=== PATIENT | female | born 1940 | race Hispanic/Latino ===

== ENCOUNTER 2016-11-12 12:09 | Inpatient (IN) | payer MEDICARE, BC ==
--- NOTE | 2016-11-12 12:35 | ED PDOC ---
HPI: SOB/CHF/COPD Time Seen by Provider: 11/12/16 12:15 Chief Complaint (Nursing): Shortness Of Breath Chief Complaint (Provider): shortness of breath History Per: Patient History/Exam Limitations: no limitations Onset/Duration Of Symptoms: Days Additional Complaint(s): Beverly Copeland is a 76 year old female, with a previous medical history of CAD , COPD and diabetes, who presents to the ED with complaints of shortness of breath on exertion associated with easy fatigue worsening over the past few days. Patient denies any coughin, leg pain/swelling, palpitation or chest pain. PMD: Liz Vazquez MD Past Medical History Reviewed: Historical Data, Nursing Documentation, Vital Signs Vital Signs: Last Vital Signs Temp 98.4 F 11/12/16 12:12 Pulse 114 H 11/12/16 12:12 Resp 18 11/12/16 12:12 BP 113/74 11/12/16 12:12 Pulse Ox 98 11/12/16 12:37 - Medical History PMH: CAD, COPD, Diabetes, HTN - Surgical History Surgical History: CABG, Coronary Stent - Family History Family History: States: Unknown Family Hx - Home Medications Home Medications: Ambulatory Orders Medication Instructions Recorded Moxifloxacin Hydrochloride [Avelox] 400 mg PO DAILY #7 tab 11/11/14 - Allergies Allergies/Adverse Reactions: Allergies Allergy/AdvReac Type Severity Reaction Status Date / Time No Known Allergies Allergy Verified 11/11/14 10:33 Review of Systems ROS Statement: Except As Marked, All Systems Reviewed And Found Negative Cardiovascular: Negative for: Chest Pain, Palpitations Respiratory: Positive for: SOB with Exertion. Negative for: Cough Musculoskeletal: Negative for: Leg Pain Physical Exam - Reviewed Nursing Documentation Reviewed: Yes Vital Signs Reviewed: Yes - Physical Exam Appears: Positive for: Well, Non-toxic, No Acute Distress Head Exam: Positive for: ATRAUMATIC, NORMAL INSPECTION, NORMOCEPHALIC Skin: Positive for: Normal Color, Warm, DRY Eye Exam: Positive for: EOMI, Normal appearance, PERRL ENT: Positive for: Normal ENT Inspection Neck: Positive for: Normal, Painless ROM Cardiovascular/Chest: Positive for: Irregularly Irregular Respiratory: Positive for: Rales (bases bilaterally ). Negative for: Accessory Muscle Use, Crackles, Rhonchi, Wheezing, Respiratory Distress Gastrointestinal/Abdominal: Positive for: Normal Exam, Bowel Sounds, Soft Back: Positive for: Normal Inspection Extremity: Positive for: Normal ROM Neurologic/Psych: Positive for: Alert, Oriented - ECG O2 Sat by Pulse Oximetry: 98 (RA) Pulse Ox Interpretation: Normal Medical Decision Making Medical Decision Making: Initial Plan: * PT * Troponin I * labs * PROBNP * EKG * urine dipstick * reevaluation Scribe Attestation: Documented by Cherry Rosen, acting as a scribe for Serge Ashley MD. Provider Scribe Attestation: All medical record entries made by the Scribe were at my direction and personally dictated by me. I have reviewed the chart and agree that the record accurately reflects my personal performance of the history, physical exam, medical decision making, and the department course for this patient. I have also personally directed, reviewed, and agree with the discharge instructions and disposition. Disposition - Clinical Impression Clinical Impression: Atrial fibrillation - Patient ED Disposition Is Patient to be Admitted: Yes - Disposition Disposition Time: 12:53 Condition: FAIR Forms: [employer]zuk[employer] (Telugu) - Pt Status Changed To: Hospital Disposition Of: Inpatient - Admit Certification Admit to Inpatient:: After my assessment, the patient will require hospitalization for at least two midnights. This is because of the severity of symptoms shown, intensity of services needed, and/or the medical risk in this patient being treated as an outpatient. - POA Present On Arrival: None
[2016-11-12 13:00] LABS: BASO % 0.7 % (0.0-2.0); EOS # 0.1 K/uL (0.0-0.7); EOS % 1.5 % (0.0-4.0); HEMOGLOBIN 8.3 g/dL (12.0-16.0); LYMPH # 0.7 K/uL (1.0-4.3); LYMPH % 19.7 % (20.0-40.0); MEAN CELL VOLUME 70.7 fl (81.0-99.0); MEAN CORPUSCULAR HEMOGLOBIN 22.9 pg (27.0-31.0); MEAN CORPUSCULAR HGB CONC 32.4 g/dL (33.0-37.0); MEAN PLATELET VOLUME 9.9 fl (7.2-11.7); MONO # 0.4 K/uL (0.0-0.8); MONO % 12.7 % (0.0-10.0); NEUT # 2.3 K/uL (1.8-7.0); NEUT % 65.4 % (50.0-75.0); NRBC % 0.1 % (0.0-0.0); RBC 3.61 Mil/uL (3.80-5.20); RED CELL DISTRIBUTION WIDTH 17.7 % (11.5-14.5); WHITE BLOOD COUNT 3.5 K/uL (4.8-10.8)
[2016-11-12 13:20] LABS: INR 1.1 (0.9-1.2); PROTHROMBIN TIME 12.4 Seconds (9.8-13.1)
--- NOTE | 2016-11-12 13:21 | CP.PCM.HP ---
History of Present Illness - History of Present Illness History of Present Illness: this 76-year-old female, has come to the emergency room complaining of extreme fatigability and shortness of breath on minimal exertion. She has been a hypertensive and diabetic for more than 20 years and required coronary bypass graft surgery in April 2001. The patient has had chronic exogenous obesity and severe lower back pain. She has taken oral anti-and diabetes as well as oral antihypertensives and an aspirin as well as thyroid replacement. The patient denies any episode of chest pain or pedal edema. She denies any palpitations. On arrival in the emergency room she was found to be in atrial fibrillation with a heart rate of 100 bpm. She was also found to be pale. The patient denies any Elva or murray rectal bleeding. She has no history of peptic ulcer disease. Physical examination shows a pleasant middle aged slightly overweight female quite alert awake and oriented. She was afebrile with a pulse rate of 108 bpm irregularly irregular. Her blood pressure was 124/74 mmHg Her pedal pulses were well felt and there were no carotid bruits. A scar of sternotomy was evident. Her extremities were warm there was no central or peripheral cyanosis or clubbing or icterus. She had mild degree of pallor. The apex was not palpable the first and second heart sounds were normal there was no murmur or gallop there were no rales. Her abdomen was soft liver and spleen are not palpable. A rectal examination was deferred. Her electro-cardiogram showed atrial fibrillation and otherwise normal pattern. Review off her echocardiogram from June 2015 showed preserved left ventricular systolic function. Her labs showed a hemoglobin of 8.3 g with microcytic and hypochromic picture The impression at this time was newly discovered atrial fibrillation in a patient with known coronary artery disease with status post coronary bypass graft surgery. Diabetes and hypertension with a history of hypothyroidism. Microcytic hypochromic anemia suggestive of possible blood loss and iron deficiency possibly related to aspirin use. The patient will be hospitalized and workup will be carried out to evaluate her for the cause of iron deficiency. Stool for ocular blood has been requested a GI evaluation will be requested. Thyroid profile has been requested particularly in light of the fact that she has had atrial fibrillation and significant weight loss. Present on Admission - Present on Admission Any Indicators Present on Admission: No Past Patient History - Past Social History Smoking Status: Never Smoked - CARDIAC Hx Hypertension: Yes - PULMONARY Hx Chronic Obstructive Pulmonary Disease (COPD): Yes - PSYCHIATRIC Hx Substance Use: No - SURGICAL HISTORY Hx Coronary Artery Bypass Graft: Yes Hx Coronary Stent: Yes - ANESTHESIA Hx Anesthesia: Yes Hx Anesthesia Reactions: No Meds Allergies/Adverse Reactions: Allergies Allergy/AdvReac Type Severity Reaction Status Date / Time No Known Allergies Allergy Verified 11/11/14 10:33 Results - Vital Signs Recent Vital Signs: Last Vital Signs Temp 98.4 F 11/12/16 12:12 Pulse 114 H 11/12/16 12:12 Resp 18 11/12/16 12:12 BP 113/74 11/12/16 12:12 Pulse Ox 98 11/12/16 12:53 - Labs Result Diagrams: 11/12/16 12:50 Labs: Laboratory Results - last 24 hr 11/12/16 12:50 WBC 3.5 L D RBC 3.61 L Hgb 8.3 L Hct 25.5 L MCV 70.7 L D MCH 22.9 L MCHC 32.4 L RDW 17.7 H Plt Count 135 MPV 9.9 Neut % (Auto) 65.4 Lymph % (Auto) 19.7 L [place] % (Auto) 12.7 H Eos % (Auto) 1.5 Baso % (Auto) 0.7 Neut # 2.3 Lymph # 0.7 L [place] # 0.4 Eos # 0.1 Baso # 0.0
[2016-11-12 14:01] LABS: ALB/GLOB RATIO 1.6 (1.0-2.1); ALT/SGPT 34 U/L (9-52); AST/SGOT 29 U/L (14-36); BLOOD UREA NITROGEN 12 mg/dl (7-17); CALCIUM 9.5 mg/dL (8.4-10.2); GFR AFRICAN-AMERICAN 53; GFR NON-AFRICAN AMERICAN 44
[2016-11-12 14:12] LABS: B-TYPE NATRIURETIC PEPTIDE 1490 pg/ml (0-900)
[2016-11-12 14:16] LABS: T4 9.86 ug/dl (5.5-11.0)
[2016-11-12] MEDS ORDERED: Potassium Chloride 20 mEq ER Tab PO ONE ×2 (14:20→14:29)
[2016-11-12 14:30] LABS: T3 0.697 nmol/L (1.49-2.60)
[2016-11-13 08:26] LABS: BLOOD UREA NITROGEN 10 mg/dl (7-17); CALCIUM 9.2 mg/dL (8.4-10.2); GFR AFRICAN-AMERICAN > 60; GFR NON-AFRICAN AMERICAN 54
[2016-11-13 08:46] LABS: MEAN CELL VOLUME 70.2 fl (81.0-99.0); MEAN CORPUSCULAR HEMOGLOBIN 23.4 pg (27.0-31.0); MEAN CORPUSCULAR HGB CONC 33.3 g/dL (33.0-37.0); RBC 3.43 Mil/uL (3.80-5.20); RED CELL DISTRIBUTION WIDTH 17.5 % (11.5-14.5); WHITE BLOOD COUNT 3.8 K/uL (4.8-10.8)
[2016-11-13] MEDS ORDERED: LOSARTAN PO SCH (09:00)
[2016-11-13] MEDS ORDERED: HYDROCHLOROTHIAZIDE PO SCH (09:00)
[2016-11-13] MEDS ORDERED: HCTZ/Losartan 12.5/50 Tab PO SCH (09:00)
[2016-11-13] MEDS: HCTZ/Losartan 12.5/50 Tab PO SCH (09:08)
[2016-11-13] MEDS ORDERED: Potassium Chloride 20 mEq ER Tab PO ONE (12:15)
--- NOTE | 2016-11-13 12:25 | CP.PCM.PN ---
Subjective - Date & Time of Evaluation Date of Evaluation: 11/13/16 Time of Evaluation: 11:50 - Subjective Subjective: Generally feeling okay Walks to BR and back without any difficulty Telemetry shows HR of 100-120 BPM (A Fib) BP 126/70 mm Hg Had a run of nonsustained VT of 10 mo at 120 BPM (K+ was 3.4 mEq/L) Labs show Hb 8 Gms ( Microcytic, hypochromic) Labs 0n 6/20 showed Hb 12.5 gms (Normocytic) Now WBC and PLTLETs are reduced too Stool OB (Neg first samle) Await iron studies and Retic count Serum B12 requested metoprolol for rate control and Echo tomorrow Objective - Vital Signs/Intake and Output Vital Signs (last 24 hours): Temp Pulse Resp BP Pulse Ox 98.3 F 117 H 18 124/74 96 11/13/16 10:00 11/13/16 10:00 11/13/16 10:00 11/13/16 10:00 11/13/16 10:00 - Medications Medications: Current Medications Amlodipine Besylate (Norvasc) 5 mg PO DAILY [facility] Last Admin: 11/13/16 09:04 Dose: 5 mg Atorvastatin Calcium (Lipitor) 10 mg PO HS [facility] Last Admin: 11/12/16 21:58 Dose: 10 mg Glyburide (Micronase) 5 mg PO DAILY [facility] Last Admin: 11/13/16 09:03 Dose: 5 mg HCTZ/Losartan Potassium (Hyzaar 12.5 Mg-50 Mg) 2 tab PO DAILY [facility] Last Admin: 11/13/16 09:08 Dose: 2 tab Metoprolol Tartrate (Lopressor) 25 mg PO Q12 [facility] Pioglitazone HCl (Actos) 30 mg PO DAILY [facility] Last Admin: 11/13/16 09:03 Dose: 30 mg Sitagliptin Phosphate (Januvia) 100 mg PO DAILY [facility] Last Admin: 11/13/16 09:04 Dose: 100 mg - Labs Labs: 11/13/16 07:00 11/13/16 07:00 PT 12.4 Seconds (9.8-13.1) 11/12/16 12:50 INR 1.1 (0.9-1.2) 11/12/16 12:50
[2016-11-13 12:42] LABS: IRON 29 ug/dL (37-170)
[2016-11-13 12:46] LABS: % IRON SATURATION 10 % (20-55); TOTAL IRON BINDING CAPACITY 284 ug/dL (250-450)
--- NOTE | 2016-11-13 13:17 | CARD ---
APPROVED REPORT EKG Measurement Heart [id number] <Conclusion> Atrial fibrillation Nonspecific ST abnormality Abnormal ECG
--- NOTE | 2016-11-14 07:46 | CP.PCM.PN ---
Subjective - Date & Time of Evaluation Date of Evaluation: 11/14/16 Time of Evaluation: 07:40 - Subjective Subjective: Has no symptoms, ( Pt mostly room confined) HR 80-100 BPM (A Fib) BP 126/74 mm Hg No rales, no gallop JVP flat Low Fe with low Fe saturation and Microcytosis point to Fe deficiency S B12 level normal Elevated Retic count points to normal marrow response One stool sample was -ve for traces of blood (addl samples requested) GI consult requested Objective - Vital Signs/Intake and Output Vital Signs (last 24 hours): Temp Pulse Resp BP Pulse Ox 98.6 F 96 H 18 107/69 94 L 11/14/16 04:52 11/14/16 04:52 11/14/16 04:52 11/14/16 04:52 11/14/16 04:52 - Medications Medications: Current Medications Amlodipine Besylate (Norvasc) 5 mg PO DAILY [facility] Last Admin: 11/13/16 09:04 Dose: 5 mg Atorvastatin Calcium (Lipitor) 10 mg PO HS [facility] Last Admin: 11/13/16 21:25 Dose: 10 mg Glyburide (Micronase) 5 mg PO DAILY [facility] Last Admin: 11/13/16 09:03 Dose: 5 mg HCTZ/Losartan Potassium (Hyzaar 12.5 Mg-50 Mg) 2 tab PO DAILY [facility] Last Admin: 11/13/16 09:08 Dose: 2 tab Metoprolol Tartrate (Lopressor) 25 mg PO Q12 [facility] Last Admin: 11/13/16 21:25 Dose: 25 mg Pioglitazone HCl (Actos) 30 mg PO DAILY [facility] Last Admin: 11/13/16 09:03 Dose: 30 mg Sitagliptin Phosphate (Januvia) 100 mg PO DAILY [facility] Last Admin: 11/13/16 09:04 Dose: 100 mg - Labs Labs: 11/13/16 07:00 11/13/16 07:00 PT 12.4 Seconds (9.8-13.1) 11/12/16 12:50 INR 1.1 (0.9-1.2) 11/12/16 12:50
[2016-11-14] MEDS: HCTZ/Losartan 12.5/50 Tab PO SCH (09:36)
[2016-11-14] MEDS ORDERED: Chlorhexidine Gluconate 1 APPL/PKT TP ONE (11:12)
--- NOTE | 2016-11-14 11:14 | CP.PCM.CON ---
History of Present Illness - History of Present Illness History of Present Illness: Patient is known to me from the outpatient setting. She is a former cigarette smoker with a diagnosis of COPD, and she also has JENNIFER for which a nCPAP has been prescribed. She has multiple other comorbidities which are all managed medically.She has undergone CABG in the remote past and recently has been complaining of increased SIFUENTES. She was referred to the emergency room where she was found to have new onset atrial fibrillation, but was also found to have a hemoglobin <8.5Gm. She had a CBC done one month prior which was normal at that time. She denies any abdominal pain, nausea, vomiting, melena or hematochezia. She does admit to early satiety which is a new finding. Her CXR does not show any consolidations or effusions at this time. She is presently awaiting further GI evaluation into her microcytic/hypochromic anemia. Past Patient History - Past Social History Smoking Status: Never Smoked - CARDIAC Hx Cardiac Disorders: Yes - PULMONARY Hx Chronic Obstructive Pulmonary Disease (COPD): Yes - HEMATOLOGICAL/ONCOLOGICAL Hx AIDS: No Hx Human Immunodeficiency Virus (HIV): No - MUSCULOSKELETAL/RHEUMATOLOGICAL Hx Falls: No - PSYCHIATRIC Hx Substance Use: No - SURGICAL HISTORY Hx Coronary Artery Bypass Graft: Yes Hx Coronary Stent: Yes - ANESTHESIA Hx Anesthesia: Yes Hx Anesthesia Reactions: No Meds Allergies/Adverse Reactions: Allergies Allergy/AdvReac Type Severity Reaction Status Date / Time No Known Allergies Allergy Verified 11/11/14 10:33 - Medications Medications: Current Medications Amlodipine Besylate (Norvasc) 5 mg PO DAILY [facility] Last Admin: 11/14/16 09:35 Dose: 5 mg Atorvastatin Calcium (Lipitor) 10 mg PO HS [facility] Last Admin: 11/13/16 21:25 Dose: 10 mg Glyburide (Micronase) 5 mg PO DAILY [facility] Last Admin: 11/14/16 09:35 Dose: 5 mg HCTZ/Losartan Potassium (Hyzaar 12.5 Mg-50 Mg) 2 tab PO DAILY [facility] Last Admin: 11/14/16 09:36 Dose: 2 tab Metoprolol Tartrate (Lopressor) 25 mg PO Q12 [facility] Last Admin: 11/14/16 09:35 Dose: 25 mg Pioglitazone HCl (Actos) 30 mg PO DAILY [facility] Last Admin: 11/14/16 09:35 Dose: 30 mg Sitagliptin Phosphate (Januvia) 100 mg PO DAILY [facility] Last Admin: 11/14/16 09:36 Dose: 100 mg Results - Vital Signs Recent Vital Signs: Last Vital Signs Temp 98.2 F 11/14/16 10:00 Pulse 98 H 11/14/16 10:00 Resp 18 11/14/16 10:00 BP 112/72 11/14/16 10:00 Pulse Ox 97 11/14/16 10:00 - Labs Result Diagrams: 11/13/16 07:00 11/13/16 07:00 Labs: Laboratory Results - last 24 hr 11/13/16 11/13/16 11/13/16 11:51 12:00 12:00 Retic Count Cancelled POC Glucose (mg/dL) 181 H Iron 29 L TIBC 284 % Saturation 10 L Vitamin B12 Stool Occult Blood 11/13/16 11/13/16 11/13/16 12:00 15:46 15:51 Retic Count 2.4 H POC Glucose (mg/dL) 170 H Iron TIBC % Saturation Vitamin B12 772 Stool Occult Blood 11/13/16 11/13/16 11/14/16 17:12 21:00 05:11 Retic Count POC Glucose (mg/dL) 111 H 82 Iron TIBC % Saturation Vitamin B12 Stool Occult Blood Negative Assessment & Plan (1) Anemia Status: Acute Priority: High (2) 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
--- NOTE | 2016-11-14 12:46 | CP.PCM.CON ---
<Kaye Linn - Last Filed: 11/14/16 14:32> History of Present Illness - History of Present Illness History of Present Illness: GI Fellow PGY4 Consult Note This is a 76yF with a pmhx HTN, DM, CAD s/p CABG, COPD, JENNIFER on CPAP, HLD pw co weakness and SOB for a 3 weeks. Pt was found to have iron deficiency microcytic anemia in the ER and was also in A.Fib. Pt is on aspirin 325mg daily for many years and denies any Ibuprofen, Advil or Aleve use. Pt denies any prior hx of GI bleed. Pt had a normal Hgb one month prior and Hgb now is 8.0. No reported melena, hematochezia, hemetemesis. Pt report that over the last year she has had 14pound unintentional weight loss due to indigestion, heartburn, early satiety and at times episodes of vomiting but denies any abdominal or epigastric pain. Pt never had an EGD but has had routine colonoscopy last one was done last year at [facility], per pt only hemorrhoids and benign polyps. ROS: A 12pt ROS was obtained and was negative except as above PmHX: As stated in HPI PsHx: CABG 2001, Colonoscopy FHx: Negative for colon cancer SHx: Negative for alcohol or illicit drugs, former tobacco use Past Patient History - Past Social History Smoking Status: Never Smoked - CARDIAC Hx Cardiac Disorders: Yes - PULMONARY Hx Chronic Obstructive Pulmonary Disease (COPD): Yes - HEMATOLOGICAL/ONCOLOGICAL Hx AIDS: No Hx Human Immunodeficiency Virus (HIV): No - MUSCULOSKELETAL/RHEUMATOLOGICAL Hx Falls: No - PSYCHIATRIC Hx Substance Use: No - SURGICAL HISTORY Hx Coronary Artery Bypass Graft: Yes Hx Coronary Stent: Yes - ANESTHESIA Hx Anesthesia: Yes Hx Anesthesia Reactions: No Meds Allergies/Adverse Reactions: Allergies Allergy/AdvReac Type Severity Reaction Status Date / Time No Known Allergies Allergy Verified 11/11/14 10:33 - Medications Medications: Current Medications Amlodipine Besylate (Norvasc) 5 mg PO DAILY [facility] Last Admin: 11/14/16 09:35 Dose: 5 mg Atorvastatin Calcium (Lipitor) 10 mg PO HS [facility] Last Admin: 11/13/16 21:25 Dose: 10 mg Bisacodyl (Dulcolax) 10 mg PO ONCE ONE Stop: 11/14/16 19:01 Glyburide (Micronase) 5 mg PO DAILY [facility] Last Admin: 11/14/16 09:35 Dose: 5 mg HCTZ/Losartan Potassium (Hyzaar 12.5 Mg-50 Mg) 2 tab PO DAILY [facility] Last Admin: 11/14/16 09:36 Dose: 2 tab Metoprolol Tartrate (Lopressor) 25 mg PO Q12 [facility] Last Admin: 11/14/16 09:35 Dose: 25 mg Pioglitazone HCl (Actos) 30 mg PO DAILY [facility] Last Admin: 11/14/16 09:35 Dose: 30 mg Polyethylene Glycol/Electrolytes (Golytely) 4,000 ml PO ONCE ONE Stop: 11/14/16 13:01 Last Admin: 11/14/16 12:22 Dose: 4,000 ml Sitagliptin Phosphate (Januvia) 100 mg PO DAILY [facility] Last Admin: 11/14/16 09:36 Dose: 100 mg Physical Exam - Constitutional Appears: Well, Non-toxic, No Acute Distress - Head Exam Head Exam: ATRAUMATIC, NORMAL INSPECTION, NORMOCEPHALIC - Eye Exam Eye Exam: EOMI, Normal appearance, PERRL Pupil Exam: PERRL - ENT Exam ENT Exam: Mucous Membranes Moist, Normal Exam - Neck Exam Neck exam: Positive for: Full Rom, Normal Inspection - Respiratory Exam Respiratory Exam: Clear to Auscultation Bilateral, NORMAL BREATHING PATTERN - Cardiovascular Exam Cardiovascular Exam: Irregular Rhythm, +S1, +S2 - GI/Abdominal Exam GI & Abdominal Exam: Normal Bowel Sounds, Soft. absent: Organomegaly, Tenderness - Rectal Exam Additional comments: Brown stool - Back Exam Back exam: NORMAL INSPECTION - Neurological Exam Neurological exam: Alert, Oriented x3 - Psychiatric Exam Psychiatric exam: Normal Affect, Normal Mood - Skin Skin Exam: Dry, Intact, Pallor, Warm Results - Vital Signs Recent Vital Signs: Last Vital Signs Temp 97.9 F 11/14/16 12:00 Pulse 87 11/14/16 12:00 Resp 18 11/14/16 12:00 BP 101/60 11/14/16 12:00 Pulse Ox 97 11/14/16 12:00 - Labs Result Diagrams: 11/13/16 07:00 11/13/16 07:00 Labs: Laboratory Results - last 24 hr 11/13/16 11/13/16 11/13/16 12:00 15:46 15:51 POC Glucose (mg/dL) 170 H Iron 29 L TIBC 284 % Saturation 10 L Vitamin B12 772 Stool Occult Blood 11/13/16 11/13/16 11/14/16 17:12 21:00 05:11 POC Glucose (mg/dL) 111 H 82 Iron TIBC % Saturation Vitamin B12 Stool Occult Blood Negative 11/14/16 11:26 POC Glucose (mg/dL) 150 H Iron TIBC % Saturation Vitamin B12 Stool Occult Blood Assessment & Plan - Assessment and Plan (Free Text) Assessment: This is a 76yF pw co of weakness and SOB and was found to be in AFib and anemic with Hgb 8.3 on admission. 1. Microcytic Iron Deficiency Anemia r/o GI bleed 2. New onset Afib 3. HTN 4. CAD s/p CABG 5. COPD 6. JENNIFER Plan: -Anemia, Hgb 8.0, no active bleeding, on rectal exam light brown stool no melena or hematochezia, hemodynamically stable -Plan for EGD/Colonoscopy tomorrow, consent signed and in chart -Ordered clear liquid diet today, NPO after midnight -Golytely and Dulcolax today -Continue to hold aspirin or OAC at this time -Afib rate controlled on po metoprolol -Will continue to follow pt closely <Leilani Cobb MD - Last Filed: 11/14/16 19:36> Meds - Medications Medications: Current Medications Amlodipine Besylate (Norvasc) 5 mg PO DAILY [facility] Last Admin: 11/14/16 09:35 Dose: 5 mg Atorvastatin Calcium (Lipitor) 10 mg PO HS [facility] Last Admin: 11/13/16 21:25 Dose: 10 mg Glyburide (Micronase) 5 mg PO DAILY [facility] Last Admin: 11/14/16 09:35 Dose: 5 mg HCTZ/Losartan Potassium (Hyzaar 12.5 Mg-50 Mg) 2 tab PO DAILY [facility] Last Admin: 11/14/16 09:36 Dose: 2 tab Metoprolol Tartrate (Lopressor) 25 mg PO Q12 [facility] Last Admin: 11/14/16 09:35 Dose: 25 mg Pioglitazone HCl (Actos) 30 mg PO DAILY [facility] Last Admin: 11/14/16 09:35 Dose: 30 mg Sitagliptin Phosphate (Januvia) 100 mg PO DAILY [facility] Last Admin: 11/14/16 09:36 Dose: 100 mg Results - Vital Signs Recent Vital Signs: Last Vital Signs Temp 97.6 F 11/14/16 15:38 Pulse 95 H 11/14/16 15:38 Resp 20 11/14/16 15:38 BP 109/67 11/14/16 15:38 Pulse Ox 98 11/14/16 15:38 - Labs Result Diagrams: 11/13/16 07:00 11/13/16 07:00 Labs: Laboratory Results - last 24 hr 11/12/16 11/13/16 11/13/16 13:34 17:12 20:11 POC Glucose (mg/dL) Ferritin 107.0 Stool Occult Blood Negative Negative 11/13/16 11/14/16 11/14/16 21:00 05:11 11:26 POC Glucose (mg/dL) 111 H 82 150 H Ferritin Stool Occult Blood 11/14/16 16:12 POC Glucose (mg/dL) 106 Ferritin Stool Occult Blood Attending/Attestation - Attestation I have personally seen and examined this patient.: Yes I have fully participated in the care of the patient.: Yes I have reviewed all pertinent clinical information: Yes Notes (Text): 11/14/16 19:32 Patient seen with GI fellow on rounds. This is a 76 yr old F presenting with weakness and SOB and was found to be in AFib and new ponset iron deficiency microcytic anemia. History of CABG on high dose ASA daily. Denies dark stools, epigastric pain, rectal bleeding. Also states lost 14 lbs over course of last year and has early satiety. Will schedule bi directional luminal exam as inpatient due to above reasons and rule out malignancy and or ulcer. Clear liquid diet and start prep for EGD/ Colonoscopy in am. risks, benefits and alternatives explained to the patient. A fib is rate controlled. NPO past midnight
[2016-11-14] MEDS ORDERED: Peg-Electrolyte Oral Soln 4L (Golytely) PO ONE (13:00)
[2016-11-14] MEDS ORDERED: Bisacodyl 5mg EC Tab PO ONE ×3 (14:11→21:00)
--- NOTE | 2016-11-14 14:55 | CARD ---
APPROVED REPORT EKG Measurement Heart [id number] <Conclusion> Atrial fibrillation with rapid ventricular response Possible anterior infarct, age undetermined Abnormal ECG
--- NOTE | 2016-11-14 19:54 | CARD ---
APPROVED REPORT EXAM: Two-dimensional and M-mode echocardiogram with Doppler and color Doppler. Other Information Quality : GoodRhythm : Atrial Flutter INDICATION Atrial Fibrillation 2D DIMENSIONS IVSd0.91 (0.7-1.1cm)LVDd4.23 (3.9-5.9cm) LVOT Diameter1.72 (1.8-2.4cm)PWd0.61 (0.7-1.1cm) IVSs1.07 (0.8-1.2cm)LVDs3.39 (2.5-4.0cm) FS (%) 19.7 %PWs1.08 (0.8-1.2cm) M-Mode DIMENSIONS Left Atrium (MM)5.03 (2.5-4.0cm)IVSd0.79 (0.7-1.1cm) Aortic Root3.15 (2.2-3.7cm)LVDd5.44 (4.0-5.6cm) Aortic Cusp Exc.2.00 (1.5-2.0cm)PWd0.85 (0.7-1.1cm) IVSs0.82 cmFS (%) 20 % LVDs4.35 (2.0-3.8cm)PWs1.29 cm Mitral Valve E/A ratio0.0 TDI E/Lateral E'0.0E/Medial E'0.0 Pulmonary Valve PV Peak Ybaqowag88.1cm/s Tricuspid Valve TR Peak [id number]/sRAP [id number] Peak Gr.32mmHg [id number] LEFT VENTRICLE The left ventricle is normal size. There is normal left ventricular wall thickness. The left ventricular function is low normal. The left ventricular ejection fraction is 50% There is normal LV segmental wall motion. Not reported due to atrial fibrillation No left ventricle thrombus noted on this study. There is no ventricular septal defect visualized. There is no left ventricular aneurysm. There is no mass noted in the left ventricle. RIGHT VENTRICLE The right ventricle is normal size. There is normal right ventricular wall thickness. The right ventricular systolic function is normal. ATRIA The left atrium is severely dilated. The right atrium is moderately dilated. The interatrial septum is intact with no evidence for an atrial septal defect. AORTIC VALVE The aortic valve is moderately sclerotic. No aortic regurgitation is present. There is no aortic valvular stenosis. There is no aortic valvular vegetation. MITRAL VALVE Mitral annular calcification is moderate. There is no evidence of mitral valve prolapse. There is no mitral valve stenosis. Mitral regurgitation is mild to moderate. TRICUSPID VALVE The tricuspid valve is normal in structure and function. There is severe tricuspid regurgitation. Right ventricular systolic pressure is estimated at 40-50 mmHg. There is no tricuspid valve prolapse or vegetation. There is no tricuspid valve stenosis. PULMONIC VALVE The pulmonary valve is normal in structure and function. There is no pulmonic valvular regurgitation. There is no pulmonic valvular stenosis. GREAT VESSELS The aortic root is normal in size. The ascending aorta is normal in size. The IVC is normal in size and collapses >50% with inspiration. PERICARDIAL EFFUSION The pericardium appears normal. There is no pleural effusion. <Conclusion> Low Normal LV systolic function LVEF 50% Aortic Valve Sclerosis Mitral Annular Calcification Bi-atrial enlargement Mild to Moderate Mitral Regurgitation Severe Tricuspid Regurgitation with normal PAP
[2016-11-15 06:33] LABS: BASO % 1.2 % (0.0-2.0); EOS # 0.1 K/uL (0.0-0.7); EOS % 1.9 % (0.0-4.0); HEMOGLOBIN 8.1 g/dL (12.0-16.0); LYMPH # 0.8 K/uL (1.0-4.3); LYMPH % 19.9 % (20.0-40.0); MEAN CELL VOLUME 69.7 fl (81.0-99.0); MEAN CORPUSCULAR HGB CONC 32.9 g/dL (33.0-37.0); MEAN PLATELET VOLUME 9.4 fl (7.2-11.7); MONO # 0.5 K/uL (0.0-0.8); MONO % 12.3 % (0.0-10.0); NEUT # 2.5 K/uL (1.8-7.0); NEUT % 64.7 % (50.0-75.0); NRBC % 0.4 % (0.0-0.0); RBC 3.51 Mil/uL (3.80-5.20); RED CELL DISTRIBUTION WIDTH 17.3 % (11.5-14.5); WHITE BLOOD COUNT 3.8 K/uL (4.8-10.8)
[2016-11-15 06:40] LABS: ALB/GLOB RATIO 1.5 (1.0-2.1); ALBUMIN 3.6 g/dL (3.5-5.0); CALCIUM 8.9 mg/dL (8.4-10.2)
[2016-11-15 06:53] LABS: INR 1.1 (0.9-1.2); PROTHROMBIN TIME 12.3 Seconds (9.8-13.1)
--- NOTE | 2016-11-15 09:24 | CP.PCM.PN ---
Subjective - Date & Time of Evaluation Date of Evaluation: 11/15/16 Time of Evaluation: 09:15 - Subjective Subjective: Generally feeling okay ( Pt has been mostly room bound) HR 70-80 BPM BP 120/70 mm Hg Reviewed Echo images LV wall motion seems normal MR + TR +++ (On echo od 06/2015 , minor TR) PA syst pressure higher with IVC more dilated than in 06/2015. Will discuss with Dr. Vazquez Marked jump in Creatinin with bowel prep Will start hydration Objective - Vital Signs/Intake and Output Vital Signs (last 24 hours): Temp Pulse Resp BP Pulse Ox 98.3 F 96 H 18 100/62 96 11/15/16 08:00 11/15/16 08:00 11/15/16 08:00 11/15/16 08:00 11/15/16 08:00 - Medications Medications: Current Medications Amlodipine Besylate (Norvasc) 5 mg PO DAILY [facility] Last Admin: 11/14/16 09:35 Dose: 5 mg Atorvastatin Calcium (Lipitor) 10 mg PO HS [facility] Last Admin: 11/14/16 21:10 Dose: 10 mg Glyburide (Micronase) 5 mg PO DAILY [facility] Last Admin: 11/14/16 09:35 Dose: 5 mg HCTZ/Losartan Potassium (Hyzaar 12.5 Mg-50 Mg) 2 tab PO DAILY [facility] Last Admin: 11/14/16 09:36 Dose: 2 tab Metoprolol Tartrate (Lopressor) 25 mg PO Q12 [facility] Last Admin: 11/14/16 21:10 Dose: 25 mg Pioglitazone HCl (Actos) 30 mg PO DAILY [facility] Last Admin: 11/14/16 09:35 Dose: 30 mg Sitagliptin Phosphate (Januvia) 100 mg PO DAILY [facility] Last Admin: 11/14/16 09:36 Dose: 100 mg - Labs Labs: 11/15/16 05:15 11/15/16 05:15 PT 12.3 Seconds (9.8-13.1) 11/15/16 05:15 INR 1.1 (0.9-1.2) 11/15/16 05:15
[2016-11-15] MEDS: Sodium Chloride 0.9% 1,000 ML IV SCH (10:07)
[2016-11-15] MEDS: HCTZ/Losartan 12.5/50 Tab PO SCH (10:09)
--- NOTE | 2016-11-15 11:17 | CP.PCM.PN ---
Subjective - Date & Time of Evaluation Date of Evaluation: 11/15/16 Time of Evaluation: 11:14 - Subjective Subjective: Awaiting endoscopyPrepped overnight w/o any evidence of blood in BM's. Echocardiogram shows +++ tricuspid regurgitation with a borderline high eRVSP. I will request HR CT chest and VQ lung scan after initial problem of anemia has been rectified. She is comfortable at rest awaiting today's procedure. I will discuss with Dr Nunes. Objective - Vital Signs/Intake and Output Vital Signs (last 24 hours): Temp Pulse Resp BP Pulse Ox 98.3 F 102 H 18 118/68 96 11/15/16 08:00 11/15/16 10:08 11/15/16 08:00 11/15/16 10:08 11/15/16 08:00 Intake and Output: 11/14/16 11/15/16 23:59 11:59 Intake Total 1000 Balance 1000 - Medications Medications: Current Medications Amlodipine Besylate (Norvasc) 5 mg PO DAILY [facility] Last Admin: 11/15/16 10:08 Dose: 5 mg Atorvastatin Calcium (Lipitor) 10 mg PO HS [facility] Last Admin: 11/14/16 21:10 Dose: 10 mg Glyburide (Micronase) 5 mg PO DAILY [facility] Last Admin: 11/15/16 09:54 Dose: Not Given HCTZ/Losartan Potassium (Hyzaar 12.5 Mg-50 Mg) 2 tab PO DAILY [facility] Last Admin: 11/15/16 10:09 Dose: 2 tab Sodium Chloride (Sodium Chloride 0.9%) 1,000 mls @ 75 mls/hr IV .[id number] [facility] Stop: 11/16/16 09:26 Last Admin: 11/15/16 10:07 Dose: 75 mls/hr Metoprolol Tartrate (Lopressor) 25 mg PO Q12 [facility] Last Admin: 11/15/16 10:08 Dose: 25 mg Pioglitazone HCl (Actos) 30 mg PO DAILY [facility] Last Admin: 11/15/16 09:55 Dose: Not Given Sitagliptin Phosphate (Januvia) 100 mg PO DAILY [facility] Last Admin: 11/15/16 09:54 Dose: Not Given - Labs Labs: 11/15/16 05:15 11/15/16 05:15 PT 12.3 Seconds (9.8-13.1) 11/15/16 05:15 INR 1.1 (0.9-1.2) 11/15/16 05:15 Assessment and Plan (1) Anemia Status: Acute (2) 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 (3) Atrial fibrillation Status: Acute
[2016-11-15] MEDS ORDERED: Sodium Chloride 0.9% 1,000 ML IV ONE (13:53)
[2016-11-15] MEDS ORDERED: Propofol 10 mg/ml Inj (20 ML) ONE (13:55)
[2016-11-15] MEDS ORDERED: ePHEDrine 50 mg/ml Inj ONE (14:23)
[2016-11-16] MEDS: Sodium Chloride 0.9% 1,000 ML IV SCH (06:23)
[2016-11-16 06:35] LABS: HEMOGLOBIN 7.4 g/dL (12.0-16.0); MEAN CELL VOLUME 70.5 fl (81.0-99.0); MEAN CORPUSCULAR HEMOGLOBIN 22.6 pg (27.0-31.0); MEAN CORPUSCULAR HGB CONC 32.1 g/dL (33.0-37.0); RBC 3.28 Mil/uL (3.80-5.20); RED CELL DISTRIBUTION WIDTH 17.8 % (11.5-14.5); WHITE BLOOD COUNT 3.7 K/uL (4.8-10.8)
[2016-11-16 06:49] LABS: ALB/GLOB RATIO 1.5 (1.0-2.1); ALBUMIN 3.3 g/dL (3.5-5.0); CALCIUM 8.2 mg/dL (8.4-10.2)
[2016-11-16] MEDS: HCTZ/Losartan 12.5/50 Tab PO SCH (08:27)
[2016-11-16] MEDS ORDERED: Sodium Chloride 0.9% 1,000 ML IV SCH (09:24)
--- NOTE | 2016-11-16 09:39 | CP.PCM.PN ---
Subjective - Date & Time of Evaluation Date of Evaluation: 11/16/16 Time of Evaluation: 09:00 - Subjective Subjective: Has no new symptoms Endoscopy and colonoscopy findings were innocent No source of bleeding found A Fib at 80-90 BPM BP 126/70 mm Hg No signs of CHF Azotemia following bowel prep still persists after 24 hrs of IV hydration at 75ml/hr Will continue IV hydration at 50 ml/hr for another day (Pt advised to drink extrsa fluids) HB 7.5 gms (? after hydration) Mild degree of thrombocytopenia and leucocytopenia has been present since admission Hematologic eval requested today Have discussed Severe TR seen on echo not seen on echo of 06/[address] angio of chest will have to wait till azotemia resolves Objective - Vital Signs/Intake and Output Vital Signs (last 24 hours): Temp Pulse Resp BP Pulse Ox 98.0 F 92 H 18 119/68 97 11/16/16 08:00 11/16/16 08:28 11/16/16 08:00 11/16/16 08:28 11/16/16 08:00 - Medications Medications: Current Medications Amlodipine Besylate (Norvasc) 5 mg PO DAILY [facility] Last Admin: 11/16/16 08:28 Dose: 5 mg Atorvastatin Calcium (Lipitor) 10 mg PO HS [facility] Last Admin: 11/15/16 21:05 Dose: 10 mg Glyburide (Micronase) 5 mg PO DAILY [facility] Last Admin: 11/16/16 08:26 Dose: 5 mg HCTZ/Losartan Potassium (Hyzaar 12.5 Mg-50 Mg) 2 tab PO DAILY [facility] Last Admin: 11/16/16 08:27 Dose: 2 tab Metoprolol Tartrate (Lopressor) 25 mg PO Q12 [facility] Last Admin: 11/16/16 08:26 Dose: 25 mg Pioglitazone HCl (Actos) 30 mg PO DAILY [facility] Last Admin: 11/16/16 08:27 Dose: 30 mg Sitagliptin Phosphate (Januvia) 100 mg PO DAILY [facility] Last Admin: 11/16/16 08:27 Dose: 100 mg - Labs Labs: 11/16/16 05:20 11/16/16 05:20 PT 12.3 Seconds (9.8-13.1) 11/15/16 05:15 INR 1.1 (0.9-1.2) 11/15/16 05:15
--- NOTE | 2016-11-16 11:13 | CP.PCM.PN ---
<Kaye Linn - Last Filed: 11/16/16 13:06> Subjective - Date & Time of Evaluation Date of Evaluation: 11/16/16 Time of Evaluation: 10:00 - Subjective Subjective: GI Fellow PGY4 Progress Note Pt seen and evaluated at bedside, she reports feeling a little better since admission. No issues overnight, tolerated EGD/colonoscopy well. Pt continues to deny any signs of rectal bleeding, no hematochezia, melena, or hemtemesis. Discussed with pt the results of EGD/colonoscopy with no source of bleeding, no ulcers or angiodysplasia found on luminal exam. Recommended PPI use for gastritis and okay to resume Aspirin per our perspective. Pt denies CP, SOB or palpitations at this time. ROS: A 12pt ROS was obtained and was negative except as above. Objective - Vital Signs/Intake and Output Vital Signs (last 24 hours): Temp Pulse Resp BP Pulse Ox 98.0 F 92 H 18 119/68 97 11/16/16 08:00 11/16/16 08:28 11/16/16 08:00 11/16/16 08:28 11/16/16 08:00 - Medications Medications: Current Medications Amlodipine Besylate (Norvasc) 5 mg PO DAILY [facility] Last Admin: 11/16/16 08:28 Dose: 5 mg Atorvastatin Calcium (Lipitor) 10 mg PO HS [facility] Last Admin: 11/15/16 21:05 Dose: 10 mg Glyburide (Micronase) 5 mg PO DAILY [facility] Last Admin: 11/16/16 08:26 Dose: 5 mg HCTZ/Losartan Potassium (Hyzaar 12.5 Mg-50 Mg) 2 tab PO DAILY [facility] Last Admin: 11/16/16 08:27 Dose: 2 tab Metoprolol Tartrate (Lopressor) 25 mg PO Q12 [facility] Last Admin: 11/16/16 08:26 Dose: 25 mg Pantoprazole Sodium (Protonix Ec Tab) 40 mg PO DAILY [facility] Pioglitazone HCl (Actos) 30 mg PO DAILY [facility] Last Admin: 11/16/16 08:27 Dose: 30 mg Sitagliptin Phosphate (Januvia) 100 mg PO DAILY [facility] Last Admin: 11/16/16 08:27 Dose: 100 mg - Labs Labs: 11/16/16 05:20 11/16/16 05:20 PT 12.3 Seconds (9.8-13.1) 11/15/16 05:15 INR 1.1 (0.9-1.2) 11/15/16 05:15 - Constitutional Appears: No Acute Distress, Younger Than Stated Age - Head Exam Head Exam: ATRAUMATIC, NORMAL INSPECTION, NORMOCEPHALIC - Eye Exam Eye Exam: EOMI, Normal appearance, PERRL Pupil Exam: PERRL - ENT Exam ENT Exam: Mucous Membranes Moist, Normal Exam - Neck Exam Neck Exam: Full ROM, Normal Inspection - Respiratory Exam Respiratory Exam: Clear to Ausculation Bilateral, NORMAL BREATHING PATTERN - Cardiovascular Exam Cardiovascular Exam: Irregular Rhythm, +S1, +S2 - GI/Abdominal Exam GI & Abdominal Exam: Soft, Normal Bowel Sounds. absent: Distended, Tenderness, Organomegaly - Rectal Exam Rectal Exam: Deferred - Extremities Exam Extremities Exam: Full ROM, Normal Inspection - Back Exam Back Exam: NORMAL INSPECTION - Neurological Exam Neurological Exam: Alert, Awake, Oriented x3 - Psychiatric Exam Psychiatric exam: Normal Affect, Normal Mood - Skin Skin Exam: Dry, Intact, Pallor, Pallor, Warm Assessment and Plan - Assessment and Plan (Free Text) Assessment: This is a 76yF pw co of weakness and SOB and was found to be in AFib and anemic with Hgb 8.3 on admission. 1. Microcytic Iron Deficiency Anemia 2. NICOLE 3. Gastritis 4. New onset Afib 5. HTN 6. CAD s/p CABG 7. COPD 8. JENNIFER Plan: -Anemia, Hgb 7.2, no active bleeding, hemodynamically stable -s/p EGD/Colonoscopy: no endoscopic evidence of bleeding, okay to resume Aspirin -Gastritis, start Protonix 40mg po daily, pathology results pending to r/o Hpylori -Recommend Hematology consult for anemia <Leilani Cobb MD - Last Filed: 11/16/16 14:01> Objective - Vital Signs/Intake and Output Vital Signs (last 24 hours): Temp Pulse Resp BP Pulse Ox 97.9 F 96 H 18 116/68 100 11/16/16 12:00 11/16/16 12:00 11/16/16 12:00 11/16/16 12:00 11/16/16 12:00 - Medications Medications: Current Medications Amlodipine Besylate (Norvasc) 5 mg PO DAILY [facility] Last Admin: 11/16/16 08:28 Dose: 5 mg Atorvastatin Calcium (Lipitor) 10 mg PO HS [facility] Last Admin: 11/15/16 21:05 Dose: 10 mg Glyburide (Micronase) 5 mg PO DAILY [facility] Last Admin: 11/16/16 08:26 Dose: 5 mg HCTZ/Losartan Potassium (Hyzaar 12.5 Mg-50 Mg) 2 tab PO DAILY [facility] Last Admin: 11/16/16 08:27 Dose: 2 tab Metoprolol Tartrate (Lopressor) 25 mg PO Q12 [facility] Last Admin: 11/16/16 08:26 Dose: 25 mg Pantoprazole Sodium (Protonix Ec Tab) 40 mg PO DAILY [facility] Pioglitazone HCl (Actos) 30 mg PO DAILY [facility] Last Admin: 11/16/16 08:27 Dose: 30 mg Sitagliptin Phosphate (Januvia) 100 mg PO DAILY [facility] Last Admin: 11/16/16 08:27 Dose: 100 mg - Labs Labs: 11/16/16 05:20 11/16/16 05:20 PT 12.3 Seconds (9.8-13.1) 11/15/16 05:15 INR 1.1 (0.9-1.2) 11/15/16 05:15 Attending/Attestation - Attestation I have personally seen and examined this patient.: Yes I have fully participated in the care of the patient.: Yes I have reviewed all pertinent clinical information, including history, physical exam and plan: Yes Notes (Text): 11/16/16 13:55 Patient seen and examined with GI fellow at bedside. This is a 76 yr old F admitted with symptomatic anemia and new found A fib rate controlled. GI consult was initiated for anemia and weight loss. s/p EGd that showed superficial ulcerations in antrum and pre pyllorus and erosive gastritis. Scope was traversed to thrid portion of duodenum without any findings of AVM, bleeding ulcers or diuelefuoy lesions. Colonoscopy had excellent prep and exam till terminal ileum failed to show any mass lesions or ulcertaions or diverticulosis. Also with new NICLOE likely due to dehydration from from prep. Continue IVf as cardiac status permitting. Hematology consult to follow. May restart ASA if needed. Follow up gastric biopsy results. Will consider outpatient capsule study if hematology work up is negative. Occult blood negative test. Discussed with Dr Trey Nunes. Thank you for letting us participate in the care of your patient
--- NOTE | 2016-11-16 11:16 | CP.PCM.PN ---
Subjective - Date & Time of Evaluation Date of Evaluation: 11/16/16 Time of Evaluation: 11:13 - Subjective Subjective: Discussed with Dr Nunes regarding worsened valvular regurgitation. Endoscopy reports from yesterday reviewed. Will request HRCT chest and VQ lung scan as part of workup for increased PA pressures. Labs added will include ANUPAMA, SACE and ESR. Objective - Vital Signs/Intake and Output Vital Signs (last 24 hours): Temp Pulse Resp BP Pulse Ox 98.0 F 92 H 18 119/68 97 11/16/16 08:00 11/16/16 08:28 11/16/16 08:00 11/16/16 08:28 11/16/16 08:00 Intake and Output: 11/15/16 11/16/16 23:59 11:59 Intake Total 875 Balance 875 - Medications Medications: Current Medications Amlodipine Besylate (Norvasc) 5 mg PO DAILY [facility] Last Admin: 11/16/16 08:28 Dose: 5 mg Atorvastatin Calcium (Lipitor) 10 mg PO HS [facility] Last Admin: 11/15/16 21:05 Dose: 10 mg Glyburide (Micronase) 5 mg PO DAILY [facility] Last Admin: 11/16/16 08:26 Dose: 5 mg HCTZ/Losartan Potassium (Hyzaar 12.5 Mg-50 Mg) 2 tab PO DAILY [facility] Last Admin: 11/16/16 08:27 Dose: 2 tab Metoprolol Tartrate (Lopressor) 25 mg PO Q12 [facility] Last Admin: 11/16/16 08:26 Dose: 25 mg Pantoprazole Sodium (Protonix Ec Tab) 40 mg PO DAILY [facility] Pioglitazone HCl (Actos) 30 mg PO DAILY [facility] Last Admin: 11/16/16 08:27 Dose: 30 mg Sitagliptin Phosphate (Januvia) 100 mg PO DAILY [facility] Last Admin: 11/16/16 08:27 Dose: 100 mg - Labs Labs: 11/16/16 05:20 11/16/16 05:20 PT 12.3 Seconds (9.8-13.1) 11/15/16 05:15 INR 1.1 (0.9-1.2) 11/15/16 05:15 Assessment and Plan (1) Anemia Status: Acute (2) 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 (3) Atrial fibrillation Status: Acute
--- NOTE | 2016-11-16 12:22 | CP.PCM.CON ---
History of Present Illness - History of Present Illness History of Present Illness: This is a 76 yrs old female who had a h/o obesity, DM , Htn, CAD with CABG done several years ago, She has been on aspirin since. She was admitted for anmia the hgb 12.5 gms 1 month ago was now 8.2gms. She gives no h/o bleeding from any site. She has lost about 14 lbs over the last 5 months, unintentionally. She had a good appetite but was not eating iron rich foods, The only discomfort she complains about is in the left flank area, but no severe pain. She does not give a h/o ever being told that sh was anemic, but her brother is anemic. She is not aware of whether her parents had anemia or not. She is [place]. She had an endoscopy and colonoscopy done but no bleeding was seen, In the hospital she has consistantly had low hgb of 7.5 to 8.5 with MCV of 70., platelets of 112-135 and WBC from 3.5 - 3.8. Chemistry showed a slightly elevated BUN and creatinine, She also had new onset A Fib on admission She was a smoker 1PPD for almost 20 yrs, but then stopped. Drinks very occasionally Past Patient History - Past Social History Smoking Status: Never Smoked - CARDIAC Hx Cardiac Disorders: Yes - PULMONARY Hx Chronic Obstructive Pulmonary Disease (COPD): Yes - HEMATOLOGICAL/ONCOLOGICAL Hx AIDS: No Hx Human Immunodeficiency Virus (HIV): No - MUSCULOSKELETAL/RHEUMATOLOGICAL Hx Falls: No - PSYCHIATRIC Hx Substance Use: No - SURGICAL HISTORY Hx Coronary Artery Bypass Graft: Yes Hx Coronary Stent: Yes - ANESTHESIA Hx Anesthesia: Yes Hx Anesthesia Reactions: No Meds Allergies/Adverse Reactions: Allergies Allergy/AdvReac Type Severity Reaction Status Date / Time No Known Allergies Allergy Verified 11/11/14 10:33 - Medications Medications: Current Medications Amlodipine Besylate (Norvasc) 5 mg PO DAILY [facility] Last Admin: 11/16/16 08:28 Dose: 5 mg Atorvastatin Calcium (Lipitor) 10 mg PO HS [facility] Last Admin: 11/15/16 21:05 Dose: 10 mg Glyburide (Micronase) 5 mg PO DAILY [facility] Last Admin: 11/16/16 08:26 Dose: 5 mg HCTZ/Losartan Potassium (Hyzaar 12.5 Mg-50 Mg) 2 tab PO DAILY [facility] Last Admin: 11/16/16 08:27 Dose: 2 tab Metoprolol Tartrate (Lopressor) 25 mg PO Q12 [facility] Last Admin: 11/16/16 08:26 Dose: 25 mg Pantoprazole Sodium (Protonix Ec Tab) 40 mg PO DAILY [facility] Pioglitazone HCl (Actos) 30 mg PO DAILY [facility] Last Admin: 11/16/16 08:27 Dose: 30 mg Sitagliptin Phosphate (Januvia) 100 mg PO DAILY [facility] Last Admin: 11/16/16 08:27 Dose: 100 mg Physical Exam - Additional Findings Additional findings: Physical exam; Alert, well oriented in no acute distress neck; Supple, no adenopathy Cheat; Clear, scattered rales in the bases, Heart irregular rhytm, 96/min Abd; Some tenderness in the left flank area, but otherwise normal. Results - Vital Signs Recent Vital Signs: Last Vital Signs Temp 98.0 F 11/16/16 08:00 Pulse 92 H 11/16/16 08:28 Resp 18 11/16/16 08:00 BP 119/68 11/16/16 08:28 Pulse Ox 97 11/16/16 08:00 - Labs Result Diagrams: 11/16/16 05:20 11/16/16 05:20 Labs: Laboratory Results - last 24 hr 11/15/16 11/15/16 11/16/16 15:39 21:16 05:20 WBC RBC Hgb Hct MCV MCH MCHC RDW Plt Count Sodium 131 L Potassium 3.7 Chloride 97 L Carbon Dioxide 22 Anion Gap 16 BUN 31 H Creatinine 3.5 H Est GFR ( Amer) 15 Est GFR (Non-Af Amer) 13 POC Glucose (mg/dL) 147 H 170 H Random Glucose 106 H Calcium 8.2 L Total Bilirubin 1.1 AST 26 ALT 43 Alkaline Phosphatase 55 Total Protein 5.5 L Albumin 3.3 L Globulin 2.2 Albumin/Globulin Ratio 1.5 11/16/16 11/16/16 05:20 06:26 WBC 3.7 L RBC 3.28 L Hgb 7.4 L Hct 23.1 L MCV 70.5 L MCH 22.6 L MCHC 32.1 L RDW 17.8 H Plt Count 112 L Sodium Potassium Chloride Carbon Dioxide Anion Gap BUN Creatinine Est GFR ( Amer) Est GFR (Non-Af Amer) POC Glucose (mg/dL) 122 H Random Glucose Calcium Total Bilirubin AST ALT Alkaline Phosphatase Total Protein Albumin Globulin Albumin/Globulin Ratio Assessment & Plan - Assessment and Plan (Free Text) Assessment: Impression; Microcytic, hypochronic anemia , in a patient with no h/o bleeding. ? occult malignancy ? hemoglobinopahty HTN, Acute renal insufficiency. Plan: Plan;;; , Ct scan of the abdomen and pelvis to r/o malignancy, will order a hgb electrophoresis, SPE, immunofixation. Will also ck the ferritin done 2 days ago. If this is not conclusive, then i will do a bone marrow tomorrow. - Date & Time Date: 11/16/16 Time: 12:57
[2016-11-16] MEDS ORDERED: Iohexol 240 (50 ml) PO STA (12:23)
--- NOTE | 2016-11-16 17:49 | CT ---
CT chest without IV contrast Indication: Pulmonary hypertension Technique: Contiguous axial images were obtained through the chest without intravenous contrast enhancement. Sagittal and coronal reconstructions were generated and reviewed. This CT exam was performed using 1 or more of the falling dose reduction techniques: Automated exposure control, adjustment of the MAA and/or kV according to patient size, and/or use of iterative reconstruction technique. Radiation dose (DLP): 560.10 MGy-cm. Comparison: CT chest without contrast performed 12/29/14 chest x-ray performed 11/10/16 Findings: Visualized portions of the inferior thyroid gland appear unremarkable. The unenhanced mediastinal and hilar vascular structures appear unremarkable. Median sternotomy wires. Borderline cardiomegaly. Dense coronary artery calcifications. Sub cm prevascular and mediastinal lymph nodes, nonspecific. Left axillary lymph node measures approximately 10 mm in short axis. Minimal streaky atelectasis involving the right middle lobe and lingula. Small region of bronchiectasis within the right middle lobe. No focal consolidation. No pleural effusion. No pneumothorax. No suspicious pulmonary nodules measuring greater than 5 mm. Small hiatal hernia. Limited visualization of the noncontrast upper abdomen appears grossly unremarkable. Degenerative changes of the spine. Impression: Minimal streaky atelectasis involving the right middle lobe and lingula. Small region of bronchiectasis within the right middle lobe. Median sternotomy wires. Borderline cardiomegaly. Dense coronary artery calcifications. Additional findings as above.
--- NOTE | 2016-11-16 20:19 | CT ---
EXAM: CT Abdomen and Pelvis Without Intravenous Contrast CLINICAL HISTORY: 76 years old, female; Signs and symptoms; Other: Anemia TECHNIQUE: Axial computed tomography images of the abdomen and pelvis without intravenous contrast. This CT exam was performed using one or more of the following dose reduction techniques: automated exposure control, adjustment of the mA and/or kV according to patient size, and/or use of iterative reconstruction technique. Oral contrast was administered. Coronal and sagittal reformatted images were created and reviewed. EXAM DATE/TIME: 11/16/2016 4:45 PM COMPARISON: No relevant prior studies available. FINDINGS: LOWER THORAX: Small hiatal hernia. ABDOMEN: LIVER: No acute abnormality of the liver identified. No liver lesions are seen. GALLBLADDER AND BILE DUCTS: Subtle findings suspicious for either mild gallbladder wall thickening versus a small amount of pericholecystic fluid. There is a subtle rim of low density in the fat abutting the gallbladder. Gallbladder does not appear significantly dilated. No radioopaque gallstones are seen. PANCREAS: No CT evidence of acute pancreatitis. SPLEEN: Splenomegaly, with the spleen measuring 16 cm in length. No evidence of focal splenic lesions. ADRENALS: No acute abnormality of the adrenal glands identified. KIDNEYS AND URETERS: Bilateral perinephric stranding, a nonspecific finding. No renal stones, hydronephrosis, or hydroureter seen. STOMACH AND BOWEL: No acute abnormality of the stomach, small bowel or colon identified. No evidence of bowel obstruction. APPENDIX: Appendix is seen, and is within normal limits in appearance. PELVIS: BLADDER: No acute abnormality of the bladder identified. REPRODUCTIVE:No acute abnormality of the reproductive organs is seen. No acute abnormality of the uterus identified. No evidence of large adnexal masses. ABDOMEN and PELVIS: INTRAPERITONEAL SPACE: Minimal fluid in the posterior pelvis, in the presacral region. No evidence of free intraperitoneal air. RETROPERITONEAL SPACE: No evidence of retroperitoneal hemorrhage. BONES/JOINTS: Marked degenerative disc disease at L4-5 and L5-S1. No acute fractures or other acute bony abnormality visualized. SOFT TISSUES: No acute abnormality of the visualized soft tissues is seen. VASCULATURE: Atherosclerotic calcification. No evidence of abdominal aortic aneurysm. LYMPH NODES: No evidence of pathologic lymphadenopathy.. IMPRESSION: - Subtle findings suspicious for mild gallbladder wall thickening versus a small amount of pericholecystic fluid. Right upper quadrant ultrasound would be helpful for further evaluation, unless otherwise clinically indicated. - Minimal pelvic free fluid. - Splenomegaly. - No other significant abnormality identified. - See above for remaining findings.
[2016-11-17 07:02] LABS: HEMOGLOBIN 7.9 g/dL (12.0-16.0); MEAN CELL VOLUME 71.4 fl (81.0-99.0); MEAN CORPUSCULAR HGB CONC 32.3 g/dL (33.0-37.0); RBC 3.41 Mil/uL (3.80-5.20); RED CELL DISTRIBUTION WIDTH 17.5 % (11.5-14.5); WHITE BLOOD COUNT 3.8 K/uL (4.8-10.8)
[2016-11-17 07:23] LABS: ALB/GLOB RATIO 1.5 (1.0-2.1); ALBUMIN 3.5 g/dL (3.5-5.0)
[2016-11-17] MEDS ORDERED: Potassium Chloride 20 mEq ER Tab PO ONE (07:40)
[2016-11-17] MEDS: Pantoprazole 40 mg EC Tab PO SCH (08:03)
[2016-11-17] MEDS: HCTZ/Losartan 12.5/50 Tab PO SCH (08:10)
--- NOTE | 2016-11-17 08:51 | CP.PCM.PN ---
Subjective - Date & Time of Evaluation Date of Evaluation: 11/17/16 Time of Evaluation: 08:35 - Subjective Subjective: Sitting OOB, appears comfortable Pale A Fib at 70-80 BPM BP 136/80 mm Hg JVP flat, no rales, no gallop Today: Hb 7.9 gms BUN/ Creatinin 30/3.1 Mg (Azotemia begining to resolve) K+ mild hypoK+ (replacement ordered) CT chest and abd unremarkable Will need a V/Q scan to R/O PE (New finding of severe TR and dilated IVC on echo) Bone marrow aspiration this AM Objective - Vital Signs/Intake and Output Vital Signs (last 24 hours): Temp Pulse Resp BP Pulse Ox 98.1 F 108 H 18 113/68 97 11/17/16 08:10 11/17/16 08:10 11/17/16 08:10 11/17/16 08:10 11/17/16 08:10 - Medications Medications: Current Medications Amlodipine Besylate (Norvasc) 5 mg PO DAILY [facility] Last Admin: 11/17/16 08:04 Dose: 5 mg Atorvastatin Calcium (Lipitor) 10 mg PO HS [facility] Last Admin: 11/16/16 21:12 Dose: 10 mg Glyburide (Micronase) 5 mg PO DAILY [facility] Last Admin: 11/17/16 08:13 Dose: Not Given HCTZ/Losartan Potassium (Hyzaar 12.5 Mg-50 Mg) 2 tab PO DAILY [facility] Last Admin: 11/17/16 08:10 Dose: 2 tab Metoprolol Tartrate (Lopressor) 25 mg PO Q12 [facility] Last Admin: 11/17/16 08:05 Dose: 25 mg Pantoprazole Sodium (Protonix Ec Tab) 40 mg PO DAILY [facility] Last Admin: 11/17/16 08:03 Dose: 40 mg Pioglitazone HCl (Actos) 30 mg PO DAILY [facility] Last Admin: 11/17/16 08:12 Dose: Not Given Sitagliptin Phosphate (Januvia) 100 mg PO DAILY [facility] Last Admin: 11/17/16 08:13 Dose: Not Given - Labs Labs: 11/17/16 05:30 11/17/16 05:30 PT 12.3 Seconds (9.8-13.1) 11/15/16 05:15 INR 1.1 (0.9-1.2) 11/15/16 05:15
[2016-11-17] MEDS ORDERED: Lidocaine 2% Inj (20ml) SC ONE (09:06)
--- NOTE | 2016-11-17 09:25 | CP.PCM.PN ---
Subjective - Date & Time of Evaluation Date of Evaluation: 11/17/16 Time of Evaluation: 09:23 - Subjective Subjective: Pt's ferritin was 106, and the CT scans were normal as well I think she needs a bone marrow test, which i will be doing toay Objective - Vital Signs/Intake and Output Vital Signs (last 24 hours): Temp Pulse Resp BP Pulse Ox 98.1 F 108 H 18 113/68 97 11/17/16 08:10 11/17/16 08:10 11/17/16 08:10 11/17/16 08:10 11/17/16 08:10 - Medications Medications: Current Medications Amlodipine Besylate (Norvasc) 5 mg PO DAILY [facility] Last Admin: 11/17/16 08:04 Dose: 5 mg Atorvastatin Calcium (Lipitor) 10 mg PO HS [facility] Last Admin: 11/16/16 21:12 Dose: 10 mg Glyburide (Micronase) 5 mg PO DAILY [facility] Last Admin: 11/17/16 08:13 Dose: Not Given HCTZ/Losartan Potassium (Hyzaar 12.5 Mg-50 Mg) 2 tab PO DAILY [facility] Last Admin: 11/17/16 08:10 Dose: 2 tab Metoprolol Tartrate (Lopressor) 25 mg PO Q12 [facility] Last Admin: 11/17/16 08:05 Dose: 25 mg Pantoprazole Sodium (Protonix Ec Tab) 40 mg PO DAILY [facility] Last Admin: 11/17/16 08:03 Dose: 40 mg Pioglitazone HCl (Actos) 30 mg PO DAILY [facility] Last Admin: 11/17/16 08:12 Dose: Not Given Sitagliptin Phosphate (Januvia) 100 mg PO DAILY [facility] Last Admin: 11/17/16 08:13 Dose: Not Given - Labs Labs: 11/17/16 05:30 11/17/16 05:30 PT 12.3 Seconds (9.8-13.1) 11/15/16 05:15 INR 1.1 (0.9-1.2) 11/15/16 05:15
--- NOTE | 2016-11-17 15:34 | CP.PCM.PN ---
Subjective - Date & Time of Evaluation Date of Evaluation: 11/17/16 Time of Evaluation: 15:32 - Subjective Subjective: Bone marrow done from the sternum under local anesthesia. Pt tolerated the procedure well, result to follow. Objective - Vital Signs/Intake and Output Vital Signs (last 24 hours): Temp Pulse Resp BP Pulse Ox 98.6 F 106 H 18 106/67 99 11/17/16 12:05 11/17/16 12:05 11/17/16 12:05 11/17/16 12:05 11/17/16 12:05 - Medications Medications: Current Medications Amlodipine Besylate (Norvasc) 5 mg PO DAILY [facility] Last Admin: 11/17/16 08:04 Dose: 5 mg Atorvastatin Calcium (Lipitor) 10 mg PO HS [facility] Last Admin: 11/16/16 21:12 Dose: 10 mg Glyburide (Micronase) 5 mg PO DAILY [facility] Last Admin: 11/17/16 08:13 Dose: Not Given HCTZ/Losartan Potassium (Hyzaar 12.5 Mg-50 Mg) 2 tab PO DAILY [facility] Last Admin: 11/17/16 08:10 Dose: 2 tab Metoprolol Tartrate (Lopressor) 25 mg PO Q12 [facility] Last Admin: 11/17/16 08:05 Dose: 25 mg Pantoprazole Sodium (Protonix Ec Tab) 40 mg PO DAILY [facility] Last Admin: 11/17/16 08:03 Dose: 40 mg Pioglitazone HCl (Actos) 30 mg PO DAILY [facility] Last Admin: 11/17/16 08:12 Dose: Not Given Sitagliptin Phosphate (Januvia) 100 mg PO DAILY [facility] Last Admin: 11/17/16 08:13 Dose: Not Given - Labs Labs: 11/17/16 05:30 11/17/16 05:30 PT 12.3 Seconds (9.8-13.1) 11/15/16 05:15 INR 1.1 (0.9-1.2) 11/15/16 05:15
--- NOTE | 2016-11-17 15:40 | NM ---
COMPARISON: Chest CT 11/16/2016. TECHNIQUE: 45.0 mCi technetium 99-m DTPA aerosol. 5.0 mCI technetium 99-m MAA tagged red blood cells administered intravenously. FINDINGS: VENTILATION COMPONENT: Mildly inhomogeneous uptake is appreciated. An element of COPD is not completely excluded but is not clearly evident in the prior chest CT 11/16/2016 either. This is a nonspecific pattern. PERFUSION COMPONENT: No definite probe perfusion mismatches are encountered. IMPRESSION: Lowprobability ventilation perfusion scan for pulmonary embolism.
[2016-11-18 06:03] LABS: HEMOGLOBIN 7.9 g/dL (12.0-16.0); MEAN CELL VOLUME 71.5 fl (81.0-99.0); MEAN CORPUSCULAR HEMOGLOBIN 22.6 pg (27.0-31.0); MEAN CORPUSCULAR HGB CONC 31.6 g/dL (33.0-37.0); RBC 3.49 Mil/uL (3.80-5.20); RED CELL DISTRIBUTION WIDTH 17.9 % (11.5-14.5)
[2016-11-18 06:16] LABS: ALB/GLOB RATIO 1.5 (1.0-2.1); ALBUMIN 3.4 g/dL (3.5-5.0); CALCIUM 8.3 mg/dL (8.4-10.2)
--- NOTE | 2016-11-18 07:41 | CP.PCM.PN ---
Subjective - Date & Time of Evaluation Date of Evaluation: 11/17/16 Time of Evaluation: 10:00 - Subjective Subjective: Appears comfortable, seated in bedside chair. Seen by Hematology, bone marrow being done today. Vital signs and labs are steady. Plan for VQ lung scan later today. Patient has sleep apnea, but has not been using her nCPAP for a long time now. The resultant nocturnal hypoxemia may be a major factor in the development of her pulmonary hypertension. Tis has been discussed with her today at length. She may need a repeat sleep study and CPAP titration after discharge. Objective - Vital Signs/Intake and Output Vital Signs (last 24 hours): Temp Pulse Resp BP Pulse Ox 98.4 F 82 19 117/72 99 11/18/16 04:44 11/18/16 04:44 11/18/16 04:44 11/18/16 04:44 11/18/16 04:44 - Medications Medications: Current Medications Amlodipine Besylate (Norvasc) 5 mg PO DAILY [facility] Last Admin: 11/17/16 08:04 Dose: 5 mg Atorvastatin Calcium (Lipitor) 10 mg PO HS [facility] Last Admin: 11/17/16 21:33 Dose: 10 mg Glyburide (Micronase) 5 mg PO DAILY [facility] Last Admin: 11/17/16 08:13 Dose: Not Given HCTZ/Losartan Potassium (Hyzaar 12.5 Mg-50 Mg) 2 tab PO DAILY [facility] Last Admin: 11/17/16 08:10 Dose: 2 tab Metoprolol Tartrate (Lopressor) 25 mg PO Q12 [facility] Last Admin: 11/17/16 21:32 Dose: 25 mg Pantoprazole Sodium (Protonix Ec Tab) 40 mg PO DAILY [facility] Last Admin: 11/17/16 08:03 Dose: 40 mg Pioglitazone HCl (Actos) 30 mg PO DAILY [facility] Last Admin: 11/17/16 08:12 Dose: Not Given Sitagliptin Phosphate (Januvia) 100 mg PO DAILY [facility] Last Admin: 11/17/16 08:13 Dose: Not Given - Labs Labs: 11/18/16 05:20 11/18/16 05:20 PT 12.3 Seconds (9.8-13.1) 11/15/16 05:15 INR 1.1 (0.9-1.2) 11/15/16 05:15 Assessment and Plan (1) Anemia Status: Acute (2) 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 (3) Atrial fibrillation Status: Acute
[2016-11-18] MEDS: HCTZ/Losartan 12.5/50 Tab PO SCH (08:35)
[2016-11-18] MEDS: Pantoprazole 40 mg EC Tab PO SCH (08:36)
--- NOTE | 2016-11-18 08:47 | CP.PCM.PN ---
Subjective - Date & Time of Evaluation Date of Evaluation: 11/18/16 Time of Evaluation: 08:37 - Subjective Subjective: Pt had the bone marrow aspiration yesterday. No side effects from the same. 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 There was no increase in blasts, no shift to the left. The specimen has been sent out for flow cytimetry and cytogenetics. Objective - Vital Signs/Intake and Output Vital Signs (last 24 hours): Temp Pulse Resp BP Pulse Ox 98.5 F 93 H 18 115/62 98 11/18/16 08:09 11/18/16 08:34 11/18/16 08:09 11/18/16 08:34 11/18/16 08:09 - Medications Medications: Current Medications Amlodipine Besylate (Norvasc) 5 mg PO DAILY [facility] Last Admin: 11/18/16 08:34 Dose: 5 mg Atorvastatin Calcium (Lipitor) 10 mg PO HS [facility] Last Admin: 11/17/16 21:33 Dose: 10 mg Glyburide (Micronase) 5 mg PO DAILY [facility] Last Admin: 11/18/16 08:35 Dose: 5 mg HCTZ/Losartan Potassium (Hyzaar 12.5 Mg-50 Mg) 2 tab PO DAILY [facility] Last Admin: 11/18/16 08:35 Dose: 2 tab Metoprolol Tartrate (Lopressor) 25 mg PO Q12 [facility] Last Admin: 11/18/16 08:34 Dose: 25 mg Pantoprazole Sodium (Protonix Ec Tab) 40 mg PO DAILY [facility] Last Admin: 11/18/16 08:36 Dose: 40 mg Pioglitazone HCl (Actos) 30 mg PO DAILY [facility] Last Admin: 11/18/16 08:33 Dose: 30 mg Sitagliptin Phosphate (Januvia) 100 mg PO DAILY [facility] Last Admin: 11/18/16 08:35 Dose: 100 mg - Labs Labs: 11/18/16 05:20 11/18/16 05:20 PT 12.3 Seconds (9.8-13.1) 11/15/16 05:15 INR 1.1 (0.9-1.2) 11/15/16 05:15 Assessment and Plan - Assessment and Plan (Free Text) Plan: Will give venofer daily for 3 days.
--- NOTE | 2016-11-18 09:32 | CP.PCM.PN ---
Subjective - Date & Time of Evaluation Date of Evaluation: 11/18/16 Time of Evaluation: 09:10 - Subjective Subjective: Sitting OOB, generally feels okay Has been room confined most of her stay Telemetry shows A Fib at 100-110 BPM BP 126/70 mm Hg No signs of CHF Heme evaluation points to Fe deficiency Pt to get IV iron Unaddressed JENNIFER likely cause of pulm hypertension and the severe TR No obvious source of bleeding/ active bleeding detected, hence will consider oral anticoagulation (for A Fib) GFR is depressed following bowel prep Now slowly improving Once creatinin clearance is greater than 15 (today 12.5) will initiate Xarelto Objective - Vital Signs/Intake and Output Vital Signs (last 24 hours): Temp Pulse Resp BP Pulse Ox 98.5 F 93 H 18 115/62 98 11/18/16 08:09 11/18/16 08:34 11/18/16 08:09 11/18/16 08:34 11/18/16 08:09 - Medications Medications: Current Medications Amlodipine Besylate (Norvasc) 5 mg PO DAILY [facility] Last Admin: 11/18/16 08:34 Dose: 5 mg Atorvastatin Calcium (Lipitor) 10 mg PO HS [facility] Last Admin: 11/17/16 21:33 Dose: 10 mg Glyburide (Micronase) 5 mg PO DAILY [facility] Last Admin: 11/18/16 08:35 Dose: 5 mg HCTZ/Losartan Potassium (Hyzaar 12.5 Mg-50 Mg) 2 tab PO DAILY [facility] Last Admin: 11/18/16 08:35 Dose: 2 tab Iron Sucrose 200 mg/ Sodium (Chloride) 110 mls @ 0 mls/hr IVPB DAILY [facility] PRN Reason: As Directed Stop: 11/20/16 09:01 Metoprolol Tartrate (Lopressor) 50 mg PO Q12 [facility] Pantoprazole Sodium (Protonix Ec Tab) 40 mg PO DAILY [facility] Last Admin: 11/18/16 08:36 Dose: 40 mg Pioglitazone HCl (Actos) 30 mg PO DAILY [facility] Last Admin: 11/18/16 08:33 Dose: 30 mg Sitagliptin Phosphate (Januvia) 100 mg PO DAILY [facility] Last Admin: 11/18/16 08:35 Dose: 100 mg - Labs Labs: 11/18/16 05:20 11/18/16 05:20 PT 12.3 Seconds (9.8-13.1) 11/15/16 05:15 INR 1.1 (0.9-1.2) 11/15/16 05:15
[2016-11-19 05:06] VITALS: O2SAT 96
[2016-11-19] MEDS: HCTZ/Losartan 12.5/50 Tab PO SCH (07:59)
[2016-11-19] MEDS: Pantoprazole 40 mg EC Tab PO SCH (08:00)
[2016-11-19 08:17] VITALS: BP 120/70; PULSE 113; RESP 18; TEMP 98
[2016-11-19 08:24] LABS: ALB/GLOB RATIO 1.4 (1.0-2.1); ALBUMIN 3.4 g/dL (3.5-5.0); CALCIUM 8.3 mg/dL (8.4-10.2)
--- NOTE | 2016-11-19 10:27 | CP.PCM.DIS ---
Provider - Provider Date of Admission: 11/12/16 12:51 Attending physician: Russell Nunes MD Time Spent in preparation of Discharge (in minutes): 30 Hospital Course - Lab Results Lab Results: Most Recent Lab Values WBC 4.0 K/uL (4.8-10.8) L 11/18/16 05:20 RBC 3.49 Mil/uL (3.80-5.20) L 11/18/16 05:20 Hgb 7.9 g/dL (12.0-16.0) L 11/18/16 05:20 Hct 25.0 % (34.0-47.0) L 11/18/16 05:20 MCV 71.5 fl (81.0-99.0) L 11/18/16 05:20 MCH 22.6 pg (27.0-31.0) L 11/18/16 05:20 MCHC 31.6 g/dL (33.0-37.0) L 11/18/16 05:20 RDW 17.9 % (11.5-14.5) H 11/18/16 05:20 Plt Count 107 K/uL (130-400) L 11/18/16 05:20 MPV 9.4 fl (7.2-11.7) 11/15/16 05:15 Neut % (Auto) 64.7 % (50.0-75.0) 11/15/16 05:15 Lymph % (Auto) 19.9 % (20.0-40.0) L 11/15/16 05:15 [place] % (Auto) 12.3 % (0.0-10.0) H 11/15/16 05:15 Eos % (Auto) 1.9 % (0.0-4.0) 11/15/16 05:15 Baso % (Auto) 1.2 % (0.0-2.0) 11/15/16 05:15 Neut # 2.5 K/uL (1.8-7.0) 11/15/16 05:15 Lymph # 0.8 K/uL (1.0-4.3) L 11/15/16 05:15 [place] # 0.5 K/uL (0.0-0.8) 11/15/16 05:15 Eos # 0.1 K/uL (0.0-0.7) 11/15/16 05:15 Baso # 0.0 K/uL (0.0-0.2) 11/15/16 05:15 Retic Count 2.4 % (0.5-1.5) H 11/13/16 12:00 PT 12.3 Seconds (9.8-13.1) 11/15/16 05:15 INR 1.1 (0.9-1.2) 11/15/16 05:15 Sodium 132 mmol/l (132-148) 11/19/16 06:00 Potassium 3.6 MMOL/L (3.6-5.0) 11/19/16 06:00 Chloride 98 mmol/L (98-107) 11/19/16 06:00 Carbon Dioxide 25 mmol/L (22-30) 11/19/16 06:00 Anion Gap 13 (10-20) 11/19/16 06:00 BUN 32 mg/dl (7-17) H 11/19/16 06:00 Creatinine 2.3 mg/dL (0.7-1.2) H 11/19/16 06:00 Est GFR ( Amer) 25 11/19/16 06:00 Est GFR (Non-Af Amer) 21 11/19/16 06:00 POC Glucose (mg/dL) 72 mg/dL (65-110) 11/19/16 05:44 Random Glucose 93 mg/dL (65-105) 11/19/16 06:00 Calcium 8.3 mg/dL (8.4-10.2) L 11/19/16 06:00 Iron 29 ug/dL (37-170) L 11/13/16 12:00 TIBC 284 ug/dL (250-450) 11/13/16 12:00 % Saturation 10 % (20-55) L 11/13/16 12:00 Ferritin 107.0 ng/mL 11/12/16 13:34 Total Bilirubin 1.0 mg/dl (0.2-1.3) 11/19/16 06:00 AST 25 U/L (14-36) 11/19/16 06:00 ALT 29 U/L (9-52) 11/19/16 06:00 Alkaline Phosphatase 62 U/L (38-126) 11/19/16 06:00 Troponin I < 0.0120 ng/mL (0.00-0.120) 11/13/16 07:00 NT-Pro-B Natriuret Pep 1490 pg/ml (0-900) H 11/12/16 13:34 Total Protein 5.8 G/DL (6.3-8.2) L 11/19/16 06:00 Albumin 3.4 g/dL (3.5-5.0) L 11/19/16 06:00 Globulin 2.4 gm/dL (2.2-3.9) 11/19/16 06:00 Albumin/Globulin Ratio 1.4 (1.0-2.1) 11/19/16 06:00 Angiotensin Convert Enz 48 U/L (9-67) 11/16/16 12:30 Vitamin B12 772 pg/mL (239-931) 11/13/16 15:46 Thyroxine (T4) 9.86 ug/dl (5.5-11.0) 11/12/16 13:34 Total T3 0.697 nmol/L (1.49-2.60) L 11/12/16 13:34 TSH 3rd Generation 0.49 mIU/ML (0.46-4.68) 11/12/16 13:34 Stool Occult Blood Negative (NEGATIVE) 11/13/16 20:11 - Hospital Course Hospital Course: This 76-year-old female, came to the hospital complaining of profound shortness of breath and fatigue and was found to have atrial fibrillation and severe anemia. She had a long history of diabetes mellitus and had undergone coronary bypass graft surgery in 1999 to April. She was known to have chronic obstructive airway disease and was being treated by a pulmonary physician as well. She has had a history of low back pain and osteoarthritic pains in both knees. In the emergency room she was found to have atrial fibrillation with moderately fast heart rates at 110 to 20 bpm. There was no evidence of congestive cardiac failure. Her hemoglobin was 8.3 g and her hematocrit was 25.5%. This was a microcytic hypochromic anemia. Her reticulocyte count was 2.1% and her iron studies showed evidence of iron deficiency. An echocardiogram showed preserved left ventricular systolic function with severe tricuspid regurgitation and elevated pulmonary artery systolic pressure. Her stool for occult blood was negative. At admission her BUNs and creatinine were 10 and 1 mg percent respectively a GI consultation was requested and the patient underwent an endoscopy and colonoscopy neither of which revealed any lesion responsible for bleeding. The patient subsequently underwent hematological evaluation including a bone marrow examination. Severe iron deficiency was documented. No abnormal cells were detected on bone marrow examination. Accordingly the patient was given intravenous iron infusion of 200 mg a day for 2 days. During ball preparation for colonoscopy the patient developed severe hydration and her BUNs and creatinine went up to 31 and 3.5 mg percent respectively. The patient was aggressively hydrated and by the time of her discharge her BUNs was 32 mg percent and creatinine was 2.3 mg percent. Her GFR which had dropped down to 13 mL per minute had risen to 21 mL per minute. Her hemoglobin at the time of discharge was 7.9 g with a leukocyte count of 4000 and platelet count of 107 thousand. Further questioning of the patient revealed that she was not using her CPAP machine at home for obstructive sleep apnea which was diagnosed a few years back. This was responsible for elevated pulmonary artery systolic pressure and severe tricuspid regurgitation detected on echocardiogram. The patient will be allowed to return home and come in as an outpatient for additional iron infusion. A repeat sleep study would be arranged as an outpatient and the patient promises to start using CPAP machine. Faithfully. She will have her CBC and complete metabolic profile drawn to monitor her blood count and her gradual return to normal renal function. Her final diagnosis was iron deficiency anemia with diabetes mellitus hypertension dyslipidemia stable coronary artery disease with status post coronary bypass graft surgery. Obstructive hypoxia sleep apnea with chronic hypoxia with elevated pulmonary artery systolic pressure. Discharge Exam - Head Exam Head Exam: ATRAUMATIC, NORMAL INSPECTION, NORMOCEPHALIC Discharge Plan - Follow Up Plan Condition: FAIR Disposition: HOME/ ROUTINE
--- NOTE | 2016-11-19 10:46 | CP.PCM.PN ---
Subjective - Date & Time of Evaluation Date of Evaluation: 11/19/16 Time of Evaluation: 10:40 - Subjective Subjective: With a creatinin level of 2.3 mg her Creatinin clearance is 22 ml/min Will start pt on Xarelto 15 mg daily. Pros and cons of this drug explained at length. Objective - Vital Signs/Intake and Output Vital Signs (last 24 hours): Temp Pulse Resp BP Pulse Ox 98.0 F 113 H 18 120/70 96 11/19/16 08:00 11/19/16 09:00 11/19/16 08:00 11/19/16 08:00 11/19/16 08:00 - Medications Medications: Current Medications Amlodipine Besylate (Norvasc) 5 mg PO DAILY [facility] Last Admin: 11/19/16 08:00 Dose: 5 mg Atorvastatin Calcium (Lipitor) 10 mg PO HS [facility] Last Admin: 11/18/16 21:38 Dose: 10 mg Glyburide (Micronase) 5 mg PO DAILY [facility] Last Admin: 11/19/16 08:03 Dose: 5 mg HCTZ/Losartan Potassium (Hyzaar 12.5 Mg-50 Mg) 2 tab PO DAILY [facility] Last Admin: 11/19/16 07:59 Dose: 2 tab Iron Sucrose 200 mg/ Sodium (Chloride) 110 mls @ 0 mls/hr IVPB DAILY [facility] PRN Reason: As Directed Stop: 11/20/16 09:01 Last Admin: 11/19/16 08:01 Dose: 100 mls/hr Metoprolol Tartrate (Lopressor) 50 mg PO Q12 [facility] Last Admin: 11/19/16 07:59 Dose: 50 mg Pantoprazole Sodium (Protonix Ec Tab) 40 mg PO DAILY [facility] Last Admin: 11/19/16 08:00 Dose: 40 mg Pioglitazone HCl (Actos) 30 mg PO DAILY [facility] Last Admin: 11/19/16 10:04 Dose: 30 mg Sitagliptin Phosphate (Januvia) 100 mg PO DAILY [facility] Last Admin: 11/19/16 07:59 Dose: 100 mg - Labs Labs: 11/18/16 05:20 11/19/16 06:00 PT 12.3 Seconds (9.8-13.1) 11/15/16 05:15 INR 1.1 (0.9-1.2) 11/15/16 05:15
--- NOTE | 2016-11-19 11:20 | CP.PCM.PN ---
Subjective - Date & Time of Evaluation Date of Evaluation: 11/19/16 Time of Evaluation: 11:12 - Subjective Subjective: Pt is anxious to go home. The flow cytometry from the bone marrow showed no evidence for abnormal myeloid maturation or increased blasts. no evidence of T cell lymphoproliferative disorder, There is a a small (1%) monoclonal B cell population with non specific immonophenotype. Awaitin results of cytogenetics. Have given pt 2 doses of venofer. Will schedule her as as outpatient for 3 doses of venofer in the infusion center. If this does not help, will give procrit Objective - Vital Signs/Intake and Output Vital Signs (last 24 hours): Temp Pulse Resp BP Pulse Ox 98.0 F 113 H 18 120/70 96 11/19/16 08:00 11/19/16 09:00 11/19/16 08:00 11/19/16 08:00 11/19/16 08:00 - Medications Medications: Current Medications Amlodipine Besylate (Norvasc) 5 mg PO DAILY [facility] Last Admin: 11/19/16 08:00 Dose: 5 mg Atorvastatin Calcium (Lipitor) 10 mg PO HS [facility] Last Admin: 11/18/16 21:38 Dose: 10 mg Glyburide (Micronase) 5 mg PO DAILY [facility] Last Admin: 11/19/16 08:03 Dose: 5 mg HCTZ/Losartan Potassium (Hyzaar 12.5 Mg-50 Mg) 2 tab PO DAILY [facility] Last Admin: 11/19/16 07:59 Dose: 2 tab Iron Sucrose 200 mg/ Sodium (Chloride) 110 mls @ 0 mls/hr IVPB DAILY [facility] PRN Reason: As Directed Stop: 11/20/16 09:01 Last Admin: 11/19/16 08:01 Dose: 100 mls/hr Metoprolol Tartrate (Lopressor) 50 mg PO Q12 [facility] Last Admin: 11/19/16 07:59 Dose: 50 mg Pantoprazole Sodium (Protonix Ec Tab) 40 mg PO DAILY [facility] Last Admin: 11/19/16 08:00 Dose: 40 mg Pioglitazone HCl (Actos) 30 mg PO DAILY [facility] Last Admin: 11/19/16 10:04 Dose: 30 mg Sitagliptin Phosphate (Januvia) 100 mg PO DAILY [facility] Last Admin: 11/19/16 07:59 Dose: 100 mg - Labs Labs: 11/18/16 05:20 11/19/16 06:00 PT 12.3 Seconds (9.8-13.1) 11/15/16 05:15 INR 1.1 (0.9-1.2) 11/15/16 05:15
== END 2016-11-19 11:42 | disposition home or self-care (01) | DRG 812 ==
LOC: H.ER 12:09 → H.TEL 12:51
PROVIDERS: ADMIT Internal Medicine Cardiovascular Disease; ATTEND Internal Medicine Cardiovascular Disease
PROC: 0DB68ZX Excision of Stomach, Via Natural or Artificial Opening Endoscopic, Diagnostic (ICD-10-PCS; principal; 2016-11-15 15:00)
PROC: 0DJD8ZZ Inspection of Lower Intestinal Tract, Via Natural or Artificial Opening Endoscopic (ICD-10-PCS; 2016-11-15 15:00)
PROC: 07DQ3ZX Extraction of Sternum Bone Marrow, Percutaneous Approach, Diagnostic (ICD-10-PCS; 2016-11-17)
DX: D50.9 Iron deficiency anemia, unspecified (principal); N17.9 Acute kidney failure, unspecified; I47.2 Ventricular tachycardia; D69.6 Thrombocytopenia, unspecified; I27.2 Other secondary pulmonary hypertension; I07.1 Rheumatic tricuspid insufficiency; J44.9 Chronic obstructive pulmonary disease, unspecified; E86.0 Dehydration; I48.91 Unspecified atrial fibrillation; I10 Essential (primary) hypertension; E03.9 Hypothyroidism, unspecified; E11.9 Type 2 diabetes mellitus without complications; E66.9 Obesity, unspecified; G47.33 Obstructive sleep apnea (adult) (pediatric); I25.10 Atherosclerotic heart disease of native coronary artery without angina pectoris; Z95.1 Presence of aortocoronary bypass graft; Z95.5 Presence of coronary angioplasty implant and graft; Z68.35 Body mass index [BMI] 35.0-35.9, adult; K29.00 Acute gastritis without bleeding; K44.9 Diaphragmatic hernia without obstruction or gangrene; E78.5 Hyperlipidemia, unspecified; K64.8 Other hemorrhoids; D72.819 Decreased white blood cell count, unspecified; Z79.82 Long term (current) use of aspirin; M17.0 Bilateral primary osteoarthritis of knee; R09.02 Hypoxemia

== ENCOUNTER 2016-12-16 07:53 | Day surgery (SDC) | payer MEDICARE, BC ==
[2016-12-16 08:34] VITALS: BMI 35.9
[2016-12-16] MEDS ORDERED: Midazolam 2 MG/2 ML VIAL ONE (09:29)
[2016-12-16] MEDS ORDERED: Propofol 10 mg/ml Inj (20 ML) ONE (09:29)
[2016-12-16] MEDS ORDERED: ceFAZolin 1 GM in Sodium Chloride 0.9% 100 ML IVPB ONE (09:34)
[2016-12-16] MEDS ORDERED: Lidocaine 1% w Epi 1:100,000 Inj ONE (09:55)
[2016-12-16] MEDS ORDERED: Lidocaine 1% Inj (20ml) ONE (09:55)
--- NOTE | 2016-12-16 11:10 | CP.SDSHP ---
Same Day Surgery H & P - History Proposed Procedure: Port placement Pre-Op Diagnosis: Myelodysplastic syndrome - Allergies Allergies: Allergies No Known Allergies Allergy (Verified 11/11/14 10:33) - Physical Exam Vital Signs: Vital Signs 12/16/16 12/16/16 12/16/16 08:34 08:39 10:05 Temperature 97.7 F 98.0 F Pulse Rate 102 H 102 H 113 H Respiratory 20 20 Rate Blood Pressure 146/74 149/96 H O2 Sat by Pulse 98 100 Oximetry Mental Status: Alert & Oriented x3 Neuro: WNL Heart: WNL Lungs: WNL GI: WNL - Impression Impression: Pt referred for port placement. Informed consent obtained and risk of bleeding, infection, wound dehiscence explained to the patient. Pt. Evaluated Today:Candidate for Anesthesia & Procedure: Yes (ASA 2 Malampati 3) - Date & Time Date: 12/16/16 Time: 10:30 Short Stay Discharge - Short Stay Discharge Admitting Diagnosis/Reason for Visit: MYELODYSPLASTIC SYNDROME Referrals: FAMILY PROVIDER,NO [Primary Care Provider] -
--- NOTE | 2016-12-16 11:11 | PCM.SURG1 ---
Surgeon's Initial Post Op Note - Surgeon's Notes Surgeon: Jasson Dupree MD Steak Tenderizer Machine: NONE Type of Anesthesia: IV Sedation Pre-Operative Diagnosis: Myelodysplastic syndrome Operative Findings: Patent right IJV Post-Operative Diagnosis: Myelodysplastic syndrome Operation Performed: IJV accessed with US guidance. Single lumen port placed via the right IJV. Specimen/Specimens Removed: None Estimated Blood Loss: EBL {In ML}: 5 Blood Products Given: N/A Drains Used: No Drains Post-Op Condition: Fair Date of Surgery/Procedure: 12/16/16 Time of Surgery/Procedure: 11:00
[2016-12-16] MEDS ORDERED: HYDROmorphone 0.5 mg/0.5 ml ISec IVP PRN (11:12)
[2016-12-16] MEDS ORDERED: Lactated Ringer's 1,000 ML IV SCH (11:12)
[2016-12-16 11:28] VITALS: RESP 18
--- NOTE | 2016-12-16 12:13 | VASCULAR ---
PROCEDURE: Date of procedure: 12/16/2016 Procedure: 1. Placement of a right IJ port catheter with ultrasound and fluoroscopic guidance, CPT 30846 2. Catheter tip confirmation with spot radiograph in the superior vena cava. Medications: The patient was sedated anesthesiologist along with monitoring, Ancef 1 gm, Lidocaine 1% w Epinephrine Fluoro time: 25.5 seconds Radiation: 3.21 mGy HISTORY: Myelodysplastic syndrome TECHNIQUE: Following informed consent the procedure time-out, patient was placed supine on the interventional table and the right neck and chest were prepped and draped in the usual sterile fashion. Ultrasound showed a compressible right internal jugular vein. After the patient was sedated by the anesthesiologist, the skin anesthetized with 1% lidocaine with epinephrine. Under direct ultrasound guidance, the right internal jugular vein was accessed with micropuncture technique. A guidewire was then advanced under fluoroscopic guidance into the superior vena cava. An image documenting ultrasound guidance for vascular access was permanently saved. The subcutaneous tissue of patient right chest was infiltrated with 1 percent lidocaine with epinephrine. A dermatotomy was made with a 15. Scalpel. The port pocket was then created with blunt dissection using a Lakeisha clamp. The port pocket was flushed. A port catheter was then tunneled under the skin and out the venotomy site. The port catheter was flushed, advanced through a peel-away sheath, adjusted for length, and attached to the port. The port was placed in the port pocket and was secured with 2-0 sutures. The port was flushed and locked with heparin. The port pocket was then closed with absorbable 4-0 Vicryl sutures. The port pocket and the venotomy site were reprepped with ChloraPrep. Steri-Strips were then applied to the port incision also venotomy site. A sterile dressing was then applied. Final spot radiograph showed the right IJ port catheter with tip of the port catheter in the superior vena cava. A port is functional and ready for use. IMPRESSION: Placement of right IJ port catheter. The tip of the port is in the superior vena cava.
[2016-12-16 12:36] VITALS: TEMP 97.8
[2016-12-16 13:22] VITALS: BP 130/61; PULSE 90; O2SAT 98
== END 2016-12-16 13:52 | disposition home or self-care (01) ==
LOC: H.OPSURG 07:53
PROVIDERS: ATTEND Specialist
DX: D46.9 Myelodysplastic syndrome, unspecified (principal); I25.10 Atherosclerotic heart disease of native coronary artery without angina pectoris; J44.9 Chronic obstructive pulmonary disease, unspecified; E11.9 Type 2 diabetes mellitus without complications; I10 Essential (primary) hypertension; D64.9 Anemia, unspecified
CPT/HCPCS: 36561; 76937; 77001; 82948; C1751; C1769; J0690; J2250; J2704; J3010; J7120

== ENCOUNTER 2017-04-18 13:47 | Inpatient (IN) | payer MEDICARE, BC ==
[2017-04-18 13:47] VITALS: BMI 32.5
--- NOTE | 2017-04-18 14:25 | ED PDOC ---
HPI: General Adult Time Seen by Provider: 04/18/17 13:55 Chief Complaint (Nursing): Fever History Per: Patient (Referred by PMD, s/p chemo, has been coughing with yellow sputum x 2 days. Mild SOB. Subjective fever. Started on PO Avelox with no improvement.) Past Medical History Vital Signs: Last Vital Signs Temp 97.6 F 04/18/17 13:52 Pulse 104 H 04/18/17 13:52 Resp 18 04/18/17 13:52 BP 122/64 04/18/17 13:52 Pulse Ox 100 04/18/17 14:25 - Medical History PMH: Anemia, Atrial Fibrillation, CAD, COPD, Diabetes, Gastritis, HTN, Hypercholesterolemia, Hypothyroidism, Malignancy, Pneumonia Denies: HIV - Surgical History Surgical History: CABG, Coronary Stent - Family History Family History: States: Unknown Family Hx - Home Medications Home Medications: Ambulatory Orders Medication Instructions Recorded Aspirin [Aspirin EC] 81 mg PO DAILY 11/12/16 Atorvastatin [Lipitor] 10 mg PO HS 11/12/16 Losartan/Hydrochlorothiazide 1 tab PO DAILY 11/12/16 [Losartan-Hctz 100-25 mg Tab] Pioglitazone [Actos] 30 mg PO DAILY 11/12/16 SITagliptin [Januvia] 100 mg PO DAILY 11/12/16 amLODIPine [Norvasc] 5 mg PO DAILY 11/12/16 glyBURIDE [Micronase] 5 mg PO DAILY 11/12/16 Rivaroxaban [Xarelto] 1 tab PO DAILY 11/21/16 Metoprolol Tartrate [Lopressor] 50 mg PO BID 12/16/16 Potassium Chloride [K-Dur 20] 20 meq PO DAILY 01/09/17 Moxifloxacin [Avelox Tab] 400 mg PO DAILY 04/18/17 - Allergies Allergies/Adverse Reactions: Allergies Allergy/AdvReac Type Severity Reaction Status Date / Time No Known Allergies Allergy Verified 04/11/17 15:14 Review of Systems ROS Statement: Except As Marked, All Systems Reviewed And Found Negative Constitutional: Positive for: Fever Respiratory: Positive for: Cough, Shortness of Breath, Sputum Physical Exam - Reviewed Nursing Documentation Reviewed: Yes Vital Signs Reviewed: Yes - Physical Exam Appears: Positive for: Non-toxic, No Acute Distress Head Exam: Positive for: ATRAUMATIC, NORMAL INSPECTION, NORMOCEPHALIC Skin: Positive for: Normal Color, Warm Eye Exam: Positive for: EOMI, Normal appearance, PERRL ENT: Positive for: Normal ENT Inspection Neck: Positive for: Normal, Painless ROM Cardiovascular/Chest: Positive for: Regular Rate, Rhythm Respiratory: Positive for: Rhonchi. Negative for: Wheezing, Respiratory Distress Gastrointestinal/Abdominal: Positive for: Normal Exam, Bowel Sounds, Soft Back: Positive for: Normal Inspection Extremity: Positive for: Normal ROM Neurologic/Psych: Positive for: Alert, Oriented - ECG O2 Sat by Pulse Oximetry: 100 Disposition - Clinical Impression Clinical Impression: MDS (myelodysplastic syndrome), Pneumonia - Patient ED Disposition Is Patient to be Admitted: Yes - Disposition Disposition Time: 14:39 Condition: FAIR Forms: [employer] (Bangl[place]hi) - Pt Status Changed To: Hospital Disposition Of: Observation - POA Present On Arrival: None
[2017-04-18] MEDS ORDERED: Vancomycin 1 g Inj ONE (14:55)
[2017-04-18 15:29] LABS: VENOUS BLOOD GAS BASE EXCESS 2.5 mmol/L (0.0-2.0); VENOUS BLOOD GAS PCO2 45 mmHg (40-60); VENOUS BLOOD GAS PO2 29 mm/Hg (30-55)
[2017-04-18] MEDS ORDERED: Moxifloxacin IV 400mg/250ml NS 400 MG/250 ML BAG IVPB SCH (15:30)
--- NOTE | 2017-04-18 15:33 | CP.PCM.HP ---
<Luis Wells - Last Filed: 04/18/17 15:24> History of Present Illness - History of Present Illness History of Present Illness: 76 y/o female patient currently on chemotherapy with PMHx of anemia, Atrial Fibrillation, CAD, COPD, Diabetes, Gastritis, HTN, Hypercholesterolemia, Hypothyroidism, MDS, Pneumonia seen and evaluated at bedside in ED for possible pneumonia. Patient states that she has been having fever for the past couple of day and has been coughing nonstop. Patient reports that she has been producing sputum as well. Patient reports that she follows up with Dr. Nunes and is receiving chemotherapy for MDS with Dr. Bajwa. Patient states that she was seen by Dr. Bajwa today who advised her to go to the ED today. Patient denies of any recent N/V/C/SOB/CP/diarrhea/headache. Denies of any other complains at this time. PMHx: MDS, Anemia, Atrial Fibrillation, CAD, COPD, Diabetes, Gastritis, HTN, Hypercholesterolemia, Hypothyroidism, Pneumonia PSHx: ABG, Coronary Stent Allergies: N.K.D.A Medication: Reviewed SHx: denies of smoking (former smoker), EtOH use or illicit drug usage, lives alone FHx: denies Present on Admission - Present on Admission Any Indicators Present on Admission: Yes Review of Systems - Constitutional Constitutional: As Per HPI Past Patient History - Past Social History Smoking Status: Former Smoker - CARDIAC Hx Atrial Fibrillation: Yes Hx Hypercholesterolemia: Yes Hx Hypertension: Yes - PULMONARY Hx Chronic Obstructive Pulmonary Disease (COPD): Yes Hx Pneumonia: Yes - HEENT Other/Comment: Right ear -deaf - ENDOCRINE/METABOLIC Hx Hypothyroidism: Yes - HEMATOLOGICAL/ONCOLOGICAL Hx Anemia: Yes Hx Human Immunodeficiency Virus (HIV): No - MUSCULOSKELETAL/RHEUMATOLOGICAL Hx Back Pain: Yes (epidural) Hx Falls: No - GASTROINTESTINAL Hx Gastritis: Yes - PSYCHIATRIC Hx Emotional Abuse: No Hx Physical Abuse: No Hx Substance Use: No - SURGICAL HISTORY Hx Coronary Artery Bypass Graft: Yes Hx Coronary Stent: Yes - ANESTHESIA Hx Anesthesia: Yes Hx Anesthesia Reactions: No Hx Malignant Hyperthermia: No Meds Allergies/Adverse Reactions: Allergies Allergy/AdvReac Type Severity Reaction Status Date / Time No Known Allergies Allergy Verified 04/11/17 15:14 Physical Exam - Constitutional Appears: Well, Non-toxic, No Acute Distress - Head Exam Head Exam: ATRAUMATIC - Eye Exam Eye Exam: Normal appearance - ENT Exam ENT Exam: Mucous Membranes Moist, Normal Exam - Neck Exam Neck exam: Positive for: Normal Inspection - Respiratory Exam Respiratory Exam: Rhonchi, Wheezes, NORMAL BREATHING PATTERN Additional comments: Ronchi noted in right upper lobe. Patient has hard time completing sentences during a conversation - Cardiovascular Exam Cardiovascular Exam: REGULAR RHYTHM, +S1, +S2 - GI/Abdominal Exam GI & Abdominal Exam: Normal Bowel Sounds, Soft - Rectal Exam Rectal Exam: Deferred - Extremities Exam Extremities exam: Positive for: full ROM, normal inspection. Negative for: calf tenderness - Back Exam Back exam: FULL ROM, NORMAL INSPECTION - Neurological Exam Neurological exam: Alert, Oriented x3 - Psychiatric Exam Psychiatric exam: Normal Affect, Normal Mood - Skin Skin Exam: Intact, Normal Color, Warm Results - Vital Signs Recent Vital Signs: Last Vital Signs Temp 97.6 F 04/18/17 13:52 Pulse 104 H 04/18/17 13:52 Resp 18 04/18/17 13:52 BP 122/64 04/18/17 13:52 Pulse Ox 100 04/18/17 14:39 Assessment & Plan - Assessment and Plan (Free Text) Assessment: 76 y/o female patient with PMHx of MDS, Anemia, Atrial Fibrillation, CAD, COPD, Diabetes, Gastritis, HTN, Hypercholesterolemia, Hypothyroidism and Pneumonia seen and evaluated for possible acute pneumonia Plan: 1). Pneumonia - Pneumonia severity index: 5 - No new labs taken at the time of the ED visit - unable to assess patient for sepsis criteria - CXR: Negative; no acute findings. Positive on clinical exam - CT Scan w/o contrast ordered to specify location: -Pending - Sputum culture: -Pending - ID consult - Pulmonology consult - Promethazine/Codine 5 ml q6 - control cough - Duoneb q8 - Moxifloxacin 400 mg IV qd - Vancomycin 1 gm IV q12 - Zosyn 2.25 IV q6 2). HTN - Metoprolol 50 mg BID - Amlodipine 5mg qd - HCTZ 25 mg qd - Losartan/HCTZ qd 3). Hypercholesterolemia - Atorvastatin 10 mg 4). Atrial Fibrillation - Rivaroxaban 15 mg 5). Diabetes - Sliding scale - Sitagliptin 100 mg qd - Actose and glyburide held - please restart on discharge - Diabetic diet 6). Gastritis - Femotidine 20 mg BID 7). DVT prophylaxis - Ambulating - SCD - Patient is already on rivaroxaban - Date & Time Date: 04/18/17 Time: 15:37 <Mark Wolf - Last Filed: 04/18/17 18:50> History of Present Illness - History of Present Illness History of Present Illness: CC: cough x since monday (3 days) HPI/ROS addendum: Fever, cough plus sputum, bouts of cough, dry cough spells as well, was told by ID doc to come to ED she resisted her daughters attempts and physicians attempts to come to hospital until after new years. started on abx avelox x 1 day no improvement finally decided to come in today Present on Admission - Present on Admission Any Indicators Present on Admission: No History of DVT/PE: No History of Uncontrolled Diabetes: Yes Urinary Catheter: No Decubitus Ulcer Present: No Review of Systems - Review of Systems All systems: reviewed and no additional remarkable complaints except Past Patient History - Past Social History Smoking Status: Heavy Smoker > 10 Cigarettes Daily Physical Exam - Respiratory Exam Respiratory Exam: absent: Accessory Muscle Use, Clear to Auscultation Bilateral , Respiratory Distress - GI/Abdominal Exam GI & Abdominal Exam: absent: Organomegaly, Rebound, Tenderness - Extremities Exam Extremities exam: Positive for: pedal edema Results - Vital Signs Recent Vital Signs: Last Vital Signs Temp 96.7 F L 04/18/17 17:22 Pulse 94 H 04/18/17 18:36 Resp 14 04/18/17 17:34 BP 120/66 04/18/17 18:36 Pulse Ox 96 04/18/17 17:22 - Labs Result Diagrams: 04/18/17 16:40 04/18/17 16:40 Labs: Laboratory Results - last 24 hr 04/18/17 04/18/17 04/18/17 15:24 16:40 16:40 WBC 7.3 RBC 3.53 L Hgb 9.0 L Hct 28.6 L MCV 80.9 L MCH 25.6 L MCHC 31.6 L RDW 18.5 H Plt Count 191 MPV 9.1 Neut % (Auto) 81.6 H Lymph % (Auto) 7.7 L Meagher % (Auto) 6.5 Eos % (Auto) 3.3 Baso % (Auto) 0.9 Neut # 5.9 Lymph # 0.6 L Meagher # 0.5 Eos # 0.2 Baso # 0.1 pO2 29 L VBG pH 7.40 VBG pCO2 45 VBG HCO3 25.7 VBG Total CO2 29.3 H VBG O2 Sat (Calc) 57.2 VBG Base Excess 2.5 H VBG Potassium 4.2 Sodium 127.0 L 130 L Chloride 94.0 L 94 L Glucose 116 H Lactate 1.1 FiO2 21.0 Potassium 4.2 Carbon Dioxide 26 Anion Gap 14 BUN 32 H Creatinine 2.4 H Est GFR ( Amer) 24 Est GFR (Non-Af Amer) 20 POC Glucose (mg/dL) Random Glucose 88 Calcium 8.8 Venous Blood Potassium 4.2 04/18/17 16:40 WBC RBC Hgb Hct MCV MCH MCHC RDW Plt Count MPV Neut % (Auto) Lymph % (Auto) Meagher % (Auto) Eos % (Auto) Baso % (Auto) Neut # Lymph # Meagher # Eos # Baso # pO2 VBG pH VBG pCO2 VBG HCO3 VBG Total CO2 VBG O2 Sat (Calc) VBG Base Excess VBG Potassium Sodium Chloride Glucose Lactate FiO2 Potassium Carbon Dioxide Anion Gap BUN Creatinine Est GFR ( Amer) Est GFR (Non-Af Amer) POC Glucose (mg/dL) 79 Random Glucose Calcium Venous Blood Potassium Assessment & Plan - Assessment and Plan (Free Text) Plan: no labs when patient was seen at request of ED for admission labs ordered by our team spoke with daughter at bedside spoke with ID attending re abx coverage High PSI and high risk for sepsis/shock due to being on chemo will hold HCTZ adn Losartan as patient also has new dx of Acute renal failure on iv fluids
[2017-04-18] MEDS ORDERED: Promethazine/Cod 6.25mg-10mg/5ml Syr UD PO PRN (15:41)
[2017-04-18] MEDS: Insulin Lispro (humaLOG) 100 Units/ml Inj SC SCH (16:42)
--- NOTE | 2017-04-18 16:54 | CT ---
PROCEDURE: CT Chest without contrast HISTORY: possible Pneumonia COMPARISON: . Two-view chest TECHNIQUE: Contiguous axial images were obtained through the chest without intravenous contrast enhancement. Sagittal and coronal reconstructions were performed. Radiation dose (DLP): 597.45 mGy-cm. This CT exam was performed using one or more of the following dose reduction techniques: Automated exposure control, adjustment of the mA and/or kV according to patient size, and/or use of iterative reconstruction technique. FINDINGS: LUNGS: Anterior segment infiltrate right middle lobe. Subsegmental infiltrate anterior segment right upper lobe. Focal infiltrates basilar segment left lower lobe. Patchy infiltrates in the lingula and left upper lobe. Underlying manifestations of COPD including hyperinflation. Parabronchial thickening/lower airway disease consistent with pneumonitis/ bronchitis MEDIASTINUM: Unremarkable thoracic aorta. No aneurysm. Cardiomegaly. No evidence of acute, significant cardiovascular disease. Venous access catheter in stable, satisfactory position. Main pulmonary artery unremarkable. No vascular congestion. Multiple small hilar mediastinal lymph nodes none larger than 1.5 cm. PLEURA: Trace bilateral pleural effusions. BONES: No fracture. No destructive lesion. UPPER ABDOMEN: Grossly unremarkable. OTHER FINDINGS: None. IMPRESSION: Multifocal infiltrates likely infectious/ inflammatory. Underlying manifestations of COPD. Trace bilateral pleural effusions.
[2017-04-18 16:56] LABS: BASO # 0.1 K/uL (0.0-0.2); BASO % 0.9 % (0.0-2.0); EOS # 0.2 K/uL (0.0-0.7); EOS % 3.3 % (0.0-4.0); LYMPH # 0.6 K/uL (1.0-4.3); LYMPH % 7.7 % (20.0-40.0); MEAN CELL VOLUME 80.9 fl (81.0-99.0); MEAN CORPUSCULAR HEMOGLOBIN 25.6 pg (27.0-31.0); MEAN CORPUSCULAR HGB CONC 31.6 g/dL (33.0-37.0); MEAN PLATELET VOLUME 9.1 fl (7.2-11.7); MONO # 0.5 K/uL (0.0-0.8); MONO % 6.5 % (0.0-10.0); NEUT # 5.9 K/uL (1.8-7.0); NEUT % 81.6 % (50.0-75.0); RBC 3.53 Mil/uL (3.80-5.20); RED CELL DISTRIBUTION WIDTH 18.5 % (11.5-14.5); WHITE BLOOD COUNT 7.3 K/uL (4.8-10.8)
[2017-04-18 17:14] LABS: CALCIUM 8.8 mg/dL (8.4-10.2)
[2017-04-18] MEDS ORDERED: Albuterol-Ipratrop 3 mg / 0.5 (3 ml) UD INH STA (19:34)
[2017-04-18] MEDS: Sodium Chloride 0.9% 1,000 ML IV SCH (20:19)
[2017-04-18] MEDS: Albuterol-Ipratrop 3 mg / 0.5 (3 ml) UD INH SCH (23:25)
[2017-04-19] MEDS: Sodium Chloride 0.9% 1,000 ML IV SCH ×2 (00:15→09:21)
[2017-04-19 07:07] LABS: BASO # 0.1 K/uL (0.0-0.2); BASO % 1.2 % (0.0-2.0); EOS # 0.5 K/uL (0.0-0.7); EOS % 6.8 % (0.0-4.0); HEMOGLOBIN 10.2 g/dL (12.0-16.0); LYMPH # 0.4 K/uL (1.0-4.3); LYMPH % 5.7 % (20.0-40.0); MEAN CELL VOLUME 81.9 fl (81.0-99.0); MEAN CORPUSCULAR HEMOGLOBIN 26.6 pg (27.0-31.0); MEAN CORPUSCULAR HGB CONC 32.5 g/dL (33.0-37.0); MEAN PLATELET VOLUME 9.1 fl (7.2-11.7); MONO # 0.4 K/uL (0.0-0.8); MONO % 5.7 % (0.0-10.0); NEUT # 5.6 K/uL (1.8-7.0); NEUT % 80.6 % (50.0-75.0); NRBC % 0.1 % (0.0-0.0); RBC 3.82 Mil/uL (3.80-5.20); RED CELL DISTRIBUTION WIDTH 18.9 % (11.5-14.5)
[2017-04-19] MEDS: Insulin Lispro (humaLOG) 100 Units/ml Inj SC SCH ×3 (07:10→16:55)
[2017-04-19 07:19] LABS: ALB/GLOB RATIO 1.4 (1.0-2.1); ALBUMIN 3.2 g/dL (3.5-5.0); CALCIUM 8.7 mg/dL (8.4-10.2)
[2017-04-19] MEDS: Albuterol-Ipratrop 3 mg / 0.5 (3 ml) UD INH SCH ×6 (07:53→23:46)
--- NOTE | 2017-04-19 08:29 | CP.PCM.PN ---
<RussellDaniellemoarleen - Last Filed: 04/19/17 11:22> Subjective - Date & Time of Evaluation Date of Evaluation: 04/19/17 Time of Evaluation: 08:26 - Subjective Subjective: 76 y/o female patient currently on chemotherapy with PMHx of anemia, atrial fibrillation, CAD, COPD, Diabetes, Gastritis, HTN, Hypercholesterolemia, Hypothyroidism, MDS, Pneumonia seen and evaluated at bedside for pneumonia and acute renal failure. Patient reports of having diarrhea after her admission to the hospital. Denies of any overnight F/N/V/C/SOB/CP/headache. Reports that the breathing is a lot better and coughing has almost fully resolved. Denies of any other complains at this time. Objective - Vital Signs/Intake and Output Vital Signs (last 24 hours): Temp Pulse Resp BP Pulse Ox 97.9 F 87 17 118/66 97 04/19/17 00:19 04/19/17 00:19 04/19/17 00:19 04/19/17 00:19 04/19/17 00:19 - Medications Medications: Current Medications Acetaminophen (Tylenol 325mg Tab) 650 mg PO Q6 PRN PRN Reason: Fever >100.4 F Albuterol/Ipratropium (Duoneb 3 Mg/0.5 Mg (3 Ml) Ud) 3 ml INH RQ8 [facility] Last Admin: 04/19/17 07:53 Dose: 3 ml Amlodipine Besylate (Norvasc) 5 mg PO DAILY [facility] Aspirin (Ecotrin) 81 mg PO DAILY [facility] Atorvastatin Calcium (Lipitor) 10 mg PO HS [facility] Last Admin: 04/18/17 22:26 Dose: 10 mg Famotidine (Pepcid) 20 mg PO BID [facility] Last Admin: 04/18/17 18:36 Dose: 20 mg Vancomycin HCl 1 gm/ Sodium (Chloride) 250 mls @ 166.667 mls/hr IVPB Q12 [facility] PRN Reason: Protocol Last Admin: 04/18/17 20:38 Dose: Not Given Piperacillin Sod/Tazobactam (Sod 2.25 gm/ Sodium Chloride) 100 mls @ 100 mls/ hr IVPB Q8 [facility] PRN Reason: Protocol Last Admin: 04/19/17 01:43 Dose: 100 mls/hr Sodium Chloride (Sodium Chloride 0.9%) 1,000 mls @ 125 mls/hr IV .Q8H [facility] Last Admin: 04/19/17 00:15 Dose: Not Given Insulin Human Lispro (Humalog) 0 units SC AC [facility] PRN Reason: Protocol Last Admin: 04/19/17 07:10 Dose: Not Given Metoprolol Tartrate (Lopressor) 50 mg PO BID [facility] Last Admin: 04/18/17 18:36 Dose: 50 mg Moxifloxacin HCl (Avelox) 400 mg PO DAILY [facility] Ondansetron HCl (Zofran Inj) 4 mg IVP Q6 PRN PRN Reason: Nausea/Vomiting Oseltamivir Phosphate (Tamiflu Cap) 75 mg PO BID [facility] PRN Reason: Protocol Last Admin: 04/18/17 21:59 Dose: 75 mg Potassium Chloride (K-Dur 20 Meq Er Tab) 20 meq PO DAILY [facility] Promethazine HCl/Codeine (Phenergan/Codeine Oral Syrup) 5 ml PO Q6 PRN PRN Reason: Cough Rivaroxaban (Xarelto) 15 mg PO QD5 [facility] PRN Reason: Protocol Last Admin: 04/18/17 22:00 Dose: 15 mg Sitagliptin Phosphate (Januvia) 100 mg PO DAILY [facility] - Labs Labs: 04/19/17 06:00 04/19/17 06:00 - Constitutional Appears: Well, Non-toxic, No Acute Distress - Head Exam Head Exam: ATRAUMATIC - Eye Exam Eye Exam: Normal appearance - ENT Exam ENT Exam: Mucous Membranes Moist, Normal Exam - Neck Exam Neck Exam: Full ROM - Respiratory Exam Respiratory Exam: Rhonchi, Wheezes, NORMAL BREATHING PATTERN Additional comments: Mild ronchi auscultated in right upper lobe during examination - Cardiovascular Exam Cardiovascular Exam: REGULAR RHYTHM, +S1, +S2 - GI/Abdominal Exam GI & Abdominal Exam: Soft, Normal Bowel Sounds - Rectal Exam Rectal Exam: Deferred - Extremities Exam Extremities Exam: Full ROM, Normal Inspection, Pedal Edema (+1 pitting edema noted on the distal medial aspect of the leg b/l). absent: Calf Tenderness - Back Exam Back Exam: Full ROM, NORMAL INSPECTION. absent: CVA tenderness (R), vertebral tenderness - Neurological Exam Neurological Exam: Alert, Awake, Oriented x3 - Psychiatric Exam Psychiatric exam: Normal Affect, Normal Mood - Skin Skin Exam: Intact, Normal Color, Warm Assessment and Plan - Assessment and Plan (Free Text) Assessment: 76 y/o female patient with PMHx of MDS, Anemia, Atrial Fibrillation, CAD, COPD, Diabetes, Gastritis, HTN, Hypercholesterolemia, Hypothyroidism and Pneumonia seen and evaluated for acute pneumonia and acute renal failure Plan: 1). Pneumonia - Pneumonia severity index: 5 - CXR: Negative; no acute findings. Positive on clinical exam - CT Scan w/o contrast ordered to specify location: - Multifocal infiltrates likely infectious/inflammatory. Trace of bilateral plural effusions. Underlying COPD manifestations - Sputum culture: -Pending - ID consult - Pulmonology consult - Promethazine/Codine 5 ml q6 - control cough - Duoneb q4 - changed from q8 - Moxifloxacin 400 mg IV qd - Vancomycin 1 gm IV q12 - Zosyn 2.25 IV q6 2). Acute Renal Failure - Nephrology consult 3). HTN - Metoprolol 50 mg BID - Amlodipine 5mg qd - HCTZ 25 mg qd - Held - Losartan/HCTZ qd - Held 4). Hypercholesterolemia - Atorvastatin 10 mg 5). Atrial Fibrillation - Rivaroxaban 15 mg 6). Diabetes - Sliding scale - Sitagliptin 100 mg qd - Actose and glyburide held - please restart on discharge - Diabetic diet 7). Gastritis - Femotidine 20 mg BID 8). DVT prophylaxis - Ambulating - SCD - Patient is already on rivaroxaban <Mark Wolf - Last Filed: 04/19/17 17:24> Objective - Vital Signs/Intake and Output Vital Signs (last 24 hours): Temp Pulse Resp BP Pulse Ox 98.2 F 88 20 106/60 100 04/19/17 16:22 04/19/17 16:22 04/19/17 16:22 04/19/17 16:22 04/19/17 16:22 - Medications Medications: Current Medications Acetaminophen (Tylenol 325mg Tab) 650 mg PO Q6 PRN PRN Reason: Fever >100.4 F Albuterol/Ipratropium (Duoneb 3 Mg/0.5 Mg (3 Ml) Ud) 3 ml INH RQ4 [facility] Last Admin: 04/19/17 11:34 Dose: 3 ml Amlodipine Besylate (Norvasc) 5 mg PO DAILY [facility] Last Admin: 04/19/17 09:13 Dose: 5 mg Aspirin (Ecotrin) 81 mg PO DAILY [facility] Last Admin: 04/19/17 09:12 Dose: 81 mg Atorvastatin Calcium (Lipitor) 10 mg PO HS [facility] Last Admin: 04/18/17 22:26 Dose: 10 mg Famotidine (Pepcid) 20 mg PO BID [facility] Last Admin: 04/19/17 16:23 Dose: 20 mg Furosemide (Lasix) 20 mg PO DAILY [facility] Last Admin: 04/19/17 11:55 Dose: 20 mg Piperacillin Sod/Tazobactam (Sod 2.25 gm/ Sodium Chloride) 100 mls @ 100 mls/ hr IVPB Q8 [facility] PRN Reason: Protocol Last Admin: 04/19/17 16:21 Dose: 100 mls/hr Azithromycin 500 mg/ Sodium (Chloride) 250 mls @ 250 mls/hr IVPB DAILY@1630 [facility] PRN Reason: Protocol Insulin Human Lispro (Humalog) 0 units SC AC [facility] PRN Reason: Protocol Last Admin: 04/19/17 16:55 Dose: Not Given Metoprolol Tartrate (Lopressor) 50 mg PO BID [facility] Last Admin: 04/19/17 16:23 Dose: 50 mg Ondansetron HCl (Zofran Inj) 4 mg IVP Q6 PRN PRN Reason: Nausea/Vomiting Potassium Chloride (K-Dur 20 Meq Er Tab) 20 meq PO DAILY [facility] Last Admin: 04/19/17 09:11 Dose: 20 meq Promethazine HCl/Codeine (Phenergan/Codeine Oral Syrup) 5 ml PO Q6 PRN PRN Reason: Cough Rivaroxaban (Xarelto) 15 mg PO QD5 [facility] PRN Reason: Protocol Last Admin: 04/19/17 16:24 Dose: 15 mg Sitagliptin Phosphate (Januvia) 100 mg PO DAILY [facility] Last Admin: 04/19/17 09:11 Dose: 100 mg - Labs Labs: 04/19/17 06:00 04/19/17 06:00 Attending/Attestation - Attestation I have personally seen and examined this patient.: Yes I have fully participated in the care of the patient.: Yes I have reviewed all pertinent clinical information, including history, physical exam and plan: Yes Notes (Text): feels better cough improved exam shows continued wheezing switched nebx to q4 spoke with pulm recommended iv steroids no further diarrhea
--- NOTE | 2017-04-19 08:53 | CON ---
DATE: INFECTIOUS DISEASE CONSULT HISTORY OF PRESENT ILLNESS: Patient is a 76-year-old female who has myelodysplastic syndrome and also history of anemia, atrial fibrillation, CAD, COPD, diabetes, gastritis, hypertension, hypercholesterolemia and hyperthyroidism. Patient had received chemotherapy on Monday, and this weekend she felt shortness of breath, cough and might have been having a fever although she is not sure. She states ,however that she hsd chills. She called me on Monday. I advised her to go to the ER, but she did not want to go at that time so I started her on Avelox. Patient came to the ER after receiving chemotherapy today for her MDS( chest x-ray was there) and she was sent there for further evaluation based on those results.From there admission was advised. is is her covering oncologist, and she sees Bernardino Nunes regularly. PHYSICAL EXAMINATION: GENERAL: The patient is alert, cooperative, and oriented to time and place, but is noted to have some distress because of shortness of breath. HEENT: Within normal limits. NECK: Supple. LUNGS: She has rhonchi in the right upper lobe and also on the left lower lobe. Basically she has congestion bilaterally with some scattered wheezing. HEART: Regular sinus rhythm. ABDOMEN: Soft, positive bowel sound. EXTREMITIES: no cc but has significant pedal edema LABORATORY DATA: Her CT scan shows multifocal infiltrates, likely infectious inflammatory etiology. Creatinine is 2.4, she had been down to 1, and in previous history, she had had a creatinine of 3. GFR is 20. Sodium 130, potassium 4.2, chloride 94, BUN 32. CBC: WBC is 7.3, hemoglobin 9.0, platelet count 191, neutrophils are 81.6%, bands 1%. ASSESSMENT: At this point, her diagnosis is myelodysplastic syndrome, for which she is receiving chemotherapy, atrial fibrillation, coronary artery disease, and the admitting diagnosis is pneumonia. PLAN: We will treat her intravenously with Zosyn and Avelox,Vancomycin has been d/lulu. I have also added Tamiflu as influenza A and B was not done, and pending those results, we will discontinue it if not necessary. Patient is to be followed by Dr. Bajwa who is her primary physician at this time. Dr. Vazquez will see pulmonary johnson. Hospitalist has ordered nephrology consult after review of todays and recent renal function tests. Mycoplasma /Legonella/Cold Agglutinins/Influenza A&B ordered Paresh Suggs MD [facility]
[2017-04-19] MEDS ORDERED: Patient's Own Med (Losartan/Hydrochlorothiazide [Losartan-Hctz 100-25 Mg Tab] 1 TAB) PO SCH (09:00)
[2017-04-19] MEDS: Potassium Chloride 20 mEq ER Tab PO SCH (09:11)
--- NOTE | 2017-04-19 09:37 | CP.PCM.CON ---
History of Present Illness - History of Present Illness History of Present Illness: Covering Dr. Nunes 76 year old female with a history of Afib, COPD, DM, MDS on hypomethylating agent treatment with Dr. Ellen Nunes, admitted with pneumonia. The patient was seen by me in outpatient chemo and had indicated she had fevers over the weekend of 101 F with productive cough for green sputum. She contacted. Dr. Suggs who prescribed oral moxifloxacin with improvement in her symptoms. Due to her persistant symptoms, she underwent a CXR and eventual CT chest which revealed multifocal infiltrates. She is currently receiving antibiotics and notes to improvement in her breathing and cough. Past medical history: Afib, COPD, DM, MDS Past surgical history: Portacath Family history: Denies Social history: former 2ppd x 15 years Allergies: NKA Review of systems: All remaining review of systems including HEENT, cardiovascular, respiratory, gastrointestinal, genitourinary, musculoskeletal, dermatologic, neurologic, and psychiatric are negative unless mentioned in the HPI. Past Patient History - Past Medical History & Family History Past Medical History?: Yes - Past Social History Smoking Status: Heavy Smoker > 10 Cigarettes Daily - CARDIAC Hx Atrial Fibrillation: Yes Hx Hypercholesterolemia: Yes Hx Hypertension: Yes - PULMONARY Hx Chronic Obstructive Pulmonary Disease (COPD): Yes Hx Pneumonia: Yes - HEENT Other/Comment: Right ear -deaf - ENDOCRINE/METABOLIC Hx Diabetes Mellitus Type 2: Yes Hx Hypothyroidism: Yes - HEMATOLOGICAL/ONCOLOGICAL Hx Anemia: Yes Hx Human Immunodeficiency Virus (HIV): No - MUSCULOSKELETAL/RHEUMATOLOGICAL Hx Back Pain: Yes (epidural) Hx Falls: No - GASTROINTESTINAL Hx Gastritis: Yes - PSYCHIATRIC Hx Emotional Abuse: No Hx Physical Abuse: No Hx Substance Use: No - SURGICAL HISTORY Hx Coronary Artery Bypass Graft: Yes Hx Coronary Stent: Yes - ANESTHESIA Hx Anesthesia: Yes Hx Anesthesia Reactions: No Hx Malignant Hyperthermia: No Meds Allergies/Adverse Reactions: Allergies Allergy/AdvReac Type Severity Reaction Status Date / Time No Known Allergies Allergy Verified 04/11/17 15:14 - Medications Medications: Current Medications Acetaminophen (Tylenol 325mg Tab) 650 mg PO Q6 PRN PRN Reason: Fever >100.4 F Albuterol/Ipratropium (Duoneb 3 Mg/0.5 Mg (3 Ml) Ud) 3 ml INH RQ8 [facility] Last Admin: 04/19/17 07:53 Dose: 3 ml Amlodipine Besylate (Norvasc) 5 mg PO DAILY [facility] Last Admin: 04/19/17 09:13 Dose: 5 mg Aspirin (Ecotrin) 81 mg PO DAILY [facility] Last Admin: 04/19/17 09:12 Dose: 81 mg Atorvastatin Calcium (Lipitor) 10 mg PO HS [facility] Last Admin: 04/18/17 22:26 Dose: 10 mg Famotidine (Pepcid) 20 mg PO BID [facility] Last Admin: 04/19/17 09:11 Dose: 20 mg Vancomycin HCl 1 gm/ Sodium (Chloride) 250 mls @ 166.667 mls/hr IVPB Q12 [facility] PRN Reason: Protocol Last Admin: 04/18/17 20:38 Dose: Not Given Piperacillin Sod/Tazobactam (Sod 2.25 gm/ Sodium Chloride) 100 mls @ 100 mls/ hr IVPB Q8 [facility] PRN Reason: Protocol Last Admin: 04/19/17 09:17 Dose: 100 mls/hr Sodium Chloride (Sodium Chloride 0.9%) 1,000 mls @ 125 mls/hr IV .Q8H [facility] Last Admin: 04/19/17 09:21 Dose: 125 mls/hr Insulin Human Lispro (Humalog) 0 units SC AC [facility] PRN Reason: Protocol Last Admin: 04/19/17 07:10 Dose: Not Given Metoprolol Tartrate (Lopressor) 50 mg PO BID [facility] Last Admin: 04/19/17 09:12 Dose: 50 mg Moxifloxacin HCl (Avelox) 400 mg PO DAILY [facility] Last Admin: 04/19/17 09:12 Dose: 400 mg Ondansetron HCl (Zofran Inj) 4 mg IVP Q6 PRN PRN Reason: Nausea/Vomiting Oseltamivir Phosphate (Tamiflu Cap) 75 mg PO BID [facility] PRN Reason: Protocol Last Admin: 04/19/17 09:14 Dose: 75 mg Potassium Chloride (K-Dur 20 Meq Er Tab) 20 meq PO DAILY [facility] Last Admin: 04/19/17 09:11 Dose: 20 meq Promethazine HCl/Codeine (Phenergan/Codeine Oral Syrup) 5 ml PO Q6 PRN PRN Reason: Cough Rivaroxaban (Xarelto) 15 mg PO QD5 [facility] PRN Reason: Protocol Last Admin: 04/18/17 22:00 Dose: 15 mg Sitagliptin Phosphate (Januvia) 100 mg PO DAILY [facility] Last Admin: 04/19/17 09:11 Dose: 100 mg Physical Exam - Head Exam Head Exam: ATRAUMATIC - Eye Exam Eye Exam: Normal appearance - ENT Exam ENT Exam: Mucous Membranes Dry - Respiratory Exam Respiratory Exam: NORMAL BREATHING PATTERN - Cardiovascular Exam Cardiovascular Exam: +S1, +S2 - GI/Abdominal Exam GI & Abdominal Exam: Normal Bowel Sounds - Extremities Exam Extremities exam: Positive for: pedal edema Results - Vital Signs Recent Vital Signs: Last Vital Signs Temp 98 F 04/19/17 08:28 Pulse 100 H 04/19/17 08:28 Resp 20 04/19/17 08:28 BP 105/67 04/19/17 08:28 Pulse Ox 99 04/19/17 08:28 - Labs Result Diagrams: 04/19/17 06:00 04/19/17 06:00 Labs: Laboratory Results - last 24 hr 04/18/17 04/18/17 04/18/17 15:24 16:40 16:40 WBC 7.3 RBC 3.53 L Hgb 9.0 L Hct 28.6 L MCV 80.9 L MCH 25.6 L MCHC 31.6 L RDW 18.5 H Plt Count 191 MPV 9.1 Neut % (Auto) 81.6 H Lymph % (Auto) 7.7 L [place] % (Auto) 6.5 Eos % (Auto) 3.3 Baso % (Auto) 0.9 Neut # 5.9 Lymph # 0.6 L [place] # 0.5 Eos # 0.2 Baso # 0.1 pO2 29 L VBG pH 7.40 VBG pCO2 45 VBG HCO3 25.7 VBG Total CO2 29.3 H VBG O2 Sat (Calc) 57.2 VBG Base Excess 2.5 H VBG Potassium 4.2 Sodium 127.0 L 130 L Chloride 94.0 L 94 L Glucose 116 H Lactate 1.1 FiO2 21.0 Potassium 4.2 Carbon Dioxide 26 Anion Gap 14 BUN 32 H Creatinine 2.4 H Est GFR ( Amer) 24 Est GFR (Non-Af Amer) 20 POC Glucose (mg/dL) Random Glucose 88 Calcium 8.8 Total Bilirubin AST ALT Alkaline Phosphatase Total Protein Albumin Globulin Albumin/Globulin Ratio Procalcitonin Venous Blood Potassium 4.2 Influenza Typ A,B (EIA) 04/18/17 04/18/17 04/18/17 16:40 16:40 19:23 WBC RBC Hgb Hct MCV MCH MCHC RDW Plt Count MPV Neut % (Auto) Lymph % (Auto) [place] % (Auto) Eos % (Auto) Baso % (Auto) Neut # Lymph # [place] # Eos # Baso # pO2 VBG pH VBG pCO2 VBG HCO3 VBG Total CO2 VBG O2 Sat (Calc) VBG Base Excess VBG Potassium Sodium Chloride Glucose Lactate FiO2 Potassium Carbon Dioxide Anion Gap BUN Creatinine Est GFR ( Amer) Est GFR (Non-Af Amer) POC Glucose (mg/dL) 79 Random Glucose Calcium Total Bilirubin AST ALT Alkaline Phosphatase Total Protein Albumin Globulin Albumin/Globulin Ratio Procalcitonin 0.78 H Venous Blood Potassium Influenza Typ A,B (EIA) Negative for flu a/b 04/18/17 04/19/17 04/19/17 23:22 06:00 06:00 WBC 7.0 RBC 3.82 Hgb 10.2 L Hct 31.3 L MCV 81.9 MCH 26.6 L MCHC 32.5 L RDW 18.9 H Plt Count 203 MPV 9.1 Neut % (Auto) 80.6 H Lymph % (Auto) 5.7 L [place] % (Auto) 5.7 Eos % (Auto) 6.8 H Baso % (Auto) 1.2 Neut # 5.6 Lymph # 0.4 L [place] # 0.4 Eos # 0.5 Baso # 0.1 pO2 VBG pH VBG pCO2 VBG HCO3 VBG Total CO2 VBG O2 Sat (Calc) VBG Base Excess VBG Potassium Sodium 132 Chloride 98 Glucose Lactate FiO2 Potassium 4.4 Carbon Dioxide 22 Anion Gap 16 BUN 32 H Creatinine 2.4 H Est GFR ( Amer) 24 Est GFR (Non-Af Amer) 20 POC Glucose (mg/dL) 67 Random Glucose 104 Calcium 8.7 Total Bilirubin 0.7 AST 27 ALT 44 Alkaline Phosphatase 117 Total Protein 5.6 L Albumin 3.2 L Globulin 2.4 Albumin/Globulin Ratio 1.4 Procalcitonin Venous Blood Potassium Influenza Typ A,B (EIA) 04/19/17 06:11 WBC RBC Hgb Hct MCV MCH MCHC RDW Plt Count MPV Neut % (Auto) Lymph % (Auto) [place] % (Auto) Eos % (Auto) Baso % (Auto) Neut # Lymph # [place] # Eos # Baso # pO2 VBG pH VBG pCO2 VBG HCO3 VBG Total CO2 VBG O2 Sat (Calc) VBG Base Excess VBG Potassium Sodium Chloride Glucose Lactate FiO2 Potassium Carbon Dioxide Anion Gap BUN Creatinine Est GFR ( Amer) Est GFR (Non-Af Amer) POC Glucose (mg/dL) 112 H Random Glucose Calcium Total Bilirubin AST ALT Alkaline Phosphatase Total Protein Albumin Globulin Albumin/Globulin Ratio Procalcitonin Venous Blood Potassium Influenza Typ A,B (EIA) Assessment & Plan (1) Anemia Assessment and Plan: secondary to MDS and anemia of CKD Status: Acute Priority: High (2) MDS (myelodysplastic syndrome) Assessment and Plan: cont outpatient azacytadine with Dr. Nunes Thank you for this interesting consult. Status: Acute
--- NOTE | 2017-04-19 09:57 | CP.PCM.CON ---
History of Present Illness - History of Present Illness History of Present Illness: This 76 year old female is known to me from the outpatient setting. She was at the infusion center receiving treatment for MDS. She had a significant congested cough w/o fever, but an unusually high WBC level for her.A chest x- ray was requested which showed increased BV markings and possible scattered patchy early infiltrates. She was referred to the emergency room for evaluation where a CT chest showed multifocal patchy infiltrates in both lungs. Past Patient History - Past Medical History & Family History Past Medical History?: Yes - Past Social History Smoking Status: Heavy Smoker > 10 Cigarettes Daily - CARDIAC Hx Atrial Fibrillation: Yes Hx Hypercholesterolemia: Yes Hx Hypertension: Yes - PULMONARY Hx Chronic Obstructive Pulmonary Disease (COPD): Yes Hx Pneumonia: Yes - HEENT Other/Comment: Right ear -deaf - ENDOCRINE/METABOLIC Hx Diabetes Mellitus Type 2: Yes Hx Hypothyroidism: Yes - HEMATOLOGICAL/ONCOLOGICAL Hx Anemia: Yes Hx Human Immunodeficiency Virus (HIV): No - MUSCULOSKELETAL/RHEUMATOLOGICAL Hx Back Pain: Yes (epidural) Hx Falls: No - GASTROINTESTINAL Hx Gastritis: Yes - PSYCHIATRIC Hx Emotional Abuse: No Hx Physical Abuse: No Hx Substance Use: No - SURGICAL HISTORY Hx Coronary Artery Bypass Graft: Yes Hx Coronary Stent: Yes - ANESTHESIA Hx Anesthesia: Yes Hx Anesthesia Reactions: No Hx Malignant Hyperthermia: No Meds Allergies/Adverse Reactions: Allergies Allergy/AdvReac Type Severity Reaction Status Date / Time No Known Allergies Allergy Verified 04/11/17 15:14 - Medications Medications: Current Medications Acetaminophen (Tylenol 325mg Tab) 650 mg PO Q6 PRN PRN Reason: Fever >100.4 F Albuterol/Ipratropium (Duoneb 3 Mg/0.5 Mg (3 Ml) Ud) 3 ml INH RQ8 [facility] Last Admin: 04/19/17 07:53 Dose: 3 ml Amlodipine Besylate (Norvasc) 5 mg PO DAILY [facility] Last Admin: 04/19/17 09:13 Dose: 5 mg Aspirin (Ecotrin) 81 mg PO DAILY [facility] Last Admin: 04/19/17 09:12 Dose: 81 mg Atorvastatin Calcium (Lipitor) 10 mg PO HS [facility] Last Admin: 04/18/17 22:26 Dose: 10 mg Famotidine (Pepcid) 20 mg PO BID [facility] Last Admin: 04/19/17 09:11 Dose: 20 mg Vancomycin HCl 1 gm/ Sodium (Chloride) 250 mls @ 166.667 mls/hr IVPB Q12 [facility] PRN Reason: Protocol Last Admin: 04/18/17 20:38 Dose: Not Given Piperacillin Sod/Tazobactam (Sod 2.25 gm/ Sodium Chloride) 100 mls @ 100 mls/ hr IVPB Q8 [facility] PRN Reason: Protocol Last Admin: 04/19/17 09:17 Dose: 100 mls/hr Sodium Chloride (Sodium Chloride 0.9%) 1,000 mls @ 125 mls/hr IV .Q8H [facility] Last Admin: 04/19/17 09:21 Dose: 125 mls/hr Insulin Human Lispro (Humalog) 0 units SC AC [facility] PRN Reason: Protocol Last Admin: 04/19/17 07:10 Dose: Not Given Metoprolol Tartrate (Lopressor) 50 mg PO BID [facility] Last Admin: 04/19/17 09:12 Dose: 50 mg Moxifloxacin HCl (Avelox) 400 mg PO DAILY [facility] Last Admin: 04/19/17 09:12 Dose: 400 mg Ondansetron HCl (Zofran Inj) 4 mg IVP Q6 PRN PRN Reason: Nausea/Vomiting Oseltamivir Phosphate (Tamiflu Cap) 75 mg PO BID [facility] PRN Reason: Protocol Last Admin: 04/19/17 09:14 Dose: 75 mg Potassium Chloride (K-Dur 20 Meq Er Tab) 20 meq PO DAILY [facility] Last Admin: 04/19/17 09:11 Dose: 20 meq Promethazine HCl/Codeine (Phenergan/Codeine Oral Syrup) 5 ml PO Q6 PRN PRN Reason: Cough Rivaroxaban (Xarelto) 15 mg PO QD5 [facility] PRN Reason: Protocol Last Admin: 04/18/17 22:00 Dose: 15 mg Sitagliptin Phosphate (Januvia) 100 mg PO DAILY [facility] Last Admin: 04/19/17 09:11 Dose: 100 mg Results - Vital Signs Recent Vital Signs: Last Vital Signs Temp 98 F 04/19/17 08:28 Pulse 100 H 04/19/17 08:28 Resp 20 04/19/17 08:28 BP 105/67 04/19/17 08:28 Pulse Ox 99 04/19/17 08:28 - Labs Result Diagrams: 04/19/17 06:00 04/19/17 06:00 Labs: Laboratory Results - last 24 hr 01/02/18 01/02/18 01/02/18 15:24 16:40 16:40 WBC 7.3 RBC 3.53 L Hgb 9.0 L Hct 28.6 L MCV 80.9 L MCH 25.6 L MCHC 31.6 L RDW 18.5 H Plt Count 191 MPV 9.1 Neut % (Auto) 81.6 H Lymph % (Auto) 7.7 L [place] % (Auto) 6.5 Eos % (Auto) 3.3 Baso % (Auto) 0.9 Neut # 5.9 Lymph # 0.6 L [place] # 0.5 Eos # 0.2 Baso # 0.1 pO2 29 L VBG pH 7.40 VBG pCO2 45 VBG HCO3 25.7 VBG Total CO2 29.3 H VBG O2 Sat (Calc) 57.2 VBG Base Excess 2.5 H VBG Potassium 4.2 Sodium 127.0 L 130 L Chloride 94.0 L 94 L Glucose 116 H Lactate 1.1 FiO2 21.0 Potassium 4.2 Carbon Dioxide 26 Anion Gap 14 BUN 32 H Creatinine 2.4 H Est GFR ( Amer) 24 Est GFR (Non-Af Amer) 20 POC Glucose (mg/dL) Random Glucose 88 Calcium 8.8 Total Bilirubin AST ALT Alkaline Phosphatase Total Protein Albumin Globulin Albumin/Globulin Ratio Procalcitonin Venous Blood Potassium 4.2 Influenza Typ A,B (EIA) 04/18/17 04/18/17 04/18/17 16:40 16:40 19:23 WBC RBC Hgb Hct MCV MCH MCHC RDW Plt Count MPV Neut % (Auto) Lymph % (Auto) [place] % (Auto) Eos % (Auto) Baso % (Auto) Neut # Lymph # [place] # Eos # Baso # pO2 VBG pH VBG pCO2 VBG HCO3 VBG Total CO2 VBG O2 Sat (Calc) VBG Base Excess VBG Potassium Sodium Chloride Glucose Lactate FiO2 Potassium Carbon Dioxide Anion Gap BUN Creatinine Est GFR ( Amer) Est GFR (Non-Af Amer) POC Glucose (mg/dL) 79 Random Glucose Calcium Total Bilirubin AST ALT Alkaline Phosphatase Total Protein Albumin Globulin Albumin/Globulin Ratio Procalcitonin 0.78 H Venous Blood Potassium Influenza Typ A,B (EIA) Negative for flu a/b 04/18/17 04/19/17 04/19/17 23:22 06:00 06:00 WBC 7.0 RBC 3.82 Hgb 10.2 L Hct 31.3 L MCV 81.9 MCH 26.6 L MCHC 32.5 L RDW 18.9 H Plt Count 203 MPV 9.1 Neut % (Auto) 80.6 H Lymph % (Auto) 5.7 L [place] % (Auto) 5.7 Eos % (Auto) 6.8 H Baso % (Auto) 1.2 Neut # 5.6 Lymph # 0.4 L [place] # 0.4 Eos # 0.5 Baso # 0.1 pO2 VBG pH VBG pCO2 VBG HCO3 VBG Total CO2 VBG O2 Sat (Calc) VBG Base Excess VBG Potassium Sodium 132 Chloride 98 Glucose Lactate FiO2 Potassium 4.4 Carbon Dioxide 22 Anion Gap 16 BUN 32 H Creatinine 2.4 H Est GFR ( Amer) 24 Est GFR (Non-Af Amer) 20 POC Glucose (mg/dL) 67 Random Glucose 104 Calcium 8.7 Total Bilirubin 0.7 AST 27 ALT 44 Alkaline Phosphatase 117 Total Protein 5.6 L Albumin 3.2 L Globulin 2.4 Albumin/Globulin Ratio 1.4 Procalcitonin Venous Blood Potassium Influenza Typ A,B (EIA) 04/19/17 06:11 WBC RBC Hgb Hct MCV MCH MCHC RDW Plt Count MPV Neut % (Auto) Lymph % (Auto) [place] % (Auto) Eos % (Auto) Baso % (Auto) Neut # Lymph # [place] # Eos # Baso # pO2 VBG pH VBG pCO2 VBG HCO3 VBG Total CO2 VBG O2 Sat (Calc) VBG Base Excess VBG Potassium Sodium Chloride Glucose Lactate FiO2 Potassium Carbon Dioxide Anion Gap BUN Creatinine Est GFR ( Amer) Est GFR (Non-Af Amer) POC Glucose (mg/dL) 112 H Random Glucose Calcium Total Bilirubin AST ALT Alkaline Phosphatase Total Protein Albumin Globulin Albumin/Globulin Ratio Procalcitonin Venous Blood Potassium Influenza Typ A,B (EIA) Assessment & Plan (1) Bronchopneumonia Status: Acute Priority: High (2) Atrial fibrillation Status: Acute Priority: High (3) 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 Priority: High - Date & Time Date: 04/19/17 Time: 09:57
--- NOTE | 2017-04-19 10:31 | CP.PCM.CON ---
History of Present Illness - History of Present Illness History of Present Illness: Patient is a 76 years of age was called to see for abnormal kidney function. Patient admitted ruling out pneumonia and also she was complaining of diarrhea fever. She was started on IV antibiotics. Including vancomycin 1 Gm every 12 hours. Patient has history of malignancy and she is receiving chemotherapy and she has just recently received chemotherapy apparently. Patient is not aware about kidney problem History of diabetes hypertension And have past medical history PMH: Anemia, Atrial Fibrillation, CAD, COPD, Diabetes, Gastritis, HTN, Hypercholesterolemia, Hypothyroidism, Malignancy, Pneumonia Denies: HIV Review of system as noted below Review of Systems - Constitutional Constitutional: Chills, Malaise - EENT Eyes: As Per HPI Nose/Mouth/Throat: absent: Epistaxis, Nasal Discharge - Breasts Breasts: As Per HPI - Cardiovascular Cardiovascular: Dyspnea, Leg Edema, Pedal Edema. absent: Chest Pain, Orthopnea , Syncope - Respiratory Respiratory: Cough, Dyspnea - Gastrointestinal Gastrointestinal: Diarrhea. absent: Abdominal Pain - Genitourinary Genitourinary: Nocturia - Musculoskeletal Musculoskeletal: Back Pain, Muscle Weakness - Integumentary Integumentary: As Per HPI. absent: Alopecia - Neurological Neurological: absent: Confusion, Syncope - Psychiatric Psychiatric: absent: Confusion Past Patient History - Past Medical History & Family History Past Medical History?: Yes - Past Social History Smoking Status: Heavy Smoker > 10 Cigarettes Daily - CARDIAC Hx Atrial Fibrillation: Yes Hx Hypercholesterolemia: Yes Hx Hypertension: Yes - PULMONARY Hx Chronic Obstructive Pulmonary Disease (COPD): Yes Hx Pneumonia: Yes - HEENT Other/Comment: Right ear -deaf - ENDOCRINE/METABOLIC Hx Diabetes Mellitus Type 2: Yes Hx Hypothyroidism: Yes - HEMATOLOGICAL/ONCOLOGICAL Hx Anemia: Yes Hx Human Immunodeficiency Virus (HIV): No - MUSCULOSKELETAL/RHEUMATOLOGICAL Hx Back Pain: Yes (epidural) Hx Falls: No - GASTROINTESTINAL Hx Gastritis: Yes - PSYCHIATRIC Hx Emotional Abuse: No Hx Physical Abuse: No Hx Substance Use: No - SURGICAL HISTORY Hx Coronary Artery Bypass Graft: Yes Hx Coronary Stent: Yes - ANESTHESIA Hx Anesthesia: Yes Hx Anesthesia Reactions: No Hx Malignant Hyperthermia: No Meds Allergies/Adverse Reactions: Allergies Allergy/AdvReac Type Severity Reaction Status Date / Time No Known Allergies Allergy Verified 04/11/17 15:14 - Medications Medications: Current Medications Acetaminophen (Tylenol 325mg Tab) 650 mg PO Q6 PRN PRN Reason: Fever >100.4 F Albuterol/Ipratropium (Duoneb 3 Mg/0.5 Mg (3 Ml) Ud) 3 ml INH RQ4 [facility] Amlodipine Besylate (Norvasc) 5 mg PO DAILY [facility] Last Admin: 04/19/17 09:13 Dose: 5 mg Aspirin (Ecotrin) 81 mg PO DAILY [facility] Last Admin: 04/19/17 09:12 Dose: 81 mg Atorvastatin Calcium (Lipitor) 10 mg PO HS [facility] Last Admin: 04/18/17 22:26 Dose: 10 mg Famotidine (Pepcid) 20 mg PO BID [facility] Last Admin: 04/19/17 09:11 Dose: 20 mg Piperacillin Sod/Tazobactam (Sod 2.25 gm/ Sodium Chloride) 100 mls @ 100 mls/ hr IVPB Q8 [facility] PRN Reason: Protocol Last Admin: 04/19/17 09:17 Dose: 100 mls/hr Sodium Chloride (Sodium Chloride 0.9%) 1,000 mls @ 125 mls/hr IV .Q8H [facility] Last Admin: 04/19/17 09:21 Dose: 125 mls/hr Insulin Human Lispro (Humalog) 0 units SC AC [facility] PRN Reason: Protocol Last Admin: 04/19/17 07:10 Dose: Not Given Metoprolol Tartrate (Lopressor) 50 mg PO BID [facility] Last Admin: 04/19/17 09:12 Dose: 50 mg Moxifloxacin HCl (Avelox) 400 mg PO DAILY [facility] Last Admin: 04/19/17 09:12 Dose: 400 mg Ondansetron HCl (Zofran Inj) 4 mg IVP Q6 PRN PRN Reason: Nausea/Vomiting Potassium Chloride (K-Dur 20 Meq Er Tab) 20 meq PO DAILY [facility] Last Admin: 04/19/17 09:11 Dose: 20 meq Promethazine HCl/Codeine (Phenergan/Codeine Oral Syrup) 5 ml PO Q6 PRN PRN Reason: Cough Rivaroxaban (Xarelto) 15 mg PO QD5 [facility] PRN Reason: Protocol Last Admin: 04/18/17 22:00 Dose: 15 mg Sitagliptin Phosphate (Januvia) 100 mg PO DAILY [facility] Last Admin: 04/19/17 09:11 Dose: 100 mg Physical Exam - Constitutional Appears: No Acute Distress - Eye Exam Eye Exam: Conjunctival injection - ENT Exam ENT Exam: Mucous Membranes Moist - Neck Exam Neck exam: Negative for: Lymphadenopathy - Respiratory Exam Respiratory Exam: Rhonchi. absent: Chest Wall Tenderness - Cardiovascular Exam Cardiovascular Exam: Irregular Rhythm. absent: REGULAR RHYTHM, JVD, Rubs - GI/Abdominal Exam GI & Abdominal Exam: Normal Bowel Sounds. absent: Guarding - Extremities Exam Extremities exam: Negative for: calf tenderness - Back Exam Back exam: absent: CVA tenderness (L), CVA tenderness (R) - Neurological Exam Neurological exam: Alert - Psychiatric Exam Psychiatric exam: Normal Affect - Skin Skin Exam: Pallor Results - Vital Signs Recent Vital Signs: Last Vital Signs Temp 98 F 04/19/17 08:28 Pulse 100 H 04/19/17 08:28 Resp 20 04/19/17 08:28 BP 105/67 04/19/17 08:28 Pulse Ox 99 04/19/17 08:28 - Labs Result Diagrams: 04/19/17 06:00 04/19/17 06:00 Labs: Laboratory Results - last 24 hr 04/18/17 04/18/17 04/18/17 15:24 16:40 16:40 WBC 7.3 RBC 3.53 L Hgb 9.0 L Hct 28.6 L MCV 80.9 L MCH 25.6 L MCHC 31.6 L RDW 18.5 H Plt Count 191 MPV 9.1 Neut % (Auto) 81.6 H Lymph % (Auto) 7.7 L Robeson % (Auto) 6.5 Eos % (Auto) 3.3 Baso % (Auto) 0.9 Neut # 5.9 Lymph # 0.6 L Robeson # 0.5 Eos # 0.2 Baso # 0.1 pO2 29 L VBG pH 7.40 VBG pCO2 45 VBG HCO3 25.7 VBG Total CO2 29.3 H VBG O2 Sat (Calc) 57.2 VBG Base Excess 2.5 H VBG Potassium 4.2 Sodium 127.0 L 130 L Chloride 94.0 L 94 L Glucose 116 H Lactate 1.1 FiO2 21.0 Potassium 4.2 Carbon Dioxide 26 Anion Gap 14 BUN 32 H Creatinine 2.4 H Est GFR ( Amer) 24 Est GFR (Non-Af Amer) 20 POC Glucose (mg/dL) Random Glucose 88 Calcium 8.8 Total Bilirubin AST ALT Alkaline Phosphatase Total Protein Albumin Globulin Albumin/Globulin Ratio Procalcitonin Venous Blood Potassium 4.2 Influenza Typ A,B (EIA) 04/18/17 04/18/17 04/18/17 16:40 16:40 19:23 WBC RBC Hgb Hct MCV MCH MCHC RDW Plt Count MPV Neut % (Auto) Lymph % (Auto) Robeson % (Auto) Eos % (Auto) Baso % (Auto) Neut # Lymph # Robeson # Eos # Baso # pO2 VBG pH VBG pCO2 VBG HCO3 VBG Total CO2 VBG O2 Sat (Calc) VBG Base Excess VBG Potassium Sodium Chloride Glucose Lactate FiO2 Potassium Carbon Dioxide Anion Gap BUN Creatinine Est GFR ( Amer) Est GFR (Non-Af Amer) POC Glucose (mg/dL) 79 Random Glucose Calcium Total Bilirubin AST ALT Alkaline Phosphatase Total Protein Albumin Globulin Albumin/Globulin Ratio Procalcitonin 0.78 H Venous Blood Potassium Influenza Typ A,B (EIA) Negative for flu a/b 04/18/17 04/19/17 04/19/17 23:22 06:00 06:00 WBC 7.0 RBC 3.82 Hgb 10.2 L Hct 31.3 L MCV 81.9 MCH 26.6 L MCHC 32.5 L RDW 18.9 H Plt Count 203 MPV 9.1 Neut % (Auto) 80.6 H Lymph % (Auto) 5.7 L Robeson % (Auto) 5.7 Eos % (Auto) 6.8 H Baso % (Auto) 1.2 Neut # 5.6 Lymph # 0.4 L Robeson # 0.4 Eos # 0.5 Baso # 0.1 pO2 VBG pH VBG pCO2 VBG HCO3 VBG Total CO2 VBG O2 Sat (Calc) VBG Base Excess VBG Potassium Sodium 132 Chloride 98 Glucose Lactate FiO2 Potassium 4.4 Carbon Dioxide 22 Anion Gap 16 BUN 32 H Creatinine 2.4 H Est GFR ( Amer) 24 Est GFR (Non-Af Amer) 20 POC Glucose (mg/dL) 67 Random Glucose 104 Calcium 8.7 Total Bilirubin 0.7 AST 27 ALT 44 Alkaline Phosphatase 117 Total Protein 5.6 L Albumin 3.2 L Globulin 2.4 Albumin/Globulin Ratio 1.4 Procalcitonin Venous Blood Potassium Influenza Typ A,B (EIA) 04/19/17 06:11 WBC RBC Hgb Hct MCV MCH MCHC RDW Plt Count MPV Neut % (Auto) Lymph % (Auto) Robeson % (Auto) Eos % (Auto) Baso % (Auto) Neut # Lymph # Robeson # Eos # Baso # pO2 VBG pH VBG pCO2 VBG HCO3 VBG Total CO2 VBG O2 Sat (Calc) VBG Base Excess VBG Potassium Sodium Chloride Glucose Lactate FiO2 Potassium Carbon Dioxide Anion Gap BUN Creatinine Est GFR ( Amer) Est GFR (Non-Af Amer) POC Glucose (mg/dL) 112 H Random Glucose Calcium Total Bilirubin AST ALT Alkaline Phosphatase Total Protein Albumin Globulin Albumin/Globulin Ratio Procalcitonin Venous Blood Potassium Influenza Typ A,B (EIA) Assessment & Plan (1) Acute kidney injury Assessment and Plan: Rule out acute kidney injury. I reviewed the blood test since November of last year with serum creatinine was as high as 3.3 then serum creatinine came down by the Center battery was 1.0 and serum creatinine has noted over 2.4 Most likely the etiology of acute kidney injury multifactorial perhaps from the infection rule out sepsis Therefore my recommendation for now to stop the vancomycin until we get the vancomycin level. again give vancomycin if need to be with adjusted dose for acute renal failure and serum creatinine level Another problem patient is diabetic and with MDS syndrome Also patient has massive leg edema at least 2+ pitting edema therefore I suggested discontinue all intravenous fluid and we will give small dose of Lasix monitor blood pressure. Finally patient is hyponatremic serum sodium around 130, rule out SIADH however we will monitor the electrolytes we will get spot urine for sodium osmolality and creatinine and to be kept on fluid restriction. Thank you Status: Acute (2) MDS (myelodysplastic syndrome) Status: Acute (3) Pneumonia Status: Acute
[2017-04-19 14:35] LABS: SQUAMOUS EPITHIAL 3 /hpf (0-5); URINE BACTERIA RARE (<OCC); URINE BILIRUBIN NEGATIVE (NEGATIVE); URINE BLOOD NEGATIVE (NEGATIVE); URINE CLARITY SLIGHTY-CLOUDY (Clear); URINE COLOR YELLOW (YELLOW); URINE GLUCOSE (UA) NEG (Normal); URINE LEUKOCYTE ESTERASE TRACE Leu/uL (Negative); URINE NITRATE NEGATIVE (NEGATIVE); URINE PROTEIN NEGATIVE (NEGATIVE); URINE UROBILINOGEN 0.2-1.0 mg/dL (0.2-1.0)
[2017-04-19 15:00] LABS: CREATININE, RANDOM URINE 83.9 mg/dL
--- NOTE | 2017-04-19 16:47 | CP.PCM.PN ---
Subjective - Date & Time of Evaluation Date of Evaluation: 04/19/16 Time of Evaluation: 16:37 - Subjective Subjective: I D NOTE AFEBRILE RECEIVING RESPIRATORY RX WHEN VISITED STATES SHE IS LESS SOB ,NO CHILLS,AND COUGHING LESS. AVELOX WAS BEING GIVEN PO NO IV AVAILABLE,AND I HAVE DC/ED AND STARTED AZITHTHROMYCIN LUNGS :SONE IMPROVEMENT INFLUENZA A & B :NEGATIVE CONTINUE ZOSYN Objective - Vital Signs/Intake and Output Vital Signs (last 24 hours): Temp Pulse Resp BP Pulse Ox 98.2 F 88 20 106/60 100 04/19/17 16:22 04/19/17 16:22 04/19/17 16:22 04/19/17 16:22 04/19/17 16:22 - Medications Medications: Current Medications Acetaminophen (Tylenol 325mg Tab) 650 mg PO Q6 PRN PRN Reason: Fever >100.4 F Albuterol/Ipratropium (Duoneb 3 Mg/0.5 Mg (3 Ml) Ud) 3 ml INH RQ4 [facility] Last Admin: 04/19/17 11:34 Dose: 3 ml Amlodipine Besylate (Norvasc) 5 mg PO DAILY [facility] Last Admin: 04/19/17 09:13 Dose: 5 mg Aspirin (Ecotrin) 81 mg PO DAILY [facility] Last Admin: 04/19/17 09:12 Dose: 81 mg Atorvastatin Calcium (Lipitor) 10 mg PO HS [facility] Last Admin: 04/18/17 22:26 Dose: 10 mg Famotidine (Pepcid) 20 mg PO BID [facility] Last Admin: 04/19/17 16:23 Dose: 20 mg Furosemide (Lasix) 20 mg PO DAILY [facility] Last Admin: 04/19/17 11:55 Dose: 20 mg Piperacillin Sod/Tazobactam (Sod 2.25 gm/ Sodium Chloride) 100 mls @ 100 mls/ hr IVPB Q8 [facility] PRN Reason: Protocol Last Admin: 04/19/17 16:21 Dose: 100 mls/hr Azithromycin 500 mg/ Sodium (Chloride) 250 mls @ 250 mls/hr IVPB DAILY@1630 [facility] PRN Reason: Protocol Insulin Human Lispro (Humalog) 0 units SC AC [facility] PRN Reason: Protocol Last Admin: 04/19/17 12:04 Dose: Not Given Metoprolol Tartrate (Lopressor) 50 mg PO BID [facility] Last Admin: 04/19/17 16:23 Dose: 50 mg Ondansetron HCl (Zofran Inj) 4 mg IVP Q6 PRN PRN Reason: Nausea/Vomiting Potassium Chloride (K-Dur 20 Meq Er Tab) 20 meq PO DAILY [facility] Last Admin: 04/19/17 09:11 Dose: 20 meq Promethazine HCl/Codeine (Phenergan/Codeine Oral Syrup) 5 ml PO Q6 PRN PRN Reason: Cough Rivaroxaban (Xarelto) 15 mg PO QD5 [facility] PRN Reason: Protocol Last Admin: 04/19/17 16:24 Dose: 15 mg Sitagliptin Phosphate (Januvia) 100 mg PO DAILY [facility] Last Admin: 04/19/17 09:11 Dose: 100 mg - Labs Labs: 04/19/17 06:00 04/19/17 06:00
[2017-04-19] MEDS: Azithromycin 500 MG in Sodium Chloride 0.9% 250 ML IVPB SCH (17:30)
[2017-04-20] MEDS: Albuterol-Ipratrop 3 mg / 0.5 (3 ml) UD INH SCH ×6 (05:18→23:07)
--- NOTE | 2017-04-20 07:53 | CP.PCM.PN ---
Subjective - Date & Time of Evaluation Date of Evaluation: 04/20/17 Time of Evaluation: 07:52 - Subjective Subjective: Patient feeling much better and on nausea no vomiting Reported that she is eating Vital signs stable Objective - Vital Signs/Intake and Output Vital Signs (last 24 hours): Temp Pulse Resp BP Pulse Ox 97.3 F L 92 H 18 119/78 97 04/19/17 23:55 04/19/17 23:55 04/19/17 23:55 04/19/17 23:55 04/19/17 23:55 - Medications Medications: Current Medications Acetaminophen (Tylenol 325mg Tab) 650 mg PO Q6 PRN PRN Reason: Fever >100.4 F Albuterol/Ipratropium (Duoneb 3 Mg/0.5 Mg (3 Ml) Ud) 3 ml INH RQ4 [facility] Last Admin: 04/20/17 07:51 Dose: 3 ml Amlodipine Besylate (Norvasc) 5 mg PO DAILY [facility] Last Admin: 04/19/17 09:13 Dose: 5 mg Aspirin (Ecotrin) 81 mg PO DAILY [facility] Last Admin: 04/19/17 09:12 Dose: 81 mg Atorvastatin Calcium (Lipitor) 10 mg PO HS [facility] Last Admin: 04/19/17 21:24 Dose: 10 mg Famotidine (Pepcid) 20 mg PO BID [facility] Last Admin: 04/19/17 16:23 Dose: 20 mg Furosemide (Lasix) 20 mg PO DAILY [facility] Last Admin: 04/19/17 11:55 Dose: 20 mg Piperacillin Sod/Tazobactam (Sod 2.25 gm/ Sodium Chloride) 100 mls @ 100 mls/ hr IVPB Q8 [facility] PRN Reason: Protocol Last Admin: 04/20/17 00:12 Dose: 100 mls/hr Azithromycin 500 mg/ Sodium (Chloride) 250 mls @ 250 mls/hr IVPB DAILY@1630 [facility] PRN Reason: Protocol Last Admin: 04/19/17 17:30 Dose: 250 mls/hr Insulin Human Lispro (Humalog) 0 units SC AC [facility] PRN Reason: Protocol Last Admin: 04/19/17 16:55 Dose: Not Given Metoprolol Tartrate (Lopressor) 50 mg PO BID [facility] Last Admin: 04/19/17 16:23 Dose: 50 mg Ondansetron HCl (Zofran Inj) 4 mg IVP Q6 PRN PRN Reason: Nausea/Vomiting Potassium Chloride (K-Dur 20 Meq Er Tab) 20 meq PO DAILY [facility] Last Admin: 04/19/17 09:11 Dose: 20 meq Promethazine HCl/Codeine (Phenergan/Codeine Oral Syrup) 5 ml PO Q6 PRN PRN Reason: Cough Rivaroxaban (Xarelto) 15 mg PO QD5 [facility] PRN Reason: Protocol Last Admin: 04/19/17 16:24 Dose: 15 mg Sitagliptin Phosphate (Januvia) 100 mg PO DAILY [facility] Last Admin: 04/19/17 09:11 Dose: 100 mg - Labs Labs: 04/19/17 06:00 04/19/17 06:00 - Constitutional Appears: No Acute Distress - ENT Exam ENT Exam: Mucous Membranes Moist - Respiratory Exam Respiratory Exam: NORMAL BREATHING PATTERN. absent: Rales - Cardiovascular Exam Cardiovascular Exam: absent: JVD, Rubs - GI/Abdominal Exam GI & Abdominal Exam: Soft, Normal Bowel Sounds - Extremities Exam Extremities Exam: absent: Calf Tenderness - Back Exam Back Exam: absent: CVA tenderness (L), CVA tenderness (R) - Neurological Exam Neurological Exam: Alert - Psychiatric Exam Psychiatric exam: Normal Affect - Skin Skin Exam: absent: Cyanosis Assessment and Plan (1) Acute kidney injury Assessment & Plan: Most likely acute kidney injury related to multifactorial related to perhaps infection sepsis pneumonia? Serum vancomycin random level 8.0 Urine osmolality and urine sodium noted to be consistent with SIADH Although we have to check TSH and cortisol level before making final diagnosis Hyponatremia improving Suggest to continue fluid restriction somewhat Antibiotics as noted by the ID Continue monitoring kidney function and electrolyte. Status: Acute (2) MDS (myelodysplastic syndrome) Status: Acute (3) Pneumonia Status: Acute
[2017-04-20] MEDS: Potassium Chloride 20 mEq ER Tab PO SCH (08:14)
[2017-04-20] MEDS: Insulin Lispro (humaLOG) 100 Units/ml Inj SC SCH ×4 (08:15→16:06)
--- NOTE | 2017-04-20 09:23 | CP.PCM.PN ---
Subjective - Date & Time of Evaluation Date of Evaluation: 04/20/17 Time of Evaluation: 09:20 - Subjective Subjective: 76 y/o female patient currently on chemotherapy with PMHx of anemia, atrial fibrillation, CAD, COPD, Diabetes, Gastritis, HTN, Hypercholesterolemia, Hypothyroidism, MDS, Pneumonia seen and evaluated at bedside for pneumonia and acute renal failure. Patient states that her coughing has improved a lot since the admission. Patient also reports that the breathing has also been improved. Patient states that her diarrhea has also pretty much resolved. Denies of any acute overnight events. Denies of F/N/V/C/SOB/CP/headache. Denies of any other new complains at this time. Objective - Vital Signs/Intake and Output Vital Signs (last 24 hours): Temp Pulse Resp BP Pulse Ox 96.5 F L 92 H 20 119/78 96 04/20/17 08:05 04/20/17 08:14 04/20/17 08:05 04/20/17 08:16 04/20/17 08:05 - Medications Medications: Current Medications Acetaminophen (Tylenol 325mg Tab) 650 mg PO Q6 PRN PRN Reason: Fever >100.4 F Albuterol/Ipratropium (Duoneb 3 Mg/0.5 Mg (3 Ml) Ud) 3 ml INH RQ4 [facility] Last Admin: 04/20/17 07:51 Dose: 3 ml Amlodipine Besylate (Norvasc) 5 mg PO DAILY [facility] Last Admin: 04/20/17 08:14 Dose: 5 mg Aspirin (Ecotrin) 81 mg PO DAILY [facility] Last Admin: 04/20/17 08:14 Dose: 81 mg Atorvastatin Calcium (Lipitor) 10 mg PO HS [facility] Last Admin: 04/19/17 21:24 Dose: 10 mg Famotidine (Pepcid) 20 mg PO BID [facility] Last Admin: 04/20/17 08:14 Dose: 20 mg Furosemide (Lasix) 20 mg PO DAILY [facility] Last Admin: 04/20/17 08:16 Dose: 20 mg Piperacillin Sod/Tazobactam (Sod 2.25 gm/ Sodium Chloride) 100 mls @ 100 mls/ hr IVPB Q8 [facility] PRN Reason: Protocol Last Admin: 04/20/17 08:13 Dose: 100 mls/hr Azithromycin 500 mg/ Sodium (Chloride) 250 mls @ 250 mls/hr IVPB DAILY@1630 [facility] PRN Reason: Protocol Last Admin: 04/19/17 17:30 Dose: 250 mls/hr Insulin Human Lispro (Humalog) 0 units SC AC [facility] PRN Reason: Protocol Last Admin: 04/20/17 08:18 Dose: Not Given Metoprolol Tartrate (Lopressor) 50 mg PO BID [facility] Last Admin: 04/20/17 08:14 Dose: 50 mg Ondansetron HCl (Zofran Inj) 4 mg IVP Q6 PRN PRN Reason: Nausea/Vomiting Potassium Chloride (K-Dur 20 Meq Er Tab) 20 meq PO DAILY [facility] Last Admin: 04/20/17 08:14 Dose: 20 meq Promethazine HCl/Codeine (Phenergan/Codeine Oral Syrup) 5 ml PO Q6 PRN PRN Reason: Cough Rivaroxaban (Xarelto) 15 mg PO QD5 [facility] PRN Reason: Protocol Last Admin: 04/19/17 16:24 Dose: 15 mg Sitagliptin Phosphate (Januvia) 100 mg PO DAILY [facility] Last Admin: 04/20/17 08:14 Dose: 100 mg - Labs Labs: 04/19/17 06:00 04/19/17 06:00 - Constitutional Appears: Well, Non-toxic, No Acute Distress - Head Exam Head Exam: ATRAUMATIC - Eye Exam Eye Exam: Normal appearance - ENT Exam ENT Exam: Mucous Membranes Moist, Normal Exam - Neck Exam Neck Exam: Full ROM, Normal Inspection - Respiratory Exam Respiratory Exam: Rhonchi (during end inspiration, minimal ronchi heard in the right upper lobe - improved from yesterday), NORMAL BREATHING PATTERN - Cardiovascular Exam Cardiovascular Exam: REGULAR RHYTHM, +S1, +S2 - GI/Abdominal Exam GI & Abdominal Exam: Soft, Normal Bowel Sounds - Rectal Exam Rectal Exam: Deferred - Extremities Exam Extremities Exam: Full ROM, Normal Inspection, Pedal Edema (+1 pitting edema noted on the distal medial leg bilaterally). absent: Calf Tenderness - Back Exam Back Exam: Full ROM, NORMAL INSPECTION. absent: vertebral tenderness - Neurological Exam Neurological Exam: Alert, Awake, Oriented x3 - Psychiatric Exam Psychiatric exam: Normal Affect, Normal Mood - Skin Skin Exam: Intact, Normal Color, Warm Assessment and Plan - Assessment and Plan (Free Text) Assessment: 76 y/o female patient with PMHx of MDS, Anemia, chronic Atrial Fibrillation, CAD , COPD, Diabetes, Gastritis, HTN, Hypercholesterolemia, Hypothyroidism and Pneumonia seen and evaluated for acute community acquired pneumonia and acute renal failure Plan: 1). Community acquired pneumonia secondary to immunodeficiency - Pneumonia severity index: 5 - CXR: Negative; no acute findings. Positive on clinical exam - CT Scan w/o contrast ordered to specify location: - Multifocal infiltrates likely infectious/inflammatory. Trace of bilateral plural effusions. Underlying COPD manifestations - Sputum culture: -Pending - ID consult - recommendations appreciated - D/C Avelox and started Azithromycin, continue Zosyn - Pulmonology consult - Promethazine/Codine 5 ml q6 - control cough - Duoneb q4 - changed from q8 - Vancomycin 1 gm IV q12 - D/C - Zosyn 2.25 IV q6 2). Acute Renal Failure - Nephrology consult - recommendations appreciated - Most likely acute kidney injury related to multifactorial - D/C vancomycin - Limit fluids - r/o SIADH - Hyponatremia improving - Continue monitoring kidney function and electrolyte - Renal ultrasound - unremarkable renal US examination 3). MDS - Heme/onc consult - recommendations appreciated - Anemia secondary to MDS - cont outpatient azacytadine with Dr. Nunes 4). HTN - Amlodipine 5mg qd - Furosemide 20 mg qd - HCTZ 25 mg qd - Held - Losartan/HCTZ qd - Held 5). Hypercholesterolemia - Atorvastatin 10 mg 6). Chronic Atrial Fibrillation - Metoprolol 50 mg BID - Rivaroxaban 15 mg 7). Diabetes - Sliding scale - Sitagliptin 100 mg qd - Actose and glyburide held - please restart on discharge - Diabetic diet 8). Gastritis - Femotidine 20 mg BID 9). DVT prophylaxis - Ambulating - SCD - Patient is already on rivaroxaban
--- NOTE | 2017-04-20 10:40 | CARD ---
APPROVED REPORT EKG Measurement Heart [id number] <Conclusion> Atrial fibrillation with premature ventricular or aberrantly conducted complexes Low voltage QRS Inferior infarct, age undetermined Cannot rule out Anterior infarct, age undetermined Abnormal ECG
--- NOTE | 2017-04-20 11:22 | PQF GENQUE ---
This form is a permanent part of the medical record 04/20/17 Dr. Andrade, Please clarify the type of atrial fibrillation if known. Documentation of a history of Atrial Fibrillation. EKG: Atrial fibrillation ( additional findings). Medication includes: Metoprolol and Xarelto. Clarification of your documentation is requested to better reflect the severity of illness and intensity of treatment of your patient. Indicators present [] Specify: [] [] Specify: [] [] Specify: [] [] Specify: [] Location in the medical record that reflects the above clinical findings: [] Treatment Provided: [] PHYSICIAN'S RESPONSE Patient has Chronic Afib , rate controlled Based on your medical judgment of the clinical indicators outlined above please clarify the following: [] Practitioner response [] If unable to determine, please check the box, sign and date. Present On Admission (POA) Indicator: [] Present at the time of admission [] Not present at the time of admission [] Clinically Undetermined In responding to this query, please exercise your independent professional judgment. The fact that a question is asked does not imply that any particular answer is desired or expected. Thank you for your clarification on this documentation. If you have any questions please call:[phone] * Thank you, Ludivina Bower RN CD[facility]
--- NOTE | 2017-04-20 12:28 | US ---
PROCEDURE: Ultrasound of the Kidneys HISTORY: r/o CKD COMPARISON: None available. TECHNIQUE: Sonogram of the kidneys. FINDINGS: RIGHT KIDNEY: Measures: 9.2 cm. Normal in size, contour and echogenicity. No stone, solid mass lesion or hydronephrosis visualized. LEFT KIDNEY: Measures: 10.3 cm. Normal in size, contour and echogenicity. No stone, solid mass lesion or hydronephrosis visualized. OTHER FINDINGS: Incidentally noted trace fluid in right subhepatic space (Ennis's pouch). Incidentally noted splenomegaly. The spleen measures 15.2 cm in greatest dimension. There is no focal mass seen. IMPRESSION: Unremarkable renal ultrasound examination. Incidentally noted splenomegaly.
[2017-04-20 13:26] LABS: CALCIUM 8.3 mg/dL (8.4-10.2)
[2017-04-20] MEDS: Azithromycin 500 MG in Sodium Chloride 0.9% 250 ML IVPB SCH (16:08)
[2017-04-21] MEDS: Albuterol-Ipratrop 3 mg / 0.5 (3 ml) UD INH SCH ×5 (04:51→19:36)
[2017-04-21 05:43] LABS: HEMOGLOBIN 8.7 g/dL (12.0-16.0); MEAN CELL VOLUME 83.1 fl (81.0-99.0); MEAN CORPUSCULAR HEMOGLOBIN 25.9 pg (27.0-31.0); MEAN CORPUSCULAR HGB CONC 31.1 g/dL (33.0-37.0); RBC 3.37 Mil/uL (3.80-5.20); RED CELL DISTRIBUTION WIDTH 18.5 % (11.5-14.5); WHITE BLOOD COUNT 5.2 K/uL (4.8-10.8)
[2017-04-21 06:07] LABS: CALCIUM 8.6 mg/dL (8.4-10.2)
--- NOTE | 2017-04-21 09:04 | CP.PCM.PN ---
Subjective - Date & Time of Evaluation Date of Evaluation: 04/21/17 Time of Evaluation: 08:50 - Subjective Subjective: Covering Dr. Nunes Feeling better Objective - Vital Signs/Intake and Output Vital Signs (last 24 hours): Temp Pulse Resp BP Pulse Ox 97.3 F L 102 H 20 122/77 96 04/21/17 08:54 04/21/17 08:54 04/21/17 08:54 04/21/17 08:54 04/21/17 08:54 - Medications Medications: Current Medications Acetaminophen (Tylenol 325mg Tab) 650 mg PO Q6 PRN PRN Reason: Fever >100.4 F Albuterol/Ipratropium (Duoneb 3 Mg/0.5 Mg (3 Ml) Ud) 3 ml INH RQ4 [facility] Last Admin: 04/21/17 07:20 Dose: 3 ml Amlodipine Besylate (Norvasc) 5 mg PO DAILY [facility] Last Admin: 04/20/17 08:14 Dose: 5 mg Aspirin (Ecotrin) 81 mg PO DAILY [facility] Last Admin: 04/20/17 08:14 Dose: 81 mg Atorvastatin Calcium (Lipitor) 10 mg PO HS [facility] Last Admin: 04/20/17 21:21 Dose: 10 mg Famotidine (Pepcid) 20 mg PO BID [facility] Last Admin: 04/20/17 16:06 Dose: 20 mg Furosemide (Lasix) 20 mg PO DAILY [facility] Last Admin: 04/20/17 08:16 Dose: 20 mg Piperacillin Sod/Tazobactam (Sod 2.25 gm/ Sodium Chloride) 100 mls @ 100 mls/ hr IVPB Q8 [facility] PRN Reason: Protocol Last Admin: 04/21/17 00:44 Dose: 100 mls/hr Azithromycin 500 mg/ Sodium (Chloride) 250 mls @ 250 mls/hr IVPB DAILY@1630 [facility] PRN Reason: Protocol Last Admin: 04/20/17 16:08 Dose: 250 mls/hr Insulin Human Lispro (Humalog) 0 units SC AC [facility] PRN Reason: Protocol Last Admin: 04/20/17 16:06 Dose: Not Given Metoprolol Tartrate (Lopressor) 50 mg PO BID [facility] Last Admin: 04/20/17 16:06 Dose: 50 mg Ondansetron HCl (Zofran Inj) 4 mg IVP Q6 PRN PRN Reason: Nausea/Vomiting Potassium Chloride (K-Dur 20 Meq Er Tab) 20 meq PO DAILY [facility] Last Admin: 04/20/17 08:14 Dose: 20 meq Promethazine HCl/Codeine (Phenergan/Codeine Oral Syrup) 5 ml PO Q6 PRN PRN Reason: Cough Last Admin: 04/20/17 17:21 Dose: 5 ml Rivaroxaban (Xarelto) 15 mg PO QD5 [facility] PRN Reason: Protocol Last Admin: 04/20/17 16:06 Dose: 15 mg Sitagliptin Phosphate (Januvia) 100 mg PO DAILY [facility] Last Admin: 04/20/17 08:14 Dose: 100 mg - Labs Labs: 04/21/17 05:05 04/21/17 05:05 - Head Exam Head Exam: ATRAUMATIC - Eye Exam Eye Exam: Normal appearance - ENT Exam ENT Exam: Mucous Membranes Dry - Respiratory Exam Respiratory Exam: NORMAL BREATHING PATTERN - Cardiovascular Exam Cardiovascular Exam: +S1, +S2 - GI/Abdominal Exam GI & Abdominal Exam: Normal Bowel Sounds Assessment and Plan (1) Anemia Assessment & Plan: secondary to MDS element of CKD Status: Acute (2) MDS (myelodysplastic syndrome) Assessment & Plan: outpatient treatment with Dr. Nunes Status: Acute
--- NOTE | 2017-04-21 09:25 | CP.PCM.PN ---
<RussellDaniellemoarleen - Last Filed: 04/21/17 15:39> Subjective - Date & Time of Evaluation Date of Evaluation: 04/21/17 Time of Evaluation: 09:20 - Subjective Subjective: 76 y/o female patient currently on chemotherapy with PMHx of anemia, atrial fibrillation, CAD, COPD, Diabetes, Gastritis, HTN, Hypercholesterolemia, Hypothyroidism, MDS, Pneumonia seen and evaluated at bedside for pneumonia and acute renal failure. Patient denies of any acute overnight events. Patient reports that her coughing has almost resolved and breathing has gotten a lot better. Denies of any new onset of diarrhea. Patient is very anxious to go home. Denies of any recent F/N/V/C/SOB/CP/headache. Denies of any new complains at this time. Objective - Vital Signs/Intake and Output Vital Signs (last 24 hours): Temp Pulse Resp BP Pulse Ox 97.3 F L 102 H 20 122/77 96 04/21/17 08:54 04/21/17 08:54 04/21/17 08:54 04/21/17 08:54 04/21/17 08:54 - Medications Medications: Current Medications Acetaminophen (Tylenol 325mg Tab) 650 mg PO Q6 PRN PRN Reason: Fever >100.4 F Albuterol/Ipratropium (Duoneb 3 Mg/0.5 Mg (3 Ml) Ud) 3 ml INH RQ4 [facility] Last Admin: 04/21/17 07:20 Dose: 3 ml Amlodipine Besylate (Norvasc) 5 mg PO DAILY [facility] Last Admin: 04/20/17 08:14 Dose: 5 mg Aspirin (Ecotrin) 81 mg PO DAILY [facility] Last Admin: 04/20/17 08:14 Dose: 81 mg Atorvastatin Calcium (Lipitor) 10 mg PO HS [facility] Last Admin: 04/20/17 21:21 Dose: 10 mg Famotidine (Pepcid) 20 mg PO BID [facility] Last Admin: 04/20/17 16:06 Dose: 20 mg Furosemide (Lasix) 20 mg PO DAILY [facility] Last Admin: 04/20/17 08:16 Dose: 20 mg Piperacillin Sod/Tazobactam (Sod 2.25 gm/ Sodium Chloride) 100 mls @ 100 mls/ hr IVPB Q8 [facility] PRN Reason: Protocol Last Admin: 04/21/17 00:44 Dose: 100 mls/hr Azithromycin 500 mg/ Sodium (Chloride) 250 mls @ 250 mls/hr IVPB DAILY@1630 [facility] PRN Reason: Protocol Last Admin: 04/20/17 16:08 Dose: 250 mls/hr Insulin Human Lispro (Humalog) 0 units SC AC [facility] PRN Reason: Protocol Last Admin: 04/20/17 16:06 Dose: Not Given Metoprolol Tartrate (Lopressor) 50 mg PO BID [facility] Last Admin: 04/20/17 16:06 Dose: 50 mg Ondansetron HCl (Zofran Inj) 4 mg IVP Q6 PRN PRN Reason: Nausea/Vomiting Potassium Chloride (K-Dur 20 Meq Er Tab) 20 meq PO DAILY [facility] Last Admin: 04/20/17 08:14 Dose: 20 meq Promethazine HCl/Codeine (Phenergan/Codeine Oral Syrup) 5 ml PO Q6 PRN PRN Reason: Cough Last Admin: 04/20/17 17:21 Dose: 5 ml Rivaroxaban (Xarelto) 15 mg PO QD5 [facility] PRN Reason: Protocol Last Admin: 04/20/17 16:06 Dose: 15 mg Sitagliptin Phosphate (Januvia) 100 mg PO DAILY [facility] Last Admin: 04/20/17 08:14 Dose: 100 mg - Labs Labs: 04/21/17 05:05 04/21/17 05:05 - Constitutional Appears: Well, Non-toxic, No Acute Distress - Head Exam Head Exam: ATRAUMATIC - Eye Exam Eye Exam: Normal appearance - ENT Exam ENT Exam: Mucous Membranes Moist, Normal Exam - Neck Exam Neck Exam: Full ROM, Normal Inspection - Respiratory Exam Respiratory Exam: Rales (Occasional rales noted during expiration ), NORMAL BREATHING PATTERN - Cardiovascular Exam Cardiovascular Exam: REGULAR RHYTHM, +S1, +S2 - GI/Abdominal Exam GI & Abdominal Exam: Soft, Normal Bowel Sounds - Rectal Exam Rectal Exam: Deferred - Extremities Exam Extremities Exam: Full ROM, Normal Capillary Refill, Normal Inspection, Pedal Edema (+2 pitting edema noted on bilateral distal leg). absent: Calf Tenderness , Joint Swelling, Tenderness - Back Exam Back Exam: Full ROM, NORMAL INSPECTION. absent: tenderness - Neurological Exam Neurological Exam: Alert, Awake, Oriented x3 - Psychiatric Exam Psychiatric exam: Normal Affect, Normal Mood - Skin Skin Exam: Intact, Normal Color, Warm Assessment and Plan - Assessment and Plan (Free Text) Assessment: 76 y/o female patient with PMHx of MDS, Anemia, chronic Atrial Fibrillation, CAD , COPD, Diabetes, Gastritis, HTN, Hypercholesterolemia, Hypothyroidism and Pneumonia seen and evaluated for acute community acquired pneumonia and acute renal failure Plan: 1). Community acquired pneumonia due to immunodeficiency secondary to chemotherapy for MDS - Pneumonia severity index: 5 - CXR: Negative; no acute findings. Positive on clinical exam - CT Scan w/o contrast ordered to specify location: - Multifocal infiltrates likely infectious/inflammatory. Trace of bilateral plural effusions. Underlying COPD manifestations - Afebrile, WBC @ 5.2 today - Sputum culture: -Normal oral monserrat (Final) - ID consult - recommendations appreciated - D/C Avelox and started Azithromycin, continue Zosyn - Pulmonology consult - Promethazine/Codine 5 ml q6 - control cough - Duoneb q4 - changed from q8 - Vancomycin 1 gm IV q12 - D/C - Zosyn 2.25 IV q6 2). Acute Renal Failure - Nephrology consult - recommendations appreciated - Most likely acute kidney injury related to multifactorial - D/C vancomycin - Limit fluids - r/o SIADH - Follow up cortisol levels, TSH - Hyponatremia improving - Continue monitoring kidney function and electrolyte - Renal ultrasound - unremarkable renal US examination 3). MDS - Heme/onc consult - recommendations appreciated - Anemia secondary to MDS - cont outpatient azacytadine with Dr. Nunes - Last chemotherapy in March 4). Anemia - secondary to MDS - stable 5). HTN - Amlodipine 5mg qd - Furosemide 20 mg qd - HCTZ 25 mg qd - Held - Losartan/HCTZ qd - Held 6). Hypercholesterolemia - Atorvastatin 10 mg 7). Chronic Atrial Fibrillation - Metoprolol 50 mg BID - Rivaroxaban 15 mg 8). Diabetes - Sliding scale - Sitagliptin 100 mg qd - Actose and glyburide held - please restart on discharge - Diabetic diet 9). Gastritis - Femotidine 20 mg BID 10). DVT prophylaxis - Ambulating - SCD - Patient is already on rivaroxaban <Malu Berrios - Last Filed: 04/21/17 17:19> Objective - Vital Signs/Intake and Output Vital Signs (last 24 hours): Temp Pulse Resp BP Pulse Ox 98 F 100 H 20 121/71 96 04/21/17 17:01 04/21/17 17:15 04/21/17 17:01 04/21/17 17:15 04/21/17 17:01 - Medications Medications: Current Medications Acetaminophen (Tylenol 325mg Tab) 650 mg PO Q6 PRN PRN Reason: Fever >100.4 F Albuterol/Ipratropium (Duoneb 3 Mg/0.5 Mg (3 Ml) Ud) 3 ml INH RQID [facility] Last Admin: 04/21/17 15:40 Dose: 3 ml Amlodipine Besylate (Norvasc) 5 mg PO DAILY [facility] Last Admin: 04/21/17 09:28 Dose: 5 mg Aspirin (Ecotrin) 81 mg PO DAILY [facility] Last Admin: 04/21/17 09:25 Dose: 81 mg Atorvastatin Calcium (Lipitor) 10 mg PO HS [facility] Last Admin: 04/20/17 21:21 Dose: 10 mg Famotidine (Pepcid) 20 mg PO BID [facility] Last Admin: 04/21/17 17:16 Dose: 20 mg Furosemide (Lasix) 20 mg PO DAILY [facility] Last Admin: 04/21/17 09:27 Dose: 20 mg Piperacillin Sod/Tazobactam (Sod 2.25 gm/ Sodium Chloride) 100 mls @ 100 mls/ hr IVPB Q8 [facility] PRN Reason: Protocol Last Admin: 04/21/17 09:56 Dose: 100 mls/hr Azithromycin 500 mg/ Sodium (Chloride) 250 mls @ 250 mls/hr IVPB DAILY@1630 [facility] PRN Reason: Protocol Last Admin: 04/21/17 17:16 Dose: 250 mls/hr Insulin Human Lispro (Humalog) 0 units SC AC [facility] PRN Reason: Protocol Last Admin: 04/21/17 17:14 Dose: 2 units Metoprolol Tartrate (Lopressor) 50 mg PO BID [facility] Last Admin: 04/21/17 17:15 Dose: 50 mg Ondansetron HCl (Zofran Inj) 4 mg IVP Q6 PRN PRN Reason: Nausea/Vomiting Potassium Chloride (K-Dur 20 Meq Er Tab) 20 meq PO DAILY [facility] Last Admin: 04/21/17 09:27 Dose: 20 meq Promethazine HCl/Codeine (Phenergan/Codeine Oral Syrup) 5 ml PO Q6 PRN PRN Reason: Cough Last Admin: 04/20/17 17:21 Dose: 5 ml Rivaroxaban (Xarelto) 15 mg PO QD5 [facility] PRN Reason: Protocol Last Admin: 04/21/17 17:16 Dose: 15 mg Sitagliptin Phosphate (Januvia) 100 mg PO DAILY [facility] Last Admin: 04/21/17 09:26 Dose: 100 mg - Labs Labs: 04/21/17 05:05 04/21/17 05:05 Attending/Attestation - Attestation I have personally seen and examined this patient.: Yes I have fully participated in the care of the patient.: Yes I have reviewed all pertinent clinical information, including history, physical exam and plan: Yes
[2017-04-21] MEDS: Insulin Lispro (humaLOG) 100 Units/ml Inj SC SCH ×3 (09:26→17:14)
[2017-04-21] MEDS: Potassium Chloride 20 mEq ER Tab PO SCH (09:27)
--- NOTE | 2017-04-21 13:00 | CP.PCM.PN ---
Subjective - Date & Time of Evaluation Date of Evaluation: 04/21/17 Time of Evaluation: 12:57 - Subjective Subjective: Patient awake and conscious Feeling much better No chest pain no shortness of breath Appetite okay Objective - Vital Signs/Intake and Output Vital Signs (last 24 hours): Temp Pulse Resp BP Pulse Ox 97.3 F L 102 H 20 122/77 96 04/21/17 08:54 04/21/17 09:28 04/21/17 08:54 04/21/17 09:28 04/21/17 08:54 - Medications Medications: Current Medications Acetaminophen (Tylenol 325mg Tab) 650 mg PO Q6 PRN PRN Reason: Fever >100.4 F Albuterol/Ipratropium (Duoneb 3 Mg/0.5 Mg (3 Ml) Ud) 3 ml INH RQ4 [facility] Last Admin: 04/21/17 11:05 Dose: 3 ml Amlodipine Besylate (Norvasc) 5 mg PO DAILY [facility] Last Admin: 04/21/17 09:28 Dose: 5 mg Aspirin (Ecotrin) 81 mg PO DAILY [facility] Last Admin: 04/21/17 09:25 Dose: 81 mg Atorvastatin Calcium (Lipitor) 10 mg PO HS [facility] Last Admin: 04/20/17 21:21 Dose: 10 mg Famotidine (Pepcid) 20 mg PO BID [facility] Last Admin: 04/21/17 09:29 Dose: 20 mg Furosemide (Lasix) 20 mg PO DAILY [facility] Last Admin: 04/21/17 09:27 Dose: 20 mg Piperacillin Sod/Tazobactam (Sod 2.25 gm/ Sodium Chloride) 100 mls @ 100 mls/ hr IVPB Q8 [facility] PRN Reason: Protocol Last Admin: 04/21/17 09:56 Dose: 100 mls/hr Azithromycin 500 mg/ Sodium (Chloride) 250 mls @ 250 mls/hr IVPB DAILY@1630 [facility] PRN Reason: Protocol Last Admin: 04/20/17 16:08 Dose: 250 mls/hr Insulin Human Lispro (Humalog) 0 units SC AC [facility] PRN Reason: Protocol Last Admin: 04/21/17 09:26 Dose: 2 units Metoprolol Tartrate (Lopressor) 50 mg PO BID [facility] Last Admin: 04/21/17 09:28 Dose: 50 mg Ondansetron HCl (Zofran Inj) 4 mg IVP Q6 PRN PRN Reason: Nausea/Vomiting Potassium Chloride (K-Dur 20 Meq Er Tab) 20 meq PO DAILY [facility] Last Admin: 04/21/17 09:27 Dose: 20 meq Promethazine HCl/Codeine (Phenergan/Codeine Oral Syrup) 5 ml PO Q6 PRN PRN Reason: Cough Last Admin: 04/20/17 17:21 Dose: 5 ml Rivaroxaban (Xarelto) 15 mg PO QD5 [facility] PRN Reason: Protocol Last Admin: 04/20/17 16:06 Dose: 15 mg Sitagliptin Phosphate (Januvia) 100 mg PO DAILY [facility] Last Admin: 04/21/17 09:26 Dose: 100 mg - Labs Labs: 04/21/17 05:05 04/21/17 05:05 - Constitutional Appears: No Acute Distress - ENT Exam ENT Exam: Mucous Membranes Moist - Respiratory Exam Respiratory Exam: NORMAL BREATHING PATTERN. absent: Chest Wall Tenderness - GI/Abdominal Exam GI & Abdominal Exam: Soft, Normal Bowel Sounds - Extremities Exam Extremities Exam: absent: Calf Tenderness - Back Exam Back Exam: absent: CVA tenderness (L), CVA tenderness (R) - Neurological Exam Neurological Exam: Alert - Psychiatric Exam Psychiatric exam: Normal Affect - Skin Skin Exam: absent: Cyanosis Assessment and Plan (1) Acute kidney injury Assessment & Plan: Acute kidney injury is slightly improving serum creatinine coming down slowly Continue to monitor Serum sodium also in the range of 133 A serum sodium continued to drop to less than 130 or less we will give Samsca. Continue monitoring The rest of the problem as noted with malignancy history and history of chemotherapy myeloproliferative disorder Pneumonia patient receiving antibiotics Status: Acute (2) MDS (myelodysplastic syndrome) Status: Acute (3) Pneumonia Status: Acute
--- NOTE | 2017-04-21 14:49 | CP.PCM.PN ---
Subjective - Date & Time of Evaluation Date of Evaluation: 04/21/17 Time of Evaluation: 14:44 - Subjective Subjective: Continues to improve clinically. Remains afebrile. Sputum culture reported normal monserrat. WBC down to 5.2 and hgb 8.7 with platelets 161. Nephrology note appreciated. Still has ++ dependant edema of both ankles. No fever or chills. Breath sounds are present bilaterally. Few scattered dry rales in LL's w/o wheezes or bronchial breath sounds. Atypical pneumonia-improving on current regimen. Renal function improving. Procalcitonin was elevated on admission. Continue present medical regimen. Objective - Vital Signs/Intake and Output Vital Signs (last 24 hours): Temp Pulse Resp BP Pulse Ox 97.3 F L 102 H 20 122/77 96 04/21/17 08:54 04/21/17 09:28 04/21/17 08:54 04/21/17 09:28 04/21/17 08:54 - Medications Medications: Current Medications Acetaminophen (Tylenol 325mg Tab) 650 mg PO Q6 PRN PRN Reason: Fever >100.4 F Albuterol/Ipratropium (Duoneb 3 Mg/0.5 Mg (3 Ml) Ud) 3 ml INH RQ4 [facility] Last Admin: 04/21/17 11:05 Dose: 3 ml Amlodipine Besylate (Norvasc) 5 mg PO DAILY [facility] Last Admin: 04/21/17 09:28 Dose: 5 mg Aspirin (Ecotrin) 81 mg PO DAILY [facility] Last Admin: 04/21/17 09:25 Dose: 81 mg Atorvastatin Calcium (Lipitor) 10 mg PO HS [facility] Last Admin: 04/20/17 21:21 Dose: 10 mg Famotidine (Pepcid) 20 mg PO BID [facility] Last Admin: 04/21/17 09:29 Dose: 20 mg Furosemide (Lasix) 20 mg PO DAILY [facility] Last Admin: 04/21/17 09:27 Dose: 20 mg Piperacillin Sod/Tazobactam (Sod 2.25 gm/ Sodium Chloride) 100 mls @ 100 mls/ hr IVPB Q8 [facility] PRN Reason: Protocol Last Admin: 04/21/17 09:56 Dose: 100 mls/hr Azithromycin 500 mg/ Sodium (Chloride) 250 mls @ 250 mls/hr IVPB DAILY@1630 [facility] PRN Reason: Protocol Last Admin: 04/20/17 16:08 Dose: 250 mls/hr Insulin Human Lispro (Humalog) 0 units SC AC [facility] PRN Reason: Protocol Last Admin: 04/21/17 09:26 Dose: 2 units Metoprolol Tartrate (Lopressor) 50 mg PO BID [facility] Last Admin: 04/21/17 09:28 Dose: 50 mg Ondansetron HCl (Zofran Inj) 4 mg IVP Q6 PRN PRN Reason: Nausea/Vomiting Potassium Chloride (K-Dur 20 Meq Er Tab) 20 meq PO DAILY [facility] Last Admin: 04/21/17 09:27 Dose: 20 meq Promethazine HCl/Codeine (Phenergan/Codeine Oral Syrup) 5 ml PO Q6 PRN PRN Reason: Cough Last Admin: 04/20/17 17:21 Dose: 5 ml Rivaroxaban (Xarelto) 15 mg PO QD5 [facility] PRN Reason: Protocol Last Admin: 04/20/17 16:06 Dose: 15 mg Sitagliptin Phosphate (Januvia) 100 mg PO DAILY [facility] Last Admin: 04/21/17 09:26 Dose: 100 mg - Labs Labs: 04/21/17 05:05 04/21/17 05:05 Assessment and Plan (1) Bronchopneumonia Status: Acute (2) Atrial fibrillation Status: Acute (3) 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
--- NOTE | 2017-04-21 15:56 | CP.PCM.PN ---
Subjective - Date & Time of Evaluation Date of Evaluation: 04/21/16 Time of Evaluation: 15:55 - Subjective Subjective: I D NOTE IMPROVING NOW HAS MILD NON PRODUCTIVE COUGH. AFEBRILE RENAL FUNCTION IMPROVING CONTINUE IV ANTIBIOTICS OVER WEEKEND Objective - Vital Signs/Intake and Output Vital Signs (last 24 hours): Temp Pulse Resp BP Pulse Ox 97.3 F L 102 H 20 122/77 96 04/21/17 08:54 04/21/17 09:28 04/21/17 08:54 04/21/17 09:28 04/21/17 08:54 - Medications Medications: Current Medications Acetaminophen (Tylenol 325mg Tab) 650 mg PO Q6 PRN PRN Reason: Fever >100.4 F Albuterol/Ipratropium (Duoneb 3 Mg/0.5 Mg (3 Ml) Ud) 3 ml INH RQID [facility] Last Admin: 04/21/17 15:40 Dose: 3 ml Amlodipine Besylate (Norvasc) 5 mg PO DAILY [facility] Last Admin: 04/21/17 09:28 Dose: 5 mg Aspirin (Ecotrin) 81 mg PO DAILY [facility] Last Admin: 04/21/17 09:25 Dose: 81 mg Atorvastatin Calcium (Lipitor) 10 mg PO HS [facility] Last Admin: 04/20/17 21:21 Dose: 10 mg Famotidine (Pepcid) 20 mg PO BID [facility] Last Admin: 04/21/17 09:29 Dose: 20 mg Furosemide (Lasix) 20 mg PO DAILY [facility] Last Admin: 04/21/17 09:27 Dose: 20 mg Piperacillin Sod/Tazobactam (Sod 2.25 gm/ Sodium Chloride) 100 mls @ 100 mls/ hr IVPB Q8 [facility] PRN Reason: Protocol Last Admin: 04/21/17 09:56 Dose: 100 mls/hr Azithromycin 500 mg/ Sodium (Chloride) 250 mls @ 250 mls/hr IVPB DAILY@1630 [facility] PRN Reason: Protocol Last Admin: 04/20/17 16:08 Dose: 250 mls/hr Insulin Human Lispro (Humalog) 0 units SC AC [facility] PRN Reason: Protocol Last Admin: 04/21/17 09:26 Dose: 2 units Metoprolol Tartrate (Lopressor) 50 mg PO BID [facility] Last Admin: 04/21/17 09:28 Dose: 50 mg Ondansetron HCl (Zofran Inj) 4 mg IVP Q6 PRN PRN Reason: Nausea/Vomiting Potassium Chloride (K-Dur 20 Meq Er Tab) 20 meq PO DAILY [facility] Last Admin: 04/21/17 09:27 Dose: 20 meq Promethazine HCl/Codeine (Phenergan/Codeine Oral Syrup) 5 ml PO Q6 PRN PRN Reason: Cough Last Admin: 04/20/17 17:21 Dose: 5 ml Rivaroxaban (Xarelto) 15 mg PO QD5 [facility] PRN Reason: Protocol Last Admin: 04/20/17 16:06 Dose: 15 mg Sitagliptin Phosphate (Januvia) 100 mg PO DAILY [facility] Last Admin: 04/21/17 09:26 Dose: 100 mg - Labs Labs: 04/21/17 05:05 04/21/17 05:05
[2017-04-21] MEDS: Azithromycin 500 MG in Sodium Chloride 0.9% 250 ML IVPB SCH (17:16)
[2017-04-22 07:48] LABS: HEMOGLOBIN 9.4 g/dL (12.0-16.0); MEAN CELL VOLUME 81.7 fl (81.0-99.0); MEAN CORPUSCULAR HEMOGLOBIN 26.6 pg (27.0-31.0); MEAN CORPUSCULAR HGB CONC 32.5 g/dL (33.0-37.0); RBC 3.54 Mil/uL (3.80-5.20); RED CELL DISTRIBUTION WIDTH 18.6 % (11.5-14.5); WHITE BLOOD COUNT 5.2 K/uL (4.8-10.8)
[2017-04-22 08:01] LABS: CALCIUM 8.7 mg/dL (8.4-10.2)
[2017-04-22] MEDS: Albuterol-Ipratrop 3 mg / 0.5 (3 ml) UD INH SCH ×4 (08:20→19:23)
[2017-04-22] MEDS: Insulin Lispro (humaLOG) 100 Units/ml Inj SC SCH ×3 (08:39→16:50)
[2017-04-22] MEDS: Potassium Chloride 20 mEq ER Tab PO SCH (08:39)
--- NOTE | 2017-04-22 13:55 | CP.PCM.PN ---
Subjective - Date & Time of Evaluation Date of Evaluation: 04/22/17 Time of Evaluation: 12:00 - Subjective Subjective: No fever cough better denies CP no SOB no abd pain no signs of bleeding Objective - Vital Signs/Intake and Output Vital Signs (last 24 hours): Temp Pulse Resp BP Pulse Ox 97.6 F 113 H 20 124/84 95 04/22/17 08:16 04/22/17 08:40 04/22/17 08:16 04/22/17 08:41 04/22/17 08:16 - Medications Medications: Current Medications Acetaminophen (Tylenol 325mg Tab) 650 mg PO Q6 PRN PRN Reason: Fever >100.4 F Albuterol/Ipratropium (Duoneb 3 Mg/0.5 Mg (3 Ml) Ud) 3 ml INH RQID [facility] Last Admin: 04/22/17 11:20 Dose: 3 ml Amlodipine Besylate (Norvasc) 5 mg PO DAILY [facility] Last Admin: 04/22/17 08:38 Dose: 5 mg Aspirin (Ecotrin) 81 mg PO DAILY [facility] Last Admin: 04/22/17 08:40 Dose: 81 mg Atorvastatin Calcium (Lipitor) 10 mg PO HS [facility] Last Admin: 04/21/17 22:10 Dose: 10 mg Famotidine (Pepcid) 20 mg PO BID [facility] Last Admin: 04/22/17 08:41 Dose: 20 mg Furosemide (Lasix) 20 mg PO DAILY [facility] Last Admin: 04/22/17 08:41 Dose: 20 mg Piperacillin Sod/Tazobactam (Sod 2.25 gm/ Sodium Chloride) 100 mls @ 100 mls/ hr IVPB Q8 [facility] PRN Reason: Protocol Last Admin: 04/22/17 08:42 Dose: 100 mls/hr Azithromycin 500 mg/ Sodium (Chloride) 250 mls @ 250 mls/hr IVPB DAILY@1630 [facility] PRN Reason: Protocol Last Admin: 04/21/17 17:16 Dose: 250 mls/hr Insulin Human Lispro (Humalog) 0 units SC AC [facility] PRN Reason: Protocol Last Admin: 04/22/17 12:40 Dose: 3 units Metoprolol Tartrate (Lopressor) 50 mg PO BID [facility] Last Admin: 04/22/17 08:40 Dose: 50 mg Ondansetron HCl (Zofran Inj) 4 mg IVP Q6 PRN PRN Reason: Nausea/Vomiting Potassium Chloride (K-Dur 20 Meq Er Tab) 20 meq PO DAILY [facility] Last Admin: 04/22/17 08:39 Dose: 20 meq Promethazine HCl/Codeine (Phenergan/Codeine Oral Syrup) 5 ml PO Q6 PRN PRN Reason: Cough Last Admin: 04/20/17 17:21 Dose: 5 ml Rivaroxaban (Xarelto) 15 mg PO QD5 [facility] PRN Reason: Protocol Last Admin: 04/21/17 17:16 Dose: 15 mg Sitagliptin Phosphate (Januvia) 100 mg PO DAILY [facility] Last Admin: 04/22/17 08:41 Dose: 100 mg - Labs Labs: 04/22/17 05:30 04/22/17 05:30 - Constitutional Appears: Non-toxic, No Acute Distress - Head Exam Head Exam: NORMAL INSPECTION, NORMOCEPHALIC - Eye Exam Eye Exam: Normal appearance, PERRL Pupil Exam: NORMAL ACCOMODATION - ENT Exam ENT Exam: Mucous Membranes Moist, Normal External Ear Exam - Neck Exam Neck Exam: Full ROM. absent: Meningismus - Respiratory Exam Respiratory Exam: Rales, Rhonchi, NORMAL BREATHING PATTERN. absent: Respiratory Distress - Cardiovascular Exam Cardiovascular Exam: Irregular Rhythm, +S1, +S2 - GI/Abdominal Exam GI & Abdominal Exam: Soft, Normal Bowel Sounds. absent: Tenderness - Extremities Exam Extremities Exam: Full ROM, Normal Capillary Refill. absent: Calf Tenderness - Back Exam Back Exam: Full ROM. absent: CVA tenderness (L), CVA tenderness (R) - Neurological Exam Neurological Exam: Alert, Awake, CN II-XII Intact Neuro motor strength exam: Left Upper Extremity: 5, Right Upper Extremity: 5, Left Lower Extremity: 5, Right Lower Extremity: 5 - Psychiatric Exam Psychiatric exam: Normal Affect, Normal Mood - Skin Skin Exam: Dry, Normal Color, Warm Assessment and Plan - Assessment and Plan (Free Text) Assessment: 76 y/o female patient with PMHx of MDS on Chemotherapy , chronic Atrial Fibrillation, CAD, COPD, Diabetes, Gastritis, HTN, Hypercholesterolemia, Hypothyroidism, came in upon the advice of Dr Bajwa ( covering for Dr Luz Nunes ). Pt has been having fever and cough . CT of the Chest : multifocal Pneumonia. 1). Pneumonia multifocal likely bacterial in an immunodeficient pt secondary to chemotherapy for MDS - CXR: Negative; no acute findings. Positive on clinical exam - CT Scan w/o contrast ordered to specify location: - Multifocal infiltrates likely infectious/inflammatory. Trace of bilateral plural effusions. Underlying COPD manifestations - Afebrile, WBC @ 5.2 today - Sputum culture: -Normal oral monserrat (Final) - ID consult - recommendations appreciated - D/C Avelox and started Azithromycin, continue Zosyn - Pulmonology consulted: Dr Vazquez - Promethazine/Codine 5 ml q6 - control cough - Duoneb q4 - changed from q8 - Pt received a dose on IV vanco 2). Acute Renal Failure on CKD Stage III - Nephrology consulted - recommendations appreciated - Most likely acute kidney injury related to meds - D/C vancomycin - Hyponatremia improving - Continue monitoring kidney function and electrolyte - Renal ultrasound - unremarkable renal US examination 3). 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 Nunes - Last chemotherapy in March ( every 5 wks sched ) 4). Anemia - secondary to MDS - stable 5). HTN - Amlodipine 5mg qd - Furosemide 20 mg qd 6). Hypercholesterolemia - Atorvastatin 10 mg 7). Chronic Atrial Fibrillation - Metoprolol 50 mg BID - Rivaroxaban 15 mg 8). Diabetes type II - Sliding scale - Sitagliptin 100 mg qd -glyburide held - restart on discharge - d/c Actos - Diabetic diet 9). Gastritis - Femotidine 20 mg BID 10). DVT prophylaxis - Ambulating - SCD - Patient is already on rivaroxaban
--- NOTE | 2017-04-22 17:16 | CP.PCM.PN ---
Subjective - Date & Time of Evaluation Date of Evaluation: 04/22/17 Time of Evaluation: 17:10 - Subjective Subjective: Follow up Nephrology Consultation Note Assessment: Stable Acute Kidney Injury (N17.9)improving Hyponatremia: improved MDS, Anemia, Atrial Fibrillation, CAD, COPD, Diabetes, Gastritis, HTN, Hypercholesterolemia, Hypothyroidism, severe TR Plan No acute need for renal replacement therapy at this time. renal fxn improving Hypertension control with meds as ordered. Patient not on ACEI/ARB due to recent NICOLE Monitor Input/Output, daily weights and renal function with basic metabolic panel continue with lasix but as bid Dose meds/antibiotics for reduced GFR. Avoid fleets enema/magnesium based laxatives. Avoid nephrotoxins/NSAIDs/ iodinated contrast (unless needed emergently) Glycemic control Further work up for as per primary team Thanks for allowing me to participate in care of your patient. Will follow patient with you. Please call if any Qs Dr Ryland Trevizo Office: [phone] Subjective: Noted events overnight. Patients feels okay. Denies chest pain, palpitation, improved shortness of breath, c/o leg swelling. All other negative Physical Examination: General Appearance: Comfortable, in no acute respiratory distress, co-operative . Vitals reviewed and noted as below Head; Atraumatic, normocephalic ENT: no ulcers no thrush. Tongue is midline. Oropharynx: no rash or ulcers. EYES: Pupils are equal, round and reactive to light accommodation. Eye muscles and extraocular movement intact. Sclera is anicteric. Neck; supple no lymphadenopathy, no thyromegaly or bruit Lungs: Normal respiratory rate/effort. Breath sounds bilateral equal and clear except few basal crackle Heart: Normal rate. s1s2 normal. No rub or gallop. Extremities: 2+ edema. No varicose veins Neurological: Patient is alert, awake and oriented to person, place and time. No focal deficit. Strength bilateral appropriate and equal Skin: Warm and dry. Normal turgor. No rash. Palpitation: Normal elasticity for age Abdomen: Abdomen is soft. Bowel sounds +. There is no abdominal tenderness, no guarding/rigidity no organomegaly Psych: normal insight and normal affect/mood MSK: no joint tenderness or swelling. Digits and nails normal, no deformity : kidney or bladder not palpable Labs/imaging reviewed. Past medical history, past surgical history, family history, social history, allergy reviewed and noted as below Family hx: no hx of CKD. Rest non-contributory renal sono: WNL Urine Na 36 and urine Osmol 338 PTH 40 prot/cr: 238 Objective - Vital Signs/Intake and Output Vital Signs (last 24 hours): Temp Pulse Resp BP Pulse Ox 97.9 F 67 20 114/75 97 04/22/17 16:20 04/22/17 16:51 04/22/17 16:20 04/22/17 16:51 04/22/17 16:20 - Medications Medications: Current Medications Acetaminophen (Tylenol 325mg Tab) 650 mg PO Q6 PRN PRN Reason: Fever >100.4 F Albuterol/Ipratropium (Duoneb 3 Mg/0.5 Mg (3 Ml) Ud) 3 ml INH RQID [facility] Last Admin: 04/22/17 15:45 Dose: 3 ml Amlodipine Besylate (Norvasc) 5 mg PO DAILY [facility] Last Admin: 04/22/17 08:38 Dose: 5 mg Aspirin (Ecotrin) 81 mg PO DAILY [facility] Last Admin: 04/22/17 08:40 Dose: 81 mg Atorvastatin Calcium (Lipitor) 10 mg PO HS [facility] Last Admin: 04/21/17 22:10 Dose: 10 mg Famotidine (Pepcid) 20 mg PO BID [facility] Last Admin: 04/22/17 16:51 Dose: 20 mg Furosemide (Lasix) 20 mg PO DAILY [facility] Last Admin: 04/22/17 08:41 Dose: 20 mg Piperacillin Sod/Tazobactam (Sod 2.25 gm/ Sodium Chloride) 100 mls @ 100 mls/ hr IVPB Q8 [facility] PRN Reason: Protocol Last Admin: 04/22/17 16:56 Dose: 100 mls/hr Azithromycin 500 mg/ Sodium (Chloride) 250 mls @ 250 mls/hr IVPB DAILY@1630 [facility] PRN Reason: Protocol Last Admin: 04/21/17 17:16 Dose: 250 mls/hr Insulin Human Lispro (Humalog) 0 units SC AC [facility] PRN Reason: Protocol Last Admin: 04/22/17 16:50 Dose: Not Given Metoprolol Tartrate (Lopressor) 50 mg PO BID [facility] Last Admin: 04/22/17 16:51 Dose: 50 mg Ondansetron HCl (Zofran Inj) 4 mg IVP Q6 PRN PRN Reason: Nausea/Vomiting Potassium Chloride (K-Dur 20 Meq Er Tab) 20 meq PO DAILY [facility] Last Admin: 04/22/17 08:39 Dose: 20 meq Promethazine HCl/Codeine (Phenergan/Codeine Oral Syrup) 5 ml PO Q6 PRN PRN Reason: Cough Last Admin: 04/20/17 17:21 Dose: 5 ml Rivaroxaban (Xarelto) 15 mg PO QD5 [facility] PRN Reason: Protocol Last Admin: 04/22/17 16:51 Dose: 15 mg Sitagliptin Phosphate (Januvia) 100 mg PO DAILY [facility] Last Admin: 04/22/17 08:41 Dose: 100 mg - Labs Labs: 04/22/17 05:30 04/22/17 05:30
[2017-04-22] MEDS: Azithromycin 500 MG in Sodium Chloride 0.9% 250 ML IVPB SCH (17:49)
--- NOTE | 2017-04-22 20:13 | CP.PCM.PN ---
Subjective - Date & Time of Evaluation Date of Evaluation: 04/22/17 Time of Evaluation: 16:00 - Subjective Subjective: Covering Dr. Nunes Feeling better Objective - Vital Signs/Intake and Output Vital Signs (last 24 hours): Temp Pulse Resp BP Pulse Ox 97.9 F 67 20 114/75 97 04/22/17 16:20 04/22/17 16:51 04/22/17 16:20 04/22/17 16:51 04/22/17 16:20 - Medications Medications: Current Medications Acetaminophen (Tylenol 325mg Tab) 650 mg PO Q6 PRN PRN Reason: Fever >100.4 F Albuterol/Ipratropium (Duoneb 3 Mg/0.5 Mg (3 Ml) Ud) 3 ml INH RQID [facility] Last Admin: 04/22/17 19:23 Dose: 3 ml Amlodipine Besylate (Norvasc) 5 mg PO DAILY [facility] Last Admin: 04/22/17 08:38 Dose: 5 mg Aspirin (Ecotrin) 81 mg PO DAILY [facility] Last Admin: 04/22/17 08:40 Dose: 81 mg Atorvastatin Calcium (Lipitor) 10 mg PO HS [facility] Last Admin: 04/21/17 22:10 Dose: 10 mg Famotidine (Pepcid) 20 mg PO BID [facility] Last Admin: 04/22/17 16:51 Dose: 20 mg Furosemide (Lasix) 20 mg PO BID [facility] Piperacillin Sod/Tazobactam (Sod 2.25 gm/ Sodium Chloride) 100 mls @ 100 mls/ hr IVPB Q8 [facility] PRN Reason: Protocol Last Admin: 04/22/17 16:56 Dose: 100 mls/hr Azithromycin 500 mg/ Sodium (Chloride) 250 mls @ 250 mls/hr IVPB DAILY@1630 [facility] PRN Reason: Protocol Last Admin: 04/22/17 17:49 Dose: 250 mls/hr Insulin Human Lispro (Humalog) 0 units SC [facility] PRN Reason: Protocol Last Admin: 04/22/17 16:50 Dose: Not Given Metoprolol Tartrate (Lopressor) 50 mg PO BID [facility] Last Admin: 04/22/17 16:51 Dose: 50 mg Ondansetron HCl (Zofran Inj) 4 mg IVP Q6 PRN PRN Reason: Nausea/Vomiting Potassium Chloride (K-Dur 20 Meq Er Tab) 20 meq PO DAILY [facility] Last Admin: 04/22/17 08:39 Dose: 20 meq Rivaroxaban (Xarelto) 15 mg PO QD5 [facility] PRN Reason: Protocol Last Admin: 04/22/17 16:51 Dose: 15 mg Sitagliptin Phosphate (Januvia) 100 mg PO DAILY [facility] Last Admin: 04/22/17 08:41 Dose: 100 mg - Labs Labs: 04/22/17 05:30 04/22/17 05:30 - Head Exam Head Exam: ATRAUMATIC - ENT Exam ENT Exam: Mucous Membranes Dry - Respiratory Exam Respiratory Exam: NORMAL BREATHING PATTERN - Cardiovascular Exam Cardiovascular Exam: +S1, +S2 - GI/Abdominal Exam GI & Abdominal Exam: Normal Bowel Sounds Assessment and Plan (1) Anemia Assessment & Plan: H/H fairly stable Status: Acute (2) MDS (myelodysplastic syndrome) Assessment & Plan: outpatient treatment with Dr. Nunes Status: Acute
[2017-04-23 06:42] LABS: HEMOGLOBIN 9.2 g/dL (12.0-16.0); MEAN CELL VOLUME 82.1 fl (81.0-99.0); MEAN CORPUSCULAR HEMOGLOBIN 26.4 pg (27.0-31.0); MEAN CORPUSCULAR HGB CONC 32.1 g/dL (33.0-37.0); RBC 3.47 Mil/uL (3.80-5.20); RED CELL DISTRIBUTION WIDTH 18.6 % (11.5-14.5)
[2017-04-23 06:53] LABS: CALCIUM 8.6 mg/dL (8.4-10.2)
[2017-04-23] MEDS: Insulin Lispro (humaLOG) 100 Units/ml Inj SC SCH ×3 (07:30→16:41)
[2017-04-23] MEDS: Albuterol-Ipratrop 3 mg / 0.5 (3 ml) UD INH SCH ×4 (08:27→19:43)
[2017-04-23] MEDS: Potassium Chloride 20 mEq ER Tab PO SCH (08:46)
--- NOTE | 2017-04-23 11:22 | CP.PCM.PN ---
Subjective - Date & Time of Evaluation Date of Evaluation: 04/23/17 Time of Evaluation: 10:30 - Subjective Subjective: Patient seen and evaluated bedside.Feeling better. tachycardic, Bp stable, afebrile, saturating 96 % in RA With minimal dry coughing spells. No acute issues overnight Objective - Vital Signs/Intake and Output Vital Signs (last 24 hours): Temp Pulse Resp BP Pulse Ox 98.4 F 113 H 20 139/72 95 04/23/17 08:00 04/23/17 08:47 04/23/17 08:00 04/23/17 08:47 04/23/17 08:00 - Medications Medications: Current Medications Acetaminophen (Tylenol 325mg Tab) 650 mg PO Q6 PRN PRN Reason: Fever >100.4 F Albuterol/Ipratropium (Duoneb 3 Mg/0.5 Mg (3 Ml) Ud) 3 ml INH RQID [facility] Last Admin: 04/23/17 08:27 Dose: 3 ml Amlodipine Besylate (Norvasc) 5 mg PO DAILY [facility] Last Admin: 04/23/17 08:45 Dose: 5 mg Aspirin (Ecotrin) 81 mg PO DAILY [facility] Last Admin: 04/23/17 08:46 Dose: 81 mg Atorvastatin Calcium (Lipitor) 10 mg PO HS [facility] Last Admin: 04/22/17 21:05 Dose: 10 mg Famotidine (Pepcid) 20 mg PO BID [facility] Last Admin: 04/23/17 08:46 Dose: 20 mg Furosemide (Lasix) 20 mg PO BID [facility] Last Admin: 04/23/17 08:47 Dose: 20 mg Piperacillin Sod/Tazobactam (Sod 2.25 gm/ Sodium Chloride) 100 mls @ 100 mls/ hr IVPB Q8 [facility] PRN Reason: Protocol Last Admin: 04/23/17 08:44 Dose: 100 mls/hr Azithromycin 500 mg/ Sodium (Chloride) 250 mls @ 250 mls/hr IVPB DAILY@1630 [facility] PRN Reason: Protocol Last Admin: 04/22/17 17:49 Dose: 250 mls/hr Insulin Human Lispro (Humalog) 0 units SC AC [facility] PRN Reason: Protocol Last Admin: 04/23/17 07:30 Dose: Not Given Metoprolol Tartrate (Lopressor) 50 mg PO BID [facility] Last Admin: 04/23/17 08:47 Dose: 50 mg Ondansetron HCl (Zofran Inj) 4 mg IVP Q6 PRN PRN Reason: Nausea/Vomiting Potassium Chloride (K-Dur 20 Meq Er Tab) 20 meq PO DAILY [facility] Last Admin: 04/23/17 08:46 Dose: 20 meq Rivaroxaban (Xarelto) 15 mg PO QD5 [facility] PRN Reason: Protocol Last Admin: 04/22/17 16:51 Dose: 15 mg Sitagliptin Phosphate (Januvia) 100 mg PO DAILY [facility] Last Admin: 04/23/17 08:45 Dose: 100 mg - Labs Labs: 04/23/17 06:35 04/23/17 06:35 - Constitutional Appears: Non-toxic, No Acute Distress - Head Exam Head Exam: ATRAUMATIC, NORMAL INSPECTION, NORMOCEPHALIC - Eye Exam Eye Exam: EOMI, Normal appearance, PERRL Pupil Exam: NORMAL ACCOMODATION - ENT Exam ENT Exam: Mucous Membranes Moist, Normal Exam - Neck Exam Neck Exam: Normal Inspection - Respiratory Exam Respiratory Exam: Rales, Respiratory Distress, NORMAL BREATHING PATTERN. absent : Rhonchi, Wheezes - Cardiovascular Exam Cardiovascular Exam: Tachycardia, Irregular Rhythm, +S1, +S2. absent: JVD - GI/Abdominal Exam GI & Abdominal Exam: Soft, Normal Bowel Sounds. absent: Distended, Guarding, Tenderness, Rebound - Rectal Exam Rectal Exam: Deferred - Extremities Exam Extremities Exam: Normal Capillary Refill, Normal Inspection, Pedal Edema (2 +) - Back Exam Back Exam: NORMAL INSPECTION - Neurological Exam Neurological Exam: Alert, Awake, CN II-XII Intact, Oriented x3 - Psychiatric Exam Psychiatric exam: Normal Affect, Normal Mood - Skin Skin Exam: Dry, Pallor, Warm Assessment and Plan - Assessment and Plan (Free Text) Assessment: 76 y/o female patient with PMHx of MDS on Chemotherapy , chronic Atrial Fibrillation, CAD, COPD, Diabetes, Gastritis, HTN, Hypercholesterolemia, Hypothyroidism, came in upon the advice of Dr Bajwa ( covering for Dr Luz Nunes ). Pt has been having fever and cough . CT of the Chest : multifocal Pneumonia.Patient admitted to med/surg . ID, pulmonary consulted and she was started on Rocephin and zithromax.Clinically improving . 1.Pneumonia multifocal likely bacterial in an immunodeficient pt secondary to chemotherapy for MDS clinically improving CT chest showed :Multifocal infiltrates likely infectious/inflammatory. Trace of bilateral plural effusions. Underlying COPD manifestations Sputum culture:Normal oral monserrat ID consult appreciated. recommended continuation of IV zosyn and zithromax IV Pulmonology consulted: Dr Vazquez Continue Promethazine/Codine 5 ml q6 for cough suppression Duoneb q4 RTC 2. Acute Renal Failure on CKD Stage III Nephrology consult appreciated Most likely acute kidney injury related to meds discontinued vancomycin, discontinued Losartan/HCTZ Hyponatremia improved Continue monitoring kidney function and electrolyte Renal ultrasound showed unremarkable renal US examination 3. 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 Nunes Last chemotherapy in March ( every 5 wks sched ) 4. 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 HTN controlled on Amlodipine 5mg qd and Furosemide 20 mg bid, metoprolol NO ACEI / ARB due to NICOLE 6. Hypercholesterolemia on Atorvastatin 10 mg 7. Chronic Atrial Fibrillation rate controlled - Metoprolol 50 mg BID - Rivaroxaban 15 mg 8. Diabetes type II Sliding scale Sitagliptin 100 mg qd glyburide held - restart on discharge if kidney fxn improves d/c Actos Diabetic diet 9. Gastritis Famotidine 20 mg BID 10. DVT prophylaxis Ambulating SCD Patient is already on rivaroxaban
--- NOTE | 2017-04-23 16:18 | CP.PCM.PN ---
Subjective - Date & Time of Evaluation Date of Evaluation: 04/23/17 Time of Evaluation: 16:18 - Subjective Subjective: Follow up Nephrology Consultation Note Assessment: Stable Acute Kidney Injury (N17.9)improving Hyponatremia: improved MDS, Anemia, Atrial Fibrillation, CAD, COPD, Diabetes, Gastritis, HTN, Hypercholesterolemia, Hypothyroidism, severe TR Plan No acute need for renal replacement therapy at this time. renal fxn improving Hypertension control with meds as ordered. Patient not on ACEI/ARB due to recent NICOLE. avoid HCTZ Monitor Input/Output, daily weights and renal function with basic metabolic panel continue with lasix but as bid. may increase dose further as needed Dose meds/antibiotics for improved GFR. Avoid fleets enema/magnesium based laxatives. Avoid nephrotoxins/NSAIDs/ iodinated contrast (unless needed emergently) Glycemic control Further work up for as per primary team Thanks for allowing me to participate in care of your patient. Will follow patient with you. Please call if any Qs Dr Ryland Trevizo Office: [phone] Subjective: Noted events overnight. Patients feels okay. Denies chest pain, palpitation, improved shortness of breath, c/o leg swelling. All other negative Physical Examination: General Appearance: Comfortable, in no acute respiratory distress, co-operative . Vitals reviewed and noted as below Head; Atraumatic, normocephalic ENT: no ulcers no thrush. Tongue is midline. Oropharynx: no rash or ulcers. EYES: Pupils are equal, round and reactive to light accommodation. Eye muscles and extraocular movement intact. Sclera is anicteric. Neck; supple no lymphadenopathy, no thyromegaly or bruit Lungs: Normal respiratory rate/effort. Breath sounds bilateral equal and clear except few basal crackle Heart: Normal rate. s1s2 normal. No rub or gallop. Extremities: 2+ edema. No varicose veins Neurological: Patient is alert, awake and oriented to person, place and time. No focal deficit. Strength bilateral appropriate and equal Skin: Warm and dry. Normal turgor. No rash. Palpitation: Normal elasticity for age Abdomen: Abdomen is soft. Bowel sounds +. There is no abdominal tenderness, no guarding/rigidity no organomegaly Psych: normal insight and normal affect/mood MSK: no joint tenderness or swelling. Digits and nails normal, no deformity : kidney or bladder not palpable Labs/imaging reviewed. Past medical history, past surgical history, family history, social history, allergy reviewed and noted as below Family hx: no hx of CKD. Rest non-contributory renal sono: WNL Urine Na 36 and urine Osmol 338 PTH 40 prot/cr: 238 Objective - Vital Signs/Intake and Output Vital Signs (last 24 hours): Temp Pulse Resp BP Pulse Ox 98.4 F 113 H 20 139/72 95 04/23/17 08:00 04/23/17 08:47 04/23/17 08:00 04/23/17 08:47 04/23/17 08:00 - Medications Medications: Current Medications Acetaminophen (Tylenol 325mg Tab) 650 mg PO Q6 PRN PRN Reason: Fever >100.4 F Albuterol/Ipratropium (Duoneb 3 Mg/0.5 Mg (3 Ml) Ud) 3 ml INH RQID [facility] Last Admin: 04/23/17 15:57 Dose: 3 ml Amlodipine Besylate (Norvasc) 5 mg PO DAILY [facility] Last Admin: 04/23/17 08:45 Dose: 5 mg Aspirin (Ecotrin) 81 mg PO DAILY [facility] Last Admin: 04/23/17 08:46 Dose: 81 mg Atorvastatin Calcium (Lipitor) 10 mg PO HS [facility] Last Admin: 04/22/17 21:05 Dose: 10 mg Famotidine (Pepcid) 20 mg PO BID [facility] Last Admin: 04/23/17 08:46 Dose: 20 mg Furosemide (Lasix) 20 mg PO BID [facility] Last Admin: 04/23/17 08:47 Dose: 20 mg Piperacillin Sod/Tazobactam (Sod 2.25 gm/ Sodium Chloride) 100 mls @ 100 mls/ hr IVPB Q8 [facility] PRN Reason: Protocol Last Admin: 04/23/17 08:44 Dose: 100 mls/hr Azithromycin 500 mg/ Sodium (Chloride) 250 mls @ 250 mls/hr IVPB DAILY@1630 [facility] PRN Reason: Protocol Last Admin: 04/22/17 17:49 Dose: 250 mls/hr Insulin Human Lispro (Humalog) 0 units SC AC [facility] PRN Reason: Protocol Last Admin: 04/23/17 12:50 Dose: 2 units Metoprolol Tartrate (Lopressor) 50 mg PO BID [facility] Last Admin: 04/23/17 08:47 Dose: 50 mg Ondansetron HCl (Zofran Inj) 4 mg IVP Q6 PRN PRN Reason: Nausea/Vomiting Potassium Chloride (K-Dur 20 Meq Er Tab) 20 meq PO DAILY [facility] Last Admin: 04/23/17 08:46 Dose: 20 meq Rivaroxaban (Xarelto) 15 mg PO QD5 [facility] PRN Reason: Protocol Last Admin: 04/22/17 16:51 Dose: 15 mg Sitagliptin Phosphate (Januvia) 100 mg PO DAILY [facility] Last Admin: 04/23/17 08:45 Dose: 100 mg - Labs Labs: 04/23/17 06:35 04/23/17 06:35
[2017-04-23] MEDS: Azithromycin 500 MG in Sodium Chloride 0.9% 250 ML IVPB SCH (16:39)
--- NOTE | 2017-04-23 17:39 | CP.PCM.PN ---
Subjective - Date & Time of Evaluation Date of Evaluation: 04/23/16 Time of Evaluation: 17:35 - Subjective Subjective: I D NOTE LIKELy DISCHARGE IN AM ,BUT WILL ORDER REPEAT CT SCAN AFEBRILE COUGH IMPROVED BUT STILL PRESENT STATES NO SOB PERIPHERAL EDEMA PERSISTS CONSIDER EVALUATION OF CARDIAC MEDS BY Objective - Vital Signs/Intake and Output Vital Signs (last 24 hours): Temp Pulse Resp BP Pulse Ox 97.3 F L 97 H 20 143/83 93 L 04/23/17 16:19 04/23/17 16:38 04/23/17 16:19 04/23/17 16:40 04/23/17 16:19 - Medications Medications: Current Medications Acetaminophen (Tylenol 325mg Tab) 650 mg PO Q6 PRN PRN Reason: Fever >100.4 F Albuterol/Ipratropium (Duoneb 3 Mg/0.5 Mg (3 Ml) Ud) 3 ml INH RQID [facility] Last Admin: 04/23/17 15:57 Dose: 3 ml Amlodipine Besylate (Norvasc) 5 mg PO DAILY [facility] Last Admin: 04/23/17 08:45 Dose: 5 mg Aspirin (Ecotrin) 81 mg PO DAILY [facility] Last Admin: 04/23/17 08:46 Dose: 81 mg Atorvastatin Calcium (Lipitor) 10 mg PO HS [facility] Last Admin: 04/22/17 21:05 Dose: 10 mg Famotidine (Pepcid) 20 mg PO BID [facility] Last Admin: 04/23/17 16:38 Dose: 20 mg Furosemide (Lasix) 20 mg PO BID [facility] Last Admin: 04/23/17 16:40 Dose: 20 mg Piperacillin Sod/Tazobactam (Sod 2.25 gm/ Sodium Chloride) 100 mls @ 100 mls/ hr IVPB Q8 [facility] PRN Reason: Protocol Last Admin: 04/23/17 16:39 Dose: 100 mls/hr Azithromycin 500 mg/ Sodium (Chloride) 250 mls @ 250 mls/hr IVPB DAILY@1630 [facility] PRN Reason: Protocol Last Admin: 04/23/17 16:39 Dose: 250 mls/hr Insulin Human Lispro (Humalog) 0 units SC AC [facility] PRN Reason: Protocol Last Admin: 04/23/17 16:41 Dose: 2 units Metoprolol Tartrate (Lopressor) 50 mg PO BID [facility] Last Admin: 04/23/17 16:38 Dose: 50 mg Ondansetron HCl (Zofran Inj) 4 mg IVP Q6 PRN PRN Reason: Nausea/Vomiting Potassium Chloride (K-Dur 20 Meq Er Tab) 20 meq PO DAILY [facility] Last Admin: 04/23/17 08:46 Dose: 20 meq Rivaroxaban (Xarelto) 15 mg PO QD5 [facility] PRN Reason: Protocol Last Admin: 04/23/17 16:38 Dose: 15 mg Sitagliptin Phosphate (Januvia) 100 mg PO DAILY [facility] Last Admin: 04/23/17 08:45 Dose: 100 mg - Labs Labs: 04/23/17 06:35 04/23/17 06:35
[2017-04-24 06:22] LABS: HEMOGLOBIN 9.4 g/dL (12.0-16.0); MEAN CELL VOLUME 82.5 fl (81.0-99.0); MEAN CORPUSCULAR HEMOGLOBIN 26.2 pg (27.0-31.0); MEAN CORPUSCULAR HGB CONC 31.7 g/dL (33.0-37.0); RBC 3.59 Mil/uL (3.80-5.20); WHITE BLOOD COUNT 5.2 K/uL (4.8-10.8)
[2017-04-24 06:37] LABS: CALCIUM 8.6 mg/dL (8.4-10.2)
[2017-04-24] MEDS: Insulin Lispro (humaLOG) 100 Units/ml Inj SC SCH ×2 (07:30→12:37)
[2017-04-24] MEDS: Albuterol-Ipratrop 3 mg / 0.5 (3 ml) UD INH SCH ×2 (07:34→11:18)
[2017-04-24 07:46] VITALS: BP 151/95; PULSE 100; RESP 20; TEMP 97.1; O2SAT 97
[2017-04-24] MEDS: Potassium Chloride 20 mEq ER Tab PO SCH (09:00)
--- NOTE | 2017-04-24 09:16 | CP.PCM.PN ---
Subjective - Date & Time of Evaluation Date of Evaluation: 04/24/17 Time of Evaluation: 09:11 - Subjective Subjective: Patient sitting up in the chair feeling good No nausea or vomiting Appetite okay Objective - Vital Signs/Intake and Output Vital Signs (last 24 hours): Temp Pulse Resp BP Pulse Ox 97.1 F L 100 H 20 151/95 H 97 04/24/17 07:45 04/24/17 09:02 04/24/17 07:45 04/24/17 09:02 04/24/17 07:45 - Medications Medications: Current Medications Acetaminophen (Tylenol 325mg Tab) 650 mg PO Q6 PRN PRN Reason: Fever >100.4 F Albuterol/Ipratropium (Duoneb 3 Mg/0.5 Mg (3 Ml) Ud) 3 ml INH RQID [facility] Last Admin: 04/24/17 07:34 Dose: 3 ml Amlodipine Besylate (Norvasc) 5 mg PO DAILY [facility] Last Admin: 04/24/17 09:01 Dose: 5 mg Aspirin (Ecotrin) 81 mg PO DAILY [facility] Last Admin: 04/24/17 08:59 Dose: 81 mg Atorvastatin Calcium (Lipitor) 10 mg PO HS [facility] Last Admin: 04/23/17 21:34 Dose: 10 mg Famotidine (Pepcid) 20 mg PO BID [facility] Last Admin: 04/24/17 09:01 Dose: 20 mg Furosemide (Lasix) 20 mg PO BID [facility] Last Admin: 04/24/17 09:00 Dose: 20 mg Piperacillin Sod/Tazobactam (Sod 2.25 gm/ Sodium Chloride) 100 mls @ 100 mls/ hr IVPB Q8 [facility] PRN Reason: Protocol Last Admin: 04/24/17 09:03 Dose: 100 mls/hr Azithromycin 500 mg/ Sodium (Chloride) 250 mls @ 250 mls/hr IVPB DAILY@1630 [facility] PRN Reason: Protocol Last Admin: 04/23/17 16:39 Dose: 250 mls/hr Insulin Human Lispro (Humalog) 0 units SC AC [facility] PRN Reason: Protocol Last Admin: 04/24/17 07:30 Dose: Not Given Metoprolol Tartrate (Lopressor) 50 mg PO BID [facility] Last Admin: 04/24/17 09:02 Dose: 50 mg Ondansetron HCl (Zofran Inj) 4 mg IVP Q6 PRN PRN Reason: Nausea/Vomiting Potassium Chloride (K-Dur 20 Meq Er Tab) 20 meq PO DAILY [facility] Last Admin: 04/24/17 09:00 Dose: 20 meq Rivaroxaban (Xarelto) 15 mg PO QD5 [facility] PRN Reason: Protocol Last Admin: 04/23/17 16:38 Dose: 15 mg Sitagliptin Phosphate (Januvia) 100 mg PO DAILY [facility] Last Admin: 04/24/17 09:01 Dose: 100 mg - Labs Labs: 04/24/17 05:40 04/24/17 05:40 - Constitutional Appears: No Acute Distress - ENT Exam ENT Exam: Mucous Membranes Moist - Respiratory Exam Respiratory Exam: absent: Chest Wall Tenderness - Cardiovascular Exam Cardiovascular Exam: absent: JVD, Rubs - GI/Abdominal Exam GI & Abdominal Exam: Soft, Normal Bowel Sounds - Extremities Exam Extremities Exam: absent: Calf Tenderness - Back Exam Back Exam: absent: CVA tenderness (L), CVA tenderness (R) - Neurological Exam Neurological Exam: Alert - Skin Skin Exam: absent: Cyanosis Assessment and Plan (1) Acute kidney injury Assessment & Plan: Acute kidney injury patient is recovering serum creatinine came down to normal level at this point Hyponatremia serum sodium in the range of 135 which has been stable fluid restriction MDS, Anemia, Atrial Fibrillation, CAD, COPD, Diabetes, Gastritis, HTN, Hypercholesterolemia, Hypothyroidism, severe TR Status: Acute (2) MDS (myelodysplastic syndrome) Status: Acute (3) Pneumonia Status: Acute
--- NOTE | 2017-04-24 10:05 | CP.PCM.DIS ---
Provider - Provider Date of Admission: 04/19/17 11:40 Attending physician: Mark Wolf MD Primary care physician: Paresh Suggs MD Time Spent in preparation of Discharge (in minutes): 20 Diagnosis - Discharge Diagnosis (1) Pneumonia Status: Resolved (2) Bronchopneumonia Status: Resolved Priority: High (3) Acute kidney injury Status: Resolved Hospital Course - Lab Results Lab Results: Micro Results 04/18/17 19:00 Blood Blood Culture - Final NO GROWTH AFTER 5 DAYS 04/18/17 19:00 Blood Gram Stain - Final TEST NOT PERFORMED 04/19/17 10:01 Sputum Gram Stain - Final 04/19/17 10:01 Sputum Sputum Culture - Final NORMAL ORAL MONSERRAT Most Recent Lab Values WBC 5.2 K/uL (4.8-10.8) 04/24/17 05:40 RBC 3.59 Mil/uL (3.80-5.20) L 04/24/17 05:40 Hgb 9.4 g/dL (12.0-16.0) L 04/24/17 05:40 Hct 29.7 % (34.0-47.0) L 04/24/17 05:40 MCV 82.5 fl (81.0-99.0) 04/24/17 05:40 MCH 26.2 pg (27.0-31.0) L 04/24/17 05:40 MCHC 31.7 g/dL (33.0-37.0) L 04/24/17 05:40 RDW 19.0 % (11.5-14.5) H 04/24/17 05:40 Plt Count 153 K/uL (130-400) 04/24/17 05:40 MPV 9.1 fl (7.2-11.7) 04/19/17 06:00 Neut % (Auto) 80.6 % (50.0-75.0) H 04/19/17 06:00 Lymph % (Auto) 5.7 % (20.0-40.0) L 04/19/17 06:00 [place] % (Auto) 5.7 % (0.0-10.0) 04/19/17 06:00 Eos % (Auto) 6.8 % (0.0-4.0) H 04/19/17 06:00 Baso % (Auto) 1.2 % (0.0-2.0) 04/19/17 06:00 Neut # 5.6 K/uL (1.8-7.0) 04/19/17 06:00 Lymph # 0.4 K/uL (1.0-4.3) L 04/19/17 06:00 [place] # 0.4 K/uL (0.0-0.8) 04/19/17 06:00 Eos # 0.5 K/uL (0.0-0.7) 04/19/17 06:00 Baso # 0.1 K/uL (0.0-0.2) 04/19/17 06:00 pO2 29 mm/Hg (30-55) L 04/18/17 15:24 VBG pH 7.40 (7.32-7.43) 04/18/17 15:24 VBG pCO2 45 mmHg (40-60) 04/18/17 15:24 VBG HCO3 25.7 mmol/L 04/18/17 15:24 VBG Total CO2 29.3 mmol/L (22-28) H 04/18/17 15:24 VBG O2 Sat (Calc) 57.2 % (40-65) 04/18/17 15:24 VBG Base Excess 2.5 mmol/L (0.0-2.0) H 04/18/17 15:24 VBG Potassium 4.2 mmol/L (3.6-5.2) 04/18/17 15:24 Sodium 127.0 mmol/L (132-148) L 04/18/17 15:24 Chloride 94.0 mmol/L (98-107) L 04/18/17 15:24 Glucose 116 mg/dL (65-105) H 04/18/17 15:24 Lactate 1.1 mmol/L (0.7-2.1) 04/18/17 15:24 FiO2 21.0 % 04/18/17 15:24 Sodium 135 mmol/l (132-148) 04/24/17 05:40 Potassium 3.6 MMOL/L (3.6-5.0) 04/24/17 05:40 Chloride 98 mmol/L (98-107) 04/24/17 05:40 Carbon Dioxide 28 mmol/L (22-30) 04/24/17 05:40 Anion Gap 13 (10-20) 04/24/17 05:40 BUN 14 mg/dl (7-17) 04/24/17 05:40 Creatinine 1.2 mg/dl (0.7-1.2) 04/24/17 05:40 Est GFR ( Amer) 53 04/24/17 05:40 Est GFR (Non-Af Amer) 44 04/24/17 05:40 POC Glucose (mg/dL) 139 mg/dL (65-110) H 04/24/17 05:14 Random Glucose 140 mg/dL (65-105) H 04/24/17 05:40 Calcium 8.6 mg/dL (8.4-10.2) 04/24/17 05:40 Phosphorus 4.7 mg/dl (2.5-4.5) H 04/19/17 11:19 Total Bilirubin 0.7 mg/dl (0.2-1.3) 04/19/17 06:00 AST 27 U/L (14-36) 04/19/17 06:00 ALT 44 U/L (9-52) 04/19/17 06:00 Alkaline Phosphatase 117 U/L (38-126) 04/19/17 06:00 Total Protein 5.6 G/DL (6.3-8.2) L 04/19/17 06:00 Albumin 3.2 g/dL (3.5-5.0) L 04/19/17 06:00 Globulin 2.4 gm/dL (2.2-3.9) 04/19/17 06:00 Albumin/Globulin Ratio 1.4 (1.0-2.1) 04/19/17 06:00 Procalcitonin 0.78 NG/ML (0.19-0.49) H 04/18/17 16:40 PTH Intact Whole Molec 40 pg/mL (14-64) 04/19/17 12:40 Venous Blood Potassium 4.2 mmol/L (3.6-5.2) 04/18/17 15:24 Urine Color Yellow (YELLOW) 04/19/17 14:15 Urine Clarity Slighty-cloudy (Clear) 04/19/17 14:15 Urine pH 6.0 (5.0-8.0) 04/19/17 14:15 Ur Specific [place] 1.008 (1.003-1.030) 04/19/17 14:15 Urine Protein Negative mg/dL (NEGATIVE) 04/19/17 14:15 Urine Glucose (UA) Neg mg/dL (Normal) 04/19/17 14:15 Urine Ketones Negative mg/dL (NEGATIVE) 04/19/17 14:15 Urine Blood Negative (NEGATIVE) 04/19/17 14:15 Urine Nitrate Negative (NEGATIVE) 04/19/17 14:15 Urine Bilirubin Negative (NEGATIVE) 04/19/17 14:15 Urine Urobilinogen 0.2-1.0 mg/dL (0.2-1.0) 04/19/17 14:15 Ur Leukocyte Esterase Trace Shi/uL (Negative) 04/19/17 14:15 Urine RBC (Auto) 2 /hpf (0-3) 04/19/17 14:15 Urine Microscopic WBC 11 /hpf (0-5) H 04/19/17 14:15 Ur Squamous Epith Cells 3 /hpf (0-5) 04/19/17 14:15 Urine Bacteria Rare (<OCC) 04/19/17 14:15 Urine Osmolality 338 mosm/kg (300-1000) 04/19/17 14:15 Ur Random Creatinine 83.9 mg/dL 04/19/17 14:15 U Random Total Protein 20.0 mg/dL (0.0-12.0) H 04/19/17 14:15 Ur Random Sodium 36 mmol/L 04/19/17 14:15 Random Vancomycin 8.8 ug/mL 04/19/17 11:19 Cold Agglutinins Negative (NEGATIVE) 04/19/17 06:00 C. difficile Ag & Toxin Negative (NEGATIVE) 04/18/17 06:27 Influenza Typ A,B (EIA) Negative for flu a/b (NEGATIVE) 04/18/17 19:23 Ur L.pneumophila Ag Negative (NEGATIVE) 04/18/17 10:01 Mycoplasma pneumon IgG 1.09 (<=0.90) H 04/18/17 06:00 Mycoplasma pneumon IgM 27 U/mL (<770) 04/18/17 06:00 - Hospital Course Hospital Course: 77 y/o female patient currently on chemotherapy with PMHx of anemia, atrial fibrillation, CAD, COPD, Diabetes, Gastritis, HTN, Hypercholesterolemia, Hypothyroidism, MDS, pneumonia was admitted to the hospital for pneumonia and acute renal failure. During the hospital stay, patient was seen by infectious disease, nephrology, hematology and pulmonology. Patient received azithromycin and zosyn while in the hospital. Patient's renal function was improved during the hospital stay. Patient is feeling well overall and her coughing, breathing, and diarrhea has improved. Patient has been afebrile and has no acute leukocytosis. Patient is stable to be discharged home at this time. Patient will be discharged home with Augmentin and Zithromax PO for 7 days. 1.Pneumonia multifocal likely bacterial in an immunodeficient pt secondary to chemotherapy for MDS Resolved CT chest showed upon arrival: Multifocal infiltrates likely infectious/ inflammatory. Trace of bilateral plural effusions. Underlying COPD manifestations Sputum culture: Normal oral monserrat ID consult appreciated. Received IV zosyn and zithromax IV (6 days) Pulmonology consulted: Dr Vazquez Received Promethazine/Codine 5 ml q6 for cough suppression Duoneb q4 RTC Outpatient: Augmentin and Zithromax for 7 days 2. Acute Renal Failure on CKD Stage III Renal function improved Nephrology consult appreciated Most likely acute kidney injury related to meds discontinued vancomycin, discontinued Losartan/HCTZ Hyponatremia improved Renal ultrasound showed unremarkable renal US examination 3. MDS Heme/onc consult appreciated Anemia secondary to MDS cont outpatient Azacytadine with Dr. Nunes Last chemotherapy in March (Every 5 weeks scheduled) 4. 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 HTN controlled Amlodipine - held due to fluid retention Furosemide 20 mg bid, metoprolol increased to 100 mg NO ACEI / ARB due to NICOLE 6. Hypercholesterolemia on Atorvastatin 10 mg 7. Chronic Atrial Fibrillation rate controlled - Metoprolol 100 mg BID - Rivaroxaban 15 mg 8. Diabetes type II Sliding scale while in hospital Sitagliptin 100 mg qd glyburide d/c Actos Diabetic diet 9. Gastritis Famotidine 20 mg BID - Date & Time of H&P Date of H&P: 04/24/17 Time of H&P: 09:55 Discharge Exam - Head Exam Head Exam: ATRAUMATIC, NORMAL INSPECTION, NORMOCEPHALIC - Eye Exam Eye Exam: Normal appearance - ENT Exam ENT Exam: Normal Exam - Respiratory Exam Respiratory Exam: Clear to PA & Lateral, NORMAL BREATHING PATTERN, UNREMARKABLE - Cardiovascular Exam Cardiovascular Exam: REGULAR RHYTHM, +S1, +S2 - GI/Abdominal Exam GI & Abdominal Exam: Normal Bowel Sounds, Soft, Unremarkable - Rectal Exam Rectal Exam: Deferred - Extremities Exam Extremities exam: full ROM, normal inspection - Back Exam Back exam: FULL ROM, NORMAL INSPECTION - Neurological Exam Neurological exam: Alert, Oriented x3 - Psychiatric Exam Psychiatric exam: Normal Affect, Normal Mood - Skin Skin Exam: Intact, Normal Color, Warm Discharge Plan - Discharge Medications Prescriptions: Amoxicillin/Clavulanate [Augmentin 500 MG-125 MG] 1 tab PO BID #14 tab Azithromycin [Zithromax] 250 mg PO DAILY #7 tab Furosemide [Lasix] 20 mg PO BID 30 Days #60 tab Metoprolol Tartrate [Lopressor] 100 mg PO BID #60 tablet - Follow Up Plan Condition: GOOD Disposition: HOME/ ROUTINE Instructions: Myelodysplastic Syndromes (DC), Community Acquired Pneumonia (DC) Additional Instructions: follow up with on monday04/26/17 at 1230pm. Referrals: Houston Vazquez MD [Staff Provider] - Paresh Suggs MD [Primary Care Provider] -
--- NOTE | 2017-04-24 10:53 | CT ---
PROCEDURE: CT Chest without contrast HISTORY: Pneumonia COMPARISON: Chest CT without contrast 04/18/2017. TECHNIQUE: Contiguous axial images were obtained through the chest without intravenous contrast enhancement. Sagittal and coronal reconstructions were performed. Radiation dose (DLP): 490.13 mGy-cm. This CT exam was performed using one or more of the following dose reduction techniques: Automated exposure control, adjustment of the mA and/or kV according to patient size, and/or use of iterative reconstruction technique. FINDINGS: LUNGS: Limited ground-glass opacity and infiltrate are appreciated at the bladder apices and mid bilateral lower lobes which are slightly increased in the interval bilaterally with likely compressive atelectasis increased slightly at the bases. No central air rate lesion is appreciated in the interval. Mild peribronchial thickening remains bilaterally. MEDIASTINUM: Thoracic aorta and main pulmonary artery remain normal caliber. [id number] mediastinal lymphadenopathy is not simply changed including a 2.0 x 1.3 cm inferior pretracheal lymph node. Cardiomegaly stable with MediPort again seen terminating at the right atrium. Extensive coronary artery calcifications are reiterated as well as sternotomy wires. PLEURA: Mild bilateral pleural effusions are slightly greater the right than left sides. No pericardial effusion. This is a mild interval progression in evaluation of the pleura. No pneumothorax in the interval. BONES: No fracture. No destructive lesion. UPPER ABDOMEN: Mild splenomegaly noted. OTHER FINDINGS: None. IMPRESSION: 1. Mild increase in multifocal limited infiltrates affecting the bilateral upper and lower lobe somewhat. 2. Mild bilateral pleural effusions are identified increase from trace volume previously, greater the right than left with related compressive atelectasis at the bilateral lower lobes. 3. Stable cardiomegaly and mild to moderate mediastinal lymphadenopathy. 4. Mild bronchitis pattern again appreciable. 5. Incidental splenomegaly, mild.
--- NOTE | 2017-04-24 11:07 | CP.PCM.PN ---
Subjective - Date & Time of Evaluation Date of Evaluation: 04/24/17 Time of Evaluation: 11:06 Objective - Vital Signs/Intake and Output Vital Signs (last 24 hours): Temp Pulse Resp BP Pulse Ox 97.1 F L 100 H 20 151/95 H 97 04/24/17 07:45 04/24/17 09:02 04/24/17 07:45 04/24/17 09:02 04/24/17 07:45 - Medications Medications: Current Medications Acetaminophen (Tylenol 325mg Tab) 650 mg PO Q6 PRN PRN Reason: Fever >100.4 F Albuterol/Ipratropium (Duoneb 3 Mg/0.5 Mg (3 Ml) Ud) 3 ml INH RQID [facility] Last Admin: 04/24/17 07:34 Dose: 3 ml Amlodipine Besylate (Norvasc) 5 mg PO DAILY [facility] Last Admin: 04/24/17 09:01 Dose: 5 mg Aspirin (Ecotrin) 81 mg PO DAILY [facility] Last Admin: 04/24/17 08:59 Dose: 81 mg Atorvastatin Calcium (Lipitor) 10 mg PO HS [facility] Last Admin: 04/23/17 21:34 Dose: 10 mg Famotidine (Pepcid) 20 mg PO BID [facility] Last Admin: 04/24/17 09:01 Dose: 20 mg Furosemide (Lasix) 20 mg PO BID [facility] Last Admin: 04/24/17 09:00 Dose: 20 mg Piperacillin Sod/Tazobactam (Sod 2.25 gm/ Sodium Chloride) 100 mls @ 100 mls/ hr IVPB Q8 [facility] PRN Reason: Protocol Last Admin: 04/24/17 09:03 Dose: 100 mls/hr Azithromycin 500 mg/ Sodium (Chloride) 250 mls @ 250 mls/hr IVPB DAILY@1630 [facility] PRN Reason: Protocol Last Admin: 04/23/17 16:39 Dose: 250 mls/hr Insulin Human Lispro (Humalog) 0 units SC AC [facility] PRN Reason: Protocol Last Admin: 04/24/17 07:30 Dose: Not Given Metoprolol Tartrate (Lopressor) 50 mg PO BID [facility] Last Admin: 04/24/17 09:02 Dose: 50 mg Ondansetron HCl (Zofran Inj) 4 mg IVP Q6 PRN PRN Reason: Nausea/Vomiting Potassium Chloride (K-Dur 20 Meq Er Tab) 20 meq PO DAILY [facility] Last Admin: 04/24/17 09:00 Dose: 20 meq Rivaroxaban (Xarelto) 15 mg PO QD5 [facility] PRN Reason: Protocol Last Admin: 04/23/17 16:38 Dose: 15 mg Sitagliptin Phosphate (Januvia) 100 mg PO DAILY [facility] Last Admin: 04/24/17 09:01 Dose: 100 mg - Labs Labs: 04/24/17 05:40 04/24/17 05:40 Assessment and Plan (1) Bronchopneumonia Status: Resolved (2) Atrial fibrillation Status: Acute (3) 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
== END 2017-04-24 13:30 | disposition home or self-care (01) | DRG 194 ==
LOC: H.ER 13:47 → H.ERHOLD 14:35 → H.MEDSURG1 17:22 → OBSVTOIN 04-19 11:40 → H.MEDSURG1 04-23 21:53
PROVIDERS: ADMIT Internal Medicine; ATTEND Internal Medicine
DX: J18.0 Bronchopneumonia, unspecified organism (principal); J44.0 Chronic obstructive pulmonary disease with (acute) lower respiratory infection; N17.9 Acute kidney failure, unspecified; D84.9 Immunodeficiency, unspecified; E11.22 Type 2 diabetes mellitus with diabetic chronic kidney disease; N18.3 Chronic kidney disease, stage 3 (moderate); E87.1 Hypo-osmolality and hyponatremia; I48.2 Chronic atrial fibrillation; D46.9 Myelodysplastic syndrome, unspecified; D63.1 Anemia in chronic kidney disease; E05.90 Thyrotoxicosis, unspecified without thyrotoxic crisis or storm; K29.70 Gastritis, unspecified, without bleeding; T45.1X5A Adverse effect of antineoplastic and immunosuppressive drugs, initial encounter; Z79.82 Long term (current) use of aspirin; Z79.899 Other long term (current) drug therapy; Z87.01 Personal history of pneumonia (recurrent); Z87.891 Personal history of nicotine dependence; Z95.1 Presence of aortocoronary bypass graft; Z95.5 Presence of coronary angioplasty implant and graft; Z79.84 Long term (current) use of oral hypoglycemic drugs; M54.9 Dorsalgia, unspecified; R00.0 Tachycardia, unspecified; R19.7 Diarrhea, unspecified; R60.0 Localized edema; E03.9 Hypothyroidism, unspecified; E78.00 Pure hypercholesterolemia, unspecified; G47.33 Obstructive sleep apnea (adult) (pediatric); H91.91 Unspecified hearing loss, right ear; I12.9 Hypertensive chronic kidney disease with stage 1 through stage 4 chronic kidney disease, or unspecified chronic kidney disease; I25.10 Atherosclerotic heart disease of native coronary artery without angina pectoris

== ENCOUNTER 2017-05-30 11:48 | Inpatient (IN) | payer MEDICARE, BC ==
[2017-05-30] MEDS ORDERED: Phenylephrine 0.5% Nasal Spray NAS STA (12:12)
[2017-05-30] MEDS ORDERED: Tdap Vaccine 0.5 ml Vial (10-64 yrs) IM ONE ×2 (12:12→12:29)
--- NOTE | 2017-05-30 12:15 | ED PDOC ---
HPI: General Adult Time Seen by Provider: 05/30/17 12:13 Chief Complaint (Nursing): Trauma Chief Complaint (Provider): head injury History Per: Patient (77 y/o female h/o Myelodysplastic disorder on Xarelta here for evaluation of trip and fall with head injury. Denies any LOC. Nosebleed noted. Unsure of tetanus status.) Past Medical History Reviewed: Historical Data, Nursing Documentation, Vital Signs Vital Signs: Last Vital Signs Temp 96.5 F L 05/30/17 11:51 Pulse 105 H 05/30/17 11:51 Resp 18 05/30/17 11:51 BP 164/94 H 05/30/17 11:51 Pulse Ox 97 05/30/17 11:51 - Medical History PMH: Anemia, Atrial Fibrillation, CAD, COPD, Diabetes, Gastritis, HTN, Hypercholesterolemia, Hypothyroidism, Malignancy, Pneumonia Denies: HIV - Surgical History Surgical History: CABG, Coronary Stent - Family History Family History: States: Unknown Family Hx - Home Medications Home Medications: Ambulatory Orders Medication Instructions Recorded SITagliptin [Januvia] 100 mg PO DAILY 11/12/16 glyBURIDE [Micronase] 5 mg PO DAILY 11/12/16 Potassium Chloride [K-Dur 20 mEq 20 meq PO DAILY 01/09/17 ER Tab] Aspirin [Ecotrin] 81 mg PO DAILY tabec 04/24/17 Atorvastatin [Lipitor] 10 mg PO HS tab 04/24/17 Furosemide [Lasix] 20 mg PO BID 30 Days #60 tab 04/24/17 Metoprolol Tartrate [Lopressor] 100 mg PO BID #60 tablet 04/24/17 Rivaroxaban [Xarelto] 15 mg PO DAILY 05/08/17 - Allergies Allergies/Adverse Reactions: Allergies Allergy/AdvReac Type Severity Reaction Status Date / Time No Known Allergies Allergy Verified 05/30/17 11:54 Review of Systems ROS Statement: Except As Marked, All Systems Reviewed And Found Negative Physical Exam - Reviewed Nursing Documentation Reviewed: Yes Vital Signs Reviewed: Yes - Physical Exam Appears: Positive for: Well, Non-toxic, No Acute Distress Head Exam: Positive for: ATRAUMATIC, NORMAL INSPECTION, NORMOCEPHALIC Skin: Positive for: Normal Color, Warm, DRY Eye Exam: Positive for: EOMI, Normal appearance, PERRL ENT: Positive for: Other (nasal congestion noted. Epistaxis bilaterally.). Negative for: Normal ENT Inspection Neck: Positive for: Normal, Painless ROM Cardiovascular/Chest: Positive for: Regular Rate, Rhythm Respiratory: Positive for: CNT, Normal Breath Sounds Gastrointestinal/Abdominal: Positive for: Normal Exam, Bowel Sounds, Soft Back: Positive for: Normal Inspection Extremity: Positive for: Normal ROM Neurologic/Psych: Positive for: Alert, Oriented - ECG O2 Sat by Pulse Oximetry: 97 - Progress ED Course And Treament: Tdap 0.5 ml IM x [address] soaked [address] in bilateral nares. Disposition - Disposition
[2017-05-30] MEDS ORDERED: Phenylephrine 0.5% Nasal Spray NAS ONE (12:29)
--- NOTE | 2017-05-30 13:15 | CT ---
PROCEDURE: CT HEAD WITHOUT CONTRAST. HISTORY: head injury COMPARISON: None available. TECHNIQUE: Axial computed tomography images were obtained through the head/brain without intravenous contrast. Radiation dose: Total exam DLP = 763.2 mGy-cm. This CT exam was performed using one or more of the following dose reduction techniques: Automated exposure control, adjustment of the mA and/or kV according to patient size, and/or use of iterative reconstruction technique. FINDINGS: HEMORRHAGE: No intracranial hemorrhage. Small amount of partially imaged hemorrhage within the nasopharynx. BRAIN: No mass effect or edema. Mild atrophy. Mild chronic periventricular white matter microvascular ischemic changes. VENTRICLES: Unremarkable. No hydrocephalus. CALVARIUM: Unremarkable. PARANASAL SINUSES: Unremarkable as visualized. No significant inflammatory changes. MASTOID AIR CELLS: Unremarkable as visualized. No inflammatory changes. OTHER FINDINGS: None. IMPRESSION: No acute intracranial pathology.
--- NOTE | 2017-05-30 13:18 | CT ---
PROCEDURE: CT ORBITS WITHOUT CONTRAST. HISTORY: r/o fx COMPARISON: None available. TECHNIQUE: Axial CT images of the orbits were obtained. Coronal and sagittal reformats were generated. Radiation dose: Total exam DLP = 711.7 mGy-cm. This CT exam was performed using one or more of the following dose reduction techniques: Automated exposure control, adjustment of the mA and/or kV according to patient size, and/or use of iterative reconstruction technique. FINDINGS: RIGHT ORBIT: RIGHT BONY ORBIT: Normal. RIGHT INTRAORBITAL STRUCTURES: Globe: Normal. Extraocular muscles: Normal. Post septal space: Normal. Optic Nerve: Normal. Lacrimal Apparatus: Normal. RIGHT PRESEPTAL SOFT TISSUES: Normal. LEFT ORBIT: LEFT BONY ORBIT: Normal. LEFT INTRAORBITAL STRUCTURES: Globe: Normal. Extraocular muscles: Normal. Post septal space: Normal Optic Nerve: Normal. . Lacrimal Apparatus: Normal. LEFT PRESEPTAL SOFT TISSUES: Normal. OTHER: Bilateral displaced nasal bone fractures with choanal and nasopharyngeal hemorrhage. IMPRESSION: Bilateral displaced nasal bone fractures with choanal and nasopharyngeal hemorrhage.
--- NOTE | 2017-05-30 13:21 | CT ---
PROCEDURE: CT Cervical Spine without contrast HISTORY: Trauma/fall COMPARISON: None available. TECHNIQUE: Axial computed tomography images were obtained of the cervical spine without the use of intravenous contrast. Coronal and sagittal reformatted images were created and reviewed. Radiation dose: Total exam DLP = 416.2 mGy-cm. This CT exam was performed using one or more of the following dose reduction techniques: Automated exposure control, adjustment of the mA and/or kV according to patient size, and/or use of iterative reconstruction technique. FINDINGS: VERTEBRAE: No fracture. Normal alignment. No destructive bony lesion. DISCS/SPINAL CANAL/NEURAL FORAMINA: Multilevel disc space narrowing with reversal of normal cervical lordosis centered at C4-5. Multilevel disc osteophyte complexes resulting in mild spinal canal stenosis at C4-5 and C5-6. PARASPINAL SOFT TISSUES: Unremarkable. OTHER FINDINGS: Partially imaged right internal jugular access chest port and sternotomy. IMPRESSION: No acute fracture. Multilevel degenerative changes.
[2017-05-30] MEDS ORDERED: Thrombin Topical 5,000 Int Units Spray Kit TOP ONE (14:40)
[2017-05-30 14:43] LABS: BASO % 1.6 % (0.0-2.0); EOS # 0.1 K/uL (0.0-0.7); EOS % 6.8 % (0.0-4.0); HEMOGLOBIN 10.9 g/dL (12.0-16.0); LYMPH # 0.7 K/uL (1.0-4.3); LYMPH % 31.9 % (20.0-40.0); MEAN CELL VOLUME 82.2 fl (81.0-99.0); MEAN CORPUSCULAR HEMOGLOBIN 25.7 pg (27.0-31.0); MEAN CORPUSCULAR HGB CONC 31.3 g/dL (33.0-37.0); MEAN PLATELET VOLUME 8.7 fl (7.2-11.7); MONO # 0.3 K/uL (0.0-0.8); MONO % 15.9 % (0.0-10.0); NEUT # 0.9 K/uL (1.8-7.0); NEUT % 43.8 % (50.0-75.0); NRBC % 0.1 % (0.0-0.0); RBC 4.23 Mil/uL (3.80-5.20); RED CELL DISTRIBUTION WIDTH 17.2 % (11.5-14.5); WHITE BLOOD COUNT 2.1 K/uL (4.8-10.8)
[2017-05-30 15:05] LABS: ALB/GLOB RATIO 1.6 (1.0-2.1); ALBUMIN 3.7 g/dL (3.5-5.0); ALT/SGPT 33 U/L (9-52); AST/SGOT 18 U/L (14-36); BLOOD UREA NITROGEN 21 mg/dl (7-17); CALCIUM 9.2 mg/dL (8.4-10.2); GFR AFRICAN-AMERICAN > 60; GFR NON-AFRICAN AMERICAN 54; INR 1.4 (0.9-1.2); PARTIAL THROMBOPLASTIN TIME 44.7 Seconds (25.6-37.1); PROTHROMBIN TIME 15.1 Seconds (9.8-13.1)
--- NOTE | 2017-05-30 19:38 | CP.PCM.HP ---
History of Present Illness - History of Present Illness History of Present Illness: 76 yo ,f, PMhx/o MDS currently on chemotherapy, Anemia, Atrial Fibrillation, CAD (CABG triple bypass), COPD, Diabetes, Gastritis, HTN, Hypercholesterolemia, Hypothyroidism is brought to Ed by ambulance for evaluation of a fall. Patient reports she was walking from the garage to the building today in the morning 11 Am and she tripped on the sidewalk and fell down, landing over her face. She reports b/l nasal bleeding resulted from fall. She denies symptoms prior the fall and denies subsequent confusion, weakness, slurred speech, chest pain, SOB. Patient was sent to Ed by ambulance. On my evaluation patient sitting with b/l nasal packing, able to talk, no Sob, noted, VS stable. PMD: Dr Trey Nunes PMHx: MDS, Anemia, Atrial Fibrillation, CAD, COPD, Diabetes, Gastritis, HTN, Hypercholesterolemia, Hypothyroidism, Pneumonia PSHx: ABG, Coronary Stent Allergies: N.K.D.A Medication: Reviewed SHx: denies of smoking (former smoker), EtOH use or illicit drug usage, lives alone FHx: denies Ed Course VS: BP: 164/94 O2sat: 97 HR: 105 Labs: CBC 2.1>10.9<126 CMP: Bun/Cr 21/1.0 GFR: 54 PT 15.1 INR: 1.4 Imaging: Head CT: no intracranial hemorrhage Cervical Spine CT: No acute fracture. Multilevel degenerative changes. Orbit /Facial CT: B/l displaced nasal bone fractures with choanal and nasopharyngeal hemorrhage. Meds: Thrombin 5000 units Present on Admission - Present on Admission Any Indicators Present on Admission: No History of DVT/PE: No History of Uncontrolled Diabetes: No Urinary Catheter: No Review of Systems - Constitutional Constitutional: As Per HPI - EENT Eyes: absent: Blurred Vision Nose/Mouth/Throat: Epistaxis, Nasal Trauma - Cardiovascular Cardiovascular: As Per HPI. absent: Chest Pain - Respiratory Respiratory: As Per HPI. absent: Dyspnea, Wheezing - Gastrointestinal Gastrointestinal: As Per HPI Past Patient History - Past Medical History & Family History Past Medical History?: Yes - Past Social History Smoking Status: Heavy Smoker > 10 Cigarettes Daily - CARDIAC Hx Atrial Fibrillation: Yes Hx Hypercholesterolemia: Yes Hx Hypertension: Yes - PULMONARY Hx Chronic Obstructive Pulmonary Disease (COPD): Yes Hx Pneumonia: Yes - HEENT Other/Comment: Right ear -deaf - ENDOCRINE/METABOLIC Hx Hypothyroidism: Yes - HEMATOLOGICAL/ONCOLOGICAL Hx Anemia: Yes Hx Human Immunodeficiency Virus (HIV): No - MUSCULOSKELETAL/RHEUMATOLOGICAL Hx Back Pain: Yes (epidural) Hx Falls: No - GASTROINTESTINAL Hx Gastritis: Yes - PSYCHIATRIC Hx Emotional Abuse: No Hx Physical Abuse: No Hx Substance Use: No - SURGICAL HISTORY Hx Coronary Artery Bypass Graft: Yes Hx Coronary Stent: Yes - ANESTHESIA Hx Anesthesia: Yes Hx Anesthesia Reactions: No Hx Malignant Hyperthermia: No Meds Allergies/Adverse Reactions: Allergies Allergy/AdvReac Type Severity Reaction Status Date / Time No Known Allergies Allergy Verified 05/30/17 11:54 Results - Vital Signs Recent Vital Signs: Last Vital Signs Temp 97.6 F 05/30/17 19:36 Pulse 93 H 05/30/17 19:36 Resp 20 05/30/17 19:36 BP 153/75 H 05/30/17 19:36 Pulse Ox 98 05/30/17 19:36 - Labs Result Diagrams: 05/30/17 14:26 05/30/17 14:26 Labs: Laboratory Results - last 24 hr 05/30/17 05/30/17 05/30/17 14:26 14:26 14:26 WBC 2.1 L RBC 4.23 Hgb 10.9 L Hct 34.8 MCV 82.2 MCH 25.7 L MCHC 31.3 L RDW 17.2 H Plt Count 126 L MPV 8.7 Neut % (Auto) 43.8 L Lymph % (Auto) 31.9 [place] % (Auto) 15.9 H Eos % (Auto) 6.8 H Baso % (Auto) 1.6 Neut # (Auto) 0.9 L Lymph # (Auto) 0.7 L [place] # (Auto) 0.3 Eos # (Auto) 0.1 Baso # (Auto) 0.0 PT 15.1 H INR 1.4 H APTT 44.7 H Sodium 135 Potassium 3.5 L Chloride 97 L Carbon Dioxide 27 Anion Gap 15 BUN 21 H Creatinine 1.0 Est GFR ( Amer) > 60 Est GFR (Non-Af Amer) 54 Random Glucose 146 H Calcium 9.2 Total Bilirubin 1.0 AST 18 ALT 33 Alkaline Phosphatase 66 Total Protein 5.9 L Albumin 3.7 Globulin 2.2 Albumin/Globulin Ratio 1.6 Assessment & Plan - Assessment and Plan (Free Text) Plan: 76 yo ,f, PMhx/o MDS currently on chemotherapy, Anemia, Atrial Fibrillation, CAD (CABG triple bypass), COPD, Diabetes, Gastritis, HTN, Hypercholesterolemia, Hypothyroidism admitted for observation Med/surg for facial trauma and traumatic epistaxis. Assessment/Plan 1) Facial Trauma with secondary traumatic epistaxis -secondary to fall - Orbit/Facial CT: B/l displaced nasal bone fractures with choanal and nasopharyngeal hemorrhage. -B/L nasal ballon packing. No active bleeding - Head CT: no intracranial hemorrhage -Cervical Spine CT: No acute fracture. Multilevel degenerative changes -ENT consult appreciated: will come to remove packing 2) Epistaxis traumatic bilateral -secondary to facial trauma --Orbit/Facial CT: B/l displaced nasal bone fractures with choanal and nasopharyngeal hemorrhage. -B/L nasal ballon packing -ENT consult appreciated: will come to remove packing -prophylactic Abx treatment Augmentin 875mg BID: Immunosuppressed pt with MDS -s/p Thrombin 5000 units given in ED -Head elevation, aspiration precaution. 3) Pancytopenia -secondary to MDS -on chemotherapy treatment by portacath -Hem-Onc consult Dr Nunes on board -f/u cbc 4) Atrial Fibrillation -Hold Xarelto -News Assignment Editor Consult suggested -c/w metoprolol 5) CAD -(CABG triple bypass) -c/w metoprolol -hold aspirin for active bleeding 6) DM -c/w home medications -diabetic diet -SSI -f/u Hg A1c 7) Hypothyroidism -c/w synthroid -Last TSH 14.7 T3 0.9 -f/u TSH, ft4, ft3 8) HTN -c/w Lopressor -c/w Lasix 9) HLD -c/w Lipitor 10 mg daily 10) CKD stage 4 -Bun/CR 21/1.0 GFR: 54 11) DVT Prophylaxis -SCD -Hold xarelto, hold aspirin.
[2017-05-30] MEDS ORDERED: Glucagon Recombinant 1 mg Inj IM PRN (19:49)
[2017-05-30] MEDS ORDERED: Dextrose 50% SYRINGE Inj (50 ml) IV PRN (19:49)
[2017-05-30] MEDS ORDERED: Amoxicillin-Clav 875-125 mg Tab PO ONE (21:29)
[2017-05-30] MEDS: Amoxicillin-Clav 875-125 mg Tab PO SCH (21:32)
[2017-05-30] MEDS: Insulin Lispro (humaLOG) 100 Units/ml Inj SC SCH (22:33)
[2017-05-30] MEDS: Levothyroxine 25 MCG TAB PO SCH (22:34)
[2017-05-31 06:44] LABS: BASO % 2.4 % (0.0-2.0); EOS # 0.1 K/uL (0.0-0.7); EOS % 6.4 % (0.0-4.0); HEMOGLOBIN 10.2 g/dL (12.0-16.0); LYMPH # 0.6 K/uL (1.0-4.3); LYMPH % 40.1 % (20.0-40.0); MEAN CELL VOLUME 80.5 fl (81.0-99.0); MEAN CORPUSCULAR HEMOGLOBIN 26.5 pg (27.0-31.0); MEAN PLATELET VOLUME 8.7 fl (7.2-11.7); MONO # 0.3 K/uL (0.0-0.8); MONO % 18.4 % (0.0-10.0); NEUT # 0.5 K/uL (1.8-7.0); NEUT % 32.7 % (50.0-75.0); NRBC % 0.4 % (0.0-0.0); RBC 3.86 Mil/uL (3.80-5.20); RED CELL DISTRIBUTION WIDTH 16.8 % (11.5-14.5)
[2017-05-31 06:47] LABS: ALB/GLOB RATIO 1.5 (1.0-2.1); ALBUMIN 3.2 g/dL (3.5-5.0); ALT/SGPT 31 U/L (9-52); AST/SGOT 13 U/L (14-36); BLOOD UREA NITROGEN 20 mg/dl (7-17); CALCIUM 9.3 mg/dL (8.4-10.2); GFR AFRICAN-AMERICAN > 60; GFR NON-AFRICAN AMERICAN 54
[2017-05-31 07:49] LABS: WHITE BLOOD COUNT 1.6 K/uL (4.8-10.8)
--- NOTE | 2017-05-31 07:49 | CP.PCM.PN ---
Subjective - Date & Time of Evaluation Date of Evaluation: 05/31/17 Time of Evaluation: 07:30 - Subjective Subjective: The patient was seen and examined this morning bedside. There are no acute events overnight, NAD. The patient is laying in bed comfortably. The patient denies facial pain and has not requested pain medication. The patient has no other complaints. The patient denies headaches, dizziness, chest pain, SOB, abdominal pain, nausea, vomiting, diarrhea, dysuria, or fever. Objective - Vital Signs/Intake and Output Vital Signs (last 24 hours): Temp Pulse Resp BP Pulse Ox 97.6 F 98 H 18 123/69 96 05/31/17 00:10 05/31/17 00:10 05/31/17 00:10 05/31/17 00:10 05/31/17 00:10 - Medications Medications: Current Medications Acetaminophen (Tylenol 325mg Tab) 650 mg PO Q6 PRN PRN Reason: Pain, Mild (1-3) Acetaminophen (Tylenol 325mg Tab) 650 mg PO Q6 PRN PRN Reason: Fever >100.4 F Amoxicillin/Clavulanate Potassium (Augmentin 875 Mg-125 Mg Tab) 1 tab PO Q12 [facility] PRN Reason: Protocol Stop: 05/31/17 09:00 Last Admin: 05/30/17 21:32 Dose: Not Given Amoxicillin/Clavulanate Potassium (Augmentin 875 Mg-125 Mg Tab) 1 tab PO Q12 [facility] PRN Reason: Protocol Atorvastatin Calcium (Lipitor) 10 mg PO HS [facility] Last Admin: 05/30/17 22:34 Dose: 10 mg Dextrose (Dextrose 50% Inj) 0 ml IV STAT PRN; Protocol PRN Reason: Hypoglycemia Protocol Dextrose (Glutose 15) 0 gm PO ONCE PRN; Protocol PRN Reason: Hypoglycemia Protocol Furosemide (Lasix) 20 mg PO BID [facility] Glucagon (Glucagen Diagnostic Kit) 0 mg IM STAT PRN; Protocol PRN Reason: Hypoglycemia Protocol Glyburide (Micronase) 5 mg PO DAILY [facility] Insulin Human Lispro (Humalog) 0 units SC ACHS [facility] PRN Reason: Protocol Last Admin: 05/30/17 22:33 Dose: Not Given Levothyroxine Sodium (Synthroid) 25 mcg PO HS [facility] Last Admin: 05/30/17 22:34 Dose: 25 mcg Metoprolol Tartrate (Lopressor) 100 mg PO BID [facility] Potassium Chloride (K-Dur 20 Meq Er Tab) 20 meq PO DAILY [facility] Sitagliptin Phosphate (Januvia) 100 mg PO DAILY [facility] - Labs Labs: 05/30/17 14:26 05/31/17 05:40 PT 15.1 Seconds (9.8-13.1) H 05/30/17 14:26 INR 1.4 (0.9-1.2) H 05/30/17 14:26 APTT 44.7 Seconds (25.6-37.1) H 05/30/17 14:26 - Constitutional Appears: No Acute Distress - Head Exam Head Exam: NORMAL INSPECTION, NORMOCEPHALIC - Eye Exam Eye Exam: EOMI, Periorbital tenderness, PERRL Additional comments: bilateral periorbital contusion, no miller sign - ENT Exam ENT Exam: Mucous Membranes Moist Additional comments: bilateral nasal bone fracture, bilateral nares packed, tender - Neck Exam Neck Exam: Full ROM. absent: Tenderness - Respiratory Exam Respiratory Exam: Clear to Ausculation Bilateral, NORMAL BREATHING PATTERN. absent: Decreased Breath Sounds, Rales, Rhonchi, Wheezes, Respiratory Distress - Cardiovascular Exam Cardiovascular Exam: Irregular Rhythm. absent: Murmur - GI/Abdominal Exam GI & Abdominal Exam: Soft, Normal Bowel Sounds. absent: Distended, Tenderness - Extremities Exam Extremities Exam: Normal Inspection. absent: Calf Tenderness, Pedal Edema, Tenderness - Neurological Exam Neurological Exam: Alert, Awake, Oriented x3 - Skin Skin Exam: Dry, Intact, Normal Color, Warm Assessment and Plan - Assessment and Plan (Free Text) Assessment: 76 y/o woman w/ pmh of MDS currently on chemotherapy, Anemia, Atrial Fibrillation, CAD(CABG triple bypass), COPD, Diabetes, Gastritis, HTN, Hypercholesterolemia, and Hypothyroidism admitted for facial trauma and traumatic epistaxis. Plan: Facial Trauma with secondary traumatic epistaxis - 2/2 fall - Orbit/Facial CT: B/l displaced nasal bone fractures with choanal and nasopharyngeal hemorrhage. - B/L nasal balloon packing. No active bleeding - Head CT: no intracranial hemorrhage - Cervical Spine CT: No acute fracture. Multilevel degenerative changes - ENT consult appreciated: will come to remove packing - denies pain and has not requested pain medication Epistaxis traumatic bilateral - secondary to facial trauma - Orbit/Facial CT: B/l displaced nasal bone fractures with choanal and nasopharyngeal hemorrhage. - B/L nasal balloon packing - ENT consult appreciated: will come to remove packing - prophylactic Abx treatment Augmentin 875mg BID: Immunosuppressed patient with MDS - s/p Thrombin 5000 units given in ED - Head elevation, aspiration precaution. 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 Jacobo Nunes - c/w metoprolol CAD - hx of CABG triple bypass - c/w metoprolol - hold aspirin for active bleeding DM - c/w home medications - diabetic diet - SSI - f/u Hg A1c Hypothyroidism - c/w synthroid - Last TSH 14.7 T3 0.9 - f/u TSH, ft4, ft3 HTN - c/w Lopressor - c/w Lasix HLD - c/w Lipitor 10 mg daily CKD stage 4 - BUN/CR 21/1.0 GFR: 54 Prophylactic measures - DVT: SCD for now - Hold xarelto, hold aspirin.
[2017-05-31] MEDS: Amoxicillin-Clav 875-125 mg Tab PO SCH ×4 (09:30→23:27)
[2017-05-31] MEDS: Insulin Lispro (humaLOG) 100 Units/ml Inj SC SCH ×4 (09:32→22:28)
[2017-05-31] MEDS: Potassium Chloride 20 mEq ER Tab PO SCH (09:33)
--- NOTE | 2017-05-31 10:31 | CP.PCM.CON ---
History of Present Illness - History of Present Illness History of Present Illness: This is a 77 yrs old female whom we had seen in the infusion center in the morning, ad her hgb was 11.2gms and no procrit was needed, She was discharged but in font of her house she tripped and fell on her face and fractured her tiana. She is on xarelto for her A Fib, and had a fair amount of bleeding until the nose was packed.She is not bleeding now, but will see how she does is when the pack is removed. If no bleeding, could consider sending her home. She has a past h/o MDS, HTN,CHF, A Fib, and copd Past Patient History - Past Medical History & Family History Past Medical History?: Yes - Past Social History Smoking Status: Heavy Smoker > 10 Cigarettes Daily - CARDIAC Hx Atrial Fibrillation: Yes Hx Hypercholesterolemia: Yes Hx Hypertension: Yes - PULMONARY Hx Chronic Obstructive Pulmonary Disease (COPD): Yes Hx Pneumonia: Yes - HEENT Other/Comment: Right ear -deaf - RENAL Hx Chronic Kidney Disease: No - ENDOCRINE/METABOLIC Hx Hypothyroidism: Yes - HEMATOLOGICAL/ONCOLOGICAL Hx Anemia: Yes Hx Human Immunodeficiency Virus (HIV): No - INTEGUMENTARY Hx Dermatological Problems: No - MUSCULOSKELETAL/RHEUMATOLOGICAL Hx Back Pain: Yes (epidural) Hx Falls: No - GASTROINTESTINAL Hx Gastritis: Yes - GENITOURINARY/GYNECOLOGICAL Hx Genitourinary Disorders: No - PSYCHIATRIC Hx Emotional Abuse: No Hx Physical Abuse: No Hx Substance Use: No - SURGICAL HISTORY Hx Coronary Artery Bypass Graft: Yes Hx Coronary Stent: Yes - ANESTHESIA Hx Anesthesia: Yes Hx Anesthesia Reactions: No Hx Malignant Hyperthermia: No Meds Allergies/Adverse Reactions: Allergies Allergy/AdvReac Type Severity Reaction Status Date / Time No Known Allergies Allergy Verified 05/30/17 11:54 - Medications Medications: Current Medications Acetaminophen (Tylenol 325mg Tab) 650 mg PO Q6 PRN PRN Reason: Pain, Mild (1-3) Acetaminophen (Tylenol 325mg Tab) 650 mg PO Q6 PRN PRN Reason: Fever >100.4 F Amoxicillin/Clavulanate Potassium (Augmentin 875 Mg-125 Mg Tab) 1 tab PO Q12 [facility] PRN Reason: Protocol Last Admin: 05/31/17 09:31 Dose: Not Given Atorvastatin Calcium (Lipitor) 10 mg PO HS [facility] Last Admin: 05/30/17 22:34 Dose: 10 mg Cholecalciferol (Vitamin D) 1,000 intlu PO DAILY [facility] Dextrose (Dextrose 50% Inj) 0 ml IV STAT PRN; Protocol PRN Reason: Hypoglycemia Protocol Dextrose (Glutose 15) 0 gm PO ONCE PRN; Protocol PRN Reason: Hypoglycemia Protocol Furosemide (Lasix) 20 mg PO BID [facility] Last Admin: 05/31/17 09:33 Dose: 20 mg Glipizide (Glucotrol) 5 mg PO ACB [facility] Glucagon (Glucagen Diagnostic Kit) 0 mg IM STAT PRN; Protocol PRN Reason: Hypoglycemia Protocol Insulin Human Lispro (Humalog) 0 units SC ACHS [facility] PRN Reason: Protocol Last Admin: 05/31/17 09:32 Dose: Not Given Levothyroxine Sodium (Synthroid) 25 mcg PO HS [facility] Last Admin: 05/30/17 22:34 Dose: 25 mcg Metoprolol Tartrate (Lopressor) 100 mg PO BID [facility] Last Admin: 05/31/17 09:32 Dose: 100 mg Potassium Chloride (K-Dur 20 Meq Er Tab) 20 meq PO DAILY [facility] Last Admin: 05/31/17 09:33 Dose: 20 meq Sitagliptin Phosphate (Januvia) 100 mg PO DAILY [facility] Last Admin: 05/31/17 09:32 Dose: 100 mg Physical Exam - Additional Findings Additional findings: Physical exam; Alert, well oriented, Ecchymosis around both eyes neck; supple, no adenopathy Chest; Clear, no rales or rhonchi Heart; RSR, no murmur Abd; Soft, no mass, no h/s megaly Results - Vital Signs Recent Vital Signs: Last Vital Signs Temp 97.9 F 05/31/17 08:26 Pulse 100 H 05/31/17 09:32 Resp 20 05/31/17 08:26 BP 143/69 05/31/17 09:33 Pulse Ox 96 05/31/17 08:26 - Labs Result Diagrams: 05/31/17 05:40 05/31/17 05:40 Labs: Laboratory Results - last 24 hr 05/30/17 05/30/17 05/30/17 14:26 14:26 14:26 WBC 2.1 L RBC 4.23 Hgb 10.9 L Hct 34.8 MCV 82.2 MCH 25.7 L MCHC 31.3 L RDW 17.2 H Plt Count 126 L MPV 8.7 Neut % (Auto) 43.8 L Lymph % (Auto) 31.9 [place] % (Auto) 15.9 H Eos % (Auto) 6.8 H Baso % (Auto) 1.6 Neut # (Auto) 0.9 L Lymph # (Auto) 0.7 L [place] # (Auto) 0.3 Eos # (Auto) 0.1 Baso # (Auto) 0.0 PT 15.1 H INR 1.4 H APTT 44.7 H Sodium 135 Potassium 3.5 L Chloride 97 L Carbon Dioxide 27 Anion Gap 15 BUN 21 H Creatinine 1.0 Est GFR ( Amer) > 60 Est GFR (Non-Af Amer) 54 POC Glucose (mg/dL) Random Glucose 146 H Calcium 9.2 Total Bilirubin 1.0 AST 18 ALT 33 Alkaline Phosphatase 66 Total Protein 5.9 L Albumin 3.7 Globulin 2.2 Albumin/Globulin Ratio 1.6 Free T4 TSH 3rd Generation 05/30/17 05/30/17 05/31/17 20:08 22:14 05:23 WBC RBC Hgb Hct MCV MCH MCHC RDW Plt Count MPV Neut % (Auto) Lymph % (Auto) [place] % (Auto) Eos % (Auto) Baso % (Auto) Neut # (Auto) Lymph # (Auto) [place] # (Auto) Eos # (Auto) Baso # (Auto) PT INR APTT Sodium Potassium Chloride Carbon Dioxide Anion Gap BUN Creatinine Est GFR ( Amer) Est GFR (Non-Af Amer) POC Glucose (mg/dL) 149 H 124 H 89 Random Glucose Calcium Total Bilirubin AST ALT Alkaline Phosphatase Total Protein Albumin Globulin Albumin/Globulin Ratio Free T4 TSH 3rd Generation 05/31/17 05/31/17 05/31/17 05:40 05:40 05:40 WBC 1.6 L* RBC 3.86 Hgb 10.2 L Hct 31.0 L MCV 80.5 L MCH 26.5 L MCHC 33.0 RDW 16.8 H Plt Count 127 L MPV 8.7 Neut % (Auto) 32.7 L Lymph % (Auto) 40.1 H [place] % (Auto) 18.4 H Eos % (Auto) 6.4 H Baso % (Auto) 2.4 H Neut # (Auto) 0.5 L Lymph # (Auto) 0.6 L [place] # (Auto) 0.3 Eos # (Auto) 0.1 Baso # (Auto) 0.0 PT INR APTT Sodium 136 Potassium 3.7 Chloride 96 L Carbon Dioxide 30 Anion Gap 14 BUN 20 H Creatinine 1.0 Est GFR ( Amer) > 60 Est GFR (Non-Af Amer) 54 POC Glucose (mg/dL) Random Glucose 93 Calcium 9.3 Total Bilirubin 1.1 AST 13 L D ALT 31 Alkaline Phosphatase 60 Total Protein 5.3 L Albumin 3.2 L Globulin 2.1 L Albumin/Globulin Ratio 1.5 Free T4 1.22 TSH 3rd Generation 3.34 Assessment & Plan - Assessment and Plan (Free Text) Assessment: Impression; Anemia,MDS, Nasal fracture after a fall. Plan: Plan;if pt ssdoes not bleed when te nasal pack is removed, may be discharged - Date & Time Date: 05/31/17 Time: 10:40
[2017-05-31 11:44] LABS: INR 1.1 (0.9-1.2); PROTHROMBIN TIME 12.2 Seconds (9.8-13.1)
[2017-05-31 11:45] LABS: PARTIAL THROMBOPLASTIN TIME 39.6 Seconds (25.6-37.1)
[2017-05-31] MEDS: Cholecalciferol 1,000 INTLU TAB PO SCH (12:35)
--- NOTE | 2017-05-31 13:28 | CON ---
DATE: 05/31/2017 REASON FOR CONSULTATION: Epistaxis and nasal fracture. REQUESTING PHYSICIAN: April Panda MD HISTORY OF PRESENT ILLNESS: This is a 77-year-old female who is status post trauma to the nose yesterday. The patient presented to the ER visit and she has bilateral of epistaxis, constant and moderate in intensity, which resolved with bilateral nasal packing. The patient has no longer breathing. PAST MEDICAL HISTORY: As noted in the chart by me. MEDICATIONS: As noted in the chart by me. ALLERGIES: NO KNOWN DRUG ALLERGIES. PHYSICAL EXAMINATION: HEAD: Atraumatic and normocephalic. FACE: Bruising in the periorbital area and across the bridge of the nose. Good facial movements bilaterally. CONSTITUTIONAL: Well-fed and well-nourished. COMMUNICATION: Communicates well and appropriately. EXTERNAL NOSE AND EARS: No masses. No lesions. There is no bruising across the bridge of the nose. INTERNAL NOSE: Packs noted on both sides. Cannot examined inside of the nose. No bleeding. ORAL CAVITY AND OROPHARYNX: No bloody postnasal drip. No masses. No lesions. No erythema. No edema. LIPS AND GUMS: No masses. No lesions. No erythema. No edema. NECK: Supple. THYROID: No thyromegaly. No goiter. LYMPH NODES: No lymphadenopathy of the neck. ASSESSMENT: 1. Nasal fracture. 2. Epistaxis. PLAN: Continue nasal packing antibiotic. Nasal packs will be removed tomorrow. Bhavin Padilla MD
[2017-05-31 19:09] LABS: SQUAMOUS EPITHIAL < 1 /hpf (0-5); URINE BACTERIA RARE (<OCC); URINE BILIRUBIN NEGATIVE (NEGATIVE); URINE BLOOD NEGATIVE (NEGATIVE); URINE CLARITY CLEAR (Clear); URINE COLOR YELLOW (YELLOW); URINE GLUCOSE (UA) NEG (Normal); URINE LEUKOCYTE ESTERASE NEG Leu/uL (Negative); URINE NITRATE NEGATIVE (NEGATIVE); URINE PROTEIN NEGATIVE (NEGATIVE); URINE UROBILINOGEN 0.2-1.0 mg/dL (0.2-1.0)
[2017-05-31 19:29] LABS: BARBITURATES, UR NEGATIVE (NEGATIVE); BENZODIAZEPINES, UR NEGATIVE (NEGATIVE); OPIATES, UR NEGATIVE (NEGATIVE); PHENCYCLIDINE, UR NEGATIVE (NEGATIVE)
[2017-05-31] MEDS: Levothyroxine 25 MCG TAB PO SCH (22:28)
--- NOTE | 2017-06-01 08:16 | CP.PCM.PN ---
Subjective - Date & Time of Evaluation Date of Evaluation: 06/01/17 - Subjective Subjective: P5t is afebrile in no distress. She slept al night. No fresh bleeding seen. Will give her 1 more dose of granix. CBC is stable, except for WBC which is low. I ordered granix to get her ANC above 100. She will be seen by ENT today, and packing removed. Will follow her in the infusion center on . Objective - Vital Signs/Intake and Output Vital Signs (last 24 hours): Temp Pulse Resp BP Pulse Ox 98.5 F 92 H 20 134/73 97 06/01/17 08:10 06/01/17 08:10 06/01/17 08:10 06/01/17 08:10 06/01/17 08:10 - Medications Medications: Current Medications Acetaminophen (Tylenol 325mg Tab) 650 mg PO Q6 PRN PRN Reason: Pain, Mild (1-3) Acetaminophen (Tylenol 325mg Tab) 650 mg PO Q6 PRN PRN Reason: Fever >100.4 F Amoxicillin/Clavulanate Potassium (Augmentin 875 Mg-125 Mg Tab) 1 tab PO Q12 [facility] PRN Reason: Protocol Last Admin: 05/31/17 23:27 Dose: 1 tab Atorvastatin Calcium (Lipitor) 10 mg PO HS [facility] Last Admin: 05/31/17 22:28 Dose: 10 mg Cholecalciferol (Vitamin D) 1,000 intlu PO DAILY [facility] Last Admin: 05/31/17 12:35 Dose: 1,000 intlu Dextrose (Dextrose 50% Inj) 0 ml IV STAT PRN; Protocol PRN Reason: Hypoglycemia Protocol Dextrose (Glutose 15) 0 gm PO ONCE PRN; Protocol PRN Reason: Hypoglycemia Protocol Furosemide (Lasix) 20 mg PO BID [facility] Last Admin: 05/31/17 17:25 Dose: 20 mg Glipizide (Glucotrol) 5 mg PO ACB [facility] Last Admin: 05/31/17 11:09 Dose: 5 mg Glucagon (Glucagen Diagnostic Kit) 0 mg IM STAT PRN; Protocol PRN Reason: Hypoglycemia Protocol Insulin Human Lispro (Humalog) 0 units SC ACHS [facility] PRN Reason: Protocol Last Admin: 05/31/17 22:28 Dose: Not Given Levothyroxine Sodium (Synthroid) 25 mcg PO HS [facility] Last Admin: 05/31/17 22:28 Dose: 25 mcg Metoprolol Tartrate (Lopressor) 100 mg PO BID [facility] Last Admin: 05/31/17 17:25 Dose: 100 mg Potassium Chloride (K-Dur 20 Meq Er Tab) 20 meq PO DAILY [facility] Last Admin: 05/31/17 09:33 Dose: 20 meq Sitagliptin Phosphate (Januvia) 100 mg PO DAILY [facility] Last Admin: 05/31/17 09:32 Dose: 100 mg - Labs Labs: 05/31/17 05:40 05/31/17 05:40 PT 12.2 Seconds (9.8-13.1) 05/31/17 11:19 INR 1.1 (0.9-1.2) 05/31/17 11:19 APTT 39.6 Seconds (25.6-37.1) H D 05/31/17 11:19
[2017-06-01] MEDS: Potassium Chloride 20 mEq ER Tab PO SCH (09:00)
[2017-06-01] MEDS: Amoxicillin-Clav 875-125 mg Tab PO SCH ×2 (09:00→21:59)
[2017-06-01] MEDS: Cholecalciferol 1,000 INTLU TAB PO SCH (09:00)
[2017-06-01] MEDS: Insulin Lispro (humaLOG) 100 Units/ml Inj SC SCH ×4 (09:01→22:00)
--- NOTE | 2017-06-01 09:38 | CP.PCM.CON ---
History of Present Illness - History of Present Illness History of Present Illness: This 77-year- old female has been under my care since 1993 when I saw her for hypertension. Patient has a strong family history of hypertension and diabetes. The patient eventually the blood diabetes as well and in 2001 required coronary bypass graft surgery because of repeated anginal episodes and the finding off left main coronary artery stenosis patient subsequently required multiple coronary stents in 2007 followed by a repeat study and stenting and angioplasty in 2009. Her left internal mammary artery to LAD and the saphenous vein graft to circumflex where open. Patient has subsequently required knee replacement which she successfully underwent number of years back. The patient developed myelodysplastic syndrome in mid 2016 and has subsequently been on chemotherapy. The patient developed atrial fibrillation and developed congestive cardiac failure as a consequence. She has been on metoprolol and furosemide for management and briefly required an admission of digoxin to control her heart rate and congestive cardiac failure. Eventually she developed bradycardia and severe anorexia requiring discontinuation of digoxin. The patient has been placed on Xarelto because of chronic atrial fibrillation. She is also on aspirin because of severe coronary artery disease. The patient was brought to the emergency room after an accidental fall at home with severe facial injuries. Prior to the fall her blood counts had stabilized after multiple rounds of chemotherapy which resulted in depressed bone marrow area from hemodynamic point of few her heart rate was well controlled and the patient was fairly free of volume overload, in the form of pedal edema or orthopnea. Because of her excessive weight and lung related issues the patient continues to experience significant effort intolerance. The patient has been using a broncho-dilator for more than 40 years. Physical examination shows a elderly female alert of a core end and afebrile with largely, otic areas all over her face. There is bilateral nasal packing in place. Her heart rate was 110 bpm irregularly irregular with a blood pressure of 134/70 mmHg. Her jugular venous pressure was not elevated and there was no pedal edema but the patient had been mostly bedbound for more than 24 hours after being hospitalized. Her extremities were warm and the nailbeds were pink. There was no central or peripheral cyanosis. Her respiratory rate was 16-18 breaths per minute. The apex was not palpable. Scar of sternotomy was evident. The first and second heart sounds were normal. There were no rales. There was no gallop. Abdomen was soft. Her electric cart a gram showed atrial fibrillation at moderate heart rates with poor R-wave progression from V2 to V3. There were no murray Q waves detected on electro-cardiogram. An echocardiogram from October last year showed borderline left ventricular contractility with dilated left and right atria. Her pulmonary artery systolic pressure was 42 mmHg. Her lab data was noted. Impression: Accidental fall with severe facial injuries. Epistaxis secondary to nasal injuries. Stable coronary artery disease with status post coronary bypass graft surgery and multiple coronary stents. Congestive cardiac failure which is left ventricular and systolic and chronic. Atrial fibrillation, hypertension, diabetes mellitus, exogenous obesity, hypothyroidism, bronchospastic disease. Myelodysplastic syndrome. The patient is stable at this juncture, and cardiovascular point of few. I have reviewed her medications and labs. She may be allowed to return home when okayed by her admitting physician and ENT surgeon. Past Patient History - Past Medical History & Family History Past Medical History?: Yes - Past Social History Smoking Status: Heavy Smoker > 10 Cigarettes Daily - CARDIAC Hx Hypercholesterolemia: Yes Hx Hypertension: Yes - PULMONARY Hx Chronic Obstructive Pulmonary Disease (COPD): Yes Hx Pneumonia: Yes - HEENT Other/Comment: Right ear -deaf - RENAL Hx Chronic Kidney Disease: No - ENDOCRINE/METABOLIC Hx Hypothyroidism: Yes - HEMATOLOGICAL/ONCOLOGICAL Hx Anemia: Yes Hx Human Immunodeficiency Virus (HIV): No - INTEGUMENTARY Hx Dermatological Problems: No - MUSCULOSKELETAL/RHEUMATOLOGICAL Hx Back Pain: Yes (epidural) Hx Falls: No - GASTROINTESTINAL Hx Gastritis: Yes - GENITOURINARY/GYNECOLOGICAL Hx Genitourinary Disorders: No - PSYCHIATRIC Hx Emotional Abuse: No Hx Physical Abuse: No Hx Substance Use: No - SURGICAL HISTORY Hx Coronary Artery Bypass Graft: Yes Hx Coronary Stent: Yes - ANESTHESIA Hx Anesthesia: Yes Hx Anesthesia Reactions: No Hx Malignant Hyperthermia: No Meds Allergies/Adverse Reactions: Allergies Allergy/AdvReac Type Severity Reaction Status Date / Time No Known Allergies Allergy Verified 05/30/17 11:54 - Medications Medications: Current Medications Acetaminophen (Tylenol 325mg Tab) 650 mg PO Q6 PRN PRN Reason: Pain, Mild (1-3) Acetaminophen (Tylenol 325mg Tab) 650 mg PO Q6 PRN PRN Reason: Fever >100.4 F Amoxicillin/Clavulanate Potassium (Augmentin 875 Mg-125 Mg Tab) 1 tab PO Q12 [facility] PRN Reason: Protocol Last Admin: 06/01/17 09:00 Dose: 1 tab Atorvastatin Calcium (Lipitor) 10 mg PO HS [facility] Last Admin: 05/31/17 22:28 Dose: 10 mg Cholecalciferol (Vitamin D) 1,000 intlu PO DAILY [facility] Last Admin: 06/01/17 09:00 Dose: 1,000 intlu Dextrose (Dextrose 50% Inj) 0 ml IV STAT PRN; Protocol PRN Reason: Hypoglycemia Protocol Dextrose (Glutose 15) 0 gm PO ONCE PRN; Protocol PRN Reason: Hypoglycemia Protocol Furosemide (Lasix) 20 mg PO BID [facility] Last Admin: 06/01/17 09:00 Dose: 20 mg Glipizide (Glucotrol) 5 mg PO ACB [facility] Last Admin: 06/01/17 09:03 Dose: 5 mg Glucagon (Glucagen Diagnostic Kit) 0 mg IM STAT PRN; Protocol PRN Reason: Hypoglycemia Protocol Insulin Human Lispro (Humalog) 0 units SC ACHS [facility] PRN Reason: Protocol Last Admin: 06/01/17 09:01 Dose: Not Given Levothyroxine Sodium (Synthroid) 25 mcg PO HS [facility] Last Admin: 05/31/17 22:28 Dose: 25 mcg Metoprolol Tartrate (Lopressor) 100 mg PO BID [facility] Last Admin: 06/01/17 08:59 Dose: 100 mg Potassium Chloride (K-Dur 20 Meq Er Tab) 20 meq PO DAILY [facility] Last Admin: 06/01/17 09:00 Dose: 20 meq Sitagliptin Phosphate (Januvia) 100 mg PO DAILY [facility] Last Admin: 06/01/17 08:59 Dose: 100 mg Results - Vital Signs Recent Vital Signs: Last Vital Signs Temp 98.5 F 06/01/17 08:10 Pulse 92 H 06/01/17 08:59 Resp 20 06/01/17 08:10 BP 134/73 06/01/17 09:00 Pulse Ox 97 06/01/17 08:10 - Labs Result Diagrams: 05/31/17 05:40 05/31/17 05:40 Labs: Laboratory Results - last 24 hr 05/31/17 05/31/17 05/31/17 05:40 05:40 11:01 PT INR APTT POC Glucose (mg/dL) 152 H Hemoglobin A1c 5.8 Free T3 pg/mL 2.69 L Urine Color Urine Clarity Urine pH Ur Specific [place] Urine Protein Urine Glucose (UA) Urine Ketones Urine Blood Urine Nitrate Urine Bilirubin Urine Urobilinogen Ur Leukocyte Esterase Urine RBC (Auto) Urine Microscopic WBC Ur Squamous Epith Cells Urine Bacteria Urine Opiates Screen Urine Methadone Screen Ur Barbiturates Screen Ur Phencyclidine Scrn Ur Amphetamines Screen U Benzodiazepines Scrn U Oth Cocaine Metabols U Cannabinoids Screen 05/31/17 05/31/17 05/31/17 11:19 15:39 18:59 PT 12.2 INR 1.1 APTT 39.6 H D POC Glucose (mg/dL) 128 H Hemoglobin A1c Free T3 pg/mL Urine Color Yellow Urine Clarity Clear Urine pH 7.0 Ur Specific [place] 1.009 Urine Protein Negative Urine Glucose (UA) Neg Urine Ketones Negative Urine Blood Negative Urine Nitrate Negative Urine Bilirubin Negative Urine Urobilinogen 0.2-1.0 Ur Leukocyte Esterase Neg Urine RBC (Auto) 2 Urine Microscopic WBC 6 H Ur Squamous Epith Cells < 1 Urine Bacteria Rare Urine Opiates Screen Urine Methadone Screen Ur Barbiturates Screen Ur Phencyclidine Scrn Ur Amphetamines Screen U Benzodiazepines Scrn U Oth Cocaine Metabols U Cannabinoids Screen 05/31/17 05/31/17 06/01/17 18:59 21:17 05:38 PT INR APTT POC Glucose (mg/dL) 114 H 115 H Hemoglobin A1c Free T3 pg/mL Urine Color Urine Clarity Urine pH Ur Specific [place] Urine Protein Urine Glucose (UA) Urine Ketones Urine Blood Urine Nitrate Urine Bilirubin Urine Urobilinogen Ur Leukocyte Esterase Urine RBC (Auto) Urine Microscopic WBC Ur Squamous Epith Cells Urine Bacteria Urine Opiates Screen Negative Urine Methadone Screen Negative Ur Barbiturates Screen Negative Ur Phencyclidine Scrn Negative Ur Amphetamines Screen Negative U Benzodiazepines Scrn Negative U Oth Cocaine Metabols Negative U Cannabinoids Screen Negative
--- NOTE | 2017-06-01 10:31 | CP.PCM.PN ---
Subjective - Date & Time of Evaluation Date of Evaluation: 06/01/17 Time of Evaluation: 10:28 - Subjective Subjective: see below Objective - Vital Signs/Intake and Output Vital Signs (last 24 hours): Temp Pulse Resp BP Pulse Ox 98.5 F 92 H 20 134/73 97 06/01/17 08:10 06/01/17 08:59 06/01/17 08:10 06/01/17 09:00 06/01/17 08:10 - Medications Medications: Current Medications Acetaminophen (Tylenol 325mg Tab) 650 mg PO Q6 PRN PRN Reason: Pain, Mild (1-3) Acetaminophen (Tylenol 325mg Tab) 650 mg PO Q6 PRN PRN Reason: Fever >100.4 F Amoxicillin/Clavulanate Potassium (Augmentin 875 Mg-125 Mg Tab) 1 tab PO Q12 [facility] PRN Reason: Protocol Last Admin: 06/01/17 09:00 Dose: 1 tab Atorvastatin Calcium (Lipitor) 10 mg PO HS [facility] Last Admin: 05/31/17 22:28 Dose: 10 mg Cholecalciferol (Vitamin D) 1,000 intlu PO DAILY [facility] Last Admin: 06/01/17 09:00 Dose: 1,000 intlu Dextrose (Dextrose 50% Inj) 0 ml IV STAT PRN; Protocol PRN Reason: Hypoglycemia Protocol Dextrose (Glutose 15) 0 gm PO ONCE PRN; Protocol PRN Reason: Hypoglycemia Protocol Furosemide (Lasix) 20 mg PO BID [facility] Last Admin: 06/01/17 09:00 Dose: 20 mg Glucagon (Glucagen Diagnostic Kit) 0 mg IM STAT PRN; Protocol PRN Reason: Hypoglycemia Protocol Insulin Human Lispro (Humalog) 0 units SC [facility] PRN Reason: Protocol Last Admin: 06/01/17 09:01 Dose: Not Given Levothyroxine Sodium (Synthroid) 25 mcg PO HS [facility] Last Admin: 05/31/17 22:28 Dose: 25 mcg Metoprolol Tartrate (Lopressor) 100 mg PO BID [facility] Last Admin: 06/01/17 08:59 Dose: 100 mg Potassium Chloride (K-Dur 20 Meq Er Tab) 20 meq PO DAILY [facility] Last Admin: 06/01/17 09:00 Dose: 20 meq Sitagliptin Phosphate (Januvia) 100 mg PO DAILY [facility] Last Admin: 06/01/17 08:59 Dose: 100 mg - Labs Labs: 05/31/17 05:40 05/31/17 05:40 PT 12.2 Seconds (9.8-13.1) 05/31/17 11:19 INR 1.1 (0.9-1.2) 05/31/17 11:19 APTT 39.6 Seconds (25.6-37.1) H D 05/31/17 11:19 Assessment and Plan - Assessment and Plan (Free Text) Assessment: 77 y/o female s/p fall with nasal bone fx and b/l epistaxis. She was seen by Dr. Padilla yesterday; he is away until Monday and i am covering. She is on Xarelto for Afib; it is on hold since admission. She was packed Monday. No bleeding since admission. Exam patient resting comfortable; ecchymosis b/l infraorbital area and nasal dorsum ( also with swelling) b/l Rhinorockets in place; no bleeding some air removed from both packs oc/op clear, no blood in oropharynx Impression epistaxis nasal fx Recommend Xarelto on hold continue abx while pack in place i will remove packs tomorrow afternoon, after which patient should be able to go home epistaxis precautions d/w patient HOB elevation
--- NOTE | 2017-06-01 10:48 | CARD ---
APPROVED REPORT EKG Measurement Heart [id number] <Conclusion> Atrial fibrillation with rapid ventricular response Nonspecific ST abnormality Abnormal ECG
[2017-06-01 11:12] LABS: HEMOGLOBIN 10.9 g/dL (12.0-16.0); MEAN CORPUSCULAR HEMOGLOBIN 26.1 pg (27.0-31.0); MEAN CORPUSCULAR HGB CONC 32.6 g/dL (33.0-37.0); RBC 4.19 Mil/uL (3.80-5.20); RED CELL DISTRIBUTION WIDTH 17.1 % (11.5-14.5); WHITE BLOOD COUNT 3.1 K/uL (4.8-10.8)
--- NOTE | 2017-06-01 12:05 | CP.PCM.PN ---
Subjective - Date & Time of Evaluation Date of Evaluation: 06/01/17 Time of Evaluation: 07:00 - Subjective Subjective: The patient was seen and examined this morning bedside. There are no acute events overnight, NAD. The patient is laying in bed comfortably. The patient denies facial pain and has not requested pain medication. The patient has no other complaints. The patient denies headaches, dizziness, chest pain, SOB, abdominal pain, nausea, vomiting, diarrhea, dysuria, or fever. Objective - Vital Signs/Intake and Output Vital Signs (last 24 hours): Temp Pulse Resp BP Pulse Ox 98.5 F 92 H 20 134/73 97 06/01/17 08:10 06/01/17 08:59 06/01/17 08:10 06/01/17 09:00 06/01/17 08:10 - Medications Medications: Current Medications Acetaminophen (Tylenol 325mg Tab) 650 mg PO Q6 PRN PRN Reason: Pain, Mild (1-3) Acetaminophen (Tylenol 325mg Tab) 650 mg PO Q6 PRN PRN Reason: Fever >100.4 F Amoxicillin/Clavulanate Potassium (Augmentin 875 Mg-125 Mg Tab) 1 tab PO Q12 [facility] PRN Reason: Protocol Last Admin: 06/01/17 09:00 Dose: 1 tab Atorvastatin Calcium (Lipitor) 10 mg PO HS [facility] Last Admin: 05/31/17 22:28 Dose: 10 mg Cholecalciferol (Vitamin D) 1,000 intlu PO DAILY [facility] Last Admin: 06/01/17 09:00 Dose: 1,000 intlu Dextrose (Dextrose 50% Inj) 0 ml IV STAT PRN; Protocol PRN Reason: Hypoglycemia Protocol Dextrose (Glutose 15) 0 gm PO ONCE PRN; Protocol PRN Reason: Hypoglycemia Protocol Furosemide (Lasix) 20 mg PO BID [facility] Last Admin: 06/01/17 09:00 Dose: 20 mg Glucagon (Glucagen Diagnostic Kit) 0 mg IM STAT PRN; Protocol PRN Reason: Hypoglycemia Protocol Insulin Human Lispro (Humalog) 0 units SC ACHS [facility] PRN Reason: Protocol Last Admin: 06/01/17 09:01 Dose: Not Given Levothyroxine Sodium (Synthroid) 25 mcg PO HS [facility] Last Admin: 05/31/17 22:28 Dose: 25 mcg Metoprolol Tartrate (Lopressor) 100 mg PO BID [facility] Last Admin: 06/01/17 08:59 Dose: 100 mg Potassium Chloride (K-Dur 20 Meq Er Tab) 20 meq PO DAILY [facility] Last Admin: 06/01/17 09:00 Dose: 20 meq Sitagliptin Phosphate (Januvia) 100 mg PO DAILY [facility] Last Admin: 06/01/17 08:59 Dose: 100 mg - Labs Labs: 06/01/17 10:58 05/31/17 05:40 PT 12.2 Seconds (9.8-13.1) 05/31/17 11:19 INR 1.1 (0.9-1.2) 05/31/17 11:19 APTT 39.6 Seconds (25.6-37.1) H D 05/31/17 11:19 - Constitutional Appears: No Acute Distress - Head Exam Head Exam: ATRAUMATIC, NORMAL INSPECTION, NORMOCEPHALIC - Eye Exam Eye Exam: Normal appearance Additional comments: bilateral periorbital contusion, no miller sign - ENT Exam ENT Exam: Mucous Membranes Moist Additional comments: bilateral nasal bone fracture, bilateral nares packed, tender - Neck Exam Neck Exam: Full ROM. absent: Tenderness - Respiratory Exam Respiratory Exam: Clear to Ausculation Bilateral, NORMAL BREATHING PATTERN. absent: Decreased Breath Sounds, Rales, Rhonchi, Wheezes, Respiratory Distress - Cardiovascular Exam Cardiovascular Exam: Irregular Rhythm. absent: Murmur - GI/Abdominal Exam GI & Abdominal Exam: Soft, Normal Bowel Sounds. absent: Distended, Tenderness - Extremities Exam Extremities Exam: Normal Inspection. absent: Calf Tenderness, Pedal Edema, Tenderness - Neurological Exam Neurological Exam: Alert, Awake, Normal Gait, Oriented x3 - Skin Skin Exam: Dry, Intact, Normal Color, Warm Assessment and Plan - Assessment and Plan (Free Text) Assessment: 76 y/o woman w/ pmh of MDS currently on chemotherapy, Anemia, Atrial Fibrillation, CAD(CABG triple bypass), COPD, Diabetes, Gastritis, HTN, Hypercholesterolemia, and Hypothyroidism admitted for facial trauma and traumatic epistaxis. Plan: Facial Trauma with secondary traumatic epistaxis - 2/2 fall - Orbit/Facial CT: B/l displaced nasal bone fractures with choanal and nasopharyngeal hemorrhage. - B/L nasal balloon (rhinorockets) packing. No active bleeding - Head CT: no intracranial hemorrhage - Cervical Spine CT: No acute fracture. Multilevel degenerative changes - ENT consult appreciated - Seen by ENT this morning: some air removed from balloon packing, nasal balloon packing will be removed tomorrow - Xarelto to be held at this time - denies pain and has not requested pain medication Epistaxis traumatic bilateral - secondary to facial trauma - Orbit/Facial CT: B/l displaced nasal bone fractures with choanal and nasopharyngeal hemorrhage. - B/L nasal balloon packing - ENT consult appreciated: will come to remove packing - prophylactic Abx treatment Augmentin 875mg BID: Immunosuppressed patient with MDS - s/p Thrombin 5000 units given in ED - Head elevation, aspiration precaution. Pancytopenia - secondary to MDS - on chemotherapy treatment by portacath - Hem-Onc consulted, Dr Ellen Nunes, recommendations appreciated - cbc: 3.1>10.9/33.5<134 - f/u CBC Atrial Fibrillation - Hold Xarelto - Agricultural Services Director consult, consulted, Dr. Jacobo Nunes - c/w metoprolol CAD - hx of CABG triple bypass - c/w metoprolol - hold aspirin for active bleeding DM - c/w home medications - diabetic diet - SSI - HgbA1c: 5.8 Hypothyroidism - c/w synthroid - Last TSH 14.7 T3 0.9 - f/u TSH, ft4, ft3 HTN - c/w Lopressor - c/w Lasix HLD - c/w Lipitor 10 mg daily CKD stage 4 - BUN/CR 21/1.0 GFR: 54 Prophylactic measures - DVT: SCD for now - Hold xarelto, hold aspirin.
[2017-06-01] MEDS: Levothyroxine 25 MCG TAB PO SCH (21:16)
[2017-06-02 06:40] LABS: HEMOGLOBIN 10.6 g/dL (12.0-16.0); MEAN CELL VOLUME 80.7 fl (81.0-99.0); MEAN CORPUSCULAR HEMOGLOBIN 25.8 pg (27.0-31.0); RBC 4.1 Mil/uL (3.80-5.20); RED CELL DISTRIBUTION WIDTH 16.2 % (11.5-14.5); WHITE BLOOD COUNT 3.4 K/uL (4.8-10.8)
[2017-06-02 06:55] LABS: BLOOD UREA NITROGEN 14 mg/dl (7-17); CALCIUM 9.1 mg/dL (8.4-10.2); GFR AFRICAN-AMERICAN > 60; GFR NON-AFRICAN AMERICAN > 60
[2017-06-02] MEDS: Insulin Lispro (humaLOG) 100 Units/ml Inj SC SCH ×2 (07:24→12:39)
[2017-06-02 08:24] VITALS: RESP 20; TEMP 98; O2SAT 96
--- NOTE | 2017-06-02 08:43 | CP.PCM.PN ---
Subjective - Date & Time of Evaluation Date of Evaluation: 06/02/17 Time of Evaluation: 08:40 - Subjective Subjective: Pt still looks bruised but she has no complaints of fresh bleeding, discomfort or pain. Her CBC has been stable except for the WBC which is 3.4, with a ANC of 1004. Will give one more dose of granix before pt goes home. Objective - Vital Signs/Intake and Output Vital Signs (last 24 hours): Temp Pulse Resp BP Pulse Ox 98 F 80 20 120/78 96 06/02/17 08:24 06/02/17 08:24 06/02/17 08:24 06/02/17 08:24 06/02/17 08:24 - Medications Medications: Current Medications Acetaminophen (Tylenol 325mg Tab) 650 mg PO Q6 PRN PRN Reason: Pain, Mild (1-3) Acetaminophen (Tylenol 325mg Tab) 650 mg PO Q6 PRN PRN Reason: Fever >100.4 F Amoxicillin/Clavulanate Potassium (Augmentin 875 Mg-125 Mg Tab) 1 tab PO Q12 [facility] PRN Reason: Protocol Last Admin: 06/01/17 21:59 Dose: 1 tab Atorvastatin Calcium (Lipitor) 10 mg PO HS [facility] Last Admin: 06/01/17 21:16 Dose: 10 mg Cholecalciferol (Vitamin D) 1,000 intlu PO DAILY [facility] Last Admin: 06/01/17 09:00 Dose: 1,000 intlu Dextrose (Dextrose 50% Inj) 0 ml IV STAT PRN; Protocol PRN Reason: Hypoglycemia Protocol Dextrose (Glutose 15) 0 gm PO ONCE PRN; Protocol PRN Reason: Hypoglycemia Protocol Furosemide (Lasix) 20 mg PO DAILY [facility] Glucagon (Glucagen Diagnostic Kit) 0 mg IM STAT PRN; Protocol PRN Reason: Hypoglycemia Protocol Insulin Human Lispro (Humalog) 0 units SC ACHS [facility] PRN Reason: Protocol Last Admin: 06/02/17 07:24 Dose: Not Given Levothyroxine Sodium (Synthroid) 25 mcg PO HS [facility] Last Admin: 06/01/17 21:16 Dose: 25 mcg Metoprolol Tartrate (Lopressor) 100 mg PO BID [facility] Last Admin: 06/01/17 16:33 Dose: 100 mg Potassium Chloride (K-Dur 20 Meq Er Tab) 20 meq PO DAILY [facility] Last Admin: 06/01/17 09:00 Dose: 20 meq Sitagliptin Phosphate (Januvia) 100 mg PO DAILY [facility] Last Admin: 06/01/17 08:59 Dose: 100 mg - Labs Labs: 06/02/17 06:00 06/02/17 06:00 PT 12.2 Seconds (9.8-13.1) 05/31/17 11:19 INR 1.1 (0.9-1.2) 05/31/17 11:19 APTT 39.6 Seconds (25.6-37.1) H D 05/31/17 11:19
[2017-06-02] MEDS: Potassium Chloride 20 mEq ER Tab PO SCH (10:17)
[2017-06-02] MEDS: Amoxicillin-Clav 875-125 mg Tab PO SCH (10:17)
[2017-06-02] MEDS: Cholecalciferol 1,000 INTLU TAB PO SCH (10:18)
[2017-06-02 10:19] VITALS: BP 125/71; PULSE 100
--- NOTE | 2017-06-02 14:32 | CP.PCM.PN ---
Subjective - Date & Time of Evaluation Date of Evaluation: 06/02/17 Time of Evaluation: 14:31 - Subjective Subjective: see below Objective - Vital Signs/Intake and Output Vital Signs (last 24 hours): Temp Pulse Resp BP Pulse Ox 98 F 100 H 20 125/71 96 06/02/17 08:24 06/02/17 10:18 06/02/17 08:24 06/02/17 10:18 06/02/17 08:24 - Medications Medications: Current Medications Acetaminophen (Tylenol 325mg Tab) 650 mg PO Q6 PRN PRN Reason: Pain, Mild (1-3) Acetaminophen (Tylenol 325mg Tab) 650 mg PO Q6 PRN PRN Reason: Fever >100.4 F Amoxicillin/Clavulanate Potassium (Augmentin 875 Mg-125 Mg Tab) 1 tab PO Q12 [facility] PRN Reason: Protocol Last Admin: 06/02/17 10:17 Dose: 1 tab Atorvastatin Calcium (Lipitor) 10 mg PO HS [facility] Last Admin: 06/01/17 21:16 Dose: 10 mg Cholecalciferol (Vitamin D) 1,000 intlu PO DAILY [facility] Last Admin: 06/02/17 10:18 Dose: 1,000 intlu Dextrose (Dextrose 50% Inj) 0 ml IV STAT PRN; Protocol PRN Reason: Hypoglycemia Protocol Dextrose (Glutose 15) 0 gm PO ONCE PRN; Protocol PRN Reason: Hypoglycemia Protocol Furosemide (Lasix) 20 mg PO DAILY [facility] Last Admin: 06/02/17 10:18 Dose: 20 mg Glucagon (Glucagen Diagnostic Kit) 0 mg IM STAT PRN; Protocol PRN Reason: Hypoglycemia Protocol Insulin Human Lispro (Humalog) 0 units SC [facility] PRN Reason: Protocol Last Admin: 06/02/17 12:39 Dose: 1 unit Levothyroxine Sodium (Synthroid) 25 mcg PO HS [facility] Last Admin: 06/01/17 21:16 Dose: 25 mcg Metoprolol Tartrate (Lopressor) 100 mg PO BID [facility] Last Admin: 06/02/17 10:18 Dose: 100 mg Potassium Chloride (K-Dur 20 Meq Er Tab) 20 meq PO DAILY [facility] Last Admin: 06/02/17 10:17 Dose: 20 meq Sitagliptin Phosphate (Januvia) 100 mg PO DAILY [facility] Last Admin: 06/02/17 10:17 Dose: 100 mg - Labs Labs: 06/02/17 06:00 06/02/17 06:00 PT 12.2 Seconds (9.8-13.1) 05/31/17 11:19 INR 1.1 (0.9-1.2) 05/31/17 11:19 APTT 39.6 Seconds (25.6-37.1) H D 05/31/17 11:19 Assessment and Plan - Assessment and Plan (Free Text) Assessment: no bleeding exam awake, alert, comfortable packs removed uneventfully Procedure: nasal endoscopy CPT 29505. indication: epistaxis, nasal fracture The procedure was explained to the patient, who agreed to proceed with the procedure. With the patient in the sitting position, the nasal cavities were sprayed with topical Lidocaine 4% anesthetic. After waiting an appropriate amount of time for the anesthetic to take effect, a 4mm endoscope was introduced independently into the left and right nasal cavities and advanced back to the nasopharynx on each side. Three passes were carried out on the left and right sides, visualizing: the floor of the nasal cavity, inferior turbinate and inferior meatus; the middle turbinate and middle meatus; and the sphenoethmoid recess and nasopharynx. The scope was then removed. There were no complications. The patient tolerated the procedure well. Findings: no mucopus in either nasal cavity, middle meatus or sphenoethmoid recess. no polyps. no significant edema. the nasopharynx is clear, and the Eustachian tube orifices are patent. There are minor abrasions on the anterior septum b/l. there is no active bleeding. Impression epistaxis nasal fx epistaxis precautions again reviewed with patient Afrin x3 days only amoxicillin for 3 more days cool compresses to the face recommend she f/u with me or Dr. Padilla next week if, after facial swelling resolves, she notices a nasal deformity so that we can discuss option of possible intervention hold xarelto 7d total if ok with Dr. Nunes (she would resume Monday night) plan d/w housestaff at bedside
--- NOTE | 2017-06-02 16:03 | CP.PCM.DIS ---
Provider - Provider Date of Admission: 05/31/17 13:51 Attending physician: April Panda MD Time Spent in preparation of Discharge (in minutes): 15 Diagnosis - Discharge Diagnosis (1) Epistaxis Status: Acute (2) Nasal bone fracture Status: Acute Hospital Course - Lab Results Lab Results: Most Recent Lab Values WBC 3.4 K/uL (4.8-10.8) L 06/02/17 06:00 RBC 4.10 Mil/uL (3.80-5.20) 06/02/17 06:00 Hgb 10.6 g/dL (12.0-16.0) L 06/02/17 06:00 Hct 33.1 % (34.0-47.0) L 06/02/17 06:00 MCV 80.7 fl (81.0-99.0) L 06/02/17 06:00 MCH 25.8 pg (27.0-31.0) L 06/02/17 06:00 MCHC 32.0 g/dL (33.0-37.0) L 06/02/17 06:00 RDW 16.2 % (11.5-14.5) H 06/02/17 06:00 Plt Count 130 K/uL (130-400) 06/02/17 06:00 MPV 8.7 fl (7.2-11.7) 05/31/17 05:40 Neut % (Auto) 32.7 % (50.0-75.0) L 05/31/17 05:40 Lymph % (Auto) 40.1 % (20.0-40.0) H 05/31/17 05:40 [place] % (Auto) 18.4 % (0.0-10.0) H 05/31/17 05:40 Eos % (Auto) 6.4 % (0.0-4.0) H 05/31/17 05:40 Baso % (Auto) 2.4 % (0.0-2.0) H 05/31/17 05:40 Neut # (Auto) 0.5 K/uL (1.8-7.0) L 05/31/17 05:40 Lymph # (Auto) 0.6 K/uL (1.0-4.3) L 05/31/17 05:40 [place] # (Auto) 0.3 K/uL (0.0-0.8) 05/31/17 05:40 Eos # (Auto) 0.1 K/uL (0.0-0.7) 05/31/17 05:40 Baso # (Auto) 0.0 K/uL (0.0-0.2) 05/31/17 05:40 PT 12.2 Seconds (9.8-13.1) 05/31/17 11:19 INR 1.1 (0.9-1.2) 05/31/17 11:19 APTT 39.6 Seconds (25.6-37.1) H D 05/31/17 11:19 Sodium 131 mmol/l (132-148) L 06/02/17 06:00 Potassium 3.7 MMOL/L (3.6-5.0) 06/02/17 06:00 Chloride 93 mmol/L (98-107) L 06/02/17 06:00 Carbon Dioxide 27 mmol/L (22-30) 06/02/17 06:00 Anion Gap 15 (10-20) 06/02/17 06:00 BUN 14 mg/dl (7-17) 06/02/17 06:00 Creatinine 0.9 mg/dl (0.7-1.2) 06/02/17 06:00 Est GFR ( Amer) > 60 06/02/17 06:00 Est GFR (Non-Af Amer) > 60 06/02/17 06:00 POC Glucose (mg/dL) 182 mg/dL (65-110) H 06/02/17 10:52 Random Glucose 107 mg/dL (65-105) H 06/02/17 06:00 Hemoglobin A1c 5.8 % (4.2-6.5) 05/31/17 05:40 Calcium 9.1 mg/dL (8.4-10.2) 06/02/17 06:00 Total Bilirubin 1.1 mg/dl (0.2-1.3) 05/31/17 05:40 AST 13 U/L (14-36) L D 05/31/17 05:40 ALT 31 U/L (9-52) 05/31/17 05:40 Alkaline Phosphatase 60 U/L (38-126) 05/31/17 05:40 Total Protein 5.3 G/DL (6.3-8.2) L 05/31/17 05:40 Albumin 3.2 g/dL (3.5-5.0) L 05/31/17 05:40 Globulin 2.1 gm/dL (2.2-3.9) L 05/31/17 05:40 Albumin/Globulin Ratio 1.5 (1.0-2.1) 05/31/17 05:40 Free T4 1.22 ng/dL (0.78-2.19) 05/31/17 05:40 Free T3 pg/mL 2.69 pg/mL (2.77-5.27) L 05/31/17 05:40 TSH 3rd Generation 3.34 mIU/ML (0.46-4.68) 05/31/17 05:40 Urine Color Yellow (YELLOW) 05/31/17 18:59 Urine Clarity Clear (Clear) 05/31/17 18:59 Urine pH 7.0 (5.0-8.0) 05/31/17 18:59 Ur Specific [place] 1.009 (1.003-1.030) 05/31/17 18:59 Urine Protein Negative mg/dL (NEGATIVE) 05/31/17 18:59 Urine Glucose (UA) Neg mg/dL (Normal) 05/31/17 18:59 Urine Ketones Negative mg/dL (NEGATIVE) 05/31/17 18:59 Urine Blood Negative (NEGATIVE) 05/31/17 18:59 Urine Nitrate Negative (NEGATIVE) 05/31/17 18:59 Urine Bilirubin Negative (NEGATIVE) 05/31/17 18:59 Urine Urobilinogen 0.2-1.0 mg/dL (0.2-1.0) 05/31/17 18:59 Ur Leukocyte Esterase Neg Shi/uL (Negative) 05/31/17 18:59 Urine RBC (Auto) 2 /hpf (0-3) 05/31/17 18:59 Urine Microscopic WBC 6 /hpf (0-5) H 05/31/17 18:59 Ur Squamous Epith Cells < 1 /hpf (0-5) 05/31/17 18:59 Urine Bacteria Rare (<OCC) 05/31/17 18:59 Urine Opiates Screen Negative (NEGATIVE) 05/31/17 18:59 Urine Methadone Screen Negative (NEGATIVE) 05/31/17 18:59 Ur Barbiturates Screen Negative (NEGATIVE) 18 18:59 Ur Phencyclidine Scrn Negative (NEGATIVE) 18 18:59 Ur Amphetamines Screen Negative (NEGATIVE) 18 18:59 U Benzodiazepines Scrn Negative (NEGATIVE) 18 18:59 U Oth Cocaine Metabols Negative (NEGATIVE) 18 18:59 U Cannabinoids Screen Negative (NEGATIVE) 05/31/17 18:59 - Hospital Course Hospital Course: The patient is a 76 y/o woman w/ pmh of MDS currently on chemotherapy, Anemia, Atrial Fibrillation, CAD(CABG triple bypass), COPD, Diabetes, Gastritis, HTN, Hypercholesterolemia, and Hypothyroidism admitted for facial trauma and traumatic epistaxis. The patient on admission had elevated BP, tachycardic, CBC WNL, CMP showed elevated BUN, head CT showed no intracranial bleed, cervical spine CT showed no fracture, Facial CT showed bilateral nasal bone fracture. Patient is on xarelto for atrial fibrillation for which patient was given thrombin. The patient's nose was packed w/ nasal balloon packings bilaterally. The patient was also started on augmentin. The patient denies pain and was seen by PMD, heme/onc, and ENT. The nasal packing was removed and epistaxis resolved showing adequate hemostasis of the naso-pharynx. The patient has been seen, examined, and deemed medically fit for discharge home. The patient is to follow up w/ PMD Dr. Jacobo Nunes, heme/onc Dr. Ellen Nunes, and ENT Dr. Padilla or Dr. Nagel. The patient will be discharged w/ amoxicillin 500 mg PO TID for 3 days. Discharge Exam - Head Exam Head Exam: ATRAUMATIC, NORMAL INSPECTION, NORMOCEPHALIC - Eye Exam Eye Exam: Normal appearance Additional comments: bilateral periorbital contusion, no miller sign - ENT Exam ENT Exam: Mucous Membranes Moist - Neck Exam Neck exam: Full Rom - Respiratory Exam Respiratory Exam: Clear to PA & Lateral, UNREMARKABLE. absent: Decreased Breath Sounds, Rales, Rhonchi, Wheezes, Respiratory Distress - Cardiovascular Exam Cardiovascular Exam: REGULAR RHYTHM. absent: Tachycardia - GI/Abdominal Exam GI & Abdominal Exam: Normal Bowel Sounds, Soft. absent: Distended, Tenderness - Extremities Exam Extremities exam: normal inspection - Neurological Exam Neurological exam: Alert, Normal Gait, Oriented x3 - Skin Skin Exam: Dry, Intact, Normal Color, Warm Discharge Plan - Discharge Medications Prescriptions: Amoxicillin 500 mg PO TID 3 Days #9 tablet - Follow Up Plan Condition: STABLE Disposition: HOME/ ROUTINE Instructions: Preventing Falls, Nosebleeds (DC) Additional Instructions: hold Xarelto for [address] verify with Dr. Nunes to resume. Referrals: Russell Nunes MD [Staff Provider] - Bhavin Padilla MD [Staff Provider] - Eddie Nagel MD [Staff Provider] - Raul Nunes MD [Staff Provider] -
== END 2017-06-02 15:30 | disposition home or self-care (01) | DRG 155 ==
LOC: H.ER 11:48 → H.ERHOLD 16:28 → H.MEDSURG1 21:39 → OBSVTOIN 05-31 13:51
PROVIDERS: ADMIT Family Medicine Geriatric Medicine; ATTEND Family Medicine Geriatric Medicine
PROC: 2Y41X5Z Packing of Nasal Region using Packing Material (ICD-10-PCS; principal; 2017-05-31)
DX: S02.2XXA Fracture of nasal bones, initial encounter for closed fracture (principal); D61.818 Other pancytopenia; N18.4 Chronic kidney disease, stage 4 (severe); E11.22 Type 2 diabetes mellitus with diabetic chronic kidney disease; I48.2 Chronic atrial fibrillation; I13.0 Hypertensive heart and chronic kidney disease with heart failure and stage 1 through stage 4 chronic kidney disease, or unspecified chronic kidney disease; I50.22 Chronic systolic (congestive) heart failure; W01.0XXA Fall on same level from slipping, tripping and stumbling without subsequent striking against object, initial encounter; D46.9 Myelodysplastic syndrome, unspecified; E03.9 Hypothyroidism, unspecified; K29.70 Gastritis, unspecified, without bleeding; Z79.01 Long term (current) use of anticoagulants; Y92.480 Sidewalk as the place of occurrence of the external cause; Y92.009 Unspecified place in unspecified non-institutional (private) residence as the place of occurrence of the external cause; Y93.01 Activity, walking, marching and hiking; Z79.82 Long term (current) use of aspirin; Z79.899 Other long term (current) drug therapy; Z82.49 Family history of ischemic heart disease and other diseases of the circulatory system; Z83.3 Family history of diabetes mellitus; E66.09 Other obesity due to excess calories; E78.00 Pure hypercholesterolemia, unspecified; E78.5 Hyperlipidemia, unspecified; H91.91 Unspecified hearing loss, right ear; I25.10 Atherosclerotic heart disease of native coronary artery without angina pectoris; J44.9 Chronic obstructive pulmonary disease, unspecified; Z87.01 Personal history of pneumonia (recurrent); Z87.891 Personal history of nicotine dependence; Z95.1 Presence of aortocoronary bypass graft; Z95.5 Presence of coronary angioplasty implant and graft; R04.0 Epistaxis; Z96.659 Presence of unspecified artificial knee joint; Z79.84 Long term (current) use of oral hypoglycemic drugs; R00.1 Bradycardia, unspecified; R63.0 Anorexia

== ENCOUNTER 2017-10-09 08:08 | Inpatient (IN) | payer MEDICARE, BC ==
[2017-10-09 08:11] VITALS: BMI 27.9
--- NOTE | 2017-10-09 08:38 | ED PDOC ---
HPI: General Adult Time Seen by Provider: 10/09/17 08:12 Chief Complaint (Nursing): Weakness/Neurological Deficit Chief Complaint (Provider): Weakness/Neurological Deficit History Per: Patient History/Exam Limitations: no limitations Onset/Duration Of Symptoms: Worse Since (x3 days) Current Symptoms Are (Timing): Still Present Additional Complaint(s): 77 year old female with medical history of myelodysplastic syndrome, referred to the emergency department by PMD for an evaluation of generalized weakness associated with dyspnea on exertion, worsen over the last 3 days. Patient denies any cough, chest pain, abdominal pain, bloody or melenic stools. PMD: Russell Nunes MD Past Medical History Reviewed: Historical Data, Nursing Documentation, Vital Signs Vital Signs: Last Vital Signs Temp 97.4 F L 10/09/17 08:11 Pulse 81 10/09/17 10:55 Resp 16 10/09/17 10:55 BP 131/65 10/09/17 10:55 Pulse Ox 97 10/09/17 10:32 - Medical History PMH: Anemia, Atrial Fibrillation, CAD, COPD, Diabetes, Gastritis, HTN, Hypercholesterolemia, Hypothyroidism, Malignancy, Pneumonia Denies: HIV, Chronic Kidney Disease - Surgical History Surgical History: CABG, Coronary Stent - Family History Family History: States: Unknown Family Hx - Home Medications Home Medications: Ambulatory Orders Medication Instructions Recorded SITagliptin [Januvia] 100 mg PO DAILY 11/12/16 glyBURIDE [Micronase] 5 mg PO DAILY 11/12/16 Potassium Chloride [K-Dur 20 mEq 20 meq PO DAILY 01/09/17 ER Tab] Aspirin [Ecotrin] 81 mg PO DAILY tabec 04/24/17 Atorvastatin [Lipitor] 10 mg PO HS tab 04/24/17 Rivaroxaban [Xarelto] 15 mg PO QPM 05/08/17 Levothyroxine [Synthroid] 50 mcg PO DAILY 05/30/17 Furosemide [Lasix] 20 mg PO DAILY 07/17/17 Cholecalciferol [Vitamin D 1000 IU] 1 tab PO DAILY 10/09/17 Cu/Se/Vit A/Vit C/Vit E/Zinc 1 tab PO DAILY 10/09/17 [Ocuvite] Metoprolol Tartrate [Lopressor] 50 mg PO Q12 10/09/17 Multivitamin with Minerals [Hair, 1 tab PO DAILY 10/09/17 Skin and Nails] Vitamin B Complex [Super B-50 1 cap PO DAILY 10/09/17 Complex] - Allergies Allergies/Adverse Reactions: Allergies Allergy/AdvReac Type Severity Reaction Status Date / Time No Known Allergies Allergy Verified 10/09/17 08:24 Review of Systems ROS Statement: Except As Marked, All Systems Reviewed And Found Negative Constitutional: Positive for: Weakness (general) Cardiovascular: Negative for: Chest Pain Respiratory: Positive for: SOB with Exertion. Negative for: Cough Gastrointestinal: Negative for: Abdominal Pain, Melena, Hematochezia Physical Exam - Reviewed Nursing Documentation Reviewed: Yes Vital Signs Reviewed: Yes - Physical Exam Appears: Positive for: No Acute Distress Skin: Positive for: Pallor. Negative for: Normal Color Eye Exam: Positive for: Other (conjunctival pallor). Negative for: Normal appearance Cardiovascular/Chest: Positive for: Regular Rate, Rhythm Respiratory: Positive for: Normal Breath Sounds. Negative for: Respiratory Distress Gastrointestinal/Abdominal: Positive for: Normal Exam, Soft. Negative for: Tenderness Extremity: Positive for: Pedal Edema (1-2+ bilaterally) Neurologic/Psych: Positive for: Alert (x3), Oriented. Negative for: Motor/ Sensory Deficits - Laboratory Results Result Diagrams: 10/09/17 09:26 10/09/17 09:26 - ECG O2 Sat by Pulse Oximetry: 97 (RA) Pulse Ox Interpretation: Normal Medical Decision Making Medical Decision Making: Initial Impression: General weakness Initial Plan: * Type and screen * EKG * CMP * Urine dipstick * CBC * CXR Time: 0840 --POC glucose: 99 Time: 1005 --CXR FINDINGS: LUNGS: Right MediPort catheter unchanged in position with sternotomy wires are reiterated as well as mediastinal surgical clips. No interval infiltrate identified bilaterally. PLEURA: No significant pleural effusion identified. No pneumothorax apparent. CARDIOVASCULAR: Stable mild cardiomegaly. No pulmonary vascular congestion. OSSEOUS STRUCTURES: No significant abnormalities. VISUALIZED UPPER ABDOMEN: Normal. OTHER FINDINGS: None. IMPRESSION: No interval acute pulmonary disease. Stable mild cardiomegaly without pulmonary vascular congestion. Scribe Attestation: Documented by Laura Oneil, acting as a scribe for Serge Ashley MD. Provider Scribe Attestation: All medical record entries made by the Scribe were at my direction and personally dictated by me. I have reviewed the chart and agree that the record accurately reflects my personal performance of the history, physical exam, medical decision making, and the department course for this patient. I have also personally directed, reviewed, and agree with the discharge instructions and disposition. Disposition - Clinical Impression Clinical Impression: Myelodysplastic syndrome, Acute weakness - Patient ED Disposition Is Patient to be Admitted: Yes - Disposition Disposition Time: 11:09 Condition: FAIR - Pt Status Changed To: Hospital Disposition Of: Inpatient - Admit Certification Admit to Inpatient:: After my assessment, the patient will require hospitalization for at least two midnights. This is because of the severity of symptoms shown, intensity of services needed, and/or the medical risk in this patient being treated as an outpatient. - POA Present On Arrival: None
[2017-10-09 09:54] LABS: BASO % 1.1 % (0.0-2.0); EOS % 1.1 % (0.0-4.0); LYMPH # 0.8 K/uL (1.0-4.3); LYMPH % 20.5 % (20.0-40.0); MEAN CELL VOLUME 81.9 fl (81.0-99.0); MEAN CORPUSCULAR HEMOGLOBIN 25.6 pg (27.0-31.0); MEAN CORPUSCULAR HGB CONC 31.3 g/dL (33.0-37.0); MEAN PLATELET VOLUME 10.1 fl (7.2-11.7); MONO # 0.7 K/uL (0.0-0.8); MONO % 17.4 % (0.0-10.0); NEUT # 2.4 K/uL (1.8-7.0); NEUT % 59.9 % (50.0-75.0); RBC 3.91 Mil/uL (3.80-5.20); RED CELL DISTRIBUTION WIDTH 22.2 % (11.5-14.5)
--- NOTE | 2017-10-09 09:59 | CP.PCM.HP ---
History of Present Illness - History of Present Illness History of Present Illness: This 77-year-old female is well-known to me.. She has a history of hypertension. Diabetes mellitus and required coronary bypass graft surgery in April 2001 and subsequently required PCI in February 2008 and again in June 2009. She has had chronic atrial fibrillation for which she has been on oral anticoagulation. She developed myelodysplastic syndrome in November of last year and has subsequently been on chemotherapy for the same. The patient has developed profound anorexia and has lost 50 pounds over last 8 months. She complains of profound weakness and cannot walk without being assisted. There has been a fall for which she was hospitalized in April of this year. The patient had a severe episode of epistaxis and was hospitalized again in May of this year. The patient is an ex-smoker and had some degree of dyspnea on exertion. There has been a history of issues with lower back pain. She denies any palpitation or orthopnea. She does admit to significant fatigue and shortness of breath on minimal exertion at this point. Physical examination shows an elderly lady who appears much older than her stated age. She has a pasty complexion. There is no jaundice there is no cyanosis or clubbing. Her heart rate was 78 bpm irregularly irregular. Her blood pressure was 128/70 mmHg. Her jugular venous pressure was not elevated and there was minimal pitting edema over both lower extremities. Her pedal pulses were feeble but distinct of present. There were no carotid bruits. A scar of sternotomy was evident. the apex was not palpable. The first and second heart sounds were normal. There was a brief apical systolic murmur. There was no gallop rhythm there were no rales. Her abdomen was soft and nontender. Her liver and spleen could not be felt. There was no mass detected. Her rectal examination was deferred. Impression: abrupt weight loss with profound weakness in a patient with known myelodysplastic syndrome. Stable coronary artery disease with status post coronary bypass graft surgery and stenting off left main and left circumflex in 2009. Hypertension diabetes mellitus chronic atrial fibrillation. Chronic kidney disease stage 2-3. The patient is hospitalized for workup and management. She will be evaluated by her pulmonary physician and will undergo a CT of the abdomen and pelvis and thorax with oral contrast, to start her workup. , Present on Admission - Present on Admission Any Indicators Present on Admission: No Past Patient History - Past Medical History & Family History Past Medical History?: Yes - Past Social History Smoking Status: Heavy Smoker > 10 Cigarettes Daily - CARDIAC Hx Atrial Fibrillation: Yes Hx Hypercholesterolemia: Yes Hx Hypertension: Yes - PULMONARY Hx Chronic Obstructive Pulmonary Disease (COPD): Yes Hx Pneumonia: Yes - HEENT Other/Comment: Right ear -deaf - RENAL Hx Chronic Kidney Disease: No - ENDOCRINE/METABOLIC Hx Hypothyroidism: Yes - HEMATOLOGICAL/ONCOLOGICAL Hx Anemia: Yes Hx Human Immunodeficiency Virus (HIV): No - INTEGUMENTARY Hx Dermatological Problems: No - MUSCULOSKELETAL/RHEUMATOLOGICAL Hx Musculoskeletal Disorders: Yes Hx Back Pain: Yes (epidural) Hx Falls: No - GASTROINTESTINAL Hx Gastritis: Yes - GENITOURINARY/GYNECOLOGICAL Hx Genitourinary Disorders: No - PSYCHIATRIC Hx Psychophysiologic Disorder: No Hx Emotional Abuse: No Hx Physical Abuse: No Hx Substance Use: No - SURGICAL HISTORY Hx Coronary Artery Bypass Graft: Yes Hx Coronary Stent: Yes - ANESTHESIA Hx Anesthesia: Yes Hx Anesthesia Reactions: No Hx Malignant Hyperthermia: No Meds Allergies/Adverse Reactions: Allergies Allergy/AdvReac Type Severity Reaction Status Date / Time No Known Allergies Allergy Verified 10/09/17 08:24 Results - Vital Signs Recent Vital Signs: Last Vital Signs Temp 97.4 F L 10/09/17 08:11 Pulse 94 H 10/09/17 08:11 Resp 17 10/09/17 08:11 BP 148/82 10/09/17 08:11 Pulse Ox 97 10/09/17 09:02 - Labs Labs: Laboratory Results - last 24 hr 10/09/17 08:25 POC Glucose (mg/dL) 99
[2017-10-09 10:07] LABS: ALB/GLOB RATIO 1.2 (1.0-2.1); ALBUMIN 3.1 g/dL (3.5-5.0); CALCIUM 10.5 mg/dL (8.4-10.2)
--- NOTE | 2017-10-09 10:07 | RAD ---
HISTORY: Weakness COMPARISON: Chest radiographs 08/07/2017. TECHNIQUE: Chest PA and lateral FINDINGS: LUNGS: Right MediPort catheter unchanged in position with sternotomy wires are reiterated as well as mediastinal surgical clips. No interval infiltrate identified bilaterally. PLEURA: No significant pleural effusion identified. No pneumothorax apparent. CARDIOVASCULAR: Stable mild cardiomegaly. No pulmonary vascular congestion. OSSEOUS STRUCTURES: No significant abnormalities. VISUALIZED UPPER ABDOMEN: Normal. OTHER FINDINGS: None. IMPRESSION: No interval acute pulmonary disease. Stable mild cardiomegaly without pulmonary vascular congestion.
[2017-10-09] MEDS: Sodium Chloride 0.9% 1,000 ML IV SCH (10:11)
--- NOTE | 2017-10-09 10:58 | CARD ---
APPROVED REPORT EKG Measurement Heart [id number] <Conclusion> Atrial fibrillation RSR' or QR pattern in V1 suggests right ventricular conduction delay Cannot rule out Anterior infarct, age undetermined Abnormal ECG
--- NOTE | 2017-10-09 11:30 | CP.PCM.CON ---
Past Patient History - Past Medical History & Family History Past Medical History?: Yes - Past Social History Smoking Status: Heavy Smoker > 10 Cigarettes Daily - CARDIAC Hx Atrial Fibrillation: Yes Hx Hypercholesterolemia: Yes Hx Hypertension: Yes - PULMONARY Hx Chronic Obstructive Pulmonary Disease (COPD): Yes Hx Pneumonia: Yes - HEENT Other/Comment: Right ear -deaf - RENAL Hx Chronic Kidney Disease: No - ENDOCRINE/METABOLIC Hx Hypothyroidism: Yes - HEMATOLOGICAL/ONCOLOGICAL Hx Anemia: Yes Hx Human Immunodeficiency Virus (HIV): No - INTEGUMENTARY Hx Dermatological Problems: No - MUSCULOSKELETAL/RHEUMATOLOGICAL Hx Musculoskeletal Disorders: Yes - GASTROINTESTINAL Hx Gastritis: Yes - GENITOURINARY/GYNECOLOGICAL Hx Genitourinary Disorders: No - PSYCHIATRIC Hx Psychophysiologic Disorder: No - SURGICAL HISTORY Hx Coronary Artery Bypass Graft: Yes Hx Coronary Stent: Yes - ANESTHESIA Hx Anesthesia: Yes Hx Anesthesia Reactions: No Hx Malignant Hyperthermia: No Meds Allergies/Adverse Reactions: Allergies Allergy/AdvReac Type Severity Reaction Status Date / Time No Known Allergies Allergy Verified 10/09/17 08:24 - Medications Medications: Current Medications Atorvastatin Calcium (Lipitor) 10 mg PO DAILY [facility] Sodium Chloride (Sodium Chloride 0.9%) 1,000 mls @ 50 mls/hr IV .Q20H [facility] Stop: 10/10/17 10:03 Last Admin: 10/09/17 10:11 Dose: 50 mls/hr Levothyroxine Sodium (Synthroid) 50 mcg PO DAILY@0630 [facility] Metoprolol Tartrate (Lopressor) 50 mg PO Q12 [facility] Rivaroxaban (Xarelto) 15 mg PO QD5 [facility] PRN Reason: Protocol Sitagliptin Phosphate (Januvia) 100 mg PO DAILY [facility] Results - Vital Signs Recent Vital Signs: Last Vital Signs Temp 97.4 F L 10/09/17 08:11 Pulse 81 10/09/17 10:55 Resp 16 10/09/17 10:55 BP 131/65 10/09/17 10:55 Pulse Ox 97 10/09/17 11:10 - Labs Result Diagrams: 10/09/17 09:26 10/09/17 09:26 Labs: Laboratory Results - last 24 hr 10/09/17 10/09/17 10/09/17 08:25 09:26 09:26 WBC 4.0 L RBC 3.91 Hgb 10.0 L Hct 32.0 L MCV 81.9 MCH 25.6 L MCHC 31.3 L RDW 22.2 H Plt Count 126 L MPV 10.1 Neut % (Auto) 59.9 Lymph % (Auto) 20.5 [place] % (Auto) 17.4 H Eos % (Auto) 1.1 Baso % (Auto) 1.1 Neut # (Auto) 2.4 Lymph # (Auto) 0.8 L [place] # (Auto) 0.7 Eos # (Auto) 0.0 Baso # (Auto) 0.0 Sodium 126 L Potassium 4.9 Chloride 92 L Carbon Dioxide 28 Anion Gap 11 BUN 23 H Creatinine 1.3 H Est GFR ( Amer) 48 Est GFR (Non-Af Amer) 40 POC Glucose (mg/dL) 99 Random Glucose 74 Calcium 10.5 H Total Bilirubin 1.9 H AST 73 H D ALT 34 Alkaline Phosphatase 77 Total Protein 5.8 L Albumin 3.1 L Globulin 2.7 Albumin/Globulin Ratio 1.2 TSH 3rd Generation 1.02 10/09/17 11:22 WBC RBC Hgb Hct MCV MCH MCHC RDW Plt Count MPV Neut % (Auto) Lymph % (Auto) [place] % (Auto) Eos % (Auto) Baso % (Auto) Neut # (Auto) Lymph # (Auto) [place] # (Auto) Eos # (Auto) Baso # (Auto) Sodium Potassium Chloride Carbon Dioxide Anion Gap BUN Creatinine Est GFR ( Amer) Est GFR (Non-Af Amer) POC Glucose (mg/dL) 55 L Random Glucose Calcium Total Bilirubin AST ALT Alkaline Phosphatase Total Protein Albumin Globulin Albumin/Globulin Ratio TSH 3rd Generation Assessment & Plan (1) Pulmonary hypertension Status: Chronic Priority: High - Date & Time Date: 10/09/17 Time: 11:30
[2017-10-09] MEDS ORDERED: Iohexol 240 (50 ml) PO ONE (12:53)
[2017-10-09] MEDS ORDERED: Sodium Chloride 0.9% 100 ML ONE (16:51)
[2017-10-09] MEDS ORDERED: Iodixanol 320 MG/ML 100 ML BOTTLE IV ONE (16:51)
--- NOTE | 2017-10-09 18:59 | CT ---
PROCEDURE: CT Chest, Abdomen and Pelvis with intravenous contrast HISTORY: Generalized weakness, weight loss and anorexia COMPARISON: 11/16/2016 CT abdomen and pelvis 04/23/2017 CT thorax TECHNIQUE: IV dose administered: 95 cc Visipaque 320 Radiation dose: Total exam DLP = 502.02 mGy-cm. This CT exam was performed using one or more of the following dose reduction techniques: Automated exposure control, adjustment of the mA and/or kV according to patient size, and/or use of iterative reconstruction technique. FINDINGS: CT CHEST WITH CONTRAST: LUNGS: Clear. No nodule, mass or consolidation. MEDIASTINUM: Unremarkable. Normal caliber aorta and pulmonary arterial trunk. No aortic dissection. Normal size heart. LYMPH NODES: Small mediastinal and hilar lymph nodes again identified, unchanged compared to the prior study. No supraclavicular upper axillary adenopathy identified. PLEURA: Unremarkable. No pneumothorax. No pleural fluid. BONES: Unremarkable. OTHER FINDINGS: None. CT ABDOMEN AND PELVIS: LIVER: Hepatic steatosis. No focal masses. No intrahepatic bile duct dilatation or perihepatic ascites. GALLBLADDER AND BILE DUCTS: Unremarkable. PANCREAS: Unremarkable. No gross lesion or ductal dilatation. SPLEEN: Massive splenomegaly. Orthogonal measurements 15.2 x 8 x 18.8 cm. Abnormal contrast-enhancing characteristics spleen including areas of diminished perfusion with masslike appearance to several areas as well as geographic areas suggestive of splenic infarction. On the prior unenhanced study the spleen measured 6.9 x 12.9 x 16.5 cm. ADRENALS: Unremarkable. No mass. KIDNEYS AND URETERS: Unremarkable. No hydronephrosis. No solid mass. VASCULATURE: Unremarkable. No aortic aneurysm. BOWEL: Unremarkable. No obstruction. No gross mural thickening. APPENDIX: Normal appendix. PERITONEUM: Unremarkable. No free fluid. No free air. LYMPH NODES: Unremarkable. No enlarged lymph nodes. BLADDER: Unremarkable. REPRODUCTIVE: Unremarkable. BONES: No acute fracture. OTHER FINDINGS: None. IMPRESSION: No acute/ significant findings in the thorax. Splenomegaly. The overall size of the spleen is increase compared to the prior study. Splenic abnormalities in part may be due to vascular phase but concern about both splenic infarction and splenic masses is raised. Additional benign and/or incidental findings described above.
[2017-10-10] MEDS: Levothyroxine 50 MCG TAB PO SCH (05:29)
[2017-10-10] MEDS: Sodium Chloride 0.9% 1,000 ML IV SCH (05:57)
[2017-10-10 06:58] LABS: ALB/GLOB RATIO 1.3 (1.0-2.1); ALBUMIN 2.5 g/dL (3.5-5.0); CALCIUM 10.3 mg/dL (8.4-10.2)
--- NOTE | 2017-10-10 09:12 | CP.PCM.PN ---
Subjective - Date & Time of Evaluation Date of Evaluation: 10/10/17 Time of Evaluation: 08:10 - Subjective Subjective: Sitting OOB, had a comfortable noght HR 68 BPM, reg BP 128/68 Hg Mild pedal oedema (Hypoalb) JVP flat, no rales Serum Na+ level has risen to 127 mEq/L from 126 mEq/L BUN/Creatinin stable CT shows Massive splenomegaly Will have Onc see her (was scheduled for chemo today) Will give 3% Saline to resolve hyponatremia Will hold Xarelto for poss Spleen biopsy Discussed with Dr. Vazquez Objective - Vital Signs/Intake and Output Vital Signs (last 24 hours): Temp Pulse Resp BP Pulse Ox 97.9 F 108 H 20 123/75 97 10/10/17 08:01 10/10/17 08:01 10/10/17 08:01 10/10/17 08:01 10/10/17 08:01 - Medications Medications: Current Medications Atorvastatin Calcium (Lipitor) 10 mg PO DAILY [facility] Sodium Chloride (Sodium Chloride 0.9%) 1,000 mls @ 50 mls/hr IV .Q20H [facility] Stop: 10/10/17 10:03 Last Admin: 10/10/17 05:57 Dose: Not Given Levothyroxine Sodium (Synthroid) 50 mcg PO DAILY@0630 [facility] Last Admin: 10/10/17 05:29 Dose: 50 mcg Metoprolol Tartrate (Lopressor) 50 mg PO Q12 [facility] Last Admin: 10/09/17 22:19 Dose: 50 mg Rivaroxaban (Xarelto) 15 mg PO QD5 [facility] PRN Reason: Protocol Last Admin: 10/09/17 19:50 Dose: 15 mg Sitagliptin Phosphate (Januvia) 100 mg PO DAILY [facility] - Labs Labs: 10/09/17 09:26 10/10/17 06:20
[2017-10-10] MEDS ORDERED: Sodium Chloride 3% 500 ML IV SCH (09:15)
--- NOTE | 2017-10-10 11:19 | CP.PCM.PN ---
Subjective - Date & Time of Evaluation Date of Evaluation: 10/10/17 Time of Evaluation: 11:17 - Subjective Subjective: Discussed earlier this morning with cardiology. CT C/A/P reviewed. No new chest findings. Massive splenomegaly found. Discussed also with oncology. Patient appears more comfortable this morning. Objective - Vital Signs/Intake and Output Vital Signs (last 24 hours): Temp Pulse Resp BP Pulse Ox 97.9 F 108 H 20 123/75 97 10/10/17 08:01 10/10/17 09:14 10/10/17 08:01 10/10/17 09:14 10/10/17 08:01 - Medications Medications: Current Medications Atorvastatin Calcium (Lipitor) 10 mg PO DAILY [facility] Last Admin: 10/10/17 09:14 Dose: 10 mg Sodium Chloride (Hypertonic Saline 3%) 500 mls @ 10 mls/hr IV .Q24H [facility] Stop: 10/11/17 09:14 Levothyroxine Sodium (Synthroid) 50 mcg PO DAILY@0630 [facility] Last Admin: 10/10/17 05:29 Dose: 50 mcg Metoprolol Tartrate (Lopressor) 50 mg PO Q12 [facility] Last Admin: 10/10/17 09:14 Dose: 50 mg Sitagliptin Phosphate (Januvia) 100 mg PO DAILY [facility] Last Admin: 10/10/17 09:13 Dose: 100 mg - Labs Labs: 10/09/17 09:26 10/10/17 06:20 Assessment and Plan (1) Pulmonary hypertension Status: Chronic
--- NOTE | 2017-10-10 11:46 | CP.PCM.PN ---
Subjective - Date & Time of Evaluation Date of Evaluation: 10/10/17 Time of Evaluation: 11:33 - Subjective Subjective: This is a 77 yrs old female who was admitted in feb 2017 with pancytoopenia. 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 Recently she has been feeling very tired and looks washed out. She has also lost about 20 lbs since her first chemo. She was admitted to evaluate her wt loss and weakness. A CT scan of the chest and abdomen showed a massive spleen and it showed some ? Her cbc is normal. masses in the spleen. The liver looks a little fatty. No other adenopathy. She has a past h/o DM, htn, chronic CHF, atrial fibrillation. NON smoker.Drinks socially. Objective - Vital Signs/Intake and Output Vital Signs (last 24 hours): Temp Pulse Resp BP Pulse Ox 97.9 F 108 H 20 123/75 97 10/10/17 08:01 10/10/17 09:14 10/10/17 08:01 10/10/17 09:14 10/10/17 08:01 - Medications Medications: Current Medications Atorvastatin Calcium (Lipitor) 10 mg PO DAILY [facility] Last Admin: 10/10/17 09:14 Dose: 10 mg Sodium Chloride (Hypertonic Saline 3%) 500 mls @ 10 mls/hr IV .Q24H [facility] Stop: 10/11/17 09:14 Levothyroxine Sodium (Synthroid) 50 mcg PO DAILY@0630 [facility] Last Admin: 10/10/17 05:29 Dose: 50 mcg Metoprolol Tartrate (Lopressor) 50 mg PO Q12 [facility] Last Admin: 10/10/17 09:14 Dose: 50 mg Sitagliptin Phosphate (Januvia) 100 mg PO DAILY [facility] Last Admin: 10/10/17 09:13 Dose: 100 mg - Labs Labs: 10/09/17 09:26 10/10/17 06:20 - Additional Findings Additional findings: Physical exam' Alert, well oriented in no acute distress, vry pale Neck; Supple, no adenopathy Cheat; clear, no rales or rhonchi heart; RSR, no murmur Abd; soft, no mass, no hepatomegaly, spleen 5cm below left costal margin Assessment and Plan - Assessment and Plan (Free Text) Assessment: IMP; MDS Splenomegaly with scattered masses ? cmml,?splenic lymphoma Plan: Plan; pt needs a splenic biopsy.Spoke to Dr Selby in IR. He would like an ultrasound to be done, to facilitate the biopsy. Will hold the xarelto for 4 days prior to the biopsy. Because of the upcoming weekend and the the 18 of october, biopsy will be done on October 19.
--- NOTE | 2017-10-10 16:30 | US ---
HISTORY: Splenomegaly COMPARISON: Comparison made with CT scan chest abdomen pelvis dated 10/09/2017. Comparison also made with renal ultrasound dated 04/20/2017. TECHNIQUE: Sonographic evaluation of the abdomen. FINDINGS: LIVER: Measures approximately 17 cm. Smooth contour and normal echogenicity of the liver parenchyma. No mass. No intrahepatic bile duct dilatation. GALLBLADDER: Gallbladder is contracted with thick-walled appearance. Presumed multiple echogenic small calculi/gravel and probably some associated sludge. Gallbladder wall thickening may in part be due to nonfasting state however chronic inflammation of the gallbladder wall should be considered COMMON BILE DUCT: Measures 4.0 mm. No stones. No dilatation. PANCREAS: Unremarkable as visualized. No mass. No ductal dilatation. RIGHT KIDNEY: Measures 9.0 x 4.4 x 4.7cm. Normal echogenicity. No calculus, mass, or hydronephrosis. Small right-sided renal cyst visible on CT scan 10/09/2017 is not well delineated on this study. LEFT KIDNEY: Measures 9.5 x 4.3 x 3.4cm. Normal echogenicity. No calculus, mass, or hydronephrosis. SPLEEN: The spleen is markedly enlarged measuring over 20 cm in greatest dimension. No obvious masses or collections seen on images presented. AORTA: Not well delineated. IVC: Not well delineated. OTHER FINDINGS: Small approximately 2.7 x 7.8 mm peripancreatic lymph node IMPRESSION: Marked splenomegaly measuring over 20 cm in greatest dimension. Gallbladder is contracted with thick-walled appearance. Presumed multiple echogenic small calculi/gravel and probably some associated sludge. Gallbladder wall thickening may in part be due to nonfasting state however chronic inflammation of the gallbladder wall should be considered Small approximately 2.7 x 7.8 mm peripancreatic lymph node
[2017-10-11] MEDS: Levothyroxine 50 MCG TAB PO SCH (05:45)
[2017-10-11 09:11] LABS: ALB/GLOB RATIO 1.2 (1.0-2.1); ALBUMIN 2.9 g/dL (3.5-5.0); CALCIUM 10.2 mg/dL (8.4-10.2)
--- NOTE | 2017-10-11 10:48 | CP.PCM.PN ---
Subjective - Date & Time of Evaluation Date of Evaluation: 10/11/17 Time of Evaluation: 09:00 - Subjective Subjective: Still feels weak+++ Serum Na+ 129 mEq/L (after 3% saline drip at 10ml./hr) BP 130/70 mm Hg JVP flat, no rales Will give IV 3 % saline for another day Echo to eval LV function (?? need for technician terminal and repeater Furosemide) Speenic biopsy as out pt. Objective - Vital Signs/Intake and Output Vital Signs (last 24 hours): Temp Pulse Resp BP Pulse Ox 97.6 F 85 20 125/75 99 10/11/17 08:06 10/11/17 08:33 10/11/17 08:06 10/11/17 08:33 10/11/17 08:06 - Medications Medications: Current Medications Atorvastatin Calcium (Lipitor) 10 mg PO DAILY [facility] Last Admin: 10/11/17 08:32 Dose: 10 mg Levothyroxine Sodium (Synthroid) 50 mcg PO DAILY@0630 [facility] Last Admin: 10/11/17 05:45 Dose: 50 mcg Metoprolol Tartrate (Lopressor) 50 mg PO Q12 [facility] Last Admin: 10/11/17 08:33 Dose: 50 mg Sitagliptin Phosphate (Januvia) 100 mg PO DAILY [facility] Last Admin: 10/11/17 08:32 Dose: 100 mg - Labs Labs: 10/09/17 09:26 10/11/17 08:49
[2017-10-11] MEDS ORDERED: Sodium Chloride 3% 500 ML IV SCH (11:00)
--- NOTE | 2017-10-11 15:21 | CP.PCM.PN ---
Subjective - Date & Time of Evaluation Date of Evaluation: 10/11/17 Time of Evaluation: 15:14 - Subjective Subjective: Pt is feeling a little better. She is going to have a splenic biopsy on october 18. She will stop the xarelto after Monday. further treatment plan to depend on the result of te biopsy Objective - Vital Signs/Intake and Output Vital Signs (last 24 hours): Temp Pulse Resp BP Pulse Ox 97.6 F 85 20 125/75 99 10/11/17 08:06 10/11/17 08:33 10/11/17 08:06 10/11/17 08:33 10/11/17 08:06 - Medications Medications: Current Medications Atorvastatin Calcium (Lipitor) 10 mg PO DAILY [facility] Last Admin: 10/11/17 08:32 Dose: 10 mg Sodium Chloride (Hypertonic Saline 3%) 500 mls @ 15 mls/hr IV .Q24H [facility] Stop: 10/12/17 10:49 Last Admin: 10/11/17 14:02 Dose: 15 mls/hr Levothyroxine Sodium (Synthroid) 50 mcg PO DAILY@0630 [facility] Last Admin: 10/11/17 05:45 Dose: 50 mcg Metoprolol Tartrate (Lopressor) 50 mg PO Q12 [facility] Last Admin: 10/11/17 08:33 Dose: 50 mg Sitagliptin Phosphate (Januvia) 100 mg PO DAILY [facility] Last Admin: 10/11/17 08:32 Dose: 100 mg - Labs Labs: 10/09/17 09:26 10/11/17 08:49
--- NOTE | 2017-10-11 15:39 | CARD ---
APPROVED REPORT EXAM: Two-dimensional and M-mode echocardiogram with Doppler and color Doppler. Other Information Quality : GoodRhythm : INDICATION Congestive Heart Failure 2D DIMENSIONS IVSd1.16 (0.7-1.1cm)LVDd4.31 (3.9-5.9cm) LVOT Diameter1.59 (1.8-2.4cm)PWd1.06 (0.7-1.1cm) IVSs1.27 (0.8-1.2cm)LVDs3.32 (2.5-4.0cm) FS (%) 22.8 %PWs1.33 (0.8-1.2cm) M-Mode DIMENSIONS Left Atrium (MM)4.69 (2.5-4.0cm)IVSd0.98 (0.7-1.1cm) Aortic Root3.23 (2.2-3.7cm)LVDd4.80 (4.0-5.6cm) Aortic Cusp Exc.1.68 (1.5-2.0cm)PWd0.87 (0.7-1.1cm) IVSs1.01 cmFS (%) 27 % LVDs3.50 (2.0-3.8cm)PWs1.07 cm Mitral Valve MV E Zzozxiil397.1cm/sMV DECEL [id number] A Rjoziysp82.4cm/s MV OCI62gjM/A ratio2.9MVA (PHT)5.38cm2 TDI Lateral E' Peak V10.27cm/sMedial E' Peak V6.93cm/sE/Lateral E'13.6 E/Medial E'20.2 Pulmonary Valve PV Peak Pgpwjmgx142.1cm/s Tricuspid Valve TR Peak Rrpxpkam520fi/sRAP LUMRPNTY35umLzQQ Peak Gr.36mmHg [id number] LEFT VENTRICLE The left ventricle is normal size. The left ventricular function is normal. The left ventricular ejection fraction is within the normal range. The Ejection Fraction is 50-55%. There is normal LV segmental wall motion. The left ventricular diastolic function is normal. RIGHT VENTRICLE The right ventricle is normal size. The right ventricular systolic function is normal. ATRIA The left atrium size is normal. The right atrium size is normal. AORTIC VALVE The aortic valve is normal in structure. No aortic regurgitation is present. There is no aortic valvular stenosis. MITRAL VALVE The mitral valve is normal in structure. There is no mitral valve stenosis. Mitral regurgitation is mild to moderate. TRICUSPID VALVE The tricuspid valve is normal in structure. There is moderate tricuspid regurgitation. PULMONIC VALVE The pulmonary valve is normal in structure. There is no pulmonic valvular regurgitation. GREAT VESSELS The aortic root is normal in size. The IVC is normal in size and collapses >50% with inspiration. PERICARDIAL EFFUSION The pericardium appears normal. <Conclusion> The left ventricle is normal size. The left ventricular function is normal. The left ventricular ejection fraction is within the normal range. The Ejection Fraction is 50-55%. Mitral regurgitation is mild to moderate. There is moderate tricuspid regurgitation.
[2017-10-12] MEDS: Levothyroxine 50 MCG TAB PO SCH (05:44)
[2017-10-12 07:06] LABS: ALB/GLOB RATIO 1.2 (1.0-2.1); ALBUMIN 2.5 g/dL (3.5-5.0); CALCIUM 10.6 mg/dL (8.4-10.2)
[2017-10-12 07:59] VITALS: BP 127/73; PULSE 85; RESP 20; TEMP 97.6; O2SAT 97
--- NOTE | 2017-10-12 09:13 | CP.PCM.PN ---
Subjective - Date & Time of Evaluation Date of Evaluation: 10/12/17 Time of Evaluation: 09:09 - Subjective Subjective: Pt is feeling better, anxious to go home. Her CBC is good , but the splenomegaly has to be addressed.. Because of the xarelto she cannot have the biopsy now, so she will be discharged and have a biopsy on October 20 In the meanwhile she will have a PRT scan mu Objective - Vital Signs/Intake and Output Vital Signs (last 24 hours): Temp Pulse Resp BP Pulse Ox 97.6 F 85 20 127/73 97 10/12/17 07:58 10/12/17 07:58 10/12/17 07:58 10/12/17 07:58 10/12/17 07:58 - Medications Medications: Current Medications Atorvastatin Calcium (Lipitor) 10 mg PO DAILY [facility] Last Admin: 10/12/17 08:57 Dose: 10 mg Sodium Chloride (Hypertonic Saline 3%) 500 mls @ 15 mls/hr IV .Q24H [facility] Stop: 10/12/17 10:49 Last Admin: 10/11/17 14:02 Dose: 15 mls/hr Levothyroxine Sodium (Synthroid) 50 mcg PO DAILY@0630 [facility] Last Admin: 10/12/17 05:44 Dose: 50 mcg Metoprolol Tartrate (Lopressor) 50 mg PO Q12 [facility] Last Admin: 10/12/17 08:57 Dose: 50 mg Sitagliptin Phosphate (Januvia) 100 mg PO DAILY [facility] Last Admin: 10/12/17 08:57 Dose: 100 mg - Labs Labs: 10/09/17 09:26 10/12/17 06:10
--- NOTE | 2017-10-12 10:35 | CP.PCM.DIS ---
Provider - Provider Date of Admission: 10/09/17 09:35 Attending physician: Russell Nunes MD Time Spent in preparation of Discharge (in minutes): 40 Hospital Course - Lab Results Lab Results: Most Recent Lab Values WBC 4.0 K/uL (4.8-10.8) L 10/09/17 09:26 RBC 3.91 Mil/uL (3.80-5.20) 10/09/17 09:26 Hgb 10.0 g/dL (12.0-16.0) L 10/09/17 09: Hct 32.0 % (34.0-47.0) L 10/09/17 09: MCV 81.9 fl (81.0-99.0) 10/09/17 09: MCH 25.6 pg (27.0-31.0) L 10/09/17 09: MCHC 31.3 g/dL (33.0-37.0) L 10/09/17 09: RDW 22.2 % (11.5-14.5) H 10/09/17 09: Plt Count 126 K/uL (130-400) L 10/09/17 09: MPV 10.1 fl (7.2-11.7) 10/09/17 09: Neut % (Auto) 59.9 % (50.0-75.0) 10/09/17 09: Lymph % (Auto) 20.5 % (20.0-40.0) 10/09/17 09: Gulf % (Auto) 17.4 % (0.0-10.0) H 10/09/17 09: Eos % (Auto) 1.1 % (0.0-4.0) 10/09/17 09: Baso % (Auto) 1.1 % (0.0-2.0) 10/09/17 09: Neut # (Auto) 2.4 K/uL (1.8-7.0) 10/09/17 09: Lymph # (Auto) 0.8 K/uL (1.0-4.3) L 10/09/17 09:26 Gulf # (Auto) 0.7 K/uL (0.0-0.8) 10/09/17 09:26 Eos # (Auto) 0.0 K/uL (0.0-0.7) 10/09/17 09:26 Baso # (Auto) 0.0 K/uL (0.0-0.2) 10/09/17 09:26 Sodium 129 mmol/l (132-148) L 10/12/17 06:10 Potassium 3.9 MMOL/L (3.6-5.0) 10/12/17 06:10 Chloride 99 mmol/L (98-107) 10/12/17 06:10 Carbon Dioxide 21 mmol/L (22-30) L 10/12/17 06:10 Anion Gap 13 (10-20) 10/12/17 06:10 BUN 23 mg/dl (7-17) H 10/12/17 06:10 Creatinine 1.2 mg/dl (0.7-1.2) 10/12/17 06:10 Est GFR ( Amer) 53 10/12/17 06:10 Est GFR (Non-Af Amer) 44 10/12/17 06:10 POC Glucose (mg/dL) 176 mg/dL (65-110) H 10/12/17 04:56 Random Glucose 158 mg/dL (65-105) H 10/12/17 06:10 Calcium 10.6 mg/dL (8.4-10.2) H 10/12/17 06:10 Total Bilirubin 1.2 mg/dl (0.2-1.3) 10/12/17 06:10 AST 24 U/L (14-36) 10/12/17 06:10 ALT 37 U/L (9-52) 10/12/17 06:10 Alkaline Phosphatase 76 U/L (38-126) 10/12/17 06:10 Total Protein 4.7 G/DL (6.3-8.2) L 10/12/17 06:10 Albumin 2.5 g/dL (3.5-5.0) L 10/12/17 06:10 Globulin 2.1 gm/dL (2.2-3.9) L 10/12/17 06:10 Albumin/Globulin Ratio 1.2 (1.0-2.1) 10/12/17 06:10 TSH 3rd Generation 1.02 mIU/ML (0.46-4.68) 10/09/17 09:26 - Hospital Course Hospital Course: this 77-year-old female was hospitalized on September complaining of profound weakness and having lost approximately 50 pounds over the course of previous year. She has a long history of diabetes mellitus, hypertension and dyslipidemia and required coronary bypass graft surgery in 2001 followed by coronary stenting in 2007 and again in 2009. She has never suffered a myocardial infarction and never manifested overt congestive cardiac failure. The patient had developed myelodysplastic syndrome in November of last year and has been undergoing chemotherapy for it. The patient has been taking thyroid replacement for hypothyroidism on a regular basis. She is an ex-smoker who has been seeing a pulmonary physician because of pulmonary insufficiency. The patient at this stage was complaining of profound anorexia and generalized weakness. On the day of admission the patient indicated that she had eaten a cookie for breakfast and by the time she arrived on the floor was profoundly hypoglycemic perspiration and her Accu-Chek measurement was 55 mg percent. The patient was urgently given sugar-containing drinks and promptly recovered. Physical examination again revealed an extremely a mesh gated CT looking female much older than her stated age. She was alert awake and coherent afebrile. Her heart rate was 70 bpm regular and her blood pressure was 120/70 mmHg. Her jugular venous pressure was not elevated there was minimal pitting edema over both lower extremity probably related to her hypoalbuminimic status.a scar of sternotomy was evident her apex was not palpable the first and second heart sounds were normal. Her spleen was enlarged and nontender.her electro- Cardiogram showed atrial fibrillation at moderate heart rates with poor R-wave progression from V1 to V3. Her lab data at admission showed a WBC count of 4000 with a platelet count of 126,000 and her hemoglobin was 10 g with a hematocrit of 32%. Her serum sodium was 126 mg/L with a serum potassium of 4.9 mg/L her BUN /creatinine were 23 and 1.3 mg percent respectively her AST and ALTs were essentially normal her total protein was 5.8 g. The patient underwent a CT scan of her pelvis abdomen and chest with oral and intravenous contrast. Massive splenomegaly measuring 20 cm at its longest dimention was detected. the patient was started on intravenous hypertonic saline and her serum sodium level which was 126 mg/L at admission increased 229 mg/L. Her BUN/creatinine of 23 and 1.3 at admission were 23 and 1.2 mg percent at discharge. Because of poor oral intake and a severe hypoglycemic event her glyburide was discontinued and the patient was sent home taking only Januvia. A heme on consultation was requested after the finding off massive splenomegaly. A splenic biopsy was arranged as an outpatient after her oral anticoagulation was withheld. Also a PET scan was arranged as an outpatient. The patient clinically improved. An echocardiogram done in the hospital before discharge showed a preserved left ventricular systolic function with adequate regional wall motion. Her pulmonary artery systolic pressure was in the range of 53 mmHg probably related to her prior history of smoking. Given adequate left ventricular systolic function and the fact that the patient had arrived hyponatremic ( which could be responsible for anorexia and profound weakness) the patient was kept off of furosemide. She was finally sent home taking thyroid replacement along with 100 mg of Januvia 81 mg of aspirin along with metoprolol as well as atorvastatin the patient was continued to take Rivaroxaban as an oral anticoagulation for atrial fibrillation.. An appointment has been made for splenic biopsy next week. Also a PET scan has been arranged. The patient was allowed to return home and instructed to see me within 2 weeks. Her final diagnosis was myelodysplastic syndrome with severe splenomegaly with hyponatremia. Hypertension diabetes and dyslipidemia with stable coronary artery disease and status post coronary bypass graft surgery and coronary stenting 2. Chronic atrial fibrillation. her diabetic medication activities are explained to her. She will return to see me in 2 weeks. Discharge Plan - Follow Up Plan Condition: FAIR Disposition: HOME/ ROUTINE Instructions: Generalized Weakness (DC) Referrals: Houston Vazquez MD [Family Provider] -
[2017-10-12 10:51] LABS: INR 1.1 (0.9-1.2); PROTHROMBIN TIME 11.9 Seconds (9.8-13.1)
== END 2017-10-12 13:30 | disposition home or self-care (01) | DRG 641 ==
LOC: H.ER 08:08 → H.ERHOLD 09:35 → H.MEDSURG1 11:36
PROVIDERS: ADMIT Internal Medicine Cardiovascular Disease; ATTEND Internal Medicine Cardiovascular Disease
DX: E87.1 Hypo-osmolality and hyponatremia (principal); D46.9 Myelodysplastic syndrome, unspecified; R16.1 Splenomegaly, not elsewhere classified; E11.649 Type 2 diabetes mellitus with hypoglycemia without coma; I27.20 Pulmonary hypertension, unspecified; I48.2 Chronic atrial fibrillation; I25.10 Atherosclerotic heart disease of native coronary artery without angina pectoris; E03.9 Hypothyroidism, unspecified; E78.5 Hyperlipidemia, unspecified; E78.00 Pure hypercholesterolemia, unspecified; J44.9 Chronic obstructive pulmonary disease, unspecified; I12.9 Hypertensive chronic kidney disease with stage 1 through stage 4 chronic kidney disease, or unspecified chronic kidney disease; E11.22 Type 2 diabetes mellitus with diabetic chronic kidney disease; N18.3 Chronic kidney disease, stage 3 (moderate); H91.91 Unspecified hearing loss, right ear; K29.70 Gastritis, unspecified, without bleeding; F17.210 Nicotine dependence, cigarettes, uncomplicated; Z95.1 Presence of aortocoronary bypass graft; Z95.5 Presence of coronary angioplasty implant and graft; Z85.72 Personal history of non-Hodgkin lymphomas; Z92.21 Personal history of antineoplastic chemotherapy; Z87.01 Personal history of pneumonia (recurrent); Z79.84 Long term (current) use of oral hypoglycemic drugs; Z79.01 Long term (current) use of anticoagulants; Z79.82 Long term (current) use of aspirin

== ENCOUNTER 2017-10-19 10:46 | Day surgery (SDC) | payer MEDICARE, BC ==
[2017-10-19 11:26] VITALS: BMI 27.7
[2017-10-19] MEDS ORDERED: Absorbable Gelatin Sponge Size 12-7 ONE (13:22)
[2017-10-19] MEDS ORDERED: Lidocaine 1% Inj (20ml) ONE (13:22)
--- NOTE | 2017-10-19 13:47 | CP.SDSHP ---
Same Day Surgery H & P - History Proposed Procedure: CT guided splenic mass biopsy Pre-Op Diagnosis: Splenic mass - Allergies Allergies: Allergies No Known Allergies Allergy (Verified 10/19/17 11:23) - Physical Exam Vital Signs: Vital Signs 10/19/17 10/19/17 12:00 13:22 Temperature 98.1 F 96.8 F L Pulse Rate 81 90 Respiratory 18 20 Rate Blood Pressure 135/61 158/72 H O2 Sat by Pulse 96 100 Oximetry Mental Status: Alert & Oriented x3 Neuro: WNL Heart: WNL Lungs: WNL - Impression Impression: Pt splenomegally and CT showing multiple splenic lesions. Pt is refered for biopsy. Informed consent and risk of bleed discussed with patient. Pt. Evaluated Today:Candidate for Anesthesia & Procedure: Yes (ASA 3 Malampati 3) - Date & Time Date: 10/19/17 Time: 13:05 Short Stay Discharge - Short Stay Discharge Admitting Diagnosis/Reason for Visit: MASSIVE SPLENOMEGALY Disposition: HOME/ ROUTINE Referrals: Houston Vazquez MD [Primary Care Provider] -
--- NOTE | 2017-10-19 13:48 | PCM.SURG1 ---
Surgeon's Initial Post Op Note - Surgeon's Notes Surgeon: Jasson Selby MD Dye Operator: NONE Type of Anesthesia: IV Sedation, Local Pre-Operative Diagnosis: Splenic masses Operative Findings: CT showed enlarged spleen. Post-Operative Diagnosis: Splenic masses Operation Performed: CT guided core biopsy of spleen. Biopsy tract embolized with gelfoam. Specimen/Specimens Removed: 18 gauge core x 6 Estimated Blood Loss: EBL {In ML}: 3 Drains Used: No Drains Post-Op Condition: Good Date of Surgery/Procedure: 10/19/17 Time of Surgery/Procedure: 13:40
[2017-10-19] MEDS ORDERED: Lactated Ringer's 1,000 ML IV ONE (14:35)
[2017-10-19 16:15] VITALS: BP 137/73; PULSE 98; RESP 18; TEMP 97.8; O2SAT 98
== END 2017-10-19 16:55 | disposition home or self-care (01) ==
LOC: H.OPSURG 10:46
PROVIDERS: ATTEND Specialist
DX: R16.1 Splenomegaly, not elsewhere classified (principal); I48.91 Unspecified atrial fibrillation; J44.9 Chronic obstructive pulmonary disease, unspecified; E78.5 Hyperlipidemia, unspecified; E11.22 Type 2 diabetes mellitus with diabetic chronic kidney disease; I12.9 Hypertensive chronic kidney disease with stage 1 through stage 4 chronic kidney disease, or unspecified chronic kidney disease; N18.3 Chronic kidney disease, stage 3 (moderate)
CPT/HCPCS: 49180; 82948; 88305; J3010; J7120

== ENCOUNTER 2017-11-06 08:10 | Inpatient (IN) | payer MEDICARE, BC ==
[2017-11-06 08:24] VITALS: BMI 28.7
[2017-11-06] MEDS ORDERED: Dexamethasone 10 MG in Sodium Chloride 0.9% 50 ML IVPB ONE (09:02)
[2017-11-06] MEDS ORDERED: DiphenhydrAMINE 50 mg/ml Inj IVP SCH (09:15)
[2017-11-06] MEDS ORDERED: Lidocaine/Prilocaine CREAM 5GM TP SCH (09:15)
[2017-11-06] MEDS ORDERED: Acetaminophen 650mg/20.3ml solution UD PO SCH (09:15)
--- NOTE | 2017-11-06 09:49 | CP.PCM.HP ---
<Sara Anna - Last Filed: 11/06/17 15:50> History of Present Illness - History of Present Illness History of Present Illness: 77 yr old f with medical history including A fib, CAD (CABG triple bypass), COPD , hypercholesterolemia, hypothyroidism, HTN, DM type 2, CHF who was diagnosed with MDS in 2016 presents today for Chemotherapy treatment via Dr. Nunes. She reports suffering from weakness the past few months without any other associated symptoms. She was sent to get a CT scan of her abdomen which demonstrated splenomegaly and nodules. 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 Patient is here today for careful watch during her chemotherapy session, to acquire adequate hydration to prevent tumor lysis syndrome. She denies F/C/N/V/D and pain. She reports she has residual cough from a previous illness a few weeks ago and states that it is productive only of clear sputum. Surgical history: Bilateral Knee replacement. Present on Admission - Present on Admission Any Indicators Present on Admission: No History of DVT/PE: No History of Uncontrolled Diabetes: No Urinary Catheter: No Decubitus Ulcer Present: No Review of Systems - EENT Additional comments: Cough- productive of clear sputum. - Respiratory Respiratory: Cough (productive of clear sputum. Few week duration. ) Past Patient History - Past Medical History & Family History Past Medical History?: Yes - Past Social History Smoking Status: Former Smoker - CARDIAC Hx Cardiac Disorders: Yes Hx Hypercholesterolemia: Yes Hx Hypertension: Yes Other/Comment: Triple bypass 16 years ago - PULMONARY Hx Respiratory Disorders: Yes Hx Chronic Obstructive Pulmonary Disease (COPD): Yes Hx Pneumonia: Yes - HEENT Hx HEENT Problems: Yes Other/Comment: Right ear -deaf - RENAL Hx Chronic Kidney Disease: No - ENDOCRINE/METABOLIC Hx Endocrine Disorders: Yes Hx Diabetes Mellitus Type 2: Yes Hx Hypothyroidism: Yes - HEMATOLOGICAL/ONCOLOGICAL Hx Blood Disorders: Yes Hx AIDS: No Hx Anemia: Yes Hx Blood Transfusions: Yes Hx Blood Transfusion Reaction: No Hx Chemotherapy: Yes (azacitidine started 02/13/2017) Hx Human Immunodeficiency Virus (HIV): No Other/Comment: MDS-MYELODYSPLASTIC SYNDROME - INTEGUMENTARY Hx Dermatological Problems: No - MUSCULOSKELETAL/RHEUMATOLOGICAL Hx Falls: Yes - GASTROINTESTINAL Hx Gastrointestinal Disorders: Yes Hx Gastritis: Yes Hx Hemorrhoids: Yes - GENITOURINARY/GYNECOLOGICAL Hx Genitourinary Disorders: No - PSYCHIATRIC Hx Emotional Abuse: No Hx Physical Abuse: No - SURGICAL HISTORY Hx Surgeries: Yes Hx Angiogram: Yes Hx Coronary Artery Bypass Graft: Yes Hx Coronary Stent: Yes Hx Joint Replacement: Yes (BILATERAL KNEE) Hx Orthopedic Surgery: Yes (b/l knee replacement) Other/Comment: Double knee replacement 6 years ago. Portacath placement - ANESTHESIA Hx Anesthesia: Yes Hx Anesthesia Reactions: No Hx Malignant Hyperthermia: No Meds Allergies/Adverse Reactions: Allergies Allergy/AdvReac Type Severity Reaction Status Date / Time No Known Allergies Allergy Verified 10/19/17 11:23 Physical Exam - Constitutional Appears: Non-toxic, Older Than Stated Age (Skin color: appears pale. ) - Head Exam Head Exam: NORMAL INSPECTION - Eye Exam Eye Exam: Normal appearance (+ opacity in left eye. ) - ENT Exam ENT Exam: Mucous Membranes Moist - Neck Exam Neck exam: Positive for: Normal Inspection. Negative for: Lymphadenopathy, Tenderness, Thyromegaly - Respiratory Exam Respiratory Exam: Clear to Auscultation Bilateral, Prolonged Expiratory Phase, Wheezes (expiratory wheeze. ). absent: Decreased Breath Sounds, Rales, Rhonchi , Respiratory Distress, Stridor - Cardiovascular Exam Cardiovascular Exam: Tachycardia, Irregular Rhythm, +S1, +S2. absent: Clicks, Diastolic murmur, Gallop, Rubs, Systolic Murmur - GI/Abdominal Exam GI & Abdominal Exam: Distended, Normal Bowel Sounds, Organomegaly (+ splenomegaly), Soft. absent: Bruit, Firm, Guarding, Pulsatile Mass, Rebound, Rigid, Tenderness - Extremities Exam Extremities exam: Positive for: normal capillary refill, pedal edema (+ 3 dependent edema bilateral lower extremities; chronic erythema noted on bilateral lower extremities. ), pedal pulses present. Negative for: calf tenderness, joint swelling, tenderness - Neurological Exam Neurological exam: Alert, Oriented x3 - Psychiatric Exam Psychiatric exam: Normal Affect, Normal Mood - Skin Skin Exam: Dry, Intact, Normal Color, Warm Results - Vital Signs Recent Vital Signs: Last Vital Signs Temp 98.7 F 11/06/17 09:07 Pulse 109 H 11/06/17 09:47 Resp 20 11/06/17 09:07 BP 146/63 11/06/17 09:47 Pulse Ox 96 11/06/17 09:07 - Labs Result Diagrams: 11/06/17 08:50 11/06/17 11:05 Assessment & Plan (1) B-cell lymphoma Status: Acute (2) MDS (myelodysplastic syndrome) Status: Acute (3) COPD (chronic obstructive pulmonary disease) Status: Acute (4) Atrial fibrillation Status: Acute Priority: High (5) Anemia Status: Acute Priority: High (6) Hypothyroid Status: Acute (7) DVT prophylaxis Status: Acute - Assessment and Plan (Free Text) Assessment: 77 yr old f with medical history including HTN, DM type 2, CHF who was diagnosed with MDS in 2016 presents today for Chemotherapy treatment via Dr. Nunes. Patient denies any current complaints. Plan: 1. 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 -Chemotherapy over two day duration. -Dr. Nunes following. - Gentle hydration due to CHF and to prevent tumor lysis syndrome. 2. MDS: - Chemotherapy over two day duration. - Dr. Nunes is following. 3. Atrial Fibrillation - EKG ordered. -Continue rate control and anticoagulation: Metoprolol 50mg po BID ; Xarelto 15mg HS 4. COPD -Chest Xray ordered because of cough -Current regimen: - Dr. Vazquez following. 5. Hypothyroidism: - continue levothyroxine 50mcg po daily -TSH ordered. 6. DVT prophylaxis: - Continue Xarelto. - Date & Time Date: 11/06/17 Time: 09:00 <Malu Berrios - Last Filed: 11/06/17 16:03> Results - Vital Signs Recent Vital Signs: Last Vital Signs Temp 97.8 F 11/06/17 15:46 Pulse 110 H 11/06/17 15:46 Resp 18 11/06/17 15:46 BP 153/72 H 11/06/17 15:46 Pulse Ox 96 11/06/17 15:46 - Labs Result Diagrams: 11/06/17 08:50 11/06/17 11:05 Labs: Laboratory Results - last 24 hr 11/06/17 11/06/17 11/06/17 08:50 09:58 10:36 WBC 4.2 L RBC 2.89 L Hgb 7.6 L D Hct 23.2 L MCV 80.3 L MCH 26.2 L MCHC 32.6 L RDW 18.6 H Plt Count 106 L D MPV 9.5 Neut % (Auto) 69.3 Lymph % (Auto) 14.0 L [place] % (Auto) 13.6 H Eos % (Auto) 2.2 Baso % (Auto) 0.9 Neut # (Auto) 2.9 Lymph # (Auto) 0.6 L [place] # (Auto) 0.6 Eos # (Auto) 0.1 Baso # (Auto) 0.0 PT 15.2 H INR 1.4 H APTT 34.6 Sodium Potassium Chloride Carbon Dioxide Anion Gap BUN Creatinine Est GFR ( Amer) Est GFR (Non-Af Amer) POC Glucose (mg/dL) 279 H Random Glucose Uric Acid Calcium Total Bilirubin AST ALT Alkaline Phosphatase Lactate Dehydrogenase Total Protein Albumin Globulin Albumin/Globulin Ratio TSH 3rd Generation Crossmatch BBK History Checked 11/06/17 11/06/17 11/06/17 11:00 11:05 12:10 WBC RBC Hgb Hct MCV MCH MCHC RDW Plt Count MPV Neut % (Auto) Lymph % (Auto) [place] % (Auto) Eos % (Auto) Baso % (Auto) Neut # (Auto) Lymph # (Auto) [place] # (Auto) Eos # (Auto) Baso # (Auto) PT INR APTT Sodium 124 L Potassium 3.3 L Chloride 89 L Carbon Dioxide 25 Anion Gap 13 BUN 14 Creatinine 1.2 Est GFR ( Amer) 53 Est GFR (Non-Af Amer) 44 POC Glucose (mg/dL) 224 H Random Glucose 249 H Uric Acid 4.8 Calcium 9.2 Total Bilirubin 1.0 AST 17 ALT 29 Alkaline Phosphatase 98 Lactate Dehydrogenase 337 Total Protein 4.7 L Albumin 2.8 L Globulin 2.0 L Albumin/Globulin Ratio 1.4 TSH 3rd Generation Crossmatch BBK History Checked 11/06/17 11/06/17 11/06/17 12:32 14:55 15:36 WBC RBC Hgb Hct MCV MCH MCHC RDW Plt Count MPV Neut % (Auto) Lymph % (Auto) [place] % (Auto) Eos % (Auto) Baso % (Auto) Neut # (Auto) Lymph # (Auto) [place] # (Auto) Eos # (Auto) Baso # (Auto) PT INR APTT Sodium Potassium Chloride Carbon Dioxide Anion Gap BUN Creatinine Est GFR ( Amer) Est GFR (Non-Af Amer) POC Glucose (mg/dL) 296 H Random Glucose Uric Acid Calcium Total Bilirubin AST ALT Alkaline Phosphatase Lactate Dehydrogenase Total Protein Albumin Globulin Albumin/Globulin Ratio TSH 3rd Generation 6.23 H Crossmatch See Detail BBK History Checked Patient has bt Attending/Attestation - Attestation I have personally seen and examined this patient.: Yes I have fully participated in the care of the patient.: Yes I have reviewed all pertinent clinical information: Yes Notes (Text): Additional Note: ( Correction) Atrial Fibrillation, with Chronic - rate not adequately controlled - cont Metoprolol, -cont Xarelto COPD , exacerbation - pt has wheezing , rhonchi -Pt is on IV Steroids - Started on Atrovent by Dr Vazquez -Pulm consulted
[2017-11-06] MEDS: Sodium Chloride 0.9% 500 ML IV SCH ×3 (10:27→17:39)
[2017-11-06] MEDS ORDERED: DiphenhydrAMINE 50 mg/ml Inj ONE ×2 (10:40→14:18)
--- NOTE | 2017-11-06 10:43 | CP.PCM.PN ---
Subjective - Date & Time of Evaluation Date of Evaluation: 11/06/17 Time of Evaluation: 10:23 - Subjective Subjective: This is a 77 yrs old female who was diagnosed to have a MDS around January 2017 , and was given azacitidine 5 days in a row q 28 days. Shr responded extremely well to the vidaza, and all her counts improved to almost normal levels. However over the last 4 months she was often sick and would need her treatments to be postponed. She got very weak, and a ct scan showed a large spleen with some nodules. She had a biopsy of one of these nodules and was found found to have a B. cell lymphoma. She will need a fair amount of hydration during the chemo to prevent tumor lysis . Because of her h/o chronic CHF the hydration will have to done very slowly, and the chemo given over 2 days. She has a past history of Cronic CHF, HTN, DM type 2, Objective - Vital Signs/Intake and Output Vital Signs (last 24 hours): Temp Pulse Resp BP Pulse Ox 98.7 F 109 H 20 146/63 96 11/06/17 09:07 11/06/17 09:47 11/06/17 09:07 11/06/17 09:47 11/06/17 09:07 - Medications Medications: Current Medications Acetaminophen (Tylenol 650mg/20.3ml Solution Ud) 650 mg PO ONCE RUIZ Stop: 11/06/17 17:00 Dexamethasone (Decadron Inj) 10 mg IVP ONCE RUIZ Stop: 11/06/17 17:00 Diphenhydramine HCl (Benadryl) 25 mg IVP ONCE RUIZ Stop: 11/06/17 17:00 Famotidine (Pepcid) 20 mg IVP STAT RUIZ Stop: 11/06/17 17:00 Sodium Chloride (Sodium Chloride 0.9%) 500 mls @ 100 mls/hr IV .Q5H RUIZ Ondansetron HCl 16 mg/ Sodium (Chloride) 58 mls @ 116 mls/hr IVPB ONCE RUIZ Stop: 11/06/17 17:00 Rituximab 630 mg/ Sodium (Chloride) 313 mls @ 0 mls/hr IV ONCE ONE PRN Reason: As Directed Stop: 11/06/17 09:05 Insulin Human Lispro (Humalog) 0 units SC ACHS RUIZ PRN Reason: Protocol Lidocaine/Prilocaine (Lidocaine/Prilocaine 2.5%-2.5%) 1 applic TP ONCE RUIZ Stop: 11/06/17 17:00 - Additional Findings Additional findings: Physical exam; Alert,well orientd in no acute disttess neck; Supple, no adenopathy Chest; Clear, no rales or rhonchi Heart; RSR, No murmur, Abd; Soft, spleen 15cm, EXT; 3+ pedal edema. below the left costal margin. Assessment and Plan - Assessment and Plan (Free Text) Assessment: impression; B cell lymphoma.Most probably marginal zone lymphoma. Plan: Plan; Pt is to receive rituxan,cytoxan, and vinvristine. Since the response is fast, she can develop a tumor lysis syndrome , so she needs hydration. Because of her h/o CHF she needs these fluids to be given slowly. I am holding her adriamycin because,of her cardiac history, and the rest will be given over 2 days
[2017-11-06 10:57] LABS: INR 1.4 (0.9-1.2); PARTIAL THROMBOPLASTIN TIME 34.6 Seconds (25.6-37.1); PROTHROMBIN TIME 15.2 Seconds (9.8-13.1)
--- NOTE | 2017-11-06 11:02 | CP.PCM.CON ---
Past Patient History - Past Medical History & Family History Past Medical History?: Yes - Past Social History Smoking Status: Former Smoker - CARDIAC Hx Cardiac Disorders: Yes Hx Hypercholesterolemia: Yes Hx Hypertension: Yes Other/Comment: Triple bypass 16 years ago - PULMONARY Hx Respiratory Disorders: Yes Hx Chronic Obstructive Pulmonary Disease (COPD): Yes Hx Pneumonia: Yes - HEENT Hx HEENT Problems: Yes Other/Comment: Right ear -deaf - RENAL Hx Chronic Kidney Disease: No - ENDOCRINE/METABOLIC Hx Endocrine Disorders: Yes Hx Diabetes Mellitus Type 2: Yes Hx Hypothyroidism: Yes - HEMATOLOGICAL/ONCOLOGICAL Hx Blood Disorders: Yes Hx AIDS: No Hx Anemia: Yes Hx Blood Transfusions: Yes Hx Blood Transfusion Reaction: No Hx Chemotherapy: Yes (azacitidine started 02/13/2017) Hx Human Immunodeficiency Virus (HIV): No Other/Comment: MDS-MYELODYSPLASTIC SYNDROME - INTEGUMENTARY Hx Dermatological Problems: No - MUSCULOSKELETAL/RHEUMATOLOGICAL Hx Falls: Yes - GASTROINTESTINAL Hx Gastrointestinal Disorders: Yes Hx Gastritis: Yes Hx Hemorrhoids: Yes - GENITOURINARY/GYNECOLOGICAL Hx Genitourinary Disorders: No - PSYCHIATRIC Hx Emotional Abuse: No Hx Physical Abuse: No - SURGICAL HISTORY Hx Surgeries: Yes Hx Angiogram: Yes Hx Coronary Artery Bypass Graft: Yes Hx Coronary Stent: Yes Hx Joint Replacement: Yes (BILATERAL KNEE) Hx Orthopedic Surgery: Yes (b/l knee replacement) Other/Comment: Double knee replacement 6 years ago. Portacath placement - ANESTHESIA Hx Anesthesia: Yes Hx Anesthesia Reactions: No Hx Malignant Hyperthermia: No Meds Allergies/Adverse Reactions: Allergies Allergy/AdvReac Type Severity Reaction Status Date / Time No Known Allergies Allergy Verified 10/19/17 11:23 - Medications Medications: Current Medications Acetaminophen (Tylenol 325mg Tab) 650 mg PO ONCE RUIZ Stop: 11/06/17 17:00 Dexamethasone (Decadron Inj) 10 mg IVP ONCE RUIZ Stop: 11/06/17 17:00 Diphenhydramine HCl (Benadryl) 25 mg IVP ONCE RUIZ Stop: 11/06/17 17:00 Famotidine (Pepcid) 20 mg IVP STAT RUIZ Stop: 11/06/17 17:00 Sodium Chloride (Sodium Chloride 0.9%) 500 mls @ 100 mls/hr IV .Q5H RUIZ Last Admin: 11/06/17 10:27 Dose: 100 mls/hr Ondansetron HCl 16 mg/ Sodium (Chloride) 58 mls @ 116 mls/hr IVPB ONCE RUIZ Stop: 11/06/17 17:00 Last Admin: 11/06/17 10:29 Dose: 116 mls/hr Rituximab 630 mg/ Sodium (Chloride) 313 mls @ 26.083 mls/hr IV ONCE RUIZ PRN Reason: As Directed Stop: 11/06/17 17:50 Insulin Human Lispro (Humalog) 0 units SC ACHS RUIZ PRN Reason: Protocol Lidocaine/Prilocaine (Lidocaine/Prilocaine 2.5%-2.5%) 1 applic TP ONCE RUIZ Stop: 11/06/17 17:00 Prednisone (Prednisone Tab) 20 mg PO QID [facility] Prednisone (Prednisone Tab) 5 mg PO DAILY [facility] Stop: 11/10/17 09:01 Results - Vital Signs Recent Vital Signs: Last Vital Signs Temp 98.7 F 11/06/17 09:07 Pulse 109 H 11/06/17 09:47 Resp 20 11/06/17 09:07 BP 146/63 11/06/17 09:47 Pulse Ox 96 11/06/17 09:07 - Labs Labs: Laboratory Results - last 24 hr 11/06/17 10:36 PT 15.2 H INR 1.4 H APTT 34.6 Assessment & Plan - Date & Time Date: 11/06/17 Time: 11:01
[2017-11-06 11:18] LABS: BASO % 0.9 % (0.0-2.0); EOS # 0.1 K/uL (0.0-0.7); EOS % 2.2 % (0.0-4.0); HEMOGLOBIN 7.6 g/dL (12.0-16.0); LYMPH # 0.6 K/uL (1.0-4.3); MEAN CELL VOLUME 80.3 fl (81.0-99.0); MEAN CORPUSCULAR HEMOGLOBIN 26.2 pg (27.0-31.0); MEAN CORPUSCULAR HGB CONC 32.6 g/dL (33.0-37.0); MEAN PLATELET VOLUME 9.5 fl (7.2-11.7); MONO # 0.6 K/uL (0.0-0.8); MONO % 13.6 % (0.0-10.0); NEUT # 2.9 K/uL (1.8-7.0); NEUT % 69.3 % (50.0-75.0); RBC 2.89 Mil/uL (3.80-5.20); RED CELL DISTRIBUTION WIDTH 18.6 % (11.5-14.5); WHITE BLOOD COUNT 4.2 K/uL (4.8-10.8)
[2017-11-06 11:28] LABS: URIC ACID 4.8 mg/Dl (2.2-7.5)
[2017-11-06 11:52] LABS: ALB/GLOB RATIO 1.4 (1.0-2.1); ALBUMIN 2.8 g/dL (3.5-5.0); CALCIUM 9.2 mg/dL (8.4-10.2)
[2017-11-06] MEDS: Insulin Lispro (humaLOG) 100 Units/ml Inj SC SCH ×3 (12:26→22:00)
--- NOTE | 2017-11-06 13:24 | RAD ---
Date of service: 11/06/2017 HISTORY: Cough. COMPARISON: 10/09/2017 FINDINGS: LUNGS: No active pulmonary disease. PLEURA: No significant pleural effusion identified, no pneumothorax apparent. CARDIOVASCULAR: No radiographic findings to suggest acute or significant cardiovascular disease. Venous access catheter in stable, satisfactory position. OSSEOUS STRUCTURES: No significant abnormalities. VISUALIZED UPPER ABDOMEN: Normal. OTHER FINDINGS: None. IMPRESSION: No active disease. No significant interval change compared to the prior examination(s).
[2017-11-06] MEDS ORDERED: methylPREDNISolone 125 MG in Sodium Chloride 0.9% 50 ML IVPB STA (14:14)
[2017-11-06] MEDS ORDERED: DiphenhydrAMINE 50 mg/ml Inj IVP STA ×2 (14:15→14:27)
[2017-11-06] MEDS: Ipratropium 0.02% Inhal Soln (0.5 mg/2.5 ml) UD IH SCH ×3 (14:30→19:02)
[2017-11-06] MEDS ORDERED: Potassium Chloride 20 mEq ER Tab PO ONE (18:35)
[2017-11-06 21:38] LABS: HEPATITIS C ANTIBODY NEGATIVE (NEGATIVE)
[2017-11-07] MEDS: Levothyroxine 50 MCG TAB PO SCH (06:09)
[2017-11-07] MEDS: Insulin Lispro (humaLOG) 100 Units/ml Inj SC SCH ×3 (06:37→21:48)
[2017-11-07] MEDS: Ipratropium 0.02% Inhal Soln (0.5 mg/2.5 ml) UD IH SCH ×4 (07:17→19:12)
[2017-11-07] MEDS ORDERED: APREPITANT 125 MG CAP PO SCH (08:07)
[2017-11-07] MEDS ORDERED: Dexamethasone 10 MG in Sodium Chloride 0.9% 50 ML IVPB ONE (08:07)
[2017-11-07] MEDS: Cholecalciferol 1,000 INTLU TAB PO SCH (08:27)
[2017-11-07] MEDS: Multivitamin With Minerals Tab PO SCH (08:27)
[2017-11-07] MEDS ORDERED: DiphenhydrAMINE 50 mg/ml Inj IVP SCH (08:45)
--- NOTE | 2017-11-07 08:56 | CP.PCM.PN ---
<Sara Anna - Last Filed: 11/07/17 11:30> Subjective - Date & Time of Evaluation Date of Evaluation: 11/07/17 Time of Evaluation: 09:00 - Subjective Subjective: Patient seen and examined at bedside with Dr. Berrios. She is sitting comfortably and enjoying her breakfast. She reports that for the first time in a while she has excellent appetite and was able to stomach some eggs this morning. Pt is going for a Duplex bilateral lower extremity today to r/o DVT since the patient has +3 pitting edema. She denies F/C/N/V/D headaches, vision changes, chest pain , shortness of breath, and leg pain. Patient had reaction to Rituximab: chills. She was given Benadryl and steroids and felt better. Objective - Vital Signs/Intake and Output Vital Signs (last 24 hours): Temp Pulse Resp BP Pulse Ox 97.3 F L 98 H 18 165/84 H 96 11/07/17 05:10 11/07/17 08:34 11/07/17 05:10 11/07/17 08:34 11/07/17 00:00 Intake and Output: 11/07/17 11/07/17 06:59 18:59 Intake Total 475 50 Balance 475 50 - Medications Medications: Current Medications Aspirin (Ecotrin) 81 mg PO DAILY [facility] Last Admin: 11/07/17 08:27 Dose: 81 mg Atorvastatin Calcium (Lipitor) 10 mg PO [facility] Cholecalciferol (Vitamin D) 1,000 intlu PO DAILY [facility] Last Admin: 11/07/17 08:27 Dose: 1,000 intlu Dexamethasone (Decadron Inj) 10 mg IVP ONCE [facility] Stop: 11/07/17 17:00 Diphenhydramine HCl (Benadryl) 25 mg IVP ONCE [facility] Stop: 11/07/17 17:00 Home Med (Cu/Se/Vit A/Vit C/Vit E/Zinc [Ocuvite]) 1 tab PO DAILY [facility] Sodium Chloride (Sodium Chloride 0.9%) 500 mls @ 50 mls/hr IV .Q10H [facility] Last Admin: 11/06/17 17:39 Dose: Not Given Ondansetron HCl 16 mg/ Sodium (Chloride) 58 mls @ 116 mls/hr IVPB ONCE [facility] Stop: 11/07/17 17:00 Sodium Chloride (Sodium Chloride 0.9%) 500 mls @ 60 mls/hr IV .Q8H20M [facility] Cyclophosphamide 1,265 mg/ (Sodium Chloride) 250 mls @ 0 mls/hr IV ONCE ONE PRN Reason: As Directed Stop: 11/07/17 08:13 Vincristine Sulfate 2 mg/ (Sodium Chloride) 52 mls @ 0 mls/hr IV ONCE ONE PRN Reason: As Directed Stop: 11/07/17 08:15 Insulin Human Lispro (Humalog) 0 units SC ACHS [facility] PRN Reason: Protocol Last Admin: 11/07/17 06:37 Dose: 4 units Ipratropium [place] (Atrovent) 0.5 mg IH RQID [facility] Last Admin: 11/07/17 07:17 Dose: 0.5 mg Levothyroxine Sodium (Synthroid) 50 mcg PO DAILY@0630 [facility] Last Admin: 11/07/17 06:09 Dose: 50 mcg Metoprolol Tartrate (Lopressor) 50 mg PO Q12 [facility] Last Admin: 11/07/17 08:34 Dose: 50 mg Multivitamins/Minerals (Therapeutic-M Tab) 1 tab PO DAILY [facility] Last Admin: 11/07/17 08:27 Dose: 1 tab Prednisone (Prednisone Tab) 20 mg PO QID [facility] Last Admin: 11/07/17 08:27 Dose: 20 mg Prednisone (Prednisone Tab) 5 mg PO DAILY [facility] Stop: 11/10/17 09:01 Last Admin: 11/07/17 08:30 Dose: 5 mg Rivaroxaban (Xarelto) 15 mg PO QPM [facility] PRN Reason: Protocol Last Admin: 11/06/17 17:49 Dose: 15 mg - Labs Labs: 11/06/17 08:50 11/06/17 11:05 PT 15.2 Seconds (9.8-13.1) H 11/06/17 10:36 INR 1.4 (0.9-1.2) H 11/06/17 10:36 APTT 34.6 Seconds (25.6-37.1) 11/06/17 10:36 - Constitutional Appears: Non-toxic, No Acute Distress, Older Than Stated Age, Chronically Ill - Head Exam Head Exam: NORMAL INSPECTION - Eye Exam Eye Exam: Normal appearance. absent: Periorbital tenderness - ENT Exam ENT Exam: Mucous Membranes Moist, Normal Oropharynx - Neck Exam Neck Exam: Normal Inspection. absent: Lymphadenopathy, Tenderness, Thyromegaly - Respiratory Exam Respiratory Exam: Rales. absent: Chest Wall Tenderness, Rhonchi, Wheezes, Respiratory Distress, Stridor - Cardiovascular Exam Cardiovascular Exam: Tachycardia, Irregular Rhythm, +S1, +S2. absent: Clicks, Diastolic murmur, Gallop, Rubs, Murmur - GI/Abdominal Exam GI & Abdominal Exam: Distended, Soft, Normal Bowel Sounds, Organomegaly (+ splenomegaly). absent: Firm, Guarding, Rigid, Tenderness, Pulsatile Mass, Rebound - Extremities Exam Extremities Exam: Pedal Edema (+ 3 bilateral pitting edema. ). absent: Calf Tenderness, Joint Swelling, Tenderness - Back Exam Back Exam: NORMAL INSPECTION - Neurological Exam Neurological Exam: Alert, Awake, Oriented x3 - Psychiatric Exam Psychiatric exam: Normal Affect, Normal Mood - Skin Skin Exam: Dry, Intact, Pallor, Warm Assessment and Plan (1) B-cell lymphoma Status: Acute (2) MDS (myelodysplastic syndrome) Status: Acute (3) Anemia Status: Acute (4) Pancytopenia Status: Acute (5) Chronic a-fib Status: Acute (6) COPD exacerbation Status: Acute (7) Hyponatremia Status: Acute (8) Hypokalemia Status: Acute (9) Hypothyroid Status: Acute (10) DVT prophylaxis Status: Acute - Assessment and Plan (Free Text) Assessment: 77 yr old f with medical history including HTN, DM type 2, CHF who was diagnosed with MDS in 2016 presented or Chemotherapy treatment (2 day duration) via Dr. Nunes. Patient denies any current complaints. Plan: 1. 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 - Chemotherapy over two day duration, this is day two 11/07/17. - Dr. Nunes following. - Gentle hydration due to CHF and to prevent tumor lysis syndrome. 2. MDS: - Chemotherapy over two day duration, this is day two 11/07/17. - Dr. Nunes is following. 3. Anemia: - patient was transfused 2 units of pRBC 11/06/17. - H/H 11/07/17: 4. Pancytopenia secondary to MDS -continue to monitor - transfuse prn - Hematology following. 5. Chronic Atrial Fibrillation -Continue rate control: Metoprolol 50mg po BID -Continue anticoagulation: Xarelto 15mg HS 6. COPD exacerbation -Chest Xray: negative for active disease. -Current regimen: Atrovent QID as per pulm consult. -Pt on steroids: Prednisone 5 mg D and Prednisone 20mg QID. - Pulmonology following. 7. Hyponatremia - possibly secondary to hypothyroidism (TSH: 6.23), Pseudohyponatremia (glucose level yesterday was 279), or SIADH - Patient on NS via IV. 8. Hypothyroidism: -continue levothyroxine 50mcg po daily -TSH: 6.23 9. DVT prophylaxis: - Duplex of bilateral lower extremities: negative for DVT. - Continue Xarelto. <Malu Berrios - Last Filed: 11/07/17 16:56> Objective - Vital Signs/Intake and Output Vital Signs (last 24 hours): Temp Pulse Resp BP Pulse Ox 97 F L 93 H 20 137/84 97 11/07/17 16:22 11/07/17 16:22 11/07/17 16:22 11/07/17 16:22 11/07/17 16:22 Intake and Output: 11/07/17 11/07/17 06:59 18:59 Intake Total 475 50 Balance 475 50 - Medications Medications: Current Medications Allopurinol (Zyloprim) 300 mg PO DAILY [facility] Aspirin (Ecotrin) 81 mg PO DAILY [facility] Last Admin: 11/07/17 08:27 Dose: 81 mg Atorvastatin Calcium (Lipitor) 10 mg PO HS [facility] Cholecalciferol (Vitamin D) 1,000 intlu PO DAILY [facility] Last Admin: 11/07/17 08:27 Dose: 1,000 intlu Dexamethasone (Decadron Inj) 10 mg IVP ONCE [facility] Stop: 11/07/17 17:00 Last Admin: 11/07/17 10:28 Dose: 10 mg Diphenhydramine HCl (Benadryl) 25 mg IVP ONCE [facility] Stop: 11/07/17 17:00 Last Admin: 11/07/17 10:28 Dose: 25 mg Home Med (Cu/Se/Vit A/Vit C/Vit E/Zinc [Ocuvite]) 1 tab PO DAILY [facility] Sodium Chloride (Sodium Chloride 0.9%) 500 mls @ 50 mls/hr IV .Q10H [facility] Last Admin: 11/06/17 17:39 Dose: Not Given Ondansetron HCl 16 mg/ Sodium (Chloride) 58 mls @ 116 mls/hr IVPB ONCE [facility] Stop: 11/07/17 17:00 Last Admin: 11/07/17 09:55 Dose: 116 mls/hr Sodium Chloride (Sodium Chloride 0.9%) 500 mls @ 60 mls/hr IV .Q8H20M [facility] Last Admin: 11/07/17 09:55 Dose: 60 mls/hr Cyclophosphamide 1,265 mg/ (Sodium Chloride) 250 mls @ 166.667 mls/hr IV ONCE [facility] PRN Reason: As Directed Stop: 11/07/17 18:00 Last Admin: 11/07/17 12:16 Dose: 166.667 mls/hr Vincristine Sulfate 2 mg/ (Sodium Chloride) 52 mls @ 208 mls/hr IV ONCE [facility] PRN Reason: As Directed Stop: 11/07/17 18:00 Last Admin: 11/07/17 16:20 Dose: 208 mls/hr Insulin Detemir (Levemir) 10 units SC HS [facility] Insulin Human Lispro (Humalog) 0 units SC ACHS [facility] PRN Reason: Protocol Ipratropium [place] (Atrovent) 0.5 mg IH RQID [facility] Last Admin: 11/07/17 15:33 Dose: 0.5 mg Levothyroxine Sodium (Synthroid) 50 mcg PO DAILY@0630 [facility] Last Admin: 11/07/17 06:09 Dose: 50 mcg Metoprolol Tartrate (Lopressor) 50 mg PO Q12 [facility] Last Admin: 11/07/17 08:34 Dose: 50 mg Multivitamins/Minerals (Therapeutic-M Tab) 1 tab PO DAILY [facility] Last Admin: 11/07/17 08:27 Dose: 1 tab Prednisone (Prednisone Tab) 20 mg PO QID [facility] Last Admin: 11/07/17 08:27 Dose: 20 mg Prednisone (Prednisone Tab) 5 mg PO DAILY [facility] Stop: 11/10/17 09:01 Last Admin: 11/07/17 08:30 Dose: 5 mg Rivaroxaban (Xarelto) 15 mg PO QPM [facility] PRN Reason: Protocol Last Admin: 11/06/17 17:49 Dose: 15 mg - Labs Labs: 11/07/17 12:55 11/07/17 10:20 PT 15.2 Seconds (9.8-13.1) H 11/06/17 10:36 INR 1.4 (0.9-1.2) H 11/06/17 10:36 APTT 34.6 Seconds (25.6-37.1) 11/06/17 10:36 Attending/Attestation - Attestation I have personally seen and examined this patient.: Yes I have fully participated in the care of the patient.: Yes I have reviewed all pertinent clinical information, including history, physical exam and plan: Yes Notes (Text): Thrombocytopenia - Platelet decreased to 20 today - d/c Xarelto for now Uncontrolled DM type II with Hyperglycemia sec to Steroids -start Levemir 10 units q hs - increase Lispro coverage to moderate protocol
[2017-11-07] MEDS ORDERED: Patient's Own Med (Cu/Se/Vit A/Vit C/Vit E/Zinc [Ocuvite] 1 TAB) PO SCH (09:00)
[2017-11-07] MEDS ORDERED: SODIUM CHLORIDE 0.45% IV SCH (09:15)
[2017-11-07] MEDS ORDERED: CYCLOPHOSPHAMIDE IV SCH (09:15)
--- NOTE | 2017-11-07 09:39 | US ---
Date of service: 11/07/2017 PROCEDURE: Bilateral lower extremity venous duplex Doppler. HISTORY: leg swelling COMPARISON: None available. TECHNIQUE: Bilateral common femoral, superficial femoral, popliteal and posterior tibial veins were evaluated. Flow was assessed with color Doppler, compressibility, assessment of phasic flow and augmentation response. FINDINGS: COMMON FEMORAL VEIN: Right CFV: Unremarkable. Left CFV: Unremarkable. SUPERFICIAL FEMORAL VEIN: Right SFV: Unremarkable. Left SFV: Unremarkable. POPLITEAL VEIN: Right Popliteal: Unremarkable. Left Popliteal: Unremarkable. POSTERIOR TIBIAL VEIN: Right PTV: Unremarkable. Left PTV: Unremarkable. OTHER FINDINGS: Diffuse bilateral lower extremity edema. IMPRESSION: No evidence of deep venous thrombosis. Communication of results: Study completed 09:06. I provided the referring physician with verbal results at 09:36
--- NOTE | 2017-11-07 09:46 | CP.PCM.PN ---
Subjective - Date & Time of Evaluation Date of Evaluation: 11/07/17 Time of Evaluation: 09:38 - Subjective Subjective: Pt is feeling better after the 1st day of chemo and 2 units of blood. . She had a slight reaction to the Rituximab with some chills, but stopped after the benadryl and steroids were given. She was fairly well hydrated, and is on the allopurinol. Today she will get her cytoan, oncovin and prednisone. Objective - Vital Signs/Intake and Output Vital Signs (last 24 hours): Temp Pulse Resp BP Pulse Ox 97.9 F 98 H 20 165/84 H 96 11/07/17 08:57 11/07/17 08:57 11/07/17 08:57 11/07/17 08:57 11/07/17 00:00 Intake and Output: 11/07/17 11/07/17 06:59 18:59 Intake Total 475 50 Balance 475 50 - Medications Medications: Current Medications Aspirin (Ecotrin) 81 mg PO DAILY [facility] Last Admin: 11/07/17 08:27 Dose: 81 mg Atorvastatin Calcium (Lipitor) 10 mg PO HS [facility] Cholecalciferol (Vitamin D) 1,000 intlu PO DAILY [facility] Last Admin: 11/07/17 08:27 Dose: 1,000 intlu Dexamethasone (Decadron Inj) 10 mg IVP ONCE [facility] Stop: 11/07/17 17:00 Diphenhydramine HCl (Benadryl) 25 mg IVP ONCE [facility] Stop: 11/07/17 17:00 Home Med (Cu/Se/Vit A/Vit C/Vit E/Zinc [Ocuvite]) 1 tab PO DAILY [facility] Sodium Chloride (Sodium Chloride 0.9%) 500 mls @ 50 mls/hr IV .Q10H [facility] Last Admin: 11/06/17 17:39 Dose: Not Given Ondansetron HCl 16 mg/ Sodium (Chloride) 58 mls @ 116 mls/hr IVPB ONCE [facility] Stop: 11/07/17 17:00 Sodium Chloride (Sodium Chloride 0.9%) 500 mls @ 60 mls/hr IV .Q8H20M [facility] Cyclophosphamide 1,265 mg/ (Sodium Chloride) 250 mls @ 166.667 mls/hr IV ONCE [facility] PRN Reason: As Directed Stop: 11/07/17 18:00 Vincristine Sulfate 2 mg/ (Sodium Chloride) 52 mls @ 208 mls/hr IV ONCE [facility] PRN Reason: As Directed Stop: 11/07/17 18:00 Insulin Human Lispro (Humalog) 0 units SC ACHS [facility] PRN Reason: Protocol Last Admin: 11/07/17 06:37 Dose: 4 units Ipratropium [place] (Atrovent) 0.5 mg IH RQID [facility] Last Admin: 11/07/17 07:17 Dose: 0.5 mg Levothyroxine Sodium (Synthroid) 50 mcg PO DAILY@0630 [facility] Last Admin: 11/07/17 06:09 Dose: 50 mcg Metoprolol Tartrate (Lopressor) 50 mg PO Q12 [facility] Last Admin: 11/07/17 08:34 Dose: 50 mg Multivitamins/Minerals (Therapeutic-M Tab) 1 tab PO DAILY [facility] Last Admin: 11/07/17 08:27 Dose: 1 tab Prednisone (Prednisone Tab) 20 mg PO QID [facility] Last Admin: 11/07/17 08:27 Dose: 20 mg Prednisone (Prednisone Tab) 5 mg PO DAILY [facility] Stop: 11/10/17 09:01 Last Admin: 11/07/17 08:30 Dose: 5 mg Rivaroxaban (Xarelto) 15 mg PO QPM [facility] PRN Reason: Protocol Last Admin: 11/06/17 17:49 Dose: 15 mg - Labs Labs: 11/06/17 08:50 11/06/17 11:05 PT 15.2 Seconds (9.8-13.1) H 11/06/17 10:36 INR 1.4 (0.9-1.2) H 11/06/17 10:36 APTT 34.6 Seconds (25.6-37.1) 11/06/17 10:36
--- NOTE | 2017-11-07 09:49 | CARD ---
APPROVED REPORT Date of service: 11/06/2017 EKG Measurement Heart [id number] <Conclusion> Atrial fibrillation with rapid ventricular response Abnormal ECG
[2017-11-07] MEDS: Sodium Chloride 0.9% 500 ML IV SCH ×3 (09:55→19:06)
--- NOTE | 2017-11-07 11:25 | CP.PCM.PN ---
Subjective - Date & Time of Evaluation Date of Evaluation: 11/07/17 Time of Evaluation: 11:25 Objective - Vital Signs/Intake and Output Vital Signs (last 24 hours): Temp Pulse Resp BP Pulse Ox 97.9 F 98 H 20 165/84 H 96 11/07/17 08:57 11/07/17 08:57 11/07/17 08:57 11/07/17 09:46 11/07/17 00:00 Intake and Output: 11/06/17 11/07/17 23:59 11:59 Intake Total 977 525 Balance 977 525 - Medications Medications: Current Medications Allopurinol (Zyloprim) 300 mg PO DAILY [facility] Aspirin (Ecotrin) 81 mg PO DAILY [facility] Last Admin: 11/07/17 08:27 Dose: 81 mg Atorvastatin Calcium (Lipitor) 10 mg PO HS [facility] Cholecalciferol (Vitamin D) 1,000 intlu PO DAILY [facility] Last Admin: 11/07/17 08:27 Dose: 1,000 intlu Dexamethasone (Decadron Inj) 10 mg IVP ONCE [facility] Stop: 11/07/17 17:00 Last Admin: 11/07/17 10:28 Dose: 10 mg Diphenhydramine HCl (Benadryl) 25 mg IVP ONCE [facility] Stop: 11/07/17 17:00 Last Admin: 11/07/17 10:28 Dose: 25 mg Home Med (Cu/Se/Vit A/Vit C/Vit E/Zinc [Ocuvite]) 1 tab PO DAILY [facility] Sodium Chloride (Sodium Chloride 0.9%) 500 mls @ 50 mls/hr IV .Q10H [facility] Last Admin: 11/06/17 17:39 Dose: Not Given Ondansetron HCl 16 mg/ Sodium (Chloride) 58 mls @ 116 mls/hr IVPB ONCE [facility] Stop: 11/07/17 17:00 Last Admin: 11/07/17 09:55 Dose: 116 mls/hr Sodium Chloride (Sodium Chloride 0.9%) 500 mls @ 60 mls/hr IV .Q8H20M [facility] Last Admin: 11/07/17 09:55 Dose: 60 mls/hr Cyclophosphamide 1,265 mg/ (Sodium Chloride) 250 mls @ 166.667 mls/hr IV ONCE [facility] PRN Reason: As Directed Stop: 11/07/17 18:00 Vincristine Sulfate 2 mg/ (Sodium Chloride) 52 mls @ 208 mls/hr IV ONCE [facility] PRN Reason: As Directed Stop: 11/07/17 18:00 Insulin Human Lispro (Humalog) 0 units SC ACHS [facility] PRN Reason: Protocol Last Admin: 11/07/17 06:37 Dose: 4 units Ipratropium [place] (Atrovent) 0.5 mg IH RQID [facility] Last Admin: 11/07/17 11:17 Dose: 0.5 mg Levothyroxine Sodium (Synthroid) 50 mcg PO DAILY@0630 [facility] Last Admin: 11/07/17 06:09 Dose: 50 mcg Metoprolol Tartrate (Lopressor) 50 mg PO Q12 [facility] Last Admin: 11/07/17 08:34 Dose: 50 mg Multivitamins/Minerals (Therapeutic-M Tab) 1 tab PO DAILY [facility] Last Admin: 11/07/17 08:27 Dose: 1 tab Prednisone (Prednisone Tab) 20 mg PO QID [facility] Last Admin: 11/07/17 08:27 Dose: 20 mg Prednisone (Prednisone Tab) 5 mg PO DAILY [facility] Stop: 11/10/17 09:01 Last Admin: 11/07/17 08:30 Dose: 5 mg Rivaroxaban (Xarelto) 15 mg PO QPM [facility] PRN Reason: Protocol Last Admin: 11/06/17 17:49 Dose: 15 mg - Labs Labs: 11/06/17 08:50 11/06/17 11:05 PT 15.2 Seconds (9.8-13.1) H 11/06/17 10:36 INR 1.4 (0.9-1.2) H 11/06/17 10:36 APTT 34.6 Seconds (25.6-37.1) 11/06/17 10:36
[2017-11-07 11:26] LABS: BASO % 0.2 % (0.0-2.0); EOS % 0.5 % (0.0-4.0); HEMOGLOBIN 10.7 g/dL (12.0-16.0); LYMPH # 0.3 K/uL (1.0-4.3); LYMPH % 5.6 % (20.0-40.0); MEAN CELL VOLUME 80.7 fl (81.0-99.0); MEAN CORPUSCULAR HEMOGLOBIN 26.9 pg (27.0-31.0); MEAN CORPUSCULAR HGB CONC 33.3 g/dL (33.0-37.0); MEAN PLATELET VOLUME 9.7 fl (7.2-11.7); MONO # 0.2 K/uL (0.0-0.8); MONO % 3.6 % (0.0-10.0); NEUT # 5.3 K/uL (1.8-7.0); NEUT % 90.1 % (50.0-75.0); RBC 3.98 Mil/uL (3.80-5.20); RED CELL DISTRIBUTION WIDTH 18.5 % (11.5-14.5); WHITE BLOOD COUNT 5.9 K/uL (4.8-10.8)
[2017-11-07 11:44] LABS: PLATELET COUNT 30 K/uL (130-400)
[2017-11-07 12:10] LABS: ALB/GLOB RATIO 1.4 (1.0-2.1); ALBUMIN 2.9 g/dL (3.5-5.0); CALCIUM 8.9 mg/dL (8.4-10.2); LYMPHOCYTE 8 % (20-50); MONOCYTE 6 % (0-10); NEUTROPHIL 86 % (42-75); PLATELET ESTIMATE DECREASED (NORMAL); TOTAL CELLS COUNTED 100
[2017-11-07 12:11] LABS: ANISOCYTOSIS SLIGHT
[2017-11-07 12:26] LABS: HYPOCHROMIC SLIGHT; OVALOCYTES SLIGHT; SCHISTOCYTES SLIGHT; TEARDROP CELLS SLIGHT
[2017-11-07] MEDS ORDERED: Magnesium Sulfate 1 GM in Dextrose 5% In Water 100 ML IVPB ONE (13:00)
[2017-11-07 13:25] LABS: HEMOGLOBIN 11.2 g/dL (12.0-16.0); MEAN CELL VOLUME 80.6 fl (81.0-99.0); MEAN CORPUSCULAR HEMOGLOBIN 26.7 pg (27.0-31.0); MEAN CORPUSCULAR HGB CONC 33.1 g/dL (33.0-37.0); RBC 4.2 Mil/uL (3.80-5.20); RED CELL DISTRIBUTION WIDTH 18.6 % (11.5-14.5); WHITE BLOOD COUNT 8.4 K/uL (4.8-10.8)
[2017-11-07] MEDS ORDERED: Insulin Detemir 100 Units/ml Inj SC STA (16:48)
[2017-11-07] MEDS ORDERED: Insulin Detemir 100 Units/ml Inj SC SCH (22:00)
[2017-11-08] MEDS: Sodium Chloride 0.9% 500 ML IV SCH ×3 (00:30→09:19)
[2017-11-08] MEDS: Levothyroxine 50 MCG TAB PO SCH (05:43)
[2017-11-08] MEDS: Ipratropium 0.02% Inhal Soln (0.5 mg/2.5 ml) UD IH SCH ×2 (07:23→11:35)
[2017-11-08] MEDS: Insulin Lispro (humaLOG) 100 Units/ml Inj SC SCH ×2 (08:00→12:03)
[2017-11-08 08:10] LABS: EOS % 0.3 % (0.0-4.0); LYMPH # 0.3 K/uL (1.0-4.3); LYMPH % 3.7 % (20.0-40.0); MEAN CELL VOLUME 79.8 fl (81.0-99.0); MEAN CORPUSCULAR HEMOGLOBIN 27.3 pg (27.0-31.0); MEAN CORPUSCULAR HGB CONC 34.2 g/dL (33.0-37.0); MEAN PLATELET VOLUME 9.2 fl (7.2-11.7); MONO # 0.2 K/uL (0.0-0.8); MONO % 2.1 % (0.0-10.0); NEUT # 7.4 K/uL (1.8-7.0); NEUT % 93.9 % (50.0-75.0); PLATELET COUNT 69 K/uL (130-400); RBC 4.02 Mil/uL (3.80-5.20); WHITE BLOOD COUNT 7.9 K/uL (4.8-10.8)
[2017-11-08 08:11] VITALS: BP 153/95; PULSE 110; RESP 20; TEMP 97.3; O2SAT 98
[2017-11-08 08:25] LABS: ALB/GLOB RATIO 1.3 (1.0-2.1); ALBUMIN 2.9 g/dL (3.5-5.0); CALCIUM 8.8 mg/dL (8.4-10.2)
[2017-11-08] MEDS ORDERED: Insulin Detemir 100 Units/ml Inj SC ONE (09:00)
[2017-11-08] MEDS ORDERED: Magnesium Sulfate 1 GM in Dextrose 5% In Water 100 ML IVPB ONE (09:00)
[2017-11-08] MEDS: Multivitamin With Minerals Tab PO SCH (09:02)
[2017-11-08] MEDS: Cholecalciferol 1,000 INTLU TAB PO SCH (09:02)
[2017-11-08] MEDS ORDERED: Magnesium Sulfate 1 gm in D5W 1 GM/100 ML BAG IVPB ONE (09:30)
[2017-11-08 11:09] LABS: PLATELET COUNT MANUAL 62 K/uL (130-400)
--- NOTE | 2017-11-08 11:13 | CP.PCM.CON ---
History of Present Illness - History of Present Illness History of Present Illness: this patient over 77 years of age female I was called to see her for hyponatremia. Patient reported that the she has a previously hyponatremia before. And patient was diagnosed to have what appears to be lymphoma as noted in the history and physical examination: medical history including A fib, CAD (CABG triple bypass), COPD, hypercholesterolemia, hypothyroidism, HTN, DM type 2, CHF who was diagnosed with MDS in 2016 presents today for Chemotherapy treatment via Dr. Nunes. She reports suffering from weakness the past few months without any other associated symptoms. She was sent to get a CT scan of her abdomen which demonstrated splenomegaly and nodules. 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 past surgical history patient has CABG about 15 years ago and also she has bilateral knees replacement Social history not contributory Review of Systems - Constitutional Constitutional: Anorexia. absent: Chills - EENT Nose/Mouth/Throat: absent: Epistaxis, Sore Throat - Cardiovascular Cardiovascular: Edema. absent: Chest Pain, Dyspnea - Respiratory Respiratory: Cough, Dyspnea on Exertion - Gastrointestinal Gastrointestinal: absent: Abdominal Pain - Neurological Neurological: absent: Abnormal Movements, Confusion, Lack of Coordination - Endocrine Endocrine: Fatigue - Hematologic/Lymphatic Hematologic: absent: Easy Bleeding Past Patient History - Past Medical History & Family History Past Medical History?: Yes - Past Social History Smoking Status: Former Smoker - CARDIAC Hx Cardiac Disorders: Yes Hx Hypercholesterolemia: Yes Hx Hypertension: Yes Other/Comment: Triple bypass 16 years ago - PULMONARY Hx Respiratory Disorders: Yes Hx Chronic Obstructive Pulmonary Disease (COPD): Yes Hx Pneumonia: Yes - HEENT Hx HEENT Problems: Yes Other/Comment: Right ear -deaf - RENAL Hx Chronic Kidney Disease: No - ENDOCRINE/METABOLIC Hx Endocrine Disorders: Yes Hx Diabetes Mellitus Type 2: Yes Hx Hypothyroidism: Yes - HEMATOLOGICAL/ONCOLOGICAL Hx Blood Disorders: Yes Hx AIDS: No Hx Anemia: Yes Hx Blood Transfusions: Yes Hx Blood Transfusion Reaction: No Hx Chemotherapy: Yes (azacitidine started 02/13/2017) Hx Human Immunodeficiency Virus (HIV): No Other/Comment: MDS-MYELODYSPLASTIC SYNDROME - INTEGUMENTARY Hx Dermatological Problems: No - MUSCULOSKELETAL/RHEUMATOLOGICAL Hx Falls: Yes - GASTROINTESTINAL Hx Gastrointestinal Disorders: Yes Hx Gastritis: Yes Hx Hemorrhoids: Yes - GENITOURINARY/GYNECOLOGICAL Hx Genitourinary Disorders: No - PSYCHIATRIC Hx Emotional Abuse: No Hx Physical Abuse: No - SURGICAL HISTORY Hx Surgeries: Yes Hx Angiogram: Yes Hx Coronary Artery Bypass Graft: Yes Hx Coronary Stent: Yes Hx Joint Replacement: Yes (BILATERAL KNEE) Hx Orthopedic Surgery: Yes (b/l knee replacement) Other/Comment: Double knee replacement 6 years ago. Portacath placement - ANESTHESIA Hx Anesthesia: Yes Hx Anesthesia Reactions: No Hx Malignant Hyperthermia: No Meds Allergies/Adverse Reactions: Allergies Allergy/AdvReac Type Severity Reaction Status Date / Time No Known Allergies Allergy Verified 10/19/17 11:23 - Medications Medications: Current Medications Allopurinol (Zyloprim) 300 mg PO DAILY [facility] Last Admin: 11/08/17 09:02 Dose: 300 mg Aspirin (Ecotrin) 81 mg PO DAILY [facility] Last Admin: 11/08/17 09:02 Dose: 81 mg Atorvastatin Calcium (Lipitor) 10 mg PO HS [facility] Last Admin: 11/07/17 21:43 Dose: 10 mg Cholecalciferol (Vitamin D) 1,000 intlu PO DAILY [facility] Last Admin: 11/08/17 09:02 Dose: 1,000 intlu Furosemide (Lasix) 20 mg IVP DAILY [facility] Last Admin: 11/08/17 09:08 Dose: 20 mg Sodium Chloride (Sodium Chloride 0.9%) 500 mls @ 50 mls/hr IV .Q10H [facility] Last Admin: 11/08/17 09:03 Dose: 50 mls/hr Sodium Chloride (Sodium Chloride 0.9%) 500 mls @ 60 mls/hr IV .Q8H20M [facility] Last Admin: 11/08/17 09:19 Dose: 60 mls/hr Insulin Detemir (Levemir) 15 units SC HS [facility] Insulin Human Lispro (Humalog) 0 units SC ACHS [facility] PRN Reason: Protocol Last Admin: 11/08/17 08:00 Dose: 10 units Ipratropium [place] (Atrovent) 0.5 mg IH RQID [facility] Last Admin: 11/08/17 07:23 Dose: 0.5 mg Levothyroxine Sodium (Synthroid) 50 mcg PO DAILY@0630 [facility] Last Admin: 11/08/17 05:43 Dose: 50 mcg Metoprolol Tartrate (Lopressor) 50 mg PO Q12 [facility] Last Admin: 11/08/17 09:08 Dose: 50 mg Multivitamins/Minerals (Therapeutic-M Tab) 1 tab PO DAILY [facility] Last Admin: 11/08/17 09:02 Dose: 1 tab Prednisone (Prednisone Tab) 20 mg PO QID [facility] Last Admin: 11/08/17 09:02 Dose: 20 mg Prednisone (Prednisone Tab) 5 mg PO DAILY [facility] Stop: 11/10/17 09:01 Last Admin: 11/08/17 09:01 Dose: 5 mg Physical Exam - Constitutional Appears: No Acute Distress - ENT Exam ENT Exam: Mucous Membranes Moist - Respiratory Exam Respiratory Exam: Rales, NORMAL BREATHING PATTERN. absent: Chest Wall Tenderness - Cardiovascular Exam Cardiovascular Exam: Irregular Rhythm. absent: Gallop, Rubs - GI/Abdominal Exam GI & Abdominal Exam: Normal Bowel Sounds. absent: Guarding - Extremities Exam Extremities exam: Positive for: pedal edema. Negative for: calf tenderness - Back Exam Back exam: absent: CVA tenderness (L), CVA tenderness (R) - Neurological Exam Neurological exam: Alert - Psychiatric Exam Psychiatric exam: Normal Affect Results - Vital Signs Recent Vital Signs: Last Vital Signs Temp 97.3 F L 11/08/17 08:10 Pulse 110 H 11/08/17 09:08 Resp 20 11/08/17 08:10 BP 153/95 H 11/08/17 09:08 Pulse Ox 98 11/08/17 08:10 - Labs Result Diagrams: 11/08/17 07:24 11/08/17 07:24 Labs: Laboratory Results - last 24 hr 11/06/17 11/06/17 11/07/17 11:00 11:00 10:20 WBC 5.9 RBC 3.98 Hgb 10.7 L D Hct 32.1 L MCV 80.7 L MCH 26.9 L MCHC 33.3 RDW 18.5 H Plt Count 30 L* D Manual Plt Count MPV 9.7 Neut % (Auto) 90.1 H Lymph % (Auto) 5.6 L [place] % (Auto) 3.6 Eos % (Auto) 0.5 Baso % (Auto) 0.2 Neut # (Auto) 5.3 Lymph # (Auto) 0.3 L [place] # (Auto) 0.2 Eos # (Auto) 0.0 Baso # (Auto) 0.0 Neutrophils % (Manual) 86 H Lymphocytes % (Manual) 8 L Monocytes % (Manual) 6 Platelet Estimate Decreased L Hypochromasia (manual) Slight Anisocytosis (manual) Slight Tear Drop Cells Slight Ovalocytes Slight Schistocytes Slight Sodium Potassium Chloride Carbon Dioxide Anion Gap BUN Creatinine Est GFR ( Amer) Est GFR (Non-Af Amer) POC Glucose (mg/dL) Random Glucose Uric Acid Calcium Phosphorus Magnesium Total Bilirubin AST ALT Alkaline Phosphatase Total Protein Albumin Globulin Albumin/Globulin Ratio Urine Osmolality Hep Bs Antibody, Quant <5 L Hepatitis C Antibody Non reactive Hep C Ab Signal/Cutoff 0.00 11/07/17 11/07/17 11/07/17 10:20 11:36 11:39 WBC RBC Hgb Hct MCV MCH MCHC RDW Plt Count Manual Plt Count MPV Neut % (Auto) Lymph % (Auto) [place] % (Auto) Eos % (Auto) Baso % (Auto) Neut # (Auto) Lymph # (Auto) [place] # (Auto) Eos # (Auto) Baso # (Auto) Neutrophils % (Manual) Lymphocytes % (Manual) Monocytes % (Manual) Platelet Estimate Hypochromasia (manual) Anisocytosis (manual) Tear Drop Cells Ovalocytes Schistocytes Sodium 124 L Potassium 4.5 Chloride 93 L Carbon Dioxide 20 L Anion Gap 16 BUN 25 H Creatinine 1.3 H Est GFR ( Amer) 48 Est GFR (Non-Af Amer) 40 POC Glucose (mg/dL) 350 H Random Glucose 373 H Uric Acid Calcium 8.9 Phosphorus Magnesium Total Bilirubin 2.7 H AST 22 ALT 39 Alkaline Phosphatase 104 Total Protein 5.0 L Albumin 2.9 L Globulin 2.1 L Albumin/Globulin Ratio 1.4 Urine Osmolality 296 L Hep Bs Antibody, Quant Hepatitis C Antibody Hep C Ab Signal/Cutoff 11/07/17 11/07/17 11/07/17 11:48 12:55 15:44 WBC 8.4 RBC 4.20 Hgb 11.2 L Hct 33.8 L MCV 80.6 L MCH 26.7 L MCHC 33.1 RDW 18.6 H Plt Count 34 L Manual Plt Count 20 L* MPV Neut % (Auto) Lymph % (Auto) [place] % (Auto) Eos % (Auto) Baso % (Auto) Neut # (Auto) Lymph # (Auto) [place] # (Auto) Eos # (Auto) Baso # (Auto) Neutrophils % (Manual) Lymphocytes % (Manual) Monocytes % (Manual) Platelet Estimate Hypochromasia (manual) Anisocytosis (manual) Tear Drop Cells Ovalocytes Schistocytes Sodium Potassium Chloride Carbon Dioxide Anion Gap BUN Creatinine Est GFR ( Amer) Est GFR (Non-Af Amer) POC Glucose (mg/dL) 447 H* Random Glucose Uric Acid Calcium Phosphorus 3.6 Magnesium 1.0 L* Total Bilirubin AST ALT Alkaline Phosphatase Total Protein Albumin Globulin Albumin/Globulin Ratio Urine Osmolality Hep Bs Antibody, Quant Hepatitis C Antibody Hep C Ab Signal/Cutoff 11/07/17 11/08/17 11/08/17 21:36 06:13 07:24 WBC 7.9 RBC 4.02 Hgb 11.0 L Hct 32.1 L MCV 79.8 L MCH 27.3 MCHC 34.2 RDW 19.0 H Plt Count 69 L D Manual Plt Count 62 L MPV 9.2 Neut % (Auto) 93.9 H Lymph % (Auto) 3.7 L [place] % (Auto) 2.1 Eos % (Auto) 0.3 Baso % (Auto) 0.0 Neut # (Auto) 7.4 H Lymph # (Auto) 0.3 L [place] # (Auto) 0.2 Eos # (Auto) 0.0 Baso # (Auto) 0.0 Neutrophils % (Manual) Lymphocytes % (Manual) Monocytes % (Manual) Platelet Estimate Hypochromasia (manual) Anisocytosis (manual) Tear Drop Cells Ovalocytes Schistocytes Sodium Potassium Chloride Carbon Dioxide Anion Gap BUN Creatinine Est GFR ( Amer) Est GFR (Non-Af Amer) POC Glucose (mg/dL) 468 H* 448 H* Random Glucose Uric Acid Calcium Phosphorus Magnesium Total Bilirubin AST ALT Alkaline Phosphatase Total Protein Albumin Globulin Albumin/Globulin Ratio Urine Osmolality Hep Bs Antibody, Quant Hepatitis C Antibody Hep C Ab Signal/Cutoff 11/08/17 07:24 WBC RBC Hgb Hct MCV MCH MCHC RDW Plt Count Manual Plt Count MPV Neut % (Auto) Lymph % (Auto) [place] % (Auto) Eos % (Auto) Baso % (Auto) Neut # (Auto) Lymph # (Auto) [place] # (Auto) Eos # (Auto) Baso # (Auto) Neutrophils % (Manual) Lymphocytes % (Manual) Monocytes % (Manual) Platelet Estimate Hypochromasia (manual) Anisocytosis (manual) Tear Drop Cells Ovalocytes Schistocytes Sodium 120 L* Potassium 4.7 Chloride 91 L Carbon Dioxide 18 L Anion Gap 16 BUN 36 H Creatinine 1.5 H Est GFR ( Amer) 41 Est GFR (Non-Af Amer) 34 POC Glucose (mg/dL) Random Glucose 434 H* Uric Acid 6.0 Calcium 8.8 Phosphorus 3.7 Magnesium 1.4 L Total Bilirubin 1.4 H AST 17 ALT 37 Alkaline Phosphatase 92 Total Protein 5.1 L Albumin 2.9 L Globulin 2.2 Albumin/Globulin Ratio 1.3 Urine Osmolality Hep Bs Antibody, Quant Hepatitis C Antibody Hep C Ab Signal/Cutoff Assessment & Plan (1) B-cell lymphoma Status: Acute (2) COPD (chronic obstructive pulmonary disease) Status: Acute (3) Chronic a-fib Status: Acute (4) Hyponatremia Assessment and Plan: hyponatremia and and hypervolemia serum sodium around 120 rule out SIADH also she appeared to have acute kidney injury etiology not clear whether related to recent chemotherapy perhaps. Diabetes mellitus And addition to the diagnosis of lymphoma with status post chemotherapy My recommendation Samsca 30 mg stat Spot urine for sodium osmolality and creatinine DC sodium chloride for now Watch serum sodium not to go up more than 10 mEq for the next 24 hours Status: Acute
[2017-11-08 11:59] LABS: ANISOCYTOSIS SLIGHT; BANDS 9 % (0-2); LYMPHOCYTE 6 % (20-50); MONOCYTE 2 % (0-10); NEUTROPHIL 83 % (42-75); PLATELET ESTIMATE DECREASED (NORMAL); TOTAL CELLS COUNTED 100
[2017-11-08 12:00] LABS: HYPOCHROMIC SLIGHT; LARGE PLATELETS PRESENT; OVALOCYTES SLIGHT; SCHISTOCYTES SLIGHT; TEARDROP CELLS SLIGHT; TOXIC GRANULATION PRESENT
[2017-11-08] MEDS ORDERED: Tolvaptan 15 MG TAB PO ONE (12:00)
--- NOTE | 2017-11-08 12:12 | CP.PCM.DIS ---
<Sara Anna - Last Filed: 11/08/17 15:00> Provider - Provider Date of Admission: 11/06/17 08:42 Attending physician: Malu Berrios MD Primary care physician: Houston Vazquez MD Consults: Dr. Manju Allen. Time Spent in preparation of Discharge (in minutes): 20 Diagnosis - Discharge Diagnosis (1) B-cell lymphoma Status: Acute Comment: Chemotherapy over two day duration completed. Dr. Nunes will continue to follow. Patient will be returning to infusion center tomorrow. (2) MDS (myelodysplastic syndrome) Status: Acute Comment: Chemotherapy completed over two day course. Dr. Nunes will continue to follow. (3) Anemia Status: Acute Priority: High Comment: Patient's H/H : 32.1. Pt was transfused two units of pRBC's during her hospital stay. (4) Pancytopenia Status: Acute Comment: Dr. Nunes will continue to follow. Patient is returning to Transfusion center tomorrow, will repeat CBC tomorrow am. (5) Chronic a-fib Status: Acute Comment: Continue current management Metoprolol 50mg po BID. Xarelto discontinued due to thrombocytopenia. (6) COPD exacerbation Status: Acute Comment: Combivent ordered for patient use prn. (7) Hyponatremia Status: Acute Comment: Dr. Castorena ordered Tolvaptan, given to patient. Sodium ob repeat BMP: 130.9 (8) Hypokalemia Status: Acute Comment: Resolved. (9) Hypothyroid Status: Acute Comment: Continue home medication: Levothyroxine 50mcg daily. (10) DVT prophylaxis Status: Acute Comment: Patient was on xarelto. D/c'ed for home. Hospital Course - Lab Results Lab Results: Most Recent Lab Values WBC 7.9 K/uL (4.8-10.8) 11/08/17 07:24 RBC 4.02 Mil/uL (3.80-5.20) 11/08/17 07:24 Hgb 11.0 g/dL (12.0-16.0) L 11/08/17 07:24 Hct 32.1 % (34.0-47.0) L 11/08/17 07:24 MCV 79.8 fl (81.0-99.0) L 11/08/17 07:24 MCH 27.3 pg (27.0-31.0) 11/08/17 07:24 MCHC 34.2 g/dL (33.0-37.0) 11/08/17 07:24 RDW 19.0 % (11.5-14.5) H 11/08/17 07:24 Plt Count 69 K/uL (130-400) L D 11/08/17 07:24 Manual Plt Count 62 K/uL (130-400) L 11/08/17 07:24 MPV 9.2 fl (7.2-11.7) 11/08/17 07:24 Neut % (Auto) 93.9 % (50.0-75.0) H 11/08/17 07:24 Lymph % (Auto) 3.7 % (20.0-40.0) L 11/08/17 07:24 [place] % (Auto) 2.1 % (0.0-10.0) 11/08/17 07:24 Eos % (Auto) 0.3 % (0.0-4.0) 11/08/17 07:24 Baso % (Auto) 0.0 % (0.0-2.0) 11/08/17 07: Neut # (Auto) 7.4 K/uL (1.8-7.0) H 11/08/17 07:24 Lymph # (Auto) 0.3 K/uL (1.0-4.3) L 11/08/17 07:24 [place] # (Auto) 0.2 K/uL (0.0-0.8) 11/08/17 07:24 Eos # (Auto) 0.0 K/uL (0.0-0.7) 11/08/17 07:24 Baso # (Auto) 0.0 K/uL (0.0-0.2) 11/08/17 07:24 Neutrophils % (Manual) 83 % (42-75) H 11/08/17 07:24 Band Neutrophils % 9 % (0-2) H 11/08/17 07:24 Lymphocytes % (Manual) 6 % (20-50) L 11/08/17 07:24 Monocytes % (Manual) 2 % (0-10) 11/08/17 07:24 Toxic Granulation Present 11/08/17 07:24 Platelet Estimate Decreased (NORMAL) L 11/08/17 07:24 Large Platelets Present 11/08/17 07:24 Hypochromasia (manual) Slight 11/08/17 07:24 Anisocytosis (manual) Slight 11/08/17 07:24 Tear Drop Cells Slight 11/08/17 07:24 Ovalocytes Slight 11/08/17 07:24 Schistocytes Slight 11/08/17 07:24 PT 15.2 Seconds (9.8-13.1) H 11/06/17 10:36 INR 1.4 (0.9-1.2) H 11/06/17 10:36 APTT 34.6 Seconds (25.6-37.1) 11/06/17 10:36 Sodium 120 mmol/l (132-148) L* 11/08/17 07:24 Potassium 4.7 MMOL/L (3.6-5.0) 11/08/17 07:24 Chloride 91 mmol/L (98-107) L 11/08/17 07:24 Carbon Dioxide 18 mmol/L (22-30) L 11/08/17 07:24 Anion Gap 16 (10-20) 11/08/17 07:24 BUN 36 mg/dl (7-17) H 11/08/17 07:24 Creatinine 1.5 mg/dl (0.7-1.2) H 11/08/17 07:24 Est GFR ( Amer) 41 11/08/17 07:24 Est GFR (Non-Af Amer) 34 11/08/17 07:24 POC Glucose (mg/dL) 487 mg/dL (65-110) H* 11/08/17 11:09 Random Glucose 434 mg/dL (65-105) H* 11/08/17 07:24 Serum Osmolality 280 mosm/kg (272-300) 11/06/17 18:50 Uric Acid 6.0 mg/Dl (2.2-7.5) 11/08/17 07:24 Calcium 8.8 mg/dL (8.4-10.2) 11/08/17 07:24 Phosphorus 3.7 mg/dl (2.5-4.5) 11/08/17 07:24 Magnesium 1.4 MG/DL (1.6-2.3) L 11/08/17 07:24 Total Bilirubin 1.4 mg/dl (0.2-1.3) H 11/08/17 07:24 AST 17 U/L (14-36) 11/08/17 07:24 ALT 37 U/L (9-52) 11/08/17 07:24 Alkaline Phosphatase 92 U/L (38-126) 11/08/17 07:24 Lactate Dehydrogenase 337 U/L (313-618) 11/06/17 11:00 Total Protein 5.1 G/DL (6.3-8.2) L 11/08/17 07:24 Albumin 2.9 g/dL (3.5-5.0) L 11/08/17 07:24 Globulin 2.2 gm/dL (2.2-3.9) 11/08/17 07:24 Albumin/Globulin Ratio 1.3 (1.0-2.1) 11/08/17 07:24 TSH 3rd Generation 6.23 mIU/ML (0.46-4.68) H 11/06/17 12:32 Urine Osmolality 296 mosm/kg (300-1000) L 11/07/17 11:36 Hep Bs Antibody Negative (NEGATIVE) 11/06/17 11:00 Hep Bs Antibody, Quant <5 mIU/mL (>or=10) L 11/06/17 11:00 Hep B Core IgM Ab Negative (NEGATIVE) 11/06/17 11:00 Hepatitis C Antibody Non reactive (Non Reactive) 11/06/17 11:00 Hep C Ab Signal/Cutoff 0.00 Ratio (<1.0) 11/06/17 11:00 Blood Type A POSITIVE 11/06/17 14:55 Antibody Screen Negative 11/06/17 14:55 Crossmatch See Detail 11/06/17 14:55 BBK History Checked Patient has bt 11/06/17 14:55 - Hospital Course Hospital Course: 77 yr old f with medical history including HTN, DM type 2, CHF who was diagnosed with MDS in 2016 presented or Chemotherapy treatment (2 day duration) via Dr. Nunes. Over her hospital stay the patient suffered from a reaction to Rituxamab which resolved with Prednisone and Benadryl. Patient had no complaints otherwise in the hospital. She is being discharged today but will be returning to the transfusion center tomorrow morning where a CBC will be drawn in the morning. Discharge Exam - Head Exam Head Exam: NORMAL INSPECTION - Eye Exam Eye Exam: Normal appearance - ENT Exam ENT Exam: Mucous Membranes Moist, Normal Oropharynx - Respiratory Exam Respiratory Exam: Prolonged Expiratory Phase, NORMAL BREATHING PATTERN. absent : Chest Wall Tenderness, Decreased Breath Sounds, Rales, Rhonchi, Wheezes, Stridor - Cardiovascular Exam Cardiovascular Exam: Irregular Rhythm, +S1, +S2. absent: Clicks, Diastolic murmur, Gallop, Rubs, Systolic Murmur - GI/Abdominal Exam GI & Abdominal Exam: Distended, Normal Bowel Sounds, Organomegaly (+ splenmegaly ), Soft. absent: Firm, Guarding, Rebound, Rigid, Tenderness - Extremities Exam Extremities exam: pedal edema (+3 pitting edema bilateral extremities. ) - Back Exam Back exam: NORMAL INSPECTION. absent: paraspinal tenderness - Neurological Exam Neurological exam: Alert, Normal Gait, Oriented x3 - Psychiatric Exam Psychiatric exam: Normal Affect, Normal Mood - Skin Skin Exam: Dry, Intact, Normal Color, Warm Discharge Plan - Discharge Medications Prescriptions: Albuterol/Ipratropium [Combivent Respimat] 2 puff IH Q6 PRN #1 puff PRN Reason: Wheezing Allopurinol [Zyloprim] 100 mg PO DAILY #30 tab - Follow Up Plan Condition: GOOD Disposition: HOME/ ROUTINE Instructions: Chemotherapy, Neutropenia, Nausea and Vomiting With Cancer Treatment, Cyclophosphamide, Rituximab, Vincristine Additional Instructions: follow up with primary MD pratt keep appt with DR Luz Nunes at the Infusion center tomorrow rpt labs in am Referrals: Houston Vazquez MD [Primary Care Provider] - Raul Nunes MD [Staff Provider] - <Malu Berrios - Last Filed: 11/08/17 17:29> Provider - Provider Date of Admission: 11/06/17 08:42 Attending physician: Malu Berrios MD Primary care physician: Houston Vazquez MD Hospital Course - Lab Results Lab Results: Most Recent Lab Values WBC 7.9 K/uL (4.8-10.8) 11/08/17 07:24 RBC 4.02 Mil/uL (3.80-5.20) 11/08/17 07:24 Hgb 11.0 g/dL (12.0-16.0) L 11/08/17 07:24 Hct 32.1 % (34.0-47.0) L 11/08/17 07:24 MCV 79.8 fl (81.0-99.0) L 11/08/17 07:24 MCH 27.3 pg (27.0-31.0) 11/08/17 07:24 MCHC 34.2 g/dL (33.0-37.0) 11/08/17 07:24 RDW 19.0 % (11.5-14.5) H 11/08/17 07:24 Plt Count 69 K/uL (130-400) L D 11/08/17 07:24 Manual Plt Count 62 K/uL (130-400) L 11/08/17 07:24 MPV 9.2 fl (7.2-11.7) 11/08/17 07:24 Neut % (Auto) 93.9 % (50.0-75.0) H 11/08/17 07:24 Lymph % (Auto) 3.7 % (20.0-40.0) L 11/08/17 07:24 [place] % (Auto) 2.1 % (0.0-10.0) 11/08/17 07:24 Eos % (Auto) 0.3 % (0.0-4.0) 11/08/17 07:24 Baso % (Auto) 0.0 % (0.0-2.0) 11/08/17 07:24 Neut # (Auto) 7.4 K/uL (1.8-7.0) H 11/08/17 07:24 Lymph # (Auto) 0.3 K/uL (1.0-4.3) L 11/08/17 07:24 [place] # (Auto) 0.2 K/uL (0.0-0.8) 11/08/17 07:24 Eos # (Auto) 0.0 K/uL (0.0-0.7) 11/08/17 07:24 Baso # (Auto) 0.0 K/uL (0.0-0.2) 11/08/17 07:24 Neutrophils % (Manual) 83 % (42-75) H 11/08/17 07:24 Band Neutrophils % 9 % (0-2) H 11/08/17 07:24 Lymphocytes % (Manual) 6 % (20-50) L 11/08/17 07:24 Monocytes % (Manual) 2 % (0-10) 11/08/17 07:24 Toxic Granulation Present 11/08/17 07:24 Platelet Estimate Decreased (NORMAL) L 11/08/17 07:24 Large Platelets Present 11/08/17 07:24 Hypochromasia (manual) Slight 11/08/17 07:24 Anisocytosis (manual) Slight 11/08/17 07:24 Tear Drop Cells Slight 11/08/17 07:24 Ovalocytes Slight 11/08/17 07:24 Schistocytes Slight 11/08/17 07:24 PT 15.2 Seconds (9.8-13.1) H 11/06/17 10:36 INR 1.4 (0.9-1.2) H 11/06/17 10:36 APTT 34.6 Seconds (25.6-37.1) 11/06/17 10:36 Sodium 125 mmol/l (132-148) L 11/08/17 14:02 Potassium 4.2 MMOL/L (3.6-5.0) 11/08/17 14:02 Chloride 92 mmol/L (98-107) L 11/08/17 14:02 Carbon Dioxide 20 mmol/L (22-30) L 11/08/17 14:02 Anion Gap 17 (10-20) 11/08/17 14:02 BUN 40 mg/dl (7-17) H 11/08/17 14:02 Creatinine 1.6 mg/dl (0.7-1.2) H 11/08/17 14:02 Est GFR ( Amer) 38 11/08/17 14:02 Est GFR (Non-Af Amer) 31 11/08/17 14:02 POC Glucose (mg/dL) 487 mg/dL (65-110) H* 11/08/17 11:09 Random Glucose 467 mg/dL (65-105) H* 11/08/17 14:02 Serum Osmolality 280 mosm/kg (272-300) 11/06/17 18:50 Uric Acid 6.0 mg/Dl (2.2-7.5) 11/08/17 07:24 Calcium 8.7 mg/dL (8.4-10.2) 11/08/17 14:02 Phosphorus 3.7 mg/dl (2.5-4.5) 11/08/17 07:24 Magnesium 1.4 MG/DL (1.6-2.3) L 11/08/17 07:24 Total Bilirubin 1.4 mg/dl (0.2-1.3) H 11/08/17 07:24 AST 17 U/L (14-36) 11/08/17 07:24 ALT 37 U/L (9-52) 11/08/17 07:24 Alkaline Phosphatase 92 U/L (38-126) 11/08/17 07:24 Lactate Dehydrogenase 337 U/L (313-618) 11/06/17 11:00 Total Protein 5.1 G/DL (6.3-8.2) L 11/08/17 07:24 Albumin 2.9 g/dL (3.5-5.0) L 11/08/17 07:24 Globulin 2.2 gm/dL (2.2-3.9) 11/08/17 07:24 Albumin/Globulin Ratio 1.3 (1.0-2.1) 11/08/17 07:24 TSH 3rd Generation 6.23 mIU/ML (0.46-4.68) H 11/06/17 12:32 Urine Osmolality 296 mosm/kg (300-1000) L 11/07/17 11:36 Ur Random Creatinine 13.6 mg/dL 11/08/17 13:39 Ur Random Sodium 75 mmol/L 11/08/17 13:39 Hep Bs Antibody Negative (NEGATIVE) 11/06/17 11:00 Hep Bs Antibody, Quant <5 mIU/mL (>or=10) L 11/06/17 11:00 Hep B Core IgM Ab Negative (NEGATIVE) 11/06/17 11:00 Hepatitis C Antibody Non reactive (Non Reactive) 11/06/17 11:00 Hep C Ab Signal/Cutoff 0.00 Ratio (<1.0) 11/06/17 11:00 Blood Type A POSITIVE 11/06/17 14:55 Antibody Screen Negative 11/06/17 14:55 Crossmatch See Detail 11/06/17 14:55 BBK History Checked Patient has bt 11/06/17 14:55 Attending/Attestation - Attestation I have personally seen and examined this patient.: Yes I have fully participated in the care of the patient.: Yes I have reviewed all pertinent clinical information, including history, physical exam and plan: Yes Notes (Text): 1. 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 - Chemotherapy over two day duration - Dr. Nunes Onco - Gentle hydration due to CHF and to prevent tumor lysis syndrome. - Pt was also placed on Allopurinol -pt completed Chemotherapy and tolerated it - pt has an appt with Dr Luz Nunes tomorrow am 2. MDS: - Dr. Nunes is following. 3. Anemia chronic sec to MDS, and chemotherapy - patient was transfused 2 units of pRBC 11/06/17. - H/H 11/07/17: 4. Pancytopenia secondary to MDS -continue to monitor - transfuse prn - Hematology following. 5. Chronic Atrial Fibrillation -Continue rate control: Metoprolol 50mg po BID -d/c anticoagulation: Xarelto due to low platelet - cont ASA as discussed with Dr Luz Nunes 6. COPD exacerbation -Chest Xray: negative for active disease. -Current regimen: Atrovent QID as per pulm consult. -Ptreceived steroids, Duoneb - Pulmonology following. 7. Hyponatremia prob sec to SIADH, decrease Solute intake and possibly secondary to hypothyroidism (TSH: 6.23) and Pseudohyponatremia from Hyperglycemia - Patient received Tolvaptan - Nephrology consulted- Dr Allen - Sodium improved to 130 (corrected with glucose level) - pt refused to stay in the hospital for Sodium monitoring and treatment , insisted on going home despite explanation of risks leaving and benefits of staying. - rpt labs in am BMP when pt comes to [facility] in am 8. Hypothyroidism: -continue levothyroxine 50mcg po daily -TSH: 6.23 9. DM type II with Hyper glycemia worsened by Steroids - accucheck with coverage - started Levemir while in hosp - cont home meds - pt now off steroids DVT prophylaxis: - Duplex of bilateral lower extremities: negative for DVT. - pt was on Xarelto - will d/c bec of low platelet post chemotx
[2017-11-08 14:22] LABS: CALCIUM 8.7 mg/dL (8.4-10.2)
[2017-11-08 14:59] LABS: CREATININE, RANDOM URINE 13.6 mg/dL
[2017-11-08] MEDS ORDERED: Insulin Detemir 100 Units/ml Inj SC SCH (22:00)
== END 2017-11-08 15:00 | disposition home or self-care (01) | DRG 847 ==
LOC: H.MEDSURG1 08:42
PROVIDERS: ADMIT Internal Medicine; ATTEND Internal Medicine
PROC: 3E03305 Introduction of Other Antineoplastic into Peripheral Vein, Percutaneous Approach (ICD-10-PCS; 2017-11-06)
PROC: 30233N1 Transfusion of Nonautologous Red Blood Cells into Peripheral Vein, Percutaneous Approach (ICD-10-PCS; principal; 2017-11-07)
PROC: 6A551Z2 Pheresis of Platelets, Multiple (ICD-10-PCS; 2017-11-07)
DX: Z51.11 Encounter for antineoplastic chemotherapy (principal); D61.818 Other pancytopenia; J44.1 Chronic obstructive pulmonary disease with (acute) exacerbation; C85.13 Unspecified B-cell lymphoma, intra-abdominal lymph nodes; N17.9 Acute kidney failure, unspecified; E22.2 Syndrome of inappropriate secretion of antidiuretic hormone; I25.10 Atherosclerotic heart disease of native coronary artery without angina pectoris; Z95.1 Presence of aortocoronary bypass graft; Z96.653 Presence of artificial knee joint, bilateral; Z95.5 Presence of coronary angioplasty implant and graft; I48.2 Chronic atrial fibrillation; Z87.891 Personal history of nicotine dependence; E78.00 Pure hypercholesterolemia, unspecified; E03.9 Hypothyroidism, unspecified; H91.91 Unspecified hearing loss, right ear; D46.9 Myelodysplastic syndrome, unspecified; R16.1 Splenomegaly, not elsewhere classified; E83.42 Hypomagnesemia; E87.6 Hypokalemia; E11.65 Type 2 diabetes mellitus with hyperglycemia; T38.0X5A Adverse effect of glucocorticoids and synthetic analogues, initial encounter; I11.0 Hypertensive heart disease with heart failure; I50.9 Heart failure, unspecified; D64.81 Anemia due to antineoplastic chemotherapy; T45.1X5A Adverse effect of antineoplastic and immunosuppressive drugs, initial encounter; R68.83 Chills (without fever)

== ENCOUNTER 2017-11-13 11:41 | Inpatient (IN) | payer MEDICARE, BC ==
[2017-11-13] MEDS ORDERED: Piperacillin/Tazobact 3.375 GM in Sodium Chloride 0.9% 100 ML IVPB STA (12:05)
--- NOTE | 2017-11-13 12:13 | ED PDOC ---
HPI: General Adult Time Seen by Provider: 11/13/17 11:58 Chief Complaint (Nursing): Abnormal Labs History Per: Patient Onset/Duration Of Symptoms: Unknown Current Symptoms Are (Timing): Still Present Severity: Moderate Additional Complaint(s): Transferred from infusion center after WBC count noted to be 0.6. Pt c/o mild SOB but denies chest pain palpitations or cough. Denies fever or chills. Receiving chemo for B cell lymphoma and MDS. Received Granix in infusion center Past Medical History Vital Signs: Last Vital Signs Temp 98.6 F 11/13/17 11:51 Pulse 108 H 11/13/17 11:51 Resp 23 11/13/17 11:51 BP 169/89 H 11/13/17 11:51 Pulse Ox 98 11/13/17 11:51 - Medical History PMH: Anemia, Atrial Fibrillation, CAD, COPD, Diabetes, Gastritis, HTN, Hypercholesterolemia, Hypothyroidism, Malignancy, Pneumonia Denies: HIV, Chronic Kidney Disease - Surgical History Surgical History: CABG, Coronary Stent - Family History Family History: States: Unknown Family Hx - Home Medications Home Medications: Ambulatory Orders Medication Instructions Recorded Aspirin [Ecotrin] 81 mg PO DAILY tabec 04/24/17 Cholecalciferol [Vitamin D 1000 IU] 1 tab PO DAILY 10/09/17 Cu/Se/Vit A/Vit C/Vit E/Zinc 1 tab PO DAILY 10/09/17 [Ocuvite] Multivitamin with Minerals [Hair, 1 tab PO DAILY 10/09/17 Skin and Nails] Vitamin B Complex [Super B-50 1 cap PO DAILY 10/09/17 Complex] Atorvastatin [Lipitor] 10 mg PO DAILY tab 10/12/17 Metoprolol Tartrate [Lopressor] 50 mg PO Q12 tab 10/12/17 SITagliptin [Januvia] 100 mg PO DAILY tab 10/12/17 Albuterol/Ipratropium [Combivent 2 puff IH Q6 PRN #1 puff 11/08/17 Respimat] Allopurinol [Zyloprim] 100 mg PO DAILY #30 tab 11/08/17 Furosemide [Lasix] 20 mg PO BID 11/13/17 Levothyroxine [Synthroid] 50 mcg PO DAILY 11/13/17 Potassium Chloride [Klor-Con M20] 20 meq PO DAILY 07/30/18 Rivaroxaban [Xarelto] 15 mg PO QPM 11/13/17 glyBURIDE [Micronase] 5 mg PO DAILY 11/13/17 - Allergies Allergies/Adverse Reactions: Allergies Allergy/AdvReac Type Severity Reaction Status Date / Time No Known Allergies Allergy Verified 10/19/17 11:23 Review of Systems ROS Statement: Except As Marked, All Systems Reviewed And Found Negative Constitutional: Negative for: Fever Cardiovascular: Negative for: Chest Pain, Palpitations Respiratory: Positive for: Shortness of Breath Physical Exam - Reviewed Nursing Documentation Reviewed: Yes Vital Signs Reviewed: Yes - Physical Exam Appears: Positive for: Non-toxic, No Acute Distress Head Exam: Positive for: ATRAUMATIC, NORMAL INSPECTION, NORMOCEPHALIC Skin: Positive for: Normal Color, Warm, DRY Eye Exam: Positive for: EOMI, Normal appearance, PERRL ENT: Positive for: Normal ENT Inspection Neck: Positive for: Normal, Painless ROM Cardiovascular/Chest: Positive for: Tachycardia, Irregularly Irregular Respiratory: Positive for: Rhonchi. Negative for: Wheezing, Respiratory Distress Gastrointestinal/Abdominal: Positive for: Normal Exam, Soft Back: Positive for: Normal Inspection Extremity: Positive for: Normal ROM Neurologic/Psych: Positive for: Alert, Oriented - ECG O2 Sat by Pulse Oximetry: 98 Disposition - Clinical Impression Clinical Impression: B-cell lymphoma, MDS (myelodysplastic syndrome), Neutropenia, Atrial fibrillation, Bronchopneumonia - Patient ED Disposition Is Patient to be Admitted: Yes - Disposition Referrals: Houston Vazquez MD [Primary Care Provider] - Disposition Time: 12:15 Condition: GUARDED - Pt Status Changed To: Hospital Disposition Of: Inpatient - Admit Certification Admit to Inpatient:: After my assessment, the patient will require hospitalization for at least two midnights. This is because of the severity of symptoms shown, intensity of services needed, and/or the medical risk in this patient being treated as an outpatient. - POA Present On Arrival: None
[2017-11-13] MEDS ORDERED: Piperacillin/Tazobact 3.375 gm Inj IVPB ONE (12:19)
[2017-11-13] MEDS ORDERED: Vancomycin 1 g Inj ONE (12:20)
--- NOTE | 2017-11-13 12:39 | CP.PCM.HP ---
History of Present Illness - History of Present Illness History of Present Illness: CC: sent from infusion center for low white count 77 yr old f with medical history including A fib, CAD (CABG triple bypass), COPD , hypercholesterolemia, hypothyroidism, HTN, DM type 2, CHF, B Cell lymphoma who was diagnosed with MDS in 2016 presents today from infusion center per Dr. Luz Nunes for WBC 0.6. Pt also presents with constant moderate dyspnea, ameliorated with breathing tx, associated with fatigue and weakness. Patient appears ill, fatigued. CXR showed LLL infiltrate. Patient EKG AFIB with rate 135 , Lopressor given. Vanc and Zosyn also initiated. LA 0.8. Admit to Tele to monitor Afib, Sepsis 2/2 LLL pna, neutropenia. Monitor closely. ROS: per HPI all other systems reviewed and neg PMSH: A fib, CAD (CABG triple bypass), COPD, hypercholesterolemia, hypothyroidism, HTN, DM type 2, CHF, B Cell lymphoma who was diagnosed with MDS in 2016, b/l knee replacements FH: denies SH: no Tobacco/ETOH/IVDU NKDA Present on Admission - Present on Admission Any Indicators Present on Admission: No Past Patient History - Infectious Disease Hx of Infectious Diseases: None - Past Medical History & Family History Past Medical History?: Yes - Past Social History Smoking Status: Former Smoker - CARDIAC Hx Atrial Fibrillation: Yes Hx Hypercholesterolemia: Yes Hx Hypertension: Yes - PULMONARY Hx Chronic Obstructive Pulmonary Disease (COPD): Yes Hx Pneumonia: Yes - HEENT Hx HEENT Problems: Yes Other/Comment: Right ear -deaf - RENAL Hx Chronic Kidney Disease: No - ENDOCRINE/METABOLIC Hx Hypothyroidism: Yes - HEMATOLOGICAL/ONCOLOGICAL Hx Anemia: Yes Hx Human Immunodeficiency Virus (HIV): No - INTEGUMENTARY Hx Dermatological Problems: No - MUSCULOSKELETAL/RHEUMATOLOGICAL Hx Falls: Yes - GASTROINTESTINAL Hx Gastritis: Yes - GENITOURINARY/GYNECOLOGICAL Hx Genitourinary Disorders: No - PSYCHIATRIC Hx Emotional Abuse: No Hx Physical Abuse: No Hx Substance Use: No - SURGICAL HISTORY Hx Coronary Artery Bypass Graft: Yes Hx Coronary Stent: Yes - ANESTHESIA Hx Anesthesia: Yes Hx Anesthesia Reactions: No Hx Malignant Hyperthermia: No Meds Allergies/Adverse Reactions: Allergies Allergy/AdvReac Type Severity Reaction Status Date / Time No Known Allergies Allergy Verified 10/19/17 11:23 Physical Exam - Constitutional Additional comments: patient appears ill, pale, cooperative - Head Exam Head Exam: ATRAUMATIC, NORMOCEPHALIC - Eye Exam Eye Exam: EOMI, Normal appearance, PERRL Pupil Exam: NORMAL ACCOMODATION - ENT Exam ENT Exam: Mucous Membranes Dry, Normal Oropharynx - Neck Exam Neck exam: Positive for: Normal Inspection. Negative for: Tenderness - Respiratory Exam Respiratory Exam: Rales, NORMAL BREATHING PATTERN - Cardiovascular Exam Cardiovascular Exam: RRR, +S1, +S2 - GI/Abdominal Exam GI & Abdominal Exam: Normal Bowel Sounds, Soft. absent: Organomegaly, Tenderness - Extremities Exam Extremities exam: Positive for: normal capillary refill, pedal pulses present - Back Exam Back exam: NORMAL INSPECTION. absent: rash noted, tenderness - Neurological Exam Neurological exam: Alert, Oriented x3 - Psychiatric Exam Psychiatric exam: Normal Affect, Normal Mood - Skin Skin Exam: Dry, Warm Results - Vital Signs Recent Vital Signs: Last Vital Signs Temp 98.6 F 11/13/17 11:51 Pulse 129 H 11/13/17 12:22 Resp 23 11/13/17 11:51 BP 171/91 H 11/13/17 12:22 Pulse Ox 98 11/13/17 12:18 Assessment & Plan - Assessment and Plan (Free Text) Plan: 77 yr old f with medical history including A fib, CAD (CABG triple bypass), COPD , hypercholesterolemia, hypothyroidism, HTN, DM type 2, CHF, B Cell lymphoma who was diagnosed with MDS in 2016 presents today from infusion center per Dr. Luz Nunes for WBC 0.6. Pt also presents with constant moderate dyspnea, ameliorated A fib, CAD (CABG triple bypass), COPD, hypercholesterolemia, hypothyroidism, HTN, DM type 2, CHF, B Cell lymphoma who was diagnosed with MDS in 2016 with breathing tx, associated with fatigue and weakness. Patient appears ill, fatigued. CXR showed LLL infiltrate. Patient EKG AFIB with rate 135 , Lopressor given. Vanc and Zosyn also initiated. Admit to Tele to monitor Afib , Sepsis 2/2 LLL pna, neutropenia. Monitor closely. Sepsis 2/2 LLL Pna with Neutropenia afebrile, neutropenia, tachycardia, LA 0.8 Vanc/Zosyn started in ED duobnebs for dyspnea and crackles Dr. Vazquez pulmonology consult appreciated B-cell lymphoma Status: Acute Comment: Chemotherapy over two day duration completed a few days ago Dr. Nunes will continue to follow. MDS (myelodysplastic syndrome) Status: Acute Comment: Chemotherapy, Dr. Nunes will continue to follow. Anemia Status: Acute Priority: High Comment: Patient's H/H : 8.7//, monitor Pancytopenia Status: Acute Comment: Dr. Nunes will continue to follow Chronic a-fib Status: Acute Comment: Continue current management Metoprolol 50mg po BID. Xarelto discontinued due to thrombocytopenia COPD exacerbation Status: Acute Comment: Duonebs ordered PRN Hyponatremia Status: Acute Comment: Na 126, will gently hydrate with NS, BUN elevated as well Hypokalemia Status: Acute Comment: Replete PRN Hypothyroid Status: Acute Comment: Continue home medication: Levothyroxine 50mcg daily. DVT prophylaxis Status: Acute Comment: Patient was on xarelto, d/c 2/2 thrombocytopenia
[2017-11-13 12:42] LABS: VENOUS BLOOD GAS BASE EXCESS 0.8 mmol/L (0.0-2.0); VENOUS BLOOD GAS PCO2 39 mmHg (40-60); VENOUS BLOOD GAS PO2 36 mm/Hg (30-55); VENOUS BLOOD PH 7.42 (7.32-7.43)
[2017-11-13] MEDS ORDERED: Patient's Own Med (Albuterol/Ipratropium [Combivent Respimat] 2 PUFF) IH PRN (12:43)
[2017-11-13] MEDS ORDERED: Albuterol-Ipratrop 3 mg / 0.5 (3 ml) UD INH STA (12:47)
[2017-11-13] MEDS ORDERED: Albuterol-Ipratrop 3 mg / 0.5 (3 ml) UD INH PRN (12:47)
[2017-11-13] MEDS ORDERED: Albuterol-Ipratrop 3 mg / 0.5 (3 ml) UD ONE ×4 (13:42→20:25)
[2017-11-13] MEDS: Sodium Chloride 0.9% 1,000 ML IV SCH (13:52)
[2017-11-13] MEDS: Piperacillin/Tazobact 3.375 GM in Sodium Chloride 0.9% 100 ML IVPB SCH (16:17)
[2017-11-13] MEDS ORDERED: Metoprolol 1 mg/ml Inj IVP STA ×2 (16:18→22:01)
[2017-11-13] MEDS ORDERED: Metoprolol 1 mg/ml Inj IVP ONE (16:21)
[2017-11-13] MEDS: Albuterol-Ipratrop 3 mg / 0.5 (3 ml) UD INH SCH ×2 (16:22→20:25)
[2017-11-13] MEDS: Insulin Lispro (humaLOG) 100 Units/ml Inj SC SCH (16:27)
--- NOTE | 2017-11-13 16:29 | CARD ---
APPROVED REPORT Date of service: 11/13/2017 EKG Measurement Heart [id number] <Conclusion> Atrial fibrillation with rapid ventricular response Left axis deviation Nonspecific T wave abnormality Abnormal ECG
[2017-11-13] MEDS ORDERED: Insulin Regular 100 units/ml ONE ×3 (16:30→22:59)
[2017-11-13] MEDS ORDERED: Insulin Regular 100 units/ml SC ONE (20:12)
[2017-11-14] MEDS: Insulin Lispro (humaLOG) 100 Units/ml Inj SC SCH ×5 (00:20→22:21)
[2017-11-14] MEDS: Piperacillin/Tazobact 3.375 GM in Sodium Chloride 0.9% 100 ML IVPB SCH ×5 (00:26→22:17)
[2017-11-14] MEDS ORDERED: Chlorhexidine Gluconate 1 APPL/PKT TP ONE (00:34)
[2017-11-14 01:08] LABS: HEMOGLOBIN 7.6 g/dL (12.0-16.0); MEAN CELL VOLUME 79.9 fl (81.0-99.0); MEAN CORPUSCULAR HEMOGLOBIN 26.3 pg (27.0-31.0); MEAN CORPUSCULAR HGB CONC 32.9 g/dL (33.0-37.0); RBC 2.89 Mil/uL (3.80-5.20); RED CELL DISTRIBUTION WIDTH 18.3 % (11.5-14.5)
[2017-11-14 01:15] LABS: WHITE BLOOD COUNT 0.2 K/uL (4.8-10.8)
[2017-11-14 01:17] LABS: CALCIUM 8.6 mg/dL (8.4-10.2)
[2017-11-14] MEDS: Levothyroxine 50 MCG TAB PO SCH ×2 (05:39→06:48)
[2017-11-14] MEDS ORDERED: Potassium Chloride 20 mEq ER Tab PO ONE (07:32)
--- NOTE | 2017-11-14 07:34 | CP.PCM.PN ---
Subjective - Date & Time of Evaluation Date of Evaluation: 11/14/17 Time of Evaluation: 07:34 - Subjective Subjective: she feels better today very tired yesterday still very tired but improved Objective - Vital Signs/Intake and Output Vital Signs (last 24 hours): Temp Pulse Resp BP Pulse Ox 98.2 F 144 H 123 H 113/60 100 11/14/17 06:00 11/14/17 06:47 11/14/17 06:00 11/14/17 06:47 11/14/17 06:00 Intake and Output: 11/14/17 11/14/17 06:59 18:59 Intake Total 700 Balance 700 - Medications Medications: Current Medications Acetaminophen (Tylenol 650 Mg Supp) 650 mg [place] Q6 PRN PRN Reason: Fever >100.4 F Last Admin: 11/14/17 00:35 Dose: 650 mg Albuterol/Ipratropium (Duoneb 3 Mg/0.5 Mg (3 Ml) Ud) 3 ml INH RQ4 PRN PRN Reason: Shortness of Breath Albuterol/Ipratropium (Duoneb 3 Mg/0.5 Mg (3 Ml) Ud) 3 ml INH RQID RUIZ Last Admin: 11/13/17 20:25 Dose: 3 ml Allopurinol (Zyloprim) 100 mg PO DAILY [facility] Atorvastatin Calcium (Lipitor) 10 mg PO DAILY [facility] Cholecalciferol (Vitamin D) 1,000 intlu PO DAILY [facility] Docusate Sodium (Colace) 100 mg PO BID PRN PRN Reason: Constipation Vancomycin HCl 1 gm/ Sodium (Chloride) 250 mls @ 166.667 mls/hr IVPB Q12H [facility]UI[facility] PRN Reason: Protocol Last Admin: 11/14/17 01:48 Dose: 166.667 mls/hr Piperacillin Sod/Tazobactam (Sod 3.375 gm/ Sodium Chloride) 100 mls @ 100 mls/ hr IVPB Q6 RUIZ PRN Reason: Protocol Last Admin: 11/14/17 05:49 Dose: 100 mls/hr Sodium Chloride (Sodium Chloride 0.9%) 1,000 mls @ 75 mls/hr IV .[id number] [facility] Last Admin: 11/13/17 13:52 Dose: 75 mls/hr Ceftaroline Fosamil 400 mg/ (Sodium Chloride) 100 mls @ 100 mls/hr IVPB Q12H [facility] PRN Reason: Protocol Last Admin: 11/14/17 02:50 Dose: 100 mls/hr Ibuprofen (Motrin Tab) 400 mg PO Q6 PRN PRN Reason: Fever >100.4 F Insulin Human Lispro (Humalog) 0 units SC ACHS [facility] PRN Reason: Protocol Last Admin: 11/14/17 00:20 Dose: Not Given Levothyroxine Sodium (Synthroid) 50 mcg PO DAILY@0630 [facility] Last Admin: 11/14/17 06:48 Dose: 50 mcg Metoprolol Tartrate (Lopressor) 50 mg PO Q12 [facility] Last Admin: 11/14/17 06:47 Dose: 50 mg Multivitamins/Minerals (Therapeutic-M Tab) 1 tab PO DAILY [facility] Ondansetron HCl (Zofran Inj) 4 mg IVP Q6 PRN PRN Reason: Nausea/Vomiting Last Admin: 11/13/17 17:15 Dose: 4 mg Potassium Chloride (K-Dur 20 Meq Er Tab) 40 meq PO ONCE ONE Stop: 11/14/17 07:33 Sitagliptin Phosphate (Januvia) 100 mg PO DAILY [facility] Trimethoprim/Sulfamethoxazole (Bactrim Ds Tab) 1 tab PO BID [facility] PRN Reason: Protocol - Labs Labs: 11/14/17 01:05 11/14/17 01:05 - Constitutional Appears: Well, No Acute Distress - Head Exam Head Exam: ATRAUMATIC - Eye Exam Eye Exam: Normal appearance Pupil Exam: NORMAL ACCOMODATION - ENT Exam Additional comments: bite? hoyt on lips not healing ulcer - Respiratory Exam Respiratory Exam: Rhonchi, NORMAL BREATHING PATTERN. absent: Accessory Muscle Use, Rales, Wheezes - Cardiovascular Exam Cardiovascular Exam: Irregular Rhythm, +S1, +S2. absent: REGULAR RHYTHM - GI/Abdominal Exam GI & Abdominal Exam: Normal Bowel Sounds. absent: Soft, Tenderness, Organomegaly - Neurological Exam Neurological Exam: Alert, Awake, Oriented x3 - Skin Skin Exam: Pallor Assessment and Plan - Assessment and Plan (Free Text) Assessment: 77 yr old f with medical history including A fib, CAD (CABG triple bypass), COPD , hypercholesterolemia, hypothyroidism, HTN, DM type 2, CHF, B Cell lymphoma who was diagnosed with MDS in 2016 presents today from infusion center per Dr. Luz Nunes for WBC 0.6. Pt also presents with constant moderate dyspnea, ameliorated A fib, CAD (CABG triple bypass), COPD, hypercholesterolemia, hypothyroidism, HTN, DM type 2, CHF, B Cell lymphoma who was diagnosed with MDS in 2016 with breathing tx, associated with fatigue and weakness. Patient appears ill, fatigued. CXR showed LLL infiltrate. Patient EKG AFIB with rate 135 , Lopressor given. Vanc and Zosyn also initiated. Admit to Tele to monitor Afib , Sepsis 2/2 LLL pna, neutropenia. Monitor closely. Sepsis 2/2 LLL Pna with Neutropenia afebrile, neutropenia, tachycardia, LA 0.8 Vanc/Zosyn started in ED césar for dyspnea and crackles Dr. Vazquez pulmonology consult appreciated B-cell lymphoma Status: Acute Comment: Chemotherapy over two day duration completed a few days ago Dr. Nunes will continue to follow. MDS (myelodysplastic syndrome) Status: Acute Comment: Chemotherapy, Dr. Nunes will continue to follow. Anemia Status: Acute Priority: High Comment: Patient's H/H : 8.7//, monitor await instruction re TRANSFUSION from Dr. Nunes Pancytopenia Status: Acute Comment: Dr. Nunes will continue to follow Chronic a-fib Status: Acute Comment: Continue current management Metoprolol 50mg po BID. Xarelto discontinued due to thrombocytopenia COPD exacerbation Status: Acute Comment: Duonebs ordered PRN Hyponatremia Status: Acute Comment: Na 126, will gently hydrate with NS, BUN elevated as well Hypokalemia Status: Acute Comment: Replete PRN Hypothyroid Status: Acute Comment: Continue home medication: Levothyroxine 50mcg daily. DVT prophylaxis Status: Acute Comment: Patient was on xarelto, d/c 2/2 thrombocytopenia
[2017-11-14] MEDS: Albuterol-Ipratrop 3 mg / 0.5 (3 ml) UD INH SCH ×2 (08:13→11:40)
[2017-11-14] MEDS: Tmp-Smz 800 mg-160 mg DS Tab PO SCH ×2 (08:40→16:53)
--- NOTE | 2017-11-14 08:42 | RAD ---
Date of service: 11/14/2017 HISTORY: pneumonia COMPARISON: 11/13/2017. FINDINGS: The right MediPort terminates in the right atrium. There is mild cardiomegaly. Status post CABG. LUNGS: The lungs are well inflated and there is mild pulmonary venous congestion. There is redemonstration of airspace disease in the left lower lobe. PLEURA: No significant pleural effusion identified, no pneumothorax apparent. CARDIOVASCULAR: Normal. OSSEOUS STRUCTURES: No significant abnormalities. VISUALIZED UPPER ABDOMEN: Normal. OTHER FINDINGS: None. IMPRESSION: Airspace disease in the left lower lobe may represent atelectasis or pneumonia. Follow-up is advised. No change in mild cardiomegaly and pulmonary venous congestion.
--- NOTE | 2017-11-14 08:49 | CP.PCM.CON ---
History of Present Illness - History of Present Illness History of Present Illness: This 77 year old female with B cell lymphoma presented to the infusion center with dyspnea, fatigue and neutropenia. A chest x-ray revealed a LLL retrocardiac patchy density. She was sent to the emergency room where she was noted to be tachycardic and tachypneic as well as lethargic. Admission was advised and she became more lethargic resulting in ICU admission for close monitoring and the possibility of intubation. She did spike a febrile pattern overnight, but appears mor comfortable and alert this morning receiving Zosyn, Vancomycin and Ceftaroline IV. She is a former cigarette smoker who suffers from COPD as well as JENNIFER, CAD with CABG in 2000 and PCI in 2007 and 2010, DM, hypertension and hyperlipidemia. Review of Systems - Constitutional Constitutional: Anorexia, Fatigue - EENT Ears: Decreased Hearing - Respiratory Respiratory: Dyspnea Past Patient History - Infectious Disease Hx of Infectious Diseases: None - Past Medical History & Family History Past Medical History?: Yes Pertinent Family History: CAD, diabetes - Past Social History Smoking Status: Former Smoker Chewing Tobacco Use: No Cigar Use: No Alcohol: None Drugs: Denies - CARDIAC Hx Atrial Fibrillation: Yes Hx Congestive Heart Failure: Yes Hx Hypercholesterolemia: Yes Hx Hypertension: Yes Hx Peripheral Edema: Yes - PULMONARY Hx Chronic Obstructive Pulmonary Disease (COPD): Yes Hx Pneumonia: Yes Hx Sleep Apnea: Yes - NEUROLOGICAL Hx Neurological Disorder: No - HEENT Hx HEENT Problems: Yes (Hearing loss in the right ear.) - RENAL Hx Chronic Kidney Disease: No - ENDOCRINE/METABOLIC Hx Diabetes Mellitus Type 2: Yes Hx Hypothyroidism: Yes Other/Comment: gastritis - HEMATOLOGICAL/ONCOLOGICAL Hx Anemia: Yes Hx Blood Transfusions: Yes Hx Cancer: Yes (b cell lymphoma) Hx Chemotherapy: Yes - INTEGUMENTARY Hx Dermatological Problems: No - MUSCULOSKELETAL/RHEUMATOLOGICAL Hx Falls: Yes - GASTROINTESTINAL Hx Gastritis: Yes - GENITOURINARY/GYNECOLOGICAL Hx Genitourinary Disorders: No - PSYCHIATRIC Hx Psychophysiologic Disorder: No Hx Substance Use: No - SURGICAL HISTORY Hx Coronary Artery Bypass Graft: Yes (2000) Hx Coronary Stent: Yes (PCI 2007 and 2010) Other/Comment: meg knee replacement - ANESTHESIA Hx Anesthesia: Yes Hx Anesthesia Reactions: No Hx Malignant Hyperthermia: No Meds Allergies/Adverse Reactions: Allergies Allergy/AdvReac Type Severity Reaction Status Date / Time No Known Allergies Allergy Verified 10/19/17 11:23 - Medications Medications: Current Medications Acetaminophen (Tylenol 650 Mg Supp) 650 mg [place] Q6 PRN PRN Reason: Fever >100.4 F Last Admin: 11/14/17 00:35 Dose: 650 mg Albuterol/Ipratropium (Duoneb 3 Mg/0.5 Mg (3 Ml) Ud) 3 ml INH RQ4 PRN PRN Reason: Shortness of Breath Albuterol/Ipratropium (Duoneb 3 Mg/0.5 Mg (3 Ml) Ud) 3 ml INH RQID [facility] Last Admin: 11/14/17 08:13 Dose: 3 ml Allopurinol (Zyloprim) 100 mg PO DAILY [facility] Atorvastatin Calcium (Lipitor) 10 mg PO DAILY [facility] Cholecalciferol (Vitamin D) 1,000 intlu PO DAILY [facility] Docusate Sodium (Colace) 100 mg PO BID PRN PRN Reason: Constipation Vancomycin HCl 1 gm/ Sodium (Chloride) 250 mls @ 166.667 mls/hr IVPB Q12H [facility] PRN Reason: Protocol Last Admin: 11/14/17 01:48 Dose: 166.667 mls/hr Piperacillin Sod/Tazobactam (Sod 3.375 gm/ Sodium Chloride) 100 mls @ 100 mls/ hr IVPB Q6 [facility] PRN Reason: Protocol Last Admin: 11/14/17 05:49 Dose: 100 mls/hr Sodium Chloride (Sodium Chloride 0.9%) 1,000 mls @ 75 mls/hr IV .[id number] [facility] Last Admin: 11/13/17 13:52 Dose: 75 mls/hr Ceftaroline Fosamil 400 mg/ (Sodium Chloride) 100 mls @ 100 mls/hr IVPB Q12H [facility] PRN Reason: Protocol Last Admin: 11/14/17 02:50 Dose: 100 mls/hr Ibuprofen (Motrin Tab) 400 mg PO Q6 PRN PRN Reason: Fever >100.4 F Insulin Human Lispro (Humalog) 0 units SC ACHS [facility] PRN Reason: Protocol Last Admin: 11/14/17 08:41 Dose: Not Given Levothyroxine Sodium (Synthroid) 50 mcg PO DAILY@0630 [facility] Last Admin: 11/14/17 06:48 Dose: 50 mcg Metoprolol Tartrate (Lopressor) 50 mg PO Q12 [facility] Last Admin: 11/14/17 06:47 Dose: 50 mg Multivitamins/Minerals (Therapeutic-M Tab) 1 tab PO DAILY [facility] Ondansetron HCl (Zofran Inj) 4 mg IVP Q6 PRN PRN Reason: Nausea/Vomiting Last Admin: 11/13/17 17:15 Dose: 4 mg Sitagliptin Phosphate (Januvia) 100 mg PO DAILY [facility] Trimethoprim/Sulfamethoxazole (Bactrim Ds Tab) 1 tab PO BID [facility] PRN Reason: Protocol Last Admin: 11/14/17 08:40 Dose: 1 tab Physical Exam - Additional Findings Additional findings: Awake and alert, oriented X 3. SpO2 100% with nasal oxygen at 2 LPM. Afebrile, A fib on monitor, normotensive. Answers questions appropriately, follows simple commands. ++ dependant edema w/o cyanosis. Pharynx is pink and moist w/o exudate. Neck is supple and trachea midline, no visible JVD. No dullness on chest percussion anteriorly. No subcut emphysema on palpation. Breath sounds are present equally in both lungs w/o audible wheezing. Medium rales are heard posteriorly in the lower lobes of both lungs. No audible bronchial breath sounds or egophony. heart sounds are somewhat distant, irregular rhythm. Abdomen is soft with good bowel sounds. Results - Vital Signs Recent Vital Signs: Last Vital Signs Temp 98.0 F 11/14/17 08:00 Pulse 100 H 11/14/17 08:00 Resp 25 H 11/14/17 08:00 BP 124/70 11/14/17 08:00 Pulse Ox 100 11/14/17 08:00 - Labs Result Diagrams: 11/14/17 01:05 11/14/17 01:05 Labs: Laboratory Results - last 24 hr 11/13/17 11/13/17 11/13/17 12:30 13:50 16:17 WBC RBC Hgb Hct MCV MCH MCHC RDW Plt Count pO2 36 VBG pH 7.42 VBG pCO2 39 L VBG HCO3 24.8 VBG Total CO2 26.5 VBG O2 Sat (Calc) 77.1 H VBG Base Excess 0.8 VBG Potassium 3.1 L Sodium 127.0 L Chloride 94.0 L Glucose 403 H* D Lactate 0.8 FiO2 21.0 Crit Value Called To Machelle porter Crit Value Called By 23 Crit Value Read Back Y Blood Gas Notified Time 1240 Potassium Carbon Dioxide Anion Gap BUN Creatinine Est GFR ( Amer) Est GFR (Non-Af Amer) POC Glucose (mg/dL) 365 H 360 H Random Glucose Calcium Venous Blood Potassium 3.1 L 11/13/17 11/13/17 11/14/17 19:45 22:21 00:19 WBC RBC Hgb Hct MCV MCH MCHC RDW Plt Count pO2 VBG pH VBG pCO2 VBG HCO3 VBG Total CO2 VBG O2 Sat (Calc) VBG Base Excess VBG Potassium Sodium Chloride Glucose Lactate FiO2 Crit Value Called To Crit Value Called By Crit Value Read Back Blood Gas Notified Time Potassium Carbon Dioxide Anion Gap BUN Creatinine Est GFR ( Amer) Est GFR (Non-Af Amer) POC Glucose (mg/dL) 425 H* 281 H 214 H Random Glucose Calcium Venous Blood Potassium 11/14/17 11/14/17 11/14/17 01:05 01:05 05:45 WBC 0.2 L* D RBC 2.89 L Hgb 7.6 L Hct 23.1 L MCV 79.9 L MCH 26.3 L MCHC 32.9 L RDW 18.3 H Plt Count 46 L pO2 VBG pH VBG pCO2 VBG HCO3 VBG Total CO2 VBG O2 Sat (Calc) VBG Base Excess VBG Potassium Sodium 130 L Chloride 97 L Glucose Lactate FiO2 Crit Value Called To Crit Value Called By Crit Value Read Back Blood Gas Notified Time Potassium 3.4 L Carbon Dioxide 22 Anion Gap 14 BUN 20 H Creatinine 1.1 Est GFR ( Amer) 58 Est GFR (Non-Af Amer) 48 POC Glucose (mg/dL) 133 H Random Glucose 190 H Calcium 8.6 Venous Blood Potassium Assessment & Plan (1) Pneumonia Status: Acute Priority: High Comment: Left lower lobe patchy infiltrate. (2) Pancytopenia Status: Acute Priority: High Comment: Secondary to chemotherapy for lymphoma. (3) B-cell lymphoma Status: Chronic Priority: High Comment: Recently diagnosed. Presently on chemotherapy. (4) COPD (chronic obstructive pulmonary disease) Status: Chronic Priority: High Comment: Stable on present therapy. - Date & Time Date: 11/14/17 Time: 08:52
[2017-11-14] MEDS ORDERED: Patient's Own Med (Vitamin B Complex [Super B-50 Complex] 1 CAP) PO SCH (09:00)
[2017-11-14 09:18] LABS: MEAN CELL VOLUME 79.5 fl (81.0-99.0); MEAN CORPUSCULAR HEMOGLOBIN 26.7 pg (27.0-31.0); MEAN CORPUSCULAR HGB CONC 33.6 g/dL (33.0-37.0); RBC 2.99 Mil/uL (3.80-5.20); RED CELL DISTRIBUTION WIDTH 17.8 % (11.5-14.5)
[2017-11-14 09:23] LABS: WHITE BLOOD COUNT 0.2 K/uL (4.8-10.8)
[2017-11-14 09:39] LABS: ALB/GLOB RATIO 1.3 (1.0-2.1); ALBUMIN 2.6 g/dL (3.5-5.0); CALCIUM 8.3 mg/dL (8.4-10.2)
[2017-11-14] MEDS: Sodium Chloride 0.9% 1,000 ML IV SCH (10:01)
[2017-11-14] MEDS: Cholecalciferol 1,000 INTLU TAB PO SCH (11:37)
[2017-11-14] MEDS: Multivitamin With Minerals Tab PO SCH (11:37)
--- NOTE | 2017-11-14 12:10 | CP.PCM.PN ---
Subjective - Date & Time of Evaluation Date of Evaluation: 11/14/17 Time of Evaluation: 12:10 - Subjective Subjective: I D NOTE PATIENT EXAMINED ,CHART REVIEWED FULL CONSULT DICTATED Objective - Vital Signs/Intake and Output Vital Signs (last 24 hours): Temp Pulse Resp BP Pulse Ox 98.0 F 112 H 26 H 117/58 L 100 11/14/17 08:00 11/14/17 10:00 11/14/17 10:00 11/14/17 10:00 11/14/17 10:00 Intake and Output: 11/14/17 11/14/17 06:59 18:59 Intake Total 700 300 Balance 700 300 - Medications Medications: Current Medications Acetaminophen (Tylenol 650 Mg Supp) 650 mg GA Q6 PRN PRN Reason: Fever >100.4 F Last Admin: 11/14/17 00:35 Dose: 650 mg Albuterol/Ipratropium (Duoneb 3 Mg/0.5 Mg (3 Ml) Ud) 3 ml INH RQ4 PRN PRN Reason: Shortness of Breath Albuterol/Ipratropium (Duoneb 3 Mg/0.5 Mg (3 Ml) Ud) 3 ml INH RQID [facility] Last Admin: 11/14/17 11:40 Dose: 3 ml Allopurinol (Zyloprim) 100 mg PO DAILY [facility] Last Admin: 11/14/17 11:37 Dose: 100 mg Atorvastatin Calcium (Lipitor) 10 mg PO DAILY [facility] Last Admin: 11/14/17 11:37 Dose: 10 mg Cholecalciferol (Vitamin D) 1,000 intlu PO DAILY [facility] Last Admin: 11/14/17 11:37 Dose: 1,000 intlu Docusate Sodium (Colace) 100 mg PO BID PRN PRN Reason: Constipation Emollient Ointment (Vaseline Oint) 1 pkt TOP BID [facility] Vancomycin HCl 1 gm/ Sodium (Chloride) 250 mls @ 166.667 mls/hr IVPB Q12H [facility] PRN Reason: Protocol Last Admin: 11/14/17 01:48 Dose: 166.667 mls/hr Piperacillin Sod/Tazobactam (Sod 3.375 gm/ Sodium Chloride) 100 mls @ 100 mls/ hr IVPB Q6 [facility] PRN Reason: Protocol Last Admin: 11/14/17 05:49 Dose: 100 mls/hr Sodium Chloride (Sodium Chloride 0.9%) 1,000 mls @ 75 mls/hr IV .[id number] [facility] Last Admin: 11/14/17 10:01 Dose: 75 mls/hr Ceftaroline Fosamil 400 mg/ (Sodium Chloride) 100 mls @ 100 mls/hr IVPB Q12H [facility] PRN Reason: Protocol Last Admin: 11/14/17 02:50 Dose: 100 mls/hr Ibuprofen (Motrin Tab) 400 mg PO Q6 PRN PRN Reason: Fever >100.4 F Insulin Human Lispro (Humalog) 0 units SC ACHS [facility] PRN Reason: Protocol Last Admin: 11/14/17 11:40 Dose: 2 u Levothyroxine Sodium (Synthroid) 50 mcg PO DAILY@0630 [facility] Last Admin: 11/14/17 06:48 Dose: 50 mcg Metoprolol Tartrate (Lopressor) 50 mg PO Q12 [facility] Last Admin: 11/14/17 11:38 Dose: Not Given Multivitamins/Minerals (Therapeutic-M Tab) 1 tab PO DAILY [facility] Last Admin: 11/14/17 11:37 Dose: 1 tab Ondansetron HCl (Zofran Inj) 4 mg IVP Q6 PRN PRN Reason: Nausea/Vomiting Last Admin: 11/13/17 17:15 Dose: 4 mg Sitagliptin Phosphate (Januvia) 100 mg PO DAILY [facility] Last Admin: 11/14/17 11:36 Dose: 100 mg Trimethoprim/Sulfamethoxazole (Bactrim Ds Tab) 1 tab PO BID [facility] PRN Reason: Protocol Last Admin: 11/14/17 08:40 Dose: 1 tab - Labs Labs: 11/14/17 08:50 11/14/17 08:50
[2017-11-14] MEDS: Petrolatum UD PAK TOP SCH (16:54)
[2017-11-14 19:57] LABS: SQUAMOUS EPITHIAL 2 /hpf (0-5); URINE BACTERIA FEW (<OCC); URINE BILIRUBIN NEGATIVE (NEGATIVE); URINE BLOOD SMALL (NEGATIVE); URINE CLARITY TURBID (Clear); URINE COLOR AMBER (YELLOW); URINE GLUCOSE (UA) 150 mg/dL (Normal); URINE LEUKOCYTE ESTERASE SMALL Leu/uL (Negative); URINE PROTEIN 100 mg/dL (NEGATIVE)
--- NOTE | 2017-11-14 23:43 | CON ---
Copied To: Praesh Suggs MD Attending MD: Paresh Suggs MD DATE: 11/14/2017 INFECTIOUS DISEASE CONSULT LOCATION: ICU. HISTORY OF PRESENT ILLNESS: She is a 77-year-old female with B-cell lymphoma, who received her chemotherapy on Monday and of last week. She also had hyponatremia at that time and received treatment at that time She was discharged on Monday and went home for the weekend and returned to the hospital for a followup [facility] when was noted to have dyspnea, fatigue, and severe neutropenia. Chest x-ray revealed a left lower lobe density, probable pneumonia, was sent to the emergency room. I visited that night and she was noted to be tachycardic and extremely lethargic and was evaluated for the ICU where she came up in the early a.m. She needed monitoring at that time for the possibility of intubation. Also had a temp of 101 and her white count which was originally 0.6, had gone down to 0.2. She was on Zosyn and vancomycin at the time and was subsequently placed on Teflaro in an adjusted renal dose as she has had past history of renal insufficiency. She was also placed her on Bactrim p.o. This a.m. she improved dramatically to where she was alert, had called daughter on the telephone, and was eating breakfast. She has a past medical history of coronary artery disease and had a CABG in 2000 and PCI in 2007 and 2010, history of diabetes, hypertension, and hyperlipidemia. PHYSICAL EXAMINATION: GENERAL: The patient presently is alert, cooperative, and oriented. HEENT: Conjunctivae are pale. Skin is pale but improved since last night. NECK: Supple. LUNGS: Rales heard in the left lower lobe and in the right lower lobe. Her inspiration is within normal limits. HEART: Regular sinus rhythm. ABDOMEN: Positive bowel sounds. EXTREMITIES: She has significant dependant edema, but no cyanosis. LABORATORY DATA: White count again is 0.2, hemoglobin is 8, platelet count is 50, she was in the 20s last week. Creatinine is 1.2. GFR is 44. Cultures are pending. At the present time, we will have to discuss with We well continue the present total course of antibiotic therapy, which is vancomycin, Zosyn, and Teflaro. Hopefully, we can pull back on the antibiotics tomorrow, but at the moment we will hesitate to change. I also placed her on p.o. Bactrim for prophylaxis. Paresh Suggs MD JOANNA
[2017-11-15] MEDS: Piperacillin/Tazobact 3.375 GM in Sodium Chloride 0.9% 100 ML IVPB SCH ×2 (04:00→09:09)
[2017-11-15] MEDS: Insulin Lispro (humaLOG) 100 Units/ml Inj SC SCH ×4 (07:25→21:56)
[2017-11-15] MEDS: Levothyroxine 50 MCG TAB PO SCH (07:25)
[2017-11-15] MEDS: Albuterol-Ipratrop 3 mg / 0.5 (3 ml) UD INH SCH ×3 (07:54→20:14)
[2017-11-15] MEDS ORDERED: Epoetin Alfa 40000 UNIT/ml Inj SC SCH (08:45)
[2017-11-15] MEDS: Tmp-Smz 800 mg-160 mg DS Tab PO SCH ×2 (08:52→16:57)
[2017-11-15] MEDS: Multivitamin With Minerals Tab PO SCH (08:53)
[2017-11-15] MEDS: Petrolatum UD PAK TOP SCH ×2 (08:53→16:58)
[2017-11-15] MEDS: Cholecalciferol 1,000 INTLU TAB PO SCH (08:54)
--- NOTE | 2017-11-15 09:02 | CP.PCM.CON ---
History of Present Illness - History of Present Illness History of Present Illness: This is a 77 yrs old female who was found to have MDS 1yr ago. She responded well with the chemotherapy (azacitidine). Her blood counts corrected for about 7 -8 monthsbut then she started getting weaker and was very pale , short of breath and was almost unable to walk. A ct scan done showed a massive splenomegaly with nodules . These were biopsied and found to be a B cell lymphoma. For the first dose she was given RCOP. and she got very neutropenic and developed a pneumonia left lower lobe.. She was started on antibiotics and is doing well. She is also on granix., to bring her wbc count from 0.6 to 47.0. Past Patient History - Infectious Disease Hx of Infectious Diseases: None - Past Medical History & Family History Past Medical History?: Yes - Past Social History Smoking Status: Former Smoker Chewing Tobacco Use: No Cigar Use: No Alcohol: None Drugs: Denies - CARDIAC Hx Congestive Heart Failure: Yes Hx Hypercholesterolemia: Yes Hx Hypertension: Yes - PULMONARY Hx Chronic Obstructive Pulmonary Disease (COPD): Yes - NEUROLOGICAL Hx Neurological Disorder: No - HEENT Hx HEENT Problems: Yes (Hearing loss in the right ear.) - RENAL Hx Chronic Kidney Disease: No - ENDOCRINE/METABOLIC Hx Diabetes Mellitus Type 2: Yes Hx Hypothyroidism: Yes - HEMATOLOGICAL/ONCOLOGICAL Hx Anemia: Yes Hx Blood Transfusions: Yes Hx Cancer: Yes (b cell lymphoma) Hx Chemotherapy: Yes - INTEGUMENTARY Hx Dermatological Problems: No - MUSCULOSKELETAL/RHEUMATOLOGICAL Hx Falls: Yes - GASTROINTESTINAL Hx Gastritis: Yes - GENITOURINARY/GYNECOLOGICAL Hx Genitourinary Disorders: No - PSYCHIATRIC Hx Psychophysiologic Disorder: No Hx Substance Use: No - SURGICAL HISTORY Hx Coronary Artery Bypass Graft: Yes (2000) Hx Coronary Stent: Yes (PCI 2007 and 2010) Other/Comment: meg knee replacement - ANESTHESIA Hx Anesthesia: Yes Hx Anesthesia Reactions: No Hx Malignant Hyperthermia: No Meds Allergies/Adverse Reactions: Allergies Allergy/AdvReac Type Severity Reaction Status Date / Time No Known Allergies Allergy Verified 10/19/17 11:23 - Medications Medications: Current Medications Acetaminophen (Tylenol 650 Mg Supp) 650 mg [place] Q6 PRN PRN Reason: Fever >100.4 F Last Admin: 11/14/17 00:35 Dose: 650 mg Albuterol/Ipratropium (Duoneb 3 Mg/0.5 Mg (3 Ml) Ud) 3 ml INH RQ4 PRN PRN Reason: Shortness of Breath Albuterol/Ipratropium (Duoneb 3 Mg/0.5 Mg (3 Ml) Ud) 3 ml INH RQID [facility] Last Admin: 11/15/17 07:54 Dose: 3 ml Allopurinol (Zyloprim) 100 mg PO DAILY [facility] Last Admin: 11/14/17 11:37 Dose: 100 mg Atorvastatin Calcium (Lipitor) 10 mg PO DAILY [facility] Last Admin: 11/14/17 11:37 Dose: 10 mg Cholecalciferol (Vitamin D) 1,000 intlu PO DAILY [facility] Last Admin: 11/14/17 11:37 Dose: 1,000 intlu Docusate Sodium (Colace) 100 mg PO BID PRN PRN Reason: Constipation Emollient Ointment (Vaseline Oint) 1 pkt TOP BID [facility] Last Admin: 11/14/17 16:54 Dose: 1 pkt Epoetin Rolo (Procrit) 40,000 unit SC ONCE [facility] Vancomycin HCl 1 gm/ Sodium (Chloride) 250 mls @ 166.667 mls/hr IVPB Q12H [facility] PRN Reason: Protocol Last Admin: 11/15/17 01:30 Dose: 166.667 mls/hr Piperacillin Sod/Tazobactam (Sod 3.375 gm/ Sodium Chloride) 100 mls @ 100 mls/ hr IVPB Q6 [facility] PRN Reason: Protocol Last Admin: 11/15/17 04:00 Dose: 100 mls/hr Ceftaroline Fosamil 400 mg/ (Sodium Chloride) 100 mls @ 100 mls/hr IVPB Q12H [facility] PRN Reason: Protocol Last Admin: 11/15/17 01:31 Dose: 100 mls/hr Ibuprofen (Motrin Tab) 400 mg PO Q6 PRN PRN Reason: Fever >100.4 F Insulin Human Lispro (Humalog) 0 units SC ACHS [facility] PRN Reason: Protocol Last Admin: 11/15/17 07:25 Dose: 2 u Levothyroxine Sodium (Synthroid) 50 mcg PO DAILY@0630 [facility] Last Admin: 11/15/17 07:25 Dose: 50 mcg Metoprolol Tartrate (Lopressor) 50 mg PO Q12 [facility] Last Admin: 11/14/17 20:07 Dose: 50 mg Multivitamins/Minerals (Therapeutic-M Tab) 1 tab PO DAILY [facility] Last Admin: 11/14/17 11:37 Dose: 1 tab Ondansetron HCl (Zofran Inj) 4 mg IVP Q6 PRN PRN Reason: Nausea/Vomiting Last Admin: 11/13/17 17:15 Dose: 4 mg Sitagliptin Phosphate (Januvia) 100 mg PO DAILY [facility] Last Admin: 11/14/17 11:36 Dose: 100 mg Trimethoprim/Sulfamethoxazole (Bactrim Ds Tab) 1 tab PO BID [facility] PRN Reason: Protocol Last Admin: 11/14/17 16:53 Dose: 1 tab Results - Vital Signs Recent Vital Signs: Last Vital Signs Temp 98.5 F 11/15/17 08:00 Pulse 120 H 11/15/17 08:00 Resp 25 H 11/15/17 08:00 BP 119/72 11/15/17 08:00 Pulse Ox 100 11/15/17 08:00 - Labs Result Diagrams: 11/14/17 08:50 11/14/17 08:50 Labs: Laboratory Results - last 24 hr 11/14/17 11/14/17 11/14/17 08:50 08:50 11:28 WBC 0.2 L* RBC 2.99 L Hgb 8.0 L Hct 23.7 L MCV 79.5 L MCH 26.7 L MCHC 33.6 RDW 17.8 H Plt Count 50 L Sodium 129 L Potassium 3.5 L Chloride 98 Carbon Dioxide 23 Anion Gap 12 BUN 19 H Creatinine 1.2 Est GFR ( Amer) 53 Est GFR (Non-Af Amer) 44 POC Glucose (mg/dL) 213 H Random Glucose 157 H Calcium 8.3 L Total Bilirubin 1.5 H AST 12 L ALT 27 Alkaline Phosphatase 62 Total Protein 4.5 L Albumin 2.6 L Globulin 1.9 L Albumin/Globulin Ratio 1.3 Urine Color Urine Clarity Urine pH Ur Specific [place] Urine Protein Urine Glucose (UA) Urine Ketones Urine Blood Urine Nitrate Urine Bilirubin Urine Urobilinogen Ur Leukocyte Esterase Urine RBC (Auto) Urine Microscopic WBC Ur Squamous Epith Cells Urine Bacteria 11/14/17 11/14/17 11/14/17 16:56 19:40 22:18 WBC RBC Hgb Hct MCV MCH MCHC RDW Plt Count Sodium Potassium Chloride Carbon Dioxide Anion Gap BUN Creatinine Est GFR ( Amer) Est GFR (Non-Af Amer) POC Glucose (mg/dL) 217 H 217 H Random Glucose Calcium Total Bilirubin AST ALT Alkaline Phosphatase Total Protein Albumin Globulin Albumin/Globulin Ratio Urine Color [place] Urine Clarity Turbid Urine pH 6.0 Ur Specific [place] 1.021 Urine Protein 100 Urine Glucose (UA) 150 Urine Ketones Negative Urine Blood Small Urine Nitrate Negative Urine Bilirubin Negative Urine Urobilinogen 2.0 H Ur Leukocyte Esterase Small Urine RBC (Auto) 6 H Urine Microscopic WBC 7 H Ur Squamous Epith Cells 2 Urine Bacteria Few H 11/15/17 06:41 WBC RBC Hgb Hct MCV MCH MCHC RDW Plt Count Sodium Potassium Chloride Carbon Dioxide Anion Gap BUN Creatinine Est GFR ( Amer) Est GFR (Non-Af Amer) POC Glucose (mg/dL) 210 H Random Glucose Calcium Total Bilirubin AST ALT Alkaline Phosphatase Total Protein Albumin Globulin Albumin/Globulin Ratio Urine Color Urine Clarity Urine pH Ur Specific [place] Urine Protein Urine Glucose (UA) Urine Ketones Urine Blood Urine Nitrate Urine Bilirubin Urine Urobilinogen Ur Leukocyte Esterase Urine RBC (Auto) Urine Microscopic WBC Ur Squamous Epith Cells Urine Bacteria
--- NOTE | 2017-11-15 09:03 | CP.PCM.PN ---
Subjective - Date & Time of Evaluation Date of Evaluation: 11/15/17 Time of Evaluation: 09:03 - Subjective Subjective: The patient was seen on rounds in the intensive care unit this morning. Her case was discussed with cardiology as well as oncology. She does appear to be more comfortable and awake this morning. She has remained afebrile on her current medical regimen. Leukopenia of 0.2 with platelet count of 50,000. Culture results have not returned as of yet. On examination medium rales are heard posteriorly in the lower lobes of both lungs, more so right than left. No bronchial breathing or egophony. Scattered sonorous and sibilant rhonchi are heard bilaterally. No wheezing. Dependent edema is diminishing but still present. We'll discuss further with infectious disease. Medication adjustments have been made because of excessive adrenergic aerosol therapy possibly resulting in rapid ventricular rate. Objective - Vital Signs/Intake and Output Vital Signs (last 24 hours): Temp Pulse Resp BP Pulse Ox 98.5 F 127 H 25 H 119/72 100 11/15/17 08:00 11/15/17 08:54 11/15/17 08:00 11/15/17 08:54 11/15/17 08:00 Intake and Output: 11/14/17 11/15/17 23:59 11:59 Intake Total 1120 284 Output Total 200 Balance 1120 84 - Medications Medications: Current Medications Acetaminophen (Tylenol 650 Mg Supp) 650 mg [place] Q6 PRN PRN Reason: Fever >100.4 F Last Admin: 11/14/17 00:35 Dose: 650 mg Albuterol/Ipratropium (Duoneb 3 Mg/0.5 Mg (3 Ml) Ud) 3 ml INH RQ4 PRN PRN Reason: Shortness of Breath Albuterol/Ipratropium (Duoneb 3 Mg/0.5 Mg (3 Ml) Ud) 3 ml INH RQID [facility] Last Admin: 11/15/17 07:54 Dose: 3 ml Allopurinol (Zyloprim) 100 mg PO DAILY [facility] Last Admin: 11/15/17 08:53 Dose: 100 mg Atorvastatin Calcium (Lipitor) 10 mg PO DAILY [facility] Last Admin: 11/15/17 08:53 Dose: 10 mg Cholecalciferol (Vitamin D) 1,000 intlu PO DAILY [facility] Last Admin: 11/15/17 08:54 Dose: 1,000 intlu Docusate Sodium (Colace) 100 mg PO BID PRN PRN Reason: Constipation Emollient Ointment (Vaseline Oint) 1 pkt TOP BID [facility] Last Admin: 11/15/17 08:53 Dose: 1 pkt Epoetin Rolo (Procrit) 40,000 unit SC ONCE [facility] Vancomycin HCl 1 gm/ Sodium (Chloride) 250 mls @ 166.667 mls/hr IVPB Q12H [facility] PRN Reason: Protocol Last Admin: 11/15/17 01:30 Dose: 166.667 mls/hr Piperacillin Sod/Tazobactam (Sod 3.375 gm/ Sodium Chloride) 100 mls @ 100 mls/ hr IVPB Q6 [facility] PRN Reason: Protocol Last Admin: 11/15/17 04:00 Dose: 100 mls/hr Ceftaroline Fosamil 400 mg/ (Sodium Chloride) 100 mls @ 100 mls/hr IVPB Q12H [facility] PRN Reason: Protocol Last Admin: 11/15/17 01:31 Dose: 100 mls/hr Ibuprofen (Motrin Tab) 400 mg PO Q6 PRN PRN Reason: Fever >100.4 F Insulin Human Lispro (Humalog) 0 units SC ACHS [facility] PRN Reason: Protocol Last Admin: 11/15/17 07:25 Dose: 2 u Levothyroxine Sodium (Synthroid) 50 mcg PO DAILY@0630 [facility] Last Admin: 11/15/17 07:25 Dose: 50 mcg Metoprolol Tartrate (Lopressor) 50 mg PO Q12 [facility] Last Admin: 11/15/17 08:54 Dose: 50 mg Multivitamins/Minerals (Therapeutic-M Tab) 1 tab PO DAILY [facility] Last Admin: 11/15/17 08:53 Dose: 1 tab Ondansetron HCl (Zofran Inj) 4 mg IVP Q6 PRN PRN Reason: Nausea/Vomiting Last Admin: 11/13/17 17:15 Dose: 4 mg Sitagliptin Phosphate (Januvia) 100 mg PO DAILY [facility] Last Admin: 11/15/17 08:53 Dose: 100 mg Trimethoprim/Sulfamethoxazole (Bactrim Ds Tab) 1 tab PO BID [facility] PRN Reason: Protocol Last Admin: 11/15/17 08:52 Dose: 1 tab - Labs Labs: 11/14/17 08:50 11/14/17 08:50 Assessment and Plan (1) Pneumonia Status: Acute (2) Pancytopenia Status: Acute (3) B-cell lymphoma Status: Chronic (4) COPD (chronic obstructive pulmonary disease) Status: Chronic
[2017-11-15 10:01] LABS: BASO % 0.7 % (0.0-2.0); EOS % 6.2 % (0.0-4.0); HEMOGLOBIN 7.9 g/dL (12.0-16.0); LYMPH # 0.1 K/uL (1.0-4.3); LYMPH % 24.9 % (20.0-40.0); MEAN CELL VOLUME 80.9 fl (81.0-99.0); MEAN CORPUSCULAR HEMOGLOBIN 26.1 pg (27.0-31.0); MEAN CORPUSCULAR HGB CONC 32.2 g/dL (33.0-37.0); MEAN PLATELET VOLUME 10.2 fl (7.2-11.7); MONO # 0.1 K/uL (0.0-0.8); MONO % 26.2 % (0.0-10.0); NEUT # 0.2 K/uL (1.8-7.0); RBC 3.03 Mil/uL (3.80-5.20); RED CELL DISTRIBUTION WIDTH 18.2 % (11.5-14.5)
[2017-11-15 10:08] LABS: WHITE BLOOD COUNT 0.5 K/uL (4.8-10.8)
--- NOTE | 2017-11-15 10:56 | CP.PCM.CON ---
History of Present Illness - History of Present Illness History of Present Illness: This 77-year-old female is well known to me over the last 15 years. She is a long-standing hypertensive diabetic with a history of chronic table coronary artery disease who had required coronary bypass graft surgery more than 13 years back. She has developed atrial fibrillation and has been on an oral anticoagulation for the same. She developed myelodysplastic syndrome approximately one year back and was found to have lymphoma couple of weeks back. She was recently started on chemotherapy and developed neutropenia and needed urgent hospitalization in intensive care unit with isolation intravenous anti-biotics. The patient at this juncture is responding well to this therapy. This consultation was requested for persistent tachycardia. Physical examination shows a middle aged female who is alert awake coherent and afebrile at this juncture. Her heart rate was 115 bpm and irregular. Her blood pressure was 126/74 mmHg. Her jugular venous pressure was not elevated and there was no edema over lower extremities. The pedal pulses were feeble but distinct of present. Extremities were warm and nailbeds were slightly pale. There was no central or peripheral cyanosis. There was no clubbing. Her apex was not palpable. The first and second heart sounds were normal. A very brief systolic murmur was audible in the aortic area with preserved second heart sound. There were no rales. Her abdomen was mildly distended with an enlarged spleen. There were no tender areas. Thyroid was not enlarged. There was no carotid bruit. Her electro-cardiogram shows atrial fibrillation but no Q waves. A recently done echocardiogram shows preserved left ventricular systolic function with mild to moderate mitral regurgitation. Her lab data was noted. Impression: Stable coronary artery disease with status post coronary bypass graft surgery. Hypertension diabetes mellitus chronic atrial fibrillation. Myelodysplastic syndrome with lymphoma. Neutropenia secondary to chemotherapy. The patient at this juncture is hemodynamically stable she has received intravenous fluids I will add a small dose of beta blockade to control her heart rate. I will follow the patient with you thank you Past Patient History - Infectious Disease Hx of Infectious Diseases: None - Past Medical History & Family History Past Medical History?: Yes - Past Social History Smoking Status: Former Smoker Chewing Tobacco Use: No Cigar Use: No Alcohol: None Drugs: Denies - CARDIAC Hx Congestive Heart Failure: Yes Hx Hypercholesterolemia: Yes Hx Hypertension: Yes - PULMONARY Hx Chronic Obstructive Pulmonary Disease (COPD): Yes - NEUROLOGICAL Hx Neurological Disorder: No - HEENT Hx HEENT Problems: Yes (Hearing loss in the right ear.) - RENAL Hx Chronic Kidney Disease: No - ENDOCRINE/METABOLIC Hx Diabetes Mellitus Type 2: Yes Hx Hypothyroidism: Yes - HEMATOLOGICAL/ONCOLOGICAL Hx Anemia: Yes Hx Blood Transfusions: Yes Hx Cancer: Yes (b cell lymphoma) Hx Chemotherapy: Yes - INTEGUMENTARY Hx Dermatological Problems: No - MUSCULOSKELETAL/RHEUMATOLOGICAL Hx Falls: Yes - GASTROINTESTINAL Hx Gastritis: Yes - GENITOURINARY/GYNECOLOGICAL Hx Genitourinary Disorders: No - PSYCHIATRIC Hx Psychophysiologic Disorder: No Hx Substance Use: No - SURGICAL HISTORY Hx Coronary Artery Bypass Graft: Yes (2000) Hx Coronary Stent: Yes (PCI 2007 and 2010) Other/Comment: meg knee replacement - ANESTHESIA Hx Anesthesia: Yes Hx Anesthesia Reactions: No Hx Malignant Hyperthermia: No Meds Allergies/Adverse Reactions: Allergies Allergy/AdvReac Type Severity Reaction Status Date / Time No Known Allergies Allergy Verified 10/19/17 11:23 - Medications Medications: Current Medications Acetaminophen (Tylenol 650 Mg Supp) 650 mg [place] Q6 PRN PRN Reason: Fever >100.4 F Last Admin: 11/14/17 00:35 Dose: 650 mg Albuterol/Ipratropium (Duoneb 3 Mg/0.5 Mg (3 Ml) Ud) 3 ml INH RQ4 PRN PRN Reason: Shortness of Breath Albuterol/Ipratropium (Duoneb 3 Mg/0.5 Mg (3 Ml) Ud) 3 ml INH RQID [facility] Last Admin: 11/15/17 07:54 Dose: 3 ml Allopurinol (Zyloprim) 100 mg PO DAILY [facility] Last Admin: 11/15/17 08:53 Dose: 100 mg Atorvastatin Calcium (Lipitor) 10 mg PO DAILY [facility] Last Admin: 11/15/17 08:53 Dose: 10 mg Cholecalciferol (Vitamin D) 1,000 intlu PO DAILY [facility] Last Admin: 11/15/17 08:54 Dose: 1,000 intlu Docusate Sodium (Colace) 100 mg PO BID PRN PRN Reason: Constipation Emollient Ointment (Vaseline Oint) 1 pkt TOP BID [facility] Last Admin: 11/15/17 08:53 Dose: 1 pkt Epoetin Rolo (Procrit) 40,000 unit SC ONCE [facility] Vancomycin HCl 1 gm/ Sodium (Chloride) 250 mls @ 166.667 mls/hr IVPB Q12H [facility] PRN Reason: Protocol Last Admin: 11/15/17 01:30 Dose: 166.667 mls/hr Piperacillin Sod/Tazobactam (Sod 3.375 gm/ Sodium Chloride) 100 mls @ 100 mls/ hr IVPB Q6 [facility] PRN Reason: Protocol Last Admin: 11/15/17 09:09 Dose: 100 mls/hr Ceftaroline Fosamil 400 mg/ (Sodium Chloride) 100 mls @ 100 mls/hr IVPB Q12H [facility] PRN Reason: Protocol Last Admin: 11/15/17 01:31 Dose: 100 mls/hr Ibuprofen (Motrin Tab) 400 mg PO Q6 PRN PRN Reason: Fever >100.4 F Insulin Human Lispro (Humalog) 0 units SC ACHS [facility] PRN Reason: Protocol Last Admin: 11/15/17 07:25 Dose: 2 u Levothyroxine Sodium (Synthroid) 50 mcg PO DAILY@0630 [facility] Last Admin: 11/15/17 07:25 Dose: 50 mcg Metoprolol Tartrate (Lopressor) 50 mg PO Q12 [facility] Last Admin: 11/15/17 08:54 Dose: 50 mg Multivitamins/Minerals (Therapeutic-M Tab) 1 tab PO DAILY [facility] Last Admin: 11/15/17 08:53 Dose: 1 tab Ondansetron HCl (Zofran Inj) 4 mg IVP Q6 PRN PRN Reason: Nausea/Vomiting Last Admin: 11/13/17 17:15 Dose: 4 mg Sitagliptin Phosphate (Januvia) 100 mg PO DAILY [facility] Last Admin: 11/15/17 08:53 Dose: 100 mg Trimethoprim/Sulfamethoxazole (Bactrim Ds Tab) 1 tab PO BID [facility] PRN Reason: Protocol Last Admin: 11/15/17 08:52 Dose: 1 tab Results - Vital Signs Recent Vital Signs: Last Vital Signs Temp 98.5 F 11/15/17 08:00 Pulse 127 H 11/15/17 08:54 Resp 25 H 11/15/17 08:00 BP 119/72 11/15/17 08:54 Pulse Ox 100 11/15/17 08:00 - Labs Result Diagrams: 11/15/17 09:15 11/14/17 08:50 Labs: Laboratory Results - last 24 hr 11/14/17 11/14/17 11/14/17 11:28 16:56 19:40 WBC RBC Hgb Hct MCV MCH MCHC RDW Plt Count MPV Neut % (Auto) Lymph % (Auto) [place] % (Auto) Eos % (Auto) Baso % (Auto) Neut # (Auto) Lymph # (Auto) [place] # (Auto) Eos # (Auto) Baso # (Auto) POC Glucose (mg/dL) 213 H 217 H Urine Color [place] Urine Clarity Turbid Urine pH 6.0 Ur Specific [place] 1.021 Urine Protein 100 Urine Glucose (UA) 150 Urine Ketones Negative Urine Blood Small Urine Nitrate Negative Urine Bilirubin Negative Urine Urobilinogen 2.0 H Ur Leukocyte Esterase Small Urine RBC (Auto) 6 H Urine Microscopic WBC 7 H Ur Squamous Epith Cells 2 Urine Bacteria Few H Blood Type Antibody Screen Crossmatch BBK History Checked 11/14/17 11/15/17 11/15/17 22:18 06:41 09:15 WBC 0.5 L* D RBC 3.03 L Hgb 7.9 L Hct 24.5 L MCV 80.9 L MCH 26.1 L MCHC 32.2 L RDW 18.2 H Plt Count 53 L MPV 10.2 Neut % (Auto) 42.0 L Lymph % (Auto) 24.9 [place] % (Auto) 26.2 H Eos % (Auto) 6.2 H Baso % (Auto) 0.7 Neut # (Auto) 0.2 L Lymph # (Auto) 0.1 L [place] # (Auto) 0.1 Eos # (Auto) 0.0 Baso # (Auto) 0.0 POC Glucose (mg/dL) 217 H 210 H Urine Color Urine Clarity Urine pH Ur Specific [place] Urine Protein Urine Glucose (UA) Urine Ketones Urine Blood Urine Nitrate Urine Bilirubin Urine Urobilinogen Ur Leukocyte Esterase Urine RBC (Auto) Urine Microscopic WBC Ur Squamous Epith Cells Urine Bacteria Blood Type Antibody Screen Crossmatch BBK History Checked 11/15/17 09:15 WBC RBC Hgb Hct MCV MCH MCHC RDW Plt Count MPV Neut % (Auto) Lymph % (Auto) [place] % (Auto) Eos % (Auto) Baso % (Auto) Neut # (Auto) Lymph # (Auto) [place] # (Auto) Eos # (Auto) Baso # (Auto) POC Glucose (mg/dL) Urine Color Urine Clarity Urine pH Ur Specific [place] Urine Protein Urine Glucose (UA) Urine Ketones Urine Blood Urine Nitrate Urine Bilirubin Urine Urobilinogen Ur Leukocyte Esterase Urine RBC (Auto) Urine Microscopic WBC Ur Squamous Epith Cells Urine Bacteria Blood Type A POSITIVE Antibody Screen Negative Crossmatch See Detail BBK History Checked Patient has bt
--- NOTE | 2017-11-15 12:40 | CP.PCM.PN ---
Subjective - Date & Time of Evaluation Date of Evaluation: 11/15/17 Time of Evaluation: 12:40 - Subjective Subjective: I D NOTE WBC:O.5 CREATININE HAS INCREASED HAVE ADJUSTED DOSE OF VANCOMYCIN AND DISCONTINUED ZOSYN CONTINUE TEFLARO,START CLINDAMYCIN FOR ANAROBIC ,STAPH,AND CAN GIVE SOME PCP COVERAGE ZITHROMAX 600MG 2 TABS WEEKLY FOR MAC /ATYPICAL PNEUMONIA PROPHLAXSIS LUNGS:STILL HAS SOME RALES AT BASES BILATERALLY BUT IMPROVED SINCE YESTERDAY HAS DRY COUGH WILL RECEIVE 2 UNITS PRBC Objective - Vital Signs/Intake and Output Vital Signs (last 24 hours): Temp Pulse Resp BP Pulse Ox 97.4 F L 108 H 31 H 113/61 100 11/15/17 12:00 11/15/17 12:00 11/15/17 12:00 11/15/17 12:00 11/15/17 12:00 Intake and Output: 11/15/17 11/15/17 06:59 18:59 Intake Total 500 114 Output Total 200 Balance 300 114 - Medications Medications: Current Medications Acetaminophen (Tylenol 650 Mg Supp) 650 mg [place] Q6 PRN PRN Reason: Fever >100.4 F Last Admin: 11/14/17 00:35 Dose: 650 mg Albuterol/Ipratropium (Duoneb 3 Mg/0.5 Mg (3 Ml) Ud) 3 ml INH RTID [facility] Allopurinol (Zyloprim) 100 mg PO DAILY [facility] Last Admin: 11/15/17 08:53 Dose: 100 mg Atorvastatin Calcium (Lipitor) 10 mg PO DAILY [facility] Last Admin: 11/15/17 08:53 Dose: 10 mg Cholecalciferol (Vitamin D) 1,000 intlu PO DAILY [facility] Last Admin: 11/15/17 08:54 Dose: 1,000 intlu Docusate Sodium (Colace) 100 mg PO BID PRN PRN Reason: Constipation Emollient Ointment (Vaseline Oint) 1 pkt TOP BID [facility] Last Admin: 11/15/17 08:53 Dose: 1 pkt Epoetin Rolo (Procrit) 40,000 unit SC ONCE [facility] Ceftaroline Fosamil 400 mg/ (Sodium Chloride) 100 mls @ 100 mls/hr IVPB Q12H [facility] PRN Reason: Protocol Last Admin: 11/15/17 01:31 Dose: 100 mls/hr Vancomycin HCl 500 mg/ Sodium (Chloride) 100 mls @ 100 mls/hr IVPB Q12 [facility] PRN Reason: Protocol Ibuprofen (Motrin Tab) 400 mg PO Q6 PRN PRN Reason: Fever >100.4 F Insulin Human Lispro (Humalog) 0 units SC ACHS [facility] PRN Reason: Protocol Last Admin: 11/15/17 12:36 Dose: 1 u Levothyroxine Sodium (Synthroid) 50 mcg PO DAILY@0630 [facility] Last Admin: 11/15/17 07:25 Dose: 50 mcg Metoprolol Tartrate (Lopressor) 50 mg PO Q12 [facility] Last Admin: 11/15/17 08:54 Dose: 50 mg Multivitamins/Minerals (Therapeutic-M Tab) 1 tab PO DAILY [facility] Last Admin: 11/15/17 08:53 Dose: 1 tab Ondansetron HCl (Zofran Inj) 4 mg IVP Q6 PRN PRN Reason: Nausea/Vomiting Last Admin: 11/13/17 17:15 Dose: 4 mg Sitagliptin Phosphate (Januvia) 100 mg PO DAILY [facility] Last Admin: 11/15/17 08:53 Dose: 100 mg Trimethoprim/Sulfamethoxazole (Bactrim Ds Tab) 1 tab PO BID [facility] PRN Reason: Protocol Last Admin: 11/15/17 08:52 Dose: 1 tab - Labs Labs: 11/15/17 09:15 11/14/17 08:50
--- NOTE | 2017-11-15 12:46 | CP.PCM.PN ---
Subjective - Date & Time of Evaluation Date of Evaluation: 11/15/17 Time of Evaluation: 12:00 - Subjective Subjective: No fever no SOB occ cough no CP no bleeding denies abd pain sl pedal edema Objective - Vital Signs/Intake and Output Vital Signs (last 24 hours): Temp Pulse Resp BP Pulse Ox 97.4 F L 108 H 31 H 113/61 100 11/15/17 12:00 11/15/17 12:00 11/15/17 12:00 11/15/17 12:00 11/15/17 12:00 Intake and Output: 11/15/17 11/15/17 06:59 18:59 Intake Total 500 114 Output Total 200 Balance 300 114 - Medications Medications: Current Medications Acetaminophen (Tylenol 650 Mg Supp) 650 mg [place] Q6 PRN PRN Reason: Fever >100.4 F Last Admin: 11/14/17 00:35 Dose: 650 mg Albuterol/Ipratropium (Duoneb 3 Mg/0.5 Mg (3 Ml) Ud) 3 ml INH RTID [facility] Allopurinol (Zyloprim) 100 mg PO DAILY [facility] Last Admin: 11/15/17 08:53 Dose: 100 mg Atorvastatin Calcium (Lipitor) 10 mg PO DAILY [facility] Last Admin: 11/15/17 08:53 Dose: 10 mg Cholecalciferol (Vitamin D) 1,000 intlu PO DAILY [facility] Last Admin: 11/15/17 08:54 Dose: 1,000 intlu Docusate Sodium (Colace) 100 mg PO BID PRN PRN Reason: Constipation Emollient Ointment (Vaseline Oint) 1 pkt TOP BID [facility] Last Admin: 11/15/17 08:53 Dose: 1 pkt Epoetin Rolo (Procrit) 40,000 unit SC ONCE [facility] Ceftaroline Fosamil 400 mg/ (Sodium Chloride) 100 mls @ 100 mls/hr IVPB Q12H [facility] PRN Reason: Protocol Last Admin: 11/15/17 01:31 Dose: 100 mls/hr Vancomycin HCl 500 mg/ Sodium (Chloride) 100 mls @ 100 mls/hr IVPB Q12 [facility] PRN Reason: Protocol Ibuprofen (Motrin Tab) 400 mg PO Q6 PRN PRN Reason: Fever >100.4 F Insulin Human Lispro (Humalog) 0 units SC ACHS [facility] PRN Reason: Protocol Last Admin: 11/15/17 12:36 Dose: 1 u Levothyroxine Sodium (Synthroid) 50 mcg PO DAILY@0630 [facility] Last Admin: 11/15/17 07:25 Dose: 50 mcg Metoprolol Tartrate (Lopressor) 50 mg PO Q12 [facility] Last Admin: 11/15/17 08:54 Dose: 50 mg Multivitamins/Minerals (Therapeutic-M Tab) 1 tab PO DAILY [facility] Last Admin: 11/15/17 08:53 Dose: 1 tab Ondansetron HCl (Zofran Inj) 4 mg IVP Q6 PRN PRN Reason: Nausea/Vomiting Last Admin: 11/13/17 17:15 Dose: 4 mg Sitagliptin Phosphate (Januvia) 100 mg PO DAILY [facility] Last Admin: 11/15/17 08:53 Dose: 100 mg Trimethoprim/Sulfamethoxazole (Bactrim Ds Tab) 1 tab PO BID [facility] PRN Reason: Protocol Last Admin: 11/15/17 08:52 Dose: 1 tab - Labs Labs: 11/15/17 09:15 11/14/17 08:50 - Constitutional Appears: Non-toxic, No Acute Distress, Chronically Ill - Head Exam Head Exam: NORMAL INSPECTION, NORMOCEPHALIC - Eye Exam Eye Exam: EOMI, Normal appearance Pupil Exam: NORMAL ACCOMODATION - ENT Exam ENT Exam: Mucous Membranes Moist, Normal External Ear Exam - Neck Exam Neck Exam: Full ROM. absent: Meningismus - Respiratory Exam Respiratory Exam: Rales, Rhonchi, NORMAL BREATHING PATTERN. absent: Wheezes, Respiratory Distress - Cardiovascular Exam Cardiovascular Exam: Irregular Rhythm, +S1, +S2 - GI/Abdominal Exam GI & Abdominal Exam: Soft, Normal Bowel Sounds. absent: Tenderness - Extremities Exam Extremities Exam: Pedal Edema. absent: Calf Tenderness - Back Exam Back Exam: absent: CVA tenderness (L), CVA tenderness (R) - Neurological Exam Neurological Exam: Alert, Awake, Oriented x3 - Psychiatric Exam Psychiatric exam: Flat Affect, Normal Mood - Skin Skin Exam: Dry, Pallor, Warm Assessment and Plan - Assessment and Plan (Free Text) Assessment: 77 yr old f with medical history including A fib, CAD (CABG triple bypass), COPD , hypercholesterolemia, hypothyroidism, HTN, DM type 2, CHF, MDS, B Cell lymphoma presented from Infusion center per Dr. Luz Nunes for WBC 0.6. Pt also presents with constant moderate dyspnea, associated with fatigue and weakness. Patient appears ill, fatigued. CXR showed LLL infiltrate. Patient EKG AFIB with rate 135, Lopressor given. Vanc and Zosyn also initiated. 1. Sepsis 2/2 LLL Pna with Neutropenia afebrile, neutropenia, tachycardia, LA 0.8 Dr Suggs consulted cont Ken/Dinh lindsey for dyspnea and crackles Dr. Vazquez pulmonology consult appreciated 2.B-cell lymphoma Status: Acute Chemotherapy over two day duration completed a few days ago Dr. Nunes will continue to follow. 3. MDS (myelodysplastic syndrome) Status: Acute Chemotherapy, Dr. Nunes will continue to follow. 4. Pancytopenia sec to Chemotherapy Status: Acute Dr. Nunes will continue to follow Transfuse 2 units PTBC today Pt signed consent for transfusion 5. Chronic a-fib Continue current management Metoprolol 50mg po BID. Xarelto discontinued due to thrombocytopenia 6. COPD chronic Duonebs ordered PRN 7. Hyponatremia Status: Acute Na 126, will gently hydrate with NS, BUN elevated as well 8.Hypokalemia Replete PRN 9.Hypothyroid Continue home medication: Levothyroxine 50mcg daily. DVT prophylaxis Status: Acute Comment: Patient was on xarelto, d/c 2/2 thrombocytopenia, no anticoag
--- NOTE | 2017-11-15 16:16 | PQF ---
PROVIDER RESPONSE TEXT: Right Buttock Pressure Ulcer Stage II ( POA) REVIEWER QUERY TEXT: Pressure Ulcer Type Pressure ulcer is documented in the Medical Record by nursing Please specify the location, present on admission status and stage if you concur or other etiology . Location and laterality of pressure ulcer(s): POA status of each pressure ulcer: -- Not present on admission -- Present on admission -- Other -- Clinically unable to determine -- Unknown Stage of each pressure ulcer (National Pressure Ulcer Advisory Panel definitions): -- Stage I: Intact skin with non-blanchable redness of a localized area -- Stage II: Partial thickness skin loss involving dermis with a shallow open ulcer or an open serum -filled blister -- Stage III: Full thickness skin loss involving damage or necrosis of subcutaneous tissue -- Stage IV: Full thickness skin loss with exposed bone, tendon or muscle -- Unstageable: Full thickness tissue loss in which the base of the ulcer is covered by slough and/o r eschar in the wound bed The patient's Clinical Indicators include: Nursing admission data base has the following documentation: Pressure Ulcer Present : Yes Right Buttocks 0.5 cm x 0.5 cm. Partial thickness loss of dermis presenting as a shallow open ulcer. 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 Query created by: Ludivina Bower on 11/14/2017 9:33 AM Electronically signed by: Malu Berrios MD 11/15/2017 4:14 PM
[2017-11-15] MEDS ORDERED: Magnesium Sulfate 4 gm/100 ml 4 GM/100 ML BAG IVPB ONE (16:23)
[2017-11-15] MEDS ORDERED: Magnesium Sulfate 2 gm/50 ml 2 GM/50 ML BAG IVPB ONE (16:25)
[2017-11-15 18:46] LABS: ALB/GLOB RATIO 1.1 (1.0-2.1); ALBUMIN 2.4 g/dL (3.5-5.0); CALCIUM 7.3 mg/dL (8.4-10.2)
[2017-11-15] MEDS: Clindamycin 600mg/50ml NS 600 MG/50 ML BAG IVPB SCH (20:01)
[2017-11-16 06:21] LABS: BASO % 0.2 % (0.0-2.0); EOS # 0.1 K/uL (0.0-0.7); EOS % 2.2 % (0.0-4.0); HEMOGLOBIN 9.8 g/dL (12.0-16.0); LYMPH # 0.2 K/uL (1.0-4.3); MEAN CELL VOLUME 79.8 fl (81.0-99.0); MEAN CORPUSCULAR HEMOGLOBIN 27.1 pg (27.0-31.0); MEAN CORPUSCULAR HGB CONC 33.9 g/dL (33.0-37.0); MEAN PLATELET VOLUME 10.4 fl (7.2-11.7); MONO # 0.2 K/uL (0.0-0.8); MONO % 5.4 % (0.0-10.0); NEUT # 2.4 K/uL (1.8-7.0); NEUT % 85.2 % (50.0-75.0); NRBC % 0.7 % (0.0-0.0); RBC 3.63 Mil/uL (3.80-5.20); RED CELL DISTRIBUTION WIDTH 17.5 % (11.5-14.5); WHITE BLOOD COUNT 2.8 K/uL (4.8-10.8)
[2017-11-16] MEDS: Levothyroxine 50 MCG TAB PO SCH (06:42)
[2017-11-16] MEDS: Insulin Lispro (humaLOG) 100 Units/ml Inj SC SCH ×4 (06:42→21:32)
[2017-11-16 07:16] LABS: ALB/GLOB RATIO 1.3 (1.0-2.1); ALBUMIN 2.6 g/dL (3.5-5.0); CALCIUM 8.4 mg/dL (8.4-10.2)
[2017-11-16] MEDS: Albuterol-Ipratrop 3 mg / 0.5 (3 ml) UD INH SCH (07:56)
--- NOTE | 2017-11-16 08:38 | RAD ---
Date of service: 11/16/2017 HISTORY: pneumonia COMPARISON: Portable chest 11/14/2017. FINDINGS: A right MediPort is unchanged in position. LUNGS: Diminished airspace disease seen at the medial bases bilaterally. Improved aeration is noted throughout. PLEURA: No significant pleural effusion identified, no pneumothorax apparent. CARDIOVASCULAR: No definite pulmonary vascular congestion. Cardiomegaly appears stable. OSSEOUS STRUCTURES: Sternotomy wires reiterated. VISUALIZED UPPER ABDOMEN: Normal. OTHER FINDINGS: None. IMPRESSION: Diminished risk disease at the medial bases bilaterally with improved aeration throughout. No definite pulmonary vascular congestion. Stable cardiomegaly.
[2017-11-16] MEDS: Tmp-Smz 800 mg-160 mg DS Tab PO SCH (08:45)
[2017-11-16] MEDS: Multivitamin With Minerals Tab PO SCH (08:46)
[2017-11-16] MEDS: Petrolatum UD PAK TOP SCH ×2 (08:46→17:23)
[2017-11-16] MEDS: Cholecalciferol 1,000 INTLU TAB PO SCH (08:46)
--- NOTE | 2017-11-16 09:01 | CP.PCM.PN ---
Subjective - Date & Time of Evaluation Date of Evaluation: 11/16/17 Time of Evaluation: 08:59 - Subjective Subjective: Pt is feeling much better, her appetite is better, and she feels she has more energy. Her WBC count has gone up to 2.8 with an ANC of 2400. she is still on 4 antibiotics Will continue the granix until the WBc goes above 8.00. Objective - Vital Signs/Intake and Output Vital Signs (last 24 hours): Temp Pulse Resp BP Pulse Ox 98.9 F 113 H 24 121/78 100 11/16/17 08:00 11/16/17 08:46 11/16/17 08:00 11/16/17 08:00 11/16/17 08:00 Intake and Output: 11/16/17 11/16/17 06:59 18:59 Intake Total 390 Output Total 200 Balance 190 - Medications Medications: Current Medications Acetaminophen (Tylenol 650 Mg Supp) 650 mg [place] Q6 PRN PRN Reason: Fever >100.4 F Last Admin: 11/14/17 00:35 Dose: 650 mg Albuterol/Ipratropium (Duoneb 3 Mg/0.5 Mg (3 Ml) Ud) 3 ml INH RTID [facility] Last Admin: 11/16/17 07:56 Dose: 3 ml Allopurinol (Zyloprim) 100 mg PO DAILY [facility] Last Admin: 11/16/17 08:47 Dose: 100 mg Atorvastatin Calcium (Lipitor) 10 mg PO DAILY [facility] Last Admin: 11/16/17 08:46 Dose: 10 mg Azithromycin (Zithromax) 600 mg PO QWK [facility] PRN Reason: Protocol Cholecalciferol (Vitamin D) 1,000 intlu PO DAILY [facility] Last Admin: 11/16/17 08:46 Dose: 1,000 intlu Docusate Sodium (Colace) 100 mg PO BID PRN PRN Reason: Constipation Emollient Ointment (Vaseline Oint) 1 pkt TOP BID [facility] Last Admin: 11/16/17 08:46 Dose: 1 pkt Epoetin Rolo (Procrit) 40,000 unit SC ONCE [facility] Ceftaroline Fosamil 400 mg/ (Sodium Chloride) 100 mls @ 100 mls/hr IVPB Q12H [facility] PRN Reason: Protocol Last Admin: 11/16/17 01:47 Dose: 100 mls/hr Clindamycin Phosphate (Cleocin In Normal Saline) 600 mg in 50 mls @ 50 mls/hr IVPB Q12 [facility] PRN Reason: Protocol Last Admin: 11/15/17 20:01 Dose: 50 mls/hr Ibuprofen (Motrin Tab) 400 mg PO Q6 PRN PRN Reason: Fever >100.4 F Insulin Human Lispro (Humalog) 0 units SC ACHS [facility] PRN Reason: Protocol Last Admin: 11/16/17 06:42 Dose: 1 u Levothyroxine Sodium (Synthroid) 50 mcg PO DAILY@0630 [facility] Last Admin: 11/16/17 06:42 Dose: 50 mcg Metoprolol Tartrate (Lopressor) 50 mg PO Q12 [facility] Last Admin: 11/16/17 08:46 Dose: 50 mg Multivitamins/Minerals (Therapeutic-M Tab) 1 tab PO DAILY [facility] Last Admin: 11/16/17 08:46 Dose: 1 tab Ondansetron HCl (Zofran Inj) 4 mg IVP Q6 PRN PRN Reason: Nausea/Vomiting Last Admin: 11/13/17 17:15 Dose: 4 mg Sitagliptin Phosphate (Januvia) 100 mg PO DAILY [facility] Last Admin: 11/16/17 08:45 Dose: 100 mg Trimethoprim/Sulfamethoxazole (Bactrim Ds Tab) 1 tab PO BID [facility] PRN Reason: Protocol Last Admin: 11/16/17 08:45 Dose: 1 tab - Labs Labs: 11/16/17 04:30 11/16/17 04:30
--- NOTE | 2017-11-16 09:18 | CP.PCM.PN ---
Subjective - Date & Time of Evaluation Date of Evaluation: 11/16/17 Time of Evaluation: 09:00 - Subjective Subjective: Leucopenia resolving Tachycardia has largely resolved after albuterol was reduced/D.Bhupendra Afebrile. hemodynamically stable Not a good candidate for Beta blockade Will hold off any intervention (adding Digoxin) for rate control Discussed with Dr. Estrada Objective - Vital Signs/Intake and Output Vital Signs (last 24 hours): Temp Pulse Resp BP Pulse Ox 98.9 F 113 H 24 121/78 100 11/16/17 08:00 11/16/17 08:46 11/16/17 08:00 11/16/17 08:00 11/16/17 08:00 Intake and Output: 11/16/17 11/16/17 06:59 18:59 Intake Total 390 Output Total 200 Balance 190 - Medications Medications: Current Medications Acetaminophen (Tylenol 650 Mg Supp) 650 mg [place] Q6 PRN PRN Reason: Fever >100.4 F Last Admin: 11/14/17 00:35 Dose: 650 mg Allopurinol (Zyloprim) 100 mg PO DAILY [facility] Last Admin: 11/16/17 08:47 Dose: 100 mg Atorvastatin Calcium (Lipitor) 10 mg PO DAILY [facility] Last Admin: 11/16/17 08:46 Dose: 10 mg Azithromycin (Zithromax) 600 mg PO QWK [facility] PRN Reason: Protocol Cholecalciferol (Vitamin D) 1,000 intlu PO DAILY [facility] Last Admin: 11/16/17 08:46 Dose: 1,000 intlu Docusate Sodium (Colace) 100 mg PO BID PRN PRN Reason: Constipation Emollient Ointment (Vaseline Oint) 1 pkt TOP BID [facility] Last Admin: 11/16/17 08:46 Dose: 1 pkt Epoetin Rolo (Procrit) 40,000 unit SC ONCE [facility] Ceftaroline Fosamil 400 mg/ (Sodium Chloride) 100 mls @ 100 mls/hr IVPB Q12H [facility] PRN Reason: Protocol Last Admin: 11/16/17 01:47 Dose: 100 mls/hr Clindamycin Phosphate (Cleocin In Normal Saline) 600 mg in 50 mls @ 50 mls/hr IVPB Q12 [facility] PRN Reason: Protocol Last Admin: 11/15/17 20:01 Dose: 50 mls/hr Ibuprofen (Motrin Tab) 400 mg PO Q6 PRN PRN Reason: Fever >100.4 F Insulin Human Lispro (Humalog) 0 units SC ACHS [facility] PRN Reason: Protocol Last Admin: 11/16/17 06:42 Dose: 1 u Ipratropium [place] (Atrovent) 0.5 mg IH RQID [facility] Levalbuterol HCl (Xopenex) 0.63 mg INH RQ4 PRN PRN Reason: Shortness of Breath Levothyroxine Sodium (Synthroid) 50 mcg PO DAILY@0630 [facility] Last Admin: 11/16/17 06:42 Dose: 50 mcg Metoprolol Tartrate (Lopressor) 50 mg PO Q12 [facility] Last Admin: 11/16/17 08:46 Dose: 50 mg Multivitamins/Minerals (Therapeutic-M Tab) 1 tab PO DAILY [facility] Last Admin: 11/16/17 08:46 Dose: 1 tab Ondansetron HCl (Zofran Inj) 4 mg IVP Q6 PRN PRN Reason: Nausea/Vomiting Last Admin: 11/13/17 17:15 Dose: 4 mg Sitagliptin Phosphate (Januvia) 100 mg PO DAILY [facility] Last Admin: 11/16/17 08:45 Dose: 100 mg Trimethoprim/Sulfamethoxazole (Bactrim Ds Tab) 1 tab PO BID [facility] PRN Reason: Protocol Last Admin: 11/16/17 08:45 Dose: 1 tab - Labs Labs: 11/16/17 04:30 11/16/17 04:30
--- NOTE | 2017-11-16 09:19 | CP.PCM.PN ---
Subjective - Date & Time of Evaluation Date of Evaluation: 11/16/17 Time of Evaluation: 09:09 - Subjective Subjective: Awake, alert, eating breakfast. Labs reviewed with improvement in all parameters. Chest x-ray this morning shows improvement in the retrocardiac densities, but the left pat-diaphragm is not sharp suggesting some pleural effusion has accumulated. Her heart rate remains slightly tachy consistently. Discussed with cardiology and I will D/C albuteroL and use ipratropium alone. Levalbuterol, low dose, will be in reserve FOR prn use only. On exam there are still some rhonchi present in the lower lobes (R>L). Occasional medium rales in the lower lobes as well. No bronchial breaqth sounds. Late expiratory wheezes are present in the lower lobes of both lungs as well. Will adjust respiratory regimen as noted above. Continue all other medications as per ICU, Heme and ID. Objective - Vital Signs/Intake and Output Vital Signs (last 24 hours): Temp Pulse Resp BP Pulse Ox 98.9 F 113 H 24 121/78 100 11/16/17 08:00 11/16/17 08:46 11/16/17 08:00 11/16/17 08:00 11/16/17 08:00 Intake and Output: 11/15/17 11/16/17 23:59 11:59 Intake Total 1060 390 Output Total 200 200 Balance 860 190 - Medications Medications: Current Medications Acetaminophen (Tylenol 650 Mg Supp) 650 mg [place] Q6 PRN PRN Reason: Fever >100.4 F Last Admin: 11/14/17 00:35 Dose: 650 mg Allopurinol (Zyloprim) 100 mg PO DAILY [facility] Last Admin: 11/16/17 08:47 Dose: 100 mg Atorvastatin Calcium (Lipitor) 10 mg PO DAILY [facility] Last Admin: 11/16/17 08:46 Dose: 10 mg Azithromycin (Zithromax) 600 mg PO QWK [facility] PRN Reason: Protocol Cholecalciferol (Vitamin D) 1,000 intlu PO DAILY [facility] Last Admin: 11/16/17 08:46 Dose: 1,000 intlu Docusate Sodium (Colace) 100 mg PO BID PRN PRN Reason: Constipation Emollient Ointment (Vaseline Oint) 1 pkt TOP BID [facility] Last Admin: 11/16/17 08:46 Dose: 1 pkt Epoetin Rolo (Procrit) 40,000 unit SC ONCE [facility] Ceftaroline Fosamil 400 mg/ (Sodium Chloride) 100 mls @ 100 mls/hr IVPB Q12H [facility] PRN Reason: Protocol Last Admin: 11/16/17 01:47 Dose: 100 mls/hr Clindamycin Phosphate (Cleocin In Normal Saline) 600 mg in 50 mls @ 50 mls/hr IVPB Q12 [facility] PRN Reason: Protocol Last Admin: 11/15/17 20:01 Dose: 50 mls/hr Ibuprofen (Motrin Tab) 400 mg PO Q6 PRN PRN Reason: Fever >100.4 F Insulin Human Lispro (Humalog) 0 units SC ACHS [facility] PRN Reason: Protocol Last Admin: 11/16/17 06:42 Dose: 1 u Ipratropium [place] (Atrovent) 0.5 mg IH RQID [facility] Levalbuterol HCl (Xopenex) 0.63 mg INH RQ4 PRN PRN Reason: Shortness of Breath Levothyroxine Sodium (Synthroid) 50 mcg PO DAILY@0630 [facility] Last Admin: 11/16/17 06:42 Dose: 50 mcg Metoprolol Tartrate (Lopressor) 50 mg PO Q12 [facility] Last Admin: 11/16/17 08:46 Dose: 50 mg Multivitamins/Minerals (Therapeutic-M Tab) 1 tab PO DAILY [facility] Last Admin: 11/16/17 08:46 Dose: 1 tab Ondansetron HCl (Zofran Inj) 4 mg IVP Q6 PRN PRN Reason: Nausea/Vomiting Last Admin: 11/13/17 17:15 Dose: 4 mg Sitagliptin Phosphate (Januvia) 100 mg PO DAILY [facility] Last Admin: 11/16/17 08:45 Dose: 100 mg Trimethoprim/Sulfamethoxazole (Bactrim Ds Tab) 1 tab PO BID [facility] PRN Reason: Protocol Last Admin: 11/16/17 08:45 Dose: 1 tab - Labs Labs: 11/16/17 04:30 11/16/17 04:30 Assessment and Plan (1) Pneumonia Status: Acute (2) Pancytopenia Status: Acute (3) B-cell lymphoma Status: Chronic (4) COPD (chronic obstructive pulmonary disease) Status: Chronic
[2017-11-16] MEDS: Clindamycin 600mg/50ml NS 600 MG/50 ML BAG IVPB SCH ×2 (09:30→21:31)
[2017-11-16] MEDS: Ipratropium 0.02% Inhal Soln (0.5 mg/2.5 ml) UD IH SCH ×3 (11:43→19:01)
--- NOTE | 2017-11-16 13:38 | CP.PCM.PN ---
Subjective - Date & Time of Evaluation Date of Evaluation: 11/16/17 Time of Evaluation: 13:00 - Subjective Subjective: Pt has no fever still with cough no SOB, sl wheeze WBC Ct better today - reverse isolation d/c denies CP no abd pain Objective - Vital Signs/Intake and Output Vital Signs (last 24 hours): Temp Pulse Resp BP Pulse Ox 98.0 F 110 H 29 H 119/69 99 11/16/17 12:00 11/16/17 12:00 11/16/17 12:00 11/16/17 12:00 11/16/17 12:00 Intake and Output: 11/16/17 11/16/17 06:59 18:59 Intake Total 390 694 Output Total 200 Balance 190 694 - Medications Medications: Current Medications Acetaminophen (Tylenol 650 Mg Supp) 650 mg [place] Q6 PRN PRN Reason: Fever >100.4 F Last Admin: 11/14/17 00:35 Dose: 650 mg Allopurinol (Zyloprim) 100 mg PO DAILY [facility] Last Admin: 11/16/17 08:47 Dose: 100 mg Atorvastatin Calcium (Lipitor) 10 mg PO DAILY [facility] Last Admin: 11/16/17 08:46 Dose: 10 mg Azithromycin (Zithromax) 600 mg PO QWK [facility] PRN Reason: Protocol Cholecalciferol (Vitamin D) 1,000 intlu PO DAILY [facility] Last Admin: 11/16/17 08:46 Dose: 1,000 intlu Docusate Sodium (Colace) 100 mg PO BID PRN PRN Reason: Constipation Emollient Ointment (Vaseline Oint) 1 pkt TOP BID [facility] Last Admin: 11/16/17 08:46 Dose: 1 pkt Epoetin Rolo (Procrit) 40,000 unit SC ONCE [facility] Clindamycin Phosphate (Cleocin In Normal Saline) 600 mg in 50 mls @ 50 mls/hr IVPB Q12 [facility] PRN Reason: Protocol Last Admin: 11/16/17 09:30 Dose: 50 mls/hr Ceftaroline Fosamil 300 mg/ (Sodium Chloride) 100 mls @ 100 mls/hr IVPB Q12 [facility] PRN Reason: Protocol Last Admin: 11/16/17 11:53 Dose: 100 mls/hr Ibuprofen (Motrin Tab) 400 mg PO Q6 PRN PRN Reason: Fever >100.4 F Insulin Human Lispro (Humalog) 0 units SC ACHS [facility] PRN Reason: Protocol Last Admin: 11/16/17 11:52 Dose: 1 u Ipratropium [place] (Atrovent) 0.5 mg IH RQID [facility] Last Admin: 11/16/17 11:43 Dose: 0.5 mg Levalbuterol HCl (Xopenex) 0.63 mg INH RQ4 PRN PRN Reason: Shortness of Breath Levothyroxine Sodium (Synthroid) 50 mcg PO DAILY@0630 [facility] Last Admin: 11/16/17 06:42 Dose: 50 mcg Metoprolol Tartrate (Lopressor) 50 mg PO Q12 [facility] Last Admin: 11/16/17 08:46 Dose: 50 mg Multivitamins/Minerals (Therapeutic-M Tab) 1 tab PO DAILY [facility] Last Admin: 11/16/17 08:46 Dose: 1 tab Ondansetron HCl (Zofran Inj) 4 mg IVP Q6 PRN PRN Reason: Nausea/Vomiting Last Admin: 11/13/17 17:15 Dose: 4 mg Sitagliptin Phosphate (Januvia) 100 mg PO DAILY [facility] Last Admin: 11/16/17 08:45 Dose: 100 mg Trimethoprim/Sulfamethoxazole (Bactrim Ds Tab) 1 tab PO DAILY [facility] PRN Reason: Protocol - Labs Labs: 11/16/17 04:30 11/16/17 04:30 - Constitutional Appears: Non-toxic, No Acute Distress, Chronically Ill - Head Exam Head Exam: NORMAL INSPECTION, NORMOCEPHALIC - Eye Exam Eye Exam: EOMI, Normal appearance Pupil Exam: NORMAL ACCOMODATION - ENT Exam ENT Exam: Mucous Membranes Moist, Normal External Ear Exam - Neck Exam Neck Exam: Full ROM. absent: Meningismus - Respiratory Exam Respiratory Exam: Rales, Rhonchi, NORMAL BREATHING PATTERN. absent: Wheezes, Respiratory Distress - Cardiovascular Exam Cardiovascular Exam: Irregular Rhythm, +S1, +S2 - GI/Abdominal Exam GI & Abdominal Exam: Soft, Normal Bowel Sounds. absent: Tenderness - Extremities Exam Extremities Exam: Pedal Edema. absent: Calf Tenderness - Back Exam Back Exam: absent: CVA tenderness (L), CVA tenderness (R) - Neurological Exam Neurological Exam: Alert, Awake, Oriented x3 - Psychiatric Exam Psychiatric exam: Flat Affect, Normal Mood - Skin Skin Exam: Dry, Pallor, Warm Assessment and Plan - Assessment and Plan (Free Text) Assessment: 77 yr old f with medical history including A fib, CAD (CABG triple bypass), COPD , hypercholesterolemia, hypothyroidism, HTN, DM type 2, CHF, MDS, B Cell lymphoma presented from Infusion center per Dr. Luz Nunes for WBC 0.6. Pt also presents with constant moderate dyspnea, associated with fatigue and weakness. Patient appears ill, fatigued. CXR showed LLL infiltrate. EKG AFIB with rate 135, Lopressor given. Vancomycin and Zosyn also initiated. 1. Sepsis 2/2 LLL Pna with Neutrop[address] Dr Suggs consulted - discussed case- rec to cont Teflaro and Bactrim however change to renal dose d/c Vancvomycin and started Clindamycin IV Dr. Vazquez pulmonology consult appreciated 2.B-cell lymphoma Status: Acute Chemotherapy over two day duration completed a few days ago Dr. Nunes will continue to follow. 3. MDS (myelodysplastic syndrome) Status: Acute Chemotherapy, Dr. Nunes will continue to follow. 4. Pancytopenia sec to Chemotherapy Status: Acute WBC ct better - reverse isolation d/c Dr. Nunes will continue to follow Transfused 2 units PRBC 11/15 5. Chronic a-fib Continue current management Metoprolol 50mg po BID. Xarelto discontinued due to thrombocytopenia 6. COPD chronic Duonebs ordered PRN 7. Hyponatremia Status: Acute Na 128, will gently hydrate with NS, BUN elevated as well 8.Hypokalemia Replete PRN 9.Hypothyroid Continue home medication: Levothyroxine 50mcg daily. DVT prophylaxis Status: Acute Comment: Patient was on xarelto, d/c 2/2 thrombocytopenia, no anticoag
[2017-11-16] MEDS: Levalbuterol 0.63 MG/3 ML Inhal Soln UD INH PRN ×2 (15:54→19:01)
--- NOTE | 2017-11-16 22:55 | CP.PCM.PN ---
Subjective - Date & Time of Evaluation Date of Evaluation: 11/16/17 Time of Evaluation: 22:59 - Subjective Subjective: I D NOTE WBC:2.5 AFEBRILE IS ON CLINDAMYCIN /TEFLARO BACTRIM(ADJUSTED DOSE)/ZITHROMAX FOR PROPHYLAXIS VANCOMYCIN WAS DISCONTINUED ON 11/15/17 Objective - Vital Signs/Intake and Output Vital Signs (last 24 hours): Temp Pulse Resp BP Pulse Ox 97.1 F L 109 H 22 125/69 100 11/16/17 20:00 11/16/17 21:32 11/16/17 20:00 11/16/17 21:32 11/16/17 20:00 Intake and Output: 11/16/17 11/17/17 18:59 06:59 Intake Total 1034 Balance 1034 - Medications Medications: Current Medications Acetaminophen (Tylenol 650 Mg Supp) 650 mg [place] Q6 PRN PRN Reason: Fever >100.4 F Last Admin: 11/14/17 00:35 Dose: 650 mg Allopurinol (Zyloprim) 100 mg PO DAILY [facility] Last Admin: 11/16/17 08:47 Dose: 100 mg Atorvastatin Calcium (Lipitor) 10 mg PO DAILY [facility] Last Admin: 11/16/17 08:46 Dose: 10 mg Azithromycin (Zithromax) 600 mg PO QWK [facility] PRN Reason: Protocol Cholecalciferol (Vitamin D) 1,000 intlu PO DAILY [facility] Last Admin: 11/16/17 08:46 Dose: 1,000 intlu Docusate Sodium (Colace) 100 mg PO BID PRN PRN Reason: Constipation Emollient Ointment (Vaseline Oint) 1 pkt TOP BID [facility] Last Admin: 11/16/17 17:23 Dose: 1 pkt Epoetin Rolo (Procrit) 40,000 unit SC ONCE [facility] Clindamycin Phosphate (Cleocin In Normal Saline) 600 mg in 50 mls @ 50 mls/hr IVPB Q12 [facility] PRN Reason: Protocol Last Admin: 11/16/17 21:31 Dose: 50 mls/hr Ceftaroline Fosamil 300 mg/ (Sodium Chloride) 100 mls @ 100 mls/hr IVPB Q12 [facility] PRN Reason: Protocol Last Admin: 11/16/17 21:51 Dose: 100 mls/hr Ibuprofen (Motrin Tab) 400 mg PO Q6 PRN PRN Reason: Fever >100.4 F Insulin Human Lispro (Humalog) 0 units SC ACHS [facility] PRN Reason: Protocol Last Admin: 11/16/17 21:32 Dose: Not Given Ipratropium [place] (Atrovent) 0.5 mg IH RQID [facility] Last Admin: 11/16/17 19:01 Dose: 0.5 mg Levalbuterol HCl (Xopenex) 0.63 mg INH RQ4 PRN PRN Reason: Shortness of Breath Last Admin: 11/16/17 19:01 Dose: 0.63 mg Levothyroxine Sodium (Synthroid) 50 mcg PO DAILY@0630 [facility] Last Admin: 11/16/17 06:42 Dose: 50 mcg Metoprolol Tartrate (Lopressor) 50 mg PO Q12 [facility] Last Admin: 11/16/17 21:32 Dose: 50 mg Multivitamins/Minerals (Therapeutic-M Tab) 1 tab PO DAILY [facility] Last Admin: 11/16/17 08:46 Dose: 1 tab Ondansetron HCl (Zofran Inj) 4 mg IVP Q6 PRN PRN Reason: Nausea/Vomiting Last Admin: 11/13/17 17:15 Dose: 4 mg Sitagliptin Phosphate (Januvia) 100 mg PO DAILY [facility] Last Admin: 11/16/17 08:45 Dose: 100 mg Trimethoprim/Sulfamethoxazole (Bactrim Ds Tab) 1 tab PO DAILY [facility] PRN Reason: Protocol - Labs Labs: 11/16/17 04:30 11/16/17 04:30
[2017-11-17] MEDS: Levothyroxine 50 MCG TAB PO SCH (06:26)
[2017-11-17 06:54] LABS: ALB/GLOB RATIO 1.4 (1.0-2.1); ALBUMIN 2.6 g/dL (3.5-5.0); CALCIUM 8.7 mg/dL (8.4-10.2)
[2017-11-17 07:12] LABS: BASO % 0.1 % (0.0-2.0); EOS # 0.1 K/uL (0.0-0.7); HEMOGLOBIN 9.7 g/dL (12.0-16.0); LYMPH # 0.2 K/uL (1.0-4.3); LYMPH % 1.9 % (20.0-40.0); MEAN CELL VOLUME 80.9 fl (81.0-99.0); MEAN CORPUSCULAR HEMOGLOBIN 26.8 pg (27.0-31.0); MEAN CORPUSCULAR HGB CONC 33.1 g/dL (33.0-37.0); MEAN PLATELET VOLUME 10.3 fl (7.2-11.7); MONO # 0.1 K/uL (0.0-0.8); MONO % 0.6 % (0.0-10.0); NEUT # 12.1 K/uL (1.8-7.0); NEUT % 96.4 % (50.0-75.0); NRBC % 0.1 % (0.0-0.0); PLATELET COUNT 82 K/uL (130-400); RBC 3.62 Mil/uL (3.80-5.20); RED CELL DISTRIBUTION WIDTH 17.8 % (11.5-14.5); WHITE BLOOD COUNT 12.6 K/uL (4.8-10.8)
[2017-11-17] MEDS: Ipratropium 0.02% Inhal Soln (0.5 mg/2.5 ml) UD IH SCH ×4 (07:18→19:35)
[2017-11-17] MEDS ORDERED: Tmp-Smz 800 mg-160 mg DS Tab PO SCH (09:00)
--- NOTE | 2017-11-17 09:01 | CP.PCM.PN ---
Subjective - Date & Time of Evaluation Date of Evaluation: 11/17/17 Time of Evaluation: 08:54 - Subjective Subjective: Pt is feeling a little better since her WBC has gone up to 12.6, and platelets 82K and the c/s are all negative. She is on azithromycin, ceftaraline, clindamycin and bactrim. All her counts are normal, but her bun ad creatinine are slowly going up. ? secondary to the antibiotics. She still has a little tachycardia, but no atrial fibrillation. Objective - Vital Signs/Intake and Output Vital Signs (last 24 hours): Temp Pulse Resp BP Pulse Ox 97.6 F 109 H 20 141/78 97 11/17/17 08:22 11/17/17 08:22 11/17/17 08:22 11/17/17 08:22 11/17/17 08:22 Intake and Output: 11/17/17 11/17/17 06:59 18:59 Intake Total 290 Balance 290 - Medications Medications: Current Medications Acetaminophen (Tylenol 650 Mg Supp) 650 mg IN Q6 PRN PRN Reason: Fever >100.4 F Last Admin: 11/14/17 00:35 Dose: 650 mg Allopurinol (Zyloprim) 100 mg PO DAILY [facility] Last Admin: 11/16/17 08:47 Dose: 100 mg Atorvastatin Calcium (Lipitor) 10 mg PO DAILY [facility] Last Admin: 11/16/17 08:46 Dose: 10 mg Azithromycin (Zithromax) 600 mg PO QWK [facility] PRN Reason: Protocol Cholecalciferol (Vitamin D) 1,000 intlu PO DAILY [facility] Last Admin: 11/16/17 08:46 Dose: 1,000 intlu Docusate Sodium (Colace) 100 mg PO BID PRN PRN Reason: Constipation Emollient Ointment (Vaseline Oint) 1 pkt TOP BID [facility] Last Admin: 11/16/17 17:23 Dose: 1 pkt Epoetin Rolo (Procrit) 40,000 unit SC ONCE [facility] Clindamycin Phosphate (Cleocin In Normal Saline) 600 mg in 50 mls @ 50 mls/hr IVPB Q12 [facility] PRN Reason: Protocol Last Admin: 11/16/17 21:31 Dose: 50 mls/hr Ceftaroline Fosamil 300 mg/ (Sodium Chloride) 100 mls @ 100 mls/hr IVPB Q12 [facility] PRN Reason: Protocol Last Admin: 11/16/17 21:51 Dose: 100 mls/hr Ibuprofen (Motrin Tab) 400 mg PO Q6 PRN PRN Reason: Fever >100.4 F Insulin Human Lispro (Humalog) 0 units SC ACHS [facility] PRN Reason: Protocol Last Admin: 11/16/17 21:32 Dose: Not Given Ipratropium [place] (Atrovent) 0.5 mg IH RQID [facility] Last Admin: 11/17/17 07:18 Dose: 0.5 mg Levalbuterol HCl (Xopenex) 0.63 mg INH RQ4 PRN PRN Reason: Shortness of Breath Last Admin: 11/16/17 19:01 Dose: 0.63 mg Levothyroxine Sodium (Synthroid) 50 mcg PO DAILY@0630 [facility] Last Admin: 11/17/17 06:26 Dose: 50 mcg Metoprolol Tartrate (Lopressor) 50 mg PO Q12 [facility] Last Admin: 11/16/17 21:32 Dose: 50 mg Multivitamins/Minerals (Therapeutic-M Tab) 1 tab PO DAILY [facility] Last Admin: 11/16/17 08:46 Dose: 1 tab Ondansetron HCl (Zofran Inj) 4 mg IVP Q6 PRN PRN Reason: Nausea/Vomiting Last Admin: 11/13/17 17:15 Dose: 4 mg Sitagliptin Phosphate (Januvia) 100 mg PO DAILY [facility] Last Admin: 11/16/17 08:45 Dose: 100 mg Trimethoprim/Sulfamethoxazole (Bactrim Ds Tab) 1 tab PO DAILY [facility] PRN Reason: Protocol - Labs Labs: 11/17/17 06:21 11/17/17 06:21
--- NOTE | 2017-11-17 09:39 | CP.PCM.PN ---
Subjective - Date & Time of Evaluation Date of Evaluation: 11/17/17 Time of Evaluation: 09:15 - Subjective Subjective: I D NOTE RENAL STATUS HAS WORSENED CREATININE,HAS HAPPENED BEFORE, TO SEE WBC IS 12.5, WILL D/C BACTRIM (ALREADY ON ADJUSTED DOSE) AND ZITHROMAX,CLINDAMYCIN. TEFLARO AT 200MG Q12 STAT RANDOM VANCOMYCIN LEVEL DISCUSSED c MONICA and PAUL) Objective - Vital Signs/Intake and Output Vital Signs (last 24 hours): Temp Pulse Resp BP Pulse Ox 97.6 F 109 H 20 141/78 97 11/17/17 08:22 11/17/17 08:22 11/17/17 08:22 11/17/17 08:22 11/17/17 08:22 Intake and Output: 11/17/17 11/17/17 06:59 18:59 Intake Total 290 Balance 290 - Medications Medications: Current Medications Acetaminophen (Tylenol 650 Mg Supp) 650 mg SC Q6 PRN PRN Reason: Fever >100.4 F Last Admin: 11/14/17 00:35 Dose: 650 mg Allopurinol (Zyloprim) 100 mg PO DAILY [facility] Last Admin: 11/16/17 08:47 Dose: 100 mg Atorvastatin Calcium (Lipitor) 10 mg PO DAILY [facility] Last Admin: 11/16/17 08:46 Dose: 10 mg Cholecalciferol (Vitamin D) 1,000 intlu PO DAILY [facility] Last Admin: 11/16/17 08:46 Dose: 1,000 intlu Docusate Sodium (Colace) 100 mg PO BID PRN PRN Reason: Constipation Emollient Ointment (Vaseline Oint) 1 pkt TOP BID [facility] Last Admin: 11/16/17 17:23 Dose: 1 pkt Epoetin Rolo (Procrit) 40,000 unit SC ONCE [facility] Clindamycin Phosphate (Cleocin In Normal Saline) 600 mg in 50 mls @ 50 mls/hr IVPB Q12 [facility] PRN Reason: Protocol Last Admin: 11/16/17 21:31 Dose: 50 mls/hr Ceftaroline Fosamil 200 mg/ (Sodium Chloride) 100 mls @ 100 mls/hr IVPB Q12 [facility] PRN Reason: Protocol Ibuprofen (Motrin Tab) 400 mg PO Q6 PRN PRN Reason: Fever >100.4 F Insulin Human Lispro (Humalog) 0 units SC ACHS [facility] PRN Reason: Protocol Last Admin: 11/16/17 21:32 Dose: Not Given Ipratropium [place] (Atrovent) 0.5 mg IH RQID [facility] Last Admin: 11/17/17 07:18 Dose: 0.5 mg Levalbuterol HCl (Xopenex) 0.63 mg INH RQ4 PRN PRN Reason: Shortness of Breath Last Admin: 11/16/17 19:01 Dose: 0.63 mg Levothyroxine Sodium (Synthroid) 50 mcg PO DAILY@0630 [facility] Last Admin: 11/17/17 06:26 Dose: 50 mcg Metoprolol Tartrate (Lopressor) 50 mg PO Q12 [facility] Last Admin: 11/16/17 21:32 Dose: 50 mg Multivitamins/Minerals (Therapeutic-M Tab) 1 tab PO DAILY [facility] Last Admin: 11/16/17 08:46 Dose: 1 tab Ondansetron HCl (Zofran Inj) 4 mg IVP Q6 PRN PRN Reason: Nausea/Vomiting Last Admin: 11/13/17 17:15 Dose: 4 mg Sitagliptin Phosphate (Januvia) 100 mg PO DAILY [facility] Last Admin: 11/16/17 08:45 Dose: 100 mg - Labs Labs: 11/17/17 06:21 11/17/17 06:21
[2017-11-17 10:09] LABS: BANDS 4 % (0-2); LYMPHOCYTE 3 % (20-50); MONOCYTE 3 % (0-10); NEUTROPHIL 90 % (42-75); PLATELET ESTIMATE DECREASED (NORMAL); TOTAL CELLS COUNTED 100
[2017-11-17 10:11] LABS: ANISOCYTOSIS MODERATE; BURR CELLS SLIGHT; HYPOCHROMIC SLIGHT; LARGE PLATELETS PRESENT; POIKILOCYTOSIS SLIGHT; SPHEROCYTES SLIGHT; TEARDROP CELLS SLIGHT
[2017-11-17] MEDS: Insulin Lispro (humaLOG) 100 Units/ml Inj SC SCH ×4 (10:20→22:00)
[2017-11-17] MEDS: Cholecalciferol 1,000 INTLU TAB PO SCH (10:22)
[2017-11-17] MEDS: Multivitamin With Minerals Tab PO SCH (10:22)
[2017-11-17] MEDS: Petrolatum UD PAK TOP SCH ×2 (10:23→16:30)
--- NOTE | 2017-11-17 10:32 | CP.PCM.PN ---
Subjective - Date & Time of Evaluation Date of Evaluation: 11/17/17 Time of Evaluation: 10:00 - Subjective Subjective: Out of ICU on Med/surg floor marked improvement in blood count No chills or fever Anorexia+ and vomitted this AM (?? Bactrim) Mild persistent tachycardia at 120 BPM (A Fib) BP 130/70 mm Hg No signs of CHF Rising Creatinin (1.7 mg now, was 1.0mg 4 days back) ?? due to recent exposure to Vancomycin (It was D/Bhupendra) Spoke with Dr. Suggs re reducing antibiotics Discussed with Dr. Vazquez about raising Metoprolol to control HR Pt to get OOB and use bed side commode. Objective - Vital Signs/Intake and Output Vital Signs (last 24 hours): Temp Pulse Resp BP Pulse Ox 97.6 F 109 H 20 114/78 97 11/17/17 08:22 11/17/17 10:22 11/17/17 08:22 11/17/17 10:22 11/17/17 08:22 Intake and Output: 11/17/17 11/17/17 06:59 18:59 Intake Total 290 Balance 290 - Medications Medications: Current Medications Acetaminophen (Tylenol 650 Mg Supp) 650 mg [place] Q6 PRN PRN Reason: Fever >100.4 F Last Admin: 11/14/17 00:35 Dose: 650 mg Allopurinol (Zyloprim) 100 mg PO DAILY [facility] Last Admin: 11/17/17 10:23 Dose: 100 mg Atorvastatin Calcium (Lipitor) 10 mg PO DAILY [facility] Last Admin: 11/17/17 10:22 Dose: 10 mg Cholecalciferol (Vitamin D) 1,000 intlu PO DAILY [facility] Last Admin: 11/17/17 10:22 Dose: 1,000 intlu Docusate Sodium (Colace) 100 mg PO BID PRN PRN Reason: Constipation Emollient Ointment (Vaseline Oint) 1 pkt TOP BID [facility] Last Admin: 11/17/17 10:23 Dose: 1 pkt Epoetin Rolo (Procrit) 40,000 unit SC ONCE [facility] Clindamycin Phosphate (Cleocin In Normal Saline) 600 mg in 50 mls @ 50 mls/hr IVPB Q12 [facility] PRN Reason: Protocol Last Admin: 11/16/17 21:31 Dose: 50 mls/hr Ceftaroline Fosamil 200 mg/ (Sodium Chloride) 100 mls @ 100 mls/hr IVPB Q12 [facility] PRN Reason: Protocol Ibuprofen (Motrin Tab) 400 mg PO Q6 PRN PRN Reason: Fever >100.4 F Insulin Human Lispro (Humalog) 0 units SC ACHS [facility] PRN Reason: Protocol Last Admin: 11/17/17 10:20 Dose: 2 u Ipratropium [place] (Atrovent) 0.5 mg IH RQID [facility] Last Admin: 11/17/17 07:18 Dose: 0.5 mg Levalbuterol HCl (Xopenex) 0.63 mg INH RQ4 PRN PRN Reason: Shortness of Breath Last Admin: 11/16/17 19:01 Dose: 0.63 mg Levothyroxine Sodium (Synthroid) 50 mcg PO DAILY@0630 [facility] Last Admin: 11/17/17 06:26 Dose: 50 mcg Metoprolol Tartrate (Lopressor) 75 mg PO Q12 [facility] Multivitamins/Minerals (Therapeutic-M Tab) 1 tab PO DAILY [facility] Last Admin: 11/17/17 10:22 Dose: 1 tab Ondansetron HCl (Zofran Inj) 4 mg IVP Q6 PRN PRN Reason: Nausea/Vomiting Last Admin: 11/13/17 17:15 Dose: 4 mg Sitagliptin Phosphate (Januvia) 100 mg PO DAILY [facility] Last Admin: 11/17/17 10:21 Dose: 100 mg - Labs Labs: 11/17/17 06:21 11/17/17 06:21
--- NOTE | 2017-11-17 11:24 | CP.PCM.CON ---
History of Present Illness - History of Present Illness History of Present Illness: 77 yr old f with medical history including A fib, CAD (CABG triple bypass), COPD , hypercholesterolemia, hypothyroidism, HTN, DM type 2, CHF, B Cell lymphoma who was diagnosed with MDS in 2016 I was called to see this patient for abnormal kidney function. She was admitted to intensive care unit with pancytopenia and patient was treated with antibiotics including vancomycin which has been discontinued and it was noted that BUN/creatinine and rising and develop hyponatremia. Patient was here recently and she was diagnosed with SIADH hyponatremic and she was given Samsca at that time to correct the hyponatremia medical history including A fib, CAD (CABG triple bypass), COPD, hypercholesterolemia, hypothyroidism, HTN, DM type 2, CHF, B Cell lymphoma who was diagnosed with MDS in 2016 Review of Systems - Constitutional Constitutional: Anorexia, Weight Loss, Weakness. absent: Chills - Cardiovascular Cardiovascular: Edema, Leg Edema. absent: Chest Pain - Respiratory Respiratory: absent: Dyspnea, Hemoptysis - Gastrointestinal Gastrointestinal: absent: Abdominal Pain, Coffee Ground Emesis - Genitourinary Genitourinary: Nocturia - Musculoskeletal Musculoskeletal: Muscle Weakness - Neurological Neurological: absent: Confusion, Focal Weakness, Headaches - Psychiatric Psychiatric: As Per HPI - Endocrine Endocrine: Fatigue - Hematologic/Lymphatic Hematologic: Easy Bruising Past Patient History - Infectious Disease Hx of Infectious Diseases: None - Past Medical History & Family History Past Medical History?: Yes - Past Social History Smoking Status: Former Smoker Chewing Tobacco Use: No Cigar Use: No Alcohol: None Drugs: Denies - CARDIAC Hx Congestive Heart Failure: Yes Hx Hypercholesterolemia: Yes Hx Hypertension: Yes - PULMONARY Hx Chronic Obstructive Pulmonary Disease (COPD): Yes - NEUROLOGICAL Hx Neurological Disorder: No - HEENT Hx HEENT Problems: Yes (Hearing loss in the right ear.) - RENAL Hx Chronic Kidney Disease: No - ENDOCRINE/METABOLIC Hx Diabetes Mellitus Type 2: Yes Hx Hypothyroidism: Yes - HEMATOLOGICAL/ONCOLOGICAL Hx Anemia: Yes Hx Blood Transfusions: Yes Hx Cancer: Yes (b cell lymphoma) Hx Chemotherapy: Yes - INTEGUMENTARY Hx Dermatological Problems: No - MUSCULOSKELETAL/RHEUMATOLOGICAL Hx Falls: Yes - GASTROINTESTINAL Hx Gastritis: Yes - GENITOURINARY/GYNECOLOGICAL Hx Genitourinary Disorders: No - PSYCHIATRIC Hx Psychophysiologic Disorder: No Hx Substance Use: No - SURGICAL HISTORY Hx Coronary Artery Bypass Graft: Yes (2000) Hx Coronary Stent: Yes (PCI 2007 and 2010) Other/Comment: meg knee replacement - ANESTHESIA Hx Anesthesia: Yes Hx Anesthesia Reactions: No Hx Malignant Hyperthermia: No Meds Allergies/Adverse Reactions: Allergies Allergy/AdvReac Type Severity Reaction Status Date / Time No Known Allergies Allergy Verified 10/19/17 11:23 - Medications Medications: Current Medications Acetaminophen (Tylenol 650 Mg Supp) 650 mg [place] Q6 PRN PRN Reason: Fever >100.4 F Last Admin: 11/14/17 00:35 Dose: 650 mg Allopurinol (Zyloprim) 100 mg PO DAILY [facility] Last Admin: 11/17/17 10:23 Dose: 100 mg Atorvastatin Calcium (Lipitor) 10 mg PO DAILY [facility] Last Admin: 11/17/17 10:22 Dose: 10 mg Cholecalciferol (Vitamin D) 1,000 intlu PO DAILY [facility] Last Admin: 11/17/17 10:22 Dose: 1,000 intlu Docusate Sodium (Colace) 100 mg PO BID PRN PRN Reason: Constipation Emollient Ointment (Vaseline Oint) 1 pkt TOP BID [facility] Last Admin: 11/17/17 10:23 Dose: 1 pkt Epoetin Rolo (Procrit) 40,000 unit SC ONCE [facility] Clindamycin Phosphate (Cleocin In Normal Saline) 600 mg in 50 mls @ 50 mls/hr IVPB Q12 [facility] PRN Reason: Protocol Last Admin: 11/16/17 21:31 Dose: 50 mls/hr Ceftaroline Fosamil 200 mg/ (Sodium Chloride) 100 mls @ 100 mls/hr IVPB Q12 [facility] PRN Reason: Protocol Insulin Human Lispro (Humalog) 0 units SC ACHS [facility] PRN Reason: Protocol Last Admin: 11/17/17 10:20 Dose: 2 u Ipratropium [place] (Atrovent) 0.5 mg IH RQID [facility] Last Admin: 11/17/17 11:17 Dose: 0.5 mg Levalbuterol HCl (Xopenex) 0.63 mg INH RQ4 PRN PRN Reason: Shortness of Breath Last Admin: 11/16/17 19:01 Dose: 0.63 mg Levothyroxine Sodium (Synthroid) 50 mcg PO DAILY@0630 [facility] Last Admin: 11/17/17 06:26 Dose: 50 mcg Metoprolol Tartrate (Lopressor) 75 mg PO Q12 [facility] Multivitamins/Minerals (Therapeutic-M Tab) 1 tab PO DAILY [facility] Last Admin: 11/17/17 10:22 Dose: 1 tab Ondansetron HCl (Zofran Inj) 4 mg IVP Q6 PRN PRN Reason: Nausea/Vomiting Last Admin: 11/13/17 17:15 Dose: 4 mg Sitagliptin Phosphate (Januvia) 100 mg PO DAILY [facility] Last Admin: 11/17/17 10:21 Dose: 100 mg Physical Exam - Constitutional Appears: No Acute Distress - Eye Exam Eye Exam: Conjunctival injection - ENT Exam ENT Exam: Mucous Membranes Moist - Neck Exam Neck exam: Negative for: Lymphadenopathy - Respiratory Exam Respiratory Exam: NORMAL BREATHING PATTERN. absent: Chest Wall Tenderness - Cardiovascular Exam Cardiovascular Exam: absent: Gallop, JVD, Rubs - GI/Abdominal Exam GI & Abdominal Exam: Normal Bowel Sounds - Extremities Exam Extremities exam: Negative for: calf tenderness - Back Exam Back exam: absent: CVA tenderness (L), CVA tenderness (R) - Neurological Exam Neurological exam: Alert - Psychiatric Exam Psychiatric exam: Normal Affect Results - Vital Signs Recent Vital Signs: Last Vital Signs Temp 97.6 F 11/17/17 08:22 Pulse 109 H 11/17/17 10:22 Resp 20 11/17/17 08:22 BP 114/78 11/17/17 10:22 Pulse Ox 97 11/17/17 08:22 - Labs Result Diagrams: 11/17/17 06:21 11/17/17 06:21 Labs: Laboratory Results - last 24 hr 11/13/17 11/16/17 11/16/17 07:00 11:50 16:46 WBC RBC Hgb Hct MCV MCH MCHC RDW Plt Count MPV Neut % (Auto) Lymph % (Auto) [place] % (Auto) Eos % (Auto) Baso % (Auto) Neut # (Auto) Lymph # (Auto) [place] # (Auto) Eos # (Auto) Baso # (Auto) Neutrophils % (Manual) Band Neutrophils % Lymphocytes % (Manual) Monocytes % (Manual) Platelet Estimate Large Platelets Hypochromasia (manual) Poikilocytosis (manual Anisocytosis (manual) Macrocytosis (manual) Spherocytes Tear Drop Cells Sarah Cells Sodium Potassium Chloride Carbon Dioxide Anion Gap BUN Creatinine Est GFR ( Amer) Est GFR (Non-Af Amer) POC Glucose (mg/dL) 195 H 207 H Random Glucose Calcium Magnesium Total Bilirubin AST ALT Alkaline Phosphatase Total Protein Albumin Globulin Albumin/Globulin Ratio Procalcitonin 3.82 H Random Vancomycin 11/16/17 11/17/17 11/17/17 21:05 05:25 06:21 WBC RBC Hgb Hct MCV MCH MCHC RDW Plt Count MPV Neut % (Auto) Lymph % (Auto) [place] % (Auto) Eos % (Auto) Baso % (Auto) Neut # (Auto) Lymph # (Auto) [place] # (Auto) Eos # (Auto) Baso # (Auto) Neutrophils % (Manual) Band Neutrophils % Lymphocytes % (Manual) Monocytes % (Manual) Platelet Estimate Large Platelets Hypochromasia (manual) Poikilocytosis (manual Anisocytosis (manual) Macrocytosis (manual) Spherocytes Tear Drop Cells Sarah Cells Sodium Potassium Chloride Carbon Dioxide Anion Gap BUN Creatinine Est GFR ( Amer) Est GFR (Non-Af Amer) POC Glucose (mg/dL) 183 H 207 H Random Glucose Calcium Magnesium Total Bilirubin AST ALT Alkaline Phosphatase Total Protein Albumin Globulin Albumin/Globulin Ratio Procalcitonin Random Vancomycin 14.3 11/17/17 11/17/17 06:21 06:21 WBC 12.6 H D RBC 3.62 L Hgb 9.7 L Hct 29.3 L MCV 80.9 L MCH 26.8 L MCHC 33.1 RDW 17.8 H Plt Count 82 L MPV 10.3 Neut % (Auto) 96.4 H Lymph % (Auto) 1.9 L [place] % (Auto) 0.6 Eos % (Auto) 1.0 Baso % (Auto) 0.1 Neut # (Auto) 12.1 H Lymph # (Auto) 0.2 L [place] # (Auto) 0.1 Eos # (Auto) 0.1 Baso # (Auto) 0.0 Neutrophils % (Manual) 90 H Band Neutrophils % 4 H Lymphocytes % (Manual) 3 L Monocytes % (Manual) 3 Platelet Estimate Decreased L Large Platelets Present Hypochromasia (manual) Slight Poikilocytosis (manual Slight Anisocytosis (manual) Moderate Macrocytosis (manual) Slight Spherocytes Slight Tear Drop Cells Slight Sarah Cells Slight Sodium 127 L Potassium 4.1 Chloride 97 L Carbon Dioxide 21 L Anion Gap 13 BUN 23 H Creatinine 1.7 H Est GFR ( Amer) 35 Est GFR (Non-Af Amer) 29 POC Glucose (mg/dL) Random Glucose 189 H Calcium 8.7 Magnesium 1.4 L Total Bilirubin 1.1 AST 17 ALT 39 Alkaline Phosphatase 90 Total Protein 4.6 L Albumin 2.6 L Globulin 2.0 L Albumin/Globulin Ratio 1.4 Procalcitonin Random Vancomycin Assessment & Plan (1) Atrial fibrillation Status: Acute Priority: High (2) Bronchopneumonia Status: Acute Priority: High (3) MDS (myelodysplastic syndrome) Status: Acute (4) Neutropenia Status: Acute (5) B-cell lymphoma Status: Chronic Priority: High (6) Anemia Status: Acute Priority: High (7) Hyponatremia Status: Acute (8) Acute kidney injury Assessment and Plan: #1 patient appears to have acute kidney injury perhaps related to multifactorial including sepsis and patient was also on vancomycin as well .#2 hyponatremia hypervolemic which is previously diagnosed to be SIADH perhaps in addition to the rest the medical problem that as noted with leukopenia possible pneumonia and sepsis recommendation Stat spot urine for sodium osmolality and creatinine. Samsca 15 mg stat dose based on the previous diagnosis hypervolemia hyponatremia ,monitor serum sodium and should not be rise more about 10 mEq for the next 24 hours therefore repeat BMP at 8 PM and tomorrow morning DC vancomycin Adjust antibiotics as per renal dose DC ibuprofen Status: Acute
[2017-11-17] MEDS ORDERED: Tolvaptan 15 MG TAB PO ONE (11:32)
--- NOTE | 2017-11-17 12:20 | CP.PCM.PN ---
Subjective - Date & Time of Evaluation Date of Evaluation: 11/17/17 Time of Evaluation: 12:00 - Subjective Subjective: Pt is afebrile Her WBC ct is up - Neutropenic precautions d/c complains of lip ulcer denies CP no SOB sl cough pedal edema better no abd pain Objective - Vital Signs/Intake and Output Vital Signs (last 24 hours): Temp Pulse Resp BP Pulse Ox 97.6 F 109 H 20 114/78 97 11/17/17 08:22 11/17/17 10:22 11/17/17 08:22 11/17/17 10:22 11/17/17 08:22 Intake and Output: 11/17/17 11/17/17 06:59 18:59 Intake Total 290 Balance 290 - Medications Medications: Current Medications Acetaminophen (Tylenol 650 Mg Supp) 650 mg [place] Q6 PRN PRN Reason: Fever >100.4 F Last Admin: 11/14/17 00:35 Dose: 650 mg Allopurinol (Zyloprim) 100 mg PO DAILY [facility] Last Admin: 11/17/17 10:23 Dose: 100 mg Atorvastatin Calcium (Lipitor) 10 mg PO DAILY [facility] Last Admin: 11/17/17 10:22 Dose: 10 mg Cholecalciferol (Vitamin D) 1,000 intlu PO DAILY [facility] Last Admin: 11/17/17 10:22 Dose: 1,000 intlu Docusate Sodium (Colace) 100 mg PO BID PRN PRN Reason: Constipation Emollient Ointment (Vaseline Oint) 1 pkt TOP BID [facility] Last Admin: 11/17/17 10:23 Dose: 1 pkt Epoetin [place] (Procrit) 40,000 unit SC ONCE [facility] Clindamycin Phosphate (Cleocin In Normal Saline) 600 mg in 50 mls @ 50 mls/hr IVPB Q12 [facility] PRN Reason: Protocol Last Admin: 11/16/17 21:31 Dose: 50 mls/hr Ceftaroline Fosamil 200 mg/ (Sodium Chloride) 100 mls @ 100 mls/hr IVPB Q12 [facility] PRN Reason: Protocol Insulin Human Lispro (Humalog) 0 units SC ACHS [facility] PRN Reason: Protocol Last Admin: 11/17/17 10:20 Dose: 2 u Ipratropium [place] (Atrovent) 0.5 mg IH RQID [facility] Last Admin: 11/17/17 11:17 Dose: 0.5 mg Levalbuterol HCl (Xopenex) 0.63 mg INH RQ4 PRN PRN Reason: Shortness of Breath Last Admin: 11/16/17 19:01 Dose: 0.63 mg Levothyroxine Sodium (Synthroid) 50 mcg PO DAILY@0630 [facility] Last Admin: 11/17/17 06:26 Dose: 50 mcg Metoprolol Tartrate (Lopressor) 75 mg PO Q12 [facility] Multivitamins/Minerals (Therapeutic-M Tab) 1 tab PO DAILY [facility] Last Admin: 11/17/17 10:22 Dose: 1 tab Ondansetron HCl (Zofran Inj) 4 mg IVP Q6 PRN PRN Reason: Nausea/Vomiting Last Admin: 11/13/17 17:15 Dose: 4 mg Sitagliptin Phosphate (Januvia) 100 mg PO DAILY [facility] Last Admin: 11/17/17 10:21 Dose: 100 mg - Labs Labs: 11/17/17 06:21 11/17/17 06:21 - Constitutional Appears: Non-toxic, No Acute Distress, Chronically Ill - Head Exam Head Exam: NORMAL INSPECTION, NORMOCEPHALIC - Eye Exam Eye Exam: EOMI, Normal appearance Pupil Exam: NORMAL ACCOMODATION - ENT Exam ENT Exam: Mucous Membranes Moist, Normal External Ear Exam lip ulcers - Neck Exam Neck Exam: Full ROM. absent: Meningismus - Respiratory Exam Respiratory Exam: Rales, Rhonchi, NORMAL BREATHING PATTERN. absent: Wheezes, Respiratory Distress - Cardiovascular Exam Cardiovascular Exam: Irregular Rhythm, +S1, +S2 - GI/Abdominal Exam GI & Abdominal Exam: Soft, Normal Bowel Sounds. absent: Tenderness - Extremities Exam Extremities Exam: Pedal Edema. absent: Calf Tenderness LE skin dry - Back Exam Back Exam: absent: CVA tenderness (L), CVA tenderness (R) - Neurological Exam Neurological Exam: Alert, Awake, Oriented x3 - Psychiatric Exam Psychiatric exam: Flat Affect, Normal Mood - Skin Skin Exam: Dry, Pallor, Warm Assessment and Plan - Assessment and Plan (Free Text) Assessment: 77 yr old f with medical history including A fib, CAD (CABG triple bypass), COPD , hypercholesterolemia, hypothyroidism, HTN, DM type 2, CHF, MDS, B Cell lymphoma presented from Infusion center per Dr. Luz Nunes for WBC 0.6. Pt also presents with constant moderate dyspnea, associated with fatigue and weakness. Patient appears ill, fatigued. CXR showed LLL infiltrate. EKG AFIB with rate 135, Lopressor given. Vancomycin and Zosyn also initiated. 1. Sepsis 2/2 LLL Pneumonia likely bacterial in a Neutropenic pt Dr Suggs consulted - discussed case- rec to cont Teflaro and Bactrim however change to renal dose d/c Vancomycin and started Clindamycin IV Dr. Vazquez pulmonology consult following pt closely 2. B-cell lymphoma Status: Acute Chemotherapy over two day duration completed a few days ago Dr. Nunes will continue to follow. 3. MDS (myelodysplastic syndrome) Status: Acute Chemotherapy, Dr. Nunes will continue to follow. 4. Pancytopenia sec to Chemotherapy Status: Acute WBC ct now high- reverse isolation d/c Dr. Nunes will continue to follow Transfused 2 units PRBC 11/15 5. Chronic a-fib Continue current management Metoprolol 50mg po BID. Xarelto discontinued due to thrombocytopenia 6. COPD chronic Duonebs ordered PRN 7. Hyponatremia Status: Acute Na 127, will gently hydrate with NS Dr Allen consulted 8.Hypokalemia Replete PRN 9.Hypothyroid Continue home medication: Levothyroxine 50mcg daily. 10. CKD adjust med dose renally Nephrology consult- Dr Allen 11. Physical Deconditioning PT/OT consult 12. Aphthous Ulcers , mouth sec to chemotherapy start Magic mouthwash DVT prophylaxis Status: Acute Comment: Patient was on xarelto, d/c 2/2 thrombocytopenia, no anticoag
[2017-11-17] MEDS: Clindamycin 600mg/50ml NS 600 MG/50 ML BAG IVPB SCH (12:29)
--- NOTE | 2017-11-17 13:15 | CP.PCM.PN ---
<KendrasantosAnette - Last Filed: 11/17/17 19:11> Subjective - Subjective Subjective: Patient was seen and examined at bedside this morning with the residents. Awake , alert, sitting in chair at bedside, Labs reviewed with improvement in all parameters patients pnemonia has improved on admission radiographically no signs of CHF . She states she vomitted this morning, she remains a febrile, remains slightly tachy consistently (109). There has been a slight decline in her renal function BUN is 23/1.7, GFR 29 plan is to renal dose her Tefflaro. Vanc trough is 14.3. On exam the patient is breathing well states she has a minor cough, she has B/L dependent edema, Dry rales at the bases in the lower lobes as well. No bronchial breath sounds, no wheezing, no egophony. Underlying chronic lung disease stable Renal dosed her Tefflaro to 200mg Levalbuterol, low dose, will be in reserve FOR prn use only. Objective - Vital Signs/Intake and Output Vital Signs (last 24 hours): Temp Pulse Resp BP Pulse Ox 97.5 F L 100 H 20 126/82 98 11/17/17 16:25 11/17/17 16:25 11/17/17 16:25 11/17/17 16:25 11/17/17 16:25 - Medications Medications: Current Medications Acetaminophen (Tylenol 650 Mg Supp) 650 mg [place] Q6 PRN PRN Reason: Fever >100.4 F Last Admin: 11/14/17 00:35 Dose: 650 mg Allopurinol (Zyloprim) 100 mg PO DAILY [facility] Last Admin: 11/17/17 10:23 Dose: 100 mg Atorvastatin Calcium (Lipitor) 10 mg PO DAILY [facility] Last Admin: 11/17/17 10:22 Dose: 10 mg Cholecalciferol (Vitamin D) 1,000 intlu PO DAILY [facility] Last Admin: 11/17/17 10:22 Dose: 1,000 intlu Docusate Sodium (Colace) 100 mg PO BID PRN PRN Reason: Constipation Emollient Ointment (Vaseline Oint) 1 pkt TOP BID [facility] Last Admin: 11/17/17 16:30 Dose: 1 pkt Epoetin Rolo (Procrit) 40,000 unit SC ONCE [facility] Ceftaroline Fosamil 200 mg/ (Sodium Chloride) 100 mls @ 100 mls/hr IVPB Q12 [facility] PRN Reason: Protocol Insulin Human Lispro (Humalog) 0 units SC ACHS [facility] PRN Reason: Protocol Last Admin: 11/17/17 16:28 Dose: 1 u Ipratropium [place] (Atrovent) 0.5 mg IH RQID [facility] Last Admin: 11/17/17 15:45 Dose: 0.5 mg Levalbuterol HCl (Xopenex) 0.63 mg INH RQ4 PRN PRN Reason: Shortness of Breath Last Admin: 11/17/17 15:45 Dose: 0.63 mg Levothyroxine Sodium (Synthroid) 50 mcg PO DAILY@0630 [facility] Last Admin: 11/17/17 06:26 Dose: 50 mcg Metoprolol Tartrate (Lopressor) 75 mg PO Q12 [facility] Multivitamins/Minerals (Therapeutic-M Tab) 1 tab PO DAILY [facility] Last Admin: 11/17/17 10:22 Dose: 1 tab Ondansetron HCl (Zofran Inj) 4 mg IVP Q6 PRN PRN Reason: Nausea/Vomiting Last Admin: 11/13/17 17:15 Dose: 4 mg Saliva Substitute (First Magic Mouthwash) 15 ml PO QID [facility] Last Admin: 11/17/17 16:27 Dose: 15 ml Sitagliptin Phosphate (Januvia) 100 mg PO DAILY [facility] Last Admin: 11/17/17 10:21 Dose: 100 mg - Labs Labs: 11/17/17 06:21 11/17/17 06:21 <Houston Vazquez - Last Filed: 11/18/17 08:34> Subjective - Date & Time of Evaluation Date of Evaluation: 11/17/17 Time of Evaluation: 13:15 - Subjective Subjective: The patient was seen and examined together with the residents on rounds this morning. Interim events were reviewed and discussed. Physical findings were reviewed and discussed as well. Plan of care was formulated and agreed upon. Case was also discussed with infectious disease. I am in agreement with the entry made by the resident in the EMR. Objective - Vital Signs/Intake and Output Vital Signs (last 24 hours): Temp Pulse Resp BP Pulse Ox 97.6 F 109 H 20 114/78 97 11/17/17 08:22 11/17/17 10:22 11/17/17 08:22 11/17/17 10:22 11/17/17 08:22 Intake and Output: 11/17/17 11/17/17 11:59 23:59 Intake Total 20 Balance 20 - Medications Medications: Current Medications Acetaminophen (Tylenol 650 Mg Supp) 650 mg [place] Q6 PRN PRN Reason: Fever >100.4 F Last Admin: 11/14/17 00:35 Dose: 650 mg Allopurinol (Zyloprim) 100 mg PO DAILY [facility] Last Admin: 11/17/17 10:23 Dose: 100 mg Atorvastatin Calcium (Lipitor) 10 mg PO DAILY [facility] Last Admin: 11/17/17 10:22 Dose: 10 mg Cholecalciferol (Vitamin D) 1,000 intlu PO DAILY [facility] Last Admin: 11/17/17 10:22 Dose: 1,000 intlu Docusate Sodium (Colace) 100 mg PO BID PRN PRN Reason: Constipation Emollient Ointment (Vaseline Oint) 1 pkt TOP BID [facility] Last Admin: 11/17/17 10:23 Dose: 1 pkt Epoetin Rolo (Procrit) 40,000 unit SC ONCE [facility] Clindamycin Phosphate (Cleocin In Normal Saline) 600 mg in 50 mls @ 50 mls/hr IVPB Q12 [facility] PRN Reason: Protocol Last Admin: 11/17/17 12:29 Dose: 50 mls/hr Ceftaroline Fosamil 200 mg/ (Sodium Chloride) 100 mls @ 100 mls/hr IVPB Q12 [facility] PRN Reason: Protocol Insulin Human Lispro (Humalog) 0 units SC ACHS [facility] PRN Reason: Protocol Last Admin: 11/17/17 12:30 Dose: 1 u Ipratropium [place] (Atrovent) 0.5 mg IH RQID [facility] Last Admin: 11/17/17 11:17 Dose: 0.5 mg Levalbuterol HCl (Xopenex) 0.63 mg INH RQ4 PRN PRN Reason: Shortness of Breath Last Admin: 11/16/17 19:01 Dose: 0.63 mg Levothyroxine Sodium (Synthroid) 50 mcg PO DAILY@0630 [facility] Last Admin: 11/17/17 06:26 Dose: 50 mcg Metoprolol Tartrate (Lopressor) 75 mg PO Q12 [facility] Multivitamins/Minerals (Therapeutic-M Tab) 1 tab PO DAILY [facility] Last Admin: 11/17/17 10:22 Dose: 1 tab Ondansetron HCl (Zofran Inj) 4 mg IVP Q6 PRN PRN Reason: Nausea/Vomiting Last Admin: 11/13/17 17:15 Dose: 4 mg Sitagliptin Phosphate (Januvia) 100 mg PO DAILY [facility] Last Admin: 11/17/17 10:21 Dose: 100 mg - Labs Labs: 11/17/17 06:21 11/17/17 06:21 Assessment and Plan (1) Pneumonia Status: Acute (2) Pancytopenia Status: Acute (3) B-cell lymphoma Status: Chronic (4) COPD (chronic obstructive pulmonary disease) Status: Chronic
--- NOTE | 2017-11-17 15:05 | PQF ---
PROVIDER RESPONSE TEXT: Bacterial Pneumonia, organism to be determined REVIEWER QUERY TEXT: Pneumonia Specificity Pneumonia is documented in the Medical Record. Please specify the type of pneumonia and the causative organism (includes probable or suspected) if known Such as: Type: -- Aspiration pneumonia (please also specify the aspirate) --Bacterial (please document suspected or probable organism) --Bronchopneumonia (please document suspected or probable organism) -- Interstitial pneumonia -- Organizing pneumonia / BOOP -- Pneumonia with influenza, chastity flu, or H1N1 flu -- RSV -- Tuberculosis, pulmonary -- Viral -- Other, please specify The patient's Clinical Indicators include: Female with B cell lymphoma presented to the infusion center with dyspnea, fatigue and neutropenia. CXR: Airspace disease in the left lower lobe may represent atelectasis or pneumonia. WBC 0.2 . Temp max 101.2. Medications: Clindamycin, Teflaro, ( Bactrim and Zithromax d/c 11/17/17) Query created by: Ludivina Bower on 11/17/2017 9:32 AM PROVIDER RESPONSE TEXT: CHF chronic, systolic and diastolic dysfunction REVIEWER QUERY TEXT: CHF Acuity and Type Congestive Heart Failure is documented in the Medical Record. Please document the type and acuity (in cludes probable or suspected) Such as: Type: -- Systolic -- Diastolic -- Combined -- Other, please specify Acuity: -- Acute -- Chronic -- Acute on chronic -- Other, please specify Also please document the underlying cause of the CHF (includes probable or suspected) The patient's Clinical Indicators include: PMH: CHF : Yes OLD ECHO 10/11/17: LV normal size. LV normal function. EF 50-55%. MR is mild to moderate, moderate TR Medication at home : Lasix and discontinued as inpatient. Query created by: Ludivina Bower on 11/17/2017 9:40 AM Electronically signed by: Malu Berrios MD 11/17/2017 3:01 PM
[2017-11-17] MEDS: Levalbuterol 0.63 MG/3 ML Inhal Soln UD INH PRN (15:45)
[2017-11-17] MEDS: Mag&Al/Simet/Diphen/Lido 237 ML KIT PO SCH ×3 (16:27→21:19)
[2017-11-17 21:45] LABS: CALCIUM 8.8 mg/dL (8.4-10.2)
[2017-11-18] MEDS: Levothyroxine 50 MCG TAB PO SCH (06:47)
[2017-11-18 06:57] LABS: BASO # 0.1 K/uL (0.0-0.2); BASO % 0.2 % (0.0-2.0); EOS # 0.1 K/uL (0.0-0.7); EOS % 0.6 % (0.0-4.0); HEMOGLOBIN 9.5 g/dL (12.0-16.0); LYMPH # 0.4 K/uL (1.0-4.3); LYMPH % 1.8 % (20.0-40.0); MEAN CELL VOLUME 81.5 fl (81.0-99.0); MEAN CORPUSCULAR HEMOGLOBIN 26.9 pg (27.0-31.0); MEAN PLATELET VOLUME 9.4 fl (7.2-11.7); MONO # 0.3 K/uL (0.0-0.8); MONO % 1.3 % (0.0-10.0); NEUT # 20.1 K/uL (1.8-7.0); NEUT % 96.1 % (50.0-75.0); NRBC % 0.2 % (0.0-0.0); PLATELET COUNT 83 K/uL (130-400); RBC 3.52 Mil/uL (3.80-5.20); WHITE BLOOD COUNT 20.9 K/uL (4.8-10.8)
[2017-11-18 07:04] LABS: ALB/GLOB RATIO 1.3 (1.0-2.1); ALBUMIN 2.5 g/dL (3.5-5.0); CALCIUM 8.8 mg/dL (8.4-10.2)
[2017-11-18] MEDS: Ipratropium 0.02% Inhal Soln (0.5 mg/2.5 ml) UD IH SCH ×4 (07:19→19:54)
[2017-11-18] MEDS: Insulin Lispro (humaLOG) 100 Units/ml Inj SC SCH ×4 (10:08→22:00)
[2017-11-18] MEDS: Mag&Al/Simet/Diphen/Lido 237 ML KIT PO SCH ×5 (10:09→21:17)
[2017-11-18] MEDS: Multivitamin With Minerals Tab PO SCH (10:13)
[2017-11-18] MEDS: Cholecalciferol 1,000 INTLU TAB PO SCH (10:14)
[2017-11-18] MEDS: Petrolatum UD PAK TOP SCH ×2 (10:14→17:26)
--- NOTE | 2017-11-18 11:17 | CP.PCM.PN ---
Subjective - Date & Time of Evaluation Date of Evaluation: 11/18/17 Time of Evaluation: 11:14 - Subjective Subjective: Pt has been doing much better. Sat up for her meals yestarday even though the appetiite is still poor. Sh4e is afebrile, HR 102/min, and po2 94% on room air. The wbc is 20.9, , hgb 9.5gms, and platelets are 83K. Will encourage physical therapy for ambulation. Objective - Vital Signs/Intake and Output Vital Signs (last 24 hours): Temp Pulse Resp BP Pulse Ox 97.4 F L 101 H 19 102/68 96 11/18/17 07:49 11/18/17 10:11 11/18/17 07:49 11/18/17 10:11 11/18/17 07:49 - Medications Medications: Current Medications Acetaminophen (Tylenol 650 Mg Supp) 650 mg [place] Q6 PRN PRN Reason: Fever >100.4 F Last Admin: 11/14/17 00:35 Dose: 650 mg Allopurinol (Zyloprim) 100 mg PO DAILY [facility] Last Admin: 11/18/17 10:14 Dose: 100 mg Atorvastatin Calcium (Lipitor) 10 mg PO DAILY [facility] Last Admin: 11/18/17 10:11 Dose: 10 mg Cholecalciferol (Vitamin D) 1,000 intlu PO DAILY [facility] Last Admin: 11/18/17 10:14 Dose: 1,000 intlu Docusate Sodium (Colace) 100 mg PO BID PRN PRN Reason: Constipation Emollient Ointment (Vaseline Oint) 1 pkt TOP BID [facility] Last Admin: 11/18/17 10:14 Dose: 1 pkt Epoetin Rolo (Procrit) 40,000 unit SC ONCE [facility] Ceftaroline Fosamil 200 mg/ (Sodium Chloride) 100 mls @ 100 mls/hr IVPB Q12 [facility] PRN Reason: Protocol Last Admin: 11/18/17 10:13 Dose: 100 mls/hr Insulin Human Lispro (Humalog) 0 units SC ACHS [facility] PRN Reason: Protocol Last Admin: 11/18/17 10:08 Dose: 1 u Ipratropium [place] (Atrovent) 0.5 mg IH RQID [facility] Last Admin: 11/18/17 11:06 Dose: 0.5 mg Levalbuterol HCl (Xopenex) 0.63 mg INH RQ4 PRN PRN Reason: Shortness of Breath Last Admin: 11/17/17 15:45 Dose: 0.63 mg Levothyroxine Sodium (Synthroid) 50 mcg PO DAILY@0630 [facility] Last Admin: 11/18/17 06:47 Dose: 50 mcg Metoprolol Tartrate (Lopressor) 75 mg PO Q12 [facility] Last Admin: 11/18/17 10:11 Dose: 75 mg Multivitamins/Minerals (Therapeutic-M Tab) 1 tab PO DAILY [facility] Last Admin: 11/18/17 10:13 Dose: 1 tab Ondansetron HCl (Zofran Inj) 4 mg IVP Q6 PRN PRN Reason: Nausea/Vomiting Last Admin: 11/13/17 17:15 Dose: 4 mg Saliva Substitute (First Magic Mouthwash) 15 ml PO QID [facility] Last Admin: 11/18/17 10:27 Dose: Not Given Sitagliptin Phosphate (Januvia) 100 mg PO DAILY [facility] Last Admin: 11/18/17 10:10 Dose: 100 mg - Labs Labs: 11/18/17 05:30 11/18/17 05:30
--- NOTE | 2017-11-18 12:06 | CP.PCM.PN ---
Subjective - Date & Time of Evaluation Date of Evaluation: 11/18/17 Time of Evaluation: 12:06 Objective - Vital Signs/Intake and Output Vital Signs (last 24 hours): Temp Pulse Resp BP Pulse Ox 97.4 F L 101 H 19 102/68 96 11/18/17 07:49 11/18/17 10:11 11/18/17 07:49 11/18/17 10:11 11/18/17 07:49 - Medications Medications: Current Medications Acetaminophen (Tylenol 650 Mg Supp) 650 mg [place] Q6 PRN PRN Reason: Fever >100.4 F Last Admin: 11/14/17 00:35 Dose: 650 mg Allopurinol (Zyloprim) 100 mg PO DAILY [facility] Last Admin: 11/18/17 10:14 Dose: 100 mg Atorvastatin Calcium (Lipitor) 10 mg PO DAILY [facility] Last Admin: 11/18/17 10:11 Dose: 10 mg Cholecalciferol (Vitamin D) 1,000 intlu PO DAILY [facility] Last Admin: 11/18/17 10:14 Dose: 1,000 intlu Docusate Sodium (Colace) 100 mg PO BID PRN PRN Reason: Constipation Emollient Ointment (Vaseline Oint) 1 pkt TOP BID [facility] Last Admin: 11/18/17 10:14 Dose: 1 pkt Epoetin Rolo (Procrit) 40,000 unit SC ONCE [facility] Ceftaroline Fosamil 200 mg/ (Sodium Chloride) 100 mls @ 100 mls/hr IVPB Q12 [facility] PRN Reason: Protocol Last Admin: 11/18/17 10:13 Dose: 100 mls/hr Insulin Human Lispro (Humalog) 0 units SC ACHS [facility] PRN Reason: Protocol Last Admin: 11/18/17 10:08 Dose: 1 u Ipratropium [place] (Atrovent) 0.5 mg IH RQID [facility] Last Admin: 11/18/17 11:06 Dose: 0.5 mg Levalbuterol HCl (Xopenex) 0.63 mg INH RQ4 PRN PRN Reason: Shortness of Breath Last Admin: 11/17/17 15:45 Dose: 0.63 mg Levothyroxine Sodium (Synthroid) 50 mcg PO DAILY@0630 [facility] Last Admin: 11/18/17 06:47 Dose: 50 mcg Metoprolol Tartrate (Lopressor) 75 mg PO Q12 [facility] Last Admin: 11/18/17 10:11 Dose: 75 mg Multivitamins/Minerals (Therapeutic-M Tab) 1 tab PO DAILY [facility] Last Admin: 11/18/17 10:13 Dose: 1 tab Ondansetron HCl (Zofran Inj) 4 mg IVP Q6 PRN PRN Reason: Nausea/Vomiting Last Admin: 11/13/17 17:15 Dose: 4 mg Saliva Substitute (First Magic Mouthwash) 15 ml PO QID [facility] Last Admin: 11/18/17 10:27 Dose: Not Given Sitagliptin Phosphate (Januvia) 100 mg PO DAILY [facility] Last Admin: 11/18/17 10:10 Dose: 100 mg - Labs Labs: 11/18/17 05:30 11/18/17 05:30 Assessment and Plan (1) Pneumonia Status: Acute (2) Pancytopenia Status: Acute (3) B-cell lymphoma Status: Chronic (4) COPD (chronic obstructive pulmonary disease) Status: Chronic
--- NOTE | 2017-11-18 12:09 | CP.PCM.PN ---
Objective - Vital Signs/Intake and Output Vital Signs (last 24 hours): Temp Pulse Resp BP Pulse Ox 97.4 F L 101 H 19 102/68 96 11/18/17 07:49 11/18/17 10:11 11/18/17 07:49 11/18/17 10:11 11/18/17 07:49 - Medications Medications: Current Medications Acetaminophen (Tylenol 650 Mg Supp) 650 mg [place] Q6 PRN PRN Reason: Fever >100.4 F Last Admin: 11/14/17 00:35 Dose: 650 mg Allopurinol (Zyloprim) 100 mg PO DAILY [facility] Last Admin: 11/18/17 10:14 Dose: 100 mg Atorvastatin Calcium (Lipitor) 10 mg PO DAILY [facility] Last Admin: 11/18/17 10:11 Dose: 10 mg Cholecalciferol (Vitamin D) 1,000 intlu PO DAILY [facility] Last Admin: 11/18/17 10:14 Dose: 1,000 intlu Docusate Sodium (Colace) 100 mg PO BID PRN PRN Reason: Constipation Emollient Ointment (Vaseline Oint) 1 pkt TOP BID [facility] Last Admin: 11/18/17 10:14 Dose: 1 pkt Epoetin Rolo (Procrit) 40,000 unit SC ONCE [facility] Ceftaroline Fosamil 200 mg/ (Sodium Chloride) 100 mls @ 100 mls/hr IVPB Q12 [facility] PRN Reason: Protocol Last Admin: 11/18/17 10:13 Dose: 100 mls/hr Insulin Human Lispro (Humalog) 0 units SC ACHS [facility] PRN Reason: Protocol Last Admin: 11/18/17 10:08 Dose: 1 u Ipratropium [place] (Atrovent) 0.5 mg IH RQID [facility] Last Admin: 11/18/17 11:06 Dose: 0.5 mg Levalbuterol HCl (Xopenex) 0.63 mg INH RQ4 PRN PRN Reason: Shortness of Breath Last Admin: 11/17/17 15:45 Dose: 0.63 mg Levothyroxine Sodium (Synthroid) 50 mcg PO DAILY@0630 [facility] Last Admin: 11/18/17 06:47 Dose: 50 mcg Metoprolol Tartrate (Lopressor) 75 mg PO Q12 [facility] Last Admin: 11/18/17 10:11 Dose: 75 mg Multivitamins/Minerals (Therapeutic-M Tab) 1 tab PO DAILY [facility] Last Admin: 11/18/17 10:13 Dose: 1 tab Ondansetron HCl (Zofran Inj) 4 mg IVP Q6 PRN PRN Reason: Nausea/Vomiting Last Admin: 11/13/17 17:15 Dose: 4 mg Saliva Substitute (First Magic Mouthwash) 15 ml PO QID [facility] Last Admin: 11/18/17 10:27 Dose: Not Given Sitagliptin Phosphate (Januvia) 100 mg PO DAILY [facility] Last Admin: 11/18/17 10:10 Dose: 100 mg - Labs Labs: 11/18/17 05:30 11/18/17 05:30
--- NOTE | 2017-11-18 12:15 | CP.PCM.PN ---
Subjective - Date & Time of Evaluation Date of Evaluation: 11/18/17 Time of Evaluation: 10:45 - Subjective Subjective: Clinically remains unchanged, reluctant to sit OOB Afebrile with rising leucocyte count following granix HR 100 BPM, (a fib) No signs of CHF S Vanco level was 13Ug/Ml > 48 hrs following the last dose yesterday (which may explain the azotemia) BUN/Creatinin unchanged over last 24 hrs S Na+ level still 127mEq/L (a dose of Tolvaptan 15 mg was given yesterday) At this point clinically stable Objective - Vital Signs/Intake and Output Vital Signs (last 24 hours): Temp Pulse Resp BP Pulse Ox 97.4 F L 101 H 19 102/68 96 11/18/17 07:49 11/18/17 10:11 11/18/17 07:49 11/18/17 10:11 11/18/17 07:49 - Medications Medications: Current Medications Acetaminophen (Tylenol 650 Mg Supp) 650 mg [place] Q6 PRN PRN Reason: Fever >100.4 F Last Admin: 11/14/17 00:35 Dose: 650 mg Allopurinol (Zyloprim) 100 mg PO DAILY [facility] Last Admin: 11/18/17 10:14 Dose: 100 mg Atorvastatin Calcium (Lipitor) 10 mg PO DAILY [facility] Last Admin: 11/18/17 10:11 Dose: 10 mg Cholecalciferol (Vitamin D) 1,000 intlu PO DAILY [facility] Last Admin: 11/18/17 10:14 Dose: 1,000 intlu Docusate Sodium (Colace) 100 mg PO BID PRN PRN Reason: Constipation Emollient Ointment (Vaseline Oint) 1 pkt TOP BID [facility] Last Admin: 11/18/17 10:14 Dose: 1 pkt Epoetin Rolo (Procrit) 40,000 unit SC ONCE [facility] Ceftaroline Fosamil 200 mg/ (Sodium Chloride) 100 mls @ 100 mls/hr IVPB Q12 [facility] PRN Reason: Protocol Last Admin: 11/18/17 10:13 Dose: 100 mls/hr Insulin Human Lispro (Humalog) 0 units SC ACHS [facility] PRN Reason: Protocol Last Admin: 11/18/17 10:08 Dose: 1 u Ipratropium [place] (Atrovent) 0.5 mg IH RQID [facility] Last Admin: 11/18/17 11:06 Dose: 0.5 mg Levalbuterol HCl (Xopenex) 0.63 mg INH RQ4 PRN PRN Reason: Shortness of Breath Last Admin: 11/17/17 15:45 Dose: 0.63 mg Levothyroxine Sodium (Synthroid) 50 mcg PO DAILY@0630 [facility] Last Admin: 11/18/17 06:47 Dose: 50 mcg Metoprolol Tartrate (Lopressor) 75 mg PO Q12 [facility] Last Admin: 11/18/17 10:11 Dose: 75 mg Multivitamins/Minerals (Therapeutic-M Tab) 1 tab PO DAILY [facility] Last Admin: 11/18/17 10:13 Dose: 1 tab Ondansetron HCl (Zofran Inj) 4 mg IVP Q6 PRN PRN Reason: Nausea/Vomiting Last Admin: 11/13/17 17:15 Dose: 4 mg Saliva Substitute (First Magic Mouthwash) 15 ml PO QID [facility] Last Admin: 11/18/17 10:27 Dose: Not Given Sitagliptin Phosphate (Januvia) 100 mg PO DAILY [facility] Last Admin: 11/18/17 10:10 Dose: 100 mg - Labs Labs: 11/18/17 05:30 11/18/17 05:30
[2017-11-18 12:40] LABS: BANDS 2 % (0-2); EOSINOPHIL 1 % (0-7); LYMPHOCYTE 1 % (20-50); MONOCYTE 10 % (0-10); NEUTROPHIL 84 % (42-75); PROMYELOCYTE 1 % (0-0); REACTIVE LYMPHOCYTES 1 % (0-0); TOTAL CELLS COUNTED 100
[2017-11-18 12:41] LABS: ANISOCYTOSIS SLIGHT; HYPOCHROMIC SLIGHT; OVALOCYTES SLIGHT; PLATELET ESTIMATE DECREASED (NORMAL); SCHISTOCYTES SLIGHT; TEARDROP CELLS SLIGHT; TOXIC GRANULATION PRESENT
[2017-11-18 12:42] LABS: LARGE PLATELETS PRESENT
--- NOTE | 2017-11-18 13:25 | CP.PCM.PN ---
Subjective - Date & Time of Evaluation Date of Evaluation: 11/18/17 Time of Evaluation: 12:30 - Subjective Subjective: No fever cough better WBC ct now 20K complains of lip sore + pedal edema but better denies CP no SOB Objective - Vital Signs/Intake and Output Vital Signs (last 24 hours): Temp Pulse Resp BP Pulse Ox 97.4 F L 101 H 19 102/68 96 11/18/17 07:49 11/18/17 10:11 11/18/17 07:49 11/18/17 10:11 11/18/17 07:49 - Medications Medications: Current Medications Acetaminophen (Tylenol 650 Mg Supp) 650 mg [place] Q6 PRN PRN Reason: Fever >100.4 F Last Admin: 11/14/17 00:35 Dose: 650 mg Allopurinol (Zyloprim) 100 mg PO DAILY [facility] Last Admin: 11/18/17 10:14 Dose: 100 mg Atorvastatin Calcium (Lipitor) 10 mg PO DAILY [facility] Last Admin: 11/18/17 10:11 Dose: 10 mg Cholecalciferol (Vitamin D) 1,000 intlu PO DAILY [facility] Last Admin: 11/18/17 10:14 Dose: 1,000 intlu Docusate Sodium (Colace) 100 mg PO BID PRN PRN Reason: Constipation Emollient Ointment (Vaseline Oint) 1 pkt TOP BID [facility] Last Admin: 11/18/17 10:14 Dose: 1 pkt Epoetin Rolo (Procrit) 40,000 unit SC ONCE [facility] Ceftaroline Fosamil 200 mg/ (Sodium Chloride) 100 mls @ 100 mls/hr IVPB Q12 [facility] PRN Reason: Protocol Last Admin: 11/18/17 10:13 Dose: 100 mls/hr Insulin Human Lispro (Humalog) 0 units SC ACHS [facility] PRN Reason: Protocol Last Admin: 11/18/17 12:23 Dose: 2 u Ipratropium [place] (Atrovent) 0.5 mg IH RQID [facility] Last Admin: 11/18/17 11:06 Dose: 0.5 mg Levalbuterol HCl (Xopenex) 0.63 mg INH RQ4 PRN PRN Reason: Shortness of Breath Last Admin: 11/17/17 15:45 Dose: 0.63 mg Levothyroxine Sodium (Synthroid) 50 mcg PO DAILY@0630 [facility] Last Admin: 11/18/17 06:47 Dose: 50 mcg Metoprolol Tartrate (Lopressor) 75 mg PO Q12 [facility] Last Admin: 11/18/17 10:11 Dose: 75 mg Multivitamins/Minerals (Therapeutic-M Tab) 1 tab PO DAILY [facility] Last Admin: 11/18/17 10:13 Dose: 1 tab Ondansetron HCl (Zofran Inj) 4 mg IVP Q6 PRN PRN Reason: Nausea/Vomiting Last Admin: 11/13/17 17:15 Dose: 4 mg Saliva Substitute (First Magic Mouthwash) 15 ml PO QID [facility] Last Admin: 11/18/17 10:27 Dose: Not Given Sitagliptin Phosphate (Januvia) 100 mg PO DAILY [facility] Last Admin: 11/18/17 10:10 Dose: 100 mg - Labs Labs: 11/18/17 05:30 11/18/17 05:30 - Constitutional Appears: Non-toxic, No Acute Distress, Chronically Ill - Head Exam Head Exam: NORMAL INSPECTION, NORMOCEPHALIC - Eye Exam Eye Exam: EOMI, Normal appearance Pupil Exam: NORMAL ACCOMODATION - ENT Exam ENT Exam: Mucous Membranes Moist, Normal External Ear Exam lip ulcers - Neck Exam Neck Exam: Full ROM. absent: Meningismus - Respiratory Exam Respiratory Exam: Rales, Rhonchi, NORMAL BREATHING PATTERN. absent: Wheezes, Respiratory Distress - Cardiovascular Exam Cardiovascular Exam: Irregular Rhythm, +S1, +S2 - GI/Abdominal Exam GI & Abdominal Exam: Soft, Normal Bowel Sounds. absent: Tenderness - Extremities Exam Extremities Exam: Pedal Edema. absent: Calf Tenderness LE skin dry - Back Exam Back Exam: absent: CVA tenderness (L), CVA tenderness (R) - Neurological Exam Neurological Exam: Alert, Awake, Oriented x3 - Psychiatric Exam Psychiatric exam: Flat Affect, Normal Mood - Skin Skin Exam: Dry, Pallor, Warm Assessment and Plan - Assessment and Plan (Free Text) Assessment: 77 yr old f with medical history including A fib, CAD (CABG triple bypass), COPD , hypercholesterolemia, hypothyroidism, HTN, DM type 2, CHF, MDS, B Cell lymphoma presented from Infusion center per Dr. Luz Nunes for WBC 0.6. Pt also presents with constant moderate dyspnea, associated with fatigue and weakness. CXR showed LLL infiltrate. EKG AFIB with rate 135, Lopressor given. Vancomycin and Zosyn also initiated. 1. Sepsis 2/2 LLL Pneumonia likely bacterial in a Neutropenic pt Dr Suggs consulted - discussed case- rec to cont Teflaro and Bactrim however change to renal dose d/c Vancomycin and started Clindamycin IV Dr. Vazquez pulmonology consult following pt closely 2. B-cell lymphoma Status: Acute Chemotherapy over two day duration completed a few days ago Dr. Nunes will continue to follow. 3. MDS (myelodysplastic syndrome) Status: Acute Chemotherapy, Dr. Nunes will continue to follow. 4. Pancytopenia sec to Chemotherapy Status: Acute WBC ct now high- reverse isolation d/c Pt received Granix so WBC now 20K Dr. Nunes will continue to follow Transfused 2 units PRBC 11/15 5. Chronic a-fib Continue current management Metoprolol 50mg po BID. Xarelto discontinued due to thrombocytopenia 6. COPD chronic Duonebs ordered PRN 7. Hyponatremia Status: Acute Dr Allen consulted Na 127- received Tolvaptan yesterday 8.Hypokalemia Replete PRN 9.Hypothyroid Continue home medication: Levothyroxine 50mcg daily. 10. CKD adjust med dose renally Nephrology consult- Dr Allen 11. Physical Deconditioning PT/OT consult 12. Aphthous Ulcers , mouth sec to chemotherapy started Magic mouthwash DVT prophylaxis Status: Acute Comment: Patient was on xarelto, d/c 2/2 thrombocytopenia, no anticoag
--- NOTE | 2017-11-18 15:54 | CP.PCM.PN ---
Subjective - Date & Time of Evaluation Date of Evaluation: 11/18/17 Time of Evaluation: 15:50 - Subjective Subjective: I D NOTE WBC:25 RENAL FUNCTION UNCHANGED FROM YESTERDAY PATIENT IS SOB WAS SEATED IN CHAIR LUNGS:RALES AT BASES Objective - Vital Signs/Intake and Output Vital Signs (last 24 hours): Temp Pulse Resp BP Pulse Ox 97.4 F L 101 H 19 102/68 96 11/18/17 07:49 11/18/17 10:11 11/18/17 07:49 11/18/17 10:11 11/18/17 07:49 - Medications Medications: Current Medications Acetaminophen (Tylenol 650 Mg Supp) 650 mg [place] Q6 PRN PRN Reason: Fever >100.4 F Last Admin: 11/14/17 00:35 Dose: 650 mg Allopurinol (Zyloprim) 100 mg PO DAILY [facility] Last Admin: 11/18/17 10:14 Dose: 100 mg Atorvastatin Calcium (Lipitor) 10 mg PO DAILY [facility] Last Admin: 11/18/17 10:11 Dose: 10 mg Cholecalciferol (Vitamin D) 1,000 intlu PO DAILY [facility] Last Admin: 11/18/17 10:14 Dose: 1,000 intlu Docusate Sodium (Colace) 100 mg PO BID PRN PRN Reason: Constipation Emollient Ointment (Vaseline Oint) 1 pkt TOP BID [facility] Last Admin: 11/18/17 10:14 Dose: 1 pkt Epoetin Rolo (Procrit) 40,000 unit SC ONCE [facility] Ceftaroline Fosamil 200 mg/ (Sodium Chloride) 100 mls @ 100 mls/hr IVPB Q12 [facility] PRN Reason: Protocol Last Admin: 11/18/17 10:13 Dose: 100 mls/hr Insulin Human Lispro (Humalog) 0 units SC ACHS [facility] PRN Reason: Protocol Last Admin: 11/18/17 12:23 Dose: 2 u Ipratropium [place] (Atrovent) 0.5 mg IH RQID [facility] Last Admin: 11/18/17 11:06 Dose: 0.5 mg Levalbuterol HCl (Xopenex) 0.63 mg INH RQ4 PRN PRN Reason: Shortness of Breath Last Admin: 11/17/17 15:45 Dose: 0.63 mg Levothyroxine Sodium (Synthroid) 50 mcg PO DAILY@0630 [facility] Last Admin: 11/18/17 06:47 Dose: 50 mcg Metoprolol Tartrate (Lopressor) 75 mg PO Q12 [facility] Last Admin: 11/18/17 10:11 Dose: 75 mg Multivitamins/Minerals (Therapeutic-M Tab) 1 tab PO DAILY [facility] Last Admin: 11/18/17 10:13 Dose: 1 tab Ondansetron HCl (Zofran Inj) 4 mg IVP Q6 PRN PRN Reason: Nausea/Vomiting Last Admin: 11/13/17 17:15 Dose: 4 mg Saliva Substitute (First Magic Mouthwash) 15 ml PO QID [facility] Last Admin: 11/18/17 14:39 Dose: Not Given Sitagliptin Phosphate (Januvia) 100 mg PO DAILY [facility] Last Admin: 11/18/17 10:10 Dose: 100 mg - Labs Labs: 11/18/17 05:30 11/18/17 05:30
--- NOTE | 2017-11-18 16:25 | CP.PCM.PN ---
Subjective - Date & Time of Evaluation Date of Evaluation: 11/18/17 Time of Evaluation: 16:19 - Subjective Subjective: RENAL seen and examined denies n/v pe: vs asbelow gen: nad sclera: anicteric op clear neck supple cv: +S1+s2 lungs: Cta b/l abd: soft ext: 1 + edema neuro: follows commands psych: nml affect skin no rash imp: hyponatremia / arf/ lymphoma / sepsis / anemia plan: monitor na- ordered u na, osmol. will see if c/w siadh prior to giving another dose of tolvaptain anemia per onc aliyah likely sepsis related atn dose meds for reduce egfr Objective - Vital Signs/Intake and Output Vital Signs (last 24 hours): Temp Pulse Resp BP Pulse Ox 97.6 F 100 H 20 122/77 95 11/18/17 16:10 11/18/17 16:10 11/18/17 16:10 11/18/17 16:10 11/18/17 16:10 - Medications Medications: Current Medications Acetaminophen (Tylenol 650 Mg Supp) 650 mg [place] Q6 PRN PRN Reason: Fever >100.4 F Last Admin: 11/14/17 00:35 Dose: 650 mg Allopurinol (Zyloprim) 100 mg PO DAILY [facility] Last Admin: 11/18/17 10:14 Dose: 100 mg Atorvastatin Calcium (Lipitor) 10 mg PO DAILY [facility] Last Admin: 11/18/17 10:11 Dose: 10 mg Cholecalciferol (Vitamin D) 1,000 intlu PO DAILY [facility] Last Admin: 11/18/17 10:14 Dose: 1,000 intlu Docusate Sodium (Colace) 100 mg PO BID PRN PRN Reason: Constipation Emollient Ointment (Vaseline Oint) 1 pkt TOP BID [facility] Last Admin: 11/18/17 10:14 Dose: 1 pkt Epoetin Rolo (Procrit) 40,000 unit SC ONCE [facility] Ceftaroline Fosamil 200 mg/ (Sodium Chloride) 100 mls @ 100 mls/hr IVPB Q12 [facility] PRN Reason: Protocol Last Admin: 11/18/17 10:13 Dose: 100 mls/hr Insulin Human Lispro (Humalog) 0 units SC ACHS [facility] PRN Reason: Protocol Last Admin: 11/18/17 12:23 Dose: 2 u Ipratropium [place] (Atrovent) 0.5 mg IH RQID [facility] Last Admin: 11/18/17 11:06 Dose: 0.5 mg Levalbuterol HCl (Xopenex) 0.63 mg INH RQ4 PRN PRN Reason: Shortness of Breath Last Admin: 11/17/17 15:45 Dose: 0.63 mg Levothyroxine Sodium (Synthroid) 50 mcg PO DAILY@0630 [facility] Last Admin: 11/18/17 06:47 Dose: 50 mcg Metoprolol Tartrate (Lopressor) 75 mg PO Q12 [facility] Last Admin: 11/18/17 10:11 Dose: 75 mg Multivitamins/Minerals (Therapeutic-M Tab) 1 tab PO DAILY [facility] Last Admin: 11/18/17 10:13 Dose: 1 tab Ondansetron HCl (Zofran Inj) 4 mg IVP Q6 PRN PRN Reason: Nausea/Vomiting Last Admin: 11/13/17 17:15 Dose: 4 mg Saliva Substitute (First Magic Mouthwash) 15 ml PO QID [facility] Last Admin: 11/18/17 14:39 Dose: Not Given Sitagliptin Phosphate (Januvia) 100 mg PO DAILY [facility] Last Admin: 11/18/17 10:10 Dose: 100 mg - Labs Labs: 11/18/17 05:30 11/18/17 05:30
[2017-11-18] MEDS ORDERED: Magnesium Sulfate 1 GM in Dextrose 5% In Water 100 ML IVPB ONE (17:09)
[2017-11-18] MEDS ORDERED: guaiFENesin DM 200 mg-20 mg/10 ml UD PO ONE (18:44)
[2017-11-18 20:13] LABS: OSMOLALITY,URINE 316 mosm/kg (300-1000)
[2017-11-19] MEDS: Levothyroxine 50 MCG TAB PO SCH (06:53)
[2017-11-19 07:46] LABS: BASO % 0.1 % (0.0-2.0); EOS # 0.1 K/uL (0.0-0.7); EOS % 0.3 % (0.0-4.0); HEMOGLOBIN 9.4 g/dL (12.0-16.0); LYMPH # 0.6 K/uL (1.0-4.3); MEAN CELL VOLUME 82.1 fl (81.0-99.0); MEAN CORPUSCULAR HEMOGLOBIN 26.4 pg (27.0-31.0); MEAN CORPUSCULAR HGB CONC 32.1 g/dL (33.0-37.0); MEAN PLATELET VOLUME 9.8 fl (7.2-11.7); MONO # 0.3 K/uL (0.0-0.8); NEUT # 26.6 K/uL (1.8-7.0); NEUT % 96.6 % (50.0-75.0); NRBC % 0.1 % (0.0-0.0); PLATELET COUNT 87 K/uL (130-400); RBC 3.57 Mil/uL (3.80-5.20); RED CELL DISTRIBUTION WIDTH 18.7 % (11.5-14.5); WHITE BLOOD COUNT 27.6 K/uL (4.8-10.8)
[2017-11-19 08:12] LABS: ALB/GLOB RATIO 1.4 (1.0-2.1); ALBUMIN 2.6 g/dL (3.5-5.0); CALCIUM 8.8 mg/dL (8.4-10.2)
[2017-11-19] MEDS: Ipratropium 0.02% Inhal Soln (0.5 mg/2.5 ml) UD IH SCH ×4 (08:12→19:06)
[2017-11-19] MEDS: Levalbuterol 0.63 MG/3 ML Inhal Soln UD INH PRN (08:12)
--- NOTE | 2017-11-19 08:26 | RAD ---
Date of service: 11/18/2017 HISTORY: SOB COMPARISON: No prior. FINDINGS: LUNGS: Bilateral interstitial infiltrates PLEURA: No significant pleural effusion identified, no pneumothorax apparent. CARDIOVASCULAR: Cardiomegaly. OSSEOUS STRUCTURES: No significant abnormalities. VISUALIZED UPPER ABDOMEN: Normal. OTHER FINDINGS: Status post median sternotomy. Right Portacath IMPRESSION: Bilateral interstitial changes. Cardiomegaly.
[2017-11-19] MEDS: Insulin Lispro (humaLOG) 100 Units/ml Inj SC SCH ×4 (09:58→22:48)
[2017-11-19] MEDS: Cholecalciferol 1,000 INTLU TAB PO SCH (10:01)
[2017-11-19] MEDS: Multivitamin With Minerals Tab PO SCH (10:01)
[2017-11-19] MEDS: Petrolatum UD PAK TOP SCH ×2 (10:01→17:26)
[2017-11-19] MEDS: Mag&Al/Simet/Diphen/Lido 237 ML KIT PO SCH ×4 (10:02→21:35)
--- NOTE | 2017-11-19 11:22 | CP.PCM.PN ---
Subjective - Date & Time of Evaluation Date of Evaluation: 11/19/17 Time of Evaluation: 10:00 - Subjective Subjective: Patient seen and examined this morning OOBTC. WBC increased to 27.6 after Granix Denies any sob, cp today. Eating well. No other new complaints today. Objective - Vital Signs/Intake and Output Vital Signs (last 24 hours): Temp Pulse Resp BP Pulse Ox 97.6 F 102 H 18 131/75 96 11/19/17 07:42 11/19/17 10:00 11/19/17 07:42 11/19/17 10:00 11/19/17 07:42 Intake and Output: 11/19/17 11/19/17 06:59 18:59 Intake Total 660 Output Total 200 Balance 460 - Medications Medications: Current Medications Acetaminophen (Tylenol 650 Mg Supp) 650 mg [place] Q6 PRN PRN Reason: Fever >100.4 F Last Admin: 11/14/17 00:35 Dose: 650 mg Allopurinol (Zyloprim) 100 mg PO DAILY [facility] Last Admin: 11/19/17 10:01 Dose: 100 mg Atorvastatin Calcium (Lipitor) 10 mg PO DAILY [facility] Last Admin: 11/19/17 10:00 Dose: 10 mg Cholecalciferol (Vitamin D) 1,000 intlu PO DAILY [facility] Last Admin: 11/19/17 10:01 Dose: 1,000 intlu Docusate Sodium (Colace) 100 mg PO BID PRN PRN Reason: Constipation Emollient Ointment (Vaseline Oint) 1 pkt TOP BID [facility] Last Admin: 11/19/17 10:01 Dose: 1 pkt Epoetin Rolo (Procrit) 40,000 unit SC ONCE [facility] Ceftaroline Fosamil 200 mg/ (Sodium Chloride) 100 mls @ 100 mls/hr IVPB Q12 [facility] PRN Reason: Protocol Last Admin: 11/18/17 21:16 Dose: 100 mls/hr Insulin Human Lispro (Humalog) 0 units SC ACHS [facility] PRN Reason: Protocol Last Admin: 11/19/17 09:58 Dose: 1 u Ipratropium [place] (Atrovent) 0.5 mg IH RQID [facility] Last Admin: 11/19/17 08:12 Dose: 0.5 mg Levalbuterol HCl (Xopenex) 0.63 mg INH RQ4 PRN PRN Reason: Shortness of Breath Last Admin: 11/19/17 08:12 Dose: 0.63 mg Levothyroxine Sodium (Synthroid) 50 mcg PO DAILY@0630 [facility] Last Admin: 11/19/17 06:53 Dose: 50 mcg Metoprolol Tartrate (Lopressor) 75 mg PO Q12 [facility] Last Admin: 11/19/17 10:00 Dose: 75 mg Multivitamins/Minerals (Therapeutic-M Tab) 1 tab PO DAILY [facility] Last Admin: 11/19/17 10:01 Dose: 1 tab Ondansetron HCl (Zofran Inj) 4 mg IVP Q6 PRN PRN Reason: Nausea/Vomiting Last Admin: 11/13/17 17:15 Dose: 4 mg Saliva Substitute (First Magic Mouthwash) 15 ml PO QID [facility] Last Admin: 11/19/17 10:02 Dose: 15 ml Sitagliptin Phosphate (Januvia) 100 mg PO DAILY [facility] Last Admin: 11/19/17 10:00 Dose: 100 mg - Labs Labs: 11/19/17 07:30 11/19/17 07:30 - Additional Findings Additional findings: Physical exam: Constitutional- cooperative, awake, alert, chronically ill patient Head- NCAT, PERRL Eye- PERRL, EOMI ENT- normal exam, MMM. Neck- normal inspection, supple, no JVD Respiratory- CTAB, no wheezes rales rhonchi Cardiovascular- irregular rhythm, borderline tachycardia, +S1, +S2 no MRG GI/Abdominal- normal bowel sounds, soft, no mass, no hsm Skin- warm, dry Extremities Exam- normal capillary refill, normal inspection Neurological Exam- alert, awake, oriented Psych- normal mood, normal affect Assessment and Plan - Assessment and Plan (Free Text) Plan: 77 yr old f with medical history including A fib, CAD (CABG triple bypass), COPD , hypercholesterolemia, hypothyroidism, HTN, DM type 2, CHF, MDS, B Cell lymphoma presented from Infusion center per Dr. Luz Nunes for WBC 0.6. Pt also presents with constant moderate dyspnea, associated with fatigue and weakness. CXR showed LLL infiltrate. EKG AFIB with rate 135, Lopressor given. Vancomycin and Zosyn initially given but now patient switched to Teflaro. 1. Sepsis 2/2 LLL Pneumonia likely bacterial in a Neutropenic pt Now with Leukocytosis, WBC 27.6, Neutrophils 26.6 Dr Suggs consulted - discussed case- Continue Teflaro 200 mg IVPB q [address] Vazquez pulmonology consult following pt closely 2. B-cell lymphoma Status: Acute Chemotherapy over two day duration completed a few days ago Dr. Nunes will continue to follow. 3. MDS (myelodysplastic syndrome) Status: Acute Chemotherapy, Dr. Nunes will continue to follow. 4. Pancytopenia sec to Chemotherapy Status: Acute WBC ct now high- reverse isolation d/c Pt received Granix so WBC now 20K Dr. Nunes will continue to follow Transfused 2 units PRBC 11/15 5. Chronic a-fib Continue current management Metoprolol 50mg po BID. Xarelto discontinued due to thrombocytopenia 6. COPD chronic Duonebs ordered PRN 7. Hyponatremia, slowly improving Status: Acute Dr Allen consulted Na 127-> 129 today- received Tolvaptan 8.Hypokalemia Replete PRN 9. Hypomagnesemia repleting today IV 9.Hypothyroid Continue home medication: Levothyroxine 50mcg daily. 10. CKD adjust med dose renally Nephrology consult- Dr Allen Stable 11. Physical Deconditioning PT/OT consult 12. Aphthous Ulcers , mouth sec to chemotherapy started Magic mouthwash DVT prophylaxis Status: Acute Comment: Patient was on xarelto, d/c 2/2 thrombocytopenia, no anticoag SCDs
[2017-11-19] MEDS ORDERED: Magnesium Sulfate 2 gm/50 ml 2 GM/50 ML BAG IVPB ONE (11:30)
--- NOTE | 2017-11-19 12:15 | CP.PCM.PN ---
Subjective - Date & Time of Evaluation Date of Evaluation: 11/19/17 Time of Evaluation: 12:15 - Subjective Subjective: I D NOTE RANDOM VANCOMYCIN LEVEL IS 9.5 GFR:34,CREATININE IS 1.5 AFFEBRILE WBC:27.5(ON GRANIX) CXR:BILATERAL INTERSTITIAL MARKINGS Objective - Vital Signs/Intake and Output Vital Signs (last 24 hours): Temp Pulse Resp BP Pulse Ox 97.6 F 102 H 18 131/75 96 11/19/17 07:42 11/19/17 10:00 11/19/17 07:42 11/19/17 10:00 11/19/17 07:42 Intake and Output: 11/19/17 11/19/17 06:59 18:59 Intake Total 660 Output Total 200 Balance 460 - Medications Medications: Current Medications Acetaminophen (Tylenol 650 Mg Supp) 650 mg [place] Q6 PRN PRN Reason: Fever >100.4 F Last Admin: 11/14/17 00:35 Dose: 650 mg Allopurinol (Zyloprim) 100 mg PO DAILY [facility] Last Admin: 11/19/17 10:01 Dose: 100 mg Atorvastatin Calcium (Lipitor) 10 mg PO DAILY [facility] Last Admin: 11/19/17 10:00 Dose: 10 mg Cholecalciferol (Vitamin D) 1,000 intlu PO DAILY [facility] Last Admin: 11/19/17 10:01 Dose: 1,000 intlu Docusate Sodium (Colace) 100 mg PO BID PRN PRN Reason: Constipation Emollient Ointment (Vaseline Oint) 1 pkt TOP BID [facility] Last Admin: 11/19/17 10:01 Dose: 1 pkt Epoetin [place] (Procrit) 40,000 unit SC ONCE [facility] Ceftaroline Fosamil 200 mg/ (Sodium Chloride) 100 mls @ 100 mls/hr IVPB Q12 [facility] PRN Reason: Protocol Last Admin: 11/19/17 11:24 Dose: 100 mls/hr Magnesium Sulfate (Magnesium Sulfate 2 Gm/50 Ml Water) 2 gm in 50 mls @ 50 mls/ hr IVPB ONCE ONE PRN Reason: 2 GM/HR Stop: 11/19/17 12:29 Insulin Human Lispro (Humalog) 0 units SC ACHS [facility] PRN Reason: Protocol Last Admin: 11/19/17 09:58 Dose: 1 u Ipratropium [place] (Atrovent) 0.5 mg IH RQID [facility] Last Admin: 11/19/17 12:06 Dose: 0.5 mg Levalbuterol HCl (Xopenex) 0.63 mg INH RQ4 PRN PRN Reason: Shortness of Breath Last Admin: 11/19/17 08:12 Dose: 0.63 mg Levothyroxine Sodium (Synthroid) 50 mcg PO DAILY@0630 [facility] Last Admin: 11/19/17 06:53 Dose: 50 mcg Metoprolol Tartrate (Lopressor) 75 mg PO Q12 [facility] Last Admin: 11/19/17 10:00 Dose: 75 mg Multivitamins/Minerals (Therapeutic-M Tab) 1 tab PO DAILY [facility] Last Admin: 11/19/17 10:01 Dose: 1 tab Ondansetron HCl (Zofran Inj) 4 mg IVP Q6 PRN PRN Reason: Nausea/Vomiting Last Admin: 11/13/17 17:15 Dose: 4 mg Saliva Substitute (First Magic Mouthwash) 15 ml PO QID [facility] Last Admin: 11/19/17 10:02 Dose: 15 ml Sitagliptin Phosphate (Januvia) 100 mg PO DAILY [facility] Last Admin: 11/19/17 10:00 Dose: 100 mg - Labs Labs: 11/19/17 07:30 11/19/17 07:30
[2017-11-19 12:23] LABS: ANISOCYTOSIS SLIGHT; BANDS 6 % (0-2); LYMPHOCYTE 4 % (20-50); MONOCYTE 2 % (0-10); NEUTROPHIL 88 % (42-75); PLATELET ESTIMATE DECREASED (NORMAL); TOTAL CELLS COUNTED 100
[2017-11-19 12:24] LABS: HYPOCHROMIC SLIGHT
[2017-11-19 12:25] LABS: OVALOCYTES SLIGHT; SCHISTOCYTES SLIGHT; TEARDROP CELLS SLIGHT; TOXIC GRANULATION PRESENT
[2017-11-19] MEDS: Proshield Plus GEL TOP PRN (14:17)
[2017-11-20] MEDS: Levothyroxine 50 MCG TAB PO SCH (06:27)
[2017-11-20 06:56] LABS: HEMOGLOBIN 9.6 g/dL (12.0-16.0); MEAN CELL VOLUME 83.5 fl (81.0-99.0); MEAN CORPUSCULAR HEMOGLOBIN 26.7 pg (27.0-31.0); RBC 3.59 Mil/uL (3.80-5.20); RED CELL DISTRIBUTION WIDTH 18.7 % (11.5-14.5); WHITE BLOOD COUNT 27.7 K/uL (4.8-10.8)
[2017-11-20 07:13] LABS: ALB/GLOB RATIO 1.4 (1.0-2.1); ALBUMIN 2.6 g/dL (3.5-5.0); CALCIUM 8.9 mg/dL (8.4-10.2)
[2017-11-20] MEDS: Levalbuterol 0.63 MG/3 ML Inhal Soln UD INH PRN ×2 (07:48→11:52)
[2017-11-20] MEDS: Ipratropium 0.02% Inhal Soln (0.5 mg/2.5 ml) UD IH SCH ×4 (07:48→19:03)
[2017-11-20] MEDS: Lactobacillus Acidophilus 500 MU Cap PO SCH ×2 (09:12→16:08)
[2017-11-20] MEDS: Mag&Al/Simet/Diphen/Lido 237 ML KIT PO SCH ×5 (09:14→21:12)
[2017-11-20] MEDS: Insulin Lispro (humaLOG) 100 Units/ml Inj SC SCH ×4 (09:15→22:00)
[2017-11-20] MEDS: Multivitamin With Minerals Tab PO SCH (09:20)
[2017-11-20] MEDS: Petrolatum UD PAK TOP SCH ×2 (09:21→16:10)
[2017-11-20] MEDS: Cholecalciferol 1,000 INTLU TAB PO SCH (09:21)
--- NOTE | 2017-11-20 10:25 | CP.PCM.PN ---
Subjective - Date & Time of Evaluation Date of Evaluation: 11/20/17 Time of Evaluation: 09:45 - Subjective Subjective: Appears exhausted, pale Afebrile A Fib at 90 BPM BP 130/74 mm Hg Hb 9.6 gms (Stable) BUN/Creatinin begining to improve K+ normal Objective - Vital Signs/Intake and Output Vital Signs (last 24 hours): Temp Pulse Resp BP Pulse Ox 98.5 F 98 H 20 148/72 97 11/20/17 08:04 11/20/17 09:19 11/20/17 08:04 11/20/17 09:19 11/20/17 08:04 - Medications Medications: Current Medications Acetaminophen (Tylenol 650 Mg Supp) 650 mg [place] Q6 PRN PRN Reason: Fever >100.4 F Last Admin: 11/14/17 00:35 Dose: 650 mg Allopurinol (Zyloprim) 100 mg PO DAILY [facility] Last Admin: 11/20/17 09:21 Dose: 100 mg Atorvastatin Calcium (Lipitor) 10 mg PO DAILY [facility] Last Admin: 11/20/17 09:18 Dose: 10 mg Cholecalciferol (Vitamin D) 1,000 intlu PO DAILY [facility] Last Admin: 11/20/17 09:21 Dose: 1,000 intlu Dimethicone (Proshield Plus Skin Protectant) 1 applic TOP Q8 PRN PRN Reason: Rash Last Admin: 11/19/17 14:17 Dose: 1 applic Docusate Sodium (Colace) 100 mg PO BID PRN PRN Reason: Constipation Emollient Ointment (Vaseline Oint) 1 pkt TOP BID [facility] Last Admin: 11/20/17 09:21 Dose: 1 pkt Epoetin [place] (Procrit) 40,000 unit SC ONCE [facility] Ceftaroline Fosamil 200 mg/ (Sodium Chloride) 100 mls @ 100 mls/hr IVPB Q12 [facility] PRN Reason: Protocol Last Admin: 11/19/17 21:30 Dose: 100 mls/hr Insulin Human Lispro (Humalog) 0 units SC ACHS [facility] PRN Reason: Protocol Last Admin: 11/20/17 09:15 Dose: 1 u Ipratropium [place] (Atrovent) 0.5 mg IH RQID [facility] Last Admin: 11/20/17 07:48 Dose: 0.5 mg Lactobacillus Acidophilus (Bacid Acidophilus) 1 cap PO BID [facility] Last Admin: 11/20/17 09:12 Dose: 1 cap Levalbuterol HCl (Xopenex) 0.63 mg INH RQ4 PRN PRN Reason: Shortness of Breath Last Admin: 11/20/17 07:48 Dose: 0.63 mg Levothyroxine Sodium (Synthroid) 50 mcg PO DAILY@0630 [facility] Last Admin: 11/20/17 06:27 Dose: 50 mcg Metoprolol Tartrate (Lopressor) 75 mg PO Q12 [facility] Last Admin: 11/20/17 09:19 Dose: 75 mg Metronidazole (Flagyl) 500 mg PO Q8 [facility] PRN Reason: Protocol Multivitamins/Minerals (Therapeutic-M Tab) 1 tab PO DAILY [facility] Last Admin: 11/20/17 09:20 Dose: 1 tab Ondansetron HCl (Zofran Inj) 4 mg IVP Q6 PRN PRN Reason: Nausea/Vomiting Last Admin: 11/13/17 17:15 Dose: 4 mg Saliva Substitute (First Magic Mouthwash) 15 ml PO QID [facility] Last Admin: 11/20/17 09:34 Dose: Not Given Sitagliptin Phosphate (Januvia) 100 mg PO DAILY [facility] Last Admin: 11/20/17 09:17 Dose: 100 mg - Labs Labs: 11/20/17 05:41 11/20/17 05:41
--- NOTE | 2017-11-20 10:28 | CP.PCM.PN ---
Subjective - Date & Time of Evaluation Date of Evaluation: 11/20/17 Time of Evaluation: 10:24 - Subjective Subjective: Pt is feeling a little better. Her appetite is still poor, and she is still very weak, but is sitting up for longer periods of time. Her HR is down to 96, and she is afebrile. CBC is unchanged, She is still on antibiotics Will wait until she is off the antibiotics to start the chem0 Objective - Vital Signs/Intake and Output Vital Signs (last 24 hours): Temp Pulse Resp BP Pulse Ox 98.5 F 98 H 20 148/72 97 11/20/17 08:04 11/20/17 09:19 11/20/17 08:04 11/20/17 09:19 11/20/17 08:04 - Medications Medications: Current Medications Acetaminophen (Tylenol 650 Mg Supp) 650 mg [place] Q6 PRN PRN Reason: Fever >100.4 F Last Admin: 11/14/17 00:35 Dose: 650 mg Allopurinol (Zyloprim) 100 mg PO DAILY [facility] Last Admin: 11/20/17 09:21 Dose: 100 mg Atorvastatin Calcium (Lipitor) 10 mg PO DAILY [facility] Last Admin: 11/20/17 09:18 Dose: 10 mg Cholecalciferol (Vitamin D) 1,000 intlu PO DAILY [facility] Last Admin: 11/20/17 09:21 Dose: 1,000 intlu Dimethicone (Proshield Plus Skin Protectant) 1 applic TOP Q8 PRN PRN Reason: Rash Last Admin: 11/19/17 14:17 Dose: 1 applic Docusate Sodium (Colace) 100 mg PO BID PRN PRN Reason: Constipation Emollient Ointment (Vaseline Oint) 1 pkt TOP BID [facility] Last Admin: 11/20/17 09:21 Dose: 1 pkt Epoetin Rolo (Procrit) 40,000 unit SC ONCE [facility] Ceftaroline Fosamil 200 mg/ (Sodium Chloride) 100 mls @ 100 mls/hr IVPB Q12 [facility] PRN Reason: Protocol Last Admin: 11/19/17 21:30 Dose: 100 mls/hr Insulin Human Lispro (Humalog) 0 units SC ACHS [facility] PRN Reason: Protocol Last Admin: 11/20/17 09:15 Dose: 1 u Ipratropium [place] (Atrovent) 0.5 mg IH RQID [facility] Last Admin: 11/20/17 07:48 Dose: 0.5 mg Lactobacillus Acidophilus (Bacid Acidophilus) 1 cap PO BID [facility] Last Admin: 11/20/17 09:12 Dose: 1 cap Levalbuterol HCl (Xopenex) 0.63 mg INH RQ4 PRN PRN Reason: Shortness of Breath Last Admin: 11/20/17 07:48 Dose: 0.63 mg Levothyroxine Sodium (Synthroid) 50 mcg PO DAILY@0630 [facility] Last Admin: 11/20/17 06:27 Dose: 50 mcg Metoprolol Tartrate (Lopressor) 75 mg PO Q12 [facility] Last Admin: 11/20/17 09:19 Dose: 75 mg Metronidazole (Flagyl) 500 mg PO Q8 [facility] PRN Reason: Protocol Multivitamins/Minerals (Therapeutic-M Tab) 1 tab PO DAILY [facility] Last Admin: 11/20/17 09:20 Dose: 1 tab Ondansetron HCl (Zofran Inj) 4 mg IVP Q6 PRN PRN Reason: Nausea/Vomiting Last Admin: 11/13/17 17:15 Dose: 4 mg Saliva Substitute (First Magic Mouthwash) 15 ml PO QID [facility] Last Admin: 11/20/17 09:34 Dose: Not Given Sitagliptin Phosphate (Januvia) 100 mg PO DAILY [facility] Last Admin: 11/20/17 09:17 Dose: 100 mg - Labs Labs: 11/20/17 05:41 11/20/17 05:41
--- NOTE | 2017-11-20 10:29 | CP.PCM.PN ---
Subjective - Date & Time of Evaluation Date of Evaluation: 11/20/17 Time of Evaluation: 10:26 - Subjective Subjective: patient sitting up in bed. She is taken have breakfast Patient taken a lot of liquid surrounding her No nausea no vomiting Objective - Vital Signs/Intake and Output Vital Signs (last 24 hours): Temp Pulse Resp BP Pulse Ox 98.5 F 98 H 20 148/72 97 11/20/17 08:04 11/20/17 09:19 11/20/17 08:04 11/20/17 09:19 11/20/17 08:04 - Medications Medications: Current Medications Acetaminophen (Tylenol 650 Mg Supp) 650 mg [place] Q6 PRN PRN Reason: Fever >100.4 F Last Admin: 11/14/17 00:35 Dose: 650 mg Allopurinol (Zyloprim) 100 mg PO DAILY [facility] Last Admin: 11/20/17 09:21 Dose: 100 mg Atorvastatin Calcium (Lipitor) 10 mg PO DAILY [facility] Last Admin: 11/20/17 09:18 Dose: 10 mg Cholecalciferol (Vitamin D) 1,000 intlu PO DAILY [facility] Last Admin: 11/20/17 09:21 Dose: 1,000 intlu Dimethicone (Proshield Plus Skin Protectant) 1 applic TOP Q8 PRN PRN Reason: Rash Last Admin: 11/19/17 14:17 Dose: 1 applic Docusate Sodium (Colace) 100 mg PO BID PRN PRN Reason: Constipation Emollient Ointment (Vaseline Oint) 1 pkt TOP BID [facility] Last Admin: 11/20/17 09:21 Dose: 1 pkt Epoetin Rolo (Procrit) 40,000 unit SC ONCE [facility] Ceftaroline Fosamil 200 mg/ (Sodium Chloride) 100 mls @ 100 mls/hr IVPB Q12 [facility] PRN Reason: Protocol Last Admin: 11/19/17 21:30 Dose: 100 mls/hr Insulin Human Lispro (Humalog) 0 units SC ACHS [facility] PRN Reason: Protocol Last Admin: 11/20/17 09:15 Dose: 1 u Ipratropium [place] (Atrovent) 0.5 mg IH RQID [facility] Last Admin: 11/20/17 07:48 Dose: 0.5 mg Lactobacillus Acidophilus (Bacid Acidophilus) 1 cap PO BID [facility] Last Admin: 11/20/17 09:12 Dose: 1 cap Levalbuterol HCl (Xopenex) 0.63 mg INH RQ4 PRN PRN Reason: Shortness of Breath Last Admin: 11/20/17 07:48 Dose: 0.63 mg Levothyroxine Sodium (Synthroid) 50 mcg PO DAILY@0630 [facility] Last Admin: 11/20/17 06:27 Dose: 50 mcg Metoprolol Tartrate (Lopressor) 75 mg PO Q12 [facility] Last Admin: 11/20/17 09:19 Dose: 75 mg Metronidazole (Flagyl) 500 mg PO Q8 [facility] PRN Reason: Protocol Multivitamins/Minerals (Therapeutic-M Tab) 1 tab PO DAILY [facility] Last Admin: 11/20/17 09:20 Dose: 1 tab Ondansetron HCl (Zofran Inj) 4 mg IVP Q6 PRN PRN Reason: Nausea/Vomiting Last Admin: 11/13/17 17:15 Dose: 4 mg Saliva Substitute (First Magic Mouthwash) 15 ml PO QID [facility] Last Admin: 11/20/17 09:34 Dose: Not Given Sitagliptin Phosphate (Januvia) 100 mg PO DAILY [facility] Last Admin: 11/20/17 09:17 Dose: 100 mg - Labs Labs: 11/20/17 05:41 11/20/17 05:41 - Constitutional Appears: No Acute Distress - Eye Exam Eye Exam: Conjunctival injection - ENT Exam ENT Exam: Mucous Membranes Moist - Neck Exam Neck Exam: absent: Lymphadenopathy - Respiratory Exam Respiratory Exam: absent: Chest Wall Tenderness, NORMAL BREATHING PATTERN - Cardiovascular Exam Cardiovascular Exam: absent: Gallop, JVD, Rubs - GI/Abdominal Exam GI & Abdominal Exam: Soft, Normal Bowel Sounds - Extremities Exam Extremities Exam: absent: Calf Tenderness - Back Exam Back Exam: absent: CVA tenderness (L), CVA tenderness (R) - Neurological Exam Neurological Exam: Alert - Psychiatric Exam Psychiatric exam: Normal Affect - Skin Skin Exam: absent: Cyanosis Assessment and Plan (1) Atrial fibrillation Status: Acute (2) Bronchopneumonia Status: Acute (3) MDS (myelodysplastic syndrome) Status: Acute (4) Neutropenia Status: Acute (5) B-cell lymphoma Status: Chronic (6) Anemia Status: Acute (7) Hyponatremia Assessment & Plan: hypervolemia hyponatremia serum sodium is still in the range of 129 we will give additional doses of [place] malignancy lymphoma as noted by oncologist. And the rest of the diagnosis as noted medical history including A fib, CAD (CABG triple bypass), COPD, hypercholesterolemia, hypothyroidism, HTN, DM type 2, CHF, 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 (8) Acute kidney injury Status: Acute
--- NOTE | 2017-11-20 11:32 | CP.PCM.PN ---
Subjective - Date & Time of Evaluation Date of Evaluation: 11/20/17 Time of Evaluation: 10:50 - Subjective Subjective: Pt has no fever sl SOB feels weaker today had diarrhea no abd pain no N/V denies CP Objective - Vital Signs/Intake and Output Vital Signs (last 24 hours): Temp Pulse Resp BP Pulse Ox 98.5 F 98 H 20 148/72 97 11/20/17 08:04 11/20/17 09:19 11/20/17 08:04 11/20/17 09:19 11/20/17 08:04 - Medications Medications: Current Medications Acetaminophen (Tylenol 650 Mg Supp) 650 mg [place] Q6 PRN PRN Reason: Fever >100.4 F Last Admin: 11/14/17 00:35 Dose: 650 mg Allopurinol (Zyloprim) 100 mg PO DAILY [facility] Last Admin: 11/20/17 09:21 Dose: 100 mg Atorvastatin Calcium (Lipitor) 10 mg PO DAILY [facility] Last Admin: 11/20/17 09:18 Dose: 10 mg Cholecalciferol (Vitamin D) 1,000 intlu PO DAILY [facility] Last Admin: 11/20/17 09:21 Dose: 1,000 intlu Dimethicone (Proshield Plus Skin Protectant) 1 applic TOP Q8 PRN PRN Reason: Rash Last Admin: 11/19/17 14:17 Dose: 1 applic Docusate Sodium (Colace) 100 mg PO BID PRN PRN Reason: Constipation Emollient Ointment (Vaseline Oint) 1 pkt TOP BID [facility] Last Admin: 11/20/17 09:21 Dose: 1 pkt Epoetin Rolo (Procrit) 40,000 unit SC ONCE [facility] Ceftaroline Fosamil 200 mg/ (Sodium Chloride) 100 mls @ 100 mls/hr IVPB Q12 [facility] PRN Reason: Protocol Last Admin: 11/19/17 21:30 Dose: 100 mls/hr Insulin Human Lispro (Humalog) 0 units SC ACHS [facility] PRN Reason: Protocol Last Admin: 11/20/17 09:15 Dose: 1 u Ipratropium [place] (Atrovent) 0.5 mg IH RQID [facility] Last Admin: 11/20/17 07:48 Dose: 0.5 mg Lactobacillus Acidophilus (Bacid Acidophilus) 1 cap PO BID [facility] Last Admin: 11/20/17 09:12 Dose: 1 cap Levalbuterol HCl (Xopenex) 0.63 mg INH RQ4 PRN PRN Reason: Shortness of Breath Last Admin: 11/20/17 07:48 Dose: 0.63 mg Levothyroxine Sodium (Synthroid) 50 mcg PO DAILY@0630 [facility] Last Admin: 11/20/17 06:27 Dose: 50 mcg Metoprolol Tartrate (Lopressor) 75 mg PO Q12 [facility] Last Admin: 11/20/17 09:19 Dose: 75 mg Metronidazole (Flagyl) 500 mg PO Q8 [facility] PRN Reason: Protocol Multivitamins/Minerals (Therapeutic-M Tab) 1 tab PO DAILY [facility] Last Admin: 11/20/17 09:20 Dose: 1 tab Ondansetron HCl (Zofran Inj) 4 mg IVP Q6 PRN PRN Reason: Nausea/Vomiting Last Admin: 11/13/17 17:15 Dose: 4 mg Saliva Substitute (First Magic Mouthwash) 15 ml PO QID [facility] Last Admin: 11/20/17 09:34 Dose: Not Given Sitagliptin Phosphate (Januvia) 100 mg PO DAILY [facility] Last Admin: 11/20/17 09:17 Dose: 100 mg - Labs Labs: 11/20/17 05:41 11/20/17 05:41 - Constitutional Appears: Non-toxic, No Acute Distress, Chronically Ill - Head Exam Head Exam: NORMAL INSPECTION, NORMOCEPHALIC - Eye Exam Eye Exam: EOMI, Normal appearance Pupil Exam: NORMAL ACCOMODATION - ENT Exam ENT Exam: Mucous Membranes Moist, Normal External Ear Exam lip ulcers - Neck Exam Neck Exam: Full ROM. absent: Meningismus - Respiratory Exam Respiratory Exam: Rales, Rhonchi, NORMAL BREATHING PATTERN. Respiratory Distress slight wheezing - Cardiovascular Exam Cardiovascular Exam: Irregular Rhythm, +S1, +S2 - GI/Abdominal Exam GI & Abdominal Exam: Soft, Normal Bowel Sounds. absent: Tenderness - Extremities Exam Extremities Exam: Pedal Edema. absent: Calf Tenderness LE skin dry - Back Exam Back Exam: absent: CVA tenderness (L), CVA tenderness (R) - Neurological Exam Neurological Exam: Alert, Awake, Oriented x3 - Psychiatric Exam Psychiatric exam: Flat Affect, Normal Mood - Skin Skin Exam: Dry, Pallor, Warm Assessment and Plan - Assessment and Plan (Free Text) Assessment: 77 yr old f with medical history including A fib, CAD (CABG triple bypass), COPD , hypercholesterolemia, hypothyroidism, HTN, DM type 2, CHF, MDS, B Cell lymphoma presented from Infusion center per Dr. Luz Nunes for WBC 0.6. Pt also presents with constant moderate dyspnea, associated with fatigue and weakness. CXR showed LLL infiltrate. EKG AFIB with rate 135, Lopressor given. Vancomycin and Zosyn also initiated. 1. Sepsis 2/2 LLL Pneumonia likely bacterial in a Neutropenic pt Dr Suggs consulted - discussed case- rec to cont Teflaro however change to renal dose, d/c Vancomycin and Bactrim due to abn renl fx. Clindamycin IV also d/c Dr. Vazquez pulmonology consult following pt closely 2. B-cell lymphoma Status: Acute Chemotherapy over two day duration completed a few days ago Dr. Nunes will continue to follow. 3. MDS (myelodysplastic syndrome) Status: Acute Chemotherapy, Dr. Nunes will continue to follow. 4. Pancytopenia sec to Chemotherapy Status: Acute WBC ct now high- reverse isolation d/c Pt received Granix so WBC now 27K Dr. Nunes will continue to follow Transfused 2 units PRBC 11/15 5. Chronic a-fib Continue current management Metoprolol 50mg po BID. Xarelto discontinued due to thrombocytopenia 6. COPD chronic Duonebs ordered PRN 7. Hyponatremia Status: Acute Dr Allen consulted Na 129- received Tolvaptan 8.Hypokalemia Replete PRN 9.Hypothyroid Continue home medication: Levothyroxine 50mcg daily. 10. CKD adjust med dose renally Nephrology consult- Dr Allen 11. Physical Deconditioning PT/OT consult 12. Aphthous Ulcers , mouth sec to chemotherapy started Magic mouthwash 13. C diff Colitis - started pt on PO Flagyl DVT prophylaxis Status: Acute Comment: Patient was on xarelto, d/c 2/2 thrombocytopenia, no anticoag
[2017-11-20] MEDS ORDERED: Albuterol-Ipratrop 3 mg / 0.5 (3 ml) UD INH STA (16:42)
--- NOTE | 2017-11-20 17:51 | CP.PCM.PN ---
Subjective - Date & Time of Evaluation Date of Evaluation: 11/20/17 Time of Evaluation: 17:46 - Subjective Subjective: The patient was seen and examined on rounds earlier in the day with the residents. She claims to feel fatigued but otherwise improved. She does continue to have a congested cough which is productive of minimal amounts of sputum. There is no chest pain or shortness of breath at rest. Her vital signs have remained stable and she continues to oxygenate well. She continues to receive antibiotic therapy with CEFTAROLINE and METRONIDAZOLE. His chest x-ray performed on 11/18/2017 did show some increased interstitial markings which may be related to CHF but did not reveal any areas of consolidation or pleural effusion. On physical exam there are areas of medium rales posteriorly in the lower lobes , but no bronchial breathing or egophony. No audible wheezing was appreciated. The patient will be evaluated for physical therapy and activity out of bed to chair. Objective - Vital Signs/Intake and Output Vital Signs (last 24 hours): Temp Pulse Resp BP Pulse Ox 97.6 F 92 H 20 128/80 95 11/20/17 16:12 11/20/17 16:12 11/20/17 16:12 11/20/17 16:12 11/20/17 16:12 - Medications Medications: Current Medications Acetaminophen (Tylenol 650 Mg Supp) 650 mg [place] Q6 PRN PRN Reason: Fever >100.4 F Last Admin: 11/14/17 00:35 Dose: 650 mg Allopurinol (Zyloprim) 100 mg PO DAILY [facility] Last Admin: 11/20/17 09:21 Dose: 100 mg Atorvastatin Calcium (Lipitor) 10 mg PO DAILY [facility] Last Admin: 11/20/17 09:18 Dose: 10 mg Cholecalciferol (Vitamin D) 1,000 intlu PO DAILY [facility] Last Admin: 11/20/17 09:21 Dose: 1,000 intlu Dimethicone (Proshield Plus Skin Protectant) 1 applic TOP Q8 PRN PRN Reason: Rash Last Admin: 11/19/17 14:17 Dose: 1 applic Docusate Sodium (Colace) 100 mg PO BID PRN PRN Reason: Constipation Emollient Ointment (Vaseline Oint) 1 pkt TOP BID [facility] Last Admin: 11/20/17 16:10 Dose: 1 pkt Epoetin [place]olo (Procrit) 40,000 unit SC ONCE [facility] Ceftaroline Fosamil 200 mg/ (Sodium Chloride) 100 mls @ 100 mls/hr IVPB Q12 [facility] PRN Reason: Protocol Last Admin: 11/20/17 13:00 Dose: 100 mls/hr Insulin Human Lispro (Humalog) 0 units SC ACHS [facility] PRN Reason: Protocol Last Admin: 11/20/17 17:39 Dose: 1 u Ipratropium [place] (Atrovent) 0.5 mg IH RQID [facility] Last Admin: 11/20/17 15:29 Dose: 0.5 mg Lactobacillus Acidophilus (Bacid Acidophilus) 1 cap PO BID [facility] Last Admin: 11/20/17 16:08 Dose: 1 cap Levalbuterol HCl (Xopenex) 0.63 mg INH RQ4 PRN PRN Reason: Shortness of Breath Last Admin: 11/20/17 11:52 Dose: 0.63 mg Levothyroxine Sodium (Synthroid) 50 mcg PO DAILY@0630 [facility] Last Admin: 11/20/17 06:27 Dose: 50 mcg Metoprolol Tartrate (Lopressor) 75 mg PO Q12 [facility] Last Admin: 11/20/17 09:19 Dose: 75 mg Metronidazole (Flagyl) 500 mg PO Q8 [facility] PRN Reason: Protocol Last Admin: 11/20/17 16:09 Dose: 500 mg Multivitamins/Minerals (Therapeutic-M Tab) 1 tab PO DAILY [facility] Last Admin: 11/20/17 09:20 Dose: 1 tab Ondansetron HCl (Zofran Inj) 4 mg IVP Q6 PRN PRN Reason: Nausea/Vomiting Last Admin: 11/13/17 17:15 Dose: 4 mg Saliva Substitute (First Magic Mouthwash) 15 ml PO QID [facility] Last Admin: 11/20/17 16:17 Dose: Not Given Sitagliptin Phosphate (Januvia) 100 mg PO DAILY [facility] Last Admin: 11/20/17 09:17 Dose: 100 mg - Labs Labs: 11/20/17 05:41 11/20/17 05:41 Assessment and Plan (1) Pneumonia Status: Acute (2) Pancytopenia Status: Acute (3) B-cell lymphoma Status: Chronic (4) COPD (chronic obstructive pulmonary disease) Status: Chronic
--- NOTE | 2017-11-20 18:26 | CP.PCM.PN ---
Subjective - Date & Time of Evaluation Date of Evaluation: 11/20/17 Time of Evaluation: 18:25 - Subjective Subjective: I D NOTE PATIENT STILL FATIGUED AFEBRILE RENAL FUNCTION IMPROVING WBC:27 DISCUSSED CXR c PULMONARY HAE C.DIFF,METRONIDAZOLE STARTED Objective - Vital Signs/Intake and Output Vital Signs (last 24 hours): Temp Pulse Resp BP Pulse Ox 97.6 F 92 H 20 128/80 95 11/20/17 16:12 11/20/17 16:12 11/20/17 16:12 11/20/17 16:12 11/20/17 16:12 - Medications Medications: Current Medications Acetaminophen (Tylenol 650 Mg Supp) [address] Q6 PRN PRN Reason: Fever >100.4 F Last Admin: 11/14/17 00:35 Dose: 650 mg Allopurinol (Zyloprim) 100 mg PO DAILY [facility] Last Admin: 11/20/17 09:21 Dose: 100 mg Atorvastatin Calcium (Lipitor) 10 mg PO DAILY [facility] Last Admin: 11/20/17 09:18 Dose: 10 mg Cholecalciferol (Vitamin D) 1,000 intlu PO DAILY [facility] Last Admin: 11/20/17 09:21 Dose: 1,000 intlu Dimethicone (Proshield Plus Skin Protectant) 1 applic TOP Q8 PRN PRN Reason: Rash Last Admin: 11/19/17 14:17 Dose: 1 applic Docusate Sodium (Colace) 100 mg PO BID PRN PRN Reason: Constipation Emollient Ointment (Vaseline Oint) 1 pkt TOP BID [facility] Last Admin: 11/20/17 16:10 Dose: 1 pkt Epoetin [place] (Procrit) 40,000 unit SC ONCE [facility] Ceftaroline Fosamil 200 mg/ (Sodium Chloride) 100 mls @ 100 mls/hr IVPB Q12 [facility] PRN Reason: Protocol Last Admin: 11/20/17 13:00 Dose: 100 mls/hr Insulin Human Lispro (Humalog) 0 units SC ACHS [facility] PRN Reason: Protocol Last Admin: 11/20/17 17:39 Dose: 1 u Ipratropium [place] (Atrovent) 0.5 mg IH RQID [facility] Last Admin: 11/20/17 15:29 Dose: 0.5 mg Lactobacillus Acidophilus (Bacid Acidophilus) 1 cap PO BID [facility] Last Admin: 11/20/17 16:08 Dose: 1 cap Levalbuterol HCl (Xopenex) 0.63 mg INH RQ4 PRN PRN Reason: Shortness of Breath Last Admin: 11/20/17 11:52 Dose: 0.63 mg Levothyroxine Sodium (Synthroid) 50 mcg PO DAILY@0630 [facility] Last Admin: 11/20/17 06:27 Dose: 50 mcg Metoprolol Tartrate (Lopressor) 75 mg PO Q12 [facility] Last Admin: 11/20/17 09:19 Dose: 75 mg Metronidazole (Flagyl) 500 mg PO Q8 [facility] PRN Reason: Protocol Last Admin: 11/20/17 16:09 Dose: 500 mg Multivitamins/Minerals (Therapeutic-M Tab) 1 tab PO DAILY [facility] Last Admin: 11/20/17 09:20 Dose: 1 tab Ondansetron HCl (Zofran Inj) 4 mg IVP Q6 PRN PRN Reason: Nausea/Vomiting Last Admin: 11/13/17 17:15 Dose: 4 mg Saliva Substitute (First Magic Mouthwash) 15 ml PO QID [facility] Last Admin: 11/20/17 16:17 Dose: Not Given Sitagliptin Phosphate (Januvia) 100 mg PO DAILY [facility] Last Admin: 11/20/17 09:17 Dose: 100 mg - Labs Labs: 11/20/17 05:41 11/20/17 05:41
--- NOTE | 2017-11-20 18:31 | CARD ---
APPROVED REPORT Date of service: 11/20/2017 <Conclusion> Atrial fibrillation Left axis deviation Inferior infarct, age undetermined Cannot rule out Anterior infarct, age undetermined Abnormal ECG
[2017-11-21] MEDS: Levothyroxine 50 MCG TAB PO SCH (06:59)
[2017-11-21 07:07] LABS: BASO # 0.1 K/uL (0.0-0.2); BASO % 0.2 % (0.0-2.0); EOS # 0.2 K/uL (0.0-0.7); EOS % 0.9 % (0.0-4.0); HEMOGLOBIN 9.6 g/dL (12.0-16.0); LYMPH # 0.5 K/uL (1.0-4.3); LYMPH % 1.9 % (20.0-40.0); MEAN CELL VOLUME 82.4 fl (81.0-99.0); MEAN CORPUSCULAR HEMOGLOBIN 26.8 pg (27.0-31.0); MEAN CORPUSCULAR HGB CONC 32.5 g/dL (33.0-37.0); MEAN PLATELET VOLUME 9.9 fl (7.2-11.7); MONO % 0.1 % (0.0-10.0); NEUT # 24.2 K/uL (1.8-7.0); NEUT % 96.9 % (50.0-75.0); PLATELET COUNT 87 K/uL (130-400); RBC 3.57 Mil/uL (3.80-5.20); RED CELL DISTRIBUTION WIDTH 18.8 % (11.5-14.5); WHITE BLOOD COUNT 24.9 K/uL (4.8-10.8)
[2017-11-21] MEDS: Ipratropium 0.02% Inhal Soln (0.5 mg/2.5 ml) UD IH SCH ×4 (07:23→19:10)
[2017-11-21 07:24] LABS: ALB/GLOB RATIO 1.4 (1.0-2.1); ALBUMIN 2.7 g/dL (3.5-5.0)
[2017-11-21] MEDS ORDERED: Magnesium Sulfate 2 gm/50 ml 2 GM/50 ML BAG IVPB ONE (09:01)
[2017-11-21 09:22] LABS: ANISOCYTOSIS SLIGHT; BANDS 3 % (0-2); HYPOCHROMIC SLIGHT; LYMPHOCYTE 3 % (20-50); MONOCYTE 3 % (0-10); MYELOCYTE 2 % (0-0); NEUTROPHIL 89 % (42-75); NUCLEATED RED BLOOD CELL 1 % (0-0); PLATELET ESTIMATE DECREASED (NORMAL); TOTAL CELLS COUNTED 100
[2017-11-21] MEDS: Lactobacillus Acidophilus 500 MU Cap PO SCH ×2 (09:22→16:35)
[2017-11-21 09:23] LABS: OVALOCYTES SLIGHT; SCHISTOCYTES SLIGHT; TEARDROP CELLS SLIGHT; TOXIC GRANULATION PRESENT
[2017-11-21] MEDS: Proshield Plus GEL TOP PRN (09:23)
[2017-11-21] MEDS: Mag&Al/Simet/Diphen/Lido 237 ML KIT PO SCH ×2 (09:23→12:57)
[2017-11-21] MEDS: Multivitamin With Minerals Tab PO SCH (09:23)
[2017-11-21] MEDS: Cholecalciferol 1,000 INTLU TAB PO SCH (09:24)
[2017-11-21] MEDS: Petrolatum UD PAK TOP SCH ×2 (09:24→16:35)
[2017-11-21] MEDS: Insulin Lispro (humaLOG) 100 Units/ml Inj SC SCH ×4 (09:25→21:54)
[2017-11-21 10:10] VITALS: BMI 32.8
--- NOTE | 2017-11-21 10:24 | CP.PCM.PN ---
Subjective - Date & Time of Evaluation Date of Evaluation: 11/21/17 Time of Evaluation: 10:19 - Subjective Subjective: Pt ia afebrile in no acute distress. HR is between 94-98. CBC is stable.She is stil very weak and needs physical rtherapy for ambulation. She was due for chemotherapy for next week. Will wait for Dr Suggs's orders to see when she can get it Objective - Vital Signs/Intake and Output Vital Signs (last 24 hours): Temp Pulse Resp BP Pulse Ox 97.6 F 99 H 19 138/91 H 98 11/21/17 08:15 11/21/17 09:25 11/21/17 08:15 11/21/17 09:25 11/21/17 08:15 - Medications Medications: Current Medications Acetaminophen (Tylenol 650 Mg Supp) 650 mg [place] Q6 PRN PRN Reason: Fever >100.4 F Last Admin: 11/14/17 00:35 Dose: 650 mg Allopurinol (Zyloprim) 100 mg PO DAILY [facility] Last Admin: 11/21/17 09:24 Dose: 100 mg Atorvastatin Calcium (Lipitor) 10 mg PO DAILY [facility] Last Admin: 11/21/17 09:25 Dose: 10 mg Cholecalciferol (Vitamin D) 1,000 intlu PO DAILY [facility] Last Admin: 11/21/17 09:24 Dose: 1,000 intlu Dimethicone (Proshield Plus Skin Protectant) 1 applic TOP Q8 PRN PRN Reason: Rash Last Admin: 11/21/17 09:23 Dose: 1 applic Docusate Sodium (Colace) 100 mg PO BID PRN PRN Reason: Constipation Emollient Ointment (Vaseline Oint) 1 pkt TOP BID [facility] Last Admin: 11/21/17 09:24 Dose: 1 pkt Epoetin [place]olo (Procrit) 40,000 unit SC ONCE [facility] Ceftaroline Fosamil 200 mg/ (Sodium Chloride) 100 mls @ 100 mls/hr IVPB Q12 [facility] PRN Reason: Protocol Last Admin: 11/21/17 09:23 Dose: 100 mls/hr Insulin Human Lispro (Humalog) 0 units SC ACHS [facility] PRN Reason: Protocol Last Admin: 11/21/17 09:25 Dose: 1 u Ipratropium [place] (Atrovent) 0.5 mg IH RQID [facility] Last Admin: 11/21/17 07:23 Dose: 0.5 mg Lactobacillus Acidophilus (Bacid Acidophilus) 1 cap PO BID [facility] Last Admin: 11/21/17 09:22 Dose: 1 cap Levalbuterol HCl (Xopenex) 0.63 mg INH RQ4 PRN PRN Reason: Shortness of Breath Last Admin: 11/20/17 11:52 Dose: 0.63 mg Levothyroxine Sodium (Synthroid) 50 mcg PO DAILY@0630 [facility] Last Admin: 11/21/17 06:59 Dose: 50 mcg Metoprolol Tartrate (Lopressor) 75 mg PO Q12 [facility] Last Admin: 11/21/17 09:25 Dose: 75 mg Metronidazole (Flagyl) 500 mg PO Q8 [facility] PRN Reason: Protocol Last Admin: 11/21/17 09:24 Dose: 500 mg Multivitamins/Minerals (Therapeutic-M Tab) 1 tab PO DAILY [facility] Last Admin: 11/21/17 09:23 Dose: 1 tab Ondansetron HCl (Zofran Inj) 4 mg IVP Q6 PRN PRN Reason: Nausea/Vomiting Last Admin: 11/13/17 17:15 Dose: 4 mg Saliva Substitute (First Magic Mouthwash) 15 ml PO QID [facility] Last Admin: 11/21/17 09:23 Dose: Not Given Sitagliptin Phosphate (Januvia) 100 mg PO DAILY [facility] Last Admin: 11/21/17 09:24 Dose: 100 mg - Labs Labs: 11/21/17 06:04 11/21/17 06:04
--- NOTE | 2017-11-21 11:32 | CP.PCM.PN ---
Subjective - Date & Time of Evaluation Date of Evaluation: 11/21/17 Time of Evaluation: 11:18 - Subjective Subjective: sitting up in the chair. Patient appeared to have so much fluid sitting in front of her on the table Objective - Vital Signs/Intake and Output Vital Signs (last 24 hours): Temp Pulse Resp BP Pulse Ox 97.6 F 99 H 19 138/91 H 98 11/21/17 08:15 11/21/17 09:25 11/21/17 08:15 11/21/17 09:25 11/21/17 08:15 - Medications Medications: Current Medications Acetaminophen (Tylenol 650 Mg Supp) 650 mg [place] Q6 PRN PRN Reason: Fever >100.4 F Last Admin: 11/14/17 00:35 Dose: 650 mg Allopurinol (Zyloprim) 100 mg PO DAILY [facility] Last Admin: 11/21/17 09:24 Dose: 100 mg Atorvastatin Calcium (Lipitor) 10 mg PO DAILY [facility] Last Admin: 11/21/17 09:25 Dose: 10 mg Cholecalciferol (Vitamin D) 1,000 intlu PO DAILY [facility] Last Admin: 11/21/17 09:24 Dose: 1,000 intlu Dimethicone (Proshield Plus Skin Protectant) 1 applic TOP Q8 PRN PRN Reason: Rash Last Admin: 11/21/17 09:23 Dose: 1 applic Docusate Sodium (Colace) 100 mg PO BID PRN PRN Reason: Constipation Emollient Ointment (Vaseline Oint) 1 pkt TOP BID [facility] Last Admin: 11/21/17 09:24 Dose: 1 pkt Epoetin Rolo (Procrit) 40,000 unit SC ONCE [facility] Ceftaroline Fosamil 200 mg/ (Sodium Chloride) 100 mls @ 100 mls/hr IVPB Q12 [facility] PRN Reason: Protocol Last Admin: 11/21/17 09:23 Dose: 100 mls/hr Insulin Human Lispro (Humalog) 0 units SC ACHS [facility] PRN Reason: Protocol Last Admin: 11/21/17 09:25 Dose: 1 u Ipratropium [place] (Atrovent) 0.5 mg IH RQID [facility] Last Admin: 11/21/17 07:23 Dose: 0.5 mg Lactobacillus Acidophilus (Bacid Acidophilus) 1 cap PO BID [facility] Last Admin: 11/21/17 09:22 Dose: 1 cap Levalbuterol HCl (Xopenex) 0.63 mg INH RQ4 PRN PRN Reason: Shortness of Breath Last Admin: 11/20/17 11:52 Dose: 0.63 mg Levothyroxine Sodium (Synthroid) 50 mcg PO DAILY@0630 [facility] Last Admin: 11/21/17 06:59 Dose: 50 mcg Metoprolol Tartrate (Lopressor) 75 mg PO Q12 [facility] Last Admin: 11/21/17 09:25 Dose: 75 mg Metronidazole (Flagyl) 500 mg PO Q8 [facility] PRN Reason: Protocol Last Admin: 11/21/17 09:24 Dose: 500 mg Multivitamins/Minerals (Therapeutic-M Tab) 1 tab PO DAILY [facility] Last Admin: 11/21/17 09:23 Dose: 1 tab Ondansetron HCl (Zofran Inj) 4 mg IVP Q6 PRN PRN Reason: Nausea/Vomiting Last Admin: 11/13/17 17:15 Dose: 4 mg Saliva Substitute (First Magic Mouthwash) 15 ml PO QID [facility] Last Admin: 11/21/17 09:23 Dose: Not Given Sitagliptin Phosphate (Januvia) 100 mg PO DAILY [facility] Last Admin: 11/21/17 09:24 Dose: 100 mg - Labs Labs: 11/21/17 06:04 11/21/17 06:04 - Constitutional Appears: No Acute Distress - Eye Exam Eye Exam: Conjunctival injection - ENT Exam ENT Exam: Mucous Membranes Moist - Neck Exam Neck Exam: Lymphadenopathy - Respiratory Exam Respiratory Exam: NORMAL BREATHING PATTERN. absent: Chest Wall Tenderness - Cardiovascular Exam Cardiovascular Exam: absent: Gallop, JVD, Rubs - GI/Abdominal Exam GI & Abdominal Exam: Soft, Normal Bowel Sounds - Extremities Exam Extremities Exam: absent: Calf Tenderness - Back Exam Back Exam: absent: CVA tenderness (L), CVA tenderness (R) - Neurological Exam Neurological Exam: Alert - Skin Skin Exam: absent: Cyanosis Assessment and Plan (1) Atrial fibrillation Status: Acute (2) Bronchopneumonia Status: Acute (3) MDS (myelodysplastic syndrome) Status: Acute (4) Neutropenia Status: Acute (5) B-cell lymphoma Status: Chronic (6) Anemia Status: Acute (7) Hyponatremia Assessment & Plan: hyponatremia appeared to be improving serum sodium 131 Apparently patient was not given Samsca yesterday Patient need fluid restriction around her thousand cc Status: Acute (8) Acute kidney injury Status: Acute
[2017-11-21] MEDS: Levalbuterol 0.63 MG/3 ML Inhal Soln UD INH PRN ×2 (12:07→19:12)
--- NOTE | 2017-11-21 14:33 | PQF ---
PROVIDER RESPONSE TEXT: CKD stage III REVIEWER QUERY TEXT: Kidney Disease, Chronic CKD Stage Chronic Kidney Disease (CKD) is documented in the Medical Record. Please specify the disease stage ( includes probable or suspected) if known Such as: -- Chronic kidney disease Stage 1 -- Chronic kidney disease Stage 2 -- Chronic kidney disease Stage 3 -- Chronic kidney disease Stage 4 -- Chronic kidney disease Stage 5 -- Chronic kidney disease Stage 5, requiring dialysis -- End Stage Renal Disease -- Other, please specify Stages are defined by the [employer] as follows: CKD Stage I GFR >= 90 ml / min per 1.73 m2 and persistent albuminuria CKD Stage 2 GFR between 60 and 89 with persistent albuminuria CKD Stage 3 GFR between 30 and 59 CKD Stage 4 GFR between 15 and 29 CKD Stage 5 GFR between <15 or End Stage Renal Disease The patient's Clinical Indicators include: BUN 20-> 17 Creatinine 1.1, 1.2, 1.3, 1.6, 1.7, 1.3 GFR:48, 44, 31, 29, 36, 40 Query created by: Ludivina Bower on 11/21/2017 2:01 PM Electronically signed by: Malu Berrios MD 11/21/2017 2:30 PM
--- NOTE | 2017-11-21 15:03 | CP.PCM.PN ---
Subjective - Date & Time of Evaluation Date of Evaluation: 11/21/17 Time of Evaluation: 11:45 - Subjective Subjective: Pt looks very weak Accdg to RN - pt just worked with Physical therapy earlier poor PO intake Pt states she just feels tired denies CP has slight wheeze + cough no abd pain Had small amount of soft stool this am No fever Objective - Vital Signs/Intake and Output Vital Signs (last 24 hours): Temp Pulse Resp BP Pulse Ox 97.6 F 99 H 19 138/81 98 11/21/17 10:00 11/21/17 10:00 11/21/17 10:00 11/21/17 10:00 11/21/17 10:00 - Medications Medications: Current Medications Acetaminophen (Tylenol 650 Mg Supp) 650 mg [place] Q6 PRN PRN Reason: Fever >100.4 F Last Admin: 11/14/17 00:35 Dose: 650 mg Allopurinol (Zyloprim) 100 mg PO DAILY [facility] Last Admin: 11/21/17 09:24 Dose: 100 mg Atorvastatin Calcium (Lipitor) 10 mg PO DAILY [facility] Last Admin: 11/21/17 09:25 Dose: 10 mg Cholecalciferol (Vitamin D) 1,000 intlu PO DAILY [facility] Last Admin: 11/21/17 09:24 Dose: 1,000 intlu Dimethicone (Proshield Plus Skin Protectant) 1 applic TOP Q8 PRN PRN Reason: Rash Last Admin: 11/21/17 09:23 Dose: 1 applic Docusate Sodium (Colace) 100 mg PO BID PRN PRN Reason: Constipation Emollient Ointment (Vaseline Oint) 1 pkt TOP BID [facility] Last Admin: 11/21/17 09:24 Dose: 1 pkt Epoetin Rolo (Procrit) 40,000 unit SC ONCE [facility] Ceftaroline Fosamil 200 mg/ (Sodium Chloride) 100 mls @ 100 mls/hr IVPB Q12 [facility] PRN Reason: Protocol Last Admin: 11/21/17 09:23 Dose: 100 mls/hr Insulin Human Lispro (Humalog) 0 units SC ACHS [facility] PRN Reason: Protocol Last Admin: 11/21/17 12:57 Dose: 2 u Ipratropium [place] (Atrovent) 0.5 mg IH RQID [facility] Last Admin: 08/07/18 12:07 Dose: 0.5 mg Lactobacillus Acidophilus (Bacid Acidophilus) 1 cap PO BID [facility] Last Admin: 11/21/17 09:22 Dose: 1 cap Levalbuterol HCl (Xopenex) 0.63 mg INH RQ4 PRN PRN Reason: Shortness of Breath Last Admin: 11/21/17 12:07 Dose: 0.63 mg Levothyroxine Sodium (Synthroid) 50 mcg PO DAILY@0630 [facility] Last Admin: 11/21/17 06:59 Dose: 50 mcg Metoprolol Tartrate (Lopressor) 75 mg PO Q12 [facility] Last Admin: 11/21/17 09:25 Dose: 75 mg Metronidazole (Flagyl) 500 mg PO Q8 [facility] PRN Reason: Protocol Last Admin: 11/21/17 09:24 Dose: 500 mg Multivitamins/Minerals (Therapeutic-M Tab) 1 tab PO DAILY [facility] Last Admin: 11/21/17 09:23 Dose: 1 tab Ondansetron HCl (Zofran Inj) 4 mg IVP Q6 PRN PRN Reason: Nausea/Vomiting Last Admin: 11/13/17 17:15 Dose: 4 mg Saliva Substitute (First Magic Mouthwash) 15 ml PO QID [facility] Last Admin: 11/21/17 12:57 Dose: Not Given Sitagliptin Phosphate (Januvia) 100 mg PO DAILY [facility] Last Admin: 11/21/17 09:24 Dose: 100 mg - Labs Labs: 11/21/17 06:04 11/21/17 06:04 - Constitutional Appears: Non-toxic, No Acute Distress, Chronically Ill - Head Exam Head Exam: NORMAL INSPECTION, NORMOCEPHALIC - Eye Exam Eye Exam: EOMI, Normal appearance Pupil Exam: NORMAL ACCOMODATION - ENT Exam ENT Exam: Mucous Membranes Moist, Normal External Ear Exam lip ulcers now dry - Neck Exam Neck Exam: Full ROM. absent: Meningismus - Respiratory Exam Respiratory Exam: Rales, Rhonchi, NORMAL BREATHING PATTERN. Respiratory Distress slight wheezing - Cardiovascular Exam Cardiovascular Exam: Irregular Rhythm, +S1, +S2 - GI/Abdominal Exam GI & Abdominal Exam: Soft, Normal Bowel Sounds. absent: Tenderness - Extremities Exam Extremities Exam: Pedal Edema. absent: Calf Tenderness LE skin dry - Back Exam Back Exam: absent: CVA tenderness (L), CVA tenderness (R) - Neurological Exam Neurological Exam: Alert, Awake, Oriented x3 - Psychiatric Exam Psychiatric exam: Flat Affect, Normal Mood - Skin Skin Exam: Dry, Pallor, Warm Assessment and Plan - Assessment and Plan (Free Text) Assessment: 77 yr old f with medical history including A fib, CAD (CABG triple bypass), COPD , hypercholesterolemia, hypothyroidism, HTN, DM type 2, CHF, MDS, B Cell lymphoma presented from Infusion center per Dr. Luz Nunes for WBC 0.6. Pt also presents with constant moderate dyspnea, associated with fatigue and weakness. CXR showed LLL infiltrate. EKG AFIB with rate 135, Lopressor given. Vancomycin and Zosyn also initiated. 1. Sepsis 2/2 LLL Pneumonia likely bacterial in a Neutropenic pt Dr Suggs consulted - discussed case- rec to cont Teflaro however change to renal dose, d/c Vancomycin and Bactrim due to abn renl fx and d/c Clindamycin IV Dr. Vazquez pulmonology consult following pt closely pt still with cough, rpt CXR better afebrile 2. B-cell lymphoma Status: Acute Chemotherapy over two day duration completed a few days ago Dr. Nunes will continue to follow. 3. MDS (myelodysplastic syndrome) Status: Acute Chemotherapy, Dr. Nunes will continue to follow. 4. Pancytopenia sec to Chemotherapy Status: Acute improving WBC ct now high- reverse isolation d/c Pt received Granix so WBC now elevated Dr. Nunes will continue to follow Transfused 2 units PRBC 11/15 5. Chronic a-fib Continue current management - increased Metoprolol 75mg po BID. Xarelto discontinued due to thrombocytopenia 6. COPD chronic cont Atrovent and Xopenex pt has sl wheeze 7. Hyponatremia, improved Status: Acute Dr Allen consulted received Tolvaptan 8.Hypokalemia Replete PRN 9.Hypothyroid Continue home medication: Levothyroxine 50mcg daily. 10. CKD stage III adjust med dose renally Nephrology consult- Dr Allen 11. Physical Deconditioning PT/OT consulted- plan to d/c pt to TCU once she is more stable 12. Aphthous Ulcers , mouth sec to chemotherapy started Magic mouthwash 13. C diff Colitis - started pt on PO Flagyl DVT prophylaxis Status: Acute Comment: Patient was on xarelto, d/c 2/2 thrombocytopenia, no anticoag
--- NOTE | 2017-11-21 16:35 | CP.PCM.PN ---
Subjective - Date & Time of Evaluation Date of Evaluation: 11/21/17 Time of Evaluation: 16:35 - Subjective Subjective: I D NOTE AFEBRILE FATIGUED ,NOT EATING WELL ,EVEN NON HOSPITAL FOOD LABS HAVE IMPROVED NEEDS PHYSIORx continue iv teflaro Objective - Vital Signs/Intake and Output Vital Signs (last 24 hours): Temp Pulse Resp BP Pulse Ox 97.4 F L 85 20 144/88 100 11/21/17 16:13 11/21/17 16:13 11/21/17 16:13 11/21/17 16:13 11/21/17 16:13 - Medications Medications: Current Medications Acetaminophen (Tylenol 650 Mg Supp) 650 mg [place] Q6 PRN PRN Reason: Fever >100.4 F Last Admin: 11/14/17 00:35 Dose: 650 mg Allopurinol (Zyloprim) 100 mg PO DAILY [facility] Last Admin: 11/21/17 09:24 Dose: 100 mg Atorvastatin Calcium (Lipitor) 10 mg PO DAILY [facility] Last Admin: 11/21/17 09:25 Dose: 10 mg Cholecalciferol (Vitamin D) 1,000 intlu PO DAILY [facility] Last Admin: 11/21/17 09:24 Dose: 1,000 intlu Dimethicone (Proshield Plus Skin Protectant) 1 applic TOP Q8 PRN PRN Reason: Rash Last Admin: 11/21/17 09:23 Dose: 1 applic Docusate Sodium (Colace) 100 mg PO BID PRN PRN Reason: Constipation Emollient Ointment (Vaseline Oint) 1 pkt TOP BID [facility] Last Admin: 11/21/17 09:24 Dose: 1 pkt Epoetin Rolo (Procrit) 40,000 unit SC ONCE [facility] Ceftaroline Fosamil 200 mg/ (Sodium Chloride) 100 mls @ 100 mls/hr IVPB Q12 [facility] PRN Reason: Protocol Last Admin: 11/21/17 09:23 Dose: 100 mls/hr Insulin Human Lispro (Humalog) 0 units SC ACHS [facility] PRN Reason: Protocol Last Admin: 11/21/17 12:57 Dose: 2 u Ipratropium [place] (Atrovent) 0.5 mg IH RQID [facility] Last Admin: 11/21/17 15:44 Dose: 0.5 mg Lactobacillus Acidophilus (Bacid Acidophilus) 1 cap PO BID [facility] Last Admin: 11/21/17 09:22 Dose: 1 cap Levalbuterol HCl (Xopenex) 0.63 mg INH RQ4 PRN PRN Reason: Shortness of Breath Last Admin: 11/21/17 12:07 Dose: 0.63 mg Levothyroxine Sodium (Synthroid) 50 mcg PO DAILY@0630 [facility] Last Admin: 11/21/17 06:59 Dose: 50 mcg Metoprolol Tartrate (Lopressor) 75 mg PO Q12 [facility] Last Admin: 11/21/17 09:25 Dose: 75 mg Metronidazole (Flagyl) 500 mg PO Q8 [facility] PRN Reason: Protocol Last Admin: 11/21/17 09:24 Dose: 500 mg Multivitamins/Minerals (Therapeutic-M Tab) 1 tab PO DAILY [facility] Last Admin: 11/21/17 09:23 Dose: 1 tab Ondansetron HCl (Zofran Inj) 4 mg IVP Q6 PRN PRN Reason: Nausea/Vomiting Last Admin: 11/13/17 17:15 Dose: 4 mg Sitagliptin Phosphate (Januvia) 100 mg PO DAILY [facility] Last Admin: 11/21/17 09:24 Dose: 100 mg - Labs Labs: 11/21/17 06:04 11/21/17 06:04
--- NOTE | 2017-11-21 20:56 | CP.PCM.PN ---
Subjective - Date & Time of Evaluation Date of Evaluation: 11/21/17 Time of Evaluation: 20:51 - Subjective Subjective: Seen on rounds in the morning. Patient examined with the resident and the case was discussed. She is OOB in the chair, awake, but complains of fatigue. Her appetite has been poor, but her breathing is not labored. Dependant edema of the lower extremities has been increasing since she is OOB more. No central or peripheral cyanosis is noted. Breath sounds are diminished bilaterally with few scattered rhonchi. No wheezes. Case discussed with Heme/Onc as well. Will continue present regimen. Objective - Vital Signs/Intake and Output Vital Signs (last 24 hours): Temp Pulse Resp BP Pulse Ox 97.4 F L 85 20 144/88 100 11/21/17 16:13 11/21/17 16:13 11/21/17 16:13 11/21/17 16:13 11/21/17 16:13 - Medications Medications: Current Medications Acetaminophen (Tylenol 650 Mg Supp) 650 mg [place] Q6 PRN PRN Reason: Fever >100.4 F Last Admin: 11/14/17 00:35 Dose: 650 mg Allopurinol (Zyloprim) 100 mg PO DAILY [facility] Last Admin: 11/21/17 09:24 Dose: 100 mg Atorvastatin Calcium (Lipitor) 10 mg PO DAILY [facility] Last Admin: 11/21/17 09:25 Dose: 10 mg Cholecalciferol (Vitamin D) 1,000 intlu PO DAILY [facility] Last Admin: 11/21/17 09:24 Dose: 1,000 intlu Dimethicone (Proshield Plus Skin Protectant) 1 applic TOP Q8 PRN PRN Reason: Rash Last Admin: 11/21/17 09:23 Dose: 1 applic Docusate Sodium (Colace) 100 mg PO BID PRN PRN Reason: Constipation Emollient Ointment (Vaseline Oint) 1 pkt TOP BID [facility] Last Admin: 11/21/17 16:35 Dose: 1 pkt Epoetin Rolo (Procrit) 40,000 unit SC ONCE [facility] Ceftaroline Fosamil 200 mg/ (Sodium Chloride) 100 mls @ 100 mls/hr IVPB Q12 [facility] PRN Reason: Protocol Last Admin: 11/21/17 09:23 Dose: 100 mls/hr Insulin Human Lispro (Humalog) 0 units SC ACHS [facility] PRN Reason: Protocol Last Admin: 11/21/17 16:35 Dose: 1 u Ipratropium [place] (Atrovent) 0.5 mg IH RQID [facility] Last Admin: 11/21/17 19:10 Dose: 0.5 mg Lactobacillus Acidophilus (Bacid Acidophilus) 1 cap PO BID [facility] Last Admin: 11/21/17 16:35 Dose: 1 cap Levalbuterol HCl (Xopenex) 0.63 mg INH RQ4 PRN PRN Reason: Shortness of Breath Last Admin: 11/21/17 19:12 Dose: 0.63 mg Levothyroxine Sodium (Synthroid) 50 mcg PO DAILY@0630 [facility] Last Admin: 11/21/17 06:59 Dose: 50 mcg Metoprolol Tartrate (Lopressor) 75 mg PO Q12 [facility] Last Admin: 11/21/17 09:25 Dose: 75 mg Metronidazole (Flagyl) 500 mg PO Q8 [facility] PRN Reason: Protocol Last Admin: 11/21/17 16:34 Dose: 500 mg Multivitamins/Minerals (Therapeutic-M Tab) 1 tab PO DAILY [facility] Last Admin: 11/21/17 09:23 Dose: 1 tab Ondansetron HCl (Zofran Inj) 4 mg IVP Q6 PRN PRN Reason: Nausea/Vomiting Last Admin: 11/13/17 17:15 Dose: 4 mg Sitagliptin Phosphate (Januvia) 100 mg PO DAILY [facility] Last Admin: 11/21/17 09:24 Dose: 100 mg - Labs Labs: 11/21/17 06:04 11/21/17 06:04 Assessment and Plan (1) Pneumonia Status: Acute (2) Pancytopenia Status: Acute (3) B-cell lymphoma Status: Chronic (4) COPD (chronic obstructive pulmonary disease) Status: Chronic
[2017-11-22] MEDS: Levothyroxine 50 MCG TAB PO SCH (05:53)
[2017-11-22 06:29] LABS: HEMOGLOBIN 9.8 g/dL (12.0-16.0); MEAN CELL VOLUME 83.1 fl (81.0-99.0); MEAN CORPUSCULAR HEMOGLOBIN 26.8 pg (27.0-31.0); MEAN CORPUSCULAR HGB CONC 32.2 g/dL (33.0-37.0); RBC 3.67 Mil/uL (3.80-5.20); RED CELL DISTRIBUTION WIDTH 19.3 % (11.5-14.5); WHITE BLOOD COUNT 22.4 K/uL (4.8-10.8)
[2017-11-22 06:36] LABS: ALB/GLOB RATIO 1.5 (1.0-2.1); ALBUMIN 2.8 g/dL (3.5-5.0); CALCIUM 8.9 mg/dL (8.4-10.2)
[2017-11-22] MEDS: Ipratropium 0.02% Inhal Soln (0.5 mg/2.5 ml) UD IH SCH ×4 (07:35→20:22)
[2017-11-22] MEDS: Lactobacillus Acidophilus 500 MU Cap PO SCH ×2 (09:21→17:50)
[2017-11-22] MEDS: Insulin Lispro (humaLOG) 100 Units/ml Inj SC SCH ×4 (09:22→21:53)
[2017-11-22] MEDS: Multivitamin With Minerals Tab PO SCH (09:23)
[2017-11-22] MEDS: Proshield Plus GEL TOP PRN ×2 (09:25→17:49)
[2017-11-22] MEDS: Cholecalciferol 1,000 INTLU TAB PO SCH (09:25)
[2017-11-22] MEDS: Petrolatum UD PAK TOP SCH ×2 (09:25→17:49)
--- NOTE | 2017-11-22 09:28 | CP.PCM.PN ---
Subjective - Date & Time of Evaluation Date of Evaluation: 11/22/17 Time of Evaluation: 09:00 - Subjective Subjective: Clinically unchanged (reports pedal oedema upon sitting OOB) Still C/O utter exhaustion A Fib at 90-100 BPM BP 124/74 mm Hg JVP flat, no rales No gallop Mild pedal oedema (with wrinkling of skin!) Labs show marked hypoalbuminimia (due to malnutrition) now improving CBC noted Discussed with Dr. Vazquez, Pt should go to TCU Objective - Vital Signs/Intake and Output Vital Signs (last 24 hours): Temp Pulse Resp BP Pulse Ox 97.4 F L 98 H 18 141/79 96 11/22/17 08:04 11/22/17 08:04 11/22/17 08:04 11/22/17 08:04 11/22/17 08:04 - Medications Medications: Current Medications Acetaminophen (Tylenol 650 Mg Supp) 650 mg [place] Q6 PRN PRN Reason: Fever >100.4 F Last Admin: 11/14/17 00:35 Dose: 650 mg Allopurinol (Zyloprim) 100 mg PO DAILY [facility] Last Admin: 11/21/17 09:24 Dose: 100 mg Atorvastatin Calcium (Lipitor) 10 mg PO DAILY [facility] Last Admin: 11/21/17 09:25 Dose: 10 mg Cholecalciferol (Vitamin D) 1,000 intlu PO DAILY [facility] Last Admin: 11/21/17 09:24 Dose: 1,000 intlu Dimethicone (Proshield Plus Skin Protectant) 1 applic TOP Q8 PRN PRN Reason: Rash Last Admin: 11/21/17 09:23 Dose: 1 applic Docusate Sodium (Colace) 100 mg PO BID PRN PRN Reason: Constipation Emollient Ointment (Vaseline Oint) 1 pkt TOP BID [facility] Last Admin: 11/21/17 16:35 Dose: 1 pkt Epoetin Rolo (Procrit) 40,000 unit SC ONCE [facility] Ceftaroline Fosamil 200 mg/ (Sodium Chloride) 100 mls @ 100 mls/hr IVPB Q12 [facility] PRN Reason: Protocol Last Admin: 11/21/17 21:44 Dose: 100 mls/hr Insulin Human Lispro (Humalog) 0 units SC ACHS [facility] PRN Reason: Protocol Last Admin: 11/21/17 21:54 Dose: Not Given Ipratropium [place] (Atrovent) 0.5 mg IH RQID [facility] Last Admin: 11/22/17 07:35 Dose: 0.5 mg Lactobacillus Acidophilus (Bacid Acidophilus) 1 cap PO BID [facility] Last Admin: 11/21/17 16:35 Dose: 1 cap Levalbuterol HCl (Xopenex) 0.63 mg INH RQ4 PRN PRN Reason: Shortness of Breath Last Admin: 11/21/17 19:12 Dose: 0.63 mg Levothyroxine Sodium (Synthroid) 50 mcg PO DAILY@0630 [facility] Last Admin: 11/22/17 05:53 Dose: 50 mcg Metoprolol Tartrate (Lopressor) 75 mg PO Q12 [facility] Last Admin: 11/21/17 21:44 Dose: 75 mg Metronidazole (Flagyl) 500 mg PO Q8 [facility] PRN Reason: Protocol Last Admin: 11/22/17 01:11 Dose: 500 mg Multivitamins/Minerals (Therapeutic-M Tab) 1 tab PO DAILY [facility] Last Admin: 11/21/17 09:23 Dose: 1 tab Ondansetron HCl (Zofran Inj) 4 mg IVP Q6 PRN PRN Reason: Nausea/Vomiting Last Admin: 11/13/17 17:15 Dose: 4 mg Sitagliptin Phosphate (Januvia) 100 mg PO DAILY [facility] Last Admin: 11/21/17 09:24 Dose: 100 mg - Labs Labs: 11/22/17 05:20 11/22/17 05:20
[2017-11-22] MEDS ORDERED: Epoetin Alfa 40000 UNIT/ml Inj SC SCH (11:00)
[2017-11-22] MEDS ORDERED: Tolvaptan 15 MG TAB PO ONE (11:30)
--- NOTE | 2017-11-22 12:04 | CP.PCM.PN ---
Subjective - Date & Time of Evaluation Date of Evaluation: 11/22/17 Time of Evaluation: 09:00 - Subjective Subjective: Patient seen and examined with the resident during morning rounds. She is OOB in the chair, awake and fatigued Her appetite has been poor, drinking juices and fluids but reduced solid food intake. Denies any SOB at rest, but reports getting SOB with ambulation. Cough with yellowish sputum. Vitalsstable, HR 78, O2 sat 87% on nasal cannula. Dependant edema of the lower extremities. No central or peripheral cyanosis is noted. Breath sounds are diminished bilaterally with low pitched expiratory wheezing. No rales. Labs reviewed, Hypoalbuminemia discussed with Dr. Nunes. Will continue present regimen. Objective - Vital Signs/Intake and Output Vital Signs (last 24 hours): Temp Pulse Resp BP Pulse Ox 97.4 F L 98 H 18 141/79 96 11/22/17 08:04 11/22/17 08:04 11/22/17 08:04 11/22/17 08:04 11/22/17 08:04 - Medications Medications: Current Medications Acetaminophen (Tylenol 650 Mg Supp) 650 mg [place] Q6 PRN PRN Reason: Fever >100.4 F Last Admin: 11/14/17 00:35 Dose: 650 mg Allopurinol (Zyloprim) 100 mg PO DAILY [facility] Last Admin: 11/22/17 09:26 Dose: 100 mg Atorvastatin Calcium (Lipitor) 10 mg PO DAILY [facility] Last Admin: 11/22/17 09:23 Dose: 10 mg Cholecalciferol (Vitamin D) 1,000 intlu PO DAILY [facility] Last Admin: 11/22/17 09:25 Dose: 1,000 intlu Dimethicone (Proshield Plus Skin Protectant) 1 applic TOP Q8 PRN PRN Reason: Rash Last Admin: 11/22/17 09:25 Dose: 1 applic Docusate Sodium (Colace) 100 mg PO BID PRN PRN Reason: Constipation Emollient Ointment (Vaseline Oint) 1 pkt TOP BID [facility] Last Admin: 11/22/17 09:25 Dose: 1 pkt Epoetin Rolo (Procrit) 40,000 unit SC WED [facility] Ceftaroline Fosamil 200 mg/ (Sodium Chloride) 100 mls @ 100 mls/hr IVPB Q12 [facility] PRN Reason: Protocol Last Admin: 11/22/17 09:27 Dose: 100 mls/hr Insulin Human Lispro (Humalog) 0 units SC ACHS [facility] PRN Reason: Protocol Last Admin: 11/22/17 09:22 Dose: 1 units Ipratropium [place] (Atrovent) 0.5 mg IH RQID [facility] Last Admin: 11/22/17 11:12 Dose: 0.5 mg Lactobacillus Acidophilus (Bacid Acidophilus) 1 cap PO BID [facility] Last Admin: 11/22/17 09:21 Dose: 1 cap Levalbuterol HCl (Xopenex) 0.63 mg INH RQ4 PRN PRN Reason: Shortness of Breath Last Admin: 11/21/17 19:12 Dose: 0.63 mg Levothyroxine Sodium (Synthroid) 50 mcg PO DAILY@0630 [facility] Last Admin: 11/22/17 05:53 Dose: 50 mcg Metoprolol Tartrate (Lopressor) 75 mg PO Q12 [facility] Last Admin: 11/22/17 09:24 Dose: 75 mg Metronidazole (Flagyl) 500 mg PO Q8 [facility] PRN Reason: Protocol Last Admin: 11/22/17 09:22 Dose: 500 mg Multivitamins/Minerals (Therapeutic-M Tab) 1 tab PO DAILY [facility] Last Admin: 11/22/17 09:23 Dose: 1 tab Ondansetron HCl (Zofran Inj) 4 mg IVP Q6 PRN PRN Reason: Nausea/Vomiting Last Admin: 11/13/17 17:15 Dose: 4 mg Sitagliptin Phosphate (Januvia) 100 mg PO DAILY [facility] Last Admin: 11/22/17 09:23 Dose: 100 mg - Labs Labs: 11/22/17 05:20 11/22/17 05:20
--- NOTE | 2017-11-22 12:31 | CP.PCM.PN ---
Subjective - Date & Time of Evaluation Date of Evaluation: 11/22/17 Time of Evaluation: 12:30 - Subjective Subjective: patient is awake sitting up no nausea no vomiting Objective - Vital Signs/Intake and Output Vital Signs (last 24 hours): Temp Pulse Resp BP Pulse Ox 97.4 F L 98 H 18 141/79 96 11/22/17 08:04 11/22/17 08:04 11/22/17 08:04 11/22/17 08:04 11/22/17 08:04 - Medications Medications: Current Medications Acetaminophen (Tylenol 650 Mg Supp) 650 mg [place] Q6 PRN PRN Reason: Fever >100.4 F Last Admin: 11/14/17 00:35 Dose: 650 mg Allopurinol (Zyloprim) 100 mg PO DAILY [facility] Last Admin: 11/22/17 09:26 Dose: 100 mg Atorvastatin Calcium (Lipitor) 10 mg PO DAILY [facility] Last Admin: 11/22/17 09:23 Dose: 10 mg Cholecalciferol (Vitamin D) 1,000 intlu PO DAILY [facility] Last Admin: 11/22/17 09:25 Dose: 1,000 intlu Dimethicone (Proshield Plus Skin Protectant) 1 applic TOP Q8 PRN PRN Reason: Rash Last Admin: 11/22/17 09:25 Dose: 1 applic Docusate Sodium (Colace) 100 mg PO BID PRN PRN Reason: Constipation Emollient Ointment (Vaseline Oint) 1 pkt TOP BID [facility] Last Admin: 11/22/17 09:25 Dose: 1 pkt Epoetin Rolo (Procrit) 40,000 unit SC WED [facility] Ceftaroline Fosamil 200 mg/ (Sodium Chloride) 100 mls @ 100 mls/hr IVPB Q12 [facility] PRN Reason: Protocol Last Admin: 11/22/17 09:27 Dose: 100 mls/hr Insulin Human Lispro (Humalog) 0 units SC ACHS [facility] PRN Reason: Protocol Last Admin: 11/22/17 12:24 Dose: 2 units Ipratropium [place] (Atrovent) 0.5 mg IH RQID [facility] Last Admin: 11/22/17 11:12 Dose: 0.5 mg Lactobacillus Acidophilus (Bacid Acidophilus) 1 cap PO BID [facility] Last Admin: 11/22/17 09:21 Dose: 1 cap Levalbuterol HCl (Xopenex) 0.63 mg INH RQ4 PRN PRN Reason: Shortness of Breath Last Admin: 11/21/17 19:12 Dose: 0.63 mg Levothyroxine Sodium (Synthroid) 50 mcg PO DAILY@0630 [facility] Last Admin: 11/22/17 05:53 Dose: 50 mcg Metoprolol Tartrate (Lopressor) 75 mg PO Q12 [facility] Last Admin: 11/22/17 09:24 Dose: 75 mg Metronidazole (Flagyl) 500 mg PO Q8 [facility] PRN Reason: Protocol Last Admin: 11/22/17 09:22 Dose: 500 mg Multivitamins/Minerals (Therapeutic-M Tab) 1 tab PO DAILY [facility] Last Admin: 11/22/17 09:23 Dose: 1 tab Ondansetron HCl (Zofran Inj) 4 mg IVP Q6 PRN PRN Reason: Nausea/Vomiting Last Admin: 11/13/17 17:15 Dose: 4 mg Sitagliptin Phosphate (Januvia) 100 mg PO DAILY [facility] Last Admin: 11/22/17 09:23 Dose: 100 mg - Labs Labs: 11/22/17 05:20 11/22/17 05:20 - Constitutional Appears: No Acute Distress - ENT Exam ENT Exam: Mucous Membranes Moist - Respiratory Exam Respiratory Exam: NORMAL BREATHING PATTERN. absent: Chest Wall Tenderness - Cardiovascular Exam Cardiovascular Exam: absent: Gallop, JVD, Rubs - GI/Abdominal Exam GI & Abdominal Exam: Soft - Extremities Exam Extremities Exam: absent: Calf Tenderness - Back Exam Back Exam: absent: CVA tenderness (L), CVA tenderness (R) - Neurological Exam Neurological Exam: Alert - Psychiatric Exam Psychiatric exam: Normal Affect - Skin Skin Exam: absent: Cyanosis Assessment and Plan (1) Atrial fibrillation Status: Acute (2) Bronchopneumonia Status: Acute (3) MDS (myelodysplastic syndrome) Status: Acute (4) Neutropenia Status: Acute (5) B-cell lymphoma Status: Chronic (6) Anemia Status: Acute (7) Hyponatremia Assessment & Plan: hyponatremia hypervolemia serum sodium coming down to 129 again We will give Samsca 15 mg stat dose now monitor serum sodium not to go up more than about 10 mEq in the next 24 hours the rest of the medical problem as noted previously medical history including A fib, CAD (CABG triple bypass), COPD, hypercholesterolemia, hypothyroidism, HTN, DM type 2, CHF, 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 (8) Acute kidney injury Status: Acute
--- NOTE | 2017-11-22 15:23 | RAD ---
Date of service: 11/22/2017 HISTORY: Follow-up pneumonia. COMPARISON: Comparison made with prior study 11/18/2017 FINDINGS: No change right-sided IJ MediPort LUNGS: Previously suspected pulmonary vascular congestive changes improved. Persistent mild bilateral lower lobe opacities may represent infiltrates and/or atelectasis. Bilateral effusions are present PLEURA: As above. No pneumothorax apparent. CARDIOVASCULAR: Cardiomegaly. Sternotomy wires also again noted OSSEOUS STRUCTURES: No significant abnormalities. VISUALIZED UPPER ABDOMEN: Normal. OTHER FINDINGS: None. IMPRESSION: Previously suspected pulmonary vascular congestive changes improved. Persistent mild bilateral lower lobe opacities may represent infiltrates and/or atelectasis. Bilateral effusions are present
--- NOTE | 2017-11-22 16:37 | CP.PCM.PN ---
Subjective - Date & Time of Evaluation Date of Evaluation: 11/22/17 Time of Evaluation: 13:00 - Subjective Subjective: No fever feels sl better compared to yesterday however still very weak still with cough no CP no SOB No abd pain Diarrhea improved after Flagyl Objective - Vital Signs/Intake and Output Vital Signs (last 24 hours): Temp Pulse Resp BP Pulse Ox 97.9 F 73 20 127/82 95 11/22/17 16:34 11/22/17 16:34 11/22/17 16:34 11/22/17 16:34 11/22/17 16:34 - Medications Medications: Current Medications Acetaminophen (Tylenol 650 Mg Supp) 650 mg [place] Q6 PRN PRN Reason: Fever >100.4 F Last Admin: 11/14/17 00:35 Dose: 650 mg Allopurinol (Zyloprim) 100 mg PO DAILY [facility] Last Admin: 11/22/17 09:26 Dose: 100 mg Atorvastatin Calcium (Lipitor) 10 mg PO DAILY [facility] Last Admin: 11/22/17 09:23 Dose: 10 mg Cholecalciferol (Vitamin D) 1,000 intlu PO DAILY [facility] Last Admin: 11/22/17 09:25 Dose: 1,000 intlu Dimethicone (Proshield Plus Skin Protectant) 1 applic TOP Q8 PRN PRN Reason: Rash Last Admin: 11/22/17 09:25 Dose: 1 applic Docusate Sodium (Colace) 100 mg PO BID PRN PRN Reason: Constipation Emollient Ointment (Vaseline Oint) 1 pkt TOP BID [facility] Last Admin: 11/22/17 09:25 Dose: 1 pkt Epoetin Rolo (Procrit) 40,000 unit SC WED [facility] Last Admin: 11/22/17 12:27 Dose: 40,000 unit Ceftaroline Fosamil 200 mg/ (Sodium Chloride) 100 mls @ 100 mls/hr IVPB Q12 [facility] PRN Reason: Protocol Last Admin: 11/22/17 09:27 Dose: 100 mls/hr Insulin Human Lispro (Humalog) 0 units SC ACHS [facility] PRN Reason: Protocol Last Admin: 11/22/17 12:24 Dose: 2 units Ipratropium [place] (Atrovent) 0.5 mg IH RQID [facility] Last Admin: 11/22/17 11:12 Dose: 0.5 mg Lactobacillus Acidophilus (Bacid Acidophilus) 1 cap PO BID [facility] Last Admin: 11/22/17 09:21 Dose: 1 cap Levalbuterol HCl (Xopenex) 0.63 mg INH RQ4 PRN PRN Reason: Shortness of Breath Last Admin: 11/21/17 19:12 Dose: 0.63 mg Levothyroxine Sodium (Synthroid) 50 mcg PO DAILY@0630 [facility] Last Admin: 11/22/17 05:53 Dose: 50 mcg Metoprolol Tartrate (Lopressor) 75 mg PO Q12 [facility] Last Admin: 11/22/17 09:24 Dose: 75 mg Metronidazole (Flagyl) 500 mg PO Q8 [facility] PRN Reason: Protocol Last Admin: 11/22/17 09:22 Dose: 500 mg Multivitamins/Minerals (Therapeutic-M Tab) 1 tab PO DAILY [facility] Last Admin: 11/22/17 09:23 Dose: 1 tab Ondansetron HCl (Zofran Inj) 4 mg IVP Q6 PRN PRN Reason: Nausea/Vomiting Last Admin: 11/13/17 17:15 Dose: 4 mg Sitagliptin Phosphate (Januvia) 100 mg PO DAILY [facility] Last Admin: 11/22/17 09:23 Dose: 100 mg - Labs Labs: 11/22/17 05:20 11/22/17 05:20 - Constitutional Appears: Non-toxic, No Acute Distress, Chronically Ill - Head Exam Head Exam: NORMAL INSPECTION, NORMOCEPHALIC - Eye Exam Eye Exam: EOMI, Normal appearance Pupil Exam: NORMAL ACCOMMODATION - ENT Exam ENT Exam: Mucous Membranes Moist, Normal External Ear Exam lip ulcers now dry - Neck Exam Neck Exam: Full ROM. absent: Meningismus - Respiratory Exam Respiratory Exam: Rales, Rhonchi, NORMAL BREATHING PATTERN. Respiratory Distress slight wheezing - Cardiovascular Exam Cardiovascular Exam: Irregular Rhythm, +S1, +S2 - GI/Abdominal Exam GI & Abdominal Exam: Soft, Normal Bowel Sounds. absent: Tenderness - Extremities Exam Extremities Exam: Pedal Edema. absent: Calf Tenderness LE skin dry - Back Exam Back Exam: absent: CVA tenderness (L), CVA tenderness (R) - Neurological Exam Neurological Exam: Alert, Awake, Oriented x3 - Psychiatric Exam Psychiatric exam: Flat Affect, Normal Mood - Skin Skin Exam: Dry, Pallor, Warm Assessment and Plan - Assessment and Plan (Free Text) Assessment: 77 yr old female with medical history including A fib, CAD (CABG triple bypass) , COPD, hypercholesterolemia, hypothyroidism, HTN, DM type 2, CHF, MDS, B Cell lymphoma presented from Infusion center per Dr. Luz Nunes for WBC 0.6. Pt also presents with constant moderate dyspnea, associated with fatigue and weakness. CXR showed LLL infiltrate. EKG AFIB with rate 135, Lopressor given. IV antibiotics started. 1. Sepsis 2/2 LLL Pneumonia likely bacterial in a Neutropenic pt Dr Suggs consulted - discussed case- rec to cont Teflaro however change to renal dose, d/c Vancomycin and Bactrim due to abn renal fx and d/c Clindamycin IV -( Pt not to be given IV Vanco due to adverse rxn to kidneys) Dr. Vazquez pulmonology consult following pt closely pt still with cough however afebrile Rpt CXR Plan to d/c pt to TCU in am to continue IV antibiotics and for Physical therapy in am if CXR better and pt clinically better 2. B-cell lymphoma Status: Acute Chemotherapy over two day duration completed a few days ago Dr. Nunes will continue to follow. 3. MDS (myelodysplastic syndrome) Status: Acute Chemotherapy, Dr. Nunes will continue to follow. 4. Pancytopenia sec to Chemotherapy Status: Acute improving WBC ct now high- reverse isolation d/c Pt received Granix so WBC now elevated Dr. Nunes will continue to follow Transfused 2 units PRBC 11/15 5. Chronic a-fib Continue current management - increased Metoprolol 75mg po BID. Xarelto discontinued due to thrombocytopenia 6. COPD chronic cont Atrovent and Xopenex pt has sl wheeze 7. Hyponatremia, improving Status: Acute Dr Allen consulted received Tolvaptan- will be given another dose today accdg to Dr Allen 8.Hypokalemia Replete PRN 9.Hypothyroid Continue home medication: Levothyroxine 50mcg daily. 10. CKD stage III adjust med dose renally Nephrology consult- Dr Allen 11. Physical Deconditioning PT/OT consulted- plan to d/c pt to TCU once she is more stable 12. Aphthous Ulcers , mouth sec to chemotherapy started Magic mouthwash 13. C diff Colitis - started pt on PO Flagyl DVT prophylaxis Status: Acute Comment: Patient was on Xarelto, d/c 2/2 thrombocytopenia, no anticoag
[2017-11-22 22:05] LABS: CALCIUM 8.7 mg/dL (8.4-10.2)
[2017-11-23 06:30] LABS: BASO # 0.2 K/uL (0.0-0.2); BASO % 1.1 % (0.0-2.0); EOS % 0.3 % (0.0-4.0); HEMOGLOBIN 9.6 g/dL (12.0-16.0); LYMPH # 0.5 K/uL (1.0-4.3); MEAN CELL VOLUME 82.9 fl (81.0-99.0); MEAN CORPUSCULAR HEMOGLOBIN 27.4 pg (27.0-31.0); MEAN PLATELET VOLUME 9.8 fl (7.2-11.7); MONO # 0.7 K/uL (0.0-0.8); MONO % 4.2 % (0.0-10.0); NEUT # 15.3 K/uL (1.8-7.0); NEUT % 91.4 % (50.0-75.0); NRBC % 0.1 % (0.0-0.0); PLATELET COUNT 92 K/uL (130-400); RBC 3.49 Mil/uL (3.80-5.20); RED CELL DISTRIBUTION WIDTH 19.3 % (11.5-14.5); WHITE BLOOD COUNT 16.8 K/uL (4.8-10.8)
[2017-11-23] MEDS: Insulin Lispro (humaLOG) 100 Units/ml Inj SC SCH ×4 (06:33→21:52)
[2017-11-23] MEDS: Levothyroxine 50 MCG TAB PO SCH (06:33)
[2017-11-23 06:45] LABS: OSMOLALITY,URINE 517 mosm/kg (300-1000)
[2017-11-23 06:59] LABS: ALB/GLOB RATIO 1.5 (1.0-2.1); ALBUMIN 2.6 g/dL (3.5-5.0); CALCIUM 8.9 mg/dL (8.4-10.2)
[2017-11-23] MEDS: Ipratropium 0.02% Inhal Soln (0.5 mg/2.5 ml) UD IH SCH ×4 (07:33→19:03)
--- NOTE | 2017-11-23 09:09 | CP.PCM.PN ---
Subjective - Date & Time of Evaluation Date of Evaluation: 11/23/17 Time of Evaluation: 09:08 - Subjective Subjective: patient M bed no significant changes reported She appeared to be chronically debilitated Objective - Vital Signs/Intake and Output Vital Signs (last 24 hours): Temp Pulse Resp BP Pulse Ox 97.7 F 97 H 19 129/75 95 11/23/17 01:00 11/23/17 01:00 11/23/17 01:00 11/23/17 01:00 11/23/17 01:00 - Medications Medications: Current Medications Acetaminophen (Tylenol 650 Mg Supp) 650 mg [place] Q6 PRN PRN Reason: Fever >100.4 F Last Admin: 11/14/17 00:35 Dose: 650 mg Allopurinol (Zyloprim) 100 mg PO DAILY [facility] Last Admin: 11/22/17 09:26 Dose: 100 mg Atorvastatin Calcium (Lipitor) 10 mg PO DAILY [facility] Last Admin: 11/22/17 09:23 Dose: 10 mg Cholecalciferol (Vitamin D) 1,000 intlu PO DAILY [facility] Last Admin: 11/22/17 09:25 Dose: 1,000 intlu Dimethicone (Proshield Plus Skin Protectant) 1 applic TOP Q8 PRN PRN Reason: Rash Last Admin: 11/22/17 17:49 Dose: 1 applic Docusate Sodium (Colace) 100 mg PO BID PRN PRN Reason: Constipation Emollient Ointment (Vaseline Oint) 1 pkt TOP BID [facility] Last Admin: 11/22/17 17:49 Dose: 1 pkt Epoetin Rolo (Procrit) 40,000 unit SC WED [facility] Last Admin: 11/22/17 12:27 Dose: 40,000 unit Ceftaroline Fosamil 200 mg/ (Sodium Chloride) 100 mls @ 100 mls/hr IVPB Q12 [facility] PRN Reason: Protocol Last Admin: 11/22/17 21:32 Dose: 100 mls/hr Insulin Human Lispro (Humalog) 0 units SC ACHS [facility] PRN Reason: Protocol Last Admin: 11/23/17 06:33 Dose: 2 units Ipratropium [place] (Atrovent) 0.5 mg IH RQID [facility] Last Admin: 11/23/17 07:33 Dose: 0.5 mg Lactobacillus Acidophilus (Bacid Acidophilus) 1 cap PO BID [facility] Last Admin: 11/22/17 17:50 Dose: 1 cap Levalbuterol HCl (Xopenex) 0.63 mg INH RQ4 PRN PRN Reason: Shortness of Breath Last Admin: 11/21/17 19:12 Dose: 0.63 mg Levothyroxine Sodium (Synthroid) 50 mcg PO DAILY@0630 [facility] Last Admin: 11/23/17 06:33 Dose: 50 mcg Metoprolol Tartrate (Lopressor) 75 mg PO Q12 [facility] Last Admin: 11/22/17 21:47 Dose: 75 mg Metronidazole (Flagyl) 500 mg PO Q8 [facility] PRN Reason: Protocol Last Admin: 11/23/17 01:35 Dose: 500 mg Multivitamins/Minerals (Therapeutic-M Tab) 1 tab PO DAILY [facility] Last Admin: 11/22/17 09:23 Dose: 1 tab Ondansetron HCl (Zofran Inj) 4 mg IVP Q6 PRN PRN Reason: Nausea/Vomiting Last Admin: 11/13/17 17:15 Dose: 4 mg Sitagliptin Phosphate (Januvia) 100 mg PO DAILY [facility] Last Admin: 11/22/17 09:23 Dose: 100 mg Tolvaptan (Samsca) 15 mg PO ONCE ONE Stop: 11/23/17 09:06 - Labs Labs: 11/23/17 05:20 11/23/17 05:20 - Constitutional Appears: No Acute Distress - ENT Exam ENT Exam: Mucous Membranes Moist - Neck Exam Neck Exam: absent: Lymphadenopathy - Respiratory Exam Respiratory Exam: absent: Chest Wall Tenderness - Extremities Exam Extremities Exam: absent: Calf Tenderness - Back Exam Back Exam: absent: CVA tenderness (L), CVA tenderness (R) - Skin Skin Exam: absent: Cyanosis Assessment and Plan (1) Atrial fibrillation Status: Acute (2) Bronchopneumonia Status: Acute (3) MDS (myelodysplastic syndrome) Status: Acute (4) Neutropenia Status: Acute (5) B-cell lymphoma Status: Chronic (6) Anemia Status: Acute (7) Hyponatremia Assessment & Plan: hyponatremia hypervolemia serum sodium came up only 2. from 129-131 indicating poor response We will give additional Samsca 15 mg stat dose now monitor serum sodium not to go up more than about 10 mEq in the next 24 hours the rest of the medical problem as noted previously medical history including A fib, CAD (CABG triple bypass), COPD, hypercholesterolemia, hypothyroidism, HTN, DM type 2, CHF, 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 (8) Acute kidney injury Status: Acute
[2017-11-23] MEDS ORDERED: Tolvaptan 15 MG TAB PO ONE (09:15)
--- NOTE | 2017-11-23 10:11 | CP.PCM.PN ---
Subjective - Date & Time of Evaluation Date of Evaluation: 11/23/17 Time of Evaluation: 09:30 - Subjective Subjective: Afebrile, sitting OOB, appears exhausted Appetite poor (Labs show low alb level, indicating poor nutrition) BP 136/80 mm Hg A Fib at 90 BPM No signs of CHF Awaits transfer to TCU Objective - Vital Signs/Intake and Output Vital Signs (last 24 hours): Temp Pulse Resp BP Pulse Ox 97.6 F 93 H 19 141/81 99 11/23/17 09:07 11/23/17 09:07 11/23/17 09:07 11/23/17 09:07 11/23/17 09:07 - Medications Medications: Current Medications Acetaminophen (Tylenol 650 Mg Supp) 650 mg [place] Q6 PRN PRN Reason: Fever >100.4 F Last Admin: 11/14/17 00:35 Dose: 650 mg Allopurinol (Zyloprim) 100 mg PO DAILY [facility] Last Admin: 11/22/17 09:26 Dose: 100 mg Atorvastatin Calcium (Lipitor) 10 mg PO DAILY [facility] Last Admin: 11/22/17 09:23 Dose: 10 mg Cholecalciferol (Vitamin D) 1,000 intlu PO DAILY [facility] Last Admin: 11/22/17 09:25 Dose: 1,000 intlu Dimethicone (Proshield Plus Skin Protectant) 1 applic TOP Q8 PRN PRN Reason: Rash Last Admin: 11/22/17 17:49 Dose: 1 applic Docusate Sodium (Colace) 100 mg PO BID PRN PRN Reason: Constipation Emollient Ointment (Vaseline Oint) 1 pkt TOP BID [facility] Last Admin: 11/22/17 17:49 Dose: 1 pkt Epoetin Rolo (Procrit) 40,000 unit SC WED [facility] Last Admin: 11/22/17 12:27 Dose: 40,000 unit Ceftaroline Fosamil 200 mg/ (Sodium Chloride) 100 mls @ 100 mls/hr IVPB Q12 [facility] PRN Reason: Protocol Last Admin: 11/22/17 21:32 Dose: 100 mls/hr Insulin Human Lispro (Humalog) 0 units SC ACHS [facility] PRN Reason: Protocol Last Admin: 11/23/17 06:33 Dose: 2 units Ipratropium [place] (Atrovent) 0.5 mg IH RQID [facility] Last Admin: 11/23/17 07:33 Dose: 0.5 mg Lactobacillus Acidophilus (Bacid Acidophilus) 1 cap PO BID [facility] Last Admin: 11/22/17 17:50 Dose: 1 cap Levalbuterol HCl (Xopenex) 0.63 mg INH RQ4 PRN PRN Reason: Shortness of Breath Last Admin: 11/21/17 19:12 Dose: 0.63 mg Levothyroxine Sodium (Synthroid) 50 mcg PO DAILY@0630 [facility] Last Admin: 11/23/17 06:33 Dose: 50 mcg Metoprolol Tartrate (Lopressor) 75 mg PO Q12 [facility] Last Admin: 11/22/17 21:47 Dose: 75 mg Metronidazole (Flagyl) 500 mg PO Q8 [facility] PRN Reason: Protocol Last Admin: 11/23/17 01:35 Dose: 500 mg Multivitamins/Minerals (Therapeutic-M Tab) 1 tab PO DAILY [facility] Last Admin: 11/22/17 09:23 Dose: 1 tab Ondansetron HCl (Zofran Inj) 4 mg IVP Q6 PRN PRN Reason: Nausea/Vomiting Last Admin: 11/13/17 17:15 Dose: 4 mg Sitagliptin Phosphate (Januvia) 100 mg PO DAILY [facility] Last Admin: 11/22/17 09:23 Dose: 100 mg - Labs Labs: 11/23/17 05:20 11/23/17 05:20
[2017-11-23] MEDS: Proshield Plus GEL TOP PRN (10:18)
[2017-11-23] MEDS: Petrolatum UD PAK TOP SCH (10:20)
[2017-11-23] MEDS: Multivitamin With Minerals Tab PO SCH (10:20)
[2017-11-23] MEDS: Cholecalciferol 1,000 INTLU TAB PO SCH (10:20)
[2017-11-23] MEDS: Lactobacillus Acidophilus 500 MU Cap PO SCH ×2 (10:28→16:45)
[2017-11-23 10:53] LABS: ANISOCYTOSIS SLIGHT; BANDS 2 % (0-2); LYMPHOCYTE 6 % (20-50); MONOCYTE 6 % (0-10); NEUTROPHIL 86 % (42-75); PLATELET ESTIMATE DECREASED (NORMAL); TOTAL CELLS COUNTED 100
[2017-11-23 10:55] LABS: HYPOCHROMIC SLIGHT; LARGE PLATELETS PRESENT; OVALOCYTES SLIGHT; SCHISTOCYTES SLIGHT
--- NOTE | 2017-11-23 12:45 | CP.PCM.PN ---
Subjective - Date & Time of Evaluation Date of Evaluation: 11/23/17 Time of Evaluation: 09:00 - Subjective Subjective: Patient is doing well sitting up in chair this morning has minor caloric intake , denies SOB at rest, her O2 Sat is 99% on NC . Patient states she has a cough with brownish sputum. Some minor C. Diff Antigen diarrhea improved on Flagyl. Patient was out of bed yesterday and stood with PT yest. She still has B/L LE edema on 1L restricted fluids, cardiology following. Vitals stable BP 141/81, HR 93, afebrile. WBC count trending down 16.8, Hg 9.6, Hypoalbuminemia discussed with Dr. Nunes, poor nutrition On physical exam patient has dependent edema of the B/L LE improving, Occasional dry rale heard posteriorly, low pitched expiratory wheezing, Breath sounds are diminished B/L. No central or peripheral cyanosis is noted. Plan is for patient to go to TCU, continue Teflaro at a renal dose, continue Atrovent and Xoponex, continue PT today, Samsca was given for hyponatremia (Na is up to 131), Chemo next week Objective - Vital Signs/Intake and Output Vital Signs (last 24 hours): Temp Pulse Resp BP Pulse Ox 97.6 F 93 H 19 141/81 99 11/23/17 09:07 11/23/17 10:17 11/23/17 09:07 11/23/17 10:17 11/23/17 09:07 - Medications Medications: Current Medications Acetaminophen (Tylenol 650 Mg Supp) 650 mg [place] Q6 PRN PRN Reason: Fever >100.4 F Last Admin: 11/14/17 00:35 Dose: 650 mg Allopurinol (Zyloprim) 100 mg PO DAILY [facility] Last Admin: 11/23/17 10:21 Dose: 100 mg Atorvastatin Calcium (Lipitor) 10 mg PO DAILY [facility] Last Admin: 11/23/17 10:17 Dose: 10 mg Cholecalciferol (Vitamin D) 1,000 intlu PO DAILY [facility] Last Admin: 11/23/17 10:20 Dose: 1,000 intlu Dimethicone (Proshield Plus Skin Protectant) 1 applic TOP Q8 PRN PRN Reason: Rash Last Admin: 11/23/17 10:18 Dose: 1 applic Docusate Sodium (Colace) 100 mg PO BID PRN PRN Reason: Constipation Emollient Ointment (Vaseline Oint) 1 pkt TOP BID [facility] Last Admin: 11/23/17 10:20 Dose: 1 pkt Epoetin Rolo (Procrit) 40,000 unit SC WED [facility] Last Admin: 11/22/17 12:27 Dose: 40,000 unit Ceftaroline Fosamil 200 mg/ (Sodium Chloride) 100 mls @ 100 mls/hr IVPB Q12 [facility] PRN Reason: Protocol Last Admin: 11/23/17 10:19 Dose: 100 mls/hr Insulin Human Lispro (Humalog) 0 units SC ACHS [facility] PRN Reason: Protocol Last Admin: 11/23/17 06:33 Dose: 2 units Ipratropium [place] (Atrovent) 0.5 mg IH RQID [facility] Last Admin: 11/23/17 11:53 Dose: 0.5 mg Lactobacillus Acidophilus (Bacid Acidophilus) 1 cap PO BID [facility] Last Admin: 11/23/17 10:28 Dose: 1 cap Levalbuterol HCl (Xopenex) 0.63 mg INH RQ4 PRN PRN Reason: Shortness of Breath Last Admin: 11/21/17 19:12 Dose: 0.63 mg Levothyroxine Sodium (Synthroid) 50 mcg PO DAILY@0630 [facility] Last Admin: 11/23/17 06:33 Dose: 50 mcg Metoprolol Tartrate (Lopressor) 75 mg PO Q12 [facility] Last Admin: 11/23/17 10:17 Dose: 75 mg Metronidazole (Flagyl) 500 mg PO Q8 [facility] PRN Reason: Protocol Last Admin: 11/23/17 10:16 Dose: 500 mg Multivitamins/Minerals (Therapeutic-M Tab) 1 tab PO DAILY [facility] Last Admin: 11/23/17 10:20 Dose: 1 tab Ondansetron HCl (Zofran Inj) 4 mg IVP Q6 PRN PRN Reason: Nausea/Vomiting Last Admin: 11/13/17 17:15 Dose: 4 mg Sitagliptin Phosphate (Januvia) 100 mg PO DAILY [facility] Last Admin: 11/23/17 10:17 Dose: 100 mg - Labs Labs: 11/23/17 05:20 11/23/17 05:20
--- NOTE | 2017-11-23 13:10 | CP.PCM.PN ---
Subjective - Date & Time of Evaluation Date of Evaluation: 11/23/17 Time of Evaluation: 13:08 - Subjective Subjective: pt sitting in chair comfortably no complaints at this time hd stable nad for discharge to TCU Objective - Vital Signs/Intake and Output Vital Signs (last 24 hours): Temp Pulse Resp BP Pulse Ox 97.6 F 93 H 19 141/81 99 11/23/17 09:07 11/23/17 10:17 11/23/17 09:07 11/23/17 10:17 11/23/17 09:07 Intake and Output: Vitals Reviewed GEN: thin, cachectic HEENT: NCAT, PERRL, EOMI HEART: RRR, +S1S2, NO MRG LUNG: CTAB, NO WRR ABD: soft, NT, ND, No HSM, No masses EXT: normal pedal pulses, normal capillary refill NEURO: awake, alert SKIN: warm, dry PSYCH: normal mood, normal affect - Medications Medications: Current Medications Acetaminophen (Tylenol 650 Mg Supp) 650 mg [place] Q6 PRN PRN Reason: Fever >100.4 F Last Admin: 11/14/17 00:35 Dose: 650 mg Allopurinol (Zyloprim) 100 mg PO DAILY [facility] Last Admin: 11/23/17 10:21 Dose: 100 mg Atorvastatin Calcium (Lipitor) 10 mg PO DAILY [facility] Last Admin: 11/23/17 10:17 Dose: 10 mg Cholecalciferol (Vitamin D) 1,000 intlu PO DAILY [facility] Last Admin: 11/23/17 10:20 Dose: 1,000 intlu Dimethicone (Proshield Plus Skin Protectant) 1 applic TOP Q8 PRN PRN Reason: Rash Last Admin: 11/23/17 10:18 Dose: 1 applic Docusate Sodium (Colace) 100 mg PO BID PRN PRN Reason: Constipation Emollient Ointment (Vaseline Oint) 1 pkt TOP BID [facility] Last Admin: 11/23/17 10:20 Dose: 1 pkt Epoetin Rolo (Procrit) 40,000 unit SC WED [facility] Last Admin: 11/22/17 12:27 Dose: 40,000 unit Ceftaroline Fosamil 200 mg/ (Sodium Chloride) 100 mls @ 100 mls/hr IVPB Q12 [facility] PRN Reason: Protocol Last Admin: 11/23/17 10:19 Dose: 100 mls/hr Insulin Human Lispro (Humalog) 0 units SC ACHS [facility] PRN Reason: Protocol Last Admin: 11/23/17 06:33 Dose: 2 units Ipratropium [place] (Atrovent) 0.5 mg IH RQID [facility] Last Admin: 11/23/17 11:53 Dose: 0.5 mg Lactobacillus Acidophilus (Bacid Acidophilus) 1 cap PO BID [facility] Last Admin: 11/23/17 10:28 Dose: 1 cap Levalbuterol HCl (Xopenex) 0.63 mg INH RQ4 PRN PRN Reason: Shortness of Breath Last Admin: 11/21/17 19:12 Dose: 0.63 mg Levothyroxine Sodium (Synthroid) 50 mcg PO DAILY@0630 [facility] Last Admin: 11/23/17 06:33 Dose: 50 mcg Metoprolol Tartrate (Lopressor) 75 mg PO Q12 [facility] Last Admin: 11/23/17 10:17 Dose: 75 mg Metronidazole (Flagyl) 500 mg PO Q8 [facility] PRN Reason: Protocol Last Admin: 11/23/17 10:16 Dose: 500 mg Multivitamins/Minerals (Therapeutic-M Tab) 1 tab PO DAILY [facility] Last Admin: 11/23/17 10:20 Dose: 1 tab Ondansetron HCl (Zofran Inj) 4 mg IVP Q6 PRN PRN Reason: Nausea/Vomiting Last Admin: 11/13/17 17:15 Dose: 4 mg Sitagliptin Phosphate (Januvia) 100 mg PO DAILY [facility] Last Admin: 11/23/17 10:17 Dose: 100 mg - Labs Labs: 11/23/17 05:20 11/23/17 05:20 Assessment and Plan - Assessment and Plan (Free Text) Plan: 77 yr old female with medical history including A fib, CAD (CABG triple bypass) , COPD, hypercholesterolemia, hypothyroidism, HTN, DM type 2, CHF, MDS, B Cell lymphoma presented from Infusion center per Dr. Luz Nunes for WBC 0.6. Pt also presents with constant moderate dyspnea, associated with fatigue and weakness. CXR showed LLL infiltrate. EKG AFIB with rate 135, Lopressor given. IV antibiotics started. 1. Sepsis 2/2 LLL Pneumonia likely bacterial in a Neutropenic pt Dr Suggs consulted - discussed case- rec to cont Teflaro however change to renal dose, d/c Vancomycin and Bactrim due to abn renal fx and d/c Clindamycin IV -( Pt not to be given IV Vanco due to adverse rxn to kidneys) Dr. Vazquez pulmonology consult following pt closely pt still with cough however afebrile Rpt CXR Plan to d/c pt to TCU in am to continue IV antibiotics and for Physical therapy in am if CXR better and pt clinically better 2. B-cell lymphoma Status: Acute Chemotherapy over two day duration completed a few days ago Dr. Nunes will continue to follow. 3. MDS (myelodysplastic syndrome) Status: Acute Chemotherapy, Dr. Nunes will continue to follow. 4. Pancytopenia sec to Chemotherapy Status: Acute improving WBC ct now high- reverse isolation d/c Pt received Granix so WBC now elevated Dr. Nunes will continue to follow Transfused 2 units PRBC 11/15 5. Chronic a-fib Continue current management - increased Metoprolol 75mg po BID. Xarelto discontinued due to thrombocytopenia 6. COPD chronic cont Atrovent and Xopenex pt has sl wheeze 7. Hyponatremia, improving Status: Acute Dr Allen consulted received Tolvaptan- will be given another dose today accdg to Dr Allen 8.Hypokalemia Replete PRN 9.Hypothyroid Continue home medication: Levothyroxine 50mcg daily. 10. CKD stage III adjust med dose renally Nephrology consult- Dr Allen 11. Physical Deconditioning PT/OT consulted- plan to d/c pt to TCU once she is more stable 12. Aphthous Ulcers , mouth sec to chemotherapy started Magic mouthwash 13. C diff Colitis - started pt on PO Flagyl DVT prophylaxis Status: Acute Comment: Patient was on Xarelto, d/c 2/2 thrombocytopenia, no anticoag
--- NOTE | 2017-11-23 14:14 | CP.PCM.PN ---
Subjective - Date & Time of Evaluation Date of Evaluation: 11/23/17 Time of Evaluation: 14:09 - Subjective Subjective: Pt's general condition is unchanged.She claims she feels better, but is very fatiged. She has had a [place] [employer] police officer consult today for the hypoalbulinemia. She will be mtransafused to TCU for reconditioning and rehab, She is next 2wednday pending for chemotherapy on monday pending clearance from ID and [facility] Objective - Vital Signs/Intake and Output Vital Signs (last 24 hours): Temp Pulse Resp BP Pulse Ox 97.6 F 93 H 19 141/81 99 11/23/17 09:07 11/23/17 10:17 11/23/17 09:07 11/23/17 10:17 11/23/17 09:07 - Medications Medications: Current Medications Acetaminophen (Tylenol 650 Mg Supp) 650 mg [place] Q6 PRN PRN Reason: Fever >100.4 F Last Admin: 11/14/17 00:35 Dose: 650 mg Acyclovir (Zovirax 5% Oint) 1 applic EXT TID [facility] Allopurinol (Zyloprim) 100 mg PO DAILY [facility] Last Admin: 11/23/17 10:21 Dose: 100 mg Atorvastatin Calcium (Lipitor) 10 mg PO DAILY [facility] Last Admin: 11/23/17 10:17 Dose: 10 mg Cholecalciferol (Vitamin D) 1,000 intlu PO DAILY [facility] Last Admin: 11/23/17 10:20 Dose: 1,000 intlu Dimethicone (Proshield Plus Skin Protectant) 1 applic TOP Q8 PRN PRN Reason: Rash Last Admin: 11/23/17 10:18 Dose: 1 applic Docusate Sodium (Colace) 100 mg PO BID PRN PRN Reason: Constipation Emollient Ointment (Vaseline Oint) 1 pkt TOP BID [facility] Last Admin: 11/23/17 10:20 Dose: 1 pkt Epoetin Rolo (Procrit) 40,000 unit SC WED [facility] Last Admin: 11/22/17 12:27 Dose: 40,000 unit Ceftaroline Fosamil 200 mg/ (Sodium Chloride) 100 mls @ 100 mls/hr IVPB Q12 [facility] PRN Reason: Protocol Last Admin: 11/23/17 10:19 Dose: 100 mls/hr Insulin Human Lispro (Humalog) 0 units SC ACHS [facility] PRN Reason: Protocol Last Admin: 11/23/17 13:20 Dose: 2 units Ipratropium [place] (Atrovent) 0.5 mg IH RQID [facility] Last Admin: 11/23/17 11:53 Dose: 0.5 mg Lactobacillus Acidophilus (Bacid Acidophilus) 1 cap PO BID [facility] Last Admin: 11/23/17 10:28 Dose: 1 cap Levalbuterol HCl (Xopenex) 0.63 mg INH RQ4 PRN PRN Reason: Shortness of Breath Last Admin: 11/21/17 19:12 Dose: 0.63 mg Levothyroxine Sodium (Synthroid) 50 mcg PO DAILY@0630 [facility] Last Admin: 11/23/17 06:33 Dose: 50 mcg Metoprolol Tartrate (Lopressor) 75 mg PO Q12 [facility] Last Admin: 11/23/17 10:17 Dose: 75 mg Metronidazole (Flagyl) 500 mg PO Q8 [facility] PRN Reason: Protocol Last Admin: 11/23/17 10:16 Dose: 500 mg Multivitamins/Minerals (Therapeutic-M Tab) 1 tab PO DAILY [facility] Last Admin: 11/23/17 10:20 Dose: 1 tab Ondansetron HCl (Zofran Inj) 4 mg IVP Q6 PRN PRN Reason: Nausea/Vomiting Last Admin: 11/13/17 17:15 Dose: 4 mg Sitagliptin Phosphate (Januvia) 100 mg PO DAILY [facility] Last Admin: 11/23/17 10:17 Dose: 100 mg - Labs Labs: 11/23/17 05:20 11/23/17 05:20
[2017-11-23] MEDS: Acyclovir 5% OINT 15 APPLIC/15 GM EXT SCH (16:43)
[2017-11-24] MEDS: Levothyroxine 50 MCG TAB PO SCH (06:24)
[2017-11-24 07:35] LABS: MEAN CORPUSCULAR HEMOGLOBIN 27.3 pg (27.0-31.0); MEAN CORPUSCULAR HGB CONC 32.5 g/dL (33.0-37.0); RBC 3.66 Mil/uL (3.80-5.20); RED CELL DISTRIBUTION WIDTH 20.4 % (11.5-14.5); WHITE BLOOD COUNT 15.8 K/uL (4.8-10.8)
[2017-11-24] MEDS: Ipratropium 0.02% Inhal Soln (0.5 mg/2.5 ml) UD IH SCH ×4 (07:36→19:10)
[2017-11-24 08:06] LABS: ALB/GLOB RATIO 1.4 (1.0-2.1); ALBUMIN 2.6 g/dL (3.5-5.0); CALCIUM 8.8 mg/dL (8.4-10.2)
[2017-11-24] MEDS: Insulin Lispro (humaLOG) 100 Units/ml Inj SC SCH ×4 (08:39→22:38)
[2017-11-24] MEDS: Cholecalciferol 1,000 INTLU TAB PO SCH (10:22)
[2017-11-24] MEDS: Multivitamin With Minerals Tab PO SCH (10:22)
[2017-11-24] MEDS ORDERED: Sodium Chloride 3% for Inhalation 4 ML VIAL.NEB IH PRN ×2 (10:23→10:28)
[2017-11-24] MEDS: Petrolatum UD PAK TOP SCH ×2 (10:25→16:48)
[2017-11-24] MEDS: Acyclovir 5% OINT 15 APPLIC/15 GM EXT SCH ×3 (10:27→16:47)
[2017-11-24] MEDS: Lactobacillus Acidophilus 500 MU Cap PO SCH ×2 (10:34→16:34)
--- NOTE | 2017-11-24 11:06 | CP.PCM.PN ---
Subjective - Date & Time of Evaluation Date of Evaluation: 11/24/17 Time of Evaluation: 10:00 - Subjective Subjective: Still awaiting a bed in TCU Afebrile A Fib at 80 BPM, BP 144/70 mm Gf No evidence of vol over load JVP flat, no rales Labs noted. Objective - Vital Signs/Intake and Output Vital Signs (last 24 hours): Temp Pulse Resp BP Pulse Ox 97.7 F 96 H 18 129/69 97 11/24/17 08:24 11/24/17 10:21 11/24/17 08:24 11/24/17 10:21 11/24/17 08:24 - Medications Medications: Current Medications Acetaminophen (Tylenol 650 Mg Supp) 650 mg [place] Q6 PRN PRN Reason: Fever >100.4 F Last Admin: 11/14/17 00:35 Dose: 650 mg Acyclovir (Zovirax 5% Oint) 1 applic EXT TID [facility] Last Admin: 11/24/17 10:27 Dose: 1 applic Allopurinol (Zyloprim) 100 mg PO DAILY [facility] Last Admin: 11/24/17 10:22 Dose: 100 mg Atorvastatin Calcium (Lipitor) 10 mg PO DAILY [facility] Last Admin: 11/24/17 10:34 Dose: 10 mg Cholecalciferol (Vitamin D) 1,000 intlu PO DAILY [facility] Last Admin: 11/24/17 10:22 Dose: 1,000 intlu Dimethicone (Proshield Plus Skin Protectant) 1 applic TOP Q8 PRN PRN Reason: Rash Last Admin: 11/23/17 10:18 Dose: 1 applic Docusate Sodium (Colace) 100 mg PO BID PRN PRN Reason: Constipation Last Admin: 11/24/17 10:22 Dose: 100 mg Emollient Ointment (Vaseline Oint) 1 pkt TOP BID [facility] Last Admin: 11/24/17 10:25 Dose: 1 pkt Epoetin Rolo (Procrit) 40,000 unit SC WED [facility] Last Admin: 11/22/17 12:27 Dose: 40,000 unit Ceftaroline Fosamil 200 mg/ (Sodium Chloride) 100 mls @ 100 mls/hr IVPB Q12 [facility] PRN Reason: Protocol Last Admin: 11/23/17 21:41 Dose: 100 mls/hr Moxifloxacin HCl (Avelox Iv 400mg/250ml Ns) 400 mg in 250 mls @ 250 mls/hr IVPB DAILY [facility] PRN Reason: Protocol Insulin Human Lispro (Humalog) 0 units SC ACHS [facility] PRN Reason: Protocol Last Admin: 11/23/17 21:52 Dose: Not Given Ipratropium [place] (Atrovent) 0.5 mg IH RQID [facility] Last Admin: 11/24/17 07:36 Dose: 0.5 mg Lactobacillus Acidophilus (Bacid Acidophilus) 1 cap PO BID [facility] Last Admin: 11/24/17 10:34 Dose: 1 cap Levalbuterol HCl (Xopenex) 0.63 mg INH RQ4 PRN PRN Reason: Shortness of Breath Last Admin: 11/21/17 19:12 Dose: 0.63 mg Levothyroxine Sodium (Synthroid) 50 mcg PO DAILY@0630 [facility] Last Admin: 11/24/17 06:24 Dose: 50 mcg Metoprolol Tartrate (Lopressor) 75 mg PO Q12 [facility] Last Admin: 11/24/17 10:21 Dose: 75 mg Metronidazole (Flagyl) 500 mg PO Q8 [facility] PRN Reason: Protocol Last Admin: 11/24/17 10:21 Dose: 500 mg Multivitamins/Minerals (Therapeutic-M Tab) 1 tab PO DAILY [facility] Last Admin: 11/24/17 10:22 Dose: 1 tab Ondansetron HCl (Zofran Inj) 4 mg IVP Q6 PRN PRN Reason: Nausea/Vomiting Last Admin: 11/13/17 17:15 Dose: 4 mg Sitagliptin Phosphate (Januvia) 100 mg PO DAILY [facility] Last Admin: 11/24/17 10:21 Dose: 100 mg - Labs Labs: 11/24/17 06:30 11/24/17 06:30
--- NOTE | 2017-11-24 12:18 | CP.PCM.PN ---
Subjective - Date & Time of Evaluation Date of Evaluation: 11/24/17 Time of Evaluation: 12:16 - Subjective Subjective: patient is in bed and consciousness Objective - Vital Signs/Intake and Output Vital Signs (last 24 hours): Temp Pulse Resp BP Pulse Ox 97.7 F 96 H 18 129/69 97 11/24/17 08:24 11/24/17 10:21 11/24/17 08:24 11/24/17 10:21 11/24/17 08:24 - Medications Medications: Current Medications Acetaminophen (Tylenol 650 Mg Supp) 650 mg [place] Q6 PRN PRN Reason: Fever >100.4 F Last Admin: 11/14/17 00:35 Dose: 650 mg Acyclovir (Zovirax 5% Oint) 1 applic EXT TID [facility] Last Admin: 11/24/17 10:27 Dose: 1 applic Allopurinol (Zyloprim) 100 mg PO DAILY [facility] Last Admin: 11/24/17 10:22 Dose: 100 mg Atorvastatin Calcium (Lipitor) 10 mg PO DAILY [facility] Last Admin: 11/24/17 10:34 Dose: 10 mg Cholecalciferol (Vitamin D) 1,000 intlu PO DAILY [facility] Last Admin: 11/24/17 10:22 Dose: 1,000 intlu Dimethicone (Proshield Plus Skin Protectant) 1 applic TOP Q8 PRN PRN Reason: Rash Last Admin: 11/23/17 10:18 Dose: 1 applic Docusate Sodium (Colace) 100 mg PO BID PRN PRN Reason: Constipation Last Admin: 11/24/17 10:22 Dose: 100 mg Emollient Ointment (Vaseline Oint) 1 pkt TOP BID [facility] Last Admin: 11/24/17 10:25 Dose: 1 pkt Epoetin Rolo (Procrit) 40,000 unit SC WED [facility] Last Admin: 11/22/17 12:27 Dose: 40,000 unit Ceftaroline Fosamil 200 mg/ (Sodium Chloride) 100 mls @ 100 mls/hr IVPB Q12 [facility] PRN Reason: Protocol Last Admin: 11/24/17 11:35 Dose: 100 mls/hr Moxifloxacin HCl (Avelox Iv 400mg/250ml Ns) 400 mg in 250 mls @ 250 mls/hr IVPB DAILY [facility] PRN Reason: Protocol Insulin Human Lispro (Humalog) 0 units SC ACHS [facility] PRN Reason: Protocol Last Admin: 11/24/17 11:40 Dose: 2 units Ipratropium [place] (Atrovent) 0.5 mg IH RQID [facility] Last Admin: 11/24/17 11:20 Dose: 0.5 mg Lactobacillus Acidophilus (Bacid Acidophilus) 1 cap PO BID [facility] Last Admin: 11/24/17 10:34 Dose: 1 cap Levalbuterol HCl (Xopenex) 0.63 mg INH RQ4 PRN PRN Reason: Shortness of Breath Last Admin: 11/21/17 19:12 Dose: 0.63 mg Levothyroxine Sodium (Synthroid) 50 mcg PO DAILY@0630 [facility] Last Admin: 11/24/17 06:24 Dose: 50 mcg Metoprolol Tartrate (Lopressor) 75 mg PO Q12 [facility] Last Admin: 11/24/17 10:21 Dose: 75 mg Metronidazole (Flagyl) 500 mg PO Q8 [facility] PRN Reason: Protocol Last Admin: 11/24/17 10:21 Dose: 500 mg Multivitamins/Minerals (Therapeutic-M Tab) 1 tab PO DAILY [facility] Last Admin: 11/24/17 10:22 Dose: 1 tab Ondansetron HCl (Zofran Inj) 4 mg IVP Q6 PRN PRN Reason: Nausea/Vomiting Last Admin: 11/13/17 17:15 Dose: 4 mg Sitagliptin Phosphate (Januvia) 100 mg PO DAILY [facility] Last Admin: 11/24/17 10:21 Dose: 100 mg - Labs Labs: 11/24/17 06:30 11/24/17 06:30 - Constitutional Appears: No Acute Distress - Eye Exam Eye Exam: Conjunctival injection - ENT Exam ENT Exam: Mucous Membranes Moist - Neck Exam Neck Exam: absent: Lymphadenopathy - Cardiovascular Exam Cardiovascular Exam: absent: Gallop, JVD, Rubs - GI/Abdominal Exam GI & Abdominal Exam: Soft. absent: Guarding - Extremities Exam Extremities Exam: absent: Calf Tenderness - Back Exam Back Exam: absent: CVA tenderness (L), CVA tenderness (R) - Neurological Exam Neurological Exam: Alert - Psychiatric Exam Psychiatric exam: Normal Affect - Skin Skin Exam: absent: Cyanosis Assessment and Plan (1) Atrial fibrillation Status: Acute (2) Bronchopneumonia Status: Acute (3) MDS (myelodysplastic syndrome) Status: Acute (4) Neutropenia Status: Acute (5) B-cell lymphoma Status: Chronic (6) Anemia Status: Acute (7) Hyponatremia Assessment & Plan: hyponatremia patient is not responding to [place] 15 mg we will give 30 mg serum sodium is still 129 The rest of the medical problem as noted previously medical history including A fib, CAD (CABG triple bypass), COPD, hypercholesterolemia, hypothyroidism, HTN, DM type 2, CHF, 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 Status: Acute (8) Acute kidney injury Status: Acute
--- NOTE | 2017-11-24 13:49 | CP.PCM.PN ---
Subjective - Date & Time of Evaluation Date of Evaluation: 11/24/17 Time of Evaluation: 13:45 - Subjective Subjective: The patient was seen on rounds this morning along with the residents. She was seated up in the chair and appeared in relatively good spirits. She has been fatigued, but today she appeared slightly more robust. She claims her appetite has improved slightly. She was noted to be expectorating thick purulent greenish sputum this morning. A sputum sample container was left at her bedside for culture. Her case was discussed with infectious disease and moxifloxacin will be added to the regimen in case of Pseudomonas nosocomial process. A chest x-ray was performed 2 days prior which did not show any areas of consolidation. On examination sonorous rhonchi were heard bilaterally in dependent areas of the lower lobes. There was no audible wheezing or bronchial breath sounds. Few medium rales are present in the lower lobes as well. Heart sounds are distant and the rhythm is regular. Dependent edema is once again increasing posteriorly to the mid thigh. Re-eval by infectious disease later today. Hopefully improved appetite will result in more positive clinical outcome. Will add levalbuterol 0.63 mg 4 times a day with ipratropium. Objective - Vital Signs/Intake and Output Vital Signs (last 24 hours): Temp Pulse Resp BP Pulse Ox 97.7 F 96 H 18 129/69 97 11/24/17 08:24 11/24/17 10:21 11/24/17 08:24 11/24/17 10:21 11/24/17 08:24 - Medications Medications: Current Medications Acetaminophen (Tylenol 650 Mg Supp) 650 mg [place] Q6 PRN PRN Reason: Fever >100.4 F Last Admin: 11/14/17 00:35 Dose: 650 mg Acyclovir (Zovirax 5% Oint) 1 applic EXT TID [facility] Last Admin: 11/24/17 10:27 Dose: 1 applic Allopurinol (Zyloprim) 100 mg PO DAILY [facility] Last Admin: 11/24/17 10:22 Dose: 100 mg Atorvastatin Calcium (Lipitor) 10 mg PO DAILY [facility] Last Admin: 11/24/17 10:34 Dose: 10 mg Cholecalciferol (Vitamin D) 1,000 intlu PO DAILY [facility] Last Admin: 11/24/17 10:22 Dose: 1,000 intlu Dimethicone (Proshield Plus Skin Protectant) 1 applic TOP Q8 PRN PRN Reason: Rash Last Admin: 11/23/17 10:18 Dose: 1 applic Docusate Sodium (Colace) 100 mg PO BID PRN PRN Reason: Constipation Last Admin: 11/24/17 10:22 Dose: 100 mg Emollient Ointment (Vaseline Oint) 1 pkt TOP BID [facility] Last Admin: 11/24/17 10:25 Dose: 1 pkt Epoetin Rolo (Procrit) 40,000 unit SC WED [facility] Last Admin: 11/22/17 12:27 Dose: 40,000 unit Ceftaroline Fosamil 200 mg/ (Sodium Chloride) 100 mls @ 100 mls/hr IVPB Q12 [facility] PRN Reason: Protocol Last Admin: 11/24/17 11:35 Dose: 100 mls/hr Moxifloxacin HCl (Avelox Iv 400mg/250ml Ns) 400 mg in 250 mls @ 250 mls/hr IVPB DAILY [facility] PRN Reason: Protocol Insulin Human Lispro (Humalog) 0 units SC ACHS [facility] PRN Reason: Protocol Last Admin: 11/24/17 11:40 Dose: 2 units Ipratropium [place] (Atrovent) 0.5 mg IH RQID [facility] Last Admin: 11/24/17 11:20 Dose: 0.5 mg Lactobacillus Acidophilus (Bacid Acidophilus) 1 cap PO BID [facility] Last Admin: 11/24/17 10:34 Dose: 1 cap Levalbuterol HCl (Xopenex) 0.63 mg INH RQ4 PRN PRN Reason: Shortness of Breath Last Admin: 11/21/17 19:12 Dose: 0.63 mg Levothyroxine Sodium (Synthroid) 50 mcg PO DAILY@0630 [facility] Last Admin: 11/24/17 06:24 Dose: 50 mcg Metoprolol Tartrate (Lopressor) 75 mg PO Q12 [facility] Last Admin: 11/24/17 10:21 Dose: 75 mg Metronidazole (Flagyl) 500 mg PO Q8 [facility] PRN Reason: Protocol Last Admin: 11/24/17 10:21 Dose: 500 mg Multivitamins/Minerals (Therapeutic-M Tab) 1 tab PO DAILY [facility] Last Admin: 11/24/17 10:22 Dose: 1 tab Ondansetron HCl (Zofran Inj) 4 mg IVP Q6 PRN PRN Reason: Nausea/Vomiting Last Admin: 11/13/17 17:15 Dose: 4 mg Sitagliptin Phosphate (Januvia) 100 mg PO DAILY [facility] Last Admin: 11/24/17 10:21 Dose: 100 mg - Labs Labs: 11/24/17 06:30 11/24/17 06:30 Assessment and Plan (1) Pneumonia Status: Acute (2) Pancytopenia Status: Acute (3) B-cell lymphoma Status: Chronic (4) COPD (chronic obstructive pulmonary disease) Status: Chronic
[2017-11-24] MEDS: Levalbuterol 0.63 MG/3 ML Inhal Soln UD INH SCH ×2 (15:47→19:10)
[2017-11-24] MEDS: Moxifloxacin IV 400mg/250ml NS 400 MG/250 ML BAG IVPB SCH (16:28)
--- NOTE | 2017-11-24 16:46 | CP.PCM.PN ---
Subjective - Date & Time of Evaluation Date of Evaluation: 11/24/17 Time of Evaluation: 16:43 - Subjective Subjective: i d note patient being transferred to TCU NOT EATING WELL AVELOX ADDED WILL ADJUST DOSE OF TEFLARO Objective - Vital Signs/Intake and Output Vital Signs (last 24 hours): Temp Pulse Resp BP Pulse Ox 97.7 F 96 H 18 129/69 97 11/24/17 08:24 11/24/17 10:21 11/24/17 08:24 11/24/17 10:21 11/24/17 08:24 - Medications Medications: Current Medications Acetaminophen (Tylenol 650 Mg Supp) [address] Q6 PRN PRN Reason: Fever >100.4 F Last Admin: 11/14/17 00:35 Dose: 650 mg Acyclovir (Zovirax 5% Oint) 1 applic EXT TID [facility] Last Admin: 11/24/17 14:16 Dose: 1 applic Allopurinol (Zyloprim) 100 mg PO DAILY [facility] Last Admin: 11/24/17 10:22 Dose: 100 mg Atorvastatin Calcium (Lipitor) 10 mg PO DAILY [facility] Last Admin: 11/24/17 10:34 Dose: 10 mg Cholecalciferol (Vitamin D) 1,000 intlu PO DAILY [facility] Last Admin: 11/24/17 10:22 Dose: 1,000 intlu Dimethicone (Proshield Plus Skin Protectant) 1 applic TOP Q8 PRN PRN Reason: Rash Last Admin: 11/23/17 10:18 Dose: 1 applic Docusate Sodium (Colace) 100 mg PO BID PRN PRN Reason: Constipation Last Admin: 11/24/17 10:22 Dose: 100 mg Emollient Ointment (Vaseline Oint) 1 pkt TOP BID [facility] Last Admin: 11/24/17 10:25 Dose: 1 pkt Epoetin [place]olo (Procrit) 40,000 unit SC WED [facility] Last Admin: 11/22/17 12:27 Dose: 40,000 unit Ceftaroline Fosamil 200 mg/ (Sodium Chloride) 100 mls @ 100 mls/hr IVPB Q12 [facility] PRN Reason: Protocol Last Admin: 11/24/17 11:35 Dose: 100 mls/hr Moxifloxacin HCl (Avelox Iv 400mg/250ml Ns) 400 mg in 250 mls @ 250 mls/hr IVPB DAILY [facility] PRN Reason: Protocol Last Admin: 11/24/17 16:28 Dose: 250 mls/hr Insulin Human Lispro (Humalog) 0 units SC ACHS [facility] PRN Reason: Protocol Last Admin: 11/24/17 16:36 Dose: 2 units Ipratropium [place] (Atrovent) 0.5 mg IH RQID [facility] Last Admin: 11/24/17 15:47 Dose: 0.5 mg Lactobacillus Acidophilus (Bacid Acidophilus) 1 cap PO BID [facility] Last Admin: 11/24/17 16:34 Dose: 1 cap Levalbuterol HCl (Xopenex) 0.63 mg INH RQ4 PRN PRN Reason: Shortness of Breath Last Admin: 11/21/17 19:12 Dose: 0.63 mg Levalbuterol HCl (Xopenex) 0.63 mg INH RQID [facility] Last Admin: 11/24/17 15:47 Dose: 0.63 mg Levothyroxine Sodium (Synthroid) 50 mcg PO DAILY@0630 [facility] Last Admin: 11/24/17 06:24 Dose: 50 mcg Metoprolol Tartrate (Lopressor) 75 mg PO Q12 [facility] Last Admin: 11/24/17 10:21 Dose: 75 mg Metronidazole (Flagyl) 500 mg PO Q8 [facility] PRN Reason: Protocol Last Admin: 11/24/17 16:35 Dose: 500 mg Multivitamins/Minerals (Therapeutic-M Tab) 1 tab PO DAILY [facility] Last Admin: 11/24/17 10:22 Dose: 1 tab Ondansetron HCl (Zofran Inj) 4 mg IVP Q6 PRN PRN Reason: Nausea/Vomiting Last Admin: 11/24/17 14:12 Dose: 4 mg Sitagliptin Phosphate (Januvia) 100 mg PO DAILY [facility] Last Admin: 11/24/17 10:21 Dose: 100 mg - Labs Labs: 11/24/17 06:30 11/24/17 06:30
[2017-11-24 16:51] VITALS: RESP 20
[2017-11-24] MEDS ORDERED: Magnesium Sulfate 2 gm/50 ml 2 GM/50 ML BAG IVPB ONE (17:38)
--- NOTE | 2017-11-24 17:42 | CP.PCM.PN ---
Subjective - Date & Time of Evaluation Date of Evaluation: 11/24/17 Time of Evaluation: 12:00 - Subjective Subjective: No fever poor appetite feels weak no SOB + cough , productive no CP no abd pain soft stool 2x this morning Objective - Vital Signs/Intake and Output Vital Signs (last 24 hours): Temp Pulse Resp BP Pulse Ox 97.5 F L 105 H 20 123/80 95 11/24/17 16:50 11/24/17 16:50 11/24/17 16:50 11/24/17 16:50 11/24/17 16:50 - Medications Medications: Current Medications Acetaminophen (Tylenol 650 Mg Supp) 650 mg [place] Q6 PRN PRN Reason: Fever >100.4 F Last Admin: 11/14/17 00:35 Dose: 650 mg Acyclovir (Zovirax 5% Oint) 1 applic EXT TID [facility] Last Admin: 11/24/17 16:47 Dose: 1 applic Allopurinol (Zyloprim) 100 mg PO DAILY [facility] Last Admin: 11/24/17 10:22 Dose: 100 mg Atorvastatin Calcium (Lipitor) 10 mg PO DAILY [facility] Last Admin: 11/24/17 10:34 Dose: 10 mg Cholecalciferol (Vitamin D) 1,000 intlu PO DAILY [facility] Last Admin: 11/24/17 10:22 Dose: 1,000 intlu Dimethicone (Proshield Plus Skin Protectant) 1 applic TOP Q8 PRN PRN Reason: Rash Last Admin: 11/23/17 10:18 Dose: 1 applic Docusate Sodium (Colace) 100 mg PO BID PRN PRN Reason: Constipation Last Admin: 11/24/17 10:22 Dose: 100 mg Emollient Ointment (Vaseline Oint) 1 pkt TOP BID [facility] Last Admin: 11/24/17 16:48 Dose: 1 pkt Epoetin Rolo (Procrit) 40,000 unit SC WED [facility] Last Admin: 11/22/17 12:27 Dose: 40,000 unit Moxifloxacin HCl (Avelox Iv 400mg/250ml Ns) 400 mg in 250 mls @ 250 mls/hr IVPB DAILY RUIZ PRN Reason: Protocol Last Admin: 11/24/17 16:28 Dose: 250 mls/hr Ceftaroline Fosamil 300 mg/ (Sodium Chloride) 100 mls @ 100 mls/hr IVPB Q12 RUIZ PRN Reason: Protocol Magnesium Sulfate 2 gm/ Sodium (Chloride) 104 mls @ 104 mls/hr IVPB ONCE ONE PRN Reason: 2 GM/HR Stop: 11/24/17 18:37 Insulin Detemir (Levemir) 6 units SC HS [facility] Insulin Human Lispro (Humalog) 0 units SC ACHS RUIZ PRN Reason: Protocol Last Admin: 11/24/17 16:36 Dose: 2 units Ipratropium [place] (Atrovent) 0.5 mg IH RQID [facility] Last Admin: 11/24/17 15:47 Dose: 0.5 mg Lactobacillus Acidophilus (Bacid Acidophilus) 1 cap PO BID [facility] Last Admin: 11/24/17 16:34 Dose: 1 cap Levalbuterol HCl (Xopenex) 0.63 mg INH RQ4 PRN PRN Reason: Shortness of Breath Last Admin: 11/21/17 19:12 Dose: 0.63 mg Levalbuterol HCl (Xopenex) 0.63 mg INH RQID [facility] Last Admin: 11/24/17 15:47 Dose: 0.63 mg Levothyroxine Sodium (Synthroid) 50 mcg PO DAILY@0630 [facility] Last Admin: 11/24/17 06:24 Dose: 50 mcg Metoprolol Tartrate (Lopressor) 75 mg PO Q12 [facility] Last Admin: 11/24/17 10:21 Dose: 75 mg Metronidazole (Flagyl) 500 mg PO Q8 [facility] PRN Reason: Protocol Last Admin: 11/24/17 16:35 Dose: 500 mg Multivitamins/Minerals (Therapeutic-M Tab) 1 tab PO DAILY [facility] Last Admin: 11/24/17 10:22 Dose: 1 tab Ondansetron HCl (Zofran Inj) 4 mg IVP Q6 PRN PRN Reason: Nausea/Vomiting Last Admin: 11/24/17 14:12 Dose: 4 mg Sitagliptin Phosphate (Januvia) 100 mg PO DAILY [facility] Last Admin: 11/24/17 10:21 Dose: 100 mg - Labs Labs: 11/24/17 06:30 11/24/17 06:30 - Constitutional Appears: Non-toxic, No Acute Distress, Chronically Ill - Head Exam Head Exam: NORMAL INSPECTION, NORMOCEPHALIC - Eye Exam Eye Exam: EOMI, Normal appearance Pupil Exam: NORMAL ACCOMMODATION - ENT Exam ENT Exam: Mucous Membranes Moist, Normal External Ear Exam lip ulcers now dry - Neck Exam Neck Exam: Full ROM. absent: Meningismus - Respiratory Exam Respiratory Exam: + Rales, Rhonchi, NORMAL BREATHING PATTERN. - Cardiovascular Exam Cardiovascular Exam: Irregular Rhythm, +S1, +S2 - GI/Abdominal Exam GI & Abdominal Exam: Soft, Normal Bowel Sounds. absent: Tenderness - Extremities Exam Extremities Exam: Pedal Edema. absent: Calf Tenderness LE skin dry - Back Exam Back Exam: absent: CVA tenderness (L), CVA tenderness (R) - Neurological Exam Neurological Exam: Alert, Awake, Oriented x3 - Psychiatric Exam Psychiatric exam: Flat Affect, Normal Mood - Skin Skin Exam: Dry, Pallor, Warm Assessment and Plan - Assessment and Plan (Free Text) Assessment: 77 yr old female with medical history including A fib, CAD (CABG triple bypass) , COPD, hypercholesterolemia, hypothyroidism, HTN, DM type 2, CHF, MDS, B Cell lymphoma presented from Infusion center per Dr. Luz Nunes for WBC 0.6. Pt also presents with constant moderate dyspnea, associated with fatigue and weakness. CXR showed LLL infiltrate. EKG AFIB with rate 135, Lopressor given. IV antibiotics started. 1. Sepsis 2/2 LLL Pneumonia likely bacterial in a Neutropenic pt Dr Suggs consulted - discussed case- rec to cont Teflaro ( renal dose) PT was on Vancomycin and Bactrim however d/c due to abn renal fx and also d/ c Clindamycin IV -( Note : Pt not to be given IV Vanco due to adverse rxn to her kidneys) Dr. Vazquez pulmonology consulted following pt closely- rec to start IV Avelox ( sputum today was brownish) pt still with cough however afebrile Plan to d/c pt to TCU in am to continue IV antibiotics and for Physical therapy if pt clinically better 2. B-cell lymphoma Status: Acute Chemotherapy over two day duration completed a few days ago Dr. Nunes will continue to follow. 3. MDS (myelodysplastic syndrome) Status: Acute Chemotherapy, Dr. Nunes will continue to follow. 4. Pancytopenia sec to Chemotherapy Status: Acute improving WBC ct now high- reverse isolation d/c Pt received Granix so WBC now elevated Dr. Nunes will continue to follow Transfused 2 units PRBC 11/15 5. Chronic a-fib Continue current management - increased Metoprolol 75mg po BID. Xarelto discontinued due to thrombocytopenia 6. COPD chronic cont Atrovent and Xopenex pt has sl wheeze 7. Hyponatremia Status: Acute Dr Allen consulted Sodium still low received Tolvaptan- will be given another dose today accdg to Dr Allen ( 30mg) 8.Hypokalemia Replete PRN 9.Hypothyroid Continue home medication: Levothyroxine 50mcg daily. 10. CKD stage III adjust med dose renally Nephrology consult- Dr Allen 11. Physical Deconditioning PT/OT consulted- plan to d/c pt to TCU once she is more stable 12. Aphthous Ulcers , mouth sec to chemotherapy started Magic mouthwash 13. C diff Colitis - started pt on PO Flagyl DVT prophylaxis Status: Acute Comment: Patient was on Xarelto, d/c 2/2 thrombocytopenia, no anticoag
[2017-11-24] MEDS ORDERED: Insulin Detemir 100 Units/ml Inj SC SCH (22:00)
[2017-11-25] MEDS: Levothyroxine 50 MCG TAB PO SCH (06:41)
[2017-11-25 07:18] LABS: BASO # 0.1 K/uL (0.0-0.2); BASO % 0.8 % (0.0-2.0); EOS % 0.3 % (0.0-4.0); HEMOGLOBIN 9.9 g/dL (12.0-16.0); LYMPH # 0.3 K/uL (1.0-4.3); LYMPH % 2.1 % (20.0-40.0); MEAN CELL VOLUME 84.4 fl (81.0-99.0); MEAN CORPUSCULAR HEMOGLOBIN 27.3 pg (27.0-31.0); MEAN CORPUSCULAR HGB CONC 32.4 g/dL (33.0-37.0); MEAN PLATELET VOLUME 10.2 fl (7.2-11.7); MONO # 0.6 K/uL (0.0-0.8); MONO % 4.4 % (0.0-10.0); NEUT # 13.4 K/uL (1.8-7.0); NEUT % 92.4 % (50.0-75.0); NRBC % 0.3 % (0.0-0.0); PLATELET COUNT 105 K/uL (130-400); RBC 3.62 Mil/uL (3.80-5.20); RED CELL DISTRIBUTION WIDTH 20.1 % (11.5-14.5); WHITE BLOOD COUNT 14.6 K/uL (4.8-10.8)
[2017-11-25] MEDS: Ipratropium 0.02% Inhal Soln (0.5 mg/2.5 ml) UD IH SCH (07:38)
[2017-11-25] MEDS: Levalbuterol 0.63 MG/3 ML Inhal Soln UD INH SCH (07:38)
[2017-11-25 07:42] LABS: CALCIUM 8.9 mg/dL (8.4-10.2)
[2017-11-25] MEDS: Insulin Lispro (humaLOG) 100 Units/ml Inj SC SCH ×2 (08:29→08:36)
[2017-11-25 08:31] VITALS: BP 126/78; PULSE 102; TEMP 98.1; O2SAT 100
[2017-11-25] MEDS: Moxifloxacin IV 400mg/250ml NS 400 MG/250 ML BAG IVPB SCH (08:31)
[2017-11-25] MEDS: Cholecalciferol 1,000 INTLU TAB PO SCH (08:37)
[2017-11-25] MEDS: Petrolatum UD PAK TOP SCH ×2 (08:37→08:38)
[2017-11-25] MEDS: Multivitamin With Minerals Tab PO SCH (08:37)
[2017-11-25] MEDS: Proshield Plus GEL TOP PRN (08:38)
[2017-11-25] MEDS: Acyclovir 5% OINT 15 APPLIC/15 GM EXT SCH (08:38)
[2017-11-25] MEDS: Lactobacillus Acidophilus 500 MU Cap PO SCH (08:41)
[2017-11-25 09:04] LABS: BANDS 4 % (0-2); BASOPHIL 1 % (0-2); EOSINOPHIL 1 % (0-7); LYMPHOCYTE 2 % (20-50); MONOCYTE 4 % (0-10); NEUTROPHIL 88 % (42-75); PLATELET ESTIMATE SLIGHTLY DECREASED (NORMAL); TOTAL CELLS COUNTED 100
[2017-11-25 09:05] LABS: HYPOCHROMIC SLIGHT; OVALOCYTES SLIGHT; TOXIC GRANULATION PRESENT
[2017-11-25 09:07] LABS: LARGE PLATELETS PRESENT; SCHISTOCYTES SLIGHT
[2017-11-25 09:08] LABS: ANISOCYTOSIS MODERATE; POIKILOCYTOSIS SLIGHT
--- NOTE | 2017-11-25 10:58 | CP.PCM.DIS ---
Provider - Provider Date of Admission: 11/13/17 12:15 Attending physician: Peyton Silva DO Primary care physician: Houston Vazquez MD Consults: Pulm: Dr Vazquez ID : DR alves Hematology : DR Luz Nunes Nephrology : Dr Allen Time Spent in preparation of Discharge (in minutes): 30 Diagnosis - Discharge Diagnosis (1) Pneumonia Status: Acute Priority: High (2) Pancytopenia Status: Acute Priority: High (3) Acute kidney injury Status: Acute (4) Atrial fibrillation Status: Chronic Priority: High (5) Hypothyroid Status: Chronic (6) MDS (myelodysplastic syndrome) Status: Chronic (7) B-cell lymphoma Status: Chronic Priority: High (8) COPD (chronic obstructive pulmonary disease) Status: Chronic Priority: High Hospital Course - Lab Results Lab Results: Micro Results 11/17/17 08:07 Naris MRSA Culture (Admit) - Final MRSA NOT DETECTED 11/13/17 13:50 Blood Blood Culture - Final NO GROWTH AFTER 5 DAYS 11/13/17 13:50 Blood Gram Stain - Final TEST NOT PERFORMED 11/14/17 19:40 Urine,Catheterized Urine Culture - Final No Growth (<1,000 CFU/ML) 11/13/17 00:30 Naris MRSA Culture (Admit) - Final MRSA NOT DETECTED Most Recent Lab Values WBC 14.6 K/uL (4.8-10.8) H 11/25/17 05:30 RBC 3.62 Mil/uL (3.80-5.20) L 11/25/17 05:30 Hgb 9.9 g/dL (12.0-16.0) L 11/25/17 05:30 Hct 30.6 % (34.0-47.0) L 11/25/17 05:30 MCV 84.4 fl (81.0-99.0) 11/25/17 05:30 MCH 27.3 pg (27.0-31.0) 11/25/17 05:30 MCHC 32.4 g/dL (33.0-37.0) L 11/25/17 05:30 RDW 20.1 % (11.5-14.5) H 11/25/17 05:30 Plt Count 105 K/uL (130-400) L 11/25/17 05:30 MPV 10.2 fl (7.2-11.7) 11/25/17 05:30 Neut % (Auto) 92.4 % (50.0-75.0) H 11/25/17 05:30 Lymph % (Auto) 2.1 % (20.0-40.0) L 11/25/17 05:30 [place] % (Auto) 4.4 % (0.0-10.0) 11/25/17 05:30 Eos % (Auto) 0.3 % (0.0-4.0) 11/25/17 05:30 Baso % (Auto) 0.8 % (0.0-2.0) 11/25/17 05:30 Neut # (Auto) 13.4 K/uL (1.8-7.0) H 11/25/17 05:30 Lymph # (Auto) 0.3 K/uL (1.0-4.3) L 11/25/17 05:30 [place] # (Auto) 0.6 K/uL (0.0-0.8) 11/25/17 05:30 Eos # (Auto) 0.0 K/uL (0.0-0.7) 11/25/17 05:30 Baso # (Auto) 0.1 K/uL (0.0-0.2) 11/25/17 05:30 Neutrophils % (Manual) 88 % (42-75) H 11/25/17 05:30 Band Neutrophils % 4 % (0-2) H 11/25/17 05:30 Lymphocytes % (Manual) 2 % (20-50) L 11/25/17 05:30 Reactive Lymphs % 1 % (0-0) H 11/18/17 05:30 Monocytes % (Manual) 4 % (0-10) 11/25/17 05:30 Eosinophils % (Manual) 1 % (0-7) 11/25/17 05:30 Basophils % (Manual) 1 % (0-2) 11/25/17 05:30 Myelocytes % 2 % (0-0) H 11/21/17 06:04 Promyelocytes % 1 % (0-0) H 11/18/17 05:30 Nucleated RBC % 1 % (0-0) H 11/21/17 06:04 Toxic Granulation Present 11/25/17 05:30 Platelet Estimate Slightly decreased (NORMAL) L 11/25/17 05:30 Large Platelets Present 11/25/17 05:30 Hypochromasia (manual) Slight 11/25/17 05:30 Poikilocytosis (manual Slight 11/25/17 05:30 Anisocytosis (manual) Moderate 11/25/17 05:30 Macrocytosis (manual) Slight 11/17/17 06:21 Spherocytes Slight 11/17/17 06:21 Tear Drop Cells Slight 11/21/17 06:04 Ovalocytes Slight 11/25/17 05:30 [place] Cells Slight 11/17/17 06:21 Schistocytes Slight 11/25/17 05:30 pO2 36 mm/Hg (30-55) 11/13/17 12:30 VBG pH 7.42 (7.32-7.43) 11/13/17 12:30 VBG pCO2 39 mmHg (40-60) L 11/13/17 12:30 VBG HCO3 24.8 mmol/L 11/13/17 12:30 VBG Total CO2 26.5 mmol/L (22-28) 11/13/17 12:30 VBG O2 Sat (Calc) 77.1 % (40-65) H 11/13/17 12:30 VBG Base Excess 0.8 mmol/L (0.0-2.0) 11/13/17 12:30 VBG Potassium 3.1 mmol/L (3.6-5.2) L 11/13/17 12:30 Sodium 127.0 mmol/L (132-148) L 11/13/17 12:30 Chloride 94.0 mmol/L (98-107) L 11/13/17 12:30 Glucose 403 mg/dL (65-105) H* D 11/13/17 12:30 Lactate 0.8 mmol/L (0.7-2.1) 11/13/17 12:30 FiO2 21.0 % 11/13/17 12:30 Crit Value Called To Machelle porter 11/13/17 12:30 Crit Value Called By 23 11/13/17 12:30 Crit Value Read Back Y 11/13/17 12:30 Blood Gas Notified Time 1240 11/13/17 12:30 Sodium 132 mmol/l (132-148) 11/25/17 05:30 Potassium 4.2 MMOL/L (3.6-5.0) 11/25/17 05:30 Chloride 100 mmol/L (98-107) 11/25/17 05:30 Carbon Dioxide 24 mmol/L (22-30) 11/25/17 05:30 Anion Gap 12 (10-20) 11/25/17 05:30 BUN 14 mg/dl (7-17) 11/25/17 05:30 Creatinine 1.2 mg/dl (0.7-1.2) 11/25/17 05:30 Est GFR ( Amer) 53 11/25/17 05:30 Est GFR (Non-Af Amer) 44 11/25/17 05:30 POC Glucose (mg/dL) 203 mg/dL (65-110) H 11/24/17 16:10 Random Glucose 158 mg/dL (65-105) H 11/25/17 05:30 Serum Osmolality 277 mosm/kg (272-300) 11/18/17 16:33 Calcium 8.9 mg/dL (8.4-10.2) 11/25/17 05:30 Phosphorus 3.3 mg/dl (2.5-4.5) 11/24/17 06:30 Magnesium 1.7 MG/DL (1.6-2.3) 11/25/17 05:30 Total Bilirubin 0.8 mg/dl (0.2-1.3) 11/24/17 06:30 AST 46 U/L (14-36) H 11/24/17 06:30 ALT 76 U/L (9-52) H 11/24/17 06:30 Alkaline Phosphatase 147 U/L (38-126) H D 11/24/17 06:30 Total Protein 4.4 G/DL (6.3-8.2) L 11/24/17 06:30 Albumin 2.6 g/dL (3.5-5.0) L 11/24/17 06:30 Globulin 1.8 gm/dL (2.2-3.9) L 11/24/17 06:30 Albumin/Globulin Ratio 1.4 (1.0-2.1) 11/24/17 06:30 Procalcitonin 0.32 NG/ML (0.19-0.49) 11/23/17 05:20 Venous Blood Potassium 3.1 mmol/L (3.6-5.2) L 11/13/17 12:30 Urine Color [place] (YELLOW) 11/14/17 19:40 Urine Clarity Turbid (Clear) 11/14/17 19:40 Urine pH 6.0 (5.0-8.0) 11/14/17 19:40 Ur Specific [place] 1.021 (1.003-1.030) 11/14/17 19:40 Urine Protein 100 mg/dL (NEGATIVE) 11/14/17 19:40 Urine Glucose (UA) 150 mg/dL (Normal) 11/14/17 19:40 Urine Ketones Negative mg/dL (NEGATIVE) 11/14/17 19:40 Urine Blood Small (NEGATIVE) 11/14/17 19:40 Urine Nitrate Negative (NEGATIVE) 11/14/17 19:40 Urine Bilirubin Negative (NEGATIVE) 11/14/17 19:40 Urine Urobilinogen 2.0 mg/dL (0.2-1.0) H 11/14/17 19:40 Ur Leukocyte Esterase Small Shi/uL (Negative) 11/14/17 19:40 Urine RBC (Auto) 6 /hpf (0-3) H 11/14/17 19:40 Urine Microscopic WBC 7 /hpf (0-5) H 11/14/17 19:40 Ur Squamous Epith Cells 2 /hpf (0-5) 11/14/17 19:40 Urine Bacteria Few (<OCC) H 11/14/17 19:40 Urine Osmolality 517 mosm/kg (300-1000) 11/22/17 06:16 Ur Random Sodium 51 mmol/L 11/22/17 06:16 Vancomycin Trough 20.0 ug/mL (5.0-10.0) H 11/15/17 19:54 Random Vancomycin 9.5 ug/mL 11/18/17 13:23 Cold Agglutinins Negative (NEGATIVE) 11/16/17 04:30 C. difficile Ag & Toxin Positive antigen (NEGATIVE) 11/19/17 17:53 Blood Type A POSITIVE 11/15/17 09:15 Antibody Screen Negative 11/15/17 09:15 Crossmatch See Detail 11/15/17 09:15 BBK History Checked Patient has bt 11/15/17 09:15 - Hospital Course Hospital Course: 77 yr old female with PMHx of A fib, CAD (CABG triple bypass), COPD, hypercholesterolemia, hypothyroidism, HTN, DM type 2, CHF, MDS, B Cell lymphoma presented from Infusion center per Dr. Luz Nunes for WBC 0.6. Pt also presents with constant moderate dyspnea, associated with fatigue and weakness. CXR showed LLL infiltrate. IV antibiotics started. 1. Sepsis 2/2 LLL Pneumonia likely bacterial in a Neutropenic pt Dr Alves consulted - started Teflaro ( renal dose) Pt was on Vancomycin and Bactrim however d/c bec pt developed NICOLE. -( Note : Pt not to be given IV Vanco due to adverse rxn to her kidneys) Dr. Vazquez pulmonology consulted following pt closely- rec to start IV Avelox ( sputum brownish) pt still with cough however afebrile d/c pt to TCU in am to continue IV antibiotics and for Physical therapy 2. B-cell lymphoma Status: Acute Chemotherapy over two day duration completed a few days ago Dr. Nunes will continue to follow. Plan for the 2nd cycle of chemotherapy next wk ( Mon) 3. MDS (myelodysplastic syndrome) Status: Acute Dr. Nunes will continue to follow. 4. Pancytopenia sec to Chemotherapy Status: Acute improved WBC ct now high- reverse isolation d/c Pt received Granix Dr. Nunes will continue to follow Transfused 2 units PRBC 11/15 5. Chronic a-fib Continue current management - increased Metoprolol 75mg po BID. Xarelto discontinued due to thrombocytopenia 6. COPD chronic cont Atrovent and Xopenex 7. Hyponatremia Status: Acute Dr Allen consulted Sodium still low received Tolvaptan 8.Hypokalemia Replete PRN 9.Hypothyroid Continue home medication: Levothyroxine 50mcg daily. 10. CKD stage III adjust med dose renally Nephrology consult- Dr Allen 11. Physical Deconditioning PT/OT consulted- plan to d/c pt to TCU once she is more stable 12. Aphthous Ulcers , mouth sec to chemotherapy started Magic mouthwash 13. C diff Colitis - started pt on PO Flagyl DVT prophylaxis Status: Acute Comment: Patient was on Xarelto, d/c 2/2 thrombocytopenia, no anticoag Discharge Exam - Head Exam Head Exam: ATRAUMATIC, NORMAL INSPECTION, NORMOCEPHALIC - Eye Exam Eye Exam: EOMI, Normal appearance Pupil Exam: NORMAL ACCOMODATION - ENT Exam ENT Exam: Mucous Membranes Dry, Normal External Ear Exam Additional comments: lip : dry, lips sores - Neck Exam Neck exam: Full Rom - Respiratory Exam Respiratory Exam: Rales, Rhonchi, NORMAL BREATHING PATTERN. absent: Wheezes, Respiratory Distress - Cardiovascular Exam Cardiovascular Exam: REGULAR RHYTHM, +S1, +S2 - GI/Abdominal Exam GI & Abdominal Exam: Normal Bowel Sounds, Soft. absent: Tenderness - Extremities Exam Extremities exam: normal capillary refill, pedal edema - Back Exam Back exam: absent: CVA tenderness (L), CVA tenderness (R) - Neurological Exam Neurological exam: Alert, CN II-XII Intact, Oriented x3, Reflexes Normal - Psychiatric Exam Psychiatric exam: Flat Affect - Skin Skin Exam: Dry, Normal Color, Warm Discharge Plan - Discharge Medications Prescriptions: Ceftaroline [Teflaro] 300 mg IV Q12 #1 vial Moxifloxacin IV 400mg/250ml NS [Avelox IV 400mg/250ml NS] 400 mg IVPB DAILY #7 bag - Follow Up Plan Condition: IMPROVED Disposition: TRANSF TO SNF Instructions: Sepsis in Adults, Shortness of Breath (Dyspnea) (DC), Neutropenia (DC), Lymphoma (DC) Additional Instructions: d/c pt to TCU Referrals: Russell Nunes MD [Staff Provider] - Raul Nunes MD [Staff Provider] - Houston Vazquez MD [Primary Care Provider] - Paresh Alves MD [Medical Doctor] -
== END 2017-11-25 11:05 | DRG 871 ==
LOC: H.ER 11:41 → SUPCPDRO 11:41 → H.ERHOLD 12:15 → H.ICU/CCU 23:36 → H.MEDSURG1 11-17 03:56
PROVIDERS: ADMIT Student in an Organized Health Care Education/Training Program; ATTEND Student in an Organized Health Care Education/Training Program
PROC: 5A0955Z Assistance with Respiratory Ventilation, Greater than 96 Consecutive Hours (ICD-10-PCS; principal; 2017-11-13)
DX: A41.9 Sepsis, unspecified organism (principal); D61.810 Antineoplastic chemotherapy induced pancytopenia; N17.0 Acute kidney failure with tubular necrosis; J15.9 Unspecified bacterial pneumonia; J44.0 Chronic obstructive pulmonary disease with (acute) lower respiratory infection; J44.1 Chronic obstructive pulmonary disease with (acute) exacerbation; C85.17 Unspecified B-cell lymphoma, spleen; E22.2 Syndrome of inappropriate secretion of antidiuretic hormone; A04.72 Enterocolitis due to Clostridium difficile, not specified as recurrent; E46 Unspecified protein-calorie malnutrition; I13.0 Hypertensive heart and chronic kidney disease with heart failure and stage 1 through stage 4 chronic kidney disease, or unspecified chronic kidney disease; I50.42 Chronic combined systolic (congestive) and diastolic (congestive) heart failure; D46.9 Myelodysplastic syndrome, unspecified; I25.10 Atherosclerotic heart disease of native coronary artery without angina pectoris; Z95.1 Presence of aortocoronary bypass graft; Z95.5 Presence of coronary angioplasty implant and graft; K29.70 Gastritis, unspecified, without bleeding; E03.9 Hypothyroidism, unspecified; Z96.653 Presence of artificial knee joint, bilateral; Z87.891 Personal history of nicotine dependence; H91.91 Unspecified hearing loss, right ear; E78.00 Pure hypercholesterolemia, unspecified; I48.2 Chronic atrial fibrillation; E87.6 Hypokalemia; E78.5 Hyperlipidemia, unspecified; G47.33 Obstructive sleep apnea (adult) (pediatric); T45.1X5A Adverse effect of antineoplastic and immunosuppressive drugs, initial encounter; D70.1 Agranulocytosis secondary to cancer chemotherapy; K12.0 Recurrent oral aphthae; R53.81 Other malaise; E11.22 Type 2 diabetes mellitus with diabetic chronic kidney disease; N18.3 Chronic kidney disease, stage 3 (moderate); L89.312 Pressure ulcer of right buttock, stage 2

== ENCOUNTER 2017-11-25 10:22 | Inpatient (IN) | payer OTHER, BC ==
[2017-11-25 11:21] VITALS: BMI 33.0
[2017-11-25] MEDS ORDERED: Dextrose 50% SYRINGE Inj (50 ml) IV PRN (12:36)
[2017-11-25] MEDS ORDERED: Glucagon Recombinant 1 mg Inj IM PRN (12:36)
--- NOTE | 2017-11-25 13:00 | CP.PCM.CON ---
History of Present Illness - History of Present Illness History of Present Illness: Thiss 77 year old female has been discharged from acute medicine after being treated for pneumonia and pancytopenia. She has been recently diagnosed with B cell lymphoma and started on chemotherapy. On admission in the ER she was found to have a retrocardiac/LLL pneumonia and placed on multi-antibiotic coverage. She is malnourished and has a very poor appetite with hypoproteinemia and significant edema of both lower extremities. She is a former cigarette smoker with underlying COPD as well as CAD with prior CABG and PCI. Past Patient History - Infectious Disease Hx of Infectious Diseases: None - Past Medical History & Family History Past Medical History?: Yes - Past Social History Smoking Status: Former Smoker Chewing Tobacco Use: No Cigar Use: No Alcohol: Social Drugs: Denies - CARDIAC Hx Atrial Fibrillation: Yes Hx Congestive Heart Failure: Yes Hx Hypercholesterolemia: Yes Hx Hypertension: Yes Hx Peripheral Edema: Yes - PULMONARY Hx Chronic Obstructive Pulmonary Disease (COPD): Yes Hx Pneumonia: Yes Hx Sleep Apnea: Yes - NEUROLOGICAL Hx Neurological Disorder: No - HEENT Hx HEENT Problems: Yes (Hearing loss in the right ear.) - RENAL Hx Chronic Kidney Disease: No Other/Comment: NICOLE due to vanco(recent admission) - ENDOCRINE/METABOLIC Hx Diabetes Mellitus Type 2: Yes - HEMATOLOGICAL/ONCOLOGICAL Hx Anemia: Yes Hx Blood Transfusions: Yes Hx Cancer: Yes (b cell lymphoma) Hx Chemotherapy: Yes Other/Comment: myodysplastic syndrome - INTEGUMENTARY Hx Dermatological Problems: No - MUSCULOSKELETAL/RHEUMATOLOGICAL Hx Falls: Yes - GASTROINTESTINAL Hx Gastritis: Yes - GENITOURINARY/GYNECOLOGICAL Hx Genitourinary Disorders: No Hx Incontinence: Yes - PSYCHIATRIC Hx Psychophysiologic Disorder: No Hx Substance Use: No - SURGICAL HISTORY Hx Coronary Artery Bypass Graft: Yes (2000) Hx Coronary Stent: Yes (PCI 2007 and 2010) Other/Comment: meg knee replacement - ANESTHESIA Hx Anesthesia: Yes Hx Anesthesia Reactions: No Hx Malignant Hyperthermia: No Has any member of the family had a problem w/ anesthesia?: Yes Meds Allergies/Adverse Reactions: Allergies Allergy/AdvReac Type Severity Reaction Status Date / Time vancomycin AdvReac Intermediate NAUSEA Verified 11/25/17 11:20 - Medications Medications: Current Medications Acetaminophen (Tylenol 650 Mg Supp) 650 mg [place] Q6 PRN PRN Reason: Fever >100.4 F Acyclovir (Zovirax 5% Oint) 1 applic EXT TID [facility] Allopurinol (Zyloprim) 100 mg PO DAILY [facility] Atorvastatin Calcium (Lipitor) 10 mg PO DAILY [facility] Ceftaroline Fosamil (Teflaro) 300 mg IVPB Q12 [facility]Z PRN Reason: Protocol Cholecalciferol (Vitamin D) intlu PO DAILY [facility] Dextrose (Dextrose 50% Inj) 0 ml IV STAT PRN; Protocol PRN Reason: Hypoglycemia Protocol Dimethicone (Proshield Plus Skin Protectant) 1 applic TOP Q8 PRN PRN Reason: Rash Emollient Ointment (Vaseline Oint) 1 pkt TOP BID [facility] Epoetin Rolo (Procrit) 40,000 unit SC WED [facility] Glucagon (Glucagen Diagnostic Kit) 0 mg IM STAT PRN; Protocol PRN Reason: Hypoglycemia Protocol Home Med (Moxifloxacin Iv 400mg/250ml Ns [Avelox Iv 400mg/250ml Ns]) 400 mg IVPB DAILY [facility] Home Med (Multivitamin With Minerals [Hair, Skin And Nails]) 1 tab PO DAILY [facility] Insulin Detemir (Levemir) 6 units SC HS [facility] Insulin Human Lispro (Humalog) 0 units SC ACHS [facility] PRN Reason: Protocol Ipratropium [place] (Atrovent) 0.5 mg IH RQID [facility] Lactobacillus Acidophilus (Bacid Acidophilus) 1 cap PO BID [facility] Levalbuterol HCl (Xopenex) 0.63 mg INH RQ4 PRN PRN Reason: Shortness of Breath Levalbuterol HCl (Xopenex) 0.63 mg INH RQID [facility] Levothyroxine Sodium (Synthroid) 50 mcg PO DAILY [facility] Metoprolol Tartrate (Lopressor) 50 mg PO Q12 [facility] Metronidazole (Flagyl) 500 mg PO Q8 [facility] PRN Reason: Protocol Sitagliptin Phosphate (Januvia) 100 mg PO DAILY [facility] Physical Exam - Additional Findings Additional findings: Lying in bed, semi upright, appears comfortable at rest. No shortness of breath, no cyanosis, ++ dependant edema of LE up to mid-thigh posteriorly. Neck is supple, trachea is midline. Pharynx is pink and moist w/o exudate. No dullness on chest percussion, increased AP diameter of thorax. Breath sounds are significantly diminished bilaterally with prolonged E phase. No audible wheezes heard. Few dry to medium rales in lower lobes bilaterally. No bronchial breath sounds or egophony. Heart sounds are distant, rhythm irregular. Results - Labs Result Diagrams: 11/26/17 06:00 11/26/17 06:00 Assessment & Plan (1) Acute exacerbation of chronic obstructive bronchitis Status: Acute Priority: High - Assessment and Plan (Free Text) Plan: Continue empiric treatment for exacerbation of chronic bronchitis with grossly purulent sputum, awaiting sputum for culture. Patient has been unable to comply with sputum collection, but does state that the sputum is now more yellow in color. Had previously been a dark greenish- yellow purulent consistency on the medical floor. - Date & Time Date: 11/25/17 Time: 12:59
[2017-11-25] MEDS: Acyclovir 5% OINT 15 APPLIC/15 GM EXT SCH ×2 (13:57→17:53)
[2017-11-25] MEDS: Ipratropium 0.02% Inhal Soln (0.5 mg/2.5 ml) UD IH SCH ×2 (15:28→19:12)
[2017-11-25] MEDS: Levalbuterol 0.63 MG/3 ML Inhal Soln UD INH SCH ×2 (15:29→19:12)
[2017-11-25] MEDS: Lactobacillus Acidophilus 500 MU Cap PO SCH (17:50)
[2017-11-25] MEDS: Insulin Lispro (humaLOG) 100 Units/ml Inj SC SCH ×2 (17:52→22:36)
[2017-11-25] MEDS: Petrolatum UD PAK TOP SCH (17:53)
--- NOTE | 2017-11-25 17:54 | CP.PCM.PN ---
Subjective - Date & Time of Evaluation Date of Evaluation: 11/25/17 Time of Evaluation: 17:50 - Subjective Subjective: i d note afebrile wbc:14 creatinine :1.2 lungs:some rales at bases still not eating well but having Glucerna continue teflaro/avelox Objective - Vital Signs/Intake and Output Vital Signs (last 24 hours): Temp Pulse Resp BP Pulse Ox 97 H 20 99 11/25/17 13:16 11/25/17 11:36 11/25/17 13:16 - Medications Medications: Current Medications Acetaminophen (Tylenol 650 Mg Supp) 650 mg [place] Q6 PRN PRN Reason: Fever >100.4 F Acyclovir (Zovirax 5% Oint) 1 applic EXT TID [facility] Last Admin: 11/25/17 13:57 Dose: 1 applic Allopurinol (Zyloprim) 100 mg PO DAILY [facility] Atorvastatin Calcium (Lipitor) 10 mg PO DAILY [facility] Cholecalciferol (Vitamin D) 1,000 intlu PO DAILY [facility] Dextrose (Dextrose 50% Inj) 0 ml IV STAT PRN; Protocol PRN Reason: Hypoglycemia Protocol Dimethicone (Proshield Plus Skin Protectant) 1 applic TOP Q8 PRN PRN Reason: Rash Emollient Ointment (Vaseline Oint) 1 pkt TOP BID [facility] Epoetin Rolo (Procrit) 40,000 unit SC WED [facility] Glucagon (Glucagen Diagnostic Kit) 0 mg IM STAT PRN; Protocol PRN Reason: Hypoglycemia Protocol Moxifloxacin HCl (Avelox Iv 400mg/250ml Ns) 400 mg in 250 mls @ 250 mls/hr IVPB DAILY [facility] Ceftaroline Fosamil 300 mg/ (Sodium Chloride) 100 mls @ 100 mls/hr IVPB Q12 [facility] Insulin Detemir (Levemir) 6 units SC HS [facility] Insulin Human Lispro (Humalog) 0 units SC ACHS [facility] PRN Reason: Protocol Ipratropium [place] (Atrovent) 0.5 mg IH RQID [facility] Last Admin: 11/25/17 15:28 Dose: 0.5 mg Lactobacillus Acidophilus (Bacid Acidophilus) 1 cap PO BID RUIZ Levalbuterol HCl (Xopenex) 0.63 mg INH RQ4 PRN PRN Reason: Shortness of Breath Levalbuterol HCl (Xopenex) 0.63 mg INH RQID [facility] Last Admin: 11/25/17 15:29 Dose: 0.63 mg Levothyroxine Sodium (Synthroid) 50 mcg PO DAILY@0630 [facility] Metoprolol Tartrate (Lopressor) 50 mg PO Q12 RUIZ Metronidazole (Flagyl) 500 mg PO Q8 [facility] PRN Reason: Protocol Multivitamins/Minerals (Therapeutic-M Tab) 1 tab PO DAILY [facility] Sitagliptin Phosphate (Januvia) 100 mg PO DAILY RUIZ
[2017-11-25] MEDS ORDERED: Ceftaroline 400 mg Inj IVPB SCH (21:00)
[2017-11-25] MEDS: Insulin Detemir 100 Units/ml Inj SC SCH (22:37)
[2017-11-26] MEDS: Levothyroxine 50 MCG TAB PO SCH (05:54)
[2017-11-26] MEDS: Insulin Lispro (humaLOG) 100 Units/ml Inj SC SCH ×4 (06:37→21:39)
[2017-11-26] MEDS: Ipratropium 0.02% Inhal Soln (0.5 mg/2.5 ml) UD IH SCH ×4 (07:31→19:13)
[2017-11-26] MEDS: Levalbuterol 0.63 MG/3 ML Inhal Soln UD INH SCH ×4 (07:31→19:13)
[2017-11-26 07:39] LABS: HEMOGLOBIN 9.5 g/dL (12.0-16.0); MEAN CELL VOLUME 85.4 fl (81.0-99.0); MEAN CORPUSCULAR HEMOGLOBIN 27.8 pg (27.0-31.0); MEAN CORPUSCULAR HGB CONC 32.6 g/dL (33.0-37.0); RBC 3.42 Mil/uL (3.80-5.20); RED CELL DISTRIBUTION WIDTH 21.2 % (11.5-14.5); WHITE BLOOD COUNT 10.1 K/uL (4.8-10.8)
[2017-11-26 07:49] LABS: CALCIUM 8.3 mg/dL (8.4-10.2)
[2017-11-26] MEDS ORDERED: Patient's Own Med (Moxifloxacin Iv 400mg/250ml Ns [Avelox Iv 400mg/250ml Ns] 400 MG) IVPB SCH (09:00)
[2017-11-26] MEDS ORDERED: Moxifloxacin IV 400mg/250ml NS 400 MG/250 ML BAG IVPB SCH (09:00)
--- NOTE | 2017-11-26 09:14 | CP.PCM.HP ---
History of Present Illness - History of Present Illness History of Present Illness: Chief Complaint : transferred to TCU for physical therapy and to continue IV antibiotics for treatment of Pneumonia HPI: 77 yr old female with PMHx of A fib, CAD (CABG triple bypass), COPD, hypercholesterolemia, hypothyroidism, HTN, DM type 2, CHF, MDS, B Cell lymphoma s/p recent Chemotherapy, was admitted for Pancytopenia and Sepsis due to Pneumonia. Pt was started on IV antibiotics, IVF hydration and Infectious Disease specialist and Pulmonary were consulted . Pt placed on IV Teflaro and Avelox. Patient was also Pancytopenic on admission. Hematology was consulted . Pt received PRBC transfusion and Granix. Patients symptoms improved however , patient is very physical deconditioned. She trans transferred to TCU for Physicl therapy and to continue IV abx treatment or her Pneumonia. Pt also developed C diff Colitis and started on PO Flagyl. At present, pt is afebrile , still has cough but better , diarrhea resolved. Present on Admission - Present on Admission Any Indicators Present on Admission: No Review of Systems - Review of Systems All systems: reviewed and no additional remarkable complaints except - Constitutional Constitutional: Fatigue, Lethargy, Malaise. absent: Chills, Fever - EENT Eyes: absent: Blurred Vision, Change in Vision, Diplopia Ears: absent: Decreased Hearing, Ear Discharge, Ear Pain Nose/Mouth/Throat: absent: Epistaxis, Nasal Congestion, Nasal Obstruction - Cardiovascular Cardiovascular: absent: Chest Pain, Diaphoresis, Lightheadedness, Palpitations, Paroxysmal Nocturnal Dyspnea - Respiratory Respiratory: Cough, Dyspnea, Dyspnea on Exertion, Wheezing, Change in Mucous Color. absent: Hemoptysis - Gastrointestinal Gastrointestinal: absent: Abdominal Pain, Melena, Nausea, Vomiting - Genitourinary Genitourinary: absent: Difficulty Urinating, Dysuria, Hematuria - Musculoskeletal Musculoskeletal: Muscle Weakness. absent: Limited Range of Motion - Integumentary Integumentary: Dry Skin Additional comments: lip sores - Neurological Neurological: absent: Confusion, Disequilibrium, Headaches - Psychiatric Psychiatric: absent: Anxiety, Suicidal Ideation, Visual Hallucinations - Endocrine Endocrine: Polydipsia, Polyphagia, Polyuria - Hematologic/Lymphatic Hematologic: Easy Bruising. absent: Easy Bleeding Past Patient History - Infectious Disease Hx of Infectious Diseases: None - Tetanus Immunizations Tetanus Immunization: Unknown - Past Medical History & Family History Past Medical History?: Yes Past Family History: Reviewed and not pertinent - Past Social History Smoking Status: Former Smoker Chewing Tobacco Use: No Cigar Use: No Alcohol: None Drugs: Denies Home Situation {Lives}: With Family Domestic Violence: Negative - CARDIAC Hx Cardiac Disorders: Yes Hx Hypercholesterolemia: Yes Hx Hypertension: Yes - PULMONARY Hx Chronic Obstructive Pulmonary Disease (COPD): Yes - NEUROLOGICAL Hx Neurological Disorder: No - HEENT Hx HEENT Problems: Yes (Hearing loss in the right ear.) - RENAL Hx Chronic Kidney Disease: Yes Other/Comment: NICOLE due to vanco(recent admission) - ENDOCRINE/METABOLIC Hx Diabetes Mellitus Type 2: Yes - HEMATOLOGICAL/ONCOLOGICAL Hx Anemia: Yes Hx Blood Transfusions: Yes Hx Cancer: Yes (b cell lymphoma) Hx Chemotherapy: Yes Hx Lymphoma: Yes Other/Comment: myelodysplastic syndrome - INTEGUMENTARY Hx Dermatological Problems: No - MUSCULOSKELETAL/RHEUMATOLOGICAL Hx Falls: Yes - GASTROINTESTINAL Hx Gastritis: Yes - GENITOURINARY/GYNECOLOGICAL Hx Genitourinary Disorders: No Hx Incontinence: Yes - PSYCHIATRIC Hx Psychophysiologic Disorder: No Hx Substance Use: No - SURGICAL HISTORY Hx Coronary Artery Bypass Graft: Yes (2000) Hx Coronary Stent: Yes (PCI 2007 and 2010) Other/Comment: meg knee replacement - ANESTHESIA Hx Anesthesia: Yes Hx Anesthesia Reactions: No Hx Malignant Hyperthermia: No Has any member of the family had a problem w/ anesthesia?: Yes Meds Allergies/Adverse Reactions: Allergies Allergy/AdvReac Type Severity Reaction Status Date / Time vancomycin AdvReac Intermediate NAUSEA Verified 11/25/17 11:20 Physical Exam - Constitutional Appears: Non-toxic, No Acute Distress, Chronically Ill - Head Exam Head Exam: ATRAUMATIC - Eye Exam Eye Exam: EOMI, Normal appearance, PERRL Pupil Exam: NORMAL ACCOMODATION - ENT Exam ENT Exam: Mucous Membranes Dry, Normal External Ear Exam - Neck Exam Neck exam: Positive for: Full Rom. Negative for: Meningismus - Respiratory Exam Respiratory Exam: Rales, Rhonchi, Wheezes. absent: Respiratory Distress - Cardiovascular Exam Cardiovascular Exam: Irregular Rhythm, +S1, +S2 - GI/Abdominal Exam GI & Abdominal Exam: Normal Bowel Sounds, Soft. absent: Tenderness - Extremities Exam Extremities exam: Positive for: normal capillary refill, pedal pulses present. Negative for: calf tenderness - Back Exam Back exam: FULL ROM. absent: CVA tenderness (L), CVA tenderness (R) - Neurological Exam Neurological exam: Alert, CN II-XII Intact, Oriented x3, Reflexes Normal - Psychiatric Exam Psychiatric exam: Normal Affect, Normal Mood - Skin Skin Exam: Normal Color, Pallor, Warm Results - Vital Signs Recent Vital Signs: Last Vital Signs Temp Pulse 98 H 11/25/17 23:00 Resp 20 11/25/17 11:36 BP 121/69 11/25/17 23:00 Pulse Ox 99 11/25/17 13:16 - Labs Result Diagrams: 11/26/17 06:00 11/26/17 06:00 Labs: Laboratory Results - last 24 hr 11/26/17 11/26/17 06:00 06:00 WBC 10.1 RBC 3.42 L Hgb 9.5 L Hct 29.2 L MCV 85.4 MCH 27.8 MCHC 32.6 L RDW 21.2 H Plt Count 92 L Sodium 131 L Potassium 4.2 Chloride 101 Carbon Dioxide 20 L Anion Gap 14 BUN 14 Creatinine 1.1 Est GFR ( Amer) 58 Est GFR (Non-Af Amer) 48 Random Glucose 181 H Calcium 8.3 L Assessment & Plan - Assessment and Plan (Free Text) Assessment: 77 yr old female with PMHx of A fib, CAD (CABG triple bypass), COPD, hypercholesterolemia, hypothyroidism, HTN, DM type 2, CHF, MDS, B Cell lymphoma s/p Recent Chemotherapy , became Pancytopenic and developed Pneumonia. She is also severely physically deconditioned - admitted to TCU for for Physical 5therapy and completion of IV antibiotics for tx of Pneumonia. 1. Sepsis 2/2 LLL Bacterial Pneumonia , improving cont IV Teflaro and IV Avelox Pulm and ID consult 2. B-cell lymphoma / MDS (myelodysplastic syndrome) Plan for the 2nd cycle of chemotherapy next wk ( Mon) by Dr Luz sahu 3. Pancytopenia sec to Chemotherapy improved with PRBC transfusion and Granix 4. Chronic a-fib Continue current management -Metoprolol 75mg po BID. Xarelto on hold due to thrombocytopenia 5. COPD chronic cont Atrovent and Xopenex 6. Hyponatremia Na [address] Allen consult received Tolvaptan 7.Hypothyroid Continue home medication: Levothyroxine 50mcg daily. 8. CKD stage III 9. Physical Deconditioning PT/OT consult 10. C diff Colitis - cont PO Flagyl - diarrhea resolved DVT prophylaxis Comment: Patient was on Xarelto, d/c 2/2 thrombocytopenia, no anticoag SCD only for now Decision To Admit - Pt Status Changed To: Hospital Disposition Of: Inpatient - Admit Certification Admit to Inpatient:: After my assessment, the patient will require hospitalization for at least two midnights. This is because of the severity of symptoms shown, intensity of services needed, and/or the medical risk in this patient being treated as an outpatient. - . Bed Request Type: Transitional Care Unit Admitting Physician: Malu Berrios
[2017-11-26] MEDS: Proshield Plus GEL TOP PRN (09:40)
[2017-11-26] MEDS: Acyclovir 5% OINT 15 APPLIC/15 GM EXT SCH ×3 (09:41→16:28)
[2017-11-26] MEDS: Petrolatum UD PAK TOP SCH ×2 (09:42→16:28)
[2017-11-26] MEDS: Lactobacillus Acidophilus 500 MU Cap PO SCH ×2 (09:42→16:25)
[2017-11-26] MEDS: Cholecalciferol 1,000 INTLU TAB PO SCH (09:43)
[2017-11-26] MEDS: Multivitamin With Minerals Tab PO SCH (09:43)
[2017-11-26] MEDS ORDERED: Albuterol-Ipratrop 3 mg / 0.5 (3 ml) UD INH STA (10:38)
--- NOTE | 2017-11-26 12:59 | CP.PCM.PN ---
Subjective - Date & Time of Evaluation Date of Evaluation: 11/26/17 Time of Evaluation: 11:00 - Subjective Subjective: I D NOTE AFEBRILE WBC:10.1,HGB:9.5,PLATELETS:95 CREATININE:1.1,GFR:48 NO CHANGE IN ANTIBIOTIC COVERAGE HAD SIGNIFICANT CONGESTION THIS AM RESPIRATORY RX STARTED HAD SOME FOOD THIS PM ,SUBSEQUENTLY VOMITED. STARTED ON ZOFRAN AND PANTOPRAZOLE Objective - Vital Signs/Intake and Output Vital Signs (last 24 hours): Temp Pulse Resp BP Pulse Ox 98 H 20 128/76 99 11/26/17 09:42 11/25/17 11:36 11/26/17 09:42 11/25/17 13:16 - Medications Medications: Current Medications Acetaminophen (Tylenol 650 Mg Supp) 650 mg [place] Q6 PRN PRN Reason: Fever >100.4 F Acyclovir (Zovirax 5% Oint) 1 applic EXT TID [facility] Last Admin: 11/26/17 12:16 Dose: 1 applic Allopurinol (Zyloprim) 100 mg PO DAILY [facility] Last Admin: 11/26/17 09:43 Dose: 100 mg Atorvastatin Calcium (Lipitor) 10 mg PO DAILY [facility] Last Admin: 11/26/17 09:43 Dose: 10 mg Cholecalciferol (Vitamin D) 1,000 intlu PO DAILY [facility] Last Admin: 11/26/17 09:43 Dose: 1,000 intlu Dextrose (Dextrose 50% Inj) 0 ml IV STAT PRN; Protocol PRN Reason: Hypoglycemia Protocol Dimethicone (Proshield Plus Skin Protectant) 1 applic TOP Q8 PRN PRN Reason: Rash Last Admin: 11/26/17 09:40 Dose: 1 applic Emollient Ointment (Vaseline Oint) 1 pkt TOP BID [facility] Last Admin: 11/26/17 09:42 Dose: 1 pkt Epoetin Rolo (Procrit) 40,000 unit SC WED [facility] Glucagon (Glucagen Diagnostic Kit) 0 mg IM STAT PRN; Protocol PRN Reason: Hypoglycemia Protocol Moxifloxacin HCl (Avelox Iv 400mg/250ml Ns) 400 mg in 250 mls @ 250 mls/hr IVPB DAILY [facility] Last Admin: 11/26/17 11:01 Dose: 250 mls/hr Ceftaroline Fosamil 300 mg/ (Sodium Chloride) 100 mls @ 100 mls/hr IVPB Q12 [facility] Last Admin: 11/26/17 09:40 Dose: 100 mls/hr Insulin Detemir (Levemir) 6 units SC HS [facility] Last Admin: 11/25/17 22:37 Dose: Not Given Insulin Human Lispro (Humalog) 0 units SC ACHS RUIZ PRN Reason: Protocol Last Admin: 11/26/17 12:15 Dose: 2 u Ipratropium Edmonson (Atrovent) 0.5 mg IH RQID [facility] Last Admin: 11/26/17 11:01 Dose: 0.5 mg Lactobacillus Acidophilus (Bacid Acidophilus) 1 cap PO BID [facility] Last Admin: 11/26/17 09:42 Dose: 1 cap Levalbuterol HCl (Xopenex) 0.63 mg INH RQ4 PRN PRN Reason: Shortness of Breath Levalbuterol HCl (Xopenex) 0.63 mg INH RQID [facility] Last Admin: 11/26/17 11:01 Dose: 0.63 mg Levothyroxine Sodium (Synthroid) 50 mcg PO DAILY@0630 [facility] Last Admin: 11/26/17 05:54 Dose: 50 mcg Metoprolol Tartrate (Lopressor) 50 mg PO Q12 [facility] Last Admin: 11/26/17 09:42 Dose: 50 mg Metronidazole (Flagyl) 500 mg PO Q8 [facility] PRN Reason: Protocol Last Admin: 11/26/17 09:42 Dose: 500 mg Multivitamins/Minerals (Therapeutic-M Tab) 1 tab PO DAILY [facility] Last Admin: 11/26/17 09:43 Dose: 1 tab Sitagliptin Phosphate (Januvia) 100 mg PO DAILY [facility] Last Admin: 11/26/17 09:42 Dose: 100 mg - Labs Labs: 11/26/17 06:00 11/26/17 06:00
[2017-11-26] MEDS: Pantoprazole 40 mg EC Tab PO SCH (16:33)
[2017-11-26] MEDS: Insulin Detemir 100 Units/ml Inj SC SCH (21:39)
[2017-11-27] MEDS: Levothyroxine 50 MCG TAB PO SCH (05:44)
[2017-11-27] MEDS: Insulin Lispro (humaLOG) 100 Units/ml Inj SC SCH ×4 (06:31→21:55)
[2017-11-27] MEDS: Levalbuterol 0.63 MG/3 ML Inhal Soln UD INH SCH ×4 (07:37→19:09)
[2017-11-27] MEDS: Ipratropium 0.02% Inhal Soln (0.5 mg/2.5 ml) UD IH SCH ×4 (07:37→19:09)
[2017-11-27] MEDS: Acyclovir 5% OINT 15 APPLIC/15 GM EXT SCH ×3 (09:31→17:08)
[2017-11-27] MEDS: Pantoprazole 40 mg EC Tab PO SCH (09:31)
[2017-11-27] MEDS: Lactobacillus Acidophilus 500 MU Cap PO SCH ×2 (09:31→17:10)
[2017-11-27] MEDS: Multivitamin With Minerals Tab PO SCH (09:32)
[2017-11-27] MEDS: Cholecalciferol 1,000 INTLU TAB PO SCH (09:32)
[2017-11-27] MEDS: Proshield Plus GEL TOP PRN (09:33)
[2017-11-27] MEDS: Petrolatum UD PAK TOP SCH ×2 (09:34→17:10)
--- NOTE | 2017-11-27 11:02 | CP.PCM.CON ---
History of Present Illness - History of Present Illness History of Present Illness: 77 yr old f with medical history including A fib, CAD (CABG triple bypass), COPD , hypercholesterolemia, hypothyroidism, HTN, DM type 2, CHF, B Cell lymphoma who was diagnosed with MDS in 2016 patient transferred from the floor for further rehabilitation and medication. Patient developed acute kidney injury which has been improving and recoveg from that problem however she has persistent ponatremia which not responded very well to Samsca medical history including A fib, CAD (CABG triple bypass), COPD, hypercholesterolemia, hypothyroidism, HTN, DM type 2, CHF, B Cell lymphoma who was diagnosed with MDS in 2016 Review of Systems - Constitutional Constitutional: Anorexia - Cardiovascular Cardiovascular: Edema. absent: Acrocyanosis - Respiratory Respiratory: Dyspnea on Exertion - Gastrointestinal Gastrointestinal: absent: Abdominal Pain - Musculoskeletal Musculoskeletal: Abnormal Gait - Psychiatric Psychiatric: As Per HPI - Endocrine Endocrine: Fatigue - Hematologic/Lymphatic Hematologic: Easy Bleeding Past Patient History - Infectious Disease Hx of Infectious Diseases: None - Tetanus Immunizations Tetanus Immunization: Unknown - Past Medical History & Family History Past Medical History?: Yes Past Family History: Reviewed and not pertinent - Past Social History Smoking Status: Former Smoker Chewing Tobacco Use: No Cigar Use: No Alcohol: None Drugs: Denies Home Situation {Lives}: With Family Domestic Violence: Negative - CARDIAC Hx Cardiac Disorders: Yes Hx Hypercholesterolemia: Yes Hx Hypertension: Yes - PULMONARY Hx Chronic Obstructive Pulmonary Disease (COPD): Yes - NEUROLOGICAL Hx Neurological Disorder: No - HEENT Hx HEENT Problems: Yes (Hearing loss in the right ear.) - RENAL Hx Chronic Kidney Disease: Yes Other/Comment: NICOLE due to vanco(recent admission) - ENDOCRINE/METABOLIC Hx Diabetes Mellitus Type 2: Yes - HEMATOLOGICAL/ONCOLOGICAL Hx Anemia: Yes Hx Blood Transfusions: Yes Hx Cancer: Yes (b cell lymphoma) Hx Chemotherapy: Yes Other/Comment: myelodysplastic syndrome - INTEGUMENTARY Hx Dermatological Problems: No - MUSCULOSKELETAL/RHEUMATOLOGICAL Hx Falls: Yes - GASTROINTESTINAL Hx Gastritis: Yes - GENITOURINARY/GYNECOLOGICAL Hx Genitourinary Disorders: No Hx Incontinence: Yes - PSYCHIATRIC Hx Psychophysiologic Disorder: No Hx Substance Use: No - SURGICAL HISTORY Hx Coronary Artery Bypass Graft: Yes (2000) Hx Coronary Stent: Yes (PCI 2007 and 2010) Other/Comment: meg knee replacement - ANESTHESIA Hx Anesthesia: Yes Hx Anesthesia Reactions: No Hx Malignant Hyperthermia: No Has any member of the family had a problem w/ anesthesia?: Yes Meds Allergies/Adverse Reactions: Allergies Allergy/AdvReac Type Severity Reaction Status Date / Time vancomycin AdvReac Intermediate NAUSEA Verified 11/25/17 11:20 - Medications Medications: Current Medications Acetaminophen (Tylenol 650 Mg Supp) 650 mg [place] Q6 PRN PRN Reason: Fever >100.4 F Acyclovir (Zovirax 5% Oint) 1 applic EXT TID [facility] Last Admin: 11/27/17 09:31 Dose: 1 applic Allopurinol (Zyloprim) 100 mg PO DAILY [facility] Last Admin: 11/27/17 09:32 Dose: 100 mg Atorvastatin Calcium (Lipitor) 10 mg PO DAILY [facility] Last Admin: 11/27/17 09:32 Dose: 10 mg Cholecalciferol (Vitamin D) 1,000 intlu PO DAILY [facility] Last Admin: 11/27/17 09:32 Dose: 1,000 intlu Dextrose (Dextrose 50% Inj) 0 ml IV STAT PRN; Protocol PRN Reason: Hypoglycemia Protocol Dimethicone (Proshield Plus Skin Protectant) 1 applic TOP Q8 PRN PRN Reason: Rash Last Admin: 11/27/17 09:33 Dose: 1 applic Emollient Ointment (Vaseline Oint) 1 pkt TOP BID [facility] Last Admin: 11/27/17 09:34 Dose: 1 pkt Epoetin Rolo (Procrit) 40,000 unit SC WED [facility] Glucagon (Glucagen Diagnostic Kit) 0 mg IM STAT PRN; Protocol PRN Reason: Hypoglycemia Protocol Ceftaroline Fosamil 300 mg/ (Sodium Chloride) 100 mls @ 100 mls/hr IVPB Q12 [facility] Last Admin: 11/27/17 09:30 Dose: 100 mls/hr Moxifloxacin HCl (Avelox Iv 400mg/250ml Ns) 400 mg in 250 mls @ 250 mls/hr IVPB DAILY@1700 [facility] Insulin Detemir (Levemir) 6 units SC HS [facility] Last Admin: 11/26/17 21:39 Dose: 6 unit Insulin Human Lispro (Humalog) 0 units SC ACHS RUIZ PRN Reason: Protocol Last Admin: 11/27/17 06:31 Dose: 1 u Ipratropium Gerlach (Atrovent) 0.5 mg IH RQID [facility] Last Admin: 11/27/17 07:37 Dose: 0.5 mg Lactobacillus Acidophilus (Bacid Acidophilus) 1 cap PO BID [facility] Last Admin: 11/27/17 09:31 Dose: 1 cap Levalbuterol HCl (Xopenex) 0.63 mg INH RQ4 PRN PRN Reason: Shortness of Breath Levalbuterol HCl (Xopenex) 0.63 mg INH RQID [facility] Last Admin: 11/27/17 07:37 Dose: 0.63 mg Levothyroxine Sodium (Synthroid) 50 mcg PO DAILY@0630 [facility] Last Admin: 11/27/17 05:44 Dose: 50 mcg Metoprolol Tartrate (Lopressor) 50 mg PO Q12 [facility] Last Admin: 11/27/17 09:31 Dose: 50 mg Metronidazole (Flagyl) 500 mg PO Q8 [facility] PRN Reason: Protocol Last Admin: 11/27/17 09:31 Dose: 500 mg Multivitamins/Minerals (Therapeutic-M Tab) 1 tab PO DAILY [facility] Last Admin: 11/27/17 09:32 Dose: 1 tab Ondansetron HCl (Zofran Inj) 4 mg IVP Q4 PRN PRN Reason: Nausea/Vomiting Last Admin: 11/26/17 15:55 Dose: 4 mg Pantoprazole Sodium (Protonix Ec Tab) 40 mg PO DAILY [facility] Last Admin: 11/27/17 09:31 Dose: 40 mg Sitagliptin Phosphate (Januvia) 100 mg PO DAILY [facility] Last Admin: 11/27/17 09:31 Dose: 100 mg Physical Exam - Constitutional Appears: No Acute Distress - ENT Exam ENT Exam: Mucous Membranes Moist - Respiratory Exam Respiratory Exam: absent: Chest Wall Tenderness - Cardiovascular Exam Cardiovascular Exam: absent: Gallop, JVD, Rubs - GI/Abdominal Exam GI & Abdominal Exam: Normal Bowel Sounds. absent: Guarding - Extremities Exam Extremities exam: Negative for: calf tenderness - Back Exam Back exam: absent: CVA tenderness (L), CVA tenderness (R) - Neurological Exam Neurological exam: Alert - Psychiatric Exam Psychiatric exam: Normal Affect Results - Vital Signs Recent Vital Signs: Last Vital Signs Temp 97.0 F L 11/27/17 08:10 Pulse 102 H 11/27/17 09:31 Resp 18 11/27/17 08:10 BP 125/63 11/27/17 09:31 Pulse Ox 98 11/27/17 08:10 - Labs Result Diagrams: 11/26/17 06:00 11/26/17 06:00 Assessment & Plan (1) Hyponatremia Assessment and Plan: serum sodium keep dropping down with hyponatremia and not responding very well to Samsca We will give 30 mg and continue monitoring Again please check serum sodium not to rise more than 10 mEq in 24 hours Status: Acute
--- NOTE | 2017-11-27 13:20 | CP.PCM.PN ---
<Devyn Wells - Last Filed: 11/27/17 13:59> Subjective - Date & Time of Evaluation Date of Evaluation: 11/27/17 Time of Evaluation: 07:50 - Subjective Subjective: Patient evaluated and seen in TCU this morning during morning rounds. Patient lying in bed, Feels fatigued but no acute distress. Denies any SOB at rest. Still reports feeling weak and SOB with activity. Cough with sputum still present. Color of sputum improving gradually. Not able to do PT on consistent basis. Reports improvement in appetite. More so ever for liquid diet than solids. Vitals stable. BP 125/63, P 102, RR 18 and Spo2 98 on 2L nasal cannula. Pharynx is pink and moist w/o exudate. Few inspiratory medium rales present bilaterally, No audible wheezing. Breath sounds are significantly diminished bilaterally. S1, S2 present. HS distant and regular. Dependent edema posterior thigh (Right > left). Afebrile, Vitals stable, Clinically improving. Continue empiric Rx for bronchitis with ceftaroline and Moxifloxacin. Sputum culture pending. Leukocytosis improved(10.1), Sodium 131(Not responding well to Samsca) Continue with physical therapy. C/W other medications. Objective - Vital Signs/Intake and Output Vital Signs (last 24 hours): Temp Pulse Resp BP Pulse Ox 97.0 F L 102 H 18 125/63 98 11/27/17 08:10 11/27/17 09:31 11/27/17 08:10 11/27/17 09:31 11/27/17 08:10 - Medications Medications: Current Medications Acetaminophen (Tylenol 650 Mg Supp) 650 mg [place] Q6 PRN PRN Reason: Fever >100.4 F Acyclovir (Zovirax 5% Oint) 1 applic EXT TID [facility] Last Admin: 11/27/17 12:35 Dose: 1 applic Allopurinol (Zyloprim) 100 mg PO DAILY [facility] Last Admin: 11/27/17 09:32 Dose: 100 mg Atorvastatin Calcium (Lipitor) 10 mg PO DAILY [facility] Last Admin: 11/27/17 09:32 Dose: 10 mg Cholecalciferol (Vitamin D) 1,000 intlu PO DAILY [facility] Last Admin: 11/27/17 09:32 Dose: 1,000 intlu Dextrose (Dextrose 50% Inj) 0 ml IV STAT PRN; Protocol PRN Reason: Hypoglycemia Protocol Dimethicone (Proshield Plus Skin Protectant) 1 applic TOP Q8 PRN PRN Reason: Rash Last Admin: 11/27/17 09:33 Dose: 1 applic Emollient Ointment (Vaseline Oint) 1 pkt TOP BID [facility] Last Admin: 11/27/17 09:34 Dose: 1 pkt Epoetin Rolo (Procrit) 40,000 unit SC WED [facility] Glucagon (Glucagen Diagnostic Kit) 0 mg IM STAT PRN; Protocol PRN Reason: Hypoglycemia Protocol Ceftaroline Fosamil 300 mg/ (Sodium Chloride) 100 mls @ 100 mls/hr IVPB Q12 [facility] Last Admin: 11/27/17 09:30 Dose: 100 mls/hr Moxifloxacin HCl (Avelox Iv 400mg/250ml Ns) 400 mg in 250 mls @ 250 mls/hr IVPB DAILY@1700 [facility] Insulin Detemir (Levemir) 6 units SC HS [facility] Last Admin: 11/26/17 21:39 Dose: 6 unit Insulin Human Lispro (Humalog) 0 units SC ACHS [facility] PRN Reason: Protocol Last Admin: 11/27/17 12:16 Dose: 1 u Ipratropium [place] (Atrovent) 0.5 mg IH RQID [facility] Last Admin: 11/27/17 11:46 Dose: 0.5 mg Lactobacillus Acidophilus (Bacid Acidophilus) 1 cap PO BID [facility] Last Admin: 11/27/17 09:31 Dose: 1 cap Levalbuterol HCl (Xopenex) 0.63 mg INH RQ4 PRN PRN Reason: Shortness of Breath Levalbuterol HCl (Xopenex) 0.63 mg INH RQID [facility] Last Admin: 11/27/17 11:46 Dose: 0.63 mg Levothyroxine Sodium (Synthroid) 50 mcg PO DAILY@0630 [facility] Last Admin: 11/27/17 05:44 Dose: 50 mcg Metoprolol Tartrate (Lopressor) 50 mg PO Q12 [facility] Last Admin: 11/27/17 09:31 Dose: 50 mg Metronidazole (Flagyl) 500 mg PO Q8 [facility] PRN Reason: Protocol Last Admin: 11/27/17 09:31 Dose: 500 mg Multivitamins/Minerals (Therapeutic-M Tab) 1 tab PO DAILY [facility] Last Admin: 11/27/17 09:32 Dose: 1 tab Ondansetron HCl (Zofran Inj) 4 mg IVP Q4 PRN PRN Reason: Nausea/Vomiting Last Admin: 11/26/17 15:55 Dose: 4 mg Pantoprazole Sodium (Protonix Ec Tab) 40 mg PO DAILY [facility] Last Admin: 11/27/17 09:31 Dose: 40 mg Sitagliptin Phosphate (Januvia) 100 mg PO DAILY [facility] Last Admin: 11/27/17 09:31 Dose: 100 mg - Labs Labs: 11/26/17 06:00 11/26/17 06:00 <Houston Vazquez - Last Filed: 12/03/17 14:11> Subjective - Subjective Subjective: Seen and examined together with the residents on rounds. Physical findings and ancillary studies reviewed. Case was discussed and assessment/plan of care formulated. Entry made by the resident was reviewed and accurately reflects today's encounter. Objective - Vital Signs/Intake and Output Vital Signs (last 24 hours): Temp Pulse Resp BP Pulse Ox 97.2 F L 92 H 18 138/76 99 12/03/17 07:52 12/03/17 08:58 12/03/17 07:52 12/03/17 08:58 12/03/17 07:52 - Medications Medications: Current Medications Acetaminophen (Tylenol 650 Mg Supp) 650 mg [place] Q6 PRN PRN Reason: Fever >100.4 F Acyclovir (Zovirax 5% Oint) 1 applic EXT TID [facility] Last Admin: 12/03/17 12:30 Dose: 1 applic Allopurinol (Zyloprim) 100 mg PO DAILY [facility] Last Admin: 12/03/17 09:00 Dose: 100 mg Atorvastatin Calcium (Lipitor) 10 mg PO HS [facility] Last Admin: 11/28/17 21:33 Dose: 10 mg Benzonatate (Tessalon Perles) 200 mg PO TID PRN PRN Reason: Cough Last Admin: 12/03/17 03:33 Dose: 200 mg Cholecalciferol (Vitamin D) 1,000 intlu PO DAILY [facility] Last Admin: 12/03/17 08:59 Dose: 1,000 intlu Demeclocycline HCl (Declomycin) 300 mg PO BID [facility] PRN Reason: Protocol Stop: 12/04/17 23:59 Last Admin: 12/03/17 08:57 Dose: 300 mg Dextrose (Dextrose 50% Inj) 0 ml IV STAT PRN; Protocol PRN Reason: Hypoglycemia Protocol Dimethicone (Proshield Plus Skin Protectant) 1 applic TOP Q8 PRN PRN Reason: Rash Last Admin: 11/30/17 05:53 Dose: 1 applic Emollient Ointment (Vaseline Oint) 1 pkt TOP BID@0500,1700 [facility] Last Admin: 12/03/17 06:31 Dose: 1 pkt Epoetin Rolo (Procrit) 40,000 unit SC WED [facility] Last Admin: 11/29/17 10:43 Dose: 40,000 unit Furosemide (Lasix) 40 mg PO BID [facility] Last Admin: 12/03/17 08:58 Dose: 40 mg Glucagon (Glucagen Diagnostic Kit) 0 mg IM STAT PRN; Protocol PRN Reason: Hypoglycemia Protocol Guaifenesin (Robitussin) 200 mg PO Q6 PRN PRN Reason: Cough Last Admin: 11/30/17 11:19 Dose: 200 mg Piperacillin Sod/Tazobactam (Sod 2.25 gm/ Sodium Chloride) 100 mls @ 100 mls/ hr IVPB Q6 [facility] PRN Reason: Protocol Last Admin: 12/03/17 11:05 Dose: 100 mls/hr Cefepime HCl 1 gm/ Sodium (Chloride) 100 mls @ 100 mls/hr IVPB Q12 [facility] PRN Reason: Protocol Last Admin: 12/03/17 09:05 Dose: 100 mls/hr Insulin Detemir (Levemir) 6 units SC HS [facility] Last Admin: 12/02/17 21:21 Dose: 6 unit Insulin Human Lispro (Humalog) 0 units SC ACHS [facility] PRN Reason: Protocol Last Admin: 12/03/17 12:29 Dose: 1 u Ipratropium [place] (Atrovent) 0.5 mg IH RQID [facility] Last Admin: 12/03/17 11:44 Dose: 0.5 mg Lactobacillus Acidophilus (Bacid Acidophilus) 1 cap PO BID@1100,2100 [facility] Last Admin: 12/03/17 12:27 Dose: 1 cap Levalbuterol HCl (Xopenex) 0.63 mg INH RQ4 PRN PRN Reason: Shortness of Breath Last Admin: 11/29/17 23:24 Dose: 0.63 mg Levalbuterol HCl (Xopenex) 0.63 mg INH RQID [facility] Last Admin: 12/03/17 11:44 Dose: 0.63 mg Levothyroxine Sodium (Synthroid) 75 mcg PO DAILY@0630 [facility] Last Admin: 12/03/17 06:29 Dose: 75 mcg Magnesium Oxide (Mag-Ox) 400 mg PO BID [facility] Last Admin: 12/03/17 08:58 Dose: 400 mg Metoprolol Tartrate (Lopressor) 50 mg PO Q12 [facility] Last Admin: 12/03/17 08:58 Dose: 50 mg Multivitamins/Minerals (Therapeutic-M Tab) 1 tab PO DAILY [facility] Last Admin: 12/03/17 12:27 Dose: 1 tab Ondansetron HCl (Zofran Inj) 4 mg IVP Q4 PRN PRN Reason: Nausea/Vomiting Last Admin: 12/01/17 17:56 Dose: 4 mg Pantoprazole Sodium (Protonix Ec Tab) 40 mg PO DAILY [facility] Last Admin: 12/03/17 09:03 Dose: 40 mg Sitagliptin Phosphate (Januvia) 50 mg PO DAILY [facility] Last Admin: 12/03/17 08:57 Dose: 50 mg - Labs Labs: 12/01/17 06:20 12/02/17 05:30 Assessment and Plan (1) Acute exacerbation of chronic obstructive bronchitis Status: Acute
--- NOTE | 2017-11-27 14:55 | RAD ---
Date of service: 11/27/2017 PROCEDURE: CHEST RADIOGRAPH, 1 VIEW HISTORY: Follow-up COMPARISON: 11/22/2017. FINDINGS: The right MediPort terminates at the cavoatrial junction LUNGS: There is worsening airspace disease in both lower lobes. PLEURA: No pneumothorax. Worsening pleural effusions. CARDIOVASCULAR: The heart remains enlarged. Status post CABG. OSSEOUS STRUCTURES: No significant abnormalities. VISUALIZED UPPER ABDOMEN: Normal. OTHER FINDINGS: None. IMPRESSION: Worsening bilateral pleural effusions and lower lobe airspace disease which may represent atelectasis however superimposed pneumonia cannot be excluded.
[2017-11-27] MEDS: Moxifloxacin IV 400mg/250ml NS 400 MG/250 ML BAG IVPB SCH (17:07)
--- NOTE | 2017-11-27 19:41 | CP.PCM.PN ---
Subjective - Date & Time of Evaluation Date of Evaluation: 11/27/17 Time of Evaluation: 19:32 - Subjective Subjective: I D NOTE AFEBRILE CXR REVIEWED , TO EVALUATE HAVE DISCONTINUED TEFLARO STARTED ZOSYN Objective - Vital Signs/Intake and Output Vital Signs (last 24 hours): Temp Pulse Resp BP Pulse Ox 96.8 F L 111 H 20 115/89 100 11/27/17 15:46 11/27/17 15:46 11/27/17 15:46 11/27/17 15:46 11/27/17 15:46 - Medications Medications: Current Medications Acetaminophen (Tylenol 650 Mg Supp) 650 mg [place] Q6 PRN PRN Reason: Fever >100.4 F Acyclovir (Zovirax 5% Oint) 1 applic EXT TID [facility] Last Admin: 11/27/17 17:08 Dose: 1 applic Allopurinol (Zyloprim) 100 mg PO DAILY [facility] Last Admin: 11/27/17 09:32 Dose: 100 mg Atorvastatin Calcium (Lipitor) 10 mg PO DAILY [facility] Last Admin: 11/27/17 09:32 Dose: 10 mg Cholecalciferol (Vitamin D) 1,000 intlu PO DAILY [facility] Last Admin: 11/27/17 09:32 Dose: 1,000 intlu Dextrose (Dextrose 50% Inj) 0 ml IV STAT PRN; Protocol PRN Reason: Hypoglycemia Protocol Dimethicone (Proshield Plus Skin Protectant) 1 applic TOP Q8 PRN PRN Reason: Rash Last Admin: 11/27/17 09:33 Dose: 1 applic Emollient Ointment (Vaseline Oint) 1 pkt TOP BID [facility] Last Admin: 11/27/17 17:10 Dose: 1 pkt Epoetin Rolo (Procrit) 40,000 unit SC WED [facility] Glucagon (Glucagen Diagnostic Kit) 0 mg IM STAT PRN; Protocol PRN Reason: Hypoglycemia Protocol Moxifloxacin HCl (Avelox Iv 400mg/250ml Ns) 400 mg in 250 mls @ 250 mls/hr IVPB DAILY@1700 [facility] Last Admin: 11/27/17 17:07 Dose: 250 mls/hr Piperacillin Sod/Tazobactam (Sod 2.25 gm/ Sodium Chloride) 100 mls @ 100 mls/ hr IVPB Q6 [facility] PRN Reason: Protocol Insulin Detemir (Levemir) 6 units SC HS [facility] Last Admin: 11/26/17 21:39 Dose: 6 unit Insulin Human Lispro (Humalog) 0 units SC [facility] PRN Reason: Protocol Last Admin: 11/27/17 17:08 Dose: 2 u Ipratropium [place] (Atrovent) 0.5 mg IH RQID [facility] Last Admin: 11/27/17 19:09 Dose: 0.5 mg Lactobacillus Acidophilus (Bacid Acidophilus) 1 cap PO BID [facility] Last Admin: 11/27/17 17:10 Dose: 1 cap Levalbuterol HCl (Xopenex) 0.63 mg INH RQ4 PRN PRN Reason: Shortness of Breath Levalbuterol HCl (Xopenex) 0.63 mg INH RQID [facility] Last Admin: 11/27/17 19:09 Dose: 0.63 mg Levothyroxine Sodium (Synthroid) 50 mcg PO DAILY@0630 [facility] Last Admin: 11/27/17 05:44 Dose: 50 mcg Metoprolol Tartrate (Lopressor) 50 mg PO Q12 [facility] Last Admin: 11/27/17 09:31 Dose: 50 mg Metronidazole (Flagyl) 500 mg PO Q8 [facility] PRN Reason: Protocol Last Admin: 11/27/17 17:09 Dose: 500 mg Multivitamins/Minerals (Therapeutic-M Tab) 1 tab PO DAILY [facility] Last Admin: 11/27/17 09:32 Dose: 1 tab Ondansetron HCl (Zofran Inj) 4 mg IVP Q4 PRN PRN Reason: Nausea/Vomiting Last Admin: 11/26/17 15:55 Dose: 4 mg Pantoprazole Sodium (Protonix Ec Tab) 40 mg PO DAILY [facility] Last Admin: 11/27/17 09:31 Dose: 40 mg Sitagliptin Phosphate (Januvia) 100 mg PO DAILY [facility] Last Admin: 11/27/17 09:31 Dose: 100 mg - Labs Labs: 11/26/17 06:00 11/26/17 06:00
[2017-11-27 21:41] LABS: CALCIUM 8.1 mg/dL (8.4-10.2)
[2017-11-27] MEDS: Insulin Detemir 100 Units/ml Inj SC SCH (21:51)
[2017-11-28] MEDS: Levothyroxine 50 MCG TAB PO SCH (05:59)
[2017-11-28] MEDS: Levalbuterol 0.63 MG/3 ML Inhal Soln UD INH PRN ×2 (06:30→23:26)
[2017-11-28] MEDS: Insulin Lispro (humaLOG) 100 Units/ml Inj SC SCH ×4 (06:53→21:33)
[2017-11-28 06:54] LABS: CALCIUM 7.9 mg/dL (8.4-10.2)
[2017-11-28] MEDS: Ipratropium 0.02% Inhal Soln (0.5 mg/2.5 ml) UD IH SCH ×4 (07:26→19:46)
[2017-11-28] MEDS: Levalbuterol 0.63 MG/3 ML Inhal Soln UD INH SCH ×4 (07:27→19:47)
[2017-11-28] MEDS: Petrolatum UD PAK TOP SCH ×2 (08:18→16:30)
[2017-11-28] MEDS: Lactobacillus Acidophilus 500 MU Cap PO SCH ×2 (08:18→16:29)
[2017-11-28] MEDS: Acyclovir 5% OINT 15 APPLIC/15 GM EXT SCH ×3 (08:18→16:30)
[2017-11-28] MEDS: Pantoprazole 40 mg EC Tab PO SCH (08:20)
[2017-11-28] MEDS: Cholecalciferol 1,000 INTLU TAB PO SCH (08:20)
[2017-11-28] MEDS: Multivitamin With Minerals Tab PO SCH (08:20)
--- NOTE | 2017-11-28 11:25 | CP.PCM.PN ---
Subjective - Date & Time of Evaluation Date of Evaluation: 11/28/17 Time of Evaluation: 11:25 - Subjective Subjective: The patient was seen on rounds in the transitional care unit. She was lying in bed somewhat upright, mildly dyspneic at rest. Congested cough was noted, but was not productive. Dependent edema in both lower extremities continues to increase. No central or peripheral cyanosis noted. The pharynx is pink and mucous membranes moist. No exudate. The neck is supple and trachea midline. Dullness on percussion in both lower lobes posteriorly. Scattered sonorous rhonchi were appreciated in both lower lobes with medium rales. Some bronchial breathing and egophony was noted in the left lower lobe posteriorly. No audible wheezing. Heart sounds are distant and the rhythm is irregular. Apparent increasing fluid overload with bilateral pleural effusions. Electrolyte imbalance with hyponatremia. CPD stage III. B-cell lymphoma. COPD. CT thorax was requested to evaluate fluid and/or pneumonia. WILL discuss further with infectious disease regarding antibiotic therapy. Objective - Vital Signs/Intake and Output Vital Signs (last 24 hours): Temp Pulse Resp BP Pulse Ox 98.4 F 104 H 20 131/60 97 11/28/17 07:38 11/28/17 08:19 11/28/17 07:38 11/28/17 08:19 11/28/17 07:38 - Medications Medications: Current Medications Acetaminophen (Tylenol 650 Mg Supp) 650 mg [place] Q6 PRN PRN Reason: Fever >100.4 F Acyclovir (Zovirax 5% Oint) 1 applic EXT TID [facility] Last Admin: 11/28/17 08:18 Dose: 1 applic Allopurinol (Zyloprim) 100 mg PO DAILY [facility] Last Admin: 11/28/17 08:20 Dose: 100 mg Atorvastatin Calcium (Lipitor) 10 mg PO HS [facility] Cholecalciferol (Vitamin D) 1,000 intlu PO DAILY [facility] Last Admin: 11/28/17 08:20 Dose: 1,000 intlu Dextrose (Dextrose 50% Inj) 0 ml IV STAT PRN; Protocol PRN Reason: Hypoglycemia Protocol Dimethicone (Proshield Plus Skin Protectant) 1 applic TOP Q8 PRN PRN Reason: Rash Last Admin: 11/27/17 09:33 Dose: 1 applic Emollient Ointment (Vaseline Oint) 1 pkt TOP BID [facility] Last Admin: 11/28/17 08:18 Dose: 1 pkt Epoetin Rolo (Procrit) 40,000 unit SC WED [facility] Glucagon (Glucagen Diagnostic Kit) 0 mg IM STAT PRN; Protocol PRN Reason: Hypoglycemia Protocol Moxifloxacin HCl (Avelox Iv 400mg/250ml Ns) 400 mg in 250 mls @ 250 mls/hr IVPB DAILY@1700 [facility] Last Admin: 11/27/17 17:07 Dose: 250 mls/hr Piperacillin Sod/Tazobactam (Sod 2.25 gm/ Sodium Chloride) 100 mls @ 100 mls/ hr IVPB Q6 [facility] PRN Reason: Protocol Last Admin: 11/28/17 10:34 Dose: 100 mls/hr Insulin Detemir (Levemir) 6 units SC HS [facility] Last Admin: 11/27/17 21:51 Dose: 6 unit Insulin Human Lispro (Humalog) 0 units SC ACHS [facility] PRN Reason: Protocol Last Admin: 11/28/17 06:53 Dose: 2 u Ipratropium [place] (Atrovent) 0.5 mg IH RQID [facility] Last Admin: 11/28/17 11:17 Dose: Not Given Lactobacillus Acidophilus (Bacid Acidophilus) 1 cap PO BID [facility] Last Admin: 11/28/17 08:18 Dose: 1 cap Levalbuterol HCl (Xopenex) 0.63 mg INH RQ4 PRN PRN Reason: Shortness of Breath Last Admin: 11/28/17 06:30 Dose: 0.63 mg Levalbuterol HCl (Xopenex) 0.63 mg INH RQID [facility] Last Admin: 11/28/17 11:17 Dose: Not Given Levothyroxine Sodium (Synthroid) 50 mcg PO DAILY@0630 [facility] Last Admin: 11/28/17 05:59 Dose: 50 mcg Metoprolol Tartrate (Lopressor) 50 mg PO Q12 [facility] Last Admin: 11/28/17 08:19 Dose: 50 mg Metronidazole (Flagyl) 500 mg PO Q8 [facility] PRN Reason: Protocol Last Admin: 11/28/17 08:18 Dose: 500 mg Multivitamins/Minerals (Therapeutic-M Tab) 1 tab PO DAILY [facility] Last Admin: 11/28/17 08:20 Dose: 1 tab Ondansetron HCl (Zofran Inj) 4 mg IVP Q4 PRN PRN Reason: Nausea/Vomiting Last Admin: 11/28/17 02:29 Dose: 4 mg Pantoprazole Sodium (Protonix Ec Tab) 40 mg PO DAILY [facility] Last Admin: 11/28/17 08:20 Dose: 40 mg Sitagliptin Phosphate (Januvia) 100 mg PO DAILY [facility] Last Admin: 11/28/17 08:19 Dose: 100 mg - Labs Labs: 11/26/17 06:00 11/28/17 05:40 Assessment and Plan (1) Acute exacerbation of chronic obstructive bronchitis Status: Acute
--- NOTE | 2017-11-28 12:18 | CP.PCM.PN ---
Subjective - Date & Time of Evaluation Date of Evaluation: 11/28/17 Time of Evaluation: 12:16 - Subjective Subjective: patient sitting up in the chair awake no nausea no vomiting Objective - Vital Signs/Intake and Output Vital Signs (last 24 hours): Temp Pulse Resp BP Pulse Ox 98.4 F 104 H 20 131/60 97 11/28/17 07:38 11/28/17 08:19 11/28/17 07:38 11/28/17 08:19 11/28/17 07:38 - Medications Medications: Current Medications Acetaminophen (Tylenol 650 Mg Supp) 650 mg [place] Q6 PRN PRN Reason: Fever >100.4 F Acyclovir (Zovirax 5% Oint) 1 applic EXT TID [facility] Last Admin: 11/28/17 12:03 Dose: 1 applic Allopurinol (Zyloprim) 100 mg PO DAILY [facility] Last Admin: 11/28/17 08:20 Dose: 100 mg Atorvastatin Calcium (Lipitor) 10 mg PO [facility] Cholecalciferol (Vitamin D) 1,000 intlu PO DAILY [facility] Last Admin: 11/28/17 08:20 Dose: 1,000 intlu Dextrose (Dextrose 50% Inj) 0 ml IV STAT PRN; Protocol PRN Reason: Hypoglycemia Protocol Dimethicone (Proshield Plus Skin Protectant) 1 applic TOP Q8 PRN PRN Reason: Rash Last Admin: 11/27/17 09:33 Dose: 1 applic Emollient Ointment (Vaseline Oint) 1 pkt TOP BID [facility] Last Admin: 11/28/17 08:18 Dose: 1 pkt Epoetin Rolo (Procrit) 40,000 unit SC WED [facility] Glucagon (Glucagen Diagnostic Kit) 0 mg IM STAT PRN; Protocol PRN Reason: Hypoglycemia Protocol Moxifloxacin HCl (Avelox Iv 400mg/250ml Ns) 400 mg in 250 mls @ 250 mls/hr IVPB DAILY@1700 [facility] Last Admin: 11/27/17 17:07 Dose: 250 mls/hr Piperacillin Sod/Tazobactam (Sod 2.25 gm/ Sodium Chloride) 100 mls @ 100 mls/ hr IVPB Q6 [facility] PRN Reason: Protocol Last Admin: 11/28/17 10:34 Dose: 100 mls/hr Insulin Detemir (Levemir) 6 units SC [facility] Last Admin: 11/27/17 21:51 Dose: 6 unit Insulin Human Lispro (Humalog) 0 units SC ACHS [facility] PRN Reason: Protocol Last Admin: 11/28/17 12:02 Dose: 1 u Ipratropium [place] (Atrovent) 0.5 mg IH RQID [facility] Last Admin: 11/28/17 11:17 Dose: Not Given Lactobacillus Acidophilus (Bacid Acidophilus) 1 cap PO BID [facility] Last Admin: 11/28/17 08:18 Dose: 1 cap Levalbuterol HCl (Xopenex) 0.63 mg INH RQ4 PRN PRN Reason: Shortness of Breath Last Admin: 11/28/17 06:30 Dose: 0.63 mg Levalbuterol HCl (Xopenex) 0.63 mg INH RQID [facility] Last Admin: 11/28/17 11:17 Dose: Not Given Levothyroxine Sodium (Synthroid) 50 mcg PO DAILY@0630 [facility] Last Admin: 11/28/17 05:59 Dose: 50 mcg Metoprolol Tartrate (Lopressor) 50 mg PO Q12 [facility] Last Admin: 11/28/17 08:19 Dose: 50 mg Metronidazole (Flagyl) 500 mg PO Q8 [facility] PRN Reason: Protocol Last Admin: 11/28/17 08:18 Dose: 500 mg Multivitamins/Minerals (Therapeutic-M Tab) 1 tab PO DAILY [facility] Last Admin: 11/28/17 08:20 Dose: 1 tab Ondansetron HCl (Zofran Inj) 4 mg IVP Q4 PRN PRN Reason: Nausea/Vomiting Last Admin: 11/28/17 02:29 Dose: 4 mg Pantoprazole Sodium (Protonix Ec Tab) 40 mg PO DAILY [facility] Last Admin: 11/28/17 08:20 Dose: 40 mg Sitagliptin Phosphate (Januvia) 100 mg PO DAILY [facility] Last Admin: 11/28/17 08:19 Dose: 100 mg - Labs Labs: 11/26/17 06:00 11/28/17 05:40 - Constitutional Appears: No Acute Distress - ENT Exam ENT Exam: Mucous Membranes Moist - Respiratory Exam Respiratory Exam: NORMAL BREATHING PATTERN. absent: Chest Wall Tenderness - Cardiovascular Exam Cardiovascular Exam: absent: Rubs - GI/Abdominal Exam GI & Abdominal Exam: Soft, Normal Bowel Sounds - Extremities Exam Extremities Exam: absent: Calf Tenderness - Back Exam Back Exam: absent: CVA tenderness (L), CVA tenderness (R) - Neurological Exam Neurological Exam: Alert Assessment and Plan (1) Hyponatremia Assessment & Plan: hyponatremia. Patient is not responding to the medication Samsca very well therefore we will add Demeclocycline and to monitor liver function and keep fluid restriction and see what happens Status: Acute
--- NOTE | 2017-11-28 14:25 | CP.PCM.PN ---
Subjective - Date & Time of Evaluation Date of Evaluation: 11/28/17 Time of Evaluation: 14:00 - Subjective Subjective: Patient seen and examined. feeling not well , today, weak , tired with no energy . Dyspneic at rest with few coughing spells and minimal production. Afebrile Denies any nausea ore vomiting Hemodynamically stable Na 130 WBC 10 Hgb 9.5 Ca 7.9 Objective - Vital Signs/Intake and Output Vital Signs (last 24 hours): Temp Pulse Resp BP Pulse Ox 98.4 F 104 H 20 131/60 97 11/28/17 07:38 11/28/17 08:19 11/28/17 07:38 11/28/17 08:19 11/28/17 07:38 - Medications Medications: Current Medications Acetaminophen (Tylenol 650 Mg Supp) 650 mg [place] Q6 PRN PRN Reason: Fever >100.4 F Acyclovir (Zovirax 5% Oint) 1 applic EXT TID [facility] Last Admin: 11/28/17 12:03 Dose: 1 applic Allopurinol (Zyloprim) 100 mg PO DAILY [facility] Last Admin: 11/28/17 08:20 Dose: 100 mg Atorvastatin Calcium (Lipitor) 10 mg PO HS [facility] Cholecalciferol (Vitamin D) 1,000 intlu PO DAILY [facility] Last Admin: 11/28/17 08:20 Dose: 1,000 intlu Demeclocycline HCl (Declomycin) 300 mg PO BID [facility] PRN Reason: Protocol Stop: 12/04/17 23:59 Dextrose (Dextrose 50% Inj) 0 ml IV STAT PRN; Protocol PRN Reason: Hypoglycemia Protocol Dimethicone (Proshield Plus Skin Protectant) 1 applic TOP Q8 PRN PRN Reason: Rash Last Admin: 11/27/17 09:33 Dose: 1 applic Emollient Ointment (Vaseline Oint) 1 pkt TOP BID@0500,1700 [facility] Epoetin Rolo (Procrit) 40,000 unit SC WED [facility] Glucagon (Glucagen Diagnostic Kit) 0 mg IM STAT PRN; Protocol PRN Reason: Hypoglycemia Protocol Moxifloxacin HCl (Avelox Iv 400mg/250ml Ns) 400 mg in 250 mls @ 250 mls/hr IVPB DAILY@1700 [facility] Last Admin: 11/27/17 17:07 Dose: 250 mls/hr Piperacillin Sod/Tazobactam (Sod 2.25 gm/ Sodium Chloride) 100 mls @ 100 mls/ hr IVPB Q6 [facility] PRN Reason: Protocol Last Admin: 11/28/17 10:34 Dose: 100 mls/hr Insulin Detemir (Levemir) 6 units SC HS [facility] Last Admin: 11/27/17 21:51 Dose: 6 unit Insulin Human Lispro (Humalog) 0 units SC ACHS [facility] PRN Reason: Protocol Last Admin: 11/28/17 12:02 Dose: 1 u Ipratropium [place] (Atrovent) 0.5 mg IH RQID [facility] Last Admin: 11/28/17 11:17 Dose: Not Given Lactobacillus Acidophilus (Bacid Acidophilus) 1 cap PO BID [facility] Last Admin: 11/28/17 08:18 Dose: 1 cap Levalbuterol HCl (Xopenex) 0.63 mg INH RQ4 PRN PRN Reason: Shortness of Breath Last Admin: 11/28/17 06:30 Dose: 0.63 mg Levalbuterol HCl (Xopenex) 0.63 mg INH RQID [facility] Last Admin: 11/28/17 11:17 Dose: Not Given Levothyroxine Sodium (Synthroid) 50 mcg PO DAILY@0630 [facility] Last Admin: 11/28/17 05:59 Dose: 50 mcg Metoprolol Tartrate (Lopressor) 50 mg PO Q12 [facility] Last Admin: 11/28/17 08:19 Dose: 50 mg Metronidazole (Flagyl) 500 mg PO Q8 [facility] PRN Reason: Protocol Last Admin: 11/28/17 08:18 Dose: 500 mg Multivitamins/Minerals (Therapeutic-M Tab) 1 tab PO DAILY [facility] Last Admin: 11/28/17 08:20 Dose: 1 tab Ondansetron HCl (Zofran Inj) 4 mg IVP Q4 PRN PRN Reason: Nausea/Vomiting Last Admin: 11/28/17 02:29 Dose: 4 mg Pantoprazole Sodium (Protonix Ec Tab) 40 mg PO DAILY [facility] Last Admin: 11/28/17 08:20 Dose: 40 mg Sitagliptin Phosphate (Januvia) 100 mg PO DAILY [facility] Last Admin: 11/28/17 08:19 Dose: 100 mg - Labs Labs: 11/26/17 06:00 11/28/17 05:40 - Constitutional Appears: Chronically Ill, Other (weak , tired . mildly dyspneic ) - Head Exam Head Exam: ATRAUMATIC, NORMAL INSPECTION, NORMOCEPHALIC - ENT Exam ENT Exam: Mucous Membranes Dry Additional comments: upper and lower lips mouth sores - Neck Exam Neck Exam: Normal Inspection - Respiratory Exam Respiratory Exam: Decreased Breath Sounds (bibasilar ), Rales. absent: Accessory Muscle Use, Wheezes - Cardiovascular Exam Cardiovascular Exam: Irregular Rhythm. absent: JVD - GI/Abdominal Exam GI & Abdominal Exam: Soft, Normal Bowel Sounds. absent: Distended, Guarding, Rebound - Rectal Exam Rectal Exam: Deferred - Extremities Exam Extremities Exam: Pedal Edema (1 +bilaterally ) - Neurological Exam Neurological Exam: Alert, Awake, CN II-XII Intact - Psychiatric Exam Psychiatric exam: Flat Affect - Skin Skin Exam: Dry, Pallor, Warm Assessment and Plan - Assessment and Plan (Free Text) Assessment: 77 yr old female with PMHx of A fib, CAD (CABG triple bypass), COPD, hypercholesterolemia, hypothyroidism, HTN, DM type 2, CHF, MDS, B Cell lymphoma s/p recent Chemotherapy, was admitted for Pancytopenia and Sepsis due to Pneumonia. She was started on IV antibiotics, IVF hydration and Infectious Disease specialist and Pulmonary were consulted . She was placed on IV Teflaro and Avelox. Patient was also Pancytopenic on admission and Hematology was consulted .Patient received PRBC transfusion and Granix. Patients symptoms improved however , patient was very deconditioned and was transferred to TCU for Physical therapy and to continuation of IV antibiotics . Pt also developed C diff Colitis and was started on PO Flagyl. At present she is afebrile ,still has cough but better , diarrhea resolved, dyspneic. 1. Sepsis 2/2 LLL Bacterial Pneumonia , improving ID on consult teflaro changed to Zosyn IV . Continue Moxifloxacin CXR showed bilateral lower lobe infiltrates and effusion pulmonary consult appreciated Will check CT chest to better evaluate infiltrates 2. B-cell lymphoma / MDS (myelodysplastic syndrome) Plan for the 2nd cycle of chemotherapy this week ( Mon) by Dr Luz Nunes Monitor CBC 3. Pancytopenia sec to Chemotherapy improved with PRBC transfusion and Granix Plt 82 K Hgb 9.5 WBC 10 Hematology on consult 4. Chronic a-fib Continue current management ,Metoprolol 75mg po BID. Xarelto on hold due to thrombocytopenia 5. COPD chronic cont Atrovent and Xopenex pulmonary on consult Continue IV antibiotics Check Ct chest 6. Hyponatremia Na [address] Allen consult received Tolvaptan and started on Demeclocycline today repeat BMP in AM 7.Hypothyroid Continue home medication: Levothyroxine 50mcg daily. Check TSH, T3, T4 8. CKD stage III stable 9. Physical Deconditioning PT/OT consulted Continue as tolerated 10. C diff Colitis cont PO Flagyl diarrhea resolved 11.DM On januvia and levemir Accuchecks 12. Pseudohypocalcemia check albumin in AM 13.DVT prophylaxis Patient was on Xarelto but stopped due to thrombocytopenia SCD only for now
[2017-11-28] MEDS: Moxifloxacin IV 400mg/250ml NS 400 MG/250 ML BAG IVPB SCH (16:29)
--- NOTE | 2017-11-28 19:09 | CP.PCM.PN ---
Subjective - Date & Time of Evaluation Date of Evaluation: 11/28/17 Time of Evaluation: 19:00 - Subjective Subjective: i d note CTSCAN DISCUSSED c Pulmonary HAS GRAM NEG RODS IN SPUTUM,ID IS PENDING WILL CONTINUE PRESENT THERAPY AND RE EVALUATE TOMORROW. CHEMOTHERAPY HAS BEEN HELD STILL IS SOB,ON FLUID RESTRICTIONS NA COTINUES TO BE LOW HAS INCREASED PERIPHERAL EDEMA,DOES SHE NEFFD DIURETICS WILL HAVE CARDIOLOGY SEE (COSTOMIRIS COVERING FOR DAMLE) Objective - Vital Signs/Intake and Output Vital Signs (last 24 hours): Temp Pulse Resp BP Pulse Ox 98.8 F 99 H 20 102/65 97 11/28/17 15:45 11/28/17 15:45 11/28/17 15:45 11/28/17 15:45 11/28/17 15:45 - Medications Medications: Current Medications Acetaminophen (Tylenol 650 Mg Supp) 650 mg [place] Q6 PRN PRN Reason: Fever >100.4 F Acyclovir (Zovirax 5% Oint) 1 applic EXT TID [facility] Last Admin: 11/28/17 16:30 Dose: 1 applic Allopurinol (Zyloprim) 100 mg PO DAILY [facility] Last Admin: 11/28/17 08:20 Dose: 100 mg Atorvastatin Calcium (Lipitor) 10 mg PO HS [facility] Cholecalciferol (Vitamin D) 1,000 intlu PO DAILY [facility] Last Admin: 11/28/17 08:20 Dose: 1,000 intlu Demeclocycline HCl (Declomycin) 300 mg PO BID [facility] PRN Reason: Protocol Stop: 12/04/17 23:59 Last Admin: 11/28/17 16:29 Dose: 300 mg Dextrose (Dextrose 50% Inj) 0 ml IV STAT PRN; Protocol PRN Reason: Hypoglycemia Protocol Dimethicone (Proshield Plus Skin Protectant) 1 applic TOP Q8 PRN PRN Reason: Rash Last Admin: 11/27/17 09:33 Dose: 1 applic Emollient Ointment (Vaseline Oint) 1 pkt TOP BID@0500,1700 [facility] Last Admin: 11/28/17 16:30 Dose: 1 pkt Epoetin Rolo (Procrit) 40,000 unit SC WED [facility] Glucagon (Glucagen Diagnostic Kit) 0 mg IM STAT PRN; Protocol PRN Reason: Hypoglycemia Protocol Moxifloxacin HCl (Avelox Iv 400mg/250ml Ns) 400 mg in 250 mls @ 250 mls/hr IVPB DAILY@1700 [facility] Last Admin: 11/28/17 16:29 Dose: 250 mls/hr Piperacillin Sod/Tazobactam (Sod 2.25 gm/ Sodium Chloride) 100 mls @ 100 mls/ hr IVPB Q6 [facility] PRN Reason: Protocol Last Admin: 11/28/17 16:28 Dose: 100 mls/hr Insulin Detemir (Levemir) 6 units SC HS [facility] Last Admin: 11/27/17 21:51 Dose: 6 unit Insulin Human Lispro (Humalog) 0 units SC ACHS [facility] PRN Reason: Protocol Last Admin: 11/28/17 16:20 Dose: Not Given Ipratropium [place] (Atrovent) 0.5 mg IH RQID [facility] Last Admin: 11/28/17 15:41 Dose: 0.5 mg Lactobacillus Acidophilus (Bacid Acidophilus) 1 cap PO BID [facility] Last Admin: 11/28/17 16:29 Dose: 1 cap Levalbuterol HCl (Xopenex) 0.63 mg INH RQ4 PRN PRN Reason: Shortness of Breath Last Admin: 11/28/17 06:30 Dose: 0.63 mg Levalbuterol HCl (Xopenex) 0.63 mg INH RQID [facility] Last Admin: 11/28/17 15:41 Dose: 0.63 mg Levothyroxine Sodium (Synthroid) 50 mcg PO DAILY@0630 [facility] Last Admin: 11/28/17 05:59 Dose: 50 mcg Metoprolol Tartrate (Lopressor) 50 mg PO Q12 [facility] Last Admin: 11/28/17 08:19 Dose: 50 mg Metronidazole (Flagyl) 500 mg PO Q8 [facility] PRN Reason: Protocol Last Admin: 11/28/17 16:30 Dose: 500 mg Multivitamins/Minerals (Therapeutic-M Tab) 1 tab PO DAILY [facility] Last Admin: 11/28/17 08:20 Dose: 1 tab Ondansetron HCl (Zofran Inj) 4 mg IVP Q4 PRN PRN Reason: Nausea/Vomiting Last Admin: 11/28/17 02:29 Dose: 4 mg Pantoprazole Sodium (Protonix Ec Tab) 40 mg PO DAILY [facility] Last Admin: 11/28/17 08:20 Dose: 40 mg Sitagliptin Phosphate (Januvia) 100 mg PO DAILY [facility] Last Admin: 11/28/17 08:19 Dose: 100 mg - Labs Labs: 11/26/17 06:00 11/28/17 05:40
[2017-11-28] MEDS: Insulin Detemir 100 Units/ml Inj SC SCH (21:34)
--- NOTE | 2017-11-28 22:04 | CP.PCM.PN ---
Subjective - Date & Time of Evaluation Date of Evaluation: 11/28/17 Time of Evaluation: 20:00 - Subjective Subjective: Covering Dr. Nunes Has some shortness of breath, cough +edema MDS and Marginal zone lymphoma - Planned rituximab infusion has been held due to active infection; to be rescheduled for next week if clear of infection - no significant cytopenias to warrant growth factor/transfusion support Objective - Vital Signs/Intake and Output Vital Signs (last 24 hours): Temp Pulse Resp BP Pulse Ox 97.2 F L 105 H 20 115/61 98 11/28/17 20:07 11/28/17 21:33 11/28/17 20:07 11/28/17 21:33 11/28/17 20:07 - Medications Medications: Current Medications Acetaminophen (Tylenol 650 Mg Supp) 650 mg [place] Q6 PRN PRN Reason: Fever >100.4 F Acyclovir (Zovirax 5% Oint) 1 applic EXT TID [facility] Last Admin: 11/28/17 16:30 Dose: 1 applic Allopurinol (Zyloprim) 100 mg PO DAILY [facility] Last Admin: 11/28/17 08:20 Dose: 100 mg Atorvastatin Calcium (Lipitor) 10 mg PO HS [facility] Last Admin: 11/28/17 21:33 Dose: 10 mg Cholecalciferol (Vitamin D) 1,000 intlu PO DAILY [facility] Last Admin: 11/28/17 08:20 Dose: 1,000 intlu Demeclocycline HCl (Declomycin) 300 mg PO BID [facility] PRN Reason: Protocol Stop: 12/04/17 23:59 Last Admin: 11/28/17 16:29 Dose: 300 mg Dextrose (Dextrose 50% Inj) 0 ml IV STAT PRN; Protocol PRN Reason: Hypoglycemia Protocol Dimethicone (Proshield Plus Skin Protectant) 1 applic TOP Q8 PRN PRN Reason: Rash Last Admin: 11/27/17 09:33 Dose: 1 applic Emollient Ointment (Vaseline Oint) 1 pkt TOP BID@0500,1700 [facility] Last Admin: 11/28/17 16:30 Dose: 1 pkt Epoetin Rolo (Procrit) 40,000 unit SC WED [facility] Glucagon (Glucagen Diagnostic Kit) 0 mg IM STAT PRN; Protocol PRN Reason: Hypoglycemia Protocol Moxifloxacin HCl (Avelox Iv 400mg/250ml Ns) 400 mg in 250 mls @ 250 mls/hr IVPB DAILY@1700 [facility] Last Admin: 11/28/17 16:29 Dose: 250 mls/hr Piperacillin Sod/Tazobactam (Sod 2.25 gm/ Sodium Chloride) 100 mls @ 100 mls/ hr IVPB Q6 [facility] PRN Reason: Protocol Last Admin: 11/28/17 21:35 Dose: 100 mls/hr Insulin Detemir (Levemir) 6 units SC HS [facility] Last Admin: 11/28/17 21:34 Dose: 6 unit Insulin Human Lispro (Humalog) 0 units SC ACHS [facility] PRN Reason: Protocol Last Admin: 11/28/17 21:33 Dose: Not Given Ipratropium [place] (Atrovent) 0.5 mg IH RQID [facility] Last Admin: 11/28/17 19:46 Dose: 0.5 mg Lactobacillus Acidophilus (Bacid Acidophilus) 1 cap PO BID [facility] Last Admin: 11/28/17 16:29 Dose: 1 cap Levalbuterol HCl (Xopenex) 0.63 mg INH RQ4 PRN PRN Reason: Shortness of Breath Last Admin: 11/28/17 06:30 Dose: 0.63 mg Levalbuterol HCl (Xopenex) 0.63 mg INH RQID [facility] Last Admin: 11/28/17 19:47 Dose: 0.63 mg Levothyroxine Sodium (Synthroid) 50 mcg PO DAILY@0630 [facility] Last Admin: 11/28/17 05:59 Dose: 50 mcg Metoprolol Tartrate (Lopressor) 50 mg PO Q12 [facility] Last Admin: 11/28/17 21:33 Dose: 50 mg Metronidazole (Flagyl) 500 mg PO Q8 [facility] PRN Reason: Protocol Last Admin: 11/28/17 16:30 Dose: 500 mg Multivitamins/Minerals (Therapeutic-M Tab) 1 tab PO DAILY [facility] Last Admin: 11/28/17 08:20 Dose: 1 tab Ondansetron HCl (Zofran Inj) 4 mg IVP Q4 PRN PRN Reason: Nausea/Vomiting Last Admin: 11/28/17 02:29 Dose: 4 mg Pantoprazole Sodium (Protonix Ec Tab) 40 mg PO DAILY [facility] Last Admin: 11/28/17 08:20 Dose: 40 mg Sitagliptin Phosphate (Januvia) 100 mg PO DAILY [facility] Last Admin: 11/28/17 08:19 Dose: 100 mg - Labs Labs: 11/26/17 06:00 11/28/17 05:40 - Head Exam Head Exam: ATRAUMATIC - Eye Exam Eye Exam: Normal appearance - ENT Exam ENT Exam: Mucous Membranes Dry - Respiratory Exam Respiratory Exam: Decreased Breath Sounds - Cardiovascular Exam Cardiovascular Exam: +S1, +S2 - GI/Abdominal Exam GI & Abdominal Exam: Normal Bowel Sounds - Extremities Exam Extremities Exam: Pedal Edema Assessment and Plan (1) Marginal zone B-cell lymphoma Status: Acute (2) MDS (myelodysplastic syndrome) Status: Chronic
[2017-11-29] MEDS: Petrolatum UD PAK TOP SCH ×2 (04:37→17:13)
[2017-11-29] MEDS: guaiFENesin 200 mg/10 ml Syrup UD PO PRN ×2 (05:36→21:19)
[2017-11-29] MEDS: Levothyroxine 50 MCG TAB PO SCH (05:36)
[2017-11-29] MEDS: Insulin Lispro (humaLOG) 100 Units/ml Inj SC SCH ×4 (06:46→21:17)
[2017-11-29 06:50] LABS: HEMOGLOBIN 9.1 g/dL (12.0-16.0); MEAN CELL VOLUME 86.5 fl (81.0-99.0); MEAN CORPUSCULAR HEMOGLOBIN 28.2 pg (27.0-31.0); MEAN CORPUSCULAR HGB CONC 32.7 g/dL (33.0-37.0); RBC 3.22 Mil/uL (3.80-5.20); RED CELL DISTRIBUTION WIDTH 24.8 % (11.5-14.5); WHITE BLOOD COUNT 6.2 K/uL (4.8-10.8)
[2017-11-29 07:27] LABS: ALB/GLOB RATIO 1.2 (1.0-2.1); ALBUMIN 2.2 g/dL (3.5-5.0); CALCIUM 7.8 mg/dL (8.4-10.2)
[2017-11-29] MEDS: Ipratropium 0.02% Inhal Soln (0.5 mg/2.5 ml) UD IH SCH ×4 (07:31→19:04)
[2017-11-29] MEDS: Levalbuterol 0.63 MG/3 ML Inhal Soln UD INH SCH ×4 (07:31→19:04)
[2017-11-29] MEDS: Lactobacillus Acidophilus 500 MU Cap PO SCH ×2 (08:57→17:11)
[2017-11-29] MEDS: Pantoprazole 40 mg EC Tab PO SCH (08:58)
[2017-11-29] MEDS: Multivitamin With Minerals Tab PO SCH (08:58)
[2017-11-29] MEDS: Cholecalciferol 1,000 INTLU TAB PO SCH (08:58)
[2017-11-29] MEDS: Acyclovir 5% OINT 15 APPLIC/15 GM EXT SCH ×3 (08:59→17:12)
[2017-11-29] MEDS ORDERED: Epoetin Alfa 40000 UNIT/ml Inj SC SCH (09:00)
--- NOTE | 2017-11-29 10:07 | CP.PCM.PN ---
Subjective - Date & Time of Evaluation Date of Evaluation: 11/29/17 Time of Evaluation: 10:05 - Subjective Subjective: Patient awake in bed I'm not sure if she is doing fluid restriction and still seen a lot of fluid around the table Objective - Vital Signs/Intake and Output Vital Signs (last 24 hours): Temp Pulse Resp BP Pulse Ox 97.2 F L 102 H 20 108/66 100 11/29/17 08:07 11/29/17 08:58 11/29/17 08:07 11/29/17 08:58 11/29/17 08:07 - Medications Medications: Current Medications Acetaminophen (Tylenol 650 Mg Supp) 650 mg [place] Q6 PRN PRN Reason: Fever >100.4 F Acyclovir (Zovirax 5% Oint) 1 applic EXT TID [facility] Last Admin: 11/29/17 08:59 Dose: 1 applic Allopurinol (Zyloprim) 100 mg PO DAILY [facility] Last Admin: 11/29/17 08:58 Dose: 100 mg Atorvastatin Calcium (Lipitor) 10 mg PO HS [facility] Last Admin: 11/28/17 21:33 Dose: 10 mg Cholecalciferol (Vitamin D) 1,000 intlu PO DAILY [facility] Last Admin: 11/29/17 08:58 Dose: 1,000 intlu Demeclocycline HCl (Declomycin) 300 mg PO BID [facility] PRN Reason: Protocol Stop: 12/04/17 23:59 Last Admin: 11/29/17 08:57 Dose: 300 mg Dextrose (Dextrose 50% Inj) 0 ml IV STAT PRN; Protocol PRN Reason: Hypoglycemia Protocol Dimethicone (Proshield Plus Skin Protectant) 1 applic TOP Q8 PRN PRN Reason: Rash Last Admin: 11/27/17 09:33 Dose: 1 applic Emollient Ointment (Vaseline Oint) 1 pkt TOP BID@0500,1700 [facility] Last Admin: 11/29/17 04:37 Dose: 1 pkt Epoetin [place] (Procrit) 40,000 unit SC WED [facility] Glucagon (Glucagen Diagnostic Kit) 0 mg IM STAT PRN; Protocol PRN Reason: Hypoglycemia Protocol Guaifenesin (Robitussin) 200 mg PO Q6 PRN PRN Reason: Cough Last Admin: 11/29/17 05:36 Dose: 200 mg Moxifloxacin HCl (Avelox Iv 400mg/250ml Ns) 400 mg in 250 mls @ 250 mls/hr IVPB DAILY@1700 [facility] Last Admin: 11/28/17 16:29 Dose: 250 mls/hr Piperacillin Sod/Tazobactam (Sod 2.25 gm/ Sodium Chloride) 100 mls @ 100 mls/ hr IVPB Q6 [facility] PRN Reason: Protocol Last Admin: 11/29/17 04:37 Dose: 100 mls/hr Insulin Detemir (Levemir) 6 units SC HS [facility] Last Admin: 11/28/17 21:34 Dose: 6 unit Insulin Human Lispro (Humalog) 0 units SC ACHS [facility] PRN Reason: Protocol Last Admin: 11/29/17 06:46 Dose: Not Given Ipratropium [place] (Atrovent) 0.5 mg IH RQID [facility] Last Admin: 11/29/17 07:31 Dose: 0.5 mg Lactobacillus Acidophilus (Bacid Acidophilus) 1 cap PO BID [facility] Last Admin: 11/29/17 08:57 Dose: 1 cap Levalbuterol HCl (Xopenex) 0.63 mg INH RQ4 PRN PRN Reason: Shortness of Breath Last Admin: 11/28/17 23:26 Dose: 0.63 mg Levalbuterol HCl (Xopenex) 0.63 mg INH RQID [facility] Last Admin: 11/29/17 07:31 Dose: 0.63 mg Levothyroxine Sodium (Synthroid) 50 mcg PO DAILY@0630 [facility] Last Admin: 11/29/17 05:36 Dose: 50 mcg Metoprolol Tartrate (Lopressor) 50 mg PO Q12 [facility] Last Admin: 11/29/17 08:58 Dose: 50 mg Metronidazole (Flagyl) 500 mg PO Q8 [facility] PRN Reason: Protocol Last Admin: 11/29/17 08:57 Dose: 500 mg Multivitamins/Minerals (Therapeutic-M Tab) 1 tab PO DAILY [facility] Last Admin: 11/29/17 08:58 Dose: 1 tab Ondansetron HCl (Zofran Inj) 4 mg IVP Q4 PRN PRN Reason: Nausea/Vomiting Last Admin: 11/28/17 02:29 Dose: 4 mg Pantoprazole Sodium (Protonix Ec Tab) 40 mg PO DAILY [facility] Last Admin: 08/15/18 08:58 Dose: 40 mg Sitagliptin Phosphate (Januvia) 100 mg PO DAILY [facility] Last Admin: 11/29/17 08:58 Dose: 100 mg - Labs Labs: 11/29/17 06:00 11/29/17 06:00 - ENT Exam ENT Exam: Mucous Membranes Moist - Neck Exam Neck Exam: absent: Lymphadenopathy - Respiratory Exam Respiratory Exam: NORMAL BREATHING PATTERN. absent: Chest Wall Tenderness - Cardiovascular Exam Cardiovascular Exam: absent: Rubs - GI/Abdominal Exam GI & Abdominal Exam: absent: Soft, Normal Bowel Sounds - Extremities Exam Extremities Exam: absent: Calf Tenderness - Back Exam Back Exam: absent: CVA tenderness (L), CVA tenderness (R) - Psychiatric Exam Psychiatric exam: Normal Affect - Skin Skin Exam: absent: Cyanosis Assessment and Plan (1) Hyponatremia Assessment & Plan: Hyponatremia serum sodium holding around 130 Continue fluid restriction and we will continue monitoring Status: Acute
--- NOTE | 2017-11-29 12:32 | CP.PCM.PN ---
<Ashley Sigalaekah - Last Filed: 11/29/17 18:09> Subjective - Date & Time of Evaluation Date of Evaluation: 11/29/17 Time of Evaluation: 09:00 - Subjective Subjective: Patient doing well this morning feels better than yesterday, Patient feels a little short of breath, still has a cough no productive sputum. Urination and Bowel movements are good, Patient continues to have a decreased appetite.Patient on 3L NC On PE patient has B/L medium inspiratory crackles. Dependent edema in both lower extremities continues to increase. No audible wheezing. Apparent increasing fluid overload with bilateral pleural effusions even with restricted fluid intake. Electrolyte imbalance with hyponatremia, AST 64 and ALT 88 currently trending up , TSH 12 Continue Zosyn and Avelox, F/U CMP tomorrow for liver enzyme elevation, discontinued statin. Gave patient dose of Lasix 40mg IV, continue Lasix for 3 days PO. Chemo is still being held for 1 week until patients condition improves. Objective - Vital Signs/Intake and Output Vital Signs (last 24 hours): Temp Pulse Resp BP Pulse Ox 97.2 F L 102 H 20 108/66 100 11/29/17 08:07 11/29/17 08:58 11/29/17 08:07 11/29/17 08:58 11/29/17 08:07 - Medications Medications: Current Medications Acetaminophen (Tylenol 650 Mg Supp) 650 mg [place] Q6 PRN PRN Reason: Fever >100.4 F Acyclovir (Zovirax 5% Oint) 1 applic EXT TID [facility] Last Admin: 11/29/17 08:59 Dose: 1 applic Allopurinol (Zyloprim) 100 mg PO DAILY [facility] Last Admin: 11/29/17 08:58 Dose: 100 mg Atorvastatin Calcium (Lipitor) 10 mg PO HS [facility] Last Admin: 11/28/17 21:33 Dose: 10 mg Cholecalciferol (Vitamin D) 1,000 intlu PO DAILY [facility] Last Admin: 11/29/17 08:58 Dose: 1,000 intlu Demeclocycline HCl (Declomycin) 300 mg PO BID [facility] PRN Reason: Protocol Stop: 12/04/17 23:59 Last Admin: 11/29/17 08:57 Dose: 300 mg Dextrose (Dextrose 50% Inj) 0 ml IV STAT PRN; Protocol PRN Reason: Hypoglycemia Protocol Dimethicone (Proshield Plus Skin Protectant) 1 applic TOP Q8 PRN PRN Reason: Rash Last Admin: 11/27/17 09:33 Dose: 1 applic Emollient Ointment (Vaseline Oint) 1 pkt TOP BID@0500,1700 [facility] Last Admin: 11/29/17 04:37 Dose: 1 pkt Epoetin Rolo (Procrit) 40,000 unit SC WED [facility] Last Admin: 11/29/17 10:43 Dose: 40,000 unit Furosemide (Lasix) 40 mg PO DAILY [facility] Stop: 12/01/17 23:59 Glucagon (Glucagen Diagnostic Kit) 0 mg IM STAT PRN; Protocol PRN Reason: Hypoglycemia Protocol Guaifenesin (Robitussin) 200 mg PO Q6 PRN PRN Reason: Cough Last Admin: 11/29/17 05:36 Dose: 200 mg Piperacillin Sod/Tazobactam (Sod 2.25 gm/ Sodium Chloride) 100 mls @ 100 mls/ hr IVPB Q6 [facility] PRN Reason: Protocol Last Admin: 11/29/17 10:46 Dose: 100 mls/hr Meropenem 1 gm/ Sodium (Chloride) 100 mls @ 100 mls/hr IVPB ONCE ONE PRN Reason: Protocol Stop: 11/29/17 13:29 Insulin Detemir (Levemir) 6 units SC HS [facility] Last Admin: 11/28/17 21:34 Dose: 6 unit Insulin Human Lispro (Humalog) 0 units SC ACHS [facility] PRN Reason: Protocol Last Admin: 11/29/17 06:46 Dose: Not Given Ipratropium [place] (Atrovent) 0.5 mg IH RQID [facility] Last Admin: 11/29/17 11:12 Dose: 0.5 mg Lactobacillus Acidophilus (Bacid Acidophilus) 1 cap PO BID [facility] Last Admin: 11/29/17 08:57 Dose: 1 cap Levalbuterol HCl (Xopenex) 0.63 mg INH RQ4 PRN PRN Reason: Shortness of Breath Last Admin: 11/28/17 23:26 Dose: 0.63 mg Levalbuterol HCl (Xopenex) 0.63 mg INH RQID [facility] Last Admin: 11/29/17 11:12 Dose: 0.63 mg Levothyroxine Sodium (Synthroid) 75 mcg PO DAILY@0630 [facility] Metoprolol Tartrate (Lopressor) 50 mg PO Q12 [facility] Last Admin: 11/29/17 08:58 Dose: 50 mg Metronidazole (Flagyl) 500 mg PO Q8 [facility] PRN Reason: Protocol Last Admin: 11/29/17 08:57 Dose: 500 mg Multivitamins/Minerals (Therapeutic-M Tab) 1 tab PO DAILY [facility] Last Admin: 11/29/17 08:58 Dose: 1 tab Ondansetron HCl (Zofran Inj) 4 mg IVP Q4 PRN PRN Reason: Nausea/Vomiting Last Admin: 11/28/17 02:29 Dose: 4 mg Pantoprazole Sodium (Protonix Ec Tab) 40 mg PO DAILY [facility] Last Admin: 11/29/17 08:58 Dose: 40 mg Sitagliptin Phosphate (Januvia) 100 mg PO DAILY [facility] Last Admin: 11/29/17 08:58 Dose: 100 mg - Labs Labs: 11/29/17 06:00 11/29/17 06:00 <Houston Vazquez - Last Filed: 12/03/17 14:16> Subjective - Subjective Subjective: Seen and examined together with the residents on rounds. Physical findings and ancillary studies were reviewed. Case was discussed and assessment/plan of care was formulated. Entry made by the resident in the EMR was reviewed and accurately reflects today 's encounter. Objective - Vital Signs/Intake and Output Vital Signs (last 24 hours): Temp Pulse Resp BP Pulse Ox 97.2 F L 92 H 18 138/76 99 12/03/17 07:52 12/03/17 08:58 12/03/17 07:52 12/03/17 08:58 12/03/17 07:52 - Medications Medications: Current Medications Acetaminophen (Tylenol 650 Mg Supp) 650 mg [place] Q6 PRN PRN Reason: Fever >100.4 F Acyclovir (Zovirax 5% Oint) 1 applic EXT TID [facility] Last Admin: 12/03/17 12:30 Dose: 1 applic Allopurinol (Zyloprim) 100 mg PO DAILY [facility] Last Admin: 12/03/17 09:00 Dose: 100 mg Atorvastatin Calcium (Lipitor) 10 mg PO HS [facility] Last Admin: 11/28/17 21:33 Dose: 10 mg Benzonatate (Tessalon Perles) 200 mg PO TID PRN PRN Reason: Cough Last Admin: 12/03/17 03:33 Dose: 200 mg Cholecalciferol (Vitamin D) 1,000 intlu PO DAILY [facility] Last Admin: 12/03/17 08:59 Dose: 1,000 intlu Demeclocycline HCl (Declomycin) 300 mg PO BID [facility] PRN Reason: Protocol Stop: 12/04/17 23:59 Last Admin: 12/03/17 08:57 Dose: 300 mg Dextrose (Dextrose 50% Inj) 0 ml IV STAT PRN; Protocol PRN Reason: Hypoglycemia Protocol Dimethicone (Proshield Plus Skin Protectant) 1 applic TOP Q8 PRN PRN Reason: Rash Last Admin: 11/30/17 05:53 Dose: 1 applic Emollient Ointment (Vaseline Oint) 1 pkt TOP BID@0500,1700 [facility] Last Admin: 12/03/17 06:31 Dose: 1 pkt Epoetin Rolo (Procrit) 40,000 unit SC WED [facility] Last Admin: 11/29/17 10:43 Dose: 40,000 unit Furosemide (Lasix) 40 mg PO BID [facility] Last Admin: 12/03/17 08:58 Dose: 40 mg Glucagon (Glucagen Diagnostic Kit) 0 mg IM STAT PRN; Protocol PRN Reason: Hypoglycemia Protocol Guaifenesin (Robitussin) 200 mg PO Q6 PRN PRN Reason: Cough Last Admin: 11/30/17 11:19 Dose: 200 mg Piperacillin Sod/Tazobactam (Sod 2.25 gm/ Sodium Chloride) 100 mls @ 100 mls/ hr IVPB Q6 [facility] PRN Reason: Protocol Last Admin: 12/03/17 11:05 Dose: 100 mls/hr Cefepime HCl 1 gm/ Sodium (Chloride) 100 mls @ 100 mls/hr IVPB Q12 [facility] PRN Reason: Protocol Last Admin: 12/03/17 09:05 Dose: 100 mls/hr Insulin Detemir (Levemir) 6 units SC HS [facility] Last Admin: 12/02/17 21:21 Dose: 6 unit Insulin Human Lispro (Humalog) 0 units SC ACHS [facility] PRN Reason: Protocol Last Admin: 12/03/17 12:29 Dose: 1 u Ipratropium [place] (Atrovent) 0.5 mg IH RQID [facility] Last Admin: 12/03/17 11:44 Dose: 0.5 mg Lactobacillus Acidophilus (Bacid Acidophilus) 1 cap PO BID@1100,2100 [facility] Last Admin: 12/03/17 12:27 Dose: 1 cap Levalbuterol HCl (Xopenex) 0.63 mg INH RQ4 PRN PRN Reason: Shortness of Breath Last Admin: 11/29/17 23:24 Dose: 0.63 mg Levalbuterol HCl (Xopenex) 0.63 mg INH RQID [facility] Last Admin: 12/03/17 11:44 Dose: 0.63 mg Levothyroxine Sodium (Synthroid) 75 mcg PO DAILY@0630 [facility] Last Admin: 12/03/17 06:29 Dose: 75 mcg Magnesium Oxide (Mag-Ox) 400 mg PO BID [facility] Last Admin: 12/03/17 08:58 Dose: 400 mg Metoprolol Tartrate (Lopressor) 50 mg PO Q12 [facility] Last Admin: 12/03/17 08:58 Dose: 50 mg Multivitamins/Minerals (Therapeutic-M Tab) 1 tab PO DAILY [facility] Last Admin: 12/03/17 12:27 Dose: 1 tab Ondansetron HCl (Zofran Inj) 4 mg IVP Q4 PRN PRN Reason: Nausea/Vomiting Last Admin: 12/01/17 17:56 Dose: 4 mg Pantoprazole Sodium (Protonix Ec Tab) 40 mg PO DAILY [facility] Last Admin: 12/03/17 09:03 Dose: 40 mg Sitagliptin Phosphate (Januvia) 50 mg PO DAILY [facility] Last Admin: 12/03/17 08:57 Dose: 50 mg - Labs Labs: 12/01/17 06:20 12/02/17 05:30 Assessment and Plan (1) Acute exacerbation of chronic obstructive bronchitis Status: Acute
[2017-11-29] MEDS ORDERED: Meropenem 1 GM in Sodium Chloride 0.9% 100 ML IVPB ONE (12:45)
--- NOTE | 2017-11-29 16:48 | CP.PCM.PN ---
Subjective - Date & Time of Evaluation Date of Evaluation: 11/29/17 Time of Evaluation: 16:50 - Subjective Subjective: i d note C.DIFF IS NEG PLATELETS :57,WBC :6.2 ALT:88.CREATININE :1.3,GFR:40 BEING GIVEN LASIX GRAM NEG SEVERO IN SPUTUM IS pSEUDOMONAS ,AWAIT SENSITIVITY HAVE GIVEN I DOSE OF MEROPENEM D/SERVANDO AVELOX(LFTs) still coughing tessalon chino ordered Objective - Vital Signs/Intake and Output Vital Signs (last 24 hours): Temp Pulse Resp BP Pulse Ox 97.2 F L 102 H 20 108/66 100 11/29/17 08:07 11/29/17 08:58 11/29/17 08:07 11/29/17 12:47 11/29/17 08:07 - Medications Medications: Current Medications Acetaminophen (Tylenol 650 Mg Supp) 650 mg [place] Q6 PRN PRN Reason: Fever >100.4 F Acyclovir (Zovirax 5% Oint) 1 applic EXT TID [facility] Last Admin: 11/29/17 12:46 Dose: 1 applic Allopurinol (Zyloprim) 100 mg PO DAILY [facility] Last Admin: 11/29/17 08:58 Dose: 100 mg Atorvastatin Calcium (Lipitor) 10 mg PO HS [facility] Last Admin: 11/28/17 21:33 Dose: 10 mg Cholecalciferol (Vitamin D) 1,000 intlu PO DAILY [facility] Last Admin: 11/29/17 08:58 Dose: 1,000 intlu Demeclocycline HCl (Declomycin) 300 mg PO BID [facility] PRN Reason: Protocol Stop: 12/04/17 23:59 Last Admin: 11/29/17 08:57 Dose: 300 mg Dextrose (Dextrose 50% Inj) 0 ml IV STAT PRN; Protocol PRN Reason: Hypoglycemia Protocol Dimethicone (Proshield Plus Skin Protectant) 1 applic TOP Q8 PRN PRN Reason: Rash Last Admin: 11/27/17 09:33 Dose: 1 applic Emollient Ointment (Vaseline Oint) 1 pkt TOP BID@0500,1700 [facility] Last Admin: 11/29/17 04:37 Dose: 1 pkt Epoetin Rolo (Procrit) 40,000 unit SC WED [facility] Last Admin: 11/29/17 10:43 Dose: 40,000 unit Furosemide (Lasix) 40 mg PO DAILY [facility] Stop: 12/01/17 23:59 Glucagon (Glucagen Diagnostic Kit) 0 mg IM STAT PRN; Protocol PRN Reason: Hypoglycemia Protocol Guaifenesin (Robitussin) 200 mg PO Q6 PRN PRN Reason: Cough Last Admin: 11/29/17 05:36 Dose: 200 mg Piperacillin Sod/Tazobactam (Sod 2.25 gm/ Sodium Chloride) 100 mls @ 100 mls/ hr IVPB Q6 [facility] PRN Reason: Protocol Last Admin: 11/29/17 10:46 Dose: 100 mls/hr Insulin Detemir (Levemir) 6 units SC HS [facility] Last Admin: 11/28/17 21:34 Dose: 6 unit Insulin Human Lispro (Humalog) 0 units SC ACHS [facility] PRN Reason: Protocol Last Admin: 11/29/17 12:38 Dose: Not Given Ipratropium [place] (Atrovent) 0.5 mg IH RQID [facility] Last Admin: 11/29/17 15:20 Dose: 0.5 mg Lactobacillus Acidophilus (Bacid Acidophilus) 1 cap PO BID [facility] Last Admin: 11/29/17 08:57 Dose: 1 cap Levalbuterol HCl (Xopenex) 0.63 mg INH RQ4 PRN PRN Reason: Shortness of Breath Last Admin: 11/28/17 23:26 Dose: 0.63 mg Levalbuterol HCl (Xopenex) 0.63 mg INH RQID [facility] Last Admin: 11/29/17 15:20 Dose: 0.63 mg Levothyroxine Sodium (Synthroid) 75 mcg PO DAILY@0630 [facility] Metoprolol Tartrate (Lopressor) 50 mg PO Q12 [facility] Last Admin: 11/29/17 08:58 Dose: 50 mg Metronidazole (Flagyl) 500 mg PO Q8 [facility] PRN Reason: Protocol Last Admin: 11/29/17 08:57 Dose: 500 mg Multivitamins/Minerals (Therapeutic-M Tab) 1 tab PO DAILY [facility] Last Admin: 11/29/17 08:58 Dose: 1 tab Ondansetron HCl (Zofran Inj) 4 mg IVP Q4 PRN PRN Reason: Nausea/Vomiting Last Admin: 11/28/17 02:29 Dose: 4 mg Pantoprazole Sodium (Protonix Ec Tab) 40 mg PO DAILY [facility] Last Admin: 11/29/17 08:58 Dose: 40 mg Sitagliptin Phosphate (Januvia) 100 mg PO DAILY [facility] Last Admin: 11/29/17 08:58 Dose: 100 mg - Labs Labs: 11/29/17 06:00 11/29/17 06:00
--- NOTE | 2017-11-29 16:49 | CP.PCM.CON ---
History of Present Illness - History of Present Illness History of Present Illness: Called to evaluate pt with pedal edema and r/o CHF 77 y/o female with MDS ( Myodysplastic Syndrome )/ B cell lymphoma recently started on chemotherapy Pt claims that she has had pedal edema for years only resolves with lasix lasix started yesterday; edema is slightly less today Admitted with LLL Pneumonia sepsis neutropenia EKG: Atrial Fibrillation BNP: 9390 PMSH: A fib, CAD (CABG triple bypass), COPD, hypercholesterolemia, hypothyroidism, HTN, DM type 2, CHF, B Cell lymphoma who was diagnosed with MDS in 2016, b/l knee replacements Past Patient History - Infectious Disease Hx of Infectious Diseases: None - Tetanus Immunizations Tetanus Immunization: Unknown - Past Medical History & Family History Past Medical History?: Yes Past Family History: Reviewed and not pertinent - Past Social History Smoking Status: Former Smoker Chewing Tobacco Use: No Cigar Use: No Alcohol: None Drugs: Denies Home Situation {Lives}: With Family Domestic Violence: Negative - CARDIAC Hx Cardiac Disorders: Yes Hx Hypercholesterolemia: Yes Hx Hypertension: Yes - PULMONARY Hx Chronic Obstructive Pulmonary Disease (COPD): Yes - NEUROLOGICAL Hx Neurological Disorder: No - HEENT Hx HEENT Problems: Yes (Hearing loss in the right ear.) - RENAL Hx Chronic Kidney Disease: Yes Other/Comment: NICOLE due to vanco(recent admission) - ENDOCRINE/METABOLIC Hx Diabetes Mellitus Type 2: Yes - HEMATOLOGICAL/ONCOLOGICAL Hx Anemia: Yes Hx Blood Transfusions: Yes Hx Cancer: Yes (b cell lymphoma) Hx Chemotherapy: Yes Other/Comment: myelodysplastic syndrome - INTEGUMENTARY Hx Dermatological Problems: No - MUSCULOSKELETAL/RHEUMATOLOGICAL Hx Falls: Yes - GASTROINTESTINAL Hx Gastritis: Yes - GENITOURINARY/GYNECOLOGICAL Hx Genitourinary Disorders: No Hx Incontinence: Yes - PSYCHIATRIC Hx Psychophysiologic Disorder: No Hx Substance Use: No - SURGICAL HISTORY Hx Coronary Artery Bypass Graft: Yes (2000) Hx Coronary Stent: Yes (PCI 2007 and 2010) Other/Comment: meg knee replacement - ANESTHESIA Hx Anesthesia: Yes Hx Anesthesia Reactions: No Hx Malignant Hyperthermia: No Has any member of the family had a problem w/ anesthesia?: Yes Meds Allergies/Adverse Reactions: Allergies Allergy/AdvReac Type Severity Reaction Status Date / Time vancomycin AdvReac Intermediate NAUSEA Verified 11/25/17 11:20 - Medications Medications: Current Medications Acetaminophen (Tylenol 650 Mg Supp) 650 mg [place] Q6 PRN PRN Reason: Fever >100.4 F Acyclovir (Zovirax 5% Oint) 1 applic EXT TID [facility] Last Admin: 11/29/17 12:46 Dose: 1 applic Allopurinol (Zyloprim) 100 mg PO DAILY [facility] Last Admin: 11/29/17 08:58 Dose: 100 mg Atorvastatin Calcium (Lipitor) 10 mg PO HS [facility] Last Admin: 11/28/17 21:33 Dose: 10 mg Cholecalciferol (Vitamin D) 1,000 intlu PO DAILY [facility] Last Admin: 11/29/17 08:58 Dose: 1,000 intlu Demeclocycline HCl (Declomycin) 300 mg PO BID [facility] PRN Reason: Protocol Stop: 12/04/17 23:59 Last Admin: 11/29/17 08:57 Dose: 300 mg Dextrose (Dextrose 50% Inj) 0 ml IV STAT PRN; Protocol PRN Reason: Hypoglycemia Protocol Dimethicone (Proshield Plus Skin Protectant) 1 applic TOP Q8 PRN PRN Reason: Rash Last Admin: 11/27/17 09:33 Dose: 1 applic Emollient Ointment (Vaseline Oint) 1 pkt TOP BID@0500,1700 [facility] Last Admin: 11/29/17 04:37 Dose: 1 pkt Epoetin Rolo (Procrit) 40,000 unit SC WED [facility] Last Admin: 11/29/17 10:43 Dose: 40,000 unit Furosemide (Lasix) 40 mg PO DAILY [facility] Stop: 12/01/17 23:59 Glucagon (Glucagen Diagnostic Kit) 0 mg IM STAT PRN; Protocol PRN Reason: Hypoglycemia Protocol Guaifenesin (Robitussin) 200 mg PO Q6 PRN PRN Reason: Cough Last Admin: 11/29/17 05:36 Dose: 200 mg Piperacillin Sod/Tazobactam (Sod 2.25 gm/ Sodium Chloride) 100 mls @ 100 mls/ hr IVPB Q6 [facility] PRN Reason: Protocol Last Admin: 11/29/17 10:46 Dose: 100 mls/hr Insulin Detemir (Levemir) 6 units SC HS [facility] Last Admin: 11/28/17 21:34 Dose: 6 unit Insulin Human Lispro (Humalog) 0 units SC [facility] PRN Reason: Protocol Last Admin: 11/29/17 12:38 Dose: Not Given Ipratropium [place] (Atrovent) 0.5 mg IH RQID [facility] Last Admin: 11/29/17 15:20 Dose: 0.5 mg Lactobacillus Acidophilus (Bacid Acidophilus) 1 cap PO BID [facility] Last Admin: 11/29/17 08:57 Dose: 1 cap Levalbuterol HCl (Xopenex) 0.63 mg INH RQ4 PRN PRN Reason: Shortness of Breath Last Admin: 11/28/17 23:26 Dose: 0.63 mg Levalbuterol HCl (Xopenex) 0.63 mg INH RQID [facility] Last Admin: 11/29/17 15:20 Dose: 0.63 mg Levothyroxine Sodium (Synthroid) 75 mcg PO DAILY@0630 [facility] Metoprolol Tartrate (Lopressor) 50 mg PO Q12 [facility] Last Admin: 11/29/17 08:58 Dose: 50 mg Metronidazole (Flagyl) 500 mg PO Q8 [facility] PRN Reason: Protocol Last Admin: 11/29/17 08:57 Dose: 500 mg Multivitamins/Minerals (Therapeutic-M Tab) 1 tab PO DAILY [facility] Last Admin: 11/29/17 08:58 Dose: 1 tab Ondansetron HCl (Zofran Inj) 4 mg IVP Q4 PRN PRN Reason: Nausea/Vomiting Last Admin: 11/28/17 02:29 Dose: 4 mg Pantoprazole Sodium (Protonix Ec Tab) 40 mg PO DAILY [facility] Last Admin: 11/29/17 08:58 Dose: 40 mg Sitagliptin Phosphate (Januvia) 100 mg PO DAILY [facility] Last Admin: 11/29/17 08:58 Dose: 100 mg Physical Exam - Constitutional Appears: Well - Respiratory Exam Respiratory Exam: Decreased Breath Sounds - Cardiovascular Exam Cardiovascular Exam: Irregular Rhythm - Extremities Exam Extremities exam: Positive for: pedal edema Results - Vital Signs Recent Vital Signs: Last Vital Signs Temp 97.2 F L 11/29/17 08:07 Pulse 102 H 11/29/17 08:58 Resp 20 11/29/17 08:07 BP 108/66 11/29/17 12:47 Pulse Ox 100 11/29/17 08:07 - Labs Result Diagrams: 11/30/17 06:20 11/30/17 06:20 Labs: Laboratory Results - last 24 hr 11/28/17 11/28/17 11/29/17 13:09 20:48 05:56 WBC RBC Hgb Hct MCV MCH MCHC RDW Plt Count Sodium Potassium Chloride Carbon Dioxide Anion Gap BUN Creatinine Est GFR ( Amer) Est GFR (Non-Af Amer) POC Glucose (mg/dL) 163 H 129 H Random Glucose Calcium Phosphorus Magnesium Total Bilirubin AST ALT Alkaline Phosphatase Total Protein Albumin Globulin Albumin/Globulin Ratio TSH 3rd Generation C. difficile Ag & Toxin Negative 11/29/17 11/29/17 11/29/17 06:00 06:00 10:53 WBC 6.2 RBC 3.22 L Hgb 9.1 L Hct 27.9 L MCV 86.5 MCH 28.2 MCHC 32.7 L RDW 24.8 H Plt Count 57 L D Sodium 130 L Potassium 4.2 Chloride 102 Carbon Dioxide 19 L Anion Gap 13 BUN 17 Creatinine 1.3 H Est GFR ( Amer) 48 Est GFR (Non-Af Amer) 40 POC Glucose (mg/dL) 135 H Random Glucose 115 H Calcium 7.8 L Phosphorus 3.2 Magnesium 1.2 L Total Bilirubin 0.8 AST 64 H D ALT 88 H Alkaline Phosphatase 122 Total Protein 3.9 L Albumin 2.2 L Globulin 1.8 L Albumin/Globulin Ratio 1.2 TSH 3rd Generation 12.00 H C. difficile Ag & Toxin Assessment & Plan (1) Acute on chronic systolic congestive heart failure Assessment and Plan: Recommend continuing with lasix daily Status: Acute (2) Acute exacerbation of chronic obstructive bronchitis Status: Acute Priority: High (3) Marginal zone B-cell lymphoma Status: Acute (4) Atrial fibrillation Status: Chronic Priority: High (5) B-cell lymphoma Status: Chronic Priority: High (6) Pulmonary hypertension Status: Chronic Priority: High
[2017-11-29] MEDS: Insulin Detemir 100 Units/ml Inj SC SCH (21:18)
[2017-11-29] MEDS: Levalbuterol 0.63 MG/3 ML Inhal Soln UD INH PRN (23:24)
[2017-11-30] MEDS: Petrolatum UD PAK TOP SCH ×2 (04:27→17:08)
[2017-11-30] MEDS: Proshield Plus GEL TOP PRN (05:53)
[2017-11-30] MEDS: Levothyroxine 75 MCG TAB PO SCH (05:54)
[2017-11-30] MEDS: Insulin Lispro (humaLOG) 100 Units/ml Inj SC SCH ×4 (06:40→21:28)
[2017-11-30] MEDS: Levalbuterol 0.63 MG/3 ML Inhal Soln UD INH SCH ×4 (07:07→20:13)
[2017-11-30] MEDS: Ipratropium 0.02% Inhal Soln (0.5 mg/2.5 ml) UD IH SCH ×4 (07:07→20:13)
[2017-11-30 07:08] LABS: BASO # 0.1 K/uL (0.0-0.2); BASO % 1.2 % (0.0-2.0); EOS # 0.4 K/uL (0.0-0.7); EOS % 4.1 % (0.0-4.0); HEMOGLOBIN 9.3 g/dL (12.0-16.0); LYMPH # 0.2 K/uL (1.0-4.3); MEAN CELL VOLUME 86.1 fl (81.0-99.0); MEAN CORPUSCULAR HEMOGLOBIN 28.7 pg (27.0-31.0); MEAN CORPUSCULAR HGB CONC 33.4 g/dL (33.0-37.0); MEAN PLATELET VOLUME 10.7 fl (7.2-11.7); MONO # 0.6 K/uL (0.0-0.8); MONO % 6.5 % (0.0-10.0); NEUT # 7.7 K/uL (1.8-7.0); NEUT % 86.2 % (50.0-75.0); NRBC % 0.1 % (0.0-0.0); PLATELET COUNT 65 K/uL (130-400); RBC 3.25 Mil/uL (3.80-5.20); RED CELL DISTRIBUTION WIDTH 25.1 % (11.5-14.5)
[2017-11-30 07:37] LABS: ALB/GLOB RATIO 1.3 (1.0-2.1); ALBUMIN 2.4 g/dL (3.5-5.0); CALCIUM 7.9 mg/dL (8.4-10.2)
--- NOTE | 2017-11-30 07:48 | CARD ---
APPROVED REPORT Date of service: 11/29/2017 <Conclusion> Atrial fibrillation with rapid ventricular response with premature ventricular or aberrantly conducted complexes Left axis deviation Anterolateral infarct, age undetermined Abnormal ECG
[2017-11-30] MEDS: Lactobacillus Acidophilus 500 MU Cap PO SCH ×2 (09:35→17:07)
[2017-11-30] MEDS: Cholecalciferol 1,000 INTLU TAB PO SCH (09:36)
[2017-11-30] MEDS: Multivitamin With Minerals Tab PO SCH (09:36)
[2017-11-30] MEDS: Acyclovir 5% OINT 15 APPLIC/15 GM EXT SCH ×3 (09:36→17:08)
[2017-11-30] MEDS: Pantoprazole 40 mg EC Tab PO SCH (09:36)
[2017-11-30] MEDS ORDERED: Magnesium Oxide 400 mg Tab UD PO ONE (10:00)
--- NOTE | 2017-11-30 10:18 | CP.PCM.PN ---
Subjective - Date & Time of Evaluation Date of Evaluation: 11/30/17 Time of Evaluation: 10:18 - Subjective Subjective: patient awake and conscious not in acute distress Objective - Vital Signs/Intake and Output Vital Signs (last 24 hours): Temp Pulse Resp BP Pulse Ox 97.5 F L 101 H 20 99/60 L 100 11/30/17 08:06 11/30/17 09:56 11/30/17 08:06 11/30/17 09:56 11/30/17 08:06 - Medications Medications: Current Medications Acetaminophen (Tylenol 650 Mg Supp) 650 mg [place] Q6 PRN PRN Reason: Fever >100.4 F Acyclovir (Zovirax 5% Oint) 1 applic EXT TID [facility] Last Admin: 11/30/17 09:36 Dose: 1 applic Allopurinol (Zyloprim) 100 mg PO DAILY [facility] Last Admin: 11/30/17 09:37 Dose: 100 mg Atorvastatin Calcium (Lipitor) 10 mg PO HS [facility] Last Admin: 11/28/17 21:33 Dose: 10 mg Benzonatate (Tessalon Perles) 100 mg PO TID PRN PRN Reason: Cough Last Admin: 11/30/17 09:37 Dose: 100 mg Cholecalciferol (Vitamin D) 1,000 intlu PO DAILY [facility] Last Admin: 11/30/17 09:36 Dose: 1,000 intlu Demeclocycline HCl (Declomycin) 300 mg PO BID [facility] PRN Reason: Protocol Stop: 12/04/17 23:59 Last Admin: 11/30/17 09:35 Dose: 300 mg Dextrose (Dextrose 50% Inj) 0 ml IV STAT PRN; Protocol PRN Reason: Hypoglycemia Protocol Dimethicone (Proshield Plus Skin Protectant) 1 applic TOP Q8 PRN PRN Reason: Rash Last Admin: 11/30/17 05:53 Dose: 1 applic Emollient Ointment (Vaseline Oint) 1 pkt TOP BID@0500,1700 [facility] Last Admin: 11/30/17 04:27 Dose: 1 pkt Epoetin Rolo (Procrit) 40,000 unit SC WED [facility] Last Admin: 11/29/17 10:43 Dose: 40,000 unit Furosemide (Lasix) 40 mg PO DAILY [facility] Stop: 12/01/17 23:59 Last Admin: 11/30/17 09:54 Dose: 40 mg Glucagon (Glucagen Diagnostic Kit) 0 mg IM STAT PRN; Protocol PRN Reason: Hypoglycemia Protocol Guaifenesin (Robitussin) 200 mg PO Q6 PRN PRN Reason: Cough Last Admin: 11/29/17 21:19 Dose: 200 mg Piperacillin Sod/Tazobactam (Sod 2.25 gm/ Sodium Chloride) 100 mls @ 100 mls/ hr IVPB Q6 [facility] PRN Reason: Protocol Last Admin: 11/30/17 09:43 Dose: 100 mls/hr Insulin Detemir (Levemir) 6 units SC HS [facility] Last Admin: 11/29/17 21:18 Dose: 6 unit Insulin Human Lispro (Humalog) 0 units SC ACHS [facility] PRN Reason: Protocol Last Admin: 11/30/17 06:40 Dose: Not Given Ipratropium [place] (Atrovent) 0.5 mg IH RQID [facility] Last Admin: 11/30/17 07:07 Dose: 0.5 mg Lactobacillus Acidophilus (Bacid Acidophilus) 1 cap PO BID [facility] Last Admin: 11/30/17 09:35 Dose: 1 cap Levalbuterol HCl (Xopenex) 0.63 mg INH RQ4 PRN PRN Reason: Shortness of Breath Last Admin: 11/29/17 23:24 Dose: 0.63 mg Levalbuterol HCl (Xopenex) 0.63 mg INH RQID [facility] Last Admin: 11/30/17 07:07 Dose: 0.63 mg Levothyroxine Sodium (Synthroid) 75 mcg PO DAILY@0630 [facility] Last Admin: 11/30/17 05:54 Dose: 75 mcg Metoprolol Tartrate (Lopressor) 50 mg PO Q12 [facility] Last Admin: 11/30/17 09:56 Dose: Not Given Metronidazole (Flagyl) 500 mg PO Q8 [facility] PRN Reason: Protocol Last Admin: 11/30/17 09:36 Dose: 500 mg Multivitamins/Minerals (Therapeutic-M Tab) 1 tab PO DAILY [facility] Last Admin: 11/30/17 09:36 Dose: 1 tab Ondansetron HCl (Zofran Inj) 4 mg IVP Q4 PRN PRN Reason: Nausea/Vomiting Last Admin: 11/28/17 02:29 Dose: 4 mg Pantoprazole Sodium (Protonix Ec Tab) 40 mg PO DAILY [facility] Last Admin: 11/30/17 09:36 Dose: 40 mg Sitagliptin Phosphate (Januvia) 100 mg PO DAILY [facility] Last Admin: 11/30/17 09:36 Dose: 100 mg - Labs Labs: 11/30/17 06:20 11/30/17 06:20 - Constitutional Appears: No Acute Distress - ENT Exam ENT Exam: Mucous Membranes Moist - Neck Exam Neck Exam: absent: Lymphadenopathy - Respiratory Exam Respiratory Exam: NORMAL BREATHING PATTERN. absent: Chest Wall Tenderness - GI/Abdominal Exam GI & Abdominal Exam: Soft, Normal Bowel Sounds - Extremities Exam Extremities Exam: absent: Calf Tenderness - Back Exam Back Exam: absent: CVA tenderness (L), CVA tenderness (R) - Neurological Exam Neurological Exam: Alert - Psychiatric Exam Psychiatric exam: Normal Affect - Skin Skin Exam: absent: Cyanosis Assessment and Plan (1) Hyponatremia Assessment & Plan: hyponatremia related to SIADH we will repeat spot urine for sodium osmolality Serum sodium is still around 130 with poor response to Samsca Patient is receiving demeclocycline in the last 48 hours or so if no response to the Demeclocycline we will give give Samsca again and discontinue demeclocycline and continue fluid restriction patient need intermittent diuretics she is not complying with the fluid restriction medical history including A fib, CAD (CABG triple bypass), COPD, hypercholesterolemia, hypothyroidism, HTN, DM type 2, CHF, 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
[2017-11-30] MEDS: guaiFENesin 200 mg/10 ml Syrup UD PO PRN (11:19)
--- NOTE | 2017-11-30 11:28 | CP.PCM.PN ---
Subjective - Date & Time of Evaluation Date of Evaluation: 11/30/17 Time of Evaluation: 14:04 - Subjective Subjective: doing well feels weak however mild improved hd stable nad Objective - Vital Signs/Intake and Output Vital Signs (last 24 hours): Temp Pulse Resp BP Pulse Ox 97.5 F L 101 H 20 99/60 L 100 11/30/17 08:06 11/30/17 09:56 11/30/17 08:06 11/30/17 09:56 11/30/17 08:06 Intake and Output: Vitals Reviewed GEN: WDWN, alert, cooperative HEENT: NCAT, PERRL, EOMI HEART: RRR, +S1S2, NO MRG LUNG: CTAB, NO WRR ABD: soft, NT, ND, No HSM, No masses EXT: normal pedal pulses NEURO: awake, alert SKIN: warm, dry PSYCH: normal mood, normal affect - Medications Medications: Current Medications Acetaminophen (Tylenol 650 Mg Supp) 650 mg [place] Q6 PRN PRN Reason: Fever >100.4 F Acyclovir (Zovirax 5% Oint) 1 applic EXT TID [facility] Last Admin: 11/30/17 09:36 Dose: 1 applic Allopurinol (Zyloprim) 100 mg PO DAILY [facility] Last Admin: 11/30/17 09:37 Dose: 100 mg Atorvastatin Calcium (Lipitor) 10 mg PO HS [facility] Last Admin: 11/28/17 21:33 Dose: 10 mg Benzonatate (Tessalon Perles) 200 mg PO TID PRN PRN Reason: Cough Cholecalciferol (Vitamin D) 1,000 intlu PO DAILY [facility] Last Admin: 11/30/17 09:36 Dose: 1,000 intlu Demeclocycline HCl (Declomycin) 300 mg PO BID [facility] PRN Reason: Protocol Stop: 12/04/17 23:59 Last Admin: 11/30/17 09:35 Dose: 300 mg Dextrose (Dextrose 50% Inj) 0 ml IV STAT PRN; Protocol PRN Reason: Hypoglycemia Protocol Dimethicone (Proshield Plus Skin Protectant) 1 applic TOP Q8 PRN PRN Reason: Rash Last Admin: 11/30/17 05:53 Dose: 1 applic Emollient Ointment (Vaseline Oint) 1 pkt TOP BID@0500,1700 [facility] Last Admin: 11/30/17 04:27 Dose: 1 pkt Epoetin Rolo (Procrit) 40,000 unit SC WED [facility] Last Admin: 11/29/17 10:43 Dose: 40,000 unit Furosemide (Lasix) 40 mg PO DAILY [facility] Stop: 12/01/17 23:59 Last Admin: 11/30/17 09:54 Dose: 40 mg Glucagon (Glucagen Diagnostic Kit) 0 mg IM STAT PRN; Protocol PRN Reason: Hypoglycemia Protocol Guaifenesin (Robitussin) 200 mg PO Q6 PRN PRN Reason: Cough Last Admin: 11/30/17 11:19 Dose: 200 mg Piperacillin Sod/Tazobactam (Sod 2.25 gm/ Sodium Chloride) 100 mls @ 100 mls/ hr IVPB Q6 [facility] PRN Reason: Protocol Last Admin: 11/30/17 09:43 Dose: 100 mls/hr Cefepime HCl 1 gm/ Sodium (Chloride) 100 mls @ 100 mls/hr IVPB Q12 [facility] PRN Reason: Protocol Insulin Detemir (Levemir) 6 units SC HS [facility] Last Admin: 11/29/17 21:18 Dose: 6 unit Insulin Human Lispro (Humalog) 0 units SC ACHS [facility] PRN Reason: Protocol Last Admin: 11/30/17 06:40 Dose: Not Given Ipratropium [place] (Atrovent) 0.5 mg IH RQID [facility] Last Admin: 11/30/17 10:59 Dose: 0.5 mg Lactobacillus Acidophilus (Bacid Acidophilus) 1 cap PO BID [facility] Last Admin: 11/30/17 09:35 Dose: 1 cap Levalbuterol HCl (Xopenex) 0.63 mg INH RQ4 PRN PRN Reason: Shortness of Breath Last Admin: 11/29/17 23:24 Dose: 0.63 mg Levalbuterol HCl (Xopenex) 0.63 mg INH RQID [facility] Last Admin: 11/30/17 11:00 Dose: 0.63 mg Levothyroxine Sodium (Synthroid) 75 mcg PO DAILY@0630 [facility] Last Admin: 11/30/17 05:54 Dose: 75 mcg Metoprolol Tartrate (Lopressor) 50 mg PO Q12 [facility] Last Admin: 11/30/17 09:56 Dose: Not Given Metronidazole (Flagyl) 500 mg PO Q8 [facility] PRN Reason: Protocol Last Admin: 11/30/17 09:36 Dose: 500 mg Multivitamins/Minerals (Therapeutic-M Tab) 1 tab PO DAILY [facility] Last Admin: 11/30/17 09:36 Dose: 1 tab Ondansetron HCl (Zofran Inj) 4 mg IVP Q4 PRN PRN Reason: Nausea/Vomiting Last Admin: 11/28/17 02:29 Dose: 4 mg Pantoprazole Sodium (Protonix Ec Tab) 40 mg PO DAILY [facility] Last Admin: 11/30/17 09:36 Dose: 40 mg Sitagliptin Phosphate (Januvia) 100 mg PO DAILY [facility] Last Admin: 11/30/17 09:36 Dose: 100 mg - Labs Labs: 11/30/17 06:20 11/30/17 06:20 Assessment and Plan - Assessment and Plan (Free Text) Plan: 77 yr old female with PMHx of A fib, CAD (CABG triple bypass), COPD, hypercholesterolemia, hypothyroidism, HTN, DM type 2, CHF, MDS, B Cell lymphoma s/p recent Chemotherapy, was admitted for Pancytopenia and Sepsis due to Pneumonia. She was started on IV antibiotics, IVF hydration and Infectious Disease specialist and Pulmonary were consulted . She was placed on IV Teflaro and Avelox. Patient was also Pancytopenic on admission and Hematology was consulted .Patient received PRBC transfusion and Granix. Patients symptoms improved however , patient was very deconditioned and was transferred to TCU for Physical therapy and to continuation of IV antibiotics . Pt also developed C diff Colitis and was started on PO Flagyl. 1. Sepsis 2/2 LLL Bacterial Pneumonia , improving ID on consult teflaro changed to Zosyn IV . Continue Moxifloxacin CXR showed bilateral lower lobe infiltrates and effusion pulmonary consult appreciated Will check CT chest to better evaluate infiltrates 2. B-cell lymphoma / MDS (myelodysplastic syndrome) Plan for the 2nd cycle of chemotherapy this week ( Mon) by Dr Luz Nunes Monitor CBC 3. Pancytopenia sec to Chemotherapy improved with PRBC transfusion and Granix Plt 82 K Hgb 9.5 WBC 10 Hematology on consult 4. Chronic a-fib Continue current management ,Metoprolol 75mg po BID. Xarelto on hold due to thrombocytopenia 5. COPD chronic cont Atrovent and Xopenex pulmonary on consult Continue IV antibiotics Check Ct chest 6. Hyponatremia Na [address] Allen consult received Tolvaptan and started on Demeclocycline today repeat BMP in AM 7.Hypothyroid Continue home medication: Levothyroxine 50mcg daily. Check TSH, T3, T4 8. CKD stage III stable 9. Physical Deconditioning PT/OT consulted Continue as tolerated 10. C diff Colitis cont PO Flagyl diarrhea resolved 11.DM On januvia and levemir Accuchecks 12. Pseudohypocalcemia check albumin in AM 13.DVT prophylaxis Patient was on Xarelto but stopped due to thrombocytopenia SCD only for now
[2017-11-30 11:49] LABS: BANDS 4 % (0-2); BASOPHIL 1 % (0-2); EOSINOPHIL 2 % (0-7); LYMPHOCYTE 4 % (20-50); MONOCYTE 5 % (0-10); NEUTROPHIL 84 % (42-75); TOTAL CELLS COUNTED 100
[2017-11-30 11:50] LABS: PLATELET ESTIMATE DECREASED (NORMAL)
[2017-11-30 11:52] LABS: ANISOCYTOSIS MODERATE; GIANT PLATELETS PRESENT; HYPOCHROMIC SLIGHT; LARGE PLATELETS PRESENT; OVALOCYTES SLIGHT; POIKILOCYTOSIS SLIGHT; SCHISTOCYTES SLIGHT; SPHEROCYTES SLIGHT; TEARDROP CELLS SLIGHT
[2017-11-30 11:53] LABS: MICROCYTOSIS SLIGHT
[2017-11-30] MEDS: Cefepime 1 GM in Sodium Chloride 0.9% 100 ML IVPB SCH ×2 (12:42→21:26)
--- NOTE | 2017-11-30 16:45 | CP.PCM.PN ---
Subjective - Date & Time of Evaluation Date of Evaluation: 11/30/17 Time of Evaluation: 16:45 - Subjective Subjective: I D NOTE CULTURE:PSEUDOMONAS AERUGENOSA SENSITIVE TO MAXIPEME ,CIPRO,GENTAMICIN HAVE STARTED MAXIPEME1 GM [id number] Objective - Vital Signs/Intake and Output Vital Signs (last 24 hours): Temp Pulse Resp BP Pulse Ox 97.7 F 115 H 20 116/65 97 11/30/17 15:40 11/30/17 15:40 11/30/17 15:40 11/30/17 15:40 11/30/17 15:40 - Medications Medications: Current Medications Acetaminophen (Tylenol 650 Mg Supp) 650 mg [place] Q6 PRN PRN Reason: Fever >100.4 F Acyclovir (Zovirax 5% Oint) 1 applic EXT TID [facility] Last Admin: 11/30/17 14:35 Dose: 1 applic Allopurinol (Zyloprim) 100 mg PO DAILY [facility] Last Admin: 11/30/17 09:37 Dose: 100 mg Atorvastatin Calcium (Lipitor) 10 mg PO HS [facility] Last Admin: 11/28/17 21:33 Dose: 10 mg Benzonatate (Tessalon Perles) 200 mg PO TID PRN PRN Reason: Cough Cholecalciferol (Vitamin D) 1,000 intlu PO DAILY [facility] Last Admin: 11/30/17 09:36 Dose: 1,000 intlu Demeclocycline HCl (Declomycin) 300 mg PO BID [facility] PRN Reason: Protocol Stop: 12/04/17 23:59 Last Admin: 11/30/17 09:35 Dose: 300 mg Dextrose (Dextrose 50% Inj) 0 ml IV STAT PRN; Protocol PRN Reason: Hypoglycemia Protocol Dimethicone (Proshield Plus Skin Protectant) 1 applic TOP Q8 PRN PRN Reason: Rash Last Admin: 11/30/17 05:53 Dose: 1 applic Emollient Ointment (Vaseline Oint) 1 pkt TOP BID@0500,1700 [facility] Last Admin: 11/30/17 04:27 Dose: 1 pkt Epoetin Rolo (Procrit) 40,000 unit SC WED [facility] Last Admin: 11/29/17 10:43 Dose: 40,000 unit Furosemide (Lasix) 40 mg PO DAILY [facility] Stop: 12/01/17 23:59 Last Admin: 11/30/17 09:54 Dose: 40 mg Glucagon (Glucagen Diagnostic Kit) 0 mg IM STAT PRN; Protocol PRN Reason: Hypoglycemia Protocol Guaifenesin (Robitussin) 200 mg PO Q6 PRN PRN Reason: Cough Last Admin: 11/30/17 11:19 Dose: 200 mg Piperacillin Sod/Tazobactam (Sod 2.25 gm/ Sodium Chloride) 100 mls @ 100 mls/ hr IVPB Q6 [facility] PRN Reason: Protocol Last Admin: 11/30/17 09:43 Dose: 100 mls/hr Cefepime HCl 1 gm/ Sodium (Chloride) 100 mls @ 100 mls/hr IVPB Q12 [facility] PRN Reason: Protocol Last Admin: 11/30/17 12:42 Dose: 100 mls/hr Insulin Detemir (Levemir) 6 units SC HS [facility] Last Admin: 11/29/17 21:18 Dose: 6 unit Insulin Human Lispro (Humalog) 0 units SC ACHS [facility] PRN Reason: Protocol Last Admin: 11/30/17 12:15 Dose: Not Given Ipratropium [place] (Atrovent) 0.5 mg IH RQID [facility] Last Admin: 11/30/17 15:02 Dose: 0.5 mg Lactobacillus Acidophilus (Bacid Acidophilus) 1 cap PO BID [facility] Last Admin: 11/30/17 09:35 Dose: 1 cap Levalbuterol HCl (Xopenex) 0.63 mg INH RQ4 PRN PRN Reason: Shortness of Breath Last Admin: 11/29/17 23:24 Dose: 0.63 mg Levalbuterol HCl (Xopenex) 0.63 mg INH RQID [facility] Last Admin: 11/30/17 15:02 Dose: 0.63 mg Levothyroxine Sodium (Synthroid) 75 mcg PO DAILY@0630 [facility] Last Admin: 11/30/17 05:54 Dose: 75 mcg Metoprolol Tartrate (Lopressor) 50 mg PO Q12 [facility] Last Admin: 11/30/17 09:56 Dose: Not Given Metronidazole (Flagyl) 500 mg PO Q8 [facility] PRN Reason: Protocol Last Admin: 11/30/17 09:36 Dose: 500 mg Multivitamins/Minerals (Therapeutic-M Tab) 1 tab PO DAILY [facility] Last Admin: 11/30/17 09:36 Dose: 1 tab Ondansetron HCl (Zofran Inj) 4 mg IVP Q4 PRN PRN Reason: Nausea/Vomiting Last Admin: 11/28/17 02:29 Dose: 4 mg Pantoprazole Sodium (Protonix Ec Tab) 40 mg PO DAILY [facility] Last Admin: 11/30/17 09:36 Dose: 40 mg Sitagliptin Phosphate (Januvia) 100 mg PO DAILY [facility] Last Admin: 11/30/17 09:36 Dose: 100 mg - Labs Labs: 11/30/17 06:20 11/30/17 06:20
--- NOTE | 2017-11-30 20:54 | CP.PCM.PN ---
Subjective - Date & Time of Evaluation Date of Evaluation: 11/30/17 Time of Evaluation: 20:49 - Subjective Subjective: Seen on rounds earlier in the day. Appears fatigued, but improved from the day before. Claims to have eaten better this morning. Increased dose of levothyroxine started this morning. Sputum culture has returned Pseudomonas aeruginosa. Discussed with ID and antibiotics changed. CXR continues to show bilateral pleural effusions and vascular congestion. Dependant edema of LE's has improved slightly from the day before. Continue to monitor LFT's, lytes and renal function. Objective - Vital Signs/Intake and Output Vital Signs (last 24 hours): Temp Pulse Resp BP Pulse Ox 97.7 F 110 H 20 116/65 97 11/30/17 15:40 11/30/17 17:11 11/30/17 15:40 11/30/17 17:11 11/30/17 15:40 - Medications Medications: Current Medications Acetaminophen (Tylenol 650 Mg Supp) 650 mg [place] Q6 PRN PRN Reason: Fever >100.4 F Acyclovir (Zovirax 5% Oint) 1 applic EXT TID [facility] Last Admin: 11/30/17 17:08 Dose: 1 applic Allopurinol (Zyloprim) 100 mg PO DAILY [facility] Last Admin: 11/30/17 09:37 Dose: 100 mg Atorvastatin Calcium (Lipitor) 10 mg PO HS [facility] Last Admin: 11/28/17 21:33 Dose: 10 mg Benzonatate (Tessalon Perles) 200 mg PO TID PRN PRN Reason: Cough Last Admin: 11/30/17 17:10 Dose: 200 mg Cholecalciferol (Vitamin D) 1,000 intlu PO DAILY [facility] Last Admin: 11/30/17 09:36 Dose: 1,000 intlu Demeclocycline HCl (Declomycin) 300 mg PO BID [facility] PRN Reason: Protocol Stop: 12/04/17 23:59 Last Admin: 11/30/17 17:07 Dose: 300 mg Dextrose (Dextrose 50% Inj) 0 ml IV STAT PRN; Protocol PRN Reason: Hypoglycemia Protocol Dimethicone (Proshield Plus Skin Protectant) 1 applic TOP Q8 PRN PRN Reason: Rash Last Admin: 11/30/17 05:53 Dose: 1 applic Emollient Ointment (Vaseline Oint) 1 pkt TOP BID@0500,1700 [facility] Last Admin: 11/30/17 17:08 Dose: 1 pkt Epoetin Rolo (Procrit) 40,000 unit SC WED [facility] Last Admin: 11/29/17 10:43 Dose: 40,000 unit Furosemide (Lasix) 40 mg PO DAILY [facility] Stop: 12/01/17 23:59 Last Admin: 11/30/17 09:54 Dose: 40 mg Glucagon (Glucagen Diagnostic Kit) 0 mg IM STAT PRN; Protocol PRN Reason: Hypoglycemia Protocol Guaifenesin (Robitussin) 200 mg PO Q6 PRN PRN Reason: Cough Last Admin: 11/30/17 11:19 Dose: 200 mg Piperacillin Sod/Tazobactam (Sod 2.25 gm/ Sodium Chloride) 100 mls @ 100 mls/ hr IVPB Q6 [facility] PRN Reason: Protocol Last Admin: 11/30/17 17:01 Dose: 100 mls/hr Cefepime HCl 1 gm/ Sodium (Chloride) 100 mls @ 100 mls/hr IVPB Q12 [facility] PRN Reason: Protocol Last Admin: 11/30/17 12:42 Dose: 100 mls/hr Insulin Detemir (Levemir) 6 units SC HS [facility] Last Admin: 11/29/17 21:18 Dose: 6 unit Insulin Human Lispro (Humalog) 0 units SC ACHS [facility] PRN Reason: Protocol Last Admin: 11/30/17 17:03 Dose: 1 u Ipratropium [place] (Atrovent) 0.5 mg IH RQID [facility] Last Admin: 11/30/17 20:13 Dose: 0.5 mg Lactobacillus Acidophilus (Bacid Acidophilus) 1 cap PO BID [facility] Last Admin: 11/30/17 17:07 Dose: 1 cap Levalbuterol HCl (Xopenex) 0.63 mg INH RQ4 PRN PRN Reason: Shortness of Breath Last Admin: 11/29/17 23:24 Dose: 0.63 mg Levalbuterol HCl (Xopenex) 0.63 mg INH RQID [facility] Last Admin: 11/30/17 20:13 Dose: 0.63 mg Levothyroxine Sodium (Synthroid) 75 mcg PO DAILY@0630 [facility] Last Admin: 11/30/17 05:54 Dose: 75 mcg Metoprolol Tartrate (Lopressor) 50 mg PO Q12 [facility] Last Admin: 11/30/17 17:11 Dose: 50 mg Metronidazole (Flagyl) 500 mg PO Q8 [facility] PRN Reason: Protocol Last Admin: 11/30/17 17:08 Dose: 500 mg Multivitamins/Minerals (Therapeutic-M Tab) 1 tab PO DAILY [facility] Last Admin: 11/30/17 09:36 Dose: 1 tab Ondansetron HCl (Zofran Inj) 4 mg IVP Q4 PRN PRN Reason: Nausea/Vomiting Last Admin: 11/28/17 02:29 Dose: 4 mg Pantoprazole Sodium (Protonix Ec Tab) 40 mg PO DAILY [facility] Last Admin: 11/30/17 09:36 Dose: 40 mg Sitagliptin Phosphate (Januvia) 100 mg PO DAILY [facility] Last Admin: 11/30/17 09:36 Dose: 100 mg - Labs Labs: 11/30/17 06:20 11/30/17 06:20 Assessment and Plan (1) Acute exacerbation of chronic obstructive bronchitis Status: Acute
[2017-11-30] MEDS: Insulin Detemir 100 Units/ml Inj SC SCH (21:31)
[2017-12-01] MEDS: Petrolatum UD PAK TOP SCH ×2 (05:41→17:43)
[2017-12-01] MEDS: Levothyroxine 75 MCG TAB PO SCH (05:42)
[2017-12-01 06:42] LABS: CALCIUM 7.7 mg/dL (8.4-10.2)
[2017-12-01] MEDS: Insulin Lispro (humaLOG) 100 Units/ml Inj SC SCH ×4 (06:45→21:01)
[2017-12-01 06:59] LABS: BASO # 0.1 K/uL (0.0-0.2); BASO % 0.8 % (0.0-2.0); EOS # 0.3 K/uL (0.0-0.7); EOS % 4.5 % (0.0-4.0); LYMPH # 0.2 K/uL (1.0-4.3); LYMPH % 2.6 % (20.0-40.0); MEAN CELL VOLUME 86.6 fl (81.0-99.0); MEAN CORPUSCULAR HGB CONC 32.3 g/dL (33.0-37.0); MEAN PLATELET VOLUME 10.7 fl (7.2-11.7); MONO # 0.4 K/uL (0.0-0.8); MONO % 6.7 % (0.0-10.0); NEUT # 5.2 K/uL (1.8-7.0); NEUT % 85.4 % (50.0-75.0); NRBC % 0.1 % (0.0-0.0); RBC 3.21 Mil/uL (3.80-5.20); RED CELL DISTRIBUTION WIDTH 25.6 % (11.5-14.5); WHITE BLOOD COUNT 6.1 K/uL (4.8-10.8)
[2017-12-01] MEDS: Ipratropium 0.02% Inhal Soln (0.5 mg/2.5 ml) UD IH SCH ×4 (07:26→19:04)
[2017-12-01] MEDS: Levalbuterol 0.63 MG/3 ML Inhal Soln UD INH SCH ×4 (07:26→19:04)
[2017-12-01] MEDS: Lactobacillus Acidophilus 500 MU Cap PO SCH ×2 (09:03→17:42)
[2017-12-01] MEDS: Pantoprazole 40 mg EC Tab PO SCH (09:05)
[2017-12-01] MEDS: Multivitamin With Minerals Tab PO SCH (09:05)
[2017-12-01] MEDS: Acyclovir 5% OINT 15 APPLIC/15 GM EXT SCH ×3 (09:05→17:43)
[2017-12-01] MEDS: Cholecalciferol 1,000 INTLU TAB PO SCH (09:05)
[2017-12-01] MEDS: Cefepime 1 GM in Sodium Chloride 0.9% 100 ML IVPB SCH ×2 (09:06→21:40)
--- NOTE | 2017-12-01 10:18 | CP.PCM.PN ---
Subjective - Date & Time of Evaluation Date of Evaluation: 12/01/17 Time of Evaluation: 10:00 - Subjective Subjective: feels well mild SOB edema is resolving Objective - Vital Signs/Intake and Output Vital Signs (last 24 hours): Temp Pulse Resp BP Pulse Ox 97.2 F L 111 H 20 129/71 99 12/01/17 08:26 12/01/17 09:05 12/01/17 08:26 12/01/17 09:05 12/01/17 08:26 - Medications Medications: Current Medications Acetaminophen (Tylenol 650 Mg Supp) 650 mg [place] Q6 PRN PRN Reason: Fever >100.4 F Acyclovir (Zovirax 5% Oint) 1 applic EXT TID [facility] Last Admin: 12/01/17 09:05 Dose: 1 applic Allopurinol (Zyloprim) 100 mg PO DAILY [facility] Last Admin: 12/01/17 09:05 Dose: 100 mg Atorvastatin Calcium (Lipitor) 10 mg PO HS [facility] Last Admin: 11/28/17 21:33 Dose: 10 mg Benzonatate (Tessalon Perles) 200 mg PO TID PRN PRN Reason: Cough Last Admin: 11/30/17 17:10 Dose: 200 mg Cholecalciferol (Vitamin D) 1,000 intlu PO DAILY [facility] Last Admin: 12/01/17 09:05 Dose: 1,000 intlu Demeclocycline HCl (Declomycin) 300 mg PO BID [facility] PRN Reason: Protocol Stop: 12/04/17 23:59 Last Admin: 12/01/17 09:03 Dose: 300 mg Dextrose (Dextrose 50% Inj) 0 ml IV STAT PRN; Protocol PRN Reason: Hypoglycemia Protocol Dimethicone (Proshield Plus Skin Protectant) 1 applic TOP Q8 PRN PRN Reason: Rash Last Admin: 11/30/17 05:53 Dose: 1 applic Emollient Ointment (Vaseline Oint) 1 pkt TOP BID@0500,1700 [facility] Last Admin: 12/01/17 05:41 Dose: 1 pkt Epoetin Rolo (Procrit) 40,000 unit SC WED [facility] Last Admin: 11/29/17 10:43 Dose: 40,000 unit Furosemide (Lasix) 40 mg PO DAILY [facility] Stop: 12/01/17 23:59 Last Admin: 12/01/17 09:04 Dose: 40 mg Glucagon (Glucagen Diagnostic Kit) 0 mg IM STAT PRN; Protocol PRN Reason: Hypoglycemia Protocol Guaifenesin (Robitussin) 200 mg PO Q6 PRN PRN Reason: Cough Last Admin: 11/30/17 11:19 Dose: 200 mg Piperacillin Sod/Tazobactam (Sod 2.25 gm/ Sodium Chloride) 100 mls @ 100 mls/ hr IVPB Q6 [facility] PRN Reason: Protocol Last Admin: 12/01/17 04:37 Dose: 100 mls/hr Cefepime HCl 1 gm/ Sodium (Chloride) 100 mls @ 100 mls/hr IVPB Q12 [facility] PRN Reason: Protocol Last Admin: 12/01/17 09:06 Dose: 100 mls/hr Insulin Detemir (Levemir) 6 units SC HS [facility] Last Admin: 11/30/17 21:31 Dose: 6 unit Insulin Human Lispro (Humalog) 0 units SC ACHS [facility] PRN Reason: Protocol Last Admin: 12/01/17 06:45 Dose: Not Given Ipratropium [place] (Atrovent) 0.5 mg IH RQID [facility] Last Admin: 12/01/17 07:26 Dose: 0.5 mg Lactobacillus Acidophilus (Bacid Acidophilus) 1 cap PO BID [facility] Last Admin: 12/01/17 09:03 Dose: 1 cap Levalbuterol HCl (Xopenex) 0.63 mg INH RQ4 PRN PRN Reason: Shortness of Breath Last Admin: 11/29/17 23:24 Dose: 0.63 mg Levalbuterol HCl (Xopenex) 0.63 mg INH RQID [facility] Last Admin: 12/01/17 07:26 Dose: 0.63 mg Levothyroxine Sodium (Synthroid) 75 mcg PO DAILY@0630 [facility] Last Admin: 12/01/17 05:42 Dose: 75 mcg Metoprolol Tartrate (Lopressor) 50 mg PO Q12 [facility] Last Admin: 12/01/17 09:05 Dose: 50 mg Metronidazole (Flagyl) 500 mg PO Q8 RUIZ PRN Reason: Protocol Last Admin: 12/01/17 09:03 Dose: 500 mg Multivitamins/Minerals (Therapeutic-M Tab) 1 tab PO DAILY [facility] Last Admin: 12/01/17 09:05 Dose: 1 tab Ondansetron HCl (Zofran Inj) 4 mg IVP Q4 PRN PRN Reason: Nausea/Vomiting Last Admin: 11/28/17 02:29 Dose: 4 mg Pantoprazole Sodium (Protonix Ec Tab) 40 mg PO DAILY [facility] Last Admin: 12/01/17 09:05 Dose: 40 mg Sitagliptin Phosphate (Januvia) 100 mg PO DAILY [facility] Last Admin: 12/01/17 09:03 Dose: 100 mg - Labs Labs: 12/01/17 06:20 12/01/17 06:20 Assessment and Plan (1) Acute on chronic systolic congestive heart failure Status: Acute (2) Acute exacerbation of chronic obstructive bronchitis Status: Acute (3) Marginal zone B-cell lymphoma Status: Acute (4) Atrial fibrillation Status: Chronic (5) B-cell lymphoma Status: Chronic (6) Pulmonary hypertension Status: Chronic
--- NOTE | 2017-12-01 12:06 | CP.PCM.PN ---
<Nakita Amanda - Last Filed: 12/01/17 12:42> Subjective - Subjective Subjective: Patient was seen and examined at bedside this morning. Alert, Awake, and oriented x 3 Still coughing, but improving. Slept better last night. Appears fatigue, but stable. States that she is still having poor appetite, but was able to eat her breakfast this morning. As per Therapist's report , patient had improvements in endurance during PT session today. Congested cough was noted, but was not productive. Still dependant edema of LE's. Labs reviewed. Hyponatremia noted. Pt is on fluid restriction, but she is not adherent to it. Patient being followed by Nephrology. Continue to monitor lytes and renal function. On antibiotics as per ID. Apparent increasing fluid overload with bilateral pleural effusions. Electrolyte imbalance with hyponatremia. CPD stage III. B-cell lymphoma. COPD. Objective - Vital Signs/Intake and Output Vital Signs (last 24 hours): Temp Pulse Resp BP Pulse Ox 97.2 F L 111 H 20 129/71 99 12/01/17 08:26 12/01/17 09:05 12/01/17 08:26 12/01/17 09:05 12/01/17 08:26 - Medications Medications: Current Medications Acetaminophen (Tylenol 650 Mg Supp) 650 mg CO Q6 PRN PRN Reason: Fever >100.4 F Acyclovir (Zovirax 5% Oint) 1 applic EXT TID [facility] Last Admin: 12/01/17 12:40 Dose: 1 applic Allopurinol (Zyloprim) 100 mg PO DAILY [facility] Last Admin: 12/01/17 09:05 Dose: 100 mg Atorvastatin Calcium (Lipitor) 10 mg PO HS [facility] Last Admin: 11/28/17 21:33 Dose: 10 mg Benzonatate (Tessalon Perles) 200 mg PO TID PRN PRN Reason: Cough Last Admin: 12/01/17 10:14 Dose: 200 mg Cholecalciferol (Vitamin D) 1,000 intlu PO DAILY [facility] Last Admin: 12/01/17 09:05 Dose: 1,000 intlu Demeclocycline HCl (Declomycin) 300 mg PO BID [facility] PRN Reason: Protocol Stop: 12/04/17 23:59 Last Admin: 12/01/17 09:03 Dose: 300 mg Dextrose (Dextrose 50% Inj) 0 ml IV STAT PRN; Protocol PRN Reason: Hypoglycemia Protocol Dimethicone (Proshield Plus Skin Protectant) 1 applic TOP Q8 PRN PRN Reason: Rash Last Admin: 11/30/17 05:53 Dose: 1 applic Emollient Ointment (Vaseline Oint) 1 pkt TOP BID@0500,1700 [facility] Last Admin: 12/01/17 05:41 Dose: 1 pkt Epoetin Rolo (Procrit) 40,000 unit SC WED [facility] Last Admin: 11/29/17 10:43 Dose: 40,000 unit Furosemide (Lasix) 40 mg PO DAILY [facility] Stop: 12/01/17 23:59 Last Admin: 12/01/17 09:04 Dose: 40 mg Glucagon (Glucagen Diagnostic Kit) 0 mg IM STAT PRN; Protocol PRN Reason: Hypoglycemia Protocol Guaifenesin (Robitussin) 200 mg PO Q6 PRN PRN Reason: Cough Last Admin: 11/30/17 11:19 Dose: 200 mg Piperacillin Sod/Tazobactam (Sod 2.25 gm/ Sodium Chloride) 100 mls @ 100 mls/ hr IVPB Q6 [facility] PRN Reason: Protocol Last Admin: 12/01/17 10:16 Dose: 100 mls/hr Cefepime HCl 1 gm/ Sodium (Chloride) 100 mls @ 100 mls/hr IVPB Q12 [facility] PRN Reason: Protocol Last Admin: 12/01/17 09:06 Dose: 100 mls/hr Insulin Detemir (Levemir) 6 units SC HS [facility] Last Admin: 11/30/17 21:31 Dose: 6 unit Insulin Human Lispro (Humalog) 0 units SC ACHS [facility] PRN Reason: Protocol Last Admin: 12/01/17 12:41 Dose: 1 u Ipratropium [place] (Atrovent) 0.5 mg IH RQID [facility] Last Admin: 12/01/17 11:20 Dose: 0.5 mg Lactobacillus Acidophilus (Bacid Acidophilus) 1 cap PO BID [facility] Last Admin: 12/01/17 09:03 Dose: 1 cap Levalbuterol HCl (Xopenex) 0.63 mg INH RQ4 PRN PRN Reason: Shortness of Breath Last Admin: 11/29/17 23:24 Dose: 0.63 mg Levalbuterol HCl (Xopenex) 0.63 mg INH RQID [facility] Last Admin: 12/01/17 11:20 Dose: 0.63 mg Levothyroxine Sodium (Synthroid) 75 mcg PO DAILY@0630 [facility] Last Admin: 12/01/17 05:42 Dose: 75 mcg Metoprolol Tartrate (Lopressor) 50 mg PO Q12 [facility] Last Admin: 12/01/17 09:05 Dose: 50 mg Metronidazole (Flagyl) 500 mg PO Q8 [facility] PRN Reason: Protocol Last Admin: 12/01/17 09:03 Dose: 500 mg Multivitamins/Minerals (Therapeutic-M Tab) 1 tab PO DAILY [facility] Last Admin: 12/01/17 09:05 Dose: 1 tab Ondansetron HCl (Zofran Inj) 4 mg IVP Q4 PRN PRN Reason: Nausea/Vomiting Last Admin: 11/28/17 02:29 Dose: 4 mg Pantoprazole Sodium (Protonix Ec Tab) 40 mg PO DAILY [facility] Last Admin: 12/01/17 09:05 Dose: 40 mg Sitagliptin Phosphate (Januvia) 100 mg PO DAILY [facility] Last Admin: 12/01/17 09:03 Dose: 100 mg - Labs Labs: 12/01/17 06:20 12/01/17 06:20 - Constitutional Appears: Non-toxic, No Acute Distress - Eye Exam Eye Exam: Normal appearance - ENT Exam ENT Exam: Mucous Membranes Dry - Respiratory Exam Respiratory Exam: NORMAL BREATHING PATTERN Additional comments: Scattered sonorous rhonchi were appreciated in both lower lobes with medium rales. No audible wheezing. - Cardiovascular Exam Cardiovascular Exam: Irregular Rhythm Additional comments: No central or peripheral cyanosis noted. - Extremities Exam Additional comments: Dependent edema in both lower extremities Assessment and Plan - Assessment and Plan (Free Text) Plan: Continue with current treatment Follow up respiratory status Follow up oxygen saturation <Houston Vazquez - Last Filed: 12/01/17 13:27> Subjective - Date & Time of Evaluation Date of Evaluation: 12/01/17 Time of Evaluation: 12:06 - Subjective Subjective: Seen and examined together with the residents on rounds earlier today. Physical findings were discussed and any ancillary studies reviewed. The case was discussed and an assessment and plan of further care was formulated. The entry made by the resident in the EMR is an accurate description of today's encounter. Objective - Vital Signs/Intake and Output Vital Signs (last 24 hours): Temp Pulse Resp BP Pulse Ox 97.2 F L 111 H 20 129/71 99 12/01/17 08:26 12/01/17 09:05 12/01/17 08:26 12/01/17 09:05 12/01/17 08:26 - Medications Medications: Current Medications Acetaminophen (Tylenol 650 Mg Supp) 650 mg CO Q6 PRN PRN Reason: Fever >100.4 F Acyclovir (Zovirax 5% Oint) 1 applic EXT TID [facility] Last Admin: 12/01/17 09:05 Dose: 1 applic Allopurinol (Zyloprim) 100 mg PO DAILY [facility] Last Admin: 12/01/17 09:05 Dose: 100 mg Atorvastatin Calcium (Lipitor) 10 mg PO HS [facility] Last Admin: 11/28/17 21:33 Dose: 10 mg Benzonatate (Tessalon Perles) 200 mg PO TID PRN PRN Reason: Cough Last Admin: 12/01/17 10:14 Dose: 200 mg Cholecalciferol (Vitamin D) 1,000 intlu PO DAILY [facility] Last Admin: 12/01/17 09:05 Dose: 1,000 intlu Demeclocycline HCl (Declomycin) 300 mg PO BID [facility] PRN Reason: Protocol Stop: 12/04/17 23:59 Last Admin: 12/01/17 09:03 Dose: 300 mg Dextrose (Dextrose 50% Inj) 0 ml IV STAT PRN; Protocol PRN Reason: Hypoglycemia Protocol Dimethicone (Proshield Plus Skin Protectant) 1 applic TOP Q8 PRN PRN Reason: Rash Last Admin: 11/30/17 05:53 Dose: 1 applic Emollient Ointment (Vaseline Oint) 1 pkt TOP BID@0500,1700 [facility] Last Admin: 12/01/17 05:41 Dose: 1 pkt Epoetin Rolo (Procrit) 40,000 unit SC WED [facility] Last Admin: 11/29/17 10:43 Dose: 40,000 unit Furosemide (Lasix) 40 mg PO DAILY [facility] Stop: 12/01/17 23:59 Last Admin: 12/01/17 09:04 Dose: 40 mg Glucagon (Glucagen Diagnostic Kit) 0 mg IM STAT PRN; Protocol PRN Reason: Hypoglycemia Protocol Guaifenesin (Robitussin) 200 mg PO Q6 PRN PRN Reason: Cough Last Admin: 11/30/17 11:19 Dose: 200 mg Piperacillin Sod/Tazobactam (Sod 2.25 gm/ Sodium Chloride) 100 mls @ 100 mls/ hr IVPB Q6 [facility] PRN Reason: Protocol Last Admin: 12/01/17 10:16 Dose: 100 mls/hr Cefepime HCl 1 gm/ Sodium (Chloride) 100 mls @ 100 mls/hr IVPB Q12 [facility] PRN Reason: Protocol Last Admin: 12/01/17 09:06 Dose: 100 mls/hr Insulin Detemir (Levemir) 6 units SC HS [facility] Last Admin: 11/30/17 21:31 Dose: 6 unit Insulin Human Lispro (Humalog) 0 units SC ACHS [facility] PRN Reason: Protocol Last Admin: 12/01/17 06:45 Dose: Not Given Ipratropium [place] (Atrovent) 0.5 mg IH RQID [facility] Last Admin: 12/01/17 11:20 Dose: 0.5 mg Lactobacillus Acidophilus (Bacid Acidophilus) 1 cap PO BID [facility] Last Admin: 12/01/17 09:03 Dose: 1 cap Levalbuterol HCl (Xopenex) 0.63 mg INH RQ4 PRN PRN Reason: Shortness of Breath Last Admin: 11/29/17 23:24 Dose: 0.63 mg Levalbuterol HCl (Xopenex) 0.63 mg INH RQID [facility] Last Admin: 12/01/17 11:20 Dose: 0.63 mg Levothyroxine Sodium (Synthroid) 75 mcg PO DAILY@0630 [facility] Last Admin: 12/01/17 05:42 Dose: 75 mcg Metoprolol Tartrate (Lopressor) 50 mg PO Q12 [facility] Last Admin: 12/01/17 09:05 Dose: 50 mg Metronidazole (Flagyl) 500 mg PO Q8 [facility] PRN Reason: Protocol Last Admin: 12/01/17 09:03 Dose: 500 mg Multivitamins/Minerals (Therapeutic-M Tab) 1 tab PO DAILY [facility] Last Admin: 12/01/17 09:05 Dose: 1 tab Ondansetron HCl (Zofran Inj) 4 mg IVP Q4 PRN PRN Reason: Nausea/Vomiting Last Admin: 11/28/17 02:29 Dose: 4 mg Pantoprazole Sodium (Protonix Ec Tab) 40 mg PO DAILY [facility] Last Admin: 12/01/17 09:05 Dose: 40 mg Sitagliptin Phosphate (Januvia) 100 mg PO DAILY [facility] Last Admin: 12/01/17 09:03 Dose: 100 mg - Labs Labs: 12/01/17 06:20 12/01/17 06:20 Assessment and Plan (1) Acute exacerbation of chronic obstructive bronchitis Status: Acute
[2017-12-01] MEDS ORDERED: Magnesium Sulfate 1 GM in Dextrose 5% In Water 100 ML IVPB SCH (14:52)
[2017-12-01] MEDS ORDERED: Potassium Chloride 20 mEq ER Tab PO ONE (14:52)
--- NOTE | 2017-12-01 17:27 | CP.PCM.PN ---
Subjective - Date & Time of Evaluation Date of Evaluation: 12/01/17 Time of Evaluation: 17:21 - Subjective Subjective: Nephrology Consultation Note Assessment: Stable Hyponatremia likely due to CHF and some contribution by elevated ADH which is suggested by elevated urine Na and osmol Hypokalemia, hypomagnesemia hypothyroidism Acute Kidney Injury (N17.9) Diabetic chronic Kidney Disease (E11.22) Hypertensive Chronic Kidney Disease (I12.9) Chronic Kidney Disease (N18.3) Stage 3 Anemia thrombocytopenia, MDS Plan No acute need for renal replacement therapy at this time.7 Hypertension control with meds as ordered. Maintain hemodynamics stable. Avoid hypotension. Patient not on ACEI/ARB , consider to add once stable renal function Monitor Input/Output, daily weights and renal function with basic metabolic panel supplemented KDUR and Mag increased lasix to 40 mg bid. oral fluid restriction to 1000 mL/day. on demeclocycline januvia renally dosed to 50 mg/day Dose meds/antibiotics for reduced GFR. Avoid fleets enema/magnesium based laxatives. Avoid nephrotoxins/NSAIDs/ iodinated contrast (unless needed emergently) Glycemic control Further work up for as per primary team Thanks for allowing me to participate in care of your patient. Will follow patient with you. Please call if any Qs. d/w family as well Dr Ryland Trevizo Office: [phone] Subjective: Noted events overnight. Patients feels okay. Denies chest pain, palpitation, shortness of breath, c/o leg swelling. All other negative Physical Examination: General Appearance: Comfortable, in no acute respiratory distress, co-operative . Vitals reviewed and noted as below Head; Atraumatic, normocephalic ENT: no ulcers no thrush. Tongue is midline. Oropharynx: no rash or ulcers. EYES: Pupils are equal, round and reactive to light accommodation. Eye muscles and extraocular movement intact. Sclera is anicteric. Neck; supple no lymphadenopathy, no thyromegaly or bruit Lungs: Normal respiratory rate/effort. Breath sounds bilateral rales + Heart: Normal rate. s1s2 normal. No rub or gallop. Extremities: 2+ edema. No varicose veins Neurological: Patient is alert, awake and oriented to person, place and time. No focal deficit. Strength bilateral appropriate and equal Skin: Warm and dry. Normal turgor. No rash. Palpitation: Normal elasticity for age Abdomen: Abdomen is soft. Bowel sounds +. There is no abdominal tenderness, no guarding/rigidity no organomegaly Psych: limited insight and normal affect/mood MSK: no joint tenderness or swelling. Digits and nails normal, no deformity : kidney or bladder not palpable Labs/imaging reviewed. Past medical history, past surgical history, family history, social history, allergy reviewed and noted as below Family hx: no hx of CKD. Rest non-contributory Objective - Vital Signs/Intake and Output Vital Signs (last 24 hours): Temp Pulse Resp BP Pulse Ox 96.8 F L 96 H 20 108/70 99 12/01/17 15:33 12/01/17 15:33 12/01/17 15:33 12/01/17 15:33 12/01/17 15:33 - Medications Medications: Current Medications Acetaminophen (Tylenol 650 Mg Supp) 650 mg [place] Q6 PRN PRN Reason: Fever >100.4 F Acyclovir (Zovirax 5% Oint) 1 applic EXT TID [facility] Last Admin: 12/01/17 12:40 Dose: 1 applic Allopurinol (Zyloprim) 100 mg PO DAILY [facility] Last Admin: 12/01/17 09:05 Dose: 100 mg Atorvastatin Calcium (Lipitor) 10 mg PO HS [facility] Last Admin: 11/28/17 21:33 Dose: 10 mg Benzonatate (Tessalon Perles) 200 mg PO TID PRN PRN Reason: Cough Last Admin: 12/01/17 10:14 Dose: 200 mg Cholecalciferol (Vitamin D) 1,000 intlu PO DAILY [facility] Last Admin: 12/01/17 09:05 Dose: 1,000 intlu Demeclocycline HCl (Declomycin) 300 mg PO BID [facility] PRN Reason: Protocol Stop: 12/04/17 23:59 Last Admin: 12/01/17 09:03 Dose: 300 mg Dextrose (Dextrose 50% Inj) 0 ml IV STAT PRN; Protocol PRN Reason: Hypoglycemia Protocol Dimethicone (Proshield Plus Skin Protectant) 1 applic TOP Q8 PRN PRN Reason: Rash Last Admin: 11/30/17 05:53 Dose: 1 applic Emollient Ointment (Vaseline Oint) 1 pkt TOP BID@0500,1700 [facility] Last Admin: 12/01/17 05:41 Dose: 1 pkt Epoetin Rolo (Procrit) 40,000 unit SC WED [facility] Last Admin: 11/29/17 10:43 Dose: 40,000 unit Furosemide (Lasix) 40 mg PO BID [facility] Glucagon (Glucagen Diagnostic Kit) 0 mg IM STAT PRN; Protocol PRN Reason: Hypoglycemia Protocol Guaifenesin (Robitussin) 200 mg PO Q6 PRN PRN Reason: Cough Last Admin: 11/30/17 11:19 Dose: 200 mg Piperacillin Sod/Tazobactam (Sod 2.25 gm/ Sodium Chloride) 100 mls @ 100 mls/ hr IVPB Q6 [facility] PRN Reason: Protocol Last Admin: 12/01/17 16:45 Dose: 100 mls/hr Cefepime HCl 1 gm/ Sodium (Chloride) 100 mls @ 100 mls/hr IVPB Q12 [facility] PRN Reason: Protocol Last Admin: 12/01/17 09:06 Dose: 100 mls/hr Insulin Detemir (Levemir) 6 units SC HS [facility] Last Admin: 11/30/17 21:31 Dose: 6 unit Insulin Human Lispro (Humalog) 0 units SC ACHS [facility] PRN Reason: Protocol Last Admin: 12/01/17 12:41 Dose: 1 u Ipratropium [place] (Atrovent) 0.5 mg IH RQID [facility] Last Admin: 12/01/17 15:13 Dose: 0.5 mg Lactobacillus Acidophilus (Bacid Acidophilus) 1 cap PO BID [facility] Last Admin: 12/01/17 09:03 Dose: 1 cap Levalbuterol HCl (Xopenex) 0.63 mg INH RQ4 PRN PRN Reason: Shortness of Breath Last Admin: 11/29/17 23:24 Dose: 0.63 mg Levalbuterol HCl (Xopenex) 0.63 mg INH RQID [facility] Last Admin: 12/01/17 15:13 Dose: 0.63 mg Levothyroxine Sodium (Synthroid) 75 mcg PO DAILY@0630 [facility] Last Admin: 12/01/17 05:42 Dose: 75 mcg Magnesium Oxide (Mag-Ox) 400 mg PO BID [facility] Metoprolol Tartrate (Lopressor) 50 mg PO Q12 [facility] Last Admin: 12/01/17 09:05 Dose: 50 mg Metronidazole (Flagyl) 500 mg PO Q8 [facility] PRN Reason: Protocol Last Admin: 12/01/17 09:03 Dose: 500 mg Multivitamins/Minerals (Therapeutic-M Tab) 1 tab PO DAILY [facility] Last Admin: 12/01/17 09:05 Dose: 1 tab Ondansetron HCl (Zofran Inj) 4 mg IVP Q4 PRN PRN Reason: Nausea/Vomiting Last Admin: 11/28/17 02:29 Dose: 4 mg Pantoprazole Sodium (Protonix Ec Tab) 40 mg PO DAILY [facility] Last Admin: 12/01/17 09:05 Dose: 40 mg Sitagliptin Phosphate (Januvia) 50 mg PO DAILY [facility] - Labs Labs: 12/01/17 06:20 12/01/17 06:20
[2017-12-01] MEDS: Magnesium Oxide 400 mg Tab UD PO SCH (19:28)
[2017-12-01] MEDS: Magnesium Sulfate 1 GM in Dextrose 5% In Water 100 ML IVPB SCH ×2 (19:28→20:51)
[2017-12-01] MEDS: Insulin Detemir 100 Units/ml Inj SC SCH (21:02)
[2017-12-01 23:45] LABS: OSMOLALITY,URINE 313 mosm/kg (300-1000)
[2017-12-02] MEDS: Petrolatum UD PAK TOP SCH ×2 (05:00→16:49)
[2017-12-02] MEDS: Levothyroxine 75 MCG TAB PO SCH (05:47)
[2017-12-02] MEDS: Insulin Lispro (humaLOG) 100 Units/ml Inj SC SCH ×4 (07:01→21:23)
[2017-12-02] MEDS: Levalbuterol 0.63 MG/3 ML Inhal Soln UD INH SCH ×4 (07:14→19:15)
[2017-12-02] MEDS: Ipratropium 0.02% Inhal Soln (0.5 mg/2.5 ml) UD IH SCH ×4 (07:14→19:15)
[2017-12-02 07:26] LABS: CALCIUM 7.5 mg/dL (8.4-10.2)
[2017-12-02] MEDS: Cholecalciferol 1,000 INTLU TAB PO SCH (08:19)
[2017-12-02] MEDS: Magnesium Oxide 400 mg Tab UD PO SCH ×2 (08:19→16:50)
[2017-12-02] MEDS: Cefepime 1 GM in Sodium Chloride 0.9% 100 ML IVPB SCH ×2 (08:20→20:56)
[2017-12-02] MEDS: Multivitamin With Minerals Tab PO SCH (08:20)
[2017-12-02] MEDS: Acyclovir 5% OINT 15 APPLIC/15 GM EXT SCH ×3 (08:20→16:49)
[2017-12-02] MEDS: Pantoprazole 40 mg EC Tab PO SCH (08:22)
[2017-12-02] MEDS: Lactobacillus Acidophilus 500 MU Cap PO SCH ×2 (08:22→16:46)
--- NOTE | 2017-12-02 12:26 | CP.PCM.PN ---
Subjective - Date & Time of Evaluation Date of Evaluation: 12/02/17 Time of Evaluation: 12:23 - Subjective Subjective: Vital signs have remained stable, she continues to be afebrile. Less cough overnight, less chest congestion. Oxygenation has been okay on regular nasal canula at 2 LPM. Scattered rhonchi and expiratory wheezes bilaterally. No areas of bronchial breathing. Few scattered medium rales posteriorly. Heart sounds are distant, tachycardic around 100 BPM, irregular. Abdomen is soft and non-tender. Dependant edema ++, no cyanosis. Seems a little stronger/less fatigued, but still quite debilitated. Will request repeat PCXR to evaluate congestive changes seen before. Presently on cefepime and cough/sputum is decreased. Objective - Vital Signs/Intake and Output Vital Signs (last 24 hours): Temp Pulse Resp BP Pulse Ox 97.9 F 92 H 18 118/69 99 12/02/17 08:10 12/02/17 12:05 12/02/17 08:10 12/02/17 08:19 12/02/17 08:10 - Medications Medications: Current Medications Acetaminophen (Tylenol 650 Mg Supp) 650 mg [place] Q6 PRN PRN Reason: Fever >100.4 F Acyclovir (Zovirax 5% Oint) 1 applic EXT TID [facility] Last Admin: 12/02/17 08:20 Dose: 1 applic Allopurinol (Zyloprim) 100 mg PO DAILY [facility] Last Admin: 12/02/17 08:19 Dose: 100 mg Atorvastatin Calcium (Lipitor) 10 mg PO HS [facility] Last Admin: 11/28/17 21:33 Dose: 10 mg Benzonatate (Tessalon Perles) 200 mg PO TID PRN PRN Reason: Cough Last Admin: 12/01/17 10:14 Dose: 200 mg Cholecalciferol (Vitamin D) 1,000 intlu PO DAILY [facility] Last Admin: 12/02/17 08:19 Dose: 1,000 intlu Demeclocycline HCl (Declomycin) 300 mg PO BID [facility] PRN Reason: Protocol Stop: 12/04/17 23:59 Last Admin: 12/02/17 08:19 Dose: 300 mg Dextrose (Dextrose 50% Inj) 0 ml IV STAT PRN; Protocol PRN Reason: Hypoglycemia Protocol Dimethicone (Proshield Plus Skin Protectant) 1 applic TOP Q8 PRN PRN Reason: Rash Last Admin: 11/30/17 05:53 Dose: 1 applic Emollient Ointment (Vaseline Oint) 1 pkt TOP BID@0500,1700 [facility] Last Admin: 12/02/17 05:00 Dose: 1 pkt Epoetin Rolo (Procrit) 40,000 unit SC WED [facility] Last Admin: 11/29/17 10:43 Dose: 40,000 unit Furosemide (Lasix) 40 mg PO BID [facility] Glucagon (Glucagen Diagnostic Kit) 0 mg IM STAT PRN; Protocol PRN Reason: Hypoglycemia Protocol Guaifenesin (Robitussin) 200 mg PO Q6 PRN PRN Reason: Cough Last Admin: 11/30/17 11:19 Dose: 200 mg Piperacillin Sod/Tazobactam (Sod 2.25 gm/ Sodium Chloride) 100 mls @ 100 mls/ hr IVPB Q6 [facility] PRN Reason: Protocol Last Admin: 12/02/17 09:44 Dose: 100 mls/hr Cefepime HCl 1 gm/ Sodium (Chloride) 100 mls @ 100 mls/hr IVPB Q12 [facility] PRN Reason: Protocol Last Admin: 12/02/17 08:20 Dose: 100 mls/hr Insulin Detemir (Levemir) 6 units SC HS [facility] Last Admin: 12/01/17 21:02 Dose: 6 unit Insulin Human Lispro (Humalog) 0 units SC ACHS [facility] PRN Reason: Protocol Last Admin: 12/02/17 11:52 Dose: Not Given Ipratropium [place] (Atrovent) 0.5 mg IH RQID [facility] Last Admin: 12/02/17 11:16 Dose: 0.5 mg Lactobacillus Acidophilus (Bacid Acidophilus) 1 cap PO BID [facility] Last Admin: 12/02/17 08:22 Dose: 1 cap Levalbuterol HCl (Xopenex) 0.63 mg INH RQ4 PRN PRN Reason: Shortness of Breath Last Admin: 11/29/17 23:24 Dose: 0.63 mg Levalbuterol HCl (Xopenex) 0.63 mg INH RQID [facility] Last Admin: 12/02/17 11:16 Dose: 0.63 mg Levothyroxine Sodium (Synthroid) 75 mcg PO DAILY@0630 [facility] Last Admin: 12/02/17 05:47 Dose: 75 mcg Magnesium Oxide (Mag-Ox) 400 mg PO BID [facility] Last Admin: 12/02/17 08:19 Dose: 400 mg Metoprolol Tartrate (Lopressor) 50 mg PO Q12 [facility] Last Admin: 12/02/17 08:19 Dose: 50 mg Multivitamins/Minerals (Therapeutic-M Tab) 1 tab PO DAILY [facility] Last Admin: 12/02/17 08:20 Dose: 1 tab Ondansetron HCl (Zofran Inj) 4 mg IVP Q4 PRN PRN Reason: Nausea/Vomiting Last Admin: 12/01/17 17:56 Dose: 4 mg Pantoprazole Sodium (Protonix Ec Tab) 40 mg PO DAILY [facility] Last Admin: 12/02/17 08:22 Dose: 40 mg Sitagliptin Phosphate (Januvia) 50 mg PO DAILY [facility] Last Admin: 12/02/17 08:20 Dose: 50 mg - Labs Labs: 12/01/17 06:20 12/02/17 05:30 Assessment and Plan (1) Acute exacerbation of chronic obstructive bronchitis Status: Acute
[2017-12-02] MEDS ORDERED: Potassium Chloride 20 mEq ER Tab PO ONE (13:31)
--- NOTE | 2017-12-02 13:32 | CP.PCM.PN ---
Subjective - Date & Time of Evaluation Date of Evaluation: 12/02/17 Time of Evaluation: 13:31 - Subjective Subjective: Nephrology Consultation Note Assessment: Stable Hyponatremia likely due to CHF and some contribution by elevated ADH which is suggested by elevated urine Na and osmol Hypokalemia, hypomagnesemia hypothyroidism Acute Kidney Injury (N17.9) Diabetic chronic Kidney Disease (E11.22) Hypertensive Chronic Kidney Disease (I12.9) Chronic Kidney Disease (N18.3) Stage 3 Anemia thrombocytopenia, MDS Plan No acute need for renal replacement therapy at this time. BP stable Monitor Input/Output, daily weights and renal function with basic metabolic panel icontinue lasix 40 of po k ordered on demeclocycline januvia renally dosed to 50 mg/day Subjective: No complaints feels ok Physical Examination: General Appearance: Comfortable, in no acute respiratory distress, co-operative . Vitals reviewed and noted as below Head; Atraumatic, normocephalic ENT: no ulcers no thrush. Tongue is midline. Oropharynx: no rash or ulcers. EYES: Pupils are equal, round and reactive to light accommodation. Eye muscles and extraocular movement intact. Sclera is anicteric. Neck; supple no lymphadenopathy, no thyromegaly or bruit Lungs: Normal respiratory rate/effort. Breath sounds bilateral rales + Heart: Normal rate. s1s2 normal. No rub or gallop. Extremities: 2+ edema. No varicose veins Neurological: Patient is alert, awake and oriented to person, place and time. No focal deficit. Strength bilateral appropriate and equal Skin: Warm and dry. Normal turgor. No rash. Palpitation: Normal elasticity for age Abdomen: Abdomen is soft. Bowel sounds +. There is no abdominal tenderness, no guarding/rigidity no organomegaly Psych: limited insight and normal affect/mood MSK: no joint tenderness or swelling. Digits and nails normal, no deformity : kidney or bladder not palpable Labs/imaging reviewed. Past medical history, past surgical history, family history, social history, allergy reviewed and noted as below Family hx: no hx of CKD. Rest non-contributory Objective - Vital Signs/Intake and Output Vital Signs (last 24 hours): Temp Pulse Resp BP Pulse Ox 97.9 F 92 H 18 118/69 99 12/02/17 08:10 12/02/17 12:05 12/02/17 08:10 12/02/17 08:19 12/02/17 08:10 - Medications Medications: Current Medications Acetaminophen (Tylenol 650 Mg Supp) 650 mg [place] Q6 PRN PRN Reason: Fever >100.4 F Acyclovir (Zovirax 5% Oint) 1 applic EXT TID [facility] [place] Last Admin: 12/02/17 12:49 Dose: 1 applic Allopurinol (Zyloprim) 100 mg PO DAILY [facility] Last Admin: 12/02/17 08:19 Dose: 100 mg Atorvastatin Calcium (Lipitor) 10 mg PO HS [facility] [place] Last Admin: 11/28/17 21:33 Dose: 10 mg Benzonatate (Tessalon Perles) 200 mg PO TID PRN PRN Reason: Cough Last Admin: 12/01/17 10:14 Dose: 200 mg Cholecalciferol (Vitamin D) 1,000 intlu PO DAILY [facility] [place] Last Admin: 12/02/17 08:19 Dose: 1,000 intlu Demeclocycline HCl (Declomycin) 300 mg PO BID [facility] PRN Reason: Protocol Stop: 12/04/17 23:59 Last Admin: 12/02/17 08:19 Dose: 300 mg Dextrose (Dextrose 50% Inj) 0 ml IV STAT PRN; Protocol PRN Reason: Hypoglycemia Protocol Dimethicone (Proshield Plus Skin Protectant) 1 applic TOP Q8 PRN PRN Reason: Rash Last Admin: 11/30/17 05:53 Dose: 1 applic Emollient Ointment (Vaseline Oint) 1 pkt TOP BID@0500,1700 [facility] [place] Last Admin: 12/02/17 05:00 Dose: 1 pkt Epoetin Rolo (Procrit) 40,000 unit SC WED [facility] [place] Last Admin: 11/29/17 10:43 Dose: 40,000 unit Furosemide (Lasix) 40 mg PO BID [facility] [place] Glucagon (Glucagen Diagnostic Kit) 0 mg IM STAT PRN; Protocol PRN Reason: Hypoglycemia Protocol Guaifenesin (Robitussin) 200 mg PO Q6 PRN PRN Reason: Cough Last Admin: 11/30/17 11:19 Dose: 200 mg Piperacillin Sod/Tazobactam (Sod 2.25 gm/ Sodium Chloride) 100 mls @ 100 mls/ hr IVPB Q6 [facility] PRN Reason: Protocol Last Admin: 08/18/18 09:44 Dose: 100 mls/hr Cefepime HCl 1 gm/ Sodium (Chloride) 100 mls @ 100 mls/hr IVPB Q12 [facility] PRN Reason: Protocol Last Admin: 12/02/17 08:20 Dose: 100 mls/hr Insulin Detemir (Levemir) 6 units SC HS [facility] [place] Last Admin: 12/01/17 21:02 Dose: 6 unit Insulin Human Lispro (Humalog) 0 units SC ACHS [facility] PRN Reason: Protocol Last Admin: 12/02/17 11:52 Dose: Not Given Ipratropium [place] (Atrovent) 0.5 mg IH RQID [facility] [place] Last Admin: 12/02/17 11:16 Dose: 0.5 mg Lactobacillus Acidophilus (Bacid Acidophilus) 1 cap PO BID [facility] [place] Last Admin: 12/02/17 08:22 Dose: 1 cap Levalbuterol HCl (Xopenex) 0.63 mg INH RQ4 PRN PRN Reason: Shortness of Breath Last Admin: 11/29/17 23:24 Dose: 0.63 mg Levalbuterol HCl (Xopenex) 0.63 mg INH RQID [facility] [place] Last Admin: 12/02/17 11:16 Dose: 0.63 mg Levothyroxine Sodium (Synthroid) 75 mcg PO DAILY@0630 [facility] [place] Last Admin: 12/02/17 05:47 Dose: 75 mcg Magnesium Oxide (Mag-Ox) 400 mg PO BID [facility] [place] Last Admin: 12/02/17 08:19 Dose: 400 mg Metoprolol Tartrate (Lopressor) 50 mg PO Q12 [facility] [place] Last Admin: 12/02/17 08:19 Dose: 50 mg Multivitamins/Minerals (Therapeutic-M Tab) 1 tab PO DAILY [facility] [place] Last Admin: 12/02/17 08:20 Dose: 1 tab Ondansetron HCl (Zofran Inj) 4 mg IVP Q4 PRN PRN Reason: Nausea/Vomiting Last Admin: 12/01/17 17:56 Dose: 4 mg Pantoprazole Sodium (Protonix Ec Tab) 40 mg PO DAILY [facility] [place] Last Admin: 12/02/17 08:22 Dose: 40 mg Sitagliptin Phosphate (Januvia) 50 mg PO DAILY [facility] [place] Last Admin: 12/02/17 08:20 Dose: 50 mg - Labs Labs: 12/01/17 06:20 12/02/17 05:30
--- NOTE | 2017-12-02 16:50 | RAD ---
Date of service: 12/02/2017 HISTORY: pleural effusion COMPARISON: 11/27/2017 FINDINGS: LUNGS: Right basilar opacity. This may be due to pneumonia or dependent pleural fluid or pulmonary edema. PLEURA: Small bilateral pleural effusion. CARDIOVASCULAR: Cardiomegaly with congestive change. Findings suggestive of congestive heart failure. Right basilar opacity may indicate pneumonia or pulmonary edema. . Right central venous infusion port. Sternotomy wires. OSSEOUS STRUCTURES: No significant abnormalities. VISUALIZED UPPER ABDOMEN: Normal. OTHER FINDINGS: None. IMPRESSION: Cardiomegaly with congestive change and bilateral small pleural effusion. Right basilar opacity. Findings may reflect pneumonia as well as congestive heart failure or possibly mild pulmonary edema.
[2017-12-02] MEDS: Insulin Detemir 100 Units/ml Inj SC SCH (21:21)
[2017-12-03] MEDS: Levothyroxine 75 MCG TAB PO SCH (06:29)
[2017-12-03] MEDS: Petrolatum UD PAK TOP SCH ×2 (06:31→17:11)
[2017-12-03] MEDS: Insulin Lispro (humaLOG) 100 Units/ml Inj SC SCH ×3 (07:35→17:11)
[2017-12-03] MEDS: Ipratropium 0.02% Inhal Soln (0.5 mg/2.5 ml) UD IH SCH ×4 (08:17→19:17)
[2017-12-03] MEDS: Levalbuterol 0.63 MG/3 ML Inhal Soln UD INH SCH ×4 (08:17→19:17)
[2017-12-03] MEDS: Magnesium Oxide 400 mg Tab UD PO SCH ×2 (08:58→17:11)
[2017-12-03] MEDS: Acyclovir 5% OINT 15 APPLIC/15 GM EXT SCH ×3 (08:59→17:18)
[2017-12-03] MEDS: Cholecalciferol 1,000 INTLU TAB PO SCH (08:59)
[2017-12-03] MEDS: Pantoprazole 40 mg EC Tab PO SCH (09:03)
[2017-12-03] MEDS: Cefepime 1 GM in Sodium Chloride 0.9% 100 ML IVPB SCH ×2 (09:05→21:32)
[2017-12-03] MEDS: Lactobacillus Acidophilus 500 MU Cap PO SCH ×3 (12:27→21:33)
[2017-12-03] MEDS: Multivitamin With Minerals Tab PO SCH (12:27)
--- NOTE | 2017-12-03 16:34 | CP.PCM.PN ---
Subjective - Date & Time of Evaluation Date of Evaluation: 12/03/17 Time of Evaluation: 16:25 - Subjective Subjective: I D NOTE STILL FATIGUED ,COUGH IS LESS\ WBC:6.1,PLATELETS :62,CREATININE:1.3 LUNGS:EXPIRATORY WHEEZING,SOME RHONCHI BILATERALLY CONTINUE MEROPENEM AWAIT CXRADJUST DOSE OF ZOSYN Objective - Vital Signs/Intake and Output Vital Signs (last 24 hours): Temp Pulse Resp BP Pulse Ox 97.2 F L 92 H 18 138/76 99 12/03/17 07:52 12/03/17 08:58 12/03/17 07:52 12/03/17 08:58 12/03/17 07:52 - Medications Medications: Current Medications Acetaminophen (Tylenol 650 Mg Supp) 650 mg [place] Q6 PRN PRN Reason: Fever >100.4 F Acyclovir (Zovirax 5% Oint) 1 applic EXT TID [facility] Last Admin: 12/03/17 12:30 Dose: 1 applic Allopurinol (Zyloprim) 100 mg PO DAILY [facility] Last Admin: 12/03/17 09:00 Dose: 100 mg Atorvastatin Calcium (Lipitor) 10 mg PO HS [facility] Last Admin: 11/28/17 21:33 Dose: 10 mg Benzonatate (Tessalon Perles) 200 mg PO TID PRN PRN Reason: Cough Last Admin: 12/03/17 03:33 Dose: 200 mg Cholecalciferol (Vitamin D) 1,000 intlu PO DAILY [facility] Last Admin: 12/03/17 08:59 Dose: 1,000 intlu Demeclocycline HCl (Declomycin) 300 mg PO BID [facility] PRN Reason: Protocol Stop: 12/04/17 23:59 Last Admin: 12/03/17 08:57 Dose: 300 mg Dextrose (Dextrose 50% Inj) 0 ml IV STAT PRN; Protocol PRN Reason: Hypoglycemia Protocol Dimethicone (Proshield Plus Skin Protectant) 1 applic TOP Q8 PRN PRN Reason: Rash Last Admin: 11/30/17 05:53 Dose: 1 applic Emollient Ointment (Vaseline Oint) 1 pkt TOP BID@0500,1700 [facility] Last Admin: 12/03/17 06:31 Dose: 1 pkt Epoetin Rolo (Procrit) 40,000 unit SC WED [facility] Last Admin: 11/29/17 10:43 Dose: 40,000 unit Furosemide (Lasix) 40 mg PO BID [facility] Last Admin: 12/03/17 08:58 Dose: 40 mg Glucagon (Glucagen Diagnostic Kit) 0 mg IM STAT PRN; Protocol PRN Reason: Hypoglycemia Protocol Guaifenesin (Robitussin) 200 mg PO Q6 PRN PRN Reason: Cough Last Admin: 11/30/17 11:19 Dose: 200 mg Cefepime HCl 1 gm/ Sodium (Chloride) 100 mls @ 100 mls/hr IVPB Q12 [facility] PRN Reason: Protocol Last Admin: 12/03/17 09:05 Dose: 100 mls/hr Insulin Detemir (Levemir) 6 units SC HS [facility] Last Admin: 12/02/17 21:21 Dose: 6 unit Insulin Human Lispro (Humalog) 0 units SC ACHS [facility] PRN Reason: Protocol Last Admin: 12/03/17 12:29 Dose: 1 u Ipratropium [place] (Atrovent) 0.5 mg IH RQID [facility] Last Admin: 12/03/17 15:27 Dose: 0.5 mg Lactobacillus Acidophilus (Bacid Acidophilus) 1 cap PO BID@1100,2100 [facility] Last Admin: 12/03/17 12:27 Dose: 1 cap Levalbuterol HCl (Xopenex) 0.63 mg INH RQ4 PRN PRN Reason: Shortness of Breath Last Admin: 11/29/17 23:24 Dose: 0.63 mg Levalbuterol HCl (Xopenex) 0.63 mg INH RQID [facility] Last Admin: 12/03/17 15:27 Dose: 0.63 mg Levothyroxine Sodium (Synthroid) 75 mcg PO DAILY@0630 [facility] Last Admin: 12/03/17 06:29 Dose: 75 mcg Magnesium Oxide (Mag-Ox) 400 mg PO BID [facility] Last Admin: 12/03/17 08:58 Dose: 400 mg Metoprolol Tartrate (Lopressor) 50 mg PO Q12 [facility] Last Admin: 12/03/17 08:58 Dose: 50 mg Multivitamins/Minerals (Therapeutic-M Tab) 1 tab PO DAILY [facility] Last Admin: 12/03/17 12:27 Dose: 1 tab Ondansetron HCl (Zofran Inj) 4 mg IVP Q4 PRN PRN Reason: Nausea/Vomiting Last Admin: 12/01/17 17:56 Dose: 4 mg Pantoprazole Sodium (Protonix Ec Tab) 40 mg PO DAILY [facility] Last Admin: 12/03/17 09:03 Dose: 40 mg Sitagliptin Phosphate (Januvia) 50 mg PO DAILY [facility] Last Admin: 12/03/17 08:57 Dose: 50 mg - Labs Labs: 12/01/17 06:20 12/02/17 05:30
[2017-12-03] MEDS: Insulin Detemir 100 Units/ml Inj SC SCH (21:34)
[2017-12-03 22:00] VITALS: O2SAT 98
[2017-12-04] MEDS: Insulin Lispro (humaLOG) 100 Units/ml Inj SC SCH ×3 (04:28→11:17)
[2017-12-04] MEDS: Levothyroxine 75 MCG TAB PO SCH (06:05)
[2017-12-04] MEDS: Ipratropium 0.02% Inhal Soln (0.5 mg/2.5 ml) UD IH SCH ×2 (08:01→11:22)
[2017-12-04] MEDS: Levalbuterol 0.63 MG/3 ML Inhal Soln UD INH SCH ×2 (08:01→11:23)
[2017-12-04 08:30] VITALS: BP 119/65; PULSE 101; RESP 18; TEMP 98.2
[2017-12-04] MEDS: Cholecalciferol 1,000 INTLU TAB PO SCH (09:02)
[2017-12-04] MEDS: Magnesium Oxide 400 mg Tab UD PO SCH (09:02)
[2017-12-04] MEDS: Multivitamin With Minerals Tab PO SCH (09:02)
[2017-12-04] MEDS: Acyclovir 5% OINT 15 APPLIC/15 GM EXT SCH (09:02)
[2017-12-04] MEDS: Cefepime 1 GM in Sodium Chloride 0.9% 100 ML IVPB SCH (09:02)
[2017-12-04] MEDS: Pantoprazole 40 mg EC Tab PO SCH (09:02)
--- NOTE | 2017-12-04 10:36 | CP.PCM.PN ---
Subjective - Date & Time of Evaluation Date of Evaluation: 12/04/17 Time of Evaluation: 10:33 - Subjective Subjective: Markedly fatigued. Unable to participate with physical therapy. Dyspneic with activity. + dependant edema. +pleural effusions on CXR. Still on IV antibiotic. Will discharge to emergency room. Objective - Vital Signs/Intake and Output Vital Signs (last 24 hours): Temp Pulse Resp BP Pulse Ox 98.2 F 101 H 18 119/65 98 12/04/17 08:29 12/04/17 09:01 12/04/17 08:29 12/04/17 09:01 12/04/17 08:29 - Medications Medications: Current Medications Acetaminophen (Tylenol 650 Mg Supp) 650 mg SC Q6 PRN PRN Reason: Fever >100.4 F Acyclovir (Zovirax 5% Oint) 1 applic EXT TID [facility] Last Admin: 12/04/17 09:02 Dose: 1 applic Allopurinol (Zyloprim) 100 mg PO DAILY [facility] Last Admin: 12/04/17 09:02 Dose: 100 mg Atorvastatin Calcium (Lipitor) 10 mg PO HS [facility] Last Admin: 11/28/17 21:33 Dose: 10 mg Benzonatate (Tessalon Perles) 200 mg PO TID PRN PRN Reason: Cough Last Admin: 12/03/17 18:13 Dose: 200 mg Cholecalciferol (Vitamin D) 1,000 intlu PO DAILY [facility] Last Admin: 12/04/17 09:02 Dose: 1,000 intlu Dextrose (Dextrose 50% Inj) 0 ml IV STAT PRN; Protocol PRN Reason: Hypoglycemia Protocol Dimethicone (Proshield Plus Skin Protectant) 1 applic TOP Q8 PRN PRN Reason: Rash Last Admin: 11/30/17 05:53 Dose: 1 applic Emollient Ointment (Vaseline Oint) 1 pkt TOP BID@0500,1700 [facility] Last Admin: 12/03/17 17:11 Dose: 1 pkt Epoetin Rolo (Procrit) 40,000 unit SC WED [facility] Last Admin: 11/29/17 10:43 Dose: 40,000 unit Furosemide (Lasix) 40 mg PO BID [facility] Last Admin: 12/04/17 09:01 Dose: 40 mg Glucagon (Glucagen Diagnostic Kit) 0 mg IM STAT PRN; Protocol PRN Reason: Hypoglycemia Protocol Guaifenesin (Robitussin) 200 mg PO Q6 PRN PRN Reason: Cough Last Admin: 11/30/17 11:19 Dose: 200 mg Cefepime HCl 1 gm/ Sodium (Chloride) 100 mls @ 100 mls/hr IVPB Q12 [facility] PRN Reason: Protocol Last Admin: 12/04/17 09:02 Dose: 100 mls/hr Insulin Detemir (Levemir) 6 units SC [facility] Last Admin: 12/03/17 21:34 Dose: 6 unit Insulin Human Lispro (Humalog) 0 units SC [facility] PRN Reason: Protocol Last Admin: 12/04/17 08:05 Dose: Not Given Ipratropium [place] (Atrovent) 0.5 mg IH RQID [facility] Last Admin: 12/04/17 08:01 Dose: 0.5 mg Lactobacillus Acidophilus (Bacid Acidophilus) 1 cap PO BID@1100,2100 [facility] Last Admin: 12/03/17 21:33 Dose: 1 cap Levalbuterol HCl (Xopenex) 0.63 mg INH RQ4 PRN PRN Reason: Shortness of Breath Last Admin: 11/29/17 23:24 Dose: 0.63 mg Levalbuterol HCl (Xopenex) 0.63 mg INH RQID [facility] Last Admin: 12/04/17 08:01 Dose: 0.63 mg Levothyroxine Sodium (Synthroid) 75 mcg PO DAILY@0630 [facility] Last Admin: 12/04/17 06:05 Dose: 75 mcg Magnesium Oxide (Mag-Ox) 400 mg PO BID [facility] Last Admin: 12/04/17 09:02 Dose: 400 mg Metoprolol Tartrate (Lopressor) 50 mg PO Q12 [facility] Last Admin: 12/04/17 09:01 Dose: 50 mg Multivitamins/Minerals (Therapeutic-M Tab) 1 tab PO DAILY [facility] Last Admin: 12/04/17 09:02 Dose: 1 tab Ondansetron HCl (Zofran Inj) 4 mg IVP Q4 PRN PRN Reason: Nausea/Vomiting Last Admin: 12/01/17 17:56 Dose: 4 mg Pantoprazole Sodium (Protonix Ec Tab) 40 mg PO DAILY [facility] Last Admin: 12/04/17 09:02 Dose: 40 mg Sitagliptin Phosphate (Januvia) 50 mg PO DAILY [facility] Last Admin: 12/04/17 09:01 Dose: 50 mg - Labs Labs: 12/01/17 06:20 12/02/17 05:30 Assessment and Plan (1) Acute exacerbation of chronic obstructive bronchitis Status: Acute
--- NOTE | 2017-12-04 11:22 | CP.PCM.DIS ---
Provider - Provider Date of Admission: 11/25/17 11:21 Attending physician: Malu Berrios MD Primary care physician: Houston Vazquez MD Consults: Dr Taylor Bajwa Time Spent in preparation of Discharge (in minutes): 28 Diagnosis - Discharge Diagnosis (1) Pneumonia Status: Acute Priority: High Comment: continue Cefepime (2) B-cell lymphoma Status: Chronic Priority: High Comment: Dr Senior on hematology consult. Dr Morales covering (3) Pancytopenia Status: Acute Priority: High Comment: leukopenia resolved with Granix infusion (4) Atrial fibrillation Status: Chronic Priority: High Comment: rate slightly elevated. continue Metoprolol. Xarelto on hold because of thrombocytopenia (5) COPD (chronic obstructive pulmonary disease) Status: Chronic Priority: High Comment: continue Xopenex and Atrovent (6) Hyponatremia Status: Acute Comment: Dr Allen on consult (7) Chronic kidney disease (CKD) Status: Acute Comment: stable. Dr Allen on consult Hospital Course - Lab Results Lab Results: Most Recent Lab Values WBC 6.1 K/uL (4.8-10.8) 12/01/17 06:20 RBC 3.21 Mil/uL (3.80-5.20) L 12/01/17 06:20 Hgb 9.0 g/dL (12.0-16.0) L 12/01/17 06:20 Hct 27.8 % (34.0-47.0) L 12/01/17 06:20 MCV 86.6 fl (81.0-99.0) 12/01/17 06:20 MCH 28.0 pg (27.0-31.0) 12/01/17 06:20 MCHC 32.3 g/dL (33.0-37.0) L 12/01/17 06:20 RDW 25.6 % (11.5-14.5) H 12/01/17 06:20 Plt Count 62 K/uL (130-400) L 12/01/17 06:20 MPV 10.7 fl (7.2-11.7) 12/01/17 06:20 Neut % (Auto) 85.4 % (50.0-75.0) H 12/01/17 06:20 Lymph % (Auto) 2.6 % (20.0-40.0) L 12/01/17 06:20 Armstrong % (Auto) 6.7 % (0.0-10.0) 12/01/17 06:20 Eos % (Auto) 4.5 % (0.0-4.0) H 12/01/17 06:20 Baso % (Auto) 0.8 % (0.0-2.0) 12/01/17 06:20 Neut # (Auto) 5.2 K/uL (1.8-7.0) 12/01/17 06:20 Lymph # (Auto) 0.2 K/uL (1.0-4.3) L 12/01/17 06:20 Armstrong # (Auto) 0.4 K/uL (0.0-0.8) 12/01/17 06:20 Eos # (Auto) 0.3 K/uL (0.0-0.7) 12/01/17 06:20 Baso # (Auto) 0.1 K/uL (0.0-0.2) 12/01/17 06:20 Neutrophils % (Manual) 84 % (42-75) H 11/30/17 06:20 Band Neutrophils % 4 % (0-2) H 11/30/17 06:20 Lymphocytes % (Manual) 4 % (20-50) L 11/30/17 06:20 Monocytes % (Manual) 5 % (0-10) 11/30/17 06:20 Eosinophils % (Manual) 2 % (0-7) 11/30/17 06:20 Basophils % (Manual) 1 % (0-2) 11/30/17 06:20 Platelet Estimate Decreased (NORMAL) L 11/30/17 06:20 Large Platelets Present 11/30/17 06:20 Giant Platelets Present 11/30/17 06:20 Hypochromasia (manual) Slight 11/30/17 06:20 Poikilocytosis (manual Slight 11/30/17 06:20 Anisocytosis (manual) Moderate 11/30/17 06:20 Microcytosis (manual) Slight 11/30/17 06:20 Macrocytosis (manual) Slight 11/30/17 06:20 Spherocytes Slight 11/30/17 06:20 Tear Drop Cells Slight 11/30/17 06:20 Ovalocytes Slight 11/30/17 06:20 Schistocytes Slight 11/30/17 06:20 Sodium 129 mmol/l (132-148) L 12/02/17 05:30 Potassium 3.3 MMOL/L (3.6-5.0) L 12/02/17 05:30 Chloride 99 mmol/L (98-107) 12/02/17 05:30 Carbon Dioxide 22 mmol/L (22-30) 12/02/17 05:30 Anion Gap 11 (10-20) 12/02/17 05:30 BUN 19 mg/dl (7-17) H 12/02/17 05:30 Creatinine 1.3 mg/dl (0.7-1.2) H 12/02/17 05:30 Est GFR ( Amer) 48 12/02/17 05:30 Est GFR (Non-Af Amer) 40 12/02/17 05:30 POC Glucose (mg/dL) 191 mg/dL (65-110) H 12/02/17 21:22 Random Glucose 105 mg/dL (65-105) 12/02/17 05:30 Calcium 7.5 mg/dL (8.4-10.2) L 12/02/17 05:30 Phosphorus 3.2 mg/dl (2.5-4.5) 11/29/17 06:00 Magnesium 1.1 MG/DL (1.6-2.3) L 12/01/17 06:20 Total Bilirubin 0.8 mg/dl (0.2-1.3) 11/30/17 06:20 AST 65 U/L (14-36) H 11/30/17 06:20 ALT 86 U/L (9-52) H 11/30/17 06:20 Alkaline Phosphatase 141 U/L (38-126) H 11/30/17 06:20 NT-Pro-B Natriuret Pep 9390 pg/ml (0-900) H 11/30/17 06:20 Total Protein 4.1 G/DL (6.3-8.2) L 11/30/17 06:20 Albumin 2.4 g/dL (3.5-5.0) L 11/30/17 06:20 Globulin 1.8 gm/dL (2.2-3.9) L 11/30/17 06:20 Albumin/Globulin Ratio 1.3 (1.0-2.1) 11/30/17 06:20 TSH 3rd Generation 15.10 mIU/ML (0.46-4.68) H 11/30/17 06:20 Urine Osmolality 313 mosm/kg (300-1000) 12/01/17 23:31 Ur Random Sodium 92 mmol/L 12/01/17 23:31 C. difficile Ag & Toxin Negative (NEGATIVE) 11/28/17 13:09 - Hospital Course Hospital Course: 77 yo female with history of AFib, CAD, COPD, HLD, HTN, DM2, CHF and B cell Lymphoma admitted in TCU because of deconditioned status and continuation of IV antibiotics for pneumonia. After staying in the unit for 8 days, patient was unable to participate in therapy because of severe weakness and SOB during activity. Patient would need further management in a hospital setting. Discharge Exam - Head Exam Head Exam: ATRAUMATIC - Eye Exam Eye Exam: absent: Scleral icterus - ENT Exam ENT Exam: Mucous Membranes Moist - Respiratory Exam Respiratory Exam: Rhonchi, Wheezes. absent: Respiratory Distress - GI/Abdominal Exam GI & Abdominal Exam: Soft. absent: Tenderness - Rectal Exam Rectal Exam: Deferred - Extremities Exam Extremities exam: pedal edema - Back Exam Back exam: absent: tenderness - Neurological Exam Neurological exam: Alert, Oriented x3 - Psychiatric Exam Psychiatric exam: Normal Affect - Skin Skin Exam: Dry, Intact Discharge Plan - Follow Up Plan Condition: GOOD Disposition: Trans to Other Acute Care Hosp Instructions: Hyponatremia (DC) Referrals: Houston Vazquez MD [Primary Care Provider] -
== END 2017-12-04 11:26 | disposition short-term general hospital (02) | DRG 193 ==
LOC: H.TCU 11:21
PROVIDERS: ADMIT Internal Medicine; ATTEND Internal Medicine
PROC: F08Z1FZ Dressing Techniques Treatment using Assistive, Adaptive, Supportive or Protective Equipment (ICD-10-PCS; principal; 2017-11-25)
PROC: F08Z2FZ Grooming/Personal Hygiene Treatment using Assistive, Adaptive, Supportive or Protective Equipment (ICD-10-PCS; 2017-11-25)
PROC: F08Z0FZ Bathing/Showering Techniques Treatment using Assistive, Adaptive, Supportive or Protective Equipment (ICD-10-PCS; 2017-11-25)
PROC: F07Z9FZ Gait Training/Functional Ambulation Treatment using Assistive, Adaptive, Supportive or Protective Equipment (ICD-10-PCS; 2017-11-25)
PROC: F07Z8FZ Transfer Training Treatment using Assistive, Adaptive, Supportive or Protective Equipment (ICD-10-PCS; 2017-11-25)
PROC: F07Z5FZ Bed Mobility Treatment using Assistive, Adaptive, Supportive or Protective Equipment (ICD-10-PCS; 2017-11-25)
PROC: F07L6GZ Therapeutic Exercise Treatment of Musculoskeletal System - Lower Back / Lower Extremity using Aerobic Endurance and Conditioning Equipment (ICD-10-PCS; 2017-11-25)
PROC: F07 Physical Rehabilitation and Diagnostic Audiology, Rehabilitation, Motor Treatment (ICD-10-PCS; 2017-11-25)
DX: J15.9 Unspecified bacterial pneumonia (principal); D61.810 Antineoplastic chemotherapy induced pancytopenia; I50.23 Acute on chronic systolic (congestive) heart failure; J44.0 Chronic obstructive pulmonary disease with (acute) lower respiratory infection; I13.0 Hypertensive heart and chronic kidney disease with heart failure and stage 1 through stage 4 chronic kidney disease, or unspecified chronic kidney disease; E46 Unspecified protein-calorie malnutrition; J44.1 Chronic obstructive pulmonary disease with (acute) exacerbation; C83.00 Small cell B-cell lymphoma, unspecified site; E22.2 Syndrome of inappropriate secretion of antidiuretic hormone; N17.9 Acute kidney failure, unspecified; T45.1X5A Adverse effect of antineoplastic and immunosuppressive drugs, initial encounter; I48.2 Chronic atrial fibrillation; H91.91 Unspecified hearing loss, right ear; Z96.653 Presence of artificial knee joint, bilateral; I25.10 Atherosclerotic heart disease of native coronary artery without angina pectoris; Z95.1 Presence of aortocoronary bypass graft; Z95.5 Presence of coronary angioplasty implant and graft; E78.00 Pure hypercholesterolemia, unspecified; E03.9 Hypothyroidism, unspecified; Z87.891 Personal history of nicotine dependence; Z88.1 Allergy status to other antibiotic agents; E11.22 Type 2 diabetes mellitus with diabetic chronic kidney disease; N18.3 Chronic kidney disease, stage 3 (moderate); Z68.33 Body mass index [BMI] 33.0-33.9, adult; I27.20 Pulmonary hypertension, unspecified; D46.9 Myelodysplastic syndrome, unspecified; E87.6 Hypokalemia; E83.42 Hypomagnesemia; K29.70 Gastritis, unspecified, without bleeding; K13.79 Other lesions of oral mucosa

== ENCOUNTER 2018-01-10 07:51 | Inpatient (IN) | payer MEDICARE, BC ==
[2018-01-10 09:52] VITALS: BMI 27.0
[2018-01-10] MEDS ORDERED: Glucagon Recombinant 1 mg Inj IM PRN (10:13)
[2018-01-10] MEDS ORDERED: Dextrose 50% SYRINGE Inj (50 ml) IV PRN (10:13)
--- NOTE | 2018-01-10 10:22 | CP.PCM.HP ---
History of Present Illness - History of Present Illness History of Present Illness: Mrs. 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 Patient was discharged to [facility] last admission for physical therapy but she has not been able to participate with PT due to generalized weakness. At present denies any chest pian , SOB , cough , fever , chills, nausea , vomiting , urin khanh symptoms , changes in bowel movements. Complains of generalized weakness Allergies ; vancomycin PMH :HTN CAD CKD stage III, chronic anemia, B cell lymphoma, MDS, pancytopenia, Chronic Afib, COPD Medications: See med rec Surgery: bilateral knee replacement , PCI Family history ;None Social History ;ex smoker , denies ETOHJ or drug abuse , recently not ambulating due to weakness ROS :Feeling weak and tired , denies fever , chills, PMD : Dr Vazquez and Dr Luz Nunes Code status: Full code Surrogate decision maker :Daughter Leanna Present on Admission - Present on Admission Any Indicators Present on Admission: No Review of Systems - Constitutional Constitutional: Fatigue, Weakness Past Patient History - Infectious Disease Hx of Infectious Diseases: None - Tetanus Immunizations Tetanus Immunization: Unknown - Past Medical History & Family History Past Medical History?: Yes - Past Social History Smoking Status: Former Smoker Chewing Tobacco Use: No Cigar Use: No Alcohol: None Drugs: Denies - CARDIAC Hx Cardiac Disorders: Yes Hx Congestive Heart Failure: Yes Hx Hypercholesterolemia: Yes Hx Hypertension: Yes - PULMONARY Hx Chronic Obstructive Pulmonary Disease (COPD): Yes - NEUROLOGICAL Hx Neurological Disorder: No - HEENT Hx HEENT Problems: Yes (Hearing loss in the right ear.) Other/Comment: Use Eyeglasses - RENAL Hx Renal Failure: Yes - ENDOCRINE/METABOLIC Hx Diabetes Mellitus Type 2: Yes Hx Hypothyroidism: Yes - HEMATOLOGICAL/ONCOLOGICAL Hx Blood Disorders: Yes Hx Anemia: Yes - INTEGUMENTARY Hx Dermatological Problems: No - MUSCULOSKELETAL/RHEUMATOLOGICAL Hx Musculoskeletal Disorders: Yes Hx Falls: Yes - GASTROINTESTINAL Hx Gastrointestinal Disorders: Yes Hx Gastritis: Yes - GENITOURINARY/GYNECOLOGICAL Hx Genitourinary Disorders: Yes Hx Incontinence: Yes - PSYCHIATRIC Hx Psychophysiologic Disorder: No Hx Substance Use: No - SURGICAL HISTORY Hx Surgeries: Yes Hx Coronary Artery Bypass Graft: Yes (2000) Hx Coronary Stent: Yes (PCI 2007 and 2010) Hx Joint Replacement: Yes (bilateral knee replacement) - ANESTHESIA Hx Anesthesia: Yes Hx Anesthesia Reactions: No Hx Malignant Hyperthermia: No Meds Allergies/Adverse Reactions: Allergies Allergy/AdvReac Type Severity Reaction Status Date / Time vancomycin AdvReac Intermediate NAUSEA Verified 11/25/17 11:20 Physical Exam - Constitutional Appears: No Acute Distress, Chronically Ill - Head Exam Head Exam: ATRAUMATIC, NORMOCEPHALIC - Eye Exam Eye Exam: EOMI, PERRL Pupil Exam: NORMAL ACCOMODATION - ENT Exam ENT Exam: Mucous Membranes Dry, Normal Exam - Neck Exam Neck exam: Positive for: Normal Inspection - Respiratory Exam Respiratory Exam: Clear to Auscultation Bilateral, NORMAL BREATHING PATTERN. absent: Rales, Rhonchi, Wheezes - Cardiovascular Exam Cardiovascular Exam: REGULAR RHYTHM, RRR, +S1, +S2. absent: JVD - GI/Abdominal Exam GI & Abdominal Exam: Normal Bowel Sounds, Soft. absent: Distended, Guarding, Rebound, Tenderness - Rectal Exam Rectal Exam: Deferred - Extremities Exam Extremities exam: Positive for: pedal edema (1 + bilaterally ), pedal pulses present - Neurological Exam Neurological exam: Alert, CN II-XII Intact, Oriented x3 - Psychiatric Exam Psychiatric exam: Flat Affect - Skin Skin Exam: Dry, Normal Color, Pallor, Warm Results - Labs Result Diagrams: 01/10/18 11:00 01/10/18 11:00 Assessment & Plan - Assessment and Plan (Free Text) Assessment: Mrs Copeland is a 77-year-old woman with a past medical history of HTN, CAD s/p CABG, atrial fibrillation (not on anticoagulation due to thrombocytopenia), lymphoma, MDS s/p chemo with pancytopenia who is 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 1. B-cell lymphoma / MDS (myelodysplastic syndrome) admit patient for chemotherapy Order CBC , BMP Dr De Dios on hematology/oncology consult 2. Pancytopenia sec to Chemotherapy Check CBC 3. Chronic A-fib on Metoprolol 75mg PO BID. no anticoagulation due to thrombocytopenia 4. COPD chronic continue Atrovent and Xopenex pulmonary consult 5. Hyponatremia sec to SIADH 6. Hypothyroid Levothyroxine 50mcg daily 7. CKD stage III stable 8. Hypertension / CAD Resume home meds
[2018-01-10] MEDS ORDERED: Lidocaine/Prilocaine CREAM 5GM TP ONE ×2 (10:44→11:15)
[2018-01-10] MEDS ORDERED: AZACITIDINE SC ONE (11:04)
[2018-01-10] MEDS ORDERED: CHEMO SC ONE (11:04)
[2018-01-10] MEDS ORDERED: Dexamethasone 10 MG in Sodium Chloride 0.9% 50 ML IVPB ONE (11:45)
[2018-01-10 11:50] LABS: MEAN CELL VOLUME 91.2 fl (81.0-99.0); MEAN CORPUSCULAR HEMOGLOBIN 28.7 pg (27.0-31.0); MEAN CORPUSCULAR HGB CONC 31.5 g/dL (33.0-37.0); RBC 3.85 Mil/uL (3.80-5.20); RED CELL DISTRIBUTION WIDTH 21.3 % (11.5-14.5); WHITE BLOOD COUNT 11.9 K/uL (4.8-10.8)
[2018-01-10] MEDS: Sodium Chloride 0.9% 500 ML IV SCH ×2 (12:01→18:54)
[2018-01-10] MEDS ORDERED: RITUXIMAB IV ONE (12:30)
[2018-01-10] MEDS ORDERED: SODIUM CHLORIDE 0.9% IV ONE (12:30)
--- NOTE | 2018-01-10 12:31 | CP.PCM.CON ---
History of Present Illness - History of Present Illness History of Present Illness: This is a 77 yrs old female who has a past h/o CAD followed by CABG, DM. Afib, not on anticoagulant because she was thrombocytopeinic. She was diagnosed to have a MDS for which she was started on azacitidine and responded well. However she still had problems with her copd and CHF, Recently she became very weak, and had a large spleen with nodules. These were biopsied and showed a B very and cell lymphoma. 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 She was finally transferred to a rehab a she is doing better. She can stand but not walk. Her cbc is normal and much less shortness of breath. Past Patient History - Infectious Disease Hx of Infectious Diseases: None - Tetanus Immunizations Tetanus Immunization: Unknown - Past Medical History & Family History Past Medical History?: Yes - Past Social History Smoking Status: Light Smoker < 10 Cigarettes Daily - CARDIAC Hx Cardiac Disorders: Yes Hx Congestive Heart Failure: Yes Hx Hypercholesterolemia: Yes Hx Hypertension: Yes - PULMONARY Hx Chronic Obstructive Pulmonary Disease (COPD): Yes - NEUROLOGICAL Hx Neurological Disorder: No - HEENT Hx HEENT Problems: Yes (Hearing loss in the right ear.) Other/Comment: Use Eyeglasses - RENAL Hx Renal Failure: Yes - ENDOCRINE/METABOLIC Hx Diabetes Mellitus Type 2: Yes Hx Hypothyroidism: Yes - HEMATOLOGICAL/ONCOLOGICAL Hx Blood Disorders: Yes Hx Anemia: Yes - INTEGUMENTARY Hx Dermatological Problems: No - MUSCULOSKELETAL/RHEUMATOLOGICAL Hx Falls: Yes - GASTROINTESTINAL Hx Gastrointestinal Disorders: Yes Hx Gastritis: Yes - GENITOURINARY/GYNECOLOGICAL Hx Genitourinary Disorders: Yes Hx Incontinence: Yes - PSYCHIATRIC Hx Substance Use: No - SURGICAL HISTORY Hx Surgeries: Yes Hx Coronary Artery Bypass Graft: Yes (2000) Hx Coronary Stent: Yes (PCI 2007 and 2010) Hx Joint Replacement: Yes (bilateral knee replacement) - ANESTHESIA Hx Anesthesia: Yes Hx Anesthesia Reactions: No Hx Malignant Hyperthermia: No Meds Allergies/Adverse Reactions: Allergies Allergy/AdvReac Type Severity Reaction Status Date / Time vancomycin AdvReac Intermediate NAUSEA Verified 11/25/17 11:20 - Medications Medications: Current Medications Acetaminophen (Tylenol 325mg Tab) 650 mg PO Q6 PRN PRN Reason: Fever >100.4 F Dextrose (Dextrose 50% Inj) 0 ml IV STAT PRN; Protocol PRN Reason: Hypoglycemia Protocol Dextrose (Glutose 15) 0 gm PO ONCE PRN; Protocol PRN Reason: Hypoglycemia Protocol Docusate Sodium (Colace) 100 mg PO BID [facility] Glucagon (Glucagen Diagnostic Kit) 0 mg IM STAT PRN; Protocol PRN Reason: Hypoglycemia Protocol Sodium Chloride (Sodium Chloride 0.9%) 500 mls @ 70 mls/hr IV .Q7H9M [facility] Last Admin: 01/10/18 12:01 Dose: 70 mls/hr Rituximab 592 mg/ Sodium (Chloride) 309.2 mls @ 25.767 mls/hr IV ONCE ONE Stop: 01/11/18 00:29 Azacitidine 160 mg/ CHEMO IV 0 mls @ 0 mls/hr SC DAILY [facility] Stop: 01/14/18 13:01 Insulin Human Lispro (Humalog) 0 units SC ACHS [facility]; Protocol Ondansetron HCl (Zofran Inj) 4 mg IVP Q6 PRN PRN Reason: Nausea/Vomiting Pantoprazole Sodium (Protonix Ec Tab) 40 mg PO DAILY [facility] Physical Exam - Additional Findings Additional findings: PHYSIAL EXAM 'Alert, well orientd in no acute distress neck; supple, no adenopathy Chest; Clear, no rales or rhonchi heart; RSR, no murmur Abd; soft , no mass, no hepatomegaly ,spleen tip palpable. Results - Vital Signs Recent Vital Signs: Last Vital Signs Temp Pulse Resp BP Pulse Ox 2 L 01/10/18 11:18 - Labs Result Diagrams: 01/10/18 11:00 Labs: Laboratory Results - last 24 hr 01/10/18 11:00 WBC 11.9 H D RBC 3.85 Hgb 11.0 L Hct 35.1 MCV 91.2 MCH 28.7 MCHC 31.5 L RDW 21.3 H Plt Count 139 D Assessment & Plan - Assessment and Plan (Free Text) Assessment: Impresson; MDS,LYMPHOMA, DM, HTN, CAD, Afib, Plan: Plan; Will give rituxan today, then Azacitidine for 5 days. - Date & Time Date: 01/10/18 Time: 12:39
[2018-01-10] MEDS: Insulin Lispro (humaLOG) 100 Units/ml Inj SC SCH ×3 (12:36→22:20)
[2018-01-10] MEDS ORDERED: AZACITIDINE SC SCH (13:00)
[2018-01-10] MEDS ORDERED: CHEMO SC SCH (13:00)
[2018-01-10] MEDS ORDERED: Proshield Plus GEL TOP PRN (18:54)
[2018-01-10] MEDS ORDERED: BENZONATATE 200 MG PO PRN (18:54)
[2018-01-10] MEDS ORDERED: Sodium Chloride 3% for Inhalation 4 ML VIAL.NEB IH PRN (18:54)
[2018-01-10] MEDS: Ipratropium 0.02% Inhal Soln (0.5 mg/2.5 ml) UD IH SCH (20:34)
[2018-01-11] MEDS: Sodium Chloride 0.9% 500 ML IV SCH (01:18)
[2018-01-11] MEDS: Levothyroxine 75 MCG TAB PO SCH (05:50)
[2018-01-11 07:07] LABS: BASO % 0.3 % (0.0-2.0); HEMOGLOBIN 10.8 g/dL (12.0-16.0); LYMPH # 2.7 K/uL (1.0-4.3); LYMPH % 31.9 % (20.0-40.0); MEAN CELL VOLUME 92.5 fl (81.0-99.0); MEAN CORPUSCULAR HEMOGLOBIN 28.5 pg (27.0-31.0); MEAN CORPUSCULAR HGB CONC 30.8 g/dL (33.0-37.0); MEAN PLATELET VOLUME 9.4 fl (7.2-11.7); MONO # 0.4 K/uL (0.0-0.8); MONO % 4.9 % (0.0-10.0); NEUT # 5.3 K/uL (1.8-7.0); NEUT % 62.9 % (50.0-75.0); NRBC % 0.1 % (0.0-0.0); RBC 3.78 Mil/uL (3.80-5.20); RED CELL DISTRIBUTION WIDTH 21.1 % (11.5-14.5); WHITE BLOOD COUNT 8.5 K/uL (4.8-10.8)
[2018-01-11] MEDS: Ipratropium 0.02% Inhal Soln (0.5 mg/2.5 ml) UD IH SCH ×4 (07:56→19:24)
[2018-01-11] MEDS ORDERED: MULTIVITAMIN WITH MINERALS PO SCH (09:00)
[2018-01-11] MEDS: Digoxin 125 mcg (0.125 mg) Tab PO SCH (09:50)
[2018-01-11] MEDS: Magnesium Oxide 400 mg Tab UD PO SCH ×2 (09:53→17:36)
[2018-01-11] MEDS: Pantoprazole 40 mg EC Tab PO SCH (09:53)
[2018-01-11] MEDS: Multivitamin With Minerals Tab PO SCH (09:54)
[2018-01-11] MEDS: Petrolatum UD PAK TOP SCH ×2 (09:54→17:36)
[2018-01-11] MEDS: Cholecalciferol 1,000 INTLU TAB PO SCH (09:54)
[2018-01-11] MEDS: Insulin Lispro (humaLOG) 100 Units/ml Inj SC SCH ×4 (09:55→23:00)
--- NOTE | 2018-01-11 09:58 | CP.PCM.PN ---
Subjective - Date & Time of Evaluation Date of Evaluation: 01/11/18 Time of Evaluation: 09:54 - Subjective Subjective: Pt is feeling much better. The CBC and chemistries are normal, and pt tolerated the Rituxan well.She also received the Azacitidine yesterday. She will receive 4 more doses. Objective - Vital Signs/Intake and Output Vital Signs (last 24 hours): Temp Pulse Resp BP Pulse Ox 97.5 F L 72 20 177/63 H 96 01/11/18 08:52 01/11/18 08:52 01/11/18 08:52 01/11/18 08:52 01/10/18 23:54 - Medications Medications: Current Medications Acetaminophen (Tylenol 325mg Tab) 650 mg PO Q6 PRN PRN Reason: Fever >100.4 F Acetaminophen (Tylenol 650 Mg Supp) 650 mg NC Q6 PRN PRN Reason: Fever >100.4 F Atorvastatin Calcium (Lipitor) 10 mg PO HS [facility] Last Admin: 01/10/18 21:00 Dose: 10 mg Benzonatate (Tessalon Perles) 200 mg PO TID PRN PRN Reason: Cough Last Admin: 01/11/18 05:55 Dose: 200 mg Cholecalciferol (Vitamin D) 1,000 intlu PO DAILY [facility] Dextrose (Dextrose 50% Inj) 0 ml IV STAT PRN; Protocol PRN Reason: Hypoglycemia Protocol Dextrose (Glutose 15) 0 gm PO ONCE PRN; Protocol PRN Reason: Hypoglycemia Protocol Digoxin (Digoxin) 0.125 mg PO DAILY [facility] Dimethicone (Proshield Plus Skin Protectant) 1 applic TOP Q8 PRN PRN Reason: Rash Docusate Sodium (Colace) 100 mg PO BID [facility] Last Admin: 01/10/18 16:49 Dose: 100 mg Emollient Ointment (Vaseline Oint) 1 pkt TOP BID [facility] Epoetin Rolo (Procrit) 40,000 unit SC WED [facility] Glucagon (Glucagen Diagnostic Kit) 0 mg IM STAT PRN; Protocol PRN Reason: Hypoglycemia Protocol Sodium Chloride (Sodium Chloride 0.9%) 500 mls @ 70 mls/hr IV .Q7H9M [facility] Last Admin: 01/11/18 01:18 Dose: Not Given Azacitidine 160 mg/ CHEMO IV 0 mls @ 0 mls/hr SC DAILY [facility] Stop: 01/14/18 13:01 Last Admin: 01/10/18 14:10 Dose: 6.4 mls/hr Insulin Human Lispro (Humalog) 0 units SC ACHS [facility]; Protocol Last Admin: 01/10/18 22:20 Dose: Not Given Ipratropium [place] (Atrovent) 0.5 mg IH RQID [facility] Last Admin: 01/11/18 07:56 Dose: 0.5 mg Lactobacillus Acidophilus (Bacid Acidophilus) 1 cap PO BID [facility] Levalbuterol HCl (Xopenex) 0.63 mg INH RQ4 PRN PRN Reason: Shortness of Breath Levothyroxine Sodium (Synthroid) 75 mcg PO DAILY@0630 [facility] Last Admin: 01/11/18 05:50 Dose: 75 mcg Magnesium Oxide (Mag-Ox) 400 mg PO BID [facility] Metoprolol Tartrate (Lopressor) 50 mg PO Q12 [facility] Last Admin: 01/10/18 21:00 Dose: 50 mg Mirtazapine (Remeron) 7.5 mg PO HS [facility] Last Admin: 01/10/18 22:16 Dose: 7.5 mg Multivitamins/Minerals (Therapeutic-M Tab) 1 tab PO DAILY [facility] Ondansetron HCl (Zofran Inj) 4 mg IVP Q6 PRN PRN Reason: Nausea/Vomiting Pantoprazole Sodium (Protonix Ec Tab) 40 mg PO DAILY [facility] Tolvaptan (Samsca) 30 mg PO DAILY [facility] - Labs Labs: 01/11/18 06:51 01/11/18 06:51
[2018-01-11] MEDS: Lactobacillus Acidophilus 500 MU Cap PO SCH ×2 (10:10→17:38)
--- NOTE | 2018-01-11 10:39 | CP.PCM.CON ---
History of Present Illness - History of Present Illness History of Present Illness: Mrs. 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 patient was here few weeks ago when she was diagnosed SIADH she was treated with Samsca at that time and she continued to receive Samsca. And it was noted that serum sodium in the range of over 144 at the present Allergies ; vancomycin PMH :HTN CAD CKD stage III, chronic anemia, B cell lymphoma, MDS, pancytopenia, Chronic Afib, COPD Medications: See med rec Surgery: bilateral knee replacement , PCI Family history ;None Social History ;ex smoker , denies ETOHJ or drug abuse , recently not ambulating due to weakness ROS :Feeling weak and tired , denies fever , chills, Review of Systems - Constitutional Constitutional: Anorexia. absent: Chills - EENT Eyes: absent: Exophthalmos Nose/Mouth/Throat: absent: Epistaxis - Cardiovascular Cardiovascular: absent: Chest Pain, Dyspnea, Edema - Respiratory Respiratory: absent: Cough, Dyspnea - Gastrointestinal Gastrointestinal: absent: Abdominal Pain - Genitourinary Genitourinary: absent: Nocturia - Musculoskeletal Musculoskeletal: As Per HPI. absent: Back Pain, Numbness - Neurological Neurological: As Per HPI. absent: Confusion, Focal Weakness, Headaches - Endocrine Endocrine: Fatigue - Hematologic/Lymphatic Hematologic: absent: Easy Bleeding Past Patient History - Infectious Disease Hx of Infectious Diseases: None - Tetanus Immunizations Tetanus Immunization: Unknown - Past Medical History & Family History Past Medical History?: Yes - Past Social History Smoking Status: Former Smoker Chewing Tobacco Use: No Cigar Use: No Alcohol: None Drugs: Denies - CARDIAC Hx Cardiac Disorders: Yes Hx Congestive Heart Failure: Yes Hx Hypercholesterolemia: Yes Hx Hypertension: Yes - PULMONARY Hx Chronic Obstructive Pulmonary Disease (COPD): Yes - NEUROLOGICAL Hx Neurological Disorder: No - HEENT Hx HEENT Problems: Yes (Hearing loss in the right ear.) Other/Comment: Use Eyeglasses - RENAL Hx Renal Failure: Yes - ENDOCRINE/METABOLIC Hx Diabetes Mellitus Type 2: Yes Hx Hypothyroidism: Yes - HEMATOLOGICAL/ONCOLOGICAL Hx Blood Disorders: Yes Hx Anemia: Yes - INTEGUMENTARY Hx Dermatological Problems: No - MUSCULOSKELETAL/RHEUMATOLOGICAL Hx Musculoskeletal Disorders: Yes Hx Falls: Yes - GASTROINTESTINAL Hx Gastrointestinal Disorders: Yes Hx Gastritis: Yes - GENITOURINARY/GYNECOLOGICAL Hx Genitourinary Disorders: Yes Hx Incontinence: Yes - PSYCHIATRIC Hx Psychophysiologic Disorder: No Hx Substance Use: No - SURGICAL HISTORY Hx Surgeries: Yes Hx Coronary Artery Bypass Graft: Yes (2000) Hx Coronary Stent: Yes (PCI 2007 and 2010) Hx Joint Replacement: Yes (bilateral knee replacement) - ANESTHESIA Hx Anesthesia: Yes Hx Anesthesia Reactions: No Hx Malignant Hyperthermia: No Meds Allergies/Adverse Reactions: Allergies Allergy/AdvReac Type Severity Reaction Status Date / Time vancomycin AdvReac Intermediate NAUSEA Verified 11/25/17 11:20 - Medications Medications: Current Medications Acetaminophen (Tylenol 325mg Tab) 650 mg PO Q6 PRN PRN Reason: Fever >100.4 F Acetaminophen (Tylenol 650 Mg Supp) 650 mg MO Q6 PRN PRN Reason: Fever >100.4 F Atorvastatin Calcium (Lipitor) 10 mg PO HS [facility] Last Admin: 01/10/18 21:00 Dose: 10 mg Benzonatate (Tessalon Perles) 200 mg PO TID PRN PRN Reason: Cough Last Admin: 01/11/18 05:55 Dose: 200 mg Cholecalciferol (Vitamin D) 1,000 intlu PO DAILY [facility] Last Admin: 01/11/18 09:54 Dose: 1,000 intlu Dextrose (Dextrose 50% Inj) 0 ml IV STAT PRN; Protocol PRN Reason: Hypoglycemia Protocol Dextrose (Glutose 15) 0 gm PO ONCE PRN; Protocol PRN Reason: Hypoglycemia Protocol Digoxin (Digoxin) 0.125 mg PO DAILY [facility] Last Admin: 01/11/18 09:50 Dose: 0.125 mg Dimethicone (Proshield Plus Skin Protectant) 1 applic TOP Q8 PRN PRN Reason: Rash Docusate Sodium (Colace) 100 mg PO BID [facility] Last Admin: 01/11/18 09:50 Dose: 100 mg Emollient Ointment (Vaseline Oint) 1 pkt TOP BID [facility] Last Admin: 01/11/18 09:54 Dose: 1 pkt Epoetin Rolo (Procrit) 40,000 unit SC WED [facility] Glucagon (Glucagen Diagnostic Kit) 0 mg IM STAT PRN; Protocol PRN Reason: Hypoglycemia Protocol Sodium Chloride (Sodium Chloride 0.9%) 500 mls @ 70 mls/hr IV .Q7H9M [facility] Last Admin: 01/11/18 01:18 Dose: Not Given Azacitidine 160 mg/ CHEMO IV 0 mls @ 0 mls/hr SC DAILY [facility] Stop: 01/14/18 13:01 Last Admin: 01/10/18 14:10 Dose: 6.4 mls/hr Insulin Human Lispro (Humalog) 0 units SC ACHS [facility]; Protocol Last Admin: 01/11/18 09:55 Dose: 4 unit Ipratropium [place] (Atrovent) 0.5 mg IH RQID [facility] Last Admin: 01/11/18 07:56 Dose: 0.5 mg Lactobacillus Acidophilus (Bacid Acidophilus) 1 cap PO BID [facility] Last Admin: 01/11/18 10:10 Dose: 1 cap Levalbuterol HCl (Xopenex) 0.63 mg INH RQ4 PRN PRN Reason: Shortness of Breath Levothyroxine Sodium (Synthroid) 75 mcg PO DAILY@0630 [facility] Last Admin: 01/11/18 05:50 Dose: 75 mcg Magnesium Oxide (Mag-Ox) 400 mg PO BID [facility] Last Admin: 01/11/18 09:53 Dose: 400 mg Metoprolol Tartrate (Lopressor) 50 mg PO Q12 [facility] Last Admin: 01/11/18 09:51 Dose: 50 mg Mirtazapine (Remeron) 7.5 mg PO HS [facility] Last Admin: 01/10/18 22:16 Dose: 7.5 mg Multivitamins/Minerals (Therapeutic-M Tab) 1 tab PO DAILY [facility] Last Admin: 01/11/18 09:54 Dose: 1 tab Ondansetron HCl (Zofran Inj) 4 mg IVP Q6 PRN PRN Reason: Nausea/Vomiting Pantoprazole Sodium (Protonix Ec Tab) 40 mg PO DAILY [facility] Last Admin: 01/11/18 09:53 Dose: 40 mg Tolvaptan (Samsca) 30 mg PO DAILY [facility] Last Admin: 01/11/18 09:53 Dose: 30 mg Physical Exam - Constitutional Appears: No Acute Distress - Eye Exam Eye Exam: Conjunctival injection - ENT Exam ENT Exam: Mucous Membranes Moist - Respiratory Exam Respiratory Exam: NORMAL BREATHING PATTERN. absent: Chest Wall Tenderness, Rales - Cardiovascular Exam Cardiovascular Exam: absent: Gallop, JVD, Rubs - GI/Abdominal Exam GI & Abdominal Exam: Normal Bowel Sounds. absent: Guarding - Extremities Exam Extremities exam: Negative for: calf tenderness - Back Exam Back exam: absent: CVA tenderness (L), CVA tenderness (R) - Neurological Exam Neurological exam: Alert - Psychiatric Exam Psychiatric exam: Normal Affect Results - Vital Signs Recent Vital Signs: Last Vital Signs Temp 97.5 F L 01/11/18 08:52 Pulse 101 H 01/11/18 09:51 Resp 20 01/11/18 08:52 BP 177/63 H 01/11/18 09:51 Pulse Ox 96 01/10/18 23:54 - Labs Result Diagrams: 01/11/18 06:51 01/11/18 06:51 Labs: Laboratory Results - last 24 hr 01/10/18 01/10/18 01/10/18 11:00 11:00 12:19 WBC 11.9 H D RBC 3.85 Hgb 11.0 L Hct 35.1 MCV 91.2 MCH 28.7 MCHC 31.5 L RDW 21.3 H Plt Count 139 D MPV Neut % (Auto) Lymph % (Auto) [place] % (Auto) Eos % (Auto) Baso % (Auto) Neut # (Auto) Lymph # (Auto) [place] # (Auto) Eos # (Auto) Baso # (Auto) Sodium 146 Potassium 3.8 Chloride 108 H Carbon Dioxide 38 H Anion Gap 4 L BUN 43 H Creatinine 1.2 Est GFR ( Amer) 53 Est GFR (Non-Af Amer) 44 POC Glucose (mg/dL) 152 H Random Glucose 152 H Calcium 9.0 01/10/18 01/10/18 01/11/18 15:36 21:40 05:55 WBC RBC Hgb Hct MCV MCH MCHC RDW Plt Count MPV Neut % (Auto) Lymph % (Auto) [place] % (Auto) Eos % (Auto) Baso % (Auto) Neut # (Auto) Lymph # (Auto) [place] # (Auto) Eos # (Auto) Baso # (Auto) Sodium Potassium Chloride Carbon Dioxide Anion Gap BUN Creatinine Est GFR ( Amer) Est GFR (Non-Af Amer) POC Glucose (mg/dL) 195 H 187 H 200 H Random Glucose Calcium 09/27/18 09/27/18 06:51 06:51 WBC 8.5 RBC 3.78 L Hgb 10.8 L Hct 35.0 MCV 92.5 MCH 28.5 MCHC 30.8 L RDW 21.1 H Plt Count 140 MPV 9.4 Neut % (Auto) 62.9 Lymph % (Auto) 31.9 [place] % (Auto) 4.9 Eos % (Auto) 0.0 Baso % (Auto) 0.3 Neut # (Auto) 5.3 Lymph # (Auto) 2.7 [place] # (Auto) 0.4 Eos # (Auto) 0.0 Baso # (Auto) 0.0 Sodium 145 Potassium 4.2 Chloride 108 H Carbon Dioxide 34 H Anion Gap 7 L BUN 45 H Creatinine 1.1 Est GFR ( Amer) 58 Est GFR (Non-Af Amer) 48 POC Glucose (mg/dL) Random Glucose 198 H Calcium 9.0 Assessment & Plan (1) Acute on chronic systolic congestive heart failure Status: Acute (2) Hyponatremia Assessment and Plan: patient with a history of hyponatremia and SIADH syndrome in the past has been treated with Samsca 30 mg a day. Now serum sodium up to more than 144 therefore my recommendation to cut down Samsca to 15 mg Spot urine for sodium osmolality and creatinine Patient with history of chronic kidney disease stage III that has been stable and improving since the previous admission MDS syndrome, on chemotherapy Status: Acute (3) Chronic kidney disease (CKD) stage G3a/A1, moderately decreased glomerular filtration rate (GFR) between 45-59 mL/min/1.73 square meter and albuminuria creatinine ratio less than 30 mg/g Status: Acute
[2018-01-11] MEDS: AZACITIDINE SC SCH (12:00)
[2018-01-11] MEDS: CHEMO SC SCH (12:00)
--- NOTE | 2018-01-11 13:06 | CP.PCM.PN ---
Subjective - Date & Time of Evaluation Date of Evaluation: 01/11/18 Time of Evaluation: 10:00 - Subjective Subjective: Patient seen bedside . Appears weak , frail and tired with very soft voice .Hemodynamically stable No acute issues overnight Poor PO intake Objective - Vital Signs/Intake and Output Vital Signs (last 24 hours): Temp Pulse Resp BP Pulse Ox 97.5 F L 101 H 20 177/63 H 96 01/11/18 08:52 01/11/18 09:51 01/11/18 08:52 01/11/18 09:51 01/10/18 23:54 - Medications Medications: Current Medications Acetaminophen (Tylenol 325mg Tab) 650 mg PO Q6 PRN PRN Reason: Fever >100.4 F Acetaminophen (Tylenol 650 Mg Supp) 650 mg [place] Q6 PRN PRN Reason: Fever >100.4 F Atorvastatin Calcium (Lipitor) 10 mg PO HS [facility] Last Admin: 01/10/18 21:00 Dose: 10 mg Benzonatate (Tessalon Perles) 200 mg PO TID PRN PRN Reason: Cough Last Admin: 01/11/18 05:55 Dose: 200 mg Cholecalciferol (Vitamin D) 1,000 intlu PO DAILY [facility] Last Admin: 01/11/18 09:54 Dose: 1,000 intlu Dextrose (Dextrose 50% Inj) 0 ml IV STAT PRN; Protocol PRN Reason: Hypoglycemia Protocol Dextrose (Glutose 15) 0 gm PO ONCE PRN; Protocol PRN Reason: Hypoglycemia Protocol Digoxin (Digoxin) 0.125 mg PO DAILY [facility] Last Admin: 01/11/18 09:50 Dose: 0.125 mg Dimethicone (Proshield Plus Skin Protectant) 1 applic TOP Q8 PRN PRN Reason: Rash Docusate Sodium (Colace) 100 mg PO BID [facility] Last Admin: 01/11/18 09:50 Dose: 100 mg Emollient Ointment (Vaseline Oint) 1 pkt TOP BID [facility] Last Admin: 01/11/18 09:54 Dose: 1 pkt Epoetin Rolo (Procrit) 40,000 unit SC WED [facility] Glucagon (Glucagen Diagnostic Kit) 0 mg IM STAT PRN; Protocol PRN Reason: Hypoglycemia Protocol Sodium Chloride (Sodium Chloride 0.9%) 500 mls @ 70 mls/hr IV .Q7H9M [facility] Last Admin: 01/11/18 01:18 Dose: Not Given Azacitidine 160 mg/ CHEMO IV 0 mls @ 0 mls/hr SC DAILY [facility] Stop: 01/14/18 13:01 Last Admin: 01/11/18 12:00 Dose: 160 mls/hr Insulin Human Lispro (Humalog) 0 units SC ACHS [facility]; Protocol Last Admin: 01/11/18 09:55 Dose: 4 unit Ipratropium [place] (Atrovent) 0.5 mg IH RQID [facility] Last Admin: 01/11/18 11:27 Dose: 0.5 mg Lactobacillus Acidophilus (Bacid Acidophilus) 1 cap PO BID [facility] Last Admin: 01/11/18 10:10 Dose: 1 cap Levalbuterol HCl (Xopenex) 0.63 mg INH RQ4 PRN PRN Reason: Shortness of Breath Levothyroxine Sodium (Synthroid) 75 mcg PO DAILY@0630 [facility] Last Admin: 01/11/18 05:50 Dose: 75 mcg Magnesium Oxide (Mag-Ox) 400 mg PO BID [facility] Last Admin: 01/11/18 09:53 Dose: 400 mg Metoprolol Tartrate (Lopressor) 50 mg PO Q12 [facility] Last Admin: 01/11/18 09:51 Dose: 50 mg Mirtazapine (Remeron) 7.5 mg PO HS [facility] Last Admin: 01/10/18 22:16 Dose: 7.5 mg Multivitamins/Minerals (Therapeutic-M Tab) 1 tab PO DAILY [facility] Last Admin: 01/11/18 09:54 Dose: 1 tab Ondansetron HCl (Zofran Inj) 4 mg IVP Q6 PRN PRN Reason: Nausea/Vomiting Pantoprazole Sodium (Protonix Ec Tab) 40 mg PO DAILY [facility] Last Admin: 01/11/18 09:53 Dose: 40 mg Tolvaptan (Samsca) 15 mg PO DAILY [facility] - Labs Labs: 01/11/18 06:51 01/11/18 06:51 - Constitutional Appears: Chronically Ill, Other (frail ) - Head Exam Head Exam: ATRAUMATIC, NORMOCEPHALIC - Eye Exam Eye Exam: PERRL - ENT Exam ENT Exam: Mucous Membranes Dry - Neck Exam Neck Exam: Normal Inspection - Respiratory Exam Respiratory Exam: Rhonchi. absent: Wheezes, Respiratory Distress - Cardiovascular Exam Cardiovascular Exam: Irregular Rhythm, RRR, +S1, +S2. absent: JVD - GI/Abdominal Exam GI & Abdominal Exam: Soft, Normal Bowel Sounds. 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 1. B-cell lymphoma / MDS (myelodysplastic syndrome) admitted for chemotherapy Dr De Dios on hematology/oncology consult will monitor CBC closely since patient has history of pancytopenia post chemo 2. history of Pancytopenia sec to Chemotherapy monitor closely cbc 3. Chronic A-fib on Metoprolol 75mg PO BID. no anticoagulation due to thrombocytopenia 4. COPD chronic continue Atrovent and Xopenex pulmonary consult 5. 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 Consulted nephro and lowered dose of tovalptan from 30 to 15 mg daily 6. Hypothyroid Levothyroxine 50mcg daily 7. CKD stage III stable 8. Hypertension / CAD Resumed home meds controlled
[2018-01-12] MEDS: Levothyroxine 75 MCG TAB PO SCH (05:54)
[2018-01-12 06:44] LABS: HEMOGLOBIN 10.2 g/dL (12.0-16.0); MEAN CELL VOLUME 92.2 fl (81.0-99.0); MEAN CORPUSCULAR HEMOGLOBIN 28.6 pg (27.0-31.0); MEAN CORPUSCULAR HGB CONC 31.1 g/dL (33.0-37.0); RBC 3.57 Mil/uL (3.80-5.20); RED CELL DISTRIBUTION WIDTH 21.4 % (11.5-14.5); WHITE BLOOD COUNT 9.4 K/uL (4.8-10.8)
[2018-01-12 06:59] LABS: CALCIUM 8.9 mg/dL (8.4-10.2)
[2018-01-12] MEDS: Ipratropium 0.02% Inhal Soln (0.5 mg/2.5 ml) UD IH SCH ×4 (07:58→19:09)
--- NOTE | 2018-01-12 08:05 | CP.PCM.CON ---
History of Present Illness - History of Present Illness History of Present Illness: This 77-year-old female is well-known to me from prior hospitalizations as well as the outpatient setting. She suffers from a number of comorbid illnesses which includes chronic obstructive pulmonary disease as well as obstructive sleep apnea. She also suffers from chronic atrial fibrillation, hypertension, hyperlipidemia, diabetes, B-cell lymphoma. She is admitted to the hospital at the present time to receive further chemotherapy for her lymphoma and is followed by myself because of her underlying pulmonary disease. She has had significant hyponatremia with SIADH and has been treated with Samsca in the past and has also had significant amount of fluid overload. She has had bilateral pleural effusions as well as basal infiltrates which have been difficult to clear but on her last chest x-ray showed only residual small effusions in the bases. She has been in subacute rehabilitation at the present time and returns as mentioned above for chemotherapy. Past Patient History - Infectious Disease Hx of Infectious Diseases: None - Tetanus Immunizations Tetanus Immunization: Unknown - Past Medical History & Family History Past Medical History?: Yes - Past Social History Smoking Status: Former Smoker Chewing Tobacco Use: No Cigar Use: No Alcohol: None Drugs: Denies Home Situation {Lives}: Other (Subacute rehabilitation) - CARDIAC Hx Atrial Fibrillation: Yes Hx Congestive Heart Failure: Yes Hx Hypercholesterolemia: Yes Hx Hypertension: Yes Hx Peripheral Edema: Yes Other/Comment: CAD - PULMONARY Hx Chronic Obstructive Pulmonary Disease (COPD): Yes Hx Pneumonia: Yes Hx Sleep Apnea: Yes Other/Comment: Pleural effusion - NEUROLOGICAL Hx Neurological Disorder: No - HEENT Hx HEENT Problems: Yes (Hearing loss in the right ear.) Other/Comment: Use Eyeglasses - RENAL Hx Chronic Kidney Disease: Yes - ENDOCRINE/METABOLIC Hx Diabetes Mellitus Type 2: Yes Hx Hypothyroidism: Yes - HEMATOLOGICAL/ONCOLOGICAL Hx Anemia: Yes Hx Lymphoma: Yes Other/Comment: Myelodysplastic syndrome - INTEGUMENTARY Hx Dermatological Problems: No - MUSCULOSKELETAL/RHEUMATOLOGICAL Hx Back Pain: Yes Hx Degenerative Joint Disease: Yes Hx Falls: Yes Hx Herniated Disk: Yes - GASTROINTESTINAL Hx Gastritis: Yes - GENITOURINARY/GYNECOLOGICAL Hx Incontinence: Yes - PSYCHIATRIC Hx Psychophysiologic Disorder: No Hx Substance Use: No - SURGICAL HISTORY Hx Coronary Artery Bypass Graft: Yes (2000) Hx Coronary Stent: Yes (PCI 2007 and 2010) Hx Joint Replacement: Yes (bilateral knee replacement) - ANESTHESIA Hx Anesthesia: Yes Hx Anesthesia Reactions: No Hx Malignant Hyperthermia: No Meds Allergies/Adverse Reactions: Allergies Allergy/AdvReac Type Severity Reaction Status Date / Time vancomycin AdvReac Intermediate NAUSEA Verified 11/25/17 11:20 - Medications Medications: Current Medications Acetaminophen (Tylenol 325mg Tab) 650 mg PO Q6 PRN PRN Reason: Fever >100.4 F Acetaminophen (Tylenol 650 Mg Supp) 650 mg [place] Q6 PRN PRN Reason: Fever >100.4 F Atorvastatin Calcium (Lipitor) 10 mg PO HS [facility] Last Admin: 01/11/18 21:09 Dose: 10 mg Benzonatate (Tessalon Perles) 200 mg PO TID PRN PRN Reason: Cough Last Admin: 01/11/18 05:55 Dose: 200 mg Cholecalciferol (Vitamin D) 1,000 intlu PO DAILY [facility] Last Admin: 01/11/18 09:54 Dose: 1,000 intlu Dextrose (Dextrose 50% Inj) 0 ml IV STAT PRN; Protocol PRN Reason: Hypoglycemia Protocol Dextrose (Glutose 15) 0 gm PO ONCE PRN; Protocol PRN Reason: Hypoglycemia Protocol Digoxin (Digoxin) 0.125 mg PO DAILY [facility] Last Admin: 01/11/18 09:50 Dose: 0.125 mg Dimethicone (Proshield Plus Skin Protectant) 1 applic TOP Q8 PRN PRN Reason: Rash Docusate Sodium (Colace) 100 mg PO BID [facility] Last Admin: 01/11/18 17:37 Dose: 100 mg Emollient Ointment (Vaseline Oint) 1 pkt TOP BID [facility] Last Admin: 01/11/18 17:36 Dose: 1 pkt Epoetin Rolo (Procrit) 40,000 unit SC WED [facility] Glucagon (Glucagen Diagnostic Kit) 0 mg IM STAT PRN; Protocol PRN Reason: Hypoglycemia Protocol Sodium Chloride (Sodium Chloride 0.9%) 500 mls @ 70 mls/hr IV .Q7H9M [facility] Last Admin: 01/11/18 01:18 Dose: Not Given Azacitidine 160 mg/ CHEMO IV 0 mls @ 0 mls/hr SC DAILY [facility] Stop: 01/14/18 13:01 Last Admin: 01/11/18 12:00 Dose: 160 mls/hr Insulin Human Lispro (Humalog) 0 units SC [facility]; Protocol Last Admin: 01/11/18 23:00 Dose: Not Given Ipratropium [place] (Atrovent) 0.5 mg IH RQID [facility] Last Admin: 01/12/18 07:58 Dose: 0.5 mg Lactobacillus Acidophilus (Bacid Acidophilus) 1 cap PO BID [facility] Last Admin: 01/11/18 17:38 Dose: 1 cap Levalbuterol HCl (Xopenex) 0.63 mg INH RQ4 PRN PRN Reason: Shortness of Breath Levothyroxine Sodium (Synthroid) 75 mcg PO DAILY@0630 [facility] Last Admin: 01/12/18 05:54 Dose: 75 mcg Magnesium Oxide (Mag-Ox) 400 mg PO BID [facility] Last Admin: 01/11/18 17:36 Dose: 400 mg Metoprolol Tartrate (Lopressor) 50 mg PO Q12 [facility] Last Admin: 01/11/18 21:08 Dose: 50 mg Mirtazapine (Remeron) 7.5 mg PO HS [facility] Last Admin: 01/11/18 21:10 Dose: 7.5 mg Multivitamins/Minerals (Therapeutic-M Tab) 1 tab PO DAILY [facility] Last Admin: 01/11/18 09:54 Dose: 1 tab Ondansetron HCl (Zofran Inj) 4 mg IVP Q6 PRN PRN Reason: Nausea/Vomiting Pantoprazole Sodium (Protonix Ec Tab) 40 mg PO DAILY [facility] Last Admin: 01/11/18 09:53 Dose: 40 mg Tolvaptan (Samsca) 15 mg PO DAILY [facility] Physical Exam - Additional Findings Additional findings: Awake, alert, interactive and following commands, cooperative with examination. Voice is intermittently hoarse, but stronger than it had been on previous admission. Memory appears intact and speech is fluent. Pharynx is pink and the mucous membranes are moist. The neck is supple and trachea is midline. There is no dullness on percussion of the anterior thorax. No subcutaneous emphysema. LifePort is present in the right anterior chest wall. Breath sounds are somewhat diminished bilaterally but present equally. Scattered sonorous rhonchi are heard throughout both lungs in dependent zones. No audible wheezing is appreciated. Few scattered dry to medium rales are present in the lower lobes posteriorly. No bronchial breathing or egophony. The heart sounds are distant and the rhythm is irregularly irregular. Abdomen is soft and fleshy and nontender. Bowel sounds are present. Dependent edema is present equally in both lower extremities, but is diminished compared to last hospitalization. No cyanosis. No jaundice. No calf tenderness. Healed surgical scars both knees. Results - Vital Signs Recent Vital Signs: Last Vital Signs Temp 98.0 F 01/11/18 23:52 Pulse 80 01/11/18 23:52 Resp 19 01/11/18 23:52 BP 121/63 01/11/18 23:52 Pulse Ox 100 01/11/18 23:52 - Labs Result Diagrams: 01/12/18 05:30 01/12/18 05:30 Labs: Laboratory Results - last 24 hr 01/11/18 01/11/18 01/11/18 11:26 15:41 22:02 WBC RBC Hgb Hct MCV MCH MCHC RDW Plt Count Sodium Potassium Chloride Carbon Dioxide Anion Gap BUN Creatinine Est GFR ( Amer) Est GFR (Non-Af Amer) POC Glucose (mg/dL) 165 H 122 H 175 H Random Glucose Calcium 01/12/18 01/12/18 01/12/18 05:18 05:30 05:30 WBC 9.4 RBC 3.57 L Hgb 10.2 L Hct 32.9 L MCV 92.2 MCH 28.6 MCHC 31.1 L RDW 21.4 H Plt Count 105 L D Sodium 146 Potassium 3.9 Chloride 111 H Carbon Dioxide 34 H Anion Gap 5 L BUN 42 H Creatinine 1.2 Est GFR ( Amer) 53 Est GFR (Non-Af Amer) 44 POC Glucose (mg/dL) 139 H Random Glucose 138 H Calcium 8.9 Assessment & Plan (1) B-cell lymphoma Status: Chronic Priority: High (2) Chronic kidney disease (CKD) Status: Chronic Priority: High (3) 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 Albuterol will be reserved for when necessary use only in light of atrial fibrillation and prior history of RVR. - Date & Time Date: 01/11/18 Time: 10:30
--- NOTE | 2018-01-12 08:25 | CP.PCM.PN ---
Addendum entered and electronically signed by Cristian Andrade MD 01/12/18 16:34: Patient seen and examined bedside . All chart and clinical data reviewed .Case discussed with resident . Agree with assessment and plan. She appears weak, tired with soft hoarse voice , in no acute distress. Has chest congestion with non productive coughing spells Very poor PO intake received 3rd dose of chemo today WBC 9 Hgb 10 Plt 105 K Na 146 Will d/c tolvaptan Continue to monitor CBC and BMP started D5 /2 NS 2 80 cc/hr Follow up with oncology Original Note: Subjective - Date & Time of Evaluation Date of Evaluation: 01/12/18 Time of Evaluation: 08:25 - Subjective Subjective: Patient seen and examined at bedside. She is asleep but easily arousable, no acute distress. She reports no discomfort at this time. She just reports being exhausted. Denies chest pain, shortness of breath, and abdominal pain. Objective - Vital Signs/Intake and Output Vital Signs (last 24 hours): Temp Pulse Resp BP Pulse Ox 98.0 F 80 19 121/63 100 01/11/18 23:52 01/11/18 23:52 01/11/18 23:52 01/11/18 23:52 01/11/18 23:52 - Medications Medications: Current Medications Acetaminophen (Tylenol 325mg Tab) 650 mg PO Q6 PRN PRN Reason: Fever >100.4 F Acetaminophen (Tylenol 650 Mg Supp) 650 mg IN Q6 PRN PRN Reason: Fever >100.4 F Atorvastatin Calcium (Lipitor) 10 mg PO HS [facility] Last Admin: 01/11/18 21:09 Dose: 10 mg Benzonatate (Tessalon Perles) 200 mg PO TID PRN PRN Reason: Cough Last Admin: 01/11/18 05:55 Dose: 200 mg Cholecalciferol (Vitamin D) 1,000 intlu PO DAILY [facility] Last Admin: 01/11/18 09:54 Dose: 1,000 intlu Dextrose (Dextrose 50% Inj) 0 ml IV STAT PRN; Protocol PRN Reason: Hypoglycemia Protocol Dextrose (Glutose 15) 0 gm PO ONCE PRN; Protocol PRN Reason: Hypoglycemia Protocol Digoxin (Digoxin) 0.125 mg PO DAILY [facility] Last Admin: 01/11/18 09:50 Dose: 0.125 mg Dimethicone (Proshield Plus Skin Protectant) 1 applic TOP Q8 PRN PRN Reason: Rash Docusate Sodium (Colace) 100 mg PO BID [facility] Last Admin: 01/11/18 17:37 Dose: 100 mg Emollient Ointment (Vaseline Oint) 1 pkt TOP BID [facility] Last Admin: 01/11/18 17:36 Dose: 1 pkt Epoetin Rolo (Procrit) 40,000 unit SC WED [facility] Glucagon (Glucagen Diagnostic Kit) 0 mg IM STAT PRN; Protocol PRN Reason: Hypoglycemia Protocol Sodium Chloride (Sodium Chloride 0.9%) 500 mls @ 70 mls/hr IV .Q7H9M [facility] Last Admin: 01/11/18 01:18 Dose: Not Given Azacitidine 160 mg/ CHEMO IV 0 mls @ 0 mls/hr SC DAILY [facility] Stop: 01/14/18 13:01 Last Admin: 01/11/18 12:00 Dose: 160 mls/hr Insulin Human Lispro (Humalog) 0 units SC ACHS [facility]; Protocol Last Admin: 01/11/18 23:00 Dose: Not Given Ipratropium [place] (Atrovent) 0.5 mg IH RQID [facility] Last Admin: 01/12/18 07:58 Dose: 0.5 mg Lactobacillus Acidophilus (Bacid Acidophilus) 1 cap PO BID [facility] Last Admin: 01/11/18 17:38 Dose: 1 cap Levalbuterol HCl (Xopenex) 0.63 mg INH RQ4 PRN PRN Reason: Shortness of Breath Levothyroxine Sodium (Synthroid) 75 mcg PO DAILY@0630 [facility] Last Admin: 01/12/18 05:54 Dose: 75 mcg Magnesium Oxide (Mag-Ox) 400 mg PO BID [facility] Last Admin: 01/11/18 17:36 Dose: 400 mg Metoprolol Tartrate (Lopressor) 50 mg PO Q12 [facility] Last Admin: 01/11/18 21:08 Dose: 50 mg Mirtazapine (Remeron) 7.5 mg PO HS [facility] Last Admin: 01/11/18 21:10 Dose: 7.5 mg Multivitamins/Minerals (Therapeutic-M Tab) 1 tab PO DAILY [facility] Last Admin: 01/11/18 09:54 Dose: 1 tab Ondansetron HCl (Zofran Inj) 4 mg IVP Q6 PRN PRN Reason: Nausea/Vomiting Pantoprazole Sodium (Protonix Ec Tab) 40 mg PO DAILY [facility] Last Admin: 01/11/18 09:53 Dose: 40 mg Tolvaptan (Samsca) 15 mg PO DAILY [facility] - Labs Labs: 01/12/18 05:30 01/12/18 05:30 - Constitutional Appears: No Acute Distress, Older Than Stated Age, Chronically Ill - ENT Exam ENT Exam: Mucous Membranes Moist - Respiratory Exam Respiratory Exam: Decreased Breath Sounds, Rales, Rhonchi - Cardiovascular Exam Cardiovascular Exam: Irregular Rhythm, +S1, +S2 (distant heart sounds. ) - GI/Abdominal Exam GI & Abdominal Exam: Distended (protruding obese abdomen. ), Soft, Normal Bowel Sounds. absent: Firm, Guarding, Tenderness, Diminished Bowel Sounds, Rebound - Extremities Exam Extremities Exam: absent: Calf Tenderness (chronic bilateral lower extremity skin changes. +2 dorsalis pedis pulses palpable. ) - Neurological Exam Neurological Exam: absent: Awake (sleepy. ) - Psychiatric Exam Psychiatric exam: Normal Affect - Skin Skin Exam: Dry, Pallor, Warm Assessment and Plan - Assessment and Plan (Free Text) Assessment: 77-year-old woman with a past medical history of HTN, CAD s/p CABG, atrial fibrillation (not on anticoagulation due to thrombocytopenia), lymphoma, MDS s/p chemo with pancytopenia who is 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 Plan: 1. B-cell lymphoma / MDS (myelodysplastic syndrome) admitted for chemotherapy Dr De Dios on hematology/oncology consult will monitor CBC closely since patient has history of pancytopenia post chemo Patient receiving 3rd dose of Azacitidine today 2. history of Pancytopenia sec to Chemotherapy monitor closely cbc 3. Chronic A-fib on Metoprolol 75mg PO BID. no anticoagulation due to thrombocytopenia 4. COPD chronic continue Atrovent and Xopenex Pulmonary consult, Dr. Vazquez, appreciated: continue maintenance aerosol therapy using ipratropium bromide via nebulizer; reserve albuterol when necessary due to a-fib and prior history of RVR. 5. Hyponatremia-- has resolved sec to SIADH which is chronic Na 146 today . Trend tomorrow's BMP and if elevated possibly lower and lowered dose of tovalptan from 30 to 15 mg daily 6. Hypothyroid Levothyroxine 50mcg daily 7. CKD stage III stable 8. Hypertension / CAD Resumed home meds controlled
[2018-01-12] MEDS ORDERED: Tolvaptan 15 MG TAB PO SCH (09:00)
--- NOTE | 2018-01-12 09:05 | CP.PCM.PN ---
Subjective - Date & Time of Evaluation Date of Evaluation: 01/12/18 Time of Evaluation: 09:05 - Subjective Subjective: Pt is afebrile,in no acute distress. Vital signs are normal and the CBC is in the normal range as wellWill get the 3rd dose of Azacitidine today Objective - Vital Signs/Intake and Output Vital Signs (last 24 hours): Temp Pulse Resp BP Pulse Ox 97.5 F L 67 18 149/69 97 01/12/18 08:49 01/12/18 08:49 01/12/18 08:49 01/12/18 08:49 01/12/18 08:49 - Medications Medications: Current Medications Acetaminophen (Tylenol 325mg Tab) 650 mg PO Q6 PRN PRN Reason: Fever >100.4 F Acetaminophen (Tylenol 650 Mg Supp) 650 mg [place] Q6 PRN PRN Reason: Fever >100.4 F Atorvastatin Calcium (Lipitor) 10 mg PO HS [facility] Last Admin: 01/11/18 21:09 Dose: 10 mg Benzonatate (Tessalon Perles) 200 mg PO TID PRN PRN Reason: Cough Last Admin: 01/11/18 05:55 Dose: 200 mg Cholecalciferol (Vitamin D) 1,000 intlu PO DAILY [facility] Last Admin: 01/11/18 09:54 Dose: 1,000 intlu Dextrose (Dextrose 50% Inj) 0 ml IV STAT PRN; Protocol PRN Reason: Hypoglycemia Protocol Dextrose (Glutose 15) 0 gm PO ONCE PRN; Protocol PRN Reason: Hypoglycemia Protocol Digoxin (Digoxin) 0.125 mg PO DAILY [facility] Last Admin: 01/11/18 09:50 Dose: 0.125 mg Dimethicone (Proshield Plus Skin Protectant) 1 applic TOP Q8 PRN PRN Reason: Rash Docusate Sodium (Colace) 100 mg PO BID [facility] Last Admin: 01/11/18 17:37 Dose: 100 mg Emollient Ointment (Vaseline Oint) 1 pkt TOP BID [facility] Last Admin: 01/11/18 17:36 Dose: 1 pkt Epoetin Rolo (Procrit) 40,000 unit SC WED [facility] Glucagon (Glucagen Diagnostic Kit) 0 mg IM STAT PRN; Protocol PRN Reason: Hypoglycemia Protocol Sodium Chloride (Sodium Chloride 0.9%) 500 mls @ 70 mls/hr IV .Q7H9M [facility] Last Admin: 01/11/18 01:18 Dose: Not Given Azacitidine 160 mg/ CHEMO IV 0 mls @ 0 mls/hr SC DAILY [facility] Stop: 01/14/18 13:01 Last Admin: 01/11/18 12:00 Dose: 160 mls/hr Insulin Human Lispro (Humalog) 0 units SC ACHS [facility]; Protocol Last Admin: 01/11/18 23:00 Dose: Not Given Ipratropium [place] (Atrovent) 0.5 mg IH RQID [facility] Last Admin: 01/12/18 07:58 Dose: 0.5 mg Lactobacillus Acidophilus (Bacid Acidophilus) 1 cap PO BID [facility] Last Admin: 01/11/18 17:38 Dose: 1 cap Levalbuterol HCl (Xopenex) 0.63 mg INH RQ4 PRN PRN Reason: Shortness of Breath Levothyroxine Sodium (Synthroid) 75 mcg PO DAILY@0630 [facility] Last Admin: 01/12/18 05:54 Dose: 75 mcg Magnesium Oxide (Mag-Ox) 400 mg PO BID [facility] Last Admin: 01/11/18 17:36 Dose: 400 mg Metoprolol Tartrate (Lopressor) 50 mg PO Q12 [facility] Last Admin: 01/11/18 21:08 Dose: 50 mg Mirtazapine (Remeron) 7.5 mg PO HS [facility] Last Admin: 01/11/18 21:10 Dose: 7.5 mg Multivitamins/Minerals (Therapeutic-M Tab) 1 tab PO DAILY [facility] Last Admin: 01/11/18 09:54 Dose: 1 tab Ondansetron HCl (Zofran Inj) 4 mg IVP Q6 PRN PRN Reason: Nausea/Vomiting Pantoprazole Sodium (Protonix Ec Tab) 40 mg PO DAILY [facility] Last Admin: 01/11/18 09:53 Dose: 40 mg Tolvaptan (Samsca) 15 mg PO DAILY [facility] - Labs Labs: 01/12/18 05:30 01/12/18 05:30
[2018-01-12] MEDS: Insulin Lispro (humaLOG) 100 Units/ml Inj SC SCH ×4 (09:09→21:34)
[2018-01-12] MEDS: Lactobacillus Acidophilus 500 MU Cap PO SCH ×2 (09:20→16:31)
[2018-01-12] MEDS: Magnesium Oxide 400 mg Tab UD PO SCH ×2 (09:20→16:32)
[2018-01-12] MEDS: Cholecalciferol 1,000 INTLU TAB PO SCH (09:20)
[2018-01-12] MEDS: Digoxin 125 mcg (0.125 mg) Tab PO SCH (09:21)
[2018-01-12] MEDS: Pantoprazole 40 mg EC Tab PO SCH (09:21)
[2018-01-12] MEDS: Multivitamin With Minerals Tab PO SCH (09:21)
[2018-01-12] MEDS: Petrolatum UD PAK TOP SCH ×2 (09:22→16:32)
--- NOTE | 2018-01-12 10:25 | PQF ---
PROVIDER RESPONSE TEXT: This is not my diagnosis,it came up from medical record REVIEWER QUERY TEXT: Documentation Clarification Your help is requested in clarifying the following clinical documentation, if you can please further specify in the medical record and discharge summary. Consult of 01/11 has a diagnosis of Acute on Chronic Systolic CHF. Would you please clarify if this diagnosis is for the current admission or a prior admission Patient admitted for Chemotherapy. The patient's Clinical Indicators include: Consult of 01/11 has a diagnosis of Acute on Chronic Systolic CHF. Patient admitted for Chemotherapy. Would you please clarify if this is for the current admission or a history of this diagnosis. Query created by: Ludivina Bower on 01/12/2018 8:03 AM Electronically signed by: Jordan Allen MD 01/12/2018 10:23 AM
--- NOTE | 2018-01-12 10:43 | CP.PCM.PN ---
Subjective - Date & Time of Evaluation Date of Evaluation: 01/12/18 Time of Evaluation: 10:41 - Subjective Subjective: patient conscious and alert not in acute distress no vomiting Objective - Vital Signs/Intake and Output Vital Signs (last 24 hours): Temp Pulse Resp BP Pulse Ox 97.5 F L 67 18 149/69 97 01/12/18 08:49 01/12/18 09:22 01/12/18 08:49 01/12/18 09:22 01/12/18 08:49 - Medications Medications: Current Medications Acetaminophen (Tylenol 325mg Tab) 650 mg PO Q6 PRN PRN Reason: Fever >100.4 F Acetaminophen (Tylenol 650 Mg Supp) 650 mg [place] Q6 PRN PRN Reason: Fever >100.4 F Atorvastatin Calcium (Lipitor) 10 mg PO HS [facility] Last Admin: 01/11/18 21:09 Dose: 10 mg Benzonatate (Tessalon Perles) 200 mg PO TID PRN PRN Reason: Cough Last Admin: 01/11/18 05:55 Dose: 200 mg Cholecalciferol (Vitamin D) 1,000 intlu PO DAILY [facility] Last Admin: 01/12/18 09:20 Dose: 1,000 intlu Dextrose (Dextrose 50% Inj) 0 ml IV STAT PRN; Protocol PRN Reason: Hypoglycemia Protocol Dextrose (Glutose 15) 0 gm PO ONCE PRN; Protocol PRN Reason: Hypoglycemia Protocol Digoxin (Digoxin) 0.125 mg PO DAILY [facility] Last Admin: 01/12/18 09:21 Dose: 0.125 mg Dimethicone (Proshield Plus Skin Protectant) 1 applic TOP Q8 PRN PRN Reason: Rash Docusate Sodium (Colace) 100 mg PO BID [facility] Last Admin: 01/12/18 09:21 Dose: 100 mg Emollient Ointment (Vaseline Oint) 1 pkt TOP BID [facility] Last Admin: 01/12/18 09:22 Dose: 1 pkt Epoetin Rolo (Procrit) 40,000 unit SC WED [facility] Glucagon (Glucagen Diagnostic Kit) 0 mg IM STAT PRN; Protocol PRN Reason: Hypoglycemia Protocol Sodium Chloride (Sodium Chloride 0.9%) 500 mls @ 70 mls/hr IV .Q7H9M [facility] Last Admin: 01/11/18 01:18 Dose: Not Given Azacitidine 160 mg/ CHEMO IV 0 mls @ 0 mls/hr SC DAILY [facility] Stop: 01/14/18 13:01 Last Admin: 01/11/18 12:00 Dose: 160 mls/hr Insulin Human Lispro (Humalog) 0 units SC ACHS [facility]; Protocol Last Admin: 01/12/18 09:09 Dose: Not Given Ipratropium [place] (Atrovent) 0.5 mg IH RQID [facility] Last Admin: 01/12/18 07:58 Dose: 0.5 mg Lactobacillus Acidophilus (Bacid Acidophilus) 1 cap PO BID [facility] Last Admin: 01/12/18 09:20 Dose: 1 cap Levalbuterol HCl (Xopenex) 0.63 mg INH RQ4 PRN PRN Reason: Shortness of Breath Levothyroxine Sodium (Synthroid) 75 mcg PO DAILY@0630 [facility] Last Admin: 01/12/18 05:54 Dose: 75 mcg Magnesium Oxide (Mag-Ox) 400 mg PO BID [facility] Last Admin: 01/12/18 09:20 Dose: 400 mg Metoprolol Tartrate (Lopressor) 50 mg PO Q12 [facility] Last Admin: 01/12/18 09:22 Dose: 50 mg Mirtazapine (Remeron) 7.5 mg PO HS [facility] Last Admin: 01/11/18 21:10 Dose: 7.5 mg Multivitamins/Minerals (Therapeutic-M Tab) 1 tab PO DAILY [facility] Last Admin: 01/12/18 09:21 Dose: 1 tab Ondansetron HCl (Zofran Inj) 4 mg IVP Q6 PRN PRN Reason: Nausea/Vomiting Pantoprazole Sodium (Protonix Ec Tab) 40 mg PO DAILY [facility] Last Admin: 01/12/18 09:21 Dose: 40 mg Tolvaptan (Samsca) 15 mg PO DAILY [facility] Last Admin: 01/12/18 09:21 Dose: 15 mg - Labs Labs: 01/12/18 05:30 01/12/18 05:30 - Constitutional Appears: No Acute Distress - Eye Exam Eye Exam: Conjunctival injection - ENT Exam ENT Exam: Mucous Membranes Moist - Respiratory Exam Respiratory Exam: NORMAL BREATHING PATTERN. absent: Chest Wall Tenderness, Rhonchi - Cardiovascular Exam Cardiovascular Exam: absent: Gallop, JVD, Rubs - GI/Abdominal Exam GI & Abdominal Exam: Soft, Normal Bowel Sounds - Extremities Exam Extremities Exam: absent: Calf Tenderness - Back Exam Back Exam: absent: CVA tenderness (L), CVA tenderness (R) - Neurological Exam Neurological Exam: Alert - Skin Skin Exam: absent: Cyanosis Assessment and Plan (1) Chronic kidney disease (CKD) stage G3a/A1, moderately decreased glomerular filtration rate (GFR) between 45-59 mL/min/1.73 square meter and albuminuria creatinine ratio less than 30 mg/g Assessment & Plan: patient has history of hyponatremia related to SIADH from previous admissions for which she was on Samsca 30 mg daily as outpatient. Now serum sodium has gone up to 146 therefore DC Samsca for couple of days and reassessment the need for Samsca in few days MDS as per hematology oncology patient receiving chemotherapy CK D stage III has been stable Status: Acute
[2018-01-12] MEDS: AZACITIDINE SC SCH (11:09)
[2018-01-12] MEDS: CHEMO SC SCH (11:09)
--- NOTE | 2018-01-12 13:44 | CP.PCM.PN ---
Subjective - Date & Time of Evaluation Date of Evaluation: 01/12/18 Time of Evaluation: 13:44 - Subjective Subjective: he patient continues to bashir generalized weakness/lethargy and remains bedbound. She has received chemotherapy 3 doses. She does continue to have a nonproductive cough. Her voice is still intermittently hoarse, but is stronger as mentioned yesterday. Her dependent edema is al improved from previous admission, but not any different from yesterday. She remains afebrile and she is mildly hypertensive at times. Her oxygenation is satisfactory on nasal cannula 2 L/m. Her breath sounds are slightly diminished bilaterally but are present equally. Occasional rhonchi are heard in the dependent areas of both lungs without any wheezing and only rare dry to medium rales posteriorly in the lower lobes. Will add guaifenesin to the regimen every 12 hours because of the dry cough, and continue Tessalon on an as-needed basis. Objective - Vital Signs/Intake and Output Vital Signs (last 24 hours): Temp Pulse Resp BP Pulse Ox 97.5 F L 67 18 149/69 97 01/12/18 08:49 01/12/18 09:22 01/12/18 08:49 01/12/18 09:22 01/12/18 08:49 - Medications Medications: Current Medications Acetaminophen (Tylenol 325mg Tab) 650 mg PO Q6 PRN PRN Reason: Fever >100.4 F Acetaminophen (Tylenol 650 Mg Supp) 650 mg [place] Q6 PRN PRN Reason: Fever >100.4 F Atorvastatin Calcium (Lipitor) 10 mg PO HS [facility] Last Admin: 01/11/18 21:09 Dose: 10 mg Benzonatate (Tessalon Perles) 200 mg PO TID PRN PRN Reason: Cough Last Admin: 01/11/18 05:55 Dose: 200 mg Cholecalciferol (Vitamin D) 1,000 intlu PO DAILY [facility] Last Admin: 01/12/18 09:20 Dose: 1,000 intlu Dextrose (Dextrose 50% Inj) 0 ml IV STAT PRN; Protocol PRN Reason: Hypoglycemia Protocol Dextrose (Glutose 15) 0 gm PO ONCE PRN; Protocol PRN Reason: Hypoglycemia Protocol Digoxin (Digoxin) 0.125 mg PO DAILY [facility] Last Admin: 01/12/18 09:21 Dose: 0.125 mg Dimethicone (Proshield Plus Skin Protectant) 1 applic TOP Q8 PRN PRN Reason: Rash Docusate Sodium (Colace) 100 mg PO BID [facility] Last Admin: 01/12/18 09:21 Dose: 100 mg Emollient Ointment (Vaseline Oint) 1 pkt TOP BID [facility] Last Admin: 01/12/18 09:22 Dose: 1 pkt Epoetin Rolo (Procrit) 40,000 unit SC WED [facility] Glucagon (Glucagen Diagnostic Kit) 0 mg IM STAT PRN; Protocol PRN Reason: Hypoglycemia Protocol Guaifenesin (Mucinex [place]) 600 mg PO Q12 [facility] Sodium Chloride (Sodium Chloride 0.9%) 500 mls @ 70 mls/hr IV .Q7H9M [facility] Last Admin: 01/11/18 01:18 Dose: Not Given Azacitidine 160 mg/ CHEMO IV 0 mls @ 0 mls/hr SC DAILY [facility] Stop: 01/14/18 13:01 Last Admin: 01/12/18 11:09 Dose: 160 mls/hr Insulin Human Lispro (Humalog) 0 units SC ACHS [facility]; Protocol Last Admin: 01/12/18 12:02 Dose: Not Given Ipratropium [place] (Atrovent) 0.5 mg IH RQID [facility] Last Admin: 01/12/18 12:49 Dose: 0.5 mg Lactobacillus Acidophilus (Bacid Acidophilus) 1 cap PO BID [facility] Last Admin: 01/12/18 09:20 Dose: 1 cap Levalbuterol HCl (Xopenex) 0.63 mg INH RQ4 PRN PRN Reason: Shortness of Breath Levothyroxine Sodium (Synthroid) 75 mcg PO DAILY@0630 [facility] Last Admin: 01/12/18 05:54 Dose: 75 mcg Magnesium Oxide (Mag-Ox) 400 mg PO BID [facility] Last Admin: 01/12/18 09:20 Dose: 400 mg Metoprolol Tartrate (Lopressor) 50 mg PO Q12 [facility] Last Admin: 01/12/18 09:22 Dose: 50 mg Mirtazapine (Remeron) 7.5 mg PO HS [facility] Last Admin: 01/11/18 21:10 Dose: 7.5 mg Multivitamins/Minerals (Therapeutic-M Tab) 1 tab PO DAILY [facility] Last Admin: 01/12/18 09:21 Dose: 1 tab Ondansetron HCl (Zofran Inj) 4 mg IVP Q6 PRN PRN Reason: Nausea/Vomiting Pantoprazole Sodium (Protonix Ec Tab) 40 mg PO DAILY [facility] Last Admin: 01/12/18 09:21 Dose: 40 mg - Labs Labs: 01/12/18 05:30 01/12/18 05:30 Assessment and Plan (1) B-cell lymphoma Status: Chronic (2) Chronic kidney disease (CKD) Status: Chronic (3) 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
--- NOTE | 2018-01-12 14:33 | RAD ---
Date of service: 01/12/2018 HISTORY: cough COMPARISON: 12/22/2017 FINDINGS: LUNGS: Limited portable examination. Examination limited by oblique positioning. Patchy opacity at left lung base.. Possible pneumonia. Followup advised. PLEURA: Small to moderate right pleural effusion. No left pleural effusion appreciated. No pneumothorax. CARDIOVASCULAR: Right internal jugular central venous infusion port. Mild cardiomegaly. Mild congestive change. OSSEOUS STRUCTURES: No significant abnormalities. VISUALIZED UPPER ABDOMEN: Normal. OTHER FINDINGS: Sternotomy wires IMPRESSION: Left lower lobe patchy opacity. Followup advised to rule out pneumonia. Small to moderate right pleural effusion. Cardiomegaly mild congestive change.
[2018-01-12] MEDS: Dextrose 5%/0.45% NS 1,000 ML IV SCH (16:31)
[2018-01-12] MEDS: guaiFENesin 600 mg ER Tab PO SCH (21:27)
[2018-01-13] MEDS: Dextrose 5%/0.45% NS 1,000 ML IV SCH (05:30)
[2018-01-13] MEDS: Levothyroxine 75 MCG TAB PO SCH (05:45)
[2018-01-13] MEDS: Levalbuterol 0.63 MG/3 ML Inhal Soln UD INH PRN (06:01)
[2018-01-13 06:28] LABS: HEMOGLOBIN 10.6 g/dL (12.0-16.0); MEAN CELL VOLUME 93.4 fl (81.0-99.0); MEAN CORPUSCULAR HEMOGLOBIN 28.7 pg (27.0-31.0); MEAN CORPUSCULAR HGB CONC 30.7 g/dL (33.0-37.0); RBC 3.7 Mil/uL (3.80-5.20); RED CELL DISTRIBUTION WIDTH 20.7 % (11.5-14.5); WHITE BLOOD COUNT 9.5 K/uL (4.8-10.8)
[2018-01-13 06:41] LABS: CALCIUM 9.1 mg/dL (8.4-10.2)
[2018-01-13] MEDS: Insulin Lispro (humaLOG) 100 Units/ml Inj SC SCH ×4 (06:57→21:40)
--- NOTE | 2018-01-13 08:26 | CP.PCM.PN ---
Subjective - Date & Time of Evaluation Date of Evaluation: 01/13/18 Time of Evaluation: 08:16 - Subjective Subjective: Chest x-ray shows right pleural effusion (moderate), but I am less sure that there is patchy left basal infiltrates. Clinically there is little to support a diagnosis of left lower lobe pneumonia, but this can be followed closely. I would like to start some diuretic medication on Monday after her current chemo is finished. Initial attempt would be a lower dose of loop diuretic to start and adjust as required. Objective - Vital Signs/Intake and Output Vital Signs (last 24 hours): Temp Pulse Resp BP Pulse Ox 97.6 F 65 18 159/58 H 95 01/13/18 07:41 01/13/18 07:41 01/13/18 07:41 01/13/18 07:41 01/13/18 07:41 - Medications Medications: Current Medications Acetaminophen (Tylenol 325mg Tab) 650 mg PO Q6 PRN PRN Reason: Fever >100.4 F Acetaminophen (Tylenol 650 Mg Supp) 650 mg [place] Q6 PRN PRN Reason: Fever >100.4 F Atorvastatin Calcium (Lipitor) 10 mg PO HS [facility] Last Admin: 01/12/18 21:27 Dose: 10 mg Benzonatate (Tessalon Perles) 200 mg PO TID PRN PRN Reason: Cough Last Admin: 01/13/18 06:59 Dose: 200 mg Cholecalciferol (Vitamin D) 1,000 intlu PO DAILY [facility] Last Admin: 01/12/18 09:20 Dose: 1,000 intlu Dextrose (Dextrose 50% Inj) 0 ml IV STAT PRN; Protocol PRN Reason: Hypoglycemia Protocol Dextrose (Glutose 15) 0 gm PO ONCE PRN; Protocol PRN Reason: Hypoglycemia Protocol Digoxin (Digoxin) 0.125 mg PO DAILY [facility] Last Admin: 01/12/18 09:21 Dose: 0.125 mg Dimethicone (Proshield Plus Skin Protectant) 1 applic TOP Q8 PRN PRN Reason: Rash Docusate Sodium (Colace) 100 mg PO BID [facility] Last Admin: 01/12/18 16:31 Dose: Not Given Emollient Ointment (Vaseline Oint) 1 pkt TOP BID [facility] Last Admin: 01/12/18 16:32 Dose: 1 pkt Epoetin Rolo (Procrit) 40,000 unit SC WED [facility] Glucagon (Glucagen Diagnostic Kit) 0 mg IM STAT PRN; Protocol PRN Reason: Hypoglycemia Protocol Guaifenesin (Mucinex [place]) 600 mg PO Q12 [facility] Last Admin: 01/12/18 21:27 Dose: 600 mg Sodium Chloride (Sodium Chloride 0.9%) 500 mls @ 70 mls/hr IV .Q7H9M [facility] Last Admin: 01/11/18 01:18 Dose: Not Given Azacitidine 160 mg/ CHEMO IV 0 mls @ 0 mls/hr SC DAILY [facility] Stop: 01/14/18 13:01 Last Admin: 01/12/18 11:09 Dose: 160 mls/hr Dextrose/Sodium Chloride (Dextrose 5%/0.45% Ns 1000 Ml) 1,000 mls @ 80 mls/hr IV .[id number] [facility] Stop: 01/13/18 15:47 Last Admin: 01/13/18 05:30 Dose: 80 mls/hr Insulin Human Lispro (Humalog) 0 units SC ACHS [facility]; Protocol Last Admin: 01/13/18 06:57 Dose: 1 unit Ipratropium [place] (Atrovent) 0.5 mg IH RQID [facility] Last Admin: 01/12/18 19:09 Dose: 0.5 mg Lactobacillus Acidophilus (Bacid Acidophilus) 1 cap PO BID [facility] Last Admin: 01/12/18 16:31 Dose: Not Given Levalbuterol HCl (Xopenex) 0.63 mg INH RQ4 PRN PRN Reason: Shortness of Breath Last Admin: 01/13/18 06:01 Dose: 0.63 mg Levothyroxine Sodium (Synthroid) 75 mcg PO DAILY@0630 [facility] Last Admin: 01/13/18 05:45 Dose: 75 mcg Magnesium Oxide (Mag-Ox) 400 mg PO BID [facility] Last Admin: 01/12/18 16:32 Dose: Not Given Metoprolol Tartrate (Lopressor) 50 mg PO Q12 [facility] Last Admin: 01/12/18 21:25 Dose: 50 mg Mirtazapine (Remeron) 7.5 mg PO HS [facility] Last Admin: 01/12/18 21:26 Dose: 7.5 mg Multivitamins/Minerals (Therapeutic-M Tab) 1 tab PO DAILY [facility] Last Admin: 01/12/18 09:21 Dose: 1 tab Ondansetron HCl (Zofran Inj) 4 mg IVP Q6 PRN PRN Reason: Nausea/Vomiting Pantoprazole Sodium (Protonix Ec Tab) 40 mg PO DAILY [facility] Last Admin: 01/12/18 09:21 Dose: 40 mg - Labs Labs: 01/13/18 05:30 01/13/18 05:30 Assessment and Plan (1) B-cell lymphoma Status: Chronic (2) Chronic kidney disease (CKD) Status: Chronic (3) 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
[2018-01-13] MEDS: Ipratropium 0.02% Inhal Soln (0.5 mg/2.5 ml) UD IH SCH ×4 (08:40→19:41)
[2018-01-13] MEDS: Pantoprazole 40 mg EC Tab PO SCH (09:06)
[2018-01-13] MEDS: Lactobacillus Acidophilus 500 MU Cap PO SCH ×2 (09:06→16:03)
[2018-01-13] MEDS: Digoxin 125 mcg (0.125 mg) Tab PO SCH (09:06)
[2018-01-13] MEDS: guaiFENesin 600 mg ER Tab PO SCH ×2 (09:08→21:42)
[2018-01-13] MEDS: Multivitamin With Minerals Tab PO SCH (09:08)
[2018-01-13] MEDS: Cholecalciferol 1,000 INTLU TAB PO SCH (09:08)
[2018-01-13] MEDS: Petrolatum UD PAK TOP SCH ×2 (09:09→16:04)
[2018-01-13] MEDS: Magnesium Oxide 400 mg Tab UD PO SCH ×2 (09:09→16:04)
--- NOTE | 2018-01-13 10:28 | CP.PCM.PN ---
Subjective - Date & Time of Evaluation Date of Evaluation: 01/13/18 Time of Evaluation: 10:25 - Subjective Subjective: Nephrology Consultation Note Assessment: Stable mild NICOLE stable Hyponatremia likely due to CHF and some contribution by elevated ADH" resolved Hypokalemia, hypomagnesemia hypothyroidism Diabetic chronic Kidney Disease (E11.22) Hypertensive Chronic Kidney Disease (I12.9) Chronic Kidney Disease (N18.2) Stage 2 Anemia thrombocytopenia, MDS NHL Plan No acute need for renal replacement therapy at this time. Hypertension control with meds as ordered. Maintain hemodynamics stable. Avoid hypotension. Patient not on ACEI/ARB , added low dose losartan 25 mg/day Monitor Input/Output, daily weights and renal function with basic metabolic panel consider to start with lasix soon. d/c IVF today off tolvaptan for now continue with lytes supplements chemo as per heme/onc Dose meds/antibiotics for reduced GFR. Avoid nephrotoxins/NSAIDs/ iodinated contrast (unless needed emergently) Glycemic control Further work up for as per primary team Thanks for allowing me to participate in care of your patient. Will follow patient with you. Please call if any Qs. Dr Ryland Trevizo Office: [phone] Subjective: Noted events overnight. Patients feels okay. Denies chest pain, palpitation, improved shortness of breath, no leg swelling. All other negative Physical Examination: General Appearance: Comfortable, in no acute respiratory distress, co-operative . Vitals reviewed and noted as below Head; Atraumatic, normocephalic ENT: no ulcers no thrush. Tongue is midline. Oropharynx: no rash or ulcers. EYES: Pupils are equal, round and reactive to light accommodation. Eye muscles and extraocular movement intact. Sclera is anicteric. Neck; supple no lymphadenopathy, no thyromegaly or bruit Lungs: Normal respiratory rate/effort. Breath sounds bilateral decreased at bases with rales Heart: Normal rate. s1s2 normal. No rub or gallop. Extremities: no edema. No varicose veins. chronic venous stasis changes notes Neurological: Patient is alert, awake and oriented to person, place and time. No focal deficit. Strength bilateral appropriate and equal Skin: Warm and dry. Normal turgor. No rash. Palpitation: Normal elasticity for age Abdomen: Abdomen is soft. Bowel sounds +. There is no abdominal tenderness, no guarding/rigidity no organomegaly Psych: limited insight and normal affect/mood MSK: no joint tenderness or swelling. Digits and nails normal, no deformity : kidney or bladder not palpable Labs/imaging reviewed. Past medical history, past surgical history, family history, social history, allergy reviewed and noted as below Family hx: no hx of CKD. Rest non-contributory Objective - Vital Signs/Intake and Output Vital Signs (last 24 hours): Temp Pulse Resp BP Pulse Ox 97.6 F 65 18 159/58 H 95 01/13/18 07:41 01/13/18 09:12 01/13/18 07:41 01/13/18 09:12 01/13/18 07:41 - Medications Medications: Current Medications Acetaminophen (Tylenol 325mg Tab) 650 mg PO Q6 PRN PRN Reason: Fever >100.4 F Acetaminophen (Tylenol 650 Mg Supp) 650 mg [place] Q6 PRN PRN Reason: Fever >100.4 F Atorvastatin Calcium (Lipitor) 10 mg PO HS [facility] Last Admin: 01/12/18 21:27 Dose: 10 mg Benzonatate (Tessalon Perles) 200 mg PO TID PRN PRN Reason: Cough Last Admin: 01/13/18 06:59 Dose: 200 mg Cholecalciferol (Vitamin D) 1,000 intlu PO DAILY [facility] Last Admin: 01/13/18 09:08 Dose: 1,000 intlu Dextrose (Dextrose 50% Inj) 0 ml IV STAT PRN; Protocol PRN Reason: Hypoglycemia Protocol Dextrose (Glutose 15) 0 gm PO ONCE PRN; Protocol PRN Reason: Hypoglycemia Protocol Digoxin (Digoxin) 0.125 mg PO DAILY [facility] Last Admin: 01/13/18 09:06 Dose: 0.125 mg Dimethicone (Proshield Plus Skin Protectant) 1 applic TOP Q8 PRN PRN Reason: Rash Docusate Sodium (Colace) 100 mg PO BID [facility] Last Admin: 01/13/18 09:06 Dose: 100 mg Emollient Ointment (Vaseline Oint) 1 pkt TOP BID [facility] Last Admin: 01/13/18 09:09 Dose: 1 pkt Epoetin [place] (Procrit) 40,000 unit SC WED [facility] Glucagon (Glucagen Diagnostic Kit) 0 mg IM STAT PRN; Protocol PRN Reason: Hypoglycemia Protocol Granisetron HCl (Kytril) 1 mg PO ONCE ONE Stop: 01/13/18 11:01 Granisetron HCl (Kytril) 1 mg PO ONCE ONE Stop: 01/14/18 08:01 Guaifenesin (Mucinex [place]) 600 mg PO Q12 [facility] Last Admin: 01/13/18 09:08 Dose: 600 mg Sodium Chloride (Sodium Chloride 0.9%) 500 mls @ 70 mls/hr IV .Q7H9M [facility] Last Admin: 01/11/18 01:18 Dose: Not Given Azacitidine 160 mg/ CHEMO IV 0 mls @ 0 mls/hr SC DAILY [facility] Stop: 01/14/18 13:01 Last Admin: 01/12/18 11:09 Dose: 160 mls/hr Insulin Human Lispro (Humalog) 0 units SC ACHS [facility]; Protocol Last Admin: 01/13/18 06:57 Dose: 1 unit Ipratropium [place] (Atrovent) 0.5 mg IH RQID [facility] Last Admin: 01/13/18 08:40 Dose: 0.5 mg Lactobacillus Acidophilus (Bacid Acidophilus) 1 cap PO BID [facility] Last Admin: 01/13/18 09:06 Dose: 1 cap Levalbuterol HCl (Xopenex) 0.63 mg INH RQ4 PRN PRN Reason: Shortness of Breath Last Admin: 01/13/18 06:01 Dose: 0.63 mg Levothyroxine Sodium (Synthroid) 75 mcg PO DAILY@0630 [facility] Last Admin: 01/13/18 05:45 Dose: 75 mcg Magnesium Oxide (Mag-Ox) 400 mg PO BID [facility] Last Admin: 01/13/18 09:09 Dose: 400 mg Metoprolol Tartrate (Lopressor) 50 mg PO Q12 [facility] Last Admin: 01/13/18 09:12 Dose: 50 mg Mirtazapine (Remeron) 7.5 mg PO HS [facility] Last Admin: 01/12/18 21:26 Dose: 7.5 mg Multivitamins/Minerals (Therapeutic-M Tab) 1 tab PO DAILY [facility] Last Admin: 01/13/18 09:08 Dose: 1 tab Ondansetron HCl (Zofran Inj) 4 mg IVP Q6 PRN PRN Reason: Nausea/Vomiting Pantoprazole Sodium (Protonix Ec Tab) 40 mg PO DAILY [facility] Last Admin: 01/13/18 09:06 Dose: 40 mg - Labs Labs: 01/13/18 05:30 01/13/18 05:30
[2018-01-13] MEDS: AZACITIDINE SC SCH (11:00)
[2018-01-13] MEDS: CHEMO SC SCH (11:00)
--- NOTE | 2018-01-13 15:34 | CP.PCM.PN ---
Subjective - Date & Time of Evaluation Date of Evaluation: 01/13/18 Time of Evaluation: 14:00 - Subjective Subjective: Patient seen and examined bedside . Chronically ill female , frail lying in bed in NAD. Apperas very weak and tired , sleeping most of the time with poor PO intake and soft voice Denies any pain or discomfort Hemodynamically stable, afebrile Received 4th dose of chemo Platelet trending down to 83 K Objective - Vital Signs/Intake and Output Vital Signs (last 24 hours): Temp Pulse Resp BP Pulse Ox 97.6 F 70 18 164/70 H 95 01/13/18 07:41 01/13/18 12:02 01/13/18 07:41 01/13/18 12:02 01/13/18 07:41 - Medications Medications: Current Medications Acetaminophen (Tylenol 325mg Tab) 650 mg PO Q6 PRN PRN Reason: Fever >100.4 F Acetaminophen (Tylenol 650 Mg Supp) 650 mg [place] Q6 PRN PRN Reason: Fever >100.4 F Atorvastatin Calcium (Lipitor) 10 mg PO HS [facility] Last Admin: 01/12/18 21:27 Dose: 10 mg Benzonatate (Tessalon Perles) 200 mg PO TID PRN PRN Reason: Cough Last Admin: 01/13/18 06:59 Dose: 200 mg Cholecalciferol (Vitamin D) 1,000 intlu PO DAILY [facility] Last Admin: 01/13/18 09:08 Dose: 1,000 intlu Dextrose (Dextrose 50% Inj) 0 ml IV STAT PRN; Protocol PRN Reason: Hypoglycemia Protocol Dextrose (Glutose 15) 0 gm PO ONCE PRN; Protocol PRN Reason: Hypoglycemia Protocol Digoxin (Digoxin) 0.125 mg PO DAILY [facility] Last Admin: 01/13/18 09:06 Dose: 0.125 mg Dimethicone (Proshield Plus Skin Protectant) 1 applic TOP Q8 PRN PRN Reason: Rash Docusate Sodium (Colace) 100 mg PO BID [facility] Last Admin: 01/13/18 09:06 Dose: 100 mg Emollient Ointment (Vaseline Oint) 1 pkt TOP BID [facility] Last Admin: 01/13/18 09:09 Dose: 1 pkt Epoetin Rolo (Procrit) 40,000 unit SC WED [facility] Glucagon (Glucagen Diagnostic Kit) 0 mg IM STAT PRN; Protocol PRN Reason: Hypoglycemia Protocol Granisetron HCl (Kytril) 1 mg PO ONCE ONE Stop: 01/14/18 08:01 Guaifenesin (Mucinex La) 600 mg PO Q12 [facility] Last Admin: 01/13/18 09:08 Dose: 600 mg Sodium Chloride (Sodium Chloride 0.9%) 500 mls @ 70 mls/hr IV .Q7H9M [facility] Last Admin: 01/11/18 01:18 Dose: Not Given Azacitidine 160 mg/ CHEMO IV 0 mls @ 0 mls/hr SC DAILY [facility] Stop: 01/14/18 13:01 Last Admin: 01/13/18 11:00 Dose: 160 mls/hr Insulin Human Lispro (Humalog) 0 units SC ACHS [facility]; Protocol Last Admin: 01/13/18 12:01 Dose: 1 unit Ipratropium [place] (Atrovent) 0.5 mg IH RQID [facility] Last Admin: 01/13/18 11:41 Dose: 0.5 mg Lactobacillus Acidophilus (Bacid Acidophilus) 1 cap PO BID [facility] Last Admin: 01/13/18 09:06 Dose: 1 cap Levalbuterol HCl (Xopenex) 0.63 mg INH RQ4 PRN PRN Reason: Shortness of Breath Last Admin: 01/13/18 06:01 Dose: 0.63 mg Levothyroxine Sodium (Synthroid) 75 mcg PO DAILY@0630 [facility] Last Admin: 01/13/18 05:45 Dose: 75 mcg Losartan Potassium (Cozaar) 25 mg PO DAILY [facility] Last Admin: 01/13/18 12:02 Dose: 25 mg Magnesium Oxide (Mag-Ox) 400 mg PO BID [facility] Last Admin: 01/13/18 09:09 Dose: 400 mg Metoprolol Tartrate (Lopressor) 50 mg PO Q12 [facility] Last Admin: 01/13/18 09:12 Dose: 50 mg Mirtazapine (Remeron) 7.5 mg PO HS [facility] Last Admin: 01/12/18 21:26 Dose: 7.5 mg Multivitamins/Minerals (Therapeutic-M Tab) 1 tab PO DAILY [facility] Last Admin: 01/13/18 09:08 Dose: 1 tab Ondansetron HCl (Zofran Inj) 4 mg IVP Q6 PRN PRN Reason: Nausea/Vomiting Pantoprazole Sodium (Protonix Ec Tab) 40 mg PO DAILY [facility] Last Admin: 01/13/18 09:06 Dose: 40 mg - Labs Labs: 01/13/18 05:30 01/13/18 05:30 - Constitutional Appears: Chronically Ill, Other (frail ) - Head Exam Head Exam: ATRAUMATIC, NORMOCEPHALIC - Eye Exam Eye Exam: PERRL Pupil Exam: NORMAL ACCOMODATION - ENT Exam ENT Exam: Mucous Membranes Moist, Normal Exam - Neck Exam Neck Exam: Full ROM, Normal Inspection - Respiratory Exam Respiratory Exam: Clear to Ausculation Bilateral, Rales (bibasilar ), NORMAL BREATHING PATTERN. absent: Respiratory Distress - Cardiovascular Exam Cardiovascular Exam: Irregular Rhythm, RRR, +S1, +S2. absent: JVD - GI/Abdominal Exam GI & Abdominal Exam: Soft, Normal Bowel Sounds. absent: Distended, Guarding, Rebound - Rectal Exam Rectal Exam: Deferred - Extremities Exam Extremities Exam: Normal Inspection, Pedal Edema (1 +) - Back Exam Back Exam: NORMAL INSPECTION - Neurological Exam Neurological Exam: Alert, Awake, CN II-XII Intact - Psychiatric Exam Psychiatric exam: Flat Affect - Skin Skin Exam: Dry, Pallor, Warm Assessment and Plan - Assessment and Plan (Free Text) Assessment: 77-year-old woman with a past medical history of HTN, CAD s/p CABG, atrial fibrillation (not on anticoagulation due to thrombocytopenia), lymphoma, MDS on chemo with pancytopenia post chemotherapy , with hyponatremia secondary to SIADH and hypocalcemic has been admitted for chemotherapy infusion. Oncology on consult . Receiving Chemotherapy 1. B-cell lymphoma / MDS (myelodysplastic syndrome) admitted for chemotherapy Dr De Dios on hematology/oncology consult Today received 4th dose of Azacitidine Plt dropping to 83 K today . Continue CBC monitoring Granix given today 2. history of Pancytopenia sec to Chemotherapy monitor closely cbc 3. Chronic A-fib on Metoprolol 75mg PO BID. no anticoagulation due to thrombocytopenia 4. COPD chronic continue Atrovent and Xopenex pulmonary consult with Dr. Vazquez appreciated 5. 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 Nephro on consult Discontinued Tovalptan 6. Hypothyroid Levothyroxine 75 mcg daily 7. CKD stage III stable 8. Hypertension / CAD Resumed home meds controlled
[2018-01-14 07:25] LABS: CALCIUM 8.6 mg/dL (8.4-10.2)
[2018-01-14 07:34] LABS: RBC 3.61 Mil/uL (3.80-5.20); WHITE BLOOD COUNT 11.2 K/uL (4.8-10.8)
[2018-01-14 07:35] LABS: HEMOGLOBIN 10.2 g/dL (12.0-16.0); MEAN CORPUSCULAR HEMOGLOBIN 28.4 pg (27.0-31.0); MEAN CORPUSCULAR HGB CONC 30.8 g/dL (33.0-37.0); RED CELL DISTRIBUTION WIDTH 20.4 % (11.5-14.5)
[2018-01-14] MEDS: Ipratropium 0.02% Inhal Soln (0.5 mg/2.5 ml) UD IH SCH ×4 (07:45→19:34)
[2018-01-14] MEDS: Insulin Lispro (humaLOG) 100 Units/ml Inj SC SCH ×4 (07:46→22:36)
[2018-01-14] MEDS: AZACITIDINE SC SCH (08:26)
[2018-01-14] MEDS: CHEMO SC SCH (08:26)
[2018-01-14] MEDS: Digoxin 125 mcg (0.125 mg) Tab PO SCH (08:35)
[2018-01-14] MEDS: Lactobacillus Acidophilus 500 MU Cap PO SCH ×2 (08:38→16:13)
[2018-01-14] MEDS: Magnesium Oxide 400 mg Tab UD PO SCH ×2 (08:38→16:14)
[2018-01-14] MEDS: Multivitamin With Minerals Tab PO SCH (08:39)
[2018-01-14] MEDS: guaiFENesin 600 mg ER Tab PO SCH ×2 (08:39→21:01)
[2018-01-14] MEDS: Pantoprazole 40 mg EC Tab PO SCH (08:39)
[2018-01-14] MEDS: Cholecalciferol 1,000 INTLU TAB PO SCH (08:40)
[2018-01-14] MEDS: Petrolatum UD PAK TOP SCH ×2 (08:40→16:14)
[2018-01-14] MEDS: Levothyroxine 75 MCG TAB PO SCH (08:45)
--- NOTE | 2018-01-14 08:51 | CP.PCM.PN ---
Addendum entered by Malu Berrios MD 01/14/18 18:58: Surrogate Decision maker - daughter Leanna Original Note: <MyrnapinkycoraSara nascimento - Last Filed: 01/14/18 10:51> Subjective - Date & Time of Evaluation Date of Evaluation: 01/14/18 Time of Evaluation: 09:10 - Subjective Subjective: Patient seen and examined at bedside. She is in no acute distress but is very tired and can barely speak as she gets exhausted easily. Poor PO intake but denies any active complaints at this time. Objective - Vital Signs/Intake and Output Vital Signs (last 24 hours): Temp Pulse Resp BP Pulse Ox 97.8 F 62 18 183/65 H 100 01/14/18 08:21 01/14/18 08:21 01/14/18 08:21 01/14/18 08:21 01/14/18 08:21 - Medications Medications: Current Medications Acetaminophen (Tylenol 325mg Tab) 650 mg PO Q6 PRN PRN Reason: Fever >100.4 F Acetaminophen (Tylenol 650 Mg Supp) 650 mg [place] Q6 PRN PRN Reason: Fever >100.4 F Atorvastatin Calcium (Lipitor) 10 mg PO HS [facility] Last Admin: 01/13/18 21:42 Dose: 10 mg Benzonatate (Tessalon Perles) 200 mg PO TID PRN PRN Reason: Cough Last Admin: 01/13/18 16:03 Dose: 200 mg Cholecalciferol (Vitamin D) 1,000 intlu PO DAILY [facility] Last Admin: 01/14/18 08:40 Dose: 1,000 intlu Dextrose (Dextrose 50% Inj) 0 ml IV STAT PRN; Protocol PRN Reason: Hypoglycemia Protocol Dextrose (Glutose 15) 0 gm PO ONCE PRN; Protocol PRN Reason: Hypoglycemia Protocol Digoxin (Digoxin) 0.125 mg PO DAILY [facility] Last Admin: 01/14/18 08:35 Dose: 0.125 mg Dimethicone (Proshield Plus Skin Protectant) 1 applic TOP Q8 PRN PRN Reason: Rash Docusate Sodium (Colace) 100 mg PO BID [facility] Last Admin: 01/14/18 08:34 Dose: 100 mg Emollient Ointment (Vaseline Oint) 1 pkt TOP BID [facility] Last Admin: 01/14/18 08:40 Dose: 1 pkt Epoetin Rolo (Procrit) 40,000 unit SC WED [facility] Glucagon (Glucagen Diagnostic Kit) 0 mg IM STAT PRN; Protocol PRN Reason: Hypoglycemia Protocol Guaifenesin (Mucinex La) 600 mg PO Q12 [facility] Last Admin: 01/14/18 08:39 Dose: 600 mg Sodium Chloride (Sodium Chloride 0.9%) 500 mls @ 70 mls/hr IV .Q7H9M [facility] Last Admin: 01/11/18 01:18 Dose: Not Given Azacitidine 160 mg/ CHEMO IV 0 mls @ 0 mls/hr SC DAILY [facility] Stop: 01/14/18 13:01 Last Admin: 01/14/18 08:26 Dose: 160 mls/hr Insulin Human Lispro (Humalog) 0 units SC ACHS [facility]; Protocol Last Admin: 01/14/18 07:46 Dose: Not Given Ipratropium [place] (Atrovent) 0.5 mg IH RQID [facility] Last Admin: 01/14/18 07:45 Dose: 0.5 mg Lactobacillus Acidophilus (Bacid Acidophilus) 1 cap PO BID [facility] Last Admin: 01/14/18 08:38 Dose: 1 cap Levalbuterol HCl (Xopenex) 0.63 mg INH RQ4 PRN PRN Reason: Shortness of Breath Last Admin: 01/13/18 06:01 Dose: 0.63 mg Levothyroxine Sodium (Synthroid) 75 mcg PO DAILY@0630 [facility] Last Admin: 01/14/18 08:45 Dose: 75 mcg Losartan Potassium (Cozaar) 25 mg PO DAILY [facility] Last Admin: 01/14/18 08:35 Dose: 25 mg Magnesium Oxide (Mag-Ox) 400 mg PO BID [facility] Last Admin: 01/14/18 08:38 Dose: 400 mg Metoprolol Tartrate (Lopressor) 50 mg PO Q12 [facility] Last Admin: 01/14/18 08:44 Dose: 50 mg Mirtazapine (Remeron) 7.5 mg PO HS [facility] Last Admin: 01/13/18 21:42 Dose: 7.5 mg Multivitamins/Minerals (Therapeutic-M Tab) 1 tab PO DAILY [facility] Last Admin: 01/14/18 08:39 Dose: 1 tab Ondansetron HCl (Zofran Inj) 4 mg IVP Q6 PRN PRN Reason: Nausea/Vomiting Pantoprazole Sodium (Protonix Ec Tab) 40 mg PO DAILY [facility] Last Admin: 01/14/18 08:39 Dose: 40 mg - Labs Labs: 01/14/18 05:30 01/14/18 05:30 - Constitutional Appears: No Acute Distress, Older Than Stated Age, Chronically Ill - ENT Exam ENT Exam: Mucous Membranes Moist - Cardiovascular Exam Cardiovascular Exam: Irregular Rhythm, +S1, +S2. absent: JVD, Rubs, +S4 - GI/Abdominal Exam GI & Abdominal Exam: Distended, Soft, Normal Bowel Sounds. absent: Firm, Guarding, Tenderness - Rectal Exam Rectal Exam: Deferred - Extremities Exam Extremities Exam: Normal Capillary Refill (+2 dorsalis pedis bilaterally. ), Pedal Edema. absent: Calf Tenderness, Joint Swelling, Tenderness (chronic bilateral skin changes. ) - Skin Skin Exam: Dry, Intact, Normal Color, Warm Assessment and Plan - Assessment and Plan (Free Text) Assessment: 77-year-old woman with a past medical history of HTN, CAD s/p CABG, atrial fibrillation (not on anticoagulation due to thrombocytopenia), lymphoma, MDS on chemo with pancytopenia post chemotherapy , with hyponatremia secondary to SIADH and hypocalcemic has been admitted for chemotherapy infusion. Plan: 1. B-cell lymphoma / MDS (myelodysplastic syndrome) admitted for chemotherapy Dr De Dios on hematology/oncology consult Received 4th dose of Azacitidine yesterday, 01/13. Plt dropping to 74 K today . Continue CBC monitoring Granix given today 2. history of Pancytopenia sec to Chemotherapy monitor closely cbc 3. Chronic A-fib on Metoprolol 75mg PO BID. no anticoagulation due to thrombocytopenia 4. COPD chronic continue Atrovent and Xopenex pulmonary consult with Dr. Vazquez appreciated 5. 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 Nephro on consult Discontinued Tovalptan 6. Hypothyroid Levothyroxine 75 mcg daily 7. CKD stage III stable 8. Hypertension / CAD Resumed home meds controlled <Malu Berrios - Last Filed: 01/14/18 16:43> Objective - Vital Signs/Intake and Output Vital Signs (last 24 hours): Temp Pulse Resp BP Pulse Ox 98.6 F 68 18 165/61 H 100 01/14/18 15:57 01/14/18 15:57 01/14/18 15:57 01/14/18 15:57 01/14/18 15:57 - Medications Medications: Current Medications Acetaminophen (Tylenol 325mg Tab) 650 mg PO Q6 PRN PRN Reason: Fever >100.4 F Acetaminophen (Tylenol 650 Mg Supp) 650 mg [place] Q6 PRN PRN Reason: Fever >100.4 F Atorvastatin Calcium (Lipitor) 10 mg PO HS [facility] Last Admin: 01/13/18 21:42 Dose: 10 mg Benzonatate (Tessalon Perles) 200 mg PO TID PRN PRN Reason: Cough Last Admin: 01/13/18 16:03 Dose: 200 mg Cholecalciferol (Vitamin D) 1,000 intlu PO DAILY [facility] Last Admin: 01/14/18 08:40 Dose: 1,000 intlu Dextrose (Dextrose 50% Inj) 0 ml IV STAT PRN; Protocol PRN Reason: Hypoglycemia Protocol Dextrose (Glutose 15) 0 gm PO ONCE PRN; Protocol PRN Reason: Hypoglycemia Protocol Digoxin (Digoxin) 0.125 mg PO DAILY [facility] Last Admin: 01/14/18 08:35 Dose: 0.125 mg Dimethicone (Proshield Plus Skin Protectant) 1 applic TOP Q8 PRN PRN Reason: Rash Docusate Sodium (Colace) 100 mg PO BID [facility] Last Admin: 01/14/18 16:13 Dose: 100 mg Emollient Ointment (Vaseline Oint) 1 pkt TOP BID [facility] Last Admin: 01/14/18 16:14 Dose: 1 pkt Epoetin [place] (Procrit) 40,000 unit SC WED [facility] Glucagon (Glucagen Diagnostic Kit) 0 mg IM STAT PRN; Protocol PRN Reason: Hypoglycemia Protocol Guaifenesin (Mucinex [place]) 600 mg PO Q12 [facility] Last Admin: 01/14/18 08:39 Dose: 600 mg Sodium Chloride (Sodium Chloride 0.9%) 500 mls @ 70 mls/hr IV .Q7H9M [facility] Last Admin: 01/11/18 01:18 Dose: Not Given Insulin Human Lispro (Humalog) 0 units SC ACHS [facility]; Protocol Last Admin: 01/14/18 16:17 Dose: 2 unit Ipratropium [place] (Atrovent) 0.5 mg IH RQID [facility] Last Admin: 01/14/18 15:37 Dose: 0.5 mg Lactobacillus Acidophilus (Bacid Acidophilus) 1 cap PO BID [facility] Last Admin: 01/14/18 16:13 Dose: 1 cap Levalbuterol HCl (Xopenex) 0.63 mg INH RQ4 PRN PRN Reason: Shortness of Breath Last Admin: 01/14/18 11:35 Dose: 0.63 mg Levothyroxine Sodium (Synthroid) 75 mcg PO DAILY@0630 [facility] Last Admin: 01/14/18 08:45 Dose: 75 mcg Losartan Potassium (Cozaar) 50 mg PO DAILY [facility] Last Admin: 01/14/18 12:13 Dose: 50 mg Magnesium Oxide (Mag-Ox) 400 mg PO BID [facility] Last Admin: 01/14/18 16:14 Dose: 400 mg Metoprolol Tartrate (Lopressor) 50 mg PO Q12 [facility] Last Admin: 01/14/18 08:44 Dose: 50 mg Mirtazapine (Remeron) 7.5 mg PO HS [facility] Last Admin: 01/13/18 21:42 Dose: 7.5 mg Multivitamins/Minerals (Therapeutic-M Tab) 1 tab PO DAILY [facility] Last Admin: 01/14/18 08:39 Dose: 1 tab Ondansetron HCl (Zofran Inj) 4 mg IVP Q6 PRN PRN Reason: Nausea/Vomiting Pantoprazole Sodium (Protonix Ec Tab) 40 mg PO DAILY [facility] Last Admin: 01/14/18 08:39 Dose: 40 mg - Labs Labs: 01/14/18 05:30 01/14/18 05:30 Attending/Attestation - Attestation I have personally seen and examined this patient.: Yes I have fully participated in the care of the patient.: Yes I have reviewed all pertinent clinical information, including history, physical exam and plan: Yes
[2018-01-14] MEDS: Levalbuterol 0.63 MG/3 ML Inhal Soln UD INH PRN ×2 (11:35→19:34)
--- NOTE | 2018-01-14 12:10 | CP.PCM.PN ---
Subjective - Date & Time of Evaluation Date of Evaluation: 01/14/18 Time of Evaluation: 12:09 - Subjective Subjective: Nephrology Consultation Note Assessment: Stable mild NICOLE stable Hyponatremia likely due to CHF and some contribution by elevated ADH" resolved Hypokalemia, hypomagnesemia hypothyroidism Diabetic chronic Kidney Disease (E11.22) Hypertensive Chronic Kidney Disease (I12.9) Chronic Kidney Disease (N18.2) Stage 2 Anemia thrombocytopenia, MDS NHL Plan No acute need for renal replacement therapy at this time. Hypertension control with meds as ordered. Maintain hemodynamics stable. Avoid hypotension. Patient not on ACEI/ARB , Increased losartan 50 mg/day Monitor Input/Output, daily weights and renal function with basic metabolic driscoll el consider to start with lasix soon. off tolvaptan for now continue with lytes supplements chemo as per heme/onc Dose meds/antibiotics for reduced GFR. Avoid nephrotoxins/NSAIDs/ iodinated contrast (unless needed emergently) Glycemic control Further work up for as per primary team Thanks for allowing me to participate in care of your patient. Will follow patient with you. Please call if any Qs. Dr Ryland Trevizo Office: [phone] Subjective: Noted events overnight. Patients not much communicative. Physical Examination: General Appearance: Comfortable, in no acute respiratory distress, co-operative . Vitals reviewed and noted as below Head; Atraumatic, normocephalic ENT: no ulcers no thrush. Tongue is midline. Oropharynx: no rash or ulcers. EYES: Pupils are equal, round and reactive to light accommodation. Eye muscles and extraocular movement intact. Sclera is anicteric. Neck; supple no lymphadenopathy, no thyromegaly or bruit Lungs: Normal respiratory rate/effort. Breath sounds bilateral decreased at bases with rales Heart: Normal rate. s1s2 normal. No rub or gallop. Extremities: no edema. No varicose veins. chronic venous stasis changes notes Neurological: Patient is sleepy. No focal deficit. Strength bilateral appropriate and equal Skin: Warm and dry. Normal turgor. No rash. Palpitation: Normal elasticity for age Abdomen: Abdomen is soft. Bowel sounds +. There is no abdominal tenderness, no guarding/rigidity no organomegaly Psych: limited insight and normal affect/mood MSK: no joint tenderness or swelling. Digits and nails normal, no deformity : kidney or bladder not palpable Labs/imaging reviewed. Past medical history, past surgical history, family history, social history, allergy reviewed and noted as below Family hx: no hx of CKD. Rest non-contributory Objective - Vital Signs/Intake and Output Vital Signs (last 24 hours): Temp Pulse Resp BP Pulse Ox 97.8 F 62 18 183/65 H 100 01/14/18 08:21 01/14/18 08:21 01/14/18 08:21 01/14/18 08:21 01/14/18 08:21 - Medications Medications: Current Medications Acetaminophen (Tylenol 325mg Tab) 650 mg PO Q6 PRN PRN Reason: Fever >100.4 F Acetaminophen (Tylenol 650 Mg Supp) 650 mg [place] Q6 PRN PRN Reason: Fever >100.4 F Atorvastatin Calcium (Lipitor) 10 mg PO HS [facility] Last Admin: 01/13/18 21:42 Dose: 10 mg Benzonatate (Tessalon Perles) 200 mg PO TID PRN PRN Reason: Cough Last Admin: 01/13/18 16:03 Dose: 200 mg Cholecalciferol (Vitamin D) 1,000 intlu PO DAILY [facility] Last Admin: 01/14/18 08:40 Dose: 1,000 intlu Dextrose (Dextrose 50% Inj) 0 ml IV STAT PRN; Protocol PRN Reason: Hypoglycemia Protocol Dextrose (Glutose 15) 0 gm PO ONCE PRN; Protocol PRN Reason: Hypoglycemia Protocol Digoxin (Digoxin) 0.125 mg PO DAILY [facility] Last Admin: 01/14/18 08:35 Dose: 0.125 mg Dimethicone (Proshield Plus Skin Protectant) 1 applic TOP Q8 PRN PRN Reason: Rash Docusate Sodium (Colace) 100 mg PO BID [facility] Last Admin: 01/14/18 08:34 Dose: 100 mg Emollient Ointment (Vaseline Oint) 1 pkt TOP BID [facility] Last Admin: 01/14/18 08:40 Dose: 1 pkt Epoetin [place] (Procrit) 40,000 unit SC WED [facility] Glucagon (Glucagen Diagnostic Kit) 0 mg IM STAT PRN; Protocol PRN Reason: Hypoglycemia Protocol Guaifenesin (Mucinex [place]) 600 mg PO Q12 [facility] Last Admin: 01/14/18 08:39 Dose: 600 mg Sodium Chloride (Sodium Chloride 0.9%) 500 mls @ 70 mls/hr IV .Q7H9M [facility] Last Admin: 01/11/18 01:18 Dose: Not Given Azacitidine 160 mg/ CHEMO IV 0 mls @ 0 mls/hr SC DAILY [facility] Stop: 01/14/18 13:01 Last Admin: 01/14/18 08:26 Dose: 160 mls/hr Insulin Human Lispro (Humalog) 0 units SC ACHS [facility]; Protocol Last Admin: 01/14/18 11:20 Dose: Not Given Ipratropium [place] (Atrovent) 0.5 mg IH RQID [facility] Last Admin: 01/14/18 11:35 Dose: 0.5 mg Lactobacillus Acidophilus (Bacid Acidophilus) 1 cap PO BID [facility] Last Admin: 01/14/18 08:38 Dose: 1 cap Levalbuterol HCl (Xopenex) 0.63 mg INH RQ4 PRN PRN Reason: Shortness of Breath Last Admin: 01/14/18 11:35 Dose: 0.63 mg Levothyroxine Sodium (Synthroid) 75 mcg PO DAILY@0630 [facility] Last Admin: 01/14/18 08:45 Dose: 75 mcg Losartan Potassium (Cozaar) 50 mg PO DAILY [facility] Magnesium Oxide (Mag-Ox) 400 mg PO BID [facility] Last Admin: 01/14/18 08:38 Dose: 400 mg Metoprolol Tartrate (Lopressor) 50 mg PO Q12 [facility] Last Admin: 01/14/18 08:44 Dose: 50 mg Mirtazapine (Remeron) 7.5 mg PO HS [facility] Last Admin: 01/13/18 21:42 Dose: 7.5 mg Multivitamins/Minerals (Therapeutic-M Tab) 1 tab PO DAILY [facility] Last Admin: 01/14/18 08:39 Dose: 1 tab Ondansetron HCl (Zofran Inj) 4 mg IVP Q6 PRN PRN Reason: Nausea/Vomiting Pantoprazole Sodium (Protonix Ec Tab) 40 mg PO DAILY [facility] Last Admin: 01/14/18 08:39 Dose: 40 mg - Labs Labs: 01/14/18 05:30 01/14/18 05:30
[2018-01-15] MEDS: Levothyroxine 75 MCG TAB PO SCH (05:41)
[2018-01-15 06:14] LABS: BASO % 0.4 % (0.0-2.0); EOS # 0.1 K/uL (0.0-0.7); EOS % 0.6 % (0.0-4.0); HEMOGLOBIN 9.7 g/dL (12.0-16.0); LYMPH % 23.7 % (20.0-40.0); MEAN CELL VOLUME 92.9 fl (81.0-99.0); MEAN CORPUSCULAR HEMOGLOBIN 27.9 pg (27.0-31.0); MEAN PLATELET VOLUME 10.1 fl (7.2-11.7); MONO # 0.6 K/uL (0.0-0.8); NEUT # 8.8 K/uL (1.8-7.0); NEUT % 70.3 % (50.0-75.0); NRBC % 0.1 % (0.0-0.0); RBC 3.49 Mil/uL (3.80-5.20); RED CELL DISTRIBUTION WIDTH 20.1 % (11.5-14.5); WHITE BLOOD COUNT 12.5 K/uL (4.8-10.8)
[2018-01-15 06:50] LABS: ALB/GLOB RATIO 1.1 (1.0-2.1); ALBUMIN 1.9 g/dL (3.5-5.0); CALCIUM 8.8 mg/dL (8.4-10.2)
[2018-01-15] MEDS: Ipratropium 0.02% Inhal Soln (0.5 mg/2.5 ml) UD IH SCH ×2 (07:25→11:55)
[2018-01-15 08:14] VITALS: RESP 18; TEMP 97.6; O2SAT 97
--- NOTE | 2018-01-15 09:57 | CP.PCM.PN ---
Subjective - Date & Time of Evaluation Date of Evaluation: 01/15/18 Time of Evaluation: 09:57 - Subjective Subjective: Seen on morning rounds and the medical unit. She has completed her chemotherapy and plan is for discharge back to subacute rehabilitation. Electrolytes have remained within normal range and renal function is stable. Chest x-ray shows persistence of moderate right pleural effusion but otherwise appears unremarkable. Oxygenation remains stable and there is no apparent nocturnal desaturations recorded. She appears more awake and alert and remains oriented. Her voice, while stronger remains hoarse. The pharynx is pink and the mucous membranes are moist without exudate. The neck is supple and trachea is midline. No dullness to percussion of the anterior thorax. Breath sounds are diminished but present equally in both lungs with the exception of the right base posteriorly. No audible wheezing. Few scattered sonorous rhonchi are heard dependent zones. Occasional dry rales are present in the lower lobes. Heart sounds are distant and the rhythm is irregular. Abdomen is soft and nontender with normal bowel sounds. 1+ dependent edema of the buttocks and thighs, which is a significant improvement from previously. No cyanosis. Plan for discharge to subacute rehabilitation today. We'll continue to monitor right pleural effusion clinically and radiographically. Current medical regimen continues, including ipratropium via nebulizer 4 times daily with levalbuterol used on an as-needed basis only. Objective - Vital Signs/Intake and Output Vital Signs (last 24 hours): Temp Pulse Resp BP Pulse Ox 97.6 F 56 L 18 188/65 H 97 01/15/18 08:13 01/15/18 08:13 01/15/18 08:13 01/15/18 08:13 01/15/18 08:13 Intake and Output: 01/14/18 01/15/18 23:59 11:59 Output Total 400 Balance -400 - Medications Medications: Current Medications Acetaminophen (Tylenol 325mg Tab) 650 mg PO Q6 PRN PRN Reason: Fever >100.4 F Acetaminophen (Tylenol 650 Mg Supp) 650 mg NE Q6 PRN PRN Reason: Fever >100.4 F Atorvastatin Calcium (Lipitor) 10 mg PO HS [facility] Last Admin: 01/14/18 21:01 Dose: 10 mg Benzonatate (Tessalon Perles) 200 mg PO TID PRN PRN Reason: Cough Last Admin: 01/13/18 16:03 Dose: 200 mg Cholecalciferol (Vitamin D) 1,000 intlu PO DAILY [facility] Last Admin: 01/14/18 08:40 Dose: 1,000 intlu Dextrose (Dextrose 50% Inj) 0 ml IV STAT PRN; Protocol PRN Reason: Hypoglycemia Protocol Dextrose (Glutose 15) 0 gm PO ONCE PRN; Protocol PRN Reason: Hypoglycemia Protocol Digoxin (Digoxin) 0.125 mg PO DAILY [facility] Last Admin: 01/14/18 08:35 Dose: 0.125 mg Dimethicone (Proshield Plus Skin Protectant) 1 applic TOP Q8 PRN PRN Reason: Rash Docusate Sodium (Colace) 100 mg PO BID [facility] Last Admin: 01/14/18 16:13 Dose: 100 mg Emollient Ointment (Vaseline Oint) 1 pkt TOP BID [facility] Last Admin: 01/14/18 16:14 Dose: 1 pkt Epoetin Rolo (Procrit) 40,000 unit SC WED [facility] Glucagon (Glucagen Diagnostic Kit) 0 mg IM STAT PRN; Protocol PRN Reason: Hypoglycemia Protocol Guaifenesin (Mucinex La) 600 mg PO Q12 [facility] Last Admin: 01/14/18 21:01 Dose: 600 mg Sodium Chloride (Sodium Chloride 0.9%) 500 mls @ 70 mls/hr IV .Q7H9M [facility] Last Admin: 01/11/18 01:18 Dose: Not Given Insulin Human Lispro (Humalog) 0 units SC ACHS [facility]; Protocol Last Admin: 01/14/18 22:36 Dose: Not Given Ipratropium [place] (Atrovent) 0.5 mg IH RQID [facility] Last Admin: 01/15/18 07:25 Dose: 0.5 mg Lactobacillus Acidophilus (Bacid Acidophilus) 1 cap PO BID [facility] Last Admin: 01/14/18 16:13 Dose: 1 cap Levalbuterol HCl (Xopenex) 0.63 mg INH RQ4 PRN PRN Reason: Shortness of Breath Last Admin: 01/14/18 19:34 Dose: 0.63 mg Levothyroxine Sodium (Synthroid) 75 mcg PO DAILY@0630 [facility] Last Admin: 01/15/18 05:41 Dose: 75 mcg Losartan Potassium (Cozaar) 50 mg PO DAILY [facility] Last Admin: 01/14/18 12:13 Dose: 50 mg Magnesium Oxide (Mag-Ox) 400 mg PO BID [facility] Last Admin: 01/14/18 16:14 Dose: 400 mg Metoprolol Tartrate (Lopressor) 50 mg PO Q12 [facility] Last Admin: 01/14/18 21:01 Dose: 50 mg Mirtazapine (Remeron) 7.5 mg PO HS [facility] Last Admin: 01/14/18 21:01 Dose: 7.5 mg Multivitamins/Minerals (Therapeutic-M Tab) 1 tab PO DAILY [facility] Last Admin: 01/14/18 08:39 Dose: 1 tab Ondansetron HCl (Zofran Inj) 4 mg IVP Q6 PRN PRN Reason: Nausea/Vomiting Pantoprazole Sodium (Protonix Ec Tab) 40 mg PO DAILY [facility] Last Admin: 01/14/18 08:39 Dose: 40 mg - Labs Labs: 01/15/18 05:20 01/15/18 05:20 Assessment and Plan (1) B-cell lymphoma Status: Chronic (2) Chronic kidney disease (CKD) Status: Chronic (3) 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
--- NOTE | 2018-01-15 10:03 | CP.PCM.PN ---
Subjective - Date & Time of Evaluation Date of Evaluation: 01/15/18 Time of Evaluation: 09:45 - Subjective Subjective: Pt feels better. Still not very cooperative re physical therapy. CBC more or less normal. Platelets are still a little low. Vital signs are normal . She finished her chemo yesterday , and will be [facility] back to the [facility]. She will have a Blood test every Monday and Monday and return on February 05 for the next chemotherapy. Objective - Vital Signs/Intake and Output Vital Signs (last 24 hours): Temp Pulse Resp BP Pulse Ox 97.6 F 56 L 18 188/65 H 97 01/15/18 08:13 01/15/18 08:13 01/15/18 08:13 01/15/18 08:13 01/15/18 08:13 - Medications Medications: Current Medications Acetaminophen (Tylenol 325mg Tab) 650 mg PO Q6 PRN PRN Reason: Fever >100.4 F Acetaminophen (Tylenol 650 Mg Supp) 650 mg [place] Q6 PRN PRN Reason: Fever >100.4 F Atorvastatin Calcium (Lipitor) 10 mg PO HS [facility] Last Admin: 01/14/18 21:01 Dose: 10 mg Benzonatate (Tessalon Perles) 200 mg PO TID PRN PRN Reason: Cough Last Admin: 01/13/18 16:03 Dose: 200 mg Cholecalciferol (Vitamin D) 1,000 intlu PO DAILY [facility] Last Admin: 01/14/18 08:40 Dose: 1,000 intlu Dextrose (Dextrose 50% Inj) 0 ml IV STAT PRN; Protocol PRN Reason: Hypoglycemia Protocol Dextrose (Glutose 15) 0 gm PO ONCE PRN; Protocol PRN Reason: Hypoglycemia Protocol Digoxin (Digoxin) 0.125 mg PO DAILY [facility] Last Admin: 01/14/18 08:35 Dose: 0.125 mg Dimethicone (Proshield Plus Skin Protectant) 1 applic TOP Q8 PRN PRN Reason: Rash Docusate Sodium (Colace) 100 mg PO BID [facility] Last Admin: 01/14/18 16:13 Dose: 100 mg Emollient Ointment (Vaseline Oint) 1 pkt TOP BID [facility] Last Admin: 01/14/18 16:14 Dose: 1 pkt Epoetin Rolo (Procrit) 40,000 unit SC WED [facility] Glucagon (Glucagen Diagnostic Kit) 0 mg IM STAT PRN; Protocol PRN Reason: Hypoglycemia Protocol Guaifenesin (Mucinex La) 600 mg PO Q12 [facility] Last Admin: 01/14/18 21:01 Dose: 600 mg Sodium Chloride (Sodium Chloride 0.9%) 500 mls @ 70 mls/hr IV .Q7H9M [facility] Last Admin: 01/11/18 01:18 Dose: Not Given Insulin Human Lispro (Humalog) 0 units SC ACHS [facility]; Protocol Last Admin: 01/14/18 22:36 Dose: Not Given Ipratropium [place] (Atrovent) 0.5 mg IH RQID [facility] Last Admin: 01/15/18 07:25 Dose: 0.5 mg Lactobacillus Acidophilus (Bacid Acidophilus) 1 cap PO BID [facility] Last Admin: 01/14/18 16:13 Dose: 1 cap Levalbuterol HCl (Xopenex) 0.63 mg INH RQ4 PRN PRN Reason: Shortness of Breath Last Admin: 01/14/18 19:34 Dose: 0.63 mg Levothyroxine Sodium (Synthroid) 75 mcg PO DAILY@0630 [facility] Last Admin: 01/15/18 05:41 Dose: 75 mcg Losartan Potassium (Cozaar) 50 mg PO DAILY [facility] Last Admin: 01/14/18 12:13 Dose: 50 mg Magnesium Oxide (Mag-Ox) 400 mg PO BID [facility] Last Admin: 01/14/18 16:14 Dose: 400 mg Metoprolol Tartrate (Lopressor) 50 mg PO Q12 [facility] Last Admin: 01/14/18 21:01 Dose: 50 mg Mirtazapine (Remeron) 7.5 mg PO HS [facility] Last Admin: 01/14/18 21:01 Dose: 7.5 mg Multivitamins/Minerals (Therapeutic-M Tab) 1 tab PO DAILY [facility] Last Admin: 01/14/18 08:39 Dose: 1 tab Ondansetron HCl (Zofran Inj) 4 mg IVP Q6 PRN PRN Reason: Nausea/Vomiting Pantoprazole Sodium (Protonix Ec Tab) 40 mg PO DAILY [facility] Last Admin: 01/14/18 08:39 Dose: 40 mg - Labs Labs: 01/15/18 05:20 01/15/18 05:20
--- NOTE | 2018-01-15 10:19 | CP.PCM.PN ---
Subjective - Date & Time of Evaluation Date of Evaluation: 01/15/18 Time of Evaluation: 10:19 - Subjective Subjective: patient awake and conscious not in acute distress Objective - Vital Signs/Intake and Output Vital Signs (last 24 hours): Temp Pulse Resp BP Pulse Ox 97.6 F 56 L 18 188/65 H 97 01/15/18 08:13 01/15/18 08:13 01/15/18 08:13 01/15/18 08:13 01/15/18 08:13 - Medications Medications: Current Medications Acetaminophen (Tylenol 325mg Tab) 650 mg PO Q6 PRN PRN Reason: Fever >100.4 F Acetaminophen (Tylenol 650 Mg Supp) 650 mg [place] Q6 PRN PRN Reason: Fever >100.4 F Atorvastatin Calcium (Lipitor) 10 mg PO HS [facility] Last Admin: 01/14/18 21:01 Dose: 10 mg Benzonatate (Tessalon Perles) 200 mg PO TID PRN PRN Reason: Cough Last Admin: 01/13/18 16:03 Dose: 200 mg Cholecalciferol (Vitamin D) 1,000 intlu PO DAILY [facility] Last Admin: 01/14/18 08:40 Dose: 1,000 intlu Dextrose (Dextrose 50% Inj) 0 ml IV STAT PRN; Protocol PRN Reason: Hypoglycemia Protocol Dextrose (Glutose 15) 0 gm PO ONCE PRN; Protocol PRN Reason: Hypoglycemia Protocol Digoxin (Digoxin) 0.125 mg PO DAILY [facility] Last Admin: 01/14/18 08:35 Dose: 0.125 mg Dimethicone (Proshield Plus Skin Protectant) 1 applic TOP Q8 PRN PRN Reason: Rash Docusate Sodium (Colace) 100 mg PO BID [facility] Last Admin: 01/14/18 16:13 Dose: 100 mg Emollient Ointment (Vaseline Oint) 1 pkt TOP BID [facility] Last Admin: 01/14/18 16:14 Dose: 1 pkt Epoetin Rolo (Procrit) 40,000 unit SC WED [facility] Glucagon (Glucagen Diagnostic Kit) 0 mg IM STAT PRN; Protocol PRN Reason: Hypoglycemia Protocol Guaifenesin (Mucinex La) 600 mg PO Q12 [facility] Last Admin: 01/14/18 21:01 Dose: 600 mg Sodium Chloride (Sodium Chloride 0.9%) 500 mls @ 70 mls/hr IV .Q7H9M [facility] Last Admin: 01/11/18 01:18 Dose: Not Given Insulin Human Lispro (Humalog) 0 units SC ACHS [facility]; Protocol Last Admin: 01/14/18 22:36 Dose: Not Given Ipratropium [place] (Atrovent) 0.5 mg IH RQID [facility] Last Admin: 01/15/18 07:25 Dose: 0.5 mg Lactobacillus Acidophilus (Bacid Acidophilus) 1 cap PO BID [facility] Last Admin: 01/14/18 16:13 Dose: 1 cap Levalbuterol HCl (Xopenex) 0.63 mg INH RQ4 PRN PRN Reason: Shortness of Breath Last Admin: 01/14/18 19:34 Dose: 0.63 mg Levothyroxine Sodium (Synthroid) 75 mcg PO DAILY@0630 [facility] Last Admin: 01/15/18 05:41 Dose: 75 mcg Losartan Potassium (Cozaar) 50 mg PO DAILY [facility] Last Admin: 01/14/18 12:13 Dose: 50 mg Magnesium Oxide (Mag-Ox) 400 mg PO BID [facility] Last Admin: 01/14/18 16:14 Dose: 400 mg Metoprolol Tartrate (Lopressor) 50 mg PO Q12 [facility] Last Admin: 01/14/18 21:01 Dose: 50 mg Mirtazapine (Remeron) 7.5 mg PO HS [facility] Last Admin: 01/14/18 21:01 Dose: 7.5 mg Multivitamins/Minerals (Therapeutic-M Tab) 1 tab PO DAILY [facility] Last Admin: 01/14/18 08:39 Dose: 1 tab Ondansetron HCl (Zofran Inj) 4 mg IVP Q6 PRN PRN Reason: Nausea/Vomiting Pantoprazole Sodium (Protonix Ec Tab) 40 mg PO DAILY [facility] Last Admin: 01/14/18 08:39 Dose: 40 mg - Labs Labs: 01/15/18 05:20 01/15/18 05:20 - Constitutional Appears: No Acute Distress - Eye Exam Eye Exam: Conjunctival injection - ENT Exam ENT Exam: Mucous Membranes Moist - Respiratory Exam Respiratory Exam: NORMAL BREATHING PATTERN. absent: Chest Wall Tenderness, Rhonchi - Cardiovascular Exam Cardiovascular Exam: absent: Gallop, JVD, Rubs - GI/Abdominal Exam GI & Abdominal Exam: Soft, Normal Bowel Sounds - Extremities Exam Extremities Exam: absent: Calf Tenderness - Back Exam Back Exam: absent: CVA tenderness (L), CVA tenderness (R) - Neurological Exam Neurological Exam: Alert - Psychiatric Exam Psychiatric exam: Normal Affect - Skin Skin Exam: absent: Cyanosis Assessment and Plan (1) Chronic kidney disease, stage III (moderate) Assessment & Plan: chronic kidney disease stage III appears to be stable Serum sodium has been stable without Samsca Metabolic alkalosis has been improving the latest CO2 31 Myeloproliferative syndrome as per hematology on treatment The plan Continue monitoring No need for Samsca at the present Status: Acute
[2018-01-15] MEDS: Insulin Lispro (humaLOG) 100 Units/ml Inj SC SCH ×2 (10:21→13:25)
[2018-01-15] MEDS: Digoxin 125 mcg (0.125 mg) Tab PO SCH (10:22)
[2018-01-15 10:27] VITALS: PULSE 58; PULSE 59
[2018-01-15] MEDS: Pantoprazole 40 mg EC Tab PO SCH (10:30)
[2018-01-15] MEDS: Multivitamin With Minerals Tab PO SCH (10:30)
[2018-01-15] MEDS: Cholecalciferol 1,000 INTLU TAB PO SCH (10:30)
[2018-01-15] MEDS: guaiFENesin 600 mg ER Tab PO SCH (10:31)
[2018-01-15] MEDS: Magnesium Oxide 400 mg Tab UD PO SCH (10:31)
[2018-01-15] MEDS: Lactobacillus Acidophilus 500 MU Cap PO SCH (10:35)
--- NOTE | 2018-01-15 10:53 | CP.PCM.DIS ---
<Ly Verma - Last Filed: 01/15/18 17:19> Provider - Provider Date of Admission: 01/10/18 10:07 Attending physician: Cristian Andrade MD Time Spent in preparation of Discharge (in minutes): 45 Diagnosis - Discharge Diagnosis (1) Chronic kidney disease, stage III (moderate) Status: Chronic (2) Atrial fibrillation Status: Chronic Priority: High (3) B-cell lymphoma Status: Chronic Priority: High (4) Hypothyroid Status: Chronic (5) MDS (myelodysplastic syndrome) Status: Chronic (6) Pancytopenia Status: Chronic Priority: High (7) Hyponatremia Status: Resolved Hospital Course - Lab Results Lab Results: Most Recent Lab Values WBC 12.5 K/uL (4.8-10.8) H 01/15/18 05:20 RBC 3.49 Mil/uL (3.80-5.20) L 01/15/18 05:20 Hgb 9.7 g/dL (12.0-16.0) L 01/15/18 05:20 Hct 32.4 % (34.0-47.0) L 01/15/18 05:20 MCV 92.9 fl (81.0-99.0) 01/15/18 05:20 MCH 27.9 pg (27.0-31.0) 01/15/18 05:20 MCHC 30.0 g/dL (33.0-37.0) L 01/15/18 05:20 RDW 20.1 % (11.5-14.5) H 01/15/18 05:20 Plt Count 84 K/uL (130-400) L 01/15/18 05:20 MPV 10.1 fl (7.2-11.7) 01/15/18 05:20 Neut % (Auto) 70.3 % (50.0-75.0) 01/15/18 05:20 Lymph % (Auto) 23.7 % (20.0-40.0) 01/15/18 05:20 Hanson % (Auto) 5.0 % (0.0-10.0) 01/15/18 05:20 Eos % (Auto) 0.6 % (0.0-4.0) 01/15/18 05:20 Baso % (Auto) 0.4 % (0.0-2.0) 01/15/18 05:20 Neut # (Auto) 8.8 K/uL (1.8-7.0) H 01/15/18 05:20 Lymph # (Auto) 3.0 K/uL (1.0-4.3) 01/15/18 05:20 Hanson # (Auto) 0.6 K/uL (0.0-0.8) 01/15/18 05:20 Eos # (Auto) 0.1 K/uL (0.0-0.7) 01/15/18 05:20 Baso # (Auto) 0.0 K/uL (0.0-0.2) 01/15/18 05:20 Sodium 145 mmol/l (132-148) 01/15/18 05:20 Potassium 3.8 MMOL/L (3.6-5.0) 01/15/18 05:20 Chloride 111 mmol/L (98-107) H 01/15/18 05:20 Carbon Dioxide 31 mmol/L (22-30) H 01/15/18 05:20 Anion Gap 7 (10-20) L 01/15/18 05:20 BUN 36 mg/dl (7-17) H 01/15/18 05:20 Creatinine 1.2 mg/dl (0.7-1.2) 01/15/18 05:20 Est GFR ( Amer) 53 01/15/18 05:20 Est GFR (Non-Af Amer) 44 01/15/18 05:20 POC Glucose (mg/dL) 176 mg/dL (65-110) H 01/15/18 10:41 Random Glucose 139 mg/dL (65-105) H 01/15/18 05:20 Calcium 8.8 mg/dL (8.4-10.2) 01/15/18 05:20 Phosphorus 2.5 mg/dl (2.5-4.5) 01/15/18 05:20 Magnesium 1.7 MG/DL (1.6-2.3) 01/15/18 05:20 Total Bilirubin 0.6 mg/dl (0.2-1.3) 01/15/18 05:20 AST 28 U/L (14-36) 01/15/18 05:20 ALT 48 U/L (9-52) 01/15/18 05:20 Alkaline Phosphatase 197 U/L (38-126) H D 01/15/18 05:20 Total Protein 3.7 G/DL (6.3-8.2) L 01/15/18 05:20 Albumin 1.9 g/dL (3.5-5.0) L 01/15/18 05:20 Globulin 1.8 gm/dL (2.2-3.9) L 01/15/18 05:20 Albumin/Globulin Ratio 1.1 (1.0-2.1) 01/15/18 05:20 - Hospital Course Hospital Course: 77-year-old woman with a PMHX of HTN, CAD s/p CABG, atrial fibrillation (not on anticoagulation due to thrombocytopenia), hypocalcemia, hyponatremia secondary to SIADH, B-cell lymphoma, Myelodysplastic Syndrome on chemo with hx pancytopenia post chemotherapy was admitted for chemotherapy infusion. Patient was seen and examined this morning. She had no complaints. She denied fever, chills, headache, chest pain or shortness of breath. 1. B-cell Lymphoma / Myelodysplastic Syndrome - Chemotherapy was received, and patient cleared by Dr. Ellen Nunes for discharge back to [facility]. 2. Hx of Pancytopenia sec to Chemotherapy WBC- 12.5, Hgb- 9.7, Hct-32.4, Plt-84 3. Chronic A-fib -Will continue Metoprolol 75mg PO BID. No anticoagulation due to thrombocytopenia 4. COPD chronic -Will continue Atrovent via Nebulizer 4 times daily with Xopenex PRN as per Dr. Vazquez 5. 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 No need for Samsca as per Dr. Allen. 6. Hypothyroid -Will continue Levothyroxine 75 mcg daily 7. CKD stage III -Stable 8. Hypertension / CAD -Will resume home meds Discharge Exam - Head Exam Head Exam: ATRAUMATIC, NORMOCEPHALIC - Neck Exam Neck exam: Full Rom - Respiratory Exam Respiratory Exam: Decreased Breath Sounds, Clear to PA & Lateral - Cardiovascular Exam Cardiovascular Exam: Irregular Rhythm, +S1, +S2 - GI/Abdominal Exam GI & Abdominal Exam: Normal Bowel Sounds, Soft - Extremities Exam Additional comments: Dependent edema of the upper thighs; calves nontender - Neurological Exam Neurological exam: Oriented x3 - Skin Skin Exam: Dry, Intact Discharge Plan - Discharge Medications Prescriptions: hydrALAZINE [Apresoline] 10 mg PO TID #1 tab - Follow Up Plan Condition: GOOD Disposition: TRANSF TO SNF Instructions: Non-Hodgkin Lymphoma, Adult (DC), Hyponatremia (DC) Additional Instructions: for blood work mondays and CBC, fax results to infusion center [phone] return to infusion center 02/05/18 Referrals: Raul Nunes MD [Staff Provider] - <Malu Berrios - Last Filed: 01/15/18 17:57> Provider - Provider Date of Admission: 01/10/18 10:07 Attending physician: Cristian Andrade MD Hospital Course - Lab Results Lab Results: Most Recent Lab Values WBC 12.5 K/uL (4.8-10.8) H 01/15/18 05:20 RBC 3.49 Mil/uL (3.80-5.20) L 01/15/18 05:20 Hgb 9.7 g/dL (12.0-16.0) L 01/15/18 05:20 Hct 32.4 % (34.0-47.0) L 01/15/18 05:20 MCV 92.9 fl (81.0-99.0) 01/15/18 05:20 MCH 27.9 pg (27.0-31.0) 01/15/18 05:20 MCHC 30.0 g/dL (33.0-37.0) L 01/15/18 05:20 RDW 20.1 % (11.5-14.5) H 01/15/18 05:20 Plt Count 84 K/uL (130-400) L 01/15/18 05:20 MPV 10.1 fl (7.2-11.7) 01/15/18 05:20 Neut % (Auto) 70.3 % (50.0-75.0) 01/15/18 05:20 Lymph % (Auto) 23.7 % (20.0-40.0) 01/15/18 05:20 [place] % (Auto) 5.0 % (0.0-10.0) 01/15/18 05:20 Eos % (Auto) 0.6 % (0.0-4.0) 01/15/18 05:20 Baso % (Auto) 0.4 % (0.0-2.0) 01/15/18 05:20 Neut # (Auto) 8.8 K/uL (1.8-7.0) H 01/15/18 05:20 Lymph # (Auto) 3.0 K/uL (1.0-4.3) 01/15/18 05:20 [place] # (Auto) 0.6 K/uL (0.0-0.8) 01/15/18 05:20 Eos # (Auto) 0.1 K/uL (0.0-0.7) 01/15/18 05:20 Baso # (Auto) 0.0 K/uL (0.0-0.2) 01/15/18 05:20 Sodium 145 mmol/l (132-148) 01/15/18 05:20 Potassium 3.8 MMOL/L (3.6-5.0) 01/15/18 05:20 Chloride 111 mmol/L (98-107) H 01/15/18 05:20 Carbon Dioxide 31 mmol/L (22-30) H 01/15/18 05:20 Anion Gap 7 (10-20) L 01/15/18 05:20 BUN 36 mg/dl (7-17) H 01/15/18 05:20 Creatinine 1.2 mg/dl (0.7-1.2) 01/15/18 05:20 Est GFR ( Amer) 53 01/15/18 05:20 Est GFR (Non-Af Amer) 44 01/15/18 05:20 POC Glucose (mg/dL) 176 mg/dL (65-110) H 01/15/18 10:41 Random Glucose 139 mg/dL (65-105) H 01/15/18 05:20 Calcium 8.8 mg/dL (8.4-10.2) 01/15/18 05:20 Phosphorus 2.5 mg/dl (2.5-4.5) 01/15/18 05:20 Magnesium 1.7 MG/DL (1.6-2.3) 01/15/18 05:20 Total Bilirubin 0.6 mg/dl (0.2-1.3) 01/15/18 05:20 AST 28 U/L (14-36) 01/15/18 05:20 ALT 48 U/L (9-52) 01/15/18 05:20 Alkaline Phosphatase 197 U/L (38-126) H D 01/15/18 05:20 Total Protein 3.7 G/DL (6.3-8.2) L 01/15/18 05:20 Albumin 1.9 g/dL (3.5-5.0) L 01/15/18 05:20 Globulin 1.8 gm/dL (2.2-3.9) L 01/15/18 05:20 Albumin/Globulin Ratio 1.1 (1.0-2.1) 01/15/18 05:20 Attending/Attestation - Attestation I have personally seen and examined this patient.: Yes I have fully participated in the care of the patient.: Yes I have reviewed all pertinent clinical information, including history, physical exam and plan: Yes
[2018-01-15 13:22] VITALS: BP 166/63
[2018-01-15] MEDS: Petrolatum UD PAK TOP SCH (13:27)
[2018-01-17] MEDS ORDERED: Epoetin Alfa 40000 UNIT/ml Inj SC SCH (09:00)
== END 2018-01-15 14:25 | DRG 846 ==
LOC: H.MEDSURG1 10:07
PROVIDERS: ADMIT Hospitalist; ATTEND Hospitalist
DX: Z51.11 Encounter for antineoplastic chemotherapy (principal); L89.323 Pressure ulcer of left buttock, stage 3; D61.810 Antineoplastic chemotherapy induced pancytopenia; C85.10 Unspecified B-cell lymphoma, unspecified site; E22.2 Syndrome of inappropriate secretion of antidiuretic hormone; E87.3 Alkalosis; M35.1 Other overlap syndromes; N17.9 Acute kidney failure, unspecified; Z79.890 Hormone replacement therapy; Z87.891 Personal history of nicotine dependence; Z88.1 Allergy status to other antibiotic agents; Z92.21 Personal history of antineoplastic chemotherapy; Z95.1 Presence of aortocoronary bypass graft; Z95.5 Presence of coronary angioplasty implant and graft; Z96.653 Presence of artificial knee joint, bilateral; E83.42 Hypomagnesemia; E87.6 Hypokalemia; K29.70 Gastritis, unspecified, without bleeding; I12.9 Hypertensive chronic kidney disease with stage 1 through stage 4 chronic kidney disease, or unspecified chronic kidney disease; N18.3 Chronic kidney disease, stage 3 (moderate); R32 Unspecified urinary incontinence; R60.9 Edema, unspecified; T45.1X5D Adverse effect of antineoplastic and immunosuppressive drugs, subsequent encounter; R54 Age-related physical debility; D46.9 Myelodysplastic syndrome, unspecified; E03.9 Hypothyroidism, unspecified; E11.22 Type 2 diabetes mellitus with diabetic chronic kidney disease; E78.00 Pure hypercholesterolemia, unspecified; E83.51 Hypocalcemia; G47.33 Obstructive sleep apnea (adult) (pediatric); H91.91 Unspecified hearing loss, right ear; I25.10 Atherosclerotic heart disease of native coronary artery without angina pectoris; I48.2 Chronic atrial fibrillation

== ENCOUNTER 2018-02-05 10:54 | Inpatient (IN) | payer MEDICARE, BC ==
[2018-02-05] MEDS ORDERED: Levalbuterol 0.63 MG/3 ML Inhal Soln UD INH PRN (11:14)
[2018-02-05] MEDS ORDERED: Proshield Plus GEL TOP PRN (11:14)
[2018-02-05] MEDS ORDERED: Sodium Chloride 3% for Inhalation 4 ML VIAL.NEB IH PRN (11:14)
--- NOTE | 2018-02-05 11:14 | CP.PCM.HP ---
History of Present Illness - History of Present Illness History of Present Illness: Mrs. Copeland is a 77-year-old woman with a past medical history of HTN, CAD s/p CABG, atrial fibrillation (not on anticoagulation due to thrombocytopenia),B cell lymphoma, MDS s/p chemo with pancytopenia ,SIADH sent from [facility] for direct admitt for chemotherapy infusion. Patient was discharged to [facility] last admission for physical therapy but she has not been able to participate with PT very well due to generalized weakness. At present denies any chest pian , SOB ,fever ,chills, nausea , vomiting , urinary symptoms , changes in bowel movements. Complains of generalized weakness and hearing loss , cough no sputum production. Allergies ; vancomycin PMH :HTN CAD CKD stage III, chronic anemia, B cell lymphoma, MDS, pancytopenia, Chronic Afib, COPD Medications: See med rec Surgery: bilateral knee replacement , PCI Family history ;None Social History ;ex smoker , denies ETOH or drug abuse , recently not ambulating due to weakness ROS :Feeling weak and tired , denies fever , chills,has cough, nop sputum production , unable to hear PMD : Dr Vazquez and Dr Luz Nunes Code status: Full code Surrogate decision maker :Daughter Leanna Present on Admission - Present on Admission Any Indicators Present on Admission: No Review of Systems - Review of Systems All systems: reviewed and no additional remarkable complaints except Past Patient History - Infectious Disease Hx of Infectious Diseases: None - Tetanus Immunizations Tetanus Immunization: Unknown - Past Medical History & Family History Past Medical History?: Yes - Past Social History Smoking Status: Former Smoker Chewing Tobacco Use: No Alcohol: None Drugs: Denies Home Situation {Lives}: [facility] - CARDIAC Hx Atrial Fibrillation: Yes Hx Congestive Heart Failure: Yes Hx Hypercholesterolemia: Yes Hx Hypertension: Yes Hx Peripheral Edema: Yes Other/Comment: CAD - PULMONARY Hx Chronic Obstructive Pulmonary Disease (COPD): Yes Hx Pneumonia: Yes Hx Sleep Apnea: Yes Other/Comment: Pleural effusion - NEUROLOGICAL Hx Neurological Disorder: No - HEENT Hx HEENT Problems: Yes (Hearing loss in the right ear.) Other/Comment: Use Eyeglasses - RENAL Hx Chronic Kidney Disease: Yes - ENDOCRINE/METABOLIC Hx Diabetes Mellitus Type 2: Yes Hx Hypothyroidism: Yes - HEMATOLOGICAL/ONCOLOGICAL Hx Anemia: Yes Other/Comment: Myelodysplastic syndrome - INTEGUMENTARY Hx Dermatological Problems: No - MUSCULOSKELETAL/RHEUMATOLOGICAL Hx Back Pain: Yes Hx Degenerative Joint Disease: Yes Hx Falls: Yes Hx Herniated Disk: Yes - GASTROINTESTINAL Hx Gastritis: Yes - GENITOURINARY/GYNECOLOGICAL Hx Incontinence: Yes - PSYCHIATRIC Hx Psychophysiologic Disorder: No Hx Substance Use: No - SURGICAL HISTORY Hx Coronary Artery Bypass Graft: Yes (2000) Hx Coronary Stent: Yes (PCI 2007 and 2010) Hx Joint Replacement: Yes (bilateral knee replacement) - ANESTHESIA Hx Anesthesia: Yes Hx Anesthesia Reactions: No Hx Malignant Hyperthermia: No Meds Allergies/Adverse Reactions: Allergies Allergy/AdvReac Type Severity Reaction Status Date / Time vancomycin AdvReac Intermediate NAUSEA Verified 11/25/17 11:20 Physical Exam - Constitutional Appears: No Acute Distress, Chronically Ill, Other (weak , pale ) - Head Exam Head Exam: ATRAUMATIC, NORMOCEPHALIC - Eye Exam Eye Exam: EOMI, PERRL Pupil Exam: NORMAL ACCOMODATION - ENT Exam ENT Exam: Mucous Membranes Moist, Normal Exam - Neck Exam Neck exam: Positive for: Full Rom, Normal Inspection - Respiratory Exam Respiratory Exam: Clear to Auscultation Bilateral, NORMAL BREATHING PATTERN. absent: Rhonchi, Wheezes - Cardiovascular Exam Cardiovascular Exam: Irregular Rhythm, +S1, +S2. absent: JVD - GI/Abdominal Exam GI & Abdominal Exam: Normal Bowel Sounds, Soft. absent: Distended, Guarding, Rebound, Tenderness - Rectal Exam Rectal Exam: Deferred - Extremities Exam Extremities exam: Positive for: normal capillary refill, normal inspection. Negative for: calf tenderness, pedal edema - Back Exam Back exam: NORMAL INSPECTION - Neurological Exam Neurological exam: Alert, CN II-XII Intact, Oriented x3 - Psychiatric Exam Psychiatric exam: Normal Affect - Skin Skin Exam: Dry, Pallor, Warm Assessment & Plan - Assessment and Plan (Free Text) Assessment: Mrs Copeland is a 77-year-old woman with a past medical history of HTN, CAD s/p CABG, atrial fibrillation (not on anticoagulation due to thrombocytopenia), lymphoma, MDS s/p chemo with pancytopenia, SIADH being admitted for chemotherapy infusion. 1. B-cell lymphoma / MDS (myelodysplastic syndrome) admit patient for chemotherapy Order CBC , BMP Dr De Dios on hematology/oncology consult 2. Pancytopenia sec to Chemotherapy Check CBC 3. Chronic A-fib on Metoprolol 75mg PO BID. no anticoagulation due to thrombocytopenia 4. COPD chronic continue Atrovent and Xopenex pulmonary consult 5. Hyponatremia sec to SIADH kayli Check BMP 6. Hypothyroid on Levothyroxine 7. CKD stage III stable 8. Hypertension / CAD Resume home meds 9. Hearing loss unclear etiology possible medication induced or age related will need audiometry testing as outpatient
[2018-02-05] MEDS ORDERED: Dexamethasone 10 MG in Sodium Chloride 0.9% 50 ML IVPB ONE (11:25)
[2018-02-05] MEDS ORDERED: SODIUM CHLORIDE 0.9% IV ONE ×2 (11:29→14:30)
[2018-02-05] MEDS ORDERED: RITUXIMAB IV ONE ×2 (11:29→14:30)
[2018-02-05 11:43] VITALS: BMI 25.2
[2018-02-05 13:02] LABS: HEMOGLOBIN 8.9 g/dL (12.0-16.0); MEAN CELL VOLUME 88.7 fl (81.0-99.0); MEAN CORPUSCULAR HEMOGLOBIN 28.5 pg (27.0-31.0); MEAN CORPUSCULAR HGB CONC 32.1 g/dL (33.0-37.0); RBC 3.12 Mil/uL (3.80-5.20); RED CELL DISTRIBUTION WIDTH 18.6 % (11.5-14.5); WHITE BLOOD COUNT 8.4 K/uL (4.8-10.8)
[2018-02-05 13:15] LABS: BLOOD UREA NITROGEN 33 mg/dl (7-17); GFR NON-AFRICAN AMERICAN > 60
[2018-02-05] MEDS ORDERED: Lidocaine/Prilocaine CREAM 5GM TP ONE (13:45)
[2018-02-05] MEDS ORDERED: DiphenhydrAMINE 50 mg/ml Inj IVP ONE (13:45)
[2018-02-05] MEDS: Sodium Chloride 0.9% 500 ML IV SCH (14:48)
[2018-02-05] MEDS: Ipratropium 0.02% Inhal Soln (0.5 mg/2.5 ml) UD IH SCH ×3 (14:49→19:44)
[2018-02-05] MEDS: Magnesium Oxide 400 mg Tab UD PO SCH (16:21)
[2018-02-05] MEDS: Petrolatum UD PAK TOP SCH (16:23)
[2018-02-06] MEDS: Sodium Chloride 0.9% 500 ML IV SCH ×2 (02:22→10:56)
[2018-02-06] MEDS: Levothyroxine 75 MCG TAB PO SCH (06:33)
[2018-02-06] MEDS: Ipratropium 0.02% Inhal Soln (0.5 mg/2.5 ml) UD IH SCH ×4 (07:56→19:53)
[2018-02-06 08:07] LABS: BASO % 0.5 % (0.0-2.0); EOS % 0.2 % (0.0-4.0); HEMOGLOBIN 8.3 g/dL (12.0-16.0); LYMPH # 2.8 K/uL (1.0-4.3); LYMPH % 42.2 % (20.0-40.0); MEAN CELL VOLUME 87.7 fl (81.0-99.0); MEAN CORPUSCULAR HEMOGLOBIN 28.2 pg (27.0-31.0); MEAN CORPUSCULAR HGB CONC 32.2 g/dL (33.0-37.0); MEAN PLATELET VOLUME 8.8 fl (7.2-11.7); MONO # 0.2 K/uL (0.0-0.8); MONO % 3.4 % (0.0-10.0); NEUT # 3.6 K/uL (1.8-7.0); NEUT % 53.7 % (50.0-75.0); RBC 2.95 Mil/uL (3.80-5.20); RED CELL DISTRIBUTION WIDTH 18.3 % (11.5-14.5); WHITE BLOOD COUNT 6.7 K/uL (4.8-10.8)
[2018-02-06 08:17] LABS: BLOOD UREA NITROGEN 31 mg/dl (7-17); GFR NON-AFRICAN AMERICAN > 60
[2018-02-06] MEDS: Magnesium Oxide 400 mg Tab UD PO SCH ×2 (08:48→18:00)
[2018-02-06] MEDS: Cholecalciferol 1,000 INTLU TAB PO SCH (08:48)
[2018-02-06] MEDS: Pantoprazole 40 mg EC Tab PO SCH (08:49)
[2018-02-06] MEDS: Multivitamin With Minerals Tab PO SCH (08:49)
[2018-02-06] MEDS: Digoxin 125 mcg (0.125 mg) Tab PO SCH (08:50)
[2018-02-06] MEDS: Petrolatum UD PAK TOP SCH ×2 (09:00→18:00)
[2018-02-06] MEDS ORDERED: Pantoprazole 40 mg EC Tab PO SCH (09:00)
[2018-02-06] MEDS ORDERED: DiphenhydrAMINE 12.5 mg/5 ml LIQ UD (5 ml) PO SCH (09:30)
--- NOTE | 2018-02-06 10:01 | CP.PCM.PN ---
Objective - Vital Signs/Intake and Output Vital Signs (last 24 hours): Temp Pulse Resp BP Pulse Ox 97.3 F L 74 20 170/75 H 98 02/06/18 08:21 02/06/18 08:21 02/06/18 08:21 02/06/18 08:21 02/06/18 08:21 - Medications Medications: Current Medications Acetaminophen (Tylenol 325mg Tab) 650 mg PO Q6 PRN PRN Reason: Pain, Mild (1-3) Acetaminophen (Tylenol 325mg Tab) 650 mg PO Q6 PRN PRN Reason: Fever >100.4 F Atorvastatin Calcium (Lipitor) 10 mg PO HS [facility] Last Admin: 02/05/18 22:31 Dose: 10 mg Benzonatate (Tessalon Perles) 200 mg PO TID PRN PRN Reason: Cough Last Admin: 02/06/18 08:49 Dose: 200 mg Cholecalciferol (Vitamin D) 1,000 intlu PO DAILY [facility] Last Admin: 02/06/18 08:48 Dose: 1,000 intlu Digoxin (Digoxin) 0.125 mg PO DAILY [facility] Last Admin: 02/06/18 08:50 Dose: 0.125 mg Dimethicone (Proshield Plus Skin Protectant) 1 applic TOP Q8 PRN PRN Reason: Rash Diphenhydramine HCl (Benadryl) 12.5 mg PO ONCE [facility] Stop: 02/06/18 17:00 Docusate Sodium (Colace) 100 mg PO BID [facility] Last Admin: 02/06/18 08:49 Dose: Not Given Emollient Ointment (Vaseline Oint) 1 pkt TOP BID [facility] Last Admin: 02/05/18 16:23 Dose: 1 pkt Epoetin Rolo (Procrit) 40,000 unit SC WED [facility] Granisetron HCl (Kytril) 1 mg PO ONCE [facility] Stop: 02/06/18 18:00 Hydralazine HCl (Apresoline) 10 mg PO TID [facility] Last Admin: 02/06/18 08:50 Dose: 10 mg Sodium Chloride (Sodium Chloride 0.9%) 500 mls @ 50 mls/hr IV .Q10H [facility] Last Admin: 02/06/18 02:22 Dose: Not Given Azacitidine 150 mg/ Sodium (Chloride) 100 mls @ 200 mls/hr IV ONCE [facility] Stop: 02/06/18 18:00 Ipratropium [place] (Atrovent) 0.5 mg IH RQID [facility] Last Admin: 02/06/18 07:56 Dose: 0.5 mg Levalbuterol HCl (Xopenex) 0.63 mg INH RQ4 PRN PRN Reason: Shortness of Breath Levothyroxine Sodium (Synthroid) 75 mcg PO DAILY@0630 [facility] Last Admin: 02/06/18 06:33 Dose: 75 mcg Losartan Potassium (Cozaar) 50 mg PO DAILY [facility] Last Admin: 02/06/18 08:49 Dose: 50 mg Magnesium Oxide (Mag-Ox) 400 mg PO BID [facility] Last Admin: 02/06/18 08:48 Dose: 400 mg Metoprolol Tartrate (Lopressor) 50 mg PO Q12 [facility] Last Admin: 02/06/18 08:50 Dose: 50 mg Mirtazapine (Remeron) 7.5 mg PO HS [facility] Last Admin: 02/05/18 22:31 Dose: 7.5 mg Multivitamins/Minerals (Therapeutic-M Tab) 1 tab PO DAILY [facility] Last Admin: 02/06/18 08:49 Dose: 1 tab Nystatin (Nystop Topical Powder) 1 applic TOP TID [facility] Last Admin: 02/06/18 08:51 Dose: 1 applic Ondansetron HCl (Zofran Inj) 4 mg IVP Q6 PRN PRN Reason: Nausea/Vomiting Pantoprazole Sodium (Protonix Ec Tab) 40 mg PO DAILY [facility] Last Admin: 02/06/18 08:49 Dose: 40 mg - Labs Labs: 02/06/18 08:01 02/06/18 08:01
--- NOTE | 2018-02-06 10:39 | CP.PCM.CON ---
History of Present Illness - History of Present Illness History of Present Illness: This 77-year-old female is well-known to me from prior hospitalizations was admitted to Hospital for chemotherapy because of lymphoma. She has a long and complicated past medical history which includes chronic obstructive pulmonary disease as well as obstructive sleep apnea. Also suffers from chronic atrial fibrillation, hypertension, hyperlipidemia, and diabetes. She had been at an extended care facility since her last hospitalization and does have a complaint of significant hearing loss which occurred during the interim. She has noted that her voice has improved significantly during the same period of time. Past Patient History - Infectious Disease Hx of Infectious Diseases: None - Tetanus Immunizations Tetanus Immunization: Unknown - Past Medical History & Family History Past Medical History?: Yes - Past Social History Smoking Status: Former Smoker Chewing Tobacco Use: No Cigar Use: No Alcohol: None Drugs: Denies Home Situation {Lives}: Retirement - CARDIAC Hx Atrial Fibrillation: Yes Hx Congestive Heart Failure: Yes Hx Hypercholesterolemia: Yes Hx Hypertension: Yes Hx Peripheral Edema: Yes Other/Comment: CAD - PULMONARY Hx Chronic Obstructive Pulmonary Disease (COPD): Yes Hx Pneumonia: Yes Hx Sleep Apnea: Yes Other/Comment: Pleural effusion - NEUROLOGICAL Hx Neurological Disorder: No - HEENT Hx HEENT Problems: Yes (Hearing loss in the right ear.) Other/Comment: Use Eyeglasses - RENAL Hx Chronic Kidney Disease: Yes - ENDOCRINE/METABOLIC Hx Diabetes Mellitus Type 2: Yes Hx Hypothyroidism: Yes - HEMATOLOGICAL/ONCOLOGICAL Hx Anemia: Yes Other/Comment: Myelodysplastic syndrome - INTEGUMENTARY Hx Dermatological Problems: No - MUSCULOSKELETAL/RHEUMATOLOGICAL Hx Back Pain: Yes Hx Degenerative Joint Disease: Yes Hx Falls: Yes Hx Herniated Disk: Yes - GASTROINTESTINAL Hx Gastritis: Yes - GENITOURINARY/GYNECOLOGICAL Hx Incontinence: Yes - PSYCHIATRIC Hx Psychophysiologic Disorder: No Hx Substance Use: No - SURGICAL HISTORY Hx Coronary Artery Bypass Graft: Yes (2000) Hx Coronary Stent: Yes (PCI 2007 and 2010) Hx Joint Replacement: Yes (bilateral knee replacement) - ANESTHESIA Hx Anesthesia: Yes Hx Anesthesia Reactions: No Hx Malignant Hyperthermia: No Meds Allergies/Adverse Reactions: Allergies Allergy/AdvReac Type Severity Reaction Status Date / Time vancomycin AdvReac Intermediate NAUSEA Verified 11/25/17 11:20 - Medications Medications: Current Medications Acetaminophen (Tylenol 325mg Tab) 650 mg PO Q6 PRN PRN Reason: Pain, Mild (1-3) Acetaminophen (Tylenol 325mg Tab) 650 mg PO Q6 PRN PRN Reason: Fever >100.4 F Atorvastatin Calcium (Lipitor) 10 mg PO HS [facility] Last Admin: 02/05/18 22:31 Dose: 10 mg Benzonatate (Tessalon Perles) 200 mg PO TID PRN PRN Reason: Cough Last Admin: 02/06/18 08:49 Dose: 200 mg Cholecalciferol (Vitamin D) 1,000 intlu PO DAILY [facility] Last Admin: 02/06/18 08:48 Dose: 1,000 intlu Digoxin (Digoxin) 0.125 mg PO DAILY [facility] Last Admin: 02/06/18 08:50 Dose: 0.125 mg Dimethicone (Proshield Plus Skin Protectant) 1 applic TOP Q8 PRN PRN Reason: Rash Diphenhydramine HCl (Benadryl) 12.5 mg PO ONCE [facility] Stop: 02/06/18 17:00 Docusate Sodium (Colace) 100 mg PO BID [facility] Last Admin: 02/06/18 08:49 Dose: Not Given Emollient Ointment (Vaseline Oint) 1 pkt TOP BID [facility] Last Admin: 02/05/18 16:23 Dose: 1 pkt Epoetin Rolo (Procrit) 40,000 unit SC WED [facility] Granisetron HCl (Kytril) 1 mg PO ONCE [facility] Stop: 02/06/18 18:00 Hydralazine HCl (Apresoline) 10 mg PO TID [facility] Last Admin: 02/06/18 08:50 Dose: 10 mg Sodium Chloride (Sodium Chloride 0.9%) 500 mls @ 50 mls/hr IV .Q10H [facility] Last Admin: 02/06/18 02:22 Dose: Not Given Azacitidine 150 mg/ Sodium (Chloride) 100 mls @ 200 mls/hr IV ONCE [facility] Stop: 02/06/18 18:00 Ipratropium [place] (Atrovent) 0.5 mg IH RQID [facility] Last Admin: 02/06/18 07:56 Dose: 0.5 mg Levalbuterol HCl (Xopenex) 0.63 mg INH RQ4 PRN PRN Reason: Shortness of Breath Levothyroxine Sodium (Synthroid) 75 mcg PO DAILY@0630 [facility] Last Admin: 02/06/18 06:33 Dose: 75 mcg Losartan Potassium (Cozaar) 50 mg PO DAILY [facility] Last Admin: 02/06/18 08:49 Dose: 50 mg Magnesium Oxide (Mag-Ox) 400 mg PO BID [facility] Last Admin: 02/06/18 08:48 Dose: 400 mg Metoprolol Tartrate (Lopressor) 50 mg PO Q12 [facility] Last Admin: 02/06/18 08:50 Dose: 50 mg Mirtazapine (Remeron) 7.5 mg PO HS [facility] Last Admin: 02/05/18 22:31 Dose: 7.5 mg Multivitamins/Minerals (Therapeutic-M Tab) 1 tab PO DAILY [facility] Last Admin: 02/06/18 08:49 Dose: 1 tab Nystatin (Nystop Topical Powder) 1 applic TOP TID [facility] Last Admin: 02/06/18 08:51 Dose: 1 applic Ondansetron HCl (Zofran Inj) 4 mg IVP Q6 PRN PRN Reason: Nausea/Vomiting Pantoprazole Sodium (Protonix Ec Tab) 40 mg PO DAILY [facility] Last Admin: 02/06/18 08:49 Dose: 40 mg Physical Exam - Additional Findings Additional findings: Significant improvement is noted in the dependent edema which had been present in both lower extremities. Areas of hyperpigmentation are noted in both pretibial areas. No calf tenderness or palpable venous cords. No cyanosis. The pharynx is pink and the mucous membranes are moist without exudate. The neck is supple and trachea is midline. No neck vein distention noted. No dullness on percussion of the anterior thorax. No subcutaneous emphysema. LifePort is present in the right anterior chest wall. No cervical, supraclavicular or axillary lymphadenopathy palpable. Breath sounds are diminished bilaterally but present equally in both lungs. Occasional rhonchi are heard in dependent areas of the lower lobes bilaterally. No audible wheezing. Occasional scattered dry rales in the lower lobes. No bronchial breath sounds or egophony. Heart sounds are distant and the rhythm is irregular. The abdomen is soft and nontender with normal bowel sounds. Results - Vital Signs Recent Vital Signs: Last Vital Signs Temp 97.3 F L 02/06/18 08:21 Pulse 74 02/06/18 08:21 Resp 20 02/06/18 08:21 BP 170/75 H 02/06/18 08:21 Pulse Ox 98 02/06/18 08:21 - Labs Result Diagrams: 02/06/18 08:01 02/06/18 08:01 Labs: Laboratory Results - last 24 hr 02/05/18 02/05/18 02/05/18 11:36 12:50 12:50 WBC 8.4 RBC 3.12 L Hgb 8.9 L Hct 27.7 L MCV 88.7 D MCH 28.5 MCHC 32.1 L RDW 18.6 H Plt Count 125 L D MPV Neut % (Auto) Lymph % (Auto) Worth % (Auto) Eos % (Auto) Baso % (Auto) Neut # (Auto) Lymph # (Auto) Worth # (Auto) Eos # (Auto) Baso # (Auto) Sodium 133 Potassium 3.9 Chloride 100 Carbon Dioxide 33 H Anion Gap 4 L BUN 33 H Creatinine 0.7 Est GFR ( Amer) > 60 Est GFR (Non-Af Amer) > 60 POC Glucose (mg/dL) 160 H Random Glucose 205 H Calcium 8.0 L 02/05/18 02/05/18 02/06/18 16:23 21:23 06:19 WBC RBC Hgb Hct MCV MCH MCHC RDW Plt Count MPV Neut % (Auto) Lymph % (Auto) Worth % (Auto) Eos % (Auto) Baso % (Auto) Neut # (Auto) Lymph # (Auto) Worth # (Auto) Eos # (Auto) Baso # (Auto) Sodium Potassium Chloride Carbon Dioxide Anion Gap BUN Creatinine Est GFR ( Amer) Est GFR (Non-Af Amer) POC Glucose (mg/dL) 194 H 247 H 130 H Random Glucose Calcium 02/06/18 02/06/18 08:01 08:01 WBC 6.7 RBC 2.95 L Hgb 8.3 L Hct 25.8 L MCV 87.7 MCH 28.2 MCHC 32.2 L RDW 18.3 H Plt Count 112 L MPV 8.8 Neut % (Auto) 53.7 Lymph % (Auto) 42.2 H Worth % (Auto) 3.4 Eos % (Auto) 0.2 Baso % (Auto) 0.5 Neut # (Auto) 3.6 Lymph # (Auto) 2.8 Worth # (Auto) 0.2 Eos # (Auto) 0.0 Baso # (Auto) 0.0 Sodium 134 Potassium 3.9 Chloride 100 Carbon Dioxide 32 H Anion Gap 6 L BUN 31 H Creatinine 0.7 Est GFR ( Amer) > 60 Est GFR (Non-Af Amer) > 60 POC Glucose (mg/dL) Random Glucose 106 H Calcium 8.0 L Assessment & Plan (1) COPD (chronic obstructive pulmonary disease) Status: Chronic Priority: High Comment: Pulmonary status appears to be stable at the present time. Chest x-ray will be requested to evaluate more clearly. Current medical regimen will remain unchanged. (2) Hearing loss Status: Acute Comment: Will need further evaluation. (3) Marginal zone B-cell lymphoma Status: Chronic Comment: Presently hospitalized for chemotherapy. - Date & Time Date: 02/06/18 Time: 10:38
--- NOTE | 2018-02-06 11:49 | CP.PCM.PN ---
Subjective - Date & Time of Evaluation Date of Evaluation: 02/06/18 Time of Evaluation: 11:47 - Subjective Subjective: Pt tolerated the chemo well yesterday.She will now get the azacitadine daily for 4 days more.Vital signs are normal. Objective - Vital Signs/Intake and Output Vital Signs (last 24 hours): Temp Pulse Resp BP Pulse Ox 97.3 F L 74 20 170/75 H 98 02/06/18 08:21 02/06/18 08:21 02/06/18 08:21 02/06/18 08:21 02/06/18 08:21 - Medications Medications: Current Medications Acetaminophen (Tylenol 325mg Tab) 650 mg PO Q6 PRN PRN Reason: Pain, Mild (1-3) Acetaminophen (Tylenol 325mg Tab) 650 mg PO Q6 PRN PRN Reason: Fever >100.4 F Atorvastatin Calcium (Lipitor) 10 mg PO HS [facility] Last Admin: 02/05/18 22:31 Dose: 10 mg Benzonatate (Tessalon Perles) 200 mg PO TID PRN PRN Reason: Cough Last Admin: 02/06/18 08:49 Dose: 200 mg Cholecalciferol (Vitamin D) 1,000 intlu PO DAILY [facility] Last Admin: 02/06/18 08:48 Dose: 1,000 intlu Digoxin (Digoxin) 0.125 mg PO DAILY [facility] Last Admin: 02/06/18 08:50 Dose: 0.125 mg Dimethicone (Proshield Plus Skin Protectant) 1 applic TOP Q8 PRN PRN Reason: Rash Diphenhydramine HCl (Benadryl) 12.5 mg PO ONCE [facility] Stop: 02/06/18 17:00 Last Admin: 02/06/18 10:56 Dose: 12.5 mg Docusate Sodium (Colace) 100 mg PO BID [facility] Last Admin: 02/06/18 08:49 Dose: Not Given Emollient Ointment (Vaseline Oint) 1 pkt TOP BID [facility] Last Admin: 02/05/18 16:23 Dose: 1 pkt Epoetin [place] (Procrit) 40,000 unit SC WED [facility] Granisetron HCl (Kytril) 1 mg PO ONCE [facility] Stop: 02/06/18 18:00 Last Admin: 02/06/18 10:57 Dose: 1 mg Hydralazine HCl (Apresoline) 10 mg PO TID [facility] Last Admin: 02/06/18 08:50 Dose: 10 mg Sodium Chloride (Sodium Chloride 0.9%) 500 mls @ 50 mls/hr IV .Q10H [facility] Last Admin: 02/06/18 10:56 Dose: 50 mls/hr Azacitidine 150 mg/ Sodium (Chloride) 100 mls @ 200 mls/hr IV ONCE [facility] Stop: 02/06/18 18:00 Last Admin: 02/06/18 11:03 Dose: 200 mls/hr Ipratropium [place] (Atrovent) 0.5 mg IH RQID [facility] Last Admin: 02/06/18 11:46 Dose: 0.5 mg Levalbuterol HCl (Xopenex) 0.63 mg INH RQ4 PRN PRN Reason: Shortness of Breath Levothyroxine Sodium (Synthroid) 75 mcg PO DAILY@0630 [facility] Last Admin: 02/06/18 06:33 Dose: 75 mcg Losartan Potassium (Cozaar) 50 mg PO DAILY [facility] Last Admin: 02/06/18 08:49 Dose: 50 mg Magnesium Oxide (Mag-Ox) 400 mg PO BID [facility] Last Admin: 02/06/18 08:48 Dose: 400 mg Metoprolol Tartrate (Lopressor) 50 mg PO Q12 [facility] Last Admin: 02/06/18 08:50 Dose: 50 mg Mirtazapine (Remeron) 7.5 mg PO HS [facility] Last Admin: 02/05/18 22:31 Dose: 7.5 mg Multivitamins/Minerals (Therapeutic-M Tab) 1 tab PO DAILY [facility] Last Admin: 02/06/18 08:49 Dose: 1 tab Nystatin (Nystop Topical Powder) 1 applic TOP TID [facility] Last Admin: 02/06/18 08:51 Dose: 1 applic Ondansetron HCl (Zofran Inj) 4 mg IVP Q6 PRN PRN Reason: Nausea/Vomiting Pantoprazole Sodium (Protonix Ec Tab) 40 mg PO DAILY [facility] Last Admin: 02/06/18 08:49 Dose: 40 mg - Labs Labs: 02/06/18 08:01 02/06/18 08:01
--- NOTE | 2018-02-06 13:38 | RAD ---
Date of service: 02/06/2018 HISTORY: COPD COMPARISON: 01/12/2018 FINDINGS: LUNGS: Minimal bibasilar subsegmental atelectasis. No infiltrate. PLEURA: Possible small right pleural effusion. No left pleural effusion. No pneumothorax. CARDIOVASCULAR: Normal heart size. Sternotomy wires peer right central venous infusion port. OSSEOUS STRUCTURES: No significant abnormalities. VISUALIZED UPPER ABDOMEN: Normal. OTHER FINDINGS: None. IMPRESSION: Possible small right pleural effusion. Bibasilar subsegmental atelectasis.
--- NOTE | 2018-02-06 14:31 | CP.PCM.PN ---
Subjective - Date & Time of Evaluation Date of Evaluation: 02/06/18 Time of Evaluation: 13:00 - Subjective Subjective: Patient was seen and examined bedside .Chronically ill female, weak, lying in bed in No acute distress. Afebrile, pale. Tolerated chemo well yesterday. No acute issues overnight With hearing loss Objective - Vital Signs/Intake and Output Vital Signs (last 24 hours): Temp Pulse Resp BP Pulse Ox 97.3 F L 60 20 168/70 H 98 02/06/18 08:21 02/06/18 13:13 02/06/18 08:21 02/06/18 13:13 02/06/18 08:21 - Medications Medications: Current Medications Acetaminophen (Tylenol 325mg Tab) 650 mg PO Q6 PRN PRN Reason: Pain, Mild (1-3) Acetaminophen (Tylenol 325mg Tab) 650 mg PO Q6 PRN PRN Reason: Fever >100.4 F Atorvastatin Calcium (Lipitor) 10 mg PO HS [facility] Last Admin: 02/05/18 22:31 Dose: 10 mg Benzonatate (Tessalon Perles) 200 mg PO TID PRN PRN Reason: Cough Last Admin: 02/06/18 08:49 Dose: 200 mg Cholecalciferol (Vitamin D) 1,000 intlu PO DAILY [facility] Last Admin: 02/06/18 08:48 Dose: 1,000 intlu Digoxin (Digoxin) 0.125 mg PO DAILY [facility] Last Admin: 02/06/18 08:50 Dose: 0.125 mg Dimethicone (Proshield Plus Skin Protectant) 1 applic TOP Q8 PRN PRN Reason: Rash Diphenhydramine HCl (Benadryl) 12.5 mg PO ONCE [facility] Stop: 02/06/18 17:00 Last Admin: 02/06/18 10:56 Dose: 12.5 mg Docusate Sodium (Colace) 100 mg PO BID [facility] Last Admin: 02/06/18 08:49 Dose: Not Given Emollient Ointment (Vaseline Oint) 1 pkt TOP BID [facility] Last Admin: 02/06/18 09:00 Dose: Not Given Epoetin Rolo (Procrit) 40,000 unit SC WED [facility] Granisetron HCl (Kytril) 1 mg PO ONCE [facility] Stop: 02/06/18 18:00 Last Admin: 02/06/18 10:57 Dose: 1 mg Hydralazine HCl (Apresoline) 10 mg PO TID [facility] Last Admin: 02/06/18 13:13 Dose: 10 mg Sodium Chloride (Sodium Chloride 0.9%) 500 mls @ 50 mls/hr IV .Q10H [facility] Last Admin: 02/06/18 10:56 Dose: 50 mls/hr Azacitidine 150 mg/ Sodium (Chloride) 100 mls @ 200 mls/hr IV ONCE [facility] Stop: 02/06/18 18:00 Last Admin: 02/06/18 11:03 Dose: 200 mls/hr Ipratropium [place] (Atrovent) 0.5 mg IH RQID [facility] Last Admin: 02/06/18 11:46 Dose: 0.5 mg Levalbuterol HCl (Xopenex) 0.63 mg INH RQ4 PRN PRN Reason: Shortness of Breath Levothyroxine Sodium (Synthroid) 75 mcg PO DAILY@0630 [facility] Last Admin: 02/06/18 06:33 Dose: 75 mcg Losartan Potassium (Cozaar) 50 mg PO DAILY [facility] Last Admin: 02/06/18 08:49 Dose: 50 mg Magnesium Oxide (Mag-Ox) 400 mg PO BID [facility] Last Admin: 02/06/18 08:48 Dose: 400 mg Metoprolol Tartrate (Lopressor) 50 mg PO Q12 [facility] Last Admin: 02/06/18 08:50 Dose: 50 mg Mirtazapine (Remeron) 7.5 mg PO HS [facility] Last Admin: 02/05/18 22:31 Dose: 7.5 mg Multivitamins/Minerals (Therapeutic-M Tab) 1 tab PO DAILY [facility] Last Admin: 02/06/18 08:49 Dose: 1 tab Nystatin (Nystop Topical Powder) 1 applic TOP TID [facility] Last Admin: 02/06/18 08:51 Dose: 1 applic Ondansetron HCl (Zofran Inj) 4 mg IVP Q6 PRN PRN Reason: Nausea/Vomiting Pantoprazole Sodium (Protonix Ec Tab) 40 mg PO DAILY [facility] Last Admin: 02/06/18 08:49 Dose: 40 mg - Labs Labs: 02/06/18 08:01 02/06/18 08:01 - Constitutional Appears: Non-toxic, No Acute Distress, Chronically Ill - Head Exam Head Exam: ATRAUMATIC, NORMAL INSPECTION, NORMOCEPHALIC - Eye Exam Eye Exam: EOMI, Normal appearance, PERRL Pupil Exam: NORMAL ACCOMODATION - ENT Exam ENT Exam: Mucous Membranes Dry, Normal External Ear Exam (no cerumen ), TM's Normal Bilaterally - Neck Exam Neck Exam: Full ROM, Normal Inspection - Respiratory Exam Respiratory Exam: Clear to Ausculation Bilateral, NORMAL BREATHING PATTERN. absent: Rales, Rhonchi, Wheezes, Respiratory Distress - Cardiovascular Exam Cardiovascular Exam: REGULAR RHYTHM, +S1, +S2. absent: JVD - GI/Abdominal Exam GI & Abdominal Exam: Soft, Normal Bowel Sounds. absent: Distended, Guarding, Tenderness, Rebound - Rectal Exam Rectal Exam: Deferred - Extremities Exam Extremities Exam: Full ROM, Normal Inspection, Pedal Edema (1 +) - Neurological Exam Neurological Exam: Alert, Awake, CN II-XII Intact, Oriented x3 - Psychiatric Exam Psychiatric exam: Flat Affect, Normal Affect - Skin Skin Exam: Dry, Pallor, Warm Assessment and Plan - Assessment and Plan (Free Text) Assessment: 77-year-old woman with a past medical history of HTN, CAD s/p CABG, atrial fibrillation (not on anticoagulation due to thrombocytopenia), lymphoma, MDS s/p chemo with pancytopenia, SIADH admitted for chemotherapy infusion.At present doing well, pale and weak, tolerating chemo. 1. B-cell lymphoma / MDS (myelodysplastic syndrome) tolerating chemo well WBC 6.[address] De Dios on hematology/oncology consult following patient Granix given today 2. Pancytopenia sec to Chemotherapy WBC 6K Hgb 8.3 Repeat CBC in AMm Given Granix today 3. Chronic A-fib on Metoprolol 75mg PO BID. no anticoagulation due to thrombocytopenia 4. COPD chronic continue Atrovent and Xopenex pulmonary consult appreciated 5. Hyponatremia sec to SIADH stable 6. Hypothyroid on Levothyroxine 7. CKD stage III stable 8. Hypertension / CAD Resumed home meds controlled 9. Hearing loss unclear etiology possible medication induced or age related will need audiometry testing as outpatient
[2018-02-07] MEDS: Levothyroxine 75 MCG TAB PO SCH (06:43)
[2018-02-07 07:00] LABS: HEMOGLOBIN 7.5 g/dL (12.0-16.0); MEAN CELL VOLUME 87.7 fl (81.0-99.0); MEAN CORPUSCULAR HEMOGLOBIN 28.9 pg (27.0-31.0); RBC 2.61 Mil/uL (3.80-5.20); WHITE BLOOD COUNT 7.7 K/uL (4.8-10.8)
[2018-02-07 07:07] LABS: BLOOD UREA NITROGEN 25 mg/dl (7-17); CALCIUM 7.9 mg/dL (8.4-10.2); GFR NON-AFRICAN AMERICAN > 60
[2018-02-07] MEDS: Ipratropium 0.02% Inhal Soln (0.5 mg/2.5 ml) UD IH SCH ×4 (07:55→19:21)
[2018-02-07] MEDS: Digoxin 125 mcg (0.125 mg) Tab PO SCH (08:22)
[2018-02-07] MEDS: Multivitamin With Minerals Tab PO SCH (08:23)
[2018-02-07] MEDS: Magnesium Oxide 400 mg Tab UD PO SCH ×2 (08:23→17:30)
[2018-02-07] MEDS: Pantoprazole 40 mg EC Tab PO SCH (08:24)
[2018-02-07] MEDS: Petrolatum UD PAK TOP SCH ×2 (09:00→17:00)
[2018-02-07] MEDS ORDERED: Epoetin Alfa 40000 UNIT/ml Inj SC SCH (09:00)
[2018-02-07] MEDS: Cholecalciferol 1,000 INTLU TAB PO SCH (09:30)
--- NOTE | 2018-02-07 10:01 | CP.PCM.PN ---
Addendum entered and electronically signed by Cristian Andrade MD 02/07/18 15:20: Patient admitted with baseline anemia and thrombocytopenia this admission . She has history of developing severe pancytopenia with chemotherapy treatment and that is the reason why she is being hospitalized for close monitoring and management during chemo infusion. Addendum entered and electronically signed by Cristian Andrade MD 02/07/18 11:57: Patient seen and examined bedside .All chart and clinical data reviewed . Agree with resident assessment and plan. Chronically ill female lying in bed in NAD. Appears weak, tired pale Receiving 3rd infusion of azacitidin etoday Hgb 7.5 today will transfuse 2 units PRBC as per Hem/onc Continue current management Original Note: Subjective - Date & Time of Evaluation Date of Evaluation: 02/07/18 Time of Evaluation: 09:00 - Subjective Subjective: No acute overnight events. Pt feels well, after chemo 2 days ago, pt was transfused 2 units after hg dropped to 7.5. Pt has a cough which she states has been a chronic issue, with brown sputum. Denies fevers, chills, nausea, vomiting, chest pain, SOB, dysuria, diarrhea, constipation. Pt is hard of hearing. Objective - Vital Signs/Intake and Output Vital Signs (last 24 hours): Temp Pulse Resp BP Pulse Ox 98.5 F 66 20 148/55 L 100 02/07/18 08:35 02/07/18 08:35 02/07/18 08:35 02/07/18 08:35 02/07/18 08:35 - Medications Medications: Current Medications Acetaminophen (Tylenol 325mg Tab) 650 mg PO Q6 PRN PRN Reason: Pain, Mild (1-3) Acetaminophen (Tylenol 325mg Tab) 650 mg PO Q6 PRN PRN Reason: Fever >100.4 F Atorvastatin Calcium (Lipitor) 10 mg PO HS [facility] Last Admin: 02/06/18 22:08 Dose: 10 mg Benzonatate (Tessalon Perles) 200 mg PO TID PRN PRN Reason: Cough Last Admin: 02/07/18 08:23 Dose: 200 mg Cholecalciferol (Vitamin D) 1,000 intlu PO DAILY [facility] Last Admin: 02/06/18 08:48 Dose: 1,000 intlu Digoxin (Digoxin) 0.125 mg PO DAILY [facility] Last Admin: 02/07/18 08:22 Dose: 0.125 mg Dimethicone (Proshield Plus Skin Protectant) 1 applic TOP Q8 PRN PRN Reason: Rash Docusate Sodium (Colace) 100 mg PO BID [facility] Last Admin: 02/07/18 08:20 Dose: Not Given Emollient Ointment (Vaseline Oint) 1 pkt TOP BID [facility] Last Admin: 02/06/18 18:00 Dose: 1 pkt Epoetin Rolo (Procrit) 40,000 unit SC WED [facility] Last Admin: 02/07/18 08:26 Dose: 40,000 unit Granisetron HCl (Kytril) 1 mg PO ONCE [facility] Stop: 02/07/18 07:51 Hydralazine HCl (Apresoline) 10 mg PO TID [facility] Last Admin: 02/07/18 08:20 Dose: 10 mg Sodium Chloride (Sodium Chloride 0.9%) 500 mls @ 50 mls/hr IV .Q10H [facility] Last Admin: 02/06/18 10:56 Dose: 50 mls/hr Azacitidine 150 mg/ Sodium (Chloride) 100 mls @ 0 mls/hr IV ONCE ONE Stop: 02/07/18 07:54 Ipratropium [place] (Atrovent) 0.5 mg IH RQID [facility] Last Admin: 02/07/18 07:55 Dose: 0.5 mg Levalbuterol HCl (Xopenex) 0.63 mg INH RQ4 PRN PRN Reason: Shortness of Breath Levothyroxine Sodium (Synthroid) 75 mcg PO DAILY@0630 [facility] Last Admin: 02/07/18 06:43 Dose: 75 mcg Losartan Potassium (Cozaar) 50 mg PO DAILY [facility] Last Admin: 02/07/18 08:24 Dose: 50 mg Magnesium Oxide (Mag-Ox) 400 mg PO BID [facility] Last Admin: 02/07/18 08:23 Dose: 400 mg Metoprolol Tartrate (Lopressor) 50 mg PO Q12 [facility] Last Admin: 02/07/18 08:23 Dose: 50 mg Mirtazapine (Remeron) 7.5 mg PO HS [facility] Last Admin: 02/06/18 22:08 Dose: 7.5 mg Multivitamins/Minerals (Therapeutic-M Tab) 1 tab PO DAILY [facility] Last Admin: 02/07/18 08:23 Dose: 1 tab Nystatin (Nystop Topical Powder) 1 applic TOP TID [facility] Last Admin: 02/06/18 18:00 Dose: 1 applic Ondansetron HCl (Zofran Inj) 4 mg IVP Q6 PRN PRN Reason: Nausea/Vomiting Pantoprazole Sodium (Protonix Ec Tab) 40 mg PO DAILY [facility] Last Admin: 02/07/18 08:24 Dose: 40 mg - Labs Labs: 02/07/18 06:27 02/07/18 06:27 - Constitutional Appears: Non-toxic, No Acute Distress, Chronically Ill - Head Exam Head Exam: ATRAUMATIC, NORMAL INSPECTION, NORMOCEPHALIC - Eye Exam Eye Exam: EOMI, Normal appearance - ENT Exam ENT Exam: Mucous Membranes Moist - Respiratory Exam Respiratory Exam: Rales, Rhonchi (Coarse), Wheezes (Expiratory) - Cardiovascular Exam Cardiovascular Exam: RRR, +S1, +S2 - GI/Abdominal Exam GI & Abdominal Exam: Soft, Normal Bowel Sounds - Extremities Exam Extremities Exam: Normal Inspection - Neurological Exam Neurological Exam: Alert, Awake, Oriented x3 Assessment and Plan - Assessment and Plan (Free Text) Assessment: 77-year-old woman with a past medical history of HTN, CAD s/p CABG, atrial fibrillation (not on anticoagulation due to thrombocytopenia), lymphoma, MDS s/p chemo with pancytopenia, SIADH admitted for chemotherapy infusion.At present doing well, pale and weak, tolerating chemo. 1. B-cell lymphoma / MDS (myelodysplastic syndrome) Tolerating chemo WBC 7.7 HGb 7.[address] De Dios on hematology/oncology consult following patient Granix given yest F/u CBC in AM 2. Pancytopenia sec to Chemotherapy WBC 6K Hgb 8.3 Repeat CBC in AM Given Granix yest 3. Chronic A-fib on Metoprolol 75mg PO BID. no anticoagulation due to thrombocytopenia 4. COPD chronic continue Atrovent and Xopenex Tessala Perles Pulmonary consult appreciated- Dr. Vazquez 5. 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 Hypothyroid on Levothyroxine 7. CKD stage III stable 8. Hypertension / CAD Resumed home meds controlled 9. Hearing loss unclear etiology possible medication induced or age related will need audiometry testing as outpatient
--- NOTE | 2018-02-07 10:29 | CP.PCM.PN ---
Subjective - Date & Time of Evaluation Date of Evaluation: 02/07/18 Time of Evaluation: 10:29 Objective - Vital Signs/Intake and Output Vital Signs (last 24 hours): Temp Pulse Resp BP Pulse Ox 98.5 F 66 20 148/55 L 100 02/07/18 08:35 02/07/18 08:35 02/07/18 08:35 02/07/18 08:35 02/07/18 08:35 - Medications Medications: Current Medications Acetaminophen (Tylenol 325mg Tab) 650 mg PO Q6 PRN PRN Reason: Pain, Mild (1-3) Acetaminophen (Tylenol 325mg Tab) 650 mg PO Q6 PRN PRN Reason: Fever >100.4 F Atorvastatin Calcium (Lipitor) 10 mg PO HS [facility] Last Admin: 02/06/18 22:08 Dose: 10 mg Benzonatate (Tessalon Perles) 200 mg PO TID PRN PRN Reason: Cough Last Admin: 02/07/18 08:23 Dose: 200 mg Cholecalciferol (Vitamin D) 1,000 intlu PO DAILY [facility] Last Admin: 02/06/18 08:48 Dose: 1,000 intlu Digoxin (Digoxin) 0.125 mg PO DAILY [facility] Last Admin: 02/07/18 08:22 Dose: 0.125 mg Dimethicone (Proshield Plus Skin Protectant) 1 applic TOP Q8 PRN PRN Reason: Rash Docusate Sodium (Colace) 100 mg PO BID [facility] Last Admin: 02/07/18 08:20 Dose: Not Given Emollient Ointment (Vaseline Oint) 1 pkt TOP BID [facility] Last Admin: 02/06/18 18:00 Dose: 1 pkt Epoetin Rolo (Procrit) 40,000 unit SC WED [facility] Last Admin: 02/07/18 08:26 Dose: 40,000 unit Granisetron HCl (Kytril) 1 mg PO ONCE ONE Stop: 02/07/18 07:51 Hydralazine HCl (Apresoline) 10 mg PO TID [facility] Last Admin: 02/07/18 08:20 Dose: 10 mg Sodium Chloride (Sodium Chloride 0.9%) 500 mls @ 50 mls/hr IV .Q10H [facility] Last Admin: 02/06/18 10:56 Dose: 50 mls/hr Azacitidine 150 mg/ Sodium (Chloride) 100 mls @ 0 mls/hr IV ONCE ONE Stop: 02/07/18 07:54 Ipratropium [place] (Atrovent) 0.5 mg IH RQID [facility] Last Admin: 02/07/18 07:55 Dose: 0.5 mg Levalbuterol HCl (Xopenex) 0.63 mg INH RQ4 PRN PRN Reason: Shortness of Breath Levothyroxine Sodium (Synthroid) 75 mcg PO DAILY@0630 [facility] Last Admin: 02/07/18 06:43 Dose: 75 mcg Losartan Potassium (Cozaar) 50 mg PO DAILY [facility] Last Admin: 02/07/18 08:24 Dose: 50 mg Magnesium Oxide (Mag-Ox) 400 mg PO BID [facility] Last Admin: 02/07/18 08:23 Dose: 400 mg Metoprolol Tartrate (Lopressor) 50 mg PO Q12 [facility] Last Admin: 02/07/18 08:23 Dose: 50 mg Mirtazapine (Remeron) 7.5 mg PO HS [facility] Last Admin: 02/06/18 22:08 Dose: 7.5 mg Multivitamins/Minerals (Therapeutic-M Tab) 1 tab PO DAILY [facility] Last Admin: 02/07/18 08:23 Dose: 1 tab Nystatin (Nystop Topical Powder) 1 applic TOP TID [facility] Last Admin: 02/06/18 18:00 Dose: 1 applic Ondansetron HCl (Zofran Inj) 4 mg IVP Q6 PRN PRN Reason: Nausea/Vomiting Pantoprazole Sodium (Protonix Ec Tab) 40 mg PO DAILY [facility] Last Admin: 02/07/18 08:24 Dose: 40 mg - Labs Labs: 02/07/18 06:27 02/07/18 06:27 Assessment and Plan (1) COPD (chronic obstructive pulmonary disease) Status: Chronic (2) Hearing loss Status: Acute (3) Marginal zone B-cell lymphoma Status: Chronic
--- NOTE | 2018-02-07 11:45 | CP.PCM.PN ---
Subjective - Date & Time of Evaluation Date of Evaluation: 02/07/18 Time of Evaluation: 11:28 - Subjective Subjective: Pt looks much better, but still too weak to stand up. Her hgb today is 7.5gms. will transfuse 2 units of packed cells. She is also due for the azacitidine 3rd dose today. She needs 2 more doses. of the azacitidine. Objective - Vital Signs/Intake and Output Vital Signs (last 24 hours): Temp Pulse Resp BP Pulse Ox 98.5 F 66 20 148/55 L 100 02/07/18 08:35 02/07/18 08:35 02/07/18 08:35 02/07/18 08:35 02/07/18 08:35 - Medications Medications: Current Medications Acetaminophen (Tylenol 325mg Tab) 650 mg PO Q6 PRN PRN Reason: Pain, Mild (1-3) Acetaminophen (Tylenol 325mg Tab) 650 mg PO Q6 PRN PRN Reason: Fever >100.4 F Atorvastatin Calcium (Lipitor) 10 mg PO HS [facility] Last Admin: 02/06/18 22:08 Dose: 10 mg Benzonatate (Tessalon Perles) 200 mg PO TID PRN PRN Reason: Cough Last Admin: 02/07/18 08:23 Dose: 200 mg Cholecalciferol (Vitamin D) 1,000 intlu PO DAILY [facility] Last Admin: 02/06/18 08:48 Dose: 1,000 intlu Digoxin (Digoxin) 0.125 mg PO DAILY [facility] Last Admin: 02/07/18 08:22 Dose: 0.125 mg Dimethicone (Proshield Plus Skin Protectant) 1 applic TOP Q8 PRN PRN Reason: Rash Docusate Sodium (Colace) 100 mg PO BID [facility] Last Admin: 02/07/18 08:20 Dose: Not Given Emollient Ointment (Vaseline Oint) 1 pkt TOP BID [facility] Last Admin: 02/06/18 18:00 Dose: 1 pkt Epoetin Rolo (Procrit) 40,000 unit SC WED [facility] Last Admin: 02/07/18 08:26 Dose: 40,000 unit Hydralazine HCl (Apresoline) 10 mg PO TID [facility] Last Admin: 02/07/18 08:20 Dose: 10 mg Sodium Chloride (Sodium Chloride 0.9%) 500 mls @ 50 mls/hr IV .Q10H [facility] Last Admin: 02/06/18 10:56 Dose: 50 mls/hr Ipratropium [place] (Atrovent) 0.5 mg IH RQID [facility] Last Admin: 02/07/18 11:19 Dose: 0.5 mg Levalbuterol HCl (Xopenex) 0.63 mg INH RQ4 PRN PRN Reason: Shortness of Breath Levothyroxine Sodium (Synthroid) 75 mcg PO DAILY@0630 [facility] Last Admin: 02/07/18 06:43 Dose: 75 mcg Losartan Potassium (Cozaar) 50 mg PO DAILY [facility] Last Admin: 02/07/18 08:24 Dose: 50 mg Magnesium Oxide (Mag-Ox) 400 mg PO BID [facility] Last Admin: 02/07/18 08:23 Dose: 400 mg Metoprolol Tartrate (Lopressor) 50 mg PO Q12 [facility] Last Admin: 02/07/18 08:23 Dose: 50 mg Mirtazapine (Remeron) 7.5 mg PO HS [facility] Last Admin: 02/06/18 22:08 Dose: 7.5 mg Multivitamins/Minerals (Therapeutic-M Tab) 1 tab PO DAILY [facility] Last Admin: 02/07/18 08:23 Dose: 1 tab Nystatin (Nystop Topical Powder) 1 applic TOP TID [facility] Last Admin: 02/07/18 09:30 Dose: 1 applic Ondansetron HCl (Zofran Inj) 4 mg IVP Q6 PRN PRN Reason: Nausea/Vomiting Pantoprazole Sodium (Protonix Ec Tab) 40 mg PO DAILY [facility] Last Admin: 02/07/18 08:24 Dose: 40 mg - Labs Labs: 02/07/18 06:27 02/07/18 06:27
[2018-02-08] MEDS: Sodium Chloride 0.9% 500 ML IV SCH ×3 (01:45→21:51)
--- NOTE | 2018-02-08 07:07 | CP.PCM.PN ---
<KendrasantosAnette - Last Filed: 02/08/18 11:24> Subjective - Date & Time of Evaluation Date of Evaluation: 02/08/18 Time of Evaluation: 09:00 - Subjective Subjective: No acute overnight events. Pt is weak and lethargic this morning, Pt Hg now 11.3 up from 7.5 yesterday after 2 units transfused. Pt has a cough which she states has been a chronic issue, with brown sputum. Denies fevers, chills, nausea, vomiting, chest pain, SOB, dysuria, diarrhea, constipation. Pt is hard of hearing. Day 4 of Azacitidine. Objective - Vital Signs/Intake and Output Vital Signs (last 24 hours): Temp Pulse Resp BP Pulse Ox 98.1 F 74 18 164/67 H 96 02/08/18 00:15 02/08/18 00:15 02/08/18 00:15 02/08/18 00:15 02/08/18 00:15 Intake and Output: 02/08/18 02/08/18 06:59 18:59 Output Total 250 Balance -250 - Medications Medications: Current Medications Acetaminophen (Tylenol 325mg Tab) 650 mg PO Q6 PRN PRN Reason: Pain, Mild (1-3) Acetaminophen (Tylenol 325mg Tab) 650 mg PO Q6 PRN PRN Reason: Fever >100.4 F Atorvastatin Calcium (Lipitor) 10 mg PO HS [facility] Last Admin: 02/07/18 21:06 Dose: 10 mg Benzonatate (Tessalon Perles) 200 mg PO TID PRN PRN Reason: Cough Last Admin: 02/07/18 08:23 Dose: 200 mg Cholecalciferol (Vitamin D) 1,000 intlu PO DAILY [facility] Last Admin: 02/07/18 09:30 Dose: 1,000 intlu Digoxin (Digoxin) 0.125 mg PO DAILY [facility] Last Admin: 02/07/18 08:22 Dose: 0.125 mg Dimethicone (Proshield Plus Skin Protectant) 1 applic TOP Q8 PRN PRN Reason: Rash Docusate Sodium (Colace) 100 mg PO BID [facility] Last Admin: 02/07/18 16:56 Dose: Not Given Emollient Ointment (Vaseline Oint) 1 pkt TOP BID [facility] Last Admin: 02/07/18 17:00 Dose: Not Given Epoetin Rolo (Procrit) 40,000 unit SC WED [facility] Last Admin: 02/07/18 08:26 Dose: 40,000 unit Hydralazine HCl (Apresoline) 10 mg PO TID [facility] Last Admin: 02/07/18 16:55 Dose: 10 mg Sodium Chloride (Sodium Chloride 0.9%) 500 mls @ 50 mls/hr IV .Q10H [facility] Last Admin: 02/08/18 01:45 Dose: Not Given Ipratropium [place] (Atrovent) 0.5 mg IH RQID [facility] Last Admin: 02/07/18 19:21 Dose: 0.5 mg Levalbuterol HCl (Xopenex) 0.63 mg INH RQ4 PRN PRN Reason: Shortness of Breath Levothyroxine Sodium (Synthroid) 75 mcg PO DAILY@0630 [facility] Last Admin: 02/07/18 06:43 Dose: 75 mcg Losartan Potassium (Cozaar) 50 mg PO DAILY [facility] Last Admin: 02/07/18 08:24 Dose: 50 mg Magnesium Oxide (Mag-Ox) 400 mg PO BID [facility] Last Admin: 02/07/18 17:30 Dose: Not Given Metoprolol Tartrate (Lopressor) 50 mg PO Q12 [facility] Last Admin: 02/07/18 21:07 Dose: 50 mg Mirtazapine (Remeron) 7.5 mg PO HS [facility] Last Admin: 02/06/18 22:08 Dose: 7.5 mg Multivitamins/Minerals (Therapeutic-M Tab) 1 tab PO DAILY [facility] Last Admin: 02/07/18 08:23 Dose: 1 tab Nystatin (Nystop Topical Powder) 1 applic TOP TID [facility] Last Admin: 02/07/18 17:30 Dose: Not Given Ondansetron HCl (Zofran Inj) 4 mg IVP Q6 PRN PRN Reason: Nausea/Vomiting Pantoprazole Sodium (Protonix Ec Tab) 40 mg PO DAILY [facility] Last Admin: 02/07/18 08:24 Dose: 40 mg - Labs Labs: 02/07/18 06:27 02/07/18 06:27 - Constitutional Appears: Non-toxic, No Acute Distress, Chronically Ill - Head Exam Head Exam: ATRAUMATIC, NORMAL INSPECTION, NORMOCEPHALIC - Eye Exam Eye Exam: EOMI - ENT Exam ENT Exam: Mucous Membranes Dry - Respiratory Exam Respiratory Exam: Decreased Breath Sounds, Rales, Wheezes (B/L expiratory) - Cardiovascular Exam Cardiovascular Exam: RRR, +S1, +S2 - GI/Abdominal Exam GI & Abdominal Exam: Soft, Normal Bowel Sounds - Extremities Exam Extremities Exam: Normal Inspection - Neurological Exam Neurological Exam: Alert, Awake, Oriented x3 Assessment and Plan - Assessment and Plan (Free Text) Assessment: 77-year-old woman with a past medical history of HTN, CAD s/p CABG, atrial fibrillation (not on anticoagulation due to thrombocytopenia), lymphoma, MDS s/p chemo with pancytopenia, [facility] admitted for chemotherapy infusion.At present doing well, pale and weak, tolerating chemo. 1. B-cell lymphoma / MDS (myelodysplastic syndrome) Tolerating chemo WBC 7.5 HGb 11.3 Transf[address] De Dios on hematology/oncology consult following patient Granix given 2 days ago F/u CBC in AM Possible D/C tomorrow after day 5 of Azacitine 2. Pancytopenia sec to Chemotherapy WBC 7.5 Hgb 11.3 Repeat CBC in AM Given Granix 2 days ago 3. Chronic A-fib on Metoprolol 50mg Q12, Digoxin, hydrazaline, Cozaar no anticoagulation due to thrombocytopenia 4. COPD chronic continue Atrovent and Xopenex Tessala Perles Incentive [facility] Pul[facility] consult appreciated- Dr. Vazquez 5. 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 Hypothyroid on Levothyroxine 7. CKD stage III stable 8. Hypertension / CAD Resumed home meds controlled 9. Hearing loss unclear etiology possible medication induced or age related will need audiometry testing as outpatient <Mark Wolf - Last Filed: 02/08/18 17:25> Objective - Vital Signs/Intake and Output Vital Signs (last 24 hours): Temp Pulse Resp BP Pulse Ox 98.1 F 76 18 158/63 H 98 02/08/18 16:30 02/08/18 17:13 02/08/18 16:30 02/08/18 17:13 02/08/18 16:30 Intake and Output: 02/08/18 02/08/18 06:59 18:59 Output Total 250 Balance -250 - Medications Medications: Current Medications Acetaminophen (Tylenol 325mg Tab) 650 mg PO Q6 PRN PRN Reason: Pain, Mild (1-3) Acetaminophen (Tylenol 325mg Tab) 650 mg PO Q6 PRN PRN Reason: Fever >100.4 F Atorvastatin Calcium (Lipitor) 10 mg PO HS [facility] Last Admin: 02/07/18 21:06 Dose: 10 mg Benzonatate (Tessalon Perles) 200 mg PO TID PRN PRN Reason: Cough Last Admin: 02/08/18 17:15 Dose: 200 mg Cholecalciferol (Vitamin D) 1,000 intlu PO DAILY [facility] Last Admin: 02/08/18 09:00 Dose: 1,000 intlu Digoxin (Digoxin) 0.125 mg PO DAILY [facility] Last Admin: 02/08/18 09:05 Dose: 0.125 mg Dimethicone (Proshield Plus Skin Protectant) 1 applic TOP Q8 PRN PRN Reason: Rash Docusate Sodium (Colace) 100 mg PO BID [facility] Last Admin: 02/08/18 17:12 Dose: 100 mg Emollient Ointment (Vaseline Oint) 1 pkt TOP BID [facility] Last Admin: 02/08/18 17:14 Dose: Not Given Epoetin Rolo (Procrit) 40,000 unit SC WED [facility] Last Admin: 02/07/18 08:26 Dose: 40,000 unit Hydralazine HCl (Apresoline) 10 mg PO TID [facility] Last Admin: 02/08/18 17:13 Dose: 10 mg Sodium Chloride (Sodium Chloride 0.9%) 500 mls @ 50 mls/hr IV .Q10H [facility] Last Admin: 02/08/18 01:45 Dose: Not Given Ipratropium [place] (Atrovent) 0.5 mg IH RQID [facility] Last Admin: 02/08/18 15:05 Dose: 0.5 mg Levalbuterol HCl (Xopenex) 0.63 mg INH RQ8 [facility] Last Admin: 02/08/18 15:04 Dose: 0.63 mg Levothyroxine Sodium (Synthroid) 75 mcg PO DAILY@0630 [facility] Last Admin: 02/08/18 07:23 Dose: 75 mcg Losartan Potassium (Cozaar) 50 mg PO DAILY [facility] Last Admin: 02/08/18 09:00 Dose: 50 mg Magnesium Oxide (Mag-Ox) 400 mg PO BID [facility] Last Admin: 02/08/18 17:12 Dose: 400 mg Metoprolol Tartrate (Lopressor) 50 mg PO Q12 [facility] Last Admin: 02/08/18 13:07 Dose: 50 mg Mirtazapine (Remeron) 7.5 mg PO HS [facility] Last Admin: 02/07/18 22:00 Dose: 7.5 mg Multivitamins/Minerals (Therapeutic-M Tab) 1 tab PO DAILY [facility] Last Admin: 02/08/18 09:02 Dose: 1 tab Nystatin (Nystop Topical Powder) 1 applic TOP TID [facility] Last Admin: 02/08/18 17:14 Dose: 1 applic Ondansetron HCl (Zofran Inj) 4 mg IVP Q6 PRN PRN Reason: Nausea/Vomiting Pantoprazole Sodium (Protonix Ec Tab) 40 mg PO DAILY [facility] Last Admin: 02/08/18 09:00 Dose: 40 mg - Labs Labs: 02/08/18 09:19 02/08/18 09:19 Attending/Attestation - Attestation I have personally seen and examined this patient.: Yes I have fully participated in the care of the patient.: Yes I have reviewed all pertinent clinical information, including history, physical exam and plan: Yes Notes (Text): continue chemo
[2018-02-08] MEDS: Levothyroxine 75 MCG TAB PO SCH (07:23)
[2018-02-08] MEDS: Ipratropium 0.02% Inhal Soln (0.5 mg/2.5 ml) UD IH SCH ×4 (07:42→19:20)
--- NOTE | 2018-02-08 08:41 | CP.PCM.PN ---
Subjective - Date & Time of Evaluation Date of Evaluation: 02/08/18 Time of Evaluation: 08:39 - Subjective Subjective: Pt is doing better after the transfusion. No side effects from chemotherapy so far. Will get her 4th doase of azacitidine today. Last day tomorrow after whish she can be discharged Objective - Vital Signs/Intake and Output Vital Signs (last 24 hours): Temp Pulse Resp BP Pulse Ox 97.6 F 90 20 139/73 98 02/08/18 08:02 02/08/18 08:02 02/08/18 08:02 02/08/18 08:02 02/08/18 08:02 Intake and Output: 02/08/18 02/08/18 06:59 18:59 Output Total 250 Balance -250 - Medications Medications: Current Medications Acetaminophen (Tylenol 325mg Tab) 650 mg PO Q6 PRN PRN Reason: Pain, Mild (1-3) Acetaminophen (Tylenol 325mg Tab) 650 mg PO Q6 PRN PRN Reason: Fever >100.4 F Atorvastatin Calcium (Lipitor) 10 mg PO HS [facility] Last Admin: 02/07/18 21:06 Dose: 10 mg Benzonatate (Tessalon Perles) 200 mg PO TID PRN PRN Reason: Cough Last Admin: 02/07/18 08:23 Dose: 200 mg Cholecalciferol (Vitamin D) 1,000 intlu PO DAILY [facility] Last Admin: 02/07/18 09:30 Dose: 1,000 intlu Digoxin (Digoxin) 0.125 mg PO DAILY [facility] Last Admin: 02/07/18 08:22 Dose: 0.125 mg Dimethicone (Proshield Plus Skin Protectant) 1 applic TOP Q8 PRN PRN Reason: Rash Docusate Sodium (Colace) 100 mg PO BID [facility] Last Admin: 02/07/18 16:56 Dose: Not Given Emollient Ointment (Vaseline Oint) 1 pkt TOP BID [facility] Last Admin: 02/07/18 17:00 Dose: Not Given Epoetin Rolo (Procrit) 40,000 unit SC WED [facility] Last Admin: 02/07/18 08:26 Dose: 40,000 unit Granisetron HCl (Kytril) 1 mg PO ONCE ONE Stop: 02/08/18 08:34 Hydralazine HCl (Apresoline) 10 mg PO TID [facility] Last Admin: 02/07/18 16:55 Dose: 10 mg Sodium Chloride (Sodium Chloride 0.9%) 500 mls @ 50 mls/hr IV .Q10H [facility] Last Admin: 02/08/18 01:45 Dose: Not Given Azacitidine 150 mg/ Sodium (Chloride) 100 mls @ 0 mls/hr IV ONCE ONE Stop: 02/08/18 08:36 Ipratropium [place] (Atrovent) 0.5 mg IH RQID [facility] Last Admin: 02/08/18 07:42 Dose: Not Given Levalbuterol HCl (Xopenex) 0.63 mg INH RQ4 PRN PRN Reason: Shortness of Breath Levothyroxine Sodium (Synthroid) 75 mcg PO DAILY@0630 [facility] Last Admin: 02/08/18 07:23 Dose: 75 mcg Losartan Potassium (Cozaar) 50 mg PO DAILY [facility] Last Admin: 02/07/18 08:24 Dose: 50 mg Magnesium Oxide (Mag-Ox) 400 mg PO BID [facility] Last Admin: 02/07/18 17:30 Dose: Not Given Metoprolol Tartrate (Lopressor) 50 mg PO Q12 [facility] Last Admin: 02/07/18 21:07 Dose: 50 mg Mirtazapine (Remeron) 7.5 mg PO HS [facility] Last Admin: 02/07/18 22:00 Dose: 7.5 mg Multivitamins/Minerals (Therapeutic-M Tab) 1 tab PO DAILY [facility] Last Admin: 02/07/18 08:23 Dose: 1 tab Nystatin (Nystop Topical Powder) 1 applic TOP TID [facility] Last Admin: 02/07/18 17:30 Dose: Not Given Ondansetron HCl (Zofran Inj) 4 mg IVP Q6 PRN PRN Reason: Nausea/Vomiting Pantoprazole Sodium (Protonix Ec Tab) 40 mg PO DAILY [facility] Last Admin: 02/07/18 08:24 Dose: 40 mg - Labs Labs: 02/07/18 06:27 02/07/18 06:27
[2018-02-08] MEDS: Magnesium Oxide 400 mg Tab UD PO SCH ×2 (09:00→17:12)
[2018-02-08] MEDS: Cholecalciferol 1,000 INTLU TAB PO SCH (09:00)
[2018-02-08] MEDS: Pantoprazole 40 mg EC Tab PO SCH (09:00)
[2018-02-08] MEDS: Petrolatum UD PAK TOP SCH ×2 (09:00→17:14)
[2018-02-08] MEDS: Multivitamin With Minerals Tab PO SCH (09:02)
[2018-02-08] MEDS: Digoxin 125 mcg (0.125 mg) Tab PO SCH (09:05)
[2018-02-08 09:40] LABS: BASO # 0.1 K/uL (0.0-0.2); BASO % 0.8 % (0.0-2.0); EOS % 0.1 % (0.0-4.0); HEMOGLOBIN 11.3 g/dL (12.0-16.0); LYMPH # 2.6 K/uL (1.0-4.3); LYMPH % 35.2 % (20.0-40.0); MEAN CELL VOLUME 87.7 fl (81.0-99.0); MEAN CORPUSCULAR HEMOGLOBIN 28.9 pg (27.0-31.0); MEAN CORPUSCULAR HGB CONC 32.9 g/dL (33.0-37.0); MEAN PLATELET VOLUME 9.1 fl (7.2-11.7); MONO # 0.2 K/uL (0.0-0.8); MONO % 3.3 % (0.0-10.0); NEUT # 4.5 K/uL (1.8-7.0); NEUT % 60.6 % (50.0-75.0); RBC 3.9 Mil/uL (3.80-5.20); RED CELL DISTRIBUTION WIDTH 16.6 % (11.5-14.5); WHITE BLOOD COUNT 7.5 K/uL (4.8-10.8)
[2018-02-08 09:42] LABS: ALT/SGPT 37 U/L (9-52); AST/SGOT 27 U/L (14-36); BLOOD UREA NITROGEN 23 mg/dl (7-17); CALCIUM 7.9 mg/dL (8.4-10.2); GFR NON-AFRICAN AMERICAN > 60
[2018-02-08] MEDS: Levalbuterol 0.63 MG/3 ML Inhal Soln UD INH SCH ×2 (15:04→23:54)
[2018-02-09 06:36] LABS: BASO # 0.1 K/uL (0.0-0.2); BASO % 0.8 % (0.0-2.0); EOS % 0.2 % (0.0-4.0); HEMOGLOBIN 11.8 g/dL (12.0-16.0); LYMPH # 3.4 K/uL (1.0-4.3); MEAN CELL VOLUME 86.4 fl (81.0-99.0); MEAN CORPUSCULAR HEMOGLOBIN 29.1 pg (27.0-31.0); MEAN CORPUSCULAR HGB CONC 33.7 g/dL (33.0-37.0); MEAN PLATELET VOLUME 9.3 fl (7.2-11.7); MONO # 0.2 K/uL (0.0-0.8); MONO % 1.8 % (0.0-10.0); NEUT # 5.8 K/uL (1.8-7.0); NEUT % 61.2 % (50.0-75.0); NRBC % 0.1 % (0.0-0.0); RBC 4.05 Mil/uL (3.80-5.20); RED CELL DISTRIBUTION WIDTH 16.6 % (11.5-14.5); WHITE BLOOD COUNT 9.4 K/uL (4.8-10.8)
[2018-02-09 06:42] LABS: ALBUMIN 2.1 g/dL (3.5-5.0); ALT/SGPT 38 U/L (9-52); AST/SGOT 22 U/L (14-36); BLOOD UREA NITROGEN 21 mg/dl (7-17); CALCIUM 8.1 mg/dL (8.4-10.2); GFR NON-AFRICAN AMERICAN > 60
[2018-02-09] MEDS: Levalbuterol 0.63 MG/3 ML Inhal Soln UD INH SCH ×2 (07:32→15:18)
[2018-02-09] MEDS: Ipratropium 0.02% Inhal Soln (0.5 mg/2.5 ml) UD IH SCH ×3 (07:32→15:18)
--- NOTE | 2018-02-09 07:50 | CP.PCM.PN ---
Subjective - Date & Time of Evaluation Date of Evaluation: 02/09/18 Time of Evaluation: 07:46 - Subjective Subjective: Pt 's blood counts are much improved .the post transfusion hgb is 11.6gms. Platelets 93k, and WBC 7.4. Today is her last chemotherapy with Azacitadine. can be discharged after that. To return for the next chemo in 4 weeks., March 05 Objective - Vital Signs/Intake and Output Vital Signs (last 24 hours): Temp Pulse Resp BP Pulse Ox 98.9 F 75 18 155/62 H 97 02/08/18 23:45 02/08/18 23:45 02/08/18 23:45 02/08/18 23:45 02/08/18 23:45 - Medications Medications: Current Medications Acetaminophen (Tylenol 325mg Tab) 650 mg PO Q6 PRN PRN Reason: Pain, Mild (1-3) Acetaminophen (Tylenol 325mg Tab) 650 mg PO Q6 PRN PRN Reason: Fever >100.4 F Atorvastatin Calcium (Lipitor) 10 mg PO HS [facility] Last Admin: 02/08/18 21:27 Dose: 10 mg Benzonatate (Tessalon Perles) 200 mg PO TID PRN PRN Reason: Cough Last Admin: 02/09/18 01:44 Dose: 200 mg Cholecalciferol (Vitamin D) 1,000 intlu PO DAILY [facility] Last Admin: 02/08/18 09:00 Dose: 1,000 intlu Digoxin (Digoxin) 0.125 mg PO DAILY [facility] Last Admin: 02/08/18 09:05 Dose: 0.125 mg Dimethicone (Proshield Plus Skin Protectant) 1 applic TOP Q8 PRN PRN Reason: Rash Docusate Sodium (Colace) 100 mg PO BID [facility] Last Admin: 02/08/18 17:12 Dose: 100 mg Emollient Ointment (Vaseline Oint) 1 pkt TOP BID [facility] Last Admin: 02/08/18 17:14 Dose: Not Given Epoetin Rolo (Procrit) 40,000 unit SC WED [facility] Last Admin: 02/07/18 08:26 Dose: 40,000 unit Granisetron HCl (Kytril) 1 mg PO ONCE ONE Stop: 02/09/18 07:37 Hydralazine HCl (Apresoline) 10 mg PO TID [facility] Last Admin: 02/08/18 17:13 Dose: 10 mg Sodium Chloride (Sodium Chloride 0.9%) 500 mls @ 50 mls/hr IV .Q10H [facility] Last Admin: 02/08/18 21:51 Dose: Not Given Azacitidine 150 mg/ Sodium (Chloride) 100 mls @ 0 mls/hr IV ONCE ONE Stop: 02/09/18 07:38 Ipratropium [place] (Atrovent) 0.5 mg IH RQID [facility] Last Admin: 02/09/18 07:32 Dose: 0.5 mg Levalbuterol HCl (Xopenex) 0.63 mg INH RQ8 [facility] Last Admin: 02/09/18 07:32 Dose: 0.63 mg Levothyroxine Sodium (Synthroid) 75 mcg PO DAILY@0630 [facility] Last Admin: 02/08/18 07:23 Dose: 75 mcg Losartan Potassium (Cozaar) 50 mg PO DAILY [facility] Last Admin: 02/08/18 09:00 Dose: 50 mg Magnesium Oxide (Mag-Ox) 400 mg PO BID [facility] Last Admin: 02/08/18 17:12 Dose: 400 mg Metoprolol Tartrate (Lopressor) 50 mg PO Q12 [facility] Last Admin: 02/08/18 21:24 Dose: 50 mg Mirtazapine (Remeron) 7.5 mg PO HS [facility] Last Admin: 02/08/18 21:27 Dose: 7.5 mg Multivitamins/Minerals (Therapeutic-M Tab) 1 tab PO DAILY [facility] Last Admin: 02/08/18 09:02 Dose: 1 tab Nystatin (Nystop Topical Powder) 1 applic TOP TID [facility] Last Admin: 02/08/18 17:14 Dose: 1 applic Ondansetron HCl (Zofran Inj) 4 mg IVP Q6 PRN PRN Reason: Nausea/Vomiting Last Admin: 02/09/18 01:44 Dose: 4 mg Pantoprazole Sodium (Protonix Ec Tab) 40 mg PO DAILY [facility] Last Admin: 02/08/18 09:00 Dose: 40 mg - Labs Labs: 02/09/18 05:55 02/09/18 05:55
[2018-02-09] MEDS: Levothyroxine 75 MCG TAB PO SCH (08:01)
[2018-02-09 08:43] VITALS: O2SAT 99
--- NOTE | 2018-02-09 09:36 | CP.PCM.DIS ---
Addendum entered and electronically signed by Anette Sigala MD 02/09/18 16:05: Diagnosis (9) Stage 2 Pressure Ulcer -Present on admission Original Note: Provider - Provider Date of Admission: 02/05/18 11:01 Attending physician: Cristian Andraed MD Primary care physician: PMD-Dr Vazquez and Dr Luz Nunes Consults: Pulm-Dr Vazquez Heme Onc- Dr Luz Nunes Time Spent in preparation of Discharge (in minutes): 15 Diagnosis - Discharge Diagnosis (1) Marginal zone B-cell lymphoma Status: Chronic Comment: [facility], s/p chemo (2) MDS (myelodysplastic syndrome) Status: Chronic Comment: D[place]c [facility], s/p chemo (3) Pancytopenia Status: Chronic Priority: High Comment: Stable for D/C (4) Atrial fibrillation Status: Chronic Priority: High Comment: Continue home meds (5) COPD (chronic obstructive pulmonary disease) Status: Chronic Priority: High Comment: Continue home meds (6) Hypothyroid Status: Chronic Comment: continue home meds (7) Hearing loss Status: Acute Comment: Outpt Audiometry testing (8) HTN (hypertension) Status: Acute Comment: C/w home meds Hospital Course - Lab Results Lab Results: Most Recent Lab Values WBC 9.4 K/uL (4.8-10.8) 02/09/18 05:55 RBC 4.05 Mil/uL (3.80-5.20) 02/09/18 05:55 Hgb 11.8 g/dL (12.0-16.0) L 02/09/18 05:55 Hct 35.0 % (34.0-47.0) 02/09/18 05:55 MCV 86.4 fl (81.0-99.0) 02/09/18 05:55 MCH 29.1 pg (27.0-31.0) 02/09/18 05:55 MCHC 33.7 g/dL (33.0-37.0) 02/09/18 05:55 RDW 16.6 % (11.5-14.5) H 02/09/18 05:55 Plt Count 93 K/uL (130-400) L 02/09/18 05:55 MPV 9.3 fl (7.2-11.7) 02/09/18 05:55 Neut % (Auto) 61.2 % (50.0-75.0) 02/09/18 05:55 Lymph % (Auto) 36.0 % (20.0-40.0) 02/09/18 05:55 Carter % (Auto) 1.8 % (0.0-10.0) 02/09/18 05:55 Eos % (Auto) 0.2 % (0.0-4.0) 02/09/18 05:55 Baso % (Auto) 0.8 % (0.0-2.0) 02/09/18 05:55 Neut # (Auto) 5.8 K/uL (1.8-7.0) 02/09/18 05:55 Lymph # (Auto) 3.4 K/uL (1.0-4.3) 02/09/18 05:55 Carter # (Auto) 0.2 K/uL (0.0-0.8) 02/09/18 05:55 Eos # (Auto) 0.0 K/uL (0.0-0.7) 02/09/18 05:55 Baso # (Auto) 0.1 K/uL (0.0-0.2) 02/09/18 05:55 Sodium 132 mmol/l (132-148) 02/09/18 05:55 Potassium 4.1 MMOL/L (3.6-5.0) 02/09/18 05:55 Chloride 98 mmol/L (98-107) 02/09/18 05:55 Carbon Dioxide 26 mmol/L (22-30) 02/09/18 05:55 Anion Gap 12 (10-20) 02/09/18 05:55 BUN 21 mg/dl (7-17) H 02/09/18 05:55 Creatinine 0.8 mg/dl (0.7-1.2) 02/09/18 05:55 Est GFR ( Amer) > 60 02/09/18 05:55 Est GFR (Non-Af Amer) > 60 02/09/18 05:55 POC Glucose (mg/dL) 158 mg/dL (65-110) H 02/09/18 05:50 Random Glucose 140 mg/dL (65-105) H 02/09/18 05:55 Calcium 8.1 mg/dL (8.4-10.2) L 02/09/18 05:55 Total Bilirubin 0.6 mg/dl (0.2-1.3) 02/09/18 05:55 AST 22 U/L (14-36) 02/09/18 05:55 ALT 38 U/L (9-52) 02/09/18 05:55 Alkaline Phosphatase 173 U/L (38-126) H 02/09/18 05:55 Total Protein 4.1 G/DL (6.3-8.2) L 02/09/18 05:55 Albumin 2.1 g/dL (3.5-5.0) L 02/09/18 05:55 Globulin 2.1 gm/dL (2.2-3.9) L 02/09/18 05:55 Albumin/Globulin Ratio 1.0 (1.0-2.1) 02/09/18 05:55 Blood Type A POSITIVE 02/07/18 09:29 Antibody Screen Negative 02/07/18 09:29 Crossmatch See Detail 02/07/18 09:29 BBK History Checked Patient has bt 02/07/18 09:29 - Hospital Course Hospital Course: Pt is a 77-year-old woman with a past medical history of HTN, CAD s/p CABG, atrial fibrillation (not on anticoagulation due to thrombocytopenia), lymphoma, MDS s/p chemo with pancytopenia, [facility]AD[facility] admitted for 5 day chemotherapy infusion on 02/05, pt has a hx of becoming severely pancytopenic during chemotherapy. Hemeonc and pulm were on consult. Pt was transfused 2 units after HG dropped to 7.5 today hg is 11.8. Today pt doing well, pale and weak, tolerated chemo, pt is hemodynamically stable for discharge. - Date & Time of H&P Date of H&P: 02/05/18 Time of H&P: 11:13 Discharge Exam - Head Exam Head Exam: ATRAUMATIC, NORMAL INSPECTION, NORMOCEPHALIC - Eye Exam Eye Exam: EOMI, Normal appearance, PERRL - ENT Exam ENT Exam: Mucous Membranes Moist - Respiratory Exam Respiratory Exam: Decreased Breath Sounds, Rales, Rhonchi, Wheezes (expiratory), NORMAL BREATHING PATTERN - Cardiovascular Exam Cardiovascular Exam: RRR, +S1, +S2 - GI/Abdominal Exam GI & Abdominal Exam: Normal Bowel Sounds, Soft - Extremities Exam Extremities exam: normal inspection - Back Exam Additional comments: Stage 2 Decubitus Ulcer - Neurological Exam Neurological exam: Alert, Oriented x3 Discharge Plan - Follow Up Plan Condition: GOOD [facility] Patient education suggested?: Yes
[2018-02-09] MEDS: Magnesium Oxide 400 mg Tab UD PO SCH (11:09)
[2018-02-09] MEDS: Digoxin 125 mcg (0.125 mg) Tab PO SCH (11:09)
[2018-02-09] MEDS: Pantoprazole 40 mg EC Tab PO SCH (11:11)
[2018-02-09] MEDS: Multivitamin With Minerals Tab PO SCH (11:11)
[2018-02-09 11:12] VITALS: PULSE 77
[2018-02-09] MEDS: Petrolatum UD PAK TOP SCH (11:12)
[2018-02-09] MEDS: Cholecalciferol 1,000 INTLU TAB PO SCH (11:12)
--- NOTE | 2018-02-09 13:24 | CP.PCM.PN ---
Subjective - Date & Time of Evaluation Date of Evaluation: 02/09/18 Time of Evaluation: 13:21 - Subjective Subjective: Appears comfortable, asleep but easily arousable. Extremely hard of hearing, unchanged. Presently receiving her last dose of chemotherapy. Breathing comfortably without any use of accessory muscles. No dullness on percussion of the anterior thorax. Breath sounds are diminished but present equally in both lungs. Occasional sonorous rhonchi in dependent zones posteriorly. No audible wheezing. Occasional dry rales. Plan for return to [facility] facility this afternoon. Will require outpatient audiometry testing and possible hearing aids. Return for chemotherapy as per oncology. All medications will remain unchanged after discharge. Objective - Vital Signs/Intake and Output Vital Signs (last 24 hours): Temp Pulse Resp BP Pulse Ox 97.8 F 75 19 152/76 H 99 02/09/18 08:43 02/09/18 11:16 02/09/18 08:43 02/09/18 11:16 02/09/18 08:43 - Medications Medications: Current Medications Acetaminophen (Tylenol 325mg Tab) 650 mg PO Q6 PRN PRN Reason: Pain, Mild (1-3) Acetaminophen (Tylenol 325mg Tab) 650 mg PO Q6 PRN PRN Reason: Fever >100.4 F Atorvastatin Calcium (Lipitor) 10 mg PO HS [facility] Last Admin: 02/08/18 21:27 Dose: 10 mg Benzonatate (Tessalon Perles) 200 mg PO TID PRN PRN Reason: Cough Last Admin: 02/09/18 01:44 Dose: 200 mg Cholecalciferol (Vitamin D) 1,000 intlu PO DAILY [facility] Last Admin: 02/09/18 11:12 Dose: 1,000 intlu Digoxin (Digoxin) 0.125 mg PO DAILY [facility] Last Admin: 02/09/18 11:09 Dose: 0.125 mg Dimethicone (Proshield Plus Skin Protectant) 1 applic TOP Q8 PRN PRN Reason: Rash Docusate Sodium (Colace) 100 mg PO BID [facility] Last Admin: 02/09/18 11:08 Dose: 100 mg Emollient Ointment (Vaseline Oint) 1 pkt TOP BID [facility] Last Admin: 02/09/18 11:12 Dose: 1 pkt Epoetin Rolo (Procrit) 40,000 unit SC WED [facility] Last Admin: 02/07/18 08:26 Dose: 40,000 unit Hydralazine HCl (Apresoline) 10 mg PO TID [facility] Last Admin: 02/09/18 11:15 Dose: 10 mg Sodium Chloride (Sodium Chloride 0.9%) 500 mls @ 50 mls/hr IV .Q10H [facility] Last Admin: 02/08/18 21:51 Dose: Not Given Azacitidine 150 mg/ Sodium (Chloride) 100 mls @ 200 mls/hr IV ONCE RUIZ Stop: 02/09/18 17:00 Last Admin: 02/09/18 11:57 Dose: 200 mls/hr Ipratropium [place] (Atrovent) 0.5 mg IH RQID [facility] Last Admin: 02/09/18 11:47 Dose: 0.5 mg Levalbuterol HCl (Xopenex) 0.63 mg INH RQ8 [facility] Last Admin: 02/09/18 07:32 Dose: 0.63 mg Levothyroxine Sodium (Synthroid) 75 mcg PO DAILY@0630 [facility] Last Admin: 02/09/18 08:01 Dose: 75 mcg Losartan Potassium (Cozaar) 50 mg PO DAILY [facility] Last Admin: 02/09/18 11:16 Dose: 50 mg Magnesium Oxide (Mag-Ox) 400 mg PO BID [facility] Last Admin: 02/09/18 11:09 Dose: 400 mg Metoprolol Tartrate (Lopressor) 50 mg PO Q12 [facility] Last Admin: 02/09/18 11:16 Dose: 50 mg Mirtazapine (Remeron) 7.5 mg PO HS [facility] Last Admin: 02/08/18 21:27 Dose: 7.5 mg Multivitamins/Minerals (Therapeutic-M Tab) 1 tab PO DAILY [facility] Last Admin: 02/09/18 11:11 Dose: 1 tab Nystatin (Nystop Topical Powder) 1 applic TOP TID [facility] Last Admin: 02/09/18 11:10 Dose: 1 applic Ondansetron HCl (Zofran Inj) 4 mg IVP Q6 PRN PRN Reason: Nausea/Vomiting Last Admin: 02/09/18 01:44 Dose: 4 mg Pantoprazole Sodium (Protonix Ec Tab) 40 mg PO DAILY [facility] Last Admin: 02/09/18 11:11 Dose: 40 mg - Labs Labs: 02/09/18 05:55 02/09/18 05:55 Assessment and Plan (1) COPD (chronic obstructive pulmonary disease) Status: Chronic (2) Hearing loss Status: Acute (3) Marginal zone B-cell lymphoma Status: Chronic
[2018-02-09 16:00] VITALS: BP 158/80; PULSE 84; RESP 18; TEMP 98
--- NOTE | 2018-02-09 17:44 | PQF ---
PROVIDER RESPONSE TEXT: Patient has stage II sacral pressure ulcer present on admission REVIEWER QUERY TEXT: Pressure Ulcer Type The mandrel cleaner has documented that the patient has a stage II pressure ulcer of the sacrum Please specify the location, present on admission status and stage in your note if in agreement or other e xplanation Admitting RN: Pressure ulcer Present on admission Location and laterality of pressure ulcer(s): POA status of each pressure ulcer: -- Not present on admission -- Present on admission -- Other -- Clinically unable to determine -- Unknown Stage of each pressure ulcer (National Pressure Ulcer Advisory Panel definitions): -- Stage I: Intact skin with non-blanchable redness of a localized area -- Stage II: Partial thickness skin loss involving dermis with a shallow open ulcer or an open serum -filled blister -- Stage III: Full thickness skin loss involving damage or necrosis of subcutaneous tissue -- Stage IV: Full thickness skin loss with exposed bone, tendon or muscle -- Unstageable: Full thickness tissue loss in which the base of the ulcer is covered by slough and/o r eschar in the wound bed The patient's Clinical Indicators include: Admitting RN: Pressure ulcer Present on admission 02/07 Wound RN: Stage II pressure ulcer of the sacrum Query created by: Ludivina Bower on 02/09/2018 6:25 AM Electronically signed by: Cristian Andrade 02/09/2018 5:41 PM
== END 2018-02-09 16:20 | DRG 847 ==
LOC: H.MEDSURG1 11:01
PROVIDERS: ADMIT Hospitalist; ATTEND Hospitalist
PROC: 30233N1 Transfusion of Nonautologous Red Blood Cells into Peripheral Vein, Percutaneous Approach (ICD-10-PCS; principal; 2018-02-07)
PROC: 3E04305 Introduction of Other Antineoplastic into Central Vein, Percutaneous Approach (ICD-10-PCS; 2018-02-09)
DX: Z51.11 Encounter for antineoplastic chemotherapy (principal); C85.10 Unspecified B-cell lymphoma, unspecified site; E22.2 Syndrome of inappropriate secretion of antidiuretic hormone; J90 Pleural effusion, not elsewhere classified; I48.2 Chronic atrial fibrillation; D46.9 Myelodysplastic syndrome, unspecified; L89.152 Pressure ulcer of sacral region, stage 2; E03.9 Hypothyroidism, unspecified; E11.22 Type 2 diabetes mellitus with diabetic chronic kidney disease; E78.00 Pure hypercholesterolemia, unspecified; E78.5 Hyperlipidemia, unspecified; G47.33 Obstructive sleep apnea (adult) (pediatric); H91.91 Unspecified hearing loss, right ear; I12.9 Hypertensive chronic kidney disease with stage 1 through stage 4 chronic kidney disease, or unspecified chronic kidney disease; I25.10 Atherosclerotic heart disease of native coronary artery without angina pectoris; J44.9 Chronic obstructive pulmonary disease, unspecified; N18.3 Chronic kidney disease, stage 3 (moderate); Z87.01 Personal history of pneumonia (recurrent); Z87.891 Personal history of nicotine dependence; Z88.1 Allergy status to other antibiotic agents; Z95.1 Presence of aortocoronary bypass graft; Z95.5 Presence of coronary angioplasty implant and graft; Z96.653 Presence of artificial knee joint, bilateral; K29.70 Gastritis, unspecified, without bleeding; M19.90 Unspecified osteoarthritis, unspecified site; M54.9 Dorsalgia, unspecified; D64.9 Anemia, unspecified; D69.6 Thrombocytopenia, unspecified

== ENCOUNTER 2018-03-01 16:29 | Inpatient (IN) | payer MEDICARE, BC ==
[2018-03-01 16:31] VITALS: BMI 25.2
[2018-03-01 17:52] LABS: VENOUS BLOOD GAS BASE EXCESS -5.2 mmol/L (0.0-2.0); VENOUS BLOOD GAS PCO2 63 mmHg (40-60); VENOUS BLOOD GAS PO2 42 mm/Hg (30-55); VENOUS BLOOD PH 7.19 (7.32-7.43)
[2018-03-01 18:02] LABS: BASO # 0.1 K/uL (0.0-0.2); BASO % 0.5 % (0.0-2.0); HEMOGLOBIN 11.2 g/dL (12.0-16.0); LYMPH # 0.8 K/uL (1.0-4.3); LYMPH % 6.8 % (20.0-40.0); MEAN CELL VOLUME 90.2 fl (81.0-99.0); MEAN CORPUSCULAR HEMOGLOBIN 27.6 pg (27.0-31.0); MEAN CORPUSCULAR HGB CONC 30.6 g/dL (33.0-37.0); MEAN PLATELET VOLUME 10.8 fl (7.2-11.7); MONO # 0.1 K/uL (0.0-0.8); MONO % 1.1 % (0.0-10.0); NEUT # 10.3 K/uL (1.8-7.0); NEUT % 91.6 % (50.0-75.0); NRBC % 0.1 % (0.0-0.0); PLATELET COUNT 134 K/uL (130-400); RBC 4.05 Mil/uL (3.80-5.20); RED CELL DISTRIBUTION WIDTH 19.9 % (11.5-14.5); WHITE BLOOD COUNT 11.3 K/uL (4.8-10.8)
[2018-03-01 18:46] LABS: ALBUMIN 2.2 g/dL (3.5-5.0); CALCIUM 8.5 mg/dL (8.4-10.2)
--- NOTE | 2018-03-01 19:16 | ED PDOC ---
HPI: General Adult Time Seen by Provider: 03/01/18 16:51 Chief Complaint (Nursing): Cough, Cold, Congestion Chief Complaint (Provider): cough, SOB History Per: EMS History/Exam Limitations: clinical condition, physical impairment Current Symptoms Are (Timing): Still Present Recently: Hospitalized Additional Complaint(s): 77yo female with lymphoma presents from [facility] where she reportedly signed AMA after being admitted for pneumonia. Patient is hard of hearing, poor historian. History limited on arrival. Past Medical History Reviewed: Historical Data, Nursing Documentation, Vital Signs Vital Signs: Last Vital Signs Temp 98.2 F 03/01/18 16:33 Pulse 64 03/01/18 17:35 Resp 20 03/01/18 17:34 BP 145/74 03/01/18 16:33 Pulse Ox 96 03/01/18 16:33 - Medical History PMH: Anemia, Atrial Fibrillation, CAD, CHF, COPD, Diabetes, Gastritis, HTN, Hypercholesterolemia, Hypothyroidism, Malignancy, Peripheral Edema, Pneumonia, Chronic Kidney Disease, Sleep Apnea Denies: HIV - Surgical History Surgical History: CABG (2000), Coronary Stent (PCI 2007 and 2010) - Family History Family History: States: Unknown Family Hx - Living Arrangements Living Arrangements: Other - Social History Current smoker - smoking cessation education provided: No - Home Medications Home Medications: Ambulatory Orders Medication Instructions Recorded RX: Cholecalciferol [Vitamin D 1,000 unit PO DAILY 10/09/17 1000 IU] RX: Multivitamin with Minerals 1 tab PO DAILY 10/09/17 [Hair, Skin and Nails] RX: Metoprolol Tartrate [Lopressor] 50 mg PO Q12 tab 10/12/17 RX: Acetaminophen [Tylenol 650 mg 650 mg DE Q6 PRN sup 11/24/17 Supp] RX: Dimethicone [Proshield Plus 1 applic TOP Q8 PRN gel 11/24/17 Skin Protectant] RX: Epoetin Rolo [Procrit] 40,000 unit SC WED ml 11/24/17 RX: Ipratropium 0.02% [Atrovent] 0.5 mg IH RQID neb 11/24/17 RX: Lactobacillus Acidophilus 1 cap PO BID cap 11/24/17 [Bacid Acidophilus] RX: Levalbuterol [Xopenex] 0.63 mg INH RQ4 PRN neb 11/24/17 RX: Petrolatum [Vaseline Oint] 1 pkt TOP BID fp 11/24/17 RX: Atorvastatin [Lipitor] 10 mg PO HS 12/04/17 RX: Benzonatate 200 mg PO TID PRN 12/04/17 RX: Levothyroxine [Synthroid] 75 mcg PO DAILY@0630 12/04/17 RX: Magnesium Oxide [Magox 400] 400 mg PO BID 12/04/17 RX: Digoxin 0.125 mg PO DAILY tab 12/23/17 RX: Mirtazapine [Remeron] 7.5 mg PO HS tab 12/23/17 RX: Sodium Chloride for Inhalation 4 ml IH ONCE PRN vial.neb 12/23/17 [Sodium Chloride 3% for Inhalation] RX: Docusate [Colace] 100 mg PO BID cap 01/15/18 RX: Losartan [Cozaar] 50 mg PO DAILY tab 01/15/18 RX: Nystatin [Nystop Topical 1 applic TOP TID bottle 01/15/18 Powder] RX: Pantoprazole [Protonix EC Tab] 40 mg PO DAILY ect 01/15/18 RX: hydrALAZINE [Apresoline] 10 mg PO TID #1 tab 01/15/18 - Allergies Allergies/Adverse Reactions: Allergies Allergy/AdvReac Type Severity Reaction Status Date / Time vancomycin AdvReac Intermediate NAUSEA Verified 03/01/18 16:33 Review of Systems Review Of Systems: ROS cannot be obtained secondary to pt's inabilty to answer questions. (poor historian) Physical Exam - Reviewed Nursing Documentation Reviewed: Yes Vital Signs Reviewed: Yes - Physical Exam Appears: Positive for: Uncomfortable (mild resp distress but awake, hard of hearing) Head Exam: Positive for: ATRAUMATIC, NORMAL INSPECTION, NORMOCEPHALIC Skin: Positive for: Warm, Pallor Eye Exam: Positive for: EOMI, Normal appearance, PERRL ENT: Positive for: Normal ENT Inspection Neck: Positive for: Normal, Painless ROM Cardiovascular/Chest: Positive for: Regular Rate, Rhythm Respiratory: Positive for: Decreased Breath Sounds, Rhonchi, Respiratory Distress Pulses-Radial (L): 2+ Pulses-Radial (R): 2+ Gastrointestinal/Abdominal: Positive for: Soft. Negative for: Tenderness Back: Positive for: Other (advanced sacral decubiti with extensive erythema to groin and lower back/buttocks) Extremity: Positive for: Pedal Edema, Swelling Neurologic/Psych: Positive for: Alert, Other (confused but awake and alert, equal stength). Negative for: Motor/Sensory Deficits - Laboratory Results Result Diagrams: 03/07/18 04:20 03/07/18 04:20 - ECG O2 Sat by Pulse Oximetry: 96 Medical Decision Making Medical Decision Making: Dr Suggs (family member) paged to inform, obtain recent MAR/ antibiotic administration Labs reveal CO2 retention and resp acidosis, Vapotherm initiated w some improvement of effort lactate normal Mild leukocytosis Mild elev BUN/Anesthesiologist Assistant. cultures obtained d/w Dr Suggs recommends meropenum and admit hospitalist Disposition - Clinical Impression Clinical Impression: Pneumonia, Sacral decubitus ulcer, Respiratory failure - Patient ED Disposition Is Patient to be Admitted: Yes Counseled Patient/Family Regarding: Studies Performed, Diagnosis - Disposition Disposition Time: 19:05 Condition: FAIR - Pt Status Changed To: Hospital Disposition Of: Inpatient - Admit Certification Admit to Inpatient:: After my assessment, the patient will require hospitalization for at least two midnights. This is because of the severity of symptoms shown, intensity of services needed, and/or the medical risk in this patient being treated as an outpatient. - POA Present On Arrival: Cath Associated UTI, Pressure Ulcer
[2018-03-01 19:26] LABS: TROPONIN I 0.025 ng/mL (0.00-0.120)
[2018-03-01] MEDS ORDERED: Sodium Chloride 0.9% 1,000 ML IV STA (19:26)
[2018-03-01 19:33] LABS: BANDS 1 % (0-2); LYMPHOCYTE 5 % (20-50); METAMYELOCYTE 1 % (0-0); MONOCYTE 3 % (0-10); NEUTROPHIL 90 % (42-75); TOTAL CELLS COUNTED 100
[2018-03-01 19:36] LABS: SQUAMOUS EPITHIAL 1 /hpf (0-5); URINE BACTERIA RARE (<OCC); URINE BILIRUBIN NEGATIVE (NEGATIVE); URINE BLOOD MODERATE (NEGATIVE); URINE CLARITY CLOUDY (Clear); URINE COLOR AMBER (YELLOW); URINE GLUCOSE (UA) NEG (Normal); URINE LEUKOCYTE ESTERASE TRACE Leu/uL (Negative); URINE PROTEIN 30 mg/dL (NEGATIVE); URINE UROBILINOGEN 0.2-1.0 mg/dL (0.2-1.0)
[2018-03-01 19:37] LABS: PLATELET ESTIMATE NORMAL (NORMAL)
[2018-03-01 19:38] LABS: ANISOCYTOSIS SLIGHT; HYPOCHROMIC SLIGHT; OVALOCYTES SLIGHT
[2018-03-01 19:39] LABS: BURR CELLS SLIGHT; SCHISTOCYTES SLIGHT; TOXIC GRANULATION PRESENT
[2018-03-01] MEDS ORDERED: Levalbuterol 0.63 MG/3 ML Inhal Soln UD INH PRN (19:56)
[2018-03-01] MEDS ORDERED: BENZONATATE 200 MG PO PRN (19:56)
[2018-03-01] MEDS ORDERED: Ipratropium 0.02% Inhal Soln (0.5 mg/2.5 ml) UD IH ONE (20:38)
[2018-03-01] MEDS: Ipratropium 0.02% Inhal Soln (0.5 mg/2.5 ml) UD IH SCH (20:40)
--- NOTE | 2018-03-01 21:03 | CP.PCM.HP ---
<Harpreet Wells - Last Filed: 03/02/18 00:04> History of Present Illness - History of Present Illness History of Present Illness: 77 y/o F with a past medical history of HTN, CAD s/p CABG, atrial fibrillation (not on anticoagulation due to thrombocytopenia), B cell lymphoma, MDS s/p chemo with pancytopenia , SIADH admitted to [facility] for evaluation and treatment of b/l pneumonia and possible c.diff. - Patient was seen and examined with Dr. Browning. No family members at bedside. Patient seems confused, doesn't hear, poor historian and limited history on arrival. - History obtained from ER and medical records - Will speak with family members when they come or in the morning. Allergies ; vancomycin PMH :HTN CAD CKD stage III, chronic anemia, B cell lymphoma, MDS, pancytopenia, Chronic Afib, COPD Medications: See med rec Surgery: bilateral knee replacement , PCI Family history ;None Social History ;ex smoker , denies ETOH or drug abuse , recently not ambulating due to weakness ROS : unable to hear or answer PMD : Dr Vazquez and Dr Luz Nunes Code status: Full code ER course: VS: Afebrile, HR 64, RR 20, 145/74, Spo2 96 CBC: wbc 11.3 VBG: PH 7.19, co2 retention CMP: BUN/Cr 35/2.0 UA: Neg nit, trace leuk ER d/w Dr Suggs recommends meropenum and admit hospitalist Bcx S/p Meropenum IVF Present on Admission - Present on Admission Any Indicators Present on Admission: Yes Decubitus Ulcer Present: Yes Past Patient History - Infectious Disease Hx of Infectious Diseases: None - Tetanus Immunizations Tetanus Immunization: Unknown - Past Medical History & Family History Past Medical History?: Yes - Past Social History Smoking Status: Former Smoker - CARDIAC Hx Atrial Fibrillation: Yes Hx Congestive Heart Failure: Yes Hx Hypercholesterolemia: Yes Hx Hypertension: Yes Hx Peripheral Edema: Yes - PULMONARY Hx Chronic Obstructive Pulmonary Disease (COPD): Yes Hx Pneumonia: Yes Hx Sleep Apnea: Yes - NEUROLOGICAL Hx Neurological Disorder: No - HEENT Hx HEENT Problems: Yes (Hearing loss in the right ear.) Other/Comment: Use Eyeglasses - RENAL Hx Chronic Kidney Disease: Yes - ENDOCRINE/METABOLIC Hx Hypothyroidism: Yes - HEMATOLOGICAL/ONCOLOGICAL Hx Anemia: Yes Hx Human Immunodeficiency Virus (HIV): No - INTEGUMENTARY Hx Dermatological Problems: No - MUSCULOSKELETAL/RHEUMATOLOGICAL Hx Back Pain: Yes Hx Degenerative Joint Disease: Yes Hx Falls: Yes Hx Herniated Disk: Yes - GASTROINTESTINAL Hx Gastritis: Yes - GENITOURINARY/GYNECOLOGICAL Hx Incontinence: Yes - PSYCHIATRIC Hx Psychophysiologic Disorder: No Hx Substance Use: No - SURGICAL HISTORY Hx Coronary Artery Bypass Graft: Yes (2000) Hx Coronary Stent: Yes (PCI 2007 and 2010) - ANESTHESIA Hx Anesthesia: Yes Hx Anesthesia Reactions: No Hx Malignant Hyperthermia: No Meds Allergies/Adverse Reactions: Allergies Allergy/AdvReac Type Severity Reaction Status Date / Time vancomycin AdvReac Intermediate NAUSEA Verified 03/01/18 16:33 Physical Exam - Constitutional Appears: Other - Head Exam Head Exam: ATRAUMATIC, NORMAL INSPECTION - Eye Exam Eye Exam: Normal appearance, PERRL Pupil Exam: NORMAL ACCOMODATION - ENT Exam ENT Exam: Mucous Membranes Moist - Neck Exam Neck exam: Positive for: Normal Inspection - Respiratory Exam Respiratory Exam: Decreased Breath Sounds, Rhonchi, Respiratory Distress (mild). absent: Chest Wall Tenderness Additional comments: Rt Upper chest chemo port - Cardiovascular Exam Cardiovascular Exam: REGULAR RHYTHM, +S1, +S2 - GI/Abdominal Exam GI & Abdominal Exam: Normal Bowel Sounds, Soft. absent: Tenderness - Extremities Exam Extremities exam: Positive for: pedal edema (mild) - Back Exam Additional comments: advanced sacral decubiti with extensive erythema to groin and lower back/buttocks - Neurological Exam Neurological exam: Alert Additional comments: awake but confused Hard Hearing equal strength in b/l UEs/LEs - Psychiatric Exam Psychiatric exam: Normal Affect - Skin Skin Exam: Normal Color Results - Vital Signs Recent Vital Signs: Last Vital Signs Temp 98.2 F 03/01/18 16:33 Pulse 64 03/01/18 17:35 Resp 28 H 03/01/18 20:44 BP 145/74 03/01/18 16:33 Pulse Ox 96 03/01/18 19:27 - Labs Result Diagrams: 03/01/18 17:30 03/01/18 18:15 Labs: Laboratory Results - last 24 hr 03/01/18 03/01/18 03/01/18 17:30 17:45 18:15 WBC 11.3 H RBC 4.05 Hgb 11.2 L Hct 36.5 MCV 90.2 D MCH 27.6 MCHC 30.6 L RDW 19.9 H Plt Count 134 MPV 10.8 Neut % (Auto) 91.6 H Lymph % (Auto) 6.8 L Campbell % (Auto) 1.1 Eos % (Auto) 0.0 Baso % (Auto) 0.5 Neut # (Auto) 10.3 H Lymph # (Auto) 0.8 L Campbell # (Auto) 0.1 Eos # (Auto) 0.0 Baso # (Auto) 0.1 Neutrophils % (Manual) 90 H Band Neutrophils % 1 Lymphocytes % (Manual) 5 L Monocytes % (Manual) 3 Metamyelocytes % 1 H Toxic Granulation Present Platelet Estimate Normal Hypochromasia (manual) Slight Anisocytosis (manual) Slight Ovalocytes Slight Putney Cells Slight Schistocytes Slight pO2 42 VBG pH 7.19 L* VBG pCO2 63 H VBG HCO3 20.0 VBG Total CO2 26.0 VBG O2 Sat (Calc) 84.1 H VBG Base Excess -5.2 L VBG Potassium 3.8 Sodium 131.0 L 133 Chloride 100.0 103 Glucose 221 H Lactate 0.8 FiO2 21.0 Crit Value Called To Dr stepan flores Crit Value Called By Celia smith manufacturing sr engineer Crit Value Read Back Y Blood Gas Notified Time 1752 Potassium 3.9 Carbon Dioxide 22 Anion Gap 12 BUN 35 H Creatinine 2.0 H Est GFR ( Amer) 29 Est GFR (Non-Af Amer) 24 Random Glucose 212 H Calcium 8.5 Total Bilirubin 1.2 AST 15 ALT 39 Alkaline Phosphatase 139 H Troponin I 0.0250 Total Protein 4.2 L Albumin 2.2 L Globulin 2.1 L Albumin/Globulin Ratio 1.0 Venous Blood Potassium 3.8 Urine Color Urine Clarity Urine pH Ur Specific [place] Urine Protein Urine Glucose (UA) Urine Ketones Urine Blood Urine Nitrate Urine Bilirubin Urine Urobilinogen Ur Leukocyte Esterase Urine RBC (Auto) Urine Microscopic WBC Ur Squamous Epith Cells Urine Bacteria 03/01/18 18:58 WBC RBC Hgb Hct MCV MCH MCHC RDW Plt Count MPV Neut % (Auto) Lymph % (Auto) Campbell % (Auto) Eos % (Auto) Baso % (Auto) Neut # (Auto) Lymph # (Auto) Campbell # (Auto) Eos # (Auto) Baso # (Auto) Neutrophils % (Manual) Band Neutrophils % Lymphocytes % (Manual) Monocytes % (Manual) Metamyelocytes % Toxic Granulation Platelet Estimate Hypochromasia (manual) Anisocytosis (manual) Ovalocytes Putney Cells Schistocytes pO2 VBG pH VBG pCO2 VBG HCO3 VBG Total CO2 VBG O2 Sat (Calc) VBG Base Excess VBG Potassium Sodium Chloride Glucose Lactate FiO2 Crit Value Called To Crit Value Called By Crit Value Read Back Blood Gas Notified Time Potassium Carbon Dioxide Anion Gap BUN Creatinine Est GFR ( Amer) Est GFR (Non-Af Amer) Random Glucose Calcium Total Bilirubin AST ALT Alkaline Phosphatase Troponin I Total Protein Albumin Globulin Albumin/Globulin Ratio Venous Blood Potassium Urine Color Carola Urine Clarity Cloudy Urine pH 5.0 Ur Specific [place] 1.024 Urine Protein 30 Urine Glucose (UA) Neg Urine Ketones Negative Urine Blood Moderate Urine Nitrate Negative Urine Bilirubin Negative Urine Urobilinogen 0.2-1.0 Ur Leukocyte Esterase Trace Urine RBC (Auto) 17 H Urine Microscopic WBC 11 H Ur Squamous Epith Cells 1 Urine Bacteria Rare Assessment & Plan - Assessment and Plan (Free Text) Assessment: A/P: 77 y/o F with a past medical history of HTN, CAD s/p CABG, atrial fibrillation (not on anticoagulation due to thrombocytopenia), B cell lymphoma, MDS s/p chemo with pancytopenia , SIADH admitted to [facility] for evaluation and treatment of b/l pneumonia and possible c.diff. B/l Pneumonia - Afebrile, WBC 11 - Follow up official CXR - Consult ID, Dr. Suggs, follow up further recommendations - Pulmonary consult - Dr. Vazquez, follow up recommendations - Meropene, 1gm Q8H, day#0 Possible C.diff - Follow up [facility] C.diff - Vanco Allergy B-cell lymphoma / MDS (myelodysplastic syndrome) - On chemo - Dr De Dios on hematology/oncology consult, follow up recommendations History of pancytopenia sec to Chemotherapy - WBC 11.3 today, possibly due to active infection vs medications - C/w Procrit Chronic A-fib - on Metoprolol 50mg Q12, Digoxin, hydrazaline, Cozaar - no anticoagulation due to thrombocytopenia (Stable) COPD chronic - continue Atrovent and Xopenex - Tessala Perles - Incentive [place] - Pulmonary consult - Dr. Vazquez, follow up recommendations Hyponatremia, sec to SIADH - stable - F/u CMP in AM Hypothyroid - Chronic, controlled - On Levothyroxine 75mcg daily CKD stage III - stable Hypertension / CAD - Resumed home meds - controlled Hearing loss - unclear etiology - possible medication induced or age related - out pt follow up DVT PPX - SCD for now, Hx of thrombocytopenia <BrowningWilliam petitAndres D - Last Filed: 03/02/18 10:45> Results - Vital Signs Recent Vital Signs: Last Vital Signs Temp 97.6 F 03/02/18 07:50 Pulse 55 L 03/02/18 07:50 Resp 22 03/02/18 08:03 BP 149/65 03/02/18 07:50 Pulse Ox 100 03/02/18 07:50 - Labs Result Diagrams: 03/02/18 05:30 03/02/18 05:30 Labs: Laboratory Results - last 24 hr 03/01/18 03/01/18 03/01/18 17:15 17:30 17:45 WBC 11.3 H RBC 4.05 Hgb 11.2 L Hct 36.5 MCV 90.2 D MCH 27.6 MCHC 30.6 L RDW 19.9 H Plt Count 134 MPV 10.8 Neut % (Auto) 91.6 H Lymph % (Auto) 6.8 L Campbell % (Auto) 1.1 Eos % (Auto) 0.0 Baso % (Auto) 0.5 Neut # (Auto) 10.3 H Lymph # (Auto) 0.8 L Campbell # (Auto) 0.1 Eos # (Auto) 0.0 Baso # (Auto) 0.1 Neutrophils % (Manual) 90 H Band Neutrophils % 1 Lymphocytes % (Manual) 5 L Monocytes % (Manual) 3 Metamyelocytes % 1 H Toxic Granulation Present Platelet Estimate Normal Hypochromasia (manual) Slight Anisocytosis (manual) Slight Ovalocytes Slight Sarah Cells Slight Schistocytes Slight pO2 42 VBG pH 7.19 L* VBG pCO2 63 H VBG HCO3 20.0 VBG Total CO2 26.0 VBG O2 Sat (Calc) 84.1 H VBG Base Excess -5.2 L VBG Potassium 3.8 Sodium 131.0 L Chloride 100.0 Glucose 221 H Lactate 0.8 FiO2 21.0 Crit Value Called To Dr stepan flores Crit Value Called By Celia smith manufacturing sr engineer Crit Value Read Back Y Blood Gas Notified Time 1752 Potassium Carbon Dioxide Anion Gap BUN Creatinine Est GFR ( Amer) Est GFR (Non-Af Amer) POC Glucose (mg/dL) 190 H Random Glucose Calcium Magnesium Total Bilirubin AST ALT Alkaline Phosphatase Troponin I Total Protein Albumin Globulin Albumin/Globulin Ratio Venous Blood Potassium 3.8 Urine Color Urine Clarity Urine pH Ur Specific [place] Urine Protein Urine Glucose (UA) Urine Ketones Urine Blood Urine Nitrate Urine Bilirubin Urine Urobilinogen Ur Leukocyte Esterase Urine RBC (Auto) Urine Microscopic WBC Ur Squamous Epith Cells Urine Bacteria C. difficile Ag & Toxin 03/01/18 03/01/18 03/02/18 18:15 18:58 02:15 WBC RBC Hgb Hct MCV MCH MCHC RDW Plt Count MPV Neut % (Auto) Lymph % (Auto) Campbell % (Auto) Eos % (Auto) Baso % (Auto) Neut # (Auto) Lymph # (Auto) Campbell # (Auto) Eos # (Auto) Baso # (Auto) Neutrophils % (Manual) Band Neutrophils % Lymphocytes % (Manual) Monocytes % (Manual) Metamyelocytes % Toxic Granulation Platelet Estimate Hypochromasia (manual) Anisocytosis (manual) Ovalocytes Sarah Cells Schistocytes pO2 VBG pH VBG pCO2 VBG HCO3 VBG Total CO2 VBG O2 Sat (Calc) VBG Base Excess VBG Potassium Sodium 133 Chloride 103 Glucose Lactate FiO2 Crit Value Called To Crit Value Called By Crit Value Read Back Blood Gas Notified Time Potassium 3.9 Carbon Dioxide 22 Anion Gap 12 BUN 35 H Creatinine 2.0 H Est GFR ( Amer) 29 Est GFR (Non-Af Amer) 24 POC Glucose (mg/dL) Random Glucose 212 H Calcium 8.5 Magnesium Total Bilirubin 1.2 AST 15 ALT 39 Alkaline Phosphatase 139 H Troponin I 0.0250 Total Protein 4.2 L Albumin 2.2 L Globulin 2.1 L Albumin/Globulin Ratio 1.0 Venous Blood Potassium Urine Color Carola Urine Clarity Cloudy Urine pH 5.0 Ur Specific [place] 1.024 Urine Protein 30 Urine Glucose (UA) Neg Urine Ketones Negative Urine Blood Moderate Urine Nitrate Negative Urine Bilirubin Negative Urine Urobilinogen 0.2-1.0 Ur Leukocyte Esterase Trace Urine RBC (Auto) 17 H Urine Microscopic WBC 11 H Ur Squamous Epith Cells 1 Urine Bacteria Rare C. difficile Ag & Toxin Negative 03/02/18 03/02/18 03/02/18 05:30 05:30 05:30 WBC 13.8 H RBC 3.79 L Hgb 10.5 L Hct 34.0 MCV 89.8 MCH 27.7 MCHC 30.8 L RDW 20.1 H Plt Count 160 MPV 11.3 Neut % (Auto) 87.9 H Lymph % (Auto) 9.8 L Campbell % (Auto) 1.5 Eos % (Auto) 0.1 Baso % (Auto) 0.7 Neut # (Auto) 12.1 H Lymph # (Auto) 1.3 Campbell # (Auto) 0.2 Eos # (Auto) 0.0 Baso # (Auto) 0.1 Neutrophils % (Manual) Band Neutrophils % Lymphocytes % (Manual) Monocytes % (Manual) Metamyelocytes % Toxic Granulation Platelet Estimate Hypochromasia (manual) Anisocytosis (manual) Ovalocytes [place] Cells Schistocytes pO2 VBG pH VBG pCO2 VBG HCO3 VBG Total CO2 VBG O2 Sat (Calc) VBG Base Excess VBG Potassium Sodium 133 Chloride 107 Glucose Lactate FiO2 Crit Value Called To Crit Value Called By Crit Value Read Back Blood Gas Notified Time Potassium 3.7 Carbon Dioxide 21 L Anion Gap 9 L BUN 34 H Creatinine 2.0 H Est GFR ( Amer) 29 Est GFR (Non-Af Amer) 24 POC Glucose (mg/dL) Random Glucose 174 H Calcium 8.2 L Magnesium 1.2 L Total Bilirubin AST ALT Alkaline Phosphatase Troponin I Total Protein Albumin Globulin Albumin/Globulin Ratio Venous Blood Potassium Urine Color Urine Clarity Urine pH Ur Specific [place] Urine Protein Urine Glucose (UA) Urine Ketones Urine Blood Urine Nitrate Urine Bilirubin Urine Urobilinogen Ur Leukocyte Esterase Urine RBC (Auto) Urine Microscopic WBC Ur Squamous Epith Cells Urine Bacteria C. difficile Ag & Toxin Attending/Attestation - Attestation I have personally seen and examined this patient.: Yes I have fully participated in the care of the patient.: Yes I have reviewed all pertinent clinical information: Yes Notes (Text): 03/02/18 10:44 Patient seen and examined with resident. Case discussed and agreed with assessment and plan of management.
[2018-03-02] MEDS: Meropenem 1 GM in Sodium Chloride 0.9% 100 ML IVPB SCH ×2 (02:01→10:42)
[2018-03-02] MEDS: Proshield Plus GEL TOP PRN (04:10)
[2018-03-02 05:54] LABS: BASO # 0.1 K/uL (0.0-0.2); BASO % 0.7 % (0.0-2.0); EOS % 0.1 % (0.0-4.0); HEMOGLOBIN 10.5 g/dL (12.0-16.0); LYMPH # 1.3 K/uL (1.0-4.3); LYMPH % 9.8 % (20.0-40.0); MEAN CELL VOLUME 89.8 fl (81.0-99.0); MEAN CORPUSCULAR HEMOGLOBIN 27.7 pg (27.0-31.0); MEAN CORPUSCULAR HGB CONC 30.8 g/dL (33.0-37.0); MEAN PLATELET VOLUME 11.3 fl (7.2-11.7); MONO # 0.2 K/uL (0.0-0.8); MONO % 1.5 % (0.0-10.0); NEUT # 12.1 K/uL (1.8-7.0); NEUT % 87.9 % (50.0-75.0); NRBC % 0.1 % (0.0-0.0); RBC 3.79 Mil/uL (3.80-5.20); RED CELL DISTRIBUTION WIDTH 20.1 % (11.5-14.5); WHITE BLOOD COUNT 13.8 K/uL (4.8-10.8)
[2018-03-02 06:24] LABS: CALCIUM 8.2 mg/dL (8.4-10.2)
[2018-03-02] MEDS ORDERED: Levothyroxine 75 MCG TAB PO SCH (06:30)
[2018-03-02] MEDS ORDERED: Sodium Chloride 0.9% 1,000 ML IV SCH (07:00)
[2018-03-02] MEDS: Ipratropium 0.02% Inhal Soln (0.5 mg/2.5 ml) UD IH SCH ×4 (08:03→19:37)
[2018-03-02] MEDS ORDERED: Influenza Vaccine 60 MCG/0.5 ML SYR (3 yr & up) IM ONE (08:34)
--- NOTE | 2018-03-02 08:52 | CARD ---
APPROVED REPORT Date of service: 03/01/2018 EKG Measurement Heart [id number] <Conclusion> Atrial fibrillation Left axis deviation Inferior infarct, age undetermined Abnormal ECG
[2018-03-02] MEDS: Sodium Chloride 0.9% 1,000 ML IV SCH ×3 (08:55→21:39)
[2018-03-02] MEDS ORDERED: Digoxin 125 mcg (0.125 mg) Tab PO SCH (09:00)
[2018-03-02] MEDS ORDERED: Pantoprazole 40 mg EC Tab PO SCH (09:00)
--- NOTE | 2018-03-02 09:00 | CP.PCM.CON ---
History of Present Illness - History of Present Illness History of Present Illness: This 77 year old female is known to me from prior hospitalizations as well as the outpatient setting. She has a long-standing medical history of chronic atrial fibrillation as well as coronary artery disease, COPD, hyperlipidemia, hypertension, type 2 diabetes mellitus, congestive cardiac failure, MDS and recently B-cell lymphoma. She had been receiving chemotherapy at this institution and has been a resident of a long-term facility between treatments. She had recently been hospitalized at [facility] because of pneu monia, and at the family's request has been transferred to this institution for continued care. She has developed significant sacral decubiti which is a major concern of the family. She had been treated for pneumonia with pancytopenia at this institution in October of this year. Her surgical history includes bilateral knee replacements in the remote past as well as coronary artery bypass. Past Patient History - Infectious Disease Hx of Infectious Diseases: None - Tetanus Immunizations Tetanus Immunization: Unknown - Past Medical History & Family History Past Medical History?: Yes - Past Social History Smoking Status: Former Smoker Chewing Tobacco Use: No Cigar Use: No Alcohol: None Drugs: Denies Home Situation {Lives}: Long Term - CARDIAC Hx Atrial Fibrillation: Yes Hx Congestive Heart Failure: Yes Hx Hypercholesterolemia: Yes Hx Hypertension: Yes Hx Peripheral Edema: Yes - PULMONARY Hx Chronic Obstructive Pulmonary Disease (COPD): Yes Hx Pneumonia: Yes Hx Sleep Apnea: Yes - NEUROLOGICAL Hx Dementia: Yes - HEENT Hx Deafness: Yes (Right ) - RENAL Hx Chronic Kidney Disease: Yes - ENDOCRINE/METABOLIC Hx Diabetes Mellitus Type 2: Yes Hx Hypothyroidism: Yes - HEMATOLOGICAL/ONCOLOGICAL Hx Anemia: Yes Hx Human Immunodeficiency Virus (HIV): No - INTEGUMENTARY Other/Comment: sacral decubiti - MUSCULOSKELETAL/RHEUMATOLOGICAL Hx Back Pain: Yes Hx Degenerative Joint Disease: Yes Hx Falls: Yes Hx Herniated Disk: Yes - GASTROINTESTINAL Hx Gastritis: Yes - GENITOURINARY/GYNECOLOGICAL Hx Incontinence: Yes - PSYCHIATRIC Hx Psychophysiologic Disorder: No Hx Substance Use: No - SURGICAL HISTORY Hx Coronary Artery Bypass Graft: Yes (2000) Hx Coronary Stent: Yes (PCI 2007 and 2010) Hx Orthopedic Surgery: Yes (Bilateral Knee Resplacements) - ANESTHESIA Hx Anesthesia: Yes Hx Anesthesia Reactions: No Hx Malignant Hyperthermia: No Meds Allergies/Adverse Reactions: Allergies Allergy/AdvReac Type Severity Reaction Status Date / Time vancomycin AdvReac Intermediate NAUSEA Verified 03/01/18 16:33 - Medications Medications: Current Medications Acetaminophen (Tylenol 325mg Tab) 650 mg PO Q6 PRN PRN Reason: Fever >100.4 F Atorvastatin Calcium (Lipitor) 10 mg PO HS [facility] Last Admin: 03/01/18 22:21 Dose: 10 mg Benzonatate (Tessalon Perles) 200 mg PO TID PRN PRN Reason: Cough Cholecalciferol (Vitamin D) 1,000 intlu PO DAILY [facility] Digoxin (Digoxin) 0.125 mg PO DAILY [facility] Dimethicone (Proshield Plus Skin Protectant) 1 applic TOP Q8 PRN PRN Reason: Rash Last Admin: 03/02/18 04:10 Dose: 1 applic Emollient Ointment (Vaseline Oint) 1 pkt TOP BID [facility] Epoetin Rolo (Procrit) 40,000 unit SC WED [facility] Hydralazine HCl (Apresoline) 10 mg PO TID [facility] Meropenem 1 gm/ Sodium (Chloride) 100 mls @ 100 mls/hr IVPB Q8 [facility]; Protocol Last Admin: 03/02/18 02:01 Dose: 100 mls/hr Sodium Chloride (Sodium Chloride 0.9%) 1,000 mls @ 125 mls/hr IV .Q8H [facility] Stop: 03/03/18 06:48 Last Admin: 03/02/18 08:55 Dose: Not Given Ipratropium [place] (Atrovent) 0.5 mg IH RQID [facility] Last Admin: 03/02/18 08:03 Dose: 0.5 mg Lactobacillus Acidophilus (Bacid Acidophilus) 1 cap PO BID [facility] Levalbuterol HCl (Xopenex) 0.63 mg INH RQ4 PRN PRN Reason: Shortness of Breath Levothyroxine Sodium (Synthroid) 75 mcg PO DAILY@0630 [facility] Last Admin: 03/02/18 06:14 Dose: 75 mcg Losartan Potassium (Cozaar) 50 mg PO DAILY [facility] Metoprolol Tartrate (Lopressor) 50 mg PO Q12 [facility] Last Admin: 03/01/18 21:16 Dose: 50 mg Mirtazapine (Remeron) 7.5 mg PO HS [facility] Last Admin: 03/01/18 22:21 Dose: 7.5 mg Nystatin (Nystop Topical Powder) 1 applic TOP TID [facility] Pantoprazole Sodium (Protonix Ec Tab) 40 mg PO DAILY [facility] Physical Exam - Additional Findings Additional findings: Asleep initially but easily awakened. She did respond verbally upon awakening and appeared oriented, but quickly fell back to sleep. She appeared normocephalic/atraumatic. Conjunctivae were slightly pale, no scleral icterus. Nasal passages are patent bilaterally. The pharynx is pink and the mucous membranes are moist without exudate. The neck was supple and trachea was midline. No cervical or supraclavicular adenopathy palpable. No visible neck vein distention. No dullness on percussion of the anterior thorax. The subcutaneous emphysema. Breath sounds were diminished bilaterally with bronchial breathing noted posteriorly, more so left than right. No audible wheezing. Sonorous rhonchi in dependent zones of both lungs. Heart sounds are distant and the rhythm appeared regular, mildly bradycardic. Snyder the abdomen was soft and bowel sounds were present. Mild to moderate dependent edema was noted both lower extremities posteriorly. No cyanosis. Marked erythema on the inner thighs and groin. Results - Vital Signs Recent Vital Signs: Last Vital Signs Temp 97.6 F 03/02/18 07:50 Pulse 55 L 03/02/18 07:50 Resp 22 03/02/18 08:03 BP 149/65 03/02/18 07:50 Pulse Ox 100 03/02/18 07:50 - Labs Result Diagrams: 03/03/18 05:20 03/03/18 05:20 Labs: Laboratory Results - last 24 hr 03/01/18 03/01/18 03/01/18 17:30 17:45 18:15 WBC 11.3 H RBC 4.05 Hgb 11.2 L Hct 36.5 MCV 90.2 D MCH 27.6 MCHC 30.6 L RDW 19.9 H Plt Count 134 MPV 10.8 Neut % (Auto) 91.6 H Lymph % (Auto) 6.8 L [place] % (Auto) 1.1 Eos % (Auto) 0.0 Baso % (Auto) 0.5 Neut # (Auto) 10.3 H Lymph # (Auto) 0.8 L [place] # (Auto) 0.1 Eos # (Auto) 0.0 Baso # (Auto) 0.1 Neutrophils % (Manual) 90 H Band Neutrophils % 1 Lymphocytes % (Manual) 5 L Monocytes % (Manual) 3 Metamyelocytes % 1 H Toxic Granulation Present Platelet Estimate Normal Hypochromasia (manual) Slight Anisocytosis (manual) Slight Ovalocytes Slight [place] Cells Slight Schistocytes Slight pO2 42 VBG pH 7.19 L* VBG pCO2 63 H VBG HCO3 20.0 VBG Total CO2 26.0 VBG O2 Sat (Calc) 84.1 H VBG Base Excess -5.2 L VBG Potassium 3.8 Sodium 131.0 L 133 Chloride 100.0 103 Glucose 221 H Lactate 0.8 FiO2 21.0 Crit Value Called To Dr stepan flores Crit Value Called By Celia smith aluminum molder Crit Value Read Back Y Blood Gas Notified Time 1752 Potassium 3.9 Carbon Dioxide 22 Anion Gap 12 BUN 35 H Creatinine 2.0 H Est GFR ( Amer) 29 Est GFR (Non-Af Amer) 24 Random Glucose 212 H Calcium 8.5 Magnesium Total Bilirubin 1.2 AST 15 ALT 39 Alkaline Phosphatase 139 H Troponin I 0.0250 Total Protein 4.2 L Albumin 2.2 L Globulin 2.1 L Albumin/Globulin Ratio 1.0 Venous Blood Potassium 3.8 Urine Color Urine Clarity Urine pH Ur Specific [place] Urine Protein Urine Glucose (UA) Urine Ketones Urine Blood Urine Nitrate Urine Bilirubin Urine Urobilinogen Ur Leukocyte Esterase Urine RBC (Auto) Urine Microscopic WBC Ur Squamous Epith Cells Urine Bacteria C. difficile Ag & Toxin 03/01/18 03/02/18 03/02/18 18:58 02:15 05:30 WBC 13.8 H RBC 3.79 L Hgb 10.5 L Hct 34.0 MCV 89.8 MCH 27.7 MCHC 30.8 L RDW 20.1 H Plt Count 160 MPV 11.3 Neut % (Auto) 87.9 H Lymph % (Auto) 9.8 L [place] % (Auto) 1.5 Eos % (Auto) 0.1 Baso % (Auto) 0.7 Neut # (Auto) 12.1 H Lymph # (Auto) 1.3 [place] # (Auto) 0.2 Eos # (Auto) 0.0 Baso # (Auto) 0.1 Neutrophils % (Manual) Band Neutrophils % Lymphocytes % (Manual) Monocytes % (Manual) Metamyelocytes % Toxic Granulation Platelet Estimate Hypochromasia (manual) Anisocytosis (manual) Ovalocytes [place] Cells Schistocytes pO2 VBG pH VBG pCO2 VBG HCO3 VBG Total CO2 VBG O2 Sat (Calc) VBG Base Excess VBG Potassium Sodium Chloride Glucose Lactate FiO2 Crit Value Called To Crit Value Called By Crit Value Read Back Blood Gas Notified Time Potassium Carbon Dioxide Anion Gap BUN Creatinine Est GFR ( Amer) Est GFR (Non-Af Amer) Random Glucose Calcium Magnesium Total Bilirubin AST ALT Alkaline Phosphatase Troponin I Total Protein Albumin Globulin Albumin/Globulin Ratio Venous Blood Potassium Urine Color [place] Urine Clarity Cloudy Urine pH 5.0 Ur Specific [place] 1.024 Urine Protein 30 Urine Glucose (UA) Neg Urine Ketones Negative Urine Blood Moderate Urine Nitrate Negative Urine Bilirubin Negative Urine Urobilinogen 0.2-1.0 Ur Leukocyte Esterase Trace Urine RBC (Auto) 17 H Urine Microscopic WBC 11 H Ur Squamous Epith Cells 1 Urine Bacteria Rare C. difficile Ag & Toxin Negative 03/02/18 03/02/18 05:30 05:30 WBC RBC Hgb Hct MCV MCH MCHC RDW Plt Count MPV Neut % (Auto) Lymph % (Auto) [place] % (Auto) Eos % (Auto) Baso % (Auto) Neut # (Auto) Lymph # (Auto) [place] # (Auto) Eos # (Auto) Baso # (Auto) Neutrophils % (Manual) Band Neutrophils % Lymphocytes % (Manual) Monocytes % (Manual) Metamyelocytes % Toxic Granulation Platelet Estimate Hypochromasia (manual) Anisocytosis (manual) Ovalocytes Sarah Cells Schistocytes pO2 VBG pH VBG pCO2 VBG HCO3 VBG Total CO2 VBG O2 Sat (Calc) VBG Base Excess VBG Potassium Sodium 133 Chloride 107 Glucose Lactate FiO2 Crit Value Called To Crit Value Called By Crit Value Read Back Blood Gas Notified Time Potassium 3.7 Carbon Dioxide 21 L Anion Gap 9 L BUN 34 H Creatinine 2.0 H Est GFR ( Amer) 29 Est GFR (Non-Af Amer) 24 Random Glucose 174 H Calcium 8.2 L Magnesium 1.2 L Total Bilirubin AST ALT Alkaline Phosphatase Troponin I Total Protein Albumin Globulin Albumin/Globulin Ratio Venous Blood Potassium Urine Color Urine Clarity Urine pH Ur Specific [place] Urine Protein Urine Glucose (UA) Urine Ketones Urine Blood Urine Nitrate Urine Bilirubin Urine Urobilinogen Ur Leukocyte Esterase Urine RBC (Auto) Urine Microscopic WBC Ur Squamous Epith Cells Urine Bacteria C. difficile Ag & Toxin Assessment & Plan (1) Bronchopneumonia Status: Acute Priority: High (2) Sacral decubitus ulcer Status: Acute Priority: High Comment: Exact timeframe uncertain (3) Toxic metabolic encephalopathy Status: Acute Priority: High (4) B-cell lymphoma Status: Chronic Priority: High (5) COPD (chronic obstructive pulmonary disease) Status: Chronic Priority: High - Assessment and Plan (Free Text) Plan: Infectious disease consult requested. Continue current antibiotic therapy. Continue current aerosol therapy. Continue wound care therapy. - Date & Time Date: 03/02/18 Time: 09:00
--- NOTE | 2018-03-02 09:17 | CP.PCM.PN ---
<Canelo Ponce - Last Filed: 03/02/18 11:19> Subjective - Date & Time of Evaluation Date of Evaluation: 03/02/18 Time of Evaluation: 07:00 - Subjective Subjective: Patient is seen and examined at bedside. Unable to take any information from patient due to patient is confused, she is awake respond to touch but not to command. Nurse state patient still have diarrhea, she denies any acute episode overnight. She also state that she was trying to take off her nasal canula several time. Otherwise patient appeared comfortable with no acute distress. Objective - Vital Signs/Intake and Output Vital Signs (last 24 hours): Temp Pulse Resp BP Pulse Ox 97.6 F 55 L 22 149/65 100 03/02/18 07:50 03/02/18 07:50 03/02/18 08:03 03/02/18 07:50 03/02/18 07:50 - Medications Medications: Current Medications Acetaminophen (Tylenol 325mg Tab) 650 mg PO Q6 PRN PRN Reason: Fever >100.4 F Atorvastatin Calcium (Lipitor) 10 mg PO HS [facility] Last Admin: 03/01/18 22:21 Dose: 10 mg Benzonatate (Tessalon Perles) 200 mg PO TID PRN PRN Reason: Cough Cholecalciferol (Vitamin D) 1,000 intlu PO DAILY [facility] Digoxin (Digoxin) 0.125 mg PO DAILY [facility] Dimethicone (Proshield Plus Skin Protectant) 1 applic TOP Q8 PRN PRN Reason: Rash Last Admin: 03/02/18 04:10 Dose: 1 applic Emollient Ointment (Vaseline Oint) 1 pkt TOP BID [facility] Epoetin Rolo (Procrit) 40,000 unit SC WED [facility] Hydralazine HCl (Apresoline) 10 mg PO TID [facility] Meropenem 1 gm/ Sodium (Chloride) 100 mls @ 100 mls/hr IVPB Q8 [facility]; Protocol Last Admin: 03/02/18 02:01 Dose: 100 mls/hr Sodium Chloride (Sodium Chloride 0.9%) 1,000 mls @ 125 mls/hr IV .Q8H [facility] Stop: 03/03/18 06:48 Last Admin: 03/02/18 08:55 Dose: Not Given Ipratropium [place] (Atrovent) 0.5 mg IH RQID [facility] Last Admin: 03/02/18 08:03 Dose: 0.5 mg Lactobacillus Acidophilus (Bacid Acidophilus) 1 cap PO BID [facility] Levalbuterol HCl (Xopenex) 0.63 mg INH RQ4 PRN PRN Reason: Shortness of Breath Levothyroxine Sodium (Synthroid) 75 mcg PO DAILY@0630 [facility] Last Admin: 03/02/18 06:14 Dose: 75 mcg Losartan Potassium (Cozaar) 50 mg PO DAILY [facility] Metoprolol Tartrate (Lopressor) 50 mg PO Q12 [facility] Last Admin: 03/01/18 21:16 Dose: 50 mg Mirtazapine (Remeron) 7.5 mg PO HS [facility] Last Admin: 03/01/18 22:21 Dose: 7.5 mg Nystatin (Nystop Topical Powder) 1 applic TOP TID [facility] Pantoprazole Sodium (Protonix Ec Tab) 40 mg PO DAILY [facility] - Labs Labs: 03/02/18 05:30 03/02/18 05:30 - Constitutional Appears: Well, Non-toxic, No Acute Distress - Head Exam Head Exam: ATRAUMATIC, NORMAL INSPECTION, NORMOCEPHALIC - Eye Exam Eye Exam: EOMI, Normal appearance, PERRL Pupil Exam: NORMAL ACCOMODATION, PERRL - ENT Exam ENT Exam: Mucous Membranes Moist, Normal Exam - Neck Exam Neck Exam: Full ROM, Normal Inspection - Respiratory Exam Respiratory Exam: Clear to Ausculation Bilateral, NORMAL BREATHING PATTERN - Cardiovascular Exam Cardiovascular Exam: REGULAR RHYTHM - GI/Abdominal Exam GI & Abdominal Exam: Soft, Normal Bowel Sounds - Back Exam Additional comments: SACRAL ULCER STAGE 3 NOTED - Neurological Exam Neurological Exam: Altered, Awake. absent: Alert - Skin Skin Exam: Dry Assessment and Plan - Assessment and Plan (Free Text) Assessment: A 77 yo female with PMH of HTN, CAD s/p CABG, atrial fibrillation (not on anticoagulation due to thrombocytopenia), B cell lymphoma, MDS s/p chemo with pancytopenia , SIADH was admitted to [facility] for evaluation and treatment of bilateral pneumonia and possible c.diff. Left Pneumonia with RIGHT pleural effusion - Afebrile, WBC 13.8 - X-Ray: Increased lingula and left lower lobe airspace disease with mild right middle lobe similar opacity. Trace bilateral pleural effusion are not excluded. No Pulmonary vascular congestion noted. - F/U ID, Dr. Suggs recommendation -F/U Pulm Dr. Vazquez recommendation -Continue 1 L 9% NaCl at rate 125ml/h -Continue Meropene, 1gm Q8H, day#1 Sacral Ulcer -Wound care on case - Re-Positioning every 2 hour B-cell lymphoma / MDS (myelodysplastic syndrome) - On chemo - F/u Hematology/oncology consult Dr De Dios History of pancytopenia sec to Chemotherapy - WBC 11.3->13.8, Active infection vs medication -Continue with Procrit Chronic A-fib -Continue Metoprolol 50mg Q12, Digoxin, hydrazaline, Cozaar - no anticoagulation due to thrombocytopenia (Stable) COPD chronic - continue Atrovent and Xopenex - Tessala Perles - Incentive [place] - F/U Dr Vazquez recommendation Hyponatremia, sec to SIADH - stable -Na 133 Hypothyroid - Chronic, controlled - Continue Levothyroxine 75mcg daily CKD stage III - stable Hypertension / CAD - Resumed home meds - controlled Hearing loss - possible medication induced or age related - out pt follow up C.diff -Continue with Diarrhea but improved, no diarrhea. -C. Diff negative DVT PPX - SCD for now, Hx of thrombocytopenia <Peyton Silva - Last Filed: 03/03/18 09:57> Objective - Vital Signs/Intake and Output Vital Signs (last 24 hours): Temp Pulse Resp BP Pulse Ox 96.7 F L 89 16 99/36 L 100 03/03/18 08:00 03/03/18 09:47 03/03/18 08:00 03/03/18 09:47 03/03/18 08:00 Intake and Output: 03/03/18 03/03/18 06:59 18:59 Intake Total 2150 132 Balance 2150 132 - Medications Medications: Current Medications Acetaminophen (Tylenol 325mg Tab) 650 mg PO Q6 PRN PRN Reason: Fever >100.4 F Acetaminophen (Tylenol 325mg/10.15ml Ud) 975 mg PO Q8 PRN PRN Reason: Pain, moderate (4-7) Atorvastatin Calcium (Lipitor) 10 mg PO HS [facility] Last Admin: 03/02/18 21:38 Dose: 10 mg Benzonatate (Tessalon Perles) 200 mg PO TID PRN PRN Reason: Cough Cholecalciferol (Vitamin D) 1,000 intlu PO DAILY [facility] Last Admin: 03/02/18 10:43 Dose: 1,000 intlu Digoxin (Digoxin) 0.125 mg PO DAILY [facility] Last Admin: 03/02/18 10:51 Dose: Not Given Dimethicone (Proshield Plus Skin Protectant) 1 applic TOP Q8 PRN PRN Reason: Rash Last Admin: 03/03/18 09:53 Dose: 1 applic Emollient Ointment (Vaseline Oint) 1 pkt TOP BID [facility] Last Admin: 03/03/18 09:53 Dose: 1 pkt Epoetin Rolo (Procrit) 40,000 unit SC WED [facility] Hydralazine HCl (Apresoline) 10 mg PO TID [facility] Last Admin: 03/03/18 09:47 Dose: Not Given Clindamycin in NS (Clindamycin 300 Mg/50 Ml-Ns) 300 mg in 50 mls @ 50 mls/hr IVPB Q12 [facility]; Protocol Last Admin: 03/02/18 21:41 Dose: 50 mls/hr Meropenem 500 mg/ Sodium (Chloride) 100 mls @ 100 mls/hr IVPB Q12 [facility]; Protocol Last Admin: 03/02/18 21:41 Dose: 100 mls/hr Sodium Chloride (Sodium Chloride 0.9%) 1,000 mls @ 125 mls/hr IV .Q8H [facility] Stop: 03/04/18 07:17 Norepinephrine Bitartrate 4 mg (/ Dextrose) 254 mls @ 9.53 mls/hr IV .Q24H [facility]; Protocol Linezolid (Zyvox 600mg/300ml D5w) 600 mg in 300 mls @ 300 mls/hr IVPB Q12 [facility]; Protocol Ipratropium [place] (Atrovent) 0.5 mg IH RQID [facility] Last Admin: 03/03/18 07:44 Dose: 0.5 mg Lactobacillus Acidophilus (Bacid Acidophilus) 1 cap PO BID [facility] Last Admin: 03/02/18 17:48 Dose: Not Given Levalbuterol HCl (Xopenex) 0.63 mg INH RQ4 PRN PRN Reason: Shortness of Breath Levothyroxine Sodium (Synthroid) 40 mcg IVP DAILY@0630 [facility] Last Admin: 03/03/18 09:51 Dose: 40 mcg Losartan Potassium (Cozaar) 50 mg PO DAILY [facility] Mirtazapine (Remeron) 7.5 mg PO HS [facility] Last Admin: 03/02/18 21:38 Dose: 7.5 mg Nystatin (Nystop Topical Powder) 1 applic TOP TID [facility] Last Admin: 03/03/18 09:53 Dose: 1 appl Pantoprazole Sodium (Protonix Inj) 40 mg IVP DAILY [facility] - Labs Labs: 03/03/18 05:20 03/03/18 05:20 Attending/Attestation - Attestation I have personally seen and examined this patient.: Yes I have fully participated in the care of the patient.: Yes I have reviewed all pertinent clinical information, including history, physical exam and plan: Yes Notes (Text): 03/03/18 09:57 Seen, examined, and discussed with resident. Agree with findings and plan as above.
--- NOTE | 2018-03-02 09:44 | RAD ---
Date of service: 03/01/2018 HISTORY: SOB COMPARISON: Portable chest 02/06/2018. FINDINGS: LUNGS: Right MediPort unchanged in position terminating in right atrium. Heart border is silhouetted with increase patchy density suspicious for worsening infiltrate or atelectasis at the lingula and left lower lobe with left hemidiaphragm partially silhouetted. Similar changes present at the right middle lobe PLEURA: . trace bilateral pleural effusions are not excluded. No pneumothorax bilaterally. CARDIOVASCULAR: No aortic atherosclerotic calcification present. No definite interval change in cardiac silhouette. No pulmonary vascular congestion. OSSEOUS STRUCTURES: Sternotomy wires reiterated. VISUALIZED UPPER ABDOMEN: Normal. OTHER FINDINGS: None. IMPRESSION: Increased lingula and left lower lobe airspace disease with mild right middle lobe similar opacity. Trace bilateral pleural effusions are not excluded. No pulmonary vascular congestion.
[2018-03-02] MEDS: Petrolatum UD PAK TOP SCH ×2 (10:43→17:47)
[2018-03-02] MEDS: Cholecalciferol 1,000 INTLU TAB PO SCH (10:43)
[2018-03-02] MEDS: Lactobacillus Acidophilus 500 MU Cap PO SCH ×2 (10:51→17:48)
--- NOTE | 2018-03-02 11:39 | CP.PCM.CON ---
History of Present Illness - History of Present Illness History of Present Illness: This is a 77 yrs old female who was admitted for ?c diff and pneumonia. Pt has been diagnosed to have a MDS 1 yrs ago and was doing well on Azacitidine. She then had a massive [id number] and found to have nodules in the spleen. 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 She was started on rituximab and the azacitidine was continued as well. she did well with it. but is not very cooperative with physical therapy,and has had lung infiltrate for a long time. P/H; CAD,Afib, copd Past Patient History - Infectious Disease Hx of Infectious Diseases: None - Tetanus Immunizations Tetanus Immunization: Unknown - Past Medical History & Family History Past Medical History?: Yes - Past Social History Smoking Status: Former Smoker - CARDIAC Hx Atrial Fibrillation: Yes Hx Congestive Heart Failure: Yes Hx Hypercholesterolemia: Yes Hx Hypertension: Yes Hx Peripheral Edema: Yes - PULMONARY Hx Chronic Obstructive Pulmonary Disease (COPD): Yes Hx Pneumonia: Yes Hx Sleep Apnea: Yes - NEUROLOGICAL Hx Neurological Disorder: Yes Hx Dementia: Yes - HEENT Hx HEENT Problems: Yes (Hearing loss in the right ear.) Hx Deafness: Yes - RENAL Hx Chronic Kidney Disease: Yes - ENDOCRINE/METABOLIC Hx Diabetes Mellitus Type 2: Yes Hx Hypothyroidism: Yes - HEMATOLOGICAL/ONCOLOGICAL Hx AIDS: No Hx Anemia: Yes Hx Human Immunodeficiency Virus (HIV): No - INTEGUMENTARY Hx Dermatological Problems: Yes Other/Comment: sacral decubiti - MUSCULOSKELETAL/RHEUMATOLOGICAL Hx Back Pain: Yes Hx Degenerative Joint Disease: Yes Hx Falls: Yes Hx Herniated Disk: Yes - GASTROINTESTINAL Hx Gastritis: Yes - GENITOURINARY/GYNECOLOGICAL Hx Incontinence: Yes - PSYCHIATRIC Hx Psychophysiologic Disorder: No Hx Substance Use: No - SURGICAL HISTORY Hx Coronary Artery Bypass Graft: Yes (2000) Hx Coronary Stent: Yes (PCI 2007 and 2010) Hx Orthopedic Surgery: Yes (Bilateral Knee Resplacements) - ANESTHESIA Hx Anesthesia: Yes Hx Anesthesia Reactions: No Hx Malignant Hyperthermia: No Meds Allergies/Adverse Reactions: Allergies Allergy/AdvReac Type Severity Reaction Status Date / Time vancomycin AdvReac Intermediate NAUSEA Verified 03/01/18 16:33 - Medications Medications: Current Medications Acetaminophen (Tylenol 325mg Tab) 650 mg PO Q6 PRN PRN Reason: Fever >100.4 F Atorvastatin Calcium (Lipitor) 10 mg PO HS RUIZ Last Admin: 03/01/18 22:21 Dose: 10 mg Benzonatate (Tessalon Perles) 200 mg PO TID PRN PRN Reason: Cough Cholecalciferol (Vitamin D) 1,000 intlu PO DAILY [facility] Last Admin: 03/02/18 10:43 Dose: 1,000 intlu Digoxin (Digoxin) 0.125 mg PO DAILY [facility] Last Admin: 03/02/18 10:51 Dose: Not Given Dimethicone (Proshield Plus Skin Protectant) 1 applic TOP Q8 PRN PRN Reason: Rash Last Admin: 03/02/18 04:10 Dose: 1 applic Emollient Ointment (Vaseline Oint) 1 pkt TOP BID [facility] Last Admin: 03/02/18 10:43 Dose: 1 pkt Epoetin Rolo (Procrit) 40,000 unit SC WED [facility] Hydralazine HCl (Apresoline) 10 mg PO TID [facility] Last Admin: 03/02/18 10:44 Dose: 10 mg Meropenem 1 gm/ Sodium (Chloride) 100 mls @ 100 mls/hr IVPB Q8 [facility]UIZ; Protocol Last Admin: 03/02/18 10:42 Dose: 100 mls/hr Sodium Chloride (Sodium Chloride 0.9%) 1,000 mls @ 125 mls/hr IV .Q8H [facility] Stop: 03/03/18 06:48 Last Admin: 03/02/18 08:55 Dose: Not Given Ipratropium [place] (Atrovent) 0.5 mg IH RQID [facility] Last Admin: 03/02/18 08:03 Dose: 0.5 mg Lactobacillus Acidophilus (Bacid Acidophilus) 1 cap PO BID [facility] Last Admin: 03/02/18 10:51 Dose: 1 cap Levalbuterol HCl (Xopenex) 0.63 mg INH RQ4 PRN PRN Reason: Shortness of Breath Levothyroxine Sodium (Synthroid) 75 mcg PO DAILY@0630 [facility] Last Admin: 03/02/18 06:14 Dose: 75 mcg Losartan Potassium (Cozaar) 50 mg PO DAILY [facility] Last Admin: 03/02/18 10:44 Dose: 50 mg Metoprolol Tartrate (Lopressor) 50 mg PO Q12 [facility] Last Admin: 03/02/18 10:49 Dose: 50 mg Mirtazapine (Remeron) 7.5 mg PO HS [facility] Last Admin: 03/01/18 22:21 Dose: 7.5 mg Nystatin (Nystop Topical Powder) 1 applic TOP TID [facility] Last Admin: 03/02/18 10:42 Dose: 1 appl Pantoprazole Sodium (Protonix Ec Tab) 40 mg PO DAILY [facility] Last Admin: 03/02/18 10:42 Dose: 40 mg Physical Exam - Additional Findings Additional findings: Physical exam; Alert but does not hear well, slight short of breath neck; supple, no adenopathy Chest; clear, no ralews or rhonchi Heart; RSR, no murmur Abd; Soft, no mass, no hepatomegaly. spleen 1 cm below left costal margin Results - Vital Signs Recent Vital Signs: Last Vital Signs Temp 97.6 F 03/02/18 07:50 Pulse 62 03/02/18 10:49 Resp 22 03/02/18 08:03 BP 149/65 03/02/18 10:49 Pulse Ox 100 03/02/18 07:50 - Labs Result Diagrams: 03/02/18 05:30 03/02/18 05:30 Labs: Laboratory Results - last 24 hr 03/01/18 03/01/18 03/01/18 17:15 17:30 17:45 WBC 11.3 H RBC 4.05 Hgb 11.2 L Hct 36.5 MCV 90.2 D MCH 27.6 MCHC 30.6 L RDW 19.9 H Plt Count 134 MPV 10.8 Neut % (Auto) 91.6 H Lymph % (Auto) 6.8 L [place] % (Auto) 1.1 Eos % (Auto) 0.0 Baso % (Auto) 0.5 Neut # (Auto) 10.3 H Lymph # (Auto) 0.8 L [place] # (Auto) 0.1 Eos # (Auto) 0.0 Baso # (Auto) 0.1 Neutrophils % (Manual) 90 H Band Neutrophils % 1 Lymphocytes % (Manual) 5 L Monocytes % (Manual) 3 Metamyelocytes % 1 H Toxic Granulation Present Platelet Estimate Normal Hypochromasia (manual) Slight Anisocytosis (manual) Slight Ovalocytes Slight [place] Cells Slight Schistocytes Slight pO2 42 VBG pH 7.19 L* VBG pCO2 63 H VBG HCO3 20.0 VBG Total CO2 26.0 VBG O2 Sat (Calc) 84.1 H VBG Base Excess -5.2 L VBG Potassium 3.8 Sodium 131.0 L Chloride 100.0 Glucose 221 H Lactate 0.8 FiO2 21.0 Crit Value Called To Dr stepan flores Crit Value Called By Celia smith recreational counselor Crit Value Read Back Y Blood Gas Notified Time 1752 Potassium Carbon Dioxide Anion Gap BUN Creatinine Est GFR ( Amer) Est GFR (Non-Af Amer) POC Glucose (mg/dL) 190 H Random Glucose Calcium Magnesium Total Bilirubin AST ALT Alkaline Phosphatase Troponin I Total Protein Albumin Globulin Albumin/Globulin Ratio Venous Blood Potassium 3.8 Urine Color Urine Clarity Urine pH Ur Specific [place] Urine Protein Urine Glucose (UA) Urine Ketones Urine Blood Urine Nitrate Urine Bilirubin Urine Urobilinogen Ur Leukocyte Esterase Urine RBC (Auto) Urine Microscopic WBC Ur Squamous Epith Cells Urine Bacteria C. difficile Ag & Toxin 03/01/18 03/01/18 03/02/18 18:15 18:58 02:15 WBC RBC Hgb Hct MCV MCH MCHC RDW Plt Count MPV Neut % (Auto) Lymph % (Auto) [place] % (Auto) Eos % (Auto) Baso % (Auto) Neut # (Auto) Lymph # (Auto) [place] # (Auto) Eos # (Auto) Baso # (Auto) Neutrophils % (Manual) Band Neutrophils % Lymphocytes % (Manual) Monocytes % (Manual) Metamyelocytes % Toxic Granulation Platelet Estimate Hypochromasia (manual) Anisocytosis (manual) Ovalocytes Sarah Cells Schistocytes pO2 VBG pH VBG pCO2 VBG HCO3 VBG Total CO2 VBG O2 Sat (Calc) VBG Base Excess VBG Potassium Sodium 133 Chloride 103 Glucose Lactate FiO2 Crit Value Called To Crit Value Called By Crit Value Read Back Blood Gas Notified Time Potassium 3.9 Carbon Dioxide 22 Anion Gap 12 BUN 35 H Creatinine 2.0 H Est GFR ( Amer) 29 Est GFR (Non-Af Amer) 24 POC Glucose (mg/dL) Random Glucose 212 H Calcium 8.5 Magnesium Total Bilirubin 1.2 AST 15 ALT 39 Alkaline Phosphatase 139 H Troponin I 0.0250 Total Protein 4.2 L Albumin 2.2 L Globulin 2.1 L Albumin/Globulin Ratio 1.0 Venous Blood Potassium Urine Color [place] Urine Clarity Cloudy Urine pH 5.0 Ur Specific [place] 1.024 Urine Protein 30 Urine Glucose (UA) Neg Urine Ketones Negative Urine Blood Moderate Urine Nitrate Negative Urine Bilirubin Negative Urine Urobilinogen 0.2-1.0 Ur Leukocyte Esterase Trace Urine RBC (Auto) 17 H Urine Microscopic WBC 11 H Ur Squamous Epith Cells 1 Urine Bacteria Rare C. difficile Ag & Toxin Negative 03/02/18 03/02/18 03/02/18 05:30 05:30 05:30 WBC 13.8 H RBC 3.79 L Hgb 10.5 L Hct 34.0 MCV 89.8 MCH 27.7 MCHC 30.8 L RDW 20.1 H Plt Count 160 MPV 11.3 Neut % (Auto) 87.9 H Lymph % (Auto) 9.8 L [place] % (Auto) 1.5 Eos % (Auto) 0.1 Baso % (Auto) 0.7 Neut # (Auto) 12.1 H Lymph # (Auto) 1.3 [place] # (Auto) 0.2 Eos # (Auto) 0.0 Baso # (Auto) 0.1 Neutrophils % (Manual) Band Neutrophils % Lymphocytes % (Manual) Monocytes % (Manual) Metamyelocytes % Toxic Granulation Platelet Estimate Hypochromasia (manual) Anisocytosis (manual) Ovalocytes [place] Cells Schistocytes pO2 VBG pH VBG pCO2 VBG HCO3 VBG Total CO2 VBG O2 Sat (Calc) VBG Base Excess VBG Potassium Sodium 133 Chloride 107 Glucose Lactate FiO2 Crit Value Called To Crit Value Called By Crit Value Read Back Blood Gas Notified Time Potassium 3.7 Carbon Dioxide 21 L Anion Gap 9 L BUN 34 H Creatinine 2.0 H Est GFR ( Amer) 29 Est GFR (Non-Af Amer) 24 POC Glucose (mg/dL) Random Glucose 174 H Calcium 8.2 L Magnesium 1.2 L Total Bilirubin AST ALT Alkaline Phosphatase Troponin I Total Protein Albumin Globulin Albumin/Globulin Ratio Venous Blood Potassium Urine Color Urine Clarity Urine pH Ur Specific [place] Urine Protein Urine Glucose (UA) Urine Ketones Urine Blood Urine Nitrate Urine Bilirubin Urine Urobilinogen Ur Leukocyte Esterase Urine RBC (Auto) Urine Microscopic WBC Ur Squamous Epith Cells Urine Bacteria C. difficile Ag & Toxin 03/02/18 06:27 WBC RBC Hgb Hct MCV MCH MCHC RDW Plt Count MPV Neut % (Auto) Lymph % (Auto) [place] % (Auto) Eos % (Auto) Baso % (Auto) Neut # (Auto) Lymph # (Auto) [place] # (Auto) Eos # (Auto) Baso # (Auto) Neutrophils % (Manual) Band Neutrophils % Lymphocytes % (Manual) Monocytes % (Manual) Metamyelocytes % Toxic Granulation Platelet Estimate Hypochromasia (manual) Anisocytosis (manual) Ovalocytes Sarah Cells Schistocytes pO2 VBG pH VBG pCO2 VBG HCO3 VBG Total CO2 VBG O2 Sat (Calc) VBG Base Excess VBG Potassium Sodium Chloride Glucose Lactate FiO2 Crit Value Called To Crit Value Called By Crit Value Read Back Blood Gas Notified Time Potassium Carbon Dioxide Anion Gap BUN Creatinine Est GFR ( Amer) Est GFR (Non-Af Amer) POC Glucose (mg/dL) 182 H Random Glucose Calcium Magnesium Total Bilirubin AST ALT Alkaline Phosphatase Troponin I Total Protein Albumin Globulin Albumin/Globulin Ratio Venous Blood Potassium Urine Color Urine Clarity Urine pH Ur Specific [place] Urine Protein Urine Glucose (UA) Urine Ketones Urine Blood Urine Nitrate Urine Bilirubin Urine Urobilinogen Ur Leukocyte Esterase Urine RBC (Auto) Urine Microscopic WBC Ur Squamous Epith Cells Urine Bacteria C. difficile Ag & Toxin Assessment & Plan - Assessment and Plan (Free Text) Assessment: Impression MDS. LYmphoma, Pneumonia Plan: Plan; Will wait until pt is better before giving her the chemotherapy - Date & Time Date: 03/02/18 Time: 11:44
--- NOTE | 2018-03-02 12:58 | PQF ---
PROVIDER RESPONSE TEXT: Provider was unable to determine a response for this query. REVIEWER QUERY TEXT: Pneumonia Specificity Pneumonia is documented in the Medical Record. Please specify the type of pneumonia and the causative organism (includes probable or suspected) Such as: Type: -- Aspiration pneumonia (please also specify the aspirate) - [place] (please specify cause) - Please indicate if the aspiration is postprocedure -- Bacterial (please document suspected or probable organism) -- Bronchopneumonia (please document suspected or probable organism) -- Interstitial pneumonia -- Organizing pneumonia / BOOP -- Pneumonia with influenza, chastity flu, or H1N1 flu -- RSV -- Tuberculosis, pulmonary -- Viral -- Other, please specify ER: Labs reveal CO2 retention and resp acidosis, Vapotherm initiated w some improvement of effort Clinical Impression: Pneumonia, Sacral decubitus ulcer, Respiratory failure H and P includes:PE: awake but confused POA; Decubitus Ulcer: POA hx. of HTN, CAD s/p CABG, a- fib (not on anticoagulation due to thrombocytopenia), B cell lymphoma, M DS s/p chemo with pancytopenia , [facility]ADH admitted to [facility] for evaluation and treatment of b/l pneumonia and possible c.diff. B/l Pneumonia - Afebrile, WBC 11 - Follow up official CXR - Consult ID, Dr. Suggs, follow up further recommendations - Pulmonary consult - Dr. Vazquez, follow up recommendations - Meropene, 1gm Q8H, day#0 Possible C.diff - Follow up [facility] C.diff - [place] Allergy B-cell lymphoma / MDS - On chemo -hematology /oncology consult, COPD chronic - continue Atrovent and Xopenex - Tessala Perles - Incentive [place] - Pulm consult - Dr. 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
[2018-03-02] MEDS ORDERED: Oxycodone/Acetaminophen 5/325 mg Tab PO PRN (14:43)
[2018-03-02] MEDS ORDERED: Acetaminophen 160 mg/5 ml UD PO PRN (15:22)
[2018-03-02] MEDS: Meropenem 500 MG in Sodium Chloride 0.9% 100 ML IVPB SCH (21:41)
[2018-03-02] MEDS: Clindamycin in NS 300 MG/50 ML BAG IVPB SCH (21:41)
[2018-03-02] MEDS ORDERED: Acetaminophen 325 MG/10.15 ML PO PRN (21:45)
[2018-03-02] MEDS ORDERED: Midazolam 2 MG/2 ML VIAL ONE (22:23)
[2018-03-02] MEDS ORDERED: Etomidate 20 mg/10ml Inj IV ONE ×2 (22:28→22:41)
[2018-03-02] MEDS ORDERED: Midazolam 5 MG/ML IV ONE (22:42)
--- NOTE | 2018-03-02 22:46 | PCM.RRT ---
<Ly Verma - Last Filed: 03/03/18 00:30> [employer] Nurse Assessment - Ventilator Settings FIO2 (% Oxygen): 60 - Constitutional Appears: Chronically Ill - Head Head Exam: ATRAUMATIC - Eyes Eye Exam: Normal appearance - Respiratory Exam Respiratory Exam: Decreased Breath Sounds, Rhonchi, Respiratory Distress Additional comments: diaphragmatic breathing - Cardiovascular Exam Cardiovascular Exam: Irregular Rhythm, +S1, +S2 - GI/Abdominal Exam GI & Abdominal Exam: Soft. absent: Tenderness - Neurological Exam Neurological Exam: Awake - Extremities Exam Extremities Exam: Pedal Edema Plan - Assessment of Findings&Treatment Plan [employer] HOU[employer] MANAGER called: 10:22pm [employer] HOUSE MANAGER end time:10:38pm [employer] HOUSE MANAGER called by:RN Response time:10:23pm [employer]NIAL HOUSE MANAGER called on 77 y/o F because of respiratory distress & bradycardia. Patient has a hx of B cell lymphoma, MDS s/p chemotherapy with pancytopenia, HTN, CAD s/p CABG & atrial fibrillation and was admitted for treatment of b/l pneumonia. Initial vs: BP-86/43, 49 bpm, spo2-97%, RR-18 Interventions: Patient was intubated during [employer] MA[employer]GER etomidate 20mg IVP versed 5mg IVP 1 bolus of 500ml LR Labs drawn: cbc, cmp, lactate, abg, troponin End vs: 104/68, 55bpm, spo2-100%, RR-14 Patient was transferred to ICU for close monitoring. <Tulio Galindo - Last Filed: 03/03/18 02:38> Attending/Attestation - Attestation I have personally seen and examined this patient.: Yes I have fully participated in the care of the patient.: Yes I have reviewed all pertinent clinical information, including history, physical exam and plan: Yes Notes (Text): 03/03/18 02:34 I saw and examined this patient with Dr Verma. I Agree with the Assessment and plan outline above. Emergent Intubate for the patient Tulio Galindo MD
[2018-03-02 23:17] LABS: BASO # 0.1 K/uL (0.0-0.2); BASO % 0.8 % (0.0-2.0); EOS % 0.1 % (0.0-4.0); HEMOGLOBIN 9.4 g/dL (12.0-16.0); LYMPH # 1.6 K/uL (1.0-4.3); LYMPH % 12.3 % (20.0-40.0); MEAN CELL VOLUME 90.9 fl (81.0-99.0); MEAN CORPUSCULAR HEMOGLOBIN 27.4 pg (27.0-31.0); MEAN CORPUSCULAR HGB CONC 30.2 g/dL (33.0-37.0); MEAN PLATELET VOLUME 11.1 fl (7.2-11.7); MONO # 0.2 K/uL (0.0-0.8); MONO % 1.4 % (0.0-10.0); NEUT # 11.2 K/uL (1.8-7.0); NEUT % 85.4 % (50.0-75.0); NRBC % 0.2 % (0.0-0.0); RBC 3.44 Mil/uL (3.80-5.20); RED CELL DISTRIBUTION WIDTH 19.7 % (11.5-14.5); WHITE BLOOD COUNT 13.2 K/uL (4.8-10.8)
[2018-03-02 23:28] LABS: ALB/GLOB RATIO 0.9 (1.0-2.1); ALBUMIN 1.6 g/dL (3.5-5.0); CALCIUM 7.6 mg/dL (8.4-10.2)
[2018-03-02] MEDS ORDERED: Chlorhexidine Gluconate 1 APPL/PKT TP ONE (23:29)
--- NOTE | 2018-03-02 23:30 | PCM.PROC ---
Procedures Attestation:: I certify that I have explained the specified Operation(s) or Procedure(s), risks, benefits and reasonable alternatives to the Patient and/or other person responsible. The opportunity was given to ask questions and all questions answered - Intubation Time Out Performed: Yes Sedative: Etomidate Laryngoscope: Nolan ET Tube Size: 7.5 ET Tube Uncuffed: No ET Tube Secured Locarion: Lips ET Tube Placement Confirmation: Visualized Passing Through Cords, Breath Sounds Equal Bilaterally, No Breath Sounds Over Epigastrum, Confirmation w/Capnometry Patient Tolerated Procedure: No Complications Procedure Immediate Complications: None Additional comments: This patient was intubated because of impending respiratory arrest.
[2018-03-02 23:39] LABS: TROPONIN I 0.017 ng/mL (0.00-0.120)
[2018-03-02] MEDS ORDERED: DOPamine 400mg/250ml D5W 400 MG/250 ML BAG IV ONE (23:42)
--- NOTE | 2018-03-02 23:42 | CP.PCM.CON ---
History of Present Illness - History of Present Illness History of Present Illness: Pulmonolgoist: Dr Vazquez Hem/Oncologist: Dr Luz Pantoja Reason for Consult: Critical care management The Patient was seen and examined in the Telemetry Unit HPI: The hx was obtained from the nurse and after review of the medical records as the patient is intubated and sedated. She is a 77 years old female with hx of DM II, CKD, MDS and chronic A Fib. She was admitted to the [facility] on 03/01/18 with diagnosis of Pneumonia, having diarrhea and being confused. With the A Fib she has been receiving Atenolol and Digoxin. Code Micah was called tonight, but on arrival the patient was found to have pulses, But was in respiratory distress. The Code was cancelled. The EKG Strip for this time showed two episodes of Sinus Pauses, 8.64 seconds and 6.64 seconds. Decision was made for emergent Orotracheal Intubation. PMH: HTN; CAD: CKD stage III; Chronic Anemia; MDS; Marginal Zone B Cell Lymphoma; COPD; Chronic A Fib not on Anticoagulant because of frequent Thrombocytopenia ; Hypothyroidism; CHF; Gastritis; Sleep Apnea PSH: CABG 2010; PCI 2007; Bilateral Knee replacement SH: Former Smoker; No Alcohol; No illegal drug use FH: None noted in records Allergies: Vancomycin Medication: Reviewed Surrogate: daughter: Leanna Copeland [phone] Review of Systems - Review of Systems Systems not reviewed;Unavailable: Intubated Review of Systems: Review of systems limited because the patient is confused, lethargic and later intubated. Past Patient History - Infectious Disease Hx of Infectious Diseases: None - Tetanus Immunizations Tetanus Immunization: Unknown - Past Medical History & Family History Past Medical History?: Yes - Past Social History Smoking Status: Former Smoker Chewing Tobacco Use: No Cigar Use: No Alcohol: None Drugs: Denies - CARDIAC Hx Atrial Fibrillation: Yes Hx Congestive Heart Failure: Yes Hx Hypercholesterolemia: Yes Hx Hypertension: Yes Hx Peripheral Edema: Yes - PULMONARY Hx Chronic Obstructive Pulmonary Disease (COPD): Yes Hx Pneumonia: Yes Hx Sleep Apnea: Yes - NEUROLOGICAL Hx Neurological Disorder: Yes Hx Dementia: Yes - HEENT Hx HEENT Problems: Yes (Hearing loss in the right ear.) Hx Deafness: Yes - RENAL Hx Chronic Kidney Disease: Yes - ENDOCRINE/METABOLIC Hx Diabetes Mellitus Type 2: Yes Hx Hypothyroidism: Yes - HEMATOLOGICAL/ONCOLOGICAL Hx AIDS: No Hx Anemia: Yes Hx Human Immunodeficiency Virus (HIV): No - INTEGUMENTARY Hx Dermatological Problems: Yes Other/Comment: sacral decubiti - MUSCULOSKELETAL/RHEUMATOLOGICAL Hx Back Pain: Yes Hx Degenerative Joint Disease: Yes Hx Falls: Yes Hx Herniated Disk: Yes - GASTROINTESTINAL Hx Gastritis: Yes - GENITOURINARY/GYNECOLOGICAL Hx Incontinence: Yes - PSYCHIATRIC Hx Psychophysiologic Disorder: No Hx Substance Use: No - SURGICAL HISTORY Hx Coronary Artery Bypass Graft: Yes (2000) Hx Coronary Stent: Yes (PCI 2007 and 2010) Hx Orthopedic Surgery: Yes (Bilateral Knee Resplacements) - ANESTHESIA Hx Anesthesia: Yes Hx Anesthesia Reactions: No Hx Malignant Hyperthermia: No Meds Allergies/Adverse Reactions: Allergies Allergy/AdvReac Type Severity Reaction Status Date / Time vancomycin AdvReac Intermediate NAUSEA Verified 03/01/18 16:33 - Medications Medications: Current Medications Acetaminophen (Tylenol 325mg Tab) 650 mg PO Q6 PRN PRN Reason: Fever >100.4 F Acetaminophen (Tylenol 325mg/10.15ml Ud) 975 mg PO Q8 PRN PRN Reason: Pain, moderate (4-7) Atorvastatin Calcium (Lipitor) 10 mg PO HS [facility] Last Admin: 03/02/18 21:38 Dose: 10 mg Benzonatate (Tessalon Perles) 200 mg PO TID PRN PRN Reason: Cough Cholecalciferol (Vitamin D) 1,000 intlu PO DAILY [facility] Last Admin: 03/02/18 10:43 Dose: 1,000 intlu Digoxin (Digoxin) 0.125 mg PO DAILY [facility] Last Admin: 03/02/18 10:51 Dose: Not Given Dimethicone (Proshield Plus Skin Protectant) 1 applic TOP Q8 PRN PRN Reason: Rash Last Admin: 03/02/18 04:10 Dose: 1 applic Emollient Ointment (Vaseline Oint) 1 pkt TOP BID [facility] Last Admin: 03/02/18 17:47 Dose: 1 pkt Epoetin Rolo (Procrit) 40,000 unit SC WED [facility] Hydralazine HCl (Apresoline) 10 mg PO TID [facility] Last Admin: 03/02/18 17:38 Dose: Not Given Clindamycin in NS (Clindamycin 300 Mg/50 Ml-Ns) 300 mg in 50 mls @ 50 mls/hr IVPB Q12 [facility]; Protocol Last Admin: 03/02/18 21:41 Dose: 50 mls/hr Meropenem 500 mg/ Sodium (Chloride) 100 mls @ 100 mls/hr IVPB Q12 [facility]; Protocol Last Admin: 03/02/18 21:41 Dose: 100 mls/hr Sodium Chloride (Sodium Chloride 0.9%) 1,000 mls @ 60 mls/hr IV .[id number] [facility] Stop: 03/03/18 06:48 Last Admin: 03/02/18 21:39 Dose: 60 mls/hr Ipratropium [place] (Atrovent) 0.5 mg IH RQID [facility] Last Admin: 03/02/18 19:37 Dose: 0.5 mg Lactobacillus Acidophilus (Bacid Acidophilus) 1 cap PO BID [facility] Last Admin: 03/02/18 17:48 Dose: Not Given Levalbuterol HCl (Xopenex) 0.63 mg INH RQ4 PRN PRN Reason: Shortness of Breath Levothyroxine Sodium (Synthroid) 40 mcg IVP DAILY@0630 [facility] Losartan Potassium (Cozaar) 50 mg PO DAILY [facility] Mirtazapine (Remeron) 7.5 mg PO HS [facility] Last Admin: 03/02/18 21:38 Dose: 7.5 mg Nystatin (Nystop Topical Powder) 1 applic TOP TID [facility] Last Admin: 03/02/18 17:46 Dose: 1 appl Pantoprazole Sodium (Protonix Inj) 40 mg IVP DAILY [facility] Physical Exam - Constitutional Additional comments: In Respiratory Distress with agonal breathing. - Head Exam Head Exam: ATRAUMATIC, NORMAL INSPECTION, NORMOCEPHALIC - Eye Exam Pupil Exam: NORMAL ACCOMODATION - ENT Exam ENT Exam: Mucous Membranes Dry, Normal Exam, Normal External Ear Exam - Neck Exam Neck exam: Positive for: Full Rom, Normal Inspection. Negative for: Lymp hadenopathy - Respiratory Exam Respiratory Exam: absent: Rhonchi, Wheezes Additional comments: Decreased breath sounds at the bases. - Cardiovascular Exam Cardiovascular Exam: Irregular Rhythm, +S1, +S2. absent: Gallop - GI/Abdominal Exam Additional comments: Abdomen ful. soft, decreased bowel sounds. - Rectal Exam Rectal Exam: Deferred - Extremities Exam Extremities exam: Positive for: pedal edema - Back Exam Back exam: absent: CVA tenderness (L), CVA tenderness (R) - Neurological Exam Additional comments: Lethargic, confused, pulling off the cardiac leads and tubes. Moving both upper extremities. - Psychiatric Exam Additional comments: Lethargic. - Skin Skin Exam: Dry, Normal Color Results - Vital Signs Recent Vital Signs: Last Vital Signs Temp 98.9 F 03/02/18 20:13 Pulse 62 03/02/18 23:15 Resp 14 03/02/18 23:15 BP 133/43 L 03/02/18 23:15 Pulse Ox 100 03/02/18 23:15 - Labs Result Diagrams: 03/02/18 23:11 03/02/18 23:11 Labs: Laboratory Results - last 24 hr 03/01/18 03/02/18 03/02/18 17:15 02:15 05:30 WBC 13.8 H RBC 3.79 L Hgb 10.5 L Hct 34.0 MCV 89.8 MCH 27.7 MCHC 30.8 L RDW 20.1 H Plt Count 160 MPV 11.3 Neut % (Auto) 87.9 H Lymph % (Auto) 9.8 L [place] % (Auto) 1.5 Eos % (Auto) 0.1 Baso % (Auto) 0.7 Neut # (Auto) 12.1 H Lymph # (Auto) 1.3 [place] # (Auto) 0.2 Eos # (Auto) 0.0 Baso # (Auto) 0.1 Sodium Potassium Chloride Carbon Dioxide Anion Gap BUN Creatinine Est GFR ( Amer) Est GFR (Non-Af Amer) POC Glucose (mg/dL) 190 H Random Glucose Lactic Acid Calcium Magnesium Total Bilirubin AST ALT Alkaline Phosphatase Troponin I Total Protein Albumin Globulin Albumin/Globulin Ratio Procalcitonin C. difficile Ag & Toxin Negative 03/02/18 03/02/18 03/02/18 05:30 05:30 05:30 WBC RBC Hgb Hct MCV MCH MCHC RDW Plt Count MPV Neut % (Auto) Lymph % (Auto) [place] % (Auto) Eos % (Auto) Baso % (Auto) Neut # (Auto) Lymph # (Auto) [place] # (Auto) Eos # (Auto) Baso # (Auto) Sodium 133 Potassium 3.7 Chloride 107 Carbon Dioxide 21 L Anion Gap 9 L BUN 34 H Creatinine 2.0 H Est GFR ( Amer) 29 Est GFR (Non-Af Amer) 24 POC Glucose (mg/dL) Random Glucose 174 H Lactic Acid Calcium 8.2 L Magnesium 1.2 L Total Bilirubin AST ALT Alkaline Phosphatase Troponin I Total Protein Albumin Globulin Albumin/Globulin Ratio Procalcitonin 0.44 C. difficile Ag & Toxin 03/02/18 03/02/18 03/02/18 06:27 10:54 16:29 WBC RBC Hgb Hct MCV MCH MCHC RDW Plt Count MPV Neut % (Auto) Lymph % (Auto) [place] % (Auto) Eos % (Auto) Baso % (Auto) Neut # (Auto) Lymph # (Auto) [place] # (Auto) Eos # (Auto) Baso # (Auto) Sodium Potassium Chloride Carbon Dioxide Anion Gap BUN Creatinine Est GFR ( Amer) Est GFR (Non-Af Amer) POC Glucose (mg/dL) 182 H 160 H 168 H Random Glucose Lactic Acid Calcium Magnesium Total Bilirubin AST ALT Alkaline Phosphatase Troponin I Total Protein Albumin Globulin Albumin/Globulin Ratio Procalcitonin C. difficile Ag & Toxin 03/02/18 03/02/18 03/02/18 21:49 23:11 23:11 WBC 13.2 H RBC 3.44 L Hgb 9.4 L Hct 31.3 L MCV 90.9 MCH 27.4 MCHC 30.2 L RDW 19.7 H Plt Count 158 MPV 11.1 Neut % (Auto) 85.4 H Lymph % (Auto) 12.3 L [place] % (Auto) 1.4 Eos % (Auto) 0.1 Baso % (Auto) 0.8 Neut # (Auto) 11.2 H Lymph # (Auto) 1.6 [place] # (Auto) 0.2 Eos # (Auto) 0.0 Baso # (Auto) 0.1 Sodium 135 Potassium 3.6 Chloride 109 H Carbon Dioxide 21 L Anion Gap 9 L BUN 33 H Creatinine 2.3 H Est GFR ( Amer) 25 Est GFR (Non-Af Amer) 21 POC Glucose (mg/dL) 143 H Random Glucose 138 H Lactic Acid Calcium 7.6 L Magnesium Total Bilirubin 0.8 AST 16 ALT 37 Alkaline Phosphatase 112 Troponin I 0.0170 Total Protein 3.5 L Albumin 1.6 L D Globulin 1.9 L Albumin/Globulin Ratio 0.9 L Procalcitonin C. difficile Ag & Toxin 03/02/18 23:11 WBC RBC Hgb Hct MCV MCH MCHC RDW Plt Count MPV Neut % (Auto) Lymph % (Auto) [place] % (Auto) Eos % (Auto) Baso % (Auto) Neut # (Auto) Lymph # (Auto) [place] # (Auto) Eos # (Auto) Baso # (Auto) Sodium Potassium Chloride Carbon Dioxide Anion Gap BUN Creatinine Est GFR ( Amer) Est GFR (Non-Af Amer) POC Glucose (mg/dL) Random Glucose Lactic Acid 1.1 Calcium Magnesium Total Bilirubin AST ALT Alkaline Phosphatase Troponin I Total Protein Albumin Globulin Albumin/Globulin Ratio Procalcitonin C. difficile Ag & Toxin - EKG Data EKG comments: Atrial Fibrillation with [id number]/min. No sign of ischemia - Imaging and Cardiology Chest x-ray Status: Image reviewed by me Additional comment: Post intubtion CXR: ET above crina Wires of Thoracotomy Prasad cath at upper right chest wall with tip in right atrium Left basal infiltrate Bibasal pleural effusion Assessment & Plan - Assessment and Plan (Free Text) Plan: 77 years old female with hx of DM II, CKD, MDS and chronic A Fib. She was admitted to the [facility] on 03/01/18 with diagnosis of Pneumonia, having diarrhea and being confused. With the A Fib she has been receiving Atenolol and Digoxin. Code Blue was called tonight, but on arrival the patient was found to have pulses, But was in respiratory distress. The Code was cancelled. The EKG Strip for this time showed two episodes of Sinus Pauses, 8.64 seconds and 6.64 seconds. Decision was made for emergent Orotracheal Intubation. #. Impending Respiratory arrest with metabolic acidosis - Dr Vazquez on Pulmonary Consult - Orothrachial Intubation- Vent settings AC 12, TV 500, FiO2 of reduced to 60, No PEEP because of low Blood Pressure #. A Fib with Bradycardia and Sinus Pauses. Probably due to the Medication - Hold Digoxin - Hold Metoprolol - Atropin given for Bradycardia of 30s and 40s - External Pacing on standby for if the Atropin is ineffective - If Sinus pauses continues, the patient will need a Permanent pacemaker #. Hypotension due to bradycardia and Medication - 500mls Bolos of Normal Saline given - Add Dopamine for Hypotension and to normalize Heart rate #. Pneumonia - Continue Meropenem/ Clindamycin #. Acute on chronic Kidney disease - IV Fluids - follow Rnal labs #. Hypothyroidism - Levothyroxin #. DVT prophylaxis with SCD #.Code Status: Full - Date & Time Date: 03/02/18 Time: 23:42
[2018-03-03] MEDS: Sodium Chloride 0.9% 1,000 ML IV SCH ×3 (00:02→17:34)
[2018-03-03 00:18] LABS: ABG ALLEN TEST YES; ARTERIAL BLOOD GAS HCO3 18.5 mmol/L (21-28); ARTERIAL BLOOD GAS HEMOGLOBIN 8.8 g/dL (11.7-17.4); ARTERIAL BLOOD GAS O2 CAPACITY 12.9 mL/dL (16-24); ARTERIAL BLOOD GAS O2 SAT 100.7 % (95-98); ARTERIAL BLOOD GAS PCO2 38 mm/Hg (35-45); ARTERIAL BLOOD GAS PH 7.28 (7.35-7.45); ARTERIAL BLOOD GAS PO2 355 mm/Hg (80-100); ARTERIAL BLOOD GAS TCO2 19.1 mmol/L (22-28)
[2018-03-03 05:50] LABS: ABG ALLEN TEST YES; ARTERIAL BLOOD GAS HCO3 18.1 mmol/L (21-28); ARTERIAL BLOOD GAS O2 CAPACITY 15.2 mL/dL (16-24); ARTERIAL BLOOD GAS O2 CONTENT 15.2 ML/dL (15-23); ARTERIAL BLOOD GAS O2 SAT 100.1 % (95-98); ARTERIAL BLOOD GAS PCO2 44 mm/Hg (35-45); ARTERIAL BLOOD GAS PH 7.23 (7.35-7.45); ARTERIAL BLOOD GAS PO2 122 mm/Hg (80-100); ARTERIAL BLOOD GAS TCO2 19.8 mmol/L (22-28)
[2018-03-03 06:14] LABS: BASO # 0.1 K/uL (0.0-0.2); BASO % 0.4 % (0.0-2.0); EOS % 0.1 % (0.0-4.0); HEMOGLOBIN 10.5 g/dL (12.0-16.0); LYMPH # 1.1 K/uL (1.0-4.3); LYMPH % 6.7 % (20.0-40.0); MEAN CELL VOLUME 89.9 fl (81.0-99.0); MEAN CORPUSCULAR HEMOGLOBIN 27.9 pg (27.0-31.0); MEAN PLATELET VOLUME 11.1 fl (7.2-11.7); MONO # 0.5 K/uL (0.0-0.8); MONO % 3.3 % (0.0-10.0); NEUT # 14.4 K/uL (1.8-7.0); NEUT % 89.5 % (50.0-75.0); NRBC % 0.1 % (0.0-0.0); RBC 3.78 Mil/uL (3.80-5.20); RED CELL DISTRIBUTION WIDTH 19.3 % (11.5-14.5); WHITE BLOOD COUNT 16.1 K/uL (4.8-10.8)
[2018-03-03 06:17] LABS: CALCIUM 8.1 mg/dL (8.4-10.2)
[2018-03-03] MEDS: Ipratropium 0.02% Inhal Soln (0.5 mg/2.5 ml) UD IH SCH ×4 (07:44→19:28)
--- NOTE | 2018-03-03 08:10 | CP.PCM.CON ---
History of Present Illness - History of Present Illness History of Present Illness: This 77-year-old female is hospitalized for bilateral pneumonia. She was at another institution and was transferred here. She has been in the correction following treatment for sepsis in November. She has a long medical history that consists of coronary artery disease requiring coronary bypass graft surgery in year 1999 followed by multiple coronary stenting in 2008 and 2009. She is a long-standing hypertensive and diabetic who has had atrial fibrillation which was being managed with a beta kristie and digoxin. Oral anticoagulation was discontinued after development of thrombocytopenia. Patient had developed myelodysplastic syndrome approximately a year and a half back and recently developed lymphoma requiring chemotherapy. The patient had developed sepsis following chemotherapy in November and had a prolonged hospitalization. The patient has never developed congestive cardiac failure. She has a long history of COPD and has required broncho-dilators. Last night the patient developed bradycardia and hypotension and labored respiration requiring endotracheal intubation and at this point she is intubated on ventilatory support and sedated. On 60% FiO2 she has a O2 saturation of 100%. She also is on a small dose of dopamine at 4 g per KG per minute and has scanty urine output over last 2 hours. 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 Her blood pressure was 120/74 mmHg while on a dopamine drip at 4 g per KG per minute. Her extremities were warm and nailbeds were pink. There was no central or peripheral cyanosis. The apex was not palpable the first and second heart sounds were normal. There was no murmur or gallop. There were scattered rales. Abdomen was soft no organomegaly was detected. Her electro-cardiogram shows atrial fibrillation with small QRS morphology and what appears like QS waves in 3 and aVF though review off her electrocardiogram of November shows no evidence of an inferior wall myocardial infarction. Review off her echocardiogram couple of months back also shows preserved left ventricular systolic function. Her labs were reviewed. She has moderate degree of leukocytosis and her platelet count has improved. Her BUN/creatinine show moderate azotemia her sodium and potassium levels were normal. There was severe hypoalbuminemia. Impression: Bilateral pneumonia with possible septic shock. Stable coronary artery disease. History of atrial fibrillation (the patient at this juncture displays atrial flutter) diabetes hypertension and chronic kidney disease stage III, history of myelodysplastic syndrome with lymphoma. The patient at this juncture is hemodynamically stable and supported by a very small dose of dopamine. She displays adequate peripheral perfusion. She is being treated for sepsis with appropriate anti-biotics. Given her clinical circumstances her prognosis appears guarded. Past Patient History - Infectious Disease Hx of Infectious Diseases: None - Tetanus Immunizations Tetanus Immunization: Unknown - Past Medical History & Family History Past Medical History?: Yes - Past Social History Smoking Status: Former Smoker Chewing Tobacco Use: No Cigar Use: No Alcohol: None Drugs: Denies - CARDIAC Hx Atrial Fibrillation: Yes Hx Congestive Heart Failure: Yes Hx Hypercholesterolemia: Yes Hx Hypertension: Yes Hx Peripheral Edema: Yes - PULMONARY Hx Chronic Obstructive Pulmonary Disease (COPD): Yes Hx Pneumonia: Yes Hx Sleep Apnea: Yes - NEUROLOGICAL Hx Neurological Disorder: Yes Hx Dementia: Yes - HEENT Hx HEENT Problems: Yes (Hearing loss in the right ear.) Hx Deafness: Yes - RENAL Hx Chronic Kidney Disease: Yes - ENDOCRINE/METABOLIC Hx Diabetes Mellitus Type 2: Yes Hx Hypothyroidism: Yes - HEMATOLOGICAL/ONCOLOGICAL Hx AIDS: No Hx Anemia: Yes Hx Human Immunodeficiency Virus (HIV): No - INTEGUMENTARY Hx Dermatological Problems: Yes Other/Comment: sacral decubiti - MUSCULOSKELETAL/RHEUMATOLOGICAL Hx Back Pain: Yes Hx Degenerative Joint Disease: Yes Hx Falls: Yes Hx Herniated Disk: Yes - GASTROINTESTINAL Hx Gastritis: Yes - GENITOURINARY/GYNECOLOGICAL Hx Incontinence: Yes - PSYCHIATRIC Hx Psychophysiologic Disorder: No Hx Substance Use: No - SURGICAL HISTORY Hx Coronary Artery Bypass Graft: Yes (2000) Hx Coronary Stent: Yes (PCI 2007 and 2010) Hx Orthopedic Surgery: Yes (Bilateral Knee Resplacements) - ANESTHESIA Hx Anesthesia: Yes Hx Anesthesia Reactions: No Hx Malignant Hyperthermia: No Meds Allergies/Adverse Reactions: Allergies Allergy/AdvReac Type Severity Reaction Status Date / Time vancomycin AdvReac Intermediate NAUSEA Verified 03/01/18 16:33 - Medications Medications: Current Medications Acetaminophen (Tylenol 325mg Tab) 650 mg PO Q6 PRN PRN Reason: Fever >100.4 F Acetaminophen (Tylenol 325mg/10.15ml Ud) 975 mg PO Q8 PRN PRN Reason: Pain, moderate (4-7) Atorvastatin Calcium (Lipitor) 10 mg PO HS RUIZ Last Admin: 03/02/18 21:38 Dose: 10 mg Benzonatate (Tessalon Perles) 200 mg PO TID PRN PRN Reason: Cough Cholecalciferol (Vitamin D) 1,000 intlu PO DAILY [facility] Last Admin: 03/02/18 10:43 Dose: 1,000 intlu Digoxin (Digoxin) 0.125 mg PO DAILY [facility] Last Admin: 03/02/18 10:51 Dose: Not Given Dimethicone (Proshield Plus Skin Protectant) 1 applic TOP Q8 PRN PRN Reason: Rash Last Admin: 03/02/18 04:10 Dose: 1 applic Emollient Ointment (Vaseline Oint) 1 pkt TOP BID [facility] Last Admin: 03/02/18 17:47 Dose: 1 pkt Epoetin Rolo (Procrit) 40,000 unit SC WED [facility] Hydralazine HCl (Apresoline) 10 mg PO TID [facility] Clindamycin in NS (Clindamycin 300 Mg/50 Ml-Ns) 300 mg in 50 mls @ 50 mls/hr IVPB Q12 [facility]; Protocol Last Admin: 03/02/18 21:41 Dose: 50 mls/hr Meropenem 500 mg/ Sodium (Chloride) 100 mls @ 100 mls/hr IVPB Q12 [facility]; Protocol Last Admin: 03/02/18 21:41 Dose: 100 mls/hr Dopamine HCl/Dextrose (Dopamine 400mg/250ml D5w) 400 mg in 250 mls @ 4.082 mls/hr IV .Q24H ONE; Protocol Stop: 03/03/18 23:41 Last Titration: 03/03/18 02:15 Dose: 6 mcg/kg/min, 12.247 mls/hr Sodium Chloride (Sodium Chloride 0.9%) 1,000 mls @ 125 mls/hr IV .Q8H [facility] Stop: 03/04/18 07:17 Ipratropium [place] (Atrovent) 0.5 mg IH RQID [facility] Last Admin: 03/03/18 07:44 Dose: 0.5 mg Lactobacillus Acidophilus (Bacid Acidophilus) 1 cap PO BID [facility] Last Admin: 03/02/18 17:48 Dose: Not Given Levalbuterol HCl (Xopenex) 0.63 mg INH RQ4 PRN PRN Reason: Shortness of Breath Levothyroxine Sodium (Synthroid) 40 mcg IVP DAILY@0630 [facility] Losartan Potassium (Cozaar) 50 mg PO DAILY [facility] Mirtazapine (Remeron) 7.5 mg PO HS RUIZ Last Admin: 03/02/18 21:38 Dose: 7.5 mg Nystatin (Nystop Topical Powder) 1 applic TOP TID RUIZ Last Admin: 03/02/18 17:46 Dose: 1 appl Pantoprazole Sodium (Protonix Inj) 40 mg IVP DAILY [facility] Results - Vital Signs Recent Vital Signs: Last Vital Signs Temp 96.6 F L 03/03/18 06:00 Pulse 109 H 03/03/18 06:00 Resp 13 03/03/18 06:00 BP 122/59 L 03/03/18 06:00 Pulse Ox 100 03/03/18 06:00 - Labs Result Diagrams: 03/03/18 05:20 03/03/18 05:20 Labs: Laboratory Results - last 24 hr 03/01/18 03/02/18 03/02/18 17:15 05:30 06:27 WBC RBC Hgb Hct MCV MCH MCHC RDW Plt Count MPV Neut % (Auto) Lymph % (Auto) [place] % (Auto) Eos % (Auto) Baso % (Auto) Neut # (Auto) Lymph # (Auto) [place] # (Auto) Eos # (Auto) Baso # (Auto) pCO2 pO2 HCO3 ABG pH ABG Total CO2 ABG O2 Saturation ABG O2 Content ABG Base Excess ABG Hemoglobin ABG Carboxyhemoglobin POC ABG HHb (Measured) ABG Methemoglobin ABG O2 Capacity [place] Test A-a O2 Difference Hgb O2 Saturation Vent Mode Mechanical Rate FiO2 Tidal Volume PEEP Sodium Potassium Chloride Carbon Dioxide Anion Gap BUN Creatinine Est GFR ( Amer) Est GFR (Non-Af Amer) POC Glucose (mg/dL) 190 H 182 H Random Glucose Lactic Acid Calcium Total Bilirubin AST ALT Alkaline Phosphatase Troponin I Total Protein Albumin Globulin Albumin/Globulin Ratio Procalcitonin 0.44 03/02/18 03/02/18 03/02/18 10:54 16:29 21:49 WBC RBC Hgb Hct MCV MCH MCHC RDW Plt Count MPV Neut % (Auto) Lymph % (Auto) [place] % (Auto) Eos % (Auto) Baso % (Auto) Neut # (Auto) Lymph # (Auto) [place] # (Auto) Eos # (Auto) Baso # (Auto) pCO2 pO2 HCO3 ABG pH ABG Total CO2 ABG O2 Saturation ABG O2 Content ABG Base Excess ABG Hemoglobin ABG Carboxyhemoglobin POC ABG HHb (Measured) ABG Methemoglobin ABG O2 Capacity [place] Test A-a O2 Difference Hgb O2 Saturation Vent Mode Mechanical Rate FiO2 Tidal Volume PEEP Sodium Potassium Chloride Carbon Dioxide Anion Gap BUN Creatinine Est GFR ( Amer) Est GFR (Non-Af Amer) POC Glucose (mg/dL) 160 H 168 H 143 H Random Glucose Lactic Acid Calcium Total Bilirubin AST ALT Alkaline Phosphatase Troponin I Total Protein Albumin Globulin Albumin/Globulin Ratio Procalcitonin 03/02/18 03/02/18 03/02/18 23:11 23:11 23:11 WBC 13.2 H RBC 3.44 L Hgb 9.4 L Hct 31.3 L MCV 90.9 MCH 27.4 MCHC 30.2 L RDW 19.7 H Plt Count 158 MPV 11.1 Neut % (Auto) 85.4 H Lymph % (Auto) 12.3 L [place] % (Auto) 1.4 Eos % (Auto) 0.1 Baso % (Auto) 0.8 Neut # (Auto) 11.2 H Lymph # (Auto) 1.6 [place] # (Auto) 0.2 Eos # (Auto) 0.0 Baso # (Auto) 0.1 pCO2 pO2 HCO3 ABG pH ABG Total CO2 ABG O2 Saturation ABG O2 Content ABG Base Excess ABG Hemoglobin ABG Carboxyhemoglobin POC ABG HHb (Measured) ABG Methemoglobin ABG O2 Capacity [place] Test A-a O2 Difference Hgb O2 Saturation Vent Mode Mechanical Rate FiO2 Tidal Volume PEEP Sodium 135 Potassium 3.6 Chloride 109 H Carbon Dioxide 21 L Anion Gap 9 L BUN 33 H Creatinine 2.3 H Est GFR ( Amer) 25 Est GFR (Non-Af Amer) 21 POC Glucose (mg/dL) Random Glucose 138 H Lactic Acid 1.1 Calcium 7.6 L Total Bilirubin 0.8 AST 16 ALT 37 Alkaline Phosphatase 112 Troponin I 0.0170 Total Protein 3.5 L Albumin 1.6 L D Globulin 1.9 L Albumin/Globulin Ratio 0.9 L Procalcitonin 03/02/18 03/03/18 03/03/18 23:27 05:20 05:20 WBC 16.1 H RBC 3.78 L Hgb 10.5 L Hct 34.0 MCV 89.9 MCH 27.9 MCHC 31.0 L RDW 19.3 H Plt Count 172 MPV 11.1 Neut % (Auto) 89.5 H Lymph % (Auto) 6.7 L [place] % (Auto) 3.3 Eos % (Auto) 0.1 Baso % (Auto) 0.4 Neut # (Auto) 14.4 H Lymph # (Auto) 1.1 [place] # (Auto) 0.5 Eos # (Auto) 0.0 Baso # (Auto) 0.1 pCO2 38 pO2 355 H HCO3 18.5 L ABG pH 7.28 L ABG Total CO2 19.1 L ABG O2 Saturation 100.7 H ABG O2 Content 13.0 L ABG Base Excess -8.2 L ABG Hemoglobin 8.8 L ABG Carboxyhemoglobin 1.7 H POC ABG HHb (Measured) -0.7 L ABG Methemoglobin 2.1 ABG O2 Capacity 12.9 L [place] Test Yes A-a O2 Difference 311.0 Hgb O2 Saturation 96.8 Vent Mode A/c Mechanical Rate 12 FiO2 100.0 Tidal Volume 500 PEEP 0 Sodium 135 Potassium 3.7 Chloride 110 H Carbon Dioxide 20 L Anion Gap 9 L BUN 33 H Creatinine 2.2 H Est GFR ( Amer) 26 Est GFR (Non-Af Amer) 22 POC Glucose (mg/dL) Random Glucose 122 H Lactic Acid Calcium 8.1 L Total Bilirubin AST ALT Alkaline Phosphatase Troponin I Total Protein Albumin Globulin Albumin/Globulin Ratio Procalcitonin 03/03/18 03/03/18 05:42 05:45 WBC RBC Hgb Hct MCV MCH MCHC RDW Plt Count MPV Neut % (Auto) Lymph % (Auto) [place] % (Auto) Eos % (Auto) Baso % (Auto) Neut # (Auto) Lymph # (Auto) [place] # (Auto) Eos # (Auto) Baso # (Auto) pCO2 44 pO2 122 H HCO3 18.1 L ABG pH 7.23 L ABG Total CO2 19.8 L ABG O2 Saturation 100.1 H ABG O2 Content 15.2 ABG Base Excess -8.8 L ABG Hemoglobin 11.0 L ABG Carboxyhemoglobin 2.2 H POC ABG HHb (Measured) -0.1 L ABG Methemoglobin 1.3 ABG O2 Capacity 15.2 L [place] Test Yes A-a O2 Difference 251.0 Hgb O2 Saturation 96.6 Vent Mode A/c Mechanical Rate 12 FiO2 60.0 Tidal Volume 500 PEEP Sodium Potassium Chloride Carbon Dioxide Anion Gap BUN Creatinine Est GFR ( Amer) Est GFR (Non-Af Amer) POC Glucose (mg/dL) 128 H Random Glucose Lactic Acid Calcium Total Bilirubin AST ALT Alkaline Phosphatase Troponin I Total Protein Albumin Globulin Albumin/Globulin Ratio Procalcitonin
[2018-03-03] MEDS ORDERED: Sodium Chloride 0.9% 500 ML IV ONE (08:40)
--- NOTE | 2018-03-03 09:04 | RAD ---
Date of service: 03/03/2018 HISTORY: daily confirmation of ET tube COMPARISON: Portable chest 03/02/2018. FINDINGS: LUNGS: Right MediPort unchanged in position as well as endotracheal tube. Nasogastric tube now placed terminating in left upper quadrant abdomen. Marginally improved aeration is appreciated at the left perihilar and lingular distribution with limited residual noted. Right middle lobe patchy opacity is increased slightly. PLEURA: Small pleural effusion identified. None is seen at the right. No pneumothorax bilaterally. CARDIOVASCULAR: Cardiac silhouette appears stable. No definite pulmonary vascular congestion. No aortic atherosclerotic calcifications identified. OSSEOUS STRUCTURES: Sternotomy wires reiterated. VISUALIZED UPPER ABDOMEN: Normal. OTHER FINDINGS: None. IMPRESSION: Limited further improvement in left perihilar/lingula infiltrate with mild increase in right middle lobe airspace disease. Small pleural effusion identified. None is seen the right. No pneumothorax related. Interval nasogastric tube deployment terminating at left upper quadrant abdomen.
--- NOTE | 2018-03-03 09:19 | RAD ---
Date of service: 03/02/2018 HISTORY: intubation COMPARISON: Portable chest 03/01/2018. FINDINGS: LUNGS: Right MediPort unchanged in position. Endotracheal tube now placed terminating approximately 1.5 cm above the isaiah. Significant reduction in left perihilar/ lingular infiltrate. Borderline right perihilar/medial basilar airspace disease in the interval. PLEURA: No significant pleural effusion identified, no pneumothorax apparent. CARDIOVASCULAR: No aortic atherosclerotic calcification present. Cardiac silhouette stable. Borderline pulmonary vascular congestion. OSSEOUS STRUCTURES: No significant abnormalities. VISUALIZED UPPER ABDOMEN: Normal. OTHER FINDINGS: None. IMPRESSION: Interval improvement in left perihilar/lingular infiltrate with moderate residual. Borderline right medial basilar airspace disease now identified. Borderline pulmonary vascular congestion. ET tube terminates above the isaiah as discussed above.
--- NOTE | 2018-03-03 09:45 | CP.PCM.CON ---
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 Her bradycardia was attributed to B-Stanley and digoxin with her CKD. She also has lymphoma, MDS, CKD-4, and was started on chemoRx, on 02/07/18. Has h/o afib.anticiagulation were DCed in recent past due to thrombocytopenia. Pt is now has A fib-fluttes with VR around 100 and at time is tachycardic. As per cardiology, her bradycardia was due to meds and no other intervention other than DCing BB and Dig is needed. Review of Systems - Review of Systems Systems not reviewed;Unavailable: Unstable Vital Signs - Constitutional Constitutional: As Per HPI - EENT Eyes: As Per HPI - Breasts Breasts: As Per HPI - Cardiovascular Cardiovascular: Irregular Heart Rhythm, Slow Heart Rate - Respiratory Respiratory: As Per HPI - Gastrointestinal Gastrointestinal: As Per HPI - Genitourinary Genitourinary: As Per HPI - Reproductive: Female Reproductive:Female: As Per HPI Past Patient History - Infectious Disease Hx of Infectious Diseases: None - Tetanus Immunizations Tetanus Immunization: Unknown - Past Medical History & Family History Past Medical History?: Yes - Past Social History Smoking Status: Former Smoker Chewing Tobacco Use: No Cigar Use: No Alcohol: None Drugs: Denies Home Situation {Lives}: Longterm - CARDIAC Hx Atrial Fibrillation: Yes Hx Congestive Heart Failure: Yes Hx Hypercholesterolemia: Yes Hx Hypertension: Yes Hx Peripheral Edema: Yes - PULMONARY Hx Chronic Obstructive Pulmonary Disease (COPD): Yes Hx Pneumonia: Yes Hx Sleep Apnea: Yes - NEUROLOGICAL Hx Dementia: Yes - HEENT Hx Deafness: Yes (Right ) - RENAL Hx Chronic Kidney Disease: Yes - ENDOCRINE/METABOLIC Hx Diabetes Mellitus Type 2: Yes Hx Hypothyroidism: Yes - HEMATOLOGICAL/ONCOLOGICAL Hx Anemia: Yes Hx Human Immunodeficiency Virus (HIV): No - INTEGUMENTARY Other/Comment: sacral decubiti - MUSCULOSKELETAL/RHEUMATOLOGICAL Hx Back Pain: Yes Hx Degenerative Joint Disease: Yes Hx Falls: Yes Hx Herniated Disk: Yes - GASTROINTESTINAL Hx Gastritis: Yes - GENITOURINARY/GYNECOLOGICAL Hx Incontinence: Yes - PSYCHIATRIC Hx Psychophysiologic Disorder: No Hx Substance Use: No - SURGICAL HISTORY Hx Coronary Artery Bypass Graft: Yes (2000) Hx Coronary Stent: Yes (PCI 2007 and 2010) Hx Orthopedic Surgery: Yes (Bilateral Knee Resplacements) - ANESTHESIA Hx Anesthesia: Yes Hx Anesthesia Reactions: No Hx Malignant Hyperthermia: No Meds Allergies/Adverse Reactions: Allergies Allergy/AdvReac Type Severity Reaction Status Date / Time vancomycin AdvReac Intermediate NAUSEA Verified 03/01/18 16:33 - Medications Medications: Current Medications Acetaminophen (Tylenol 325mg Tab) 650 mg PO Q6 PRN PRN Reason: Fever >100.4 F Acetaminophen (Tylenol 325mg/10.15ml Ud) 975 mg PO Q8 PRN PRN Reason: Pain, moderate (4-7) Atorvastatin Calcium (Lipitor) 10 mg PO HS [facility] Last Admin: 03/02/18 21:38 Dose: 10 mg Benzonatate (Tessalon Perles) 200 mg PO TID PRN PRN Reason: Cough Cholecalciferol (Vitamin D) 1,000 intlu PO DAILY [facility] Last Admin: 03/02/18 10:43 Dose: 1,000 intlu Digoxin (Digoxin) 0.125 mg PO DAILY [facility] Last Admin: 03/02/18 10:51 Dose: Not Given Dimethicone (Proshield Plus Skin Protectant) 1 applic TOP Q8 PRN PRN Reason: Rash Last Admin: 03/02/18 04:10 Dose: 1 applic Emollient Ointment (Vaseline Oint) 1 pkt TOP BID [facility] Last Admin: 03/02/18 17:47 Dose: 1 pkt Epoetin Rolo (Procrit) 40,000 unit SC WED [facility] Hydralazine HCl (Apresoline) 10 mg PO TID [facility] Clindamycin in NS (Clindamycin 300 Mg/50 Ml-Ns) 300 mg in 50 mls @ 50 mls/hr IVPB Q12 [facility]; Protocol Last Admin: 03/02/18 21:41 Dose: 50 mls/hr Meropenem 500 mg/ Sodium (Chloride) 100 mls @ 100 mls/hr IVPB Q12 [facility]; Protocol Last Admin: 03/02/18 21:41 Dose: 100 mls/hr Sodium Chloride (Sodium Chloride 0.9%) 1,000 mls @ 125 mls/hr IV .Q8H [facility] Stop: 03/04/18 07:17 Norepinephrine Bitartrate 4 mg (/ Dextrose) 254 mls @ 9.53 mls/hr IV .Q24H [facility]; Protocol Sodium Chloride (Sodium Chloride 0.9%) 500 mls @ 500 mls/hr IV .Q1H ONE Stop: 03/03/18 09:39 Ipratropium [place] (Atrovent) 0.5 mg IH RQID [facility] Last Admin: 03/03/18 07:44 Dose: 0.5 mg Lactobacillus Acidophilus (Bacid Acidophilus) 1 cap PO BID [facility] Last Admin: 03/02/18 17:48 Dose: Not Given Levalbuterol HCl (Xopenex) 0.63 mg INH RQ4 PRN PRN Reason: Shortness of Breath Levothyroxine Sodium (Synthroid) 40 mcg IVP DAILY@0630 [facility] Losartan Potassium (Cozaar) 50 mg PO DAILY [facility] Mirtazapine (Remeron) 7.5 mg PO HS [facility] Last Admin: 03/02/18 21:38 Dose: 7.5 mg Nystatin (Nystop Topical Powder) 1 applic TOP TID [facility] Last Admin: 03/02/18 17:46 Dose: 1 appl Pantoprazole Sodium (Protonix Inj) 40 mg IVP DAILY [facility] Physical Exam - Head Exam Head Exam: ATRAUMATIC - Eye Exam Pupil Exam: NORMAL ACCOMODATION - ENT Exam ENT Exam: Mucous Membranes Moist - Respiratory Exam Respiratory Exam: Rales - Cardiovascular Exam Cardiovascular Exam: Bradycardia - Rectal Exam Rectal Exam: Deferred Results - Vital Signs Recent Vital Signs: Last Vital Signs Temp 96.7 F L 03/03/18 08:00 Pulse 109 H 03/03/18 08:00 Resp 16 03/03/18 08:00 BP 122/69 03/03/18 08:00 Pulse Ox 100 03/03/18 08:00 - Labs Result Diagrams: 03/03/18 05:20 03/03/18 05:20 Labs: Laboratory Results - last 24 hr 03/01/18 03/02/18 03/02/18 17:15 05:30 06:27 WBC RBC Hgb Hct MCV MCH MCHC RDW Plt Count MPV Neut % (Auto) Lymph % (Auto) Eddy % (Auto) Eos % (Auto) Baso % (Auto) Neut # (Auto) Lymph # (Auto) Eddy # (Auto) Eos # (Auto) Baso # (Auto) pCO2 pO2 HCO3 ABG pH ABG Total CO2 ABG O2 Saturation ABG O2 Content ABG Base Excess ABG Hemoglobin ABG Carboxyhemoglobin POC ABG HHb (Measured) ABG Methemoglobin ABG O2 Capacity [place] Test A-a O2 Difference Hgb O2 Saturation Vent Mode Mechanical Rate FiO2 Tidal Volume PEEP Sodium Potassium Chloride Carbon Dioxide Anion Gap BUN Creatinine Est GFR ( Amer) Est GFR (Non-Af Amer) POC Glucose (mg/dL) 190 H 182 H Random Glucose Lactic Acid Calcium Total Bilirubin AST ALT Alkaline Phosphatase Troponin I Total Protein Albumin Globulin Albumin/Globulin Ratio Procalcitonin 0.44 03/02/18 03/02/18 03/02/18 10:54 16:29 21:49 WBC RBC Hgb Hct MCV MCH MCHC RDW Plt Count MPV Neut % (Auto) Lymph % (Auto) Eddy % (Auto) Eos % (Auto) Baso % (Auto) Neut # (Auto) Lymph # (Auto) Eddy # (Auto) Eos # (Auto) Baso # (Auto) pCO2 pO2 HCO3 ABG pH ABG Total CO2 ABG O2 Saturation ABG O2 Content ABG Base Excess ABG Hemoglobin ABG Carboxyhemoglobin POC ABG HHb (Measured) ABG Methemoglobin ABG O2 Capacity [place] Test A-a O2 Difference Hgb O2 Saturation Vent Mode Mechanical Rate FiO2 Tidal Volume PEEP Sodium Potassium Chloride Carbon Dioxide Anion Gap BUN Creatinine Est GFR ( Amer) Est GFR (Non-Af Amer) POC Glucose (mg/dL) 160 H 168 H 143 H Random Glucose Lactic Acid Calcium Total Bilirubin AST ALT Alkaline Phosphatase Troponin I Total Protein Albumin Globulin Albumin/Globulin Ratio Procalcitonin 03/02/18 03/02/18 03/02/18 23:11 23:11 23:11 WBC 13.2 H RBC 3.44 L Hgb 9.4 L Hct 31.3 L MCV 90.9 MCH 27.4 MCHC 30.2 L RDW 19.7 H Plt Count 158 MPV 11.1 Neut % (Auto) 85.4 H Lymph % (Auto) 12.3 L Eddy % (Auto) 1.4 Eos % (Auto) 0.1 Baso % (Auto) 0.8 Neut # (Auto) 11.2 H Lymph # (Auto) 1.6 Eddy # (Auto) 0.2 Eos # (Auto) 0.0 Baso # (Auto) 0.1 pCO2 pO2 HCO3 ABG pH ABG Total CO2 ABG O2 Saturation ABG O2 Content ABG Base Excess ABG Hemoglobin ABG Carboxyhemoglobin POC ABG HHb (Measured) ABG Methemoglobin ABG O2 Capacity [place] Test A-a O2 Difference Hgb O2 Saturation Vent Mode Mechanical Rate FiO2 Tidal Volume PEEP Sodium 135 Potassium 3.6 Chloride 109 H Carbon Dioxide 21 L Anion Gap 9 L BUN 33 H Creatinine 2.3 H Est GFR ( Amer) 25 Est GFR (Non-Af Amer) 21 POC Glucose (mg/dL) Random Glucose 138 H Lactic Acid 1.1 Calcium 7.6 L Total Bilirubin 0.8 AST 16 ALT 37 Alkaline Phosphatase 112 Troponin I 0.0170 Total Protein 3.5 L Albumin 1.6 L D Globulin 1.9 L Albumin/Globulin Ratio 0.9 L Procalcitonin 03/02/18 03/03/18 03/03/18 23:27 05:20 05:20 WBC 16.1 H RBC 3.78 L Hgb 10.5 L Hct 34.0 MCV 89.9 MCH 27.9 MCHC 31.0 L RDW 19.3 H Plt Count 172 MPV 11.1 Neut % (Auto) 89.5 H Lymph % (Auto) 6.7 L Eddy % (Auto) 3.3 Eos % (Auto) 0.1 Baso % (Auto) 0.4 Neut # (Auto) 14.4 H Lymph # (Auto) 1.1 Eddy # (Auto) 0.5 Eos # (Auto) 0.0 Baso # (Auto) 0.1 pCO2 38 pO2 355 H HCO3 18.5 L ABG pH 7.28 L ABG Total CO2 19.1 L ABG O2 Saturation 100.7 H ABG O2 Content 13.0 L ABG Base Excess -8.2 L ABG Hemoglobin 8.8 L ABG Carboxyhemoglobin 1.7 H POC ABG HHb (Measured) -0.7 L ABG Methemoglobin 2.1 ABG O2 Capacity 12.9 L [place] Test Yes A-a O2 Difference 311.0 Hgb O2 Saturation 96.8 Vent Mode A/c Mechanical Rate 12 FiO2 100.0 Tidal Volume 500 PEEP 0 Sodium 135 Potassium 3.7 Chloride 110 H Carbon Dioxide 20 L Anion Gap 9 L BUN 33 H Creatinine 2.2 H Est GFR ( Amer) 26 Est GFR (Non-Af Amer) 22 POC Glucose (mg/dL) Random Glucose 122 H Lactic Acid Calcium 8.1 L Total Bilirubin AST ALT Alkaline Phosphatase Troponin I Total Protein Albumin Globulin Albumin/Globulin Ratio Procalcitonin 03/03/18 03/03/18 05:42 05:45 WBC RBC Hgb Hct MCV MCH MCHC RDW Plt Count MPV Neut % (Auto) Lymph % (Auto) Eddy % (Auto) Eos % (Auto) Baso % (Auto) Neut # (Auto) Lymph # (Auto) Eddy # (Auto) Eos # (Auto) Baso # (Auto) pCO2 44 pO2 122 H HCO3 18.1 L ABG pH 7.23 L ABG Total CO2 19.8 L ABG O2 Saturation 100.1 H ABG O2 Content 15.2 ABG Base Excess -8.8 L ABG Hemoglobin 11.0 L ABG Carboxyhemoglobin 2.2 H POC ABG HHb (Measured) -0.1 L ABG Methemoglobin 1.3 ABG O2 Capacity 15.2 L [place] Test Yes A-a O2 Difference 251.0 Hgb O2 Saturation 96.6 Vent Mode A/c Mechanical Rate 12 FiO2 60.0 Tidal Volume 500 PEEP Sodium Potassium Chloride Carbon Dioxide Anion Gap BUN Creatinine Est GFR ( Amer) Est GFR (Non-Af Amer) POC Glucose (mg/dL) 128 H Random Glucose Lactic Acid Calcium Total Bilirubin AST ALT Alkaline Phosphatase Troponin I Total Protein Albumin Globulin Albumin/Globulin Ratio Procalcitonin Assessment & Plan - Assessment and Plan (Free Text) Assessment: Bradycardia Arrhythmia : a fib NICOLE CKD-3 Lymphoma Septic shock PNA Lymphoma h/o CAD Plan: On Vent, continue AC 12/m, Fio: reduce to 50%, IVF bolus NS 500 cc and then 125 cc/h Blood culture Urine culture Broad spectrum Abx: with empirical coverage for gram negative including Pseudomonas, and MRSA DC dopamin start Levophed to Keep MP> 65 IV pepcid Labs, ABG and CXR filn reviewed, d/w shoe trimmer Dr Nunes and Hospitalist, Dr Silva.
[2018-03-03] MEDS: Levothyroxine 100 mcg (0.1 mg) Inj IVP SCH (09:51)
[2018-03-03] MEDS: Proshield Plus GEL TOP PRN (09:53)
[2018-03-03] MEDS: Petrolatum UD PAK TOP SCH ×2 (09:53→16:55)
[2018-03-03] MEDS: Meropenem 500 MG in Sodium Chloride 0.9% 100 ML IVPB SCH ×2 (09:58→20:24)
[2018-03-03] MEDS: Clindamycin in NS 300 MG/50 ML BAG IVPB SCH (09:59)
--- NOTE | 2018-03-03 10:06 | CP.PCM.PN ---
<Syd Ochoa - Last Filed: 03/03/18 17:13> Subjective - Date & Time of Evaluation Date of Evaluation: 03/03/18 Time of Evaluation: 08:15 - Subjective Subjective: Overnight events noted-- Pt had 2 short lived episodes of Asystole, Code Blue called but reversed as she had pulse. Was also noted to be in respiratory distress, acidotic on ABG, intubated and placed on Mechanical Ventilation. Pt's BP was low,unresponsive to fluid challenge, placed on Dopamine drip. This morning, pt's HR was elevated in 120's so she Dopamine was discontinued and she was placed on Levophed drip. Objective - Vital Signs/Intake and Output Vital Signs (last 24 hours): Temp Pulse Resp BP Pulse Ox 96.7 F L 89 16 99/36 L 100 03/03/18 08:00 03/03/18 09:47 03/03/18 08:00 03/03/18 09:47 03/03/18 08:00 Intake and Output: 03/03/18 03/03/18 06:59 18:59 Intake Total 2150 132 Balance 2150 132 - Medications Medications: Current Medications Acetaminophen (Tylenol 325mg Tab) 650 mg PO Q6 PRN PRN Reason: Fever >100.4 F Acetaminophen (Tylenol 325mg/10.15ml Ud) 975 mg PO Q8 PRN PRN Reason: Pain, moderate (4-7) Atorvastatin Calcium (Lipitor) 10 mg PO HS [facility] Last Admin: 03/02/18 21:38 Dose: 10 mg Benzonatate (Tessalon Perles) 200 mg PO TID PRN PRN Reason: Cough Cholecalciferol (Vitamin D) 1,000 intlu PO DAILY [facility] Last Admin: 03/02/18 10:43 Dose: 1,000 intlu Digoxin (Digoxin) 0.125 mg PO DAILY [facility] Last Admin: 03/02/18 10:51 Dose: Not Given Dimethicone (Proshield Plus Skin Protectant) 1 applic TOP Q8 PRN PRN Reason: Rash Last Admin: 03/03/18 09:53 Dose: 1 applic Emollient Ointment (Vaseline Oint) 1 pkt TOP BID [facility] Last Admin: 03/03/18 09:53 Dose: 1 pkt Epoetin Rolo (Procrit) 40,000 unit SC WED [facility] Hydralazine HCl (Apresoline) 10 mg PO TID [facility] Last Admin: 03/03/18 09:47 Dose: Not Given Clindamycin in NS (Clindamycin 300 Mg/50 Ml-Ns) 300 mg in 50 mls @ 50 mls/hr IVPB Q12 [facility]; Protocol Last Admin: 03/03/18 09:59 Dose: 50 mls/hr Meropenem 500 mg/ Sodium (Chloride) 100 mls @ 100 mls/hr IVPB Q12 [facility]; Protocol Last Admin: 03/03/18 09:58 Dose: 100 mls/hr Sodium Chloride (Sodium Chloride 0.9%) 1,000 mls @ 125 mls/hr IV .Q8H [facility] Stop: 03/04/18 07:17 Norepinephrine Bitartrate 4 mg (/ Dextrose) 254 mls @ 9.53 mls/hr IV .Q24H [facility]; Protocol Linezolid (Zyvox 600mg/300ml D5w) 600 mg in 300 mls @ 300 mls/hr IVPB Q12 [facility]; Protocol Ipratropium [place] (Atrovent) 0.5 mg IH RQID [facility] Last Admin: 03/03/18 07:44 Dose: 0.5 mg Lactobacillus Acidophilus (Bacid Acidophilus) 1 cap PO BID [facility] Last Admin: 03/02/18 17:48 Dose: Not Given Levalbuterol HCl (Xopenex) 0.63 mg INH RQ4 PRN PRN Reason: Shortness of Breath Levothyroxine Sodium (Synthroid) 40 mcg IVP DAILY@0630 [facility] Last Admin: 03/03/18 09:51 Dose: 40 mcg Losartan Potassium (Cozaar) 50 mg PO DAILY [facility] Mirtazapine (Remeron) 7.5 mg PO HS [facility] Last Admin: 03/02/18 21:38 Dose: 7.5 mg Nystatin (Nystop Topical Powder) 1 applic TOP TID [facility] Last Admin: 03/03/18 09:53 Dose: 1 appl Pantoprazole Sodium (Protonix Inj) 40 mg IVP DAILY [facility] - Labs Labs: 03/03/18 05:20 03/03/18 05:20 - Constitutional Appears: No Acute Distress - Head Exam Head Exam: NORMAL INSPECTION - Eye Exam Eye Exam: Normal appearance Pupil Exam: PERRL - ENT Exam ENT Exam: Mucous Membranes Moist - Respiratory Exam Respiratory Exam: Decreased Breath Sounds, Rales. absent: Accessory Muscle Use, Wheezes - Cardiovascular Exam Cardiovascular Exam: Tachycardia - GI/Abdominal Exam GI & Abdominal Exam: Soft, Normal Bowel Sounds. absent: Tenderness - Extremities Exam Extremities Exam: Normal Capillary Refill. absent: Pedal Edema - Neurological Exam Neurological Exam: absent: Alert - Skin Skin Exam: Normal Color Assessment and Plan - Assessment and Plan (Free Text) Assessment: A 77 yo female with PMH of HTN, CAD s/p CABG, atrial fibrillation (not on anticoagulation due to thrombocytopenia), B cell lymphoma, MDS s/p chemo with pancytopenia , SIADH was admitted to [facility] for evaluation and treatment of bilateral pneumonia and possible c.diff. Pt went into respiratory failure and was placed on mechanical ventilation on 03/02. Placed on Dopamine drip due to unstable blood pressures, changed to Levophed this morning due to tachycardia. Respiratory Failure -Orotracheal intubation on MV, FIO2 55 BP low -Levophed drip, titrate as needed Left Pneumonia with RIGHT pleural effusion - Afebrile, WBC 13.8 - X-Ray: Increased lingula and left lower lobe airspace disease with mild right middle lobe similar opacity. Trace bilateral pleural effusion are not excluded. No Pulmonary vascular congestion noted. - F/U ID, Dr. Suggs recommendation -F/U Pulm Dr. Vazquez recommendation -Continue 1 L 9% NaCl at rate 125ml/h -Continue Meropenem, 1gm Q8H, day#1 -Continue lindaycin -Linozeled started Sacral Ulcer -Wound care on case - Re-Positioning every 2 hour B-cell lymphoma / MDS (myelodysplastic syndrome) - On chemo - F/u Hematology/oncology consult Dr De Dios History of pancytopenia sec to Chemotherapy - WBC 11.3->13.8, Active infection vs medication -Continue with Procrit Chronic A-fib -Continue Metoprolol 50mg Q12, Digoxin, hydrazaline, Cozaar - no anticoagulation due to thrombocytopenia (Stable) COPD chronic - continue Atrovent and Xopenex - Tessala Perles - Incentive Novice - F/U Dr Vazquez recommendation Hyponatremia, sec to SIADH - stable -Na 136 Hypothyroid - Chronic, controlled - Continue Levothyroxine 75mcg daily CKD stage III - stable Hypertension / CAD - Resumed home meds - controlled Hearing loss - possible medication induced or age related - out pt follow up C.diff -Continue with Diarrhea but improved, no diarrhea. -C. Diff negative DVT PPX - SCD for now, Hx of thrombocytopenia <Peyton Silva - Last Filed: 03/06/18 17:21> Objective - Vital Signs/Intake and Output Vital Signs (last 24 hours): Temp Pulse Resp BP Pulse Ox 98.1 F 107 H 19 122/63 100 03/06/18 16:00 03/06/18 16:00 03/06/18 16:00 03/06/18 16:12 03/06/18 16:00 Intake and Output: 03/06/18 03/06/18 06:59 18:59 Intake Total 1720 998 Output Total 100 65 Balance 1620 933 - Medications Medications: Current Medications Acetaminophen (Tylenol 325mg Tab) 650 mg PO Q6 PRN PRN Reason: Fever >100.4 F Acetaminophen (Tylenol 325mg/10.15ml Ud) 975 mg PO Q8 PRN PRN Reason: Pain, moderate (4-7) Albumin Human (Albumin Human 5% (12.5 Gm/250 Ml)) 12.5 gm IV Q10H [facility] Stop: 03/06/18 22:16 Last Admin: 03/06/18 13:32 Dose: 12.5 gm Ascorbic Acid (Vitamin C 500 Mg Tab) 500 mg PO BID [facility] Last Admin: 03/06/18 16:18 Dose: 500 mg Atorvastatin Calcium (Lipitor) 10 mg PO HS [facility] Last Admin: 03/05/18 21:13 Dose: 10 mg Cholecalciferol (Vitamin D) 1,000 intlu PO DAILY [facility] Last Admin: 03/06/18 09:42 Dose: 1,000 intlu Dextrose (Dextrose 50% Inj) 0 ml IV STAT PRN; Protocol PRN Reason: Hypoglycemia Protocol Dextrose (Glutose 15) 0 gm PO ONCE PRN; Protocol PRN Reason: Hypoglycemia Protocol Digoxin (Digoxin) 0.125 mg PO DAILY [facility] Last Admin: 03/02/18 10:51 Dose: Not Given Dimethicone (Proshield Plus Skin Protectant) 1 applic TOP Q8 PRN PRN Reason: Rash Last Admin: 03/03/18 09:53 Dose: 1 applic Emollient Ointment (Vaseline Oint) 1 pkt TOP BID [facility] Last Admin: 03/06/18 16:18 Dose: 1 pkt Epoetin Rolo (Procrit) 40,000 unit SC WED [facility] Furosemide (Lasix) 60 mg IV Q12H [facility] Last Admin: 03/06/18 16:12 Dose: 60 mg Glucagon (Glucagen Diagnostic Kit) 0 mg IM STAT PRN; Protocol PRN Reason: Hypoglycemia Protocol Heparin Sodium (Porcine) (Heparin) 5,000 units SC Q8 [facility]; Protocol Last Admin: 03/06/18 16:13 Dose: 5,000 units Hydrocortisone Sodium Succinate (Solu-Cortef) 50 mg IV Q12H [facility] Last Admin: 03/06/18 09:36 Dose: 50 mg Ceftaroline Fosamil 300 mg/ (Sodium Chloride) 100 mls @ 100 mls/hr IVPB Q12 [facility]; Protocol Last Admin: 03/06/18 09:43 Dose: 100 mls/hr Linezolid (Zyvox 600mg/300ml D5w) 600 mg in 300 mls @ 300 mls/hr IVPB Q12 [facility]; Protocol Last Admin: 03/06/18 10:00 Dose: 300 mls/hr Fluconazole (Diflucan Iv 100 Mg/50 Ml Ns) 50 mls @ 50 mls/hr IVPB DAILY [facility]; Protocol Last Admin: 03/06/18 09:29 Dose: 50 mls/hr Insulin Detemir (Levemir) 8 units SC HS [facility] Insulin Human Regular (Humulin R) 0 units SC ACCU-CHECK [facility]; Protocol Last Admin: 03/06/18 16:16 Dose: 4 unit Ipratropium [place] (Atrovent) 0.5 mg IH RQID [facility] Last Admin: 03/06/18 15:27 Dose: 0.5 mg Lactobacillus Acidophilus (Bacid Acidophilus) 1 cap PO BID [facility] Last Admin: 03/06/18 16:13 Dose: 1 cap Levalbuterol HCl (Xopenex) 0.63 mg INH RQID [facility] Last Admin: 03/06/18 15:27 Dose: 0.63 mg Levothyroxine Sodium (Synthroid) 40 mcg IVP DAILY@0630 [facility] Last Admin: 03/06/18 05:47 Dose: 40 mcg Lorazepam (Ativan) 2 mg IVP Q3 PRN PRN Reason: Agitation Last Admin: 03/04/18 06:42 Dose: 2 mg Mirtazapine (Remeron) 7.5 mg PO HS [facility] Last Admin: 03/05/18 21:17 Dose: 7.5 mg Nystatin (Nystop Topical Powder) 1 applic TOP TID [facility] Last Admin: 03/06/18 16:18 Dose: 1 appl Pantoprazole Sodium (Protonix Inj) 40 mg IVP DAILY [facility] Last Admin: 03/06/18 09:35 Dose: 40 mg Thiamine HCl (Vitamin B1 Inj) 100 mg IM DAILY [facility] Last Admin: 03/06/18 09:39 Dose: 100 mg - Labs Labs: 03/06/18 04:30 03/06/18 04:30 PT 11.2 Seconds (9.8-13.1) 03/06/18 04:30 INR 1.0 03/06/18 04:30 APTT 41.3 Seconds (25.6-37.1) H 03/06/18 04:30 Attending/Attestation - Attestation I have personally seen and examined this patient.: Yes I have fully participated in the care of the patient.: Yes I have reviewed all pertinent clinical information, including history, physical exam and plan: Yes Notes (Text): 03/06/18 17:21 Seen examined and discussed with resident. Agree with findings and plan as above.
--- NOTE | 2018-03-03 10:38 | CP.PCM.PN ---
Subjective - Date & Time of Evaluation Date of Evaluation: 03/03/18 Time of Evaluation: 10:25 - Subjective Subjective: Interim events reviewed. Seen on rounds in ICU, orally intubated and mechanically ventilated. Discussed case with nursing at bedside. Chest x-ray reviewed, labs reviewed. Hypothermic and hypotensive, well oxygenated. RR 12/12 BPM. PAP 26cm (after decrease in Vt to .45), plateau 21cm, MAP 6cm. Pressor support needed to maintain BP, being switched to levophed because of tachycardia. BP presently 92/40mmHg. EtCO2 17. Opens eyes, does not follow commands. Neck is supple and trachea midline. No dullness to percussion of the anterior chest wall. No subcutaneous emphysema palpated. No cyanosis, extremities are warm to touch. Trace to + dependant edema. No cyanosis. Breath sounds are present equally in both lungs. Anteriorly BS are clear, posteriorly bronchial sounds on left. More rhonchi than bronchial; sounds on the right posteriorly. No audible wheezing heard in either lung. Suctioned small amount of very thick brownish/blood tinged secretions. Sputum sent to [place] for culture. VT reduced to .45, FiO2 reduced to .55, rate unchanged. Continue present antibiotic regimen for now. Pressor support as needed (received 500ml fluid bolus recently). Add solucortef (low dose), thiamine and vitamin C for suspected septic shock. Objective - Vital Signs/Intake and Output Vital Signs (last 24 hours): Temp Pulse Resp BP Pulse Ox 96.7 F L 89 16 99/36 L 100 03/03/18 08:00 03/03/18 09:47 03/03/18 08:00 03/03/18 09:47 03/03/18 08:00 Intake and Output: 03/02/18 03/03/18 23:59 11:59 Intake Total 1000 1282 Balance 1000 1282 - Medications Medications: Current Medications Acetaminophen (Tylenol 325mg Tab) 650 mg PO Q6 PRN PRN Reason: Fever >100.4 F Acetaminophen (Tylenol 325mg/10.15ml Ud) 975 mg PO Q8 PRN PRN Reason: Pain, moderate (4-7) Atorvastatin Calcium (Lipitor) 10 mg PO HS [facility] Last Admin: 03/02/18 21:38 Dose: 10 mg Benzonatate (Tessalon Perles) 200 mg PO TID PRN PRN Reason: Cough Cholecalciferol (Vitamin D) 1,000 intlu PO DAILY [facility] Last Admin: 03/02/18 10:43 Dose: 1,000 intlu Digoxin (Digoxin) 0.125 mg PO DAILY [facility] Last Admin: 03/02/18 10:51 Dose: Not Given Dimethicone (Proshield Plus Skin Protectant) 1 applic TOP Q8 PRN PRN Reason: Rash Last Admin: 03/03/18 09:53 Dose: 1 applic Emollient Ointment (Vaseline Oint) 1 pkt TOP BID [facility] Last Admin: 03/03/18 09:53 Dose: 1 pkt Epoetin Rolo (Procrit) 40,000 unit SC WED [facility] Hydralazine HCl (Apresoline) 10 mg PO TID [facility] Last Admin: 03/03/18 09:47 Dose: Not Given Clindamycin in NS (Clindamycin 300 Mg/50 Ml-Ns) 300 mg in 50 mls @ 50 mls/hr IVPB Q12 [facility]; Protocol Last Admin: 03/03/18 09:59 Dose: 50 mls/hr Meropenem 500 mg/ Sodium (Chloride) 100 mls @ 100 mls/hr IVPB Q12 [facility]; Protocol Last Admin: 03/03/18 09:58 Dose: 100 mls/hr Sodium Chloride (Sodium Chloride 0.9%) 1,000 mls @ 125 mls/hr IV .Q8H [facility] Stop: 03/04/18 07:17 Norepinephrine Bitartrate 4 mg (/ Dextrose) 254 mls @ 9.53 mls/hr IV .Q24H [facility]; Protocol Linezolid (Zyvox 600mg/300ml D5w) 600 mg in 300 mls @ 300 mls/hr IVPB Q12 [facility]; Protocol Ipratropium [place] (Atrovent) 0.5 mg IH RQID [facility] Last Admin: 03/03/18 07:44 Dose: 0.5 mg Lactobacillus Acidophilus (Bacid Acidophilus) 1 cap PO BID [facility] Last Admin: 03/02/18 17:48 Dose: Not Given Levalbuterol HCl (Xopenex) 0.63 mg INH RQID [facility] Levothyroxine Sodium (Synthroid) 40 mcg IVP DAILY@0630 [facility] Last Admin: 03/03/18 09:51 Dose: 40 mcg Losartan Potassium (Cozaar) 50 mg PO DAILY [facility] Mirtazapine (Remeron) 7.5 mg PO HS [facility] Last Admin: 03/02/18 21:38 Dose: 7.5 mg Nystatin (Nystop Topical Powder) 1 applic TOP TID [facility] Last Admin: 03/03/18 09:53 Dose: 1 appl Pantoprazole Sodium (Protonix Inj) 40 mg IVP DAILY [facility] Last Admin: 03/03/18 10:14 Dose: 40 mg - Labs Labs: 03/03/18 05:20 03/03/18 05:20 Assessment and Plan (1) Bronchopneumonia Status: Acute (2) Sacral decubitus ulcer Status: Acute (3) Toxic metabolic encephalopathy Status: Acute (4) B-cell lymphoma Status: Chronic (5) COPD (chronic obstructive pulmonary disease) Status: Chronic
[2018-03-03] MEDS: Cholecalciferol 1,000 INTLU TAB PO SCH (10:43)
[2018-03-03] MEDS: Lactobacillus Acidophilus 500 MU Cap PO SCH ×2 (10:46→16:58)
[2018-03-03] MEDS ORDERED: Hydrocortisone- 50 MG in Sodium Chloride 0.9% 100 ML IV SCH (11:00)
[2018-03-03] MEDS: Levalbuterol 0.63 MG/3 ML Inhal Soln UD INH SCH ×3 (11:11→19:28)
[2018-03-03] MEDS: Linezolid 600 mg in D5W 300 ml 600 MG/300 ML BAG IVPB SCH ×2 (11:33→20:24)
[2018-03-03] MEDS: Thiamine 100 mg/ml Inj IM SCH (11:37)
--- NOTE | 2018-03-03 13:48 | CARD ---
APPROVED REPORT Date of service: 03/03/2018 EKG Measurement Heart [id number] <Conclusion> Normal sinus rhythm Left axis deviation Low voltage QRS Possible Inferior infarct, age undetermined Possible Anterolateral infarct, age undetermined Abnormal ECG
[2018-03-03 15:17] LABS: CALCIUM 7.6 mg/dL (8.4-10.2)
--- NOTE | 2018-03-03 15:32 | CP.PCM.PN ---
Subjective - Date & Time of Evaluation Date of Evaluation: 03/03/18 Time of Evaluation: 15:20 - Subjective Subjective: I D NOTE PATIENT WAS PLACED ON RESPIRATOR DURING OVERNIGHT WAS SEVERELY BRADYCARDIC WBC IS NOW 16,WOUND CARE TOOK CULTURES YESTERDAY AND SO FAR WE HAVE GRAM (+) COCCI & GRAN (-) rods BUT NO IDENTIFICATION OR SENSITIVITY. ALSO ON LEVOPHED (5 MICS). MINIMALLY RESPONSIVE PLAN:PER ANTIBIOTICS :ZYVOX/TEFLARO/MEROPENEM WE AWAIT CULTURE RESULTS Objective - Vital Signs/Intake and Output Vital Signs (last 24 hours): Temp Pulse Resp BP Pulse Ox 98.4 F 86 15 93/65 L 100 03/03/18 12:00 03/03/18 15:00 03/03/18 15:00 03/03/18 15:00 03/03/18 15:00 Intake and Output: 03/03/18 03/03/18 06:59 18:59 Intake Total 2150 1544 Balance 2150 1544 - Medications Medications: Current Medications Acetaminophen (Tylenol 325mg Tab) 650 mg PO Q6 PRN PRN Reason: Fever >100.4 F Acetaminophen (Tylenol 325mg/10.15ml Ud) 975 mg PO Q8 PRN PRN Reason: Pain, moderate (4-7) Ascorbic Acid (Vitamin C Liq) 500 mg PO BID [facility] Atorvastatin Calcium (Lipitor) 10 mg PO HS [facility] Last Admin: 03/02/18 21:38 Dose: 10 mg Benzonatate (Tessalon Perles) 200 mg PO TID PRN PRN Reason: Cough Cholecalciferol (Vitamin D) 1,000 intlu PO DAILY [facility] Last Admin: 03/03/18 10:43 Dose: 1,000 intlu Digoxin (Digoxin) 0.125 mg PO DAILY [facility] Last Admin: 03/02/18 10:51 Dose: Not Given Dimethicone (Proshield Plus Skin Protectant) 1 applic TOP Q8 PRN PRN Reason: Rash Last Admin: 03/03/18 09:53 Dose: 1 applic Emollient Ointment (Vaseline Oint) 1 pkt TOP BID [facility] Last Admin: 03/03/18 09:53 Dose: 1 pkt Epoetin Rolo (Procrit) 40,000 unit SC WED [facility] Hydralazine HCl (Apresoline) 10 mg PO TID [facility] Last Admin: 03/03/18 09:47 Dose: Not Given Hydrocortisone Sodium Succinate (Solu-Cortef) 50 mg IV Q8H [facility] Last Admin: 03/03/18 11:40 Dose: 50 mg Meropenem 500 mg/ Sodium (Chloride) 100 mls @ 100 mls/hr IVPB Q12 [facility]; Protocol Last Admin: 03/03/18 09:58 Dose: 100 mls/hr Sodium Chloride (Sodium Chloride 0.9%) 1,000 mls @ 125 mls/hr IV .Q8H [facility] Stop: 03/04/18 07:17 Last Admin: 03/03/18 07:30 Dose: 125 mls/hr Norepinephrine Bitartrate 4 mg (/ Dextrose) 254 mls @ 9.53 mls/hr IV .Q24H [facility]; Protocol Last Titration: 03/03/18 11:43 Dose: 5 mcg/min, 19.05 mls/hr Linezolid (Zyvox 600mg/300ml D5w) 600 mg in 300 mls @ 300 mls/hr IVPB Q12 [facility]; Protocol Last Admin: 03/03/18 11:33 Dose: 300 mls/hr Ceftaroline Fosamil 300 mg/ (Sodium Chloride) 100 mls @ 100 mls/hr IVPB Q12 [facility]; Protocol Ipratropium [place] (Atrovent) 0.5 mg IH RQID [facility] Last Admin: 03/03/18 11:11 Dose: 0.5 mg Lactobacillus Acidophilus (Bacid Acidophilus) 1 cap PO BID [facility] Last Admin: 03/03/18 10:46 Dose: 1 cap Levalbuterol HCl (Xopenex) 0.63 mg INH RQID [facility] Last Admin: 03/03/18 11:11 Dose: 0.63 mg Levothyroxine Sodium (Synthroid) 40 mcg IVP DAILY@0630 [facility] Last Admin: 03/03/18 09:51 Dose: 40 mcg Losartan Potassium (Cozaar) 50 mg PO DAILY [facility] Mirtazapine (Remeron) 7.5 mg PO HS [facility] Last Admin: 03/02/18 21:38 Dose: 7.5 mg Nystatin (Nystop Topical Powder) 1 applic TOP TID [facility] Last Admin: 03/03/18 09:53 Dose: 1 appl Pantoprazole Sodium (Protonix Inj) 40 mg IVP DAILY [facility] Last Admin: 03/03/18 10:14 Dose: 40 mg Thiamine HCl (Vitamin B1 Inj) 100 mg IM DAILY [facility] Last Admin: 03/03/18 11:37 Dose: 100 mg - Labs Labs: 03/03/18 05:20 03/03/18 14:47
[2018-03-03] MEDS: Ascorbic Acid 500 mg/5 ml Liq(50 ml) PO SCH ×2 (16:55→17:01)
--- NOTE | 2018-03-03 23:58 | CON ---
DATE: 03/03/2018 INFECTIOUS DISEASE CONSULTATION HISTORY OF PRESENT ILLNESS: The patient is a 77-year-old female who was just transferred from [facility]. The patient is has history significant for chronic atrial fib, coronary artery disease, COPD, hypertension, type 2 diabetes mellitus, congestive heart failure, myelodysplastic syndrome, and B-cell lymphoma. She has been receiving chemotherapy at [facility] for both of the co-malignancies. She also was transferred to [facility] between treatments. While at the [facility] recently, she was transferred to [facility] because of pneumonia and at the family's request was transferred back here for continued care. While at the facility, she had developed multiple sacral decubiti and the family initiatied transfer. Her surgical history includes bilateral knee replacements coronary artery bypass surgery. The patient presently is intubated, minimally responsive. She apparently had UTI and pneumonia while at [facility]. I have no culture results from to review. PHYSICAL EXAMINATION: HEENT: The patient intubated, but essentially within normal limits. NECK: Essentially supple. ABDOMEN: Soft, with positive bowel sounds. HEART: Bradycardic on the monitor. LUNGS: The patient has rales in both bases and rhonchi at right base. EXTREMITIES: No CCE. She has multiple decubitus on the sacral area on the back which were attended by wound management. LABORATORY DATA: Micro so far just shows negative rods and gram-positive cocci. She has a creatinine of 2.2 and GFR of 22. Her albumin is 1.6, globulin 1.9, albumin to globulin ratio is 0.9. Random glucoses are 108, 138 and 122 noted. C. difficile is negative as that she had an issue with that over at [facility]. Urinalysis shows rbc's 17 and wbc's 11. Chest x-ray has left tayler-intralingular infiltrate with mild increase in right middle lobe airspace disease, small pleural effusion is noted. IMPRESSION: She has respiratory failure, bradycardia, sepsis, etiology being possibly pneumonia versus decubitus versus methicillin-resistant Staphylococcus aureus urinary tract infection. At present moment, I have decided to cover her with Zyvox 600 mg intravenous piggyback every 12 hours for the possibility of methicillin-resistant Staphylococcus aureus, Teflaro 300 mg intravenous piggyback every 12 hours also, and meropenem 500 mg intravenous piggyback every 12 hours. Awaiting culture results before we can you know streamline or alter the treatment. The patient is also with history of myelodysplastic syndrome, B-cell lymphoma, hypertension, congestive heart failure, coronary artery disease, chronic obstructive pulmonary disease, and diabetes. Paresh Suggs MD JOANNA
[2018-03-04] MEDS: Levothyroxine 100 mcg (0.1 mg) Inj IVP SCH (05:30)
[2018-03-04 05:31] LABS: BASO # 0.1 K/uL (0.0-0.2); BASO % 0.5 % (0.0-2.0); HEMOGLOBIN 9.1 g/dL (12.0-16.0); LYMPH # 1.3 K/uL (1.0-4.3); LYMPH % 9.1 % (20.0-40.0); MEAN CELL VOLUME 89.2 fl (81.0-99.0); MEAN CORPUSCULAR HEMOGLOBIN 27.4 pg (27.0-31.0); MEAN CORPUSCULAR HGB CONC 30.8 g/dL (33.0-37.0); MONO # 0.1 K/uL (0.0-0.8); NEUT # 12.3 K/uL (1.8-7.0); NEUT % 89.4 % (50.0-75.0); NRBC % 0.1 % (0.0-0.0); RBC 3.32 Mil/uL (3.80-5.20); RED CELL DISTRIBUTION WIDTH 19.1 % (11.5-14.5); WHITE BLOOD COUNT 13.8 K/uL (4.8-10.8)
[2018-03-04] MEDS: Sodium Chloride 0.9% 1,000 ML IV SCH (05:33)
[2018-03-04 05:38] LABS: ABG ALLEN TEST YES; ARTERIAL BLOOD GAS HCO3 17.2 mmol/L (21-28); ARTERIAL BLOOD GAS HEMOGLOBIN 9.8 g/dL (11.7-17.4); ARTERIAL BLOOD GAS O2 CAPACITY 13.7 mL/dL (16-24); ARTERIAL BLOOD GAS O2 CONTENT 13.7 ML/dL (15-23); ARTERIAL BLOOD GAS O2 SAT 100.2 % (95-98); ARTERIAL BLOOD GAS PCO2 35 mm/Hg (35-45); ARTERIAL BLOOD GAS PH 7.27 (7.35-7.45); ARTERIAL BLOOD GAS PO2 157 mm/Hg (80-100); ARTERIAL BLOOD GAS TCO2 17.2 mmol/L (22-28)
[2018-03-04 05:53] LABS: CALCIUM 7.1 mg/dL (8.4-10.2)
[2018-03-04] MEDS ORDERED: Magnesium Sulfate 2 gm/50 ml 2 GM/50 ML BAG IVPB ONE ×2 (05:53→09:00)
[2018-03-04] MEDS: Levalbuterol 0.63 MG/3 ML Inhal Soln UD INH SCH ×4 (07:23→19:18)
[2018-03-04] MEDS: Ipratropium 0.02% Inhal Soln (0.5 mg/2.5 ml) UD IH SCH ×4 (07:23→19:18)
--- NOTE | 2018-03-04 08:04 | CP.CCUPN ---
CCU Subjective - Physician Review Events Since Last Encounter (Free Text): 03/04/18 08:01 Sedated , intubated, no more bradycardia but BP has been low but slightly improvement with IVF bolus and drip, able to taper off Levophed last night but will start again as BP is lower now and has been getting IVF, which will be reduced, pt has been oliguric, even with IVF boluses. No deterioration in blood work, K is low and also magnesium, will replace. Will start tube feeding. CCU Objective - Vital Signs / Intake & Output Vital Signs (Last 4 hours): Vital Signs Pulse Resp BP Pulse Ox 03/04/18 07:00 93 H 14 119/54 L 100 03/04/18 06:00 91 H 14 121/63 100 03/04/18 05:30 92 H 14 110/37 L 100 03/04/18 05:00 89 14 146/59 L 100 03/04/18 04:30 88 14 117/52 L 100 Intake and Output (Last 8hrs): Intake & Output 03/03/18 03/04/18 03/04/18 22:59 06:59 14:59 Intake Total 1284 1450 Output Total 30 35 Balance 1254 1415 Weight 164 lb Intake: IV 1084 1150 Intake, Piggyback 200 300 Output: Urine 30 35 Urethral ([place]) 30 35 - Physical Exam Narrative Physical Exam (Free Text): 03/04/18 08:04 P/E Neck: No JVD Lungs: Rt basal crackles Abdomen : soft, non-tender Ext: no edema Heart: No gallop. - Medications Active Medications: Active Medications Generic Name Dose Route Start Last Admin Trade Name Freq PRN Reason Stop Dose Admin Acetaminophen 650 mg 03/02/18 04:23 Tylenol 325mg Tab PO Q6 PRN Fever >100.4 F Acetaminophen 975 mg 03/02/18 21:45 Tylenol 325mg/10.15ml Ud PO Q8 PRN Pain, moderate (4-7) Ascorbic Acid 500 mg 03/03/18 10:45 03/03/18 17:01 Vitamin C Liq PO Not Given BID [facility] Atorvastatin Calcium 10 mg 03/01/18 22:00 03/03/18 21:27 Lipitor PO 10 mg HS [facility] Administration Benzonatate 200 mg 03/01/18 20:33 Tessalon Perles PO TID PRN Cough Cholecalciferol 1,000 intlu 03/02/18 09:00 03/03/18 10:43 Vitamin D PO 1,000 intlu DAILY [facility] Administration Digoxin 0.125 mg 03/02/18 09:00 03/02/18 10:51 Digoxin PO Not Given DAILY [facility] Dimethicone 1 applic 03/01/18 19:56 03/03/18 09:53 Proshield Plus Skin Protectant TOP 1 applic Q8 PRN Administration Rash Emollient Ointment 1 pkt 03/02/18 09:00 03/03/18 16:55 Vaseline Oint TOP 1 pkt BID [facility] Administration Epoetin Rolo 40,000 unit 03/07/18 09:00 Procrit SC WED [facility] Hydralazine HCl 10 mg 03/03/18 01:06 03/03/18 09:47 Apresoline PO Not Given TID [facility] Hydrocortisone Sodium Succinate 50 mg 03/03/18 10:45 03/04/18 01:45 Solu-Cortef IV 50 mg Q8H [facility] Administration Meropenem 500 mg/ Sodium 100 mls @ 100 mls/hr 03/02/18 21:00 03/03/18 20:24 Chloride IVPB 100 mls/hr Q12 [facility] Administration Protocol Norepinephrine Bitartrate 4 mg 254 mls @ 9.53 mls/hr 03/03/18 08:45 03/04/18 01:46 / Dextrose IV 2.5 mcg/min .Q24H [facility] 9.53 mls/hr Administration Protocol 2.5 MCG/MIN Linezolid 600 mg in 300 mls @ 300 mls/hr 03/03/18 09:45 03/03/18 20:24 Zyvox 600mg/300ml D5w IVPB 300 mls/hr Q12 [facility] Administration Protocol Ceftaroline Fosamil 300 mg/ 100 mls @ 100 mls/hr 03/03/18 21:00 03/03/18 20:24 Sodium Chloride IVPB 100 mls/hr Q12 [facility] Administration Protocol Ipratropium [place] 0.5 mg 03/01/18 20:00 03/04/18 07:23 Atrovent IH 0.5 mg RQID [facility] Administration Lactobacillus Acidophilus 1 cap 03/02/18 09:00 03/03/18 16:58 Bacid Acidophilus PO 1 cap BID [facility] Administration Levalbuterol HCl 0.63 mg 03/03/18 12:00 03/04/18 07:23 Xopenex INH 0.63 mg RQID [facility] Administration Levothyroxine Sodium 40 mcg 03/03/18 06:30 03/04/18 05:30 Synthroid IVP 40 mcg DAILY@0630 [facility] Administration Lorazepam 2 mg 03/03/18 19:59 03/04/18 06:42 Ativan IVP 2 mg Q3 PRN Administration Agitation Losartan Potassium 50 mg 03/02/18 23:19 Cozaar PO DAILY [facility] Mirtazapine 7.5 mg 03/01/18 22:00 03/03/18 21:27 Remeron PO 7.5 mg HS [facility] Administration Nystatin 1 applic 03/02/18 17:00 03/03/18 17:00 Nystop Topical Powder TOP 1 appl TID [facility] Administration Pantoprazole Sodium 40 mg 03/03/18 09:00 03/03/18 10:14 Protonix Inj IVP 40 mg DAILY [facility] Administration Thiamine HCl 100 mg 03/03/18 10:45 03/03/18 11:37 Vitamin B1 Inj IM 100 mg DAILY [facility] Administration - Patient Studies Lab Studies: Microbiology Studies 03/03/18 14:06 Gram Stain - Final Trachasp 03/01/18 17:30 Blood Culture - Preliminary Blood-Venous NO GROWTH AFTER 48 HOURS 03/02/18 18:54 Gram Stain - Final Sacral Wound Culture - Preliminary Gram Negative [place] Gram Positive Cocci Lab Studies 03/04/18 03/04/18 03/04/18 Range/Units 05:32 04:29 04:29 WBC (4.8-10.8) K/uL RBC (3.80-5.20) Mil/uL Hgb (12.0-16.0) g/dL Hct (34.0-47.0) % MCV (81.0-99.0) fl MCH (27.0-31.0) pg MCHC (33.0-37.0) g/dL RDW (11.5-14.5) % Plt Count (130-400) K/uL MPV (7.2-11.7) fl Neut % (Auto) (50.0-75.0) % Lymph % (Auto) (20.0-40.0) % Worth % (Auto) (0.0-10.0) % Eos % (Auto) (0.0-4.0) % Baso % (Auto) (0.0-2.0) % Neut # (Auto) (1.8-7.0) K/uL Lymph # (Auto) (1.0-4.3) K/uL Worth # (Auto) (0.0-0.8) K/uL Eos # (Auto) (0.0-0.7) K/uL Baso # (Auto) (0.0-0.2) K/uL pCO2 35 (35-45) mm/Hg pO2 157 H (80-100) mm/Hg HCO3 17.2 L (21-28) mmol/L ABG pH 7.27 L (7.35-7.45) ABG Total CO2 17.2 L (22-28) mmol/L ABG O2 Saturation 100.2 H (95-98) % ABG O2 Content 13.7 L (15-23) ML/dL ABG Base Excess -9.9 L (-2.0-3.0) mmol/L ABG Hemoglobin 9.8 L (11.7-17.4) g/dL ABG Carboxyhemoglobin 1.8 H (0.5-1.5) % POC ABG HHb (Measured) -0.2 L (0.0-5.0) % ABG Methemoglobin 1.3 (0.0-3.0) % ABG O2 Capacity 13.7 L (16-24) mL/dL [place] Test Yes A-a O2 Difference 191.0 mm/Hg Hgb O2 Saturation 97.1 (95.0-98.0) % Vent Mode A/c Mechanical Rate 12 FiO2 55.0 % Tidal Volume 450 Sodium 132 (132-148) mmol/l Potassium 3.4 L (3.6-5.0) MMOL/L Chloride 110 H (98-107) mmol/L Carbon Dioxide 17 L (22-30) mmol/L Anion Gap 8 L (10-20) BUN 31 H (7-17) mg/dl Creatinine 2.2 H (0.7-1.2) mg/dl Est GFR ( Amer) 26 Est GFR (Non-Af Amer) 22 POC Glucose (mg/dL) (65-110) mg/dL Random Glucose 154 H (65-105) mg/dL Calcium 7.1 L (8.4-10.2) mg/dL Phosphorus 4.0 (2.5-4.5) mg/dl Magnesium 1.0 L* (1.6-2.3) MG/DL Influenza Typ A,B (EIA) Negative for flu a/b (NEGATIVE) 03/04/18 03/03/18 03/03/18 Range/Units 04:29 21:06 16:41 WBC 13.8 H (4.8-10.8) K/uL RBC 3.32 L (3.80-5.20) Mil/uL Hgb 9.1 L (12.0-16.0) g/dL Hct 29.6 L (34.0-47.0) % MCV 89.2 (81.0-99.0) fl MCH 27.4 (27.0-31.0) pg MCHC 30.8 L (33.0-37.0) g/dL RDW 19.1 H (11.5-14.5) % Plt Count 142 (130-400) K/uL MPV 11.0 (7.2-11.7) fl Neut % (Auto) 89.4 H (50.0-75.0) % Lymph % (Auto) 9.1 L (20.0-40.0) % Worth % (Auto) 1.0 (0.0-10.0) % Eos % (Auto) 0.0 (0.0-4.0) % Baso % (Auto) 0.5 (0.0-2.0) % Neut # (Auto) 12.3 H (1.8-7.0) K/uL Lymph # (Auto) 1.3 (1.0-4.3) K/uL Worth # (Auto) 0.1 (0.0-0.8) K/uL Eos # (Auto) 0.0 (0.0-0.7) K/uL Baso # (Auto) 0.1 (0.0-0.2) K/uL pCO2 (35-45) mm/Hg pO2 (80-100) mm/Hg HCO3 (21-28) mmol/L ABG pH (7.35-7.45) ABG Total CO2 (22-28) mmol/L ABG O2 Saturation (95-98) % ABG O2 Content (15-23) ML/dL ABG Base Excess (-2.0-3.0) mmol/L ABG Hemoglobin (11.7-17.4) g/dL ABG Carboxyhemoglobin (0.5-1.5) % POC ABG HHb (Measured) (0.0-5.0) % ABG Methemoglobin (0.0-3.0) % ABG O2 Capacity (16-24) mL/dL [place] Test A-a O2 Difference mm/Hg Hgb O2 Saturation (95.0-98.0) % Vent Mode Mechanical Rate FiO2 % Tidal Volume Sodium (132-148) mmol/l Potassium (3.6-5.0) MMOL/L Chloride (98-107) mmol/L Carbon Dioxide (22-30) mmol/L Anion Gap (10-20) BUN (7-17) mg/dl Creatinine (0.7-1.2) mg/dl Est GFR ( Amer) Est GFR (Non-Af Amer) POC Glucose (mg/dL) 129 H 89 (65-110) mg/dL Random Glucose (65-105) mg/dL Calcium (8.4-10.2) mg/dL Phosphorus (2.5-4.5) mg/dl Magnesium (1.6-2.3) MG/DL Influenza Typ A,B (EIA) (NEGATIVE) 03/03/18 03/03/18 Range/Units 15:01 14:47 WBC (4.8-10.8) K/uL RBC (3.80-5.20) Mil/uL Hgb (12.0-16.0) g/dL Hct (34.0-47.0) % MCV (81.0-99.0) fl MCH (27.0-31.0) pg MCHC (33.0-37.0) g/dL RDW (11.5-14.5) % Plt Count (130-400) K/uL MPV (7.2-11.7) fl Neut % (Auto) (50.0-75.0) % Lymph % (Auto) (20.0-40.0) % Worth % (Auto) (0.0-10.0) % Eos % (Auto) (0.0-4.0) % Baso % (Auto) (0.0-2.0) % Neut # (Auto) (1.8-7.0) K/uL Lymph # (Auto) (1.0-4.3) K/uL [place] # (Auto) (0.0-0.8) K/uL Eos # (Auto) (0.0-0.7) K/uL Baso # (Auto) (0.0-0.2) K/uL pCO2 (35-45) mm/Hg pO2 (80-100) mm/Hg HCO3 (21-28) mmol/L ABG pH (7.35-7.45) ABG Total CO2 (22-28) mmol/L ABG O2 Saturation (95-98) % ABG O2 Content (15-23) ML/dL ABG Base Excess (-2.0-3.0) mmol/L ABG Hemoglobin (11.7-17.4) g/dL ABG Carboxyhemoglobin (0.5-1.5) % POC ABG HHb (Measured) (0.0-5.0) % ABG Methemoglobin (0.0-3.0) % ABG O2 Capacity (16-24) mL/dL [place] Test A-a O2 Difference mm/Hg Hgb O2 Saturation (95.0-98.0) % Vent Mode Mechanical Rate FiO2 % Tidal Volume Sodium 136 (132-148) mmol/l Potassium 3.7 (3.6-5.0) MMOL/L Chloride 111 H (98-107) mmol/L Carbon Dioxide 18 L (22-30) mmol/L Anion Gap 11 (10-20) BUN 32 H (7-17) mg/dl Creatinine 2.2 H (0.7-1.2) mg/dl Est GFR ( Amer) 26 Est GFR (Non-Af Amer) 22 POC Glucose (mg/dL) 125 H (65-110) mg/dL Random Glucose 108 H (65-105) mg/dL Calcium 7.6 L (8.4-10.2) mg/dL Phosphorus (2.5-4.5) mg/dl Magnesium (1.6-2.3) MG/DL Influenza Typ A,B (EIA) (NEGATIVE) Laboratory Results - last 24 hr 03/03/18 03/03/18 03/03/18 14:47 15:01 16:41 WBC RBC Hgb Hct MCV MCH MCHC RDW Plt Count MPV Neut % (Auto) Lymph % (Auto) Worth % (Auto) Eos % (Auto) Baso % (Auto) Neut # (Auto) Lymph # (Auto) Worth # (Auto) Eos # (Auto) Baso # (Auto) pCO2 pO2 HCO3 ABG pH ABG Total CO2 ABG O2 Saturation ABG O2 Content ABG Base Excess ABG Hemoglobin ABG Carboxyhemoglobin POC ABG HHb (Measured) ABG Methemoglobin ABG O2 Capacity [place] Test A-a O2 Difference Hgb O2 Saturation Vent Mode Mechanical Rate FiO2 Tidal Volume Sodium 136 Potassium 3.7 Chloride 111 H Carbon Dioxide 18 L Anion Gap 11 BUN 32 H Creatinine 2.2 H Est GFR ( Amer) 26 Est GFR (Non-Af Amer) 22 POC Glucose (mg/dL) 125 H 89 Random Glucose 108 H Calcium 7.6 L Phosphorus Magnesium Influenza Typ A,B (EIA) 03/03/18 03/04/18 03/04/18 21:06 04:29 04:29 WBC 13.8 H RBC 3.32 L Hgb 9.1 L Hct 29.6 L MCV 89.2 MCH 27.4 MCHC 30.8 L RDW 19.1 H Plt Count 142 MPV 11.0 Neut % (Auto) 89.4 H Lymph % (Auto) 9.1 L [place] % (Auto) 1.0 Eos % (Auto) 0.0 Baso % (Auto) 0.5 Neut # (Auto) 12.3 H Lymph # (Auto) 1.3 Worth # (Auto) 0.1 Eos # (Auto) 0.0 Baso # (Auto) 0.1 pCO2 pO2 HCO3 ABG pH ABG Total CO2 ABG O2 Saturation ABG O2 Content ABG Base Excess ABG Hemoglobin ABG Carboxyhemoglobin POC ABG HHb (Measured) ABG Methemoglobin ABG O2 Capacity [place] Test A-a O2 Difference Hgb O2 Saturation Vent Mode Mechanical Rate FiO2 Tidal Volume Sodium 132 Potassium 3.4 L Chloride 110 H Carbon Dioxide 17 L Anion Gap 8 L BUN 31 H Creatinine 2.2 H Est GFR ( Amer) 26 Est GFR (Non-Af Amer) 22 POC Glucose (mg/dL) 129 H Random Glucose 154 H Calcium 7.1 L Phosphorus 4.0 Magnesium 1.0 L* Influenza Typ A,B (EIA) 03/04/18 03/04/18 04:29 05:32 WBC RBC Hgb Hct MCV MCH MCHC RDW Plt Count MPV Neut % (Auto) Lymph % (Auto) [place] % (Auto) Eos % (Auto) Baso % (Auto) Neut # (Auto) Lymph # (Auto) [place] # (Auto) Eos # (Auto) Baso # (Auto) pCO2 35 pO2 157 H HCO3 17.2 L ABG pH 7.27 L ABG Total CO2 17.2 L ABG O2 Saturation 100.2 H ABG O2 Content 13.7 L ABG Base Excess -9.9 L ABG Hemoglobin 9.8 L ABG Carboxyhemoglobin 1.8 H POC ABG HHb (Measured) -0.2 L ABG Methemoglobin 1.3 ABG O2 Capacity 13.7 L [place] Test Yes A-a O2 Difference 191.0 Hgb O2 Saturation 97.1 Vent Mode A/c Mechanical Rate 12 FiO2 55.0 Tidal Volume 450 Sodium Potassium Chloride Carbon Dioxide Anion Gap BUN Creatinine Est GFR ( Amer) Est GFR (Non-Af Amer) POC Glucose (mg/dL) Random Glucose Calcium Phosphorus Magnesium Influenza Typ A,B (EIA) Negative for flu a/b Fingerstick Blood Sugar Results: 129 Critical Care Progress Note - Nutrition Nutrition: Nutrition Category Date Time Status NPO Diet [DIET] Diets 03/03/18 Breakfast Active Assessment/Plan - Assessment and Plan (Free Text) Assessment: Respiratory Failure - due to PNA, bradycardia and was unable to breath , Orotracheal intubation on MV, Septic shock -Levophed drip, titrate as needed, off at the moment, will restart, will lower IVF,as pt is slightly volume overloaded. Left Pneumonia with RIGHT pleural effusion - Afebrile, WBC 13.8 - X-Ray: some pulm congestion this AM , was not there yesterday, will lower IVF and will start tube feeding . - F/U ID, Dr. Suggs recommendation -F/U Pulm Dr. Vazquez recommendation -Continue Meropenem, 1gm Q8H, day#1 -Continue clindaycin -Linozeled started B-cell lymphoma / MDS (myelodysplastic syndrome) - On chemo - F/u Hematology/oncology consult Dr De Dios Chronic A-fib - Off Metoprolol, Digoxin, hydrazaline, and Cozaar due to low BP and bradycardia - no anticoagulation due to thrombocytopenia (Stable) COPD chronic - continue Atrovent and Xopenex - Tessala Perles - Incentive Shoaib - F/U Dr Vazquez recommendation NICOLE and CKD stage IV - Low urine output due to low BP and sepsis, well hydrated now will monitor DVT PPX - SCD for now, Hx of thrombocytopenia
[2018-03-04] MEDS: Meropenem 500 MG in Sodium Chloride 0.9% 100 ML IVPB SCH (08:06)
--- NOTE | 2018-03-04 08:24 | RAD ---
Date of service: 03/04/2018 HISTORY: pneumonia COMPARISON: Portable chest 03/03/2018. FINDINGS: LUNGS: Right MediPort, endotracheal and nasogastric tubes do not appear significantly changed in position. Bilateral hemidiaphragms are at least partially silhouetted indicating likely bilateral basilar atelectasis with persistent medial right middle lobe and lingular airspace disease evident. Limited left perihilar patchy density remains as well. PLEURA: Small left pleural effusion unchanged. Limited interval right pleural effusion is not excluded. No pneumothorax bilaterally. CARDIOVASCULAR: No aortic atherosclerotic calcification present. Cardiac silhouette appears stable. Borderline pulmonary vascular congestion. OSSEOUS STRUCTURES: Sternotomy wires noted. VISUALIZED UPPER ABDOMEN: Normal. OTHER FINDINGS: None. IMPRESSION: Normal change in lingular and middle lobe airspace disease with bibasilar atelectasis likely developing. Limited left pleural effusion stable. Small right pleural effusion not excluded. Borderline pulmonary vascular congestion.
[2018-03-04] MEDS: Lactobacillus Acidophilus 500 MU Cap PO SCH ×2 (08:51→17:08)
[2018-03-04] MEDS: Petrolatum UD PAK TOP SCH ×2 (08:55→17:10)
[2018-03-04] MEDS: Thiamine 100 mg/ml Inj IM SCH (08:56)
[2018-03-04] MEDS: Ascorbic Acid 500 mg/5 ml Liq(50 ml) PO SCH ×2 (08:57→17:11)
[2018-03-04] MEDS: Cholecalciferol 1,000 INTLU TAB PO SCH (08:58)
[2018-03-04] MEDS: Linezolid 600 mg in D5W 300 ml 600 MG/300 ML BAG IVPB SCH (09:00)
--- NOTE | 2018-03-04 09:27 | CP.PCM.PN ---
<Ran Dennison - Last Filed: 03/04/18 11:24> Subjective - Date & Time of Evaluation Date of Evaluation: 03/04/18 Time of Evaluation: 10:44 - Subjective Subjective: Patient seen and examined at bedside this morning. Patient was agitated overnight and tried to self extubate. Patient given ativan. Remains on vent, settings rate 16/tidal volume 450/FiO2 55/peep 5. Levophed was DC'ed due to BP stabilizing; however, BP starting to decrease again and thus considering to restart Levophed again. Patient to start tube feeding. Objective - Vital Signs/Intake and Output Vital Signs (last 24 hours): Temp Pulse Resp BP Pulse Ox 98.9 F 93 H 14 119/54 L 100 03/04/18 04:00 03/04/18 07:00 03/04/18 07:00 03/04/18 07:00 03/04/18 07:00 Intake and Output: 03/04/18 03/04/18 06:59 18:59 Intake Total 2150 Output Total 35 Balance 2115 - Medications Medications: Current Medications Acetaminophen (Tylenol 325mg Tab) 650 mg PO Q6 PRN PRN Reason: Fever >100.4 F Acetaminophen (Tylenol 325mg/10.15ml Ud) 975 mg PO Q8 PRN PRN Reason: Pain, moderate (4-7) Ascorbic Acid (Vitamin C Liq) 500 mg PO BID [facility] Last Admin: 03/04/18 08:57 Dose: 500 mg Atorvastatin Calcium (Lipitor) 10 mg PO HS [facility] Last Admin: 03/03/18 21:27 Dose: 10 mg Benzonatate (Tessalon Perles) 200 mg PO TID PRN PRN Reason: Cough Cholecalciferol (Vitamin D) 1,000 intlu PO DAILY [facility] Last Admin: 03/04/18 08:58 Dose: 1,000 intlu Digoxin (Digoxin) 0.125 mg PO DAILY [facility] Last Admin: 03/02/18 10:51 Dose: Not Given Dimethicone (Proshield Plus Skin Protectant) 1 applic TOP Q8 PRN PRN Reason: Rash Last Admin: 03/03/18 09:53 Dose: 1 applic Emollient Ointment (Vaseline Oint) 1 pkt TOP BID [facility] Last Admin: 03/04/18 08:55 Dose: 1 pkt Epoetin Rolo (Procrit) 40,000 unit SC WED [facility] Hydralazine HCl (Apresoline) 10 mg PO TID [facility] Last Admin: 03/03/18 09:47 Dose: Not Given Hydrocortisone Sodium Succinate (Solu-Cortef) 50 mg IV Q8H [facility] Last Admin: 03/04/18 01:45 Dose: 50 mg Meropenem 500 mg/ Sodium (Chloride) 100 mls @ 100 mls/hr IVPB Q12 [facility]; Protocol Last Admin: 03/04/18 08:06 Dose: 100 mls/hr Norepinephrine Bitartrate 4 mg (/ Dextrose) 254 mls @ 9.53 mls/hr IV .Q24H [facility]; Protocol Last Admin: 03/04/18 01:46 Dose: 2.5 mcg/min, 9.53 mls/hr Linezolid (Zyvox 600mg/300ml D5w) 600 mg in 300 mls @ 300 mls/hr IVPB Q12 [facility]; Protocol Last Admin: 03/04/18 09:00 Dose: 300 mls/hr Ceftaroline Fosamil 300 mg/ (Sodium Chloride) 100 mls @ 100 mls/hr IVPB Q12 [facility]; Protocol Last Admin: 03/03/18 20:24 Dose: 100 mls/hr Magnesium Sulfate (Magnesium Sulfate 2 Gm/50 Ml Water) 2 gm in 50 mls @ 50 mls/hr IVPB ONCE ONE Stop: 03/04/18 09:59 Last Admin: 03/04/18 09:16 Dose: 50 mls/hr Ipratropium [place] (Atrovent) 0.5 mg IH RQID [facility] Last Admin: 03/04/18 07:23 Dose: 0.5 mg Lactobacillus Acidophilus (Bacid Acidophilus) 1 cap PO BID [facility] Last Admin: 03/04/18 08:51 Dose: 1 cap Levalbuterol HCl (Xopenex) 0.63 mg INH RQID [facility] Last Admin: 03/04/18 07:23 Dose: 0.63 mg Levothyroxine Sodium (Synthroid) 40 mcg IVP DAILY@0630 [facility] Last Admin: 03/04/18 05:30 Dose: 40 mcg Lorazepam (Ativan) 2 mg IVP Q3 PRN PRN Reason: Agitation Last Admin: 03/04/18 06:42 Dose: 2 mg Losartan Potassium (Cozaar) 50 mg PO DAILY [facility] Mirtazapine (Remeron) 7.5 mg PO HS [facility] Last Admin: 03/03/18 21:27 Dose: 7.5 mg Nystatin (Nystop Topical Powder) 1 applic TOP TID [facility] Last Admin: 03/04/18 08:08 Dose: 1 appl Pantoprazole Sodium (Protonix Inj) 40 mg IVP DAILY [facility] Last Admin: 03/04/18 08:09 Dose: 40 mg Thiamine HCl (Vitamin B1 Inj) 100 mg IM DAILY [facility] Last Admin: 03/04/18 08:56 Dose: 100 mg - Labs Labs: 03/04/18 04:29 03/04/18 04:29 - Constitutional Appears: No Acute Distress - Head Exam Head Exam: NORMAL INSPECTION - Eye Exam Eye Exam: Normal appearance - ENT Exam ENT Exam: Mucous Membranes Moist - Respiratory Exam Respiratory Exam: Decreased Breath Sounds, Rales, Rhonchi. absent: Wheezes, Respiratory Distress - Cardiovascular Exam Cardiovascular Exam: REGULAR RHYTHM. absent: Tachycardia - GI/Abdominal Exam GI & Abdominal Exam: Soft, Normal Bowel Sounds. absent: Distended, Tenderness - Extremities Exam Extremities Exam: Normal Capillary Refill. absent: Pedal Edema - Neurological Exam Neurological Exam: Altered. absent: Oriented x3 - Skin Skin Exam: Normal Color Assessment and Plan - Assessment and Plan (Free Text) Assessment: 77 y/o woman w/ pmh of HTN, CAD s/p CABG, atrial fibrillation (not on anticoagulation due to thrombocytopenia), B cell lymphoma, MDS s/p chemo with pancytopenia , SIADH was admitted to [facility] for evaluation and treatment of bilateral pneumonia and possible c.diff. Pt went into respiratory failure and was placed on mechanical ventilation on 03/02. Levophed DC'ed but considering to restart again due to decreasing BP. Plan: Respiratory Failure - Orotracheal intubation on MV - settings: PRVC AC mode; rate 16/tidal volume 450/FiO2 55/peep 5 Hypotension - Levophed DC'ed yesterday due to stabilizing BP - starting to decrease again - consider restarting levophed Hypomagnesia - Mg 1.0 - given Magnesium Sulfate 2 gm IV x2 - f/u repeat BMP Left Pneumonia with RIGHT pleural effusion - Afebrile, WBC 13.8 - X-Ray: normal change in lingular and middle lobe airspace disease w/ bibasilar atelectasis likely developing. Limited left pleural effusion stable. Small right pleural effusion not excluded. Borderline pulmonary vascular congestion - ID, Dr. Suggs, recommendations appreciated - Pulm Dr. Vazquez, recommendations appreciated - DC'ed 1 L 9% NaCl at rate 125ml/h - DC'ed Linozeled started - C/w Meropenem, 1 gm IV Q8H day #3 - C/w ceftaroline 300 mg IV Q12H day #2 Sacral Ulcer - Wound care on case - Re-Positioning every 2 hour B-cell lymphoma / MDS (myelodysplastic syndrome) - On chemo - F/u Hematology/oncology consult Dr De Dios History of pancytopenia sec to Chemotherapy - WBC 11.3->13.8, Active infection vs medication - Continue with Procrit Chronic A-fib - Continue Metoprolol 50mg Q12, Digoxin, hydrazaline, Cozaar - no anticoagulation due to thrombocytopenia (Stable) COPD chronic - c/w solumedrol 50 mg IV Q8H - c/w Atrovent and Xopenex - Tessala Perles - Incentive Shoaib - F/U Dr Vazquez recommendation Hyponatremia, sec to SIADH - stable - Na 132 Hypothyroid - Chronic, controlled - C/W Levothyroxine 75mcg daily CKD stage III - stable Hypertension / CAD - Resumed home meds - controlled Hearing loss - possible medication induced or age related - out pt follow up C.diff -Continue with Diarrhea but improved, no diarrhea. -C. Diff negative DVT PPX - SCD for now, Hx of thrombocytopenia <Malu Berrios - Last Filed: 03/04/18 15:43> Objective - Vital Signs/Intake and Output Vital Signs (last 24 hours): Temp Pulse Resp BP Pulse Ox 97.6 F 82 16 116/57 L 100 03/04/18 14:00 03/04/18 14:00 03/04/18 14:00 03/04/18 14:00 03/04/18 14:00 Intake and Output: 03/04/18 03/04/18 06:59 18:59 Intake Total 2150 765 Output Total 35 25 Balance 2115 740 - Medications Medications: Current Medications Acetaminophen (Tylenol 325mg Tab) 650 mg PO Q6 PRN PRN Reason: Fever >100.4 F Acetaminophen (Tylenol 325mg/10.15ml Ud) 975 mg PO Q8 PRN PRN Reason: Pain, moderate (4-7) Ascorbic Acid (Vitamin C Liq) 500 mg PO BID [facility] Last Admin: 03/04/18 08:57 Dose: 500 mg Atorvastatin Calcium (Lipitor) 10 mg PO HS [facility] Last Admin: 03/03/18 21:27 Dose: 10 mg Benzonatate (Tessalon Perles) 200 mg PO TID PRN PRN Reason: Cough Cholecalciferol (Vitamin D) 1,000 intlu PO DAILY [facility] Last Admin: 03/04/18 08:58 Dose: 1,000 intlu Digoxin (Digoxin) 0.125 mg PO DAILY [facility] Last Admin: 03/02/18 10:51 Dose: Not Given Dimethicone (Proshield Plus Skin Protectant) 1 applic TOP Q8 PRN PRN Reason: Rash Last Admin: 03/03/18 09:53 Dose: 1 applic Emollient Ointment (Vaseline Oint) 1 pkt TOP BID [facility] Last Admin: 03/04/18 08:55 Dose: 1 pkt Epoetin Rolo (Procrit) 40,000 unit SC WED [facility] Hydrocortisone Sodium Succinate (Solu-Cortef) 50 mg IV Q8H [facility] Last Admin: 03/04/18 11:15 Dose: 50 mg Ceftaroline Fosamil 300 mg/ (Sodium Chloride) 100 mls @ 100 mls/hr IVPB Q12 [facility]; Protocol Last Admin: 03/04/18 10:30 Dose: 100 mls/hr Gentamicin Sulfate/Sodium Chloride (Gentamicin 60mg/50ml Ns) 60 mg in 50 mls @ 49.261 mls/hr IVPB Q24H [facility]; Protocol Ipratropium [place] (Atrovent) 0.5 mg IH RQID [facility] Last Admin: 03/04/18 15:32 Dose: 0.5 mg Lactobacillus Acidophilus (Bacid Acidophilus) 1 cap PO BID [facility] Last Admin: 03/04/18 08:51 Dose: 1 cap Levalbuterol HCl (Xopenex) 0.63 mg INH RQID [facility] Last Admin: 03/04/18 15:32 Dose: 0.63 mg Levothyroxine Sodium (Synthroid) 40 mcg IVP DAILY@0630 [facility] Last Admin: 03/04/18 05:30 Dose: 40 mcg Lorazepam (Ativan) 2 mg IVP Q3 PRN PRN Reason: Agitation Last Admin: 03/04/18 06:42 Dose: 2 mg Mirtazapine (Remeron) 7.5 mg PO HS [facility] Last Admin: 03/03/18 21:27 Dose: 7.5 mg Nystatin (Nystop Topical Powder) 1 applic TOP TID [facility] Last Admin: 03/04/18 13:11 Dose: 1 appl Pantoprazole Sodium (Protonix Inj) 40 mg IVP DAILY [facility] Last Admin: 03/04/18 08:09 Dose: 40 mg Thiamine HCl (Vitamin B1 Inj) 100 mg IM DAILY [facility] Last Admin: 03/04/18 08:56 Dose: 100 mg - Labs Labs: 03/04/18 04:29 03/04/18 12:40 Attending/Attestation - Attestation I have personally seen and examined this patient.: Yes I have fully participated in the care of the patient.: Yes I have reviewed all pertinent clinical information, including history, physical exam and plan: Yes Notes (Text): Sepsis ( POA) sec to Pneumonia Acute Respiratory Failure with Hypoxia sec to Pneumonia - Pt intubated on Mech Vent , now off pressors - cont IV Genta and Teflaro Full Code Surrogate Decision maker - daughter Leanna
[2018-03-04 13:02] LABS: CALCIUM 7.5 mg/dL (8.4-10.2)
--- NOTE | 2018-03-04 15:24 | CP.PCM.PN ---
Subjective - Date & Time of Evaluation Date of Evaluation: 03/04/18 Time of Evaluation: 15:00 - Subjective Subjective: I D NOTE PATIENT ON PRESSORS AGAIN ,HAD BEEN OFF FOR FEW HOURS MINIMALLY RESPONSIVE CULTURES FROM DECUBITI: KLEBSIELLA THAT IS MDR/ESBL(+) & VRE HAVE DISCONTINUED MEROPENEM AND STARTED GENTAMICIN PRESENT RX:TEFLARO/ZYVOX/GENTAMICIN Objective - Vital Signs/Intake and Output Vital Signs (last 24 hours): Temp Pulse Resp BP Pulse Ox 97.0 F L 79 16 135/61 100 03/04/18 08:00 03/04/18 13:00 03/04/18 13:00 03/04/18 13:00 03/04/18 13:00 Intake and Output: 03/04/18 03/04/18 06:59 18:59 Intake Total 2150 630 Output Total 35 10 Balance 2115 620 - Medications Medications: Current Medications Acetaminophen (Tylenol 325mg Tab) 650 mg PO Q6 PRN PRN Reason: Fever >100.4 F Acetaminophen (Tylenol 325mg/10.15ml Ud) 975 mg PO Q8 PRN PRN Reason: Pain, moderate (4-7) Ascorbic Acid (Vitamin C Liq) 500 mg PO BID [facility] Last Admin: 03/04/18 08:57 Dose: 500 mg Atorvastatin Calcium (Lipitor) 10 mg PO HS [facility] Last Admin: 03/03/18 21:27 Dose: 10 mg Benzonatate (Tessalon Perles) 200 mg PO TID PRN PRN Reason: Cough Cholecalciferol (Vitamin D) 1,000 intlu PO DAILY [facility] Last Admin: 03/04/18 08:58 Dose: 1,000 intlu Digoxin (Digoxin) 0.125 mg PO DAILY [facility] Last Admin: 03/02/18 10:51 Dose: Not Given Dimethicone (Proshield Plus Skin Protectant) 1 applic TOP Q8 PRN PRN Reason: Rash Last Admin: 03/03/18 09:53 Dose: 1 applic Emollient Ointment (Vaseline Oint) 1 pkt TOP BID [facility] Last Admin: 03/04/18 08:55 Dose: 1 pkt Epoetin Rolo (Procrit) 40,000 unit SC WED [facility] Hydrocortisone Sodium Succinate (Solu-Cortef) 50 mg IV Q8H [facility] Last Admin: 03/04/18 11:15 Dose: 50 mg Ceftaroline Fosamil 300 mg/ (Sodium Chloride) 100 mls @ 100 mls/hr IVPB Q12 [facility]; Protocol Last Admin: 03/04/18 10:30 Dose: 100 mls/hr Gentamicin Sulfate 60 mg/ (Sodium Chloride) 101.5 mls @ 100 mls/hr IVPB Q24H [facility]; Protocol Ipratropium [place] (Atrovent) 0.5 mg IH RQID [facility] Last Admin: 03/04/18 10:59 Dose: 0.5 mg Lactobacillus Acidophilus (Bacid Acidophilus) 1 cap PO BID [facility] Last Admin: 03/04/18 08:51 Dose: 1 cap Levalbuterol HCl (Xopenex) 0.63 mg INH RQID [facility] Last Admin: 03/04/18 10:59 Dose: 0.63 mg Levothyroxine Sodium (Synthroid) 40 mcg IVP DAILY@0630 [facility] [place] Last Admin: 03/04/18 05:30 Dose: 40 mcg Lorazepam (Ativan) 2 mg IVP Q3 PRN PRN Reason: Agitation Last Admin: 03/04/18 06:42 Dose: 2 mg Mirtazapine (Remeron) 7.5 mg PO HS [facility] [place] Last Admin: 03/03/18 21:27 Dose: 7.5 mg Nystatin (Nystop Topical Powder) 1 applic TOP TID [facility] [place] Last Admin: 03/04/18 13:11 Dose: 1 appl Pantoprazole Sodium (Protonix Inj) 40 mg IVP DAILY [facility] [place] Last Admin: 03/04/18 08:09 Dose: 40 mg Thiamine HCl (Vitamin B1 Inj) 100 mg IM DAILY [facility] [place] Last Admin: 03/04/18 08:56 Dose: 100 mg - Labs Labs: 03/04/18 04:29 03/04/18 12:40
[2018-03-04] MEDS: Gentamicin 60mg/50ml NS 60 MG/50 ML BAG IVPB SCH (16:00)
[2018-03-05] MEDS: Sodium Chloride 0.9% 1,000 ML IV SCH ×3 (02:31→22:45)
[2018-03-05 05:34] LABS: ABG ALLEN TEST YES; ARTERIAL BLOOD GAS HCO3 16.8 mmol/L (21-28); ARTERIAL BLOOD GAS HEMOGLOBIN 10.6 g/dL (11.7-17.4); ARTERIAL BLOOD GAS O2 CAPACITY 14.7 mL/dL (16-24); ARTERIAL BLOOD GAS O2 CONTENT 14.7 ML/dL (15-23); ARTERIAL BLOOD GAS PCO2 29 mm/Hg (35-45); ARTERIAL BLOOD GAS PH 7.31 (7.35-7.45); ARTERIAL BLOOD GAS PO2 156 mm/Hg (80-100); ARTERIAL BLOOD GAS TCO2 15.5 mmol/L (22-28)
[2018-03-05 06:12] LABS: HEMOGLOBIN 10.6 g/dL (12.0-16.0); MEAN CELL VOLUME 89.8 fl (81.0-99.0); MEAN CORPUSCULAR HEMOGLOBIN 27.4 pg (27.0-31.0); MEAN CORPUSCULAR HGB CONC 30.5 g/dL (33.0-37.0); RBC 3.87 Mil/uL (3.80-5.20); RED CELL DISTRIBUTION WIDTH 19.4 % (11.5-14.5); WHITE BLOOD COUNT 27.1 K/uL (4.8-10.8)
[2018-03-05] MEDS: Levothyroxine 100 mcg (0.1 mg) Inj IVP SCH (06:13)
[2018-03-05 06:28] LABS: CALCIUM 7.8 mg/dL (8.4-10.2)
--- NOTE | 2018-03-05 07:41 | RAD ---
Date of service: 03/05/2018 HISTORY: intubated COMPARISON: Portable chest 03/04/2018. FINDINGS: LUNGS: Endotracheal and nasogastric tubes do not appear significantly changed in position with right MediPort also stable. Post CABG changes again reiterated. Bilateral basilar atelectasis or infiltrate is unchanged. PLEURA: Trace bilateral pleural effusions not excluded. No pneumothorax bilaterally. CARDIOVASCULAR: No aortic atherosclerotic calcification present. Stable cardiac silhouette. Borderline pulmonary vascular congestion remains. OSSEOUS STRUCTURES: No significant abnormalities. VISUALIZED UPPER ABDOMEN: Normal. OTHER FINDINGS: None. IMPRESSION: No signal change in borderline pulmonary congestion, trace bilateral pleural effusions and bilateral basilar airspace disease.
[2018-03-05] MEDS: Ipratropium 0.02% Inhal Soln (0.5 mg/2.5 ml) UD IH SCH ×4 (07:49→19:11)
[2018-03-05] MEDS ORDERED: Potassium Chloride 20 mEq/15 ml LIQ UD PO ONE (08:00)
--- NOTE | 2018-03-05 08:15 | CP.PCM.PN ---
<Syd Ochoa - Last Filed: 03/05/18 14:53> Subjective - Date & Time of Evaluation Date of Evaluation: 03/05/18 Time of Evaluation: 09:00 - Subjective Subjective: Patient seen and examined at bedside this morning. On vent with tube feeding. Eyes open to verbal. Does not follow commands. Pressor running at 5mcg hr. Objective - Vital Signs/Intake and Output Vital Signs (last 24 hours): Temp Pulse Resp BP Pulse Ox 98.7 F 96 H 14 131/58 L 100 03/05/18 04:00 03/05/18 06:24 03/05/18 06:24 03/05/18 06:24 03/05/18 06:24 Intake and Output: 03/05/18 03/05/18 06:59 18:59 Intake Total 1292 90 Output Total 100 30 Balance 1192 60 - Medications Medications: Current Medications Acetaminophen (Tylenol 325mg Tab) 650 mg PO Q6 PRN PRN Reason: Fever >100.4 F Acetaminophen (Tylenol 325mg/10.15ml Ud) 975 mg PO Q8 PRN PRN Reason: Pain, moderate (4-7) Ascorbic Acid (Vitamin C Liq) 500 mg PO BID [facility] Last Admin: 03/04/18 17:11 Dose: 500 mg Atorvastatin Calcium (Lipitor) 10 mg PO HS [facility] Last Admin: 03/04/18 21:54 Dose: 10 mg Benzonatate (Tessalon Perles) 200 mg PO TID PRN PRN Reason: Cough Cholecalciferol (Vitamin D) 1,000 intlu PO DAILY [facility] Last Admin: 03/04/18 08:58 Dose: 1,000 intlu Digoxin (Digoxin) 0.125 mg PO DAILY [facility] Last Admin: 03/02/18 10:51 Dose: Not Given Dimethicone (Proshield Plus Skin Protectant) 1 applic TOP Q8 PRN PRN Reason: Rash Last Admin: 03/03/18 09:53 Dose: 1 applic Emollient Ointment (Vaseline Oint) 1 pkt TOP BID [facility] Last Admin: 03/04/18 17:10 Dose: 1 pkt Epoetin Rolo (Procrit) 40,000 unit SC WED [facility] Hydrocortisone Sodium Succinate (Solu-Cortef) 50 mg IV Q8H [facility] Last Admin: 03/05/18 01:56 Dose: 50 mg Ceftaroline Fosamil 300 mg/ (Sodium Chloride) 100 mls @ 100 mls/hr IVPB Q12 [facility]; Protocol Last Admin: 03/04/18 21:56 Dose: 100 mls/hr Gentamicin Sulfate/Sodium Chloride (Gentamicin 60mg/50ml Ns) 60 mg in 50 mls @ 49.261 mls/hr IVPB Q24H [facility]; Protocol Last Admin: 03/04/18 16:00 Dose: 49.261 mls/hr Norepinephrine Bitartrate 4 mg (/ Dextrose) 254 mls @ 19.05 mls/hr IV .[id number] [facility]; Protocol Last Admin: 03/04/18 23:21 Dose: 5 mcg/min, 19.05 mls/hr Sodium Chloride (Sodium Chloride 0.9%) 1,000 mls @ 50 mls/hr IV .Q20H [facility] Stop: 03/06/18 02:24 Last Admin: 03/05/18 02:31 Dose: 50 mls/hr Ipratropium [place] (Atrovent) 0.5 mg IH RQID [facility] Last Admin: 03/05/18 07:49 Dose: 0.5 mg Lactobacillus Acidophilus (Bacid Acidophilus) 1 cap PO BID [facility] Last Admin: 03/04/18 17:08 Dose: 1 cap Levalbuterol HCl (Xopenex) 0.63 mg INH RQID [facility] Last Admin: 03/04/18 19:18 Dose: 0.63 mg Levothyroxine Sodium (Synthroid) 40 mcg IVP DAILY@0630 [facility] Last Admin: 03/05/18 06:13 Dose: 40 mcg Lorazepam (Ativan) 2 mg IVP Q3 PRN PRN Reason: Agitation Last Admin: 03/04/18 06:42 Dose: 2 mg Mirtazapine (Remeron) 7.5 mg PO HS [facility] Last Admin: 03/04/18 21:54 Dose: 7.5 mg Nystatin (Nystop Topical Powder) 1 applic TOP TID [facility] Last Admin: 03/04/18 17:10 Dose: 1 appl Pantoprazole Sodium (Protonix Inj) 40 mg IVP DAILY [facility] Last Admin: 03/04/18 08:09 Dose: 40 mg Thiamine HCl (Vitamin B1 Inj) 100 mg IM DAILY [facility] Last Admin: 03/04/18 08:56 Dose: 100 mg - Labs Labs: 03/05/18 06:08 03/05/18 06:08 - Constitutional Appears: No Acute Distress - Head Exam Head Exam: NORMAL INSPECTION - Eye Exam Eye Exam: EOMI (No gaze preference). absent: Nystagmus, Scleral icterus Pupil Exam: PERRL - ENT Exam ENT Exam: Mucous Membranes Moist - Neck Exam Neck Exam: absent: Meningismus Additional comments: No JVD - Respiratory Exam Respiratory Exam: Decreased Breath Sounds, Rhonchi. absent: Accessory Muscle U se, Rales, Wheezes - Cardiovascular Exam Cardiovascular Exam: Tachycardia, +S1, +S2 - GI/Abdominal Exam GI & Abdominal Exam: Distended, Soft, Normal Bowel Sounds. absent: Tenderness - Extremities Exam Extremities Exam: Normal Capillary Refill. absent: Tenderness Additional comments: + [place] - Neurological Exam Neurological Exam: Altered (arousable, somnelent). absent: Oriented x3 - Psychiatric Exam Psychiatric exam: absent: Agitated - Skin Skin Exam: Normal Color Assessment and Plan - Assessment and Plan (Free Text) Assessment: 77 y/o woman w/ pmh of HTN, CAD s/p CABG, atrial fibrillation (not on anticoagulation due to thrombocytopenia), B cell lymphoma, MDS s/p chemo with pancytopenia , SIADH was admitted to [facility] for evaluation and treatment of bilateral pneumonia and possible c.diff. Pt went into respiratory failure and was placed on mechanical ventilation on 03/02. Currently on Levophed for BP stabilization. Plan: Respiratory Failure - Orotracheal intubation on MV - Settings: PRVC AC mode; rate 16/tidal volume 450/FiO2 55/peep 5 - Pulmonology, Dr. Vazquez, recommendations appreciated Hypotension -On Lephophed - Stable in 120's systolic - Will attempt to wean pressor today - Bolused 250cc NS today - Likely intravascular depletion from sepsis Sepsis - Afebrile, Tachycardic in 90's, Leukocytosis 27 (increased from 13.5); Lactic Acid 0.8 - X-Ray: normal change in lingular and middle lobe airspace disease w/ bibasilar atelectasis likely developing. Limited left pleural effusion stable. Small right pleural effusion not excluded. Borderline pulmonary vascular congestion. (R.Lobe infilrate on my read) - Wound CX (Sacral Decubitus Ulcer): Growing MDR Klebsiella Pneu (Sensitive to Gentamycin) & Vanco Resistant Enterococcus Faecium (sensitive to Zyvox) - Trach Asp Cx: Yeast species - S/P Meropenem 1gm IV Q8 x 1 day - C/W Ceftaroline 3000mg q12 (Day 3) - C/W Gentamycin 60mg/50cc q24hr (Day 2) - Started Zyvox 600mg in D5W today (Day 1) and Flucanazole 100mg daily (Day 1) - C/w Hydrocortison, Vitamin C, and Thiamine - ID Dr. Pelletier on board Decubitus ulcer - Wound care on case - Re-Positioning every 2 hour Hypomagnesia - Mg 1.9 after 2gm IV of Mg given yesterday - 1gm IV Mg given today - F/U BMP Hyperglycemia - No hx of DM - Likely secondary to IV Steroids. Hydrocortisone changed to q12 B-cell lymphoma / MDS (myelodysplastic syndrome) - On chemo - F/u Hematology/oncology consult Dr De iDos History of pancytopenia sec to Chemotherapy - WBC 11.3->13.8, Active infection vs medication - Continue with Procrit Chronic A-fib - Continue Metoprolol 50mg Q12, Digoxin, hydrazaline, Cozaar - no anticoagulation due to thrombocytopenia (Stable) COPD chronic - c/w solumedrol 50 mg IV Q8H - c/w Atrovent and Xopenex - Tessala Perles - Incentive Shoaib Hyponatremia, sec to SIADH - stable - Na 135 Hypothyroid - Chronic, controlled - C/W Levothyroxine 75mcg daily CKD stage III - stable Hypertension / CAD - Resumed home meds - controlled Hearing loss - possible medication induced or age related - out pt follow up C.diff -Continue with Diarrhea but improved, no diarrhea. -C. Diff negative DVT PPX - SCD for now, Hx of thrombocytopenia <Malu Berrios - Last Filed: 03/05/18 17:25> Objective - Vital Signs/Intake and Output Vital Signs (last 24 hours): Temp Pulse Resp BP Pulse Ox 97.7 F 102 H 11 L 110/52 L 100 03/05/18 16:00 03/05/18 16:00 03/05/18 16:00 03/05/18 16:00 03/05/18 16:00 Intake and Output: 03/05/18 03/05/18 06:59 18:59 Intake Total 1292 1664 Output Total 100 110 Balance 1192 1554 - Medications Medications: Current Medications Acetaminophen (Tylenol 325mg Tab) 650 mg PO Q6 PRN PRN Reason: Fever >100.4 F Acetaminophen (Tylenol 325mg/10.15ml Ud) 975 mg PO Q8 PRN PRN Reason: Pain, moderate (4-7) Ascorbic Acid (Vitamin C 500 Mg Tab) 500 mg PO BID [facility] Last Admin: 03/05/18 16:08 Dose: 500 mg Atorvastatin Calcium (Lipitor) 10 mg PO HS [facility] Last Admin: 03/04/18 21:54 Dose: 10 mg Benzonatate (Tessalon Perles) 200 mg PO TID PRN PRN Reason: Cough Cholecalciferol (Vitamin D) 1,000 intlu PO DAILY [facility] Last Admin: 03/05/18 10:51 Dose: 1,000 intlu Dextrose (Dextrose 50% Inj) 0 ml IV STAT PRN; Protocol PRN Reason: Hypoglycemia Protocol Dextrose (Glutose 15) 0 gm PO ONCE PRN; Protocol PRN Reason: Hypoglycemia Protocol Digoxin (Digoxin) 0.125 mg PO DAILY [facility] Last Admin: 03/02/18 10:51 Dose: Not Given Dimethicone (Proshield Plus Skin Protectant) 1 applic TOP Q8 PRN PRN Reason: Rash Last Admin: 03/03/18 09:53 Dose: 1 applic Emollient Ointment (Vaseline Oint) 1 pkt TOP BID [facility] Last Admin: 03/05/18 16:07 Dose: 1 pkt Epoetin Rolo (Procrit) 40,000 unit SC WED [facility] Glucagon (Glucagen Diagnostic Kit) 0 mg IM STAT PRN; Protocol PRN Reason: Hypoglycemia Protocol Heparin Sodium (Porcine) (Heparin) 5,000 units SC Q8 [facility]; Protocol Last Admin: 03/05/18 16:05 Dose: 5,000 units Hydrocortisone Sodium Succinate (Solu-Cortef) 50 mg IV Q12H [facility] Last Admin: 03/05/18 10:45 Dose: 50 mg Ceftaroline Fosamil 300 mg/ (Sodium Chloride) 100 mls @ 100 mls/hr IVPB Q12 [facility]; Protocol Last Admin: 03/05/18 10:50 Dose: 100 mls/hr Gentamicin Sulfate/Sodium Chloride (Gentamicin 60mg/50ml Ns) 60 mg in 50 mls @ 49.261 mls/hr IVPB Q24H [facility]; Protocol Last Admin: 03/05/18 15:56 Dose: 49.261 mls/hr Norepinephrine Bitartrate 4 mg (/ Dextrose) 254 mls @ 19.05 mls/hr IV .[id number] [facility]; Protocol Last Titration: 03/05/18 15:57 Dose: Infused Sodium Chloride (Sodium Chloride 0.9%) 1,000 mls @ 50 mls/hr IV .Q20H [facility] Stop: 03/06/18 02:24 Last Admin: 03/05/18 02:31 Dose: 50 mls/hr Linezolid (Zyvox 600mg/300ml D5w) 600 mg in 300 mls @ 300 mls/hr IVPB Q12 [facility]; Protocol Fluconazole (Diflucan Iv 100 Mg/50 Ml Ns) 50 mls @ 50 mls/hr IVPB DAILY [facility]; Protocol Last Admin: 03/05/18 15:56 Dose: 50 mls/hr Insulin Human Regular (Humulin R) 0 units SC ACCU-CHECK [facility]; Protocol Last Admin: 03/05/18 16:01 Dose: 6 unit Ipratropium [place] (Atrovent) 0.5 mg IH RQID [facility] Last Admin: 03/05/18 15:14 Dose: 0.5 mg Lactobacillus Acidophilus (Bacid Acidophilus) 1 cap PO BID [facility] Last Admin: 03/05/18 16:05 Dose: 1 cap Levalbuterol HCl (Xopenex) 0.63 mg INH RQID [facility] Last Admin: 03/05/18 15:14 Dose: 0.63 mg Levothyroxine Sodium (Synthroid) 40 mcg IVP DAILY@0630 [facility] Last Admin: 03/05/18 06:13 Dose: 40 mcg Lorazepam (Ativan) 2 mg IVP Q3 PRN PRN Reason: Agitation Last Admin: 03/04/18 06:42 Dose: 2 mg Mirtazapine (Remeron) 7.5 mg PO HS [facility] Last Admin: 03/04/18 21:54 Dose: 7.5 mg Nystatin (Nystop Topical Powder) 1 applic TOP TID [facility] Last Admin: 03/05/18 16:06 Dose: 1 appl Pantoprazole Sodium (Protonix Inj) 40 mg IVP DAILY [facility] Last Admin: 03/05/18 10:45 Dose: 40 mg Thiamine HCl (Vitamin B1 Inj) 100 mg IM DAILY [facility] Last Admin: 03/05/18 10:51 Dose: 100 mg - Labs Labs: 03/05/18 06:08 03/05/18 06:08 Attending/Attestation - Attestation I have personally seen and examined this patient.: Yes I have fully participated in the care of the patient.: Yes I have reviewed all pertinent clinical information, including history, physical exam and plan: Yes Notes (Text): Sepsis and Resp Failure due to Pneumonia ( ESBL Klebsiella/ VRE/Yeast) - pt is hypotensive on Levophed , remains intubated on Vent - discussed with Dr Trey Nunes , pt has no CHF , ok to hydrate , will bolus pt with NS and gradually wean off pressors - Trach Aspirate c/s : yeast - Diflucan added -cont Teflaro, Zyvox, Genta ( for VRE and Kleb ESBL), discussed case with Dr Suggs - Correction of resident's note - pt is NOT on metoprolol, Hydralazine nor Cozaar) DM type II previous diet controlled Glucose elevated likely due to Hydrocortisone accucheck start low dose Levemir Tube feed changed tp Suplena 03/05/18 17:25
--- NOTE | 2018-03-05 09:06 | CP.PCM.PN ---
Subjective - Date & Time of Evaluation Date of Evaluation: 03/05/18 Time of Evaluation: 09:02 - Subjective Subjective: Seen on morning rounds in ICU. Orally intubated and mechanically ventilated. Remains on pressors. Had briefly been off, but BP dropped again despite fluid bolus. Discussed with infectious disease-MDR organisms recovered from sacral decubitus. Results of sputum cultures are still pending. Antibiotic regimen has been re-arranged accordingly. Chest x-ray suggesting bilateral basal atelectasis and probable effusions with vascular congestion. Renal function remains fairly stable, oliguric. Have tried adding vitamin c, thiamine and hydrocortisone as well w/o improvement. Suctioned small volume of small secretions this morning. No dullness on percussion of the anterior chest wall. No subcut emphysema. Moves all 4 extremities, all extremities are warm to touch, pink color. There is no visible cyanosis, + dependant edema of dependant trunk and thighs. Opens eyes and moves head and extremities but does not follow commands. Neck is supple and trachea midline. Breath sounds are present equally in both lungs. No audible wheezing, only scattered rhonchi in dependant zones. Minimal bronchial character of breath sounds in the left lower lobe. No bronchial breath sounds in the right lower lobe. Heart sounds are distant. Abdomen is soft, bowel sounds are hypo. Remains in septic shock despite all measures. Sources likely are lungs and decubitus ulcer. Increased WBC are IN PART steroid related. Not a candidate for vent weaning at this time. O2 supplement has been reduced to 50%. Continue IVF's and pressors as needed. Renal function thus far has been stable, but output has been low over weekend. Objective - Vital Signs/Intake and Output Vital Signs (last 24 hours): Temp Pulse Resp BP Pulse Ox 97.9 F 96 H 16 138/66 100 03/05/18 08:00 03/05/18 08:00 03/05/18 08:00 03/05/18 08:00 03/05/18 08:00 Intake and Output: 03/04/18 03/05/18 23:59 11:59 Intake Total 871 1046 Output Total 70 130 Balance 801 916 - Medications Medications: Current Medications Acetaminophen (Tylenol 325mg Tab) 650 mg PO Q6 PRN PRN Reason: Fever >100.4 F Acetaminophen (Tylenol 325mg/10.15ml Ud) 975 mg PO Q8 PRN PRN Reason: Pain, moderate (4-7) Ascorbic Acid (Vitamin C 500 Mg Tab) 500 mg PO BID [facility] Atorvastatin Calcium (Lipitor) 10 mg PO HS [facility] Last Admin: 03/04/18 21:54 Dose: 10 mg Benzonatate (Tessalon Perles) 200 mg PO TID PRN PRN Reason: Cough Cholecalciferol (Vitamin D) 1,000 intlu PO DAILY [facility] Last Admin: 03/04/18 08:58 Dose: 1,000 intlu Digoxin (Digoxin) 0.125 mg PO DAILY [facility] Last Admin: 03/02/18 10:51 Dose: Not Given Dimethicone (Proshield Plus Skin Protectant) 1 applic TOP Q8 PRN PRN Reason: Rash Last Admin: 03/03/18 09:53 Dose: 1 applic Emollient Ointment (Vaseline Oint) 1 pkt TOP BID [facility] Last Admin: 03/04/18 17:10 Dose: 1 pkt Epoetin Rolo (Procrit) 40,000 unit SC WED [facility] Hydrocortisone Sodium Succinate (Solu-Cortef) 50 mg IV Q8H [facility] Last Admin: 03/05/18 01:56 Dose: 50 mg Ceftaroline Fosamil 300 mg/ (Sodium Chloride) 100 mls @ 100 mls/hr IVPB Q12 [facility]; Protocol Last Admin: 03/04/18 21:56 Dose: 100 mls/hr Gentamicin Sulfate/Sodium Chloride (Gentamicin 60mg/50ml Ns) 60 mg in 50 mls @ 49.261 mls/hr IVPB Q24H [facility]; Protocol Last Admin: 03/04/18 16:00 Dose: 49.261 mls/hr Norepinephrine Bitartrate 4 mg (/ Dextrose) 254 mls @ 19.05 mls/hr IV .[id number] [facility]; Protocol Last Admin: 03/04/18 23:21 Dose: 5 mcg/min, 19.05 mls/hr Sodium Chloride (Sodium Chloride 0.9%) 1,000 mls @ 50 mls/hr IV .Q20H [facility] Stop: 03/06/18 02:24 Last Admin: 03/05/18 02:31 Dose: 50 mls/hr Ipratropium [place] (Atrovent) 0.5 mg IH RQID [facility] Last Admin: 03/05/18 07:49 Dose: 0.5 mg Lactobacillus Acidophilus (Bacid Acidophilus) 1 cap PO BID [facility] Last Admin: 03/04/18 17:08 Dose: 1 cap Levalbuterol HCl (Xopenex) 0.63 mg INH RQID [facility] Last Admin: 03/04/18 19:18 Dose: 0.63 mg Levothyroxine Sodium (Synthroid) 40 mcg IVP DAILY@0630 [facility] Last Admin: 03/05/18 06:13 Dose: 40 mcg Lorazepam (Ativan) 2 mg IVP Q3 PRN PRN Reason: Agitation Last Admin: 03/04/18 06:42 Dose: 2 mg Mirtazapine (Remeron) 7.5 mg PO HS [facility] Last Admin: 03/04/18 21:54 Dose: 7.5 mg Nystatin (Nystop Topical Powder) 1 applic TOP TID [facility] Last Admin: 03/04/18 17:10 Dose: 1 appl Pantoprazole Sodium (Protonix Inj) 40 mg IVP DAILY [facility] Last Admin: 03/04/18 08:09 Dose: 40 mg Thiamine HCl (Vitamin B1 Inj) 100 mg IM DAILY [facility] Last Admin: 03/04/18 08:56 Dose: 100 mg - Labs Labs: 03/05/18 06:08 03/05/18 06:08 Assessment and Plan (1) Bronchopneumonia Status: Acute (2) Sacral decubitus ulcer Status: Acute (3) Toxic metabolic encephalopathy Status: Acute (4) B-cell lymphoma Status: Chronic (5) COPD (chronic obstructive pulmonary disease) Status: Chronic
[2018-03-05] MEDS ORDERED: Sodium Chloride 0.9% 250 ML IV SCH (09:15)
--- NOTE | 2018-03-05 09:52 | CP.PCM.PN ---
Subjective - Date & Time of Evaluation Date of Evaluation: 03/05/18 Time of Evaluation: 09:15 - Subjective Subjective: The patient could be aroused by painful stimuli. She is still ventilatory dependent with an FiO2 of 55% and on assist-control with a PEEP of 5 She was afebrile with atrial flutter and 3:1 conduction and a heart rate off 97 bpm Her blood pressure was 134/70 mmHg with minimal pressure support. She had a poor urine output (only 30 mL over last 2 hours) Her labs show significant leukocytosis and stable hemoglobin. I have discussed her case with Dr. Berrios with plans of tapering off pressors. She is an appropriate anti-biotics. Her prognosis remains guarded. Objective - Vital Signs/Intake and Output Vital Signs (last 24 hours): Temp Pulse Resp BP Pulse Ox 97.9 F 96 H 16 138/66 100 03/05/18 08:00 03/05/18 08:00 03/05/18 08:00 03/05/18 08:00 03/05/18 08:00 Intake and Output: 03/05/18 03/05/18 06:59 18:59 Intake Total 1292 90 Output Total 100 30 Balance 1192 60 - Medications Medications: Current Medications Acetaminophen (Tylenol 325mg Tab) 650 mg PO Q6 PRN PRN Reason: Fever >100.4 F Acetaminophen (Tylenol 325mg/10.15ml Ud) 975 mg PO Q8 PRN PRN Reason: Pain, moderate (4-7) Ascorbic Acid (Vitamin C 500 Mg Tab) 500 mg PO BID [facility] Atorvastatin Calcium (Lipitor) 10 mg PO HS [facility] Last Admin: 03/04/18 21:54 Dose: 10 mg Benzonatate (Tessalon Perles) 200 mg PO TID PRN PRN Reason: Cough Cholecalciferol (Vitamin D) 1,000 intlu PO DAILY [facility] Last Admin: 03/04/18 08:58 Dose: 1,000 intlu Digoxin (Digoxin) 0.125 mg PO DAILY [facility] Last Admin: 03/02/18 10:51 Dose: Not Given Dimethicone (Proshield Plus Skin Protectant) 1 applic TOP Q8 PRN PRN Reason: Rash Last Admin: 03/03/18 09:53 Dose: 1 applic Emollient Ointment (Vaseline Oint) 1 pkt TOP BID [facility] Last Admin: 03/04/18 17:10 Dose: 1 pkt Epoetin Rolo (Procrit) 40,000 unit SC WED [facility] Hydrocortisone Sodium Succinate (Solu-Cortef) 50 mg IV Q12H [facility] Ceftaroline Fosamil 300 mg/ (Sodium Chloride) 100 mls @ 100 mls/hr IVPB Q12 [facility]; Protocol Last Admin: 03/04/18 21:56 Dose: 100 mls/hr Gentamicin Sulfate/Sodium Chloride (Gentamicin 60mg/50ml Ns) 60 mg in 50 mls @ 49.261 mls/hr IVPB Q24H [facility]; Protocol Last Admin: 03/04/18 16:00 Dose: 49.261 mls/hr Norepinephrine Bitartrate 4 mg (/ Dextrose) 254 mls @ 19.05 mls/hr IV .[id number] [facility]; Protocol Last Admin: 03/04/18 23:21 Dose: 5 mcg/min, 19.05 mls/hr Sodium Chloride (Sodium Chloride 0.9%) 1,000 mls @ 50 mls/hr IV .Q20H [facility] Stop: 03/06/18 02:24 Last Admin: 03/05/18 02:31 Dose: 50 mls/hr Ipratropium [place] (Atrovent) 0.5 mg IH RQID [facility] Last Admin: 03/05/18 07:49 Dose: 0.5 mg Lactobacillus Acidophilus (Bacid Acidophilus) 1 cap PO BID [facility] Last Admin: 03/04/18 17:08 Dose: 1 cap Levalbuterol HCl (Xopenex) 0.63 mg INH RQID [facility] Last Admin: 03/04/18 19:18 Dose: 0.63 mg Levothyroxine Sodium (Synthroid) 40 mcg IVP DAILY@0630 [facility] Last Admin: 03/05/18 06:13 Dose: 40 mcg Lorazepam (Ativan) 2 mg IVP Q3 PRN PRN Reason: Agitation Last Admin: 03/04/18 06:42 Dose: 2 mg Mirtazapine (Remeron) 7.5 mg PO HS [facility] Last Admin: 03/04/18 21:54 Dose: 7.5 mg Nystatin (Nystop Topical Powder) 1 applic TOP TID [facility] Last Admin: 03/04/18 17:10 Dose: 1 appl Pantoprazole Sodium (Protonix Inj) 40 mg IVP DAILY [facility] Last Admin: 03/04/18 08:09 Dose: 40 mg Thiamine HCl (Vitamin B1 Inj) 100 mg IM DAILY [facility] Last Admin: 03/04/18 08:56 Dose: 100 mg - Labs Labs: 03/05/18 06:08 03/05/18 06:08
--- NOTE | 2018-03-05 10:12 | CP.PCM.PN ---
Subjective - Date & Time of Evaluation Date of Evaluation: 03/05/18 Time of Evaluation: 10:06 - Subjective Subjective: Pt is still in the ICU on a ventilator,Her BP is normal , she is afebrile and CBC is more less normal except for the WBC which is 27.0 today. Hb and platelets are normal. She is on antibiotics and will hopefully recover her resp function soon. Objective - Vital Signs/Intake and Output Vital Signs (last 24 hours): Temp Pulse Resp BP Pulse Ox 97.9 F 96 H 16 138/66 100 03/05/18 08:00 03/05/18 08:00 03/05/18 08:00 03/05/18 08:00 03/05/18 08:00 Intake and Output: 03/05/18 03/05/18 06:59 18:59 Intake Total 1292 90 Output Total 100 30 Balance 1192 60 - Medications Medications: Current Medications Acetaminophen (Tylenol 325mg Tab) 650 mg PO Q6 PRN PRN Reason: Fever >100.4 F Acetaminophen (Tylenol 325mg/10.15ml Ud) 975 mg PO Q8 PRN PRN Reason: Pain, moderate (4-7) Ascorbic Acid (Vitamin C 500 Mg Tab) 500 mg PO BID [facility] Atorvastatin Calcium (Lipitor) 10 mg PO HS [facility] Last Admin: 03/04/18 21:54 Dose: 10 mg Benzonatate (Tessalon Perles) 200 mg PO TID PRN PRN Reason: Cough Cholecalciferol (Vitamin D) 1,000 intlu PO DAILY [facility] Last Admin: 03/04/18 08:58 Dose: 1,000 intlu Digoxin (Digoxin) 0.125 mg PO DAILY [facility] Last Admin: 03/02/18 10:51 Dose: Not Given Dimethicone (Proshield Plus Skin Protectant) 1 applic TOP Q8 PRN PRN Reason: Rash Last Admin: 03/03/18 09:53 Dose: 1 applic Emollient Ointment (Vaseline Oint) 1 pkt TOP BID [facility] Last Admin: 03/04/18 17:10 Dose: 1 pkt Epoetin Rolo (Procrit) 40,000 unit SC WED [facility] Hydrocortisone Sodium Succinate (Solu-Cortef) 50 mg IV Q12H [facility] Ceftaroline Fosamil 300 mg/ (Sodium Chloride) 100 mls @ 100 mls/hr IVPB Q12 [facility]; Protocol Last Admin: 03/04/18 21:56 Dose: 100 mls/hr Gentamicin Sulfate/Sodium Chloride (Gentamicin 60mg/50ml Ns) 60 mg in 50 mls @ 49.261 mls/hr IVPB Q24H [facility]; Protocol Last Admin: 03/04/18 16:00 Dose: 49.261 mls/hr Norepinephrine Bitartrate 4 mg (/ Dextrose) 254 mls @ 19.05 mls/hr IV .[id number] [facility]; Protocol Last Admin: 03/04/18 23:21 Dose: 5 mcg/min, 19.05 mls/hr Sodium Chloride (Sodium Chloride 0.9%) 1,000 mls @ 50 mls/hr IV .Q20H [facility] Stop: 03/06/18 02:24 Last Admin: 03/05/18 02:31 Dose: 50 mls/hr Ipratropium [place] (Atrovent) 0.5 mg IH RQID [facility] Last Admin: 03/05/18 07:49 Dose: 0.5 mg Lactobacillus Acidophilus (Bacid Acidophilus) 1 cap PO BID [facility] Last Admin: 03/04/18 17:08 Dose: 1 cap Levalbuterol HCl (Xopenex) 0.63 mg INH RQID [facility] Last Admin: 03/04/18 19:18 Dose: 0.63 mg Levothyroxine Sodium (Synthroid) 40 mcg IVP DAILY@0630 [facility] Last Admin: 03/05/18 06:13 Dose: 40 mcg Lorazepam (Ativan) 2 mg IVP Q3 PRN PRN Reason: Agitation Last Admin: 03/04/18 06:42 Dose: 2 mg Mirtazapine (Remeron) 7.5 mg PO HS [facility] Last Admin: 03/04/18 21:54 Dose: 7.5 mg Nystatin (Nystop Topical Powder) 1 applic TOP TID [facility] Last Admin: 03/04/18 17:10 Dose: 1 appl Pantoprazole Sodium (Protonix Inj) 40 mg IVP DAILY [facility] Last Admin: 03/04/18 08:09 Dose: 40 mg Thiamine HCl (Vitamin B1 Inj) 100 mg IM DAILY [facility] Last Admin: 03/04/18 08:56 Dose: 100 mg - Labs Labs: 03/05/18 06:08 03/05/18 06:08
[2018-03-05] MEDS: Levalbuterol 0.63 MG/3 ML Inhal Soln UD INH SCH ×4 (10:25→19:11)
[2018-03-05] MEDS: Petrolatum UD PAK TOP SCH ×2 (10:51→16:07)
[2018-03-05] MEDS: Cholecalciferol 1,000 INTLU TAB PO SCH (10:51)
[2018-03-05] MEDS: Thiamine 100 mg/ml Inj IM SCH (10:51)
[2018-03-05] MEDS ORDERED: Glucagon Recombinant 1 mg Inj IM PRN (11:53)
[2018-03-05] MEDS ORDERED: Dextrose 50% SYRINGE Inj (50 ml) IV PRN (11:53)
[2018-03-05] MEDS: Lactobacillus Acidophilus 500 MU Cap PO SCH ×2 (12:06→16:05)
[2018-03-05] MEDS: Insulin Regular 100 units/ml SC SCH ×3 (12:19→23:00)
[2018-03-05] MEDS ORDERED: Magnesium Sulfate 1 gm in D5W 1 GM/100 ML BAG IVPB SCH ×2 (13:30→16:15)
--- NOTE | 2018-03-05 14:02 | CP.PCM.PN ---
Subjective - Date & Time of Evaluation Date of Evaluation: 03/05/18 Time of Evaluation: 13:32 - Subjective Subjective: i I D NOTE ON RESPIRATOR,LEVOPHED WBC:27.2,HGB IS STABLE RESPONSIVE TO PAINFUL STIMULI RX ZYVOX/TEFLARO/GENTAMICIN Objective - Vital Signs/Intake and Output Vital Signs (last 24 hours): Temp Pulse Resp BP Pulse Ox 97.9 F 96 H 16 138/66 100 03/05/18 08:00 03/05/18 08:00 03/05/18 08:00 03/05/18 08:00 03/05/18 08:00 Intake and Output: 03/05/18 03/05/18 06:59 18:59 Intake Total 1292 700 Output Total 100 80 Balance 1192 620 - Medications Medications: Current Medications Acetaminophen (Tylenol 325mg Tab) 650 mg PO Q6 PRN PRN Reason: Fever >100.4 F Acetaminophen (Tylenol 325mg/10.15ml Ud) 975 mg PO Q8 PRN PRN Reason: Pain, moderate (4-7) Ascorbic Acid (Vitamin C 500 Mg Tab) 500 mg PO BID REPLACED BY [facility] Last Admin: 03/05/18 12:10 Dose: 500 mg Atorvastatin Calcium (Lipitor) 10 mg PO HS REPLACED BY [facility] Last Admin: 03/04/18 21:54 Dose: 10 mg Benzonatate (Tessalon Perles) 200 mg PO TID PRN PRN Reason: Cough Cholecalciferol (Vitamin D) 1,000 intlu PO DAILY REPLACED BY [facility] Last Admin: 03/05/18 10:51 Dose: 1,000 intlu Dextrose (Dextrose 50% Inj) 0 ml IV STAT PRN; Protocol PRN Reason: Hypoglycemia Protocol Dextrose (Glutose 15) 0 gm PO ONCE PRN; Protocol PRN Reason: Hypoglycemia Protocol Digoxin (Digoxin) 0.125 mg PO DAILY REPLACED BY [facility] Last Admin: 03/02/18 10:51 Dose: Not Given Dimethicone (Proshield Plus Skin Protectant) 1 applic TOP Q8 PRN PRN Reason: Rash Last Admin: 03/03/18 09:53 Dose: 1 applic Emollient Ointment (Vaseline Oint) 1 pkt TOP BID REPLACED BY [facility] Last Admin: 03/05/18 10:51 Dose: 1 pkt Epoetin Rolo (Procrit) 40,000 unit SC WED REPLACED BY [facility] Glucagon (Glucagen Diagnostic Kit) 0 mg IM STAT PRN; Protocol PRN Reason: Hypoglycemia Protocol Hydrocortisone Sodium Succinate (Solu-Cortef) 50 mg IV Q12H RUIZ Last Admin: 03/05/18 10:45 Dose: 50 mg Ceftaroline Fosamil 300 mg/ (Sodium Chloride) 100 mls @ 100 mls/hr IVPB Q12 RUIZ; Protocol Last Admin: 03/05/18 10:50 Dose: 100 mls/hr Gentamicin Sulfate/Sodium Chloride (Gentamicin 60mg/50ml Ns) 60 mg in 50 mls @ 49.261 mls/hr IVPB Q24H RUIZ; Protocol Last Admin: 03/04/18 16:00 Dose: 49.261 mls/hr Norepinephrine Bitartrate 4 mg (/ Dextrose) 254 mls @ 19.05 mls/hr IV .[id number] RUIZ; Protocol Last Titration: 03/05/18 12:12 Dose: 2.5 mcg/min, 9.53 mls/hr Sodium Chloride (Sodium Chloride 0.9%) 1,000 mls @ 50 mls/hr IV .Q20H RUIZ Stop: 03/06/18 02:24 Last Admin: 03/05/18 02:31 Dose: 50 mls/hr Linezolid (Zyvox 600mg/300ml D5w) 600 mg in 300 mls @ 300 mls/hr IVPB Q12 RUIZ; Protocol Magnesium Sulfate/Dextrose (Magnesium Sulfate 1 Gm/100 Ml D5w) 1 gm in 100 mls @ 200 mls/hr IVPB ONCE RUIZ Insulin Human Regular (Humulin R) 0 units SC ACCU-CHECK RUIZ; Protocol Last Admin: 03/05/18 12:19 Dose: 10 unit Ipratropium [place] (Atrovent) 0.5 mg IH RQID RUIZ Last Admin: 03/05/18 11:42 Dose: 0.5 mg Lactobacillus Acidophilus (Bacid Acidophilus) 1 cap PO BID RUIZ Last Admin: 03/05/18 12:06 Dose: 1 cap Levalbuterol HCl (Xopenex) 0.63 mg INH RQID RUIZ Last Admin: 03/05/18 11:42 Dose: 0.63 mg Levothyroxine Sodium (Synthroid) 40 mcg IVP DAILY@0630 RUIZ Last Admin: 03/05/18 06:13 Dose: 40 mcg Lorazepam (Ativan) 2 mg IVP Q3 PRN PRN Reason: Agitation Last Admin: 03/04/18 06:42 Dose: 2 mg Mirtazapine (Remeron) 7.5 mg PO HS REPLACED BY [facility] Last Admin: 03/04/18 21:54 Dose: 7.5 mg Nystatin (Nystop Topical Powder) 1 applic TOP TID REPLACED BY [facility] Last Admin: 03/05/18 12:09 Dose: 1 appl Pantoprazole Sodium (Protonix Inj) 40 mg IVP DAILY REPLACED BY [facility] Last Admin: 03/05/18 10:45 Dose: 40 mg Thiamine HCl (Vitamin B1 Inj) 100 mg IM DAILY REPLACED BY [facility] Last Admin: 03/05/18 10:51 Dose: 100 mg - Labs Labs: 03/05/18 06:08 03/05/18 06:08
--- NOTE | 2018-03-05 14:34 | CP.CCUPN ---
CCU Subjective - Physician Review Events Since Last Encounter (Free Text): 03/05/18 14:32 barely responsive, grimaces to painful stimuli. CCU Objective - Vital Signs / Intake & Output Vital Signs (Last 4 hours): Vital Signs Temp Pulse Resp BP Pulse Ox 03/05/18 14:00 100 H 17 125/56 L 100 03/05/18 13:00 101 H 20 128/87 100 03/05/18 12:00 98.9 F 101 H 18 129/72 100 03/05/18 11:00 98 H 18 129/70 100 Intake and Output (Last 8hrs): Intake & Output 03/04/18 03/05/18 03/05/18 22:59 06:59 14:59 Intake Total 636 956 980 Output Total 50 100 100 Balance 586 856 880 Weight 164 lb Intake: IV 236 386 350 Intake, Piggyback 150 210 100 Oral 40 Tube Feeding 250 320 280 Free Water Flush 250 Output: Urine 50 100 100 Urethral (Pena) 50 100 100 Other: # Bowel Movements 1 1 - Physical Exam Narrative Physical Exam (Free Text): 03/05/18 14:33 cachectic Head: Positive for: Atraumatic, Normocephalic Pupils: Positive for: PERRL Extroacular Muscles: Positive for: EOMI Conjunctiva: Positive for: Normal Ears: Positive for: Normal Mouth: Positive for: Moist Mucous Membranes Pharnyx: Positive for: Normal Nose (Internal): Positive for: Normal Inspection Neck: Positive for: Normal Range of Motion Respiratory/Chest: Positive for: Clear to Auscultation Cardiovascular: Positive for: Regular Rate and Rhythm, Normal S1, S2. Negative for: Murmurs Abdomen: Positive for: Normal Bowel Sounds. Negative for: Tenderness, Distention Back: Positive for: Decubitus Ulcer Upper Extremity: Positive for: Normal Inspection Lower Extremity: Positive for: Normal Inspection Neurological: Negative for: GCS=15 Psychiatric: Negative for: Alert - Medications Active Medications: Active Medications Generic Name Dose Route Start Last Admin Trade Name Freq PRN Reason Stop Dose Admin Acetaminophen 650 mg 03/02/18 04:23 Tylenol 325mg Tab PO Q6 PRN Fever >100.4 F Acetaminophen 975 mg 03/02/18 21:45 Tylenol 325mg/10.15ml Ud PO Q8 PRN Pain, moderate (4-7) Ascorbic Acid 500 mg 03/05/18 09:00 03/05/18 12:10 Vitamin C 500 Mg Tab PO 500 mg BID RUIZ Administration Atorvastatin Calcium 10 mg 03/01/18 22:00 03/04/18 21:54 Lipitor PO 10 mg HS RUIZ Administration Benzonatate 200 mg 03/01/18 20:33 Tessalon Perles PO TID PRN Cough Cholecalciferol 1,000 intlu 03/02/18 09:00 03/05/18 10:51 Vitamin D PO 1,000 intlu DAILY RUIZ Administration Dextrose 0 ml 03/05/18 11:53 Dextrose 50% Inj IV STAT PRN Hypoglycemia Protocol Protocol Dextrose 0 gm 03/05/18 11:53 Glutose 15 PO ONCE PRN Hypoglycemia Protocol Protocol Digoxin 0.125 mg 03/02/18 09:00 03/02/18 10:51 Digoxin PO Not Given DAILY RUIZ Dimethicone 1 applic 03/01/18 19:56 03/03/18 09:53 Proshield Plus Skin Protectant TOP 1 applic Q8 PRN Administration Rash Emollient Ointment 1 pkt 03/02/18 09:00 03/05/18 10:51 Vaseline Oint TOP 1 pkt BID RUIZ Administration Epoetin Rolo 40,000 unit 03/07/18 09:00 Procrit SC WED RUIZ Glucagon 0 mg 03/05/18 11:53 Glucagen Diagnostic Kit IM STAT PRN Hypoglycemia Protocol Protocol Heparin Sodium (Porcine) 5,000 units 03/05/18 17:00 Heparin SC Q8 RUIZ Protocol Hydrocortisone Sodium Succinate 50 mg 03/05/18 09:30 03/05/18 10:45 Solu-Cortef IV 50 mg Q12H RUIZ Administration Ceftaroline Fosamil 300 mg/ 100 mls @ 100 mls/hr 03/03/18 21:00 03/05/18 10:50 Sodium Chloride IVPB 100 mls/hr Q12 RUIZ Administration Protocol Gentamicin Sulfate/Sodium Chloride 60 mg in 50 mls @ 49.261 mls/hr 03/04/18 15:00 03/04/18 16:00 Gentamicin 60mg/50ml Ns IVPB 49.261 mls/hr Q24H RUIZ Administration Protocol Norepinephrine Bitartrate 4 mg 254 mls @ 19.05 mls/hr 03/04/18 23:15 03/05/18 12:12 / Dextrose IV 2.5 mcg/min .[id number] RUIZ 9.53 mls/hr Titration Protocol 5 MCG/MIN Sodium Chloride 1,000 mls @ 50 mls/hr 03/05/18 02:30 03/05/18 02:31 Sodium Chloride 0.9% IV 03/06/18 02:24 50 mls/hr .Q20H RUIZ Administration Linezolid 600 mg in 300 mls @ 300 mls/hr 03/05/18 21:00 Zyvox 600mg/300ml D5w IVPB Q12 RUIZ Protocol Magnesium Sulfate/Dextrose 1 gm in 100 mls @ 200 mls/hr 03/05/18 13:30 Magnesium Sulfate 1 Gm/100 Ml D5w IVPB ONCE RUIZ 1 GM/30 MIN Fluconazole 50 mls @ 50 mls/hr 03/05/18 13:45 Diflucan Iv 100 Mg/50 Ml Ns IVPB DAILY RUIZ Protocol Insulin Human Regular 0 units 03/05/18 12:00 03/05/18 12:19 Humulin R SC 10 unit ACCU-CHECK RUIZ Administration Protocol Ipratropium [place] 0.5 mg 03/01/18 20:00 03/05/18 11:42 Atrovent IH 0.5 mg RQID RUIZ Administration Lactobacillus Acidophilus 1 cap 03/02/18 09:00 03/05/18 12:06 Bacid Acidophilus PO 1 cap BID RUIZ Administration Levalbuterol HCl 0.63 mg 03/03/18 12:00 03/05/18 11:42 Xopenex INH 0.63 mg RQID RUIZ Administration Levothyroxine Sodium 40 mcg 03/03/18 06:30 03/05/18 06:13 Synthroid IVP 40 mcg DAILY@0630 RUIZ Administration Lorazepam 2 mg 03/03/18 19:59 03/04/18 06:42 Ativan IVP 2 mg Q3 PRN Administration Agitation Mirtazapine 7.5 mg 03/01/18 22:00 03/04/18 21:54 Remeron PO 7.5 mg HS RUIZ Administration Nystatin 1 applic 03/02/18 17:00 03/05/18 12:09 Nystop Topical Powder TOP 1 appl TID RUIZ Administration Pantoprazole Sodium 40 mg 03/03/18 09:00 03/05/18 10:45 Protonix Inj IVP 40 mg DAILY RUIZ Administration Thiamine HCl 100 mg 03/03/18 10:45 03/05/18 10:51 Vitamin B1 Inj IM 100 mg DAILY RUIZ Administration - Patient Studies Lab Studies: Microbiology Studies 03/03/18 14:06 Gram Stain - Final Trachasp Sputum Culture - Final Yeast Species 03/02/18 23:14 MRSA Culture (Admit) - Final Nose MRSA NOT DETECTED 03/01/18 17:30 Blood Culture - Preliminary Blood-Venous NO GROWTH AFTER 3 DAYS 03/02/18 18:54 Gram Stain - Final Sacral Wound Culture - Final Klebsiella Pneumoniae Ssp Pneu Enterococcus Faecium Lab Studies 03/05/18 03/05/18 03/05/18 Range/Units 11:51 06:08 06:08 WBC 27.1 H D (4.8-10.8) K/uL RBC 3.87 (3.80-5.20) Mil/uL Hgb 10.6 L (12.0-16.0) g/dL Hct 34.7 (34.0-47.0) % MCV 89.8 (81.0-99.0) fl MCH 27.4 (27.0-31.0) pg MCHC 30.5 L (33.0-37.0) g/dL RDW 19.4 H (11.5-14.5) % Plt Count 251 D (130-400) K/uL pCO2 (35-45) mm/Hg pO2 (80-100) mm/Hg HCO3 (21-28) mmol/L ABG pH (7.35-7.45) ABG Total CO2 (22-28) mmol/L ABG O2 Saturation (95-98) % ABG O2 Content (15-23) ML/dL ABG Base Excess (-2.0-3.0) mmol/L ABG Hemoglobin (11.7-17.4) g/dL ABG Carboxyhemoglobin (0.5-1.5) % POC ABG HHb (Measured) (0.0-5.0) % ABG Methemoglobin (0.0-3.0) % ABG O2 Capacity (16-24) mL/dL [place] Test A-a O2 Difference mm/Hg Hgb O2 Saturation (95.0-98.0) % Vent Mode Mechanical Rate FiO2 % Tidal Volume PEEP Sodium 134 (132-148) mmol/l Potassium 3.5 L (3.6-5.0) MMOL/L Chloride 105 (98-107) mmol/L Carbon Dioxide 16 L (22-30) mmol/L Anion Gap 17 (10-20) BUN 33 H (7-17) mg/dl Creatinine 2.1 H (0.7-1.2) mg/dl Est GFR ( Amer) 28 Est GFR (Non-Af Amer) 23 POC Glucose (mg/dL) 365 H (65-110) mg/dL Random Glucose 287 H (65-105) mg/dL Calcium 7.8 L (8.4-10.2) mg/dL Magnesium 1.9 (1.6-2.3) MG/DL 03/05/18 03/04/18 Range/Units 05:28 22:14 WBC (4.8-10.8) K/uL RBC (3.80-5.20) Mil/uL Hgb (12.0-16.0) g/dL Hct (34.0-47.0) % MCV (81.0-99.0) fl MCH (27.0-31.0) pg MCHC (33.0-37.0) g/dL RDW (11.5-14.5) % Plt Count (130-400) K/uL pCO2 29 L (35-45) mm/Hg pO2 156 H (80-100) mm/Hg HCO3 16.8 L (21-28) mmol/L ABG pH 7.31 L (7.35-7.45) ABG Total CO2 15.5 L (22-28) mmol/L ABG O2 Saturation 100.0 H (95-98) % ABG O2 Content 14.7 L (15-23) ML/dL ABG Base Excess -10.4 L (-2.0-3.0) mmol/L ABG Hemoglobin 10.6 L (11.7-17.4) g/dL ABG Carboxyhemoglobin 1.8 H (0.5-1.5) % POC ABG HHb (Measured) 0.0 (0.0-5.0) % ABG Methemoglobin 1.5 (0.0-3.0) % ABG O2 Capacity 14.7 L (16-24) mL/dL [place] Test Yes A-a O2 Difference 200.0 mm/Hg Hgb O2 Saturation 96.7 (95.0-98.0) % Vent Mode A/c Mechanical Rate 16 FiO2 55.0 % Tidal Volume 450 PEEP 5 Sodium (132-148) mmol/l Potassium (3.6-5.0) MMOL/L Chloride (98-107) mmol/L Carbon Dioxide (22-30) mmol/L Anion Gap (10-20) BUN (7-17) mg/dl Creatinine (0.7-1.2) mg/dl Est GFR ( Amer) Est GFR (Non-Af Amer) POC Glucose (mg/dL) 274 H (65-110) mg/dL Random Glucose (65-105) mg/dL Calcium (8.4-10.2) mg/dL Magnesium (1.6-2.3) MG/DL Laboratory Results - last 24 hr 03/04/18 03/05/18 03/05/18 22:14 05:28 06:08 WBC 27.1 H D RBC 3.87 Hgb 10.6 L Hct 34.7 MCV 89.8 MCH 27.4 MCHC 30.5 L RDW 19.4 H Plt Count 251 D pCO2 29 L pO2 156 H HCO3 16.8 L ABG pH 7.31 L ABG Total CO2 15.5 L ABG O2 Saturation 100.0 H ABG O2 Content 14.7 L ABG Base Excess -10.4 L ABG Hemoglobin 10.6 L ABG Carboxyhemoglobin 1.8 H POC ABG HHb (Measured) 0.0 ABG Methemoglobin 1.5 ABG O2 Capacity 14.7 L [place] Test Yes A-a O2 Difference 200.0 Hgb O2 Saturation 96.7 Vent Mode A/c Mechanical Rate 16 FiO2 55.0 Tidal Volume 450 PEEP 5 Sodium Potassium Chloride Carbon Dioxide Anion Gap BUN Creatinine Est GFR ( Amer) Est GFR (Non-Af Amer) POC Glucose (mg/dL) 274 H Random Glucose Calcium Magnesium 03/05/18 03/05/18 06:08 11:51 WBC RBC Hgb Hct MCV MCH MCHC RDW Plt Count pCO2 pO2 HCO3 ABG pH ABG Total CO2 ABG O2 Saturation ABG O2 Content ABG Base Excess ABG Hemoglobin ABG Carboxyhemoglobin POC ABG HHb (Measured) ABG Methemoglobin ABG O2 Capacity [place] Test A-a O2 Difference Hgb O2 Saturation Vent Mode Mechanical Rate FiO2 Tidal Volume PEEP Sodium 134 Potassium 3.5 L Chloride 105 Carbon Dioxide 16 L Anion Gap 17 BUN 33 H Creatinine 2.1 H Est GFR ( Amer) 28 Est GFR (Non-Af Amer) 23 POC Glucose (mg/dL) 365 H Random Glucose 287 H Calcium 7.8 L Magnesium 1.9 Fingerstick Blood Sugar Results: 365 Review of Systems - Review of Systems Systems not reviewed;Unavailable: Altered Mental Status Critical Care Progress Note - Ventilator Checklist Head of Bed 30 Degrees: Yes Daily Sedation Vacation: Yes Daily Assessment of Readiness to Wean: Yes Daily Spontaneous Breathing Trial: Yes PUD Prophalyxis: Yes DVT Prophylaxis: Yes Oral Care with Chlorhexidine Gluconate {CHG}: Yes - Nutrition Nutrition: Nutrition Category Date Time Status NPO Diet [DIET] Diets 03/03/18 Breakfast Active Assessment/Plan (1) Respiratory failure Assessment and plan: 77yo F. PMHx COPD, CAD with stents, HTN, dyslipidemia, hypothyroidism, JENNIFER, lymphoma, Myelodysplastic syndrome, CKD stage 4, recent chemo (02/07/18), afib. Intubated (03/02). Neuro: barely responsive, grimaces to painful stimuli. sedation held for several days. Remeron. Pulm: acute respiratory failure on vent. bilateral pleural effusions. possibly underlying Pneumonia. COPD on hydrocortisone 50mg IV q12h. CV: septic shock, on levophed intermittently. afib rate controlled with digoxin. Hem: leucytosis. anemia of chronic disease, continue epoetin. Renal: acute oliguric renal failure. NS@50 Endo: DM type 2, hyperglycemia exacerbated by steriods. RISS for coverage. Hypothyroidism continue levothyroxine. GI: NPO, [place]@35 ID: septic from multiple sources, UTI, decubitus ulcer, possible pneumonia. Continue Gentamicin, Zyvox, Ceftaroline and Fluconazole. ID - Dr. La DVT proph - heparin sq GI proph - protonix pena for strict I/O's during acute illness Code status - full code Critical Care Time spent 45 minutes Multi-disciplinary rounds were performed with house staff, nursing, speech therapy, respiratory therapy, pharmacy and nutrition with integrated input from the primary team/attending and other consulting services. The documented time is cumulative and includes review of patient data/exams/labs/chart review and examination of the patient on rounds and throughout the day; time is exclusive of any procedures or teaching time. Current Visit: Yes Status: Acute
[2018-03-05] MEDS: Fluconazole IV 100mg/50 ml NS 50 ML IVPB SCH (15:56)
[2018-03-05] MEDS: Gentamicin 60mg/50ml NS 60 MG/50 ML BAG IVPB SCH (15:56)
[2018-03-05] MEDS ORDERED: Magnesium Sulfate 1 gm in D5W 1 GM/100 ML BAG IVPB ONE (18:46)
[2018-03-05] MEDS: Linezolid 600 mg in D5W 300 ml 600 MG/300 ML BAG IVPB SCH (20:35)
[2018-03-05] MEDS ORDERED: Insulin Detemir 100 Units/ml Inj SC SCH (22:00)
[2018-03-06 05:32] LABS: CALCIUM 7.7 mg/dL (8.4-10.2)
[2018-03-06 05:46] LABS: BASO # 0.1 K/uL (0.0-0.2); BASO % 0.6 % (0.0-2.0); HEMOGLOBIN 9.1 g/dL (12.0-16.0); LYMPH # 1.1 K/uL (1.0-4.3); LYMPH % 5.9 % (20.0-40.0); MEAN CELL VOLUME 87.9 fl (81.0-99.0); MEAN CORPUSCULAR HEMOGLOBIN 27.1 pg (27.0-31.0); MEAN CORPUSCULAR HGB CONC 30.9 g/dL (33.0-37.0); MONO # 0.3 K/uL (0.0-0.8); MONO % 1.9 % (0.0-10.0); NEUT % 91.6 % (50.0-75.0); NRBC % 0.1 % (0.0-0.0); PLATELET COUNT 129 K/uL (130-400); RBC 3.36 Mil/uL (3.80-5.20); RED CELL DISTRIBUTION WIDTH 19.5 % (11.5-14.5); WHITE BLOOD COUNT 18.6 K/uL (4.8-10.8)
[2018-03-06] MEDS: Levothyroxine 100 mcg (0.1 mg) Inj IVP SCH (05:47)
[2018-03-06 05:54] LABS: PROTHROMBIN TIME 11.2 Seconds (9.8-13.1)
[2018-03-06 05:56] LABS: PARTIAL THROMBOPLASTIN TIME 41.3 Seconds (25.6-37.1)
[2018-03-06] MEDS: Insulin Regular 100 units/ml SC SCH ×4 (06:46→22:45)
--- NOTE | 2018-03-06 06:55 | CP.PCM.PN ---
Objective - Vital Signs/Intake and Output Vital Signs (last 24 hours): Temp Pulse Resp BP Pulse Ox 98.4 F 107 H 10 L 122/67 100 03/06/18 04:00 03/06/18 05:56 03/06/18 05:56 03/06/18 05:56 03/06/18 05:00 Intake and Output: 03/05/18 03/06/18 18:59 06:59 Intake Total 1834 1720 Output Total 120 100 Balance 1714 1620 - Medications Medications: Current Medications Acetaminophen (Tylenol 325mg Tab) 650 mg PO Q6 PRN PRN Reason: Fever >100.4 F Acetaminophen (Tylenol 325mg/10.15ml Ud) 975 mg PO Q8 PRN PRN Reason: Pain, moderate (4-7) Ascorbic Acid (Vitamin C 500 Mg Tab) 500 mg PO BID [facility] Last Admin: 03/05/18 16:08 Dose: 500 mg Atorvastatin Calcium (Lipitor) 10 mg PO HS [facility] Last Admin: 03/05/18 21:13 Dose: 10 mg Benzonatate (Tessalon Perles) 200 mg PO TID PRN PRN Reason: Cough Cholecalciferol (Vitamin D) 1,000 intlu PO DAILY [facility] Last Admin: 03/05/18 10:51 Dose: 1,000 intlu Dextrose (Dextrose 50% Inj) 0 ml IV STAT PRN; Protocol PRN Reason: Hypoglycemia Protocol Dextrose (Glutose 15) 0 gm PO ONCE PRN; Protocol PRN Reason: Hypoglycemia Protocol Digoxin (Digoxin) 0.125 mg PO DAILY [facility] Last Admin: 03/02/18 10:51 Dose: Not Given Dimethicone (Proshield Plus Skin Protectant) 1 applic TOP Q8 PRN PRN Reason: Rash Last Admin: 03/03/18 09:53 Dose: 1 applic Emollient Ointment (Vaseline Oint) 1 pkt TOP BID [facility] Last Admin: 03/05/18 16:07 Dose: 1 pkt Epoetin Rolo (Procrit) 40,000 unit SC WED [facility] Glucagon (Glucagen Diagnostic Kit) 0 mg IM STAT PRN; Protocol PRN Reason: Hypoglycemia Protocol Heparin Sodium (Porcine) (Heparin) 5,000 units SC Q8 RUIZ; Protocol Last Admin: 03/06/18 00:27 Dose: 5,000 units Hydrocortisone Sodium Succinate (Solu-Cortef) 50 mg IV Q12H [facility] Last Admin: 03/05/18 20:44 Dose: 50 mg Ceftaroline Fosamil 300 mg/ (Sodium Chloride) 100 mls @ 100 mls/hr IVPB Q12 RUIZ; Protocol Last Admin: 03/05/18 20:42 Dose: 100 mls/hr Gentamicin Sulfate/Sodium Chloride (Gentamicin 60mg/50ml Ns) 60 mg in 50 mls @ 49.261 mls/hr IVPB Q24H RUIZ; Protocol Last Admin: 03/05/18 15:56 Dose: 49.261 mls/hr Linezolid (Zyvox 600mg/300ml D5w) 600 mg in 300 mls @ 300 mls/hr IVPB Q12 RUIZ; Protocol Last Admin: 03/05/18 20:35 Dose: 300 mls/hr Fluconazole (Diflucan Iv 100 Mg/50 Ml Ns) 50 mls @ 50 mls/hr IVPB DAILY [facility]; Protocol Last Admin: 03/05/18 15:56 Dose: 50 mls/hr Insulin Detemir (Levemir) [address] [facility] Last Admin: 03/05/18 21:15 Dose: 5 units Insulin Human Regular (Humulin R) 0 units SC ACCU-CHECK [facility]; Protocol Last Admin: 03/06/18 06:46 Dose: 4 unit Ipratropium [place] (Atrovent) 0.5 mg IH RQID [facility] Last Admin: 03/05/18 19:11 Dose: 0.5 mg Lactobacillus Acidophilus (Bacid Acidophilus) 1 cap PO BID [facility] Last Admin: 03/05/18 16:05 Dose: 1 cap Levalbuterol HCl (Xopenex) 0.63 mg INH RQID [facility] Last Admin: 03/05/18 19:11 Dose: 0.63 mg Levothyroxine Sodium (Synthroid) 40 mcg IVP DAILY@0630 [facility] Last Admin: 03/06/18 05:47 Dose: 40 mcg Lorazepam (Ativan) 2 mg IVP Q3 PRN PRN Reason: Agitation Last Admin: 03/04/18 06:42 Dose: 2 mg Mirtazapine (Remeron) 7.5 mg PO HS [facility] Last Admin: 03/05/18 21:17 Dose: 7.5 mg Nystatin (Nystop Topical Powder) 1 applic TOP TID [facility] Last Admin: 03/05/18 16:06 Dose: 1 appl Pantoprazole Sodium (Protonix Inj) 40 mg IVP DAILY [facility] Last Admin: 03/05/18 10:45 Dose: 40 mg Thiamine HCl (Vitamin B1 Inj) 100 mg IM DAILY [facility] Last Admin: 03/05/18 10:51 Dose: 100 mg - Labs Labs: 03/06/18 04:30 03/06/18 04:30 PT 11.2 Seconds (9.8-13.1) 03/06/18 04:30 INR 1.0 03/06/18 04:30 APTT 41.3 Seconds (25.6-37.1) H 03/06/18 04:30
[2018-03-06] MEDS: Ipratropium 0.02% Inhal Soln (0.5 mg/2.5 ml) UD IH SCH ×4 (07:26→19:20)
[2018-03-06] MEDS: Levalbuterol 0.63 MG/3 ML Inhal Soln UD INH SCH ×4 (07:27→19:20)
[2018-03-06 08:23] LABS: ABG ALLEN TEST YES; ARTERIAL BLOOD GAS HCO3 16.4 mmol/L (21-28); ARTERIAL BLOOD GAS HEMOGLOBIN 9.7 g/dL (11.7-17.4); ARTERIAL BLOOD GAS O2 CAPACITY 13.4 mL/dL (16-24); ARTERIAL BLOOD GAS O2 CONTENT 13.4 ML/dL (15-23); ARTERIAL BLOOD GAS O2 SAT 99.7 % (95-98); ARTERIAL BLOOD GAS PCO2 29 mm/Hg (35-45); ARTERIAL BLOOD GAS PO2 139 mm/Hg (80-100); ARTERIAL BLOOD GAS TCO2 15.2 mmol/L (22-28)
--- NOTE | 2018-03-06 09:07 | CP.PCM.PN ---
Subjective - Date & Time of Evaluation Date of Evaluation: 03/06/18 Time of Evaluation: 09:04 - Subjective Subjective: Seen on morning ICU rounds. Appears more awake and alert this morning. Requires restraints to prevent self extubation. Moving all 4 extremities spontaneously. Not following specific commands. Reduced airways secretions as per nursing. Has remained afebrile, off pressors, well oxygenated. Still manifests metabolic acidosis. Urine output remains around 200 mls. Sputum and urine cultures grew yeast species. Started on Diflucan yesterday. WBC down today to 18.6. Hemoglobin stable at 9.1GM. Dependant edema gradually increasing. Extremities are warm to touch, no cyanosis. Neck is supple, trachea midline. No dullness on percussion of the anterior chest wall. No subcut emphysema palpable. Breath sounds are present equally in both lungs. Only slight harshness to the breath sounds, no bronchial breathing. Scattered rhonchi and medium rales (few), no wheezes. Heart sounds distant, regular rhythm. Abdomen is soft, hypo bowel sounds. General improvement in overall clinical condition. Renal function worrisome. Will reduce hydrocortisone to 50MG once daily tomorrow AM. Ventilator changed to SIMV 14 BPM, .45 FiO2, PEEP 5cm, PS 15cm. Monitor ABG and CXR. Objective - Vital Signs/Intake and Output Vital Signs (last 24 hours): Temp Pulse Resp BP Pulse Ox 98.4 F 107 H 10 L 122/67 100 03/06/18 04:00 03/06/18 05:56 03/06/18 05:56 03/06/18 05:56 03/06/18 05:00 Intake and Output: 03/05/18 03/06/18 23:59 11:59 Intake Total 2169 865 Output Total 65 100 Balance 2104 765 - Medications Medications: Current Medications Acetaminophen (Tylenol 325mg Tab) 650 mg PO Q6 PRN PRN Reason: Fever >100.4 F Acetaminophen (Tylenol 325mg/10.15ml Ud) 975 mg PO Q8 PRN PRN Reason: Pain, moderate (4-7) Ascorbic Acid (Vitamin C 500 Mg Tab) 500 mg PO BID [facility] Last Admin: 03/05/18 16:08 Dose: 500 mg Atorvastatin Calcium (Lipitor) 10 mg PO HS [facility] Last Admin: 03/05/18 21:13 Dose: 10 mg Cholecalciferol (Vitamin D) 1,000 intlu PO DAILY [facility] Last Admin: 03/05/18 10:51 Dose: 1,000 intlu Dextrose (Dextrose 50% Inj) 0 ml IV STAT PRN; Protocol PRN Reason: Hypoglycemia Protocol Dextrose (Glutose 15) 0 gm PO ONCE PRN; Protocol PRN Reason: Hypoglycemia Protocol Digoxin (Digoxin) 0.125 mg PO DAILY [facility] Last Admin: 03/02/18 10:51 Dose: Not Given Dimethicone (Proshield Plus Skin Protectant) 1 applic TOP Q8 PRN PRN Reason: Rash Last Admin: 03/03/18 09:53 Dose: 1 applic Emollient Ointment (Vaseline Oint) 1 pkt TOP BID [facility] Last Admin: 03/05/18 16:07 Dose: 1 pkt Epoetin Rolo (Procrit) 40,000 unit SC WED [facility] Glucagon (Glucagen Diagnostic Kit) 0 mg IM STAT PRN; Protocol PRN Reason: Hypoglycemia Protocol Heparin Sodium (Porcine) (Heparin) 5,000 units SC Q8 [facility]; Protocol Last Admin: 03/06/18 00:27 Dose: 5,000 units Hydrocortisone Sodium Succinate (Solu-Cortef) 50 mg IV Q12H [facility] Last Admin: 03/05/18 20:44 Dose: 50 mg Ceftaroline Fosamil 300 mg/ (Sodium Chloride) 100 mls @ 100 mls/hr IVPB Q12 [facility]; Protocol Last Admin: 03/05/18 20:42 Dose: 100 mls/hr Gentamicin Sulfate/Sodium Chloride (Gentamicin 60mg/50ml Ns) 60 mg in 50 mls @ 49.261 mls/hr IVPB Q24H [facility]; Protocol Last Admin: 03/05/18 15:56 Dose: 49.261 mls/hr Linezolid (Zyvox 600mg/300ml D5w) 600 mg in 300 mls @ 300 mls/hr IVPB Q12 [facility]; Protocol Last Admin: 03/05/18 20:35 Dose: 300 mls/hr Fluconazole (Diflucan Iv 100 Mg/50 Ml Ns) 50 mls @ 50 mls/hr IVPB DAILY [facility]; Protocol Last Admin: 03/05/18 15:56 Dose: 50 mls/hr Insulin Detemir (Levemir) 8 units SC HS [facility] Insulin Human Regular (Humulin R) 0 units SC ACCU-CHECK [facility]; Protocol Last Admin: 03/06/18 06:46 Dose: 4 unit Ipratropium [place] (Atrovent) 0.5 mg IH RQID [facility] Last Admin: 03/06/18 07:26 Dose: 0.5 mg Lactobacillus Acidophilus (Bacid Acidophilus) 1 cap PO BID [facility] Last Admin: 03/05/18 16:05 Dose: 1 cap Levalbuterol HCl (Xopenex) 0.63 mg INH RQID [facility] Last Admin: 03/06/18 07:27 Dose: 0.63 mg Levothyroxine Sodium (Synthroid) 40 mcg IVP DAILY@0630 [facility] Last Admin: 03/06/18 05:47 Dose: 40 mcg Lorazepam (Ativan) 2 mg IVP Q3 PRN PRN Reason: Agitation Last Admin: 03/04/18 06:42 Dose: 2 mg Mirtazapine (Remeron) 7.5 mg PO HS [facility] Last Admin: 03/05/18 21:17 Dose: 7.5 mg Nystatin (Nystop Topical Powder) 1 applic TOP TID [facility] Last Admin: 03/05/18 16:06 Dose: 1 appl Pantoprazole Sodium (Protonix Inj) 40 mg IVP DAILY [facility] Last Admin: 03/05/18 10:45 Dose: 40 mg Thiamine HCl (Vitamin B1 Inj) 100 mg IM DAILY [facility] Last Admin: 03/05/18 10:51 Dose: 100 mg - Labs Labs: 03/06/18 04:30 03/06/18 04:30 PT 11.2 Seconds (9.8-13.1) 03/06/18 04:30 INR 1.0 03/06/18 04:30 APTT 41.3 Seconds (25.6-37.1) H 03/06/18 04:30 Assessment and Plan (1) Bronchopneumonia Status: Acute (2) Sacral decubitus ulcer Status: Acute (3) Toxic metabolic encephalopathy Status: Acute (4) B-cell lymphoma Status: Chronic (5) COPD (chronic obstructive pulmonary disease) Status: Chronic
[2018-03-06] MEDS: Lactobacillus Acidophilus 500 MU Cap PO SCH ×2 (09:28→16:13)
[2018-03-06] MEDS: Fluconazole IV 100mg/50 ml NS 50 ML IVPB SCH (09:29)
[2018-03-06] MEDS: Petrolatum UD PAK TOP SCH ×2 (09:39→16:18)
[2018-03-06] MEDS: Thiamine 100 mg/ml Inj IM SCH (09:39)
[2018-03-06] MEDS: Cholecalciferol 1,000 INTLU TAB PO SCH (09:42)
[2018-03-06] MEDS: Linezolid 600 mg in D5W 300 ml 600 MG/300 ML BAG IVPB SCH ×2 (10:00→21:33)
--- NOTE | 2018-03-06 10:07 | RAD ---
Date of service: 03/06/2018 HISTORY: intubated COMPARISON: 03/05/2018 FINDINGS: LUNGS: No active pulmonary disease. PLEURA: No significant pleural effusion identified, no pneumothorax apparent. CARDIOVASCULAR: No aortic atherosclerotic calcification present. Normal heart size. Sternotomy wires noted. ET tube, NG tube and right central venous infusion port are all grossly unchanged. No pulmonary vascular congestion. OSSEOUS STRUCTURES: No significant abnormalities. VISUALIZED UPPER ABDOMEN: Normal. OTHER FINDINGS: None. IMPRESSION: No active disease. Lines and tubes unchanged.
[2018-03-06 10:42] LABS: LYMPHOCYTE 6 % (20-50); MONOCYTE 6 % (0-10); MYELOCYTE 1 % (0-0); NEUTROPHIL 87 % (42-75); PLATELET ESTIMATE SLIGHTLY DECREASED (NORMAL); TOTAL CELLS COUNTED 100
[2018-03-06 10:43] LABS: ANISOCYTOSIS SLIGHT; HYPOCHROMIC SLIGHT; OVALOCYTES SLIGHT; SCHISTOCYTES SLIGHT
[2018-03-06 10:44] LABS: ACANTHOCYTES SLIGHT; TOXIC GRANULATION PRESENT
--- NOTE | 2018-03-06 10:52 | CP.PCM.PN ---
Subjective - Date & Time of Evaluation Date of Evaluation: 03/06/18 Time of Evaluation: 08:30 - Subjective Subjective: The patient is still ventilatory dependent and easily arousable. Her FiO2 was 50% and she showed a oxygen saturation of 98%. The patient is off of all pressors. newspaper inserter shows atrial flutter with3:1 conduction and a heart rate of 102 bpm. Her blood pressure was 122/70 mmHg. Her jugular venous pressure was not elevated. Leukocytosis appears resolving. Hemoglobin is stable. BUN and creatinine are stable as well. The patient is on multiple IV anti-biotics as well as anti-fungal agents. Patient is stable from cardiovascular point of view. Objective - Vital Signs/Intake and Output Vital Signs (last 24 hours): Temp Pulse Resp BP Pulse Ox 98.4 F 107 H 10 L 122/67 100 03/06/18 04:00 03/06/18 05:56 03/06/18 05:56 03/06/18 05:56 03/06/18 05:00 Intake and Output: 03/06/18 03/06/18 06:59 18:59 Intake Total 1720 Output Total 100 Balance 1620 - Medications Medications: Current Medications Acetaminophen (Tylenol 325mg Tab) 650 mg PO Q6 PRN PRN Reason: Fever >100.4 F Acetaminophen (Tylenol 325mg/10.15ml Ud) 975 mg PO Q8 PRN PRN Reason: Pain, moderate (4-7) Ascorbic Acid (Vitamin C 500 Mg Tab) 500 mg PO BID [facility] Last Admin: 03/06/18 09:41 Dose: 500 mg Atorvastatin Calcium (Lipitor) 10 mg PO HS [facility] Last Admin: 03/05/18 21:13 Dose: 10 mg Cholecalciferol (Vitamin D) 1,000 intlu PO DAILY [facility] Last Admin: 03/06/18 09:42 Dose: 1,000 intlu Dextrose (Dextrose 50% Inj) 0 ml IV STAT PRN; Protocol PRN Reason: Hypoglycemia Protocol Dextrose (Glutose 15) 0 gm PO ONCE PRN; Protocol PRN Reason: Hypoglycemia Protocol Digoxin (Digoxin) 0.125 mg PO DAILY [facility] Last Admin: 03/02/18 10:51 Dose: Not Given Dimethicone (Proshield Plus Skin Protectant) 1 applic TOP Q8 PRN PRN Reason: Rash Last Admin: 11/17/18 09:53 Dose: 1 applic Emollient Ointment (Vaseline Oint) 1 pkt TOP BID [facility] Last Admin: 03/06/18 09:39 Dose: 1 pkt Epoetin Rolo (Procrit) 40,000 unit SC WED [facility] Glucagon (Glucagen Diagnostic Kit) 0 mg IM STAT PRN; Protocol PRN Reason: Hypoglycemia Protocol Heparin Sodium (Porcine) (Heparin) 5,000 units SC Q8 [facility]; Protocol Last Admin: 03/06/18 09:30 Dose: 5,000 units Hydrocortisone Sodium Succinate (Solu-Cortef) 50 mg IV Q12H [facility] Last Admin: 03/06/18 09:36 Dose: 50 mg Ceftaroline Fosamil 300 mg/ (Sodium Chloride) 100 mls @ 100 mls/hr IVPB Q12 [facility]; Protocol Last Admin: 03/06/18 09:43 Dose: 100 mls/hr Gentamicin Sulfate/Sodium Chloride (Gentamicin 60mg/50ml Ns) 60 mg in 50 mls @ 49.261 mls/hr IVPB Q24H [facility]; Protocol Last Admin: 03/05/18 15:56 Dose: 49.261 mls/hr Linezolid (Zyvox 600mg/300ml D5w) 600 mg in 300 mls @ 300 mls/hr IVPB Q12 [facility]; Protocol Last Admin: 03/05/18 20:35 Dose: 300 mls/hr Fluconazole (Diflucan Iv 100 Mg/50 Ml Ns) 50 mls @ 50 mls/hr IVPB DAILY [facility]; Protocol Last Admin: 03/06/18 09:29 Dose: 50 mls/hr Insulin Detemir (Levemir) [address] [facility] Insulin Human Regular (Humulin R) 0 units SC ACCU-CHECK [facility]; Protocol Last Admin: 03/06/18 06:46 Dose: 4 unit Ipratropium [place] (Atrovent) 0.5 mg IH RQID [facility] Last Admin: 03/06/18 07:26 Dose: 0.5 mg Lactobacillus Acidophilus (Bacid Acidophilus) 1 cap PO BID [facility] Last Admin: 03/06/18 09:28 Dose: 1 cap Levalbuterol HCl (Xopenex) 0.63 mg INH RQID [facility] Last Admin: 03/06/18 07:27 Dose: 0.63 mg Levothyroxine Sodium (Synthroid) 40 mcg IVP DAILY@0630 [facility] Last Admin: 03/06/18 05:47 Dose: 40 mcg Lorazepam (Ativan) 2 mg IVP Q3 PRN PRN Reason: Agitation Last Admin: 03/04/18 06:42 Dose: 2 mg Mirtazapine (Remeron) 7.5 mg PO HS [facility] Last Admin: 03/05/18 21:17 Dose: 7.5 mg Nystatin (Nystop Topical Powder) 1 applic TOP TID [facility] Last Admin: 03/06/18 09:33 Dose: 1 appl Pantoprazole Sodium (Protonix Inj) 40 mg IVP DAILY [facility] Last Admin: 03/06/18 09:35 Dose: 40 mg Thiamine HCl (Vitamin B1 Inj) 100 mg IM DAILY [facility] Last Admin: 03/06/18 09:39 Dose: 100 mg - Labs Labs: 03/06/18 04:30 03/06/18 04:30 PT 11.2 Seconds (9.8-13.1) 03/06/18 04:30 INR 1.0 03/06/18 04:30 APTT 41.3 Seconds (25.6-37.1) H 03/06/18 04:30
--- NOTE | 2018-03-06 11:48 | CP.PCM.PN ---
Subjective - Date & Time of Evaluation Date of Evaluation: 03/06/18 Time of Evaluation: 11:47 - Subjective Subjective: Pt is slowly improving. She is still intubated but will probably be extubated tomorrow. CBC ias stable. If all goes well, will start chemotherapy on monday Objective - Vital Signs/Intake and Output Vital Signs (last 24 hours): Temp Pulse Resp BP Pulse Ox 99.1 F 106 H 27 H 127/68 100 03/06/18 08:00 03/06/18 10:00 03/06/18 10:00 03/06/18 10:00 03/06/18 10:00 Intake and Output: 03/06/18 03/06/18 06:59 18:59 Intake Total 1720 365 Output Total 100 45 Balance 1620 320 - Medications Medications: Current Medications Acetaminophen (Tylenol 325mg Tab) 650 mg PO Q6 PRN PRN Reason: Fever >100.4 F Acetaminophen (Tylenol 325mg/10.15ml Ud) 975 mg PO Q8 PRN PRN Reason: Pain, moderate (4-7) Ascorbic Acid (Vitamin C 500 Mg Tab) 500 mg PO BID [facility] Last Admin: 03/06/18 09:41 Dose: 500 mg Atorvastatin Calcium (Lipitor) 10 mg PO HS [facility] Last Admin: 03/05/18 21:13 Dose: 10 mg Cholecalciferol (Vitamin D) 1,000 intlu PO DAILY [facility] Last Admin: 03/06/18 09:42 Dose: 1,000 intlu Dextrose (Dextrose 50% Inj) 0 ml IV STAT PRN; Protocol PRN Reason: Hypoglycemia Protocol Dextrose (Glutose 15) 0 gm PO ONCE PRN; Protocol PRN Reason: Hypoglycemia Protocol Digoxin (Digoxin) 0.125 mg PO DAILY [facility] Last Admin: 03/02/18 10:51 Dose: Not Given Dimethicone (Proshield Plus Skin Protectant) 1 applic TOP Q8 PRN PRN Reason: Rash Last Admin: 03/03/18 09:53 Dose: 1 applic Emollient Ointment (Vaseline Oint) 1 pkt TOP BID [facility] Last Admin: 03/06/18 09:39 Dose: 1 pkt Epoetin Rolo (Procrit) 40,000 unit SC WED [facility] Glucagon (Glucagen Diagnostic Kit) 0 mg IM STAT PRN; Protocol PRN Reason: Hypoglycemia Protocol Heparin Sodium (Porcine) (Heparin) 5,000 units SC Q8 [facility]; Protocol Last Admin: 03/06/18 09:30 Dose: 5,000 units Hydrocortisone Sodium Succinate (Solu-Cortef) 50 mg IV Q12H [facility] Last Admin: 03/06/18 09:36 Dose: 50 mg Ceftaroline Fosamil 300 mg/ (Sodium Chloride) 100 mls @ 100 mls/hr IVPB Q12 [facility]; Protocol Last Admin: 03/06/18 09:43 Dose: 100 mls/hr Gentamicin Sulfate/Sodium Chloride (Gentamicin 60mg/50ml Ns) 60 mg in 50 mls @ 49.261 mls/hr IVPB Q24H [facility]; Protocol Last Admin: 03/05/18 15:56 Dose: 49.261 mls/hr Linezolid (Zyvox 600mg/300ml D5w) 600 mg in 300 mls @ 300 mls/hr IVPB Q12 [facility]; Protocol Last Admin: 03/06/18 10:00 Dose: 300 mls/hr Fluconazole (Diflucan Iv 100 Mg/50 Ml Ns) 50 mls @ 50 mls/hr IVPB DAILY [facility]; Protocol Last Admin: 03/06/18 09:29 Dose: 50 mls/hr Insulin Detemir (Levemir) 8 units SC [facility] Insulin Human Regular (Humulin R) 0 units SC ACCU-CHECK [facility]; Protocol Last Admin: 03/06/18 06:46 Dose: 4 unit Ipratropium [place] (Atrovent) 0.5 mg IH RQID [facility] Last Admin: 03/06/18 11:02 Dose: 0.5 mg Lactobacillus Acidophilus (Bacid Acidophilus) 1 cap PO BID [facility] Last Admin: 03/06/18 09:28 Dose: 1 cap Levalbuterol HCl (Xopenex) 0.63 mg INH RQID [facility] Last Admin: 03/06/18 11:02 Dose: 0.63 mg Levothyroxine Sodium (Synthroid) 40 mcg IVP DAILY@0630 [facility] Last Admin: 03/06/18 05:47 Dose: 40 mcg Lorazepam (Ativan) 2 mg IVP Q3 PRN PRN Reason: Agitation Last Admin: 03/04/18 06:42 Dose: 2 mg Mirtazapine (Remeron) 7.5 mg PO HS [facility] Last Admin: 03/05/18 21:17 Dose: 7.5 mg Nystatin (Nystop Topical Powder) 1 applic TOP TID [facility] Last Admin: 03/06/18 09:33 Dose: 1 appl Pantoprazole Sodium (Protonix Inj) 40 mg IVP DAILY [facility] Last Admin: 03/06/18 09:35 Dose: 40 mg Thiamine HCl (Vitamin B1 Inj) 100 mg IM DAILY [facility] Last Admin: 03/06/18 09:39 Dose: 100 mg - Labs Labs: 03/06/18 04:30 03/06/18 04:30 PT 11.2 Seconds (9.8-13.1) 03/06/18 04:30 INR 1.0 03/06/18 04:30 APTT 41.3 Seconds (25.6-37.1) H 03/06/18 04:30
--- NOTE | 2018-03-06 12:07 | CP.CCUPN ---
CCU Subjective - Physician Review Events Since Last Encounter (Free Text): 03/06/18 12:05 more alert today. moving around purposefully. CCU Objective - Vital Signs / Intake & Output Vital Signs (Last 4 hours): Vital Signs Pulse Resp BP Pulse Ox 03/06/18 10:00 106 H 27 H 127/68 100 Intake and Output (Last 8hrs): Intake & Output 03/05/18 03/06/18 03/06/18 22:59 06:59 14:59 Intake Total 1709 865 365 Output Total 20 100 45 Balance 1689 765 320 Weight 170 lb Intake: IV 604 450 50 Intake, Piggyback 500 150 Tube Feeding 255 315 105 Free Water Flush 350 100 60 Output: Urine 20 100 45 Urethral (Pena) 20 100 45 Other: # Bowel Movements 1 1 - Physical Exam Head: Positive for: Atraumatic, Normocephalic Pupils: Positive for: PERRL Extroacular Muscles: Positive for: EOMI Conjunctiva: Positive for: Normal Ears: Positive for: Normal Mouth: Positive for: Moist Mucous Membranes Pharnyx: Positive for: Normal Nose (Internal): Positive for: Normal Inspection Neck: Positive for: Normal Range of Motion Respiratory/Chest: Positive for: Clear to Auscultation Cardiovascular: Positive for: Regular Rate and Rhythm, Normal S1, S2. Negative for: Murmurs Abdomen: Positive for: Normal Bowel Sounds. Negative for: Tenderness, Distention Back: Positive for: Decubitus Ulcer Upper Extremity: Positive for: Normal Inspection Lower Extremity: Positive for: Normal Inspection Neurological: Negative for: GCS=15 Psychiatric: Negative for: Alert - Medications Active Medications: Active Medications Generic Name Dose Route Start Last Admin Trade Name Freq PRN Reason Stop Dose Admin Acetaminophen 650 mg 03/02/18 04:23 Tylenol 325mg Tab PO Q6 PRN Fever >100.4 F Acetaminophen 975 mg 03/02/18 21:45 Tylenol 325mg/10.15ml Ud PO Q8 PRN Pain, moderate (4-7) Ascorbic Acid 500 mg 03/05/18 09:00 03/06/18 09:41 Vitamin C 500 Mg Tab PO 500 mg BID RUIZ Administration Atorvastatin Calcium 10 mg 03/01/18 22:00 03/05/18 21:13 Lipitor PO 10 mg HS RUIZ Administration Cholecalciferol 1,000 intlu 03/02/18 09:00 03/06/18 09:42 Vitamin D PO 1,000 intlu DAILY RUIZ Administration Dextrose 0 ml 03/05/18 11:53 Dextrose 50% Inj IV STAT PRN Hypoglycemia Protocol Protocol Dextrose 0 gm 03/05/18 11:53 Glutose 15 PO ONCE PRN Hypoglycemia Protocol Protocol Digoxin 0.125 mg 03/02/18 09:00 03/02/18 10:51 Digoxin PO Not Given DAILY RUIZ Dimethicone 1 applic 03/01/18 19:56 03/03/18 09:53 Proshield Plus Skin Protectant TOP 1 applic Q8 PRN Administration Rash Emollient Ointment 1 pkt 03/02/18 09:00 03/06/18 09:39 Vaseline Oint TOP 1 pkt BID RUIZ Administration Epoetin Rolo 40,000 unit 03/07/18 09:00 Procrit SC WED RUIZ Glucagon 0 mg 03/05/18 11:53 Glucagen Diagnostic Kit IM STAT PRN Hypoglycemia Protocol Protocol Heparin Sodium (Porcine) 5,000 units 03/05/18 17:00 03/06/18 09:30 Heparin SC 5,000 units Q8 RUIZ Administration Protocol Hydrocortisone Sodium Succinate 50 mg 03/05/18 09:30 03/06/18 09:36 Solu-Cortef IV 50 mg Q12H RUIZ Administration Ceftaroline Fosamil 300 mg/ 100 mls @ 100 mls/hr 03/03/18 21:00 03/06/18 09:43 Sodium Chloride IVPB 100 mls/hr Q12 RUIZ Administration Protocol Gentamicin Sulfate/Sodium Chloride 60 mg in 50 mls @ 49.261 mls/hr 03/04/18 15:00 03/05/18 15:56 Gentamicin 60mg/50ml Ns IVPB 49.261 mls/hr Q24H RUIZ Administration Protocol Linezolid 600 mg in 300 mls @ 300 mls/hr 03/05/18 21:00 03/06/18 10:00 Zyvox 600mg/300ml D5w IVPB 300 mls/hr Q12 RUIZ Administration Protocol Fluconazole 50 mls @ 50 mls/hr 03/05/18 13:45 03/06/18 09:29 Diflucan Iv 100 Mg/50 Ml Ns IVPB 50 mls/hr DAILY RUIZ Administration Protocol Insulin Detemir 8 units 03/06/18 22:00 Levemir SC HS [facility] Insulin Human Regular 0 units 03/05/18 12:00 03/06/18 06:46 Humulin R SC 4 unit ACCU-CHECK RUIZ Administration Protocol Ipratropium [place] 0.5 mg 03/01/18 20:00 03/06/18 11:02 Atrovent IH 0.5 mg RQID RUIZ Administration Lactobacillus Acidophilus 1 cap 03/02/18 09:00 03/06/18 09:28 Bacid Acidophilus PO 1 cap BID RUIZ Administration Levalbuterol HCl 0.63 mg 03/03/18 12:00 03/06/18 11:02 Xopenex INH 0.63 mg RQID RUIZ Administration Levothyroxine Sodium 40 mcg 03/03/18 06:30 03/06/18 05:47 Synthroid IVP 40 mcg DAILY@0630 RUIZ Administration Lorazepam 2 mg 03/03/18 19:59 03/04/18 06:42 Ativan IVP 2 mg Q3 PRN Administration Agitation Mirtazapine 7.5 mg 03/01/18 22:00 03/05/18 21:17 Remeron PO 7.5 mg HS RUIZ Administration Nystatin 1 applic 03/02/18 17:00 03/06/18 09:33 Nystop Topical Powder TOP 1 appl TID RUIZ Administration Pantoprazole Sodium 40 mg 03/03/18 09:00 03/06/18 09:35 Protonix Inj IVP 40 mg DAILY RUIZ Administration Thiamine HCl 100 mg 03/03/18 10:45 03/06/18 09:39 Vitamin B1 Inj IM 100 mg DAILY URIZ Administration - Patient Studies Lab Studies: Microbiology Studies 03/04/18 18:11 Urine Culture - Final Urine,Pena Yeast Species 03/01/18 17:30 Blood Culture - Preliminary Blood-Venous NO GROWTH AFTER 4 DAYS 03/03/18 14:06 Gram Stain - Final Trachasp Sputum Culture - Final Yeast Species Lab Studies 03/06/18 03/06/18 03/06/18 Range/Units 10:59 04:38 04:30 WBC (4.8-10.8) K/uL RBC (3.80-5.20) Mil/uL Hgb (12.0-16.0) g/dL Hct (34.0-47.0) % MCV (81.0-99.0) fl MCH (27.0-31.0) pg MCHC (33.0-37.0) g/dL RDW (11.5-14.5) % Plt Count (130-400) K/uL MPV (7.2-11.7) fl Neut % (Auto) (50.0-75.0) % Lymph % (Auto) (20.0-40.0) % [place] % (Auto) (0.0-10.0) % Eos % (Auto) (0.0-4.0) % Baso % (Auto) (0.0-2.0) % Neut # (Auto) (1.8-7.0) K/uL Lymph # (Auto) (1.0-4.3) K/uL [place] # (Auto) (0.0-0.8) K/uL Eos # (Auto) (0.0-0.7) K/uL Baso # (Auto) (0.0-0.2) K/uL Neutrophils % (Manual) (42-75) % Lymphocytes % (Manual) (20-50) % Monocytes % (Manual) (0-10) % Myelocytes % (0-0) % Toxic Granulation Platelet Estimate (NORMAL) Hypochromasia (manual) Anisocytosis (manual) Ovalocytes Acanthocytes (Spur) Schistocytes PT 11.2 (9.8-13.1) Seconds INR 1.0 APTT 41.3 H (25.6-37.1) Seconds pCO2 (35-45) mm/Hg pO2 (80-100) mm/Hg HCO3 (21-28) mmol/L ABG pH (7.35-7.45) ABG Total CO2 (22-28) mmol/L ABG O2 Saturation (95-98) % ABG O2 Content (15-23) ML/dL ABG Base Excess (-2.0-3.0) mmol/L ABG Hemoglobin (11.7-17.4) g/dL ABG Carboxyhemoglobin (0.5-1.5) % POC ABG HHb (Measured) (0.0-5.0) % ABG Methemoglobin (0.0-3.0) % ABG O2 Capacity (16-24) mL/dL [place] Test A-a O2 Difference mm/Hg Hgb O2 Saturation (95.0-98.0) % Vent Mode Mechanical Rate FiO2 % Tidal Volume PEEP Sodium (132-148) mmol/l Potassium (3.6-5.0) MMOL/L Chloride (98-107) mmol/L Carbon Dioxide (22-30) mmol/L Anion Gap (10-20) BUN (7-17) mg/dl Creatinine (0.7-1.2) mg/dl Est GFR ( Amer) Est GFR (Non-Af Amer) POC Glucose (mg/dL) 244 H (65-110) mg/dL Random Glucose (65-105) mg/dL Lactic Acid (0.7-2.1) MMOL/L Calcium (8.4-10.2) mg/dL Magnesium (1.6-2.3) MG/DL C. difficile Ag & Toxin Negative (NEGATIVE) 03/06/18 03/06/18 03/06/18 Range/Units 04:30 04:30 04:30 WBC 18.6 H (4.8-10.8) K/uL RBC 3.36 L (3.80-5.20) Mil/uL Hgb 9.1 L (12.0-16.0) g/dL Hct 29.6 L (34.0-47.0) % MCV 87.9 (81.0-99.0) fl MCH 27.1 (27.0-31.0) pg MCHC 30.9 L (33.0-37.0) g/dL RDW 19.5 H (11.5-14.5) % Plt Count 129 L D (130-400) K/uL MPV 11.0 (7.2-11.7) fl Neut % (Auto) 91.6 H (50.0-75.0) % Lymph % (Auto) 5.9 L (20.0-40.0) % [place] % (Auto) 1.9 (0.0-10.0) % Eos % (Auto) 0.0 (0.0-4.0) % Baso % (Auto) 0.6 (0.0-2.0) % Neut # (Auto) 17.0 H (1.8-7.0) K/uL Lymph # (Auto) 1.1 (1.0-4.3) K/uL [place] # (Auto) 0.3 (0.0-0.8) K/uL Eos # (Auto) 0.0 (0.0-0.7) K/uL Baso # (Auto) 0.1 (0.0-0.2) K/uL Neutrophils % (Manual) 87 H (42-75) % Lymphocytes % (Manual) 6 L (20-50) % Monocytes % (Manual) 6 (0-10) % Myelocytes % 1 H (0-0) % Toxic Granulation Present Platelet Estimate Slightly decreased L (NORMAL) Hypochromasia (manual) Slight Anisocytosis (manual) Slight Ovalocytes Slight Acanthocytes (Spur) Slight Schistocytes Slight PT (9.8-13.1) Seconds INR APTT (25.6-37.1) Seconds pCO2 (35-45) mm/Hg pO2 (80-100) mm/Hg HCO3 (21-28) mmol/L ABG pH (7.35-7.45) ABG Total CO2 (22-28) mmol/L ABG O2 Saturation (95-98) % ABG O2 Content (15-23) ML/dL ABG Base Excess (-2.0-3.0) mmol/L ABG Hemoglobin (11.7-17.4) g/dL ABG Carboxyhemoglobin (0.5-1.5) % POC ABG HHb (Measured) (0.0-5.0) % ABG Methemoglobin (0.0-3.0) % ABG O2 Capacity (16-24) mL/dL [place] Test A-a O2 Difference mm/Hg Hgb O2 Saturation (95.0-98.0) % Vent Mode Mechanical Rate FiO2 % Tidal Volume PEEP Sodium 133 (132-148) mmol/l Potassium 3.7 (3.6-5.0) MMOL/L Chloride 109 H (98-107) mmol/L Carbon Dioxide 15 L (22-30) mmol/L Anion Gap 13 (10-20) BUN 35 H (7-17) mg/dl Creatinine 2.1 H (0.7-1.2) mg/dl Est GFR ( Amer) 28 Est GFR (Non-Af Amer) 23 POC Glucose (mg/dL) (65-110) mg/dL Random Glucose 246 H (65-105) mg/dL Lactic Acid 1.6 (0.7-2.1) MMOL/L Calcium 7.7 L (8.4-10.2) mg/dL Magnesium 2.0 (1.6-2.3) MG/DL C. difficile Ag & Toxin (NEGATIVE) 03/06/18 03/05/18 03/05/18 Range/Units 04:21 20:51 15:56 WBC (4.8-10.8) K/uL RBC (3.80-5.20) Mil/uL Hgb (12.0-16.0) g/dL Hct (34.0-47.0) % MCV (81.0-99.0) fl MCH (27.0-31.0) pg MCHC (33.0-37.0) g/dL RDW (11.5-14.5) % Plt Count (130-400) K/uL MPV (7.2-11.7) fl Neut % (Auto) (50.0-75.0) % Lymph % (Auto) (20.0-40.0) % [place] % (Auto) (0.0-10.0) % Eos % (Auto) (0.0-4.0) % Baso % (Auto) (0.0-2.0) % Neut # (Auto) (1.8-7.0) K/uL Lymph # (Auto) (1.0-4.3) K/uL [place] # (Auto) (0.0-0.8) K/uL Eos # (Auto) (0.0-0.7) K/uL Baso # (Auto) (0.0-0.2) K/uL Neutrophils % (Manual) (42-75) % Lymphocytes % (Manual) (20-50) % Monocytes % (Manual) (0-10) % Myelocytes % (0-0) % Toxic Granulation Platelet Estimate (NORMAL) Hypochromasia (manual) Anisocytosis (manual) Ovalocytes Acanthocytes (Spur) Schistocytes PT (9.8-13.1) Seconds INR APTT (25.6-37.1) Seconds pCO2 29 L (35-45) mm/Hg pO2 139 H (80-100) mm/Hg HCO3 16.4 L (21-28) mmol/L ABG pH 7.30 L (7.35-7.45) ABG Total CO2 15.2 L (22-28) mmol/L ABG O2 Saturation 99.7 H (95-98) % ABG O2 Content 13.4 L (15-23) ML/dL ABG Base Excess -10.9 L (-2.0-3.0) mmol/L ABG Hemoglobin 9.7 L (11.7-17.4) g/dL ABG Carboxyhemoglobin 1.5 (0.5-1.5) % POC ABG HHb (Measured) 0.3 (0.0-5.0) % ABG Methemoglobin 1.8 (0.0-3.0) % ABG O2 Capacity 13.4 L (16-24) mL/dL [place] Test Yes A-a O2 Difference 181.0 mm/Hg Hgb O2 Saturation 96.4 (95.0-98.0) % Vent Mode A/c Mechanical Rate 16 FiO2 50.0 % Tidal Volume 450 PEEP 5 Sodium (132-148) mmol/l Potassium (3.6-5.0) MMOL/L Chloride (98-107) mmol/L Carbon Dioxide (22-30) mmol/L Anion Gap (10-20) BUN (7-17) mg/dl Creatinine (0.7-1.2) mg/dl Est GFR ( Amer) Est GFR (Non-Af Amer) POC Glucose (mg/dL) 229 H 260 H (65-110) mg/dL Random Glucose (65-105) mg/dL Lactic Acid (0.7-2.1) MMOL/L Calcium (8.4-10.2) mg/dL Magnesium (1.6-2.3) MG/DL C. difficile Ag & Toxin (NEGATIVE) Laboratory Results - last 24 hr 03/05/18 03/05/18 03/06/18 15:56 20:51 04:21 WBC RBC Hgb Hct MCV MCH MCHC RDW Plt Count MPV Neut % (Auto) Lymph % (Auto) [place] % (Auto) Eos % (Auto) Baso % (Auto) Neut # (Auto) Lymph # (Auto) [place] # (Auto) Eos # (Auto) Baso # (Auto) Neutrophils % (Manual) Lymphocytes % (Manual) Monocytes % (Manual) Myelocytes % Toxic Granulation Platelet Estimate Hypochromasia (manual) Anisocytosis (manual) Ovalocytes Acanthocytes (Spur) Schistocytes PT INR APTT pCO2 29 L pO2 139 H HCO3 16.4 L ABG pH 7.30 L ABG Total CO2 15.2 L ABG O2 Saturation 99.7 H ABG O2 Content 13.4 L ABG Base Excess -10.9 L ABG Hemoglobin 9.7 L ABG Carboxyhemoglobin 1.5 POC ABG HHb (Measured) 0.3 ABG Methemoglobin 1.8 ABG O2 Capacity 13.4 L [place] Test Yes A-a O2 Difference 181.0 Hgb O2 Saturation 96.4 Vent Mode A/c Mechanical Rate 16 FiO2 50.0 Tidal Volume 450 PEEP 5 Sodium Potassium Chloride Carbon Dioxide Anion Gap BUN Creatinine Est GFR ( Amer) Est GFR (Non-Af Amer) POC Glucose (mg/dL) 260 H 229 H Random Glucose Lactic Acid Calcium Magnesium C. difficile Ag & Toxin 03/06/18 03/06/18 03/06/18 04:30 04:30 04:30 WBC 18.6 H RBC 3.36 L Hgb 9.1 L Hct 29.6 L MCV 87.9 MCH 27.1 MCHC 30.9 L RDW 19.5 H Plt Count 129 L D MPV 11.0 Neut % (Auto) 91.6 H Lymph % (Auto) 5.9 L [place] % (Auto) 1.9 Eos % (Auto) 0.0 Baso % (Auto) 0.6 Neut # (Auto) 17.0 H Lymph # (Auto) 1.1 [place] # (Auto) 0.3 Eos # (Auto) 0.0 Baso # (Auto) 0.1 Neutrophils % (Manual) 87 H Lymphocytes % (Manual) 6 L Monocytes % (Manual) 6 Myelocytes % 1 H Toxic Granulation Present Platelet Estimate Slightly decreased L Hypochromasia (manual) Slight Anisocytosis (manual) Slight Ovalocytes Slight Acanthocytes (Spur) Slight Schistocytes Slight PT INR APTT pCO2 pO2 HCO3 ABG pH ABG Total CO2 ABG O2 Saturation ABG O2 Content ABG Base Excess ABG Hemoglobin ABG Carboxyhemoglobin POC ABG HHb (Measured) ABG Methemoglobin ABG O2 Capacity [place] Test A-a O2 Difference Hgb O2 Saturation Vent Mode Mechanical Rate FiO2 Tidal Volume PEEP Sodium 133 Potassium 3.7 Chloride 109 H Carbon Dioxide 15 L Anion Gap 13 BUN 35 H Creatinine 2.1 H Est GFR ( Amer) 28 Est GFR (Non-Af Amer) 23 POC Glucose (mg/dL) Random Glucose 246 H Lactic Acid 1.6 Calcium 7.7 L Magnesium 2.0 C. difficile Ag & Toxin 03/06/18 03/06/18 03/06/18 04:30 04:38 10:59 WBC RBC Hgb Hct MCV MCH MCHC RDW Plt Count MPV Neut % (Auto) Lymph % (Auto) [place] % (Auto) Eos % (Auto) Baso % (Auto) Neut # (Auto) Lymph # (Auto) [place] # (Auto) Eos # (Auto) Baso # (Auto) Neutrophils % (Manual) Lymphocytes % (Manual) Monocytes % (Manual) Myelocytes % Toxic Granulation Platelet Estimate Hypochromasia (manual) Anisocytosis (manual) Ovalocytes Acanthocytes (Spur) Schistocytes PT 11.2 INR 1.0 APTT 41.3 H pCO2 pO2 HCO3 ABG pH ABG Total CO2 ABG O2 Saturation ABG O2 Content ABG Base Excess ABG Hemoglobin ABG Carboxyhemoglobin POC ABG HHb (Measured) ABG Methemoglobin ABG O2 Capacity [place] Test A-a O2 Difference Hgb O2 Saturation Vent Mode Mechanical Rate FiO2 Tidal Volume PEEP Sodium Potassium Chloride Carbon Dioxide Anion Gap BUN Creatinine Est GFR ( Amer) Est GFR (Non-Af Amer) POC Glucose (mg/dL) 244 H Random Glucose Lactic Acid Calcium Magnesium C. difficile Ag & Toxin Negative Fingerstick Blood Sugar Results: 244 Critical Care Progress Note - Nutrition Nutrition: Nutrition Category Date Time Status NPO Diet [DIET] Diets 03/03/18 Breakfast Active Assessment/Plan (1) Respiratory failure Assessment and plan: 77yo F. PMHx COPD, CAD with stents, HTN, dyslipidemia, hypothyroidism, JENNIFER, lymphoma, Myelodysplastic syndrome, CKD stage 4, recent chemo (02/07/18), afib. Intubated (03/02). Neuro: barely responsive, grimaces to painful stimuli. sedation held for sev eral days. Remeron. Pulm: acute respiratory failure on vent. bilateral pleural effusions. possibly underlying Pneumonia. COPD on hydrocortisone 50mg IV q12h. CV: septic shock, on levophed intermittently. afib rate controlled with digoxin. Hem: leucytosis. anemia of chronic disease, continue epoetin. Renal: acute oliguric renal failure. will start aggressive diuresis with albumin drip and lasix. Endo: DM type 2, hyperglycemia exacerbated by steriods. RISS for coverage. Hypothyroidism continue levothyroxine. GI: NPO, [email or web address] ID: septic from multiple sources, UTI, decubitus ulcer, possible pneumonia. Continue Gentamicin, Zyvox, Ceftaroline and Fluconazole. ID - Dr. La DVT proph - heparin sq GI proph - protonix pena for strict I/O's during acute illness Code status - DNR Spoke with daughter, who agreed to DNR. She also stated that if the patient progresses toward needing dialysis, she does not want any more invasive procedures and would not want to start dialysis. Critical Care Time spent 35 minutes Multi-disciplinary rounds were performed with house staff, nursing, speech therapy, respiratory therapy, pharmacy and nutrition with integrated input from the primary team/attending and other consulting services. The documented time is cumulative and includes review of patient data/exams/labs/chart review and examination of the patient on rounds and throughout the day; time is exclusive of any procedures or teaching time. Current Visit: Yes Status: Acute
--- NOTE | 2018-03-06 12:53 | CP.PCM.PN ---
<Syd Ochoa - Last Filed: 03/06/18 13:00> Subjective - Date & Time of Evaluation Date of Evaluation: 03/06/18 Time of Evaluation: 08:00 - Subjective Subjective: Pt seen and examined this morning. Intubated. Eyes open to voice. Seems more alert this morning. Intubated on mechanical ventilation. Discussion held with daughter, Leanna, and Chief Hospital Administrator, Dr. North, regarding the code status. Daughter states she would like mother to be DNRI. Present for conversation was Dr. Dennison. Vent settings: (PRVC, SIMV+PS), PS 15, FIO2 45 Objective - Vital Signs/Intake and Output Vital Signs (last 24 hours): Temp Pulse Resp BP Pulse Ox 99.1 F 106 H 27 H 127/68 100 03/06/18 08:00 03/06/18 10:00 03/06/18 10:00 03/06/18 10:00 03/06/18 10:00 Intake and Output: 03/06/18 03/06/18 06:59 18:59 Intake Total 1720 365 Output Total 100 45 Balance 1620 320 - Medications Medications: Current Medications Acetaminophen (Tylenol 325mg Tab) 650 mg PO Q6 PRN PRN Reason: Fever >100.4 F Acetaminophen (Tylenol 325mg/10.15ml Ud) 975 mg PO Q8 PRN PRN Reason: Pain, moderate (4-7) Albumin Human (Albumin Human 5% (12.5 Gm/250 Ml)) 12.5 gm IV Q10H [facility] Stop: 03/06/18 22:16 Ascorbic Acid (Vitamin C 500 Mg Tab) 500 mg PO BID [facility] Last Admin: 03/06/18 09:41 Dose: 500 mg Atorvastatin Calcium (Lipitor) 10 mg PO HS [facility] Last Admin: 03/05/18 21:13 Dose: 10 mg Cholecalciferol (Vitamin D) 1,000 intlu PO DAILY [facility] Last Admin: 03/06/18 09:42 Dose: 1,000 intlu Dextrose (Dextrose 50% Inj) 0 ml IV STAT PRN; Protocol PRN Reason: Hypoglycemia Protocol Dextrose (Glutose 15) 0 gm PO ONCE PRN; Protocol PRN Reason: Hypoglycemia Protocol Digoxin (Digoxin) 0.125 mg PO DAILY [facility] Last Admin: 03/02/18 10:51 Dose: Not Given Dimethicone (Proshield Plus Skin Protectant) 1 applic TOP Q8 PRN PRN Reason: Rash Last Admin: 03/03/18 09:53 Dose: 1 applic Emollient Ointment (Vaseline Oint) 1 pkt TOP BID [facility] Last Admin: 03/06/18 09:39 Dose: 1 pkt Epoetin Rolo (Procrit) 40,000 unit SC WED [facility] Furosemide (Lasix) 60 mg IV Q12H [facility] Glucagon (Glucagen Diagnostic Kit) 0 mg IM STAT PRN; Protocol PRN Reason: Hypoglycemia Protocol Heparin Sodium (Porcine) (Heparin) 5,000 units SC Q8 [facility]; Protocol Last Admin: 03/06/18 09:30 Dose: 5,000 units Hydrocortisone Sodium Succinate (Solu-Cortef) 50 mg IV Q12H [facility] Last Admin: 03/06/18 09:36 Dose: 50 mg Ceftaroline Fosamil 300 mg/ (Sodium Chloride) 100 mls @ 100 mls/hr IVPB Q12 [facility]; Protocol Last Admin: 03/06/18 09:43 Dose: 100 mls/hr Gentamicin Sulfate/Sodium Chloride (Gentamicin 60mg/50ml Ns) 60 mg in 50 mls @ 49.261 mls/hr IVPB Q24H [facility]; Protocol Last Admin: 03/05/18 15:56 Dose: 49.261 mls/hr Linezolid (Zyvox 600mg/300ml D5w) 600 mg in 300 mls @ 300 mls/hr IVPB Q12 [facility]; Protocol Last Admin: 03/06/18 10:00 Dose: 300 mls/hr Fluconazole (Diflucan Iv 100 Mg/50 Ml Ns) 50 mls @ 50 mls/hr IVPB DAILY [facility]; Protocol Last Admin: 03/06/18 09:29 Dose: 50 mls/hr Insulin Detemir (Levemir) 8 units SC HS [facility] Insulin Human Regular (Humulin R) 0 units SC ACCU-CHECK [facility]; Protocol Last Admin: 03/06/18 12:40 Dose: 6 unit Ipratropium [place] (Atrovent) 0.5 mg IH RQID [facility] Last Admin: 03/06/18 11:02 Dose: 0.5 mg Lactobacillus Acidophilus (Bacid Acidophilus) 1 cap PO BID [facility] Last Admin: 03/06/18 09:28 Dose: 1 cap Levalbuterol HCl (Xopenex) 0.63 mg INH RQID [facility] Last Admin: 03/06/18 11:02 Dose: 0.63 mg Levothyroxine Sodium (Synthroid) 40 mcg IVP DAILY@0630 [facility] Last Admin: 03/06/18 05:47 Dose: 40 mcg Lorazepam (Ativan) 2 mg IVP Q3 PRN PRN Reason: Agitation Last Admin: 03/04/18 06:42 Dose: 2 mg Mirtazapine (Remeron) 7.5 mg PO HS [facility] Last Admin: 03/05/18 21:17 Dose: 7.5 mg Nystatin (Nystop Topical Powder) 1 applic TOP TID [facility] Last Admin: 03/06/18 09:33 Dose: 1 appl Pantoprazole Sodium (Protonix Inj) 40 mg IVP DAILY [facility] Last Admin: 03/06/18 09:35 Dose: 40 mg Thiamine HCl (Vitamin B1 Inj) 100 mg IM DAILY [facility] Last Admin: 03/06/18 09:39 Dose: 100 mg - Labs Labs: 03/06/18 04:30 03/06/18 04:30 PT 11.2 Seconds (9.8-13.1) 03/06/18 04:30 INR 1.0 03/06/18 04:30 APTT 41.3 Seconds (25.6-37.1) H 03/06/18 04:30 - Constitutional Appears: No Acute Distress - Head Exam Head Exam: NORMAL INSPECTION - Eye Exam Eye Exam: Normal appearance. absent: Nystagmus, Scleral icterus Pupil Exam: PERRL - ENT Exam ENT Exam: Mucous Membranes Moist Additional comments: Orotracheal and Orogastro tube tube in place - Neck Exam Neck Exam: absent: Meningismus - Respiratory Exam Respiratory Exam: Rales, Rhonchi. absent: Accessory Muscle Use, Wheezes, Stridor - Cardiovascular Exam Cardiovascular Exam: Tachycardia, +S1, +S2. absent: Murmur - GI/Abdominal Exam GI & Abdominal Exam: Distended, Soft. absent: Tenderness - Extremities Exam Extremities Exam: Normal Capillary Refill, Normal Inspection. absent: Pedal Edema - Neurological Exam Neurological Exam: Awake (lethargic) Assessment and Plan - Assessment and Plan (Free Text) Assessment: 77 y/o woman w/ pmh of HTN, CAD s/p CABG, atrial fibrillation (not on anticoagulation due to thrombocytopenia), B cell lymphoma, MDS s/p chemo with pancytopenia , SIADH was admitted to [facility] for evaluation and treatment of bilateral pneumonia and possible c.diff. Pt went into respiratory failure and was placed on mechanical ventilation on 03/02. Currently on Levophed for BP stabilization. Pt is DNR as discussed with family today. Plan: Respiratory Failure - Orotracheal intubation on MV - Settings as ordered. - Pulmonology, Dr. Vazquez, recommendations appreciated - Patient is more alert today, may attempt weaning trials Hypotension - Improved - Pressors discontinued yesterday - Stable in 120's systolic Sepsis - Afebrile, Tachycardic in 100's, Leukocytosis 18.6 (down from 27.1); Lactic Acid 1.6 - X-Ray (03/01): Limited left pleural effusion stable. Small right pleural effusion not excluded. Borderline pulmonary vascular congestion. -Cxray (03/06): Improvement seen in R pleural effusion. - Wound CX (Sacral Decubitus Ulcer): Growing MDR Klebsiella Pneu (Sensitive to Gentamycin) & Vanco Resistant Enterococcus Faecium (sensitive to Zyvox) - Trach Asp Cx: Yeast species - S/P Meropenem 1gm IV Q8 x 1 day - C/W Ceftaroline 3000mg q12 (Day 4) - C/W Gentamycin 60mg/50cc q24hr (Day 3) - Started Zyvox 600mg in D5W today (Day 2) and Flucanazole 100mg daily (Day 2) - C/w Hydrocortison, Vitamin C, and Thiamine - ID Dr. Pelletier on board Decubitus ulcer - Wound care on case - Re-Positioning every 2 hour Hypomagnesia - Mg 2.0 after 2gm IV of Mg given yesterday - 1gm IV Mg given today - F/U BMP Hyperglycemia - No hx of DM - Likely secondary to IV Steroids. Hydrocortisone changed to q12 - Serum glucose improved but still elevated. Levemir increased to 8units HS. B-cell lymphoma / MDS (myelodysplastic syndrome) - On chemo - F/u Hematology/oncology consult Dr De Dios - Continue with Procrit Chronic A-fib - All antihypertensive held due to patients low blood pressure - no anticoagulation due to thrombocytopenia (Stable) COPD chronic - c/w solumedrol 50 mg IV Q8H - c/w Atrovent and Xopenex - Tessala Perles - Incentive Shoaib Hypothyroid - Chronic, controlled - C/W Levothyroxine 75mcg daily CKD stage III - stable Hearing loss - possible medication induced or age related - out pt follow up DVT PPX - SCD for now, Hx of thrombocytopenia <Malu Berrios - Last Filed: 03/06/18 14:58> Objective - Vital Signs/Intake and Output Vital Signs (last 24 hours): Temp Pulse Resp BP Pulse Ox 98.4 F 103 H 14 112/61 100 03/06/18 12:00 03/06/18 14:00 03/06/18 14:00 03/06/18 14:00 03/06/18 14:00 Intake and Output: 03/06/18 03/06/18 06:59 18:59 Intake Total 1720 885 Output Total 100 60 Balance 1620 825 - Medications Medications: Current Medications Acetaminophen (Tylenol 325mg Tab) 650 mg PO Q6 PRN PRN Reason: Fever >100.4 F Acetaminophen (Tylenol 325mg/10.15ml Ud) 975 mg PO Q8 PRN PRN Reason: Pain, moderate (4-7) Albumin Human (Albumin Human 5% (12.5 Gm/250 Ml)) 12.5 gm IV Q10H [facility] Stop: 03/06/18 22:16 Last Admin: 03/06/18 13:32 Dose: 12.5 gm Ascorbic Acid (Vitamin C 500 Mg Tab) 500 mg PO BID [facility] Last Admin: 03/06/18 09:41 Dose: 500 mg Atorvastatin Calcium (Lipitor) 10 mg PO HS [facility] Last Admin: 03/05/18 21:13 Dose: 10 mg Cholecalciferol (Vitamin D) 1,000 intlu PO DAILY [facility] Last Admin: 03/06/18 09:42 Dose: 1,000 intlu Dextrose (Dextrose 50% Inj) 0 ml IV STAT PRN; Protocol PRN Reason: Hypoglycemia Protocol Dextrose (Glutose 15) 0 gm PO ONCE PRN; Protocol PRN Reason: Hypoglycemia Protocol Digoxin (Digoxin) 0.125 mg PO DAILY [facility] Last Admin: 03/02/18 10:51 Dose: Not Given Dimethicone (Proshield Plus Skin Protectant) 1 applic TOP Q8 PRN PRN Reason: Rash Last Admin: 03/03/18 09:53 Dose: 1 applic Emollient Ointment (Vaseline Oint) 1 pkt TOP BID [facility] Last Admin: 03/06/18 09:39 Dose: 1 pkt Epoetin Rolo (Procrit) 40,000 unit SC WED [facility] Furosemide (Lasix) 60 mg IV Q12H [facility] Glucagon (Glucagen Diagnostic Kit) 0 mg IM STAT PRN; Protocol PRN Reason: Hypoglycemia Protocol Heparin Sodium (Porcine) (Heparin) 5,000 units SC Q8 [facility]; Protocol Last Admin: 03/06/18 09:30 Dose: 5,000 units Hydrocortisone Sodium Succinate (Solu-Cortef) 50 mg IV Q12H [facility] Last Admin: 03/06/18 09:36 Dose: 50 mg Ceftaroline Fosamil 300 mg/ (Sodium Chloride) 100 mls @ 100 mls/hr IVPB Q12 [facility]; Protocol Last Admin: 03/06/18 09:43 Dose: 100 mls/hr Gentamicin Sulfate/Sodium Chloride (Gentamicin 60mg/50ml Ns) 60 mg in 50 mls @ 49.261 mls/hr IVPB Q24H [facility]; Protocol Last Admin: 03/05/18 15:56 Dose: 49.261 mls/hr Linezolid (Zyvox 600mg/300ml D5w) 600 mg in 300 mls @ 300 mls/hr IVPB Q12 [facility]; Protocol Last Admin: 03/06/18 10:00 Dose: 300 mls/hr Fluconazole (Diflucan Iv 100 Mg/50 Ml Ns) 50 mls @ 50 mls/hr IVPB DAILY [facility]; Protocol Last Admin: 03/06/18 09:29 Dose: 50 mls/hr Insulin Detemir (Levemir) 8 units SC HS [facility] Insulin Human Regular (Humulin R) 0 units SC ACCU-CHECK [facility]; Protocol Last Admin: 03/06/18 12:40 Dose: 6 unit Ipratropium [place] (Atrovent) 0.5 mg IH RQID [facility] Last Admin: 03/06/18 11:02 Dose: 0.5 mg Lactobacillus Acidophilus (Bacid Acidophilus) 1 cap PO BID [facility] Last Admin: 03/06/18 09:28 Dose: 1 cap Levalbuterol HCl (Xopenex) 0.63 mg INH RQID [facility] Last Admin: 03/06/18 11:02 Dose: 0.63 mg Levothyroxine Sodium (Synthroid) 40 mcg IVP DAILY@0630 [facility] Last Admin: 03/06/18 05:47 Dose: 40 mcg Lorazepam (Ativan) 2 mg IVP Q3 PRN PRN Reason: Agitation Last Admin: 03/04/18 06:42 Dose: 2 mg Mirtazapine (Remeron) 7.5 mg PO HS [facility] Last Admin: 03/05/18 21:17 Dose: 7.5 mg Nystatin (Nystop Topical Powder) 1 applic TOP TID [facility] Last Admin: 03/06/18 12:55 Dose: 1 appl Pantoprazole Sodium (Protonix Inj) 40 mg IVP DAILY [facility] Last Admin: 03/06/18 09:35 Dose: 40 mg Thiamine HCl (Vitamin B1 Inj) 100 mg IM DAILY [facility] Last Admin: 03/06/18 09:39 Dose: 100 mg - Labs Labs: 03/06/18 04:30 03/06/18 04:30 PT 11.2 Seconds (9.8-13.1) 03/06/18 04:30 INR 1.0 03/06/18 04:30 APTT 41.3 Seconds (25.6-37.1) H 03/06/18 04:30 Attending/Attestation - Attestation I have personally seen and examined this patient.: Yes I have fully participated in the care of the patient.: Yes I have reviewed all pertinent clinical information, including history, physical exam and plan: Yes
[2018-03-06] MEDS: Albumin Human 5% (12.5 gm/250 ml) IV SCH (13:32)
--- NOTE | 2018-03-06 15:40 | CP.PCM.PN ---
Subjective - Date & Time of Evaluation Date of Evaluation: 03/06/18 Time of Evaluation: 15:28 - Subjective Subjective: I D NOTE AFEBRILE SOME IMPROVEMENT,RESPIRATORY KONG HAS BEEN ON IMV SINCE AM RESPONDING TO SOME VERBAL STIMULI GENTAMICIN TROUGH IS 2.4 AND HAVE HELD NEXT DOSE RANDOM LEVEL ORDERED FOR AM POOR URINARY OUTPUT:60ML CREATININE:2.1,GFR IS 23,BUNI 35 WBC:18.6,WAS 27.1 YESTERDAY WILL ADJUST TEFLARO DOSE TO 200 MG IV Q12 CONTINUE ZYVOX PENDING NEXT PLATELET COUNT Objective - Vital Signs/Intake and Output Vital Signs (last 24 hours): Temp Pulse Resp BP Pulse Ox 98.4 F 103 H 14 112/61 100 03/06/18 12:00 03/06/18 14:00 03/06/18 14:00 03/06/18 14:00 03/06/18 14:00 Intake and Output: 03/06/18 03/06/18 06:59 18:59 Intake Total 1720 885 Output Total 100 60 Balance 1620 825 - Medications Medications: Current Medications Acetaminophen (Tylenol 325mg Tab) 650 mg PO Q6 PRN PRN Reason: Fever >100.4 F Acetaminophen (Tylenol 325mg/10.15ml Ud) 975 mg PO Q8 PRN PRN Reason: Pain, moderate (4-7) Albumin Human (Albumin Human 5% (12.5 Gm/250 Ml)) 12.5 gm IV Q10H [facility] Stop: 03/06/18 22:16 Last Admin: 03/06/18 13:32 Dose: 12.5 gm Ascorbic Acid (Vitamin C 500 Mg Tab) 500 mg PO BID [facility] Last Admin: 03/06/18 09:41 Dose: 500 mg Atorvastatin Calcium (Lipitor) 10 mg PO HS [facility] Last Admin: 03/05/18 21:13 Dose: 10 mg Cholecalciferol (Vitamin D) 1,000 intlu PO DAILY [facility] Last Admin: 03/06/18 09:42 Dose: 1,000 intlu Dextrose (Dextrose 50% Inj) 0 ml IV STAT PRN; Protocol PRN Reason: Hypoglycemia Protocol Dextrose (Glutose 15) 0 gm PO ONCE PRN; Protocol PRN Reason: Hypoglycemia Protocol Digoxin (Digoxin) 0.125 mg PO DAILY [facility] Last Admin: 03/02/18 10:51 Dose: Not Given Dimethicone (Proshield Plus Skin Protectant) 1 applic TOP Q8 PRN PRN Reason: Rash Last Admin: 03/03/18 09:53 Dose: 1 applic Emollient Ointment (Vaseline Oint) 1 pkt TOP BID [facility] Last Admin: 03/06/18 09:39 Dose: 1 pkt Epoetin Rolo (Procrit) 40,000 unit SC WED [facility] Furosemide (Lasix) 60 mg IV Q12H [facility] Glucagon (Glucagen Diagnostic Kit) 0 mg IM STAT PRN; Protocol PRN Reason: Hypoglycemia Protocol Heparin Sodium (Porcine) (Heparin) 5,000 units SC Q8 [facility]; Protocol Last Admin: 03/06/18 09:30 Dose: 5,000 units Hydrocortisone Sodium Succinate (Solu-Cortef) 50 mg IV Q12H [facility] Last Admin: 03/06/18 09:36 Dose: 50 mg Ceftaroline Fosamil 300 mg/ (Sodium Chloride) 100 mls @ 100 mls/hr IVPB Q12 [facility]; Protocol Last Admin: 03/06/18 09:43 Dose: 100 mls/hr Linezolid (Zyvox 600mg/300ml D5w) 600 mg in 300 mls @ 300 mls/hr IVPB Q12 [facility]; Protocol Last Admin: 03/06/18 10:00 Dose: 300 mls/hr Fluconazole (Diflucan Iv 100 Mg/50 Ml Ns) 50 mls @ 50 mls/hr IVPB DAILY [facility]; Protocol Last Admin: 03/06/18 09:29 Dose: 50 mls/hr Insulin Detemir (Levemir) 8 units SC HS [facility] Insulin Human Regular (Humulin R) 0 units SC ACCU-CHECK [facility]; Protocol Last Admin: 03/06/18 12:40 Dose: 6 unit Ipratropium [place] (Atrovent) 0.5 mg IH RQID [facility] Last Admin: 03/06/18 11:02 Dose: 0.5 mg Lactobacillus Acidophilus (Bacid Acidophilus) 1 cap PO BID [facility] Last Admin: 03/06/18 09:28 Dose: 1 cap Levalbuterol HCl (Xopenex) 0.63 mg INH RQID [facility] Last Admin: 03/06/18 11:02 Dose: 0.63 mg Levothyroxine Sodium (Synthroid) 40 mcg IVP DAILY@0630 [facility] Last Admin: 03/06/18 05:47 Dose: 40 mcg Lorazepam (Ativan) 2 mg IVP Q3 PRN PRN Reason: Agitation Last Admin: 03/04/18 06:42 Dose: 2 mg Mirtazapine (Remeron) 7.5 mg PO HS [facility] Last Admin: 03/05/18 21:17 Dose: 7.5 mg Nystatin (Nystop Topical Powder) 1 applic TOP TID [facility] Last Admin: 03/06/18 12:55 Dose: 1 appl Pantoprazole Sodium (Protonix Inj) 40 mg IVP DAILY [facility] Last Admin: 03/06/18 09:35 Dose: 40 mg Thiamine HCl (Vitamin B1 Inj) 100 mg IM DAILY [facility] Last Admin: 03/06/18 09:39 Dose: 100 mg - Labs Labs: 03/06/18 04:30 03/06/18 04:30 PT 11.2 Seconds (9.8-13.1) 03/06/18 04:30 INR 1.0 03/06/18 04:30 APTT 41.3 Seconds (25.6-37.1) H 03/06/18 04:30
[2018-03-06] MEDS ORDERED: Insulin Detemir 100 Units/ml Inj SC SCH (22:00)
[2018-03-07] MEDS: Albumin Human 5% (12.5 gm/250 ml) IV SCH ×3 (00:01→21:13)
[2018-03-07 05:00] LABS: ABG ALLEN TEST YES; ARTERIAL BLOOD GAS HEMOGLOBIN 9.6 g/dL (11.7-17.4); ARTERIAL BLOOD GAS O2 CAPACITY 13.4 mL/dL (16-24); ARTERIAL BLOOD GAS O2 CONTENT 13.4 ML/dL (15-23); ARTERIAL BLOOD GAS O2 SAT 100.1 % (95-98); ARTERIAL BLOOD GAS PCO2 29 mm/Hg (35-45); ARTERIAL BLOOD GAS PH 7.29 (7.35-7.45); ARTERIAL BLOOD GAS PO2 137 mm/Hg (80-100); ARTERIAL BLOOD GAS TCO2 14.8 mmol/L (22-28)
[2018-03-07 05:27] LABS: BASO % 0.2 % (0.0-2.0); HEMOGLOBIN 8.9 g/dL (12.0-16.0); LYMPH # 0.6 K/uL (1.0-4.3); LYMPH % 2.8 % (20.0-40.0); MEAN CORPUSCULAR HEMOGLOBIN 27.3 pg (27.0-31.0); MEAN PLATELET VOLUME 10.7 fl (7.2-11.7); MONO # 0.5 K/uL (0.0-0.8); MONO % 2.6 % (0.0-10.0); NEUT # 19.7 K/uL (1.8-7.0); NEUT % 94.4 % (50.0-75.0); NRBC % 0.1 % (0.0-0.0); PLATELET COUNT 112 K/uL (130-400); RBC 3.26 Mil/uL (3.80-5.20); RED CELL DISTRIBUTION WIDTH 19.3 % (11.5-14.5); WHITE BLOOD COUNT 20.9 K/uL (4.8-10.8)
[2018-03-07 05:28] LABS: CALCIUM 8.1 mg/dL (8.4-10.2)
[2018-03-07] MEDS ORDERED: Potassium Chloride 20 mEq 100 ML IVPB ONE (05:57)
[2018-03-07] MEDS: Insulin Regular 100 units/ml SC SCH ×4 (06:15→22:16)
[2018-03-07] MEDS: Levothyroxine 100 mcg (0.1 mg) Inj IVP SCH (06:15)
[2018-03-07] MEDS: Levalbuterol 0.63 MG/3 ML Inhal Soln UD INH SCH ×4 (07:18→19:14)
[2018-03-07] MEDS: Ipratropium 0.02% Inhal Soln (0.5 mg/2.5 ml) UD IH SCH ×4 (07:18→19:14)
[2018-03-07] MEDS: Petrolatum UD PAK TOP SCH ×2 (08:42→16:00)
[2018-03-07] MEDS: Thiamine 100 mg/ml Inj IM SCH (08:45)
[2018-03-07] MEDS: Cholecalciferol 1,000 INTLU TAB PO SCH (08:53)
[2018-03-07] MEDS: Fluconazole IV 100mg/50 ml NS 50 ML IVPB SCH (08:54)
[2018-03-07 08:56] LABS: LYMPHOCYTE 2 % (20-50); MONOCYTE 2 % (0-10); NEUTROPHIL 96 % (42-75); PLATELET ESTIMATE DECREASED (NORMAL); TOTAL CELLS COUNTED 100
[2018-03-07 08:57] LABS: ANISOCYTOSIS SLIGHT
[2018-03-07 08:58] LABS: HYPOCHROMIC MODERATE; LARGE PLATELETS PRESENT; OVALOCYTES SLIGHT; SCHISTOCYTES SLIGHT; TEARDROP CELLS SLIGHT
[2018-03-07] MEDS: Lactobacillus Acidophilus 500 MU Cap PO SCH ×2 (09:12→16:02)
--- NOTE | 2018-03-07 10:01 | CP.PCM.PN ---
<Syd Ochoa - Last Filed: 03/07/18 17:11> Subjective - Date & Time of Evaluation Date of Evaluation: 03/07/18 Time of Evaluation: 08:00 - Subjective Subjective: PT seen and examined today. Eyes open to verbal. Tracking. No signs of agitation. Inbutated on MV. Objective - Vital Signs/Intake and Output Vital Signs (last 24 hours): Temp Pulse Resp BP Pulse Ox 97.3 F L 106 H 13 121/66 100 03/07/18 08:00 03/07/18 08:00 03/07/18 08:00 03/07/18 08:00 03/07/18 08:00 Intake and Output: 03/07/18 03/07/18 06:59 18:59 Intake Total 1075 0 Output Total 330 Balance 745 0 - Medications Medications: Current Medications Acetaminophen (Tylenol 325mg Tab) 650 mg PO Q6 PRN PRN Reason: Fever >100.4 F Acetaminophen (Tylenol 325mg/10.15ml Ud) 975 mg PO Q8 PRN PRN Reason: Pain, moderate (4-7) Ascorbic Acid (Vitamin C 500 Mg Tab) 500 mg PO BID [facility] Last Admin: 03/07/18 08:53 Dose: 500 mg Atorvastatin Calcium (Lipitor) 10 mg PO HS [facility] Last Admin: 03/06/18 21:31 Dose: 10 mg Cholecalciferol (Vitamin D) 1,000 intlu PO DAILY [facility] Last Admin: 03/07/18 08:53 Dose: 1,000 intlu Dextrose (Dextrose 50% Inj) 0 ml IV STAT PRN; Protocol PRN Reason: Hypoglycemia Protocol Dextrose (Glutose 15) 0 gm PO ONCE PRN; Protocol PRN Reason: Hypoglycemia Protocol Digoxin (Digoxin) 0.125 mg PO DAILY [facility] Last Admin: 03/02/18 10:51 Dose: Not Given Dimethicone (Proshield Plus Skin Protectant) 1 applic TOP Q8 PRN PRN Reason: Rash Last Admin: 03/03/18 09:53 Dose: 1 applic Emollient Ointment (Vaseline Oint) 1 pkt TOP BID [facility] Last Admin: 03/07/18 08:42 Dose: 1 pkt Epoetin Rolo (Procrit) 40,000 unit SC WED [facility] Furosemide (Lasix) 60 mg IV Q12H [facility] Last Admin: 03/07/18 06:15 Dose: 60 mg Glucagon (Glucagen Diagnostic Kit) 0 mg IM STAT PRN; Protocol PRN Reason: Hypoglycemia Protocol Heparin Sodium (Porcine) (Heparin) 5,000 units SC Q8 [facility]; Protocol Last Admin: 03/07/18 08:42 Dose: 5,000 units Hydrocortisone Sodium Succinate (Solu-Cortef) 50 mg IV Q12H [facility] Last Admin: 03/07/18 08:49 Dose: 50 mg Ceftaroline Fosamil 300 mg/ (Sodium Chloride) 100 mls @ 100 mls/hr IVPB Q12 [facility]; Protocol Last Admin: 03/06/18 21:34 Dose: 100 mls/hr Fluconazole (Diflucan Iv 100 Mg/50 Ml Ns) 50 mls @ 50 mls/hr IVPB DAILY [facility]; Protocol Last Admin: 03/07/18 08:54 Dose: 50 mls/hr Insulin Detemir (Levemir) 8 units SC HS [facility] Last Admin: 03/06/18 21:36 Dose: 8 units Insulin Human Regular (Humulin R) 0 units SC ACCU-CHECK [facility]; Protocol Last Admin: 03/07/18 06:15 Dose: 4 unit Ipratropium Alta (Atrovent) 0.5 mg IH RQID [facility] Last Admin: 03/07/18 07:18 Dose: 0.5 mg Lactobacillus Acidophilus (Bacid Acidophilus) 1 cap PO BID [facility] Last Admin: 03/07/18 09:12 Dose: Not Given Levalbuterol HCl (Xopenex) 0.63 mg INH RQID [facility] Last Admin: 03/07/18 07:18 Dose: 0.63 mg Levothyroxine Sodium (Synthroid) 40 mcg IVP DAILY@0630 [facility] Last Admin: 03/07/18 06:15 Dose: 40 mcg Mirtazapine (Remeron) 7.5 mg PO HS [facility] Last Admin: 03/06/18 21:31 Dose: 7.5 mg Nystatin (Nystop Topical Powder) 1 applic TOP TID [facility] Last Admin: 03/06/18 16:18 Dose: 1 appl Pantoprazole Sodium (Protonix Inj) 40 mg IVP DAILY [facility] Last Admin: 03/07/18 08:39 Dose: 40 mg Thiamine HCl (Vitamin B1 Inj) 100 mg IM DAILY [facility] Last Admin: 03/07/18 08:45 Dose: 100 mg - Labs Labs: 03/07/18 04:20 03/07/18 04:20 PT 11.2 Seconds (9.8-13.1) 03/06/18 04:30 INR 1.0 03/06/18 04:30 APTT 41.3 Seconds (25.6-37.1) H 03/06/18 04:30 - Constitutional Appears: No Acute Distress - Head Exam Head Exam: NORMAL INSPECTION - Eye Exam Eye Exam: Normal appearance - ENT Exam ENT Exam: Mucous Membranes Moist Additional comments: Seeping ulcer on left cheek - Neck Exam Neck Exam: Normal Inspection Additional comments: No JVD - Respiratory Exam Respiratory Exam: Decreased Breath Sounds, Clear to Ausculation Bilateral, Rales, Rhonchi. absent: Wheezes - Cardiovascular Exam Cardiovascular Exam: Tachycardia, +S1, +S2. absent: Murmur - GI/Abdominal Exam GI & Abdominal Exam: Distended, Soft, Tenderness, Normal Bowel Sounds - Extremities Exam Extremities Exam: Normal Inspection. absent: Pedal Edema Additional comments: edematous upper extremities bilaterally, Subclavian (Right) - Neurological Exam Neurological Exam: Alert, Awake - Psychiatric Exam Psychiatric exam: Normal Affect - Skin Skin Exam: Normal Color Assessment and Plan - Assessment and Plan (Free Text) Assessment: 77 y/o woman w/ pmh of HTN, CAD s/p CABG, atrial fibrillation (not on anticoagulation due to thrombocytopenia), B cell lymphoma, MDS s/p chemo with pancytopenia , SIADH was admitted to [facility] for evaluation and treatment of bilateral pneumonia and possible c.diff. Pt went into respiratory failure and was placed on mechanical ventilation on 03/02. Currently on Levophed for BP stabilization. Pt is DNR as discussed with family today. Plan: Respiratory Failure - Orotracheal intubation on MV. - Settings as ordered. - Pulmonology, Dr. Vazquez, recommendations appreciated - Patient is more alert today, may attempt weaning trials Hypotension - Improved - Pressors discontinued yesterday - Stable in 120's systolic Sepsis - Afebrile, Tachycardic in 100's, Leukocytosis 20.1; Lactic Acid 1.6 - X-Ray (03/01): Limited left pleural effusion stable. Small right pleural effusion not excluded. Borderline pulmonary vascular congestion. -Cxray (03/06): Improvement seen in R pleural effusion. - Wound CX (Sacral Decubitus Ulcer): Growing MDR Klebsiella Pneu (Sensitive to Gentamycin) & Vanco Resistant Enterococcus Faecium (sensitive to Zyvox) - Trach Asp Cx: Yeast species - S/P Meropenem 1gm IV Q8 x 1 day - C/W Ceftaroline 3000mg q12 (Day 5) - C/W Gentamycin 60mg/50cc q24hr (Day 4) - Started Zyvox 600mg in D5W today (Day 3) and Flucanazole 100mg daily (Day 3) - C/w Hydrocortison, Vitamin C, and Thiamine - ID Dr. Pelletier on board Decubitus ulcer - Wound care on case, reconsulted for wound care of right cheek - Re-Positioning every 2 hour Hyperglycemia - No hx of DM - Likely secondary to IV Steroids. Hydrocortisone changed to q12 - Serum glucose improved but still elevated. Levemir increased to 8units HS. B-cell lymphoma / MDS (myelodysplastic syndrome) - On chemo - F/u Hematology/oncology consult Dr De Dios - Continue with Procrit Chronic A-fib - All antihypertensive held due to patients low blood pressure - no anticoagulation due to thrombocytopenia (Stable) COPD chronic - c/w solumedrol 50 mg IV Q8H - c/w Atrovent and Xopenex - Shena Jaquez - Incentive [place] Hypothyroid - Chronic, controlled - C/W Levothyroxine 75mcg daily CKD stage III - stable Hearing loss - possible medication induced or age related - out pt follow up DVT PPX - SCD for now, Hx of thrombocytopenia <Malu Berrios - Last Filed: 03/07/18 18:38> Objective - Vital Signs/Intake and Output Vital Signs (last 24 hours): Temp Pulse Resp BP Pulse Ox 96.1 F L 95 H 23 129/65 100 03/07/18 16:00 03/07/18 16:00 03/07/18 16:00 03/07/18 16:00 03/07/18 16:00 Intake and Output: 03/07/18 03/07/18 06:59 18:59 Intake Total 1075 1260 Output Total 330 225 Balance 745 1035 - Medications Medications: Current Medications Acetaminophen (Tylenol 325mg Tab) 650 mg PO Q6 PRN PRN Reason: Fever >100.4 F Acetaminophen (Tylenol 325mg/10.15ml Ud) 975 mg PO Q8 PRN PRN Reason: Pain, moderate (4-7) Albumin Human (Albumin Human 5% (12.5 Gm/250 Ml)) 12.5 gm IV Q12 [facility] Last Admin: 03/07/18 12:49 Dose: 12.5 gm Ascorbic Acid (Vitamin C 500 Mg Tab) 500 mg PO BID [facility] Last Admin: 03/07/18 16:02 Dose: 500 mg Atorvastatin Calcium (Lipitor) 10 mg PO HS [facility] Last Admin: 03/06/18 21:31 Dose: 10 mg Cholecalciferol (Vitamin D) 1,000 intlu PO DAILY [facility] Last Admin: 03/07/18 08:53 Dose: 1,000 intlu Dextrose (Dextrose 50% Inj) 0 ml IV STAT PRN; Protocol PRN Reason: Hypoglycemia Protocol Dextrose (Glutose 15) 0 gm PO ONCE PRN; Protocol PRN Reason: Hypoglycemia Protocol Digoxin (Digoxin) 0.125 mg PO DAILY [facility] Last Admin: 03/02/18 10:51 Dose: Not Given Dimethicone (Proshield Plus Skin Protectant) 1 applic TOP Q8 PRN PRN Reason: Rash Last Admin: 03/07/18 14:11 Dose: 1 applic Emollient Ointment (Vaseline Oint) 1 pkt TOP BID [facility] Last Admin: 03/07/18 16:00 Dose: 1 pkt Epoetin Rolo (Procrit) 40,000 unit SC WED [facility] Last Admin: 03/07/18 10:16 Dose: 40,000 unit Furosemide (Lasix) 60 mg IV Q12H [facility] Last Admin: 03/07/18 14:06 Dose: 60 mg Glucagon (Glucagen Diagnostic Kit) 0 mg IM STAT PRN; Protocol PRN Reason: Hypoglycemia Protocol Heparin Sodium (Porcine) (Heparin) 5,000 units SC Q8 [facility]; Protocol Last Admin: 03/07/18 08:42 Dose: 5,000 units Fluconazole (Diflucan Iv 100 Mg/50 Ml Ns) 50 mls @ 50 mls/hr IVPB DAILY [facility]; Protocol Last Admin: 03/07/18 08:54 Dose: 50 mls/hr Ceftaroline Fosamil 200 mg/ (Sodium Chloride) 250 mls @ 250 mls/hr IVPB Q12 [facility]; Protocol Insulin Human Regular (Humulin R) 0 units SC ACCU-CHECK [facility]; Protocol Last Admin: 03/07/18 16:35 Dose: Not Given Ipratropium Alta (Atrovent) 0.5 mg IH RQID [facility] Last Admin: 03/07/18 15:17 Dose: 0.5 mg Lactobacillus Acidophilus (Bacid Acidophilus) 1 cap PO BID [facility] Last Admin: 03/07/18 16:02 Dose: 1 cap Levalbuterol HCl (Xopenex) 0.63 mg INH RQID [facility] Last Admin: 03/07/18 15:17 Dose: 0.63 mg Levothyroxine Sodium (Synthroid) 40 mcg IVP DAILY@0630 [facility] Last Admin: 03/07/18 06:15 Dose: 40 mcg Mirtazapine (Remeron) 7.5 mg PO HS [facility] Last Admin: 03/06/18 21:31 Dose: 7.5 mg Nystatin (Nystop Topical Powder) 1 applic TOP TID [facility] Last Admin: 03/07/18 16:00 Dose: 1 appl Pantoprazole Sodium (Protonix Inj) 40 mg IVP DAILY [facility] Last Admin: 03/07/18 08:39 Dose: 40 mg - Labs Labs: 03/07/18 15:16 03/07/18 04:20 PT 11.2 Seconds (9.8-13.1) 03/06/18 04:30 INR 1.0 03/06/18 04:30 APTT 41.3 Seconds (25.6-37.1) H 03/06/18 04:30 Attending/Attestation - Attestation I have personally seen and examined this patient.: Yes I have fully participated in the care of the patient.: Yes I have reviewed all pertinent clinical information, including history, physical exam and plan: Yes Notes (Text): Additional Note : Vomiting and Abd Tenderness - Pt vomited. On examination - abdomen is tender. - Tube feeding held . - CT of the abdomen ordered. -Noted liquid BM in rectal tube. Stool C diff negative Thrombocytopenia - Zyvox dc due to thrombocytopenia 03/07/18 18:37
[2018-03-07] MEDS: Epoetin Alfa 40000 UNIT/ml Inj SC SCH (10:16)
[2018-03-07] MEDS ORDERED: Digoxin 500 mcg/2ml (0.5 mg/2ml) Inj IVP ONE (10:31)
--- NOTE | 2018-03-07 10:45 | CP.CCUPN ---
CCU Subjective - Physician Review Subjective (Free Text): Awake and follows commands, had one episode of projectile vomiting overnight, denies any abdominal discomfort during examination, OGT feeds noted at 35 ml/hr. Breathing 22 on SIMV 14, PS 15, SPO2 99% on 35% oxygen. She is negative 0.59L fluid balance over the last 24H, normotensive since discontinuation of vasopressors yesterday. Other vitals and I/O's reviewed. No fever spikes last 24H. ROS: No other pertinent negs or positives on 10+ system review. PMSFH: All other Nursing and physician documentation reviewed to date; no new pertinent info noted relevant to current medical problems. EXAM- HEENT: no icterus, no gaze preference, Pupils 3 mm and reactive NECK: No JVD visible, supple, carotids equal upstroke bilat/no bruit, trach stoma intact CHEST: decreased BS at the bases, no wheezes audible; R upper chest allan-cath intact, no tenderness or erythema. HEART: irregular, distant, tachy S1S2, no rubs ABD: softly and nontender, distended with epigastric tympany, no guarding, no organomegaly, BS hypoactive. EXT: ++++ LE edema, no calf tenderness or palpable cords, distal pulses intact and symmetrical. Well-healed bilat TKR scars. NEURO: moves all extremities spontaneously. SKIN: no rashes, warm and dry LABS: WBC= 20.9 HGB= 8.9 PLTs= 112K 7.29/29/137 Na= 132 K= 3.5 BT=785 HCO3= 16 BUN/Cr= 35/2.1 BS= 247 CXR: ETT above isaiah, bilateral basilar congestive interstitial changes, no gross consolidation (my interp). IMPRESSION / MAJOR PROBLEMS NOW: 1. Acute Hypoxic Resp Failure 2. Pulm edema, r/o underlying Basilar Pneumonia 3. Acute on Chronic CKD 4. Thrombocytopenia, r/o Drug Induced. 5. Chronic A Fib with RVR (no AC-low plts) 6. Uncontrolled DM II 7. B-Cell Lymphoma and MDS, was on Chemotx. PLAN: 1. Day #6 on MV, lower the frequency of SIMV / PS levels as tolerated. Latest sputum cx shows Yeast, has been on Diflucan; would repeat Sputum Cxs. 2. Wean or discontinue steroids. Unclear if in use for COPD versus on for previous shock state. 3. Hold OGT feeds now, place OGT to LIS for the next several hours. Check repeat portable Xray to assess for any resolution of gastric air distention. If still apparent, consider Reglan/ Emycin to promote gastric motility. 4. Resume Metoprolol if BP allows. More Digoxin for VR control if HR above 100. On IV L-thyroxine, check TSH and free T4 levels. 5. Consider more albumin IV therapy followed immediately by Lasix dosing to promote mobilization of 3rd space fluid accumulation. 6. Zyvox on hold as per ID guidance due to low platelets ( despite recent steroid therapy). 7. Will hold Heparin SQ for now as well given low plts, continue SCDs bilaterally. 8. Convert Thiamine to IV or enteral admin. 9. Preceding Shipping And Receiving Material Handler states family is refusing acute dialysis; and DNR orders placed. Time spent with this patient did not overlap with any other provider's medical or critical care time. Additionally the code selected for the services rendered in this note includes the time spent: talking to the patients family, associated physicians and reviewing hospital data/results not listed here which extended to a total of 40 minutes of critical care.
--- NOTE | 2018-03-07 11:23 | CP.PCM.PN ---
Subjective - Date & Time of Evaluation Date of Evaluation: 03/07/18 Time of Evaluation: :18 - Subjective Subjective: Seen in ICU on rounds. Case discussed with therapy coordinator. Remains mechanically ventilated on SIMV/PS. Remains OFF pressor support, maintains systolic BP 120-140. SpO2 remains at 100%, EtCO2 16mm. Still acidotic (metabolic) with compensatory tachypnea. Continues to be more awake than previously. Chest x-ray shows vascular congestive pattern w/o any areas of consolidation. Urine output has improved nicely. Zyvoxx on hold because of decreasing platelets. Hgb is stable, WBC 21. Apparently had an episode of vomiting earlier today, OGT feeding stopped and placed on LIS. No dullness to percussion of the anterior chest, no subcut emphysema. Neck is suppls and trachea midline. ETT is in the right side of her mouth. Thin, scant yellow/small secretions when suctioned. Breath sounds are diminished but present bilaterally. More bronchial in character in the LLL today than yesterday. Scattered rhonchi and medium rales in dependant zones. No audible wheezes appreciated. Heart sounds are distant, mildly tachycardic around 100BPM, looks like a fib on monitor. Abdomen appears slightly distended, soft and non-tender with hypoactive bowel so unds. Dependaqnt edema ++ w/o weeping, no cyanosis or jaundice. Gradual weaning of vent support. D/C corticosteroids and IM thiamine. Diuresis under way with albumin FB furosemide. On fluconazole/ceftaroline at the present time. Zyvoxx and heparin placed on hold. OGT to suction, follow up CXR with abdomen. ICU time 45 min. Objective - Vital Signs/Intake and Output Vital Signs (last 24 hours): Temp Pulse Resp BP Pulse Ox 97.3 F L 106 H 22 129/69 100 03/07/18 08:00 03/07/18 10:00 03/07/18 10:00 03/07/18 10:00 03/07/18 10:00 Intake and Output: 03/06/18 03/07/18 23:59 11:59 Intake Total 913 1255 Output Total 260 555 Balance 653 700 - Medications Medications: Current Medications Acetaminophen (Tylenol 325mg Tab) 650 mg PO Q6 PRN PRN Reason: Fever >100.4 F Acetaminophen (Tylenol 325mg/10.15ml Ud) 975 mg PO Q8 PRN PRN Reason: Pain, moderate (4-7) Albumin Human (Albumin Human 5% (12.5 Gm/250 Ml)) 12.5 gm IV Q12 [facility] Ascorbic Acid (Vitamin C 500 Mg Tab) 500 mg PO BID [facility] Last Admin: 03/07/18 08:53 Dose: 500 mg Atorvastatin Calcium (Lipitor) 10 mg PO HS [facility] Last Admin: 03/06/18 21:31 Dose: 10 mg Cholecalciferol (Vitamin D) 1,000 intlu PO DAILY [facility] Last Admin: 03/07/18 08:53 Dose: 1,000 intlu Dextrose (Dextrose 50% Inj) 0 ml IV STAT PRN; Protocol PRN Reason: Hypoglycemia Protocol Dextrose (Glutose 15) 0 gm PO ONCE PRN; Protocol PRN Reason: Hypoglycemia Protocol Digoxin (Digoxin) 0.125 mg PO DAILY [facility] Last Admin: 03/02/18 10:51 Dose: Not Given Dimethicone (Proshield Plus Skin Protectant) 1 applic TOP Q8 PRN PRN Reason: Rash Last Admin: 03/03/18 09:53 Dose: 1 applic Emollient Ointment (Vaseline Oint) 1 pkt TOP BID [facility] Last Admin: 03/07/18 08:42 Dose: 1 pkt Epoetin Rolo (Procrit) 40,000 unit SC WED [facility] Last Admin: 03/07/18 10:16 Dose: 40,000 unit Furosemide (Lasix) 60 mg IV Q12H [facility] Last Admin: 03/07/18 06:15 Dose: 60 mg Glucagon (Glucagen Diagnostic Kit) 0 mg IM STAT PRN; Protocol PRN Reason: Hypoglycemia Protocol Heparin Sodium (Porcine) (Heparin) 5,000 units SC Q8 [facility]; Protocol Last Admin: 03/07/18 08:42 Dose: 5,000 units Ceftaroline Fosamil 300 mg/ (Sodium Chloride) 100 mls @ 100 mls/hr IVPB Q12 [facility]; Protocol Last Admin: 03/07/18 10:18 Dose: 100 mls/hr Fluconazole (Diflucan Iv 100 Mg/50 Ml Ns) 50 mls @ 50 mls/hr IVPB DAILY [facility]; Protocol Last Admin: 03/07/18 08:54 Dose: 50 mls/hr Insulin Detemir (Levemir) 8 units SC [facility] Last Admin: 03/06/18 21:36 Dose: 8 units Insulin Human Regular (Humulin R) 0 units SC ACCU-CHECK [facility]; Protocol Last Admin: 03/07/18 06:15 Dose: 4 unit Ipratropium [place] (Atrovent) 0.5 mg IH RQID [facility] Last Admin: 03/07/18 11:00 Dose: 0.5 mg Lactobacillus Acidophilus (Bacid Acidophilus) 1 cap PO BID [facility] Last Admin: 03/07/18 09:12 Dose: Not Given Levalbuterol HCl (Xopenex) 0.63 mg INH RQID [facility] Last Admin: 03/07/18 11:00 Dose: 0.63 mg Levothyroxine Sodium (Synthroid) 40 mcg IVP DAILY@0630 [facility] Last Admin: 03/07/18 06:15 Dose: 40 mcg Mirtazapine (Remeron) 7.5 mg PO [facility] Last Admin: 03/06/18 21:31 Dose: 7.5 mg Nystatin (Nystop Topical Powder) 1 applic TOP TID [facility] Last Admin: 03/07/18 10:17 Dose: 1 appl Pantoprazole Sodium (Protonix Inj) 40 mg IVP DAILY [facility] Last Admin: 03/07/18 08:39 Dose: 40 mg - Labs Labs: 03/07/18 04:20 03/07/18 04:20 PT 11.2 Seconds (9.8-13.1) 03/06/18 04:30 INR 1.0 03/06/18 04:30 APTT 41.3 Seconds (25.6-37.1) H 03/06/18 04:30 Assessment and Plan (1) Bronchopneumonia Status: Acute (2) Sacral decubitus ulcer Status: Acute (3) Toxic metabolic encephalopathy Status: Acute (4) B-cell lymphoma Status: Chronic (5) COPD (chronic obstructive pulmonary disease) Status: Chronic
[2018-03-07 11:41] VITALS: PULSE 109
--- NOTE | 2018-03-07 13:16 | RAD ---
Date of service: 03/07/2018 HISTORY: resp failure COMPARISON: 03/06/2018 FINDINGS: Stable position of endotracheal tube terminating in the mid trachea. The nasogastric tube terminates in the stomach. The right central venous catheter terminates at the cavoatrial junction. LUNGS: There is worsening pulmonary venous congestion. PLEURA: No large pleural effusions or pneumothorax. CARDIOVASCULAR: Persistent moderate cardiomegaly. No aortic atherosclerotic calcification present. Status post CABG with OSSEOUS STRUCTURES: Within normal limits for the patient's age. VISUALIZED UPPER ABDOMEN: Normal. OTHER FINDINGS: None. IMPRESSION: Worsening pulmonary venous congestion. Stable position of support line and tubes.
[2018-03-07] MEDS: Proshield Plus GEL TOP PRN (14:11)
[2018-03-07] MEDS ORDERED: Iohexol 240 (50 ml) PO ONE (14:31)
[2018-03-07 15:36] LABS: BASO % 0.2 % (0.0-2.0); HEMOGLOBIN 8.6 g/dL (12.0-16.0); LYMPH # 0.6 K/uL (1.0-4.3); LYMPH % 2.9 % (20.0-40.0); MEAN CELL VOLUME 86.7 fl (81.0-99.0); MEAN CORPUSCULAR HEMOGLOBIN 27.5 pg (27.0-31.0); MEAN CORPUSCULAR HGB CONC 31.7 g/dL (33.0-37.0); MEAN PLATELET VOLUME 10.2 fl (7.2-11.7); MONO # 0.5 K/uL (0.0-0.8); MONO % 2.4 % (0.0-10.0); NEUT % 94.5 % (50.0-75.0); RBC 3.14 Mil/uL (3.80-5.20); WHITE BLOOD COUNT 20.1 K/uL (4.8-10.8)
--- NOTE | 2018-03-07 15:47 | CP.PCM.PN ---
Subjective - Date & Time of Evaluation Date of Evaluation: 03/07/18 Time of Evaluation: 15:29 - Subjective Subjective: I D NOTE PQANDRY HAS RESPONDED TO VERBAL STIMULI AND RECOGNIZED HER SON AND ME WHILE WE WERE IN THE ROOM. SHE IS STILL ON IMV. PLATELERTSV HAVE DECREASED AND HAVE HELD ZYVOX FOR PRESENT TIME. AWAITING FOLLOWUP CBC Objective - Vital Signs/Intake and Output Vital Signs (last 24 hours): Temp Pulse Resp BP Pulse Ox 97.4 F L 97 H 12 121/57 L 100 03/07/18 12:00 03/07/18 14:00 03/07/18 14:00 03/07/18 14:06 03/07/18 14:00 Intake and Output: 03/07/18 03/07/18 06:59 18:59 Intake Total 1075 460 Output Total 330 225 Balance 745 235 - Medications Medications: Current Medications Acetaminophen (Tylenol 325mg Tab) 650 mg PO Q6 PRN PRN Reason: Fever >100.4 F Acetaminophen (Tylenol 325mg/10.15ml Ud) 975 mg PO Q8 PRN PRN Reason: Pain, moderate (4-7) Albumin Human (Albumin Human 5% (12.5 Gm/250 Ml)) 12.5 gm IV Q12 [facility] Last Admin: 03/07/18 12:49 Dose: 12.5 gm Ascorbic Acid (Vitamin C 500 Mg Tab) 500 mg PO BID [facility] Last Admin: 03/07/18 08:53 Dose: 500 mg Atorvastatin Calcium (Lipitor) 10 mg PO HS [facility] Last Admin: 03/06/18 21:31 Dose: 10 mg Cholecalciferol (Vitamin D) 1,000 intlu PO DAILY [facility] Last Admin: 03/07/18 08:53 Dose: 1,000 intlu Dextrose (Dextrose 50% Inj) 0 ml IV STAT PRN; Protocol PRN Reason: Hypoglycemia Protocol Dextrose (Glutose 15) 0 gm PO ONCE PRN; Protocol PRN Reason: Hypoglycemia Protocol Digoxin (Digoxin) 0.125 mg PO DAILY [facility] Last Admin: 03/02/18 10:51 Dose: Not Given Dimethicone (Proshield Plus Skin Protectant) 1 applic TOP Q8 PRN PRN Reason: Rash Last Admin: 03/07/18 14:11 Dose: 1 applic Emollient Ointment (Vaseline Oint) 1 pkt TOP BID [facility] Last Admin: 03/07/18 08:42 Dose: 1 pkt Epoetin Rolo (Procrit) 40,000 unit SC WED [facility] Last Admin: 03/07/18 10:16 Dose: 40,000 unit Furosemide (Lasix) 60 mg IV Q12H [facility] Last Admin: 03/07/18 14:06 Dose: 60 mg Glucagon (Glucagen Diagnostic Kit) 0 mg IM STAT PRN; Protocol PRN Reason: Hypoglycemia Protocol Heparin Sodium (Porcine) (Heparin) 5,000 units SC Q8 [facility]; Protocol Last Admin: 03/07/18 08:42 Dose: 5,000 units Ceftaroline Fosamil 300 mg/ (Sodium Chloride) 100 mls @ 100 mls/hr IVPB Q12 [facility]; Protocol Last Admin: 03/07/18 10:18 Dose: 100 mls/hr Fluconazole (Diflucan Iv 100 Mg/50 Ml Ns) 50 mls @ 50 mls/hr IVPB DAILY [facility]; Protocol Last Admin: 03/07/18 08:54 Dose: 50 mls/hr Insulin Detemir (Levemir) 8 units SC HS [facility] Last Admin: 03/06/18 21:36 Dose: 8 units Insulin Human Regular (Humulin R) 0 units SC ACCU-CHECK [facility]; Protocol Last Admin: 03/07/18 11:35 Dose: Not Given Ipratropium [place] (Atrovent) 0.5 mg IH RQID [facility] Last Admin: 03/07/18 15:17 Dose: 0.5 mg Lactobacillus Acidophilus (Bacid Acidophilus) 1 cap PO BID [facility] Last Admin: 03/07/18 09:12 Dose: Not Given Levalbuterol HCl (Xopenex) 0.63 mg INH RQID [facility] Last Admin: 03/07/18 15:17 Dose: 0.63 mg Levothyroxine Sodium (Synthroid) 40 mcg IVP DAILY@0630 [facility] Last Admin: 03/07/18 06:15 Dose: 40 mcg Mirtazapine (Remeron) 7.5 mg PO HS [facility] Last Admin: 03/06/18 21:31 Dose: 7.5 mg Nystatin (Nystop Topical Powder) 1 applic TOP TID [facility] Last Admin: 03/07/18 12:51 Dose: 1 appl Pantoprazole Sodium (Protonix Inj) 40 mg IVP DAILY [facility] Last Admin: 03/07/18 08:39 Dose: 40 mg - Labs Labs: 03/07/18 04:20 03/07/18 04:20 PT 11.2 Seconds (9.8-13.1) 03/06/18 04:30 INR 1.0 03/06/18 04:30 APTT 41.3 Seconds (25.6-37.1) H 03/06/18 04:30
--- NOTE | 2018-03-07 18:16 | CT ---
Date of service: 03/07/2018 PROCEDURE: CT Abdomen and Pelvis with contrast HISTORY: Abdominal tenderness COMPARISON: 12/12/2017. TECHNIQUE: CT scan of the abdomen and pelvis was performed without administration of intravenous contrast. Oral contrast was administered. Coronal and sagittal reformatted images were obtained. Radiation dose: Total exam DLP = 826.61 mGy-cm. This CT exam was performed using one or more of the following dose reduction techniques: Automated exposure control, adjustment of the mA and/or kV according to patient size, and/or use of iterative reconstruction technique. FINDINGS: LOWER THORAX: There are bilateral large pleural effusions with compressive atelectasis of the lower lobes. There is mild cardiomegaly. LIVER: Normal in size. No gross lesion or ductal dilatation. GALLBLADDER AND BILE DUCTS: Contracted. Small gallstones. PANCREAS: Mild diffuse atrophy. No gross lesion or ductal dilatation. SPLEEN: Normal in size. ADRENALS: No discrete nodule. KIDNEYS AND URETERS: Normal in size without hydronephrosis or nephrolithiasis. VASCULATURE: No aortic aneurysm. There are advanced aortic atherosclerotic calcifications. BOWEL: The nasogastric tube terminates in the stomach. The stomach is normal in appearance. The small bowel loops are normal in caliber. The colon is decompressed. A rectal bulb remains in place. APPENDIX: No inflammatory changes in the right lower quadrant. PERITONEUM: There is large abdominal and pelvic ascites. No free air. LYMPH NODES: No enlarged lymph nodes. BLADDER: Well distended and normal in appearance. REPRODUCTIVE: The uterus is normal in size. BONES: No acute fracture. Within normal limits for the patient's age. OTHER FINDINGS: There is severe diffuse anasarca. IMPRESSION: Large abdominal and pelvic ascites and severe diffuse anasarca. Large bilateral pleural effusions.
[2018-03-07] MEDS: SODIUM CHLORIDE 0.9% IVPB SCH (21:18)
[2018-03-07] MEDS: CEFTAROLINE IVPB SCH (21:18)
[2018-03-08] MEDS ORDERED: Albuterol-Ipratrop 3 mg / 0.5 (3 ml) UD INH STA (01:09)
[2018-03-08 04:41] LABS: ABG ALLEN TEST YES; ARTERIAL BLOOD GAS HCO3 17.9 mmol/L (21-28); ARTERIAL BLOOD GAS HEMOGLOBIN 8.6 g/dL (11.7-17.4); ARTERIAL BLOOD GAS O2 CONTENT 12.1 ML/dL (15-23); ARTERIAL BLOOD GAS PCO2 31 mm/Hg (35-45); ARTERIAL BLOOD GAS PH 7.32 (7.35-7.45); ARTERIAL BLOOD GAS PO2 138 mm/Hg (80-100)
[2018-03-08] MEDS: Levothyroxine 100 mcg (0.1 mg) Inj IVP SCH (05:31)
[2018-03-08 05:38] LABS: HEMOGLOBIN 8.6 g/dL (12.0-16.0); MEAN CELL VOLUME 87.7 fl (81.0-99.0); MEAN CORPUSCULAR HEMOGLOBIN 27.5 pg (27.0-31.0); MEAN CORPUSCULAR HGB CONC 31.4 g/dL (33.0-37.0); RBC 3.1 Mil/uL (3.80-5.20); RED CELL DISTRIBUTION WIDTH 18.7 % (11.5-14.5); WHITE BLOOD COUNT 15.7 K/uL (4.8-10.8)
[2018-03-08 06:30] LABS: ALB/GLOB RATIO 1.2 (1.0-2.1); ALBUMIN 2.1 g/dL (3.5-5.0); CALCIUM 8.1 mg/dL (8.4-10.2)
[2018-03-08] MEDS: Ipratropium 0.02% Inhal Soln (0.5 mg/2.5 ml) UD IH SCH ×4 (08:01→19:20)
[2018-03-08] MEDS: Levalbuterol 0.63 MG/3 ML Inhal Soln UD INH SCH ×4 (08:01→19:20)
--- NOTE | 2018-03-08 08:30 | CP.PCM.PN ---
Subjective - Date & Time of Evaluation Date of Evaluation: 03/08/18 Time of Evaluation: 08:00 - Subjective Subjective: Pt seen and examined this morning. Unarousable to voice but grimaces and eyes open to painful stimulation. No signs of agitation. Intubated Objective - Vital Signs/Intake and Output Vital Signs (last 24 hours): Temp Pulse Resp BP Pulse Ox 97.4 F L 69 14 107/59 L 95 03/08/18 08:00 03/08/18 08:00 03/08/18 08:00 03/08/18 08:00 03/08/18 08:00 Intake and Output: 03/08/18 03/08/18 06:59 18:59 Intake Total 350 Output Total 600 Balance -250 - Medications Medications: Current Medications Acetaminophen (Tylenol 325mg Tab) 650 mg PO Q6 PRN PRN Reason: Fever >100.4 F Acetaminophen (Tylenol 325mg/10.15ml Ud) 975 mg PO Q8 PRN PRN Reason: Pain, moderate (4-7) Albumin Human (Albumin Human 5% (12.5 Gm/250 Ml)) 12.5 gm IV Q12 [facility] Last Admin: 03/07/18 21:13 Dose: 12.5 gm Ascorbic Acid (Vitamin C 500 Mg Tab) 500 mg PO BID [facility] Last Admin: 03/07/18 16:02 Dose: 500 mg Atorvastatin Calcium (Lipitor) 10 mg PO HS [facility] Last Admin: 03/07/18 21:15 Dose: 10 mg Cholecalciferol (Vitamin D) 1,000 intlu PO DAILY [facility] Last Admin: 03/07/18 08:53 Dose: 1,000 intlu Dextrose (Dextrose 50% Inj) 0 ml IV STAT PRN; Protocol PRN Reason: Hypoglycemia Protocol Dextrose (Glutose 15) 0 gm PO ONCE PRN; Protocol PRN Reason: Hypoglycemia Protocol Digoxin (Digoxin) 0.125 mg PO DAILY [facility] Last Admin: 03/02/18 10:51 Dose: Not Given Dimethicone (Proshield Plus Skin Protectant) 1 applic TOP Q8 PRN PRN Reason: Rash Last Admin: 03/07/18 14:11 Dose: 1 applic Emollient Ointment (Vaseline Oint) 1 pkt TOP BID [facility] Last Admin: 03/07/18 16:00 Dose: 1 pkt Epoetin Rolo (Procrit) 40,000 unit SC WED [facility] Last Admin: 03/07/18 10:16 Dose: 40,000 unit Furosemide (Lasix) 60 mg IV Q12H [facility] Last Admin: 03/08/18 01:30 Dose: Not Given Glucagon (Glucagen Diagnostic Kit) 0 mg IM STAT PRN; Protocol PRN Reason: Hypoglycemia Protocol Heparin Sodium (Porcine) (Heparin) 5,000 units SC Q8 [facility]; Protocol Last Admin: 03/07/18 08:42 Dose: 5,000 units Fluconazole (Diflucan Iv 100 Mg/50 Ml Ns) 50 mls @ 50 mls/hr IVPB DAILY [facility]; Protocol Last Admin: 03/07/18 08:54 Dose: 50 mls/hr Ceftaroline Fosamil 200 mg/ (Sodium Chloride) 250 mls @ 250 mls/hr IVPB Q12 [facility]; Protocol Last Admin: 03/07/18 21:18 Dose: 250 mls/hr Insulin Human Regular (Humulin R) 0 units SC ACCU-CHECK [facility]; Protocol Last Admin: 03/07/18 22:16 Dose: Not Given Ipratropium [place] (Atrovent) 0.5 mg IH RQID [facility] Last Admin: 03/08/18 08:01 Dose: 0.5 mg Lactobacillus Acidophilus (Bacid Acidophilus) 1 cap PO BID [facility] Last Admin: 03/07/18 16:02 Dose: 1 cap Levalbuterol HCl (Xopenex) 0.63 mg INH RQID [facility] Last Admin: 03/08/18 08:01 Dose: 0.63 mg Levothyroxine Sodium (Synthroid) 40 mcg IVP DAILY@0630 [facility] Last Admin: 03/08/18 05:31 Dose: 40 mcg Mirtazapine (Remeron) 7.5 mg PO HS [facility] Last Admin: 03/07/18 21:15 Dose: 7.5 mg Nystatin (Nystop Topical Powder) 1 applic TOP TID [facility] Last Admin: 03/07/18 16:00 Dose: 1 appl Pantoprazole Sodium (Protonix Inj) 40 mg IVP DAILY [facility] Last Admin: 03/07/18 08:39 Dose: 40 mg - Labs Labs: 03/08/18 05:00 03/08/18 05:00 PT 11.2 Seconds (9.8-13.1) 03/06/18 04:30 INR 1.0 03/06/18 04:30 APTT 41.3 Seconds (25.6-37.1) H 03/06/18 04:30 - Constitutional Appears: No Acute Distress - Head Exam Head Exam: NORMAL INSPECTION - Eye Exam Eye Exam: Normal appearance. absent: Nystagmus, PERRL - ENT Exam ENT Exam: Mucous Membranes Moist - Neck Exam Neck Exam: Full ROM Additional comments: Subclavian right side - Respiratory Exam Respiratory Exam: Decreased Breath Sounds, Rales (scattered), Rhonchi. absent: Accessory Muscle Use, Respiratory Distress - Cardiovascular Exam Cardiovascular Exam: REGULAR RHYTHM, +S1, +S2. absent: Murmur - GI/Abdominal Exam GI & Abdominal Exam: Distended, Soft, Normal Bowel Sounds. absent: Guarding, Tenderness, Organomegaly Additional comments: +Ascites - Extremities Exam Extremities Exam: absent: Pedal Edema Additional comments: +Anascara - Neurological Exam Neurological Exam: Altered. absent: Alert, Oriented x3 - Psychiatric Exam Psychiatric exam: absent: Agitated - Skin Skin Exam: Normal Color Assessment and Plan - Assessment and Plan (Free Text) Assessment: 77 y/o woman w/ pmh of HTN, CAD s/p CABG, atrial fibrillation (not on anticoagulation due to thrombocytopenia), B cell lymphoma, MDS s/p chemo with pancytopenia , SIADH was admitted to [facility] for evaluation and treatment of bilateral pneumonia and possible c.diff. Pt went into respiratory failure and was placed on mechanical ventilation on 03/02. Pt is DNR as discussed with family. Plan: Respiratory Failure - Orotracheal intubation on MV. - Settings as ordered. - Pulmonology, Dr. Vazquez, recommendations appreciated Sepsis -Improving. Afebrile, Leukocytosis 15.7 Lactic Acid 1.6, Metabolic Acidosis apparent in todays ABG. - X-Ray (03/01): Limited left pleural effusion stable. Small right pleural ef fusion not excluded. Borderline pulmonary vascular congestion. -Cxray (03/06): Improvement seen in R pleural effusion. - Wound CX (Sacral Decubitus Ulcer): Growing MDR Klebsiella Pneu (Sensitive to Gentamycin) & Vanco Resistant Enterococcus Faecium (sensitive to Zyvox) - Trach Asp Cx: Yeast species, Trach Asp Cx (03/07): GNR,Yeast - S/P Meropenem 1gm IV Q8 x 1 day - C/W Ceftaroline 3000mg q12 (Day 6) - C/W Gentamycin 60mg/50cc q24hr (Day 4). Held yesterday due to elevated levels. Restarted today after discussing wit Dr. Fraga. F/U am Trough. - C/W Zyvox 600mg in D5W today (Day 3, HELD due to thrombocytopenia) and Flucanazole 100mg daily (Day 4) - Discontinue Hydrocortison, Vitamin C, and Thiamine as pt is no longer in septic shock - ID Dr. Pelletier on board Distended Abdomen -CTAbdomen: Moderate Ascites -C/W Diuresis -Continue OG feeds Anascara -Third spacing secondary to fluid resuscitation w/ negative fluid balance vs severe protein malnutrition -S/P Albumin and Diuresis w/ Lssix 60mg IV q12 Decubitus ulcer - Wound care on case, reconsulted for wound care of right cheek - Re-Positioning every 2 hour Hyperglycemia - No hx of DM - Likely secondary to IV Steroids. Hydrocortisone discontinued - Levemir discontinued B-cell lymphoma / MDS (myelodysplastic syndrome) - On chemo - F/u Hematology/oncology consult Dr De Dios - Continue with Procrit Chronic A-fib - All antihypertensive held due to patients low blood pressure - no anticoagulation due to thrombocytopenia (Stable) COPD chronic - c/w solumedrol 50 mg IV Q8H - c/w Atrovent and Xopenex - Tessala Perles - Incentive Shoaib Hypothyroid - Chronic, controlled - C/W Levothyroxine 75mcg daily CKD stage III - stable Hearing loss - possible medication induced or age related - out pt follow up DVT PPX - SCD's for now,thrombocytopenia GI ppx -Protonix 40mg po daily
[2018-03-08] MEDS: Fluconazole IV 100mg/50 ml NS 50 ML IVPB SCH (09:10)
[2018-03-08] MEDS: Insulin Regular 100 units/ml SC SCH ×4 (09:12→22:17)
[2018-03-08] MEDS: Petrolatum UD PAK TOP SCH ×2 (09:13→16:52)
--- NOTE | 2018-03-08 09:16 | CARD ---
APPROVED REPORT Date of service: 03/08/2018 EKG Measurement Heart [id number] <Conclusion> Junctional rhythm Low voltage QRS ST & Marked T wave abnormality, consider anterolateral ischemia Abnormal ECG
[2018-03-08] MEDS: Cholecalciferol 1,000 INTLU TAB PO SCH (09:25)
[2018-03-08] MEDS: Lactobacillus Acidophilus 500 MU Cap PO SCH ×2 (09:26→16:55)
[2018-03-08] MEDS: Albumin Human 5% (12.5 gm/250 ml) IV SCH (10:05)
--- NOTE | 2018-03-08 10:42 | CP.CCUPN ---
CCU Subjective - Physician Review Subjective (Free Text): Less awake today, appears more pallid and moribund, but follows simple commands, OGT remains on LIS with drainage of approx. 400ml since yesterday AM. No further vomiting noted. Breathing 21 on SIMV 14, PS 15, SPO2 99% on 40% oxygen. Other vitals and I/O's reviewed. No fever spikes last 24H. SBPs 107-110s, HR 47 in junctional rhythm earlier, now up to 67-70 in A Fib. POSTIVE FLUID BALANCE NOTED 1.58 L. ROS: No other pertinent negs or positives on 10+ system review. PMSFH: All other Nursing and physician documentation reviewed to date; no new pertinent info noted relevant to current medical problems. EXAM- HEENT: no icterus, no gaze preference, Pupils 3 mm and reactive NECK: No JVD visible, supple, carotids equal upstroke bilat/no bruit, trach stoma intact CHEST: decreased BS at the bases, no wheezes audible; R upper chest allan-cath intact, no tenderness or erythema. HEART: irregular, distant, tachy S1S2, no rubs ABD: softly and nontender, no tympany, no guarding, no organomegaly, BS hypoactive. EXT: ++++ LE edema, no calf tenderness or palpable cords, distal pulses intact and symmetrical. Well-healed bilat TKR scars. NEURO: moves all extremities spontaneously. SKIN: no rashes, warm and dry LABS: WBC= 15.7 HGB= 8.6 PLTs= 75K 7.32/31/138 Na= 132 K= 3.5 VZ=040 HCO3= 16 BUN/Cr= 35/2.1 BS= 247 CXR: Unchanged from 03/07 film- ETT above isaiah, bilateral basilar congestive interstitial changes, no gross consolidation (my interp). EKG: Junctional at 47/min, deep inverted Ts in all leads (my interp). IMPRESSION / MAJOR PROBLEMS NOW: 1. Acute Hypoxic Resp Failure 2. Pulm edema, r/o underlying Basilar Pneumonia 3. Acute on Chronic CKD 4. Thrombocytopenia, r/o Drug Induced. 5. Chronic A Fib with RVR (no AC-low plts) 6. Uncontrolled DM II 7. B-Cell Lymphoma and MDS, was on Chemotx. PLAN: 1. Day #7 on MV, still tachypneic at times to self-compensate for underlying metabolic acidosis. Latest sputum cx shows Yeast, and now a GNR; has been on Diflucan. 2. Discontinued steroids yesterday. 3. Trial of resuming OGT feeds now. CTAP negative for any severe life- threatening pathology. 4. Holding Metoprolol and Digoxin. On IV L-thyroxine, check TSH and free T4 levels. 5. Albumin IV therapy followed immediately by Lasix dosing to promote mobilization of 3rd space fluid accumulation. 6. Zyvox on hold as per ID guidance due to low platelets ( despite recent steroid therapy). Holding Heparin SQ for now as well given low Plts, continue SCDs bilaterally. Time spent with this patient did not overlap with any other provider's medical or critical care time. Additionally the code selected for the services rendered in this note includes the time spent: talking to the patients family, associated physicians and reviewing hospital data/results not listed here which extended to a total of 30 minutes of critical care. CCU Objective - Physical Exam Back: Positive for: Decubitus Ulcer
[2018-03-08] MEDS: SODIUM CHLORIDE 0.9% IVPB SCH ×2 (11:43→21:53)
[2018-03-08] MEDS: CEFTAROLINE IVPB SCH ×2 (11:43→21:53)
--- NOTE | 2018-03-08 12:49 | RAD ---
Date of service: 03/08/2018 PROCEDURE: CHEST RADIOGRAPH, 1 VIEW HISTORY: Pt intubated, daily confirmation of ETT COMPARISON: Multiple serial examinations preceding the most recent study: March 07, 2018. FINDINGS: LUNGS: Improving pulmonary vascular congestion. PLEURA: No visible pleural effusion or pneumothorax. CARDIOVASCULAR: No aortic atherosclerotic calcification present. Venous access catheter in stable, satisfactory position. OSSEOUS STRUCTURES: No significant abnormalities. VISUALIZED UPPER ABDOMEN: Normal. OTHER FINDINGS: Stable/satisfactory position of support apparatus including endotracheal tube and nasogastric tube. IMPRESSION: Improving pulmonary vascular congestion. Stable position of endotracheal tube, nasogastric tube and venous access catheter.
[2018-03-08] MEDS: Gentamicin 60mg/50ml NS 60 MG/50 ML BAG IVPB SCH (14:01)
[2018-03-08] MEDS: Proshield Plus GEL TOP PRN (16:51)
[2018-03-09 05:05] LABS: ABG ALLEN TEST YES; ARTERIAL BLOOD GAS HCO3 17.2 mmol/L (21-28); ARTERIAL BLOOD GAS HEMOGLOBIN 9.2 g/dL (11.7-17.4); ARTERIAL BLOOD GAS O2 CAPACITY 12.8 mL/dL (16-24); ARTERIAL BLOOD GAS O2 CONTENT 12.9 ML/dL (15-23); ARTERIAL BLOOD GAS O2 SAT 100.5 % (95-98); ARTERIAL BLOOD GAS PCO2 27 mm/Hg (35-45); ARTERIAL BLOOD GAS PH 7.34 (7.35-7.45); ARTERIAL BLOOD GAS PO2 136 mm/Hg (80-100); ARTERIAL BLOOD GAS TCO2 15.4 mmol/L (22-28)
[2018-03-09] MEDS: Levothyroxine 100 mcg (0.1 mg) Inj IVP SCH (05:47)
[2018-03-09 06:22] LABS: BASO # 0.1 K/uL (0.0-0.2); BASO % 0.3 % (0.0-2.0); HEMOGLOBIN 9.5 g/dL (12.0-16.0); LYMPH # 0.7 K/uL (1.0-4.3); LYMPH % 3.5 % (20.0-40.0); MEAN CELL VOLUME 87.4 fl (81.0-99.0); MEAN CORPUSCULAR HEMOGLOBIN 27.9 pg (27.0-31.0); MEAN CORPUSCULAR HGB CONC 31.9 g/dL (33.0-37.0); MEAN PLATELET VOLUME 12.1 fl (7.2-11.7); MONO # 0.4 K/uL (0.0-0.8); MONO % 1.9 % (0.0-10.0); NEUT # 18.1 K/uL (1.8-7.0); NEUT % 94.3 % (50.0-75.0); NRBC % 0.1 % (0.0-0.0); PLATELET COUNT 77 K/uL (130-400); RBC 3.41 Mil/uL (3.80-5.20); RED CELL DISTRIBUTION WIDTH 19.4 % (11.5-14.5); WHITE BLOOD COUNT 19.2 K/uL (4.8-10.8)
--- NOTE | 2018-03-09 06:45 | CP.PCM.PN ---
Subjective - Date & Time of Evaluation Date of Evaluation: 03/09/18 Time of Evaluation: 10:38 - Subjective Subjective: Patient seen and examined at bedside this morning. Patient unarousable to voice but grimaces and tries to open eyes w/ painful stimuli. Remains on vent, but weaing trial CPAP started. Remains on tube feed @ 10cc/hr Objective - Vital Signs/Intake and Output Vital Signs (last 24 hours): Temp Pulse Resp BP Pulse Ox 97.3 F L 54 L 16 120/53 L 100 03/09/18 04:00 03/09/18 05:00 03/09/18 05:00 03/09/18 05:00 03/09/18 05:00 Intake and Output: 03/08/18 03/09/18 18:59 06:59 Intake Total 785 530 Output Total 450 300 Balance 335 230 - Medications Medications: Current Medications Acetaminophen (Tylenol 325mg Tab) 650 mg PO Q6 PRN PRN Reason: Fever >100.4 F Acetaminophen (Tylenol 325mg/10.15ml Ud) 975 mg PO Q8 PRN PRN Reason: Pain, moderate (4-7) Ascorbic Acid (Vitamin C 500 Mg Tab) 500 mg PO BID [facility] Last Admin: 03/08/18 16:55 Dose: 500 mg Atorvastatin Calcium (Lipitor) 10 mg PO HS [facility] Last Admin: 03/08/18 21:51 Dose: 10 mg Cholecalciferol (Vitamin D) 1,000 intlu PO DAILY [facility] Last Admin: 03/08/18 09:25 Dose: 1,000 intlu Dextrose (Dextrose 50% Inj) 0 ml IV STAT PRN; Protocol PRN Reason: Hypoglycemia Protocol Last Admin: 03/09/18 00:40 Dose: 50 ml Dextrose (Glutose 15) 0 gm PO ONCE PRN; Protocol PRN Reason: Hypoglycemia Protocol Digoxin (Digoxin) 0.125 mg PO DAILY [facility] Last Admin: 03/02/18 10:51 Dose: Not Given Dimethicone (Proshield Plus Skin Protectant) 1 applic TOP Q8 PRN PRN Reason: Rash Last Admin: 03/08/18 16:51 Dose: 1 applic Emollient Ointment (Vaseline Oint) 1 pkt TOP BID [facility] Last Admin: 03/08/18 16:52 Dose: 1 pkt Epoetin Rolo (Procrit) 40,000 unit SC WED [facility] Last Admin: 03/07/18 10:16 Dose: 40,000 unit Furosemide (Lasix) 60 mg IV Q12H [facility] Last Admin: 03/09/18 01:00 Dose: 60 mg Glucagon (Glucagen Diagnostic Kit) 0 mg IM STAT PRN; Protocol PRN Reason: Hypoglycemia Protocol Heparin Sodium (Porcine) (Heparin) 5,000 units SC Q8 [facility]; Protocol Last Admin: 03/07/18 08:42 Dose: 5,000 units Fluconazole (Diflucan Iv 100 Mg/50 Ml Ns) 50 mls @ 50 mls/hr IVPB DAILY [facility]; Protocol Last Admin: 03/08/18 09:10 Dose: 50 mls/hr Ceftaroline Fosamil 200 mg/ (Sodium Chloride) 250 mls @ 250 mls/hr IVPB Q12 [facility]; Protocol Last Admin: 03/08/18 21:53 Dose: 250 mls/hr Gentamicin Sulfate/Sodium Chloride (Gentamicin 60mg/50ml Ns) 60 mg in 50 mls @ 50 mls/hr IVPB Q24H [facility]; Protocol Last Admin: 03/08/18 14:01 Dose: 50 mls/hr Insulin Human Regular (Humulin R) 0 units SC ACCU-CHECK [facility]; Protocol Last Admin: 03/08/18 22:17 Dose: Not Given Ipratropium [place] (Atrovent) 0.5 mg IH RQID [facility] Last Admin: 03/08/18 19:20 Dose: 0.5 mg Lactobacillus Acidophilus (Bacid Acidophilus) 1 cap PO BID [facility] Last Admin: 03/08/18 16:55 Dose: 1 cap Levalbuterol HCl (Xopenex) 0.63 mg INH RQID [facility] Last Admin: 03/08/18 19:20 Dose: 0.63 mg Levothyroxine Sodium (Synthroid) 40 mcg IVP DAILY@0630 [facility] Last Admin: 03/09/18 05:47 Dose: 40 mcg Mirtazapine (Remeron) 7.5 mg PO HS [facility] Last Admin: 03/08/18 21:51 Dose: 7.5 mg Nystatin (Nystop Topical Powder) 1 applic TOP TID [facility] Last Admin: 03/08/18 16:51 Dose: 1 appl Pantoprazole Sodium (Protonix Inj) 40 mg IVP DAILY [facility] Last Admin: 03/08/18 10:03 Dose: 40 mg - Labs Labs: 03/08/18 05:00 03/08/18 05:00 PT 11.2 Seconds (9.8-13.1) 03/06/18 04:30 INR 1.0 03/06/18 04:30 APTT 41.3 Seconds (25.6-37.1) H 03/06/18 04:30 - Constitutional Appears: Non-toxic, No Acute Distress - Head Exam Head Exam: ATRAUMATIC, NORMAL INSPECTION, NORMOCEPHALIC - Eye Exam Eye Exam: Normal appearance - ENT Exam ENT Exam: Mucous Membranes Moist - Respiratory Exam Respiratory Exam: Decreased Breath Sounds, Rales (mild). absent: Wheezes, Respiratory Distress - Cardiovascular Exam Cardiovascular Exam: REGULAR RHYTHM, +S1, +S2. absent: Murmur - GI/Abdominal Exam GI & Abdominal Exam: Soft, Normal Bowel Sounds. absent: Guarding, Tenderness - Extremities Exam Extremities Exam: absent: Pedal Edema - Neurological Exam Neurological Exam: absent: Abnormal Gait - Skin Skin Exam: Normal Color Assessment and Plan - Assessment and Plan (Free Text) Assessment: 77 y/o woman w/ pmh of HTN, CAD s/p CABG, atrial fibrillation (not on anticoagulation due to thrombocytopenia), B cell lymphoma, MDS s/p chemo with pancytopenia , SIADH was admitted to [facility] for evaluation and treatment of b ilateral pneumonia and possible c.diff. Pt went into respiratory failure and was placed on mechanical ventilation on 03/02. Pt is DNR as discussed with family. Plan: Respiratory Failure - Orotracheal intubation on MV - Weaning trial CPAP started - Settings as ordered. - Pulmonology, Dr. Vazquez, recommendations appreciated Sepsis - Resolved - Improving. Afebrile, Leukocytosis 15.7 Lactic Acid 1.6, Metabolic Acidosis apparent in todays ABG. - X-Ray (03/01): Limited left pleural effusion stable. Small right pleural effusion not excluded. Borderline pulmonary vascular congestion. - Cxray (03/06): Improvement seen in R pleural effusion. - Wound CX (Sacral Decubitus Ulcer): Growing MDR Klebsiella Pneu (Sensitive to Gentamycin) & Vanco Resistant Enterococcus Faecium (sensitive to Zyvox) - Trach Asp Cx: Yeast species, Trach Asp Cx (03/07): GNR,Yeast - S/P Meropenem 1gm IV Q8 x 1 day - C/W Ceftaroline 3000mg q12 (Day 7) - C/W Gentamycin 60mg/50cc q24hr (Day 5). Restarted yesterday after discussing wit Dr. Fraga. F/U am Trough. - C/W Zyvox 600mg in D5W today (Day 3, HELD due to thrombocytopenia) - C/W Flucanazole 100mg daily (Day 5) - Discontinue Hydrocortison, Vitamin C, and Thiamine as pt is no longer in septic shock - ID Dr. Pelletier on board Distended Abdomen - CT Abdomen: Moderate Ascites - C/W Diuresis - Continue OG feeds Anascara - Third spacing secondary to fluid resuscitation w/ negative fluid balance vs severe protein malnutrition - S/P Albumin and Diuresis w/ Lssix 60mg IV q12 Decubitus ulcer - Wound care on case, reconsulted for wound care of right cheek - Re-Positioning every 2 hour Hyperglycemia - No hx of DM - Likely secondary to IV Steroids. Hydrocortisone discontinued - Levemir discontinued B-cell lymphoma / MDS (myelodysplastic syndrome) - On chemo - F/u Hematology/oncology consult Dr De Dios - Continue with Procrit Chronic A-fib - All antihypertensive held due to patients low blood pressure - no anticoagulation due to thrombocytopenia (Stable) COPD chronic - c/w Atrovent and Xopenex - Shena Jaquez - Incentive Maxwell Hypothyroid - Chronic, controlled - C/W Levothyroxine 75mcg daily CKD stage III - stable Hearing loss - possible medication induced or age related - out pt follow up DVT PPX - SCD's for now,thrombocytopenia GI ppx - Protonix 40mg po daily Code status: DNR
[2018-03-09] MEDS: Ipratropium 0.02% Inhal Soln (0.5 mg/2.5 ml) UD IH SCH ×4 (08:00→19:14)
[2018-03-09] MEDS: Levalbuterol 0.63 MG/3 ML Inhal Soln UD INH SCH ×4 (08:01→19:14)
[2018-03-09 08:47] LABS: LYMPHOCYTE 5 % (20-50); MONOCYTE 2 % (0-10); NEUTROPHIL 93 % (42-75); PLATELET ESTIMATE DECREASED (NORMAL); TOTAL CELLS COUNTED 100
[2018-03-09 08:48] LABS: ANISOCYTOSIS SLIGHT; HYPOCHROMIC SLIGHT; LARGE PLATELETS PRESENT; MICROCYTOSIS SLIGHT; OVALOCYTES MODERATE; POIKILOCYTOSIS MODERATE; TEARDROP CELLS SLIGHT
--- NOTE | 2018-03-09 09:13 | CP.PCM.PN ---
Subjective - Date & Time of Evaluation Date of Evaluation: 03/09/18 Time of Evaluation: 09:11 - Subjective Subjective: Seen on morning rounds in the ICU, orally intubated and mechanically ventilated. Has been progressing slowly with MV weans and is presently on SIMV 10 and 35% O2. RR 10/20, EtCO2 22mm, SpO2 99%, pH 7.34, PaO2 136, PaCO2 27, HCO3 17. WBC 19.2, Hgb 9.5, plts 77. BUN/creat stable at 35/2.0, somee episodes of mild hypoglycemia noted. Remains off pressors with stable BP, remains afebrile, a fib on monitor V rate 60-110. Urine output has improved to 450mls. Seems less awake this morning. Responds to tactile stimuli with facial grimace, but not opening her eyes. Extremities are cool to touch, but not cyanotic. Dependant edema +++. Neck is supple and trachea midline. No dullness on percussion, no subcut emphysema palpated. Breath sounds are present bilaterally with improved character posteriorly on the left. No audible bronchial breath sounds, no audible wheezes, few scattered medium rales. Heart sounds are distant, irregular rhythm. Abdomen is full, soft and non-tender. Bowel sounds are still hypo. Feedings have been resumed at 10ml/hr. (Had been on LIS up until late yesterday because of vomiting.) Today's CXR looks pretty good w/o any areas of consolidation. Pleural effusions may be present as noted in the CT abdomen from the , as well as ascites. Remains on dual antibiotics and antifungal despite low procalcitonin. Culture have been monitored (urine and tracheal aspirate). Further weaning from the mechanical ventilator will continue today. She seems to be approaching extubation in the near future if she proceeds on this course. Objective - Vital Signs/Intake and Output Vital Signs (last 24 hours): Temp Pulse Resp BP Pulse Ox 98.8 F 71 10 L 132/68 100 03/09/18 08:00 03/09/18 08:00 03/09/18 08:00 03/09/18 08:00 03/09/18 08:00 Intake and Output: 03/08/18 03/09/18 23:59 11:59 Intake Total 435 380 Output Total 450 300 Balance -15 80 - Medications Medications: Current Medications Acetaminophen (Tylenol 325mg Tab) 650 mg PO Q6 PRN PRN Reason: Fever >100.4 F Acetaminophen (Tylenol 325mg/10.15ml Ud) 975 mg PO Q8 PRN PRN Reason: Pain, moderate (4-7) Ascorbic Acid (Vitamin C 500 Mg Tab) 500 mg PO BID [facility] Last Admin: 03/08/18 16:55 Dose: 500 mg Atorvastatin Calcium (Lipitor) 10 mg PO HS [facility] Last Admin: 03/08/18 21:51 Dose: 10 mg Cholecalciferol (Vitamin D) 1,000 intlu PO DAILY [facility] Last Admin: 03/08/18 09:25 Dose: 1,000 intlu Dextrose (Dextrose 50% Inj) 0 ml IV STAT PRN; Protocol PRN Reason: Hypoglycemia Protocol Last Admin: 03/09/18 00:40 Dose: 50 ml Dextrose (Glutose 15) 0 gm PO ONCE PRN; Protocol PRN Reason: Hypoglycemia Protocol Digoxin (Digoxin) 0.125 mg PO DAILY [facility] Last Admin: 03/02/18 10:51 Dose: Not Given Dimethicone (Proshield Plus Skin Protectant) 1 applic TOP Q8 PRN PRN Reason: Rash Last Admin: 03/08/18 16:51 Dose: 1 applic Emollient Ointment (Vaseline Oint) 1 pkt TOP BID [facility] Last Admin: 03/08/18 16:52 Dose: 1 pkt Epoetin Rolo (Procrit) 40,000 unit SC WED [facility] Last Admin: 03/07/18 10:16 Dose: 40,000 unit Furosemide (Lasix) 60 mg IV Q12H [facility] Last Admin: 03/09/18 01:00 Dose: 60 mg Glucagon (Glucagen Diagnostic Kit) 0 mg IM STAT PRN; Protocol PRN Reason: Hypoglycemia Protocol Heparin Sodium (Porcine) (Heparin) 5,000 units SC Q8 [facility]; Protocol Last Admin: 03/07/18 08:42 Dose: 5,000 units Fluconazole (Diflucan Iv 100 Mg/50 Ml Ns) 50 mls @ 50 mls/hr IVPB DAILY [facility]; Protocol Last Admin: 03/08/18 09:10 Dose: 50 mls/hr Ceftaroline Fosamil 200 mg/ (Sodium Chloride) 250 mls @ 250 mls/hr IVPB Q12 [facility]; Protocol Last Admin: 03/08/18 21:53 Dose: 250 mls/hr Gentamicin Sulfate/Sodium Chloride (Gentamicin 60mg/50ml Ns) 60 mg in 50 mls @ 50 mls/hr IVPB Q24H [facility]; Protocol Last Admin: 03/08/18 14:01 Dose: 50 mls/hr Insulin Human Regular (Humulin R) 0 units SC ACCU-CHECK [facility]; Protocol Last Admin: 03/08/18 22:17 Dose: Not Given Ipratropium [place] (Atrovent) 0.5 mg IH RQID [facility] Last Admin: 03/09/18 08:00 Dose: 0.5 mg Lactobacillus Acidophilus (Bacid Acidophilus) 1 cap PO BID [facility] Last Admin: 03/08/18 16:55 Dose: 1 cap Levalbuterol HCl (Xopenex) 0.63 mg INH RQID [facility] Last Admin: 03/09/18 08:01 Dose: 0.63 mg Levothyroxine Sodium (Synthroid) 40 mcg IVP DAILY@0630 [facility] Last Admin: 03/09/18 05:47 Dose: 40 mcg Mirtazapine (Remeron) 7.5 mg PO HS [facility] Last Admin: 03/08/18 21:51 Dose: 7.5 mg Nystatin (Nystop Topical Powder) 1 applic TOP TID [facility] Last Admin: 03/08/18 16:51 Dose: 1 appl Pantoprazole Sodium (Protonix Inj) 40 mg IVP DAILY [facility] Last Admin: 03/08/18 10:03 Dose: 40 mg - Labs Labs: 03/09/18 04:20 03/08/18 05:00 PT 11.2 Seconds (9.8-13.1) 03/06/18 04:30 INR 1.0 03/06/18 04:30 APTT 41.3 Seconds (25.6-37.1) H 03/06/18 04:30 Assessment and Plan (1) Bronchopneumonia Status: Acute (2) Sacral decubitus ulcer Status: Acute (3) Toxic metabolic encephalopathy Status: Acute (4) B-cell lymphoma Status: Chronic (5) COPD (chronic obstructive pulmonary disease) Status: Chronic (6) Thrombocytopenia Status: Acute
[2018-03-09] MEDS: Fluconazole IV 100mg/50 ml NS 50 ML IVPB SCH (09:24)
[2018-03-09] MEDS: Insulin Regular 100 units/ml SC SCH ×4 (09:25→22:15)
[2018-03-09] MEDS: Petrolatum UD PAK TOP SCH ×2 (09:28→16:45)
[2018-03-09] MEDS: Cholecalciferol 1,000 INTLU TAB PO SCH (09:29)
[2018-03-09] MEDS: Lactobacillus Acidophilus 500 MU Cap PO SCH ×2 (09:35→16:44)
[2018-03-09] MEDS: CEFTAROLINE IVPB SCH ×2 (09:36→22:18)
[2018-03-09] MEDS: SODIUM CHLORIDE 0.9% IVPB SCH ×2 (09:36→22:18)
--- NOTE | 2018-03-09 11:19 | RAD ---
Date of service: 03/09/2018 HISTORY: daily ETT placement confirmation COMPARISON: Portable chest 03/08/2018. FINDINGS: LUNGS: Endotracheal and nasogastric tubes do not appear significantly changed in position as well as right MediPort. No infiltrate bilaterally. PLEURA: No significant pleural effusion identified, no pneumothorax apparent. CARDIOVASCULAR: No aortic atherosclerotic calcification present. Mildly prominent cardiac silhouette reiterated marginal improvement in pulmonary vascular congestion. OSSEOUS STRUCTURES: No significant abnormalities. VISUALIZED UPPER ABDOMEN: Normal. OTHER FINDINGS: None. IMPRESSION: Marginal improvement in pulmonary vascular congestion appreciated. No infiltrate bilaterally.
--- NOTE | 2018-03-09 11:34 | CP.PCM.PN ---
Subjective - Date & Time of Evaluation Date of Evaluation: 03/09/18 Time of Evaluation: 11:32 - Subjective Subjective: pt is very lethargic today,but slightly improved fro m pulmonary point of view, and attempts are being made to to possibly ween her off the vent. The yeast infection and the klebsiella.is being treated but her cbc which was normal on ad mission now has thrombocytopenia, and anemia.. prognosis is poor. Objective - Vital Signs/Intake and Output Vital Signs (last 24 hours): Temp Pulse Resp BP Pulse Ox 98.8 F 71 10 L 132/68 100 03/09/18 08:00 03/09/18 08:00 03/09/18 08:00 03/09/18 08:00 03/09/18 08:00 Intake and Output: 03/09/18 03/09/18 06:59 18:59 Intake Total 530 30 Output Total 300 0 Balance 230 30 - Medications Medications: Current Medications Acetaminophen (Tylenol 325mg Tab) 650 mg PO Q6 PRN PRN Reason: Fever >100.4 F Acetaminophen (Tylenol 325mg/10.15ml Ud) 975 mg PO Q8 PRN PRN Reason: Pain, moderate (4-7) Ascorbic Acid (Vitamin C 500 Mg Tab) 500 mg PO BID [facility] Last Admin: 03/09/18 09:28 Dose: 500 mg Atorvastatin Calcium (Lipitor) 10 mg PO HS [facility] Last Admin: 03/08/18 21:51 Dose: 10 mg Cholecalciferol (Vitamin D) 1,000 intlu PO DAILY [facility] Last Admin: 03/09/18 09:29 Dose: 1,000 intlu Dextrose (Dextrose 50% Inj) 0 ml IV STAT PRN; Protocol PRN Reason: Hypoglycemia Protocol Last Admin: 03/09/18 00:40 Dose: 50 ml Dextrose (Glutose 15) 0 gm PO ONCE PRN; Protocol PRN Reason: Hypoglycemia Protocol Digoxin (Digoxin) 0.125 mg PO DAILY [facility] Last Admin: 03/02/18 10:51 Dose: Not Given Dimethicone (Proshield Plus Skin Protectant) 1 applic TOP Q8 PRN PRN Reason: Rash Last Admin: 03/08/18 16:51 Dose: 1 applic Emollient Ointment (Vaseline Oint) 1 pkt TOP BID [facility] Last Admin: 03/09/18 09:28 Dose: 1 pkt Epoetin Rolo (Procrit) 40,000 unit SC WED [facility] Last Admin: 03/07/18 10:16 Dose: 40,000 unit Furosemide (Lasix) 60 mg IV Q12H [facility] Last Admin: 03/09/18 01:00 Dose: 60 mg Glucagon (Glucagen Diagnostic Kit) 0 mg IM STAT PRN; Protocol PRN Reason: Hypoglycemia Protocol Heparin Sodium (Porcine) (Heparin) 5,000 units SC Q8 [facility]; Protocol Last Admin: 03/07/18 08:42 Dose: 5,000 units Fluconazole (Diflucan Iv 100 Mg/50 Ml Ns) 50 mls @ 50 mls/hr IVPB DAILY [facility]; Protocol Last Admin: 03/09/18 09:24 Dose: 50 mls/hr Ceftaroline Fosamil 200 mg/ (Sodium Chloride) 250 mls @ 250 mls/hr IVPB Q12 [facility]; Protocol Last Admin: 03/09/18 09:36 Dose: 250 mls/hr Gentamicin Sulfate/Sodium Chloride (Gentamicin 60mg/50ml Ns) 60 mg in 50 mls @ 50 mls/hr IVPB Q24H [facility]; Protocol Last Admin: 03/08/18 14:01 Dose: 50 mls/hr Insulin Human Regular (Humulin R) 0 units SC ACCU-CHECK [facility]; Protocol Last Admin: 03/09/18 09:25 Dose: Not Given Ipratropium [place] (Atrovent) 0.5 mg IH RQID [facility] Last Admin: 03/09/18 08:00 Dose: 0.5 mg Lactobacillus Acidophilus (Bacid Acidophilus) 1 cap PO BID [facility] Last Admin: 03/09/18 09:35 Dose: 1 cap Levalbuterol HCl (Xopenex) 0.63 mg INH RQID [facility] Last Admin: 03/09/18 08:01 Dose: 0.63 mg Levothyroxine Sodium (Synthroid) 40 mcg IVP DAILY@0630 [facility] Last Admin: 03/09/18 05:47 Dose: 40 mcg Mirtazapine (Remeron) 7.5 mg PO HS [facility] Last Admin: 03/08/18 21:51 Dose: 7.5 mg Nystatin (Nystop Topical Powder) 1 applic TOP TID [facility] Last Admin: 03/09/18 09:27 Dose: 1 appl Pantoprazole Sodium (Protonix Inj) 40 mg IVP DAILY [facility] Last Admin: 03/09/18 09:26 Dose: 40 mg - Labs Labs: 03/09/18 04:20 03/08/18 05:00 PT 11.2 Seconds (9.8-13.1) 03/06/18 04:30 INR 1.0 03/06/18 04:30 APTT 41.3 Seconds (25.6-37.1) H 03/06/18 04:30
--- NOTE | 2018-03-09 12:01 | CP.PCM.PN ---
Subjective - Date & Time of Evaluation Date of Evaluation: 03/09/18 Time of Evaluation: 09:00 - Subjective Subjective: The patient continues to be ventilator dependent and is steady being weaned off. Her FiO2 was 40% and pulse oximetry showed a saturation off 98%. The patient is in atrial flutter with 3:1 conduction and a ventricular heart rate of 97 bpm. Her blood pressure was 122/74 mmHg without any pressors. She had a urine output of 450 mL over last 24 hours. There is no overt clinical finding of congestive cardiac failure. Chest x-ray shows steady improvement. I have discussed her case with the gold leaf gilder. Objective - Vital Signs/Intake and Output Vital Signs (last 24 hours): Temp Pulse Resp BP Pulse Ox 98.8 F 72 14 112/57 L 100 03/09/18 08:00 03/09/18 10:00 03/09/18 10:00 03/09/18 10:00 03/09/18 10:00 Intake and Output: 03/09/18 03/09/18 06:59 18:59 Intake Total 530 260 Output Total 300 0 Balance 230 260 - Medications Medications: Current Medications Acetaminophen (Tylenol 325mg Tab) 650 mg PO Q6 PRN PRN Reason: Fever >100.4 F Acetaminophen (Tylenol 325mg/10.15ml Ud) 975 mg PO Q8 PRN PRN Reason: Pain, moderate (4-7) Ascorbic Acid (Vitamin C 500 Mg Tab) 500 mg PO BID [facility] Last Admin: 03/09/18 09:28 Dose: 500 mg Atorvastatin Calcium (Lipitor) 10 mg PO HS [facility] Last Admin: 03/08/18 21:51 Dose: 10 mg Cholecalciferol (Vitamin D) 1,000 intlu PO DAILY [facility] Last Admin: 03/09/18 09:29 Dose: 1,000 intlu Dextrose (Dextrose 50% Inj) 0 ml IV STAT PRN; Protocol PRN Reason: Hypoglycemia Protocol Last Admin: 03/09/18 00:40 Dose: 50 ml Dextrose (Glutose 15) 0 gm PO ONCE PRN; Protocol PRN Reason: Hypoglycemia Protocol Digoxin (Digoxin) 0.125 mg PO DAILY [facility] Last Admin: 03/02/18 10:51 Dose: Not Given Dimethicone (Proshield Plus Skin Protectant) 1 applic TOP Q8 PRN PRN Reason: Rash Last Admin: 03/08/18 16:51 Dose: 1 applic Emollient Ointment (Vaseline Oint) 1 pkt TOP BID [facility] Last Admin: 03/09/18 09:28 Dose: 1 pkt Epoetin Rolo (Procrit) 40,000 unit SC WED [facility] Last Admin: 03/07/18 10:16 Dose: 40,000 unit Furosemide (Lasix) 60 mg IV Q12H [facility] Last Admin: 03/09/18 01:00 Dose: 60 mg Glucagon (Glucagen Diagnostic Kit) 0 mg IM STAT PRN; Protocol PRN Reason: Hypoglycemia Protocol Heparin Sodium (Porcine) (Heparin) 5,000 units SC Q8 [facility]; Protocol Last Admin: 03/07/18 08:42 Dose: 5,000 units Fluconazole (Diflucan Iv 100 Mg/50 Ml Ns) 50 mls @ 50 mls/hr IVPB DAILY [facility]; Protocol Last Admin: 03/09/18 09:24 Dose: 50 mls/hr Ceftaroline Fosamil 200 mg/ (Sodium Chloride) 250 mls @ 250 mls/hr IVPB Q12 [facility]; Protocol Last Admin: 03/09/18 09:36 Dose: 250 mls/hr Gentamicin Sulfate/Sodium Chloride (Gentamicin 60mg/50ml Ns) 60 mg in 50 mls @ 50 mls/hr IVPB Q24H [facility]; Protocol Last Admin: 03/08/18 14:01 Dose: 50 mls/hr Insulin Human Regular (Humulin R) 0 units SC ACCU-CHECK [facility]; Protocol Last Admin: 03/09/18 09:25 Dose: Not Given Ipratropium [place] (Atrovent) 0.5 mg IH RQID [facility] Last Admin: 03/09/18 11:33 Dose: 0.5 mg Lactobacillus Acidophilus (Bacid Acidophilus) 1 cap PO BID [facility] Last Admin: 03/09/18 09:35 Dose: 1 cap Levalbuterol HCl (Xopenex) 0.63 mg INH RQID [facility] Last Admin: 03/09/18 11:33 Dose: 0.63 mg Levothyroxine Sodium (Synthroid) 40 mcg IVP DAILY@0630 [facility] Last Admin: 03/09/18 05:47 Dose: 40 mcg Mirtazapine (Remeron) 7.5 mg PO HS [facility] Last Admin: 03/08/18 21:51 Dose: 7.5 mg Nystatin (Nystop Topical Powder) 1 applic TOP TID [facility] Last Admin: 03/09/18 09:27 Dose: 1 appl Pantoprazole Sodium (Protonix Inj) 40 mg IVP DAILY [facility] Last Admin: 03/09/18 09:26 Dose: 40 mg - Labs Labs: 03/09/18 04:20 03/08/18 05:00 PT 11.2 Seconds (9.8-13.1) 03/06/18 04:30 INR 1.0 03/06/18 04:30 APTT 41.3 Seconds (25.6-37.1) H 03/06/18 04:30
[2018-03-09] MEDS: Gentamicin 60mg/50ml NS 60 MG/50 ML BAG IVPB SCH (12:42)
--- NOTE | 2018-03-09 13:01 | CP.CCUPN ---
CCU Subjective - Physician Review Subjective (Free Text): Eyes closed, readily responsive to verbal stimuli and commands, does not appear distressed, tolerated almost 2 hours on CPAP 5, PS 8, with RR 23, Ve= 9.6, SPO2 99% on 35% oxygen. Decision made to extubate patient now. Other vitals and I/O's reviewed. No fever spikes last 24H. SBPs 110s, HR 71; still exhibiting marked POSTIVE FLUID BALANCE despite attempts at diuresis. ROS: No other pertinent negs or positives on 10+ system review. PMSFH: All other Nursing and physician documentation reviewed to date; no new pertinent info noted relevant to current medical problems. EXAM- HEENT: no icterus, no gaze preference, Pupils 3 mm and reactive NECK: No JVD visible, supple, carotids equal upstroke bilat/no bruit, trach stoma intact CHEST: decreased BS at the bases, no wheezes audible; R upper chest allan-cath intact, no tenderness or erythema. HEART: irregular, distant, tachy S1S2, no rubs ABD: softly and nontender, no tympany, no guarding, no organomegaly, BS hypoactive. EXT: ++++ LE edema, no calf tenderness or palpable cords, distal pulses intact and symmetrical. Well-healed bilat TKR scars. NEURO: moves all extremities spontaneously. SKIN: no rashes, warm and dry LABS: WBC= 19.2 HGB= 9.5 PLTs= 77K 7.34/27/136 Yesterdays- Na= 132 K= 3.5 XK=614 HCO3= 16 BUN/Cr= 35/2.1 BS= 247 CXR: progressive improvement from 03/07- film- ETT above isaiah, in bilateral basilar congestive interstitial changes, no gross consolidation (my interp). IMPRESSION / MAJOR PROBLEMS NOW: 1. Acute Hypoxic Resp Failure 2. Pulm edema, r/o underlying Basilar Pneumonia 3. Acute on Chronic CKD 4. Thrombocytopenia, r/o Drug Induced. 5. Chronic A Fib with RVR (no AC-low plts) 6. Uncontrolled DM II 7. B-Cell Lymphoma and MDS, was on Chemotx. PLAN: 1. Day #8 on MV, extubation trial today. 2. Latest sputum cx shows Yeast, and a GNR; now identified as E. gergoviae, sens to Gent. 3. Discontinued steroids. Platelet counts have plateaued over the last 24-36H. 4. Albumin IV therapy followed immediately by Lasix dosing to promote mobilization of 3rd space fluid accumulation. Critical Care Progress Note - Nutrition Nutrition: Nutrition Category Date Time Status NPO Diet [DIET] Diets 03/03/18 Breakfast Active
[2018-03-09] MEDS: Proshield Plus GEL TOP PRN (14:38)
[2018-03-10 05:30] LABS: HEMOGLOBIN 9.1 g/dL (12.0-16.0); MEAN CELL VOLUME 86.8 fl (81.0-99.0); MEAN CORPUSCULAR HEMOGLOBIN 27.4 pg (27.0-31.0); MEAN CORPUSCULAR HGB CONC 31.5 g/dL (33.0-37.0); RBC 3.33 Mil/uL (3.80-5.20); WHITE BLOOD COUNT 19.2 K/uL (4.8-10.8)
[2018-03-10] MEDS ORDERED: Potassium Chloride 20 mEq/15 ml LIQ UD PO ONE (06:38)
[2018-03-10] MEDS: Potassium CL 10 MEQ/50 ML 50 ML IVPB SCH ×4 (06:52→13:14)
[2018-03-10] MEDS: Insulin Regular 100 units/ml SC SCH ×4 (07:03→23:49)
[2018-03-10] MEDS: Levothyroxine 100 mcg (0.1 mg) Inj IVP SCH (07:03)
--- NOTE | 2018-03-10 08:16 | CP.PCM.PN ---
Subjective - Date & Time of Evaluation Date of Evaluation: 03/10/18 Time of Evaluation: 10:37 - Subjective Subjective: Patient seen and examined at bedside this morning. Patient unarousable to voice but grimaces and tries to open eyes w/ painful stimuli. Extubated successfully yesterday. Remains on tube feed Objective - Vital Signs/Intake and Output Vital Signs (last 24 hours): Temp Pulse Resp BP Pulse Ox 97.7 F 102 H 34 H 134/54 L 100 03/10/18 04:00 03/10/18 06:00 03/10/18 06:00 03/10/18 06:00 03/10/18 06:00 Intake and Output: 03/10/18 03/10/18 06:59 18:59 Intake Total 270 Output Total 700 Balance -430 - Medications Medications: Current Medications Acetaminophen (Tylenol 325mg Tab) 650 mg PO Q6 PRN PRN Reason: Fever >100.4 F Acetaminophen (Tylenol 325mg/10.15ml Ud) 975 mg PO Q8 PRN PRN Reason: Pain, moderate (4-7) Ascorbic Acid (Vitamin C 500 Mg Tab) 500 mg PO BID [facility] Last Admin: 03/09/18 16:45 Dose: Not Given Atorvastatin Calcium (Lipitor) 10 mg PO HS [facility] Last Admin: 03/09/18 22:15 Dose: Not Given Cholecalciferol (Vitamin D) 1,000 intlu PO DAILY [facility] Last Admin: 03/09/18 09:29 Dose: 1,000 intlu Dextrose (Dextrose 50% Inj) 0 ml IV STAT PRN; Protocol PRN Reason: Hypoglycemia Protocol Last Admin: 03/09/18 00:40 Dose: 50 ml Dextrose (Glutose 15) 0 gm PO ONCE PRN; Protocol PRN Reason: Hypoglycemia Protocol Digoxin (Digoxin) 0.125 mg PO DAILY [facility] Last Admin: 03/02/18 10:51 Dose: Not Given Dimethicone (Proshield Plus Skin Protectant) 1 applic TOP Q8 PRN PRN Reason: Rash Last Admin: 03/09/18 14:38 Dose: 1 applic Emollient Ointment (Vaseline Oint) 1 pkt TOP BID [facility] Last Admin: 03/09/18 16:45 Dose: 1 pkt Epoetin Rolo (Procrit) 40,000 unit SC WED [facility] Last Admin: 03/07/18 10:16 Dose: 40,000 unit Furosemide (Lasix) 60 mg IV Q12H [facility] Last Admin: 03/10/18 02:10 Dose: 60 mg Glucagon (Glucagen Diagnostic Kit) 0 mg IM STAT PRN; Protocol PRN Reason: Hypoglycemia Protocol Heparin Sodium (Porcine) (Heparin) 5,000 units SC Q8 [facility]; Protocol Last Admin: 03/07/18 08:42 Dose: 5,000 units Fluconazole (Diflucan Iv 100 Mg/50 Ml Ns) 50 mls @ 50 mls/hr IVPB DAILY [facility]; Protocol Last Admin: 03/09/18 09:24 Dose: 50 mls/hr Ceftaroline Fosamil 200 mg/ (Sodium Chloride) 250 mls @ 250 mls/hr IVPB Q12 [facility]; Protocol Last Admin: 03/09/18 22:18 Dose: 250 mls/hr Gentamicin Sulfate/Sodium Chloride (Gentamicin 60mg/50ml Ns) 60 mg in 50 mls @ 50 mls/hr IVPB Q24H [facility]; Protocol Last Admin: 03/09/18 12:42 Dose: 50 mls/hr Potassium Chloride (Potassium Cl 10meq/50ml Sterile Water) 50 mls @ 50 mls/hr IVPB Q1 [facility] Stop: 03/10/18 10:59 Last Admin: 03/10/18 08:13 Dose: 50 mls/hr Insulin Human Regular (Humulin R) 0 units SC ACCU-CHECK [facility]; Protocol Last Admin: 03/10/18 07:03 Dose: Not Given Ipratropium [place] (Atrovent) 0.5 mg IH RQID [facility] Last Admin: 03/09/18 19:14 Dose: 0.5 mg Lactobacillus Acidophilus (Bacid Acidophilus) 1 cap PO BID [facility] Last Admin: 03/09/18 16:44 Dose: Not Given Levalbuterol HCl (Xopenex) 0.63 mg INH RQID [facility] Last Admin: 03/09/18 19:14 Dose: 0.63 mg Levothyroxine Sodium (Synthroid) 40 mcg IVP DAILY@0630 [facility] Last Admin: 03/10/18 07:03 Dose: 40 mcg Mirtazapine (Remeron) 7.5 mg PO HS [facility] Last Admin: 03/09/18 22:16 Dose: Not Given Nystatin (Nystop Topical Powder) 1 applic TOP TID [facility] Last Admin: 03/09/18 16:44 Dose: 1 appl Pantoprazole Sodium (Protonix Inj) 40 mg IVP DAILY [facility] Last Admin: 03/09/18 09:26 Dose: 40 mg - Labs Labs: 03/10/18 04:12 03/10/18 04:12 PT 11.2 Seconds (9.8-13.1) 03/06/18 04:30 INR 1.0 03/06/18 04:30 APTT 41.3 Seconds (25.6-37.1) H 03/06/18 04:30 - Constitutional Appears: Non-toxic, No Acute Distress - Head Exam Head Exam: ATRAUMATIC, NORMAL INSPECTION, NORMOCEPHALIC - Eye Exam Eye Exam: Normal appearance - ENT Exam ENT Exam: Mucous Membranes Moist - Respiratory Exam Respiratory Exam: Decreased Breath Sounds, Rales (mild). absent: Wheezes, Respiratory Distress - Cardiovascular Exam Cardiovascular Exam: REGULAR RHYTHM, +S1, +S2. absent: Murmur - GI/Abdominal Exam GI & Abdominal Exam: Soft, Normal Bowel Sounds - Extremities Exam Extremities Exam: absent: Pedal Edema - Neurological Exam Neurological Exam: absent: Abnormal Gait - Skin Skin Exam: Normal Color Assessment and Plan - Assessment and Plan (Free Text) Assessment: 77 y/o woman w/ pmh of HTN, CAD s/p CABG, atrial fibrillation (not on anticoagulation due to thrombocytopenia), B cell lymphoma, MDS s/p chemo with pancytopenia , SIADH was admitted to [facility] for evaluation and treatment of bilateral pneumonia and possible c.diff. Pt went into respiratory failure and was placed on mechanical ventilation on 03/02. Pt is DNR as discussed with family. Plan: Respiratory Failure - Extubated - removes venti mask - Nasal cannula @ 4L - Pulmonology, Dr. Vazquez, recommendations appreciated Sepsis - Resolved - Improving. Afebrile, Leukocytosis 19.2 Lactic Acid 1.6, Metabolic Acidosis apparent in ABG. - X-Ray (03/01): Limited left pleural effusion stable. Small right pleural effusion not excluded. Borderline pulmonary vascular congestion. - Cxray (03/06): Improvement seen in R pleural effusion. - Wound CX (Sacral Decubitus Ulcer): Growing MDR Klebsiella Pneu (Sensitive to Gentamycin) & Vanco Resistant Enterococcus Faecium (sensitive to Zyvox) - Trach Asp Cx: Yeast species, Trach Asp Cx (03/07): GNR,Yeast - S/P Meropenem 1gm IV Q8 x 1 day - C/W Ceftaroline 3000mg q12 (Day 8) - C/W Gentamycin 60mg/50cc q24hr (Day 5), held due to elevated gentamicin trough - C/W Zyvox 600mg in D5W today (Day 3, HELD due to thrombocytopenia) - C/W Flucanazole 100mg daily (Day 6) - Discontinue Hydrocortison, Vitamin C, and Thiamine as pt is no longer in septic shock - ID Dr. Pelletier on board Distended Abdomen - CT Abdomen: Moderate Ascites - C/W Diuresis - Continue OG feeds Anascara - Third spacing secondary to fluid resuscitation w/ negative fluid balance vs severe protein malnutrition - S/P Albumin and Diuresis w/ Lssix 60mg IV q12 Decubitus ulcer - Wound care on case, reconsulted for wound care of right cheek - Re-Positioning every 2 hour Hyperglycemia - No hx of DM - Likely secondary to IV Steroids. Hydrocortisone discontinued - Levemir discontinued B-cell lymphoma / MDS (myelodysplastic syndrome) - On chemo - F/u Hematology/oncology consult Dr DeD ios - Continue with Procrit Chronic A-fib - All antihypertensive held due to patients low blood pressure - no anticoagulation due to thrombocytopenia (Stable) COPD chronic - c/w Atrovent and Xopenex - [place] Gisele - Incentive Shoaib Hypothyroid - Chronic, controlled - C/W Levothyroxine 75mcg daily CKD stage III - stable Hearing loss - possible medication induced or age related - out pt follow up DVT PPX - SCD's for now,thrombocytopenia GI ppx - Protonix 40mg po daily Code status: DNR discuss w/ family regarding hospice care
[2018-03-10] MEDS: Levalbuterol 0.63 MG/3 ML Inhal Soln UD INH SCH ×4 (08:27→19:06)
[2018-03-10] MEDS: Ipratropium 0.02% Inhal Soln (0.5 mg/2.5 ml) UD IH SCH ×4 (08:27→19:06)
--- NOTE | 2018-03-10 08:30 | CP.CCUPN ---
CCU Subjective - Physician Review Events Since Last Encounter (Free Text): Patient awake, on O2 supplement, no distress, no fever, no pressors, events reviewed CCU Objective - Vital Signs / Intake & Output Vital Signs (Last 4 hours): Vital Signs Temp Pulse Resp BP Pulse Ox 03/10/18 08:00 97.6 F 101 H 27 H 137/54 L 100 03/10/18 06:00 102 H 34 H 134/54 L 100 Intake and Output (Last 8hrs): Intake & Output 03/09/18 03/10/18 03/10/18 22:59 06:59 14:59 Intake Total 274 16 Output Total 100 700 Balance 174 -684 Weight 171 lb 1 oz Intake: IV 24 16 Intake, Piggyback 250 Output: Urine 100 700 Urethral ([place]) 100 Urine, Voided 700 - Physical Exam Head: Positive for: Atraumatic, Normocephalic Pupils: Positive for: PERRL Extroacular Muscles: Positive for: EOMI Conjunctiva: Positive for: Normal Ears: Positive for: Normal Mouth: Positive for: Moist Mucous Membranes Pharnyx: Positive for: Normal Nose (Internal): Positive for: Normal Inspection Neck: Positive for: Normal Range of Motion Respiratory/Chest: Positive for: Rhonchi Cardiovascular: Positive for: Regular Rate and Rhythm Abdomen: Positive for: Normal Bowel Sounds. Negative for: Tenderness, Distention Back: Positive for: Decubitus Ulcer Upper Extremity: Positive for: Normal Inspection Lower Extremity: Positive for: Normal Inspection Psychiatric: Positive for: Alert - Medications Active Medications: Active Medications Generic Name Dose Route Start Last Admin Trade Name Freq PRN Reason Stop Dose Admin Acetaminophen 650 mg 03/02/18 04:23 Tylenol 325mg Tab PO Q6 PRN Fever >100.4 F Acetaminophen 975 mg 03/02/18 21:45 Tylenol 325mg/10.15ml Ud PO Q8 PRN Pain, moderate (4-7) Ascorbic Acid 500 mg 03/05/18 09:00 03/09/18 16:45 Vitamin C 500 Mg Tab PO Not Given BID [facility] Atorvastatin Calcium 10 mg 03/01/18 22:00 03/09/18 22:15 Lipitor PO Not Given HS [facility] Cholecalciferol 1,000 intlu 03/02/18 09:00 03/09/18 09:29 Vitamin D PO 1,000 intlu DAILY [facility] Administration Dextrose 0 ml 03/05/18 11:53 03/09/18 00:40 Dextrose 50% Inj IV 50 ml STAT PRN Administration Hypoglycemia Protocol Protocol Dextrose 0 gm 03/05/18 11:53 Glutose 15 PO ONCE PRN Hypoglycemia Protocol Protocol Digoxin 0.125 mg 03/02/18 09:00 03/02/18 10:51 Digoxin PO Not Given DAILY [facility] Dimethicone 1 applic 03/01/18 19:56 03/09/18 14:38 Proshield Plus Skin Protectant TOP 1 applic Q8 PRN Administration Rash Emollient Ointment 1 pkt 03/02/18 09:00 03/09/18 16:45 Vaseline Oint TOP 1 pkt BID [facility] Administration Epoetin Rolo 40,000 unit 03/07/18 09:00 03/07/18 10:16 Procrit SC 40,000 unit WED [facility] Administration Furosemide 60 mg 03/06/18 14:00 03/10/18 02:10 Lasix IV 60 mg Q12H [facility] Administration Glucagon 0 mg 03/05/18 11:53 Glucagen Diagnostic Kit IM STAT PRN Hypoglycemia Protocol Protocol Heparin Sodium (Porcine) 5,000 units 03/05/18 17:00 03/07/18 08:42 Heparin SC 5,000 units Q8 [facility] Administration Protocol Fluconazole 50 mls @ 50 mls/hr 03/05/18 13:45 03/09/18 09:24 Diflucan Iv 100 Mg/50 Ml Ns IVPB 50 mls/hr DAILY [facility] Administration Protocol Ceftaroline Fosamil 200 mg/ 250 mls @ 250 mls/hr 03/07/18 21:00 03/09/18 22:18 Sodium Chloride IVPB 250 mls/hr Q12 [facility] Administration Protocol Gentamicin Sulfate/Sodium Chloride 60 mg in 50 mls @ 50 mls/hr 03/08/18 12:00 03/09/18 12:42 Gentamicin 60mg/50ml Ns IVPB 50 mls/hr Q24H [facility] Administration Protocol Potassium Chloride 50 mls @ 50 mls/hr 03/10/18 07:00 03/10/18 08:13 Potassium Cl 10meq/50ml Sterile Water IVPB 03/10/18 10:59 50 mls/hr Q1 [facility] Administration Insulin Human Regular 0 units 03/05/18 12:00 03/10/18 07:03 Humulin R SC Not Given ACCU-CHECK [facility] Protocol Ipratropium [place] 0.5 mg 03/01/18 20:00 03/09/18 19:14 Atrovent IH 0.5 mg RQID [facility] Administration Lactobacillus Acidophilus 1 cap 03/02/18 09:00 03/09/18 16:44 Bacid Acidophilus PO Not Given BID [facility] Levalbuterol HCl 0.63 mg 03/03/18 12:00 03/09/18 19:14 Xopenex INH 0.63 mg RQID [facility] Administration Levothyroxine Sodium 40 mcg 03/03/18 06:30 03/10/18 07:03 Synthroid IVP 40 mcg DAILY@0630 [facility] Administration Mirtazapine 7.5 mg 03/01/18 22:00 03/09/18 22:16 Remeron PO Not Given HS [facility] Nystatin 1 applic 03/02/18 17:00 03/09/18 16:44 Nystop Topical Powder TOP 1 appl TID [facility] Administration Pantoprazole Sodium 40 mg 03/03/18 09:00 03/09/18 09:26 Protonix Inj IVP 40 mg DAILY [facility] Administration - Patient Studies Lab Studies: Microbiology Studies 03/07/18 13:40 Gram Stain - Final Sputum Sputum Culture - Final Enterobacter Gergoviae Yeast Species Lab Studies 03/10/18 03/10/18 03/10/18 Range/Units 06:03 04:12 04:12 WBC 19.2 H (4.8-10.8) K/uL RBC 3.33 L (3.80-5.20) Mil/uL Hgb 9.1 L (12.0-16.0) g/dL Hct 28.9 L (34.0-47.0) % MCV 86.8 (81.0-99.0) fl MCH 27.4 (27.0-31.0) pg MCHC 31.5 L (33.0-37.0) g/dL RDW 19.0 H (11.5-14.5) % Plt Count 82 L (130-400) K/uL Neutrophils % (Manual) (42-75) % Lymphocytes % (Manual) (20-50) % Monocytes % (Manual) (0-10) % Platelet Estimate (NORMAL) Large Platelets Hypochromasia (manual) Poikilocytosis (manual Anisocytosis (manual) Microcytosis (manual) Tear Drop Cells Ovalocytes Sodium 132 (132-148) mmol/l Potassium 2.9 L (3.6-5.0) MMOL/L Chloride 106 (98-107) mmol/L Carbon Dioxide 16 L (22-30) mmol/L Anion Gap 13 (10-20) BUN 35 H (7-17) mg/dl Creatinine 1.7 H (0.7-1.2) mg/dl Est GFR ( Amer) 35 Est GFR (Non-Af Amer) 29 POC Glucose (mg/dL) 93 (65-110) mg/dL Random Glucose 90 (65-105) mg/dL Calcium 8.0 L (8.4-10.2) mg/dL Gentamicin Trough (0.0-0.9) ug/mL C. difficile Tox B Gene (Not Detected) 03/09/18 03/09/18 03/09/18 Range/Units 21:34 16:48 11:21 WBC (4.8-10.8) K/uL RBC (3.80-5.20) Mil/uL Hgb (12.0-16.0) g/dL Hct (34.0-47.0) % MCV (81.0-99.0) fl MCH (27.0-31.0) pg MCHC (33.0-37.0) g/dL RDW (11.5-14.5) % Plt Count (130-400) K/uL Neutrophils % (Manual) (42-75) % Lymphocytes % (Manual) (20-50) % Monocytes % (Manual) (0-10) % Platelet Estimate (NORMAL) Large Platelets Hypochromasia (manual) Poikilocytosis (manual Anisocytosis (manual) Microcytosis (manual) Tear Drop Cells Ovalocytes Sodium (132-148) mmol/l Potassium (3.6-5.0) MMOL/L Chloride (98-107) mmol/L Carbon Dioxide (22-30) mmol/L Anion Gap (10-20) BUN (7-17) mg/dl Creatinine (0.7-1.2) mg/dl Est GFR ( Amer) Est GFR (Non-Af Amer) POC Glucose (mg/dL) 115 H 110 97 (65-110) mg/dL Random Glucose (65-105) mg/dL Calcium (8.4-10.2) mg/dL Gentamicin Trough (0.0-0.9) ug/mL C. difficile Tox B Gene (Not Detected) 03/09/18 03/09/18 03/07/18 Range/Units 04:20 04:20 13:40 WBC (4.8-10.8) K/uL RBC (3.80-5.20) Mil/uL Hgb (12.0-16.0) g/dL Hct (34.0-47.0) % MCV (81.0-99.0) fl MCH (27.0-31.0) pg MCHC (33.0-37.0) g/dL RDW (11.5-14.5) % Plt Count (130-400) K/uL Neutrophils % (Manual) 93 H (42-75) % Lymphocytes % (Manual) 5 L (20-50) % Monocytes % (Manual) 2 (0-10) % Platelet Estimate Decreased L (NORMAL) Large Platelets Present Hypochromasia (manual) Slight Poikilocytosis (manual Moderate Anisocytosis (manual) Slight Microcytosis (manual) Slight Tear Drop Cells Slight Ovalocytes Moderate Sodium (132-148) mmol/l Potassium (3.6-5.0) MMOL/L Chloride (98-107) mmol/L Carbon Dioxide (22-30) mmol/L Anion Gap (10-20) BUN (7-17) mg/dl Creatinine (0.7-1.2) mg/dl Est GFR ( Amer) Est GFR (Non-Af Amer) POC Glucose (mg/dL) (65-110) mg/dL Random Glucose (65-105) mg/dL Calcium (8.4-10.2) mg/dL Gentamicin Trough 2.8 H* (0.0-0.9) ug/mL C. difficile Tox B Gene Not detected (Not Detected) Laboratory Results - last 24 hr 03/07/18 03/09/18 03/09/18 13:40 04:20 04:20 WBC RBC Hgb Hct MCV MCH MCHC RDW Plt Count Neutrophils % (Manual) 93 H Lymphocytes % (Manual) 5 L Monocytes % (Manual) 2 Platelet Estimate Decreased L Large Platelets Present Hypochromasia (manual) Slight Poikilocytosis (manual Moderate Anisocytosis (manual) Slight Microcytosis (manual) Slight Tear Drop Cells Slight Ovalocytes Moderate Sodium Potassium Chloride Carbon Dioxide Anion Gap BUN Creatinine Est GFR ( Amer) Est GFR (Non-Af Amer) POC Glucose (mg/dL) Random Glucose Calcium Gentamicin Trough 2.8 H* C. difficile Tox B Gene Not detected 03/09/18 03/09/18 03/09/18 11:21 16:48 21:34 WBC RBC Hgb Hct MCV MCH MCHC RDW Plt Count Neutrophils % (Manual) Lymphocytes % (Manual) Monocytes % (Manual) Platelet Estimate Large Platelets Hypochromasia (manual) Poikilocytosis (manual Anisocytosis (manual) Microcytosis (manual) Tear Drop Cells Ovalocytes Sodium Potassium Chloride Carbon Dioxide Anion Gap BUN Creatinine Est GFR ( Amer) Est GFR (Non-Af Amer) POC Glucose (mg/dL) 97 110 115 H Random Glucose Calcium Gentamicin Trough C. difficile Tox B Gene 03/10/18 03/10/18 03/10/18 04:12 04:12 06:03 WBC 19.2 H RBC 3.33 L Hgb 9.1 L Hct 28.9 L MCV 86.8 MCH 27.4 MCHC 31.5 L RDW 19.0 H Plt Count 82 L Neutrophils % (Manual) Lymphocytes % (Manual) Monocytes % (Manual) Platelet Estimate Large Platelets Hypochromasia (manual) Poikilocytosis (manual Anisocytosis (manual) Microcytosis (manual) Tear Drop Cells Ovalocytes Sodium 132 Potassium 2.9 L Chloride 106 Carbon Dioxide 16 L Anion Gap 13 BUN 35 H Creatinine 1.7 H Est GFR ( Amer) 35 Est GFR (Non-Af Amer) 29 POC Glucose (mg/dL) 93 Random Glucose 90 Calcium 8.0 L Gentamicin Trough C. difficile Tox B Gene Fingerstick Blood Sugar Results: 93 Critical Care Progress Note - Nutrition Nutrition: Nutrition Category Date Time Status NPO Diet [DIET] Diets 03/03/18 Breakfast Active Assessment/Plan - Assessment and Plan (Free Text) Assessment: A/P Acute respiratory failure improved, pulmonary edema, ? pneumonia, acute on CKD, A Fib, B cell lymphoma, MDS - O2 supplement - Pulmonary toilets - Continue meds - Hematology follow up
[2018-03-10] MEDS: Lactobacillus Acidophilus 500 MU Cap PO SCH ×2 (08:45→16:59)
[2018-03-10] MEDS: Fluconazole IV 100mg/50 ml NS 50 ML IVPB SCH (08:48)
[2018-03-10] MEDS: SODIUM CHLORIDE 0.9% IVPB SCH ×2 (08:49→22:50)
[2018-03-10] MEDS: CEFTAROLINE IVPB SCH ×2 (08:49→22:50)
[2018-03-10] MEDS: Cholecalciferol 1,000 INTLU TAB PO SCH (08:50)
[2018-03-10] MEDS: Petrolatum UD PAK TOP SCH ×2 (08:50→17:00)
--- NOTE | 2018-03-10 11:59 | CP.PCM.PN ---
Subjective - Date & Time of Evaluation Date of Evaluation: 03/10/18 Time of Evaluation: 10:55 - Subjective Subjective: The patient was found resting comfortably in bed and breathing spontaneously. She was easily arousable and recognizes me readily. She answers simple questions by nodding only. She was afebrile. teletypesetter monitor shows atrial flutter with a heart rate of 100 bpm and regular. Her blood pressure was 136/70 mmHg. Jugular venous pressure was not elevated. There was no gallop. There were scattered rhonchi and coarse crepitations. (At inspiratory effort was poor) She had put out 450 mL of urine over last 5 hours. Lab tests today show a further decline of serum creatinine to 1.7 mg percent. Potassium has been ordered for hypokalemia. The patient appears stable from cardiovascular point of view. Objective - Vital Signs/Intake and Output Vital Signs (last 24 hours): Temp Pulse Resp BP Pulse Ox 97.6 F 101 H 24 133/58 L 28 L 03/10/18 08:00 03/10/18 10:00 03/10/18 10:00 03/10/18 10:00 03/10/18 10:00 Intake and Output: 03/10/18 03/10/18 06:59 18:59 Intake Total 270 350 Output Total 700 Balance -430 350 - Medications Medications: Current Medications Acetaminophen (Tylenol 325mg Tab) 650 mg PO Q6 PRN PRN Reason: Fever >100.4 F Acetaminophen (Tylenol 325mg/10.15ml Ud) 975 mg PO Q8 PRN PRN Reason: Pain, moderate (4-7) Ascorbic Acid (Vitamin C 500 Mg Tab) 500 mg PO BID [facility] Last Admin: 03/10/18 08:50 Dose: Not Given Atorvastatin Calcium (Lipitor) 10 mg PO HS [facility] Last Admin: 03/09/18 22:15 Dose: Not Given Cholecalciferol (Vitamin D) 1,000 intlu PO DAILY [facility] Last Admin: 03/10/18 08:50 Dose: Not Given Dextrose (Dextrose 50% Inj) 0 ml IV STAT PRN; Protocol PRN Reason: Hypoglycemia Protocol Last Admin: 03/09/18 00:40 Dose: 50 ml Dextrose (Glutose 15) 0 gm PO ONCE PRN; Protocol PRN Reason: Hypoglycemia Protocol Digoxin (Digoxin) 0.125 mg PO DAILY [facility] Last Admin: 03/02/18 10:51 Dose: Not Given Dimethicone (Proshield Plus Skin Protectant) 1 applic TOP Q8 PRN PRN Reason: Rash Last Admin: 03/09/18 14:38 Dose: 1 applic Emollient Ointment (Vaseline Oint) 1 pkt TOP BID [facility] Last Admin: 03/10/18 08:50 Dose: 1 pkt Epoetin Rolo (Procrit) 40,000 unit SC WED [facility] Last Admin: 03/07/18 10:16 Dose: 40,000 unit Furosemide (Lasix) 60 mg IV Q12H [facility] Last Admin: 03/10/18 02:10 Dose: 60 mg Glucagon (Glucagen Diagnostic Kit) 0 mg IM STAT PRN; Protocol PRN Reason: Hypoglycemia Protocol Heparin Sodium (Porcine) (Heparin) 5,000 units SC Q8 [facility]; Protocol Last Admin: 03/07/18 08:42 Dose: 5,000 units Fluconazole (Diflucan Iv 100 Mg/50 Ml Ns) 50 mls @ 50 mls/hr IVPB DAILY [facility]; Protocol Last Admin: 03/10/18 08:48 Dose: 50 mls/hr Ceftaroline Fosamil 200 mg/ (Sodium Chloride) 250 mls @ 250 mls/hr IVPB Q12 [facility]; Protocol Last Admin: 03/10/18 08:49 Dose: 250 mls/hr Gentamicin Sulfate/Sodium Chloride (Gentamicin 60mg/50ml Ns) 60 mg in 50 mls @ 50 mls/hr IVPB Q24H [facility]; Protocol Last Admin: 03/09/18 12:42 Dose: 50 mls/hr Insulin Human Regular (Humulin R) 0 units SC ACCU-CHECK [facility]; Protocol Last Admin: 03/10/18 07:03 Dose: Not Given Ipratropium [place] (Atrovent) 0.5 mg IH RQID [facility] Last Admin: 03/10/18 11:35 Dose: 0.5 mg Lactobacillus Acidophilus (Bacid Acidophilus) 1 cap PO BID [facility] Last Admin: 03/10/18 08:45 Dose: Not Given Levalbuterol HCl (Xopenex) 0.63 mg INH RQID [facility] Last Admin: 03/10/18 11:35 Dose: 0.63 mg Levothyroxine Sodium (Synthroid) 40 mcg IVP DAILY@0630 [facility] Last Admin: 03/10/18 07:03 Dose: 40 mcg Mirtazapine (Remeron) 7.5 mg PO HS [facility] Last Admin: 03/09/18 22:16 Dose: Not Given Nystatin (Nystop Topical Powder) 1 applic TOP TID [facility] Last Admin: 03/10/18 10:47 Dose: 1 appl Pantoprazole Sodium (Protonix Inj) 40 mg IVP DAILY [facility] Last Admin: 03/10/18 08:49 Dose: 40 mg - Labs Labs: 03/10/18 04:12 03/10/18 04:12 PT 11.2 Seconds (9.8-13.1) 03/06/18 04:30 INR 1.0 03/06/18 04:30 APTT 41.3 Seconds (25.6-37.1) H 03/06/18 04:30
[2018-03-10] MEDS: Dextrose 5%/0.9% NS 1,000 ML IV SCH (15:20)
[2018-03-10] MEDS: Proshield Plus GEL TOP PRN (17:00)
--- NOTE | 2018-03-10 18:12 | CP.PCM.PN ---
Subjective - Date & Time of Evaluation Date of Evaluation: 03/10/18 Time of Evaluation: 18:00 - Subjective Subjective: I D NOTE PRESENTLY OFF RESPIRATOR SOME IMPROVEMENT IN RENAL STATUS INCLUDING LABS AND OUTPUT. RANDOM GENTAMICIN IS 4.0,HAVE ORDERED FOLLOWUP FOR AM. HAS BEEN DISCONTINUED FOR NOW ,SHOULD HAVE ADEQUATE LEVELS AT THIS TIME AWAKE RESPONDED TO ME VERBALLY WELL RECOGNIZING ME. Objective - Vital Signs/Intake and Output Vital Signs (last 24 hours): Temp Pulse Resp BP Pulse Ox 97 F L 99 H 24 120/57 L 100 03/10/18 16:00 03/10/18 16:00 03/10/18 16:00 03/10/18 16:00 03/10/18 16:00 Intake and Output: 03/10/18 03/10/18 06:59 18:59 Intake Total 270 350 Output Total 700 Balance -430 350 - Medications Medications: Current Medications Acetaminophen (Tylenol 325mg Tab) 650 mg PO Q6 PRN PRN Reason: Fever >100.4 F Acetaminophen (Tylenol 325mg/10.15ml Ud) 975 mg PO Q8 PRN PRN Reason: Pain, moderate (4-7) Ascorbic Acid (Vitamin C 500 Mg Tab) 500 mg PO BID [facility] Last Admin: 03/10/18 17:01 Dose: Not Given Atorvastatin Calcium (Lipitor) 10 mg PO HS [facility] Last Admin: 03/09/18 22:15 Dose: Not Given Cholecalciferol (Vitamin D) 1,000 intlu PO DAILY [facility] Last Admin: 03/10/18 08:50 Dose: Not Given Dextrose (Dextrose 50% Inj) 0 ml IV STAT PRN; Protocol PRN Reason: Hypoglycemia Protocol Last Admin: 03/09/18 00:40 Dose: 50 ml Dextrose (Glutose 15) 0 gm PO ONCE PRN; Protocol PRN Reason: Hypoglycemia Protocol Digoxin (Digoxin) 0.125 mg PO DAILY [facility] Last Admin: 03/02/18 10:51 Dose: Not Given Dimethicone (Proshield Plus Skin Protectant) 1 applic TOP Q8 PRN PRN Reason: Rash Last Admin: 03/10/18 17:00 Dose: 1 applic Emollient Ointment (Vaseline Oint) 1 pkt TOP BID [facility] Last Admin: 03/10/18 17:00 Dose: 1 pkt Epoetin Rolo (Procrit) 40,000 unit SC WED [facility] Last Admin: 03/07/18 10:16 Dose: 40,000 unit Furosemide (Lasix) 60 mg IV Q12H [facility] Last Admin: 03/10/18 15:21 Dose: 60 mg Glucagon (Glucagen Diagnostic Kit) 0 mg IM STAT PRN; Protocol PRN Reason: Hypoglycemia Protocol Heparin Sodium (Porcine) (Heparin) 5,000 units SC Q8 [facility]; Protocol Last Admin: 03/07/18 08:42 Dose: 5,000 units Fluconazole (Diflucan Iv 100 Mg/50 Ml Ns) 50 mls @ 50 mls/hr IVPB DAILY [facility]; Protocol Last Admin: 03/10/18 08:48 Dose: 50 mls/hr Ceftaroline Fosamil 200 mg/ (Sodium Chloride) 250 mls @ 250 mls/hr IVPB Q12 [facility]; Protocol Last Admin: 03/10/18 08:49 Dose: 250 mls/hr Dextrose/Sodium Chloride (Dextrose 5%/0.9% Ns 1000 Ml) 1,000 mls @ 40 mls/hr IV .Q24H [facility] Stop: 03/11/18 13:30 Last Admin: 03/10/18 15:20 Dose: 40 mls/hr Insulin Human Regular (Humulin R) 0 units SC ACCU-CHECK [facility]; Protocol Last Admin: 03/10/18 13:11 Dose: Not Given Ipratropium [place] (Atrovent) 0.5 mg IH RQID [facility] Last Admin: 03/10/18 16:14 Dose: 0.5 mg Lactobacillus Acidophilus (Bacid Acidophilus) 1 cap PO BID [facility] Last Admin: 03/10/18 16:59 Dose: Not Given Levalbuterol HCl (Xopenex) 0.63 mg INH RQID [facility] Last Admin: 03/10/18 16:14 Dose: 0.63 mg Levothyroxine Sodium (Synthroid) 40 mcg IVP DAILY@0630 [facility] Last Admin: 03/10/18 07:03 Dose: 40 mcg Mirtazapine (Remeron) 7.5 mg PO HS [facility] Last Admin: 03/09/18 22:16 Dose: Not Given Nystatin (Nystop Topical Powder) 1 applic TOP TID [facility] Last Admin: 03/10/18 16:59 Dose: 1 appl Pantoprazole Sodium (Protonix Inj) 40 mg IVP DAILY [facility] Last Admin: 03/10/18 08:49 Dose: 40 mg Trimethoprim/Sulfamethoxazole (Bactrim Ss Tab) 1 tab PO Q12 [facility]; Protocol - Labs Labs: 03/10/18 04:12 03/10/18 04:12 PT 11.2 Seconds (9.8-13.1) 03/06/18 04:30 INR 1.0 03/06/18 04:30 APTT 41.3 Seconds (25.6-37.1) H 03/06/18 04:30
[2018-03-10] MEDS ORDERED: Tmp-Smz 400 mg-80 mg SS Tab PO SCH (21:00)
[2018-03-11 05:14] LABS: HEMOGLOBIN 9.6 g/dL (12.0-16.0); MEAN CELL VOLUME 87.2 fl (81.0-99.0); MEAN CORPUSCULAR HEMOGLOBIN 27.5 pg (27.0-31.0); MEAN CORPUSCULAR HGB CONC 31.6 g/dL (33.0-37.0); RBC 3.48 Mil/uL (3.80-5.20); RED CELL DISTRIBUTION WIDTH 19.6 % (11.5-14.5); WHITE BLOOD COUNT 18.9 K/uL (4.8-10.8)
[2018-03-11 05:48] LABS: CALCIUM 8.2 mg/dL (8.4-10.2)
[2018-03-11] MEDS: Levothyroxine 100 mcg (0.1 mg) Inj IVP SCH (06:17)
[2018-03-11] MEDS: Insulin Regular 100 units/ml SC SCH ×4 (06:23→22:35)
--- NOTE | 2018-03-11 07:37 | CP.CCUPN ---
CCU Subjective - Physician Review Events Since Last Encounter (Free Text): Patient awake, on O2 supplement, no distress, no fever, no pressors, events reviewed CCU Objective - Vital Signs / Intake & Output Vital Signs (Last 4 hours): Vital Signs Temp Pulse Resp BP Pulse Ox 03/11/18 06:00 101 H 22 158/73 H 100 03/11/18 04:00 97.9 F 101 H 23 160/77 H 100 Intake and Output (Last 8hrs): Intake & Output 03/10/18 03/11/18 03/11/18 22:59 06:59 14:59 Intake Total 335 600 Output Total 1 Balance 335 599 Weight 171 lb Intake: IV 135 350 Intake, Piggyback 200 250 Output: Urine/Stool Mix 1 - Physical Exam Head: Positive for: Atraumatic, Normocephalic Pupils: Positive for: PERRL Extroacular Muscles: Positive for: EOMI Conjunctiva: Positive for: Normal Ears: Positive for: Normal Mouth: Positive for: Moist Mucous Membranes Pharnyx: Positive for: Normal Nose (Internal): Positive for: Normal Inspection Neck: Positive for: Normal Range of Motion Respiratory/Chest: Positive for: Rhonchi Cardiovascular: Positive for: Regular Rate and Rhythm Abdomen: Positive for: Normal Bowel Sounds. Negative for: Tenderness, Distention Back: Positive for: Decubitus Ulcer Upper Extremity: Positive for: Normal Inspection Lower Extremity: Positive for: Normal Inspection Neurological: Negative for: GCS=15 Psychiatric: Positive for: Alert - Medications Active Medications: Active Medications Generic Name Dose Route Start Last Admin Trade Name Freq PRN Reason Stop Dose Admin Acetaminophen 650 mg 03/02/18 04:23 Tylenol 325mg Tab PO Q6 PRN Fever >100.4 F Acetaminophen 975 mg 03/02/18 21:45 Tylenol 325mg/10.15ml Ud PO Q8 PRN Pain, moderate (4-7) Ascorbic Acid 500 mg 03/05/18 09:00 03/10/18 17:01 Vitamin C 500 Mg Tab PO Not Given BID [facility] Atorvastatin Calcium 10 mg 03/01/18 22:00 03/10/18 22:50 Lipitor PO Not Given HS [facility] Cholecalciferol 1,000 intlu 03/02/18 09:00 03/10/18 08:50 Vitamin D PO Not Given DAILY [facility] Dextrose 0 ml 03/05/18 11:53 03/09/18 00:40 Dextrose 50% Inj IV 50 ml STAT PRN Administration Hypoglycemia Protocol Protocol Dextrose 0 gm 03/05/18 11:53 Glutose 15 PO ONCE PRN Hypoglycemia Protocol Protocol Digoxin 0.125 mg 03/02/18 09:00 03/02/18 10:51 Digoxin PO Not Given DAILY [facility] Dimethicone 1 applic 03/01/18 19:56 03/10/18 17:00 Proshield Plus Skin Protectant TOP 1 applic Q8 PRN Administration Rash Emollient Ointment 1 pkt 03/02/18 09:00 03/10/18 17:00 Vaseline Oint TOP 1 pkt BID [facility] Administration Epoetin Rolo 40,000 unit 03/07/18 09:00 03/07/18 10:16 Procrit SC 40,000 unit WED [facility] Administration Furosemide 60 mg 03/06/18 14:00 03/11/18 02:53 Lasix IV 60 mg Q12H [facility] Administration Glucagon 0 mg 03/05/18 11:53 Glucagen Diagnostic Kit IM STAT PRN Hypoglycemia Protocol Protocol Heparin Sodium (Porcine) 5,000 units 03/05/18 17:00 03/07/18 08:42 Heparin SC 5,000 units Q8 [facility] Administration Protocol Fluconazole 50 mls @ 50 mls/hr 03/05/18 13:45 03/10/18 08:48 Diflucan Iv 100 Mg/50 Ml Ns IVPB 50 mls/hr DAILY [facility] Administration Protocol Ceftaroline Fosamil 200 mg/ 250 mls @ 250 mls/hr 03/07/18 21:00 03/10/18 22:50 Sodium Chloride IVPB 250 mls/hr Q12 [facility] Administration Protocol Dextrose/Sodium Chloride 1,000 mls @ 40 mls/hr 03/10/18 13:30 03/10/18 15:20 Dextrose 5%/0.9% Ns 1000 Ml IV 03/11/18 13:30 40 mls/hr .Q24H [facility] Administration Insulin Human Regular 0 units 03/05/18 12:00 03/11/18 06:23 Humulin R SC Not Given ACCU-CHECK [facility] Protocol Ipratropium [place] 0.5 mg 03/01/18 20:00 03/10/18 19:06 Atrovent IH 0.5 mg RQID [facility] Administration Lactobacillus Acidophilus 1 cap 03/02/18 09:00 03/10/18 16:59 Bacid Acidophilus PO Not Given BID [facility] Levalbuterol HCl 0.63 mg 03/03/18 12:00 03/10/18 19:06 Xopenex INH 0.63 mg RQID [facility] Administration Levothyroxine Sodium 40 mcg 03/03/18 06:30 03/11/18 06:17 Synthroid IVP 40 mcg DAILY@0630 [facility] Administration Mirtazapine 7.5 mg 03/01/18 22:00 03/10/18 22:50 Remeron PO Not Given HS [facility] Nystatin 1 applic 03/02/18 17:00 03/10/18 16:59 Nystop Topical Powder TOP 1 appl TID [facility] Administration Pantoprazole Sodium 40 mg 03/03/18 09:00 03/10/18 08:49 Protonix Inj IVP 40 mg DAILY [facility] Administration - Patient Studies Lab Studies: Lab Studies 03/11/18 03/11/18 03/11/18 Range/Units 06:21 04:25 04:25 WBC 18.9 H (4.8-10.8) K/uL RBC 3.48 L (3.80-5.20) Mil/uL Hgb 9.6 L (12.0-16.0) g/dL Hct 30.3 L (34.0-47.0) % MCV 87.2 (81.0-99.0) fl MCH 27.5 (27.0-31.0) pg MCHC 31.6 L (33.0-37.0) g/dL RDW 19.6 H (11.5-14.5) % Plt Count 86 L (130-400) K/uL Sodium 134 (132-148) mmol/l Potassium 3.2 L (3.6-5.0) MMOL/L Chloride 107 (98-107) mmol/L Carbon Dioxide 16 L (22-30) mmol/L Anion Gap 14 (10-20) BUN 32 H (7-17) mg/dl Creatinine 1.8 H (0.7-1.2) mg/dl Est GFR ( Amer) 33 Est GFR (Non-Af Amer) 27 POC Glucose (mg/dL) 117 H (65-110) mg/dL Random Glucose 105 (65-105) mg/dL Calcium 8.2 L (8.4-10.2) mg/dL Random Gentamicin ug/mL 03/10/18 03/10/18 03/10/18 Range/Units 21:27 17:04 12:02 WBC (4.8-10.8) K/uL RBC (3.80-5.20) Mil/uL Hgb (12.0-16.0) g/dL Hct (34.0-47.0) % MCV (81.0-99.0) fl MCH (27.0-31.0) pg MCHC (33.0-37.0) g/dL RDW (11.5-14.5) % Plt Count (130-400) K/uL Sodium (132-148) mmol/l Potassium (3.6-5.0) MMOL/L Chloride (98-107) mmol/L Carbon Dioxide (22-30) mmol/L Anion Gap (10-20) BUN (7-17) mg/dl Creatinine (0.7-1.2) mg/dl Est GFR ( Amer) Est GFR (Non-Af Amer) POC Glucose (mg/dL) 115 H 98 82 (65-110) mg/dL Random Glucose (65-105) mg/dL Calcium (8.4-10.2) mg/dL Random Gentamicin ug/mL 03/10/18 Range/Units 04:12 WBC (4.8-10.8) K/uL RBC (3.80-5.20) Mil/uL Hgb (12.0-16.0) g/dL Hct (34.0-47.0) % MCV (81.0-99.0) fl MCH (27.0-31.0) pg MCHC (33.0-37.0) g/dL RDW (11.5-14.5) % Plt Count (130-400) K/uL Sodium (132-148) mmol/l Potassium (3.6-5.0) MMOL/L Chloride (98-107) mmol/L Carbon Dioxide (22-30) mmol/L Anion Gap (10-20) BUN (7-17) mg/dl Creatinine (0.7-1.2) mg/dl Est GFR ( Amer) Est GFR (Non-Af Amer) POC Glucose (mg/dL) (65-110) mg/dL Random Glucose (65-105) mg/dL Calcium (8.4-10.2) mg/dL Random Gentamicin 4.0 ug/mL Laboratory Results - last 24 hr 03/10/18 03/10/18 03/10/18 04:12 12:02 17:04 WBC RBC Hgb Hct MCV MCH MCHC RDW Plt Count Sodium Potassium Chloride Carbon Dioxide Anion Gap BUN Creatinine Est GFR ( Amer) Est GFR (Non-Af Amer) POC Glucose (mg/dL) 82 98 Random Glucose Calcium Random Gentamicin 4.0 03/10/18 03/11/18 03/11/18 21:27 04:25 04:25 WBC 18.9 H RBC 3.48 L Hgb 9.6 L Hct 30.3 L MCV 87.2 MCH 27.5 MCHC 31.6 L RDW 19.6 H Plt Count 86 L Sodium 134 Potassium 3.2 L Chloride 107 Carbon Dioxide 16 L Anion Gap 14 BUN 32 H Creatinine 1.8 H Est GFR ( Amer) 33 Est GFR (Non-Af Amer) 27 POC Glucose (mg/dL) 115 H Random Glucose 105 Calcium 8.2 L Random Gentamicin 03/11/18 06:21 WBC RBC Hgb Hct MCV MCH MCHC RDW Plt Count Sodium Potassium Chloride Carbon Dioxide Anion Gap BUN Creatinine Est GFR ( Amer) Est GFR (Non-Af Amer) POC Glucose (mg/dL) 117 H Random Glucose Calcium Random Gentamicin Fingerstick Blood Sugar Results: 117 Critical Care Progress Note - Nutrition Nutrition: Nutrition Category Date Time Status NPO Diet [DIET] Diets 03/03/18 Breakfast Active Assessment/Plan - Assessment and Plan (Free Text) Assessment: A/P Acute respiratory failure improved, pulmonary edema, ? pneumonia, acute on CKD, A Fib, B cell lymphoma, MDS - O2 supplement - Pulmonary toilets - Continue meds - Hematology follow up
[2018-03-11] MEDS: Ipratropium 0.02% Inhal Soln (0.5 mg/2.5 ml) UD IH SCH ×4 (07:56→20:18)
[2018-03-11] MEDS: Levalbuterol 0.63 MG/3 ML Inhal Soln UD INH SCH ×4 (07:56→20:18)
[2018-03-11] MEDS ORDERED: Potassium Chloride 20 mEq/15 ml LIQ UD PO ONE (08:12)
[2018-03-11] MEDS: Lactobacillus Acidophilus 500 MU Cap PO SCH ×2 (09:17→17:19)
[2018-03-11] MEDS: Fluconazole IV 100mg/50 ml NS 50 ML IVPB SCH (09:18)
[2018-03-11] MEDS: Proshield Plus GEL TOP PRN (09:19)
[2018-03-11] MEDS: Cholecalciferol 1,000 INTLU TAB PO SCH (09:20)
[2018-03-11] MEDS: Petrolatum UD PAK TOP SCH ×2 (09:20→17:25)
[2018-03-11] MEDS: SODIUM CHLORIDE 0.9% IVPB SCH ×2 (09:22→20:57)
[2018-03-11] MEDS: CEFTAROLINE IVPB SCH ×2 (09:22→20:57)
[2018-03-11] MEDS: Potassium Chloride 20 mEq 100 ML IVPB SCH ×2 (09:25→11:31)
--- NOTE | 2018-03-11 09:45 | CP.PCM.PN ---
Subjective - Date & Time of Evaluation Date of Evaluation: 03/11/18 Time of Evaluation: 11:34 - Subjective Subjective: Patient seen and examined at bedside this morning. Patient unarousable to voice but grimaces and tries to open eyes w/ painful stimuli. Extubated successfully. Remains on tube feed Objective - Vital Signs/Intake and Output Vital Signs (last 24 hours): Temp Pulse Resp BP Pulse Ox 97.2 F L 101 H 22 142/62 100 03/11/18 08:00 03/11/18 08:00 03/11/18 08:00 03/11/18 08:00 03/11/18 08:00 Intake and Output: 03/11/18 03/11/18 06:59 18:59 Intake Total 735 Output Total 1 Balance 734 - Medications Medications: Current Medications Acetaminophen (Tylenol 325mg Tab) 650 mg PO Q6 PRN PRN Reason: Fever >100.4 F Acetaminophen (Tylenol 325mg/10.15ml Ud) 975 mg PO Q8 PRN PRN Reason: Pain, moderate (4-7) Ascorbic Acid (Vitamin C 500 Mg Tab) 500 mg PO BID [facility] Last Admin: 03/11/18 09:20 Dose: Not Given Atorvastatin Calcium (Lipitor) 10 mg PO HS [facility] Last Admin: 03/10/18 22:50 Dose: Not Given Cholecalciferol (Vitamin D) 1,000 intlu PO DAILY [facility] Last Admin: 03/11/18 09:20 Dose: Not Given Dextrose (Dextrose 50% Inj) 0 ml IV STAT PRN; Protocol PRN Reason: Hypoglycemia Protocol Last Admin: 03/09/18 00:40 Dose: 50 ml Dextrose (Glutose 15) 0 gm PO ONCE PRN; Protocol PRN Reason: Hypoglycemia Protocol Digoxin (Digoxin) 0.125 mg PO DAILY [facility] Last Admin: 03/02/18 10:51 Dose: Not Given Dimethicone (Proshield Plus Skin Protectant) 1 applic TOP Q8 PRN PRN Reason: Rash Last Admin: 03/11/18 09:19 Dose: 1 applic Emollient Ointment (Vaseline Oint) 1 pkt TOP BID [facility] Last Admin: 03/11/18 09:20 Dose: 1 pkt Epoetin Rolo (Procrit) 40,000 unit SC WED [facility] Last Admin: 03/07/18 10:16 Dose: 40,000 unit Furosemide (Lasix) 60 mg IV Q12H [facility] Last Admin: 03/11/18 02:53 Dose: 60 mg Glucagon (Glucagen Diagnostic Kit) 0 mg IM STAT PRN; Protocol PRN Reason: Hypoglycemia Protocol Heparin Sodium (Porcine) (Heparin) 5,000 units SC Q8 [facility]; Protocol Last Admin: 03/07/18 08:42 Dose: 5,000 units Fluconazole (Diflucan Iv 100 Mg/50 Ml Ns) 50 mls @ 50 mls/hr IVPB DAILY [facility]; Protocol Last Admin: 03/11/18 09:18 Dose: 50 mls/hr Ceftaroline Fosamil 200 mg/ (Sodium Chloride) 250 mls @ 250 mls/hr IVPB Q12 [facility]; Protocol Last Admin: 03/11/18 09:22 Dose: 250 mls/hr Dextrose/Sodium Chloride (Dextrose 5%/0.9% Ns 1000 Ml) 1,000 mls @ 40 mls/hr IV .Q24H [facility] Stop: 03/11/18 13:30 Last Admin: 03/10/18 15:20 Dose: 40 mls/hr Potassium Chloride (Potassium Chloride 20 Meq/100 Ml) 100 mls @ 50 mls/hr IVPB Q2 [facility] Stop: 03/11/18 13:59 Last Admin: 03/11/18 09:25 Dose: 50 mls/hr Insulin Human Regular (Humulin R) 0 units SC ACCU-CHECK [facility]; Protocol Last Admin: 03/11/18 06:23 Dose: Not Given Ipratropium [place] (Atrovent) 0.5 mg IH RQID [facility] Last Admin: 03/11/18 07:56 Dose: 0.5 mg Lactobacillus Acidophilus (Bacid Acidophilus) 1 cap PO BID [facility] Last Admin: 03/11/18 09:17 Dose: Not Given Levalbuterol HCl (Xopenex) 0.63 mg INH RQID [facility] Last Admin: 03/11/18 07:56 Dose: 0.63 mg Levothyroxine Sodium (Synthroid) 40 mcg IVP DAILY@0630 [facility] Last Admin: 03/11/18 06:17 Dose: 40 mcg Mirtazapine (Remeron) 7.5 mg PO HS [facility] Last Admin: 03/10/18 22:50 Dose: Not Given Nystatin (Nystop Topical Powder) 1 applic TOP TID [facility] Last Admin: 03/11/18 09:19 Dose: 1 appl Pantoprazole Sodium (Protonix Inj) 40 mg IVP DAILY [facility] Last Admin: 03/11/18 09:25 Dose: 40 mg - Labs Labs: 03/11/18 04:25 03/11/18 04:25 PT 11.2 Seconds (9.8-13.1) 03/06/18 04:30 INR 1.0 03/06/18 04:30 APTT 41.3 Seconds (25.6-37.1) H 03/06/18 04:30 - Constitutional Appears: No Acute Distress - Head Exam Head Exam: NORMAL INSPECTION Additional comments: superficial skin breakdown on bilateral cheeks on face due to venturi mask - Eye Exam Eye Exam: Normal appearance - ENT Exam ENT Exam: Mucous Membranes Moist - Respiratory Exam Respiratory Exam: Decreased Breath Sounds, Rhonchi. absent: Wheezes, Respir atory Distress - Cardiovascular Exam Cardiovascular Exam: REGULAR RHYTHM, +S1, +S2. absent: Murmur - GI/Abdominal Exam GI & Abdominal Exam: Soft, Normal Bowel Sounds. absent: Distended Additional comments: patient winces w/ palpation - Extremities Exam Extremities Exam: absent: Pedal Edema - Neurological Exam Neurological Exam: absent: Alert, Awake - Skin Skin Exam: Dry, Normal Color Assessment and Plan - Assessment and Plan (Free Text) Assessment: 77 y/o woman w/ pmh of HTN, CAD s/p CABG, atrial fibrillation (not on anticoagulation due to thrombocytopenia), B cell lymphoma, MDS s/p chemo with pancytopenia , SIADH was admitted to [facility] for evaluation and treatment of bilateral pneumonia and possible c.diff. Pt went into respiratory failure and was placed on mechanical ventilation on 03/02. Pt is DNR as discussed with family. Plan: Respiratory Failure - Extubated - O2 100% NC - removes venti mask - Nasal cannula @ 4L - Pulmonology, Dr. Vazquez, recommendations appreciated Sepsis - Resolved - Improving. Afebrile, Leukocytosis 18.9 Lactic Acid 1.6, Metabolic Acidosis apparent in ABG. - X-Ray (03/01): Limited left pleural effusion stable. Small right pleural effusion not excluded. Borderline pulmonary vascular congestion. - Cxray (03/06): Improvement seen in R pleural effusion. - Wound CX (Sacral Decubitus Ulcer): Growing MDR Klebsiella Pneu (Sensitive to Gentamycin) & Vanco Resistant Enterococcus Faecium (sensitive to Zyvox) - Trach Asp Cx: Yeast species, Trach Asp Cx (03/07): GNR,Yeast - IVF D5 NS @ 40 mL/hr - S/P Meropenem 1gm IV Q8 x 1 day - C/W Ceftaroline 3000mg q12 (Day 9) - C/W Gentamycin 60mg/50cc q24hr (Day 5), held due to elevated gentamicin trough - C/W Zyvox 600mg in D5W today (Day 3, HELD due to thrombocytopenia) - C/W Flucanazole 100mg daily (Day 7) - Discontinue Hydrocortisone, Vitamin C, and Thiamine as pt is no longer in septic shock - ID Dr. Pelletier on board Distended Abdomen - CT Abdomen: Moderate Ascites - C/W Diuresis - Continue OG feeds Anascara - Third spacing secondary to fluid resuscitation w/ negative fluid balance vs severe protein malnutrition - S/P Albumin and Diuresis w/ Lasix 60mg IV q12 Decubitus ulcer - Wound care on case, reconsulted for wound care of right cheek - Re-Positioning every 2 hour Hyperglycemia - No hx of DM - Likely secondary to IV Steroids. Hydrocortisone discontinued - Levemir discontinued B-cell lymphoma / MDS (myelodysplastic syndrome) - On chemo - F/u Hematology/oncology consult Dr De Dios - Continue with Procrit Chronic A-fib - All antihypertensive held due to patients low blood pressure - no anticoagulation due to thrombocytopenia (Stable) COPD chronic - c/w Atrovent and Xopenex - Shena Jaquez - Incentive Shoaib Hypothyroid - Chronic, controlled - C/W Levothyroxine 75mcg daily CKD stage III - stable Hearing loss - possible medication induced or age related - out pt follow up DVT PPX - SCD's for now, thrombocytopenia GI ppx - Protonix 40mg po daily Code status: DNR discuss w/ family regarding hospice care
[2018-03-11 16:08] LABS: CALCIUM 7.6 mg/dL (8.4-10.2)
[2018-03-11] MEDS: Dextrose 5%/0.9% NS 1,000 ML IV SCH (17:32)
--- NOTE | 2018-03-11 19:54 | CP.PCM.PN ---
Subjective - Date & Time of Evaluation Date of Evaluation: 03/11/18 Time of Evaluation: 19:50 - Subjective Subjective: I D NOTE CONTINUES TO BE OFF RESPIRATOR RESPONSIVE BUT LETHARGIC CREATININE :1.7,GFR:29 PLATELETS:86(MILDLY TRENDING UPWARD) CONTINUE TEFLARO.HOIDING GENTAMICIN AT PRESENT BUT RANDOM LEVEL IS 2.6 HAVE ADDED I DOSE OF CEEFPIME FOR [employer] Objective - Vital Signs/Intake and Output Vital Signs (last 24 hours): Temp Pulse Resp BP Pulse Ox 98.3 F 104 H 38 H 160/78 H 100 03/11/18 16:00 03/11/18 17:54 03/11/18 17:54 03/11/18 17:54 03/11/18 17:54 Intake and Output: 03/11/18 03/12/18 18:59 06:59 Intake Total 870 Output Total 900 Balance -30 - Medications Medications: Current Medications Acetaminophen (Tylenol 325mg Tab) 650 mg PO Q6 PRN PRN Reason: Fever >100.4 F Acetaminophen (Tylenol 325mg/10.15ml Ud) 975 mg PO Q8 PRN PRN Reason: Pain, moderate (4-7) Ascorbic Acid (Vitamin C 500 Mg Tab) 500 mg PO BID [facility] Last Admin: 03/11/18 17:25 Dose: Not Given Atorvastatin Calcium (Lipitor) 10 mg PO HS [facility] Last Admin: 03/10/18 22:50 Dose: Not Given Cholecalciferol (Vitamin D) 1,000 intlu PO DAILY [facility] Last Admin: 03/11/18 09:20 Dose: Not Given Dextrose (Dextrose 50% Inj) 0 ml IV STAT PRN; Protocol PRN Reason: Hypoglycemia Protocol Last Admin: 03/09/18 00:40 Dose: 50 ml Dextrose (Glutose 15) 0 gm PO ONCE PRN; Protocol PRN Reason: Hypoglycemia Protocol Digoxin (Digoxin) 0.125 mg PO DAILY [facility] Last Admin: 03/02/18 10:51 Dose: Not Given Dimethicone (Proshield Plus Skin Protectant) 1 applic TOP Q8 PRN PRN Reason: Rash Last Admin: 03/11/18 09:19 Dose: 1 applic Emollient Ointment (Vaseline Oint) 1 pkt TOP BID [facility] Last Admin: 03/11/18 17:25 Dose: 1 pkt Epoetin Rolo (Procrit) 40,000 unit SC WED [facility] Last Admin: 03/07/18 10:16 Dose: 40,000 unit Furosemide (Lasix) 60 mg IV Q12H [facility] Last Admin: 03/11/18 17:22 Dose: 60 mg Glucagon (Glucagen Diagnostic Kit) 0 mg IM STAT PRN; Protocol PRN Reason: Hypoglycemia Protocol Heparin Sodium (Porcine) (Heparin) 5,000 units SC Q8 [facility]; Protocol Last Admin: 03/07/18 08:42 Dose: 5,000 units Fluconazole (Diflucan Iv 100 Mg/50 Ml Ns) 50 mls @ 50 mls/hr IVPB DAILY [facility]; Protocol Last Admin: 03/11/18 09:18 Dose: 50 mls/hr Ceftaroline Fosamil 200 mg/ (Sodium Chloride) 250 mls @ 250 mls/hr IVPB Q12 [facility]; Protocol Last Admin: 03/11/18 09:22 Dose: 250 mls/hr Insulin Human Regular (Humulin R) 0 units SC ACCU-CHECK [facility]; Protocol Last Admin: 03/11/18 17:29 Dose: Not Given Ipratropium [place] (Atrovent) 0.5 mg IH RQID [facility] Last Admin: 03/11/18 15:04 Dose: 0.5 mg Lactobacillus Acidophilus (Bacid Acidophilus) 1 cap PO BID [facility] Last Admin: 03/11/18 17:19 Dose: Not Given Levalbuterol HCl (Xopenex) 0.63 mg INH RQID [facility] Last Admin: 03/11/18 15:04 Dose: 0.63 mg Levothyroxine Sodium (Synthroid) 40 mcg IVP DAILY@0630 [facility] Last Admin: 03/11/18 06:17 Dose: 40 mcg Mirtazapine (Remeron) 7.5 mg PO HS [facility] Last Admin: 03/10/18 22:50 Dose: Not Given Nystatin (Nystop Topical Powder) 1 applic TOP TID [facility] Last Admin: 03/11/18 17:24 Dose: 1 appl Pantoprazole Sodium (Protonix Inj) 40 mg IVP DAILY [facility] Last Admin: 03/11/18 09:25 Dose: 40 mg - Labs Labs: 03/11/18 04:25 03/11/18 15:15 PT 11.2 Seconds (9.8-13.1) 03/06/18 04:30 INR 1.0 03/06/18 04:30 APTT 41.3 Seconds (25.6-37.1) H 03/06/18 04:30
[2018-03-12 05:36] LABS: HEMOGLOBIN 9.2 g/dL (12.0-16.0); MEAN CELL VOLUME 87.5 fl (81.0-99.0); MEAN CORPUSCULAR HEMOGLOBIN 27.3 pg (27.0-31.0); MEAN CORPUSCULAR HGB CONC 31.2 g/dL (33.0-37.0); RBC 3.36 Mil/uL (3.80-5.20); RED CELL DISTRIBUTION WIDTH 19.7 % (11.5-14.5); WHITE BLOOD COUNT 20.8 K/uL (4.8-10.8)
[2018-03-12 05:56] LABS: CALCIUM 7.6 mg/dL (8.4-10.2)
[2018-03-12] MEDS: Levothyroxine 100 mcg (0.1 mg) Inj IVP SCH (07:03)
[2018-03-12] MEDS: Insulin Regular 100 units/ml SC SCH ×4 (07:04→22:35)
--- NOTE | 2018-03-12 07:20 | CP.PCM.PN ---
<Ran Dennison - Last Filed: 03/12/18 10:42> Subjective - Date & Time of Evaluation Date of Evaluation: 03/12/18 Time of Evaluation: 10:43 - Subjective Subjective: Patient seen and examined at bedside this morning. Patient more awake today and making eye contact. Patient attempting inaudible speech. Extubated successfu lly. Remains on tube feed. Plow Mechanic spoke w/ daughter and confirmed code status and approved PEG placement. Objective - Vital Signs/Intake and Output Vital Signs (last 24 hours): Temp Pulse Resp BP Pulse Ox 98.3 F 104 H 38 H 163/73 H 100 03/11/18 16:00 03/11/18 17:54 03/11/18 17:54 03/12/18 01:30 03/11/18 17:54 - Medications Medications: Current Medications Acetaminophen (Tylenol 325mg Tab) 650 mg PO Q6 PRN PRN Reason: Fever >100.4 F Acetaminophen (Tylenol 325mg/10.15ml Ud) 975 mg PO Q8 PRN PRN Reason: Pain, moderate (4-7) Ascorbic Acid (Vitamin C 500 Mg Tab) 500 mg PO BID [facility] Last Admin: 03/11/18 17:25 Dose: Not Given Atorvastatin Calcium (Lipitor) 10 mg PO HS [facility] Last Admin: 03/11/18 21:00 Dose: Not Given Cholecalciferol (Vitamin D) 1,000 intlu PO DAILY [facility] Last Admin: 03/11/18 09:20 Dose: Not Given Dextrose (Dextrose 50% Inj) 0 ml IV STAT PRN; Protocol PRN Reason: Hypoglycemia Protocol Last Admin: 03/09/18 00:40 Dose: 50 ml Dextrose (Glutose 15) 0 gm PO ONCE PRN; Protocol PRN Reason: Hypoglycemia Protocol Digoxin (Digoxin) 0.125 mg PO DAILY [facility] Last Admin: 03/02/18 10:51 Dose: Not Given Dimethicone (Proshield Plus Skin Protectant) 1 applic TOP Q8 PRN PRN Reason: Rash Last Admin: 03/11/18 09:19 Dose: 1 applic Emollient Ointment (Vaseline Oint) 1 pkt TOP BID [facility] Last Admin: 03/11/18 17:25 Dose: 1 pkt Epoetin Rolo (Procrit) 40,000 unit SC WED [facility] Last Admin: 03/07/18 10:16 Dose: 40,000 unit Furosemide (Lasix) 60 mg IV Q12H [facility] Last Admin: 03/12/18 01:30 Dose: 60 mg Glucagon (Glucagen Diagnostic Kit) 0 mg IM STAT PRN; Protocol PRN Reason: Hypoglycemia Protocol Heparin Sodium (Porcine) (Heparin) 5,000 units SC Q8 [facility]; Protocol Last Admin: 03/07/18 08:42 Dose: 5,000 units Fluconazole (Diflucan Iv 100 Mg/50 Ml Ns) 50 mls @ 50 mls/hr IVPB DAILY [facility]; Protocol Last Admin: 03/11/18 09:18 Dose: 50 mls/hr Ceftaroline Fosamil 200 mg/ (Sodium Chloride) 250 mls @ 250 mls/hr IVPB Q12 [facility]; Protocol Last Admin: 03/11/18 20:57 Dose: 250 mls/hr Potassium Chloride (Potassium Chloride 20 Meq/100 Ml) 100 mls @ 50 mls/hr IVPB Q2 [facility] Stop: 03/12/18 11:59 Insulin Human Regular (Humulin R) 0 units SC ACCU-CHECK [facility]; Protocol Last Admin: 03/12/18 07:04 Dose: Not Given Ipratropium [place] (Atrovent) 0.5 mg IH RQID [facility] Last Admin: 03/11/18 20:18 Dose: 0.5 mg Lactobacillus Acidophilus (Bacid Acidophilus) 1 cap PO BID [facility] Last Admin: 03/11/18 17:19 Dose: Not Given Levalbuterol HCl (Xopenex) 0.63 mg INH RQID [facility] Last Admin: 03/11/18 20:18 Dose: 0.63 mg Levothyroxine Sodium (Synthroid) 40 mcg IVP DAILY@0630 [facility] Last Admin: 03/12/18 07:03 Dose: 40 mcg Mirtazapine (Remeron) 7.5 mg PO HS [facility] Last Admin: 03/11/18 20:59 Dose: Not Given Nystatin (Nystop Topical Powder) 1 applic TOP TID [facility] Last Admin: 03/11/18 17:24 Dose: 1 appl Pantoprazole Sodium (Protonix Inj) 40 mg IVP DAILY [facility] Last Admin: 03/11/18 09:25 Dose: 40 mg - Labs Labs: 03/12/18 04:30 03/12/18 04:30 PT 11.2 Seconds (9.8-13.1) 03/06/18 04:30 INR 1.0 03/06/18 04:30 APTT 41.3 Seconds (25.6-37.1) H 03/06/18 04:30 - Constitutional Appears: No Acute Distress - Head Exam Head Exam: NORMAL INSPECTION Additional comments: superficial skin breakdown on bilateral cheeks on face due to venturi mask - Eye Exam Eye Exam: Normal appearance - ENT Exam ENT Exam: Mucous Membranes Dry - Respiratory Exam Respiratory Exam: Decreased Breath Sounds, Rhonchi. absent: Wheezes, Respiratory Distress - Cardiovascular Exam Cardiovascular Exam: REGULAR RHYTHM. absent: Murmur - GI/Abdominal Exam GI & Abdominal Exam: Soft, Normal Bowel Sounds. absent: Distended Additional comments: patient winces w/ palpation - Extremities Exam Extremities Exam: absent: Pedal Edema - Neurological Exam Neurological Exam: Awake. absent: Alert, Oriented x3 - Skin Skin Exam: Dry Assessment and Plan - Assessment and Plan (Free Text) Assessment: 77 y/o woman w/ pmh of HTN, CAD s/p CABG, atrial fibrillation (not on anticoagulation due to thrombocytopenia), B cell lymphoma, MDS s/p chemo with pancytopenia , SIADH was admitted to [facility] for evaluation and treatment of bilateral pneumonia and possible c.diff. Pt went into respiratory failure and was placed on mechanical ventilation on 03/02. Pt is DNR/DNI as discussed with family. Plan: Respiratory Failure - Extubated - O2 100% NC - removes venti mask - Nasal cannula @ 4L - Pulmonology, Dr. Vazquez, recommendations appreciated Sepsis - Resolved - Improving. Afebrile, Leukocytosis 18.9 Lactic Acid 1.6, Metabolic Acidosis apparent in ABG. - X-Ray (03/01): Limited left pleural effusion stable. Small right pleural effusion not excluded. Borderline pulmonary vascular congestion. - Cxray (03/06): Improvement seen in R pleural effusion. - Wound CX (Sacral Decubitus Ulcer): Growing MDR Klebsiella Pneu (Sensitive to Gentamycin) & Vanco Resistant Enterococcus Faecium (sensitive to Zyvox) - Trach Asp Cx: Yeast species, Trach Asp Cx (03/07): GNR,Yeast - IVF D5 NS @ 40 mL/hr - S/P Meropenem 1gm IV Q8 x 1 day - given 1 dose of cefepime 0.[address] Suggs - C/W Ceftaroline 3000mg q12 (Day 10) - C/W Gentamycin 60mg/50cc q24hr (Day 5), held due to elevated gentamicin trough - C/W Zyvox 600mg in D5W today (Day 3, HELD due to thrombocytopenia) - C/W Flucanazole 100mg daily (Day 8) - Discontinue Hydrocortisone, Vitamin C, and Thiamine as pt is no longer in septic shock - ID Dr. Pelletier on board Distended Abdomen - CT Abdomen: Moderate Ascites - C/W Diuresis - Continue OG feeds [place] - Third spacing secondary to fluid resuscitation w/ negative fluid balance vs severe protein malnutrition - S/P Albumin and Diuresis w/ Lasix 60mg IV q12 Decubitus ulcer - Wound care on case, reconsulted for wound care of right cheek - Re-Positioning every 2 hour Hyperglycemia - No hx of DM - Likely secondary to IV Steroids. Hydrocortisone discontinued - Levemir discontinued B-cell lymphoma / MDS (myelodysplastic syndrome) - On chemo - F/u Hematology/oncology consult Dr De Dios - Continue with Procrit Chronic A-fib - All antihypertensive held due to patients low blood pressure - no anticoagulation due to thrombocytopenia (Stable) COPD chronic - c/w Atrovent and Xopenex - Tessala Perles - Incentive [place] Hypothyroid - Chronic, controlled - C/W Levothyroxine 75mcg daily CKD stage III - stable Hearing loss - possible medication induced or age related - out pt follow up DVT PPX - SCD's for now, thrombocytopenia GI ppx - Protonix 40mg PO daily Code status: DNR/DNI daughter declines hospice care daughter agrees to PEG placement <Malu Berrios - Last Filed: 03/12/18 14:35> Objective - Vital Signs/Intake and Output Vital Signs (last 24 hours): Temp Pulse Resp BP Pulse Ox 97.2 F L 107 H 26 H 140/74 100 03/12/18 12:00 03/12/18 14:00 03/12/18 14:00 03/12/18 14:00 03/12/18 14:00 Intake and Output: 03/12/18 03/12/18 06:59 18:59 Intake Total 735 560 Output Total 552 Balance 183 560 - Medications Medications: Current Medications Acetaminophen (Tylenol 325mg Tab) 650 mg PO Q6 PRN PRN Reason: Fever >100.4 F Acetaminophen (Tylenol 325mg/10.15ml Ud) 975 mg PO Q8 PRN PRN Reason: Pain, moderate (4-7) Ascorbic Acid (Vitamin C 500 Mg Tab) 500 mg PO BID [facility] Last Admin: 03/12/18 08:49 Dose: Not Given Atorvastatin Calcium (Lipitor) 10 mg PO HS [facility] Last Admin: 03/11/18 21:00 Dose: Not Given Cholecalciferol (Vitamin D) 1,000 intlu PO DAILY [facility] Last Admin: 03/12/18 08:49 Dose: Not Given Dextrose (Dextrose 50% Inj) 0 ml IV STAT PRN; Protocol PRN Reason: Hypoglycemia Protocol Last Admin: 03/09/18 00:40 Dose: 50 ml Dextrose (Glutose 15) 0 gm PO ONCE PRN; Protocol PRN Reason: Hypoglycemia Protocol Digoxin (Digoxin) 0.125 mg PO DAILY [facility] Last Admin: 03/02/18 10:51 Dose: Not Given Dimethicone (Proshield Plus Skin Protectant) 1 applic TOP Q8 PRN PRN Reason: Rash Last Admin: 03/11/18 09:19 Dose: 1 applic Emollient Ointment (Vaseline Oint) 1 pkt TOP BID [facility] Last Admin: 03/12/18 08:58 Dose: 1 pkt Epoetin Rolo (Procrit) 40,000 unit SC WED [facility] Last Admin: 03/07/18 10:16 Dose: 40,000 unit Furosemide (Lasix) 40 mg PO DAILY [facility] Glucagon (Glucagen Diagnostic Kit) 0 mg IM STAT PRN; Protocol PRN Reason: Hypoglycemia Protocol Heparin Sodium (Porcine) (Heparin) 5,000 units SC Q8 [facility]; Protocol Last Admin: 03/07/18 08:42 Dose: 5,000 units Fluconazole (Diflucan Iv 100 Mg/50 Ml Ns) 50 mls @ 50 mls/hr IVPB DAILY [facility]; Protocol Last Admin: 03/12/18 08:54 Dose: 50 mls/hr Ceftaroline Fosamil 200 mg/ (Sodium Chloride) 250 mls @ 250 mls/hr IVPB Q12 [facility]; Protocol Last Admin: 03/12/18 08:51 Dose: 250 mls/hr Gentamicin Sulfate 40 mg/ (Sodium Chloride) 51 mls @ 51 mls/hr IVPB Q24H [facility]; Protocol Last Admin: 03/12/18 13:35 Dose: 51 mls/hr Insulin Human Regular (Humulin R) 0 units SC ACCU-CHECK [facility]; Protocol Last Admin: 03/12/18 12:16 Dose: Not Given Ipratropium Ecker[place] (Atrovent) 0.5 mg IH RQID [facility] Last Admin: 03/12/18 11:01 Dose: 0.5 mg Lactobacillus Acidophilus (Bacid Acidophilus) 1 cap PO BID [facility] Last Admin: 03/12/18 08:48 Dose: Not Given Levalbuterol HCl (Xopenex) 0.63 mg INH RQID [facility] Last Admin: 03/12/18 11:01 Dose: 0.63 mg Levothyroxine Sodium (Synthroid) 40 mcg IVP DAILY@0630 [facility] Last Admin: 03/12/18 07:03 Dose: 40 mcg Mirtazapine (Remeron) 7.5 mg PO HS [facility] Last Admin: 03/11/18 20:59 Dose: Not Given Nystatin (Nystop Topical Powder) 1 applic TOP TID [facility] Last Admin: 03/12/18 12:14 Dose: 1 appl Pantoprazole Sodium (Protonix Inj) 40 mg IVP DAILY [facility] Last Admin: 03/12/18 08:53 Dose: 40 mg Sodium Bicarbonate (Sodium Bicarbonate Tab) 650 mg PO Q8 [facility] Last Admin: 03/12/18 08:48 Dose: Not Given - Labs Labs: 03/12/18 04:30 03/12/18 04:30 PT 11.2 Seconds (9.8-13.1) 03/06/18 04:30 INR 1.0 03/06/18 04:30 APTT 41.3 Seconds (25.6-37.1) H 03/06/18 04:30 Attending/Attestation - Attestation I have personally seen and examined this patient.: Yes I have fully participated in the care of the patient.: Yes I have reviewed all pertinent clinical information, including history, physical exam and plan: Yes
[2018-03-12] MEDS: Ipratropium 0.02% Inhal Soln (0.5 mg/2.5 ml) UD IH SCH ×4 (07:32→19:13)
[2018-03-12] MEDS: Levalbuterol 0.63 MG/3 ML Inhal Soln UD INH SCH ×4 (07:32→19:13)
--- NOTE | 2018-03-12 07:59 | CP.CCUPN ---
CCU Subjective - Physician Review Subjective (Free Text): 03/12/18 The patient was Seen and examined by me at the bedside during ICU round, Medical records reviewed and Management issues were discussed and formulated with the house staff. Events reviewed Patient awake, Comfortable, no distress, NAD Saturating 100% on O2 supplement, No fever/chills, no pressors Afebrile, NSR on the monitor Tracheal aspirate positive for Enterobacter Gergobacter and yeast Tolerating IV antibiotics Pt's current status is discussed with pt / pt's daughter, patient is DNR/DNI, holding off hospice evaluations, Also she is in agreement for PEG tube placement, GI consulted CCU Objective - Physical Exam Head: Positive for: Atraumatic, Normocephalic Pupils: Positive for: PERRL Extroacular Muscles: Positive for: EOMI Conjunctiva: Positive for: Normal Ears: Positive for: Normal Mouth: Positive for: Moist Mucous Membranes Pharnyx: Positive for: Normal Nose (Internal): Positive for: Normal Inspection Neck: Positive for: Normal Range of Motion Respiratory/Chest: Positive for: Rhonchi Cardiovascular: Positive for: Regular Rate and Rhythm Abdomen: Positive for: Normal Bowel Sounds. Negative for: Tenderness, Distention Back: Positive for: Decubitus Ulcer Upper Extremity: Positive for: Normal Inspection Lower Extremity: Positive for: Normal Inspection Neurological: Negative for: GCS=15 Psychiatric: Positive for: Alert - Medications Active Medications: Active Medications Generic Name Dose Route Start Last Admin Trade Name Freq PRN Reason Stop Dose Admin Acetaminophen 650 mg 03/02/18 04:23 Tylenol 325mg Tab PO Q6 PRN Fever >100.4 F Acetaminophen 975 mg 03/02/18 21:45 Tylenol 325mg/10.15ml Ud PO Q8 PRN Pain, moderate (4-7) Ascorbic Acid 500 mg 03/05/18 09:00 03/11/18 17:25 Vitamin C 500 Mg Tab PO Not Given BID [facility] Atorvastatin Calcium 10 mg 03/01/18 22:00 03/11/18 21:00 Lipitor PO Not Given HS [facility] Cholecalciferol 1,000 intlu 03/02/18 09:00 03/11/18 09:20 Vitamin D PO Not Given DAILY [facility] Dextrose 0 ml 03/05/18 11:53 03/09/18 00:40 Dextrose 50% Inj IV 50 ml STAT PRN Administration Hypoglycemia Protocol Protocol Dextrose 0 gm 03/05/18 11:53 Glutose 15 PO ONCE PRN Hypoglycemia Protocol Protocol Digoxin 0.125 mg 03/02/18 09:00 03/02/18 10:51 Digoxin PO Not Given DAILY [facility] Dimethicone 1 applic 03/01/18 19:56 03/11/18 09:19 Proshield Plus Skin Protectant TOP 1 applic Q8 PRN Administration Rash Emollient Ointment 1 pkt 03/02/18 09:00 03/11/18 17:25 Vaseline Oint TOP 1 pkt BID [facility] Administration Epoetin Rolo 40,000 unit 03/07/18 09:00 03/07/18 10:16 Procrit SC 40,000 unit WED [facility] Administration Furosemide 60 mg 03/06/18 14:00 03/12/18 01:30 Lasix IV 60 mg Q12H [facility] Administration Glucagon 0 mg 03/05/18 11:53 Glucagen Diagnostic Kit IM STAT PRN Hypoglycemia Protocol Protocol Heparin Sodium (Porcine) 5,000 units 03/05/18 17:00 03/07/18 08:42 Heparin SC 5,000 units Q8 [facility] Administration Protocol Fluconazole 50 mls @ 50 mls/hr 03/05/18 13:45 03/11/18 09:18 Diflucan Iv 100 Mg/50 Ml Ns IVPB 50 mls/hr DAILY [facility] Administration Protocol Ceftaroline Fosamil 200 mg/ 250 mls @ 250 mls/hr 03/07/18 21:00 03/11/18 20:57 Sodium Chloride IVPB 250 mls/hr Q12 [facility] Administration Protocol Potassium Chloride 100 mls @ 50 mls/hr 03/12/18 08:00 Potassium Chloride 20 Meq/100 Ml IVPB 03/12/18 11:59 Q2 [facility] Insulin Human Regular 0 units 03/05/18 12:00 03/12/18 07:04 Humulin R SC Not Given ACCU-CHECK [facility] Protocol Ipratropium [place] 0.5 mg 03/01/18 20:00 03/12/18 07:32 Atrovent IH 0.5 mg RQID [facility] Administration Lactobacillus Acidophilus 1 cap 03/02/18 09:00 03/11/18 17:19 Bacid Acidophilus PO Not Given BID [facility] Levalbuterol HCl 0.63 mg 03/03/18 12:00 03/12/18 07:32 Xopenex INH 0.63 mg RQID [facility] Administration Levothyroxine Sodium 40 mcg 03/03/18 06:30 03/12/18 07:03 Synthroid IVP 40 mcg DAILY@0630 [facility] Administration Mirtazapine 7.5 mg 03/01/18 22:00 03/11/18 20:59 Remeron PO Not Given HS [facility] Nystatin 1 applic 03/02/18 17:00 03/11/18 17:24 Nystop Topical Powder TOP 1 appl TID [facility] Administration Pantoprazole Sodium 40 mg 03/03/18 09:00 03/11/18 09:25 Protonix Inj IVP 40 mg DAILY [facility] Administration Sodium Bicarbonate 650 mg 03/12/18 09:00 Sodium Bicarbonate Tab PO Q8 [facility] - Patient Studies Lab Studies: Lab Studies 03/12/18 03/12/18 03/12/18 Range/Units 06:09 04:30 04:30 WBC 20.8 H (4.8-10.8) K/uL RBC 3.36 L (3.80-5.20) Mil/uL Hgb 9.2 L (12.0-16.0) g/dL Hct 29.4 L (34.0-47.0) % MCV 87.5 (81.0-99.0) fl MCH 27.3 (27.0-31.0) pg MCHC 31.2 L (33.0-37.0) g/dL RDW 19.7 H (11.5-14.5) % Plt Count 92 L (130-400) K/uL Sodium 137 (132-148) mmol/l Potassium 3.3 L (3.6-5.0) MMOL/L Chloride 111 H (98-107) mmol/L Carbon Dioxide 15 L (22-30) mmol/L Anion Gap 14 (10-20) BUN 30 H (7-17) mg/dl Creatinine 1.6 H (0.7-1.2) mg/dl Est GFR ( Amer) 38 Est GFR (Non-Af Amer) 31 POC Glucose (mg/dL) 138 H (65-110) mg/dL Random Glucose 122 H (65-105) mg/dL Calcium 7.6 L (8.4-10.2) mg/dL Random Gentamicin ug/mL 03/11/18 03/11/18 03/11/18 Range/Units 22:27 17:28 15:15 WBC (4.8-10.8) K/uL RBC (3.80-5.20) Mil/uL Hgb (12.0-16.0) g/dL Hct (34.0-47.0) % MCV (81.0-99.0) fl MCH (27.0-31.0) pg MCHC (33.0-37.0) g/dL RDW (11.5-14.5) % Plt Count (130-400) K/uL Sodium 133 (132-148) mmol/l Potassium 4.5 (3.6-5.0) MMOL/L Chloride 110 H (98-107) mmol/L Carbon Dioxide 13 L (22-30) mmol/L Anion Gap 15 (10-20) BUN 32 H (7-17) mg/dl Creatinine 1.7 H (0.7-1.2) mg/dl Est GFR ( Amer) 35 Est GFR (Non-Af Amer) 29 POC Glucose (mg/dL) 122 H 107 (65-110) mg/dL Random Glucose 102 (65-105) mg/dL Calcium 7.6 L (8.4-10.2) mg/dL Random Gentamicin ug/mL 03/11/18 03/11/18 Range/Units 12:26 04:25 WBC (4.8-10.8) K/uL RBC (3.80-5.20) Mil/uL Hgb (12.0-16.0) g/dL Hct (34.0-47.0) % MCV (81.0-99.0) fl MCH (27.0-31.0) pg MCHC (33.0-37.0) g/dL RDW (11.5-14.5) % Plt Count (130-400) K/uL Sodium (132-148) mmol/l Potassium (3.6-5.0) MMOL/L Chloride (98-107) mmol/L Carbon Dioxide (22-30) mmol/L Anion Gap (10-20) BUN (7-17) mg/dl Creatinine (0.7-1.2) mg/dl Est GFR ( Amer) Est GFR (Non-Af Amer) POC Glucose (mg/dL) 134 H (65-110) mg/dL Random Glucose (65-105) mg/dL Calcium (8.4-10.2) mg/dL Random Gentamicin 2.6 ug/mL Laboratory Results - last 24 hr 03/11/18 03/11/18 03/11/18 04:25 12:26 15:15 WBC RBC Hgb Hct MCV MCH MCHC RDW Plt Count Sodium 133 Potassium 4.5 Chloride 110 H Carbon Dioxide 13 L Anion Gap 15 BUN 32 H Creatinine 1.7 H Est GFR ( Amer) 35 Est GFR (Non-Af Amer) 29 POC Glucose (mg/dL) 134 H Random Glucose 102 Calcium 7.6 L Random Gentamicin 2.6 03/11/18 03/11/18 03/12/18 17:28 22:27 04:30 WBC 20.8 H RBC 3.36 L Hgb 9.2 L Hct 29.4 L MCV 87.5 MCH 27.3 MCHC 31.2 L RDW 19.7 H Plt Count 92 L Sodium Potassium Chloride Carbon Dioxide Anion Gap BUN Creatinine Est GFR ( Amer) Est GFR (Non-Af Amer) POC Glucose (mg/dL) 107 122 H Random Glucose Calcium Random Gentamicin 03/12/18 03/12/18 04:30 06:09 WBC RBC Hgb Hct MCV MCH MCHC RDW Plt Count Sodium 137 Potassium 3.3 L Chloride 111 H Carbon Dioxide 15 L Anion Gap 14 BUN 30 H Creatinine 1.6 H Est GFR ( Amer) 38 Est GFR (Non-Af Amer) 31 POC Glucose (mg/dL) 138 H Random Glucose 122 H Calcium 7.6 L Random Gentamicin Fingerstick Blood Sugar Results: 138 Critical Care Progress Note - Nutrition Nutrition: Nutrition Category Date Time Status NPO Diet [DIET] Diets 03/03/18 Breakfast Active Assessment/Plan (1) Acute respiratory failure with hypoxemia Current Visit: Yes Status: Acute Priority: High Comment: Successfully extubated Continue IV antibiotics (2) Acute pulmonary edema Current Visit: Yes Status: Acute Priority: High Comment: Continue diuresis, No chest pain, less dyspnea Continue Furosemide (Lasix) 60 mg IV Q12H (3) Pneumonia Current Visit: Yes Status: Acute Priority: High Comment: Tracheal aspirate positive for Enterobacter Gergobacter and yeast Ceftaroline Fosamil 200 mg IVPB Q12 [facility] Fluconazole (Diflucan Iv 100 Mg/50 Ml Ns) IVPB DAILY [facility] (4) Pulmonary hypertension Current Visit: Yes Status: Chronic Priority: High (5) Acute kidney injury Current Visit: Yes Status: Resolved Priority: High
[2018-03-12] MEDS: Lactobacillus Acidophilus 500 MU Cap PO SCH ×2 (08:48→16:30)
[2018-03-12] MEDS: Cholecalciferol 1,000 INTLU TAB PO SCH (08:49)
[2018-03-12] MEDS: CEFTAROLINE IVPB SCH ×2 (08:51→20:51)
[2018-03-12] MEDS: SODIUM CHLORIDE 0.9% IVPB SCH ×2 (08:51→20:51)
[2018-03-12] MEDS: Potassium Chloride 20 mEq 100 ML IVPB SCH ×2 (08:52→12:14)
[2018-03-12] MEDS: Fluconazole IV 100mg/50 ml NS 50 ML IVPB SCH (08:54)
--- NOTE | 2018-03-12 08:55 | CP.PCM.PN ---
Subjective - Date & Time of Evaluation Date of Evaluation: 03/12/18 Time of Evaluation: 08:51 - Subjective Subjective: Seen in the ICU on morning rounds. Interim events reviewed in the EMR. Has remained on nasal oxygen since extubation on 03/09. SpO2 remains ~99% on 4LPM nasal canula. Remains mildly tachy around 100 BPM, BP stable off pressors. Urine output has improved significantly. Rectal tube in place. Has been resistant to nursing mouth care. Opens eyes to stimulation, acknowledges questions by silently mouthing words. Appears pale, no cyanosis, no jaundice, ++ dependant edema. Small tayler-oral lesions, appear likely viral. Conjunctivae pale, non-icteric. Neck is supple, trachea midline. No dullness to percussion of the anterior chest wall. No palpable subcutaneous emphysema. Breath sounds are diminished bilaterally w/o audible wheezes. Bronchial breath sounds are present posteriorly on the right. Scattered dry rales are present bilaterally in dependant regions. Heart sounds are distant ~100 BPM. Abdomen is soft with hypo bowel sounds. Sepsis; pneumonia and decubitus ulcer likely source. NICOLE on CKD; some improvement noted. Hypotension improved; no longer requires pressor support. Background COPD seems stable. Lymphoma and MDS has been on chemo prior to acute event. Chest x-ray. Multi-antibiotic therapy as per ID. Continue O2 supplement now via nasal canula. Speech/swallow eval. Nutritional support (route?). Begin mobilization as tolerated. Maintain DNR/DNI status. Consider palliative care consultation? Objective - Vital Signs/Intake and Output Vital Signs (last 24 hours): Temp Pulse Resp BP Pulse Ox 97.2 F L 106 H 32 H 126/81 100 03/12/18 08:00 03/12/18 08:00 03/12/18 08:00 03/12/18 08:00 03/12/18 08:00 Intake and Output: 03/11/18 03/12/18 23:59 11:59 Intake Total 1245 360 Output Total 900 552 Balance 345 -192 - Medications Medications: Current Medications Acetaminophen (Tylenol 325mg Tab) 650 mg PO Q6 PRN PRN Reason: Fever >100.4 F Acetaminophen (Tylenol 325mg/10.15ml Ud) 975 mg PO Q8 PRN PRN Reason: Pain, moderate (4-7) Ascorbic Acid (Vitamin C 500 Mg Tab) 500 mg PO BID ON [facility] OF [facility] Last Admin: 03/12/18 08:49 Dose: Not Given Atorvastatin Calcium (Lipitor) 10 mg PO HS ON [facility] OF [facility] Last Admin: 03/11/18 21:00 Dose: Not Given Cholecalciferol (Vitamin D) 1,000 intlu PO DAILY [facility] Last Admin: 03/12/18 08:49 Dose: Not Given Dextrose (Dextrose 50% Inj) 0 ml IV STAT PRN; Protocol PRN Reason: Hypoglycemia Protocol Last Admin: 03/09/18 00:40 Dose: 50 ml Dextrose (Glutose 15) 0 gm PO ONCE PRN; Protocol PRN Reason: Hypoglycemia Protocol Digoxin (Digoxin) 0.125 mg PO DAILY ON [facility] Last Admin: 03/02/18 10:51 Dose: Not Given Dimethicone (Proshield Plus Skin Protectant) 1 applic TOP Q8 PRN PRN Reason: Rash Last Admin: 03/11/18 09:19 Dose: 1 applic Emollient Ointment (Vaseline Oint) 1 pkt TOP BID ON [facility] Last Admin: 03/11/18 17:25 Dose: 1 pkt Epoetin Rolo (Procrit) 40,000 unit SC WED ON LICENSE OF [facility] Last Admin: 03/07/18 10:16 Dose: 40,000 unit Furosemide (Lasix) 60 mg IV Q12H ON [facility] OF [facility] Last Admin: 03/12/18 01:30 Dose: 60 mg Glucagon (Glucagen Diagnostic Kit) 0 mg IM STAT PRN; Protocol PRN Reason: Hypoglycemia Protocol Heparin Sodium (Porcine) (Heparin) 5,000 units SC Q8 [facility]; Protocol Last Admin: 03/07/18 08:42 Dose: 5,000 units Fluconazole (Diflucan Iv 100 Mg/50 Ml Ns) 50 mls @ 50 mls/hr IVPB DAILY ON [facility] OF [facility]; Protocol Last Admin: 03/11/18 09:18 Dose: 50 mls/hr Ceftaroline Fosamil 200 mg/ (Sodium Chloride) 250 mls @ 250 mls/hr IVPB Q12 [facility]; Protocol Last Admin: 03/11/18 20:57 Dose: 250 mls/hr Potassium Chloride (Potassium Chloride 20 Meq/100 Ml) 100 mls @ 50 mls/hr IVPB Q2 ON [facility] Stop: 03/12/18 11:59 Insulin Human Regular (Humulin R) 0 units SC ACCU-CHECK ON LICENSE OF [facility]; Protocol Last Admin: 03/12/18 07:04 Dose: Not Given Ipratropium [place] (Atrovent) 0.5 mg IH RQID ON [facility] Last Admin: 03/12/18 07:32 Dose: 0.5 mg Lactobacillus Acidophilus (Bacid Acidophilus) 1 cap PO BID ON [facility] Last Admin: 03/12/18 08:48 Dose: Not Given Levalbuterol HCl (Xopenex) 0.63 mg INH RQID ON [facility] Last Admin: 03/12/18 07:32 Dose: 0.63 mg Levothyroxine Sodium (Synthroid) 40 mcg IVP DAILY@0630 ON [facility] Last Admin: 03/12/18 07:03 Dose: 40 mcg Mirtazapine (Remeron) 7.5 mg PO HS ON [facility] Last Admin: 03/11/18 20:59 Dose: Not Given Nystatin (Nystop Topical Powder) 1 applic TOP TID ON [facility] Last Admin: 03/11/18 17:24 Dose: 1 appl Pantoprazole Sodium (Protonix Inj) 40 mg IVP DAILY ON [facility] Last Admin: 03/11/18 09:25 Dose: 40 mg Sodium Bicarbonate (Sodium Bicarbonate Tab) 650 mg PO Q8 ON [facility] Last Admin: 03/12/18 08:48 Dose: Not Given - Labs Labs: 03/12/18 04:30 03/12/18 04:30 PT 11.2 Seconds (9.8-13.1) 03/06/18 04:30 INR 1.0 03/06/18 04:30 APTT 41.3 Seconds (25.6-37.1) H 03/06/18 04:30 Assessment and Plan (1) Bronchopneumonia Status: Acute (2) Sacral decubitus ulcer Status: Acute (3) Toxic metabolic encephalopathy Status: Acute (4) B-cell lymphoma Status: Chronic (5) COPD (chronic obstructive pulmonary disease) Status: Chronic (6) Thrombocytopenia Status: Acute
[2018-03-12] MEDS: Petrolatum UD PAK TOP SCH ×2 (08:58→16:29)
--- NOTE | 2018-03-12 10:03 | CP.PCM.PN ---
Subjective - Date & Time of Evaluation Date of Evaluation: 03/12/18 Time of Evaluation: 09:40 - Subjective Subjective: tthe patient breathes spontaneously. She has a flat affect and appears listless. She opens her eyes after loud calling. Mostly answer simple questions by nodding. she was afebrile with atrial flutter and a heart rate at 100 bpm. Her blood pressure was 124/74 mmHg. With O2 supplement by nasal cannula her pulse oximetry was 97%. Her lab data was noted. I have discussed her case with the refuse laborer and pulmonary physician. I have left a message with her daughter regarding possibly putting in a PEG tube to feed her. Also plans for subsequent medical care need to be made given her recent [facility] course following chemotherapy. Objective - Vital Signs/Intake and Output Vital Signs (last 24 hours): Temp Pulse Resp BP Pulse Ox 97.2 F L 106 H 32 H 126/81 100 03/12/18 08:00 03/12/18 08:00 03/12/18 08:00 03/12/18 08:00 03/12/18 08:00 Intake and Output: 03/12/18 03/12/18 06:59 18:59 Intake Total 735 Output Total 552 Balance 183 - Medications Medications: Current Medications Acetaminophen (Tylenol 325mg Tab) 650 mg PO Q6 PRN PRN Reason: Fever >100.4 F Acetaminophen (Tylenol 325mg/10.15ml Ud) 975 mg PO Q8 PRN PRN Reason: Pain, moderate (4-7) Ascorbic Acid (Vitamin C 500 Mg Tab) 500 mg PO BID [facility] Last Admin: 03/12/18 08:49 Dose: Not Given Atorvastatin Calcium (Lipitor) 10 mg PO HS [facility] Last Admin: 03/11/18 21:00 Dose: Not Given Cholecalciferol (Vitamin D) 1,000 intlu PO DAILY [facility] Last Admin: 03/12/18 08:49 Dose: Not Given Dextrose (Dextrose 50% Inj) 0 ml IV STAT PRN; Protocol PRN Reason: Hypoglycemia Protocol Last Admin: 03/09/18 00:40 Dose: 50 ml Dextrose (Glutose 15) 0 gm PO ONCE PRN; Protocol PRN Reason: Hypoglycemia Protocol Digoxin (Digoxin) 0.125 mg PO DAILY [facility] Last Admin: 03/02/18 10:51 Dose: Not Given Dimethicone (Proshield Plus Skin Protectant) 1 applic TOP Q8 PRN PRN Reason: Rash Last Admin: 03/11/18 09:19 Dose: 1 applic Emollient Ointment (Vaseline Oint) 1 pkt TOP BID [facility] Last Admin: 03/12/18 08:58 Dose: 1 pkt Epoetin Rolo (Procrit) 40,000 unit SC WED [facility] Last Admin: 03/07/18 10:16 Dose: 40,000 unit Furosemide (Lasix) 60 mg IV Q12H [facility] Last Admin: 03/12/18 01:30 Dose: 60 mg Glucagon (Glucagen Diagnostic Kit) 0 mg IM STAT PRN; Protocol PRN Reason: Hypoglycemia Protocol Heparin Sodium (Porcine) (Heparin) 5,000 units SC Q8 [facility]; Protocol Last Admin: 03/07/18 08:42 Dose: 5,000 units Fluconazole (Diflucan Iv 100 Mg/50 Ml Ns) 50 mls @ 50 mls/hr IVPB DAILY [facility]; Protocol Last Admin: 03/12/18 08:54 Dose: 50 mls/hr Ceftaroline Fosamil 200 mg/ (Sodium Chloride) 250 mls @ 250 mls/hr IVPB Q12 [facility]; Protocol Last Admin: 03/12/18 08:51 Dose: 250 mls/hr Potassium Chloride (Potassium Chloride 20 Meq/100 Ml) 100 mls @ 50 mls/hr IVPB Q2 [facility] Stop: 03/12/18 11:59 Last Admin: 03/12/18 08:52 Dose: 50 mls/hr Insulin Human Regular (Humulin R) 0 units SC ACCU-CHECK [facility]; Protocol Last Admin: 03/12/18 07:04 Dose: Not Given Ipratropium [place] (Atrovent) 0.5 mg IH RQID [facility] Last Admin: 03/12/18 07:32 Dose: 0.5 mg Lactobacillus Acidophilus (Bacid Acidophilus) 1 cap PO BID [facility] Last Admin: 03/12/18 08:48 Dose: Not Given Levalbuterol HCl (Xopenex) 0.63 mg INH RQID [facility] Last Admin: 03/12/18 07:32 Dose: 0.63 mg Levothyroxine Sodium (Synthroid) 40 mcg IVP DAILY@0630 [facility] Last Admin: 03/12/18 07:03 Dose: 40 mcg Mirtazapine (Remeron) 7.5 mg PO HS [facility] Last Admin: 03/11/18 20:59 Dose: Not Given Nystatin (Nystop Topical Powder) 1 applic TOP TID [facility] Last Admin: 03/12/18 08:52 Dose: 1 appl Pantoprazole Sodium (Protonix Inj) 40 mg IVP DAILY [facility] Last Admin: 03/12/18 08:53 Dose: 40 mg Sodium Bicarbonate (Sodium Bicarbonate Tab) 650 mg PO Q8 [facility] Last Admin: 03/12/18 08:48 Dose: Not Given - Labs Labs: 03/12/18 04:30 03/12/18 04:30 PT 11.2 Seconds (9.8-13.1) 03/06/18 04:30 INR 1.0 03/06/18 04:30 APTT 41.3 Seconds (25.6-37.1) H 03/06/18 04:30
--- NOTE | 2018-03-12 10:52 | CP.PCM.PN ---
Subjective - Date & Time of Evaluation Date of Evaluation: 03/12/18 Time of Evaluation: 10:47 - Subjective Subjective: Pt was extubated during the weekend. She does not do much in the way of movement. She wakes up when her name is called, but does not eat, so today a peg tube is being placed.. Prognosis poor and she is a DNR/DNI Objective - Vital Signs/Intake and Output Vital Signs (last 24 hours): Temp Pulse Resp BP Pulse Ox 97.2 F L 107 H 32 H 130/78 100 03/12/18 08:00 03/12/18 10:00 03/12/18 10:00 03/12/18 10:00 03/12/18 10:00 Intake and Output: 03/12/18 03/12/18 06:59 18:59 Intake Total 735 350 Output Total 552 Balance 183 350 - Medications Medications: Current Medications Acetaminophen (Tylenol 325mg Tab) 650 mg PO Q6 PRN PRN Reason: Fever >100.4 F Acetaminophen (Tylenol 325mg/10.15ml Ud) 975 mg PO Q8 PRN PRN Reason: Pain, moderate (4-7) Ascorbic Acid (Vitamin C 500 Mg Tab) 500 mg PO BID [facility] Last Admin: 03/12/18 08:49 Dose: Not Given Atorvastatin Calcium (Lipitor) 10 mg PO HS [facility] Last Admin: 03/11/18 21:00 Dose: Not Given Cholecalciferol (Vitamin D) 1,000 intlu PO DAILY [facility] Last Admin: 03/12/18 08:49 Dose: Not Given Dextrose (Dextrose 50% Inj) 0 ml IV STAT PRN; Protocol PRN Reason: Hypoglycemia Protocol Last Admin: 03/09/18 00:40 Dose: 50 ml Dextrose (Glutose 15) 0 gm PO ONCE PRN; Protocol PRN Reason: Hypoglycemia Protocol Digoxin (Digoxin) 0.125 mg PO DAILY [facility] Last Admin: 03/02/18 10:51 Dose: Not Given Dimethicone (Proshield Plus Skin Protectant) 1 applic TOP Q8 PRN PRN Reason: Rash Last Admin: 03/11/18 09:19 Dose: 1 applic Emollient Ointment (Vaseline Oint) 1 pkt TOP BID [facility] Last Admin: 03/12/18 08:58 Dose: 1 pkt Epoetin Rolo (Procrit) 40,000 unit SC WED [facility] Last Admin: 03/07/18 10:16 Dose: 40,000 unit Furosemide (Lasix) 60 mg IV Q12H [facility] Last Admin: 03/12/18 01:30 Dose: 60 mg Glucagon (Glucagen Diagnostic Kit) 0 mg IM STAT PRN; Protocol PRN Reason: Hypoglycemia Protocol Heparin Sodium (Porcine) (Heparin) 5,000 units SC Q8 [facility]; Protocol Last Admin: 03/07/18 08:42 Dose: 5,000 units Fluconazole (Diflucan Iv 100 Mg/50 Ml Ns) 50 mls @ 50 mls/hr IVPB DAILY [facility]; Protocol Last Admin: 03/12/18 08:54 Dose: 50 mls/hr Ceftaroline Fosamil 200 mg/ (Sodium Chloride) 250 mls @ 250 mls/hr IVPB Q12 [facility]; Protocol Last Admin: 03/12/18 08:51 Dose: 250 mls/hr Potassium Chloride (Potassium Chloride 20 Meq/100 Ml) 100 mls @ 50 mls/hr IVPB Q2 [facility] Stop: 03/12/18 11:59 Last Admin: 03/12/18 08:52 Dose: 50 mls/hr Gentamicin Sulfate 49 mg/ (Sodium Chloride) 101.225 mls @ 100 mls/hr IVPB Q24H [facility]; Protocol Insulin Human Regular (Humulin R) 0 units SC ACCU-CHECK [facility]; Protocol Last Admin: 03/12/18 07:04 Dose: Not Given Ipratropium [place] (Atrovent) 0.5 mg IH RQID [facility] Last Admin: 03/12/18 07:32 Dose: 0.5 mg Lactobacillus Acidophilus (Bacid Acidophilus) 1 cap PO BID [facility] Last Admin: 03/12/18 08:48 Dose: Not Given Levalbuterol HCl (Xopenex) 0.63 mg INH RQID [facility] Last Admin: 03/12/18 07:32 Dose: 0.63 mg Levothyroxine Sodium (Synthroid) 40 mcg IVP DAILY@0630 [facility] Last Admin: 03/12/18 07:03 Dose: 40 mcg Mirtazapine (Remeron) 7.5 mg PO HS [facility] Last Admin: 03/11/18 20:59 Dose: Not Given Nystatin (Nystop Topical Powder) 1 applic TOP TID [facility] Last Admin: 03/12/18 08:52 Dose: 1 appl Pantoprazole Sodium (Protonix Inj) 40 mg IVP DAILY [facility] Last Admin: 03/12/18 08:53 Dose: 40 mg Sodium Bicarbonate (Sodium Bicarbonate Tab) 650 mg PO Q8 [facility] Last Admin: 03/12/18 08:48 Dose: Not Given - Labs Labs: 03/12/18 04:30 03/12/18 04:30 PT 11.2 Seconds (9.8-13.1) 03/06/18 04:30 INR 1.0 03/06/18 04:30 APTT 41.3 Seconds (25.6-37.1) H 03/06/18 04:30
--- NOTE | 2018-03-12 11:04 | CP.PCM.PN ---
Subjective - Date & Time of Evaluation Date of Evaluation: 03/12/18 Time of Evaluation: 10:50 - Subjective Subjective: I D NOTE HAVE RESTARTED GENTAMICIN BUT AT 40 MG IVPB Q24H WILL FOLLOW TROUGH LEVELS RENAL FUNCTION HAS IMPROVED INCLUDING OUTPUT PATIENT IS NOT EATING ATALL TO POSSIBLY HAVE SWALLOWING TESTING HAVE DISCUSSED FEEDING TUBE(G-TUBE) c DRS. Jacobo CORCORAN & PALU AND CALLED DAUGHTER MANN IN THIS REGARD TO PLACIING G-TUBE ADVISED HER TO CALL ICU IN THIS REGARD(FOR PROCEDURE CONSENT) Objective - Vital Signs/Intake and Output Vital Signs (last 24 hours): Temp Pulse Resp BP Pulse Ox 97.2 F L 107 H 32 H 130/78 100 03/12/18 08:00 03/12/18 10:00 03/12/18 10:00 03/12/18 10:00 03/12/18 10:00 Intake and Output: 03/12/18 03/12/18 06:59 18:59 Intake Total 735 350 Output Total 552 Balance 183 350 - Medications Medications: Current Medications Acetaminophen (Tylenol 325mg Tab) 650 mg PO Q6 PRN PRN Reason: Fever >100.4 F Acetaminophen (Tylenol 325mg/10.15ml Ud) 975 mg PO Q8 PRN PRN Reason: Pain, moderate (4-7) Ascorbic Acid (Vitamin C 500 Mg Tab) 500 mg PO BID [facility] Last Admin: 03/12/18 08:49 Dose: Not Given Atorvastatin Calcium (Lipitor) 10 mg PO HS [facility] Last Admin: 03/11/18 21:00 Dose: Not Given Cholecalciferol (Vitamin D) 1,000 intlu PO DAILY [facility] Last Admin: 03/12/18 08:49 Dose: Not Given Dextrose (Dextrose 50% Inj) 0 ml IV STAT PRN; Protocol PRN Reason: Hypoglycemia Protocol Last Admin: 03/09/18 00:40 Dose: 50 ml Dextrose (Glutose 15) 0 gm PO ONCE PRN; Protocol PRN Reason: Hypoglycemia Protocol Digoxin (Digoxin) 0.125 mg PO DAILY [facility] Last Admin: 03/02/18 10:51 Dose: Not Given Dimethicone (Proshield Plus Skin Protectant) 1 applic TOP Q8 PRN PRN Reason: Rash Last Admin: 03/11/18 09:19 Dose: 1 applic Emollient Ointment (Vaseline Oint) 1 pkt TOP BID [facility] Last Admin: 03/12/18 08:58 Dose: 1 pkt Epoetin Rolo (Procrit) 40,000 unit SC WED [facility] Last Admin: 03/07/18 10:16 Dose: 40,000 unit Furosemide (Lasix) 60 mg IV Q12H [facility] Last Admin: 03/12/18 01:30 Dose: 60 mg Glucagon (Glucagen Diagnostic Kit) 0 mg IM STAT PRN; Protocol PRN Reason: Hypoglycemia Protocol Heparin Sodium (Porcine) (Heparin) 5,000 units SC Q8 [facility]; Protocol Last Admin: 03/07/18 08:42 Dose: 5,000 units Fluconazole (Diflucan Iv 100 Mg/50 Ml Ns) 50 mls @ 50 mls/hr IVPB DAILY [facility]; Protocol Last Admin: 03/12/18 08:54 Dose: 50 mls/hr Ceftaroline Fosamil 200 mg/ (Sodium Chloride) 250 mls @ 250 mls/hr IVPB Q12 [facility]; Protocol Last Admin: 03/12/18 08:51 Dose: 250 mls/hr Potassium Chloride (Potassium Chloride 20 Meq/100 Ml) 100 mls @ 50 mls/hr IVPB Q2 [facility] Stop: 03/12/18 11:59 Last Admin: 03/12/18 08:52 Dose: 50 mls/hr Gentamicin Sulfate 40 mg/ (Sodium Chloride) 51 mls @ 51 mls/hr IVPB Q24H [facility]; Protocol Insulin Human Regular (Humulin R) 0 units SC ACCU-CHECK [facility]; Protocol Last Admin: 03/12/18 07:04 Dose: Not Given Ipratropium [place] (Atrovent) 0.5 mg IH RQID [facility] Last Admin: 03/12/18 07:32 Dose: 0.5 mg Lactobacillus Acidophilus (Bacid Acidophilus) 1 cap PO BID [facility] Last Admin: 03/12/18 08:48 Dose: Not Given Levalbuterol HCl (Xopenex) 0.63 mg INH RQID [facility] Last Admin: 03/12/18 07:32 Dose: 0.63 mg Levothyroxine Sodium (Synthroid) 40 mcg IVP DAILY@0630 [facility] Last Admin: 03/12/18 07:03 Dose: 40 mcg Mirtazapine (Remeron) 7.5 mg PO HS [facility] Last Admin: 03/11/18 20:59 Dose: Not Given Nystatin (Nystop Topical Powder) 1 applic TOP TID [facility] Last Admin: 03/12/18 08:52 Dose: 1 appl Pantoprazole Sodium (Protonix Inj) 40 mg IVP DAILY [facility] Last Admin: 03/12/18 08:53 Dose: 40 mg Sodium Bicarbonate (Sodium Bicarbonate Tab) 650 mg PO Q8 [facility] Last Admin: 03/12/18 08:48 Dose: Not Given - Labs Labs: 03/12/18 04:30 03/12/18 04:30 PT 11.2 Seconds (9.8-13.1) 03/06/18 04:30 INR 1.0 03/06/18 04:30 APTT 41.3 Seconds (25.6-37.1) H 03/06/18 04:30
[2018-03-12] MEDS: Gentamicin 40 MG in Sodium Chloride 0.9% 50 ML IVPB SCH (13:35)
--- NOTE | 2018-03-12 14:46 | RAD ---
Date of service: 03/12/2018 HISTORY: Pneumonia. COMPARISON: 03/09/2018. FINDINGS: LUNGS: Progressive right lower lobe infiltrate. PLEURA: Right pleural effusion indistinguishable from compressive atelectasis. CARDIOVASCULAR: No atherosclerotic calcification present Unchanged. Venous access catheter in stable, satisfactory position. OSSEOUS STRUCTURES: No significant abnormalities. VISUALIZED UPPER ABDOMEN: Normal. OTHER FINDINGS: Removal of support apparatus since the prior study: Endotracheal tube. Nasogastric tube. IMPRESSION: Progressive right lower lobe infiltrate indistinguishable from right pleural effusion.
[2018-03-12] MEDS ORDERED: Chlorhexidine Gluconate 1 APPL/PKT TP ONE (16:22)
[2018-03-12] MEDS: Proshield Plus GEL TOP PRN (20:49)
[2018-03-13] MEDS: Insulin Regular 100 units/ml SC SCH ×4 (06:07→22:23)
[2018-03-13] MEDS: Levothyroxine 100 mcg (0.1 mg) Inj IVP SCH (06:11)
[2018-03-13 06:26] LABS: HEMOGLOBIN 9.7 g/dL (12.0-16.0); MEAN CELL VOLUME 88.9 fl (81.0-99.0); MEAN CORPUSCULAR HEMOGLOBIN 27.7 pg (27.0-31.0); MEAN CORPUSCULAR HGB CONC 31.1 g/dL (33.0-37.0); RBC 3.52 Mil/uL (3.80-5.20); RED CELL DISTRIBUTION WIDTH 20.7 % (11.5-14.5); WHITE BLOOD COUNT 23.8 K/uL (4.8-10.8)
[2018-03-13] MEDS: Levalbuterol 0.63 MG/3 ML Inhal Soln UD INH SCH ×4 (07:07→19:13)
[2018-03-13] MEDS: Ipratropium 0.02% Inhal Soln (0.5 mg/2.5 ml) UD IH SCH ×4 (07:07→19:13)
--- NOTE | 2018-03-13 07:11 | CP.PCM.PN ---
<Ran Dennison - Last Filed: 03/13/18 12:24> Subjective - Date & Time of Evaluation Date of Evaluation: 03/13/18 Time of Evaluation: 12:24 - Subjective Subjective: Patient seen and examined at bedside this morning. Patient still refusing to have mouth cleaned. Patient attempting inaudible speech. Extubated successfully. Patient pending PEG placement. Objective - Vital Signs/Intake and Output Vital Signs (last 24 hours): Temp Pulse Resp BP Pulse Ox 96.8 F L 106 H 41 H 153/71 H 97 03/13/18 00:00 03/13/18 00:00 03/13/18 00:00 03/13/18 00:00 03/13/18 00:00 Intake and Output: 03/13/18 03/13/18 06:59 18:59 Intake Total 0 Output Total 800 Balance -800 - Medications Medications: Current Medications Acetaminophen (Tylenol 325mg Tab) 650 mg PO Q6 PRN PRN Reason: Fever >100.4 F Acetaminophen (Tylenol 325mg/10.15ml Ud) 975 mg PO Q8 PRN PRN Reason: Pain, moderate (4-7) Ascorbic Acid (Vitamin C 500 Mg Tab) 500 mg PO BID [facility] Last Admin: 03/12/18 16:30 Dose: Not Given Atorvastatin Calcium (Lipitor) 10 mg PO HS [facility] Last Admin: 03/12/18 21:00 Dose: Not Given Cholecalciferol (Vitamin D) 1,000 intlu PO DAILY [facility] Last Admin: 03/12/18 08:49 Dose: Not Given Dextrose (Dextrose 50% Inj) 0 ml IV STAT PRN; Protocol PRN Reason: Hypoglycemia Protocol Last Admin: 03/09/18 00:40 Dose: 50 ml Dextrose (Glutose 15) 0 gm PO ONCE PRN; Protocol PRN Reason: Hypoglycemia Protocol Digoxin (Digoxin) 0.125 mg PO DAILY [facility] Last Admin: 03/02/18 10:51 Dose: Not Given Dimethicone (Proshield Plus Skin Protectant) 1 applic TOP Q8 PRN PRN Reason: Rash Last Admin: 03/12/18 20:49 Dose: 1 applic Emollient Ointment (Vaseline Oint) 1 pkt TOP BID [facility] Last Admin: 03/12/18 16:29 Dose: 1 pkt Epoetin Rolo (Procrit) 40,000 unit SC WED [facility] Last Admin: 03/07/18 10:16 Dose: 40,000 unit Furosemide (Lasix) 40 mg PO DAILY [facility] Glucagon (Glucagen Diagnostic Kit) 0 mg IM STAT PRN; Protocol PRN Reason: Hypoglycemia Protocol Heparin Sodium (Porcine) (Heparin) 5,000 units SC Q8 [facility]; Protocol Last Admin: 03/07/18 08:42 Dose: 5,000 units Fluconazole (Diflucan Iv 100 Mg/50 Ml Ns) 50 mls @ 50 mls/hr IVPB DAILY [facility]; Protocol Last Admin: 03/12/18 08:54 Dose: 50 mls/hr Gentamicin Sulfate 40 mg/ (Sodium Chloride) 51 mls @ 51 mls/hr IVPB Q24H [facility]; Protocol Last Admin: 03/12/18 13:35 Dose: 51 mls/hr Insulin Human Regular (Humulin R) 0 units SC ACCU-CHECK [facility]; Protocol Last Admin: 03/13/18 06:07 Dose: Not Given Ipratropium [place] (Atrovent) 0.5 mg IH RQID [facility] Last Admin: 03/13/18 07:07 Dose: 0.5 mg Lactobacillus Acidophilus (Bacid Acidophilus) 1 cap PO BID [facility] Last Admin: 03/12/18 16:30 Dose: Not Given Levalbuterol HCl (Xopenex) 0.63 mg INH RQID [facility] Last Admin: 03/13/18 07:07 Dose: 0.63 mg Levothyroxine Sodium (Synthroid) 40 mcg IVP DAILY@0630 [facility] Last Admin: 03/13/18 06:11 Dose: 40 mcg Mirtazapine (Remeron) 7.5 mg PO HS [facility] Last Admin: 03/12/18 21:01 Dose: Not Given Nystatin (Nystop Topical Powder) 1 applic TOP TID [facility] Last Admin: 03/12/18 16:29 Dose: 1 appl Pantoprazole Sodium (Protonix Inj) 40 mg IVP DAILY [facility] Last Admin: 03/12/18 08:53 Dose: 40 mg Sodium Bicarbonate (Sodium Bicarbonate Tab) 650 mg PO Q8 [facility] Last Admin: 03/13/18 00:35 Dose: Not Given - Labs Labs: 03/13/18 06:00 03/13/18 06:00 PT 11.2 Seconds (9.8-13.1) 03/06/18 04:30 INR 1.0 03/06/18 04:30 APTT 41.3 Seconds (25.6-37.1) H 03/06/18 04:30 - Constitutional Appears: No Acute Distress - Head Exam Additional comments: superficial skin breakdown on bilateral cheeks on face due to venturi mask - Eye Exam Eye Exam: Normal appearance - ENT Exam ENT Exam: Mucous Membranes Dry - Respiratory Exam Respiratory Exam: Decreased Breath Sounds, Rhonchi. absent: Wheezes, Respiratory Distress - Cardiovascular Exam Cardiovascular Exam: REGULAR RHYTHM. absent: Murmur - GI/Abdominal Exam Additional comments: patient winces w/ palpation - Extremities Exam Extremities Exam: absent: Pedal Edema - Neurological Exam Neurological Exam: Awake. absent: Alert, Oriented x3 - Skin Skin Exam: Dry Assessment and Plan - Assessment and Plan (Free Text) Assessment: 77 y/o woman w/ pmh of HTN, CAD s/p CABG, atrial fibrillation (not on antic oagulation due to thrombocytopenia), B cell lymphoma, MDS s/p chemo with pancytopenia , SIADH was admitted to [facility] for evaluation and treatment of bilateral pneumonia and possible c.diff. Pt went into respiratory failure and was placed on mechanical ventilation on 03/02. Pt is DNR/DNI as discussed with family. Plan: Respiratory Failure - Extubated - O2 100% NC - removes venti mask - Nasal cannula @ 4L - Pulmonology, Dr. Vazquez, recommendations appreciated Sepsis - Resolved - Improving. Afebrile, Leukocytosis 18.9 Lactic Acid 1.6, Metabolic Acidosis apparent in ABG. - X-Ray (03/01): Limited left pleural effusion stable. Small right pleural effusion not excluded. Borderline pulmonary vascular congestion. - Cxray (03/06): Improvement seen in R pleural effusion. - Wound CX (Sacral Decubitus Ulcer): Growing MDR Klebsiella Pneu (Sensitive to Gentamycin) & Vanco Resistant Enterococcus Faecium (sensitive to Zyvox) - Trach Asp Cx: Yeast species, Trach Asp Cx (03/07): GNR,Yeast - IVF D5 NS @ 40 mL/hr - S/P Meropenem 1gm IV Q8 x 1 day - given 1 dose of cefepime 0.[address] Suggs - C/W Ceftaroline 3000mg q12 (Day 11) - C/W Gentamycin 60mg/50cc q24hr (Day 6), held due to elevated gentamicin trough - DC Zyvox 600mg in D5W today (Day 3, HELD due to thrombocytopenia) - C/W Flucanazole 100mg daily (Day 9) - Discontinue Hydrocortisone, Vitamin C, and Thiamine as pt is no longer in septic shock - ID Dr. Pelletier on board Distended Abdomen - CT Abdomen: Moderate Ascites - C/W Diuresis - Continue OG feeds [place]ara - Third spacing secondary to fluid resuscitation w/ negative fluid balance vs severe protein malnutrition - S/P Albumin and Diuresis w/ Lasix 60mg IV q12 Decubitus ulcer - Wound care on case, reconsulted for wound care of right cheek - Re-Positioning every 2 hour Hyperglycemia - No hx of DM - Likely secondary to IV Steroids. Hydrocortisone discontinued - Levemir discontinued B-cell lymphoma / MDS (myelodysplastic syndrome) - On chemo - F/u Hematology/oncology consult Dr De Dios - Continue with Procrit Chronic A-fib - All antihypertensive held due to patients low blood pressure - no anticoagulation due to thrombocytopenia (Stable) COPD chronic - c/w Atrovent and Xopenex - Tessala Perles - Incentive [place] Hypothyroid - Chronic, controlled - C/W Levothyroxine 75mcg daily CKD stage III - stable Hearing loss - possible medication induced or age related DVT PPX - SCD's for now, thrombocytopenia GI ppx - Protonix 40mg PO daily Code status: DNR/DNI daughter declines hospice care daughter agrees to PEG placement, GI consulted <Malu Berrios - Last Filed: 03/13/18 16:19> Objective - Vital Signs/Intake and Output Vital Signs (last 24 hours): Temp Pulse Resp BP Pulse Ox 25 F L 101 H 25 H 102/51 L 100 03/13/18 14:00 03/13/18 14:00 03/13/18 14:00 03/13/18 14:00 03/13/18 14:00 Intake and Output: 03/13/18 03/13/18 06:59 18:59 Intake Total 0 Output Total 800 Balance -800 - Medications Medications: Current Medications Acetaminophen (Tylenol 325mg Tab) 650 mg PO Q6 PRN PRN Reason: Fever >100.4 F Acetaminophen (Tylenol 325mg/10.15ml Ud) 975 mg PO Q8 PRN PRN Reason: Pain, moderate (4-7) Ascorbic Acid (Vitamin C 500 Mg Tab) 500 mg PO BID [facility] Last Admin: 03/13/18 09:37 Dose: Not Given Atorvastatin Calcium (Lipitor) 10 mg PO HS [facility] Last Admin: 03/12/18 21:00 Dose: Not Given Cholecalciferol (Vitamin D) 1,000 intlu PO DAILY [facility] Last Admin: 03/13/18 09:37 Dose: Not Given Dextrose (Dextrose 50% Inj) 0 ml IV STAT PRN; Protocol PRN Reason: Hypoglycemia Protocol Last Admin: 03/09/18 00:40 Dose: 50 ml Dextrose (Glutose 15) 0 gm PO ONCE PRN; Protocol PRN Reason: Hypoglycemia Protocol Digoxin (Digoxin) 0.125 mg PO DAILY [facility] Last Admin: 03/02/18 10:51 Dose: Not Given Dimethicone (Proshield Plus Skin Protectant) 1 applic TOP Q8 PRN PRN Reason: Rash Last Admin: 03/12/18 20:49 Dose: 1 applic Emollient Ointment (Vaseline Oint) 1 pkt TOP BID [facility] Last Admin: 03/13/18 09:37 Dose: 1 pkt Epoetin [place] (Procrit) 40,000 unit SC WED [facility] Last Admin: 03/07/18 10:16 Dose: 40,000 unit Glucagon (Glucagen Diagnostic Kit) 0 mg IM STAT PRN; Protocol PRN Reason: Hypoglycemia Protocol Heparin Sodium (Porcine) (Heparin) 5,000 units SC Q8 [facility]; Protocol Last Admin: 03/07/18 08:42 Dose: 5,000 units Gentamicin Sulfate 40 mg/ (Sodium Chloride) 51 mls @ 51 mls/hr IVPB Q24H [facility]; Protocol Last Admin: 03/13/18 09:45 Dose: 51 mls/hr Ceftaroline Fosamil 200 mg/ (Sodium Chloride) 100 mls @ 100 mls/hr IVPB Q12 [facility]; Protocol Last Admin: 03/13/18 11:40 Dose: 100 mls/hr FLUCONAZOLE IN DEXTROSE (Fluconazole-Dext 200 Mg/100 Ml) 100 mg in 50 mls @ 50 mls/hr IVPB DAILY [facility]; Protocol Last Admin: 03/13/18 11:40 Dose: 50 mls/hr Insulin Human Regular (Humulin R) 0 units SC ACCU-CHECK [facility]; Protocol Last Admin: 03/13/18 11:34 Dose: Not Given Ipratropium [place] (Atrovent) 0.5 mg IH RQID [facility] Last Admin: 03/13/18 15:30 Dose: 0.5 mg Lactobacillus Acidophilus (Bacid Acidophilus) 1 cap PO BID [facility] Last Admin: 03/13/18 09:34 Dose: Not Given Levalbuterol HCl (Xopenex) 0.63 mg INH RQID [facility] Last Admin: 03/13/18 15:30 Dose: 0.63 mg Levothyroxine Sodium (Synthroid) 40 mcg IVP DAILY@0630 [facility] Last Admin: 03/13/18 06:11 Dose: 40 mcg Mirtazapine (Remeron) 7.5 mg PO HS [facility] Last Admin: 03/12/18 21:01 Dose: Not Given Nystatin (Nystop Topical Powder) 1 applic TOP TID [facility] Last Admin: 03/13/18 09:36 Dose: 1 appl Pantoprazole Sodium (Protonix Inj) 40 mg IVP DAILY [facility] Last Admin: 03/13/18 09:37 Dose: 40 mg Sodium Bicarbonate (Sodium Bicarbonate Tab) 650 mg PO Q8 [facility] Last Admin: 03/13/18 09:37 Dose: Not Given - Labs Labs: 03/13/18 06:00 03/13/18 06:00 PT 11.2 Seconds (9.8-13.1) 03/06/18 04:30 INR 1.0 03/06/18 04:30 APTT 41.3 Seconds (25.6-37.1) H 03/06/18 04:30 Attending/Attestation - Attestation I have personally seen and examined this patient.: Yes I have fully participated in the care of the patient.: Yes I have reviewed all pertinent clinical information, including history, physical exam and plan: Yes Notes (Text): Sepsis sec to Pneumonia, improving - cont IV Teflaro, Gentamicin and Fluconazole Respiratory Failure due to Pneumonia , requiring Intubation, improved - Pt extubated Dysphagia and Poor PO Intake - Plan for PEG Placement- Dr Burris consulted
--- NOTE | 2018-03-13 08:19 | CP.PCM.PN ---
Subjective - Date & Time of Evaluation Date of Evaluation: 03/13/18 Time of Evaluation: 08:17 - Subjective Subjective: Interim events and EMR entries reviewed. Patient remains in ICU, DNR/DNI status in effect. Plan for PEG tube placement was discussed and agreed upon. No chest x-ray this morning. Yesterdays film was reviewed. Labs from this morning were reviewed. Lying semi upright in bed. Opens eyes to stimulus. Appears to attempt cooperation with the physical exam. Mouth open, MM dry, crusted material covering tongue. Thick purulent material on the posterior pharyngeal wall. Neck is supple and trachea midline. No dullness on percussion of the anterior chest wall. No subcutaneous emphysema palpated. Breath sounds are present bilaterally, diminished. Bronchial breathing in the posterior right chest. Sonorous rhonchi present in both lungs posteriorly. Few dry rales heard in lower lobes, no wheezing. Heart sounds are very distant, regular at ~ 100 BPM. Abdomen is full, soft, seems non-tender, + bowel sounds. Dependant edema posteriorly of trunk and thighs. No cyanosis. Extremities are warm to touch. Initial bronchopneumonia/sepsis seems to have improved. Presently developing right pleural effusion and possible atelectasis in RLL. Enterobacter and yeast cultured presently from airways secretions. Polymicrobial infected decubitus ulcer. Underlying malignancy with chemotherapy presently on hold. NICOLE on CKD seems to have improved/stabilized. Metabolic acidosis related to the above. Will discuss further treatments with ID. Plan is for PEG tube placement to maintain adequate nutritional intake. Has been successfully weaned from the ventilator and extubated. Has been weaned from pressors as well. Maintain DNR/DNI status. ICU time 45 min. Objective - Vital Signs/Intake and Output Vital Signs (last 24 hours): Temp Pulse Resp BP Pulse Ox 96.8 F L 100 H 30 H 151/78 H 100 03/13/18 00:00 03/13/18 06:00 03/13/18 06:00 03/13/18 06:00 03/13/18 06:00 Intake and Output: 03/12/18 03/13/18 23:59 11:59 Intake Total 370 0 Output Total 400 800 Balance -30 -800 - Medications Medications: Current Medications Acetaminophen (Tylenol 325mg Tab) 650 mg PO Q6 PRN PRN Reason: Fever >100.4 F Acetaminophen (Tylenol 325mg/10.15ml Ud) 975 mg PO Q8 PRN PRN Reason: Pain, moderate (4-7) Ascorbic Acid (Vitamin C 500 Mg Tab) 500 mg PO BID [facility] Last Admin: 03/12/18 16:30 Dose: Not Given Atorvastatin Calcium (Lipitor) 10 mg PO HS [facility] Last Admin: 03/12/18 21:00 Dose: Not Given Cholecalciferol (Vitamin D) 1,000 intlu PO DAILY [facility] Last Admin: 03/12/18 08:49 Dose: Not Given Dextrose (Dextrose 50% Inj) 0 ml IV STAT PRN; Protocol PRN Reason: Hypoglycemia Protocol Last Admin: 03/09/18 00:40 Dose: 50 ml Dextrose (Glutose 15) 0 gm PO ONCE PRN; Protocol PRN Reason: Hypoglycemia Protocol Digoxin (Digoxin) 0.125 mg PO DAILY [facility] Last Admin: 03/02/18 10:51 Dose: Not Given Dimethicone (Proshield Plus Skin Protectant) 1 applic TOP Q8 PRN PRN Reason: Rash Last Admin: 03/12/18 20:49 Dose: 1 applic Emollient Ointment (Vaseline Oint) 1 pkt TOP BID [facility] Last Admin: 03/12/18 16:29 Dose: 1 pkt Epoetin Rolo (Procrit) 40,000 unit SC WED [facility] Last Admin: 03/07/18 10:16 Dose: 40,000 unit Furosemide (Lasix) 40 mg PO DAILY [facility] Glucagon (Glucagen Diagnostic Kit) 0 mg IM STAT PRN; Protocol PRN Reason: Hypoglycemia Protocol Heparin Sodium (Porcine) (Heparin) 5,000 units SC Q8 [facility]; Protocol Last Admin: 03/07/18 08:42 Dose: 5,000 units Gentamicin Sulfate 40 mg/ (Sodium Chloride) 51 mls @ 51 mls/hr IVPB Q24H [facility]; Protocol Last Admin: 03/12/18 13:35 Dose: 51 mls/hr Ceftaroline Fosamil 200 mg/ (Sodium Chloride) 100 mls @ 100 mls/hr IVPB Q12 [facility]; Protocol Fluconazole (Diflucan Iv 100 Mg/50 Ml Ns) 50 mls @ 50 mls/hr IVPB DAILY [facility]; Protocol Insulin Human Regular (Humulin R) 0 units SC ACCU-CHECK [facility]; Protocol Last Admin: 03/13/18 06:07 Dose: Not Given Ipratropium [place] (Atrovent) 0.5 mg IH RQID [facility] Last Admin: 03/13/18 07:07 Dose: 0.5 mg Lactobacillus Acidophilus (Bacid Acidophilus) 1 cap PO BID [facility] Last Admin: 03/12/18 16:30 Dose: Not Given Levalbuterol HCl (Xopenex) 0.63 mg INH RQID [facility] Last Admin: 03/13/18 07:07 Dose: 0.63 mg Levothyroxine Sodium (Synthroid) 40 mcg IVP DAILY@0630 [facility] Last Admin: 03/13/18 06:11 Dose: 40 mcg Mirtazapine (Remeron) 7.5 mg PO HS [facility] Last Admin: 03/12/18 21:01 Dose: Not Given Nystatin (Nystop Topical Powder) 1 applic TOP TID [facility] Last Admin: 03/12/18 16:29 Dose: 1 appl Pantoprazole Sodium (Protonix Inj) 40 mg IVP DAILY [facility] Last Admin: 03/12/18 08:53 Dose: 40 mg Sodium Bicarbonate (Sodium Bicarbonate Tab) 650 mg PO Q8 [facility] Last Admin: 03/13/18 00:35 Dose: Not Given - Labs Labs: 03/13/18 06:00 03/13/18 06:00 PT 11.2 Seconds (9.8-13.1) 03/06/18 04:30 INR 1.0 03/06/18 04:30 APTT 41.3 Seconds (25.6-37.1) H 03/06/18 04:30 Assessment and Plan (1) Bronchopneumonia Status: Acute (2) Sacral decubitus ulcer Status: Acute (3) Toxic metabolic encephalopathy Status: Acute (4) B-cell lymphoma Status: Chronic (5) COPD (chronic obstructive pulmonary disease) Status: Chronic (6) Thrombocytopenia Status: Acute
[2018-03-13] MEDS ORDERED: Fluconazole IV 100mg/50 ml NS 50 ML IVPB SCH (09:00)
[2018-03-13] MEDS: Lactobacillus Acidophilus 500 MU Cap PO SCH ×2 (09:34→17:05)
[2018-03-13] MEDS: Petrolatum UD PAK TOP SCH ×2 (09:37→17:07)
[2018-03-13] MEDS: Cholecalciferol 1,000 INTLU TAB PO SCH (09:37)
[2018-03-13] MEDS: Gentamicin 40 MG in Sodium Chloride 0.9% 50 ML IVPB SCH (09:45)
[2018-03-13] MEDS: PIGGYBACK IVPB SCH (11:40)
[2018-03-13] MEDS: [UNRECOGNIZED DRUG - OTHER] IVPB SCH (11:40)
--- NOTE | 2018-03-13 12:27 | CP.CCUPN ---
CCU Subjective - Physician Review Subjective (Free Text): 03/13/18 The patient was Seen and examined by me at the bedside during ICU round, Medical records reviewed and Management issues were discussed and formulated with the house staff. Events reviewed Patient awake, Comfortable, no distress, NAD Saturating 100% on O2 supplement, No fever/chills, no pressors Afebrile, NSR on the monitor Tracheal aspirate positive for Enterobacter Gergobacter and yeast Tolerating IV antibiotics Pt's current status is discussed with pt / pt's daughter, patient is DNR/DNI, holding off hospice evaluations, Also she is in agreement for PEG tube placement, GI consulted CCU Objective - Vital Signs / Intake & Output Vital Signs (Last 4 hours): Vital Signs Temp Pulse Resp BP Pulse Ox 03/13/18 12:00 97.8 F 100 H 23 145/82 100 03/13/18 10:00 100 H 23 109/46 L 100 Intake and Output (Last 8hrs): Intake & Output 03/12/18 03/13/18 03/13/18 22:59 06:59 14:59 Intake Total 160 0 Output Total 400 800 Balance -240 -800 Intake: IV 160 Oral 0 0 Output: Urine 400 800 Urethral ([place]) 800 Urine, Voided 400 Other: # Voids Urine, Voided 1 - Physical Exam Head: Positive for: Atraumatic, Normocephalic Pupils: Positive for: PERRL Extroacular Muscles: Positive for: EOMI Conjunctiva: Positive for: Normal Ears: Positive for: Normal Mouth: Positive for: Moist Mucous Membranes Pharnyx: Positive for: Normal Nose (Internal): Positive for: Normal Inspection Neck: Positive for: Normal Range of Motion Respiratory/Chest: Positive for: Rhonchi Cardiovascular: Positive for: Regular Rate and Rhythm Abdomen: Positive for: Normal Bowel Sounds. Negative for: Tenderness, Distention Back: Positive for: Decubitus Ulcer Upper Extremity: Positive for: Normal Inspection Lower Extremity: Positive for: Normal Inspection Neurological: Negative for: GCS=15 Psychiatric: Positive for: Alert - Medications Active Medications: Active Medications Generic Name Dose Route Start Last Admin Trade Name Freq PRN Reason Stop Dose Admin Acetaminophen 650 mg 03/02/18 04:23 Tylenol 325mg Tab PO Q6 PRN Fever >100.4 F Acetaminophen 975 mg 03/02/18 21:45 Tylenol 325mg/10.15ml Ud PO Q8 PRN Pain, moderate (4-7) Ascorbic Acid 500 mg 03/05/18 09:00 03/13/18 09:37 Vitamin C 500 Mg Tab PO Not Given BID [facility] Atorvastatin Calcium 10 mg 03/01/18 22:00 03/12/18 21:00 Lipitor PO Not Given HS [facility] Cholecalciferol 1,000 intlu 03/02/18 09:00 03/13/18 09:37 Vitamin D PO Not Given DAILY [facility] Dextrose 0 ml 03/05/18 11:53 03/09/18 00:40 Dextrose 50% Inj IV 50 ml STAT PRN Administration Hypoglycemia Protocol Protocol Dextrose 0 gm 03/05/18 11:53 Glutose 15 PO ONCE PRN Hypoglycemia Protocol Protocol Digoxin 0.125 mg 03/02/18 09:00 03/02/18 10:51 Digoxin PO Not Given DAILY [facility] Dimethicone 1 applic 03/01/18 19:56 03/12/18 20:49 Proshield Plus Skin Protectant TOP 1 applic Q8 PRN Administration Rash Emollient Ointment 1 pkt 03/02/18 09:00 03/13/18 09:37 Vaseline Oint TOP 1 pkt BID [facility] Administration Epoetin Rolo 40,000 unit 03/07/18 09:00 03/07/18 10:16 Procrit SC 40,000 unit WED [facility] Administration Furosemide 40 mg 03/13/18 09:00 03/13/18 09:36 Lasix PO Not Given DAILY [facility] Glucagon 0 mg 03/05/18 11:53 Glucagen Diagnostic Kit IM STAT PRN Hypoglycemia Protocol Protocol Heparin Sodium (Porcine) 5,000 units 03/05/18 17:00 03/07/18 08:42 Heparin SC 5,000 units Q8 [facility] Administration Protocol Gentamicin Sulfate 40 mg/ 51 mls @ 51 mls/hr 03/12/18 10:45 03/13/18 09:45 Sodium Chloride IVPB 51 mls/hr Q24H [facility] Administration Protocol Ceftaroline Fosamil 200 mg/ 100 mls @ 100 mls/hr 03/13/18 09:00 03/13/18 11:40 Sodium Chloride IVPB 100 mls/hr Q12 [facility] Administration Protocol FLUCONAZOLE IN DEXTROSE 100 mg in 50 mls @ 50 mls/hr 03/13/18 11:00 03/13/18 11:40 Fluconazole-Dext 200 Mg/100 Ml IVPB 50 mls/hr DAILY [facility] Administration Protocol Insulin Human Regular 0 units 03/05/18 12:00 03/13/18 11:34 Humulin R SC Not Given ACCU-CHECK [facility] Protocol Ipratropium [place] 0.5 mg 03/01/18 20:00 03/13/18 11:18 Atrovent IH 0.5 mg RQID [facility] Administration Lactobacillus Acidophilus 1 cap 03/02/18 09:00 03/13/18 09:34 Bacid Acidophilus PO Not Given BID [facility] Levalbuterol HCl 0.63 mg 03/03/18 12:00 03/13/18 11:18 Xopenex INH 0.63 mg RQID [facility] Administration Levothyroxine Sodium 40 mcg 03/03/18 06:30 03/13/18 06:11 Synthroid IVP 40 mcg DAILY@0630 [facility] Administration Mirtazapine 7.5 mg 03/01/18 22:00 03/12/18 21:01 Remeron PO Not Given HS [facility] Nystatin 1 applic 03/02/18 17:00 03/13/18 09:36 Nystop Topical Powder TOP 1 appl TID [facility] Administration Pantoprazole Sodium 40 mg 03/03/18 09:00 03/13/18 09:37 Protonix Inj IVP 40 mg DAILY [facility] Administration Sodium Bicarbonate 650 mg 03/12/18 09:00 03/13/18 09:37 Sodium Bicarbonate Tab PO Not Given Q8 [facility] - Patient Studies Lab Studies: Lab Studies 03/13/18 03/13/18 03/13/18 Range/Units 11: 06:00 06:00 WBC 23.8 H (4.8-10.8) K/uL RBC 3.52 L (3.80-5.20) Mil/uL Hgb 9.7 L (12.0-16.0) g/dL Hct 31.3 L (34.0-47.0) % MCV 88.9 (81.0-99.0) fl MCH 27.7 (27.0-31.0) pg MCHC 31.1 L (33.0-37.0) g/dL RDW 20.7 H (11.5-14.5) % Plt Count 127 L D (130-400) K/uL Sodium 138 (132-148) mmol/l Potassium 3.8 (3.6-5.0) MMOL/L Chloride 113 H (98-107) mmol/L Carbon Dioxide 15 L (22-30) mmol/L Anion Gap 14 (10-20) BUN 29 H (7-17) mg/dl Creatinine 1.7 H (0.7-1.2) mg/dl Est GFR ( Amer) 35 Est GFR (Non-Af Amer) 29 POC Glucose (mg/dL) 120 H (65-110) mg/dL Random Glucose 131 H (65-105) mg/dL Calcium 8.0 L (8.4-10.2) mg/dL 03/13/18 03/12/18 03/12/18 Range/Units 05:32 22:30 16:25 WBC (4.8-10.8) K/uL RBC (3.80-5.20) Mil/uL Hgb (12.0-16.0) g/dL Hct (34.0-47.0) % MCV (81.0-99.0) fl MCH (27.0-31.0) pg MCHC (33.0-37.0) g/dL RDW (11.5-14.5) % Plt Count (130-400) K/uL Sodium (132-148) mmol/l Potassium (3.6-5.0) MMOL/L Chloride (98-107) mmol/L Carbon Dioxide (22-30) mmol/L Anion Gap (10-20) BUN (7-17) mg/dl Creatinine (0.7-1.2) mg/dl Est GFR ( Amer) Est GFR (Non-Af Amer) POC Glucose (mg/dL) 140 H 139 H 115 H (65-110) mg/dL Random Glucose (65-105) mg/dL Calcium (8.4-10.2) mg/dL Laboratory Results - last 24 hr 03/12/18 03/12/18 03/13/18 16:25 22:30 05:32 WBC RBC Hgb Hct MCV MCH MCHC RDW Plt Count Sodium Potassium Chloride Carbon Dioxide Anion Gap BUN Creatinine Est GFR ( Amer) Est GFR (Non-Af Amer) POC Glucose (mg/dL) 115 H 139 H 140 H Random Glucose Calcium 03/13/18 03/13/18 03/13/18 06:00 06:00 11:15 WBC 23.8 H RBC 3.52 L Hgb 9.7 L Hct 31.3 L MCV 88.9 MCH 27.7 MCHC 31.1 L RDW 20.7 H Plt Count 127 L D Sodium 138 Potassium 3.8 Chloride 113 H Carbon Dioxide 15 L Anion Gap 14 BUN 29 H Creatinine 1.7 H Est GFR ( Amer) 35 Est GFR (Non-Af Amer) 29 POC Glucose (mg/dL) 120 H Random Glucose 131 H Calcium 8.0 L Fingerstick Blood Sugar Results: 120 Critical Care Progress Note - Nutrition Nutrition: Nutrition Category Date Time Status NPO Diet [DIET] Diets 03/03/18 Breakfast Active Assessment/Plan (1) Acute respiratory failure with hypoxemia Current Visit: Yes Status: Acute Priority: High Comment: Successfully extubated Continue IV antibiotics (2) Acute pulmonary edema Current Visit: Yes Status: Acute Priority: High Comment: Continue diuresis, No chest pain, less dyspnea Continue Furosemide (Lasix) 60 mg IV Q12H (3) Pneumonia Current Visit: Yes Status: Acute Priority: High Comment: Tracheal aspirate positive for Enterobacter Gergobacter and yeast Ceftaroline Fosamil 200 mg IVPB Q12 [facility] Fluconazole (Diflucan Iv 100 Mg/50 Ml Ns) IVPB DAILY [facility] (4) Pulmonary hypertension Current Visit: Yes Status: Chronic Priority: High (5) Acute kidney injury Current Visit: Yes Status: Resolved Priority: High
--- NOTE | 2018-03-13 22:04 | CON ---
DATE: 03/13/2018 REFERRING DOCTOR: Andres Browning MD REASON FOR CONSULTATION: Failure to thrive. HISTORY OF PRESENT ILLNESS: This is a 77-year-old female with a history of hypertension, CAD, status post CABG, atrial fibrillation, , B-cell lymphoma, status post chemo, SIADH, bilateral pneumonia. She is a poor historian. GI was called because of the failure to thrive and decreased p.o. intake and need for feeding tube. The patient is currently lying in bed comfortable, nonresponsive, oriented to pain and to her name, otherwise in no apparent distress. PAST MEDICAL HISTORY: As above. PAST SURGICAL HISTORY: As above. MEDICATIONS: Medications have been reviewed. REVIEW OF SYSTEMS: All other systems have been obtained. PHYSICAL EXAMINATION: GENERAL: This is a pleasant elderly appearing female, lying in bed comfortable, in no apparent distress. VITAL SIGNS: Here in the hospital are grossly unremarkable. HEENT: Head: Normocephalic. There are some bruises on the face. LUNGS: Coarse crackles bilaterally. HEART: S1 and S2. ABDOMEN: Soft, distended, fluid wave present. Bowel sounds are present. No rebound. No guarding. RECTAL: Deferred. EXTREMITIES: Pulses felt bilaterally. SKIN: Warm and dry, intact. NEUROLOGIC: A and O x2. LABORATORY DATA: Labs and radiology have been reviewed. WBC is 23.8, hemoglobin is 9.7, hematocrit 31.8, and platelet count is 127. Creatinine is 1.7. CAT scan a few days ago shows diffuse anasarca, bilateral effusions, and ascites. ASSESSMENT AND PLAN: This is a 77-year-old female with multiple medical problems and need for feeding tube. From gastroenterology standpoint, recommend adjusting goals of care. If we are to proceed with the feeding tube, recommend pulmonary input. I also recommend a therapeutic paracentesis as the ascitic fluid will make placing a percutaneous endoscopic gastrostomy tube challenging, if not, impossible. Need to discuss with the family the risks and benefits as well as the goals of care. For now, I would consider nasogastric tube feeds as indicated. Appreciate all consultants' input. Thank you for the consult. Jean Paul Burris MD/ PhD cc: Andres Browning MD
[2018-03-14 05:20] LABS: HEMOGLOBIN 9.5 g/dL (12.0-16.0); LYMPH # 0.6 K/uL (1.0-4.3); LYMPH % 2.7 % (20.0-40.0); MEAN CELL VOLUME 89.2 fl (81.0-99.0); MEAN CORPUSCULAR HEMOGLOBIN 27.5 pg (27.0-31.0); MEAN CORPUSCULAR HGB CONC 30.8 g/dL (33.0-37.0); MEAN PLATELET VOLUME 11.5 fl (7.2-11.7); MONO # 0.6 K/uL (0.0-0.8); NEUT % 94.3 % (50.0-75.0); NRBC % 0.5 % (0.0-0.0); PLATELET COUNT 123 K/uL (130-400); RBC 3.45 Mil/uL (3.80-5.20); RED CELL DISTRIBUTION WIDTH 21.3 % (11.5-14.5); WHITE BLOOD COUNT 21.2 K/uL (4.8-10.8)
[2018-03-14 05:42] LABS: ALB/GLOB RATIO 1.1 (1.0-2.1); CALCIUM 8.2 mg/dL (8.4-10.2)
[2018-03-14] MEDS ORDERED: Magnesium Sulfate 1 gm in D5W 1 GM/100 ML BAG IVPB ONE (05:59)
[2018-03-14] MEDS: Insulin Regular 100 units/ml SC SCH ×3 (06:05→16:46)
[2018-03-14] MEDS: Proshield Plus GEL TOP PRN (06:14)
[2018-03-14] MEDS: Levothyroxine 100 mcg (0.1 mg) Inj IVP SCH (06:25)
[2018-03-14] MEDS: Levalbuterol 0.63 MG/3 ML Inhal Soln UD INH SCH ×4 (07:32→19:31)
[2018-03-14] MEDS: Ipratropium 0.02% Inhal Soln (0.5 mg/2.5 ml) UD IH SCH ×4 (07:33→19:30)
--- NOTE | 2018-03-14 08:12 | CP.PCM.PN ---
<Ran Dennison - Last Filed: 03/14/18 11:52> Subjective - Date & Time of Evaluation Date of Evaluation: 03/14/18 Time of Evaluation: 11:52 - Subjective Subjective: Patient seen and examined at bedside this morning. Patient still refusing to have mouth cleaned. Patient attempting inaudible speech and partially opens eyes to stimulus. Patient pending PEG placement. Objective - Vital Signs/Intake and Output Vital Signs (last 24 hours): Temp Pulse Resp BP Pulse Ox 97.3 F L 97 H 25 H 115/51 L 98 03/13/18 16:00 03/14/18 06:00 03/14/18 06:00 03/14/18 06:00 03/14/18 06:00 Intake and Output: 03/14/18 03/14/18 06:59 18:59 Intake Total 112 Balance 112 - Medications Medications: Current Medications Acetaminophen (Tylenol 325mg Tab) 650 mg PO Q6 PRN PRN Reason: Fever >100.4 F Acetaminophen (Tylenol 325mg/10.15ml Ud) 975 mg PO Q8 PRN PRN Reason: Pain, moderate (4-7) Ascorbic Acid (Vitamin C 500 Mg Tab) 500 mg PO BID [facility] Last Admin: 03/13/18 17:07 Dose: Not Given Atorvastatin Calcium (Lipitor) 10 mg PO HS [facility] Last Admin: 03/13/18 22:24 Dose: Not Given Cholecalciferol (Vitamin D) 1,000 intlu PO DAILY [facility] Last Admin: 03/13/18 09:37 Dose: Not Given Dextrose (Dextrose 50% Inj) 0 ml IV STAT PRN; Protocol PRN Reason: Hypoglycemia Protocol Last Admin: 03/09/18 00:40 Dose: 50 ml Dextrose (Glutose 15) 0 gm PO ONCE PRN; Protocol PRN Reason: Hypoglycemia Protocol Digoxin (Digoxin) 0.125 mg PO DAILY [facility] Last Admin: 03/02/18 10:51 Dose: Not Given Dimethicone (Proshield Plus Skin Protectant) 1 applic TOP Q8 PRN PRN Reason: Rash Last Admin: 03/14/18 06:14 Dose: 1 applic Emollient Ointment (Vaseline Oint) 1 pkt TOP BID [facility] Last Admin: 03/13/18 17:07 Dose: 1 pkt Epoetin Rolo (Procrit) 40,000 unit SC WED [facility] Last Admin: 03/07/18 10:16 Dose: 40,000 unit Glucagon (Glucagen Diagnostic Kit) 0 mg IM STAT PRN; Protocol PRN Reason: Hypoglycemia Protocol Heparin Sodium (Porcine) (Heparin) 5,000 units SC Q8 [facility]; Protocol Last Admin: 03/07/18 08:42 Dose: 5,000 units Gentamicin Sulfate 40 mg/ (Sodium Chloride) 51 mls @ 51 mls/hr IVPB Q24H [facility]; Protocol Last Admin: 03/13/18 09:45 Dose: 51 mls/hr Ceftaroline Fosamil 200 mg/ (Sodium Chloride) 100 mls @ 100 mls/hr IVPB Q12 [facility]; Protocol Last Admin: 03/13/18 20:26 Dose: 100 mls/hr FLUCONAZOLE IN DEXTROSE (Fluconazole-Dext 200 Mg/100 Ml) 100 mg in 50 mls @ 50 mls/hr IVPB DAILY [facility]; Protocol Last Admin: 03/13/18 11:40 Dose: 50 mls/hr Potassium Chloride (Potassium Chloride 20 Meq/100 Ml) 100 mls @ 50 mls/hr IVPB Q2 [facility] Stop: 03/14/18 11:59 Insulin Human Regular (Humulin R) 0 units SC ACCU-CHECK [facility]; Protocol Last Admin: 03/14/18 06:05 Dose: Not Given Ipratropium [place] (Atrovent) 0.5 mg IH RQID [facility] Last Admin: 03/14/18 07:33 Dose: 0.5 mg Lactobacillus Acidophilus (Bacid Acidophilus) 1 cap PO BID [facility] Last Admin: 03/13/18 17:05 Dose: Not Given Levalbuterol HCl (Xopenex) 0.63 mg INH RQID [facility] Last Admin: 03/14/18 07:32 Dose: 0.63 mg Levothyroxine Sodium (Synthroid) 40 mcg IVP DAILY@0630 [facility] Last Admin: 03/14/18 06:25 Dose: 40 mcg Mirtazapine (Remeron) 7.5 mg PO HS [facility] Last Admin: 03/13/18 22:24 Dose: Not Given Nystatin (Nystop Topical Powder) 1 applic TOP TID [facility] Last Admin: 03/13/18 17:06 Dose: 1 appl Pantoprazole Sodium (Protonix Inj) 40 mg IVP DAILY [facility] Last Admin: 03/13/18 09:37 Dose: 40 mg Sodium Bicarbonate (Sodium Bicarbonate Tab) 650 mg PO Q8 [facility] Last Admin: 03/14/18 01:55 Dose: Not Given - Labs Labs: 03/14/18 04:30 03/14/18 04:30 PT 11.2 Seconds (9.8-13.1) 03/06/18 04:30 INR 1.0 03/06/18 04:30 APTT 41.3 Seconds (25.6-37.1) H 03/06/18 04:30 - Constitutional Appears: No Acute Distress - Head Exam Additional comments: superficial skin breakdown on bilateral cheeks on face due to venturi mask - Eye Exam Eye Exam: Normal appearance - ENT Exam ENT Exam: Mucous Membranes Dry - Respiratory Exam Respiratory Exam: Decreased Breath Sounds, Rhonchi. absent: Wheezes, Respiratory Distress - Cardiovascular Exam Cardiovascular Exam: Irregular Rhythm Additional comments: distant - GI/Abdominal Exam GI & Abdominal Exam: Soft Additional comments: patient winces w/ palpation - Extremities Exam Extremities Exam: Pedal Edema. absent: Calf Tenderness - Neurological Exam Neurological Exam: Awake. absent: Alert, Oriented x3 - Skin Skin Exam: Dry Assessment and Plan - Assessment and Plan (Free Text) Assessment: 77 y/o woman w/ pmh of HTN, CAD s/p CABG, atrial fibrillation (not on anticoagulation due to thrombocytopenia), B cell lymphoma, MDS s/p chemo with pancytopenia , SIADH was admitted to [facility] for evaluation and treatment of bilateral pneumonia and possible c.diff. Pt went into respiratory failure and was placed on mechanical ventilation on 03/02. Pt is DNR/DNI as discussed with family. Plan: Respiratory Failure - Extubated - O2 100% NC - removes venti mask - Nasal cannula @ 4L - Pulmonology, Dr. Vazquez, recommendations appreciated Sepsis - Improving. Afebrile, Leukocytosis 21.2 Lactic Acid 1.6, Metabolic Acidosis apparent in ABG. - X-Ray (03/01): Limited left pleural effusion stable. Small right pleural effusion not excluded. Borderline pulmonary vascular congestion. - Cxray (03/06): Improvement seen in R pleural effusion. - Wound CX (Sacral Decubitus Ulcer): Growing MDR Klebsiella Pneu (Sensitive to Gentamycin) & Vanco Resistant Enterococcus Faecium (sensitive to Zyvox) - Trach Asp Cx: Yeast species, Trach Asp Cx (03/07): GNR,Yeast - IVF D5 NS @ 40 mL/hr - S/P Meropenem 1gm IV Q8 x 1 day - given 1 dose of cefepime 0.[address] Suggs - C/W Ceftaroline 3000mg q12 (Day 12) - C/W Gentamycin 60mg/50cc q24hr (Day 7), held due to elevated gentamicin trough - DC Zyvox 600mg in D5W today (Day 3, HELD due to thrombocytopenia) - C/W Flucanazole 100mg daily (Day 10) - Discontinue Hydrocortisone, Vitamin C, and Thiamine as pt is no longer in septic shock - ID Dr. Pelletier on board Distended Abdomen - CT Abdomen: Moderate Ascites - C/W Diuresis - Continue OG feeds Anascara - Third spacing secondary to fluid resuscitation w/ negative fluid balance vs severe protein malnutrition - S/P Albumin and Diuresis w/ Lasix 60mg IV q12 Decubitus ulcer - Wound care on case, reconsulted for wound care of right cheek - Re-Positioning every 2 hour Hyperglycemia - No hx of DM - Likely secondary to IV Steroids. Hydrocortisone discontinued - Levemir discontinued B-cell lymphoma / MDS (myelodysplastic syndrome) - On chemo - F/u Hematology/oncology consult Dr De Dios - Continue with Procrit Chronic A-fib - All antihypertensive held due to patients low blood pressure - no anticoagulation due to thrombocytopenia (Stable) COPD chronic - c/w Atrovent and Xopenex - Tessala Perles - Incentive Shoaib Hypothyroid - Chronic, controlled - C/W Levothyroxine 75mcg daily CKD stage III - stable Hearing loss - possible medication induced or age related DVT PPX - SCD's for now, thrombocytopenia GI ppx - Protonix 40mg PO daily Code status: DNR/DNI daughter declines hospice care daughter agrees to PEG placement, GI consulted <Malu Berrios - Last Filed: 03/14/18 18:34> Objective - Vital Signs/Intake and Output Vital Signs (last 24 hours): Temp Pulse Resp BP Pulse Ox 96.2 F L 99 H 26 H 127/53 L 100 03/14/18 16:00 03/14/18 16:00 03/14/18 16:00 03/14/18 16:00 03/14/18 16:00 Intake and Output: 03/14/18 03/14/18 06:59 18:59 Intake Total 112 10 Output Total 150 Balance 112 -140 - Medications Medications: Current Medications Acetaminophen (Tylenol 325mg Tab) 650 mg PO Q6 PRN PRN Reason: Fever >100.4 F Acetaminophen (Tylenol 325mg/10.15ml Ud) 975 mg PO Q8 PRN PRN Reason: Pain, moderate (4-7) Dextrose (Dextrose 50% Inj) 0 ml IV STAT PRN; Protocol PRN Reason: Hypoglycemia Protocol Last Admin: 03/09/18 00:40 Dose: 50 ml Dextrose (Glutose 15) 0 gm PO ONCE PRN; Protocol PRN Reason: Hypoglycemia Protocol Digoxin (Digoxin) 0.125 mg PO DAILY [facility] Last Admin: 03/02/18 10:51 Dose: Not Given Dimethicone (Proshield Plus Skin Protectant) 1 applic TOP Q8 PRN PRN Reason: Rash Last Admin: 03/14/18 06:14 Dose: 1 applic Emollient Ointment (Vaseline Oint) 1 pkt TOP BID [facility] Last Admin: 03/14/18 16:48 Dose: 1 pkt Epoetin Rolo (Procrit) 40,000 unit SC WED [facility] Last Admin: 03/14/18 10:15 Dose: 40,000 unit Glucagon (Glucagen Diagnostic Kit) 0 mg IM STAT PRN; Protocol PRN Reason: Hypoglycemia Protocol Heparin Sodium (Porcine) (Heparin) 5,000 units SC Q8 [facility]; Protocol Last Admin: 03/07/18 08:42 Dose: 5,000 units Gentamicin Sulfate 40 mg/ (Sodium Chloride) 51 mls @ 51 mls/hr IVPB Q24H [facility]; Protocol Last Admin: 03/14/18 11:43 Dose: 51 mls/hr Ceftaroline Fosamil 200 mg/ (Sodium Chloride) 100 mls @ 100 mls/hr IVPB Q12 [facility]; Protocol Last Admin: 03/14/18 09:01 Dose: 100 mls/hr FLUCONAZOLE IN DEXTROSE (Fluconazole-Dext 200 Mg/100 Ml) 100 mg in 50 mls @ 50 mls/hr IVPB DAILY [facility]; Protocol Last Admin: 03/14/18 08:54 Dose: 50 mls/hr Dextrose/Lactated Ringer's (Dextrose 5%/Lactated Ringer's) 1,000 mls @ 150 mls/hr IV .Q6H40M [facility] Stop: 03/15/18 12:01 Last Admin: 03/14/18 12:31 Dose: 150 mls/hr Insulin Human Regular (Humulin R) 0 units SC ACCU-CHECK [facility]; Protocol Last Admin: 03/14/18 16:46 Dose: Not Given Ipratropium [place] (Atrovent) 0.5 mg IH RQID [facility] Last Admin: 03/14/18 15:29 Dose: 0.5 mg Levalbuterol HCl (Xopenex) 0.63 mg INH RQID [facility] Last Admin: 03/14/18 15:29 Dose: 0.63 mg Levothyroxine Sodium (Synthroid) 40 mcg IVP DAILY@0630 [facility] Last Admin: 03/14/18 06:25 Dose: 40 mcg Nystatin (Nystop Topical Powder) 1 applic TOP TID [facility] Last Admin: 03/14/18 16:48 Dose: 1 appl Pantoprazole Sodium (Protonix Inj) 40 mg IVP DAILY [facility] Last Admin: 03/14/18 08:59 Dose: 40 mg Sodium Bicarbonate (Sodium Bicarbonate Tab) 650 mg PO Q8 [facility] Last Admin: 03/14/18 16:47 Dose: Not Given - Labs Labs: 03/14/18 04:30 03/14/18 04:30 PT 11.2 Seconds (9.8-13.1) 03/06/18 04:30 INR 1.0 03/06/18 04:30 APTT 41.3 Seconds (25.6-37.1) H 03/06/18 04:30 Attending/Attestation - Attestation I have personally seen and examined this patient.: Yes I have fully participated in the care of the patient.: Yes I have reviewed all pertinent clinical information, including history, physical exam and plan: Yes Notes (Text): Additional Note : Pt would not allow NGT placement , would not allow even to have mouth cleaned. Has been pulling off Nasal Cannula Discussed with Dr Burris PEG placement however given large Ascites may not be feasible Family meeting scheduled for tomorrow at 8:30 am to discuss prognosis and further plan of treatment
[2018-03-14] MEDS: Lactobacillus Acidophilus 500 MU Cap PO SCH (08:52)
[2018-03-14] MEDS: PIGGYBACK IVPB SCH (08:54)
[2018-03-14] MEDS: [UNRECOGNIZED DRUG - OTHER] IVPB SCH (08:54)
[2018-03-14] MEDS: Petrolatum UD PAK TOP SCH ×2 (09:01→16:48)
[2018-03-14] MEDS: Cholecalciferol 1,000 INTLU TAB PO SCH (09:02)
--- NOTE | 2018-03-14 09:28 | CP.PCM.PN ---
Subjective - Date & Time of Evaluation Date of Evaluation: 03/14/18 Time of Evaluation: 09:26 - Subjective Subjective: Record reviewed, interim events noted. Discussed with cardiology and gastroenterology. Discussed also with steam tunnel feeder this morning. Hypothermic, warming blanket in place. Oxygenation 99% with nasal canula. Urine output 1200 cc last 24 hoursm HR ~100, BP low normal (no pressor). Leukocytosis has decreased slightly to 21, Hgb stable, plts stable. Resists mouth care. Lying in bed, not interactive, barely opens eyes on contact. Generalized edema, no cyanosis. Oral cavity dry, crusted secretions over tongue and palate. Neck is supple and trachea midline. No dullness on percussion of the anterior chest wall. No palpable subcutaneous emphysema. Breath sounds are present bilaterally, diminished. Bronchial breathing noted RLL region, rhonchi LLL region. No wheezes appreciated. Heart sounds are distant, mildly tachycardic. Abdomen is soft, patient grimaces on palpation in the left flank. Persistent sepsis possibly related to lower respiratory tract infection. Pleural effusions (multifactorial etiology). Decubitus ulcer may also be responsible for ongoing infection. Altered mental status likely metabolic encephalopathy. Poor nutritional status with significant hypoproteinemia. CKD appears to be at baseline and stable. Volume overload with generalized 3rd spacing of fluid (incl ascites). Unsure whether there ia an ongoing intra-abdominal process. Continue present medical management at this time. Family meeting to discuss prognosis and further goals of care. Attempt placement of NGT if patient cooperates. May need CT abdomen and paracentesis. DNR and DNI are active. Objective - Vital Signs/Intake and Output Vital Signs (last 24 hours): Temp Pulse Resp BP Pulse Ox 97.3 F L 97 H 25 H 115/51 L 98 03/13/18 16:00 03/14/18 06:00 03/14/18 06:00 03/14/18 06:00 03/14/18 06:00 Intake and Output: 03/13/18 03/14/18 23:59 11:59 Intake Total 108 4 Balance 108 4 - Medications Medications: Current Medications Acetaminophen (Tylenol 325mg Tab) 650 mg PO Q6 PRN PRN Reason: Fever >100.4 F Acetaminophen (Tylenol 325mg/10.15ml Ud) 975 mg PO Q8 PRN PRN Reason: Pain, moderate (4-7) Dextrose (Dextrose 50% Inj) 0 ml IV STAT PRN; Protocol PRN Reason: Hypoglycemia Protocol Last Admin: 03/09/18 00:40 Dose: 50 ml Dextrose (Glutose 15) 0 gm PO ONCE PRN; Protocol PRN Reason: Hypoglycemia Protocol Digoxin (Digoxin) 0.125 mg PO DAILY [facility] Last Admin: 03/02/18 10:51 Dose: Not Given Dimethicone (Proshield Plus Skin Protectant) 1 applic TOP Q8 PRN PRN Reason: Rash Last Admin: 03/14/18 06:14 Dose: 1 applic Emollient Ointment (Vaseline Oint) 1 pkt TOP BID [facility] Last Admin: 03/14/18 09:01 Dose: 1 pkt Epoetin Rolo (Procrit) 40,000 unit SC WED [facility] Last Admin: 03/07/18 10:16 Dose: 40,000 unit Glucagon (Glucagen Diagnostic Kit) 0 mg IM STAT PRN; Protocol PRN Reason: Hypoglycemia Protocol Heparin Sodium (Porcine) (Heparin) 5,000 units SC Q8 [facility]; Protocol Last Admin: 03/07/18 08:42 Dose: 5,000 units Gentamicin Sulfate 40 mg/ (Sodium Chloride) 51 mls @ 51 mls/hr IVPB Q24H [facility]; Protocol Last Admin: 03/13/18 09:45 Dose: 51 mls/hr Ceftaroline Fosamil 200 mg/ (Sodium Chloride) 100 mls @ 100 mls/hr IVPB Q12 [facility]; Protocol Last Admin: 03/14/18 09:01 Dose: 100 mls/hr FLUCONAZOLE IN DEXTROSE (Fluconazole-Dext 200 Mg/100 Ml) 100 mg in 50 mls @ 50 mls/hr IVPB DAILY [facility]; Protocol Last Admin: 03/14/18 08:54 Dose: 50 mls/hr Potassium Chloride (Potassium Chloride 20 Meq/100 Ml) 100 mls @ 50 mls/hr IVPB Q2 [facility] Stop: 03/14/18 11:59 Insulin Human Regular (Humulin R) 0 units SC ACCU-CHECK [facility]; Protocol Last Admin: 03/14/18 06:05 Dose: Not Given Ipratropium [place] (Atrovent) 0.5 mg IH RQID [facility] Last Admin: 03/14/18 07:33 Dose: 0.5 mg Levalbuterol HCl (Xopenex) 0.63 mg INH RQID [facility] Last Admin: 03/14/18 07:32 Dose: 0.63 mg Levothyroxine Sodium (Synthroid) 40 mcg IVP DAILY@0630 [facility] Last Admin: 03/14/18 06:25 Dose: 40 mcg Nystatin (Nystop Topical Powder) 1 applic TOP TID [facility] Last Admin: 03/14/18 08:55 Dose: 1 appl Pantoprazole Sodium (Protonix Inj) 40 mg IVP DAILY [facility] Last Admin: 03/14/18 08:59 Dose: 40 mg Sodium Bicarbonate (Sodium Bicarbonate Tab) 650 mg PO Q8 [facility] Last Admin: 03/14/18 09:00 Dose: Not Given - Labs Labs: 03/14/18 04:30 03/14/18 04:30 PT 11.2 Seconds (9.8-13.1) 03/06/18 04:30 INR 1.0 03/06/18 04:30 APTT 41.3 Seconds (25.6-37.1) H 03/06/18 04:30 Assessment and Plan (1) Bronchopneumonia Status: Acute (2) Sacral decubitus ulcer Status: Acute (3) Toxic metabolic encephalopathy Status: Acute (4) B-cell lymphoma Status: Chronic (5) COPD (chronic obstructive pulmonary disease) Status: Chronic (6) Thrombocytopenia Status: Acute
--- NOTE | 2018-03-14 09:40 | CP.PCM.PN ---
Subjective - Date & Time of Evaluation Date of Evaluation: 03/14/18 Time of Evaluation: 08:50 - Subjective Subjective: The patient has been lying in bed poorly communicative. She is easily arousable and responds to simple questions by nodding. She has not verbalized her answers and more than 4 months. She is afebrile with a heart rate of 100 bpm in atrial flutter. Her blood pressure was 120/74 mmHg. Pulse oximetry was 97-98% on oxygen supplement by nasal cannula at 3 L/m. Her lab data was noted. Her case was discussed with the pulmonary physician and her admitting physician as well as the manager camp. Her lymphoma and myelodysplastic syndrome at this juncture are mostly in remission requiring maintenance treatment only She has stable coronary artery disease with chronic atrial flutter fibrillation with no evidence of congestive cardiac failure. She continues to have low-grade sepsis for which she is on multiple anti-bi otics. She is severely malnourished and chronically bedridden. A family discussion need to be held regarding the direction of her long-term care. Objective - Vital Signs/Intake and Output Vital Signs (last 24 hours): Temp Pulse Resp BP Pulse Ox 97.3 F L 97 H 25 H 115/51 L 98 03/13/18 16:00 03/14/18 06:00 03/14/18 06:00 03/14/18 06:00 03/14/18 06:00 Intake and Output: 03/14/18 03/14/18 06:59 18:59 Intake Total 112 Balance 112 - Medications Medications: Current Medications Acetaminophen (Tylenol 325mg Tab) 650 mg PO Q6 PRN PRN Reason: Fever >100.4 F Acetaminophen (Tylenol 325mg/10.15ml Ud) 975 mg PO Q8 PRN PRN Reason: Pain, moderate (4-7) Dextrose (Dextrose 50% Inj) 0 ml IV STAT PRN; Protocol PRN Reason: Hypoglycemia Protocol Last Admin: 03/09/18 00:40 Dose: 50 ml Dextrose (Glutose 15) 0 gm PO ONCE PRN; Protocol PRN Reason: Hypoglycemia Protocol Digoxin (Digoxin) 0.125 mg PO DAILY [facility] Last Admin: 03/02/18 10:51 Dose: Not Given Dimethicone (Proshield Plus Skin Protectant) 1 applic TOP Q8 PRN PRN Reason: Rash Last Admin: 03/14/18 06:14 Dose: 1 applic Emollient Ointment (Vaseline Oint) 1 pkt TOP BID [facility] Last Admin: 03/14/18 09:01 Dose: 1 pkt Epoetin Rolo (Procrit) 40,000 unit SC WED [facility] Last Admin: 03/07/18 10:16 Dose: 40,000 unit Glucagon (Glucagen Diagnostic Kit) 0 mg IM STAT PRN; Protocol PRN Reason: Hypoglycemia Protocol Heparin Sodium (Porcine) (Heparin) 5,000 units SC Q8 [facility]; Protocol Last Admin: 03/07/18 08:42 Dose: 5,000 units Gentamicin Sulfate 40 mg/ (Sodium Chloride) 51 mls @ 51 mls/hr IVPB Q24H [facility]; Protocol Last Admin: 03/13/18 09:45 Dose: 51 mls/hr Ceftaroline Fosamil 200 mg/ (Sodium Chloride) 100 mls @ 100 mls/hr IVPB Q12 [facility]; Protocol Last Admin: 03/14/18 09:01 Dose: 100 mls/hr FLUCONAZOLE IN DEXTROSE (Fluconazole-Dext 200 Mg/100 Ml) 100 mg in 50 mls @ 50 mls/hr IVPB DAILY [facility]; Protocol Last Admin: 03/14/18 08:54 Dose: 50 mls/hr Potassium Chloride (Potassium Chloride 20 Meq/100 Ml) 100 mls @ 50 mls/hr IVPB Q2 [facility] Stop: 03/14/18 11:59 Insulin Human Regular (Humulin R) 0 units SC ACCU-CHECK [facility]; Protocol Last Admin: 03/14/18 06:05 Dose: Not Given Ipratropium [place] (Atrovent) 0.5 mg IH RQID [facility] Last Admin: 03/14/18 07:33 Dose: 0.5 mg Levalbuterol HCl (Xopenex) 0.63 mg INH RQID [facility] Last Admin: 03/14/18 07:32 Dose: 0.63 mg Levothyroxine Sodium (Synthroid) 40 mcg IVP DAILY@0630 [facility] Last Admin: 03/14/18 06:25 Dose: 40 mcg Nystatin (Nystop Topical Powder) 1 applic TOP TID [facility] Last Admin: 03/14/18 08:55 Dose: 1 appl Pantoprazole Sodium (Protonix Inj) 40 mg IVP DAILY [facility] Last Admin: 03/14/18 08:59 Dose: 40 mg Sodium Bicarbonate (Sodium Bicarbonate Tab) 650 mg PO Q8 [facility] Last Admin: 03/14/18 09:00 Dose: Not Given - Labs Labs: 03/14/18 04:30 03/14/18 04:30 PT 11.2 Seconds (9.8-13.1) 03/06/18 04:30 INR 1.0 03/06/18 04:30 APTT 41.3 Seconds (25.6-37.1) H 03/06/18 04:30
[2018-03-14] MEDS: Potassium Chloride 20 mEq 100 ML IVPB SCH ×2 (10:13→11:44)
[2018-03-14] MEDS: Epoetin Alfa 40000 UNIT/ml Inj SC SCH (10:15)
[2018-03-14 10:40] LABS: LYMPHOCYTE 5 % (20-50); MONOCYTE 6 % (0-10); MYELOCYTE 1 % (0-0); NEUTROPHIL 88 % (42-75); PLATELET ESTIMATE SLIGHTLY DECREASED (NORMAL); TOTAL CELLS COUNTED 100
[2018-03-14 10:42] LABS: ACANTHOCYTES SLIGHT; ANISOCYTOSIS MODERATE; HYPOCHROMIC MODERATE; OVALOCYTES SLIGHT; SCHISTOCYTES SLIGHT; TEARDROP CELLS SLIGHT
--- NOTE | 2018-03-14 11:10 | CP.CCUPN ---
CCU Subjective - Physician Review Subjective (Free Text): Eyes preferentially closed, responds with one word answers, denies any pain, refusing local care, mouth open while breathing, no other distress. Other vitals and I/O's reviewed. No fever spikes last 24H, but has been relatively hypothermic with Temps 93-95F. SBPs 140s - 110s, HR 91 in chronic A Fib. ROS: No other pertinent negs or positives on 10+ system review. PMSFH: All other Nursing and physician documentation reviewed to date; no new pertinent info noted relevant to current medical problems. EXAM- HEENT: no icterus, no gaze preference, Pupils 3 mm and reactive NECK: No JVD visible, supple, carotids equal upstroke bilat/no bruit, trach stoma intact CHEST: decreased BS at the bases, no wheezes audible; R upper chest allan-cath intact, no tenderness or erythema. HEART: irregular, distant, tachy S1S2, no rubs ABD: softly and nontender, no tympany, no guarding, no organomegaly, BS hypoactive. EXT: ++++ LE edema, no calf tenderness or palpable cords, distal pulses intact and symmetrical. Well-healed bilat TKR scars. NEURO: moves all extremities spontaneously. SKIN: no rashes, warm and dry LABS: WBC= 21.2 HGB= 9.5 PLTs= 123K Na= 139 K= 3.5 XZ=325 HCO3= 5 BUN/Cr= 29/1.7 BS= 118 CXR: progressive improvement from 03/07- film- ETT above isaiah, in bilateral basilar congestive interstitial changes, no gross consolidation (my interp). IMPRESSION / MAJOR PROBLEMS NOW: 1. Acute Hypoxic Resp Failure 2. Pulm edema, r/o underlying Basilar Pneumonia 3. Acute on Chronic CKD 4. Thrombocytopenia, r/o Drug Induced. 5. Chronic A Fib with RVR (no AC-low plts) 6. Uncontrolled DM II 7. B-Cell Lymphoma and MDS, was on Chemotx. PLAN: 1. Appears moribund again, very depressed mood, has been on Remeron. Refusing mouth care, has several dry and caked-lesions / mucous over tongue and upper palate. 2. No effect from oral sodium bicarb tabs, would hydrate with D5LR at 150ml/hr over the next 24H. 3. Consideration for PEG noted to increase nutritional support. Family has ref used Hospice eval. 4. Platelet counts have improved. 5. WBC elevated but slowly improving, no new organisms isolated.
[2018-03-14] MEDS: Gentamicin 40 MG in Sodium Chloride 0.9% 50 ML IVPB SCH (11:43)
[2018-03-14] MEDS: Dextrose 5%/Lactated Ringer's 1,000 ML IV SCH ×2 (12:31→19:00)
--- NOTE | 2018-03-14 17:41 | CP.PCM.PN ---
Subjective - Date & Time of Evaluation Date of Evaluation: 03/14/18 Time of Evaluation: 17:30 - Subjective Subjective: I D NOTE PQTIENT RESPONDS BUT BRIEFLY WILL NOT ALLOW ORAL CARE.NG TUBE PLACEMENT MOUTH BREATHING ,HYPOTHERMIC HAS MULTIPLE MDR BACTERIA SIGNIFICANT DEPENDENT EDEMA(ANASARCA) FAMILY MEETING SCHEDULED FOR TOMORROW Objective - Vital Signs/Intake and Output Vital Signs (last 24 hours): Temp Pulse Resp BP Pulse Ox 96.2 F L 99 H 26 H 127/53 L 100 03/14/18 16:00 03/14/18 16:00 03/14/18 16:00 03/14/18 16:00 03/14/18 16:00 Intake and Output: 03/14/18 03/14/18 06:59 18:59 Intake Total 112 10 Output Total 150 Balance 112 -140 - Medications Medications: Current Medications Acetaminophen (Tylenol 325mg Tab) 650 mg PO Q6 PRN PRN Reason: Fever >100.4 F Acetaminophen (Tylenol 325mg/10.15ml Ud) 975 mg PO Q8 PRN PRN Reason: Pain, moderate (4-7) Dextrose (Dextrose 50% Inj) 0 ml IV STAT PRN; Protocol PRN Reason: Hypoglycemia Protocol Last Admin: 03/09/18 00:40 Dose: 50 ml Dextrose (Glutose 15) 0 gm PO ONCE PRN; Protocol PRN Reason: Hypoglycemia Protocol Digoxin (Digoxin) 0.125 mg PO DAILY [facility] Last Admin: 03/02/18 10:51 Dose: Not Given Dimethicone (Proshield Plus Skin Protectant) 1 applic TOP Q8 PRN PRN Reason: Rash Last Admin: 03/14/18 06:14 Dose: 1 applic Emollient Ointment (Vaseline Oint) 1 pkt TOP BID [facility] Last Admin: 03/14/18 16:48 Dose: 1 pkt Epoetin Rolo (Procrit) 40,000 unit SC WED [facility] Last Admin: 03/14/18 10:15 Dose: 40,000 unit Glucagon (Glucagen Diagnostic Kit) 0 mg IM STAT PRN; Protocol PRN Reason: Hypoglycemia Protocol Heparin Sodium (Porcine) (Heparin) 5,000 units SC Q8 [facility]; Protocol Last Admin: 03/07/18 08:42 Dose: 5,000 units Gentamicin Sulfate 40 mg/ (Sodium Chloride) 51 mls @ 51 mls/hr IVPB Q24H [facility]; Protocol Last Admin: 03/14/18 11:43 Dose: 51 mls/hr Ceftaroline Fosamil 200 mg/ (Sodium Chloride) 100 mls @ 100 mls/hr IVPB Q12 [facility]; Protocol Last Admin: 03/14/18 09:01 Dose: 100 mls/hr FLUCONAZOLE IN DEXTROSE (Fluconazole-Dext 200 Mg/100 Ml) 100 mg in 50 mls @ 50 mls/hr IVPB DAILY [facility]; Protocol Last Admin: 03/14/18 08:54 Dose: 50 mls/hr Dextrose/Lactated Ringer's (Dextrose 5%/Lactated Ringer's) 1,000 mls @ 150 mls/hr IV .Q6H40M [facility] Stop: 03/15/18 12:01 Last Admin: 03/14/18 12:31 Dose: 150 mls/hr Insulin Human Regular (Humulin R) 0 units SC ACCU-CHECK [facility]; Protocol Last Admin: 03/14/18 16:46 Dose: Not Given Ipratropium [place] (Atrovent) 0.5 mg IH RQID [facility] Last Admin: 03/14/18 15:29 Dose: 0.5 mg Levalbuterol HCl (Xopenex) 0.63 mg INH RQID [facility] Last Admin: 03/14/18 15:29 Dose: 0.63 mg Levothyroxine Sodium (Synthroid) 40 mcg IVP DAILY@0630 [facility] Last Admin: 03/14/18 06:25 Dose: 40 mcg Nystatin (Nystop Topical Powder) 1 applic TOP TID [facility] Last Admin: 03/14/18 16:48 Dose: 1 appl Pantoprazole Sodium (Protonix Inj) 40 mg IVP DAILY [facility] Last Admin: 03/14/18 08:59 Dose: 40 mg Sodium Bicarbonate (Sodium Bicarbonate Tab) 650 mg PO Q8 [facility] Last Admin: 03/14/18 16:47 Dose: Not Given - Labs Labs: 03/14/18 04:30 03/14/18 04:30 PT 11.2 Seconds (9.8-13.1) 03/06/18 04:30 INR 1.0 03/06/18 04:30 APTT 41.3 Seconds (25.6-37.1) H 03/06/18 04:30
--- NOTE | 2018-03-14 22:00 | CP.PCM.PRO ---
Pronouncement of Note - Clinical Findings Physical Exam: No Response Verbal/Painful Stimuli, Absent Peripheral Puls es{Carotid & Femoral}, Absent Heart & Breath Sounds, No Pupillary Light Reflex, Pupils Fixed & Dilated, Absence of Vital Signs - Pronouncement Time Time of Pronouncement of : 21:44 - Notifications Pronouncement Notifications: Atending Notified Film Painter Notified: No - Autopsy Autopsy Requested: No - [place] [id number]
[2018-03-15 00:54] VITALS: BP 117/59; PULSE 101; RESP 9; TEMP 96.4; O2SAT 100
--- NOTE | 2018-03-15 06:59 | CP.PCM.DIS ---
Provider - Provider Date of Admission: 03/01/18 19:20 Attending physician: Andres Browning MD Consults: 03/01/18 21:35 Wound Care [Nursing Referral for Wound Care] Routine Comment: Physician Instructions: Reason For Exam: sacral decub and excoriation Time Spent in preparation of Discharge (in minutes): 15 Diagnosis - Discharge Diagnosis (1) Acute on chronic systolic congestive heart failure Status: Acute (2) Acute respiratory failure with hypoxemia Status: Acute Priority: High (3) Bronchopneumonia Status: Acute Priority: High (4) Atrial fibrillation Status: Chronic Priority: High (5) B-cell lymphoma Status: Chronic Priority: High (6) COPD (chronic obstructive pulmonary disease) Status: Chronic Priority: High (7) Chronic kidney disease (CKD) Status: Chronic Priority: High (8) Acute kidney injury Status: Resolved Priority: High Hospital Course - Lab Results Lab Results: Micro Results 03/07/18 13:40 Sputum Gram Stain - Final 03/07/18 13:40 Sputum Sputum Culture - Final Enterobacter Gergoviae Yeast Species 03/01/18 17:30 Blood-Venous Blood Culture - Final NO GROWTH AFTER 5 DAYS 03/01/18 17:30 Blood-Venous Gram Stain - Final TEST NOT PERFORMED 03/04/18 18:11 Urine,[place] Urine Culture - Final Yeast Species 03/03/18 14:06 Trachasp Gram Stain - Final 03/03/18 14:06 Trachasp Sputum Culture - Final Yeast Species 03/02/18 23:14 Nose MRSA Culture (Admit) - Final MRSA NOT DETECTED 03/02/18 18:54 Sacral Gram Stain - Final 03/02/18 18:54 Sacral Wound Culture - Final Klebsiella Pneumoniae Ssp Pneu Enterococcus Faecium Most Recent Lab Values WBC 21.2 K/uL (4.8-10.8) H 03/14/18 04:30 RBC 3.45 Mil/uL (3.80-5.20) L 03/14/18 04:30 Hgb 9.5 g/dL (12.0-16.0) L 03/14/18 04:30 Hct 30.8 % (34.0-47.0) L 03/14/18 04:30 MCV 89.2 fl (81.0-99.0) 03/14/18 04:30 MCH 27.5 pg (27.0-31.0) 03/14/18 04:30 MCHC 30.8 g/dL (33.0-37.0) L 03/14/18 04:30 RDW 21.3 % (11.5-14.5) H 03/14/18 04:30 Plt Count 123 K/uL (130-400) L 03/14/18 04:30 MPV 11.5 fl (7.2-11.7) 03/14/18 04:30 Neut % (Auto) 94.3 % (50.0-75.0) H 03/14/18 04:30 Lymph % (Auto) 2.7 % (20.0-40.0) L 03/14/18 04:30 [place] % (Auto) 3.0 % (0.0-10.0) 03/14/18 04:30 Eos % (Auto) 0.0 % (0.0-4.0) 03/14/18 04:30 Baso % (Auto) 0.0 % (0.0-2.0) 03/14/18 04:30 Neut # (Auto) 20.0 K/uL (1.8-7.0) H 03/14/18 04:30 Lymph # (Auto) 0.6 K/uL (1.0-4.3) L 03/14/18 04:30 [place] # (Auto) 0.6 K/uL (0.0-0.8) 03/14/18 04:30 Eos # (Auto) 0.0 K/uL (0.0-0.7) 03/14/18 04:30 Baso # (Auto) 0.0 K/uL (0.0-0.2) 03/14/18 04:30 Total Counted Cancelled 03/07/18 15:16 Neutrophils % (Manual) 88 % (42-75) H 03/14/18 04:30 Band Neutrophils % 1 % (0-2) 03/01/18 17:30 Lymphocytes % (Manual) 5 % (20-50) L 03/14/18 04:30 Reactive Lymphs % Cancelled 03/07/18 15:16 Monocytes % (Manual) 6 % (0-10) 03/14/18 04:30 Eosinophils % (Manual) Cancelled 03/07/18 15:16 Basophils % (Manual) Cancelled 03/07/18 15:16 Metamyelocytes % 1 % (0-0) H 03/01/18 17:30 Myelocytes % 1 % (0-0) H 03/14/18 04:30 Promyelocytes % Cancelled 03/07/18 15:16 Blast Cells % Cancelled 03/07/18 15:16 Plasma Cell % (Manual) Cancelled 03/07/18 15:16 Nucleated RBC % Cancelled 03/07/18 15:16 Hypersegmented Polys Cancelled 03/07/18 15:16 Smudge Cells Cancelled 03/07/18 15:16 Toxic Granulation Present 03/06/18 04:30 Dohle Bodies Cancelled 03/07/18 15:16 Cheri Rods Cancelled 03/07/18 15:16 Platelet Estimate Slightly decreased (NORMAL) L 03/14/18 04:30 Plt Clumps, EDTA Cancelled 03/07/18 15:16 Large Platelets Present 03/09/18 04:20 Giant Platelets Cancelled 03/07/18 15:16 RBC Morphology Cancelled 03/07/18 15:16 Polychromasia Cancelled 03/07/18 15:16 Hypochromasia (manual) Moderate 03/14/18 04:30 Poikilocytosis (manual Moderate 03/09/18 04:20 Basophilic Stippling Cancelled 03/07/18 15:16 Anisocytosis (manual) Moderate 03/14/18 04:30 Microcytosis (manual) Slight 03/09/18 04:20 Macrocytosis (manual) Cancelled 03/07/18 15:16 Spherocytes Cancelled 03/07/18 15:16 Sickle Cells Cancelled 03/07/18 15:16 Target Cells Cancelled 03/07/18 15:16 Tear Drop Cells Slight 03/14/18 04:30 Ovalocytes Slight 03/14/18 04:30 Stomatocytes Cancelled 03/07/18 15:16 Helmet Cells Cancelled 03/07/18 15:16 [place] Bodies Cancelled 03/07/18 15:16 Sarah Cells Slight 03/01/18 17:30 Acanthocytes (Spur) Slight 03/14/18 04:30 Rouleaux Cancelled 03/07/18 15:16 Schistocytes Slight 03/14/18 04:30 PT 11.2 Seconds (9.8-13.1) 03/06/18 04:30 INR 1.0 03/06/18 04:30 APTT 41.3 Seconds (25.6-37.1) H 03/06/18 04:30 pCO2 27 mm/Hg (35-45) L 03/09/18 04:52 pO2 136 mm/Hg (80-100) H 03/09/18 04:52 HCO3 17.2 mmol/L (21-28) L 03/09/18 04:52 ABG pH 7.34 (7.35-7.45) L 03/09/18 04:52 ABG Total CO2 15.4 mmol/L (22-28) L 03/09/18 04:52 ABG O2 Saturation 100.5 % (95-98) H 03/09/18 04:52 ABG O2 Content 12.9 ML/dL (15-23) L 03/09/18 04:52 ABG Base Excess -10.0 mmol/L (-2.0-3.0) L 03/09/18 04:52 ABG Hemoglobin 9.2 g/dL (11.7-17.4) L 03/09/18 04:52 ABG Carboxyhemoglobin 1.8 % (0.5-1.5) H 03/09/18 04:52 POC ABG HHb (Measured) -0.5 % (0.0-5.0) L 03/09/18 04:52 ABG Methemoglobin 1.3 % (0.0-3.0) 03/09/18 04:52 ABG O2 Capacity 12.8 mL/dL (16-24) L 03/09/18 04:52 [place] Test Yes 03/09/18 04:52 VBG pH 7.19 (7.32-7.43) L* 03/01/18 17:45 VBG pCO2 63 mmHg (40-60) H 03/01/18 17:45 VBG HCO3 20.0 mmol/L 03/01/18 17:45 VBG Total CO2 26.0 mmol/L (22-28) 03/01/18 17:45 VBG O2 Sat (Calc) 84.1 % (40-65) H 03/01/18 17:45 VBG Base Excess -5.2 mmol/L (0.0-2.0) L 03/01/18 17:45 VBG Potassium 3.8 mmol/L (3.6-5.2) 03/01/18 17:45 A-a O2 Difference 115.0 mm/Hg 03/09/18 04:52 Hgb O2 Saturation 97.4 % (95.0-98.0) 03/09/18 04:52 Sodium 131.0 mmol/L (132-148) L 03/01/18 17:45 Chloride 100.0 mmol/L (98-107) 03/01/18 17:45 Glucose 221 mg/dL (65-105) H 03/01/18 17:45 Lactate 0.8 mmol/L (0.7-2.1) 03/01/18 17:45 Vent Mode Simv 03/09/18 04:52 Mechanical Rate 14 03/09/18 04:52 FiO2 40.0 % 03/09/18 04:52 Tidal Volume 450 03/09/18 04:52 PEEP 5 03/09/18 04:52 Pressure Support 15 03/09/18 04:52 Crit Value Called To Dr stepan flores 03/01/18 17:45 Crit Value Called By Celia smith hospitalist 03/01/18 17:45 Crit Value Read Back Y 03/01/18 17:45 Blood Gas Notified Time 1752 03/01/18 17:45 Sodium 139 mmol/l (132-148) 03/14/18 04:30 Potassium 3.5 MMOL/L (3.6-5.0) L 03/14/18 04:30 Chloride 115 mmol/L (98-107) H 03/14/18 04:30 Carbon Dioxide 15 mmol/L (22-30) L 03/14/18 04:30 Anion Gap 13 (10-20) 03/14/18 04:30 BUN 29 mg/dl (7-17) H 03/14/18 04:30 Creatinine 1.7 mg/dl (0.7-1.2) H 03/14/18 04:30 Est GFR ( Amer) 35 03/14/18 04:30 Est GFR (Non-Af Amer) 29 03/14/18 04:30 POC Glucose (mg/dL) 155 mg/dL (65-110) H 03/14/18 21:13 Random Glucose 118 mg/dL (65-105) H 03/14/18 04:30 Lactic Acid 1.6 MMOL/L (0.7-2.1) 03/06/18 04:30 Calcium 8.2 mg/dL (8.4-10.2) L 03/14/18 04:30 Phosphorus 4.4 mg/dl (2.5-4.5) 03/14/18 04:30 Magnesium 1.3 MG/DL (1.6-2.3) L 03/14/18 04:30 Total Bilirubin 0.7 mg/dl (0.2-1.3) 03/14/18 04:30 AST 21 U/L (14-36) 03/14/18 04:30 ALT 34 U/L (9-52) 03/14/18 04:30 Alkaline Phosphatase 119 U/L (38-126) 03/14/18 04:30 Troponin I 0.0170 ng/mL (0.00-0.120) 03/02/18 23:11 Total Protein 3.9 G/DL (6.3-8.2) L 03/14/18 04:30 Albumin 2.0 g/dL (3.5-5.0) L 03/14/18 04:30 Globulin 1.8 gm/dL (2.2-3.9) L 03/14/18 04:30 Albumin/Globulin Ratio 1.1 (1.0-2.1) 03/14/18 04:30 Procalcitonin 0.19 NG/ML (0.19-0.49) 03/07/18 04:20 Venous Blood Potassium 3.8 mmol/L (3.6-5.2) 03/01/18 17:45 Urine Color Carola (YELLOW) 03/01/18 18:58 Urine Clarity Cloudy (Clear) 03/01/18 18:58 Urine pH 5.0 (5.0-8.0) 03/01/18 18:58 Ur Specific [place] 1.024 (1.003-1.030) 03/01/18 18:58 Urine Protein 30 mg/dL (NEGATIVE) 03/01/18 18:58 Urine Glucose (UA) Neg mg/dL (Normal) 03/01/18 18:58 Urine Ketones Negative mg/dL (NEGATIVE) 03/01/18 18:58 Urine Blood Moderate (NEGATIVE) 03/01/18 18:58 Urine Nitrate Negative (NEGATIVE) 03/01/18 18:58 Urine Bilirubin Negative (NEGATIVE) 03/01/18 18:58 Urine Urobilinogen 0.2-1.0 mg/dL (0.2-1.0) 03/01/18 18:58 Ur Leukocyte Esterase Trace Shi/uL (Negative) 03/01/18 18:58 Urine RBC (Auto) 17 /hpf (0-3) H 03/01/18 18:58 Urine Microscopic WBC 11 /hpf (0-5) H 03/01/18 18:58 Ur Squamous Epith Cells 1 /hpf (0-5) 03/01/18 18:58 Urine Bacteria Rare (<OCC) 03/01/18 18:58 Gentamicin Trough 2.9 ug/mL (0.0-0.9) H* 03/14/18 04:30 Random Gentamicin 2.6 ug/mL 03/11/18 04:25 C. difficile Tox B Gene Not detected (Not Detected) 03/07/18 13:40 C. difficile Ag & Toxin Negative (NEGATIVE) 03/06/18 10:59 Influenza Typ A,B (EIA) Negative for flu a/b (NEGATIVE) 03/04/18 04:29 Ur L.pneumophila Ag Negative (NEGATIVE) 03/03/18 20:18 Mycoplasma pneumon IgG <=0.90 (<=0.90) 03/03/18 20:18 Mycoplasma pneumon IgM 16 U/mL (<770) 03/03/18 20:18 - Hospital Course Hospital Course: This is a 77 y/o female with MHx significant for CAD/CABG, HTN, DM2, A fib, B cell lymphoma,and MDS who was admitted for b/l pneumonia and respiratory failure and possible C. diff. History was limited on arrival as patient could not provide much information and there were no family members to supplement the history. Patient was started on therapy for PNA but on 03/02 an FOOD BEVERAGE ATTENDANT was called because of respiratory distress and bradycardia. Patient was intubated during the course of the FOOD BEVERAGE ATTENDANT and was transferred to the ICU for further management. Patient respiratory status did improve somewhat initially, and patient was able to be extubated on 03/10. However, over the course of the next several days her overall condition continued to decline. She was initially made DNR on 03/06 which was changed to DNR/DNI on 03/12. On 03/14 patient was noted to go into asystole, and she . Discharge Exam - Head Exam Head Exam: NORMAL INSPECTION - Eye Exam Pupil Exam: Fixed - Respiratory Exam Additional comments: no breath sounds - Cardiovascular Exam Additional comments: no heart sounds - Neurological Exam Additional comments: unresponsive Discharge Plan - Follow Up Plan Condition: FAIR Disposition: WITH WITHOUT AUTOPSY
== END 2018-03-15 03:00 | DRG 870 ==
LOC: H.ER 16:29 → H.ERHOLD 19:20 → H.TEL 03-02 02:38 → H.ICU/CCU 03-02 22:38
PROC: 5A1955Z Respiratory Ventilation, Greater than 96 Consecutive Hours (ICD-10-PCS; principal; 2018-03-02)
PROC: 0BH17EZ Insertion of Endotracheal Airway into Trachea, Via Natural or Artificial Opening (ICD-10-PCS; 2018-03-02)
PROC: 3E02340 Introduction of Influenza Vaccine into Muscle, Percutaneous Approach (ICD-10-PCS; 2018-03-02)
PROC: 3E0G76Z Introduction of Nutritional Substance into Upper GI, Via Natural or Artificial Opening (ICD-10-PCS; 2018-03-04)
DX: A41.9 Sepsis, unspecified organism (principal); J18.0 Bronchopneumonia, unspecified organism; G92 Toxic encephalopathy; J96.01 Acute respiratory failure with hypoxia; R65.21 Severe sepsis with septic shock; E43 Unspecified severe protein-calorie malnutrition; E87.2 Acidosis; E22.2 Syndrome of inappropriate secretion of antidiuretic hormone; C85.10 Unspecified B-cell lymphoma, unspecified site; J44.0 Chronic obstructive pulmonary disease with (acute) lower respiratory infection; N17.9 Acute kidney failure, unspecified; N18.4 Chronic kidney disease, stage 4 (severe); I48.92 Unspecified atrial flutter; Z99.11 Dependence on respirator [ventilator] status; R18.8 Other ascites; L89.150 Pressure ulcer of sacral region, unstageable; I12.9 Hypertensive chronic kidney disease with stage 1 through stage 4 chronic kidney disease, or unspecified chronic kidney disease; I48.2 Chronic atrial fibrillation; E11.22 Type 2 diabetes mellitus with diabetic chronic kidney disease; E11.65 Type 2 diabetes mellitus with hyperglycemia; D46.9 Myelodysplastic syndrome, unspecified; B96.1 Klebsiella pneumoniae [K. pneumoniae] as the cause of diseases classified elsewhere; B95.2 Enterococcus as the cause of diseases classified elsewhere; B96.89 Other specified bacterial agents as the cause of diseases classified elsewhere; D63.8 Anemia in other chronic diseases classified elsewhere; D69.6 Thrombocytopenia, unspecified; I95.89 Other hypotension; R62.7 Adult failure to thrive; Z16.12 Extended spectrum beta lactamase (ESBL) resistance; Z16.21 Resistance to vancomycin; E83.42 Hypomagnesemia; E03.9 Hypothyroidism, unspecified; E78.00 Pure hypercholesterolemia, unspecified; I25.10 Atherosclerotic heart disease of native coronary artery without angina pectoris; I27.20 Pulmonary hypertension, unspecified; G47.33 Obstructive sleep apnea (adult) (pediatric); E78.5 Hyperlipidemia, unspecified; H91.91 Unspecified hearing loss, right ear; Z66 Do not resuscitate; Z23 Encounter for immunization; Z78.1 Physical restraint status; Z74.01 Bed confinement status; Z92.21 Personal history of antineoplastic chemotherapy; Z88.1 Allergy status to other antibiotic agents; Z87.440 Personal history of urinary (tract) infections; Z95.1 Presence of aortocoronary bypass graft; Z95.5 Presence of coronary angioplasty implant and graft; Z96.653 Presence of artificial knee joint, bilateral; Z87.01 Personal history of pneumonia (recurrent); Z87.891 Personal history of nicotine dependence